=== PATIENT | male | born 1945 | race Caucasian/White ===

== ENCOUNTER → 2023-10-18 15:45 | Outpatient (REF) | payer MEDICARE, BC, SELFPAY | LOC: DHCBS HW 15:45 | PROVIDERS: ATTENDING PHYSICIAN Internal Medicine Cardiovascular Disease; FAMILY PHYSICIAN Family Medicine | DX: I50.22 Chronic systolic (congestive) heart failure (principal); I42.9 Cardiomyopathy, unspecified; I35.0 Nonrheumatic aortic (valve) stenosis | CPT/HCPCS: 93306 ==

== ENCOUNTER → 2024-04-12 13:46 | Outpatient (REF) | payer MEDICARE, BC, SELFPAY | LOC: RCS 13:46 | PROVIDERS: ATTENDING PHYSICIAN Internal Medicine Cardiovascular Disease; FAMILY PHYSICIAN Family Medicine | DX: I35.0 Nonrheumatic aortic (valve) stenosis (principal) | CPT/HCPCS: 93306 ==

== ENCOUNTER → 2024-09-08 13:37 | Outpatient (REF) | payer MEDICARE, BC, SELFPAY | LOC: RAD 13:37 | PROVIDERS: ATTENDING PHYSICIAN Family Medicine | DX: I50.22 Chronic systolic (congestive) heart failure (principal) | CPT/HCPCS: 71046 ==

== ENCOUNTER 2024-09-11 14:16 | Inpatient (IN) | payer MEDICARE, BC, SELFPAY ==
[2024-09-11] VITALS (26 sets, daily range): BP systolic 84–121; BP diastolic 33–76; BMI 31.9; BMI 29.0
--- NOTE | 2024-09-11 10:35 | ED.GENMED ---
ED Provider Triage
<Tori Lopez PA-C - Last Filed: 09/11/24 10:52>
-
Patient seen by provider in Triage?: Seen in Triage
78 y/o M
h/o iron deficiencey anemia
sent by PCP for low hg
uknonwn number, he was called by PCP to come in
intermittently sob but no CP
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
will w/u with labs, t+s;
hypotensive in triage
anticipate admission, transfusione
pt is pale
awake and aelrt
hypotensive
History of Present Illness
<Tori Lopez PA-C - Last Filed: 09/11/24 10:52>
General
Chief Complaint: Abnormal Lab Value
Time Seen by Provider: 09/11/24 12:37
<Shahbaz Lopez PA-C - Last Filed: 09/11/24 13:46>
General
Source: patient
History of Present Illness
History of Present Illness:
78-year-old male with past medical history of previous [place], hypertension hyperlipidemia, status post pacemaker/defibrillator placement, insulin-dependent diabetes presenting to the ED at request of PCP due to gradually worsening SAINI and fatigue since
this past . Started on iron supplement Wednesday with no relief. He does note his stools have been darker since starting the iron. Denies any fevers, chills, or infectious symptoms. Also denying any chest pain, palpitations, abdominal pain,
vomiting. Patient does believe he has received a blood transfusion in the past and notes that he has definitely had iron infusions before. He has no other concerns at this time.
Past History
<RALPH Black Last Filed: 09/11/24 10:52>
Past History
ED Past Medical History: Arrthythmia (atrial fibrillation), CAD, CHF, HTN, Hypercholesterolemia, NIDDM, [place], Renal failure and Other (Carotid stenosis, gout, BPH, recurrent epistaxis)
ED Past Surgical History: Cardiac (CABG, PTCA with stent), Cholecystectomy and Other (Carotid endarterectomy)
Social History
Tobacco: Smoker
Alcohol: None
Drug: None
Personal:
Living: with family
Employment: Retired
Family History
Family History: Other (Noncontributory)
Review of Systems
<Shahbaz Lopez PA-C - Last Filed: 09/11/24 13:46>
Review of Systems
All Other Systems: ROS reviewed and negative except as documented in HPI and ROS
Phy Exam
<Shahbaz Lopez PA-C - Last Filed: 09/11/24 13:46>
Physical Exam
Physical Exam:
GENERAL: Alert , in no apparent distress
EYE: clear conjunctiva b/l
HEAD: NCAT
ENT: o/p clr, mmm.
CARDIAC: Regular rate and rhythm .
LUNGS: Clear breath sounds bilaterally, no acute respiratory distress, no wheezes/rales/rhonchi
ABDOMEN: Soft, without focal tenderness, no r/g, no cvat
RECTAL: chaperroned by ED RN Raul, soft light black stool, heme pos, no external hemorrhoids noted
NEUROLOGICAL: Alert and oriented
SKIN: Warm and dry, skin intact.
MUSCULOSKELETAL: well perfused.
PSYCH: Normal and appropriate interaction.
Scores
<Shahbaz Lopez PA-C - Last Filed: 09/11/24 13:46>
Heart Failure Risk
Heart Failure Risk Score: Not Applicable
Heart Score for Chest Pain Patients
STEMI patient?: Not applicable
Withdrawal Assessment of Alcohol
Withdrawal Assessment Completed?: Not applicable
Course
<Tori Lopez PA-C - Last Filed: 09/11/24 10:52>
Orders/Labs/Results
Orders:
Orders
09/11/24 10:38
Electrocardiogram (*1) Urgent
Reason for Study: Shortness of Breath
EKG- Treatment ONCE
09/11/24 10:55
Type+Screen Urgent
Complete Blood Count/With Diff Urgent
Comprehensive Metabolic Panel Urgent
Ferritin Urgent
Iron Urgent
TIBC [Total Iron Binding] Urgent
09/11/24 12:51
Blood Bank Products [* Blood Bank Products] Urgent
Blood Bank Products: *Packed RBC Leuko(PRBC's)
Quantity: 2
Transfuse Today: Yes
Reason: Anemia
09/11/24 13:16
GASTROINTESTINAL CONSULT Routine
Consulting Provider: Margarita Pinzon
Was physician already notified: Yes
09/11/24 13:30
Admit/Transfer Patient As Directed
Co-Sign Provider:
Level of Care: Inpatient admission
Assign to:: Telemetry
Physician / Group: Jomar/hospitalist
Diagnosis: anemia
Reason for Telemetry: Arrhythmia
Date to Stop Telemetry: 09/14/24
Time to Stop Telemetry: 11:00
Reason for Hospitalization: anemia
Expected length of stay greater than two midnights?: Yes
ELOS- Estimated Length of Stay in days: 3
I certify the patient meets the requirements for IP care: Yes
PRN Pain Medication Management As Directed
May give lesser potent ordered pain med per pt: Yes
preference::
Protocol:: Medication orders for pain may be administered in a
manner that supports deferring to patient preference
when the pt is:
- Requesting an ordered lesser potent pain medication.
Least to most potent pain medications are defined
as: acetaminophen < NSAID < tramadol < opioids
(morphine, oxycodone, hydromorphone).
- Requesting a lesser dose of the same medication IF
ORDERED.
- Requesting a less intrusive route of administration
if both routes are prescribed by the provider (PO <
IV).
09/11/24 13:32
Code Status As Directed
Resuscitation Status: Full Code
09/14/24 11:00
DC Protocol for Telemetry ONCE
Abnormal Lab Results
09/11/24
10:55
RBC 1.96 L 10^6/uL
(4.70-6.10)
Hgb 7.1 L g/dL
(13.0-18.0)
Hct 22.8 L %
(39.0-52.0)
MCV 116.3 H fL
(80.0-94.0)
MCH 36.2 H pg
(27.0-31.0)
MCHC 31.1 L g/dL
(33.0-37.0)
RDW 18.2 H %
(11.5-14.5)
Abs Immat Gran (auto) 0.1 H 10^3/uL
(0-0.05)
Absolute Monos (auto) 0.8 H 10^3/uL
(0.1-0.6)
Immature Gran % 0.8 H %
(0-0.5)
Lymphocytes % 20.0 L %
(20.5-51.1)
Monocytes % 9.9 H %
(1.7-9.3)
Sodium 129 L mmol/L
(135-145)
Chloride 94 L mmol/L
(98-107)
BUN 97 H mg/dl
(9-20)
Creatinine 2.5 H mg/dL
(0.7-1.3)
Glucose 164 H mg/dl
(70-99)
Iron 47 L ug/dl
(49-181)
% Saturation 13 L %
(20-50)
Total Protein 5.7 L g/dl
(6.3-8.2)
Albumin 3.2 L g/dl
(3.5-5.0)
Crossmatch IS Only See Detail
09/11/24 10:55
09/11/24 10:55
Vital Signs
Initial and Last Documented VS:
Initial Vital Signs
Temp Pulse Resp Pulse Ox
97.5 F 64 16 100
09/11/24 10:33 09/11/24 10:33 09/11/24 10:33 09/11/24 10:33
Last Documented Vital Signs
Temp Pulse Resp BP Pulse Ox
98 F 61 24 108/63 98
09/11/24 13:34 09/11/24 13:34 09/11/24 13:34 09/11/24 13:34 09/11/24 13:34
<Shahbaz Lopez PA-C - Last Filed: 09/11/24 13:46>
Orders/Labs/Results
Orders:
Orders
09/11/24 10:38
Electrocardiogram (*1) Urgent
Reason for Study: Shortness of Breath
EKG- Treatment ONCE
09/11/24 10:55
Type+Screen Urgent
Complete Blood Count/With Diff Urgent
Comprehensive Metabolic Panel Urgent
Ferritin Urgent
Iron Urgent
TIBC [Total Iron Binding] Urgent
09/11/24 12:51
Blood Bank Products [* Blood Bank Products] Urgent
Blood Bank Products: *Packed RBC Leuko(PRBC's)
Quantity: 2
Transfuse Today: Yes
Reason: Anemia
09/11/24 13:16
GASTROINTESTINAL CONSULT Routine
Consulting Provider: aMrgarita Pinzon
Was physician already notified: Yes
09/11/24 13:30
Admit/Transfer Patient As Directed
Co-Sign Provider:
Level of Care: Inpatient admission
Assign to:: Telemetry
Physician / Group: Jomar/hospitalist
Diagnosis: anemia
Reason for Telemetry: Arrhythmia
Date to Stop Telemetry: 09/14/24
Time to Stop Telemetry: 11:00
Reason for Hospitalization: anemia
Expected length of stay greater than two midnights?: Yes
ELOS- Estimated Length of Stay in days: 3
I certify the patient meets the requirements for IP care: Yes
PRN Pain Medication Management As Directed
May give lesser potent ordered pain med per pt: Yes
preference::
Protocol:: Medication orders for pain may be administered in a
manner that supports deferring to patient preference
when the pt is:
- Requesting an ordered lesser potent pain medication.
Least to most potent pain medications are defined
as: acetaminophen < NSAID < tramadol < opioids
(morphine, oxycodone, hydromorphone).
- Requesting a lesser dose of the same medication IF
ORDERED.
- Requesting a less intrusive route of administration
if both routes are prescribed by the provider (PO <
IV).
09/11/24 13:32
Code Status As Directed
Resuscitation Status: Full Code
09/14/24 11:00
DC Protocol for Telemetry ONCE
Abnormal Lab Results
09/11/24
10:55
RBC 1.96 L 10^6/uL
(4.70-6.10)
Hgb 7.1 L g/dL
(13.0-18.0)
Hct 22.8 L %
(39.0-52.0)
MCV 116.3 H fL
(80.0-94.0)
MCH 36.2 H pg
(27.0-31.0)
MCHC 31.1 L g/dL
(33.0-37.0)
RDW 18.2 H %
(11.5-14.5)
Abs Immat Gran (auto) 0.1 H 10^3/uL
(0-0.05)
Absolute Monos (auto) 0.8 H 10^3/uL
(0.1-0.6)
Immature Gran % 0.8 H %
(0-0.5)
Lymphocytes % 20.0 L %
(20.5-51.1)
Monocytes % 9.9 H %
(1.7-9.3)
Sodium 129 L mmol/L
(135-145)
Chloride 94 L mmol/L
(98-107)
BUN 97 H mg/dl
(9-20)
Creatinine 2.5 H mg/dL
(0.7-1.3)
Glucose 164 H mg/dl
(70-99)
Iron 47 L ug/dl
(49-181)
% Saturation 13 L %
(20-50)
Total Protein 5.7 L g/dl
(6.3-8.2)
Albumin 3.2 L g/dl
(3.5-5.0)
Crossmatch IS Only See Detail
09/11/24 10:55
09/11/24 10:55
Vital Signs
Initial and Last Documented VS:
Initial Vital Signs
Temp Pulse Resp Pulse Ox
97.5 F 64 16 100
09/11/24 10:33 09/11/24 10:33 09/11/24 10:33 09/11/24 10:33
Last Documented Vital Signs
Temp Pulse Resp BP Pulse Ox
98 F 61 24 108/63 98
09/11/24 13:34 09/11/24 13:34 09/11/24 13:34 09/11/24 13:34 09/11/24 13:34
<Shahbaz Lopez PA-C - Last Filed: 09/11/24 13:46>
MDM/Problems Addressed
Differential Diagnosis Includes:
Upper versus lower GI bleed, thrombocytopenia, malignancy, anemia of chronic disease, CHF, angina
MDM/Problems Addressed:
78-year-old male presenting to the ER for evaluation of gradually worsening exertional dyspnea and fatigue over the last 4 days, started on iron supplementation and has since noted dark stools. Patient with noted hypotension on arrival in triage,
somewhat improved during my exam. No tachycardia. Patient does have bilateral lower extremity edema which she reports is chronic. Rectal exam showed black stool that was heme positive. I suspect GI bleed to be the cause of patient's current
symptoms. Increased risk for malignancy due to 60+ pack years smoking. Last had colonoscopy in 2019 which did show a couple of rectal and sigmoid polyps. Will consent patient for blood products. Will notify GI. Patient did not take his Xarelto
today and advised he not take this. Cardiology will need to be consulted. Patient to be admitted.
Chronic conditions affecting care: CAD and Kidney disease
<Shahbaz Lopez PA-C - Last Filed: 09/11/24 13:46>
*Pulse Oximetry
Patient hypoxic: no
*Payroll Representative Interpretation
Rate: normal
Rhythm: av sequential
*Critical Care Note
Total Time (30-74mins, 75-104mins- exclusive of procedures): 30
comment:
Critical care statement: A total of 30 minutes of critical care time was provided for this patient. This includes management of unstable vital signs, evaluation of the patient at bedside, reviewing the patient's pertinent medical records, discussion
with consultants, review of old EKGs and review of pertinent medical records. This time with separate from time utilized to perform the aforementioned documented procedures
Data Reviewed
Review of Other/Old Records Reveals: Labs and Records
Source: patient and records
<Shahbaz Lopez PA-C - Last Filed: 09/11/24 13:46>
Patient Management
Discussion with other providers: Hospitalist and Secretary Specialist
Escalation/DeEscalation of care consider admission/obs:
Hospitalist team accepts for continued evaluation and treatment. GI team was also notified and will see the patient in consult
ED Attending Note
<Tori Lopez PA-C - Last Filed: 09/11/24 10:52>
-
Portions of this chart may have been created with voice recognition software.� Occasional wrong word or��sound alike� substitutions may have occurred due to the inherent limitations of voice recognition software.
Discharge Plan
Departure
Patient Disposition: Admit
Date of Disposition: 09/11/24
Time of Disposition: 12:58
Presentation/result/management discussed w/ accepting MD/DO: Hospitalist
Discharge Problem:
Anemia, CKD (chronic kidney disease)
Prescriptions:
No Action
nitroglycerin [Nitrostat] 0.4 MG tablet, sublingual
0.4 mg sublingual [id number] PRN (Reason: chest pain)
Patient Comments:
pt has not needed
allopurinol 100 MG tablet
150 mg PO BID
carvedilol 6.25 MG tablet
3.125 mg PO BID
cyanocobalamin (vitamin B-12) 1,000 MCG tablet
1,000 mcg PO DAILY
atorvastatin 80 mg Tablet
80 mg PO DAILY
brinzolamide 1 % drops,suspension
1 drp BOTH EYES BID@1200,2200
acetaminophen 500 mg Tablet
500 mg PO DAILYPRN PRN (Reason: pain)
ferrous sulfate 325 mg (65 mg iron) Tablet
325 mg PO DAILY@1600
betamethasone dipropionate 0.05 % cream
1 applic TOPICAL BID
furosemide 80 mg Tablet
80 mg PO BID@0800,1600
Vegetable Pill Otc
1 tab PO DAILY
metolazone 2.5 mg Tablet
2.5 mg PO DAILY@1530
spironolactone 25 mg tablet
12.5 mg
colchicine 0.6 mg tablet
0.6 mg PO DAILYPRN PRN (Reason: GOUTY ATTACK)
vitamin E 268 mg (400 unit) Capsule
268 mg PO DAILY
insulin lispro [Admelog SoloStar U-100 Insulin] 100 unit/mL insulin pen
16 - 18 unit SC AC
insulin glargine [Lantus Solostar U-100 Insulin] 100 unit/mL (3 mL) Insulin Pen
20 unit SC HS
apixaban 5 mg Tablet
5 mg PO BID
potassium chloride 20 mEq tablet extended release
40 meq PO BID@0800,1200
fexofenadine 180 mg Tablet
180 mg PO DAILYPRN PRN (Reason: ALLERGIES)
mupirocin 2 % ointment
1 applic TOPICAL BID
potassium chloride 20 mEq tablet extended release
20 meq PO DAILY@1800
Interventions
Interventions:
*Risk Screen - Suicide Last Done: 09/11/24 12:53
*General Assessment Last Done: 09/11/24 12:53
*Neglect/Abuse Screening Last Done: 09/11/24 12:53
Discharge Date and Time
Print Language: UPPER SORBIAN
[2024-09-11 11:05] LABS: % Basophils 0.5 % (0-2); % Eosinophils 2.3 % (0-6); % Immature Granulocytes 0.8 % (0-0.5); % Monocytes 9.9 % (1.7-9.3); % Neutrophils 66.5 % (42.2-75.2); Absolute Eosinophils 0.2 10^3/uL (0-0.7); Absolute Immature Granulocytes 0.1 10^3/uL (0-0.05); Absolute Lymphocytes 1.7 10^3/uL (1.2-3.4); Absolute Monocytes 0.8 10^3/uL (0.1-0.6); Absolute Neutrophils 5.5 10^3/uL (1.4-6.5); Hematocrit 22.8 % (39.0-52.0); Hemoglobin 7.1 g/dL (13.0-18.0); Mean Corp Hgb Conc. 31.1 g/dL (33.0-37.0); Mean Corpuscular Hgb 36.2 pg (27.0-31.0); Mean Corpuscular Volume 116.3 fL (80.0-94.0); Mean Platelet Volume 9.3 fL (7.4-10.4); Nucleated Red Blood Cells % 0.4 % (-); Platelet Count 179 10^3/uL (130-400); Red Blood Cell Count 1.96 10^6/uL (4.70-6.10); Red Cell Dist. Width 18.2 % (11.5-14.5); White Blood Cell Count 8.3 10^3/uL (4.8-10.8)
[2024-09-11 11:26] LABS: ALT (SGPT) 19 U/L (0-50); AST (SGOT) 28 U/L (17-59); Albumin 3.2 g/dl (3.5-5.0); Alkaline Phosphatase 79 U/L (38-126); Blood Urea Nitrogen 97 mg/dl (9-20); Carbon Dioxide 24 mmol/L (22-30); Chloride 94 mmol/L (98-107); Glucose 164 mg/dl (70-99); Iron 47 ug/dl (49-181); Potassium 4.4 mmol/L (3.5-5.1); Sodium 129 mmol/L (135-145); Total Bilirubin 0.4 mg/dl (0.2-1.3); Total Protein 5.7 g/dl (6.3-8.2); eGFR 25.65
[2024-09-11 11:35] LABS: Percent Saturation 13 % (20-50); Total Iron Binding Capacity 354 ug/dl (261-462)
--- NOTE | 2024-09-11 13:06 | HPS.HSE ---
Family Physician
-
Family Physician:
Chief Complaint
-
Dyspnea on exertion
Abnormal outpatient blood work
History of Present Illness
HPI: 78 y/o M with PMH iron deficiency anemia, CHF, ICD in place, severe aortic stenosis, cardiac bypass surgery, HLD, A fib on Xarelto; who was sent in by PCP for low Hgb.
He stated that he has been ill for the past month, first with dental infection, then ear infection, then UTI.
He c/o intermittently SOB, and endorsed to bloody bowel movement recently. He had routine CBC checked with his PCP, and was prompted to come to the ED for low hemoglobin.
Medical History
Past Medical History
Past Medical History: Reports Other
Additional Past Medical History:
atrial fib
coronary artery disease
chf
htn
hld
IDDM
[place]
carotid stenosis
GOUT
BPH
Severe aortic stenosis
Past Surgical History: Reports Other
Additional Past Surgical History:
CABG
stent
cholecystectomy
carotid stenosis
endarectomy
Social History
Tobacco: Smoker (1 pack daily)
Alcohol: Occasional
Drug: None
Personal: Single
Living: With Family
Family History
Family History: Not pertinent
Allergies / Home Medications
Allergies reflects when Allergies were last updated in [facility].
Home Medications with original date entered in [facility]
Allergy/Medication List:
Medications on admission are unable to be verified or confirmed at this time.
Review of Systems
-
Abdomen/GI: Reports See HPI and Black Stools; Denies Abdominal Pain
Physical Exam
Vital Signs
Vital Signs
Temp Pulse Resp BP Pulse Ox
36.4 C 60 27 96/50 98
09/11/24 10:33 09/11/24 12:45 09/11/24 12:45 09/11/24 12:43 09/11/24 12:45
Physical Exam
General: Well Developed, Well Nourished, No Apparent Distress, Comfortable and Conversant
HEENT: NormoCephalic, Moist mucous membranes and Atraumatic
Respiratory: Clear and Non Labored Respirations; No Accessory Resp Muscle Use
Cardiac: S1/S2 and Regular Rhythm; No Murmur or Rub
GI: Soft, Non Tender, Non Distended and Normal Bowel Sounds; No Organomegaly
Rectal: Deferred by Provider
Musculoskeletal: No Clubbing, No Cyanosis, Edema, Left Lower Extremity and Edema, Right Lower Extremity
Skin: No Rash
Neuro: Awake and Alert
Psych: Calm and Intact Judgment/Insight
Laboratory Results
-
09/11/24 10:55
09/11/24 10:55
Laboratory Results
Total Bilirubin 0.4 mg/dl (0.2-1.3) 09/11/24 10:55
AST 28 U/L (17-59) 09/11/24 10:55
ALT 19 U/L (0-50) 09/11/24 10:55
Alkaline Phosphatase 79 U/L (38-126) 09/11/24 10:55
Data Reviewed
-
Lab Data: Labs Reviewed by me
Impression/Plan
-
HPI: 78 y/o M with PMH iron deficiency anemia, CHF, ICD in place, severe aortic stenosis, cardiac bypass surgery, HLD, A fib on Xarelto; who was sent in by PCP for low Hgb.
He stated that he has been ill for the past month, first with dental infection, then ear infection, then UTI.
He c/o intermittently SOB, and endorsed to bloody bowel movement recently. He had routine CBC checked with his PCP, and was prompted to come to the ED for low hemoglobin.
Patient was noted to be hypotensive in the ER initially. His blood pressure improved subsequently. 2 units PRBC ordered for hemoglobin at 7.1.
A/P:
# Symptomatic anemia, possible GI bleed exacerbated by MACHINE ICER Xarelto use
# Iron deficiency anemia
Hemoglobin 7.1, from baseline 9.0
2 unit PRBC ordered
IV iron
GI consulted
Clears for now
Hold prior to admission Xarelto
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
Hold prior to admission Aldactone
Monitor serum creatinine with transfusion
# Hypertension
Improved hypotension from admission
Continue prior to admission Coreg with holding parameter
Monitor blood pressure
# Presumed paroxysmal A-fib on Xarelto MACHINE ICER
# Chronic systolic CHF
# ICD in place
# Severe aortic stenosis
Continue prior to admission Lasix 80 mg twice daily, use IV while in the hospital
# HLD
Lipitor
# Insulin-dependent diabetes
Continue prior to admission Lantus at decreased dose 7 units at bedtime
Cover with sliding scale
DVT ppx: SCD
FC
--- NOTE | 2024-09-11 13:39 | CON.GI ---
Addendum entered and electronically signed by Margarita Galloway Do, MD 09/11/24 16:07:
I saw and examined the patient.
The WIRE DRAWING SETTER's note was reviewed and I agree with the note.
Comment: is a 78yo M with h/o afib on xarelto, , CAD and DM who was told to come to ER by PCP for anemia. In Nov he had tooth infection, then ear infection then UTI. He was on abx and not feeling well. He was seen by PCP Dr Eason who
asked him to come in when noted to be anemic He denies seeing any red or black blood in stools. He of note has h/o iron def anemia in the past for which he's had EGD/colon/capsule in 2017 and more recently by myself EGD/colon 2019. Vitals
reviewed was hypotensive in ER but improved with IVF. blue bleb on lip. NTTP large scar seen. Labs reviewed macrocytic anemia noted.
Impression
- Anemia with FOBT+ stool
Given recurrent h/o anemia and suspect AVMs
Other consideration is ulcer, polyp or ectasia
- Chronic anticoagulation (xarelto last 1/5 PM)
- CAD
- DM
- Pacemaker
- CKD
- HL
- Tobacco use
Recommendations
- Hold AC
- Serial H/H consider transfusion
- IV protonix BID
- CLD
- Plan for EGD/colonoscopy after washout on Wednesday
- Given recurrent issues with GI blood loss consider watchman outpatient bais
Will follow with you
Original Note:
Consultation
-
Date/Time Consultation Requested: 09/11/24
Date/Time Consultation Performed: 09/11/24 1330
Requesting Provider: Dr. Hadley / Shahbaz Lopez PA-C
Performing Provider: Dr. Margarita Pinzon / Naima Ramon PA-C
Reason for Consultation: anemia
Medical History
Chief Complaint / HPI
Chief Complaint: fatigue
History of Present Illness:
This is a 78 year old male with a past medical history of atrial fibrillation (on Xarelto), CAD (s/p CABG, stent), pacemaker/defibrillator, , CHF, DM, HTN, CKD, hyperlipidemia, iron deficiency anemia, tobacco use, and colon polyps who presented to
the ER with worsening fatigue and dyspnea on exertion. He denies any melena or BRBPR, and no abdominal pain. He did complain of mild nausea, no vomiting, heartburn/reflux or dysphagia. He felt increasingly fatigued and lightheaded, but denies
syncope or chest pain. He also denies any fever or chills. Patient was noted to be hypotensive in the ER with hemoglobin of 7.1, with macrocytic indices. Patient had an endoscopy in 2022 which showed a hiatal hernia, but was otherwise normal.
Colonoscopy in 2019 showed multiple small polyps (hyperplastic and 1 tubular adenoma). He has a history of MELANIE, with full workup of EGD/colonoscopy/capsule that was negative in 2016. His last dose of Xarelto was yesterday, 09/10/24. He denies any
NSAID or alcohol use. He does smoke 1 PPD.
Past Medical History
Past Medical History: Arrhythmias (atrial fibrillation), CAD, CHF, HTN, Hypercholesterolemia, NIDDM, Valvular Disease (aortic stenosis) and Other (CAD (s/p CABG), pacemaker/defibrillator, carotid stenosis, gout, CKD, BPH, recurrent epistaxis, iron
deficiency anemia, tobacco use, colon polyps)
Past Surgical History: Cardiac (s/p CABG, stent; cardiac pacemaker-defibrillator), Cholecystectomy and Other (carotid endarterectomy)
Social History
Tobacco: Smoker (1 pack per day)
Alcohol: None
Drug: None
Personal:
Living: With Family
Employment: Retired
Family History
Family History: Other (No family history of any GI malignancies)
Allergies / Home Medications
Allergy/AdvReac Type Severity Reaction Status Date / Time
rosiglitazone [From Avandia] Allergy Unknown Unknown Verified 01/18/23 08:24
grass pollen Allergy SNEEZING Verified 01/01/23 10:29
ragweed pollen Allergy NASAL Verified 01/01/23 10:29
CONGESTION
�Medication �Instructions �Recorded
nitroglycerin 0.4 mg sublingual 0.4 mg sublingual [id number] PRN 10/12/12
tablet (Nitrostat) chest pain
allopurinol 100 mg tablet 150 mg PO BID 08/04/16
carvedilol 6.25 mg tablet 6.25 mg PO BID 02/27/17
cyanocobalamin (vitamin B-12) 1,000 mcg PO DAILY 10/04/19
1,000 mcg tablet
acetaminophen 500 mg tablet 500 mg PO DAILYPRN PRN pain 01/01/23
atorvastatin 80 mg tablet 80 mg PO DAILY High cholesterol 01/01/23
betamethasone dipropionate 0.05 % 1 applic topical DAILY BOTH KNEES 01/01/23
topical cream
brinzolamide 1 % eye 1 drp BOTH EYES BID@1200,2200 01/01/23
drops,suspension
ferrous sulfate 325 mg (65 mg 325 mg PO DAILY@1600 01/01/23
iron) tablet
insulin detemir U-100 100 unit/mL 15 unit SC HS 01/01/23
(3 mL) subcutaneous pen (Levemir
FlexPen)
mupirocin 2 % topical ointment 1 applic topical DAILY TO WOUND ON 01/01/23
LEFT LEG
pantoprazole 40 mg tablet,delayed 40 mg PO DAILY #30 tabs 01/06/23
release
Vegetable Pill Otc 1 tab PO DAILY 01/18/23
furosemide 80 mg tablet 80 mg PO BID 01/18/23
apixaban 5 mg tablet 5 mg PO BID 09/11/24
ascorbic acid (vitamin C) 250 mg 250 mg PO DAILY 09/11/24
tablet (Vitamin C)
colchicine 0.6 mg tablet mg 09/11/24
fluticasone propionate 50 intranasal 09/11/24
mcg/actuation nasal
spray,suspension
insulin glargine 100 unit/mL (3 unit SC HS 09/11/24
mL) subcutaneous pen (Lantus
Solostar U-100 Insulin)
insulin lispro 100 unit/mL SC 09/11/24
subcutaneous pen (Admelog SoloStar
U-100 Insulin lispro)
metolazone 2.5 mg tablet 2.5 mg PO DAILY 09/11/24
potassium chloride 20 mEq 100 meq PO 09/11/24
tablet,extended release
spironolactone 25 mg tablet 12.5 mg 09/11/24
vitamin E 268 mg (400 unit) capsule 268 mg PO DAILY 09/11/24
Review of Systems
-
History Source: Patient
All other systems: A 12 pt ROS was Negative except as stated above in HPI
Vital Signs
Temp Pulse Resp BP Pulse Ox
98 F 61 24 108/63 98
09/11/24 13:34 09/11/24 13:34 09/11/24 13:34 09/11/24 13:34 09/11/24 13:34
Physical Exam
Exam
General: Well Developed, Well Nourished and No Apparent Distress
Respiratory: Clear
Cardiac: Regular Rhythm
GI: Soft, Non Tender, Non Distended and Normal Bowel Sounds
Rectal: Other (ER rectal exam showed black, heme positive stool, with no external hemorrhoids noted)
Skin: Warm and Dry
Neuro: AO x 3
Psych: Calm
Results
WBC 8.3 10^3/uL (4.8-10.8) 09/11/24 10:55
Hgb 7.1 g/dL (13.0-18.0) L 09/11/24 10:55
Hct 22.8 % (39.0-52.0) L 09/11/24 10:55
MCV 116.3 fL (80.0-94.0) H 09/11/24 10:55
Plt Count 179 10^3/uL (130-400) 09/11/24 10:55
Absolute Neuts (auto) 5.5 10^3/uL (1.4-6.5) 09/11/24 10:55
Sodium 129 mmol/L (135-145) L 09/11/24 10:55
Potassium 4.4 mmol/L (3.5-5.1) 09/11/24 10:55
Chloride 94 mmol/L (98-107) L 09/11/24 10:55
Carbon Dioxide 24 mmol/L (22-30) 09/11/24 10:55
BUN 97 mg/dl (9-20) H 09/11/24 10:55
Creatinine 2.5 mg/dL (0.7-1.3) H 09/11/24 10:55
Calcium 9.0 mg/dl (8.4-10.2) 09/11/24 10:55
Total Bilirubin 0.4 mg/dl (0.2-1.3) 09/11/24 10:55
AST 28 U/L (17-59) 09/11/24 10:55
ALT 19 U/L (0-50) 09/11/24 10:55
Alkaline Phosphatase 79 U/L (38-126) 09/11/24 10:55
Diagnostic Image Results:
Prior GI Procedures:
EGD:
01/04/2023: Dr Hidalgo
Indication: MELANIE, heme positive stools on Xarelto
A 3 cm hiatal hernia was present.
The exam of the esophagus was otherwise normal.
The esophagus was normal.
The examined duodenum was normal.
06/30/2019: Dr Pinzon
Indication: MELANIE
Normal esophagus.
- 2 cm hiatal hernia.
- Erythematous mucosa in the antrum. Biopsied.
- Normal duodenal bulb, first portion of the duodenum
and second portion of the duodenum. Biopsied.
Biopsies: negative for H pylori, no evidence of celiac disease.
Colonoscopy:
06/20/2019: Dr. Pinzon
Indication: MELANIE
The examined portion of the ileum was normal.
- Four diminutive polyps in the rectum, removed with a
jumbo cold forceps. Resected and retrieved. (BX: hyperplastic)
- One 2 to 4 mm polyp in the sigmoid colon, removed with
a jumbo cold forceps. Resected and retrieved. (BX: tubular adenoma)
- Diverticulosis in the sigmoid colon.
- Non-bleeding internal hemorrhoids.
Assessment / Plan
-
78 year old male with a fib (on Xarelto), CAD (s/p CABG, stent), pacemaker/defibrillator, , CHF, DM, HTN, hyperlipidemia, CKD, iron deficiency anemia, tobacco use, and colon polyps with worsening fatigue and dyspnea on exertion, hypotensive on
arrival to ER with hemoglobin of 7.1. Baseline hemoglobin seems to be in the 8-9. He denies gross bleeding; no melena or BRBPR, but with black, heme positive stool noted on ER rectal exam. 2 units of PRBCs have been ordered and currently
transfusing. His last dose of Xarelto was yesterday, 09/10/24. He smokes 1 PPD, denies NSAID or alcohol use.
IMPRESSION / PLAN:
Anemia, acute on chronic, on anticoagulation with heme positive stool - possible UGI bleeding
- Hgb 7.1 with macrocytosis
- transfuse 2 units PRBCs
- trend hemoglobin, transfuse if falls <8 due to cardiovascular disease
- history of MELANIE, with prior negative EGD/colonoscopy/capsule
- iron studies with slightly low serum iron and %sat, normal TIBC and ferritin
- check B12/folate levels
- continue PPI
- hold Xarelto (last dose 09/10/24)
- OK for clear liquids
- to consider endoscopy allowing Xarelto washout - to discuss with Dr. Pinzon
Other medical problems managed per hospitalist.
-
-
Thank you for consultation and allowing me to participate in the patient's care. Please call the chemical production machine operator GI physician during the after hours with any questions or concerns.
[2024-09-11] MEDS: ZOFRAN 4 MG IV (16:47)
[2024-09-11 16:53] LABS: Folate 10.3 ng/ml (2.76-20)
[2024-09-11 17:21] LABS: Vitamin B12 > 1000 pg/ml (239-931)
[2024-09-11] MEDS: LASIX 80 MG IV (20:42)
[2024-09-11] MEDS: FERRLECIT 110 MG IV (20:43)
[2024-09-11] MEDS: COREG PO (20:44)
[2024-09-11] MEDS: NOVOLOG FLEXPEN-LOW RESISTANCE SC (20:44)
[2024-09-11] MEDS: PROTONIX IV 40 MG IV (20:45)
[2024-09-11] MEDS: ZYLOPRIM 150 MG PO (20:46)
[2024-09-11] MEDS: NSS (PRESERVATIVE FREE) 10 ML IV (20:46)
--- NOTE | 2024-09-11 22:00 | PTCARENOTE ---
Patient received from ED via stretcher. Patient ambulated to bed with assistance, unsteady gait noted. Bed alarm placed on bed. Patient placed on insurance collector #[id number]. Patient denies any pain or SOB. POC reviewed with patient and all questions
answered. Call be with in reach. Care ongoing, will continue to monitor.
[2024-09-11] MEDS: NICODERM TRANSDERMAL 21 MG TRANSDERM (22:19)
[2024-09-11 22:22] LABS: Glucose - Point of Care 254 mg/dl (70-99)
[2024-09-11] MEDS: LANTUS 0.07 UNITS SC (22:22)
[2024-09-11] MEDS: AZOPT 1% OPHTHALMIC SUSPENSION BOTH EYES (22:35)
[2024-09-12 00:21] VITALS: BMI 29.0
[2024-09-12 02:28] VITALS: BP 128/58; BP 81/42; BP 91/52; PULSE 62; PULSE 74; PULSE 80
--- NOTE | 2024-09-12 03:30 | PTCARENOTE ---
Patient with positive orthostatic BP. Patient asymptomatic with orthostasis. ANASTACIO Berumen notified. Will continue to monitor, care ongoing.
[2024-09-12 06:00] VITALS: BMI 29.0
[2024-09-12 07:32] LABS: Mean Corpuscular Volume 104.6 fL (80.0-94.0)
[2024-09-12 07:34] LABS: Hematocrit 27.4 % (39.0-52.0); Mean Corp Hgb Conc. 32.8 g/dL (33.0-37.0); Mean Corpuscular Hgb 34.4 pg (27.0-31.0); Mean Platelet Volume 9.8 fL (7.4-10.4); Platelet Count 166 10^3/uL (130-400); Red Blood Cell Count 2.62 10^6/uL (4.70-6.10); Red Cell Dist. Width 23.9 % (11.5-14.5); White Blood Cell Count 7.6 10^3/uL (4.8-10.8)
[2024-09-12 07:49] LABS: Blood Urea Nitrogen 95 mg/dl (9-20); Calcium 9.1 mg/dl (8.4-10.2); Carbon Dioxide 28 mmol/L (22-30); Chloride 93 mmol/L (98-107); Estimated Creatinine Clearance 23 ml/min; Glucose 125 mg/dl (70-99); Magnesium 1.9 mg/dl (1.6-2.3); Potassium 3.4 mmol/L (3.5-5.1); Sodium 130 mmol/L (135-145); eGFR 28.35
[2024-09-12 07:55] VITALS: BP 111/53; BP 113/46; BP 125/51; PULSE 61; PULSE 72; PULSE 74
[2024-09-12 08:07] LABS: Glucose - Point of Care 163 mg/dl (70-99)
[2024-09-12] MEDS: NICODERM TRANSDERMAL 21 MG TRANSDERM (08:32)
[2024-09-12] MEDS: NSS (PRESERVATIVE FREE) 10 ML IV ×2 (08:33→19:38)
[2024-09-12] MEDS: LASIX 80 MG IV (08:33)
[2024-09-12] MEDS: COREG 6.25 MG PO ×2 (08:33→19:38)
[2024-09-12] MEDS: LIPITOR 80 MG PO (08:33)
[2024-09-12] MEDS: PROTONIX IV 40 MG IV ×2 (08:33→19:38)
[2024-09-12] MEDS: ZYLOPRIM 150 MG PO ×2 (08:34→19:39)
[2024-09-12 08:40] LABS: Glycohemoglobin (HgbA1c) 5.2 % (4.0-5.6)
[2024-09-12] MEDS: NOVOLOG FLEXPEN-LOW RESISTANCE 1 UNITS SC (08:49)
[2024-09-12 10:57] VITALS: BP 110/48; BP 73/45; PULSE 66; PULSE 77
--- NOTE | 2024-09-12 11:51 | W.PN.HOSP.TC ---
Addendum entered and electronically signed by Lisa Hadley MD 09/12/24 13:01:
A/P:
# Anemia secondary to aortic stenosis/GI bleed/Xarelto
Hgb 7.1 on admission, received 2 PRBC, Hgb responded appropriately and improved to 9
Iron panel suggest iron deficiency, B12 and folate WNL
Started IV iron, cont
GI on board, plan for EGD/colonoscopy on Friday, September 13, 2024
continue to hold prior to admission Eliquis
# JAY on CKD stage IV, likely cardiorenal syndrome
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
Continue IV Lasix, decreased from 80 twice daily to 40 twice daily with orthostatic hypotension
Monitor serum creatinine, improved from 2.5 on admission to 2.3 today
# Essential hypertension
Monitor blood pressure and continue medications as able
decreased Lasix dose for orthostasis
Other medical conditions
# Chronic systolic CHF
# History of CABG/coronary artery disease/CHF -ICD in place
# Severe aortic stenosis
# Insulin-dependent diabetes mellitus
insulin sliding scale/Accu-Cheks
Lantus dose decreased to 7 units at bedtime
# HLD-continue statin
DVT ppx: SCD
Hold anticoagulation for now
CODE STATUS-full code
Original Note:
Today's Communication/Plan
-
Decrease Lasix to 40 mg IV twice daily
Colon prep today for EGD/colonoscopy tomorrow
Assessment / Plan
Assessment / Plan
Impression
Patient is a 78-year-old male with past medical history of atrial fibrillation, taking Xarelto, aortic stenosis, coronary artery disease, congestive heart failure with implantable cardiac defibrillator in place, history of CABG and diabetes mellitus
who presented to emergency due to decreased energy levels, tiredness fatigue and low hemoglobin levels, referred by his primary care physician to the ER.
No clear source of bleeding, fecal occult blood positive in stool
History of iron deficiency anemia as in past, EGD colonoscopy done in 2019 showed he had a hiatal hernia/diverticulosis. Repeat endoscopy in 2022 showed hiatal hernia.
On past workup tissue transglutaminase IgA antibody is positive. GI consulted, plan to do EGD/colonoscopy tomorrow after washout today.
Assessment/plan
# Anemia secondary to aortic stenosis/GI bleed/Xarelto
Patient's hemoglobin 7.1 on admission, received 2 packs of blood, hemoglobin 9 now
Vitamin B12 levels normal, folate levels normal
Iron studies show decreased iron, normal total iron binding capacity with decreased percentage oxygen saturation
Ferritin normal
Patient receiving IV iron and reports no bleeding
GI consult appreciated-plan to do EGD/colonoscopy on Wednesday, September 13, 2024
It appears to be anemia of chronic disease based on the iron studies
In setting of aortic stenosis and recurrent episodes of anemia it could be AVMs/ectasias
# JAY on CKD stage IV
Aldactone held prior to admission
Patient had pedal edema, that was 2+, IV Lasix started to treat volume overload
Serum creatinine decreased from 2.5-2.3
Patient has improvement in pedal edema, decreased IV Lasix to 40 mg twice daily
# Essential hypertension
Monitor blood pressure and continue medications as able
Patient has orthostasis, decreased Lasix dose, continue to monitor blood pressure
#Other medical conditions
# Chronic systolic CHF
# History of CABG/coronary artery disease/CHF -ICD in place
# Severe aortic stenosis
# Insulin-dependent diabetes mellitus -insulin sliding scale/Accu-Cheks/Lantus dose decreased to 7 units at bedtime
# HLD-continue statin
DVT ppx: SCD
Hold anticoagulation for now
CODE STATUS-full code
Anticipated Discharge: 24 - 48 hours
Subjective/Interval History
-
Date of Service: September 12, 2024
Patient feeling better today, received 2 packs of blood yesterday, and 80 mg IV Lasix yesterday, edema improved on lower extremities and patient is on clear liquid diet
Objective Data
-
Labs:
Laboratory Results
09/12/24 09/12/24
06:47 06:48
WBC 7.6
Hgb 9.0 L D
Hct 27.4 L
Plt Count 166
Sodium 130 L
Potassium 3.4 L
Chloride 93 L
Carbon Dioxide 28
BUN 95 H
Creatinine 2.3 H
Glucose 125 H
Calcium 9.1
Vital Signs:
Vital Signs
Temp Pulse Resp BP Pulse Ox
97.4 F 66 16 110/48 97
09/12/24 10:57 09/12/24 10:57 09/12/24 10:57 09/12/24 10:57 09/12/24 10:57
I&O
09/11/24 09/12/24 09/13/24
06:59 06:59 06:59
Intake Total 980 / 980
Output Total 1150 / 1150
Balance -170 / -170
Review of Systems
-
All other systems: Reviewed and negative
Physical Exam
-
General: Well Developed, Well Nourished, No Apparent Distress, Comfortable and Conversant
HEENT: Normocephalic, Atraumatic and Moist Mucous Membranes
Respiratory: Clear to Auscultation
Cardiac: Regular Rhythm and S1/S2
GI: Soft, Nontender, Nondistended and Normal Bowel Sounds
Musculoskeletal: Other (Bilateral lower extremity edema)
Neuro: Awake, Oriented and No Motor Deficits
Psych: Calm
[2024-09-12 12:03] LABS: Glucose - Point of Care 330 mg/dl (70-99)
[2024-09-12] MEDS: KCL 20 MEQ PO (13:14)
[2024-09-12] MEDS: AZOPT 1% OPHTHALMIC SUSPENSION 1 DROP BOTH EYES ×2 (13:14→22:23)
[2024-09-12] MEDS: NOVOLOG FLEXPEN-LOW RESISTANCE 4 UNITS SC (13:15)
--- NOTE | 2024-09-12 15:09 | W.PN.GI.CBS2 ---
Addendum entered and electronically signed by Ladan Mallory MD 09/12/24 16:56:
I saw and examined the patient.
The WAX ENGRAVER or PA's note was reviewed and I agree with the note.
Comment: Patient without any complaints at this time, currently on clear liquid diet
Hemoglobin stable at 9.0, did receive 2 units of packed red blood cells /
Xarelto washout done
For EGD/enteroscopy and colonoscopy tomorrow
Agree with consideration of watchman given recurrent GI bleeding since 2017
Addendum entered and electronically signed by ANASTACIO Padilla 09/12/24 15:31:
exam:
a&ox 3
RRR with some irreg beats
lung clear
no edema
abd soft non tender, non distended
Original Note:
Today's Communication / Plan
-
Etiology of anemia Given recurrent h/o anemia and suspect AVMs. Other consideration is ulcer, polyp or ectasia
- Hgb 9 today s/p transfusion
- iron studies with slightly low serum iron and %sat, normal TIBC and ferritin
- B12/folate levels stable
- continue PPI
- hold Xarelto (last dose 09/10/24)
- clear diet
plan for EGD with enteroscopy /colon 09/13 after wash out
Given recurrent issues with GI blood loss consider watchman outpatient basis
Assessment / Plan
-
78 year old male with a fib (on Xarelto), CAD (s/p CABG, stent), pacemaker/defibrillator, , CHF, DM, HTN, hyperlipidemia, CKD, iron deficiency anemia, tobacco use, and colon polyps with worsening fatigue and dyspnea on exertion, hypotensive on
arrival to ER with hemoglobin of 7.1 with macrocytosis . Baseline hemoglobin seems to be in the 8-9. He denies gross bleeding; no melena or BRBPR, but with black, heme positive stool noted on ER rectal exam. s/p 2 units of PRBCs given on admission.
. His last dose of Xarelto was, 09/10/24. with prior negative EGD/colonoscopy/capsule
is a 78yo M with h/o afib on xarelto, , CAD and DM who was told to come to ER by PCP for anemia. In Nov he had tooth infection, then ear infection then UTI. He was on abx and not feeling well. He was seen by PCP Dr Eason who asked him
to come in when noted to be anemic with hbhg 7.1. He denies seeing any red or black blood in stools. He of note has h/o iron def anemia in the past for which he's had EGD/colon/capsule in 2017 and more recently by Dr. Pinzon EGD/colon 2019. Vitals
reviewed was hypotensive in ER but improved with IVF. blue bleb on lip. NTTP large scar seen. Labs reviewed macrocytic anemia noted.
IMPRESSION / PLAN:
Impression
- Anemia with FOBT+ stool
-acute on chronic renal disease
- Chronic anticoagulation (xarelto last 09/10 PM)
-CHF
-
- CAD
- DM
- Pacemaker
- CKD
- HL
- Tobacco use
PLAN:
Etiology of anemia Given recurrent h/o anemia and suspect AVMs. Other consideration is ulcer, polyp or ectasia
- Hgb 9 today s/p transfusion
- iron studies with slightly low serum iron and %sat, normal TIBC and ferritin
- B12/folate levels stable
- continue PPI
- hold Xarelto (last dose 09/10/24)
- clear diet
plan for EGD with enteroscopy /colon 09/13 after wash out
Given recurrent issues with GI blood loss consider watchman outpatient basis
Subjective
Subjective
Date of Service: September 12, 2024
on clear diet, no stool recorded, feeling well agreeable for EGD/colon in AM
Objective
Data Reviewed
Laboratory Data:
Laboratory Results
09/12/24 06:47
09/12/24 06:48
Laboratory Results
Magnesium 1.9 mg/dl (1.6-2.3) 09/12/24 06:48
Total Bilirubin 0.4 mg/dl (0.2-1.3) 09/11/24 10:55
AST 28 U/L (17-59) 09/11/24 10:55
ALT 19 U/L (0-50) 09/11/24 10:55
Alkaline Phosphatase 79 U/L (38-126) 09/11/24 10:55
Vital Signs and I&O:
Vital Signs
Temp Pulse Resp BP Pulse Ox
97.4 F 66 16 110/48 97
09/12/24 10:57 09/12/24 10:57 09/12/24 10:57 09/12/24 10:57 09/12/24 10:57
I&O
09/11/24 09/12/24 09/13/24
06:59 06:59 06:59
Intake Total 980 / 980
Output Total 1150 / 1150
Balance -170 / -170
[2024-09-12] MEDS: FERRLECIT 110 MG IV (15:10)
[2024-09-12] MEDS: LASIX 40 MG IV (15:11)
[2024-09-12 15:22] VITALS: BP 104/64; BP 106/50; BP 94/47; PULSE 62; PULSE 65
[2024-09-12 16:42] LABS: Glucose - Point of Care 190 mg/dl (70-99)
[2024-09-12] MEDS: NULYTELY SOLUTION 4 LITERS PO (17:09)
[2024-09-12 19:19] VITALS: BP 127/59
[2024-09-12] MEDS: NOVOLOG FLEXPEN-LOW RESISTANCE SC (19:38)
[2024-09-12 22:05] LABS: Glucose - Point of Care 180 mg/dl (70-99)
[2024-09-12] MEDS: LANTUS 0.07 UNITS SC (22:24)
[2024-09-12 23:19] VITALS: BP 112/51
[2024-09-13] VITALS (8 sets, daily range): BP systolic 89–135; BP diastolic 43–59; BMI 28.5
[2024-09-13 05:08] LABS: Glucose - Point of Care 166 mg/dl (70-99)
[2024-09-13] MEDS: NOVOLOG FLEXPEN-LOW RESISTANCE 1 UNITS SC ×2 (05:08→13:03)
--- NOTE | 2024-09-13 08:05 | W.PN.HOSP.TC ---
Addendum entered and electronically signed by Lisa Hadley MD 09/13/24 13:48:
I personally performed a history and physical exam of the patient and discussed management with the resident. I reviewed the resident's note and agree with the documented findings and plan of care HPI/CC.
A/P:
# Anemia secondary to GI bleed/Xarelto use
Hgb 7.1 on admission, s/p 2 units PRBC, responded appropriately and improved to 9.4 today
Iron panel suggest iron deficiency, B12 and folate WNL
Started IV iron, cont
GI on board, plan for EGD/colonoscopy today
continue to hold prior to admission Eliquis
# JAY on CKD stage IV, likely cardiorenal syndrome
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
Continue decreased dose IV Lasix at 40 mg twice daily (BATTERY LOADER on PO Lasix 80 mg BID)
Creatinine improved from 2.5 on admission to 2.1 today
# Essential hypertension
Monitor blood pressure and continue medications as able
decreased Lasix dose as above
Other medical conditions
# Chronic systolic CHF
# History of CABG/coronary artery disease/CHF -ICD in place
# Severe aortic stenosis
# Insulin-dependent diabetes mellitus
insulin sliding scale/Accu-Cheks
Lantus dose decreased to 7 units at bedtime
# HLD-continue statin
DVT ppx: SCD
Hold anticoagulation for now
CODE STATUS-full code
Original Note:
Today's Communication/Plan
-
EGD/colonoscopy
Replete potassium
repeat bmp
Assessment / Plan
Assessment / Plan
Impression
Patient is a 78-year-old male with past medical history of atrial fibrillation, taking Xarelto, aortic stenosis, coronary artery disease, congestive heart failure with implantable cardiac defibrillator in place, history of CABG and diabetes mellitus
who presented to emergency due to decreased energy levels, tiredness fatigue and low hemoglobin levels, referred by his primary care physician to the ER.
No clear source of bleeding, fecal occult blood positive in stool
History of iron deficiency anemia as in past, EGD colonoscopy done in 2018 showed he had a hiatal hernia/diverticulosis. Repeat endoscopy in 2022 showed hiatal hernia.
On past workup tissue transglutaminase IgA antibody is positive. GI consulted, plan to do EGD/colonoscopy tomorrow after washout today.
Assessment/plan
# Anemia secondary to aortic stenosis/GI bleed/Xarelto
Patient's hemoglobin 7.1 on admission, received 2 packs of blood, hemoglobin 9 now
Vitamin B12 levels normal, folate levels normal
Iron studies show decreased iron, normal total iron binding capacity with decreased percentage oxygen saturation
Ferritin normal
Patient receiving IV iron and reports no bleeding
GI consult appreciated-plan to do EGD/colonoscopy on Wednesday, September 13, 2024
It appears to be anemia of chronic disease based on the iron studies
In setting of aortic stenosis and recurrent episodes of anemia it could be AVMs/ectasias
# JAY on CKD stage IV
Aldactone held prior to admission
Patient had pedal edema, that was 2+, IV Lasix started to treat volume overload
Serum creatinine decreased from 2.5-2.3-2.1
Patient still has pedal edema, decreased IV Lasix to 40 mg twice daily
# Essential hypertension
Monitor blood pressure and continue medications as able
Patient has orthostasis, decreased Lasix dose, continue to monitor blood pressure
#Hypokalemia-
replete as needed
#Other medical conditions
# Chronic systolic CHF
# History of CABG/coronary artery disease/CHF -ICD in place
# Severe aortic stenosis
# Insulin-dependent diabetes mellitus -insulin sliding scale/Accu-Cheks/Lantus dose decreased to 7 units at bedtime
# HLD-continue statin
DVT ppx: SCD
Hold anticoagulation for now
CODE STATUS-full code
Anticipated Discharge: 24 - 48 hours
Subjective/Interval History
-
Date of Service: September 13, 2024
No Active issues,patient feeling well
Objective Data
-
Labs:
Laboratory Results
09/13/24
07:25
WBC Pending
Hgb Pending
Hct Pending
Plt Count Pending
PT Pending
INR Pending
Sodium Pending
Potassium Pending
Chloride Pending
Carbon Dioxide Pending
BUN Pending
Creatinine Pending
Glucose Pending
Calcium Pending
Vital Signs:
Vital Signs
Temp Pulse Resp BP Pulse Ox
97.4 F 59 16 135/47 98
09/13/24 07:58 09/13/24 07:58 09/13/24 07:58 09/13/24 07:58 09/13/24 07:58
I&O
09/12/24 09/13/24 09/14/24
06:59 06:59 06:59
Intake Total 980 / 980 1920 / 1920
Output Total 1150 / 1150 550 / 550
Balance -170 / -170 1370 / 1370
Review of Systems
-
All other systems: Reviewed and negative
Physical Exam
-
General: Well Developed, Well Nourished and No Apparent Distress
HEENT: Normocephalic, Atraumatic and Moist Mucous Membranes
Respiratory: Clear to Auscultation
Cardiac: Regular Rhythm and S1/S2
GI: Soft, Nontender and Normal Bowel Sounds
Musculoskeletal: Other (Bilateral leg and pedal edema,pitting)
Skin: Other (stasis dermatitis in legs,Bruise luke on arms )
Neuro: Awake, Oriented and No Motor Deficits
Psych: Calm and Intact Judgement/Insight
[2024-09-13 08:06] LABS: % Basophils 0.5 % (0-2); % Eosinophils 2.4 % (0-6); % Immature Granulocytes 0.7 % (0-0.5); % Lymphocytes 21.1 % (20.5-51.1); % Monocytes 10.5 % (1.7-9.3); % Neutrophils 64.8 % (42.2-75.2); Absolute Eosinophils 0.2 10^3/uL (0-0.7); Absolute Immature Granulocytes 0.1 10^3/uL (0-0.05); Absolute Lymphocytes 1.6 10^3/uL (1.2-3.4); Absolute Monocytes 0.8 10^3/uL (0.1-0.6); Absolute Neutrophils 4.8 10^3/uL (1.4-6.5); Hematocrit 27.9 % (39.0-52.0); Hemoglobin 9.4 g/dL (13.0-18.0); Mean Corp Hgb Conc. 33.7 g/dL (33.0-37.0); Mean Corpuscular Hgb 34.7 pg (27.0-31.0); Mean Platelet Volume 9.5 fL (7.4-10.4); Nucleated Red Blood Cells % 0.7 % (-); Platelet Count 157 10^3/uL (130-400); Red Blood Cell Count 2.71 10^6/uL (4.70-6.10); Red Cell Dist. Width 22.5 % (11.5-14.5); White Blood Cell Count 7.4 10^3/uL (4.8-10.8)
[2024-09-13] MEDS: LASIX 40 MG IV ×2 (08:07→16:58)
[2024-09-13] MEDS: NSS (PRESERVATIVE FREE) 10 ML IV ×2 (08:08→20:21)
[2024-09-13] MEDS: ZYLOPRIM 150 MG PO ×2 (08:08→20:21)
[2024-09-13] MEDS: PROTONIX IV 40 MG IV ×2 (08:08→20:21)
[2024-09-13] MEDS: LIPITOR 80 MG PO (08:08)
[2024-09-13] MEDS: NICODERM TRANSDERMAL 21 MG TRANSDERM (08:10)
[2024-09-13] MEDS: COREG 6.25 MG PO (08:12)
[2024-09-13 08:19] LABS: INR 1.11; PT 14.6 Sec (11.4-14.6)
[2024-09-13 08:25] LABS: Blood Urea Nitrogen 76 mg/dl (9-20); Calcium 9.2 mg/dl (8.4-10.2); Carbon Dioxide 31 mmol/L (22-30); Chloride 89 mmol/L (98-107); Estimated Creatinine Clearance 25 ml/min; Glucose 135 mg/dl (70-99); Magnesium 1.7 mg/dl (1.6-2.3); Potassium 2.8 mmol/L (3.5-5.1); Sodium 129 mmol/L (135-145); eGFR 31.63
[2024-09-13] MEDS: KCL 40 MEQ PO (09:53)
[2024-09-13] MEDS: KCL 270 MEQ IV (09:53)
[2024-09-13] MEDS: MAGNESIUM SULFATE 102 GRAMS IV (10:30)
[2024-09-13 12:00] LABS: Glucose - Point of Care 160 mg/dl (70-99)
[2024-09-13] MEDS: AZOPT 1% OPHTHALMIC SUSPENSION 1 DROP BOTH EYES ×2 (13:05→21:59)
[2024-09-13 13:32] LABS: Potassium 3.4 mmol/L (3.5-5.1)
[2024-09-13] MEDS: FERRLECIT 110 MG IV (15:57)
[2024-09-13 16:33] LABS: Glucose - Point of Care 160 mg/dl (70-99)
[2024-09-13] MEDS: COREG PO (20:20)
[2024-09-13 21:01] LABS: Glucose - Point of Care 191 mg/dl (70-99)
[2024-09-13] MEDS: LANTUS 0.07 UNITS SC (21:59)
[2024-09-14] VITALS (8 sets, daily range): BP systolic 99–126; BP diastolic 49–61; PULSE 54; O2SAT 99; BMI 27.9
[2024-09-14 07:14] LABS: Hemoglobin 9.7 g/dL (13.0-18.0); Mean Corp Hgb Conc. 32.3 g/dL (33.0-37.0); Mean Corpuscular Hgb 34.2 pg (27.0-31.0); Mean Corpuscular Volume 105.6 fL (80.0-94.0); Platelet Count 156 10^3/uL (130-400); Red Blood Cell Count 2.84 10^6/uL (4.70-6.10); Red Cell Dist. Width 22.8 % (11.5-14.5); White Blood Cell Count 7.8 10^3/uL (4.8-10.8)
--- NOTE | 2024-09-14 07:40 | PTCARENOTE ---
Pt c/o burning on urination and change in color of urine. Urine red/mehul color. MD and resident made aware, new order provided, see MAR.
[2024-09-14 07:42] LABS: Blood Urea Nitrogen 64 mg/dl (9-20); Calcium 9.4 mg/dl (8.4-10.2); Carbon Dioxide 29 mmol/L (22-30); Chloride 90 mmol/L (98-107); Estimated Creatinine Clearance 26 ml/min; Glucose 135 mg/dl (70-99); Sodium 129 mmol/L (135-145); eGFR 33.53
[2024-09-14 07:48] LABS: Glucose - Point of Care 171 mg/dl (70-99)
--- NOTE | 2024-09-14 08:33 | W.PN.HOSP.TC ---
Addendum entered and electronically signed by Lisa Hadley MD 09/14/24 11:36:
A/P:
# Anemia secondary to GI bleed/Xarelto use
Hgb 7.1 on admission, s/p 2 units PRBC, responded appropriately. Today Hgb at 9.7.
Iron panel suggest iron deficiency, B12 and folate WNL
Started IV iron, cont
s/p EGD 09/13: noted a single non-bleeding angioectasia in the stomach. Treated with argon plasma coagulation (APC). Clips placed.
s/p C scope 09/13: Preparation of the colon was inadequate. Largely unrevealing.
Cont Protonix 40 mg IV twice a day.
Clears advanced to full liquid, ADAT per GI
Continue to hold prior to admission Eliquis until lifted by GI
# JAY on CKD stage IV, likely cardiorenal syndrome
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
Continue decreased dose IV Lasix at 40 mg twice daily (ELECTRICAL POWER ENGINEER on PO Lasix 80 mg BID)
Creatinine improved from 2.5 on admission to 2.0 today
# Essential hypertension
Monitor blood pressure and continue medications as able
decreased Lasix dose as above
Other medical conditions
# Chronic systolic CHF
# History of CABG/coronary artery disease/CHF -ICD in place
# Severe aortic stenosis
# Insulin-dependent diabetes mellitus
insulin sliding scale/Accu-Cheks
Lantus dose decreased to 7 units at bedtime
# HLD-continue statin
DVT ppx: SCD
Hold anticoagulation for now
CODE STATUS-full code
Original Note:
Today's Communication/Plan
-
Advance diet as tolerated
Replete potassium
Urine analysis with reflex to culture
PT/OT
Monitor RFT's
Assessment / Plan
Assessment / Plan
Impression
Patient is a 78-year-old male with past medical history of atrial fibrillation, taking Xarelto, aortic stenosis, coronary artery disease, congestive heart failure with implantable cardiac defibrillator in place, history of CABG and diabetes mellitus
who presented to emergency due to decreased energy levels, tiredness fatigue and low hemoglobin levels, referred by his primary care physician to the ER.
No obvious bleeding, fecal occult blood positive in stool
On past workup tissue transglutaminase IgA antibody is positive.
Assessment/plan
# Anemia secondary to aortic stenosis/GI bleed/Xarelto
Patient received 2 packs of blood in ER, responded appropriately
Vitamin B12 and folate levels normal, iron studies suggestive of anemia of chronic disease
GI consult appreciated- EGD/colonoscopy done-AVM fixed
Patient currently on clear liquid diet
Started on full liquid diet after consultation with GI
# JAY on CKD stage IV
Aldactone held prior to admission
Patient had pedal edema, that was 2+, IV Lasix started to treat volume overload
Serum creatinine decreased from 2.5-2.3-2.1-2.0
Continue 40 mg IV Lasix daily
# Hypokalemia
Replete as needed
Continue home potassium supplements
# Burning micturition
Patient complained of burning micturition, pinkish urine
Send urine analysis with reflex to culture
Encouraged water intake
# Essential hypertension
Monitor blood pressure and continue medications as able
Patient has orthostasis, decreased Lasix dose, continue to monitor blood pressure
#Other medical conditions
# Chronic systolic CHF
# History of CABG/coronary artery disease/CHF -ICD in place
# Severe aortic stenosis
# Insulin-dependent diabetes mellitus -insulin sliding scale/Accu-Cheks/Lantus dose decreased to 7 units at bedtime
# HLD-continue statin
DVT ppx: SCD
Hold anticoagulation for now
CODE STATUS-full code
Anticipated Discharge: 24 - 48 hours
Subjective/Interval History
-
Date of Service: September 14, 2024
Patient complains of burning micturition, pinkish urine in the bottle
Objective Data
-
Labs:
Laboratory Results
09/14/24
06:24
WBC 7.8
Hgb 9.7 L
Hct 30.0 L
Plt Count 156
Sodium 129 L
Potassium 3.0 L
Chloride 90 L
Carbon Dioxide 29
BUN 64 H
Creatinine 2.0 H
Glucose 135 H
Calcium 9.4
Vital Signs:
Vital Signs
Temp Pulse Resp BP Pulse Ox
97.4 F 72 18 119/61 98
09/14/24 07:10 09/14/24 07:10 09/14/24 07:10 09/14/24 07:10 09/14/24 07:10
I&O
09/13/24 09/14/24 09/15/24
06:59 06:59 06:59
Intake Total 1920 / 1920 1380 / 1380
Output Total 550 / 550 2024
Balance 1370 / 1370 -645 / -645
Review of Systems
-
All other systems: Reviewed and negative
Physical Exam
-
General: Well Developed, Well Nourished, No Apparent Distress and Other (appears pale)
HEENT: Normocephalic and Atraumatic
Respiratory: Clear to Auscultation
Cardiac: S1/S2 and Murmur (Systolic murmur on left sternal border)
GI: Soft, Nontender and Normal Bowel Sounds
Musculoskeletal: No Clubbing, No Cyanosis and Other (Bilateral pedal edema with stasis dermatitis)
Neuro: Awake, Oriented and Nonfocal/Grossly Intact
Psych: Calm
[2024-09-14] MEDS: NSS (PRESERVATIVE FREE) 10 ML IV ×2 (09:10→21:00)
[2024-09-14] MEDS: NOVOLOG FLEXPEN-LOW RESISTANCE 1 UNITS SC ×2 (09:10→12:14)
[2024-09-14] MEDS: PROTONIX IV 40 MG IV ×2 (09:10→21:02)
[2024-09-14] MEDS: ZYLOPRIM 150 MG PO ×2 (09:11→21:02)
[2024-09-14] MEDS: LIPITOR 80 MG PO (09:11)
[2024-09-14] MEDS: COREG 6.25 MG PO ×2 (09:11→21:00)
[2024-09-14] MEDS: LASIX 40 MG IV ×2 (09:11→16:07)
[2024-09-14] MEDS: NICODERM TRANSDERMAL 21 MG TRANSDERM (09:12)
[2024-09-14] MEDS: KCL 270 MEQ IV (09:13)
[2024-09-14] MEDS: TYLENOL 650 MG PO (09:25)
[2024-09-14 09:31] LABS: Urine Albumin 3+ (Neg - Trace); Urine Bilirubin Negative (Negative); Urine Character Very Cloudy (Clear); Urine Color Yellow; Urine Glucose Negative (Negative); Urine Ketone Negative (Negative); Urine Leukocyte 2+ (Negative); Urine Nitrite Negative (Negative); Urine Occult Blood 4+ (Negative); Urine Specific Gravity 1.015 (<1.030); Urine Urobilinogen Negative (Neg - 1+)
[2024-09-14 09:54] LABS: Urine Red Blood Cell >100 /HPF (0-2); Urine Squamous Cell 0-2 /LPF (Few); Urine Urothelial Cell 0-2 /LPF (FEW); Urine White Cell >100 /HPF (0-5)
[2024-09-14 09:55] LABS: Urine Hyaline Cast 0-2 /LPF (0-2)
[2024-09-14 09:56] LABS: Urine Bacteria Few (Negative)
--- NOTE | 2024-09-14 10:33 | CM ---
Attempted to meet with patient several times however he has been out of his room for testing. Placed a call to patient's this morning to obtain information for assessment. Patient's stated that patient lives with her and their son, Duke, in
a two story home with two steps to enter. She and patient have a first floor set up.
Patient's reported that patient is independent with his ADLs, personal care, dressing and bathing. He is able to do tableman, cook, clean and does the shopping. Patient's even relayed that he still goes to the gym. Patient does
drive and can get to his appointments and do all of his own shopping.
He has no DME.
He has not been to a SNF in the past.
Patient has a prescription plan and [facility], and uses [facility] [place] for all of his medications that are not covered by [facility].
Patient's stated that patient is starting to feel better and she feels that with her help as well as son's help they can handle his needs.
Plan: Case management will continue to follow and assist with discharge planning. Home when stable. Son will be able to transport home.
[2024-09-14 11:34] LABS: Glucose - Point of Care 182 mg/dl (70-99)
--- NOTE | 2024-09-14 12:11 | PTCARENOTE ---
Bradycardic, HR 40's- 50's. Pt asleep. MD and resident made aware.
[2024-09-14] MEDS: AZOPT 1% OPHTHALMIC SUSPENSION 1 DROP BOTH EYES ×2 (12:14→21:03)
[2024-09-14] MEDS: KCL 20 MEQ PO (12:15)
[2024-09-14] MEDS: FERRLECIT 110 MG IV (13:33)
--- NOTE | 2024-09-14 15:45 | PTOTSP ---
pt currently requires supervision to no assistance to complete simple ADLs, functional transfers, ambulation. no acute OT needs identified at this time, will sign off.
--- NOTE | 2024-09-14 15:57 | W.PN.GI.CBS2 ---
Addendum entered and electronically signed by Ladan Mallory MD 09/14/24 18:48:
Will arrange for GI follow-up as outpatient. Will sign off for now.
Addendum entered and electronically signed by Ladan Mallory MD 09/14/24 18:47:
I saw and examined the patient.
The AUTOMOBILE LEASING SUPERVISOR or PA's note was reviewed and I agree with the note.
Comment: Patient without any complaints. Able to have low residue diet.
No further bleeding and hemoglobin seems to be stable.
Currently on full liquid diet, okay to advance to low residue diet tomorrow if hemoglobin continues to be stable.
Follow-up with Dr. Pinzon as outpatient and also noted cardiology considering Watchman-this will be helpful to prevent further GI bleeds
Original Note:
Today's Communication / Plan
-
as per plan
Assessment / Plan
-
78 year old male with a fib (on Xarelto), CAD (s/p CABG, stent), pacemaker/defibrillator, , CHF, DM, HTN, hyperlipidemia, CKD, iron deficiency anemia, tobacco use, and colon polyps with worsening fatigue and dyspnea on exertion, hypotensive on
arrival to ER with hemoglobin of 7.1 with macrocytosis . Baseline hemoglobin seems to be in the 8-9. He denies gross bleeding; no melena or BRBPR, but with black, heme positive stool noted on ER rectal exam. s/p 2 units of PRBCs given on admission.
. His last dose of Xarelto was, 09/10/24. with prior negative EGD/colonoscopy/capsule
is a 78yo M with h/o afib on xarelto, , CAD and DM who was told to come to ER by PCP for anemia. In Nov he had tooth infection, then ear infection then UTI. He was on abx and not feeling well. He was seen by PCP Dr Eason who asked him
to come in when noted to be anemic with hbhg 7.1. He denies seeing any red or black blood in stools. He of note has h/o iron def anemia in the past for which he's had EGD/colon/capsule in 2017 and more recently by Dr. Pinzon EGD/colon 2019. Vitals
reviewed was hypotensive in ER but improved with IVF. blue bleb on lip. NTTP large scar seen. Labs reviewed macrocytic anemia noted. Hemoglobin has remained stable. Patient is on IV iron. EGD with single nonbleeding angioectasia in the stomach.
Treated with APC and clips. Okay per GI to restart anticoagulation if cardiology feels necessary.
EGD 09/13/24: - No gross lesions in the entire esophagus.
- Z-line variable, 40 cm from the incisors.
- Small hiatal hernia.
- A single non-bleeding angioectasia in the stomach.
Treated with argon plasma coagulation (APC). Clips
were placed.
- Normal examined duodenum.
- No specimens collected.
COLO 09/13/24:Impression: - Preparation of the colon was inadequate.
- The examined portion of the ileum was normal.
- Stool in the entire examined colon.
- Internal hemorrhoids.
- No specimens collected.
Recommendation: - Clear liquid diet.
- Check hemoglobin daily.
- Advance diet as tolerated.
- Consider watchman to prevent further bleeds from
AVM's in the future.
IMPRESSION / PLAN:
Impression
- Anemia with FOBT+ stool
-acute on chronic renal disease
- Chronic anticoagulation (xarelto last 1/5 PM)
-CHF
-
- CAD
- DM
- Pacemaker
- CKD
- HL
- Tobacco use
PLAN:
-Outpatient follow-up discussed with patient. Given patient option to have video capsule study versus repeat hemoglobin. Patient states that he has had 2 video capsule studies with negative findings. Unsure if he wants to have another. He is
going to decide whether or not he is going to have repeat hemoglobin as an outpatient after follow-up versus call for VCS. Either way he will call for follow-up appointment.
-Okay per GI to start anticoagulation if cardiology feels necessary.
-Given recurrent issues with GI blood loss consider watchman outpatient basis
-Nothing further from a GI perspective. Will be available as needed or by request
Subjective
Subjective
Date of Service: September 14, 2024
Patient states he is feeling well. He is up and ambulating. Tolerating a solid diet. He has an appetite. Had a very small 'clear' bowel movement this morning. Hemoglobin stable. Patient is status post EGD and colonoscopy yesterday. EGD showed
no lesions in esophagus. Small hiatal hernia. Nonbleeding angioectasia in the stomach that was treated with APC. Clips placed. Normal duodenum. Colonoscopy was fair prep. Had dose of IV iron today.
Objective
Data Reviewed
Laboratory Data:
Laboratory Results
09/14/24 06:24
09/14/24 06:24
Laboratory Results
PT 14.6 Sec (11.4-14.6) 09/13/24 07:25
INR 1.11 09/13/24 07:25
Magnesium 1.7 mg/dl (1.6-2.3) 09/13/24 07:25
Total Bilirubin 0.4 mg/dl (0.2-1.3) 09/11/24 10:55
AST 28 U/L (17-59) 09/11/24 10:55
ALT 19 U/L (0-50) 09/11/24 10:55
Alkaline Phosphatase 79 U/L (38-126) 09/11/24 10:55
Vital Signs and I&O:
Vital Signs
Temp Pulse Resp BP Pulse Ox
98.0 F 57 17 111/53 99
09/14/24 15:06 09/14/24 15:06 09/14/24 15:06 09/14/24 15:06 09/14/24 15:06
I&O
09/13/24 09/14/24 09/15/24
06:59 06:59 06:59
Intake Total 1919 1380 / 1380
Output Total 550 / 550 2024
Balance 1370 / 1370 -645 / -645
Physical Exam
Physical Exam
HEENT: Anicteric
Cardiology: Normal Sinus Rhythm
Pulmonary: Clear (anterior)
GI: Soft, Non Distended, Non Tender and Normal Bowel Sounds
Extremities: Edema
Neuro: Non Focal
--- NOTE | 2024-09-14 16:09 | PTOTSP ---
Pt is independent with bed mobility, transfers, and ambulation in hallway without need for an assistive device and is able to climb some steps with a railing. Appears to be back to his baseline. PT will sign off.
[2024-09-14 16:40] LABS: Glucose - Point of Care 238 mg/dl (70-99)
[2024-09-14] MEDS: NOVOLOG FLEXPEN-LOW RESISTANCE 2 UNITS SC (17:32)
[2024-09-14 21:26] LABS: Glucose - Point of Care 255 mg/dl (70-99)
[2024-09-14] MEDS: LANTUS 0.07 UNITS SC (21:37)
[2024-09-15 03:57] VITALS: BP 100/50
[2024-09-15 06:00] VITALS: BMI 28.3
[2024-09-15 07:20] LABS: % Basophils 0.2 % (0-2); % Eosinophils 1.3 % (0-6); % Immature Granulocytes 0.6 % (0-0.5); % Lymphocytes 20.8 % (20.5-51.1); % Monocytes 9.4 % (1.7-9.3); % Neutrophils 67.7 % (42.2-75.2); Absolute Eosinophils 0.1 10^3/uL (0-0.7); Absolute Immature Granulocytes 0.1 10^3/uL (0-0.05); Absolute Lymphocytes 1.8 10^3/uL (1.2-3.4); Absolute Monocytes 0.8 10^3/uL (0.1-0.6); Absolute Neutrophils 5.7 10^3/uL (1.4-6.5); Hematocrit 30.2 % (39.0-52.0); Hemoglobin 10.3 g/dL (13.0-18.0); Mean Corp Hgb Conc. 34.1 g/dL (33.0-37.0); Mean Corpuscular Hgb 35.4 pg (27.0-31.0); Mean Corpuscular Volume 103.8 fL (80.0-94.0); Mean Platelet Volume 9.5 fL (7.4-10.4); Nucleated Red Blood Cells % 0.8 % (-); Platelet Count 150 10^3/uL (130-400); Red Blood Cell Count 2.91 10^6/uL (4.70-6.10); White Blood Cell Count 8.4 10^3/uL (4.8-10.8)
[2024-09-15 07:30] VITALS: BP 113/64
[2024-09-15 07:38] LABS: Blood Urea Nitrogen 54 mg/dl (9-20); Calcium 9.3 mg/dl (8.4-10.2); Carbon Dioxide 28 mmol/L (22-30); Chloride 89 mmol/L (98-107); Estimated Creatinine Clearance 26 ml/min; Glucose 160 mg/dl (70-99); Magnesium 1.6 mg/dl (1.6-2.3); Potassium 3.8 mmol/L (3.5-5.1); Sodium 124 mmol/L (135-145); eGFR 33.53
[2024-09-15 07:43] LABS: Glucose - Point of Care 175 mg/dl (70-99)
[2024-09-15] MEDS: ZYLOPRIM 150 MG PO (09:13)
[2024-09-15] MEDS: NOVOLOG FLEXPEN-LOW RESISTANCE 1 UNITS SC ×2 (09:13→11:51)
[2024-09-15] MEDS: COREG 6.25 MG PO (09:13)
[2024-09-15] MEDS: NSS (PRESERVATIVE FREE) 10 ML IV (09:14)
[2024-09-15] MEDS: PROTONIX IV 40 MG IV (09:14)
[2024-09-15] MEDS: KCL 20 MEQ PO ×2 (09:15→11:57)
[2024-09-15] MEDS: LIPITOR 80 MG PO (09:15)
[2024-09-15] MEDS: LASIX 40 MG IV (09:15)
[2024-09-15] MEDS: NICODERM TRANSDERMAL 21 MG TRANSDERM (09:15)
[2024-09-15 11:04] VITALS: BP 107/59
[2024-09-15 11:35] LABS: Glucose - Point of Care 182 mg/dl (70-99)
[2024-09-15] MEDS: NOVOLOG FLEXPEN 5 UNITS SC (11:51)
[2024-09-15] MEDS: AZOPT 1% OPHTHALMIC SUSPENSION 1 DROP BOTH EYES (11:57)
[2024-09-15] MEDS: FERRLECIT 110 MG IV (13:08)
--- NOTE | 2024-09-15 14:19 | W.PN.HOSP.TC ---
Addendum entered and electronically signed by Lisa Hadley MD 09/15/24 22:12:
total DC time 39 min
Addendum entered and electronically signed by Lisa Hadley MD 09/15/24 15:33:
I personally performed a history and physical exam of the patient and discussed management with the resident. I reviewed the resident's note and agree with the documented findings and plan of care HPI/CC.
A/P:
# Anemia secondary to GI bleed/Xarelto use
Hgb 7.1 on admission, s/p 2 units PRBC, responded appropriately. Today Hgb at 10.3
Iron panel suggest iron deficiency, B12 and folate WNL
Started IV iron, cont
s/p EGD 09/13: noted a single non-bleeding angioectasia in the stomach. Treated with argon plasma coagulation (APC). Clips placed.
s/p C scope 09/13: Preparation of the colon was inadequate. Largely unrevealing.
Cont Protonix 40 mg IV twice a day.
Diet advanced to low residue, pt tolerated well prior to discharge
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
# JAY on CKD stage IV, likely cardiorenal syndrome
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
Continue decreased dose IV Lasix at 40 mg twice daily (WIND FIELD SERVICE MANAGER on PO Lasix 80 mg BID)
Creatinine improved from 2.5 on admission to 2.0 today
# Acute on chronic hyponatremia, suspect likely due to IV diuretic
Clinically asymptomatic
Informed to check outpatient BMP in 1 week, result to PCP
Resume prior to admission p.o. Lasix following discharge
# Essential hypertension
Monitor blood pressure and continue medications as able
Other medical conditions
# Chronic systolic CHF
# History of CABG/coronary artery disease/CHF -ICD in place
# Severe aortic stenosis
# Insulin-dependent diabetes mellitus
insulin sliding scale/Accu-Cheks
Lantus dose decreased to 7 units at bedtime
# HLD-continue statin
DVT ppx: SCD
CODE STATUS-full code
Original Note:
Today's Communication/Plan
-
Provide a prescription to repeat BMP in 3 days and follow-up with primary care physician
Assessment / Plan
Assessment / Plan
Impression
Patient is a 78-year-old male with past medical history of atrial fibrillation, taking Xarelto, aortic stenosis, coronary artery disease, congestive heart failure with implantable cardiac defibrillator in place, history of CABG and diabetes mellitus
who presented to emergency due to decreased energy levels, tiredness fatigue and low hemoglobin levels, referred by his primary care physician to the ER.
No obvious bleeding, fecal occult blood positive in stool
On past workup tissue transglutaminase IgA antibody is positive.
Assessment/plan
# Anemia secondary to aortic stenosis/GI bleed/Xarelto
Patient received 2 packs of blood in ER, responded appropriately
Vitamin B12 and folate levels normal, iron studies suggestive of anemia of chronic disease
GI consult appreciated- EGD/colonoscopy done-AVM fixed
Advance patient to low residue diet
# JAY on CKD stage IV
Aldactone held prior to admission
Patient had pedal edema, that was 2+, IV Lasix started to treat volume overload
Serum creatinine decreased from 2.5-2.3-2.1-2.0
Continue home dose of Lasix on discharge
# Hypokalemia
Replete as needed
Continue home potassium supplements
# Burning micturition
Patient complained of burning micturition, pinkish urine
Urine culture positive for Enterococcus
Patient asymptomatic and urine has become clear, recommend 14-day course of Augmentin
# Essential hypertension
Monitor blood pressure and continue medications as able
Patient has orthostasis, decreased Lasix dose, continue to monitor blood pressure
# Acute on chronic hyponatremia
Possibly due to diuresis, patient asymptomatic
Repeat BMP in 3 days
#Other medical conditions
# Chronic systolic CHF
# History of CABG/coronary artery disease/CHF -ICD in place
# Severe aortic stenosis
# Insulin-dependent diabetes mellitus -insulin sliding scale/Accu-Cheks/Lantus dose decreased to 7 units at bedtime
# HLD-continue statin
DVT ppx: SCD
Hold anticoagulation for now
CODE STATUS-full code
Anticipated Discharge: Today
Subjective/Interval History
-
Date of Service: September 15, 2024
Patient feels more energy and feels well, urine appears clear
Objective Data
-
Labs:
Laboratory Results
09/15/24
06:58
WBC 8.4
Hgb 10.3 L
Hct 30.2 L
Plt Count 150
Sodium 124 L
Potassium 3.8 D
Chloride 89 L
Carbon Dioxide 28
BUN 54 H
Creatinine 2.0 H
Glucose 160 H
Calcium 9.3
Vital Signs:
Vital Signs
Temp Pulse Resp BP Pulse Ox
97.3 F 77 16 107/59 98
09/15/24 11:04 09/15/24 11:04 09/15/24 11:04 09/15/24 11:04 09/15/24 11:04
I&O
09/14/24 09/15/24 09/16/24
06:59 06:59 06:59
Intake Total 1380 / 1380 1820 / 1820 480 / 480
Output Total 2024 1000 / 1000 400 / 400
Balance -645 / -645 820 / 820 80 / 80
Review of Systems
-
All other systems: Reviewed and negative
Physical Exam
-
General: Well Developed, Well Nourished and Other (A little bit pale in appearance)
HEENT: Normocephalic, Atraumatic and Moist Mucous Membranes
Respiratory: Clear to Auscultation
Cardiac: S1/S2 and Murmur (Ejection systolic murmur)
GI: Soft, Nontender and Normal Bowel Sounds
Musculoskeletal: No Clubbing, No Cyanosis and Other (Bilateral pedal edema with stasis dermatitis)
Neuro: Awake, Oriented and No Motor Deficits
Psych: Calm and Intact Judgement/Insight
--- NOTE | 2024-09-15 15:34 | W.DCSUMMARY ---
Documented by User: Loren Blackwell MD, Resident 09/15/24 15:54
Discharge Summary
Discharge Data
Date of Admission: 09/11/24
Date of Discharge: 09/15/24
-
Pending Results: No
Hospital Course
Discharging Physician :
Lisa Hadley, Loren Blackwell
Disposition :
Home
Primary care physician :
Christiano Eason
Principal Discharge diagnosis :
Anemia secondary to GI bleed (Hemoglobin stable) from single non-bleeding angioectasia in the stomach (treated with argon plasma coagulation and clips placed);
JAY on CKD stage 4 likely Cardiorenal syndrome (improving)
Acute on chronic hyponatremia, likely due to diuretic
Chronic Discharge diagnosis :
atrial fib,coronary artery disease,chf,htn,hld,IDDM,MA,carotid stenosis,GOUT ,BPH,Severe aortic stenosis
CABG
stent
cholecystectomy
carotid stenosis
endarectomy
Hospital Course :
78-year-old male sent by primary care physician for low hemoglobin, reported intermittent shortness of breath and endorsed bloody bowel movement recently. He had routine CBC checked with his PCP and was prompted to come to ED for low hemoglobin.
Hemoglobin 7.1 on admission, received 2 units of packed RBCs, responded appropriately, hemoglobin stabilized around 9-10. Iron panel suggested iron deficiency anemia, vitamin B12 and folate levels within normal limits. EGD done on 09/13/2024,
noted a single nonbleeding angio ectasia that was treated with argon plasma coagulation and clips were placed. Colonoscopy was also done on 09/13, preparation of colon was inadequate, largely unrevealing. As per GI it is okay to continue
anticoagulation, which the patient takes for atrial fibrillation.
Patient has history of heart failure, on admission he had at least 2+ pedal edema, his serum creatinine was 2.5, his baseline creatinine is around 1.7. The increase in creatinine was secondary to cardiorenal syndrome, started IV Lasix 80 mg twice
daily. As the patient's creatinine came closer to baseline the IV Lasix dose was reduced to 40 mg twice daily. On discharge patient was prescribed home dose of Lasix status 80 mg twice daily. Patient takes potassium supplements to avoid
hypokalemia as he is using the diuretics. Advised to continue as prior to admission.
Patient also has chronic hyponatremia and had acute hyponatremia on admission possibly due to diuresis effect, clinically asymptomatic, informed to check outpatient BMP in 1 week results to PCP.
Patient had pinkish urine following endoscopy, urine analysis done, evidence of UTI, as per culture with Enterococcus. Patient prescribed a 14-day course of Augmentin on discharge
Important imaging findings :
CXR 09/15/2024
IMPRESSION:
Tiny right pleural effusion. Progressed.
Mild flattening of the diaphragms consistent with COPD. Stable
Procedure findings :
Endoscopy 09/13/2024
Impression: - No gross lesions in the entire esophagus.
- Z-line variable, 40 cm from the incisors.
- Small hiatal hernia.
- A single non-bleeding angioectasia in the stomach.
Treated with argon plasma coagulation (APC). Clips
were placed.
- Normal examined duodenum.
- No specimens collected.
Colonoscopy 09/13/2024
Impression: - Preparation of the colon was inadequate.
- The examined portion of the ileum was normal.
- Stool in the entire examined colon.
- Internal hemorrhoids.
- No specimens collected.
Discharge Plan
-
Patient Disposition: Home (Routine Discharge)
Discharge Diagnosis/Procedures: Anemia secondary to GI bleed (Hemoglobin stable) from single non-bleeding angioectasia in the stomach (treated with argon plasma coagulation and clips placed);
JAY on CKD stage 4 likely Cardiorenal syndrome (improving)
Acute on chronic hyponatremia, likely due to diuretic
Condition: Fair
Diet: Low Residue, Diabetic, Carb Controlled and Other diet
Additional Diets: Continue low residue diet for a week, if tolerating okay, switch to regular carb control diet after that
Tissue transglutaminase IgA positive in 2017, recommend gluten-free diet
Activity: As tolerated
Driving Restrictions: As prior to admission
Bathing Restrictions: None
Blood Work: HgA1C in 3 months with PCP (A1C at 5.2% this admission)
BMP (for low sodium level 124 on DC) in 3 days result to PCP
Referrals:
Margarita Pinzon MD [Active] - in one month
Christiano Eason MD [Family Provider] - in less than 1 week
Additional Discharge Medication Instructions: Long acting insulin Lantus has been reduced to 15 units (as HbA1c 5.2% on this admission)
meal time insulin Lispro reduced to 5 units before meals
Continue Protonix 40 mg twice daily until further directed by outpatient GI Dr.
Prescriptions:
New
pantoprazole [Protonix] [address] for susp in packet
40 mg PO BID 30 Days Qty: 60 0RF
amoxicillin-pot clavulanate [Augmentin] 500-125 mg tablet
1 tab PO BID 14 Days Qty: 28 0RF
Continued
nitroglycerin [Nitrostat] 0.4 MG tablet, sublingual
0.4 mg sublingual [id number] PRN (Reason: chest pain)
Patient Comments:
pt has not needed
allopurinol 100 MG tablet
150 mg PO BID
carvedilol 6.25 MG tablet
3.125 mg PO BID
cyanocobalamin (vitamin B-12) 1,000 MCG tablet
1,000 mcg PO DAILY
atorvastatin 80 mg Tablet
80 mg PO DAILY
brinzolamide 1 % drops,suspension
1 drp BOTH EYES BID@1200,2200
acetaminophen 500 mg Tablet
500 mg PO DAILYPRN PRN (Reason: pain)
ferrous sulfate 325 mg (65 mg iron) Tablet
325 mg PO DAILY@1600
betamethasone dipropionate 0.05 % cream
1 applic TOPICAL BID
furosemide 80 mg Tablet
80 mg PO BID@0800,1600
Vegetable Pill Otc
1 tab PO DAILY
metolazone 2.5 mg Tablet
2.5 mg PO DAILY@1530
spironolactone 25 mg tablet
12.5 mg PO DAILY
colchicine 0.6 mg tablet
0.6 mg PO DAILYPRN PRN (Reason: GOUTY ATTACK)
vitamin E 268 mg (400 unit) Capsule
268 mg PO DAILY
apixaban 5 mg Tablet
5 mg PO BID
potassium chloride 20 mEq tablet extended release
40 meq PO BID@0800,1200
fexofenadine 180 mg Tablet
180 mg PO DAILYPRN PRN (Reason: ALLERGIES)
mupirocin 2 % ointment
1 applic TOPICAL BID
potassium chloride 20 mEq tablet extended release
20 meq PO DAILY@1800
Centrum Adult 50 Plus
1 tab PO DAILY
Changed
insulin lispro [Admelog SoloStar U-100 Insulin] 100 unit/mL insulin pen
5 unit SC AC Qty: 0 0RF
insulin glargine [Lantus Solostar U-100 Insulin] 100 unit/mL (3 mL) Insulin Pen
15 unit SC HS Qty: 0 0RF
Discharge Orders:
Discharge Patient (As Directed); Ordered 09/15/24
Ordered By: Loren Blackwell
Discharge Date and Time
Discharge Date/Time: 09/15/24 15:48
Print Language: BAHAMIAN

Documented by User: Lisa Hadley MD 09/15/24 22:12
Discharge Summary
Discharge Data
Date of Admission: 09/11/24
Date of Discharge: 09/15/24
Hospital Course
Discharging Physician :
Lisa Hadley Sandal Shahzadi
Disposition :
Home
Primary care physician :
Christiano Eason
Principal Discharge diagnosis :
Anemia secondary to GI bleed from single non-bleeding angioectasia in the stomach (treated with argon plasma coagulation and clips placed);
JAY on CKD stage 4 likely Cardiorenal syndrome (improving)
Acute on chronic hyponatremia, likely due to diuretic
Chronic Discharge diagnosis :
atrial fib, coronary artery disease, chf, htn, hld, IDDM, carotid stenosis, GOUT, BPH, Severe aortic stenosis
CABG
stent
cholecystectomy
carotid stenosis
endarectomy
Hospital Course :
78-year-old male sent by primary care physician for low hemoglobin, and he reported intermittent shortness of breath and endorsed bloody bowel movement recently. His Hemoglobin was at 7.1 on admission, and he received 2 units of packed RBCs, which
responded appropriately. His hemoglobin stabilized around 9-10. His iron panel suggested iron deficiency anemia and he received IV iron during his hospital stay. EGD was done on 09/13/2024, which noted a single nonbleeding angioectasia that was
treated with argon plasma coagulation and clips were placed. Colonoscopy was also done on 09/13, preparation of colon was inadequate, and it was largely unrevealing. Per GI, it would be okay to continue anticoagulation, which the patient takes for
atrial fibrillation.
Patient has history of heart failure. On admission, he had at least 2+ pedal edema, and his serum creatinine was at 2.5, which was higher than his baseline at 1.7. The increase in creatinine was secondary to cardiorenal syndrome. He received IV
Lasix while in the hospital and his creatinine improved to 2.0. He can continue his home dose lasix following discharge (80 mg BID).
During his hospital, he complained of dysuria and had hematuria. His culture was sent which grew Enterococcus. Sensitivity was not available at the time of discharge. He received empiric ceftriaxone while in the hospital and was discharged with
Augmentin to complete 14 days total.
Patient was also noted to have acute on chronic hyponatremia (but was asymptomatic) which was likely due to diuresis effect. He has been informed to check outpatient BMP in 1 week with results to PCP.
Important imaging findings :
CXR 09/15/2024
IMPRESSION:
Tiny right pleural effusion. Progressed.
Mild flattening of the diaphragms consistent with COPD. Stable
Procedure findings :
Endoscopy 09/13/2024
Impression: - No gross lesions in the entire esophagus.
- Z-line variable, 40 cm from the incisors.
- Small hiatal hernia.
- A single non-bleeding angioectasia in the stomach.
Treated with argon plasma coagulation (APC). Clips
were placed.
- Normal examined duodenum.
- No specimens collected.
Colonoscopy 09/13/2024
Impression: - Preparation of the colon was inadequate.
- The examined portion of the ileum was normal.
- Stool in the entire examined colon.
- Internal hemorrhoids.
- No specimens collected.
Discharge Plan
-
Patient Disposition: Home (Routine Discharge)
Discharge Diagnosis/Procedures: Anemia secondary to GI bleed (Hemoglobin stable) from single non-bleeding angioectasia in the stomach (treated with argon plasma coagulation and clips placed);
JAY on CKD stage 4 likely Cardiorenal syndrome (improving)
Acute on chronic hyponatremia, likely due to diuretic
Condition: Fair
Diet: Low Residue, Diabetic, Carb Controlled and Other diet
Additional Diets: Continue low residue diet for a week, if tolerating okay, switch to regular carb control diet after that
Tissue transglutaminase IgA positive in 2017, recommend gluten-free diet
Activity: As tolerated
Driving Restrictions: As prior to admission
Bathing Restrictions: None
Blood Work: HgA1C in 3 months with PCP (A1C at 5.2% this admission)
BMP (for low sodium level 124 on DC) in 3 days result to PCP
Referrals:
Margarita Pinzon MD [Active] - in one month
Christiano Eason MD [Family Provider] - in less than 1 week
Additional Discharge Medication Instructions: Long acting insulin Lantus has been reduced to 15 units (as HbA1c 5.2% on this admission)
meal time insulin Lispro reduced to 5 units before meals
Continue Protonix 40 mg twice daily until further directed by outpatient GI Dr.
Prescriptions:
New
pantoprazole [Protonix] [address] for susp in packet
40 mg PO BID 30 Days Qty: 60 0RF
amoxicillin-pot clavulanate [Augmentin] 500-125 mg tablet
1 tab PO BID 14 Days Qty: 28 0RF
Continued
nitroglycerin [Nitrostat] 0.4 MG tablet, sublingual
0.4 mg sublingual [id number] PRN (Reason: chest pain)
Patient Comments:
pt has not needed
allopurinol 100 MG tablet
150 mg PO BID
carvedilol 6.25 MG tablet
3.125 mg PO BID
cyanocobalamin (vitamin B-12) 1,000 MCG tablet
1,000 mcg PO DAILY
atorvastatin 80 mg Tablet
80 mg PO DAILY
brinzolamide 1 % drops,suspension
1 drp BOTH EYES BID@1200,2200
acetaminophen 500 mg Tablet
500 mg PO DAILYPRN PRN (Reason: pain)
ferrous sulfate 325 mg (65 mg iron) Tablet
325 mg PO DAILY@1600
betamethasone dipropionate 0.05 % cream
1 applic TOPICAL BID
furosemide 80 mg Tablet
80 mg PO BID@0800,1600
Vegetable Pill Otc
1 tab PO DAILY
metolazone 2.5 mg Tablet
2.5 mg PO DAILY@1530
spironolactone 25 mg tablet
12.5 mg PO DAILY
colchicine 0.6 mg tablet
0.6 mg PO DAILYPRN PRN (Reason: GOUTY ATTACK)
vitamin E 268 mg (400 unit) Capsule
268 mg PO DAILY
apixaban 5 mg Tablet
5 mg PO BID
potassium chloride 20 mEq tablet extended release
40 meq PO BID@0800,1200
fexofenadine 180 mg Tablet
180 mg PO DAILYPRN PRN (Reason: ALLERGIES)
mupirocin 2 % ointment
1 applic TOPICAL BID
potassium chloride 20 mEq tablet extended release
20 meq PO DAILY@1800
Centrum Adult 50 Plus
1 tab PO DAILY
Changed
insulin lispro [Admelog SoloStar U-100 Insulin] 100 unit/mL insulin pen
5 unit SC AC Qty: 0 0RF
insulin glargine [Lantus Solostar U-100 Insulin] 100 unit/mL (3 mL) Insulin Pen
15 unit SC HS Qty: 0 0RF
Discharge Orders:
Discharge Patient (As Directed); Ordered 09/15/24
Ordered By: Loren Blackwell
Discharge Date and Time
Discharge Date/Time: 09/15/24 15:48
Print Language: BAHAMIAN
[2024-09-15 15:36] VITALS: BP 104/49
== END 2024-09-15 15:48 | disposition home or self-care (01) | DRG 813 ==
LOC: 3 WEST ACU 14:16
PROVIDERS: Internal Medicine Gastroenterology; Nurse Practitioner Adult Health; Physician Assistant; ADMITTING PHYSICIAN Internal Medicine; CONSULT PHYSICIAN Internal Medicine Gastroenterology; EMERGENCY PHYSICIAN Emergency Medicine; FAMILY PHYSICIAN Family Medicine
PROC: 30233N1 Transfusion of Nonautologous Red Blood Cells into Peripheral Vein, Percutaneous Approach (ICD-10-PCS; 2024-09-11)
PROC: 0W3P8ZZ Control Bleeding in Gastrointestinal Tract, Via Natural or Artificial Opening Endoscopic (ICD-10-PCS; 2024-09-13)
PROC: 0DJD8ZZ Inspection of Lower Intestinal Tract, Via Natural or Artificial Opening Endoscopic (ICD-10-PCS; 2024-09-13)
DX: D68.32 Hemorrhagic disorder due to extrinsic circulating anticoagulants (principal); K31.811 Angiodysplasia of stomach and duodenum with bleeding; N18.4 Chronic kidney disease, stage 4 (severe); N17.9 Acute kidney failure, unspecified; I50.22 Chronic systolic (congestive) heart failure; I13.0 Hypertensive heart and chronic kidney disease with heart failure and stage 1 through stage 4 chronic kidney disease, or unspecified chronic kidney disease; E87.1 Hypo-osmolality and hyponatremia; F17.210 Nicotine dependence, cigarettes, uncomplicated; D50.0 Iron deficiency anemia secondary to blood loss (chronic); D53.9 Nutritional anemia, unspecified; E11.22 Type 2 diabetes mellitus with diabetic chronic kidney disease; Z79.01 Long term (current) use of anticoagulants; I48.0 Paroxysmal atrial fibrillation; E78.00 Pure hypercholesterolemia, unspecified; K22.89 Other specified disease of esophagus; K44.9 Diaphragmatic hernia without obstruction or gangrene; K64.8 Other hemorrhoids
CPT/HCPCS: 80048; 80053; 81003; 81015; 82607; 82728; 82746; 82962; 83036; 83540; 83550; 83735; 84132; 85025; 85027; 85610; 86850; 86900; 86901; 86920; 87077; 87086; 93005; 97162; 97165; 99291; J2916; P9016

== ENCOUNTER → 2024-10-09 13:57 | Outpatient (REF) | payer MEDICARE, BC, SELFPAY | LOC: RCS 13:57 | PROVIDERS: ATTENDING PHYSICIAN Internal Medicine Cardiovascular Disease; FAMILY PHYSICIAN Family Medicine | DX: I35.0 Nonrheumatic aortic (valve) stenosis (principal) | CPT/HCPCS: 93306 ==

== ENCOUNTER → 2024-10-31 11:11 | Outpatient (REF) | payer MEDICARE, BC, SELFPAY ==
[2024-10-31 11:14] LABS: % Basophils 0.1 % (0-2); % Eosinophils 1.1 % (0-6); % Immature Granulocytes 0.4 % (0-0.5); % Lymphocytes 14.1 % (20.5-51.1); % Monocytes 9.3 % (1.7-9.3); Absolute Eosinophils 0.1 10^3/uL (0-0.7); Absolute Monocytes 0.7 10^3/uL (0.1-0.6); Absolute Neutrophils 5.5 10^3/uL (1.4-6.5); Hematocrit 26.1 % (39.0-52.0); Hemoglobin 8.3 g/dL (13.0-18.0); Mean Corp Hgb Conc. 31.8 g/dL (33.0-37.0); Mean Corpuscular Hgb 34.7 pg (27.0-31.0); Mean Corpuscular Volume 109.2 fL (80.0-94.0); Mean Platelet Volume 9.9 fL (7.4-10.4); Platelet Count 224 10^3/uL (130-400); Red Blood Cell Count 2.39 10^6/uL (4.70-6.10); Red Cell Dist. Width 18.1 % (11.5-14.5); White Blood Cell Count 7.4 10^3/uL (4.8-10.8)
[2024-10-31 11:56] LABS: Nucleated Red Blood Cells % 0 % (-); Reticulocyte Count 4.7 % (0.4-2.8)
[2024-10-31 12:10] LABS: Blood Urea Nitrogen 100 mg/dl (9-20); Calcium 9.3 mg/dl (8.4-10.2); Carbon Dioxide 25 mmol/L (22-30); Chloride 92 mmol/L (98-107); Glucose 203 mg/dl (70-99); Iron 33 ug/dl (49-181); LDH 182 U/L (120-246); Potassium 4.6 mmol/L (3.5-5.1); Sodium 127 mmol/L (135-145); eGFR 26.94
[2024-10-31 12:19] LABS: Percent Saturation 9 % (20-50); Total Iron Binding Capacity 334 ug/dl (261-462)
[2024-10-31 12:27] LABS: Erythrocyte Sed Rate 96 mm/hour (0-20)
[2024-10-31 12:46] LABS: Ferritin 23.8 ng/ml (17.9-464.0)
[2024-10-31 13:17] LABS: Folate > 20.0 ng/ml (2.76-20); Vitamin B12 904 pg/ml (239-931)
[2024-11-01 11:43] LABS: Erythropoietin (EPO) 236 mU/mL (4-27)
[2024-11-01 16:02] LABS: Haptoglobin 161 mg/dL (30-200)
== END ==
LOC: OIDL 11:11
PROVIDERS: ATTENDING PHYSICIAN Nurse Practitioner Adult Health
DX: D50.9 Iron deficiency anemia, unspecified (principal); D51.9 Vitamin B12 deficiency anemia, unspecified
CPT/HCPCS: 80048; 82607; 82668; 82728; 82746; 83010; 83540; 83550; 83615; 85025; 85045; 85652

== ENCOUNTER 2024-11-06 16:16 | Outpatient (RCR) | payer MEDICARE, BC, SELFPAY ==
[2024-11-06 13:59] LABS: % Basophils 0.3 % (0-2); % Eosinophils 1.9 % (0-6); % Immature Granulocytes 0.3 % (0-0.5); % Lymphocytes 18.5 % (20.5-51.1); % Monocytes 9.6 % (1.7-9.3); % Neutrophils 69.4 % (42.2-75.2); Absolute Eosinophils 0.1 10^3/uL (0-0.7); Absolute Lymphocytes 1.2 10^3/uL (1.2-3.4); Absolute Monocytes 0.6 10^3/uL (0.1-0.6); Absolute Neutrophils 4.3 10^3/uL (1.4-6.5); Hematocrit 27.7 % (39.0-52.0); Hemoglobin 8.6 g/dL (13.0-18.0); Mean Corpuscular Hgb 32.3 pg (27.0-31.0); Mean Corpuscular Volume 104.1 fL (80.0-94.0); Mean Platelet Volume 9.3 fL (7.4-10.4); Platelet Count 231 10^3/uL (130-400); Red Blood Cell Count 2.66 10^6/uL (4.70-6.10); Red Cell Dist. Width 18.4 % (11.5-14.5); White Blood Cell Count 6.2 10^3/uL (4.8-10.8)
== END 2024-12-04 23:59 | disposition home or self-care (01) ==
LOC: OID 16:16
PROVIDERS: Nurse Practitioner Adult Health; ATTENDING PHYSICIAN Nurse Practitioner; FAMILY PHYSICIAN Family Medicine
DX: D64.9 Anemia, unspecified (principal); I49.8 Other specified cardiac arrhythmias; I35.0 Nonrheumatic aortic (valve) stenosis; Z79.01 Long term (current) use of anticoagulants
CPT/HCPCS: 85025

== ENCOUNTER 2025-03-11 16:01 | Inpatient (IN) | payer MEDICARE, BC, SELFPAY ==
[2025-03-11] VITALS (48 sets, daily range): BP systolic 82–130; BP diastolic 41–99; BMI 25.7; BMI 24.6
[2025-03-11 13:52] LABS: INR 2.05; PT 23.3 Sec (11.4-14.6)
[2025-03-11 13:53] LABS: APTT 38.3 Sec (23.4-35.0)
[2025-03-11 14:06] LABS: ALT (SGPT) 17 U/L (0-50); AST (SGOT) 22 U/L (17-59); Albumin 3.1 g/dl (3.5-5.0); Alkaline Phosphatase 78 U/L (38-126); Calcium 9.5 mg/dl (8.4-10.2); Carbon Dioxide 25 mmol/L (22-30); Chloride 91 mmol/L (98-107); Glucose 219 mg/dl (70-99); Potassium 4.0 mmol/L (3.5-5.1); Sodium 126 mmol/L (135-145); Total Protein 5.8 g/dl (6.3-8.2); eGFR 24.32
--- NOTE | 2025-03-11 14:15 | ED.GENMED ---
History of Present Illness
<Tori Lopez PA-C - Last Filed: 03/13/25 06:38>
General
Chief Complaint: Blood Pressure Problem
Source: patient
Exam Limitations: none
Time Seen by Provider: 03/11/25 13:53
Nursing documentation reviewed up to this point in time: agreed with
History of Present Illness
History of Present Illness:
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
Patient apparently last week probably about 6 days ago had a syncopal event which caused him to land on his left flank. He had pain and bruising to his ribs and left abdomen. He refused hospitalization at that time. Ever since then he has had low
running blood pressures, somewhere in the 80s with a bruise on his left abdomen and some pain with deep breathing. Patient has a chronic cough which he does not feel is worse since his fall. Today he was out with his and he suddenly nearly
passed out, she caught him on his way down and avoided head trauma. He was helped up by his son.
Patient did take all of his medications this morning including his carvedilol and his Eliquis. He is on multiple diuretics. He has chronic hyponatremia as well which was significant in the 120s during his hospitalization in September. Patient just
had an iron infusion about 2 weeks ago at [facility]. He has not been transfused with blood since September
He has not noticed that his stools are dark.
Past History
<Tori Lopez PA-C - Last Filed: 03/13/25 06:38>
Past History
ED Past Medical History: Arrthythmia (atrial fibrillation), CAD, CHF, HTN, Hypercholesterolemia, NIDDM, DE, Renal failure and Other (Carotid stenosis, gout, BPH, recurrent epistaxis)
ED Past Surgical History: Cardiac (CABG, PTCA with stent), Cholecystectomy and Other (Carotid endarterectomy)
Social History
Tobacco: Smoker
Alcohol: None
Drug: None
Personal:
Living: with family
Employment: Retired
Family History
Family History: Other (Noncontributory)
Review of Systems
<Tori Lopez PA-C - Last Filed: 03/13/25 06:38>
Review of Systems
Allergies reviewed?: Yes
All Other Systems: Not applicable
Phy Exam
<Tori Lopez PA-C - Last Filed: 03/13/25 06:38>
Physical Exam
Physical Exam:
GENERAL: Alert; pale; chronically ill appearing
EYE: pupils equal and reactive
NECK: Supple
ENT: o/p clr, mmm.
CARDIAC: irregularly irregular
LUNGS: Clear breath sounds bilaterally, no acute respiratory distress, no wheezes/rales/rhonchi
chest wall : mild tenderness to lower ribs on L
occ cough
ABDOMEN: Soft, without focal tenderness, no r/g, no cvat, normal bowel sounds
L flank bruising
RECTAL HEME POS stool
NEUROLOGICAL: Alert and oriented, no focal neuro deficits
SKIN: Warm and dry, skin intact.
MUSCULOSKELETAL: mild edema, well perfused. neg pedro's sign
PSYCH: Normal and appropriate interaction.
Course
<Tori Lopez PA-C - Last Filed: 03/13/25 06:38>
Orders/Labs/Results
Orders:
Orders
03/11/25 13:34
Complete Blood Count/With Diff Urgent
Comprehensive Metabolic Panel Urgent
Ferritin Urgent
Comment: ADD ON
Iron Urgent
PTT Urgent
Prothrombin Time Urgent
Total Iron Binding Urgent
03/11/25 14:08
Add On- LAB Urgent
Tests Added?: iron, ferritin, TIBC
03/11/25 14:09
CT Chest/abd/pel Wo Iv Cont Urgent
Comment:
Reason For Exam: L rib/abd trauma last week; thinners;
0.9% Sodium Chloride 250 ml [Nss] 250 ml IV BOLUS
Pantoprazole [Protonix IV] 40 mg IV NOW STA
03/11/25 14:14
Electrocardiogram (*1) Urgent
Reason for Study: Vertigo / Dizzy
EKG- Treatment ONCE
03/11/25 14:35
Type+Screen Urgent
Lactic Acid Urgent
03/11/25 14:44
Blood Bank Products [* Blood Bank Products] Urgent
Blood Bank Products: *Packed RBC Leuko(PRBC's)
Quantity: 2
Transfuse Today: Yes
Reason: Bleeding
03/11/25 14:48
CR Chest Portable - 1 View Urgent
Comment:
Reason For Exam: trauma, falls,
Reason Study Needs to be Portable: Unable to Transport
03/11/25 14:52
EKG [Electrocardiogram (*1)] Stat
Reason for Study: Abdominal Pain
EKG- Treatment ONCE
03/11/25 15:24
Admit/Transfer Patient As Directed
Co-Sign Provider:
Level of Care: Inpatient admission
Assign to:: ICU
Physician / Group: lenard wilhelm
Diagnosis: gi bleed
Reason for Hospitalization: gi bleed
Expected length of stay greater than two midnights?: Yes
ELOS- Estimated Length of Stay in days: 3
I certify the patient meets the requirements for IP care: Yes
03/11/25 15:26
PRN Pain Medication Management As Directed
May give lesser potent ordered pain med per pt: Yes
preference::
Protocol:: Medication orders for pain may be administered in a
manner that supports deferring to patient preference
when the pt is:
- Requesting an ordered lesser potent pain medication.
Least to most potent pain medications are defined
as: acetaminophen < NSAID < tramadol < opioids
(morphine, oxycodone, hydromorphone).
- Requesting a lesser dose of the same medication IF
ORDERED.
- Requesting a less intrusive route of administration
if both routes are prescribed by the provider (PO <
IV).
03/11/25 15:27
Prothrombin Complex(Pcc),Human [Kcentra] 3,603 unit Empty Viaflex Container 100 ml [Viaflex Empty Container] 0 ml IV NOW
Does patient have a dx of serious acute active bleeding?: Yes
Does patient have prior history of HIT?: No
03/11/25 15:32
Code Status As Directed
Resuscitation Status: Full Code
03/11/25 15:41
Activity As Directed
Activity Level: Bedrest
Bladder Scan As Directed
Follow Bladder Retention/Intermittent Cath Algorithm?: Yes
PRN if no void in __ hours: 6
Frequency: Per Retention Algorithm
If Bladder Scan Result >: 400
then:: Straight cath
Pneumatic Compression Sleeves As Directed
Type: Knee high
Pneumatic Compression Sleeves As Directed
Type: Thigh high
Straight Cath As Directed
Frequency: Per Retention Algorithm
Additional Instructions: straight cath as needed per acute urinary retention algorithm for 24 hrs
Additional Instructions: for bladder scan greater than 400 mL
Vital Signs As Directed
Frequency: Per unit guidelines
DX Deep Vein Thrombosis Video Routine
03/11/25 16:00
Dextrose 5%/0.45%Sodchl 1000ML [D5/0.45%NaCl] 1,000 ml IV 60 mls/hr
03/11/25 16:18
Osmolality, Random Urine Urgent
Date Specimen was Collected: 03/11/25
Time Specimen was Collected: 16:13
Urinalysis Reflex To Culture Urgent
Date Specimen was Collected: 03/11/25
Time Specimen was Collected: 16:13
Urine Creatinine Stat
Date Specimen was Collected: 03/11/25
Time Specimen was Collected: 16:13
03/11/25 18:26
Bisacodyl [Dulcolax] 10 mg RECTAL [id number] PRN
Docusate W/Senna [Senokot-S] 1 tablet PO BIDPRN PRN
Polyethylene Glycol Powder [Miralax] 17 grams PO DAILYPRN PRN
03/11/25 18:32
Urine Protein/Creat Ratio (Random) [Protein/Creat Ratio (Random)] Stat
Date Specimen was Collected: 03/11/25
Time Specimen was Collected: 18:30
Urine Sodium Stat
Date Specimen was Collected: 03/11/25
Time Specimen was Collected: 18:30
03/11/25 20:00
Pantoprazole [Protonix IV] 40 mg IV BID
03/12/25 04:01
Basic Metabolic Panel IN AM
Complete Blood Count/No Diff Q8
03/12/25 Breakfast
NPO
Allow oral meds: No
Allow clear liquids: No
NPO with Ice Chips: No
03/12/25 08:17
US Renal With Bladder Routine
Reason For Exam: maxim on ckd
Abnormal Lab Results
03/11/25 03/11/25
13:34 14:35
WBC 11.9 H 10^3/uL
(4.8-10.8)
RBC 1.87 L 10^6/uL
(4.70-6.10)
Hgb 6.7 L* g/dL
(13.0-18.0)
Hct 20.0 L* %
(39.0-52.0)
MCV 107.0 H fL
(80.0-94.0)
MCH 35.8 H pg
(27.0-31.0)
RDW 18.5 H %
(11.5-14.5)
Abs Immat Gran (auto) 0.1 H 10^3/uL
(0-0.05)
Absolute Neuts (auto) 8.7 H 10^3/uL
(1.4-6.5)
Absolute Monos (auto) 1.2 H 10^3/uL
(0.1-0.6)
Immature Gran % 1.1 H %
(0-0.5)
Lymphocytes % 14.4 L %
(20.5-51.1)
Monocytes % 10.3 H %
(1.7-9.3)
PT 23.3 H Sec
(11.4-14.6)
APTT 38.3 H Sec
(23.4-35.0)
Sodium 126 L mmol/L
(135-145)
Chloride 91 L mmol/L
(98-107)
BUN 147 H* mg/dl
(9-20)
Creatinine 2.6 H mg/dL
(0.7-1.3)
Glucose 219 H mg/dl
(70-99)
% Saturation 61 H %
(20-50)
Total Protein 5.8 L g/dl
(6.3-8.2)
Albumin 3.1 L g/dl
(3.5-5.0)
Crossmatch IS Only See Detail
03/11/25 13:34
03/11/25 13:34
Vital Signs
Initial and Last Documented VS:
Initial Vital Signs
Temp Pulse Resp BP Pulse Ox
36.4 C 85 16 88/44 96
03/11/25 13:25 03/11/25 13:25 03/11/25 13:25 03/11/25 13:25 03/11/25 13:25
Last Documented Vital Signs
Temp Pulse Resp BP Pulse Ox
36.4 C 45 19 104/46 97
03/13/25 06:04 03/13/25 06:00 03/13/25 06:00 03/13/25 06:00 03/13/25 06:00
<Fer Chester, DO - Last Filed: 03/11/25 14:56>
Orders/Labs/Results
Orders:
Orders
03/11/25 13:34
Complete Blood Count/With Diff Urgent
Comprehensive Metabolic Panel Urgent
Ferritin Urgent
Comment: ADD ON
Iron Urgent
PTT Urgent
Prothrombin Time Urgent
Total Iron Binding Urgent
03/11/25 14:08
Add On- LAB Urgent
Tests Added?: iron, ferritin, TIBC
03/11/25 14:09
CT Chest/abd/pel Wo Iv Cont Urgent
Comment:
Reason For Exam: L rib/abd trauma last week; thinners;
0.9% Sodium Chloride 250 ml [Nss] 250 ml IV BOLUS
Pantoprazole [Protonix IV] 40 mg IV NOW STA
03/11/25 14:14
Electrocardiogram (*1) Urgent
Reason for Study: Vertigo / Dizzy
EKG- Treatment ONCE
03/11/25 14:35
Type+Screen Urgent
Lactic Acid Urgent
03/11/25 14:44
Blood Bank Products [* Blood Bank Products] Urgent
Blood Bank Products: *Packed RBC Leuko(PRBC's)
Quantity: 2
Transfuse Today: Yes
Reason: Bleeding
03/11/25 14:48
CR Chest Portable - 1 View Urgent
Comment:
Reason For Exam: trauma, falls,
Reason Study Needs to be Portable: Unable to Transport
03/11/25 14:52
EKG [Electrocardiogram (*1)] Stat
Reason for Study: Abdominal Pain
EKG- Treatment ONCE
03/11/25 15:24
Admit/Transfer Patient As Directed
Co-Sign Provider:
Level of Care: Inpatient admission
Assign to:: ICU
Physician / Group: lenard wilhelm
Diagnosis: gi bleed
Reason for Hospitalization: gi bleed
Expected length of stay greater than two midnights?: Yes
ELOS- Estimated Length of Stay in days: 3
I certify the patient meets the requirements for IP care: Yes
03/11/25 15:26
PRN Pain Medication Management As Directed
May give lesser potent ordered pain med per pt: Yes
preference::
Protocol:: Medication orders for pain may be administered in a
manner that supports deferring to patient preference
when the pt is:
- Requesting an ordered lesser potent pain medication.
Least to most potent pain medications are defined
as: acetaminophen < NSAID < tramadol < opioids
(morphine, oxycodone, hydromorphone).
- Requesting a lesser dose of the same medication IF
ORDERED.
- Requesting a less intrusive route of administration
if both routes are prescribed by the provider (PO <
IV).
03/11/25 15:27
Prothrombin Complex(Pcc),Human [Kcentra] 3,603 unit Empty Viaflex Container 100 ml [Viaflex Empty Container] 0 ml IV NOW
Does patient have a dx of serious acute active bleeding?: Yes
Does patient have prior history of HIT?: No
03/11/25 15:32
Code Status As Directed
Resuscitation Status: Full Code
03/11/25 15:41
Activity As Directed
Activity Level: Bedrest
Bladder Scan As Directed
Follow Bladder Retention/Intermittent Cath Algorithm?: Yes
PRN if no void in __ hours: 6
Frequency: Per Retention Algorithm
If Bladder Scan Result >: 400
then:: Straight cath
Pneumatic Compression Sleeves As Directed
Type: Knee high
Pneumatic Compression Sleeves As Directed
Type: Thigh high
Straight Cath As Directed
Frequency: Per Retention Algorithm
Additional Instructions: straight cath as needed per acute urinary retention algorithm for 24 hrs
Additional Instructions: for bladder scan greater than 400 mL
Vital Signs As Directed
Frequency: Per unit guidelines
DX Deep Vein Thrombosis Video Routine
03/11/25 16:00
Dextrose 5%/0.45%Sodchl 1000ML [D5/0.45%NaCl] 1,000 ml IV 60 mls/hr
03/11/25 16:18
Osmolality, Random Urine Urgent
Date Specimen was Collected: 03/11/25
Time Specimen was Collected: 16:13
Urinalysis Reflex To Culture Urgent
Date Specimen was Collected: 03/11/25
Time Specimen was Collected: 16:13
Urine Creatinine Stat
Date Specimen was Collected: 03/11/25
Time Specimen was Collected: 16:13
03/11/25 18:26
Bisacodyl [Dulcolax] 10 mg RECTAL [id number] PRN
Docusate W/Senna [Senokot-S] 1 tablet PO BIDPRN PRN
Polyethylene Glycol Powder [Miralax] 17 grams PO DAILYPRN PRN
03/11/25 18:32
Urine Protein/Creat Ratio (Random) [Protein/Creat Ratio (Random)] Stat
Date Specimen was Collected: 03/11/25
Time Specimen was Collected: 18:30
Urine Sodium Stat
Date Specimen was Collected: 03/11/25
Time Specimen was Collected: 18:30
03/11/25 20:00
Pantoprazole [Protonix IV] 40 mg IV BID
03/12/25 04:01
Basic Metabolic Panel IN AM
Complete Blood Count/No Diff Q8
03/12/25 Breakfast
NPO
Allow oral meds: No
Allow clear liquids: No
NPO with Ice Chips: No
03/12/25 08:17
US Renal With Bladder Routine
Reason For Exam: maxim on ckd
Abnormal Lab Results
03/11/25 03/11/25
13:34 14:35
WBC 11.9 H 10^3/uL
(4.8-10.8)
RBC 1.87 L 10^6/uL
(4.70-6.10)
Hgb 6.7 L* g/dL
(13.0-18.0)
Hct 20.0 L* %
(39.0-52.0)
MCV 107.0 H fL
(80.0-94.0)
MCH 35.8 H pg
(27.0-31.0)
RDW 18.5 H %
(11.5-14.5)
Abs Immat Gran (auto) 0.1 H 10^3/uL
(0-0.05)
Absolute Neuts (auto) 8.7 H 10^3/uL
(1.4-6.5)
Absolute Monos (auto) 1.2 H 10^3/uL
(0.1-0.6)
Immature Gran % 1.1 H %
(0-0.5)
Lymphocytes % 14.4 L %
(20.5-51.1)
Monocytes % 10.3 H %
(1.7-9.3)
PT 23.3 H Sec
(11.4-14.6)
APTT 38.3 H Sec
(23.4-35.0)
Sodium 126 L mmol/L
(135-145)
Chloride 91 L mmol/L
(98-107)
BUN 147 H* mg/dl
(9-20)
Creatinine 2.6 H mg/dL
(0.7-1.3)
Glucose 219 H mg/dl
(70-99)
% Saturation 61 H %
(20-50)
Total Protein 5.8 L g/dl
(6.3-8.2)
Albumin 3.1 L g/dl
(3.5-5.0)
Crossmatch IS Only See Detail
03/11/25 13:34
03/11/25 13:34
Vital Signs
Initial and Last Documented VS:
Initial Vital Signs
Temp Pulse Resp BP Pulse Ox
36.4 C 85 16 88/44 96
03/11/25 13:25 03/11/25 13:25 03/11/25 13:25 03/11/25 13:25 03/11/25 13:25
Last Documented Vital Signs
Temp Pulse Resp BP Pulse Ox
36.4 C 45 19 104/46 97
03/13/25 06:04 03/13/25 06:00 03/13/25 06:00 03/13/25 06:00 03/13/25 06:00
<Tori Lopez PA-C - Last Filed: 03/13/25 06:38>
MDM/Problems Addressed
Differential Diagnosis Includes:
Anemia, GI bleed, sepsis, overdiuresis, critical aortic stenosis
MDM/Problems Addressed:
79-year-old male complex medical history including chronic A-fib on Eliquis, history of previous GI bleed, iron deficiency anemia, severe aortic stenosis declined TAVR previously
Presents for syncope last week and then a near syncopal episode today with hypotension. Patient apparently hit his side and ribs on the ground last week after passing out when he stood up.
Patient has denied headache. He says he refused to come to the hospital and his tried to convince him.
he since has been weak, hypotensive 80s and fell again without injury today and needed help up
on exam is pale, hypotensive, awake, no distress
afebrile
loud murmur c/w
no signs heart failure
some bruising abdomen/loer ribs from last week
heme POS stool
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
has not had valve repolacement
hg 6.7
given instability, will transfuse and reverse eliquis, last dose today
GI/ICU/CARDS aware
<Tori Lopez PA-C - Last Filed: 03/13/25 06:38>
*Pulse Oximetry
SaO2: 96
Oxygen Mode of Delivery: Room air
<Fer Chester DO - Last Filed: 03/11/25 14:56>
*Radiology
Radiology exam reviewed: preliminary read by ED provider
*Pulse Oximetry
Patient hypoxic: no
*Critical Care Note
Total Time (30-74mins, 75-104mins- exclusive of procedures): 32
ED Attending Note
<Tori Lopez PA-C - Last Filed: 03/13/25 06:38>
-
Portions of this chart may have been created with voice recognition software.� Occasional wrong word or��sound alike� substitutions may have occurred due to the inherent limitations of voice recognition software.
<Fer Chester DO - Last Filed: 03/11/25 14:56>
ED Attending Note
Patient seen and examined by attending physician: Yes
I performed the substantive portion of visit, reviewed & personally made and approve the management plan that is documented in note by myself or BARBRA.: Yes
ED Attending Note:
Seen with SHAYY examined independently 79-year-old male medically complex anticoagulated for A-fib after disease chronic renal sufficiency recurrent GI bleed, fall few days ago struck his ribs here he is in shock, suspect hypovolemic renal
insufficiency plan will be volume resuscitation transfusion likely reversal of his anticoagulation multiple consultations, patient is critically ill follow-up closely will also require advanced imaging to rule out intra abdominal intra chest injury,
high risk due to renal sufficiency but necessary
Discharge Plan
Departure
Patient Disposition: Admit
Date of Disposition: 03/11/25
Time of Disposition: 15:17
Admit to: ICU
Presentation/result/management discussed w/ accepting MD/DO: Hospitalist
Condition: Critical
Covid-19: Not Applicable
Discharge Problem:
Acute blood loss anemia
Interventions
Interventions:
*General Assessment Last Done: 03/11/25 13:25
*Neglect/Abuse Screening Last Done: 03/11/25 13:25
*ED- Fall Risk Assessment Last Done: 03/11/25 14:31
*Nursing Disposition Last Done: 03/11/25 17:56
ED- Cardiac Assessment Last Done: 03/11/25 14:31
ED- Neurological Assessment Last Done: 03/11/25 14:31
ED- Pulmonary Assessment Last Done: 03/11/25 14:31
Discharge Date and Time
Discharge Date/Time: 03/11/25 17:45
[2025-03-11 14:22] LABS: Blood Urea Nitrogen 147 mg/dl (9-20)
[2025-03-11 14:37] LABS: Hematocrit 20.0 % (39.0-52.0); Hemoglobin 6.7 g/dL (13.0-18.0); Mean Corp Hgb Conc. 33.5 g/dL (33.0-37.0); Mean Corpuscular Volume 107.0 fL (80.0-94.0); Nucleated Red Blood Cells % 0.4 % (-); Platelet Count 172 10^3/uL (130-400); Red Cell Dist. Width 18.5 % (11.5-14.5)
[2025-03-11] MEDS: PROTONIX IV 40 MG IV ×2 (14:37→19:46)
[2025-03-11] MEDS: NSS 250 IV (14:38)
--- NOTE | 2025-03-11 14:40 | EDRN ---
Received patient on stretcher with c/o generalized weakness. Patient denies dizziness,chest pain and SOB.
[2025-03-11] MEDS: KCENTRA 140 UNIT IV (15:46)
--- NOTE | 2025-03-11 15:48 | EDRN ---
Patient receiving [facility]
--- NOTE | 2025-03-11 16:03 | CON.INTV ---
Consultation
Consultation Request
Date/Time Consultation Requested: 03/11/2025-4:30 PM
Date/Time Consultation Performed: 03/11/2025- 45 PM
Requesting Provider: hospitalist
Performing Provider: Dr. Castrejon
Reason for Consultation: GI bleed/critical care management
Medical History
-
Chief Complaint: GI bleed
History of Present Illness:
79-year-old smoking male with underlying COPD, CAD, , CHF, hypertension, hyperlipidemia, atrial fibrillation on Eliquis, diabetes, chronic renal failure, BPH, with known previous GI bleed from ectasias in the stomach September 2024 presents with
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 . He has chronic shortness of breath and cough. He continues to smoke a
pack of cigarettes daily. He has no intention of quitting. He had some abdominal pain but that is resolved. He may have had some dark stools. He has a known history of GI bleed. He offers no complaints of increased leg swelling or focal
weakness.
Past Medical History
Past Medical History: None ( Hypertension. Hyperlipidemia. CAD/Stent. Aortic stenosis. Chronic CHF. COPD. Cigarette smoker. Atrial fibrillation/Eliquis. Diabetes. Chronic renal failure. BPH. Previous GI bleed/ectasia stomach September 2024.
cholecystectomy. Carotid endarterectomy.)
Social History
Tobacco: Smoker
Alcohol: None
Drug: None
Personal:
Living: With Family
Occupational Exposures: He reports possible asbestos exposure
Environmental Exposures: no known tuberculosis exposure
Family History
Family History: Reviewed & Not Pertinent ( Father-lung cancer and diabetes. Mother heart failure. Paternal grandfather diabetes.)
Allergies / Home Medications
Allergies
Allergy/AdvReac Type Severity Reaction Status Date / Time
rosiglitazone (From Avandia) Allergy Unknown Unknown Verified 01/18/23 08:24
grass pollen Allergy SNEEZING Verified 01/01/23 10:29
ragweed pollen Allergy NASAL Verified 01/01/23 10:29
CONGESTION
Home Medications
�Medication �Instructions �Recorded �Confirmed �Last Taken �Type
nitroglycerin 0.4 mg sublingual 0.4 mg sublingual [id number] PRN 10/12/12 09/11/24 09/10/24 History
tablet (Nitrostat) chest pain
allopurinol 100 mg tablet 150 mg PO BID Gout 08/04/16 09/11/24 09/10/24 History
carvedilol 6.25 mg tablet 3.125 mg PO BID Blood Clot 02/27/17 09/11/24 09/10/24 History
Prevention/Tx
cyanocobalamin (vitamin B-12) 1,000 mcg PO DAILY Supplement 10/04/19 09/11/24 09/10/24 History
1,000 mcg tablet
acetaminophen 500 mg tablet 500 mg PO DAILYPRN PRN pain 01/01/23 09/11/24 09/10/24 History
atorvastatin 80 mg tablet 80 mg PO DAILY High cholesterol 01/01/23 09/11/24 09/10/24 History
betamethasone dipropionate 0.05 % 1 applic topical BID BOTH KNEES 01/01/23 09/11/24 09/10/24 History
topical cream
brinzolamide 1 % eye 1 drp BOTH EYES BID@1200,2200 Eye 01/01/23 09/11/24 09/10/24 History
drops,suspension Condition
ferrous sulfate 325 mg (65 mg 325 mg PO DAILY@1600 Supplement 01/01/23 09/11/24 09/10/24 History
iron) tablet
Vegetable Pill Otc 1 tab PO DAILY Supplement 01/18/23 09/11/24 09/10/24 History
furosemide 80 mg tablet 80 mg PO BID@0800,1600 Fluid 01/18/23 09/11/24 09/10/24 History
Retention/Swelling
apixaban 5 mg tablet 5 mg PO BID Blood Clot 09/11/24 09/11/24 09/10/24 21:00 History
Prevention/Tx
colchicine 0.6 mg tablet 0.6 mg PO DAILYPRN PRN GOUTY ATTACK 09/11/24 09/11/24 2 Weeks Ago History
~08/28/24
fexofenadine 180 mg tablet 180 mg PO DAILYPRN PRN ALLERGIES 09/11/24 09/11/24 09/10/24 History
metolazone 2.5 mg tablet 2.5 mg PO DAILY@1530 Fluid 09/11/24 09/11/24 09/10/24 History
Retention/Swelling
mupirocin 2 % topical ointment 1 applic topical BID BLIATERAL LEG 09/11/24 09/11/24 09/10/24 History
WOUNDS
potassium chloride 20 mEq 20 meq PO DAILY@1800 Supplement 09/11/24 09/11/24 09/10/24 History
tablet,extended release
potassium chloride 20 mEq 40 meq PO BID@0800,1200 Supplement 09/11/24 09/11/24 09/10/24 History
tablet,extended release
spironolactone 25 mg tablet 12.5 mg PO DAILY Fluid 09/11/24 09/11/24 09/10/24 History
Retention/Swelling
vitamin E 268 mg (400 unit) capsule 268 mg PO DAILY Supplement 09/11/24 09/11/24 09/10/24 History
Centrum Adult 50 Plus 1 tab PO DAILY Supplement 09/12/24 09/12/24 Unknown History
amoxicillin 500 mg-potassium 1 tab PO BID 14 days #28 tabs 09/15/24 Unknown Rx
clavulanate 125 mg tablet
(Augmentin)
insulin glargine 100 unit/mL (3 15 unit (0.15 mL) SC HS Diabetes 09/15/24 09/11/24 09/10/24 Rx
mL) subcutaneous pen (Lantus #0 mL
Solostar U-100 Insulin)
insulin lispro 100 unit/mL 5 unit (0.05 mL) SC AC Diabetes #0 09/15/24 09/11/24 09/10/24 Rx
subcutaneous pen (Admelog SoloStar mL
U-100 Insulin lispro)
pantoprazole 40 mg granules 40 mg PO BID 30 days #60 ea 09/15/24 Unknown Rx
delayed-release for susp in packet
(Protonix)
Review of Systems
-
Unable to Obtain full review of systems at this time due to: Other ( per HPI)
Vitals / Labs / Diagnostic Testing
Vital Signs
Temp Pulse Resp BP Pulse Ox
97.6 F 80 19 92/60 98
03/11/25 13:25 03/11/25 15:45 03/11/25 15:45 03/11/25 15:45 03/11/25 15:45
Lab Data
03/11/25 13:34
03/11/25 13:34
Laboratory Results
03/11/25
13:34
PT 23.3 H
INR 2.05
APTT 38.3 H
Diagnostic Testing:
Physical Exam
-
Exam:
Well-nourished and well-developed in no apparent distress
HEENT-atraumatic, normocephalic
Neck-supple, no JVD, no bruit
Heart-regular rate and rhythm-no murmurs, rubs or gallops
Chest-clear to auscultation, no wheezes, crackles
Back-no tenderness
Abdomen-soft, nontender, nondistended, no hepatosplenomegaly
Extremities-no cyanosis, clubbing, edema and good peripheral pulses
Integument-intact, no rashes, lesions or ecchymosis
Neurology-alert and oriented, nonfocal motor and sensory exam
Assessment
-
79-year-old smoking male with underlying COPD, CAD, , CHF, hypertension, hyperlipidemia, atrial fibrillation on Eliquis, diabetes, chronic renal failure, BPH, with known previous GI bleed from ectasias in the stomach September 2024 presents with
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
Gastrointestinal bleed-Suspect upper
Anemia due to acute blood loss-hemoglobin 6.7-macrocytic
Hypotension due to blood loss
Leukocytosis
Subtle left-sided rib fractures-7th, 9th, 10th and 11th ribs, no pneumothorax-status post fall
JAY
Hyperglycemia
Hyponatremia
Conditions present prior to admission:
Hypertension.
Hyperlipidemia.
CAD/ [place] 1997, 2000/Stent.
Aortic fxjpuqye-ibwort-QDW 0.8 cm
Pulmonary hypertension-PA systolic 64
Chronic CHF-EF 35%
COPD-FEV1 1.7 L- -70%, DLCO 38%
Cigarette smoker.
Atrial fibrillation/Eliquis.
Diabetes.
Chronic renal failure.
BPH.
Colon polyp
Hiatal hernia
Glaucoma
Neuropathy
Gout
Previous GI bleed/ectasia stomach September 2024.
Cholecystectomy 2015. Carotid endarterectomy-right 2012. Umbilical hernia repair 2014. Tonsillectomy 1951. Pacemaker/defibrillator 2017.
Plan
Patient will be admitted to medical intensive care with active bleeding, critically ill and in need of resuscitation
Supplemental oxygen as needed
Aspiration precautions
Incentive spirometry
Nebulizers as needed-underlying COPD-moderate to severe-not using any inhalers or nebulizers at home-significant wheezes and rhonchi on exam
Check chest x-ray
Conservative therapy for rib fractures-hug me pillow, no signs of pneumothorax
Monitor hemoglobin
Transfuse packed red blood cells and FFP as needed
Monitor coagulopathy
Check iron studies
Check B12 and folate
GI evaluation-pending
CT chest abdomen and pelvis-pending
Endoscopy per GI
Ocreotide drip
PPI drip
Tenuous cardiac status with EF 35%, severe aortic stenosis and moderate mitral regurgitation
Monitor for signs of CHF
Monitor renal function-suspect portion of BUN elevation due to GI bleed
Replace electrolytes
Consider nephrology evaluation if renal function worsens
Monitor blood sugar
Insulin supplementation as needed
DVT prophylaxis-mechanical
GI prophylaxis-on PPI
Aspiration precautions
Nutrition per GI
Early mobilization once stabilized
Last saw Dr. De Oliveira 03/04/2023 for underlying COPD and shortness of breath-has not followed up since
Critical care statement: A total of 85 minutes of critical care time was provided for this patient today. This includes management of unstable vital signs, management of transfusions, evaluation of the patient at bedside, reviewing the patient's
pertinent medical records including radiographs, microbiology, laboratory evaluations, and discussion with primary team, consultants, pharmacy, nutrition, physical therapy, case management, charge nurse, critical care nursing, and respiratory
therapy.
Diagnostic data:
Chest x-ray/10/24-NAD
Chest x-ray-01/01/23: Images reviewed. No active cardiopulmonary disease. Pacemaker.
Cardiac CT 05/27/17: 13 mm lymph node left lateral to the distal trachea and anterior to the descending thoracic aorta. Slightly enlarged but nonspecific.
Pulmonary function studies-06/10/17: ([facility]): Spirometry was normal. The forced vital capacity was 3.09 L or 86% of predicted. The FEV1 was 2.23 L or 85% of predicted. The FEV1/FVC ratio was 72%. Lung volumes revealed a normal total
lung capacity of 6.5 L or 105% of predicted. Moderate air trapping is present. The RV/TLC ratio was 51% with a predicted value being 42%. The diffusing capacity was moderately reduced at 12.3 or 54% of predicted consistent with a moderate gas
exchange deficit.�������.�������
Pulmonary function studies-03/04/23: Spirometry demonstrated mild obstructive lung disease. The forced vital capacity was 2.70 L or 80% of predicted. The FEV1 was 1.67 L or 70% of predicted. The FEV1/FVC ratio was 62%. There was no improvement in the
FEV1 postbronchodilator. Lung volumes revealed a normal total lung capacity of 90% of predicted. There was no air trapping. The diffusing capacity was severely reduced at 8.4 L or 38% of predicted consistent with a severe gas exchange deficit.����
Echocardiogram 12/03/22: EF 50%. Stage III diastolic dysfunction. Severe aortic stenosis with gradients 54/28, aortic valve area 0.8 cm 2, PA pressures 64 mmHg. Mild dilation of the aorta measuring 4 cm.��
Echocardiogram 10/09/2024-EF 35-40%, moderate mitral regurgitation, severe aortic stenosis-KAELYN 0.8 cm, PA systolic 64�����.�������
Cardiac catheterization-01/18/23: Wedge 30. Elevated left and right ventricular filling pressures. PA pressures 85/31 with a mean of 46. Moderate to severe aortic stenosis. It is Aortic valve area 1.0 cm 2. Aortic valve gradient 27 mmHg. Graft
angiography-see report. EF 45-50% with severe hypokinesis of the posterior lateral wall.
Data Reviewed
-
PFT: Report reviewed by me
EKG: Tracing personally visualized and interpreted and Report reviewed by me
Radiology: Image personally visualized and interpreted and Report reviewed by me
CT Scan: Report reviewed by me
Medical Tests (Nuc Med, Echo etc): Report reviewed by me
Labs: Labs reviewed by me
Old Records: Reviewed
Critical Care Time (in minutes): 85
[2025-03-11 16:06] LABS: Iron 171 ug/dl (49-181)
[2025-03-11 16:08] LABS: Total Iron Binding Capacity 280 ug/dl (261-462)
--- NOTE | 2025-03-11 16:14 | EDRN ---
Patient receiving PRBC. Explained to patient signs and symptoms of a transfusion reaction. Verbalized understanding.
--- NOTE | 2025-03-11 16:31 | EDRN ---
Patient tolerating PRBC. Asymptomatic of a transfusion reaction.
[2025-03-11 16:33] LABS: Urine Character Clear (Clear)
[2025-03-11 16:43] LABS: Ferritin 263.0 ng/ml (17.9-464.0)
[2025-03-11 16:53] LABS: Urine Red Blood Cell 0-2 /HPF (0-2)
--- NOTE | 2025-03-11 17:02 | HPS.HSE ---
Family Physician
-
Family Physician: Christiano Eason
Chief Complaint
-
vane syncope
History of Present Illness
79 male history of COPD CAD aortic stenosis CHF hypertension hyperlipidemia atrial fibrillation Eliquis, diabetes, chronic renal failure, BPH for known history of previous GI bleed from ectasias in the stomach who presents with weakness and near
syncope today and had a syncopal episode 1 week ago which caused him to land and fall on his chest left-sided flank pain at that time. At this time he is presenting tells me that his stool is a tootsie roll chocolate color. He is hypotensive with
a hemoglobin of 6.7. EKG atrial fibrillation. Should be noted his sodium is 127, 2.6 with a BUN of 147.
Medical History
Past Medical History
Past Medical History: Reports CAD, COPD, GERD, HTN, Hypercholesterolemia, IDDM and Renal Failure
Past Surgical History: Reports Cardiac
Social History
Unable to obtain full social history at this time due to: Acuity
Tobacco: Smoker
Alcohol: None
Drug: None
Personal:
Living: With Family
Family History
Family History: Not pertinent
Allergies / Home Medications
Allergies reflects when Allergies were last updated in [facility].
Home Medications with original date entered in [facility]
Allergy/Medication List:
Allergies
Allergy/AdvReac Type Severity Reaction Status Date / Time
rosiglitazone (From Avandia) Allergy Unknown Unknown Verified 01/18/23 08:24
grass pollen Allergy SNEEZING Verified 01/01/23 10:29
ragweed pollen Allergy NASAL Verified 01/01/23 10:29
CONGESTION
Home Medications
allopurinol 100 mg tablet 150 mg PO BID Gout 08/04/16
carvedilol 6.25 mg tablet 3.125 mg PO BID Blood Clot Prevention/Tx 02/27/17
cyanocobalamin (vitamin B-12) 1,000 mcg tablet 1,000 mcg PO DAILY Supplement 10/04/19
acetaminophen 500 mg tablet 1,000 mg PO HS 01/01/23
atorvastatin 80 mg tablet 80 mg PO DAILY High cholesterol 01/01/23
brinzolamide 1 % eye drops,suspension 1 drp BOTH EYES BID@1200,2200 Eye Condition 01/01/23
Vegetable Pill Otc 1 tab PO DAILY Supplement 01/18/23
furosemide 80 mg tablet 120 mg PO BID Fluid Retention/Swelling 01/18/23
apixaban 5 mg tablet 5 mg PO BID Blood Clot Prevention/Tx 09/11/24
metolazone 2.5 mg tablet 2.5 mg PO BID Fluid Retention/Swelling 09/11/24
mupirocin 2 % topical ointment 1 applic topical BIDPRN PRN B/L leg wounds 09/11/24
potassium chloride 20 mEq tablet,extended release 20 meq PO QPM Supplement 09/11/24
potassium chloride 20 mEq tablet,extended release 40 meq PO BID@0800,1200 Supplement 09/11/24
spironolactone 25 mg tablet 12.5 mg PO DAILY Fluid Retention/Swelling 09/11/24
Centrum Adult 50 Plus 1 tab PO DAILY Supplement 09/12/24
Iron Infusion 1 dose IV Q8W PRN iron supplement 03/11/25
insulin aspart U-100 100 unit/mL (3 mL) subcutaneous pen (Novolog FlexPen U-100 Insulin aspart) 6 unit SC AC 03/11/25
insulin glargine 100 unit/mL (3 mL) subcutaneous pen (Lantus Solostar U-100 Insulin) 24 unit SC DAILY@0000 Diabetes 03/11/25
triamcinolone acetonide 0.1 % topical cream 1 applic topical BID apply to B/L legs 03/11/25
vitamin E 100 unit tablet 100 unit PO DAILY 03/11/25
Review of Systems
-
Unable to obtain full review of systems at this time due to: Acuity
A 12 point ROS was completed and negative except as noted: Yes
Physical Exam
Vital Signs
Vital Signs
Temp Pulse Resp BP Pulse Ox
97.5 F 79 20 101/50 98
03/11/25 16:26 03/11/25 16:26 03/11/25 16:26 03/11/25 16:26 03/11/25 15:45
Physical Exam
General: Comfortable and Cachectic
HEENT: NormoCephalic and Anicteric; No Sonterra Conjunctivae (pale)
Respiratory: Clear
Cardiac: S1/S2 and Irregular Rhythm
GI: Soft, Non Tender and Non Distended
Rectal: Deferred by Provider
Genito-urinary: Deferred by me
Musculoskeletal: No Clubbing and No Cyanosis
Skin: Other (chronic venostasis changes b/l)
Neuro: Awake and AO x 3
Laboratory Results
-
03/11/25 13:34
03/11/25 13:34
Laboratory Results
PT 23.3 Sec (11.4-14.6) H 03/11/25 13:34
INR 2.05 03/11/25 13:34
APTT 38.3 Sec (23.4-35.0) H 03/11/25 13:34
Lactic Acid 1.9 mmol/L (0.7-2.0) 03/11/25 14:35
Total Bilirubin 0.7 mg/dl (0.2-1.3) 03/11/25 13:34
AST 22 U/L (17-59) 03/11/25 13:34
ALT 17 U/L (0-50) 03/11/25 13:34
Alkaline Phosphatase 78 U/L (38-126) 03/11/25 13:34
Impression/Plan
-
Hemorrhagic shock
Acute blood loss anemia
Chronic macrocytic anemia
Symptomatic anemia
Hyponatremia
JAY
CKD 3B
History of GI bleed with angioectasias
Atrial fibrillation�chronic
Hypertension
CABG
Severe aortic stenosis
Insulin-dependent diabetes mellitus
Hyperlipidemia
Chronic HFrEF 35 to 40%
Gout
Hyperlipidemia
S/p reversal with Kcentra
Maintain 2 large-bore IVs
Twice daily IV PPI
N.p.o.
Transfuse 1 unit PRBC
Consent obtained by ER
CBC Q8
Hold anticoagulant
SCD
GI consult
Keep MAP greater than 65
Starts pressors
If becomes hemodynamically unstable/profuse bleeding and obtain a CT GI bleeding study or RBC tagged scan based off of renal function
Urine studies
Renal bladder ultrasound
IV fluids dextrose containing
Hold short acting insulin as n.p.o.
Decrease long-acting insulin
Start 5 mg metoprolol tartrate IV every 6 hours prn for afib rvr
Continue breathing treatments that were ordered by pulmonary
Hold diuretics
Hold allopurinol on discharge will need to be renally dosed
Hold statin until able to tolerate p.o. intake
--- NOTE | 2025-03-11 17:52 | EDRN ---
Report given to BA Malloy in ICU. Patient taken to room 3366 on monitor on O2 2LNC with PRBC infusing. Patient tolerating well. Asymptomatic of a transfusion reaction.
--- NOTE | 2025-03-11 19:25 | PTCARENOTE ---
Pt admitted to ICU bed 3366 from ED. Pt AAOx3. Afib with PVCs and occasional V paced beats. +2 LE pitting edema. SpO2 93-94% on room air while awake. Dipped to 89% when asleep with HOB flat. Now 98% on 2L NC. Moist cough reported as chronic.
No BM. Clear yellow urine via condom cath. 1st unit of PRBC completed.
[2025-03-11] MEDS: DUONEB 3 ML INH (19:42)
[2025-03-11] MEDS: PULMICORT 0.5 MG INH (19:42)
[2025-03-11] MEDS: NSS (PRESERVATIVE FREE) 10 ML IV (19:46)
--- NOTE | 2025-03-11 20:00 | PTCARENOTE ---
labor mediator, pt aaox3, AFib, freq pvcs HR 60-70s. B/L IV WNL. Sat 98% on 2LNC. c/o some abd discomfort- discussed w/CHEMICAL PACKAGER- awaiting Ofirmev order. pt for 2nd unit PRBC. POC discussed. bed alarm on, call moreno with pt.
[2025-03-11] MEDS: OFIRMEV 100 IV (20:30)
[2025-03-11] MEDS: LANTUS 0.07 UNITS SC (23:11)
[2025-03-11 23:38] LABS: Glucose - Point of Care 203 mg/dl (70-99)
[2025-03-12] VITALS (25 sets, daily range): BP systolic 92–117; BP diastolic 39–94; BMI 24.4
[2025-03-12 00:40] LABS: Calcium 9.4 mg/dl (8.4-10.2); Carbon Dioxide 24 mmol/L (22-30); Chloride 96 mmol/L (98-107); Estimated Creatinine Clearance 25 ml/min; Glucose 162 mg/dl (70-99); Potassium 3.7 mmol/L (3.5-5.1); Sodium 127 mmol/L (135-145); eGFR 29.72
[2025-03-12 00:46] LABS: Hematocrit 23.8 % (39.0-52.0); Hemoglobin 8.1 g/dL (13.0-18.0)
[2025-03-12 00:50] LABS: Blood Urea Nitrogen 148 mg/dl (9-20)
[2025-03-12] MEDS: NSS 500 IV (01:15)
--- NOTE | 2025-03-12 01:15 | PTCARENOTE ---
KFlahertyNP aware of SBP, 500cc NSS bolus per order. no further changes.
[2025-03-12 04:21] LABS: Hematocrit 23.7 % (39.0-52.0); Hemoglobin 8.1 g/dL (13.0-18.0); Mean Corp Hgb Conc. 34.2 g/dL (33.0-37.0); Mean Corpuscular Volume 99.6 fL (80.0-94.0); Platelet Count 160 10^3/uL (130-400); Red Cell Dist. Width 20.7 % (11.5-14.5)
[2025-03-12 04:54] LABS: Calcium 9.2 mg/dl (8.4-10.2); Carbon Dioxide 23 mmol/L (22-30); Chloride 97 mmol/L (98-107); Estimated Creatinine Clearance 25 ml/min; Glucose 139 mg/dl (70-99); Potassium 4.1 mmol/L (3.5-5.1); Sodium 127 mmol/L (135-145); eGFR 29.72
--- NOTE | 2025-03-12 05:00 | PTCARENOTE ---
no changes in pt assessment.
[2025-03-12 05:13] LABS: Blood Urea Nitrogen 155 mg/dl (9-20)
[2025-03-12] MEDS: DUONEB 3 ML INH ×4 (07:18→19:14)
[2025-03-12] MEDS: PULMICORT 0.5 MG INH ×2 (07:19→19:14)
--- NOTE | 2025-03-12 07:35 | W.PN.INTV ---
Today's Communication / Plan
Recommendations
Status post 2 units transfusion, follow hemoglobin in p.m.
Follow creatinine, increased to 2.2
Remains off anticoagulation
Cardiology correspondence reviewed
Remains n.p.o.
Assessment
-
79-year-old smoking male with underlying COPD, CAD, , CHF, hypertension, hyperlipidemia, atrial fibrillation on Eliquis, diabetes, chronic renal failure, BPH, with known previous GI bleed from ectasias in the stomach September 2024 presents with
hypotension, near syncope and weakness felt to have recurrent GI bleed and transferred to ICU-migrant leader consulted for GI bleed/hypotension/critical care management 03/11/2025.
Gastrointestinal bleed-Suspect upper
Anemia due to acute blood loss-hemoglobin 6.7-macrocytic
Hypotension due to blood loss
Leukocytosis
Subtle left-sided rib fractures-7th, 9th, 10th and 11th ribs, no pneumothorax-status post fall
JAY
Hyperglycemia
Hyponatremia
Conditions present prior to admission:
Hypertension.
Hyperlipidemia.
CAD/ DC 1997, 2000/Stent.
Aortic efbcgogp-osbrlr-PUV 0.8 cm
Pulmonary hypertension-PA systolic 64
Chronic CHF-EF 35%
COPD-FEV1 1.7 L- -70%, DLCO 38%
Cigarette smoker.
Atrial fibrillation/Eliquis.
Diabetes.
Chronic renal failure.
BPH.
Colon polyp
Hiatal hernia
Glaucoma
Neuropathy
Gout
Previous GI bleed/ectasia stomach September 2024.
Cholecystectomy 2015. Carotid endarterectomy-right 2013. Umbilical hernia repair 2014. Tonsillectomy 1951. Pacemaker/defibrillator 2017.
Plan/recommendations
At this time, patient appears to be comfortable without symptoms
Describing mild rib discomfort with pleurisy but denies shortness of breath, currently on room air, 2 L
Chest exam with mild wheezing
Desaturates to 89% while sleeping
Status post 2 units of blood, recent hemoglobin 8.1
Moving forward
Continue with close monitoring
No plans for endoscopy at this time
No further evidence of GI bleed at this time per nursing
Repeat hemoglobin at 3 PM
Patient received Kcentra on admission
Abdominal CT without acute findings
Remains on Protonix
GI correspondence reviewed
Chest x-ray unremarkable
CT chest with mild interstitial changes, no pneumothorax
Rib fractures noted
Cardiology following
Significant valvular disease noted
Echocardiogram pending
Renal ultrasound pending
Tenuous cardiac status with EF 35%, severe aortic stenosis and moderate mitral regurgitation
Monitor for signs of CHF
Monitor renal function-suspect portion of BUN elevation due to GI bleed
Replace electrolytes
Creatinine 2.2, azotemia noted secondary to GI bleed
Continue to follow closely.
Urine output adequate
Monitor blood sugar
Insulin supplementation as needed
DVT prophylaxis-mechanical
GI prophylaxis-on PPI gtt
Aspiration precautions
Last saw Dr. De Oliveira 03/04/2023 for underlying COPD and shortness of breath-has not followed up since
Critical care statement: A total of 31 minutes of critical care time was provided for this patient today. This includes management of unstable vital signs, management of transfusions, evaluation of the patient at bedside, reviewing the patient's
pertinent medical records including radiographs, microbiology, laboratory evaluations, and discussion with primary team, consultants, pharmacy, nutrition, physical therapy, case management, charge nurse, critical care nursing, and respiratory
therapy.
Diagnostic data:
Chest x-ray/10/24-NAD
Chest x-ray-01/01/23: Images reviewed. No active cardiopulmonary disease. Pacemaker.
Cardiac CT 05/27/17: 13 mm lymph node left lateral to the distal trachea and anterior to the descending thoracic aorta. Slightly enlarged but nonspecific.
Pulmonary function studies-06/10/17: ([facility]): Spirometry was normal. The forced vital capacity was 3.09 L or 86% of predicted. The FEV1 was 2.23 L or 85% of predicted. The FEV1/FVC ratio was 72%. Lung volumes revealed a normal total
lung capacity of 6.5 L or 105% of predicted. Moderate air trapping is present. The RV/TLC ratio was 51% with a predicted value being 42%. The diffusing capacity was moderately reduced at 12.3 or 54% of predicted consistent with a moderate gas
exchange deficit.�������.�������
Pulmonary function studies-03/04/23: Spirometry demonstrated mild obstructive lung disease. The forced vital capacity was 2.70 L or 80% of predicted. The FEV1 was 1.67 L or 70% of predicted. The FEV1/FVC ratio was 62%. There was no improvement in the
FEV1 postbronchodilator. Lung volumes revealed a normal total lung capacity of 90% of predicted. There was no air trapping. The diffusing capacity was severely reduced at 8.4 L or 38% of predicted consistent with a severe gas exchange deficit.����
Echocardiogram 12/03/22: EF 50%. Stage III diastolic dysfunction. Severe aortic stenosis with gradients 54/28, aortic valve area 0.8 cm 2, PA pressures 64 mmHg. Mild dilation of the aorta measuring 4 cm.��
Echocardiogram 10/09/2024-EF 35-40%, moderate mitral regurgitation, severe aortic stenosis-KAELYN 0.8 cm, PA systolic 64�����.�������
Cardiac catheterization-01/18/23: Wedge 30. Elevated left and right ventricular filling pressures. PA pressures 85/31 with a mean of 46. Moderate to severe aortic stenosis. It is Aortic valve area 1.0 cm 2. Aortic valve gradient 27 mmHg. Graft
angiography-see report. EF 45-50% with severe hypokinesis of the posterior lateral wall.
Subjective Dataa
Subjective Data
Date of Service:
Date of Service: March 12, 2025
Subjective:
Patient is status post 2 units of blood. Denies abdominal pain, nausea. Has some mild rib discomfort with deep breathing. Currently lying flat. Remains critically ill with ongoing GI bleed
Objective Data
Data Reviewed
Vital Signs / I&O / Oxygen:
Vital Signs
Temp Pulse Resp BP Pulse Ox
97.4 F 50 20 94/66 98
03/12/25 03:56 03/12/25 07:22 03/12/25 07:22 03/12/25 06:16 03/12/25 07:22
Intake and Output
03/11/25 03/12/25 03/13/25
06:59 06:59 06:59
Intake Total 1200 / 1200
Output Total 1400 / 1400
Balance -200 / -200
SaO2 98
Nasal Cannula flow liters per 3
minute
Physical Exam
General: Comfortable
HEENT: Normocephalic and Anicteric
Cardiovascular: S1-S2, Regular Rhythm, Murmur (n), Rub (n) and Peripheral Edema (n)
Respiratory: Wheeze (Few scattered), Crackles (n), Rhonchi (Few) and Non-Labored Respirations
GI: Soft, Non Distended, Tender and Normal Bowel Sounds
Neurology: Awake, Alert, Oriented and No Motor Deficits (Moves all extremities)
Skin: Rash (n), Bruising (n) and Other (Mild pallor)
Labs/Micro/Reports
Lab Data
03/12/25 04:01
03/12/25 04:01
Laboratory Results
03/11/25
13:34
PT 23.3 H
INR 2.05
APTT 38.3 H
--- NOTE | 2025-03-12 07:39 | CON.GI ---
Addendum entered and electronically signed by Tori Bautista DO 03/12/25 09:09:
The patient was seen and examined by me independently in collaboration with the nurse practitioner.
Past medical history/social history/medications/allergies/family history reviewed.
Lab data and imaging data reviewed.
Robert An is a 79 y.o. male with history of afib on Xarelto, CAD s.p CABG, PCI, pacemaker/defibrillator, , CHF, DM, HTN, HLD, CKD, MELANIE tobacco use, colon polyps and history of obscure GI bleeding admitted with near syncope, found to be
hypotensive with a hemoglobin of 6.7, MCV 107, Plt 172. Previous hemoglobin of 8.6 on 11/06/24. He also reports that prior to his presentation suffering a fall and hitting his ribs, refused to come to the ED at that time.�He was given kcentra on
arrival. Hgb improved to 8.1 x2 following transfusion. 2 units order, 1 transfused.
He has a history of obscure GI bleeding, negative EGD/Colonoscopy/Capsule in 2016, negative EGD/Colonoscopy in [address] Pinzon and then most recently during admission in 09/2024, EGD with a single non bleeding AVM in the stomach, treated with APC
and clip placed, colonoscopy with inadequate prep. He was advised to either repeat EGD or proceed with VCE and to call the office once he decided how he wanted to proceed. It was also recommended that he consider watchman procedure to help decrease
his risk of future GI bleeding. He reports having an iron transfusion with [facility] about 2 weeks prior to admission, last blood transfusion was during admission in September.�
Hgb 6.7--> 8.1 s/p 1 unit of PRBC transfused
MCV 107
INR 2.05
Plt 172
Iron 171
%sat 61
Ferritin 263
A/P: 79 y.o. male with multiple medical comorbidities on anticoagulation and history of obscure GI bleeding admitted with near syncope found to be hypotensive and anemic with hemoglobin of 6.7.�He was also noted to have periods of bradycardia and
ectopy. Last stool was 3 days ago. He denies having any melena.
Prior workup in 2017, 2019 without identifiable cause of anemia. Recent EGD/Colonoscopy in September with 1 NONbleeding AVM in the stomach, it is very possible this was not the culprit, but treated anyway.�
-2 large peripheral Gauge IVs
-Transfuse for Hgb <8 in setting of cardiac disease
-Hold eliquis
-PPI gtt
-trend H&H. No signs of active or unstable GI bleeding, suspect slow ooze from small bowel source vs. diuelfaoy. No clear source of bleeding found on prior workup dating back to 2017.
-hold on EGD for now�
-t/c watchman procedure, if patient deemed candidate and agreeable�
Will follow.
Original Note:
Consultation
-
Date/Time Consultation Requested: 03/11/25 1700
Date/Time Consultation Performed: 03/12/25 0730
Requesting Provider: Sean Amaral MD
Performing Provider: ANASTACIO Dorsey, Angeline Bautista DO
Reason for Consultation: symptomatic anemia
Medical History
Chief Complaint / HPI
Chief Complaint: syncope
History of Present Illness:
Pt is a 79yo with hx AFib on Eliquis, CAD with prior CABG, Pacer/defib, prior PTCA, COPD, tobacco abuse, CHF with echo in 2/3 with EF 35-40%, HTN, hypercholesterolemia, NIDDM, CKD, moderate to Severe , anemia, HH, prior GI bleeding with noted
angioectasia in stomach, carotid stenosis, gout, BPH, epistaxis, colon polyps ,prior CEA and marjan with onset weakness and syncope. He initially had fall last week with rib injury and bruising and declined to come to ER. Since that time noted
with hypotension and near syncope prompting ER. On arrival noted with periods of bradycardia, ectopy, with hypotension BP to 80's and hbg 6.7 with BUN 147 and creat 2.6 albumin 3.1.. Pt states last stool 3 days ago. Initially yellow brown then
darker brown after taking some iron. PT did have admission in September with anemia and hbg down to 7.1 and iron deficiency. During that admission he completed EGD with small non bleeding angioectasia in stomach with APC and poor prep colon with IH
and concern for underlying AVM's in setting of severe . He did have GI follow up with recommended IV iron and declined further GI procedures. Prior hx also with multiple neg EGD, colon and capsules dating back to 2017. He did discuss watchman
and TAVR and recommended cards follow up to discuss.
Pt otherwise denies odynophagia, dysphagia, GERD, nausea, vomiting, abdominal pain (except left sided rib pain), diarrhea, constipation, red or black stools. CT chest/abd/pelvis in on admission with rib fx, no pneumo/hemothorax, no
traumatic injury. intestitial fibrosis.
Past Medical History
Past Medical History: Arrhythmias (afib ), CAD, CHF, HTN, Hypercholesterolemia, NIDDM, Renal Failure (CKD), Valvular Disease (moderate to severe ) and Other (anemia, prior GI bleeding with noted angioectasia in stomach, carotid stenosis, gout,
BPH, epistaxis, colon polyps)
Past Surgical History: Cardiac (CABG, prior PTCA with stent, pacer/defib), Cholecystectomy and Other (CEA)
Social History
Tobacco: Smoker
Alcohol: None
Drug: None
Personal:
Living: With Family
Family History
Family History: Other (no family hx GI issues )
Allergies / Home Medications
Allergy/AdvReac Type Severity Reaction Status Date / Time
rosiglitazone (From Avandia) Allergy Unknown Unknown Verified 01/18/23 08:24
grass pollen Allergy SNEEZING Verified 01/01/23 10:29
ragweed pollen Allergy NASAL Verified 01/01/23 10:29
CONGESTION
�Medication �Instructions �Recorded
allopurinol 100 mg tablet 150 mg PO BID Gout 08/04/16
carvedilol 6.25 mg tablet 3.125 mg PO BID Blood Clot 02/27/17
Prevention/Tx
cyanocobalamin (vitamin B-12) 1,000 mcg PO DAILY Supplement 10/04/19
1,000 mcg tablet
acetaminophen 500 mg tablet 1,000 mg PO HS 01/01/23
atorvastatin 80 mg tablet 80 mg PO DAILY High cholesterol 01/01/23
brinzolamide 1 % eye 1 drp BOTH EYES BID@1200,2200 Eye 01/01/23
drops,suspension Condition
Vegetable Pill Otc 1 tab PO DAILY Supplement 01/18/23
furosemide 80 mg tablet 120 mg PO BID Fluid 01/18/23
Retention/Swelling
apixaban 5 mg tablet 5 mg PO BID Blood Clot 09/11/24
Prevention/Tx
metolazone 2.5 mg tablet 2.5 mg PO BID Fluid 09/11/24
Retention/Swelling
mupirocin 2 % topical ointment 1 applic topical BIDPRN PRN B/L 09/11/24
leg wounds
potassium chloride 20 mEq 20 meq PO QPM Supplement 09/11/24
tablet,extended release
potassium chloride 20 mEq 40 meq PO BID@0800,1200 Supplement 09/11/24
tablet,extended release
spironolactone 25 mg tablet 12.5 mg PO DAILY Fluid 09/11/24
Retention/Swelling
Centrum Adult 50 Plus 1 tab PO DAILY Supplement 09/12/24
Iron Infusion 1 dose IV Q8W PRN iron supplement 03/11/25
insulin aspart U-100 100 unit/mL 6 unit SC AC 03/11/25
(3 mL) subcutaneous pen (Novolog
FlexPen U-100 Insulin aspart)
insulin glargine 100 unit/mL (3 24 unit SC DAILY@0000 Diabetes 03/11/25
mL) subcutaneous pen (Lantus
Solostar U-100 Insulin)
triamcinolone acetonide 0.1 % 1 applic topical BID apply to B/L 03/11/25
topical cream legs
vitamin E 100 unit tablet 100 unit PO DAILY 03/11/25
Review of Systems
-
History Source: Patient
Constitutional: Reports Fatigue
EENT: Reports No Symptoms
Respiratory: Reports No Symptoms
Cardiac: Reports Chest Pain (left sided with rib fractures and fall ) and Syncope
Abdomen/GI: Reports No Symptoms
: Reports Difficulty Voiding
Neurological: Reports Weakness
Endocrine: Reports No Symptoms
Hematologic/Lymphatic: Reports No Symptoms
Vital Signs
Temp Pulse Resp BP Pulse Ox
97.4 F 50 20 94/66 98
03/12/25 03:56 03/12/25 07:22 03/12/25 07:22 03/12/25 06:16 03/12/25 07:22
Physical Exam
Exam
General: Well Developed, Well Nourished and No Apparent Distress
HEENT: Normocephalic and Anicteric
Respiratory: Rhonchi
Cardiac: Irregular Rhythm (with ectopy ) and Murmur
GI: Soft, Non Tender and Non Distended
Rectal: Brown (dark brown heme +)
Musculoskeletal: No Clubbing and No Cyanosis
Skin: Warm, Dry and Other (mild bruising left rib area )
Neuro: Awake, Alert and AO x 3
Psych: Calm
Results
WBC 12.4 10^3/uL (4.8-10.8) H 03/12/25 04:01
Hgb 8.1 g/dL (13.0-18.0) L 03/12/25 04:01
Hct 23.7 % (39.0-52.0) L 03/12/25 04:01
MCV 99.6 fL (80.0-94.0) H 03/12/25 04:01
Plt Count 160 10^3/uL (130-400) 03/12/25 04:01
Absolute Neuts (auto) 8.7 10^3/uL (1.4-6.5) H 03/11/25 13:34
PT 23.3 Sec (11.4-14.6) H 03/11/25 13:34
INR 2.05 03/11/25 13:34
APTT 38.3 Sec (23.4-35.0) H 03/11/25 13:34
Sodium 127 mmol/L (135-145) L 03/12/25 04:01
Potassium 4.1 mmol/L (3.5-5.1) 03/12/25 04:01
Chloride 97 mmol/L (98-107) L 03/12/25 04:01
Carbon Dioxide 23 mmol/L (22-30) 03/12/25 04:01
BUN 155 mg/dl (9-20) H* 03/12/25 04:01
Creatinine 2.2 mg/dL (0.7-1.3) H 03/12/25 04:01
Calcium 9.2 mg/dl (8.4-10.2) 03/12/25 04:01
Total Bilirubin 0.7 mg/dl (0.2-1.3) 03/11/25 13:34
AST 22 U/L (17-59) 03/11/25 13:34
ALT 17 U/L (0-50) 03/11/25 13:34
Alkaline Phosphatase 78 U/L (38-126) 03/11/25 13:34
Diagnostic Image Results:
03/12/25CT Chest/abd/pel Wo Iv Cont
IMPRESSION: Subtle fractures involving the left seventh, ninth, 10th, and 11th ribs.
There is no evidence for pneumothorax or hemothorax.
No evidence for traumatic injury within the abdomen or pelvis.
Atelectasis within the posterior lower lungs.
Mild peripheral interstitial fibrosis within the lungs.
No evidence for acute abnormality of the abdomen or pelvis.
Prior GI Procedures:
09/13/24 EGD: - No gross lesions in the entire esophagus.
- Z-line variable, 40 cm from the incisors.
- Small hiatal hernia.
- A single non-bleeding angioectasia in the stomach.
Treated with argon plasma coagulation (APC). Clips
were placed.
- Normal examined duodenum.
- No specimens collected.
09/13/24 COLO :Impression: - Preparation of the colon was inadequate.
- The examined portion of the ileum was normal.
- Stool in the entire examined colon.
- Internal hemorrhoids.
- No specimens collected.
01/04/2023: EGD �(Dr Hidalgo)
Indication: MELANIE, heme positive stools on Xarelto
A 3 cm hiatal hernia was present.
The exam of the esophagus was otherwise normal.
The esophagus was normal.
The examined duodenum was normal.
[address] [facility] - no bleeding site in esophagus, stomach, small bowel or visualized right colon
06/30/2019:� EGD (Dr Pinzon)
Indication: MELANIE
Normal esophagus.
- 2 cm hiatal hernia.
- Erythematous mucosa in the antrum. Biopsied.
- Normal duodenal bulb, first portion of the duodenum
and second portion of the duodenum. Biopsied.
Biopsies: negative for H pylori, no evidence of celiac disease.
06/20/2019:� Colonoscopy (Dr. Pinzon)
Indication: MELANIE
The examined portion of the ileum was normal.
- Four diminutive polyps in the rectum, removed with a
jumbo cold forceps. Resected and retrieved. (BX: hyperplastic)
- One 2 to 4 mm polyp in the sigmoid colon, removed with
a jumbo cold forceps. Resected and retrieved. (BX: tubular adenoma)
- Diverticulosis in the sigmoid colon.
- Non-bleeding internal hemorrhoids.
Assessment / Plan
-
Pt is a 79yo with hx AFib on Eliquis, CAD with prior CABG, Pacer/defib, prior PTCA, COPD, tobacco abuse, CHF with echo in 2/3 with EF 35-40%, HTN, hypercholesterolemia, NIDDM, CKD, moderate to Severe , anemia, HH, prior GI bleeding with noted
angioectasia in stomach, carotid stenosis, gout, BPH, epistaxis, colon polyps ,prior CEA and marjan with onset weakness and syncope. He initially had fall last week with rib injury and bruising and declined to come to ER. Since that time noted
with hypotension and near syncope prompting ER. On arrival noted with periods of bradycardia, ectopy, with hypotension BP to 80's and hbg 6.7 with BUN 147 and creat 2.6 albumin 3.1. Pt states last stool 3 days ago. Initially yellow brown then
darker brown after taking some iron. PT did have admission in September with anemia and hbg down to 7.1 and iron deficiency. During that admission he completed EGD with small non bleeding angioectasia in stomach with APC and poor prep colon with IH
and concern for underlying AVM's in setting of severe . He did have GI follow up with recommended IV iron and declined further GI procedures. Prior hx also with multiple neg EGD, colon and capsules dating back to 2017. He did discuss watchman
and TAVR and recommended cards follow up to discuss.
-anemia with hx iron deficiency and prior iron infusions
-heme + dark brown stools
-syncope with recent fall with rib fracture
-moderate to severe
-hypotension
-bradycardia with ectopy on admission
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
-hx colon polyps
-afib on Eliquis s/p K centra on admission
-CKD with marked elevated BUN/creat on admission
-hyponatemia
-hypoalbuminemia
other med problems
-CAD with prior CABG
- Pacer/defib, prior PTCA
-COPD, tobacco abuse
- CHF with echo in 2 with EF 35-40% in October
-HTN
-hypercholesterolemia
- NIDDM
-moderate to Severe
-carotid stenosis with prior GEOVANI
- gout
- BPH
-hx epistaxis
- prior marjan
PLAN:etiology of syncope/weakness likely multifactorial with cardiac issues with mod-severe , hypotension, and GI issue with likely slow GI bleeding- ? AVM in setting of chronic cardiac disease and some recent bruising/bleeding with rib fx and
fall vs other
s/p extensive GI work up in past as noted
currently no signs of aggressive bleeding- no stools for 3 days, CT stable with recent fall
s/p transfusion trend hbg
clear diet
will review with Dr. Bautista need for any repeat scope hold for today with noted ectopy/bradicardia
current card eval discussed with Dr. Sutton with hx prior TAVR/watchman eval
cont PPI BID
s/p K centra given in ER
updated nursing staff
-
-
Thank you for consultation and allowing me to participate in the patient's care. Please call the car construction superintendent GI physician during the after hours with any questions or concerns.
[2025-03-12 07:53] LABS: Glucose - Point of Care 153 mg/dl (70-99)
--- NOTE | 2025-03-12 07:56 | W.PN.HOSP.TC ---
Today's Communication/Plan
-
Monitor hemoglobin
N.p.o.
GI consult
Add low resistance NovoLog scale
Renal/bladder ultrasound
Assessment / Plan
Assessment / Plan
Gen-AAOx3, NAD
HEENT-NC, AT, anicteric, clear oral mm
Neck-supple
CV-reg, no M, +S1/S2
Lungs-bilateral rhonchi
Abd-soft, NT, ND
Ext-no edema
Musculoskeletal-no cyanosis, clubbing
Skin-warm and dry
Neuro-grossly non-focal
Psych-calm, cooperative
Shock -differential diagnosis of hemorrhagic versus hypovolemic. Relatively stable currently, not requiring vasopressors. Mean arterial pressure 75. Currently being monitored in the ICU.
Acute blood loss anemia -due to GI bleed, source unknown. High BUN to creatinine ratio suggestive of upper GI bleed. Hemoglobin improved after 2 units transfusion on March 11. Last hemoglobin 8.1 this a.m. Baseline hemoglobin appears to be between
8-9.
Suspect acute blood loss anemia due to GI bleed in the setting of anticoagulation with Eliquis.
Administered 3600 units of Kcentra on March 11.
Anemia labs not consistent with iron deficiency. Previous labs in October showed normal B12 and folic acid levels.
CT chest and abdomen on presentation without retroperitoneal bleed or other pathology.
Acute GI bleed -unknown source. Exacerbated by anticoagulation with Eliquis. Currently n.p.o., awaiting GI input.
Previous EGD and colonoscopy noted from September of this year. Colonoscopy was a poor prep. EGD demonstrated angiectasia in the stomach.
JAY on CKD 3b -possible JAY due to volume depletion. Creatinine now trending down. Renal/bladder ultrasound ordered.
Acute traumatic left-sided rib fractures -due to fall. Fractures of 7, 9, 10, 11 ribs on the left.
Paroxysmal atrial fibrillation -on chronic Eliquis. Hold Eliquis for acute GI bleed, acute blood loss anemia. Relatively bradycardic, heart rate in the 40s. Carvedilol on hold. Cardiology consulted.
Chronic hyponatremia -sodium currently 127, at baseline.
COPD without exacerbation
Chronic heart failure reduced EF -stable. On chronic furosemide, metolazone.
CAD/CABG x 4 (2001) - stable.
[employer] single-chamber ICD, 2018 -will need to interrogate.
Carotid disease -s/p left CEA 2012.
Essential hypertension -currently hypotensive.
DM 2 with hyperglycemia -glucose 153 this morning. He uses Lantus 24 units daily at home, NovoLog 6 units AC.
In the hospital he is on Lantus 7 units at bedtime. Add low resistance NovoLog scale. Check hemoglobin A1c.
Severe aortic stenosis -previously declined TAVR workup.
Hyperlipidemia -atorvastatin.
Gout -allopurinol.
Tobacco dependence -cessation advised.
Full code
Anticipated Discharge: > 48 hours
Subjective/Interval History
-
Date of Service: March 12, 2025
Patient seen and examined. No complaints.
Objective Data
-
Labs:
Laboratory Results
03/12/25 03/12/25
00:18 04:01
WBC 12.4 H
Hgb 8.1 L D 8.1 L
Hct 23.8 L 23.7 L
Plt Count 160
Sodium 127 L 127 L
Potassium 3.7 4.1
Chloride 96 L 97 L
Carbon Dioxide 24 23
BUN 148 H* 155 H*
Creatinine 2.2 H 2.2 H
Glucose 162 H 139 H
Calcium 9.4 9.2
Vital Signs:
Vital Signs
Temp Pulse Resp BP Pulse Ox
97.5 F 50 20 94/66 98
03/12/25 07:42 03/12/25 07:22 03/12/25 07:22 03/12/25 06:16 03/12/25 07:22
I&O
03/11/25 03/12/25 03/13/25
06:59 06:59 06:59
Intake Total 1200 / 1200
Output Total 1400 / 1400
Balance -200 / -200
Review of Systems
-
History Source: Patient
All other systems: Reviewed and negative
--- NOTE | 2025-03-12 08:28 | CON.CAR ---
Addendum entered and electronically signed by Nazario Sutton MD 03/12/25 10:29:
I saw and examined the patient.
The BINDER OPERATOR or PA's note was reviewed and I agree with the note.
Comment: General: Well developed, well nourished in NAD.
Neck: Supple, no JVD, HJR, carotids +2 B/L, no bruits bilaterally.
Heart: Non displaced PMI, RRR, 2/6 basal systolic murmur, No S3, S4, no rubs.
Lungs: Scattered rhonchi throughout
Extremities: No clubbing, cyanosis or edema bilaterally.
Neuro: Grossly nonfocal, awake, alert and oriented x3.
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
2001, carotid disease status post left carotid neurectomy in 2012, status post ICD in 2018, permanent A-fib on chronic Eliquis, diabetes, ongoing tobacco abuse. He had 2 episodes in the past 2 weeks of standing up in the bathroom by walking the
hallway feeling weak and then falling with possible syncope. He is found to have left-sided rib fractures as well. He is admitted now with a hemoglobin of 6.7 with recurrent GI bleeding. He denies any chest pain or short of breath at present time.
Discussed with patient, patient's by phone as well as GI and primary service. He is a difficult treatment dilemma as GI bleeds have been felt to be due to AVMs which will only get better with treatment of his aortic stenosis. He was sent for
catheterization 2022 was not a candidate at that time as the gradient was only 27 mmHg. However he would qualify for TAVR currently given mean pressure gradient of 34 and reduced ejection fraction. TAVR would be increased risk due to renal
insufficiency but discussed with interventional cardiology and will plan on catheterization during his hospitalization to reassess coronary anatomy and gradients as well as sizing. Will need to be careful regarding renal sufficiency with cath dye.
Also will need to be sure that GI bleeding is stable as there is concern with a stent and Plavix therapy he could develop recurrent GI bleeding which would require Plavix to be discontinued and would result in possible stent thrombosis. Will await
GI workup before catheterization.
Original Note:
Consultation
Consultation Request
Date/Time Consultation Requested: 03/12/25 at 0702
Date/Time Consultation Performed: 03/12/25 at 0817
Requesting Provider: Dr. Eduardo
Performing Provider: Dr. Sutton
Reason for Consultation: GIB with severe , possible CHF
Medical History
-
History of Present Illness:
Patient came to the ER yesterday with generalized weakness and was admitted with acute on chronic anemia and concern for recent falls, cardiology is now consulted for severe . Patient was admitted to the hospital 09/11/2024 until 09/15/2024 with GIB
related to a single nonbleeding angiectasia in the stomach that was treated with argon plasma coagulation and clips were placed. Prior to that admission patient had had a workup for his known severe back in 2022 and his mean gradient at time of
cath was only 27 and so TAVR was not recommended at that time. Following his admission for GIB there was renewed interest in TAVR evaluation, but patient felt somewhat disheartened from the previous workup and additional workup has not since been
pursued. Patient reports 2 episodes in the last 2 weeks of standing up from the bathroom and while walking in the hallway feeling weak and then falling, possible syncope although he is a poor historian. During one of the falls he landed on his
left side and on CXR and CT chest/ABD imaging on admission he was found to have left sided rib fractures. On imaging there is no evidence of pleural effusion or acute HF, but there is evidence of fibrosis and he is a known smoker. Patient found to
be anemic with Hgb as low as 6.7 on admission. Patient given 2 units PRBCs and Hgb is now stable at 8.1. During his last GIB admission he had upper endoscopy as noted, but colonoscopy preparation was poor and there was not an attempt to retry as
an outpatient. Patient also with known CKD 4 and Cre on admission as high as 2.6 with baseline Cre closer to 2.0. Patient denies any chest pain or SOB. Patient also with history of persistent A-fib with A-fib on ECG as far back as September.
Monitoring through his single-chamber ICD is difficult due to it being a single-chamber device. Patient is chronically on Eliquis 5 mg BID which is now on hold with GIB.
PMH:
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
Severe since 2019
s/p TAVR work-up with MPG 27 at time of cath and not recommended TAVR 01/2023
Chronic HFrEF
ICM EF 35-40% by echo 10/09/24
History of reduced ejection fraction heart failure with recovered EF
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
CAD status post CABGx4 in setting of [place] in 2001
carotid disease s/p left CEA in 2012
s/p Medtronic single chamber ICD 2018
Persistent Afib
Chronic Eliquis OAC
DM 2
Gout
Smoker, ongoing tobacco use
Past Medical History
Past Medical History: Other (in HPI)
Past Surgical History: Cardiac (single chamber Medtronic ICD ) and Cholecystectomy
Social History
Tobacco: Smoker (1 ppd)
Alcohol: None
Personal:
Living: With Family
Employment: Retired
Family History
Family History: Cancer and Diabetes
Allergies / Home Medications
Allergy/AdvReac Type Severity Reaction Status Date / Time
rosiglitazone (From Avandia) Allergy Unknown Unknown Verified 01/18/23 08:24
grass pollen Allergy SNEEZING Verified 01/01/23 10:29
ragweed pollen Allergy NASAL Verified 01/01/23 10:29
CONGESTION
�Medication �Instructions �Recorded �Confirmed �Type
allopurinol 100 mg tablet 150 mg PO BID Gout 08/04/16 03/11/25 History
carvedilol 6.25 mg tablet 3.125 mg PO BID Blood Clot 02/27/17 03/11/25 History
Prevention/Tx
cyanocobalamin (vitamin B-12) 1,000 mcg PO DAILY Supplement 10/04/19 03/11/25 History
1,000 mcg tablet
acetaminophen 500 mg tablet 1,000 mg PO HS 01/01/23 03/11/25 History
atorvastatin 80 mg tablet 80 mg PO DAILY High cholesterol 01/01/23 03/11/25 History
brinzolamide 1 % eye 1 drp BOTH EYES BID@1200,2200 Eye 01/01/23 03/11/25 History
drops,suspension Condition
Vegetable Pill Otc 1 tab PO DAILY Supplement 01/18/23 03/11/25 History
furosemide 80 mg tablet 120 mg PO BID Fluid 01/18/23 03/11/25 History
Retention/Swelling
apixaban 5 mg tablet 5 mg PO BID Blood Clot 09/11/24 03/11/25 History
Prevention/Tx
metolazone 2.5 mg tablet 2.5 mg PO BID Fluid 09/11/24 03/11/25 History
Retention/Swelling
mupirocin 2 % topical ointment 1 applic topical BIDPRN PRN B/L 09/11/24 03/11/25 History
leg wounds
potassium chloride 20 mEq 20 meq PO QPM Supplement 09/11/24 03/11/25 History
tablet,extended release
potassium chloride 20 mEq 40 meq PO BID@0800,1200 Supplement 09/11/24 03/11/25 History
tablet,extended release
spironolactone 25 mg tablet 12.5 mg PO DAILY Fluid 09/11/24 03/11/25 History
Retention/Swelling
Centrum Adult 50 Plus 1 tab PO DAILY Supplement 09/12/24 03/11/25 History
Iron Infusion 1 dose IV Q8W PRN iron supplement 03/11/25 03/11/25 History
insulin aspart U-100 100 unit/mL 6 unit SC AC 03/11/25 03/11/25 History
(3 mL) subcutaneous pen (Novolog
FlexPen U-100 Insulin aspart)
insulin glargine 100 unit/mL (3 24 unit SC DAILY@0000 Diabetes 03/11/25 03/11/25 History
mL) subcutaneous pen (Lantus
Solostar U-100 Insulin)
triamcinolone acetonide 0.1 % 1 applic topical BID apply to B/L 03/11/25 03/11/25 History
topical cream legs
vitamin E 100 unit tablet 100 unit PO DAILY 03/11/25 03/11/25 History
Review of Systems
-
History Source: Patient
All other systems: Negative unless noted
Physical Exam
Vital Signs
Temp Pulse Resp BP Pulse Ox
97.5 F 50 20 94/66 98
03/12/25 07:42 03/12/25 07:22 03/12/25 07:22 03/12/25 06:16 03/12/25 07:22
General: NAD, AAOX3
HEENT: EOMI, MMM
Heart: Afib on tele. Irreg irreg, 10/12 AHSM
Lungs: 3 L NC. Diffuse rales and rhonchi.
Abd: +BS, ND
Ext: trace to +1 B/L LE edema
Neuro: nonfocal
Lab Results
03/12/25 04:01
Impression / Plan
-
Primary Topology Professor: Dr. Sutton
Impression:
Admitted with shock, anemia and possible CHF 03/11/25
Hemorrhagic shock
Heme positive anemia
s/p 2 units PRBCs 03/11/25
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
Severe since 2018
s/p TAVR work-up with MPG 27 at time of cath and not recommended TAVR 01/2023
Possible acute on chronic HFrEF
ICM EF 35-40% by echo 10/09/24
History of reduced ejection fraction heart failure with recovered EF
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
CAD status post CABGx4 in setting of [place] in [place]
carotid disease s/p left CEA in 2012
s/p Medtronic single chamber ICD 2017
Persistent Afib
Chronic Eliquis OAC
DM 2
Gout
Smoker, ongoing tobacco use
Echo 08/23/2019: EF 30-35%, global hypokinesis with inferolateral, inferior and basal septal akinesis, mild MR, sev pressure 47/28 mmHg
ECHO 12/03/22: EF 50%, mild LVH, stage III diastolic dysfunction, mild MR, severe with peak/mean gradients 54/28 mmHg, KAELYN 0.8 cm�, trace AR, mild TR, PAP 64 mmHg, mild dilation of aorta measuring 4.0 cm
Echo 10/09/2024: EF 35 to 40%, moderate eccentric MR, severe peak/mean 60/34 mmHg and KAELYN 0.8 cm sq, mild aortic insufficiency, moderate TR with PAP 64 mmHg
Plan:
- Patient came to the ER yesterday with generalized weakness and was admitted with acute on chronic anemia and concern for recent falls, cardiology is now consulted for severe . Patient was admitted to the hospital 09/11/2024 until 09/15/2024 with
GIB related to a single nonbleeding angiectasia in the stomach that was treated with argon plasma coagulation and clips were placed. Prior to that admission patient had had a workup for his known severe back in 2022 and his mean gradient at time
of cath was only 27 and so TAVR was not recommended at that time. Following his admission for GIB there was renewed interest in TAVR evaluation, but patient felt somewhat disheartened from the previous workup and additional workup has not since
been pursued. Patient reports 2 episodes in the last 2 weeks of standing up from the bathroom and while walking in the hallway feeling weak and then falling, possible syncope although he is a poor historian. During one of the falls he landed on
his left side and on CXR and CT chest/ABD imaging on admission he was found to have left sided rib fractures. On imaging there is no evidence of pleural effusion or acute HF, but there is evidence of fibrosis and he is a known smoker. Patient
found to be anemic with Hgb as low as 6.7 on admission. Patient given 2 units PRBCs and Hgb is now stable at 8.1. During his last GIB admission he had upper endoscopy as noted, but colonoscopy preparation was poor and there was not an attempt to
retry as an outpatient. Patient also with known CKD 4 and Cre on admission as high as 2.6 with baseline Cre closer to 2.0. Patient denies any chest pain or SOB. Patient also with history of persistent A-fib with A-fib on ECG as far back as
September. Monitoring through his single-chamber ICD is difficult due to it being a single-chamber device. Patient is chronically on Eliquis 5 mg BID which is now on hold with GIB.
-ECG reviewed by me is rate controlled A-fib, telemetry reviewed by me in the room during HPI looks like A-fib with aberrancy
-Patient with recurrent GIB likely related to AVMs from his severe . Patient with a single nonbleeding angiectasia in the stomach during his last admission in September that was successfully treated at that time with argon plasma and clip. Would
recommend repeat GI evaluation.
-Patient with 2 falls just prior to admission that were not clearly syncope and may in fact have been related to a combination of events including his severe and his anemia. Would recommend GI evaluation and treatment of any obvious bleeding AVM.
-Would also recommend repeat evaluation for his severe , patient says that he has 'a lot of fight left' and would like to pursue TAVR evaluation. We discussed hurdles to TAVR our evaluation including anemia, JAY on CKD 4 and general frailty.
Patient asked that we call and discussed with his as well, cardiology will call the patient's today.
-Echo 10/09/2024 showed EF down to 35 to 40% with mean gradient 34 mmHg. Recheck echo this admission
-Check proBNP level, ordered by me. Patient with known CM and received 2 units PRBCs this admission. He has increased LE edema. No evidence of pleural effusion or CHF on imaging on admission as reviewed by me.
-Outpatient dose of Lasix 120 mg BID and metolazone 2.5 mg BID are on hold. Pending results of proBNP we will give a dose of Lasix IV +/- metolazone later today
-Patient with likely persistent A-fib although burden on device is less than 1% by last check 12/26/2024 as reviewed by me, but this is a single-chamber device.
-For now has outpatient dose of Eliquis 5 mg BID (Cre 2.2, wt 68 kg, age 79) is on hold pending possible GI workup
[2025-03-12] MEDS: PROTONIX IV 40 MG IV ×2 (08:34→19:34)
[2025-03-12] MEDS: NSS (PRESERVATIVE FREE) 10 ML IV ×2 (08:34→19:34)
--- NOTE | 2025-03-12 09:30 | PTCARENOTE ---
Rec'd care of patient at 0700. Patient alert and oriented. [id number]. MAEx4. Rhythm irregular on tele monitor. Vpaced, BBB, ectopy. +1 edema in b/l LE. Weak, palpable pulses. Pulse ox 96% on 2L nc. Scattered rhonchi throughout. Diminished in b/l bases.
Moist, non-productive cough. +BS. Per patient, last BM 3 days ago. No signs of bleeding. Incontinent of large amount of urine. Complete bed bath performed. Condom catheter in place for I/O. Peripheral sites flushed and capped. GI and Cardiology
consults at bedside to assess patient.
[2025-03-12 11:25] LABS: Glucose - Point of Care 137 mg/dl (70-99)
[2025-03-12] MEDS: NOVOLOG FLEXPEN-LOW RESISTANCE SC (11:28)
--- NOTE | 2025-03-12 13:45 | PTCARENOTE ---
Systems reviewed. Patient intermittently sleeping throughout shift. Per , this is baseline. Lung sounds coarse rhonchi throughout. Tolerated clear liquid diet for lunch. Renal US completed. No other changes.
--- NOTE | 2025-03-12 14:08 | CM ---
Patient having US. Initial assessment completed with . Patient, and son live in a 2 story plus basement home with B/B on 1st, 2 steps to enter. 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 He has not driven
since recent history of GI bleeds. He also has a RW which he does not use. No in-home services. No HD. Patient is an [employer] vet who was in the [place] War. According to , he has 100% [facility] benefits. [facility].
They also use [facility] on [address] in [place]. PCP is Dr. Christiano Carranza. Discharge POC: TBD. Anticipate home with HH RN. Therapy screening ordered, not yet completed
[2025-03-12 14:44] LABS: Hematocrit 24.9 % (39.0-52.0); Hemoglobin 8.3 g/dL (13.0-18.0)
--- NOTE | 2025-03-12 14:45 | PTCARENOTE ---
Repeat H&H sent. Hgb 8.3, Hct 24.9. No s/s bleeding.
--- NOTE | 2025-03-12 16:30 | PTCARENOTE ---
No changes in assessment. Patient resting comfortably. VSS. Assisted in ordering dinner.
[2025-03-12 16:50] LABS: Glucose - Point of Care 212 mg/dl (70-99)
[2025-03-12] MEDS: NOVOLOG FLEXPEN-LOW RESISTANCE 2 UNITS SC (17:00)
[2025-03-12] MEDS: LANTUS 0.07 UNITS SC (21:23)
[2025-03-12 21:34] LABS: Glucose - Point of Care 210 mg/dl (70-99)
[2025-03-12] MEDS: TYLENOL 650 MG PO (21:38)
[2025-03-13] VITALS (44 sets, daily range): BP systolic 84–114; BP diastolic 43–75; BMI 24.5
[2025-03-13] MEDS: MELATONIN 5 MG PO (01:03)
[2025-03-13 03:36] LABS: Hematocrit 22.9 % (39.0-52.0); Hemoglobin 7.9 g/dL (13.0-18.0); Mean Corp Hgb Conc. 34.5 g/dL (33.0-37.0); Mean Corpuscular Volume 101.8 fL (80.0-94.0); Nucleated Red Blood Cells % 0.9 % (-); Platelet Count 147 10^3/uL (130-400); Red Cell Dist. Width 22.5 % (11.5-14.5)
[2025-03-13 03:43] LABS: INR 1.33; PT 16.8 Sec (11.4-14.6)
[2025-03-13 04:04] LABS: ALT (SGPT) 17 U/L (0-50); AST (SGOT) 27 U/L (17-59); Albumin 2.9 g/dl (3.5-5.0); Alkaline Phosphatase 81 U/L (38-126); Calcium 9.1 mg/dl (8.4-10.2); Carbon Dioxide 24 mmol/L (22-30); Chloride 96 mmol/L (98-107); Estimated Creatinine Clearance 23 ml/min; Glucose 144 mg/dl (70-99); Potassium 3.4 mmol/L (3.5-5.1); Sodium 127 mmol/L (135-145); Total Protein 5.6 g/dl (6.3-8.2); eGFR 26.78
[2025-03-13 04:13] LABS: Blood Urea Nitrogen 143 mg/dl (9-20)
[2025-03-13] MEDS: KCL 40 MEQ PO (06:01)
[2025-03-13] MEDS: PULMICORT 0.5 MG INH ×2 (07:19→19:19)
[2025-03-13] MEDS: DUONEB 3 ML INH ×4 (07:19→19:19)
--- NOTE | 2025-03-13 07:50 | W.PN.INTV ---
Today's Communication / Plan
Recommendations
Await endoscopy
Potassium repleted
Nephrology has been consulted
TAVR workup including catheterization being considered
Patient transfer out of ICU.
Pulmonary follow-up information left in chart
We will sign off. Please call with questions
Assessment
-
79-year-old smoking male with underlying COPD, CAD, , CHF, hypertension, hyperlipidemia, atrial fibrillation on Eliquis, diabetes, chronic renal failure, BPH, with known previous GI bleed from ectasias in the stomach September 2024 presents with
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
Gastrointestinal bleed-Suspect upper
Anemia due to acute blood loss-hemoglobin 6.7-macrocytic
Hypotension due to blood loss
Leukocytosis
Subtle left-sided rib fractures-7th, 9th, 10th and 11th ribs, no pneumothorax-status post fall
JAY
Hyperglycemia
Hyponatremia
Conditions present prior to admission:
Hypertension.
Hyperlipidemia.
CAD/ MD 1997, 2000/Stent.
Aortic [id number] 0.8 cm
Pulmonary hypertension-PA systolic 64
Chronic CHF-EF 35%
COPD-FEV1 1.7 L- -70%, DLCO 38%
Cigarette smoker.
Atrial fibrillation/Eliquis.
Diabetes.
Chronic renal failure.
BPH.
Colon polyp
Hiatal hernia
Glaucoma
Neuropathy
Gout
Previous GI bleed/ectasia stomach September 2024.
Cholecystectomy 2014. Carotid endarterectomy-right 2012. Umbilical hernia repair 2014. Tonsillectomy 1951. Pacemaker/defibrillator 2017.
Plan/recommendations
At this time, patient appears to be comfortable without symptoms
Describing mild rib discomfort with pleurisy but denies shortness of breath, currently on room air, 2 L
Chest exam with mild wheezing, tolerating nebulized treatment
Status post 2 units of blood, recent hemoglobin 7.9
Creatinine slowly rising, 2.4
Urine output greater than 1 L
Echocardiogram EF 31%, moderate MR, aortic stenosis valve area 0.7 cm, PA pressure 72, normal RV
Moving forward
Continue with close monitoring
Plan for endoscopy later today per GI, remains n.p.o.
Hemoglobin stable at 7.9, received 2 units
Patient received Kcentra on admission
Abdominal CT without acute findings
Remains on Protonix
GI correspondence reviewed
Chest x-ray unremarkable
CT chest with mild interstitial changes, no pneumothorax
Rib fractures noted
Cardiology following
Significant valvular disease noted
Echocardiogram with worsening EF
Renal ultrasound normal
Being evaluated for possible TAVR, may require catheterization
Monitor for signs of CHF
Monitor renal function-suspect portion of BUN elevation due to GI bleed
Replace electrolytes
Creatinine 2.4, azotemia noted secondary to GI bleed
Continue to follow closely.
Urine output adequate
Nephrology has been consulted given possible need for catheterization
Monitor blood sugar
Insulin supplementation as needed
DVT prophylaxis-mechanical
GI prophylaxis-on PPI gtt
Aspiration precautions
Last saw Dr. De Oliveira 03/04/2023 for underlying COPD and shortness of breath-has not followed up since
Would recommend pulmonary follow-up postdischarge
Patient transferred out of ICU. We will sign off. Please call with questions
Diagnostic data:
Chest x-ray/10/24-NAD
Chest x-ray-01/01/23: Images reviewed. No active cardiopulmonary disease. Pacemaker.
Cardiac CT 05/27/17: 13 mm lymph node left lateral to the distal trachea and anterior to the descending thoracic aorta. Slightly enlarged but nonspecific.
Pulmonary function studies-06/10/17: ([facility]): Spirometry was normal. The forced vital capacity was 3.09 L or 86% of predicted. The FEV1 was 2.23 L or 85% of predicted. The FEV1/FVC ratio was 72%. Lung volumes revealed a normal total
lung capacity of 6.5 L or 105% of predicted. Moderate air trapping is present. The RV/TLC ratio was 51% with a predicted value being 42%. The diffusing capacity was moderately reduced at 12.3 or 54% of predicted consistent with a moderate gas
exchange deficit.�������.�������
Pulmonary function studies-03/04/23: Spirometry demonstrated mild obstructive lung disease. The forced vital capacity was 2.70 L or 80% of predicted. The FEV1 was 1.67 L or 70% of predicted. The FEV1/FVC ratio was 62%. There was no improvement in the
FEV1 postbronchodilator. Lung volumes revealed a normal total lung capacity of 90% of predicted. There was no air trapping. The diffusing capacity was severely reduced at 8.4 L or 38% of predicted consistent with a severe gas exchange deficit.����
Echocardiogram 12/03/22: EF 50%. Stage III diastolic dysfunction. Severe aortic stenosis with gradients 54/28, aortic valve area 0.8 cm 2, PA pressures 64 mmHg. Mild dilation of the aorta measuring 4 cm.��
Echocardiogram 10/09/2024-EF 35-40%, moderate mitral regurgitation, severe aortic stenosis-KAELYN 0.8 cm, PA systolic 64�����.�������
Cardiac catheterization-01/18/23: Wedge 30. Elevated left and right ventricular filling pressures. PA pressures 85/31 with a mean of 46. Moderate to severe aortic stenosis. It is Aortic valve area 1.0 cm 2. Aortic valve gradient 27 mmHg. Graft
angiography-see report. EF 45-50% with severe hypokinesis of the posterior lateral wall.
Subjective Dataa
Subjective Data
Date of Service:
Date of Service: March 13, 2025
Subjective:
Patient without complaints. Denies shortness of breath, chest pain, abdominal pain. No further evidence of bleeding. Bradycardia noted
Objective Data
Data Reviewed
Vital Signs / I&O / Oxygen:
Vital Signs
Temp Pulse Resp BP Pulse Ox
97.6 F 40 15 104/46 95
03/13/25 06:04 03/13/25 07:20 03/13/25 07:20 03/13/25 06:00 03/13/25 07:20
Intake and Output
03/12/25 03/13/25 03/14/25
06:59 06:59 06:59
Intake Total 1200 / 1200 1080 / 1080
Output Total 1400 / 1400 1120 / 1120
Balance -200 / -200 -40 / -40
SaO2 95
Nasal Cannula flow liters per 2
minute
Physical Exam
General: Comfortable
HEENT: Normocephalic and Anicteric
Cardiovascular: S1-S2, Regular Rhythm, Murmur (2/6 systolic murmur), Rub (n) and Peripheral Edema (n)
Respiratory: Wheeze (Few scattered), Crackles (n), Rhonchi (Few) and Non-Labored Respirations
GI: Soft, Non Distended, Tender and Normal Bowel Sounds
Neurology: Awake, Alert, Oriented and No Motor Deficits (Moves all extremities, able to sit up without assistance)
Skin: Rash (n), Bruising (n) and Other (Mild pallor)
Labs/Micro/Reports
Lab Data
03/13/25 03:25
03/13/25 03:25
Laboratory Results
03/13/25
03:25
PT 16.8 H
INR 1.33
--- NOTE | 2025-03-13 07:51 | W.PN.GI.CBS2 ---
Today's Communication / Plan
-
PLAN:etiology of syncope/weakness likely multifactorial with cardiac issues with mod-severe , hypotension, and GI issue with likely slow GI bleeding- ? AVM in setting of chronic cardiac disease and some recent bruising/bleeding with rib fx and
fall vs other
s/p extensive GI work up in past as noted
currently no signs of aggressive bleeding but reviewed with cards plan for cath
hbg 7.9 this with transfusion on admission cont to follow
plan for EGD/enteroscopy today
reviewed with Dr. Eduardo and Dr. Sutton-- HR low but noted with pacer and stable to proceed
NPO
Eliquis hold s/p K centra
I updated on plan-- if EGD neg will need to decide if stable and need to repeat colonoscopy vs hold as recent attempt several months ago
s/p oral K given this am
Assessment / Plan
-
Pt is a 79yo with hx AFib on Eliquis, CAD with prior CABG, Pacer/defib, prior PTCA, COPD, tobacco abuse, CHF with echo in 2/3 with EF 35-40%, HTN, hypercholesterolemia, NIDDM, CKD, moderate to Severe , anemia, HH, prior GI bleeding with noted
angioectasia in stomach, carotid stenosis, gout, BPH, epistaxis, colon polyps ,prior CEA and marjan with onset weakness and syncope. He initially had fall last week with rib injury and bruising and declined to come to ER. Since that time noted
with hypotension and near syncope prompting ER. On arrival noted with periods of bradycardia, ectopy, with hypotension BP to 80's and hbg 6.7 with BUN 147 and creat 2.6 albumin 3.1. Pt states last stool 3 days ago. Initially yellow brown then
darker brown after taking some iron. PT did have admission in September with anemia and hbg down to 7.1 and iron deficiency. During that admission he completed EGD with small non bleeding angioectasia in stomach with APC and poor prep colon with IH
and concern for underlying AVM's in setting of severe . He did have GI follow up with recommended IV iron and declined further GI procedures. Prior hx also with multiple neg EGD, colon and capsules dating back to 2017. He did discuss watchman
and TAVR and recommended cards follow up to discuss.
-anemia with hx iron deficiency and prior iron infusions
-heme + dark brown stools
-syncope with recent fall with rib fracture
-moderate to severe
-hypotension
-bradycardia with ectopy on admission
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
-hx colon polyps
-afib on Eliquis s/p K centra on admission
-CKD with marked elevated BUN/creat on admission
-hyponatemia
-hypoalbuminemia
other med problems
-CAD with prior CABG
- Pacer/defib, prior PTCA
-COPD, tobacco abuse
- CHF with echo in 10/09 with EF 35-40% in October
-HTN
-hypercholesterolemia
- NIDDM
-moderate to Severe
-carotid stenosis with prior GEOVANI
- gout
- BPH
-hx epistaxis
- prior marjan
PLAN:etiology of syncope/weakness likely multifactorial with cardiac issues with mod-severe , hypotension, and GI issue with likely slow GI bleeding- ? AVM in setting of chronic cardiac disease and some recent bruising/bleeding with rib fx and
fall vs other
s/p extensive GI work up in past as noted
currently no signs of aggressive bleeding but reviewed with cards plan for cath
hbg 7.9 this with transfusion on admission cont to follow
plan for EGD/enteroscopy today
reviewed with Dr. Eduardo and Dr. Sutton-- HR low but noted with pacer and stable to proceed
NPO
Eliquis hold s/p K centra
I updated on plan-- if EGD neg will need to decide if stable and need to repeat colonoscopy vs hold as recent attempt several months ago
s/p oral K given this am
Subjective
Subjective
Date of Service: March 13, 2025
NPO no stools, stable overnight HR 40-50
Objective
Data Reviewed
Laboratory Data:
Laboratory Results
03/13/25 03:25
03/13/25 03:25
Laboratory Results
PT 16.8 Sec (11.4-14.6) H 03/13/25 03:25
INR 1.33 03/13/25 03:25
APTT 38.3 Sec (23.4-35.0) H 03/11/25 13:34
Total Bilirubin 1.0 mg/dl (0.2-1.3) 03/13/25 03:25
AST 27 U/L (17-59) 03/13/25 03:25
ALT 17 U/L (0-50) 03/13/25 03:25
Alkaline Phosphatase 81 U/L (38-126) 03/13/25 03:25
Vital Signs and I&O:
Vital Signs
Temp Pulse Resp BP Pulse Ox
97.6 F 40 15 104/46 95
03/13/25 06:04 03/13/25 07:20 03/13/25 07:20 03/13/25 06:00 03/13/25 07:20
I&O
03/12/25 03/13/25 03/14/25
06:59 06:59 06:59
Intake Total 1200 / 1200 1080 / 1080
Output Total 1400 / 1400 1120 / 1120
Balance -200 / -200 -40 / -40
Physical Exam
Physical Exam
HEENT: Anicteric and Moist mucous membranes
Cardiology: Murmur and Other (bradicardia )
Pulmonary: Clear
GI: Soft, Non Distended and Non Tender
Extremities: No Edema
Neuro: Non Focal
--- NOTE | 2025-03-13 08:00 | PTCARENOTE ---
pt received from previous RN, oriented, [place]. Afib w/ BBB w/ some V pacing on the monitor, HR 40-50s. LCW PPM. SBP 100s. +1 LE edema. 2LNC, 94% POX. lungs diminished. rhonchi. +FUNERAL SALES MANAGER moist cough. IS encouraged. pt abdomen s/n, denies n/v. NPO. pt states
has not had BM since the weekend. voiding via condom cath. R elbow scab ERIC. LUE dressing intact. PIV x2. see worklist for VS, I&O, and assessment.
[2025-03-13 08:08] LABS: Glucose - Point of Care 138 mg/dl (70-99)
[2025-03-13] MEDS: NOVOLOG FLEXPEN-LOW RESISTANCE SC (08:09)
--- NOTE | 2025-03-13 08:12 | W.PN.HOSP.TC ---
Today's Communication/Plan
-
Await EGD, enteroscopy
Monitor hemoglobin
Check magnesium, TSH
Assessment / Plan
Assessment / Plan
Gen-AAOx3, NAD
HEENT-NC, AT, anicteric, clear oral mm
Neck-supple
CV-reg, no M, +S1/S2
Lungs-bilateral rhonchi
Abd-soft, NT, ND
Ext-no edema
Musculoskeletal-no cyanosis, clubbing
Skin-warm and dry
Neuro-grossly non-focal
Psych-calm, cooperative
Shock -differential diagnosis of hemorrhagic versus hypovolemic. Relatively stable currently, not requiring vasopressors. Mean arterial pressure 75. Currently being monitored in the ICU.
Acute blood loss anemia -due to GI bleed, source unknown. High BUN to creatinine ratio suggestive of upper GI bleed. Hemoglobin improved after 2 units transfusion on March 11. Hemoglobin 8.1 yesterday morning, 7.9 today. Baseline hemoglobin
appears to be between 8-9.
Suspect acute blood loss anemia due to GI bleed in the setting of anticoagulation with Eliquis.
Administered 3600 units of Kcentra on March 11.
Anemia labs not consistent with iron deficiency. Previous labs in October showed normal B12 and folic acid levels.
CT chest and abdomen on presentation without retroperitoneal bleed or other pathology.
Acute GI bleed -unknown source. Exacerbated by anticoagulation with Eliquis. Currently n.p.o., awaiting EGD, enteroscopy. No bowel movement so far in the hospital.
Previous EGD and colonoscopy noted from September of this year. Colonoscopy was a poor prep. EGD demonstrated angiectasia in the stomach.
JAY on CKD 3b -possible JAY due to volume depletion. Creatinine 2.4 today. Renal/bladder ultrasound without hydronephrosis. Mildly echogenic kidneys noted.
Hypokalemia -getting repleted. Check magnesium.
Acute traumatic left-sided rib fractures -due to fall. Fractures of 7, 9, 10, 11 ribs on the left.
Paroxysmal atrial fibrillation -on chronic Eliquis. Hold Eliquis for acute GI bleed, acute blood loss anemia. Relatively bradycardic, heart rate in the 40s. Carvedilol on hold. Cardiology following. Does have ICD/defibrillator. Check TSH.
Chronic hyponatremia -sodium currently 127, at baseline.
COPD without exacerbation
Chronic heart failure reduced EF -stable. On chronic furosemide, metolazone.
CAD/CABG x 4 (2001) - stable.
Medtronic single-chamber ICD, 2018
Carotid disease -s/p left CEA 2012.
Essential hypertension -currently hypotensive.
DM 2 with hyperglycemia -glucose 144 this morning. He uses Lantus 24 units daily at home, NovoLog 6 units AC.
In the hospital he is on Lantus 7 units at bedtime. Add low resistance NovoLog scale. Check hemoglobin A1c.
Severe aortic stenosis -previously declined TAVR workup.
Hyperlipidemia -atorvastatin.
Gout -allopurinol.
Tobacco dependence -cessation advised.
Full code
Anticipated Discharge: > 48 hours
Subjective/Interval History
-
Date of Service: March 13, 2025
Patient seen and examined. No complaints.
Objective Data
-
Labs:
Laboratory Results
03/13/25
03:25
WBC 10.7
Hgb 7.9 L
Hct 22.9 L
Plt Count 147
PT 16.8 H
INR 1.33
Sodium 127 L
Potassium 3.4 L
Chloride 96 L
Carbon Dioxide 24
BUN 143 H*
Creatinine 2.4 H
Glucose 144 H
Calcium 9.1
Total Bilirubin 1.0
AST 27
ALT 17
Alkaline Phosphatase 81
Vital Signs:
Vital Signs
Temp Pulse Resp BP Pulse Ox
97.6 F 40 15 104/46 95
03/13/25 06:04 03/13/25 07:20 07/08/25 07:20 03/13/25 06:00 03/13/25 07:20
I&O
03/12/25 03/13/25 03/14/25
06:59 06:59 06:59
Intake Total 1200 / 1200 1080 / 1080
Output Total 1400 / 1400 1120 / 1120
Balance -200 / -200 -40 / -40
Review of Systems
-
History Source: Patient
All other systems: Reviewed and negative
[2025-03-13 08:40] LABS: Glycohemoglobin (HgbA1c) 6.5 % (4.0-5.6)
[2025-03-13 08:45] LABS: Magnesium 2.0 mg/dl (1.6-2.3)
[2025-03-13] MEDS: PROTONIX IV 40 MG IV ×2 (09:04→20:16)
[2025-03-13] MEDS: NSS (PRESERVATIVE FREE) 10 ML IV ×2 (09:05→20:16)
--- NOTE | 2025-03-13 09:47 | W.PN.CARDCBS ---
Addendum entered and electronically signed by Nazario Sutton MD 03/13/25 11:00:
I saw and examined the patient.
The FLIGHT STEWARD or PA's note was reviewed and I agree with the note.
Comment: General: Well developed, well nourished in NAD.
Neck: Supple, no JVD, HJR, carotids +2 B/L, no bruits bilaterally.
Heart: Non displaced PMI, RRR, 2/6 basal systolic murmur, No S3, S4, no rubs.
Lungs: Scattered rhonchi
Extremities: No clubbing, cyanosis or edema bilaterally.
Neuro: Grossly nonfocal, awake, alert and oriented x3.
Renal function has worsened slightly. Nephrology evaluation prior to catheterization to evaluate for TAVR. He is ventricular paced in the 40s. Will check device and increase basal rate to 50. Of note patient does have MR and TR which may or may
not improve with TAVR. Stable cardiology status for endoscopy to evaluate anemia prior to catheterization. GI bleeding has been felt to be due to AVM from untreated aortic stenosis
Original Note:
Today's Communication / Plan
-
Consider starting Lasix 80 mg PO BID following nephrology evaluation
Cardiac cath later this week
Iu1bcle rep to come and interrogate ICD and increase base rate to VVI 50
Impression / Plan
-
Primary Distribution Sales Manager: Dr. Sutton
Impression:
Admitted with shock, anemia and possible CHF 03/11/25
Hemorrhagic shock
Heme positive anemia
s/p 2 units PRBCs 03/11/25
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
Severe since 2019
s/p TAVR work-up with MPG 27 at time of cath and not recommended TAVR 01/2023
Possible acute on chronic HFrEF
ICM EF 35-40% by echo 10/09/24
History of reduced ejection fraction heart failure with recovered EF
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
CAD status post CABGx4 in setting of [place] in 2001
carotid disease s/p left CEA in 2012
s/p Medtronic single chamber ICD 2017
Persistent Afib
Chronic Eliquis OAC
DM 2
Gout
Smoker, ongoing tobacco use
Echo 08/23/2019: EF 30-35%, global hypokinesis with inferolateral, inferior and basal septal akinesis, mild MR, sev pressure 47/28 mmHg
ECHO 12/03/22: EF 50%, mild LVH, stage III diastolic dysfunction, mild MR, severe with peak/mean gradients 54/28 mmHg, KAELYN 0.8 cm�, trace AR, mild TR, PAP 64 mmHg, mild dilation of aorta measuring 4.0 cm
Echo 10/09/2024: EF 35 to 40%, moderate eccentric MR, severe peak/mean 60/34 mmHg and KAELYN 0.8 cm sq, mild aortic insufficiency, moderate TR with PAP 64 mmHg
Echo 03/12/2025: EF 31%, global hypokinesis, moderate MR, severe peak/mean 41/22 mmHg and KAELYN 0.7 cm sq, mild aortic regurgitation, moderate to severe TR with PAP 72 mmHg
Plan:
-Tele reviewed by me and patient with HR 40, patient with single chamber ICD set at VVI 40. Device rep to come and interrogate and set to VVI 50, arrangements made by me. Eventually consider upgrade to DC ICD or even CROP DUSTER HELPER-D to help with synchrony.
-Patient with known persistent Afib and now with recurrent GIB so outpatient dose of Eliquis 5 mg BID (Cre 2.4, wt 68 kg, age 79) is on hold. No h/o thromboembolic event
-GIB could be from AVMs from his severe and also had a single nonbleeding angiectasia in the stomach during his last admission in September that was successfully treated at that time with argon plasma and clip. GI planning on EGD/enteroscopy 03/13/25
-Two falls just prior to admission that were not clearly syncope and may in fact have been related to a combination of events including his severe and his anemia. ICD programming changes as noted above.
-Talked with patient and 03/12/25 and they are interested in TAVR evaluation. Patient had previous TAVR evaluation in 2022 and MPG was 27 mmHg at that time. Patient had echo 10/09/2024 with EF 35 to 40% his mean gradient was 34 mmHg and repeat
echo this admission with EF 31% the mean gradient is 22 mmHg.
-We discussed hurdles to TAVR our evaluation including anemia, JAY on CKD 4 and general frailty. We discussed cardiac cath this admission and then outpatient CT that will likely be split into 2 phases due to JAY. Cardiac cath this week, will ask
nephrology to see due to JAY on CKD 4
-proBNP 3620 mL labs reviewed by me 03/13/2025. Overall weight is down almost 20 pounds from admission 09/2024. Weight stable at 151 lbs on 03/13/2025.
-Outpatient dose of Lasix 120 mg BID and metolazone 2.5 mg BID are on hold. Pending results of proBNP we will give a dose of Lasix IV +/- metolazone later today
HPI: Patient came to the ER yesterday with generalized weakness and was admitted with acute on chronic anemia and concern for recent falls, cardiology is now consulted for severe . Patient was admitted to the hospital 09/11/2024 until 09/15/2024
with GIB related to a single nonbleeding angiectasia in the stomach that was treated with argon plasma coagulation and clips were placed. Prior to that admission patient had had a workup for his known severe back in 2022 and his mean gradient at
time of cath was only 27 and so TAVR was not recommended at that time. Following his admission for GIB there was renewed interest in TAVR evaluation, but patient felt somewhat disheartened from the previous workup and additional workup has not
since been pursued. Patient reports 2 episodes in the last 2 weeks of standing up from the bathroom and while walking in the hallway feeling weak and then falling, possible syncope although he is a poor historian. During one of the falls he landed
on his left side and on CXR and CT chest/ABD imaging on admission he was found to have left sided rib fractures. On imaging there is no evidence of pleural effusion or acute HF, but there is evidence of fibrosis and he is a known smoker. Patient
found to be anemic with Hgb as low as 6.7 on admission. Patient given 2 units PRBCs and Hgb is now stable at 8.1. During his last GIB admission he had upper endoscopy as noted, but colonoscopy preparation was poor and there was not an attempt to
retry as an outpatient. Patient also with known CKD 4 and Cre on admission as high as 2.6 with baseline Cre closer to 2.0. Patient denies any chest pain or SOB. Patient also with history of persistent A-fib with A-fib on ECG as far back as
September. Monitoring through his single-chamber ICD is difficult due to it being a single-chamber device. Patient is chronically on Eliquis 5 mg BID which is now on hold with GIB.
Progress Note - Distribution Sales Manager
Subjective
Date of Service: March 13, 2025
He feels well, no palpitations
Objective
Labs:
03/13/25 03:25
03/13/25 03:25
Labs
Hgb 7.9 g/dL (13.0-18.0) L 03/13/25 03:25
Hct 22.9 % (39.0-52.0) L 03/13/25 03:25
Plt Count 147 10^3/uL (130-400) 03/13/25 03:25
PT 16.8 Sec (11.4-14.6) H 03/13/25 03:25
INR 1.33 03/13/25 03:25
APTT 38.3 Sec (23.4-35.0) H 03/11/25 13:34
Sodium 127 mmol/L (135-145) L 03/13/25 03:25
Potassium 3.4 mmol/L (3.5-5.1) L 03/13/25 03:25
BUN 143 mg/dl (9-20) H* 03/13/25 03:25
Creatinine 2.4 mg/dL (0.7-1.3) H 03/13/25 03:25
Glucose 144 mg/dl (70-99) H 03/13/25 03:25
Vital Signs and I&O:
Vital Signs
Temp Pulse Resp BP Pulse Ox
97.6 F 40 20 106/70 94
03/13/25 08:00 03/13/25 08:00 03/13/25 08:00 03/13/25 08:00 03/13/25 08:00
Vital Signs
Temp Pulse Resp BP Pulse Ox
97.6 F 40 20 106/70 94
03/13/25 08:00 03/13/25 08:00 03/13/25 08:00 03/13/25 08:00 03/13/25 08:00
Intake & Output
03/11/25 03/12/25 03/13/25 03/14/25
06:59 06:59 06:59 06:59
Intake Total 1200 / 1200 1080 / 1080
Output Total 1400 / 1400 1120 / 1120 200 / 200
Balance -200 / -200 -40 / -40 -200 / -200
Physical Exam
Physical Exam
General: NAD, AAOX3
HEENT: EOMI
Heart: Afib on tele. Irreg irreg, 2/6 AHSM
Lungs: 2 L NC.
Ext: Trace B/L LE edema
Neuro: nonfocal
--- NOTE | 2025-03-13 10:55 | W.CON.NEPH ---
Consultation
-
Date/Time Consultation Requested: 03/13/25 0945
Date/Time Consultation Performed: 03/13/25 1030
Requesting Provider: Radha Byrne PA-C
Performing Provider: Cherie Rascon
Reason for Consultation: JAY with CKD and azotemia
Medical History
-
Chief Complaint: near syncope
History of Present Illness:
79 male history of HTN on low dose coreg, CHF R EF on high dose lasix, metolazone and spironolactone, known declined intervention, CKD3b baseline cr [address] Yates, IDDM, COPD, CAD s/p CABG, hyperlipidemia, atrial fibrillation Eliquis, BPH for
known history of previous GI bleed from ectasias in the stomach who presents with weakness and near syncope on 03/11 and reportedly had a syncopal episode 1 week ago which caused him to land and fall on his chest left-sided causing rib fractures. He
noted dark stools. He was hypotensive with a hemoglobin of 6.7 on admit. labs noted sodium is 127,cr 2.6 with a BUN of 147. He Received 1 unit of transfusion and K centra on admit with improved hemoglobin of 7.9 today. His plan to have EGD. Labs
noted today sodium 127, BUN 143, creatinine 2.4. Cardiology now trying to evaluate him for TAVR and potential need of left heart Hence nephrology consult to further evaluate and clearance.
He reports no chest pain or shortness of breath. No nausea or vomiting. No dizziness. No abdominal pain or edema. Denies any dysuria. Denies any blood in the stools today.
Past Medical History
Severe since 2019
s/p TAVR work-up with MPG 27 at time of cath and not recommended TAVR hronic HFrEF
ICM EF 35-40% by echo 10/09/24
History of reduced ejection fraction heart failure with recovered EF
CKD 3b
CAD status post CABGx4 in setting of [place] in 2001
carotid disease s/p left CEA in 2012
s/p Medtronic single chamber ICD 2017
Persistent Afib
Chronic Eliquis OAC
DM 2
Gout
Smoker, ongoing tobacco use
COPD
Hypercholesterolemia
h/o GIB from AVMs
Past Surgical History: Cholecystectomy and Other (CABG, ICD)
Social History
Tobacco: Smoker (1PPD)
Alcohol: None
Personal:
Living: With Family
Family History
Family History: Not Pertinent
Allergies / Home Medications
Allergy/AdvReac Type Severity Reaction Status Date / Time
grass pollen Allergy SNEEZING Verified 01/01/23 10:29
ragweed pollen Allergy NASAL Verified 01/01/23 10:29
CONGESTION
rosiglitazone (From Avandia) Allergy pt denies Verified 03/12/25 21:33
allergy
�Medication �Instructions �Recorded �Confirmed �Type
allopurinol 100 mg tablet 150 mg PO BID Gout 08/04/16 03/11/25 History
carvedilol 6.25 mg tablet 3.125 mg PO BID Blood Clot 02/27/17 03/11/25 History
Prevention/Tx
cyanocobalamin (vitamin B-12) 1,000 mcg PO DAILY Supplement 10/04/19 03/11/25 History
1,000 mcg tablet
acetaminophen 500 mg tablet 1,000 mg PO HS Pain 01/01/23 03/11/25 History
atorvastatin 80 mg tablet 80 mg PO DAILY High cholesterol 01/01/23 03/11/25 History
brinzolamide 1 % eye 1 drp BOTH EYES BID@1200,2200 Eye 01/01/23 03/11/25 History
drops,suspension Condition
Vegetable Pill Otc 1 tab PO DAILY Supplement 01/18/23 03/11/25 History
furosemide 80 mg tablet 120 mg PO BID Fluid 01/18/23 03/11/25 History
Retention/Swelling
apixaban 5 mg tablet 5 mg PO BID Blood Clot 09/11/24 03/11/25 History
Prevention/Tx
metolazone 2.5 mg tablet 2.5 mg PO BID Fluid 09/11/24 03/11/25 History
Retention/Swelling
mupirocin 2 % topical ointment 1 applic topical BIDPRN PRN B/L 09/11/24 03/11/25 History
leg wounds
potassium chloride 20 mEq 20 meq PO QPM Electrolyte Repletion 09/11/24 03/11/25 History
tablet,extended release
potassium chloride 20 mEq 40 meq PO BID@0800,1200 09/11/24 03/11/25 History
tablet,extended release Electrolyte Repletion
spironolactone 25 mg tablet 12.5 mg PO DAILY Fluid 09/11/24 03/11/25 History
Retention/Swelling
Centrum Adult 50 Plus 1 tab PO DAILY Supplement 09/12/24 03/11/25 History
Iron Infusion 1 dose IV Q8W PRN iron supplement 03/11/25 03/11/25 History
insulin aspart U-100 100 unit/mL 6 unit SC AC Diabetes 03/11/25 03/11/25 History
(3 mL) subcutaneous pen (Novolog
FlexPen U-100 Insulin aspart)
insulin glargine 100 unit/mL (3 24 unit SC DAILY@0000 Diabetes 03/11/25 03/11/25 History
mL) subcutaneous pen (Lantus
Solostar U-100 Insulin)
triamcinolone acetonide 0.1 % 1 applic topical BID apply to B/L 03/11/25 03/11/25 History
topical cream legs
vitamin E 100 unit tablet 100 unit PO DAILY Supplement 03/11/25 03/11/25 History
Review of Systems
-
All other systems: Negative unless noted
Physical Exam
Vital Signs
Vital Signs
Temp Pulse Resp BP Pulse Ox
97.6 F 59 25 107/60 99
03/13/25 08:00 03/13/25 09:00 03/13/25 09:00 03/13/25 09:00 03/13/25 09:00
Lab Results
WBC 10.7 10^3/uL (4.8-10.8) 03/13/25 03:25
RBC 2.25 10^6/uL (4.70-6.10) L 03/13/25 03:25
Hgb 7.9 g/dL (13.0-18.0) L 03/13/25 03:25
Hct 22.9 % (39.0-52.0) L 03/13/25 03:25
Plt Count 147 10^3/uL (130-400) 03/13/25 03:25
Sodium 127 mmol/L (135-145) L 03/13/25 03:25
Potassium 3.4 mmol/L (3.5-5.1) L 03/13/25 03:25
Chloride 96 mmol/L (98-107) L 03/13/25 03:25
Carbon Dioxide 24 mmol/L (22-30) 03/13/25 03:25
BUN 143 mg/dl (9-20) H* 03/13/25 03:25
Creatinine 2.4 mg/dL (0.7-1.3) H 03/13/25 03:25
eGFR 26.78 03/13/25 03:25
Glucose 144 mg/dl (70-99) H 03/13/25 03:25
Calcium 9.1 mg/dl (8.4-10.2) 03/13/25 03:25
Imq-J-Ywhxnydhskt Pept 3620 pg/ml 03/12/25 04:01
Albumin 2.9 g/dl (3.5-5.0) L 03/13/25 03:25
Physical Exam
General: Awake, Alert, Oriented, AOx3, No Distress and Nontoxic
HEENT: EOMI, Anicteric, Facial Symmetry and Neck Supple
Respiratory: Crackels, Normal Excursion and Nonlabored Respirations
Cardiac: S1/S2 and Regular Rate/Rhythm
Breast: Deferred by me
Abdomen: Soft, Nontender and Nondistended
Musculoskeletal: No Cyanosis and Edema (1+)
Skin: No Rash
Neuro: Nonfocal/Grossly Intact
Psych: Mood/afflect pleasant, Insight/judgement good and Appropriate
Data Reviewed
-
Radiology: Report Reviewed by me and Discussed with Patient
Labs: Labs Reviewed by me and Discussed with Patient
Assessment/Plan
-
IMP:
Shock hemorrhagic versus hypovolemic.
Acute blood loss anemia -due to GI bleed
Acute GI bleed , known h/o AVMS
JAY on CKD 3bbaseline cr at 2-follows Dr Yates
Hypokalemia
Acute traumatic left-sided rib fractures -due to fall
Paroxysmal atrial fibrillation
Chronic hyponatremia
COPD without exacerbation
Chronic heart failure reduced EF -stable
CAD/CABG x 4 (2001)
Medtronic single-chamber ICD, 2017
Carotid disease -s/p left CEA 2012.
Essential hypertension
DM 2
Severe aortic stenosis -previously declined TAVR workup.
Hyperlipidemia
Gout
Plan:
A/w GIB and hypotension-near syncope
GIB-for EGD today off AC
JAY possibly from GIB and hypotension-prerenal
blnad UA and U PCR 400mg/gm of cr, renal US non acute
current cr is not too far from baseline
diuretics on hold, follow bladder scan
azotemia from GIB-stable
chr hyponatremia no change, from CHF
replace k
avoid nephrotoxins
follow daily wts and likely resume diuretics soon
BP stable with out pressors
would wait for renal function to return baseline prior planning cardiac cath
reviewed briefly about high risk of SPRING with pt
d/w nursing
--- NOTE | 2025-03-13 10:59 | PTCARENOTE ---
pt report called to endoscopy lab, pt transported via stretcher.
[2025-03-13 11:45] LABS: TSH 3.90 uIU/ml (0.47-4.68)
--- NOTE | 2025-03-13 13:14 | PTCARENOTE ---
pt received post endoscopy, on 4LNC, Levophed gtt @4mcg/min. Dr. Eduardo aware. pt offers no c/o pain. oral care performed, gown changed.
[2025-03-13 13:34] LABS: Glucose - Point of Care 161 mg/dl (70-99)
[2025-03-13] MEDS: NOVOLOG FLEXPEN-LOW RESISTANCE 1 UNITS SC ×2 (14:10→17:21)
--- NOTE | 2025-03-13 15:00 | PTCARENOTE ---
attempted to titrate Levophed gtt off, SBP 80s, MAP 60. Dr. Eduardo aware. Levophed gtt restarted.
--- NOTE | 2025-03-13 16:43 | CM ---
Endoscopy this am. TAVR workup and catheterization a consideration. Discharge POC: TBD. Awaiting therapy eval and recommendation.
[2025-03-13] MEDS: MYLICON 80 MG PO (16:52)
[2025-03-13 17:24] LABS: Glucose - Point of Care 194 mg/dl (70-99)
[2025-03-13 21:44] LABS: Glucose - Point of Care 237 mg/dl (70-99)
[2025-03-13] MEDS: LANTUS 0.07 UNITS SC (23:02)
[2025-03-13] MEDS: NOVOLOG FLEXPEN 3 UNITS SC (23:50)
[2025-03-14] VITALS (27 sets, daily range): BP systolic 92–127; BP diastolic 44–77; PULSE 77–84; O2SAT 97; BMI 24.4
[2025-03-14] MEDS: MELATONIN 5 MG PO (02:19)
[2025-03-14 05:57] LABS: Hematocrit 24.0 % (39.0-52.0); Hemoglobin 7.9 g/dL (13.0-18.0); Mean Corp Hgb Conc. 32.9 g/dL (33.0-37.0); Mean Corpuscular Volume 102.6 fL (80.0-94.0); Platelet Count 153 10^3/uL (130-400); Red Cell Dist. Width 22.3 % (11.5-14.5)
[2025-03-14 06:15] LABS: Calcium 9.0 mg/dl (8.4-10.2); Carbon Dioxide 23 mmol/L (22-30); Chloride 98 mmol/L (98-107); Estimated Creatinine Clearance 25 ml/min; Glucose 133 mg/dl (70-99); Potassium 3.6 mmol/L (3.5-5.1); Sodium 128 mmol/L (135-145); eGFR 29.72
[2025-03-14 06:24] LABS: Blood Urea Nitrogen 126 mg/dl (9-20)
[2025-03-14 06:58] LABS: Anisocytosis 2+; Macrocytosis 3+; Normal RBC Morphology No; Polychromasia 1+
[2025-03-14 06:59] LABS: Basophilic Stippling 1+
[2025-03-14 07:03] LABS: Nucleated Red Blood Cells % 1.2 % (-)
[2025-03-14] MEDS: DUONEB 3 ML INH ×4 (07:35→19:26)
[2025-03-14] MEDS: PULMICORT 0.5 MG INH ×2 (07:35→19:26)
--- NOTE | 2025-03-14 08:00 | W.PN.HOSP.TC ---
Today's Communication/Plan
-
Transfuse
Compression stockings
Midodrine
PT/OT
Transfer to IVU
Assessment / Plan
Assessment / Plan
Gen-AAOx3, NAD
HEENT-NC, AT, anicteric, clear oral mm
Neck-supple
CV-reg, no M, +S1/S2
Lungs-bilateral rhonchi
Abd-soft, NT, ND
Ext-no edema
Musculoskeletal-no cyanosis, clubbing
Skin-warm and dry
Neuro-grossly non-focal
Psych-calm, cooperative
Shock -differential diagnosis of hemorrhagic versus hypovolemic versus cardiogenic. Briefly required Levophed yesterday after endoscopy, subsequently discontinued. Mean arterial pressure 62 this morning. Etiology of persistent hypotension
unclear, but I suspect cardiogenic shock is the driving factor given valvular heart disease as well as cardiomyopathy with LVEF 31%, global hypokinesis.
Compression stockings ordered, add midodrine 3 times daily. Can check orthostatic vitals after transfusion.
Syncope 1 week prior to admission as well as presentation with near syncope concerning for worsening aortic stenosis, valvular heart disease, cardiomyopathy.
Acute blood loss anemia -due to upper GI bleed. Hemoglobin improved after 2 units transfusion on March 11. Hemoglobin 8.1 yesterday morning, 7.9 today. Baseline hemoglobin appears to be between 8-9. Will transfuse 1 more unit of blood today in
light of need for chronic anticoagulation. Baseline chronic anemia could be related to chronic kidney disease.
Suspect acute blood loss anemia due to GI bleed in the setting of anticoagulation with Eliquis.
Administered 3600 units of Kcentra on March 11.
Anemia labs not consistent with iron deficiency. Previous labs in October showed normal B12 and folic acid levels.
CT chest and abdomen on presentation without retroperitoneal bleed or other pathology.
Acute GI bleed -suspect due to gastric AVMs noted on endoscopy 03/13. AVMs likely related to severe aortic stenosis. GI bleed exacerbated by anticoagulation with Eliquis. Currently on IV Protonix twice daily.
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 Creatinine stable at 2.2 today. Renal/bladder ultrasound without hydronephrosis. Mildly echogenic kidneys noted. Nephrology consulted by cardiology in
anticipation of cardiac catheterization for TAVR evaluation.
Hypokalemia -improved.
Acute traumatic left-sided rib fractures -due to fall. Fractures of 7, 9, 10, 11 ribs on the left.
Paroxysmal atrial fibrillation -on chronic Eliquis. Hold Eliquis for acute GI bleed, acute blood loss anemia. Relatively bradycardic, heart rate in the 40s. Carvedilol on hold. Cardiology following. Does have ICD/defibrillator. Check TSH.
Chronic hyponatremia -sodium currently 128, at baseline.
COPD without exacerbation
Chronic heart failure reduced EF -stable. On chronic furosemide, metolazone, spironolactone, all of which have been on hold in the hospital due to hypotension.
Echocardiogram done 03/12 shows LVEF 31%, global hypokinesis, indeterminate diastolic function, moderate MR, severe , moderate to severe TR.
CAD/CABG x 4 (2001) - stable.
Medtronic single-chamber ICD, 2018
Carotid disease -s/p left CEA 2012.
Essential hypertension -currently hypotensive.
DM 2 with hyperglycemia -glucose 133 this morning, 237 last night. He uses Lantus 24 units daily at home, NovoLog 6 units AC.
In the hospital he is on Lantus 7 units at bedtime. Add low resistance NovoLog scale. Hemoglobin A1c 6.5%, may not be reliable due to chronic anemia.
Severe aortic stenosis -cardiology following and considering evaluation for TAVR.
Hyperlipidemia -atorvastatin.
Gout -allopurinol.
Tobacco dependence -cessation advised.
Full code
PT/OT
Transfer out of ICU
Anticipated Discharge: > 48 hours
Subjective/Interval History
-
Date of Service: March 14, 2025
Patient seen and examined. No complaints.
Objective Data
-
Labs:
Laboratory Results
03/14/25
05:24
WBC 9.9
Hgb 7.9 L
Hct 24.0 L
Plt Count 153
Sodium 128 L
Potassium 3.6
Chloride 98
Carbon Dioxide 23
BUN 126 H*
Creatinine 2.2 H
Glucose 133 H
Calcium 9.0
Vital Signs:
Vital Signs
Temp Pulse Resp BP Pulse Ox
97.8 F 56 20 99/44 95
03/14/25 07:33 03/14/25 07:38 03/14/25 07:38 03/14/25 06:01 03/14/25 07:38
I&O
03/13/25 03/14/25 03/15/25
06:59 06:59 06:59
Intake Total 1080 / 1080 230.0 / 230.0
Output Total 1120 / 1120 1475 / 1475
Balance -40 / -40 -1245.0 / -1245.0
Review of Systems
-
History Source: Patient
All other systems: Reviewed and negative
[2025-03-14] MEDS: NOVOLOG FLEXPEN-LOW RESISTANCE 1 UNITS SC ×2 (08:03→12:05)
[2025-03-14] MEDS: NSS (PRESERVATIVE FREE) 10 ML IV ×2 (08:03→20:19)
[2025-03-14] MEDS: PROTONIX IV 40 MG IV ×2 (08:03→20:17)
[2025-03-14 08:15] LABS: Glucose - Point of Care 152 mg/dl (70-99)
[2025-03-14] MEDS: VITAMIN B-12 1000 MCG PO (08:44)
[2025-03-14] MEDS: KCL 40 MEQ PO (08:44)
--- NOTE | 2025-03-14 09:00 | PTCARENOTE ---
Rec'd care of patient at 0700. Patient alert and oriented. SENECA-CAYUGA. MAEx4. Vpaced/Afib with BBB and pvcs on tele. +Murmur. +1 edema in b/l LE. Pulse ox 96-97% on 2L nc. Lung sounds coarse rhonchi throughout. Fine crackles auscultated in right base.
Moist, non-productive cough present (chronic per patient). +BS. No BM. Appetite good. Incontinent of urine. Condom catheter in place for I/O. Peripheral sites flushed and capped. VSS. Off Levophed since 1600 03/13. Midodrine initiated. Per
Hospitalist, transfuse an additional unit of PRBCs. PT/OT ordered. Downgraded to IVU level.
--- NOTE | 2025-03-14 09:33 | W.PN.GI.CBS2 ---
Today's Communication / Plan
-
giving additional unit of blood, no signs of active bleeding. GI will sign off, please call with questions.
Assessment / Plan
-
Robert An is a 79 y.o. male with history of afib on Xarelto, CAD s.p CABG, PCI, pacemaker/defibrillator, , CHF, DM, HTN, HLD, CKD, MELANIE tobacco use, colon polyps and history of obscure GI bleeding admitted with near syncope, found to be
hypotensive with a hemoglobin of 6.7, MCV 107, Plt 172. Previous hemoglobin of 8.6 on 11/06/24. He also reports that prior to his presentation suffering a fall and hitting his ribs, refused to come to the ED at that time.�He was given kcentra on
arrival. Hgb improved to 8.1 x2 following transfusion. Hemoglobin this morning was 7.9, giving additional unit now
He has a history of obscure GI bleeding, negative EGD/Colonoscopy/Capsule in 2016, negative EGD/Colonoscopy in [address] Pinzon and then most recently during admission in 09/2024, EGD with a single non bleeding AVM in the stomach, treated with APC
and clip placed, colonoscopy with inadequate prep. He was advised to either repeat EGD or proceed with VCE and to call the office once he decided how he wanted to proceed. It was also recommended that he consider watchman procedure to help decrease
his risk of future GI bleeding. He reports having an iron transfusion with [facility] about 2 weeks prior to admission, last blood transfusion was during admission in September.�
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 High risk for rebleeding. Hold blood thinners for 48 hours following procedure, plan for [facility] to reassess coronary anatomy, if stent placed will need
uninterrupted plavix. I did explain to patient we have very little to treat AVMs with if he has bleeding on blood thinners that we cannot hold. Often, these are self-limited, slow, bleeds that can be managed with blood transfusions/supportive care.
Subjective
Subjective
Date of Service: March 14, 2025
Patient seen in follow-up. Multiple AVMs with high risk stigmata found on EGD yesterday, treated with epi and APC. Hemoglobin stable this morning, being given 1 unit of blood since <8. Plan for [facility] tomorrow.
Objective
Data Reviewed
Laboratory Data:
Laboratory Results
03/14/25 05:24
03/14/25 05:24
Laboratory Results
PT 16.8 Sec (11.4-14.6) H 03/13/25 03:25
INR 1.33 03/13/25 03:25
APTT 38.3 Sec (23.4-35.0) H 03/11/25 13:34
Magnesium 2.0 mg/dl (1.6-2.3) 03/13/25 03:25
Total Bilirubin 1.0 mg/dl (0.2-1.3) 03/13/25 03:25
AST 27 U/L (17-59) 03/13/25 03:25
ALT 17 U/L (0-50) 03/13/25 03:25
Alkaline Phosphatase 81 U/L (38-126) 03/13/25 03:25
Vital Signs and I&O:
Vital Signs
Temp Pulse Resp BP Pulse Ox
97.8 F 55 17 105/49 97
03/14/25 07:33 03/14/25 09:00 03/14/25 09:00 03/14/25 09:00 03/14/25 09:25
I&O
03/13/25 03/14/25 03/15/25
06:59 06:59 06:59
Intake Total 1080 / 1080 230.0 / 230.0 240 / 240
Output Total 1120 / 1120 1475 / 1475
Balance -40 / -40 -1245.0 / -1245.0 240 / 240
Physical Exam
Physical Exam
HEENT: Anicteric and Moist mucous membranes
Cardiology: Murmur and Other
Pulmonary: Clear
GI: Soft, Non Distended and Non Tender
Extremities: No Edema
Neuro: Non Focal
--- NOTE | 2025-03-14 09:52 | W.PN.NEPH.PH ---
Today's Communication / Plan
-
transfuse
Assessment/Plan
-
IMP:
Shock hemorrhagic versus hypovolemic.
Acute blood loss anemia -due to GI bleed
Acute GI bleed , known h/o AVMS
JAY on CKD 3bbaseline cr at 2-follow[address] Dr Yates
Hypokalemia
Acute traumatic left-sided rib fractures -due to fall
Paroxysmal atrial fibrillation
Chronic hyponatremia
COPD without exacerbation
Chronic heart failure reduced EF -stable
CAD/CABG x 4 (2001)
Medtronic single-chamber ICD, 2017
Carotid disease -s/p left CEA 2012.
Essential hypertension
DM 2
Severe aortic stenosis -previously declined TAVR workup.
Hyperlipidemia
Gout
Plan:
hold lasix
for PRBX
ok for [facility] tomorrow
would offer bicarb IVF
he understands risk of JAY/ESRD with TAVR and TAVR eval
high risk
-
-
Date of Service: March 14, 2025
CC / HPI / ROS
-
Chief Complaint:
JAY
History of Present Illness:
Hgb stable low 7.9
JAY/Cr stable 2.2
Na low 128 stable
BP stable
Review of Systems:
no CP
mild SOB
Labs
-
Labs:
WBC 9.9 10^3/uL (4.8-10.8) 03/14/25 05:24
RBC 2.34 10^6/uL (4.70-6.10) L 03/14/25 05:24
Hgb 7.9 g/dL (13.0-18.0) L 03/14/25 05:24
Hct 24.0 % (39.0-52.0) L 03/14/25 05:24
Plt Count 153 10^3/uL (130-400) 03/14/25 05:24
Sodium 128 mmol/L (135-145) L 03/14/25 05:24
Potassium 3.6 mmol/L (3.5-5.1) 03/14/25 05:24
Chloride 98 mmol/L (98-107) 03/14/25 05:24
Carbon Dioxide 23 mmol/L (22-30) 03/14/25 05:24
BUN 126 mg/dl (9-20) H* 03/14/25 05:24
Creatinine 2.2 mg/dL (0.7-1.3) H 03/14/25 05:24
eGFR 29.72 03/14/25 05:24
Glucose 133 mg/dl (70-99) H 03/14/25 05:24
Calcium 9.0 mg/dl (8.4-10.2) 03/14/25 05:24
Tfd-F-Rafmkvizlwg Pept 3620 pg/ml 03/12/25 04:01
Albumin 2.9 g/dl (3.5-5.0) L 03/13/25 03:25
Physical Exam
-
Vital Signs:
Vital Signs
Temp Pulse Resp BP Pulse Ox
97.8 F 55 17 105/49 97
03/14/25 07:33 03/14/25 09:00 03/14/25 09:00 03/14/25 09:00 03/14/25 09:25
Cardiovascular:: Irregular rate and rhythm
Respiratory:: Bilateral: Coarse
Lung Excursion:: Normal
Abdomen:: Nontender and Soft
Bowel Sounds:: Normal
Extremity Edema:: None: Bilateral:
--- NOTE | 2025-03-14 10:06 | PTCARENOTE ---
1 unit PRBCs transfusing. VSS.
--- NOTE | 2025-03-14 10:10 | W.PN.CARDCBS ---
Addendum entered and electronically signed by Nazario Sutton MD 03/14/25 11:16:
I saw and examined the patient.
The SLOPE HOIST OPERATOR or PA's note was reviewed and I agree with the note.
Comment: General: Well developed, well nourished in NAD.
Neck: Supple, no JVD, HJR, carotids +2 B/L, no bruits bilaterally.
Heart: Non displaced PMI, RRR, no murmurs, No S3, S4, no rubs.
Lungs: Scattered rhonchi
Extremities: No clubbing, cyanosis or edema bilaterally.
Neuro: Grossly nonfocal, awake, alert and oriented x3.
He appears improved. Lasix on hold with improved creatinine of 2.2. Tentative plan for catheterization on 03/15 if remains stable and no further deterioration in renal function or worsening anemia. This will be in preparation for possible
outpatient TAVR although he does have MR and TR which may not improve. Discussed with primary service, nephrology, GI. For transfusion today.
Original Note:
Today's Communication / Plan
-
Lasix remains on hold, but weight and oxygen demands stable
1 unit PRBCs today
C Wednesday, cont to hold Eliquis
Impression / Plan
-
PCP: Dr. Eason
Primary Gravity Manager: Dr. Sutton
Impression:
Admitted with shock, anemia and possible CHF 03/11/25
Hemorrhagic shock
Heme positive anemia
s/p 2 units PRBCs 03/11/25
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
Severe since 2018
s/p TAVR work-up with MPG 27 at time of cath and not recommended TAVR 01/2023
Possible acute on chronic HFrEF
ICM EF 35-40% by echo 10/09/24
History of reduced ejection fraction heart failure with recovered EF
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
CAD status post CABGx4 in setting of [place] in 2001
carotid disease s/p left CEA in 2012
s/p Medtronic single chamber ICD 2018
Persistent Afib
Chronic Eliquis OAC
DM 2
Gout
Smoker, ongoing tobacco use
Echo 08/23/2019: EF 30-35%, global hypokinesis with inferolateral, inferior and basal septal akinesis, mild MR, sev pressure 47/28 mmHg
ECHO 12/03/22: EF 50%, mild LVH, stage III diastolic dysfunction, mild MR, severe with peak/mean gradients 54/28 mmHg, KAELYN 0.8 cm�, trace AR, mild TR, PAP 64 mmHg, mild dilation of aorta measuring 4.0 cm
Echo 10/09/2024: EF 35 to 40%, moderate eccentric MR, severe peak/mean 60/34 mmHg and KAELYN 0.8 cm sq, mild aortic insufficiency, moderate TR with PAP 64 mmHg
Echo 03/12/2025: EF 31%, global hypokinesis, moderate MR, severe peak/mean 41/22 mmHg and KAELYN 0.7 cm sq, mild aortic regurgitation, moderate to severe TR with PAP 72 mmHg
Plan:
-Medtronic single chamber ICD reprogrammed to VVI 50 on 03/13/25. Eventually consider upgrade to DC ICD or even OUTBOARD TECHNICIAN-D to help with synchrony.
-Patient with known persistent Afib and now with recurrent GIB so outpatient dose of Eliquis 5 mg BID (Cre 2.4, wt 68 kg, age 79) is on hold, last dose 03/11/25 AM. No h/o thromboembolic event.
-GI notes reviewed by me on 03/13/2025, patient with multiple recently bleeding angiectasia's in the stomach that were injected and then treated with monopolar probe, he could have more AVMs in the distal small bowel or colon.
-Hgb 7.9 on 03/14/2025, labs reviewed by me. Patient given 1 unit PRBC 03/14/2025 and was transfused earlier this admission as well.
-Two falls just prior to admission that were not clearly syncope and may in fact have been related to a combination of events including his severe and his anemia. ICD programming changes as noted above.
-Patient interested in TAVR evaluation. Patient had previous TAVR evaluation in 2022 and MPG was 27 mmHg at that time. Patient had echo 10/09/2024 with EF 35 to 40% his mean gradient was 34 mmHg and repeat echo this admission with EF 31% the mean
gradient is 22 mmHg. Left heart cath planned for 03/16/2025.
-We discussed hurdles to TAVR evaluation including anemia, JAY on CKD 4 and general frailty. We discussed cardiac cath this admission and then outpatient CT that will likely be split into 2 phases due to JAY.
-proBNP 3620. Remains on oxygen at 2 L NC which has been stable. Weight stable at 151 lbs on VS reviewed by me 03/14/25. Overall weight is down almost 20 pounds from admission 09/2024.
-Outpatient doses of Lasix 120 mg BID and metolazone 2.5 mg BID are on hold.
HPI: Patient came to the ER yesterday with generalized weakness and was admitted with acute on chronic anemia and concern for recent falls, cardiology is now consulted for severe . Patient was admitted to the hospital 09/11/2024 until 09/15/2024
with GIB related to a single nonbleeding angiectasia in the stomach that was treated with argon plasma coagulation and clips were placed. Prior to that admission patient had had a workup for his known severe back in 2022 and his mean gradient at
time of cath was only 27 and so TAVR was not recommended at that time. Following his admission for GIB there was renewed interest in TAVR evaluation, but patient felt somewhat disheartened from the previous workup and additional workup has not
since been pursued. Patient reports 2 episodes in the last 2 weeks of standing up from the bathroom and while walking in the hallway feeling weak and then falling, possible syncope although he is a poor historian. During one of the falls he landed
on his left side and on CXR and CT chest/ABD imaging on admission he was found to have left sided rib fractures. On imaging there is no evidence of pleural effusion or acute HF, but there is evidence of fibrosis and he is a known smoker. Patient
found to be anemic with Hgb as low as 6.7 on admission. Patient given 2 units PRBCs and Hgb is now stable at 8.1. During his last GIB admission he had upper endoscopy as noted, but colonoscopy preparation was poor and there was not an attempt to
retry as an outpatient. Patient also with known CKD 4 and Cre on admission as high as 2.6 with baseline Cre closer to 2.0. Patient denies any chest pain or SOB. Patient also with history of persistent A-fib with A-fib on ECG as far back as
September. Monitoring through his single-chamber ICD is difficult due to it being a single-chamber device. Patient is chronically on Eliquis 5 mg BID which is now on hold with GIB.
Progress Note - Gravity Manager
Subjective
Date of Service: March 14, 2025
He feels well, no chest pain
Objective
Labs:
03/14/25 05:24
03/14/25 05:24
Labs
Hgb 7.9 g/dL (13.0-18.0) L 03/14/25 05:24
Hct 24.0 % (39.0-52.0) L 03/14/25 05:24
Plt Count 153 10^3/uL (130-400) 03/14/25 05:24
PT 16.8 Sec (11.4-14.6) H 03/13/25 03:25
INR 1.33 03/13/25 03:25
APTT 38.3 Sec (23.4-35.0) H 03/11/25 13:34
Sodium 128 mmol/L (135-145) L 03/14/25 05:24
Potassium 3.6 mmol/L (3.5-5.1) 03/14/25 05:24
BUN 126 mg/dl (9-20) H* 03/14/25 05:24
Creatinine 2.2 mg/dL (0.7-1.3) H 03/14/25 05:24
Glucose 133 mg/dl (70-99) H 03/14/25 05:24
Vital Signs and I&O:
Vital Signs
Temp Pulse Resp BP Pulse Ox
98.0 F 61 19 110/59 97
03/14/25 10:01 03/14/25 10:01 03/14/25 10:01 03/14/25 10:01 03/14/25 10:01
Vital Signs
Temp Pulse Resp BP Pulse Ox
98.0 F 61 19 110/59 97
03/14/25 10:01 03/14/25 10:01 03/14/25 10:01 03/14/25 10:01 03/14/25 10:01
Intake & Output
03/12/25 03/13/25 03/14/25 03/15/25
06:59 06:59 06:59 06:59
Intake Total 1200 / 1200 1080 / 1080 230.0 / 230.0 240 / 240
Output Total 1400 / 1400 1120 / 1120 1475 / 1475
Balance -200 / -200 -40 / -40 -1245.0 / -1245.0 240 / 240
Physical Exam
Physical Exam
General: NAD, AAOX3
HEENT: EOMI
Heart: Afib on tele. Irreg irreg, 2/6 AHSM
Lungs: 2 L NC.
Ext: Trace B/L LE edema
Neuro: nonfocal
[2025-03-14] MEDS: TYLENOL 650 MG PO (10:24)
[2025-03-14] MEDS: AZOPT 1% OPHTHALMIC SUSPENSION 1 DROP BOTH EYES ×2 (12:05→22:23)
[2025-03-14 12:11] LABS: Glucose - Point of Care 173 mg/dl (70-99)
--- NOTE | 2025-03-14 14:39 | PTCARENOTE ---
PT/OT at bedside.
--- NOTE | 2025-03-14 15:52 | CM ---
Received 1 U PRBC for HGB 7.9. Left heart cath on 03/16/25. Discharge POC: Therapy recommends SNF. Medicare [employer] list provided to patient with explanation.
--- NOTE | 2025-03-14 16:05 | TRANSFER ---
Patient transferred in bed with belongings to IVU.
[2025-03-14 16:23] LABS: Glucose - Point of Care 271 mg/dl (70-99)
[2025-03-14] MEDS: NOVOLOG FLEXPEN-LOW RESISTANCE 3 UNITS SC (17:49)
--- NOTE | 2025-03-14 18:11 | PTCARENOTE ---
Received pt from ICU. Oriented pt to IVU. Discussed plan for cardiac cath on 03/15. VSS. Will monitor.
[2025-03-14 22:02] LABS: Glucose - Point of Care 260 mg/dl (70-99)
[2025-03-14] MEDS: LANTUS 0.07 UNITS SC (22:22)
--- NOTE | 2025-03-14 23:20 | PTCARENOTE ---
Rec'd pt at change of shift. Pt AAO*3, VSS, and afib on TELE monitor with PVC's. PT updated on plan of care and agreed to NPO status at midnight for possible heart cath in AM. Pt denies any pain or discomfort. Currently resting with call moreno in
reach. Pt kept on high fall risk precaution. Sequentials on for shift. See MAR and flowchart for full pt care and assessment.
[2025-03-15] VITALS (26 sets, daily range): BP systolic 93–130; BP diastolic 47–72; BMI 24.8
[2025-03-15] MEDS: MELATONIN 5 MG PO ×2 (00:12→21:45)
[2025-03-15 02:41] LABS: Hematocrit 27.9 % (39.0-52.0); Hemoglobin 9.7 g/dL (13.0-18.0); Mean Corp Hgb Conc. 34.8 g/dL (33.0-37.0); Mean Corpuscular Volume 97.9 fL (80.0-94.0); Nucleated Red Blood Cells % 1.1 % (-); Platelet Count 145 10^3/uL (130-400); Red Cell Dist. Width 23.6 % (11.5-14.5)
[2025-03-15 02:46] LABS: Blood Urea Nitrogen 112 mg/dl (9-20); Calcium 9.0 mg/dl (8.4-10.2); Carbon Dioxide 22 mmol/L (22-30); Chloride 99 mmol/L (98-107); Estimated Creatinine Clearance 28 ml/min; Glucose 203 mg/dl (70-99); Magnesium 2.0 mg/dl (1.6-2.3); Potassium 3.9 mmol/L (3.5-5.1); Sodium 129 mmol/L (135-145); eGFR 35.44
[2025-03-15 04:32] LABS: Anisocytosis 2+; Normal RBC Morphology No
[2025-03-15 04:33] LABS: Macrocytosis 3+
--- NOTE | 2025-03-15 07:29 | PTCARENOTE ---
Pt verbalizes feeling of constipation after being walked to BR. PRN constipation medication offered, pt asked for supplies to 'disimpact' himself. RN advised pt not to disimpact self explaining infection prevention and safety concern. Pt later
ambulated to BR with staff assistance and rolling walker. RN found pt sitting on toilet with hand and sacral area covered in stool. Pt cleaned by RN including hands and under fingernails. Additional teaching provided. Pt assisted back into bed.
Pt resting with call moreno in reach and plan of care ongoing.
[2025-03-15] MEDS: VITAMIN B-12 1000 MCG PO (07:35)
[2025-03-15] MEDS: LIPITOR 80 MG PO (07:35)
[2025-03-15] MEDS: NSS (PRESERVATIVE FREE) 10 ML IV ×2 (07:35→19:51)
[2025-03-15] MEDS: PROTONIX IV 40 MG IV ×2 (07:35→19:51)
[2025-03-15] MEDS: FLUSH (NSS) 1 FLUSH IV (07:39)
[2025-03-15 07:43] LABS: Glucose - Point of Care 188 mg/dl (70-99)
[2025-03-15] MEDS: NOVOLOG FLEXPEN-LOW RESISTANCE 1 UNITS SC ×3 (07:52→17:31)
[2025-03-15] MEDS: SENOKOT-S 1 TABLET PO (08:02)
[2025-03-15] MEDS: DUONEB 3 ML INH ×3 (08:22→15:31)
[2025-03-15] MEDS: PULMICORT 0.5 MG INH ×2 (08:22→19:17)
--- NOTE | 2025-03-15 08:44 | W.PN.HOSP.TC ---
Today's Communication/Plan
-
Possible catheterization
Assessment / Plan
Assessment / Plan
Gen-AAOx3, NAD
HEENT-NC, AT, anicteric, clear oral mm
Neck-supple
CV-reg, no M, +S1/S2
Lungs-bilateral rhonchi
Abd-soft, NT, ND
Ext-no edema
Musculoskeletal-no cyanosis, clubbing
Skin-warm and dry
Neuro-grossly non-focal
Psych-calm, cooperative
Shock -shock resolved. Currently on midodrine 5 mg 3 times daily. Etiology of persistent hypotension unclear, but I suspect cardiogenic shock is the driving factor given valvular heart disease as well as cardiomyopathy with LVEF 31%, global
hypokinesis.
Syncope 1 week prior to admission as well as presentation with near syncope concerning for worsening aortic stenosis, valvular heart disease, cardiomyopathy.
Continue compression stockings.
Acute blood loss anemia -due to upper GI bleed. Hemoglobin improved after 3 units transfusion, 9.7 today, admission hemoglobin 6.7.
Suspect acute blood loss anemia due to GI bleed in the setting of anticoagulation with Eliquis.
Administered 3600 units of Kcentra on March 11.
Anemia labs not consistent with iron deficiency. Previous labs in October showed normal B12 and folic acid levels.
CT chest and abdomen on presentation without retroperitoneal bleed or other pathology.
Acute GI bleed -suspect due to gastric AVMs noted on endoscopy 03/13. AVMs likely related to severe aortic stenosis. GI bleed exacerbated by anticoagulation with Eliquis. Currently on IV Protonix twice daily.
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 Creatinine improved to 1.9 today. Renal/bladder ultrasound without hydronephrosis. Mildly echogenic kidneys noted. Nephrology ordered sodium bicarbonate infusion
in preparation for cardiac catheterization.
Hypokalemia -improved.
Acute traumatic left-sided rib fractures -due to fall. Fractures of 7, 9, 10, 11 ribs on the left.
Paroxysmal atrial fibrillation -on chronic Eliquis. Hold Eliquis for acute GI bleed, acute blood loss anemia. Relatively bradycardic, heart rate in the 40s. Carvedilol on hold. Cardiology following. Does have ICD/defibrillator. Check TSH.
Chronic hyponatremia -sodium currently 129, at baseline.
COPD without exacerbation
Chronic heart failure reduced EF -stable. On chronic furosemide, metolazone, spironolactone, all of which have been on hold in the hospital due to hypotension.
Echocardiogram done 03/12 shows LVEF 31%, global hypokinesis, indeterminate diastolic function, moderate MR, severe , moderate to severe TR.
CAD/CABG x 4 (2001) - stable.
Medtronic single-chamber ICD, 2018
Carotid disease -s/p left CEA 2012.
Essential hypertension -currently hypotensive.
DM 2 with hyperglycemia -glucose 133 this morning, 237 last night. He uses Lantus 24 units daily at home, NovoLog 6 units AC.
In the hospital he is on Lantus 7 units at bedtime. Add low resistance NovoLog scale. Hemoglobin A1c 6.5%, may not be reliable due to chronic anemia.
Severe aortic stenosis -cardiology following and considering evaluation for TAVR. Plan is for cardiac catheterization today per cardiology although I do not see a n.p.o. order. [place] text sent to cardiology service.
Hyperlipidemia -atorvastatin.
Gout -allopurinol.
Tobacco dependence -cessation advised.
Full code
Dispo -SNF when medically stable.
Anticipated Discharge: 24 - 48 hours
Subjective/Interval History
-
Date of Service: March 15, 2025
Patient seen and examined. Complaining of insomnia. Denies shortness of breath.
Objective Data
-
Labs:
Laboratory Results
03/15/25
02:20
WBC 10.1
Hgb 9.7 L D
Hct 27.9 L
Plt Count 145
Sodium 129 L
Potassium 3.9
Chloride 99
Carbon Dioxide 22
BUN 112 H*
Creatinine 1.9 H
Glucose 203 H
Calcium 9.0
Vital Signs:
Vital Signs
Temp Pulse Resp BP Pulse Ox
97.4 F 54 16 118/68 99
03/15/25 07:49 03/15/25 08:28 03/15/25 08:28 03/15/25 02:13 03/15/25 08:28
I&O
03/14/25 03/15/25 03/16/25
06:59 06:59 06:59
Intake Total 230.0 / 230.0 1820 / 1820
Output Total 1475 / 1475 1125 / 1125
Balance -1245.0 / -1245.0 695 / 695
Review of Systems
-
History Source: Patient
All other systems: Reviewed and negative
--- NOTE | 2025-03-15 10:42 | W.PN.NEPH.PH ---
Today's Communication / Plan
-
LHC
Assessment/Plan
-
IMP:
Shock hemorrhagic versus hypovolemic.
Acute blood loss anemia -due to GI bleed
Acute GI bleed , known h/o AVMS
JAY on CKD 3bbaseline cr at 2-follow[address] Dr Yates
Hypokalemia
Acute traumatic left-sided rib fractures -due to fall
Paroxysmal atrial fibrillation
Chronic hyponatremia
COPD without exacerbation
Chronic heart failure reduced EF -stable
CAD/CABG x 4 (2001)
Medtronic single-chamber ICD, 2017
Carotid disease -s/p left CEA 2012.
Essential hypertension
DM 2
Severe aortic stenosis -previously declined TAVR workup.
Hyperlipidemia
Gout
Plan:
hold lasix
follow hgb
ok for [facility]
will offer bicarb IVF
he understands risk of JAY/ESRD with TAVR and TAVR eval
-
-
Date of Service: March 15, 2025
CC / HPI / ROS
-
Chief Complaint:
JAY
History of Present Illness:
Hgb u pto 9.7 after transfusion
JAY/Cr stable 1.9
Na low 129 stable
BP stable
Review of Systems:
no CP
mild SOB
Labs
-
Labs:
WBC 10.1 10^3/uL (4.8-10.8) 03/15/25 02:20
RBC 2.85 10^6/uL (4.70-6.10) L 03/15/25 02:20
Hgb 9.7 g/dL (13.0-18.0) L D 03/15/25 02:20
Hct 27.9 % (39.0-52.0) L 03/15/25 02:20
Plt Count 145 10^3/uL (130-400) 03/15/25 02:20
Sodium 129 mmol/L (135-145) L 03/15/25 02:20
Potassium 3.9 mmol/L (3.5-5.1) 03/15/25 02:20
Chloride 99 mmol/L (98-107) 03/15/25 02:20
Carbon Dioxide 22 mmol/L (22-30) 03/15/25 02:20
BUN 112 mg/dl (9-20) H* 03/15/25 02:20
Creatinine 1.9 mg/dL (0.7-1.3) H 03/15/25 02:20
eGFR 35.44 03/15/25 02:20
Glucose 203 mg/dl (70-99) H 03/15/25 02:20
Calcium 9.0 mg/dl (8.4-10.2) 03/15/25 02:20
Rdt-Z-Ugyaljqldro Pept 3620 pg/ml 03/12/25 04:01
Albumin 2.9 g/dl (3.5-5.0) L 03/13/25 03:25
Physical Exam
-
Vital Signs:
Vital Signs
Temp Pulse Resp BP Pulse Ox
97.4 F 54 16 118/68 99
03/15/25 07:49 03/15/25 08:28 03/15/25 08:28 03/15/25 02:13 03/15/25 08:28
Cardiovascular:: Regular rate and rhythm
Respiratory:: Bilateral: Coarse
Lung Excursion:: Normal
Abdomen:: Nontender and Soft
Bowel Sounds:: Normal
Extremity Edema:: None: Bilateral:
[2025-03-15 11:31] LABS: Glucose - Point of Care 170 mg/dl (70-99)
[2025-03-15] MEDS: SODIUM BICARBONATE 1150 MEQ IV (13:42)
[2025-03-15] MEDS: AZOPT 1% OPHTHALMIC SUSPENSION 1 DROP BOTH EYES ×2 (13:43→21:44)
--- NOTE | 2025-03-15 15:12 | ITS.CL.CATH ---
Valet Manager - Catheterization
Cardiac Catheterization
Procedure Report:
RIGHT AND LEFT HEART CATHETERIZATION
Date of Procedure: March 15, 2025
Referring: Dr. Nazario Sutton
PROCEDURES:
1. Right heart catheterization
2. Left heart catheterization with coronary angiography
3. Saphenous vein graft, free radial, VENANCIO angiography
INDICATION: This is a 79-year-old gentleman with known coronary artery disease and history of coronary artery bypass grafting in September 2001 with NAVAS-LAD, free radial-ramus, SVG-PLB, and SVG-OM which is known to be occluded. He was admitted to
[facility] with recurring GI bleeding. He has known LV dysfunction and aortic stenosis with increased shortness of breath and symptoms concerning for low output low gradient aortic stenosis.
-03/12/2025: Echo: LV: Moderately reduced EF with global HK and EF of 31%. RV: Normal, LA: Severely dilated, RA: Normal, MV: Moderate MR, AV: Thickened and trileaflet. Peak and mean gradient 41 and 42 mmHg respectively. Estimated KAELYN based on
continuity equation is 0.7 cm� when using an LVOT of 2.0 cm. There is mild AI. TV: Moderate-severe TR with estimated PAP of 72 mmHg consistent with severe pulmonary hypertension
-10/09/2024: Echo: LV: Mild to moderately reduced EF estimated 35-40% by visual estimation. Mild concentric LVH. RV: Normal, LA: Moderately dilated, RA: Normal, MV: Moderate eccentric MR. AV: Thickened and calcified with peak and mean gradients
of 60 and 34 mmHg and estimated KAELYN of 0.8 cm� when using an LVOT diameter of 2.1. Peak velocity is 3.45 m/s with a dimensionless index of 0.31. There is mild AI. TV: Moderate TR with estimated pulmonary artery systolic pressures of 64 mmHg
-05/27/2017: TAVR CT: Annulus: 531 mm� (31.2 x 23.5 mm), LVOT: 520 mm�, S OV: 32.5 x 32.9 x 31.7 mm, STJ: 30.7 x 29.8
ACCESS: Right common femoral artery, 6 British sheath with ultrasound guidance and right common femoral vein, 6 British sheath with ultrasound guidance and placement of a 6 British sheath
HEMODYNAMICS (mmHg) :
RA (m) : 14
RV (s/d) : 69/2
PA (s/d,m) : 67/28, 44
PCWP (m) : 24
AO (s/d, m) : 108/54, 81
LV (s/d) : 139/16
LVEDP (m) : 18
Estimated [place] Cardiac Output: 5.4 L/min and Cardiac Index: 3.0 L/min/M-2
Systemic vascular resistance: 12.4 Wood units or 992 [id number]-cu(-5)
Pulmonary vascular resistance: 3.7 Wood units or 296 [id number]-hhe-lu(-5)
AORTIC VALVE:
Mean gradient: 28 mmHg
Aortic valve area: 0.95 cm�
Stroke Volume: 63 ml
Stroke Volume Index: 35.5 ml/m2
CORONARY ANGIOGRAPHY
Dominance: Right
LEFT MAIN: Tapers distally
LEFT ANTERIOR DESCENDING: The LAD arises from the left main and is 100% occluded in its midportion. The NAVAS-LAD vs diagonal is patent to either the mid LAD or more likely a diagonal branch. There is antegrade and retrograde filling. Retrograde
the LAD is diffusely diseased. Antegrade the NAVAS fills a small diagonal branch. There are well developed septal collaterals from the RCA noted during angiography of SVG-PDA.
RAMUS : Occluded at its origin. The distal vessel fills via a patent free radial-ramus graft
CIRCUMFLEX: 100% occluded at its origin
RIGHT CORONARY ARTERY: Known to be occluded with patent SVG-PDA
GRAFT ANGIOGRAPHY:
1. NAVAS-LAD: The NAVAS graft is anastomosed to either to the mid LAD or diagonal branch. There are well developed septal collaterals from the RCA to the elem LAD which fills via faint collaterals
2. Free radial-Ramus: Widely patent
3. SVG-OM: 100% occluded
4. SVG-PDA: Degenerative disease is noted with 50-55% stenosis in the mid body of the SVG to the PDA which appears angiographically stable
LEFT VENTRICULOGRAPHY: Not done
SEDATION: 48 minutes of procedural sedation was utilized. An independent medical corps officer was present to assist with and help manage the patient's level of consciousness and physiologic status.
RADIATION SUMMARY: Fluoro Time (min): 10.1, Dose (mGy): 512, DAP (Gy.cm2) : 42.4
Closure Device: None
CONCLUSION
1. Hemodynamically moderate-severe aortic stenosis
2. Stable coronary anatomy
RECOMMENDATIONS
1. Echocardiogram and angiograms will need to be reviewed at [facility]
Copy to: Dr. Nazario Sutton
[2025-03-15] MEDS: LOW STRENGTH ASPIRIN 324 MG PO (16:50)
[2025-03-15 16:56] LABS: Glucose - Point of Care 175 mg/dl (70-99)
[2025-03-15 17:56] LABS: Glucose - Point of Care 170 mg/dl (70-99)
--- NOTE | 2025-03-15 18:00 | PTCARENOTE ---
Pt received this am with no c/o of any chest pain or sob. Assisted oob to the BR and to the chair with the walker and 1 assist. Returned post cath with sheath intact to right femoral artery. laborer wood preserving plant nurse pulled sheath after pt arrived to the room.
[2025-03-15 21:35] LABS: Glucose - Point of Care 206 mg/dl (70-99)
[2025-03-15] MEDS: TYLENOL 650 MG PO (21:45)
[2025-03-15] MEDS: LANTUS 0.07 UNITS SC (21:45)
[2025-03-16] VITALS (12 sets, daily range): BP systolic 92–121; BP diastolic 35–82; PULSE 56–86; O2SAT 95–99; BMI 24.6
--- NOTE | 2025-03-16 01:30 | PTCARENOTE ---
Able to get pt. OOB post-cath this evening without difficulty, ambulates with assist x 1 & RW. VSS. Right groin site dressing intact without bleeding or hematoma, circulation intact. Pt. incontinent of urine at times or spills urine on him self;
#30 CC applied to keep cath incision site clean. Moist cough present with scattered b/l rhonchi - RA pulse ox 88-89%. 2L reapplied with pulse ox increasing to 94%
--- NOTE | 2025-03-16 01:38 | PTCARENOTE ---
Able to get pt. OOB post cath this evening without difficulty, uses RW & assist x 1. VSS, V-paced with PVC's on the monitor. Right groin cath site CDI without bleeding or hematoma, circulation intact. Either incontinent of urine or spills urinal on
self when attempting to urinate. Perineal care provided, # 30 CC placed to keep cath site clean. No complaints pain/discomfort, pt. resting quietly.
[2025-03-16 02:58] LABS: Hematocrit 27.0 % (39.0-52.0); Hemoglobin 9.2 g/dL (13.0-18.0); Mean Corp Hgb Conc. 34.1 g/dL (33.0-37.0); Mean Corpuscular Volume 99.6 fL (80.0-94.0); Platelet Count 139 10^3/uL (130-400); Red Cell Dist. Width 23.9 % (11.5-14.5)
[2025-03-16 03:17] LABS: Blood Urea Nitrogen 98 mg/dl (9-20); Calcium 8.4 mg/dl (8.4-10.2); Carbon Dioxide 25 mmol/L (22-30); Chloride 100 mmol/L (98-107); Estimated Creatinine Clearance 27 ml/min; Glucose 162 mg/dl (70-99); Potassium 3.6 mmol/L (3.5-5.1); Sodium 132 mmol/L (135-145); eGFR 33.32
[2025-03-16] MEDS: PULMICORT 0.5 MG INH ×2 (07:46→17:49)
[2025-03-16] MEDS: VITAMIN B-12 1000 MCG PO (08:34)
[2025-03-16] MEDS: LIPITOR 80 MG PO (08:34)
[2025-03-16] MEDS: NSS (PRESERVATIVE FREE) 10 ML IV (08:35)
[2025-03-16] MEDS: PROTONIX IV 40 MG IV (08:35)
[2025-03-16 08:40] LABS: Glucose - Point of Care 169 mg/dl (70-99)
[2025-03-16] MEDS: NOVOLOG FLEXPEN-LOW RESISTANCE 1 UNITS SC ×2 (08:40→12:29)
--- NOTE | 2025-03-16 08:40 | W.PN.HOSP.TC ---
Addendum entered and electronically signed by Refugio Eduardo DO 03/16/25 12:42:
I spoke with GI attending and he recommends waiting 5 days after APC procedure during EGD before resuming Eliquis. Therefore, Eliquis can be resumed on March 18.
Original Note:
Today's Communication/Plan
-
Discharge planning
Assessment / Plan
Assessment / Plan
Gen-AAOx3, NAD
HEENT-NC, AT, anicteric, clear oral mm
Neck-supple
CV-reg, no M, +S1/S2
Lungs-bilateral rhonchi
Abd-soft, NT, ND
Ext-no edema
Musculoskeletal-no cyanosis, clubbing
Skin-warm and dry, bilateral lower extremity erythema with minimal warmth, no tenderness
Neuro-grossly non-focal
Psych-calm, cooperative
Shock -shock resolved. Currently on midodrine 5 mg 3 times daily. Etiology of persistent hypotension unclear, but I suspect cardiogenic shock is the driving factor given valvular heart disease as well as cardiomyopathy with LVEF 31%, global
hypokinesis.
Syncope 1 week prior to admission as well as presentation with near syncope concerning for worsening aortic stenosis, valvular heart disease, cardiomyopathy.
Acute blood loss anemia -due to upper GI bleed. Hemoglobin improved after 3 units transfusion, 9.2 today, admission hemoglobin 6.7.
Suspect acute blood loss anemia due to GI bleed in the setting of anticoagulation with Eliquis.
Administered 3600 units of Kcentra on March 11.
Anemia labs not consistent with iron deficiency. Previous labs in October showed normal B12 and folic acid levels.
CT chest and abdomen on presentation without retroperitoneal bleed or other pathology.
Acute GI bleed -suspect due to gastric AVMs noted on endoscopy 03/13. AVMs likely related to severe aortic stenosis. GI bleed exacerbated by anticoagulation with Eliquis. Currently on Protonix twice daily.
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 Creatinine stable at 2.0. Renal/bladder ultrasound without hydronephrosis. Mildly echogenic kidneys noted. Nephrology ordered sodium bicarbonate infusion in
preparation for cardiac catheterization.
Bilateral lower extremity venous stasis dermatitis -Bryce compression wraps ordered.
Hypokalemia -improved.
Acute traumatic left-sided rib fractures -due to fall. Fractures of 7, 9, 10, 11 ribs on the left.
Paroxysmal atrial fibrillation -on chronic Eliquis. Hold Eliquis for acute GI bleed, acute blood loss anemia. Relatively bradycardic, heart rate in the 40s. Carvedilol on hold. Cardiology following. Does have ICD/defibrillator. Check TSH.
Chronic hyponatremia -sodium improving, 132 today.
COPD without exacerbation
Chronic heart failure reduced EF -stable. On chronic furosemide, metolazone, spironolactone, all of which have been on hold in the hospital due to hypotension.
Echocardiogram done 03/12 shows LVEF 31%, global hypokinesis, indeterminate diastolic function, moderate MR, severe , moderate to severe TR.
CAD/CABG x 4 (2001) - stable.
Medtronic single-chamber ICD, 2018
Carotid disease -s/p left CEA 2012.
Essential hypertension -currently hypotensive.
DM 2 with hyperglycemia -glucose 133 this morning, 237 last night. He uses Lantus 24 units daily at home, NovoLog 6 units AC.
In the hospital he is on Lantus 7 units at bedtime. Add low resistance NovoLog scale. Hemoglobin A1c 6.5%, may not be reliable due to chronic anemia.
Severe aortic stenosis -cardiology following and considering evaluation for TAVR. Cardiac catheterization performed 03/15, showing moderate to severe .
Hyperlipidemia -atorvastatin.
Gout -allopurinol.
Tobacco dependence -cessation advised.
Full code
Dispo -medically stable for discharge to SNF.
Anticipated Discharge: Within 24 hours
Subjective/Interval History
-
Date of Service: March 16, 2025
Patient seen and examined. Complaining of insomnia.
Objective Data
-
Labs:
Laboratory Results
03/16/25
02:44
WBC 9.2
Hgb 9.2 L
Hct 27.0 L
Plt Count 139
Sodium 132 L
Potassium 3.6
Chloride 100
Carbon Dioxide 25
BUN 98 H
Creatinine 2.0 H
Glucose 162 H
Calcium 8.4
Vital Signs:
Vital Signs
Temp Pulse Resp BP Pulse Ox
97.6 F 70 18 115/48 100
03/16/25 07:10 03/16/25 07:46 03/16/25 07:46 03/16/25 02:38 03/16/25 07:10
I&O
03/15/25 03/16/25 03/17/25
06:59 06:59 06:59
Intake Total 1820 / 1820
Output Total 1125 / 1125 600 / 600
Balance 695 / 695 -600 / -600
Review of Systems
-
History Source: Patient
All other systems: Reviewed and negative
--- NOTE | 2025-03-16 09:20 | W.PN.CARDCBS ---
Addendum entered and electronically signed by Ivan John MD 03/16/25 14:20:
79-year-old admitted March 11 with weakness, anemia hemoglobin 6.7. History of aortic stenosis, previously evaluated for TAVR and felt not to require, status post cath March 15
PMH: GI bleeding related to angioectasia, CKD stage IV, has ICD in place, acute on chronic HFrEF, ischemic cardiomyopathy, EF 31%, CABG times 12/2001, left CEA, Medtronic single-chamber ICD 2017, permanent A-fib, diabetes, gout, ongoing smoker
Current medications: Pulmicort, DuoNebs, insulin, midodrine 5 3 times daily, atorvastatin 80 mg a day, B12, melatonin, pantoprazole, 40 mg twice daily, furosemide 40 mg twice daily, just restarted, had been on apixaban, currently on hold, had been
on carvedilol 3.125 twice daily, furosemide had been 120 twice daily with metolazone 2.5 twice daily, potassium 40 mill equivalents twice daily, with additional 20, spironolactone 12.5 atorvastatin
116/82, pulse 81, resp rate 16 afebrile, Weight is 69.1 kg down 0.7 kg admission weight was 72.1 kg, no distress, some crackles in bases, and murmur, irregular, JVD probably okay, trace to 1+ edema
Hemoglobin is 9.2, platelets 139, BUN and creatinine are 98 and 2.0, potassium is 3.6
Catheterization 03/15/2025: Mean aortic valve gradient 28 mmHg, aortic valve area 0.95 cm 2, cardiac index is 3. Left main okay, 100% mid LAD, NAVAS to LAD or diagonal is patent, collaterals to RCA via septals, ramus is occluded, free radial to ramus
is patent, circumflex is occluded, RCA is occluded, vein to PDA is patent with 58-55% stenosis, wedge pressure 24
Impression: As below per Marleen Davis. Reviewed in detail and agree, unless otherwise specified.
Plan:
Overall, he is relatively stable regarding his aortic stenosis and HFrEF
Creatinine is stable following right and left heart cath yesterday. Furosemide has been restarted at 40 twice a day. As outpatient he is on furosemide 120 mg twice daily with metolazone 2.5 mg twice daily.,
Okay to begin discharge planning
Ultimate management for aortic stenosis per structural heart team
Hemoglobin is improved. High rebleeding risk but we have been given greenlight to restart anticoagulation after 48 hours following APC. Will reconsider over the next day or so.
Carvedilol, metolazone, spironolactone, atorvastatin still on hold
Original Note:
Today's Communication / Plan
-
Consider restarting diuretics
TAVR evaluation in outpatient setting
Remains off Eliquis, hemoglobin stable
Impression / Plan
-
PCP: Dr. Eason
Primary Boom Stick Worker: Dr. Sutton
Impression:
Admitted with shock, anemia and possible CHF 03/11/25
Hemorrhagic shock
Heme positive anemia
s/p 2 units PRBCs 03/11/25
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
Severe since 2018
s/p TAVR work-up with MPG 27 at time of cath and not recommended TAVR 01/2023
RHC/LHC 03/15/2025 MPG 28 mmHg, stable CAD
Possible acute on chronic HFrEF
ICM EF 31%, echo 03/12/2025
History of reduced ejection fraction heart failure with recovered EF
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
CAD status post CABGx4 in setting of [place] in 2001
carotid disease s/p left CEA in 2012
s/p Medtronic single chamber ICD 2017
Persistent Afib
Chronic Eliquis OAC
DM 2
Gout
Smoker, ongoing tobacco use
Echo 08/23/2019: EF 30-35%, global hypokinesis with inferolateral, inferior and basal septal akinesis, mild MR, sev pressure 47/28 mmHg
ECHO 12/03/22: EF 50%, mild LVH, stage III diastolic dysfunction, mild MR, severe with peak/mean gradients 54/28 mmHg, KAELYN 0.8 cm�, trace AR, mild TR, PAP 64 mmHg, mild dilation of aorta measuring 4.0 cm
Echo 10/09/2024: EF 35 to 40%, moderate eccentric MR, severe peak/mean 60/34 mmHg and KAELYN 0.8 cm sq, mild aortic insufficiency, moderate TR with PAP 64 mmHg
Echo 03/12/2025: EF 31%, global hypokinesis, moderate MR, severe peak/mean 41/22 mmHg and KAELYN 0.7 cm sq, mild aortic regurgitation, moderate to severe TR with PAP 72 mmHg
Right heart cath/left heart cath 03/15/2025: RA 14, PA 67/28, PCWP 24, LVEDP 18, CO/CI 5.4/3.0, aortic valve with mean pressure gradient 28 mmHg, KAELYN 0.95 cm�.
LAD 100% occluded midportion, NAVAS to LAD versus diagonal is patent to either mid LAD or diagonal branch with anterograde and retrograde filling well-developed septal collaterals from RCA noted. Ramus occluded at origin distal fills via patent free
radial to ramus graft. Circumflex 100% occluded at origin, RCA occluded with patent SVG to PDA. Graft angiography: NAVAS as above, free radial to ramus widely patent, SVG to OM1 100% occluded, SVG to PDA 50 to 55% stenosis in the mid
Plan:
-79-year-old male with severe , chronic systolic heart failure, multiple GI bleeds felt due to AVMs, chronic kidney disease 3/4, CAD status post CABG x 4 in setting of [place] in 2001, ICD, carotid disease status post carotid enterectomy, permanent
A-fib on chronic Eliquis, diabetes ongoing tobacco abuse. Presented with hemoglobin 6.7 and 2 syncopal episodes.
Previous evaluation for TAVR did not qualify for candidacy as gradient 27 mmHg. Undergoing repeat TAVR evaluation at present with right and left heart cath yesterday, mean pressure gradient now 28 mmHg on cath. Risks include renal insufficiency,
history of GI bleed
-Patient with known persistent Afib and now with recurrent GIB - Eliquis 5 mg BID (Cre 2.4, wt 68 kg, age 79) is on hold, last dose 03/11/25 AM. No h/o thromboembolic event.
-GI notes reviewed , patient with multiple recently bleeding angiectasia's in the stomach that were injected and then treated with monopolar probe, -Had EGD 03/13/2025 with multiple gastric AVMs with high risk stigmata, treated with epi and APC. he
could have more AVMs in the distal small bowel or colon.
-Hgb 7.9 on 03/14/2025 Patient given 1 unit PRBC 03/14/2025 and was transfused earlier this admission as well.
-Eliquis held in anticipation of left heart cath on 03/15/2025 Hemoglobin today 9.2, stable.
-Patient thought to be high risk for rebleeding.
-CHA2DS -Vasc 5 (age,HF, PAD, DM)
-Two falls just prior to admission that were not clearly syncope and may in fact have been related to a combination of events including his severe and his anemia. ICD programming changes -Medtronic single chamber ICD reprogrammed to VVI 50 on
03/13/25. Eventually consider upgrade to DC ICD or even NUTRITIONAL SERVICES DIRECTOR-D to help with synchrony.
-Patient interested in TAVR evaluation. Patient had previous TAVR evaluation in 2022 and MPG was 27 mmHg at that time. Patient had echo 10/09/2024 with EF 35 to 40% his mean gradient was 34 mmHg and repeat echo this admission with EF 31% the mean
gradient is 22 mmHg. Left heart cath 03/16/25 MPG 28 mmHg. To be discussed by TAVR team in outpt setting.
-Hurdles to TAVR evaluation include anemia, GI bleeds, JAY on CKD 4 and general frailty. Given JAY, TAVR eval with cardiac cath and CT that will likely be split into 2 phases due to JAY with CT being done in outpt setting
-proBNP 3620. Remains on oxygen at 2 L NC which has been stable.
-Outpatient doses of Lasix 120 mg BID and metolazone 2.5 mg BID are on hold due to JAY. Spironolactone and Coreg also on hold.
- Wt since admission in stable range, admit wt 152 lbs (per bed scale, wt was 158 earlier in day on stretcher scale), wt today 152lbs. Of note, overall weight is down almost 20 pounds from admission 09/2024.
-Lungs rhonchorous on exam and he remains on oxygen, consider resuming lower dose diuretic
-Remains on midodrine for BP support, BPs 101-115/50s to 60s
HPI: Patient came to the ER yesterday with generalized weakness and was admitted with acute on chronic anemia and concern for recent falls, cardiology is now consulted for severe . Patient was admitted to the hospital 09/11/2024 until 09/15/2024
with GIB related to a single nonbleeding angiectasia in the stomach that was treated with argon plasma coagulation and clips were placed. Prior to that admission patient had had a workup for his known severe back in 2022 and his mean gradient at
time of cath was only 27 and so TAVR was not recommended at that time. Following his admission for GIB there was renewed interest in TAVR evaluation, but patient felt somewhat disheartened from the previous workup and additional workup has not
since been pursued. Patient reports 2 episodes in the last 2 weeks of standing up from the bathroom and while walking in the hallway feeling weak and then falling, possible syncope although he is a poor historian. During one of the falls he landed
on his left side and on CXR and CT chest/ABD imaging on admission he was found to have left sided rib fractures. On imaging there is no evidence of pleural effusion or acute HF, but there is evidence of fibrosis and he is a known smoker. Patient
found to be anemic with Hgb as low as 6.7 on admission. Patient given 2 units PRBCs and Hgb is now stable at 8.1. During his last GIB admission he had upper endoscopy as noted, but colonoscopy preparation was poor and there was not an attempt to
retry as an outpatient. Patient also with known CKD 4 and Cre on admission as high as 2.6 with baseline Cre closer to 2.0. Patient denies any chest pain or SOB. Patient also with history of persistent A-fib with A-fib on ECG as far back as
September. Monitoring through his single-chamber ICD is difficult due to it being a single-chamber device. Patient is chronically on Eliquis 5 mg BID which is now on hold with GIB.
Progress Note - Boom Stick Worker
Subjective
Date of Service: March 16, 2025
Left heart cath yesterday showing stable CAD and moderate to severe with mean pressure gradient 28 mmHg
- Patient remains off diuretics. Initial JAY on CKD thought possible due to volume depletion. He remains on midodrine
-Creatinine improved overall over course of admission, was 2.6 on admit, down to level of 1.9, today 2.0.
Objective
Labs:
03/16/25 02:44
03/16/25 02:44
Labs
Hgb 9.2 g/dL (13.0-18.0) L 03/16/25 02:44
Hct 27.0 % (39.0-52.0) L 03/16/25 02:44
Plt Count 139 10^3/uL (130-400) 03/16/25 02:44
PT 16.8 Sec (11.4-14.6) H 03/13/25 03:25
INR 1.33 03/13/25 03:25
APTT 38.3 Sec (23.4-35.0) H 03/11/25 13:34
Sodium 132 mmol/L (135-145) L 03/16/25 02:44
Potassium 3.6 mmol/L (3.5-5.1) 03/16/25 02:44
BUN 98 mg/dl (9-20) H 03/16/25 02:44
Creatinine 2.0 mg/dL (0.7-1.3) H 03/16/25 02:44
Glucose 162 mg/dl (70-99) H 03/16/25 02:44
Vital Signs and I&O:
Vital Signs
Temp Pulse Resp BP Pulse Ox
97.6 F 56 18 104/81 100
03/16/25 07:10 03/16/25 09:00 03/16/25 07:46 03/16/25 07:07 03/16/25 07:10
Vital Signs
Temp Pulse Resp BP Pulse Ox
97.6 F 56 18 104/81 100
03/16/25 07:10 03/16/25 09:00 03/16/25 07:46 03/16/25 07:07 03/16/25 07:10
Intake & Output
03/14/25 03/15/25 03/16/25 03/17/25
06:59 06:59 06:59 06:59
Intake Total 230.0 / 230.0 1820 / 1820
Output Total 1475 / 1475 1125 / 1125 600 / 600
Balance -1245.0 / -1245.0 695 / 695 -600 / -600
Physical Exam
Physical Exam
GEN: No distress, awake, Ox3
HEENT: supple, anicteric, mmm
LUNGS: Rhonchorous breath sounds
CV: Reg, S1/S2, 2 out of 6 systolic ejection murmur
ABD: soft, BS+, NT/ND
EXT: Trace lower extremity edema
NEURO: Gross non-focal
SKIN: No rash
[2025-03-16 11:57] LABS: Glucose - Point of Care 195 mg/dl (70-99)
[2025-03-16] MEDS: AZOPT 1% OPHTHALMIC SUSPENSION 1 DROP BOTH EYES ×2 (12:29→22:08)
[2025-03-16] MEDS: LASIX 40 MG PO ×2 (12:29→16:49)
[2025-03-16] MEDS: KCL 20 MEQ PO (12:29)
--- NOTE | 2025-03-16 12:29 | CM ---
Reviewed chart. Mr. An was transferred nto IVU. Met with and Mrs. An to review discharge plans. We reviewed the medical team recommendation of SNF/Rehab. Both and Mrs. An declined SNF Rehab. at this time. We also reviewed [facility]
Services with the R.N. and therapists coming to his home. They are agreeable to having [facility] Services at home. Telephone call to [facility] to make the referral. Sent the referral to [facility]. Prior to admission they
resides in a two story home with three steps to enter. He has a first floor set-up with bedroom and full bathroom on the first floor. The son resides on the second floor. Prior to admission he independent with adls' and uses a quad cane to
ambulate. He has a single point cane and a walker at home. He has a 100 percent disability from the V.A. He gets most of his medications from the V.a. and some from the [facility]. Medical work-up in progress. The discharge plan is to return
home with his spouse and [facility] when medically stable.
--- NOTE | 2025-03-16 12:56 | W.PN.NEPH.PH ---
Today's Communication / Plan
-
ok fo rlasi x
follow labs
Assessment/Plan
-
IMP:
Shock hemorrhagic versus hypovolemic.
Acute blood loss anemia -due to GI bleed
Acute GI bleed , known h/o AVMS
JAY on CKD 3bbaseline cr at 2-follow[address] Dr Yates
Hypokalemia
Acute traumatic left-sided rib fractures -due to fall
Paroxysmal atrial fibrillation
Chronic hyponatremia
COPD without exacerbation
Chronic heart failure reduced EF -stable
CAD/CABG x 4 (2001)
Medtronic single-chamber ICD, 2017
Carotid disease -s/p left CEA 2012.
Essential hypertension
DM 2
Severe aortic stenosis -previously declined TAVR workup.
Hyperlipidemia
Gout
Plan:
stable renal function
s/p LHC on 03/15, non obst cad, PCWP of 24, mod to severe
ok to resume diuretics
Bp stable on midodrine
follow hgb-stable
labs in am
d/w pt and family
d/w nursing
-
-
Date of Service: March 16, 2025
CC / HPI / ROS
-
Chief Complaint:
JAY
History of Present Illness:
Hgb stable at 9.2 after transfusion 03/14
JAY/Cr stable 2
Na better at 132 stable
BP stable
Review of Systems:
no CP
mild SOB and edema seem chronic
Labs
-
Labs:
WBC 9.2 10^3/uL (4.8-10.8) 03/16/25 02:44
RBC 2.71 10^6/uL (4.70-6.10) L 03/16/25 02:44
Hgb 9.2 g/dL (13.0-18.0) L 03/16/25 02:44
Hct 27.0 % (39.0-52.0) L 03/16/25 02:44
Plt Count 139 10^3/uL (130-400) 03/16/25 02:44
Sodium 132 mmol/L (135-145) L 03/16/25 02:44
Potassium 3.6 mmol/L (3.5-5.1) 03/16/25 02:44
Chloride 100 mmol/L (98-107) 03/16/25 02:44
Carbon Dioxide 25 mmol/L (22-30) 03/16/25 02:44
BUN 98 mg/dl (9-20) H 03/16/25 02:44
Creatinine 2.0 mg/dL (0.7-1.3) H 03/16/25 02:44
eGFR 33.32 03/16/25 02:44
Glucose 162 mg/dl (70-99) H 03/16/25 02:44
Calcium 8.4 mg/dl (8.4-10.2) 03/16/25 02:44
Albumin 2.9 g/dl (3.5-5.0) L 03/13/25 03:25
Physical Exam
-
Vital Signs:
Vital Signs
Temp Pulse Resp BP Pulse Ox
97.4 F 81 16 116/82 94
03/16/25 11:58 03/16/25 12:29 03/16/25 11:58 03/16/25 12:29 03/16/25 11:58
Cardiovascular:: Regular rate and rhythm
Respiratory:: Bilateral: CTA (decreased)
Lung Excursion:: Normal
Abdomen:: Nontender and Soft
Bowel Sounds:: Normal
Extremity Edema:: +1: Bilateral: (chronic)
Olea Catheter: No
--- NOTE | 2025-03-16 16:09 | W.PN.UPDATE ---
Update Note
Progress Note Update
-spoke with in room with pt earlier today (~12 noon) about plan going forward. She had already reviewed cath results with Dr Iyer over the phone. Aortic stenosis with possibility of TAVR to be discussed with structural heart team in outpt
setting. I sent a TT Angeline Stewart, structural team ANASTACIO as TONY.
Discussed that we would like to start reinitiating home meds prior to discharge, with close monitoring of renal fxn prior to discharging him. Restarting Lasix today at lower dose, will uptitrate if renal function remains stable and BP acceptable.
If able, will also restart Coreg and Spironolactone. May be able to hold off on Metolazone. Pt also remains off Eliquis. Hgb stable since EGD 03/13/2025. Consider restarting Eliquis if Hgb stable tomororw.
[2025-03-16 17:14] LABS: Glucose - Point of Care 209 mg/dl (70-99)
[2025-03-16] MEDS: NOVOLOG FLEXPEN-LOW RESISTANCE 2 UNITS SC (17:14)
[2025-03-16] MEDS: DUONEB 3 ML INH (17:49)
[2025-03-16 18:26] LABS: Glucose - Point of Care 197 mg/dl (70-99)
[2025-03-16] MEDS: PROTONIX 40 MG PO (20:29)
--- NOTE | 2025-03-16 21:47 | PTCARENOTE ---
Received pt at change of shift resting in bed. A-fib rhythm with BBBC and V-pacing. HR in the 70's. pt denies any CP or SOB. Right femoral site C.D.I. Slightly ecchymotic. No bleeding or hematoma noted at this time. pt with frequency and urgency,
urinating small amounts at a time. Bladder scanned with result of 175 cc. pt requested condom catheter. Applied to pt. Fall risk precautions in place. Educated pt to call for assistance ambulating. pt calls appropriately. Call moreno within reach.
[2025-03-16 21:57] LABS: Glucose - Point of Care 215 mg/dl (70-99)
[2025-03-16] MEDS: MELATONIN 5 MG PO (22:07)
[2025-03-16] MEDS: LANTUS 0.07 UNITS SC (22:08)
--- NOTE | 2025-03-16 23:09 | PTCARENOTE ---
VS were not captured during dayshift, since 0900, I captured during my shift.
[2025-03-17 04:26] VITALS: BP 117/63
[2025-03-17 04:31] VITALS: BMI 24.5
[2025-03-17 05:42] LABS: Hematocrit 27.8 % (39.0-52.0); Hemoglobin 9.4 g/dL (13.0-18.0); Mean Corp Hgb Conc. 33.8 g/dL (33.0-37.0); Mean Corpuscular Volume 100.7 fL (80.0-94.0); Nucleated Red Blood Cells % 0.2 % (-); Platelet Count 157 10^3/uL (130-400); Red Cell Dist. Width 22.3 % (11.5-14.5)
[2025-03-17 05:57] LABS: Blood Urea Nitrogen 92 mg/dl (9-20); Calcium 8.6 mg/dl (8.4-10.2); Carbon Dioxide 25 mmol/L (22-30); Chloride 100 mmol/L (98-107); Estimated Creatinine Clearance 27 ml/min; Glucose 149 mg/dl (70-99); Potassium 3.6 mmol/L (3.5-5.1); Sodium 131 mmol/L (135-145); eGFR 33.32
[2025-03-17 07:01] LABS: Glucose - Point of Care 203 mg/dl (70-99)
[2025-03-17] MEDS: NOVOLOG FLEXPEN-LOW RESISTANCE 2 UNITS SC (07:01)
[2025-03-17 07:34] VITALS: BP 99/50
[2025-03-17 07:38] LABS: Glucose - Point of Care 188 mg/dl (70-99)
[2025-03-17] MEDS: LIPITOR 80 MG PO (07:51)
[2025-03-17] MEDS: PROTONIX 40 MG PO (07:52)
[2025-03-17] MEDS: LASIX 40 MG PO (07:52)
[2025-03-17] MEDS: VITAMIN B-12 1000 MCG PO (07:52)
--- NOTE | 2025-03-17 08:11 | W.PN.HOSP.TC ---
Addendum entered and electronically signed by Refugio Eduardo DO 03/17/25 09:31:
Dr. John from cardiology okay with discharge. Outpatient follow-up.
Original Note:
Today's Communication/Plan
-
Discharge if okay with cardiology
Assessment / Plan
Assessment / Plan
Gen-AAOx3, NAD
HEENT-NC, AT, anicteric, clear oral mm
Neck-supple
CV-reg, no M, +S1/S2
Lungs-bilateral rhonchi
Abd-soft, NT, ND
Ext-no edema
Musculoskeletal-no cyanosis, clubbing
Skin-warm and dry, bilateral lower extremity erythema with minimal warmth, no tenderness
Neuro-grossly non-focal
Psych-calm, cooperative
Shock -shock resolved. Currently on midodrine 5 mg 3 times daily. Etiology of persistent hypotension unclear, but I suspect cardiogenic shock is the driving factor given valvular heart disease as well as cardiomyopathy with LVEF 31%, global
hypokinesis.
Syncope 1 week prior to admission as well as presentation with near syncope concerning for worsening aortic stenosis, valvular heart disease, cardiomyopathy.
Acute blood loss anemia -due to upper GI bleed. Hemoglobin improved after 3 units transfusion, 9.4 today, admission hemoglobin 6.7.
Suspect acute blood loss anemia due to GI bleed in the setting of anticoagulation with Eliquis.
Administered 3600 units of Kcentra on March 11.
Anemia labs not consistent with iron deficiency. Previous labs in October showed normal B12 and folic acid levels.
CT chest and abdomen on presentation without retroperitoneal bleed or other pathology.
Acute GI bleed -suspect due to gastric AVMs noted on endoscopy 03/13. AVMs likely related to severe aortic stenosis. GI bleed exacerbated by anticoagulation with Eliquis. Currently on Protonix twice daily.
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 Creatinine stable at 2.0. Renal/bladder ultrasound without hydronephrosis. Mildly echogenic kidneys noted.
Bilateral lower extremity venous stasis dermatitis -Bryce compression wraps ordered.
Hypokalemia -improved. Continue daily potassium chloride.
Acute traumatic left-sided rib fractures -due to fall. Fractures of 7, 9, 10, 11 ribs on the left.
Paroxysmal atrial fibrillation -on chronic Eliquis. Hold Eliquis for acute GI bleed, acute blood loss anemia. Carvedilol on hold for hypotension, bradycardia. Cardiology following. Does have ICD/defibrillator. TSH normal.
I spoke with GI attending (Dr. Baptiste) and he recommends waiting 5 days after EGD before resuming Eliquis, soonest would be March 18. Discussed with patient.
Chronic hyponatremia -sodium improved.
COPD without exacerbation
Chronic heart failure reduced EF -stable. On chronic furosemide, metolazone, spironolactone at home, furosemide now resumed.
Echocardiogram done 03/12 shows LVEF 31%, global hypokinesis, indeterminate diastolic function, moderate MR, severe , moderate to severe TR.
CAD/CABG x 4 (2001) - stable.
Medtronic single-chamber ICD, 2018
Carotid disease -s/p left CEA 2012.
Essential hypertension -currently hypotensive.
DM 2 with hyperglycemia -glucose 133 this morning, 237 last night. He uses Lantus 24 units daily at home, NovoLog 6 units AC.
In the hospital he is on Lantus 7 units at bedtime, low resistance NovoLog scale. Hemoglobin A1c 6.5%, may not be reliable due to chronic anemia.
Severe aortic stenosis -cardiology following and considering evaluation for TAVR. Cardiac catheterization performed 03/15, showing moderate to severe .
Hyperlipidemia -atorvastatin.
Gout -allopurinol.
Tobacco dependence -cessation advised. Patient plans to continue to smoke but claims that he will cut down. He states it is very difficult for him to quit completely. Recommend follow-up with PCP for assistance.
Full code
Dispo -medically stable for discharge if cleared by cardiology. Patient and prefer to go home with VN. Not interested in SNF.
Anticipated Discharge: Today
Subjective/Interval History
-
Date of Service: March 17, 2025
Patient seen and examined. No complaints.
Objective Data
-
Labs:
Laboratory Results
03/17/25
04:45
WBC 9.1
Hgb 9.4 L
Hct 27.8 L
Plt Count 157
Sodium 131 L
Potassium 3.6
Chloride 100
Carbon Dioxide 25
BUN 92 H
Creatinine 2.0 H
Glucose 149 H
Calcium 8.6
Vital Signs:
Vital Signs
Temp Pulse Resp BP Pulse Ox
98.3 F 55 18 99/50 92
03/17/25 07:30 03/17/25 07:34 03/17/25 07:30 03/17/25 07:51 03/17/25 07:34
I&O
03/16/25 03/17/25 03/18/25
06:59 06:59 06:59
Intake Total 480 / 480 240 / 240
Output Total 600 / 600 1360 / 1360 50 / 50
Balance -600 / -600 -880 / -880 190 / 190
Review of Systems
-
History Source: Patient
All other systems: Reviewed and negative
[2025-03-17] MEDS: PULMICORT 0.5 MG INH (08:36)
[2025-03-17] MEDS: KCL 20 MEQ PO (08:47)
--- NOTE | 2025-03-17 09:04 | W.PN.CARDCBS ---
Today's Communication / Plan
-
Okay for discharge from cardiac standpoint
See below for recommendations
Impression / Plan
-
PCP: Dr. Eason
Primary Convertible Top Installer: Dr. Sutton
Impression:
Admitted with shock, anemia and possible CHF 03/11/25
Hemorrhagic shock
Heme positive anemia
s/p 2 units PRBCs 03/11/25
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
Severe since 2018
s/p TAVR work-up with MPG 27 at time of cath and not recommended TAVR 01/2023
RHC/LHC 03/15/2025 MPG 28 mmHg, stable CAD
Possible acute on chronic HFrEF
ICM EF 31%, echo 03/12/2025
History of reduced ejection fraction heart failure with recovered EF
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
CAD status post CABGx4 in setting of [place] in 2001
carotid disease s/p left CEA in 2012
s/p Medtronic single chamber ICD 2017
Persistent Afib
Chronic Eliquis OAC
DM 2
Gout
Smoker, ongoing tobacco use
Echo 08/23/2019: EF 30-35%, global hypokinesis with inferolateral, inferior and basal septal akinesis, mild MR, sev pressure 47/28 mmHg
ECHO 12/03/22: EF 50%, mild LVH, stage III diastolic dysfunction, mild MR, severe with peak/mean gradients 54/28 mmHg, KAELYN 0.8 cm�, trace AR, mild TR, PAP 64 mmHg, mild dilation of aorta measuring 4.0 cm
Echo 10/09/2024: EF 35 to 40%, moderate eccentric MR, severe peak/mean 60/34 mmHg and KAELYN 0.8 cm sq, mild aortic insufficiency, moderate TR with PAP 64 mmHg
Echo 03/12/2025: EF 31%, global hypokinesis, moderate MR, severe peak/mean 41/22 mmHg and KAELYN 0.7 cm sq, mild aortic regurgitation, moderate to severe TR with PAP 72 mmHg
Right heart cath/left heart cath 03/15/2025: RA 14, PA 67/28, PCWP 24, LVEDP 18, CO/CI 5.4/3.0, aortic valve with mean pressure gradient 28 mmHg, KAELYN 0.95 cm�.
LAD 100% occluded midportion, NAVAS to LAD versus diagonal is patent to either mid LAD or diagonal branch with anterograde and retrograde filling well-developed septal collaterals from RCA noted. Ramus occluded at origin distal fills via patent free
radial to ramus graft. Circumflex 100% occluded at origin, RCA occluded with patent SVG to PDA. Graft angiography: NAVAS as above, free radial to ramus widely patent, SVG to OM1 100% occluded, SVG to PDA 50 to 55% stenosis in the mid
Plan:
From the standpoint of heart failure and anemia, he looks improved.
No evidence of volume overload on exam at present. His weight is down 20 pounds compared to September.
Creatinine remains stable at 2. He is mildly hyponatremic. Still with azotemia though this is improving.
Risk of rebleeding is high on anticoagulation, but risk of stroke a major concern. He will turn 80 in 8 months so I have taken the liberty of reducing his apixaban 8 months prematurely in the hopes of reducing bleeding risk.
Blood pressure still low, on midodrine.
Ultimate decision regarding TAVR will be up to the structural heart team.
From my standpoint okay for discharge.
Recommended cardiac medications at discharge:
Furosemide 40 mg twice daily
Apixaban 2.5 mg twice daily (reduced dose) - start Wednesday
Atorvastatin 80 mg daily
Midodrine 5 mg 3 times daily
Discontinue metolazone, spironolactone, carvedilol
Please check CBC and BMP in 1 week
We will arrange for cardiac follow-up
HPI: Patient came to the ER yesterday with generalized weakness and was admitted with acute on chronic anemia and concern for recent falls, cardiology is now consulted for severe . Patient was admitted to the hospital 09/11/2024 until 09/15/2024
with GIB related to a single nonbleeding angiectasia in the stomach that was treated with argon plasma coagulation and clips were placed. Prior to that admission patient had had a workup for his known severe back in 2022 and his mean gradient at
time of cath was only 27 and so TAVR was not recommended at that time. Following his admission for GIB there was renewed interest in TAVR evaluation, but patient felt somewhat disheartened from the previous workup and additional workup has not
since been pursued. Patient reports 2 episodes in the last 2 weeks of standing up from the bathroom and while walking in the hallway feeling weak and then falling, possible syncope although he is a poor historian. During one of the falls he landed
on his left side and on CXR and CT chest/ABD imaging on admission he was found to have left sided rib fractures. On imaging there is no evidence of pleural effusion or acute HF, but there is evidence of fibrosis and he is a known smoker. Patient
found to be anemic with Hgb as low as 6.7 on admission. Patient given 2 units PRBCs and Hgb is now stable at 8.1. During his last GIB admission he had upper endoscopy as noted, but colonoscopy preparation was poor and there was not an attempt to
retry as an outpatient. Patient also with known CKD 4 and Cre on admission as high as 2.6 with baseline Cre closer to 2.0. Patient denies any chest pain or SOB. Patient also with history of persistent A-fib with A-fib on ECG as far back as
September. Monitoring through his single-chamber ICD is difficult due to it being a single-chamber device. Patient is chronically on Eliquis 5 mg BID which is now on hold with GIB.
Progress Note - Convertible Top Installer
Subjective
Date of Service: March 17, 2025:
79-year-old admitted March 11 with weakness, anemia hemoglobin 6.7. History of aortic stenosis, previously evaluated for TAVR and felt not to require, status post cath March 15
PMH: GI bleeding related to angioectasia, CKD stage IV, has ICD in place, acute on chronic HFrEF, ischemic cardiomyopathy, EF 31%, CABG times 12/2001, left CEA, Medtronic single-chamber ICD 2018, permanent A-fib, diabetes, gout, ongoing smoker
Current meds: DuoNebs, Pulmicort, insulin, midodrine 5 mg 3 times daily, atorvastatin 80 mg a day, NHAN, B12, melatonin, pantoprazole 40 twice daily, furosemide 40 twice daily, potassium 20 mEq daily
99/50, pulse 78, weight is 68.7 kg which is down 0.4 kg he looks better, lungs are clear, irregular rate and rhythm, AAS murmur, JVD okay, only mild edema
Hemoglobin is 9.4, had been 9.2, BUN/creatinine are 92 and 2.0, creatinine had been 98, was as high as 147
Objective
Labs:
03/17/25 04:45
03/17/25 04:45
Labs
Hgb 9.4 g/dL (13.0-18.0) L 03/17/25 04:45
Hct 27.8 % (39.0-52.0) L 03/17/25 04:45
Plt Count 157 10^3/uL (130-400) 03/17/25 04:45
PT 16.8 Sec (11.4-14.6) H 03/13/25 03:25
INR 1.33 03/13/25 03:25
APTT 38.3 Sec (23.4-35.0) H 03/11/25 13:34
Sodium 131 mmol/L (135-145) L 03/17/25 04:45
Potassium 3.6 mmol/L (3.5-5.1) 03/17/25 04:45
BUN 92 mg/dl (9-20) H 03/17/25 04:45
Creatinine 2.0 mg/dL (0.7-1.3) H 03/17/25 04:45
Glucose 149 mg/dl (70-99) H 03/17/25 04:45
Vital Signs and I&O:
Vital Signs
Temp Pulse Resp BP Pulse Ox
36.8 C 78 16 99/50 95
03/17/25 07:30 03/17/25 08:37 03/17/25 08:37 03/17/25 07:51 03/17/25 08:37
Vital Signs
Temp Pulse Resp BP Pulse Ox
36.8 C 78 16 99/50 95
03/17/25 07:30 03/17/25 08:37 03/17/25 08:37 03/17/25 07:51 03/17/25 08:37
Intake & Output
03/15/25 03/16/25 03/17/25 03/18/25
07:59 07:59 07:59 07:59
Intake Total 1820 / 1820 720 / 720
Output Total 1125 / 1125 600 / 600 1410 / 1410
Balance 695 / 695 -600 / -600 -690 / -690
Physical Exam
Physical Exam
See above
--- NOTE | 2025-03-17 09:36 | W.DS.TRANS ---
DC Summary - Policy Change Clerk
-
Discharge Instructions:
Discharge Diagnosis/Procedures Acute blood loss anemia, acute GI bleed, acute
kidney injury, left-sided rib fractures, aortic
stenosis, upper endoscopy, cardiac
catheterization
Diet Low Cholesterol,Low Fat,2 Gram Sodium,Diabetic,
Carb Controlled
Activity As tolerated,With assistance
Driving Restrictions No driving
Bathing Restrictions None
Blood Work CBC, BMP next week with your primary care doctor
Instructions:
Stand-Alone Forms: DC Instructions- Cath/EP Lab
Changes to Home Medications: No
Discharge Medications:
DC Medications w/original date entered in [employer]
allopurinol 100 mg tablet 150 mg PO BID Gout 08/04/16
cyanocobalamin (vitamin B-12) 1,000 mcg tablet 1,000 mcg PO DAILY Supplement 10/04/19
acetaminophen 500 mg tablet 1,000 mg PO HS Pain 01/01/23
atorvastatin 80 mg tablet 80 mg PO DAILY High cholesterol 01/01/23
brinzolamide 1 % eye drops,suspension 1 drp BOTH EYES BID@1200,2200 Eye Condition 01/01/23
apixaban 5 mg tablet 5 mg PO BID Blood Clot Prevention/Tx 09/11/24
Held on 03/16/25. Instructions: Resume on 03/18/25.
Centrum Adult 50 Plus 1 tab PO DAILY Supplement 09/12/24
budesonide 0.5 mg/2 mL suspension for nebulization 0.5 mg (2 mL) inhalation R BID #60 mL 03/16/25
furosemide 40 mg tablet 40 mg PO BID AT 0800,1600 #60 tabs 03/16/25
insulin aspart U-100 100 unit/mL (3 mL) subcutaneous pen (Novolog FlexPen U-100 Insulin aspart) 3 unit (0.03 mL) SC AC #15 mL 03/16/25
midodrine 5 mg tablet 5 mg PO TID@0800,1300,1800 #90 tabs 03/16/25
pantoprazole 40 mg tablet,delayed release 40 mg PO BID #60 tabs 03/16/25
polyethylene glycol 3350 17 gram oral powder packet 17 g PO DAILYPRN PRN constipation #0 ea 03/16/25
insulin glargine 100 unit/mL (3 mL) subcutaneous pen (Lantus Solostar U-100 Insulin) 10 unit (0.1 mL) SC QPM #3 mL 03/17/25
potassium chloride 20 mEq tablet,extended release(part/cryst) 20 meq PO DAILY #30 tabs 03/17/25
Home Medication Changes
Pending Results: No
--- NOTE | 2025-03-17 10:03 | PTCARENOTE ---
Pt's R femoral dsg removed, site clean and dry, no drainage, very little ecchymosis.
--- NOTE | 2025-03-17 10:29 | W.PN.NEPH.PH ---
Today's Communication / Plan
-
ok for d/c
Assessment/Plan
-
IMP:
Shock hemorrhagic versus hypovolemic.
Acute blood loss anemia -due to GI bleed
Acute GI bleed , known h/o AVMS
JAY on CKD 3bbaseline cr at 2-follows Dr Yates
Hypokalemia
Acute traumatic left-sided rib fractures -due to fall
Paroxysmal atrial fibrillation
Chronic hyponatremia
COPD without exacerbation
Chronic heart failure reduced EF -stable
CAD/CABG x 4 (2001)
Medtronic single-chamber ICD, 2017
Carotid disease -s/p left CEA 2012.
Essential hypertension
DM 2
Severe aortic stenosis -previously declined TAVR workup.
Hyperlipidemia
Gout
Plan:
stable renal function
s/p LHC on 03/15, non obst cad, PCWP of 24, mod to severe
diuretics per cards
Bp stable on midodrine
follow hgb-stable
labs next week after d/c today
d/w pt and family
d/w nursing
d/w Dr Yates this month as scheduled
-
-
Date of Service: March 17, 2025
CC / HPI / ROS
-
Chief Complaint:
JAY
History of Present Illness:
Hgb stable at 9.4 after transfusion 03/14
JAY/Cr stable 2
Na better at 131 stable
BP stable
Review of Systems:
no CP
no SOB at rest and edema seem chronic
Labs
-
Labs:
WBC 9.1 10^3/uL (4.8-10.8) 03/17/25 04:45
RBC 2.76 10^6/uL (4.70-6.10) L 03/17/25 04:45
Hgb 9.4 g/dL (13.0-18.0) L 03/17/25 04:45
Hct 27.8 % (39.0-52.0) L 03/17/25 04:45
Plt Count 157 10^3/uL (130-400) 03/17/25 04:45
Sodium 131 mmol/L (135-145) L 03/17/25 04:45
Potassium 3.6 mmol/L (3.5-5.1) 03/17/25 04:45
Chloride 100 mmol/L (98-107) 03/17/25 04:45
Carbon Dioxide 25 mmol/L (22-30) 03/17/25 04:45
BUN 92 mg/dl (9-20) H 03/17/25 04:45
Creatinine 2.0 mg/dL (0.7-1.3) H 03/17/25 04:45
eGFR 33.32 03/17/25 04:45
Glucose 149 mg/dl (70-99) H 03/17/25 04:45
Calcium 8.6 mg/dl (8.4-10.2) 03/17/25 04:45
Mso-T-Qsbgoetdvck Pept 8410 pg/ml 03/16/25 02:44
Albumin 2.9 g/dl (3.5-5.0) L 03/13/25 03:25
Physical Exam
-
Vital Signs:
Vital Signs
Temp Pulse Resp BP Pulse Ox
98.2 F 84 18 116/69 95
03/17/25 11:18 03/17/25 11:18 03/17/25 11:18 03/17/25 11:21 03/17/25 11:20
Cardiovascular:: Regular rate and rhythm
Respiratory:: Bilateral: CTA (decreased)
Lung Excursion:: Normal
Abdomen:: Nontender and Soft
Bowel Sounds:: Normal
Extremity Edema:: +1: Bilateral: (chronic)
Olea Catheter: No
--- NOTE | 2025-03-17 11:06 | PTCARENOTE ---
Pt's discharge ordered. Pt's notified and came to pick him up. Discharge instructions reviewed with Pt and his , they expressed understanding.
[2025-03-17 11:21] VITALS: BP 116/69
== END 2025-03-17 11:57 | disposition home health service (06) | DRG 286 ==
LOC: IVU 16:01
PROVIDERS: Emergency Medicine; Internal Medicine Interventional Cardiology; Nurse Practitioner Adult Health; Nurse Practitioner Family; Physician Assistant; Specialist; ADMITTING PHYSICIAN Hospitalist; ATTENDING PHYSICIAN Hospitalist; CONSULT PHYSICIAN Internal Medicine; CONSULT PHYSICIAN Internal Medicine Cardiovascular Disease; EMERGENCY PHYSICIAN Emergency Medicine; FAMILY PHYSICIAN Family Medicine; OTHER PHYSICIAN Internal Medicine Critical Care Medicine
PROC: 30233N1 Transfusion of Nonautologous Red Blood Cells into Peripheral Vein, Percutaneous Approach (ICD-10-PCS; 2025-03-11)
PROC: 30283B1 Transfusion of Nonautologous 4-Factor Prothrombin Complex Concentrate into Vein, Percutaneous Approach (ICD-10-PCS; 2025-03-11)
PROC: 0W3P8ZZ Control Bleeding in Gastrointestinal Tract, Via Natural or Artificial Opening Endoscopic (ICD-10-PCS; 2025-03-13)
PROC: B2181ZZ Fluoroscopy of Left Internal Mammary Bypass Graft using Low Osmolar Contrast (ICD-10-PCS; 2025-03-15)
PROC: B2131ZZ Fluoroscopy of Multiple Coronary Artery Bypass Grafts using Low Osmolar Contrast (ICD-10-PCS; 2025-03-15)
PROC: 4A023N8 Measurement of Cardiac Sampling and Pressure, Bilateral, Percutaneous Approach (ICD-10-PCS; 2025-03-15)
PROC: B2111ZZ Fluoroscopy of Multiple Coronary Arteries using Low Osmolar Contrast (ICD-10-PCS; 2025-03-15)
DX: I08.0 Rheumatic disorders of both mitral and aortic valves (principal); I50.23 Acute on chronic systolic (congestive) heart failure; K31.811 Angiodysplasia of stomach and duodenum with bleeding; R57.0 Cardiogenic shock; S22.42XA Multiple fractures of ribs, left side, initial encounter for closed fracture; D62 Acute posthemorrhagic anemia; N17.9 Acute kidney failure, unspecified; E87.1 Hypo-osmolality and hyponatremia; I13.0 Hypertensive heart and chronic kidney disease with heart failure and stage 1 through stage 4 chronic kidney disease, or unspecified chronic kidney disease; I48.21 Permanent atrial fibrillation; D68.32 Hemorrhagic disorder due to extrinsic circulating anticoagulants; I87.2 Venous insufficiency (chronic) (peripheral); J44.9 Chronic obstructive pulmonary disease, unspecified; I25.10 Atherosclerotic heart disease of native coronary artery without angina pectoris; E78.00 Pure hypercholesterolemia, unspecified; E11.22 Type 2 diabetes mellitus with diabetic chronic kidney disease; N40.0 Benign prostatic hyperplasia without lower urinary tract symptoms; W19.XXXA Unspecified fall, initial encounter; F17.210 Nicotine dependence, cigarettes, uncomplicated; D53.9 Nutritional anemia, unspecified; N18.32 Chronic kidney disease, stage 3b; D72.829 Elevated white blood cell count, unspecified; E11.65 Type 2 diabetes mellitus with hyperglycemia; I27.20 Pulmonary hypertension, unspecified; I25.5 Ischemic cardiomyopathy; E87.6 Hypokalemia; K22.2 Esophageal obstruction; K31.89 Other diseases of stomach and duodenum; M10.9 Gout, unspecified; R00.1 Bradycardia, unspecified; T45.515A Adverse effect of anticoagulants, initial encounter; K44.9 Diaphragmatic hernia without obstruction or gangrene; E88.09 Other disorders of plasma-protein metabolism, not elsewhere classified; Z95.1 Presence of aortocoronary bypass graft; I25.2 Old myocardial infarction; Z95.810 Presence of automatic (implantable) cardiac defibrillator; Z79.01 Long term (current) use of anticoagulants
CPT/HCPCS: 71045; 71250; 74176; 76770; 80048; 80053; 81003; 81015; 82570; 82728; 82962; 83036; 83540; 83550; 83605; 83735; 83880; 83935; 84156; 84300; 84443; 85014; 85018; 85025; 85027; 85610; 85730; 86850; 86900; 86901; 86920; 87077; 87086; 87186; 93005; 93306; 93461; 94640; 96361; 96374; 97116; 97163; 97167; 97530; 97535; 99152; 99153; 99291; C1894; J7168; P9016; Q9967

== ENCOUNTER → 2025-03-27 11:59 | Outpatient (REF) | payer MEDICARE, BC, SELFPAY ==
[2025-03-27 12:41] LABS: Hematocrit 32.2 % (39.0-52.0); Hemoglobin 10.5 g/dL (13.0-18.0); Mean Corp Hgb Conc. 32.6 g/dL (33.0-37.0); Mean Corpuscular Volume 101.6 fL (80.0-94.0); Nucleated Red Blood Cells % 0 % (-); Platelet Count 190 10^3/uL (130-400); Red Cell Dist. Width 18.9 % (11.5-14.5)
[2025-03-27 12:47] LABS: Blood Urea Nitrogen 41 mg/dl (9-20); Calcium 9.1 mg/dl (8.4-10.2); Carbon Dioxide 24 mmol/L (22-30); Chloride 104 mmol/L (98-107); Glucose 116 mg/dl (70-99); Iron 66 ug/dl (49-181); Potassium 4.0 mmol/L (3.5-5.1); Sodium 133 mmol/L (135-145); eGFR 40.50
[2025-03-27 12:55] LABS: Total Iron Binding Capacity 260 ug/dl (261-462)
[2025-03-27 13:22] LABS: Ferritin 186.0 ng/ml (17.9-464.0)
== END ==
LOC: CLAB 11:59
PROVIDERS: ATTENDING PHYSICIAN Family Medicine
DX: D62 Acute posthemorrhagic anemia (principal); I13.0 Hypertensive heart and chronic kidney disease with heart failure and stage 1 through stage 4 chronic kidney disease, or unspecified chronic kidney disease
CPT/HCPCS: 36415; 80048; 82728; 83540; 83550; 85025

== ENCOUNTER 2025-04-16 08:29 | Outpatient (RCR) | payer MEDICARE, BC, SELFPAY ==
[2025-04-16 08:35] VITALS: BP 112/61
[2025-04-16] MEDS: NSS 500 IV (08:56)
== END 2025-05-06 23:59 | disposition home or self-care (01) ==
LOC: OID 08:29
PROVIDERS: ATTENDING PHYSICIAN Nurse Practitioner; FAMILY PHYSICIAN Family Medicine
DX: D64.9 Anemia, unspecified (principal); I49.8 Other specified cardiac arrhythmias; I35.0 Nonrheumatic aortic (valve) stenosis; Z79.01 Long term (current) use of anticoagulants
CPT/HCPCS: 96360; 96361

== ENCOUNTER → 2025-04-16 08:34 | Outpatient (REF) | payer MEDICARE, BC, SELFPAY | LOC: RAD 08:34 | PROVIDERS: ATTENDING PHYSICIAN Nurse Practitioner Acute Care | DX: I35.0 Nonrheumatic aortic (valve) stenosis (principal) | CPT/HCPCS: 75572; Q9967 ==

== ENCOUNTER 2025-04-18 21:01 | Inpatient (IN) | payer MEDICARE, BC, SELFPAY ==
[2025-04-18] VITALS (7 sets, daily range): BP systolic 116–134; BP diastolic 60–74; BMI 30.1; BMI 29.6
--- NOTE | 2025-04-18 18:32 | ED.GENMED ---
History of Present Illness
General
Chief Complaint: Swelling
Source: patient and family
Exam Limitations: none
Time Seen by Provider: 04/18/25 18:09
Nursing documentation reviewed up to this point in time: agreed with
History of Present Illness
History of Present Illness:
79-year-old male sent in by Dr. Sutton cardiology for evaluation of lower extremity edema treated with metolazone and Lasix, history of anemia followed by Dr. Diaz, chronic kidney disease followed by Dr. Yates no chest pain mild shortness of breath
no fevers
Past History
Past History
ED Past Medical History: Arrthythmia (atrial fibrillation), CAD, CHF, HTN, Hypercholesterolemia, NIDDM, NV, Renal failure and Other (Carotid stenosis, gout, BPH, recurrent epistaxis)
ED Past Surgical History: Cardiac (CABG, PTCA with stent), Cholecystectomy and Other (Carotid endarterectomy)
Social History
Tobacco: Smoker
Alcohol: None
Drug: None
Personal:
Living: with family
Employment: Retired
Family History
Family History: Other (Noncontributory)
Review of Systems
Review of Systems
All Other Systems: Not applicable
Constitutional: Reports fatigue
Respiratory: Reports trouble breathing
Cardiac: Reports no symptoms
ABD/GI: Reports no symptoms
: Reports no symptoms
Musculoskeletal: Reports edema
Skin: Reports no symptoms
Neurological: Reports weakness
Hematologic/Lymphatic: Reports no symptoms
Psychiatric: Reports no symptoms
Phy Exam
Physical Exam
Physical Exam:
Physical Exam
General: no apparent distress, chronically ill 88% on room air
Neck: No jaundice
Heart: Regular
Lungs: no acute respiratory distress. Crackles at the base
Abdomen: Nontender
Neuro: alert and oriented. no focal neurological deficits
Skin: no rash
Psychiatric: well kept. interactive and cooperative
Extremities: Edema is present red venous stasis changes some warmth
Scores
Heart Failure Risk
Heart Failure Risk Score: Yes
History of Stroke or TIA: No
History of intubation for respiratory distress: No
Heart rate on ED arrival >/= 110: No
SaO2 <90% on arrival on room air: Yes
HR >/=110 during 3min walk test (or too ill to perform test): Yes
ECG has acute ischemic changes: No
Urea >/=12mmol/L (BUN 33.6mg/dL): No
Serum CO2>/=35mmol/L: No
Troponin I or T elevated to NV Level (0.4mg/dL): No
NT-proBNP >/=5,000ng/L (5,000pg/ml): Yes
HF Risk Score: 4
Admission Status: HIGH RISK 26.1% Consider SNF treatment or admission to hospital
Course
Orders/Labs/Results
Orders:
Orders
04/18/25 18:09
Electrocardiogram (*1) Stat
Reason for Study: Other
Other Reason for Exam: chest pain
EKG- Treatment ONCE
CR Chest - 2 Views Urgent
Comment:
Reason For Exam: sob chf
04/18/25 18:18
O2 Therapy [RESP] Urgent
Titrate/Wean O2 to maintain O2 sat greater than (%): 94
04/18/25 18:44
Complete Blood Count/With Diff Urgent
Comprehensive Metabolic Panel Urgent
Magnesium Urgent
NT-proBNP Urgent
TSH Urgent
Troponin I Urgent
04/18/25 19:30
Furosemide [Lasix] 100 mg IV NOW STA
Abnormal Lab Results
04/18/25
18:44
RBC 3.47 L 10^6/uL
(4.70-6.10)
Hgb 11.6 L g/dL
(13.0-18.0)
Hct 35.4 L %
(39.0-52.0)
MCV 102.0 H fL
(80.0-94.0)
MCH 33.4 H pg
(27.0-31.0)
MCHC 32.8 L g/dL
(33.0-37.0)
RDW 19.8 H %
(11.5-14.5)
Absolute Lymphs (auto) 0.7 L 10^3/uL
(1.2-3.4)
Neutrophils % 75.4 H %
(42.2-75.2)
Lymphocytes % 12.6 L %
(20.5-51.1)
Monocytes % 10.2 H %
(1.7-9.3)
Sodium 131 L mmol/L
(135-145)
BUN 52 H mg/dl
(9-20)
Creatinine 2.4 H mg/dL
(0.7-1.3)
Glucose 164 H mg/dl
(70-99)
Alkaline Phosphatase 138 H U/L
(38-126)
Troponin I 0.081 H* ng/ml
Albumin 3.4 L g/dl
(3.5-5.0)
04/18/25 18:44
04/18/25 18:44
Vital Signs
Initial and Last Documented VS:
Initial Vital Signs
Temp Pulse Resp BP Pulse Ox
98.6 F 85 16 122/71 94
04/18/25 15:54 04/18/25 15:54 04/18/25 15:54 04/18/25 15:54 04/18/25 15:54
Last Documented Vital Signs
Temp Pulse Resp BP Pulse Ox
98.6 F 80 25 132/60 88
04/18/25 15:54 04/18/25 18:48 04/18/25 18:30 04/18/25 18:12 04/18/25 18:36
MDM/Problems Addressed
Differential Diagnosis Includes:
Heart failure venous stasis cellulitis doubt DVT as he is anticoagulated
MDM/Problems Addressed:
Leg edema
Chronic conditions affecting care: HTN and Cardiomyopathy
Acute Exacerbation and/or Progression of Chronic Illness: HTN and Cardiomyopathy
*Radiology
Radiology exam reviewed: preliminary read by ED provider
*Pulse Oximetry
SaO2: 88
Oxygen Mode of Delivery: Room air
Patient hypoxic: yes
*Cosmetics Counter Manager Interpretation
Rate: normal
Interpretation: normal
Heart Rate: 88
Rhythm: a-fib
*Critical Care Note
Total Time (30-74mins, 75-104mins- exclusive of procedures): 15
Update Note
Update Note:
7:30 PM update chest x-ray noted proBNP noted creatinine noted all looks worsening will give large dose of diuretic will require admission is hypoxic, possibly he would benefit from a thoracentesis
ED Attending Note
-
Portions of this chart may have been created with voice recognition software.� Occasional wrong word or��sound alike� substitutions may have occurred due to the inherent limitations of voice recognition software.
Discharge Plan
Departure
Patient Disposition: Admit
Date of Disposition: 04/18/25
Time of Disposition: 19:31
Admit to: Telemetry
Presentation/result/management discussed w/ accepting MD/DO: Hospitalist
Patient with high blood pressure during this ER visit?: No
Condition: Fair
Discharge Problem:
Acute on chronic systolic (congestive) heart failure, JAY (acute kidney injury), Stage 3a chronic kidney disease (CKD), Paroxysmal A-fib
Prescriptions:
No Action
cyanocobalamin (vitamin B-12) 1,000 MCG tablet
1,000 mcg PO DAILY
atorvastatin 80 mg Tablet
80 mg PO DAILY
furosemide 40 mg tablet
160 mg PO BID AT 0800,1600
potassium chloride 20 mEq tablet,ER particles/crystals
20 meq PO TID
insulin glargine [Lantus Solostar U-100 Insulin] 100 unit/mL (3 mL) insulin pen
14 unit SC QPM
midodrine 5 mg Tablet
5 mg PO TID@0800,1300,1800 Qty: 90 0RF
insulin aspart U-100 [Novolog FlexPen U-100 Insulin] 100 unit/mL (3 mL) insulin pen
3 unit SC AC Qty: 15 0RF
Referrals:
UNKNOWN - PT DOES,NOT KNOW [Family Provider]
Interventions
Interventions:
*Risk Screen - Suicide Last Done: 04/18/25 15:54
Discharge Date and Time
Print Language: IRAQI
[2025-04-18 18:53] LABS: Hematocrit 35.4 % (39.0-52.0); Hemoglobin 11.6 g/dL (13.0-18.0); Mean Corp Hgb Conc. 32.8 g/dL (33.0-37.0); Mean Corpuscular Volume 102.0 fL (80.0-94.0); Nucleated Red Blood Cells % 0 % (-); Platelet Count 194 10^3/uL (130-400); Red Cell Dist. Width 19.8 % (11.5-14.5)
[2025-04-18 19:07] LABS: ALT (SGPT) 16 U/L (0-50); AST (SGOT) 31 U/L (17-59); Albumin 3.4 g/dl (3.5-5.0); Alkaline Phosphatase 138 U/L (38-126); Blood Urea Nitrogen 52 mg/dl (9-20); Calcium 9.4 mg/dl (8.4-10.2); Carbon Dioxide 26 mmol/L (22-30); Chloride 98 mmol/L (98-107); Estimated Creatinine Clearance 25 ml/min; Glucose 164 mg/dl (70-99); Magnesium 1.6 mg/dl (1.6-2.3); Potassium 4.0 mmol/L (3.5-5.1); Sodium 131 mmol/L (135-145); Total Protein 6.7 g/dl (6.3-8.2); eGFR 26.78
[2025-04-18 19:21] LABS: Troponin I 0.081 ng/ml
[2025-04-18 19:37] LABS: TSH 4.56 uIU/ml (0.47-4.68)
--- NOTE | 2025-04-18 19:41 | HPS.HSE ---
Addendum entered and electronically signed by Alvaro Colvin DO 04/18/25 22:03:
Patient seen and examined independently. Agree with findings and plan as set forth by Sahara Sharp PA-C.
Patient is a 79y M with PMH significant for ASCVD, severe , A-Fib and CKD who presents to ED complaining of increasing LE edema. Patient was previously admitted for acute blood loss, GI bleed and hypotension / shock. His diuretic regimen was
held / decreased at that time. He has since noted progressive edema and his diuretics has been increased back to his usual baseline doses. Unfortunately, his edema continues to progress. He denies any chest pain or shortness of breath.
Ass;
Acute on Chronic HFrEF
JAY on CKD IV
Abnormal Troponin - Likely secondary to CHF
Persistent Atrial Fibrillation
Severe Aortic Stenosis
ASCVD
Chronic Hypotension
DM-II
BPH
Gastric AVM / Recent GI Bleed
Plan:
Admit for further evaluation and treatment.
Lasix 80mg IV BID for now.
Follow I/Os, daily weights, etc.
Cardiology and Nephrology consulted for further recommendations.
Continue other usual home meds including Eliquis, midodrine, insulin, etc.
Original Note:
Family Physician
-
Family Physician: NOT KNOW UNKNOWN - PT DOES
Chief Complaint
-
Lower Extremity Edema
History of Present Illness
Patient is a 79 y/o male with past medical history of CAD, ICM, CHF, Severe , A-Fib and CKD who presents with increasing lower extremity edema. Patient reports they have slowly been increasing his diuretics but despite the increase his leg
continue to have increased swelling. He reports he was having some trouble with his home scale, but when they changed the battery he discovered his weight was up 8 lbs from his baseline. He denies any chest pain, palpitations or shortness of breath.
Medical History
Past Medical History
Past Medical History: Reports Other
Additional Past Medical History:
Coronary Artery Disease s/p CABG and Stent
Ischemic Cardiomyopathy
Chronic HFrEF
Carotid Artery Stenosis s/p Left Carotid Endarterectomy
Severe Aortic Stenosis
Persistent Atrial Fibrillation
Essential Hypertension
Hyperlipidemia
Diabetes Mellitus, Insulin-Dependent
CKD Stage IV
COPD
BPH
Gout
Past Surgical History: Reports Other
Additional Past Surgical History:
CABG
Cardiac Stent
Left Carotid Endarterectomy
Cholecystectomy
Social History
Tobacco: Smoker (Patient report he has not smoked in about 3 weeks)
Alcohol: None
Family History
Family History: Not pertinent
Allergies / Home Medications
Allergies reflects when Allergies were last updated in [facility].
Home Medications with original date entered in [facility]
Allergy/Medication List:
Allergies
Allergy/AdvReac Type Severity Reaction Status Date / Time
grass pollen Allergy SNEEZING Verified 04/18/25 15:57
ragweed pollen Allergy NASAL Verified 04/18/25 15:57
CONGESTION
rosiglitazone (From Avandia) Allergy pt denies Verified 04/18/25 15:57
allergy
Home Medications
cyanocobalamin (vitamin B-12) 1,000 mcg tablet 1,000 mcg PO DAILY Supplement 10/04/19
atorvastatin 80 mg tablet 80 mg PO DAILY High cholesterol 01/01/23
insulin aspart U-100 100 unit/mL (3 mL) subcutaneous pen (Novolog FlexPen U-100 Insulin aspart) 3 unit (0.03 mL) SC AC #15 mL 03/16/25
midodrine 5 mg tablet 5 mg PO TID@0800,1300,1800 #90 tabs 03/16/25
furosemide 40 mg tablet 160 mg PO BID AT 0800,1600 04/16/25
insulin glargine 100 unit/mL (3 mL) subcutaneous pen (Lantus Solostar U-100 Insulin) 14 unit SC HS 04/16/25
potassium chloride 20 mEq tablet,extended release(part/cryst) 20 meq PO BID 04/16/25
allopurinol 300 mg tablet 150 mg PO BID 04/18/25
apixaban 5 mg tablet (Eliquis) 5 mg PO BID 04/18/25
brimonidine 0.1 % eye drops 1 drp BOTH EYES BID@1200,2200 04/18/25
gjijzupx-pmrbuw-gavmf extract 5 mg-6 mg-150 mg capsule (Fruit and Vegetable Daily) 1 cap PO DAILY 04/18/25
metolazone 2.5 mg tablet 2.5 mg PO DAILY 04/18/25
omeprazole 40 mg capsule,delayed release 40 mg PO BID 04/18/25
therapeutic multivitamin 1 tab PO DAILY 04/18/25
zolpidem 5 mg tablet (Ambien) 5 mg PO HSPRN PRN sleep 04/18/25
Review of Systems
-
A 12 point ROS was completed and negative except as noted: Yes
Constitutional: Denies Fever or Chills
Respiratory: Denies Cough or Trouble Breathing
Cardiac: Denies Chest Pain or Palpitations
Physical Exam
Vital Signs
Vital Signs
Temp Pulse Resp BP Pulse Ox
98.6 F 80 25 132/60 88
04/18/25 15:54 04/18/25 18:48 04/18/25 18:30 04/18/25 18:12 04/18/25 18:36
Physical Exam
General: Well Developed and Well Nourished
HEENT: Anicteric and Moist mucous membranes
Respiratory: Clear and Decreased Breath Sounds (bilateral bases)
Cardiac: S1/S2, Irregular Rhythm and Murmur
GI: Soft and Non Tender
Rectal: Deferred by Provider
Musculoskeletal: No Clubbing, No Cyanosis and Other (+4 pitting edema bilateral lower extremities from knee up to the groin)
Skin: Warm and Dry
Neuro: Awake, Alert, Oriented and Nonfocal/grossly intact
Psych: Calm
Laboratory Results
-
04/18/25 18:44
04/18/25 18:44
Laboratory Results
Total Bilirubin 1.0 mg/dl (0.2-1.3) 04/18/25 18:44
AST 31 U/L (17-59) 04/18/25 18:44
ALT 16 U/L (0-50) 04/18/25 18:44
Alkaline Phosphatase 138 U/L (38-126) H 04/18/25 18:44
Troponin I 0.081 ng/ml H* 04/18/25 18:44
Impression/Plan
-
Acute on Chronic HFrEF
Acute Renal Insufficiency on CKD IV
-Echo March 2025: Moderately reduced EF with global hypokinesis and EF 31%. Severe aortic stenosis. Moderate to severe tricuspid regurgitation
-Consult Cardiology
-Consult Nephrology
-Reviewed with Nephrology who recommends Lasix 80mg IV BID
-Monitor Is&Os and Daily Weights
-Monitor Creatinine
Elevated Troponin, suspect non-ischemic myocardial injury in setting of heart failure
-Continue to trend troponin
Persistent Atrial Fibrillation
-Continue Eliquis
Severe Aortic Stenosis
-It appears patient has been undergoing evaluation for possible TAVR
Coronary Artery Disease s/p CABG and Stent
Carotid Artery Stenosis s/p Left Carotid Endarterectomy
-Patient appears to not be anti-platelets following recent GI bleed
Chronic Hypotension
-Continue midodrine
Hyperlipidemia
-Continue atorvastatin
Diabetes Mellitus, Insulin-Dependent
-Continue Lantus and Novolog
-Monitor sugars and continue coverage insulin
BPH
-Monitor bladder scans
Recent GI Bleed secondary to Gastric AVMs
-Continue Protonix BID
DVT proph: Eliquis
Code Status Full Code
[2025-04-18] MEDS: LASIX 100 MG IV (20:46)
--- NOTE | 2025-04-18 21:15 | EDRN ---
Report received, introduced myself to patient, placed on 3L nc o2 was dropping to mid 80s, with 3l NC o2 sats came up to 90s
[2025-04-18 21:54] LABS: Glucose - Point of Care 145 mg/dl (70-99)
--- NOTE | 2025-04-18 22:15 | PTCARENOTE ---
Patient received as admission to unit. Arrives via internal transport and ladle puller to bed from stretcher. No acute distress is noted. Intake vitals and nursing assessment performed per protocol.
[2025-04-18] MEDS: LANTUS 0.1 UNITS SC (22:31)
[2025-04-18] MEDS: TYLENOL 650 MG PO (22:36)
[2025-04-19] VITALS (7 sets, daily range): BP systolic 89–147; BP diastolic 48–80; BMI 29.7
[2025-04-19 00:04] LABS: Troponin I 0.085 ng/ml
[2025-04-19 05:19] LABS: Hematocrit 32.1 % (39.0-52.0); Hemoglobin 10.6 g/dL (13.0-18.0); Mean Corp Hgb Conc. 33.0 g/dL (33.0-37.0); Mean Corpuscular Volume 101.6 fL (80.0-94.0); Platelet Count 182 10^3/uL (130-400); Red Cell Dist. Width 18.6 % (11.5-14.5)
[2025-04-19 06:00] LABS: Troponin I 0.087 ng/ml
[2025-04-19 06:31] LABS: Blood Urea Nitrogen 49 mg/dl (9-20); Calcium 8.6 mg/dl (8.4-10.2); Carbon Dioxide 25 mmol/L (22-30); Chloride 99 mmol/L (98-107); Estimated Creatinine Clearance 23 ml/min; Glucose 189 mg/dl (70-99); Magnesium 1.5 mg/dl (1.6-2.3); Potassium 3.9 mmol/L (3.5-5.1); Sodium 131 mmol/L (135-145); eGFR 24.32
[2025-04-19 07:56] LABS: Glucose - Point of Care 204 mg/dl (70-99)
[2025-04-19] MEDS: NOVOLOG FLEXPEN-MODERATE RESISTANCE 3 UNITS SC (08:14)
[2025-04-19] MEDS: NOVOLOG FLEXPEN 3 UNITS SC ×3 (08:15→17:44)
--- NOTE | 2025-04-19 08:40 | VNURNOTE ---
Chart reviewed. Patient is current with [facility]. Will continue to follow hospital course and DC plans.
--- NOTE | 2025-04-19 09:03 | CON.CAR ---
Addendum entered and electronically signed by Ivan John MD 04/19/25 12:28:
79-year-old man admitted in early March with weakness falls and possible syncope in the setting of a hemoglobin of 6.7. He has known aortic stenosis, and CKD stage IV with a baseline creatinine of 2, now admitted with recurrent heart failure.
Chronically on Eliquis. Previously hospitalized in September with acute on chronic anemia. During more recent hospital stay he again underwent right and left heart catheterization showing mean aortic valve gradient of 28 mmHg and stable CAD
PMH: Anemia with GI blood loss, aortic stenosis, chronic HFrEF, ischemic cardiomyopathy with a EF of 31%, CKD 4 with recent JAY, CABG in 2001, left CEA, ICD 2017, persistent A-fib, diabetes, gout, smoker
Current meds: Allopurinol 150 mg twice daily, atorvastatin 80 mg a day, apixaban 5 mg twice daily, metolazone 2.5 mg daily, midodrine 5 mg 3 times daily, insulin, pantoprazole, potassium 20 mill equivalents twice daily, furosemide 80 mg IV twice
daily, insulin
Not in acute distress, but insisting that he must leave
138/74, pulse 90, respiratory rate 17, temp is 36.7, weight is 80.3 kg, at discharge was 68.7 kg, head neck exam unremarkable, lungs are relatively clear, JVD not dramatically elevated, aortic stenosis murmur, 1+ to 2+ edema
ECG atrial fibrillation, PVCs versus aberrant conduction, right bundle branch block with left anterior fascicular block, LVH
Right heart cath/left heart cath 03/15/2025: RA 14, PA 67/28, PCWP 24, LVEDP 18, CO/CI 5.4/3.0, aortic valve with mean pressure gradient 28 mmHg, KAELYN 0.95 cm�.
LAD 100% occluded midportion, NAVAS to LAD versus diagonal is patent to either mid LAD or diagonal branch with anterograde and retrograde filling well-developed septal collaterals from RCA noted. Ramus occluded at origin distal fills via patent free
radial to ramus graft. Circumflex 100% occluded at origin, RCA occluded with patent SVG to PDA. Graft angiography: NAVAS as above, free radial to ramus widely patent, SVG to OM1 100% occluded, SVG to PDA 50 to 55% stenosis in the mid portionEcho
03/12/2025: EF 31%, global hypokinesis, moderate MR, severe peak/mean 41/22 mmHg and KAELYN 0.7 cm sq, mild aortic regurgitation, moderate to severe TR with PAP 72 mmHg
Hemoglobin is 10.6, MCV is 101, sodium is 131, potassium is 3.9, BUN and creatinine are 49 and 2.6, as outpatient creatinine was 1.7 and was 2.0 at discharge, troponin is 0.087, proBNP is 18,500, was 8400 on March 16
Impression:
Acute on chronic HFrEF
Severe aortic stenosis
JAY on CKD
CABG 2021
ICD
Left CEA
History of GI bleeding
Diabetes, gout, ongoing tobacco use
Other diagnoses as below. Reviewed in detail and agree unless otherwise specified.
Plan:
He returns now with acute on chronic HFrEF in the setting of aortic stenosis. The structural heart team has elected not to proceed with transcatheter aortic valve implantation at this time.
His weight went up almost 20 pounds since discharge. Unfortunately, he is insisting on leaving. His creatinine is elevated.
Would defer to nephrology as to diuretic regimen if he is insistent upon leaving. Prior to his admission in earlier March he was on metolazone, and at discharge his recommended furosemide dose was 40 mg twice daily. This was increased to 220 mg
twice daily and an office visit on April 03. Currently his furosemide is listed as 160 mg twice daily. Metolazone and spironolactone as well as carvedilol were all stopped at the time of discharge.
If he is willing to stay, continue furosemide 80 mg twice daily. Also on metolazone, which is reasonable. We may need to rethink issue of MILTON.
Original Note:
Consultation
Consultation Request
Date/Time Consultation Requested: 04/18/2025, 2148
Date/Time Consultation Performed: 04/19/2025, 0900
Requesting Provider: Sahara Sharp PA-C
Performing Provider: ANASTACIO Green for Dr John
Reason for Consultation: heart failure
Medical History
-
Chief Complaint: weight gain
History of Present Illness:
Patient came to the ER 04/18/2025 with weight gain and increasing lower extremity edema despite up titration of outpatient diuretics. He is a 79-year-old male with a history of permanent atrial fibrillation, aortic stenosis with previous evaluation
for TAVR with repeat eval currently undergoing( eval in 2016, 2022-mean gradient on [facility] 27 and TAVR not advised), coronary artery disease, status post CABG, recurrent GI bleeds, chronic kidney disease, ICD, anemia, smoker. He had a previous
admission to [facility] 03/11/2025 - 03/17/2025 with near syncope and a fall, shock. Hemoglobin 6.7, creatinin e 2.6 (baseline 2.0) diuretics (Lasix, Metolazone, Spironolactone) and Coreg held most of admission and restarted at lower outpatient dose.
Required midodrine for BP support. Seen by GI and GI bleed thought to be due to AVMs. 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 Eliquis resumed 5 days after endoscopy, at
lower dose 2.5 mg bid. Repeat TAVR evaluation performed with echo and right and left heart cath (mean gradient 28)and patient is being considered for TAVR, structural heart team plans to discuss him at meeting tomorrow.
CT TAVR 04/16/2025 with measurements to be added as separate addendum, had moderate right and small left pleural effusion
Patient was discharged on 03/31/2025 furosemide 40 mg twice daily, midodrine 5 mg 3 times daily, apixaban 2.5 mg twice daily (dose lowered due to CKD) and atorvastatin. Metolazone, spironolactone, and carvedilol were all held.
Weight progressively increasing since last discharge on 03/17/2025, weight at that time 151 pounds, weight on admission 04/18/2025 180 pounds. Outpatient Lasix has been uptitrated over past month to 120 mg twice daily and metolazone restarted at 2.5
mg M-W-, initially with stable creatinine at 1.56 on 04/02/2025, but 2.1 on 04/18/2025 and progressive weight gain.
ED evaluation:
proBNP 18,500 (proBNP 8410 on discharge 03/16/2025)
NA 131, BUN/creatinine 52/2.4, K4.0, mag 1.6
Troponin 0.081�0 0.085�0.087
TSH 4.56
Hemoglobin 11.6.
Chest x-ray:pulmonary edema with moderate right and small left pleural effusions
Patient currently denies shortness of breath, PND, orthopnea. He is demanding to go home as he does not want to be confined to hospital room
Denies CP/palps/lightheadedness
PMH:
Severe since 2019
s/p TAVR work-up with MPG 27 at time of cath and not recommended TAVR 01/2023
TAVR w/u 03/2025 MPG 28, repeat TAVR w/u in progress
Chronic HFrEF
ICM EF 31% by echo 03/12/2025
History of reduced ejection fraction heart failure with recovered EF
JAY on CKD 4, baseline creat ~2.0
admissions for GIB 09/2024, 03/2025, thought to be due to recurrent AVMs, treated with argon plasma coagulation and clips placed
CAD status post CABGx4 in setting of [place] 2001
carotid disease s/p left CEA in 2012
s/p Medtronic single chamber ICD 2017
Persistent Afib
Chronic Eliquis OAC
DM 2
Gout
Smoker, ongoing tobacco use
Past Medical History
Past Medical History: Other (in HPI)
Past Surgical History: Cardiac (single chamber Medtronic ICD ) and Cholecystectomy
Social History
Tobacco: Smoker (1 ppd)
Alcohol: None
Personal:
Living: With Family
Employment: Retired
Family History
Family History: Cancer and Diabetes
Allergies / Home Medications
Allergy/AdvReac Type Severity Reaction Status Date / Time
grass pollen Allergy SNEEZING Verified 04/18/25 15:57
ragweed pollen Allergy NASAL Verified 04/18/25 15:57
CONGESTION
rosiglitazone (From Avandia) Allergy pt denies Verified 04/18/25 15:57
allergy
�Medication �Instructions �Recorded �Confirmed �Type
cyanocobalamin (vitamin B-12) 1,000 mcg PO DAILY Supplement 10/04/19 04/18/25 History
1,000 mcg tablet
atorvastatin 80 mg tablet 80 mg PO DAILY High cholesterol 01/01/23 04/18/25 History
insulin aspart U-100 100 unit/mL 3 unit (0.03 mL) SC AC #15 mL 03/16/25 04/18/25 Rx
(3 mL) subcutaneous pen (Novolog
FlexPen U-100 Insulin aspart)
midodrine 5 mg tablet 5 mg PO TID@0800,1300,1800 #90 tabs 03/16/25 04/18/25 Rx
furosemide 40 mg tablet 160 mg PO BID AT 0800,1600 04/16/25 04/18/25 History
insulin glargine 100 unit/mL (3 14 unit SC HS 04/16/25 04/18/25 History
mL) subcutaneous pen (Lantus
Solostar U-100 Insulin)
potassium chloride 20 mEq 20 meq PO BID 04/16/25 04/18/25 History
tablet,extended release(part/cryst)
allopurinol 300 mg tablet 150 mg PO BID 04/18/25 04/18/25 History
apixaban 5 mg tablet (Eliquis) 5 mg PO BID 04/18/25 04/18/25 History
brimonidine 0.1 % eye drops 1 drp BOTH EYES BID@1200,2200 04/18/25 04/18/25 History
grntqjlo-lptrme-tuawx extract 5 1 cap PO DAILY 04/18/25 04/18/25 History
mg-6 mg-150 mg capsule (Fruit and
Vegetable Daily)
metolazone 2.5 mg tablet 2.5 mg PO DAILY 04/18/25 04/18/25 History
omeprazole 40 mg capsule,delayed 40 mg PO BID 04/18/25 04/18/25 History
release
therapeutic multivitamin 1 tab PO DAILY 04/18/25 04/18/25 History
zolpidem 5 mg tablet (Ambien) 5 mg PO HSPRN PRN sleep 04/18/25 04/18/25 History
Review of Systems
-
History Source: Patient
Constitutional: No Symptoms
Physical Exam
Vital Signs
Temp Pulse Resp BP Pulse Ox
98.0 F 90 17 138/74 92
04/19/25 08:40 04/19/25 08:40 04/19/25 08:40 04/19/25 08:40 04/19/25 08:40
Lab Results
04/19/25 05:11
04/19/25 05:11
Troponin I 0.087 ng/ml H* 04/19/25 05:11
Isk-O-Dmclxnpqnki Pept 28975 pg/ml 04/18/25 18:44
GEN: No distress, awake, Ox3
HEENT: supple, anicteric, mmm
LUNGS:decreased b/L bases, crackles L base
CV: irreg, irreg S1/S2, 3/6 syst LSB, no murmur
ABD: soft, BS+, NT/ND
EXT: 3+ LE edema, firm
NEURO: Gross non-focal
SKIN: No rash
Impression / Plan
-
PCP: Dr. Eason
Primary Reflexologist: Dr. Sutton
Impression:
acute on chronic HFrEF
wt gain
LE edema
Admission 03/2025 for shock, anemia, GI bleed
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
Severe since 2018
s/p TAVR work-up with MPG 27 at time of cath and not recommended TAVR 01/2023
RHC/LHC 03/15/2025 MPG 28 mmHg, stable CAD, current TAVR eval in process
ICM EF 31%, echo 03/12/2025
History of reduced ejection fraction heart failure with recovered EF
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
CAD status post CABGx4 in setting of [place] in 2001
carotid disease s/p left CEA in 2012
s/p Medtronic single chamber ICD 2017
Persistent Afib
Chronic Eliquis OAC
DM 2
Gout
Smoker, ongoing tobacco use
Echo 08/23/2019: EF 30-35%, global hypokinesis with inferolateral, inferior and basal septal akinesis, mild MR, sev pressure 47/28 mmHg
ECHO 12/03/22: EF 50%, mild LVH, stage III diastolic dysfunction, mild MR, severe with peak/mean gradients 54/28 mmHg, KAELYN 0.8 cm�, trace AR, mild TR, PAP 64 mmHg, mild dilation of aorta measuring 4.0 cm
Echo 10/09/2024: EF 35 to 40%, moderate eccentric MR, severe peak/mean 60/34 mmHg and KAELYN 0.8 cm sq, mild aortic insufficiency, moderate TR with PAP 64 mmHg
Echo 03/12/2025: EF 31%, global hypokinesis, moderate MR, severe peak/mean 41/22 mmHg and KAELYN 0.7 cm sq, mild aortic regurgitation, moderate to severe TR with PAP 72 mmHg
Right heart cath/left heart cath 03/15/2025: RA 14, PA 67/28, PCWP 24, LVEDP 18, CO/CI 5.4/3.0, aortic valve with mean pressure gradient 28 mmHg, KAELYN 0.95 cm�.
LAD 100% occluded midportion, NAVAS to LAD versus diagonal is patent to either mid LAD or diagonal branch with anterograde and retrograde filling well-developed septal collaterals from RCA noted. Ramus occluded at origin distal fills via patent free
radial to ramus graft. Circumflex 100% occluded at origin, RCA occluded with patent SVG to PDA. Graft angiography: NAVAS as above, free radial to ramus widely patent, SVG to OM1 100% occluded, SVG to PDA 50 to 55% stenosis in the mid
Plan:
Acute HFrEF
-proBNP 18,500, chest x-ray with bilateral pleural effusions.
-Presents with 29 lbs weight gain in past month with increasing LE edema, JAY on CKD
- Agree with IV Lasix
- Replete Magnesium- I ordered
-creat up from baseline of 2.0 to 2.6
-off GDMT due to previous hypotension 03/2025 admission. Was previously on carvedilol and spironolactone
- Consider resuming carvedilol once more euvolemic
Aortic stenosis-
-TAVR eval in process with plan for structural heart team to discuss his case at meeting tomorrow 04/20
- Aortic valve mean pressure gradient 28 mmHg on last cath 03/15/2025
- High risk candidate due to history of COPD
Acute on chronic kidney disease
- Creatinine up to 2.6 status post reuptitration of his home doses of diuretics in outpt setting to Lasix 160 mg twice daily and metolazone 2.5 mg 3 times a week.
-Renal consult already ordered
AFIb
-permanent afib, HRs controlled
-telem personally reviewed: afib with freq PVCs, couplets, triplets
-Hgb stable on Eliquis
-Risk of rebleeding is high on anticoagulation, but risk of stroke a major concern. During 03/2025 admission it was decided to reduce Eliquis to 2.5 mg bid as he will turn 80 in 7 months
Elevated troponin
- Suspect nonischemic myocardial injury in setting of heart failure
-Patient denies chest pain
- Left heart cath 03/15/2025 with occluded SVG to OM1, otherwise patent grafts. See cath report
Data Reviewed
-
EKG: Tracing Personally Visualized and interpreted
Medical Tests (Nuc Med, Echo etc): Image Personally Visualized and interpreted
Labs: Labs Reviewed by me
[2025-04-19] MEDS: PROTONIX 40 MG PO ×2 (09:30→20:31)
[2025-04-19] MEDS: LIPITOR 80 MG PO (09:30)
[2025-04-19] MEDS: KCL 20 MEQ PO ×2 (09:30→20:31)
[2025-04-19] MEDS: ELIQUIS 5 MG PO ×2 (09:30→20:32)
[2025-04-19] MEDS: ZYLOPRIM 150 MG PO ×2 (09:32→20:31)
[2025-04-19] MEDS: ZAROXOLYN 2.5 MG PO (09:32)
[2025-04-19] MEDS: LASIX 80 MG IV ×3 (09:37→22:10)
[2025-04-19 10:10] LABS: Troponin I 0.087 ng/ml
[2025-04-19] MEDS: MAGNESIUM OXIDE 500 MG PO (11:04)
[2025-04-19 11:34] LABS: Glucose - Point of Care 181 mg/dl (70-99)
--- NOTE | 2025-04-19 12:04 | W.CON.NEPH ---
Consultation
-
Date/Time Consultation Requested: 04/18/252148
Date/Time Consultation Performed: 04/19/25 1145
Requesting Provider: Alvaro Mosley
Performing Provider: Cherie Rascon
Reason for Consultation: JAY with CKD
Medical History
-
Chief Complaint: LE edema
History of Present Illness:
79 male history of HTN on low dose coreg, CHF R EF on high dose lasix, metolazone, known previously declined intervention recently getting w/u for TAVR, CKD3b baseline cr [address] Yates, IDDM, COPD, CAD s/p CABG, hyperlipidemia, atrial
fibrillation Eliquis, BPH for known history of previous GI bleed from ectasias in the stomach who presents with increasing LE edema and wt gain. Patient was previously admitted in march for acute blood loss, GI bleed and hypotension / shock. His
diuretic regimen was held / decreased at that time of d/c. He is closely with cardiology and lasix dose increased to 220mg BID and metolazone resumed 2.5mg MWF on 04/03. He is still edema and total gained 20lbs from his dry wt. HIs cr on admit 2.4
and today at 2.6. CXR shows pulm edema and pleural effusion. He had 100mg lasix IV last night but did not produce much of urine. He offers no cp, unclear of sob. No n/v or abd pain. History is limited since pt kept asking to leave the hospital.
nephrology consulted for JAY.
Past Medical History
Severe since 2018
s/p TAVR work-up with MPG 27 at time of cath and not recommended TAVR hronic HFrEF
ICM EF 30% 03/2025
History of reduced ejection fraction heart failure with recovered EF
CKD 3b
CAD status post CABGx4 in setting of [place] in 2001
carotid disease s/p left CEA in 2012
s/p Medtronic single chamber ICD 2017
Persistent Afib
Chronic Eliquis OAC
DM 2
Gout
Smoker, ongoing tobacco use
COPD
Hypercholesterolemia
h/o GIB from AVMs
Past Surgical History: Cholecystectomy and Other (CABG, ICD)
Social History
Tobacco: Smoker (1PPD)
Alcohol: None
Personal:
Living: With Family
Family History
Family History: Not Pertinent
Allergies / Home Medications
Allergy/AdvReac Type Severity Reaction Status Date / Time
grass pollen Allergy SNEEZING Verified 04/18/25 15:57
ragweed pollen Allergy NASAL Verified 04/18/25 15:57
CONGESTION
rosiglitazone (From Avandia) Allergy pt denies Verified 04/18/25 15:57
allergy
�Medication �Instructions �Recorded �Confirmed �Type
cyanocobalamin (vitamin B-12) 1,000 mcg PO DAILY Supplement 10/04/19 04/18/25 History
1,000 mcg tablet
atorvastatin 80 mg tablet 80 mg PO DAILY High cholesterol 01/01/23 04/18/25 History
insulin aspart U-100 100 unit/mL 3 unit (0.03 mL) SC AC #15 mL 03/16/25 04/18/25 Rx
(3 mL) subcutaneous pen (Novolog
FlexPen U-100 Insulin aspart)
midodrine 5 mg tablet 5 mg PO TID@0800,1300,1800 #90 tabs 03/16/25 04/18/25 Rx
furosemide 40 mg tablet 160 mg PO BID AT 0800,1600 04/16/25 04/18/25 History
insulin glargine 100 unit/mL (3 14 unit SC HS 04/16/25 04/18/25 History
mL) subcutaneous pen (Lantus
Solostar U-100 Insulin)
potassium chloride 20 mEq 20 meq PO BID 04/16/25 04/18/25 History
tablet,extended release(part/cryst)
allopurinol 300 mg tablet 150 mg PO BID 04/18/25 04/18/25 History
apixaban 5 mg tablet (Eliquis) 5 mg PO BID 04/18/25 04/18/25 History
brimonidine 0.1 % eye drops 1 drp BOTH EYES BID@1200,2200 04/18/25 04/18/25 History
vjcafirx-rnvhis-ubklb extract 5 1 cap PO DAILY 04/18/25 04/18/25 History
mg-6 mg-150 mg capsule (Fruit and
Vegetable Daily)
metolazone 2.5 mg tablet 2.5 mg PO DAILY 04/18/25 04/18/25 History
omeprazole 40 mg capsule,delayed 40 mg PO BID 04/18/25 04/18/25 History
release
therapeutic multivitamin 1 tab PO DAILY 04/18/25 04/18/25 History
zolpidem 5 mg tablet (Ambien) 5 mg PO HSPRN PRN sleep 04/18/25 04/18/25 History
Review of Systems
-
All other systems: Negative unless noted
Physical Exam
Vital Signs
Vital Signs
Temp Pulse Resp BP Pulse Ox
97.4 F 76 19 110/62 93
04/19/25 11:21 04/19/25 11:21 04/19/25 11:21 04/19/25 11:21 04/19/25 11:21
Lab Results
WBC 6.5 10^3/uL (4.8-10.8) 04/19/25 05:11
RBC 3.16 10^6/uL (4.70-6.10) L 04/19/25 05:11
Hgb 10.6 g/dL (13.0-18.0) L 04/19/25 05:11
Hct 32.1 % (39.0-52.0) L 04/19/25 05:11
Plt Count 182 10^3/uL (130-400) 04/19/25 05:11
Sodium 131 mmol/L (135-145) L 04/19/25 05:11
Potassium 3.9 mmol/L (3.5-5.1) 04/19/25 05:11
Chloride 99 mmol/L (98-107) 04/19/25 05:11
Carbon Dioxide 25 mmol/L (22-30) 04/19/25 05:11
BUN 49 mg/dl (9-20) H 04/19/25 05:11
Creatinine 2.6 mg/dL (0.7-1.3) H 04/19/25 05:11
eGFR 24.32 04/19/25 05:11
Glucose 189 mg/dl (70-99) H 04/19/25 05:11
Calcium 8.6 mg/dl (8.4-10.2) 04/19/25 05:11
Mrm-W-Agxxvplmdji Pept 49479 pg/ml 04/18/25 18:44
Albumin 3.4 g/dl (3.5-5.0) L 04/18/25 18:44
Physical Exam
General: Awake, Alert, Oriented, AOx3, No Distress and Nontoxic
HEENT: Anicteric, Conjunctivae Clear and Facial Symmetry
Respiratory: Normal Excursion, Nonlabored Respirations and Other (decreased BS anteriorly)
Cardiac: S1/S2 and Regular Rate/Rhythm
Breast: Deferred by me
Abdomen: Soft, Nontender and Nondistended
Musculoskeletal: Edema (3+)
Skin: No Rash
Neuro: Nonfocal/Grossly Intact
Psych: Appropriate
Data Reviewed
-
Labs: Labs Reviewed by me, Discussed with Nurse and Discussed with Patient
Assessment/Plan
-
IMP:
Acute on Chronic HFrEF
Abnormal Troponin - Likely secondary to CHF
JAY on CKD 3bbaseline cr at 2-follows Dr Yates
Paroxysmal atrial fibrillation
Chronic hyponatremia
COPD without exacerbation
Chronic heart failure reduced EF 30%
CAD/CABG x 4 (2001)
Medtronic single-chamber ICD, 2018
Carotid disease -s/p left CEA 2012.
Essential hypertension
DM 2
Severe aortic stenosis -previously declined TAVR workup.
Hyperlipidemia
Gout
h/o GI bleed 03/2025 , known h/o AVMS
traumatic left-sided rib fractures -due to fall last admit in March
Plan:
A/w acute on chr CHF also h/o severe
suspect cardiorenal , bladder scan 60cc
no good response to IV diuresis
will increase lasix to 80 TID and add back metolazone
consider changing to lasix gtt
TAVR eval per cards, noted no intervention currently
he insisting to leave mainly with increased anxiety level
informed primary team -hopefully can use some anxiolytic to keep him in hospital
no emergent need of dialysis, he is not refusing but further discussion is limited due to pt non cooperative
with out intervention he will not be candidate for dialysis with high risk of hemodynamic collapse
reaplce mg
Bp stable on midodrine
follow hgb-stable
d/w pt and primary, cards
d/w nursing
If he insisting of leaving hospital it will be AMA
[2025-04-19] MEDS: NOVOLOG FLEXPEN-MODERATE RESISTANCE 1 UNITS SC (12:48)
--- NOTE | 2025-04-19 13:14 | W.PN.HOSP.TC ---
Today's Communication/Plan
-
Assessment / Plan
Assessment / Plan
General: No Apparent Distress, Comfortable and Conversant
HEENT: NormoCephalic, Moist mucous membranes, Atraumatic, nasal cannula in place
Respiratory: Mild rales bilaterally, decreased breath sounds at the bilateral bases, Non Labored Respirations
Cardiac: Irregular rhythm, controlled rate around 80; 2/6 systolic murmur
GI: Soft, Non Tender, Non Distended and Normal Bowel Sounds
Musculoskeletal: 1+ lower extremity edema, no deformity
Skin: Warm and dry
: NO Olea
Neuro: Awake, Alert, Nonfocal/grossly intact
Psych: Anxious
Mr. An is a 79-year-old male with a medical history of CAD (status post CABG and stents), HFrEF, severe , A-fib (on Eliquis), carotid artery stenosis (status post left CEA), IDDM, and CKD stage IV who presented with increasing lower extremity
edema and abrupt weight gain. His home diuretic regimen has been altered frequently per patient report. At time of presentation he has approximately 20 pounds over his dry weight. Chest imaging shows pulmonary edema and bilateral pleural
effusions. He has been started on IV diuresis and admitted for further evaluation and management of acute on chronic HFrEF.
Acute on chronic HFrEF:
- Continue aggressive IV diuresis currently with Lasix 80 mg IV twice daily with metolazone 2.5 mg daily
- Monitor I's and O's and daily weights
- Monitor electrolytes with diuresis and replete as needed, was hypomagnesemic this morning with a serum value of 1.5
- Appreciate cardiology guidance
- Patient is extremely anxious to leave but inpatient treatment is currently warranted
JAY on CKD stage IV:
- Suspect due to cardiorenal syndrome
- Monitor for improvement in renal function with diuresis
- Nephrology following
- Baseline creatinine appears to be around 2.0
Hyponatremia:
- Appears chronic, stable
- Monitor with diuresis
IDDM:
- Home regimen is Lantus 14 units at night and NovoLog 3 units with meals
- Will use Lantus 10 units at night and NovoLog 3 units with meals while inpatient
- Continue Accu-Cheks, additional sliding scale as needed
- Diabetic diet
A-fib:
- Chronic
- Currently rate controlled
- Continue anticoagulation with Eliquis
DVT prophylaxis: Eliquis
CODE STATUS: Full code
Total time spent on today's encounter was 45 minutes
Anticipated Discharge: 24 - 48 hours
Subjective/Interval History
-
Date of Service: April 19, 2025
Mr. An was seen and examined at bedside this morning. He is incredibly anxious to be discharged from the hospital. However he is still requiring aggressive IV diuresis. He is saturating in the low to mid 90s on 3 L via nasal cannula, is not
on supplemental oxygen at home.
Objective Data
-
Labs:
Laboratory Results
04/19/25
05:11
WBC 6.5
Hgb 10.6 L
Hct 32.1 L
Plt Count 182
Sodium 131 L
Potassium 3.9
Chloride 99
Carbon Dioxide 25
BUN 49 H
Creatinine 2.6 H
Glucose 189 H
Calcium 8.6
Vital Signs:
Vital Signs
Temp Pulse Resp BP Pulse Ox
97.4 F 76 19 110/62 93
04/19/25 11:21 04/19/25 11:21 04/19/25 11:21 04/19/25 11:21 04/19/25 11:21
I&O
04/18/25 04/19/25 04/20/25
06:59 06:59 06:59
Intake Total 960 / 960
Output Total 450 / 450
Balance 510 / 510
Review of Systems
-
History Source: Patient
All other systems: Reviewed and negative
Psych: Reports Anxious
Physical Exam
-
General: No Apparent Distress and Appears Chronically Ill
[2025-04-19] MEDS: MAGNESIUM SULFATE 50 IV (15:08)
[2025-04-19 16:56] LABS: Glucose - Point of Care 252 mg/dl (70-99)
[2025-04-19] MEDS: NOVOLOG FLEXPEN-MODERATE RESISTANCE 5 UNITS SC (17:44)
[2025-04-19] MEDS: NICODERM TRANSDERMAL 14 MG TRANSDERM (17:51)
[2025-04-19] MEDS: XANAX 0.25 MG PO (18:31)
[2025-04-19 21:31] LABS: Glucose - Point of Care 312 mg/dl (70-99)
[2025-04-19] MEDS: LANTUS 0.1 UNITS SC (22:00)
[2025-04-19] MEDS: NOVOLOG FLEXPEN 4 UNITS SC (22:04)
[2025-04-19] MEDS: REMOVE NICOTINE PATCH 1 PATCH REMOVE (22:20)
[2025-04-20] VITALS (8 sets, daily range): BP systolic 115–141; BP diastolic 65–84; BMI 29.8
[2025-04-20 00:19] LABS: Glucose - Point of Care 244 mg/dl (70-99)
[2025-04-20] MEDS: AMBIEN 5 MG PO (00:42)
[2025-04-20] MEDS: NON-FORMULARY ITEM 1 UNIT BOTH EYES ×2 (02:37→22:00)
[2025-04-20 07:02] LABS: Blood Urea Nitrogen 57 mg/dl (9-20); Calcium 8.9 mg/dl (8.4-10.2); Carbon Dioxide 25 mmol/L (22-30); Chloride 98 mmol/L (98-107); Estimated Creatinine Clearance 21 ml/min; Glucose 128 mg/dl (70-99); Potassium 3.7 mmol/L (3.5-5.1); Sodium 131 mmol/L (135-145); eGFR 22.25
[2025-04-20 08:08] LABS: Glucose - Point of Care 140 mg/dl (70-99)
[2025-04-20 09:00] LABS: Magnesium 2.0 mg/dl (1.6-2.3)
[2025-04-20] MEDS: NICODERM TRANSDERMAL 14 MG TRANSDERM (09:33)
[2025-04-20] MEDS: ZAROXOLYN 2.5 MG PO (09:33)
[2025-04-20] MEDS: LIPITOR 80 MG PO (09:34)
[2025-04-20] MEDS: LASIX 80 MG IV (09:34)
[2025-04-20] MEDS: KCL 20 MEQ PO ×2 (09:36→19:29)
[2025-04-20] MEDS: ELIQUIS 5 MG PO ×2 (09:36→19:28)
[2025-04-20] MEDS: PROTONIX 40 MG PO ×2 (09:36→19:28)
[2025-04-20] MEDS: ZYLOPRIM 150 MG PO ×2 (09:36→19:29)
[2025-04-20] MEDS: NOVOLOG FLEXPEN-MODERATE RESISTANCE SC (09:37)
[2025-04-20] MEDS: NOVOLOG FLEXPEN 3 UNITS SC ×3 (09:47→17:56)
--- NOTE | 2025-04-20 10:43 | W.PN.NEPH.PH ---
Today's Communication / Plan
-
Postvoid bladder scans were not significantly elevated
Will transition Lasix to 20 mg IV per hour on drip
Assessment/Plan
-
IMP:
Acute on Chronic HFrEF
Abnormal Troponin - Likely secondary to CHF
JAY on CKD 3bbaseline cr at 2-follow[address] Dr Yates
Paroxysmal atrial fibrillation
Chronic hyponatremia
COPD without exacerbation
Chronic heart failure reduced EF 30%
CAD/CABG x 4 (2001)
Medtronic single-chamber ICD, 2018
Carotid disease -s/p left CEA 2012.
Essential hypertension
DM 2
Severe aortic stenosis -previously declined TAVR workup.
Hyperlipidemia
Gout
h/o GI bleed 03/2025 , known h/o AVMS
traumatic left-sided rib fractures -due to fall last admit in March
Plan:
JAY worsening with creatinine up to 2.8
A/w acute on chr CHF also h/o severe
suspect cardiorenal , bladder scan 60cc, 600 cc urine output noted on high-dose IV diuretic
no good response to IV diuresis, will transition to Lasix drip 20 mg/hr
TAVR eval per cards, noted no intervention currently
no emergent need of dialysis, he is not refusing but further discussion is limited due to pt non cooperative
with out intervention he will not be candidate for dialysis with high risk of hemodynamic collapse
Patient is at high risk with acute kidney injury ongoing congestive heart failure despite high-dose diuretics and to be transition to IV Lasix drip
-
-
Date of Service: April 20, 2025
CC / HPI / ROS
-
Chief Complaint:
Acute kidney injury
History of Present Illness:
Creatinine up to 2.8
Hemodynamically stable on midodrine
Poor response to IV diuretics in setting of congestive heart failure
Review of Systems:
Nonoliguric at 600 cc
No fevers or chills
Shortness of breath noted
Weights up
Labs
-
Labs:
WBC 6.5 10^3/uL (4.8-10.8) 04/19/25 05:11
RBC 3.16 10^6/uL (4.70-6.10) L 04/19/25 05:11
Hgb 10.6 g/dL (13.0-18.0) L 04/19/25 05:11
Hct 32.1 % (39.0-52.0) L 04/19/25 05:11
Plt Count 182 10^3/uL (130-400) 04/19/25 05:11
Sodium 131 mmol/L (135-145) L 04/20/25 05:51
Potassium 3.7 mmol/L (3.5-5.1) 04/20/25 05:51
Chloride 98 mmol/L (98-107) 04/20/25 05:51
Carbon Dioxide 25 mmol/L (22-30) 04/20/25 05:51
BUN 57 mg/dl (9-20) H 04/20/25 05:51
Creatinine 2.8 mg/dL (0.7-1.3) H 04/20/25 05:51
eGFR 22.25 04/20/25 05:51
Glucose 128 mg/dl (70-99) H 04/20/25 05:51
Calcium 8.9 mg/dl (8.4-10.2) 04/20/25 05:51
Phosphorus 4.2 mg/dl (2.5-4.5) 04/20/25 05:51
Jfq-U-Kyfbfleweki Pept 37497 pg/ml 04/18/25 18:44
Albumin 3.4 g/dl (3.5-5.0) L 04/18/25 18:44
Physical Exam
-
Vital Signs:
Vital Signs
Temp Pulse Resp BP Pulse Ox
97.6 F 75 18 122/65 88
04/20/25 08:40 04/20/25 08:40 04/20/25 08:40 04/20/25 08:40 04/20/25 08:40
Cardiovascular:: Regular rate and rhythm
Respiratory:: Bilateral: Coarse (Decreased breath sounds at bases)
Lung Excursion:: Normal
Abdomen:: Nontender and Soft
Bowel Sounds:: Normal
Extremity Edema:: +1: Bilateral: (chronic)
Olea Catheter: No
[2025-04-20] MEDS: STERILE WATER FOR INJECTION 18 ML IV (11:33)
[2025-04-20] MEDS: DIURIL 0.5 GRAM VIAL 0.5 GRAMS IV (11:33)
[2025-04-20 12:03] LABS: Glucose - Point of Care 177 mg/dl (70-99)
[2025-04-20] MEDS: LASIX 50 IV (12:09)
--- NOTE | 2025-04-20 12:39 | W.PN.HOSP.TC ---
Today's Communication/Plan
-
Assessment / Plan
Assessment / Plan
General: No Apparent Distress, Comfortable and Conversant
HEENT: NormoCephalic, Moist mucous membranes, Atraumatic, nasal cannula in place
Respiratory: Mild rales bilaterally, decreased breath sounds at the bilateral bases, Non Labored Respirations
Cardiac: Irregular rhythm, controlled rate around 80; 2/6 systolic murmur
GI: Soft, Non Tender, Non Distended and Normal Bowel Sounds
Musculoskeletal: 1+ lower extremity edema, no deformity
Skin: Warm and dry
: NO Olea
Neuro: Awake, Alert, Nonfocal/grossly intact
Psych: Calm and cooperative
Mr. An is a 79-year-old male with a medical history of CAD (status post CABG and stents), HFrEF, severe , A-fib (on Eliquis), carotid artery stenosis (status post left CEA), IDDM, and CKD stage IV who presented with increasing lower extremity
edema and abrupt weight gain. His home diuretic regimen has been altered frequently per patient report. At time of presentation he has approximately 20 pounds over his dry weight. Chest imaging shows pulmonary edema and bilateral pleural
effusions. He has been started on IV diuresis and admitted for further evaluation and management of acute on chronic HFrEF.
Acute on chronic HFrEF:
- Has not had an adequate response to Lasix 80 mg IV twice daily, will transition to Lasix drip per nephrology recommendations
- Discontinue metolazone 2.5 mg daily
- Monitor I's and O's and daily weights
- Monitor electrolytes with diuresis and replete as needed
- Appreciate cardiology guidance
- Today he is much more willing to stay and cooperate with current treatment
JAY on CKD stage IV:
- Suspect due to cardiorenal syndrome
- Inadequate diuresis so far and creatinine continues to trend up
- Nephrology following, monitor for improvement with more aggressive diuresis
- Baseline creatinine appears to be around 2.0
Hyponatremia:
- Appears chronic, stable
- Monitor with diuresis
IDDM:
- Home regimen is Lantus 14 units at night and NovoLog 3 units with meals
- Will use Lantus 10 units at night and NovoLog 3 units with meals while inpatient
- Continue Accu-Cheks, additional sliding scale as needed
- Adjust regimen as needed
- Diabetic diet
A-fib:
- Chronic
- Currently rate controlled
- Continue anticoagulation with Eliquis
DVT prophylaxis: Eliquis
CODE STATUS: Full code
Total time spent on today's encounter was 53 minutes
Anticipated Discharge: > 48 hours
Subjective/Interval History
-
Date of Service: April 20, 2025
Patient was seen and examined at bedside this morning. Daily weight and renal function slightly uptrending today. He has not had a significant response to current IV Lasix dose. Planning to transition to Lasix drip. Postvoid residuals have been
minimal.
Objective Data
-
Labs:
Laboratory Results
04/20/25
05:51
Sodium 131 L
Potassium 3.7
Chloride 98
Carbon Dioxide 25
BUN 57 H
Creatinine 2.8 H
Glucose 128 H
Calcium 8.9
Vital Signs:
Vital Signs
Temp Pulse Resp BP Pulse Ox
97.3 F 88 19 115/68 93
04/20/25 11:49 04/20/25 11:49 04/20/25 11:49 04/20/25 11:49 04/20/25 11:49
I&O
04/19/25 04/20/25 04/21/25
06:59 06:59 06:59
Intake Total 960 / 960 1350 / 1350
Output Total 450 / 450 600 / 600
Balance 510 / 510 750 / 750
Review of Systems
-
History Source: Patient
All other systems: Reviewed and negative
Physical Exam
-
General: No Apparent Distress
--- NOTE | 2025-04-20 13:31 | W.PN.CARDCBS ---
Addendum entered and electronically signed by Nazario Sutton MD 04/20/25 14:03:
I saw and examined the patient.
The MILL TURNER or PA's note was reviewed and I agree with the note.
Comment: General: Well developed, well nourished in NAD.
Neck: Supple, no JVD, HJR, carotids +2 B/L, no bruits bilaterally.
Heart: Non displaced PMI, RRR, 3/6 basal systolic murmur, No S3, S4, no rubs.
Lungs: scattered rhonchi
Extremities: No clubbing, cyanosis or edema bilaterally.
Neuro: Grossly nonfocal, awake, alert and oriented x3.
He remains volume overloaded. He is now on Lasix drip. Hopefully renal function will improve with diuresis. He is over 20 pounds volume overloaded compared to the last hospitalization. If renal function improves we will do CT to evaluate lower
extremities for access for eventual TAVR. Total visit time 52 minutes including more than half of time spent explaining diagnosis, prognosis, and treatment options
Original Note:
Today's Communication / Plan
-
-Lasix gtt
Impression / Plan
-
PCP: Dr. Eason
Primary Brick Molder Hand: Dr. Sutton
Impression:
acute on chronic HFrEF
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
wt gain
LE edema
Admission 03/2025 for shock, anemia, GI bleed
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
Severe since 2019
s/p TAVR work-up with MPG 27 at time of cath and not recommended TAVR 01/2023
RHC/LHC 03/15/2025 MPG 28 mmHg, stable CAD, current TAVR eval in process
ICM EF 31%, echo 03/12/2025
History of reduced ejection fraction heart failure with recovered EF
CAD status post CABGx4 in setting of [place] in 2001
carotid disease s/p left CEA in 2012
s/p Medtronic single chamber ICD 2017
Persistent Afib
Chronic Eliquis OAC
DM 2
Gout
Smoker, ongoing tobacco use
Echo 08/23/2019: EF 30-35%, global hypokinesis with inferolateral, inferior and basal septal akinesis, mild MR, sev pressure 47/28 mmHg
ECHO 12/03/22: EF 50%, mild LVH, stage III diastolic dysfunction, mild MR, severe with peak/mean gradients 54/28 mmHg, KAELYN 0.8 cm�, trace AR, mild TR, PAP 64 mmHg, mild dilation of aorta measuring 4.0 cm
Echo 10/09/2024: EF 35 to 40%, moderate eccentric MR, severe peak/mean 60/34 mmHg and KAELYN 0.8 cm sq, mild aortic insufficiency, moderate TR with PAP 64 mmHg
Echo 03/12/2025: EF 31%, global hypokinesis, moderate MR, severe peak/mean 41/22 mmHg and KAELYN 0.7 cm sq, mild aortic regurgitation, moderate to severe TR with PAP 72 mmHg
Right heart cath/left heart cath 03/15/2025: RA 14, PA 67/28, PCWP 24, LVEDP 18, CO/CI 5.4/3.0, aortic valve with mean pressure gradient 28 mmHg, KAELYN 0.95 cm�.
LAD 100% occluded midportion, NAVAS to LAD versus diagonal is patent to either mid LAD or diagonal branch with anterograde and retrograde filling well-developed septal collaterals from RCA noted. Ramus occluded at origin distal fills via patent free
radial to ramus graft. Circumflex 100% occluded at origin, RCA occluded with patent SVG to PDA. Graft angiography: NAVAS as above, free radial to ramus widely patent, SVG to OM1 100% occluded, SVG to PDA 50 to 55% stenosis in the mid
Plan:
Acute HFrEF
-proBNP 18,500, chest x-ray with bilateral pleural effusions on admit 04/18/2025 w/29 lbs weight gain in past month with increasing LE edema, JAY on CKD
- -no significant response and worsening of JAY with creatinine up to 2.8 on Lasix 80 mg IV tid
-Started Lasix gtt today 04/20, Lasix 20 mg IV per hour per renal
-holding Metolazone
-baseline creat 2.0
-off GDMT due to previous hypotension 03/2025 admission. Was previously on carvedilol and spironolactone. Remains on Midodrine.
- Consider resuming carvedilol
Aortic stenosis-
-TAVR eval in process with plan for structural heart team to discuss his case today 04/20
- Aortic valve mean pressure gradient 28 mmHg on last cath 03/15/2025
- High risk candidate due to history of COPD
Acute on chronic kidney disease
- Creatinine up to 2.6 status post re-uptitration of his home doses of diuretics in outpt setting to Lasix 160 mg twice daily and metolazone 2.5 mg 3 times a week, and now up to 2.8 04/20 with Lasix 80 mg IV TID, changed to Lasix gtt per nephro 04/20
-appreciate renal input
AFIb
-permanent afib, HRs controlled
-telem personally reviewed: afib with freq PVCs, couplets, triplets
-Hgb stable on Eliquis
-Risk of rebleeding is high on anticoagulation, but risk of stroke a major concern. During 03/2025 admission it was decided to reduce Eliquis to 2.5 mg bid, but now back on 5 mg bid.
Elevated troponin
- Suspect nonischemic myocardial injury in setting of heart failure
-Patient denies chest pain
- Left heart cath 03/15/2025 with occluded SVG to OM1, otherwise patent grafts. See cath report
Agitation
-improved today
-using alprazolam PRN
Progress Note - Brick Molder Hand
Subjective
Date of Service: April 20, 2025
pt feels more calm/less agitated today
changed to Lasix gtt
Objective
Labs:
04/19/25 05:11
04/20/25 05:51
Labs
Hgb 10.6 g/dL (13.0-18.0) L 04/19/25 05:11
Hct 32.1 % (39.0-52.0) L 04/19/25 05:11
Plt Count 182 10^3/uL (130-400) 04/19/25 05:11
Sodium 131 mmol/L (135-145) L 04/20/25 05:51
Potassium 3.7 mmol/L (3.5-5.1) 04/20/25 05:51
BUN 57 mg/dl (9-20) H 04/20/25 05:51
Creatinine 2.8 mg/dL (0.7-1.3) H 04/20/25 05:51
Glucose 128 mg/dl (70-99) H 04/20/25 05:51
Troponins
04/18/25 04/18/25 04/19/25
18:44 23:30 05:11
Troponin I 0.081 H* 0.085 H* 0.087 H*
04/19/25
09:35
Troponin I 0.087 H*
Vital Signs and I&O:
Vital Signs
Temp Pulse Resp BP Pulse Ox
97.3 F 88 19 115/68 93
04/20/25 11:49 04/20/25 11:49 04/20/25 11:49 04/20/25 11:49 04/20/25 11:49
Vital Signs
Temp Pulse Resp BP Pulse Ox
97.3 F 88 19 115/68 93
04/20/25 11:49 04/20/25 11:49 04/20/25 11:49 04/20/25 11:49 04/20/25 11:49
Intake & Output
04/18/25 04/19/25 04/20/25 04/21/25
06:59 06:59 06:59 06:59
Intake Total 960 / 960 1350 / 1350
Output Total 450 / 450 600 / 600
Balance 510 / 510 750 / 750
Physical Exam
Physical Exam
GEN: No distress, awake, Ox3
HEENT: supple, anicteric, mmm
LUNGS: CTA, no wheezes/rales
CV: irreg, irreg, 3/6 ANA base
ABD: soft, BS+, NT/ND
EXT:1+ LE edema, firm
NEURO: Gross non-focal
SKIN: No rash
[2025-04-20] MEDS: NOVOLOG FLEXPEN-MODERATE RESISTANCE 1 UNITS SC (13:51)
[2025-04-20 16:40] LABS: Glucose - Point of Care 279 mg/dl (70-99)
[2025-04-20] MEDS: NOVOLOG FLEXPEN-MODERATE RESISTANCE 5 UNITS SC (17:55)
[2025-04-20 21:45] LABS: Glucose - Point of Care 203 mg/dl (70-99)
[2025-04-20] MEDS: LANTUS 0.1 UNITS SC (22:02)
[2025-04-20] MEDS: REMOVE NICOTINE PATCH 1 PATCH REMOVE (22:05)
--- NOTE | 2025-04-21 01:24 | PTCARENOTE ---
Yesterday pt stated that he did not receive eye drops which were scanned in from the night before. Pt
--- NOTE | 2025-04-21 01:27 | PTCARENOTE ---
Pt asked this RN when he was going to receive his insulin. RN already previously administered insulin. Pt reminded that insulin was already administered. Pt forgetful to details at times. Plan of care ongoing.
[2025-04-21] MEDS: LASIX 50 IV (02:56)
[2025-04-21 03:13] VITALS: BP 124/73
[2025-04-21 03:53] LABS: Blood Urea Nitrogen 56 mg/dl (9-20); Calcium 8.6 mg/dl (8.4-10.2); Carbon Dioxide 28 mmol/L (22-30); Chloride 95 mmol/L (98-107); Estimated Creatinine Clearance 21 ml/min; Glucose 195 mg/dl (70-99); Potassium 3.6 mmol/L (3.5-5.1); Sodium 130 mmol/L (135-145); eGFR 22.25
[2025-04-21 06:56] VITALS: BMI 29.6
[2025-04-21 08:23] LABS: Glucose - Point of Care 175 mg/dl (70-99)
[2025-04-21] MEDS: ZYLOPRIM 150 MG PO ×2 (08:27→19:33)
[2025-04-21] MEDS: LIPITOR 80 MG PO (08:27)
[2025-04-21] MEDS: KCL 20 MEQ PO ×3 (08:27→19:32)
[2025-04-21] MEDS: PROTONIX 40 MG PO ×2 (08:27→19:33)
[2025-04-21] MEDS: NICODERM TRANSDERMAL 14 MG TRANSDERM (08:28)
[2025-04-21] MEDS: ELIQUIS 5 MG PO ×2 (08:28→19:33)
[2025-04-21] MEDS: NOVOLOG FLEXPEN 3 UNITS SC ×3 (08:36→17:45)
[2025-04-21] MEDS: NOVOLOG FLEXPEN-MODERATE RESISTANCE 1 UNITS SC (08:36)
[2025-04-21 09:18] VITALS: BP 115/67
[2025-04-21] MEDS: XANAX 0.25 MG PO (09:51)
--- NOTE | 2025-04-21 10:28 | W.PN.NEPH.PH ---
Today's Communication / Plan
-
Maintain Lasix drip
Follow BMP
Replete potassium
Assessment/Plan
-
IMP:
Acute on Chronic HFrEF
Abnormal Troponin - Likely secondary to CHF
JAY on CKD 3bbaseline cr at 2-follows Dr Yates
Paroxysmal atrial fibrillation
Chronic hyponatremia
COPD without exacerbation
Chronic heart failure reduced EF 30%
CAD/CABG x 4 (2001)
Medtronic single-chamber ICD, 2018
Carotid disease -s/p left CEA 2012.
Essential hypertension
DM 2
Severe aortic stenosis -previously declined TAVR workup.
Hyperlipidemia
Gout
h/o GI bleed 03/2025 , known h/o AVMS
traumatic left-sided rib fractures -due to fall last admit in March
Plan:
JAY unchanged at 2.8
A/w acute on chr CHF also h/o severe
suspect cardiorenal , bladder scan 60cc, 600 cc urine output noted on high-dose IV diuretic
will maintain Lasix drip 20 mg/hr,now nonoliguric
TAVR eval per cards, noted no intervention currently
no emergent need of dialysis, he is not refusing but further discussion is limited due to pt non cooperative
with out intervention he will not be candidate for dialysis with high risk of hemodynamic collapse
Patient is at high risk with acute kidney injury persisting, with ongoing congestive heart failure despite high-dose diuretics and now transitioned to IV Lasix drip
-
-
Date of Service: April 21, 2025
CC / HPI / ROS
-
Chief Complaint:
Acute kidney injury
History of Present Illness:
Creatinine up to 2.8
Hemodynamically stable on midodrine
Remains on Lasix drip for decompensated congestive heart failure
Review of Systems:
Nonoliguric at 1750 cc
No fevers or chills
Shortness of breath noted
Weights down
Labs
-
Labs:
WBC 6.5 10^3/uL (4.8-10.8) 04/19/25 05:11
RBC 3.16 10^6/uL (4.70-6.10) L 04/19/25 05:11
Hgb 10.6 g/dL (13.0-18.0) L 04/19/25 05:11
Hct 32.1 % (39.0-52.0) L 04/19/25 05:11
Plt Count 182 10^3/uL (130-400) 04/19/25 05:11
eGFR 22.25 04/21/25 03:13
Xjv-T-Knfstkdtbzb Pept 91494 pg/ml 04/18/25 18:44
Albumin Cancelled 04/21/25 02:33
Physical Exam
-
Vital Signs:
Vital Signs
Temp Pulse Resp BP Pulse Ox
97.7 F 83 19 115/67 96
04/21/25 09:18 04/21/25 09:18 04/21/25 09:18 04/21/25 09:18 04/21/25 09:18
Cardiovascular:: Regular rate and rhythm
Respiratory:: Bilateral: Coarse (Decreased breath sounds at bases)
Lung Excursion:: Normal
Abdomen:: Nontender and Soft
Bowel Sounds:: Normal
Extremity Edema:: +1: Bilateral: (chronic)
Olea Catheter: No
--- NOTE | 2025-04-21 11:57 | W.PN.CARDCBS ---
Today's Communication / Plan
-
Continue attempts at diuresis with IV Lasix drip
When renal function has improved/stabilized will need lower extremity CT arteriogram to evaluate access for outpatient TAVR
Impression / Plan
-
PCP: Dr. Eason
Primary Wall Covering Installer: Dr. Sutton
Impression:
acute on chronic HFrEF
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
wt gain
LE edema
Admission 03/2025 for shock, anemia, GI bleed
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
Severe since 2018
s/p TAVR work-up with MPG 27 at time of cath and not recommended TAVR 01/2023
RHC/LHC 03/15/2025 MPG 28 mmHg, stable CAD, current TAVR eval in process
ICM EF 31%, echo 03/12/2025
History of reduced ejection fraction heart failure with recovered EF
CAD status post CABGx4 in setting of [place] in 2001
carotid disease s/p left CEA in 2012
s/p Medtronic single chamber ICD 2017
Persistent Afib
Chronic Eliquis OAC
DM 2
Gout
Smoker, ongoing tobacco use
Echo 08/23/2019: EF 30-35%, global hypokinesis with inferolateral, inferior and basal septal akinesis, mild MR, sev pressure 47/28 mmHg
ECHO 12/03/22: EF 50%, mild LVH, stage III diastolic dysfunction, mild MR, severe with peak/mean gradients 54/28 mmHg, KAELYN 0.8 cm�, trace AR, mild TR, PAP 64 mmHg, mild dilation of aorta measuring 4.0 cm
Echo 10/09/2024: EF 35 to 40%, moderate eccentric MR, severe peak/mean 60/34 mmHg and KAELYN 0.8 cm sq, mild aortic insufficiency, moderate TR with PAP 64 mmHg
Echo 03/12/2025: EF 31%, global hypokinesis, moderate MR, severe peak/mean 41/22 mmHg and KAELYN 0.7 cm sq, mild aortic regurgitation, moderate to severe TR with PAP 72 mmHg
Right heart cath/left heart cath 03/15/2025: RA 14, PA 67/28, PCWP 24, LVEDP 18, CO/CI 5.4/3.0, aortic valve with mean pressure gradient 28 mmHg, KAELYN 0.95 cm�.
LAD 100% occluded midportion, NAVAS to LAD versus diagonal is patent to either mid LAD or diagonal branch with anterograde and retrograde filling well-developed septal collaterals from RCA noted. Ramus occluded at origin distal fills via patent free
radial to ramus graft. Circumflex 100% occluded at origin, RCA occluded with patent SVG to PDA. Graft angiography: NAVAS as above, free radial to ramus widely patent, SVG to OM1 100% occluded, SVG to PDA 50 to 55% stenosis in the mid
Plan:
He remains volume overloaded on IV Lasix drip
Creatinine remains stable at 2.8 nephrology is helping to manage his diuretics
When renal function improves he will need CT of lower extremities to evaluate access for outpatient TAVR
Remains in rate controlled atrial fibrillation, continue Eliquis
Progress Note - Wall Covering Installer
Subjective
Date of Service: April 21, 2025
No complaints
Objective
Labs:
04/19/25 05:11
Labs
Hgb 10.6 g/dL (13.0-18.0) L 04/19/25 05:11
Hct 32.1 % (39.0-52.0) L 04/19/25 05:11
Plt Count 182 10^3/uL (130-400) 04/19/25 05:11
Sodium Cancelled 04/21/25 10:06
Potassium Cancelled 04/21/25 10:06
BUN Cancelled 04/21/25 10:06
Creatinine Cancelled 04/21/25 10:06
Glucose Cancelled 04/21/25 10:06
Troponins
04/18/25 04/18/2504/19/25
18:44 23:30 05:11
Troponin I 0.081 H* 0.085 H* 0.087 H*
04/19/25
09:35
Troponin I 0.087 H*
Vital Signs and I&O:
Vital Signs
Temp Pulse Resp BP Pulse Ox
97.7 F 83 19 115/67 96
04/21/25 09:18 04/21/25 09:18 04/21/25 09:18 04/21/25 09:18 04/21/25 09:18
Vital Signs
Temp Pulse Resp BP Pulse Ox
97.7 F 83 19 115/67 96
04/21/25 09:18 04/21/25 09:18 04/21/25 09:18 04/21/25 09:18 04/21/25 09:18
Intake & Output
04/19/25 04/20/25 04/21/25 04/22/25
06:59 06:59 06:59 06:59
Intake Total 960 / 960 1350 / 1350 780 / 780
Output Total 450 / 450 600 / 600 1750 / 1750
Balance 510 / 510 750 / 750 -970 / -970
Physical Exam
Physical Exam
General: Well developed, well nourished in NAD.
Neck: Supple, no JVD, HJR, carotids +2 B/L, no bruits bilaterally.
Heart: Non displaced PMI, irregular, 2/6 basal systolic murmur, No S3, S4, no rubs.
Lungs: Scattered rhonchi
Extremities: No clubbing, cyanosis or edema bilaterally.
Neuro: Grossly nonfocal, awake, alert and oriented x3.
[2025-04-21 12:00] LABS: Blood Urea Nitrogen 62 mg/dl (9-20); Calcium 8.9 mg/dl (8.4-10.2); Carbon Dioxide 30 mmol/L (22-30); Chloride 93 mmol/L (98-107); Estimated Creatinine Clearance 21 ml/min; Glucose 231 mg/dl (70-99); Magnesium 1.9 mg/dl (1.6-2.3); Potassium 3.8 mmol/L (3.5-5.1); Sodium 129 mmol/L (135-145); eGFR 22.25
[2025-04-21 13:00] LABS: Glucose - Point of Care 239 mg/dl (70-99)
[2025-04-21] MEDS: NON-FORMULARY ITEM 1 UNIT BOTH EYES ×2 (13:24→21:25)
[2025-04-21 13:27] VITALS: BP 88/70
--- NOTE | 2025-04-21 13:47 | W.PN.HOSP.TC ---
Today's Communication/Plan
-
Assessment / Plan
Assessment / Plan
General: No Apparent Distress, Comfortable and Conversant
HEENT: NormoCephalic, Moist mucous membranes, Atraumatic, nasal cannula in place
Respiratory: Mild rales bilaterally, decreased breath sounds at the bilateral bases, Non Labored Respirations
Cardiac: Irregular rhythm, controlled rate around 80; 2/6 systolic murmur
GI: Soft, Non Tender, Non Distended and Normal Bowel Sounds
Musculoskeletal: 1+ lower extremity edema, no deformity
Skin: Warm and dry
: NO Olea
Neuro: Awake, Alert, Nonfocal/grossly intact
Psych: Calm and cooperative
Mr. An is a 79-year-old male with a medical history of CAD (status post CABG and stents), HFrEF, severe , A-fib (on Eliquis), carotid artery stenosis (status post left CEA), IDDM, and CKD stage IV who presented with increasing lower extremity
edema and abrupt weight gain. His home diuretic regimen has been altered frequently per patient report. At time of presentation he has approximately 20 pounds over his dry weight. Chest imaging shows pulmonary edema and bilateral pleural
effusions. He has been started on IV diuresis and admitted for further evaluation and management of acute on chronic HFrEF.
Acute on chronic HFrEF:
- Improved urine output with transition to IV Lasix drip, patient reports improvement in respiratory status
- Monitor I's and O's and daily weights
- Monitor electrolytes with diuresis and replete as needed
- Appreciate cardiology guidance, recommending CT arteriogram of lower extremities when renal function is stabilized to further evaluate access for outpatient TAVR
JAY on CKD stage IV:
- Suspect due to cardiorenal syndrome
- Renal function appears to have stabilized now with transitioning to IV Lasix drip, creatinine 2.8 past 3 days now with improved urine output
- Baseline creatinine appears to be around 2.0
Hyponatremia:
- Appears chronic, stable
- Monitor with diuresis
IDDM:
- Home regimen is Lantus 14 units at night and NovoLog 3 units with meals
- Have been giving Lantus 10 units at night and NovoLog 3 units with meals for the past few days, we will increase Lantus back to home dose of 14 units for better control
- Continue Accu-Cheks, additional sliding scale as needed
- Adjust regimen as needed
- Diabetic diet
A-fib:
- Chronic
- Currently rate controlled
- Continue anticoagulation with Eliquis
DVT prophylaxis: Eliquis
CODE STATUS: Full code
Total time spent on today's encounter was 55 minutes
Anticipated Discharge: > 48 hours
Subjective/Interval History
-
Date of Service: April 21, 2025
Patient was seen and examined at bedside this morning. Feeling well with improved urinary output following initiation of Lasix drip.
Objective Data
-
Labs:
Laboratory Results
04/21/25 04/21/25 04/21/25
02:33 03:13 10:06
Sodium Cancelled 130 L Cancelled
Potassium Cancelled 3.6 Cancelled
Chloride Cancelled 95 L Cancelled
Carbon Dioxide Cancelled 28 Cancelled
BUN Cancelled 56 H Cancelled
Creatinine Cancelled 2.8 H Cancelled
Glucose Cancelled 195 H Cancelled
Calcium Cancelled 8.6 Cancelled
Total Bilirubin Cancelled
AST Cancelled
ALT Cancelled
Alkaline Phosphatase Cancelled
04/21/25
11:18
Sodium 129 L
Potassium 3.8
Chloride 93 L
Carbon Dioxide 30
BUN 62 H
Creatinine 2.8 H
Glucose 231 H
Calcium 8.9
Total Bilirubin
AST
ALT
Alkaline Phosphatase
Vital Signs:
Vital Signs
Temp Pulse Resp BP Pulse Ox
97.4 F 80 19 88/70 91
04/21/25 13:27 04/21/25 13:27 04/21/25 13:27 04/21/25 13:27 04/21/25 13:27
I&O
04/20/25 04/21/25 04/22/25
06:59 06:59 06:59
Intake Total 1350 / 1350 780 / 780
Output Total 600 / 600 1750 / 1750
Balance 750 / 750 -970 / -970
Review of Systems
-
History Source: Patient
All other systems: Reviewed and negative
Physical Exam
-
General: No Apparent Distress
[2025-04-21] MEDS: NOVOLOG FLEXPEN-MODERATE RESISTANCE 3 UNITS SC ×2 (14:36→17:45)
[2025-04-21 16:26] VITALS: BP 109/73
[2025-04-21 16:40] LABS: Glucose - Point of Care 249 mg/dl (70-99)
[2025-04-21 19:00] VITALS: BP 110/63
[2025-04-21 21:20] LABS: Glucose - Point of Care 257 mg/dl (70-99)
[2025-04-21] MEDS: LANTUS 0.14 UNITS SC (21:23)
[2025-04-21] MEDS: REMOVE NICOTINE PATCH 1 PATCH REMOVE (21:26)
[2025-04-21 23:00] VITALS: BP 120/65
[2025-04-21] MEDS: AMBIEN 5 MG PO (23:10)
[2025-04-22] MEDS: LASIX 50 IV ×2 (02:10→23:46)
[2025-04-22 03:54] VITALS: BP 132/72
[2025-04-22 06:00] VITALS: BMI 29.4
[2025-04-22 07:26] LABS: Glucose - Point of Care 188 mg/dl (70-99)
[2025-04-22 07:56] LABS: Blood Urea Nitrogen 58 mg/dl (9-20); Calcium 8.4 mg/dl (8.4-10.2); Carbon Dioxide 27 mmol/L (22-30); Chloride 95 mmol/L (98-107); Estimated Creatinine Clearance 21 ml/min; Glucose 173 mg/dl (70-99); Potassium 3.2 mmol/L (3.5-5.1); Sodium 129 mmol/L (135-145); eGFR 22.25
[2025-04-22 08:24] VITALS: BP 108/61
[2025-04-22] MEDS: NICODERM TRANSDERMAL 14 MG TRANSDERM (08:47)
[2025-04-22] MEDS: LIPITOR 80 MG PO (08:47)
[2025-04-22] MEDS: ZYLOPRIM 150 MG PO ×2 (08:47→21:22)
[2025-04-22] MEDS: PROTONIX 40 MG PO ×2 (08:47→21:23)
[2025-04-22] MEDS: KCL 20 MEQ PO ×3 (08:48→21:22)
[2025-04-22] MEDS: ELIQUIS 5 MG PO ×2 (08:49→21:22)
[2025-04-22] MEDS: NOVOLOG FLEXPEN 3 UNITS SC ×3 (08:53→18:51)
[2025-04-22] MEDS: NOVOLOG FLEXPEN-MODERATE RESISTANCE 1 UNITS SC (08:54)
--- NOTE | 2025-04-22 09:58 | W.PN.CARDCBS ---
Today's Communication / Plan
-
Continue IV Lasix for volume overload with the help of nephrology
Now hyponatremic and perhaps may be a candidate for Samsca
When renal function is stabilized he will need lower extremity CT arteriogram to evaluate femoral access for outpatient TAVR
Impression / Plan
-
PCP: Dr. Eason
Primary Inside Sales Representative: Dr. Sutton
Impression:
acute on chronic HFrEF
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
wt gain
LE edema
Admission 03/2025 for shock, anemia, GI bleed
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
Severe since 2018
s/p TAVR work-up with MPG 27 at time of cath and not recommended TAVR 01/2023
RHC/LHC 03/15/2025 MPG 28 mmHg, stable CAD, current TAVR eval in process
ICM EF 31%, echo 03/12/2025
History of reduced ejection fraction heart failure with recovered EF
CAD status post CABGx4 in setting of [place] in 2001
carotid disease s/p left CEA in 2012
s/p Medtronic single chamber ICD 2017
Persistent Afib
Chronic Eliquis OAC
DM 2
Gout
Smoker, ongoing tobacco use
Echo 08/23/2019: EF 30-35%, global hypokinesis with inferolateral, inferior and basal septal akinesis, mild MR, sev pressure 47/28 mmHg
ECHO 12/03/22: EF 50%, mild LVH, stage III diastolic dysfunction, mild MR, severe with peak/mean gradients 54/28 mmHg, KAELYN 0.8 cm�, trace AR, mild TR, PAP 64 mmHg, mild dilation of aorta measuring 4.0 cm
Echo 10/09/2024: EF 35 to 40%, moderate eccentric MR, severe peak/mean 60/34 mmHg and KAELYN 0.8 cm sq, mild aortic insufficiency, moderate TR with PAP 64 mmHg
Echo 03/12/2025: EF 31%, global hypokinesis, moderate MR, severe peak/mean 41/22 mmHg and KAELYN 0.7 cm sq, mild aortic regurgitation, moderate to severe TR with PAP 72 mmHg
Right heart cath/left heart cath 03/15/2025: RA 14, PA 67/28, PCWP 24, LVEDP 18, CO/CI 5.4/3.0, aortic valve with mean pressure gradient 28 mmHg, KAELYN 0.95 cm�.
LAD 100% occluded midportion, NAVAS to LAD versus diagonal is patent to either mid LAD or diagonal branch with anterograde and retrograde filling well-developed septal collaterals from RCA noted. Ramus occluded at origin distal fills via patent free
radial to ramus graft. Circumflex 100% occluded at origin, RCA occluded with patent SVG to PDA. Graft angiography: NAVAS as above, free radial to ramus widely patent, SVG to OM1 100% occluded, SVG to PDA 50 to 55% stenosis in the mid
Plan:
He remains volume overloaded despite IV Lasix drip. Weight has decreased slowly and is down 2 pounds in the past 24 hours. He is now hyponatremic and perhaps could be a candidate for Samsca. Nephrology continues to help manage diuretics.
When renal function improves he will need CT of lower extremities to evaluate access for outpatient TAVR
Remains in rate controlled atrial fibrillation, continue Eliquis
Progress Note - Inside Sales Representative
Subjective
Date of Service: April 22, 2025
No chest pain or shortness of breath
Objective
Labs:
04/19/25 05:11
04/22/25 06:08
Labs
Hgb 10.6 g/dL (13.0-18.0) L 04/19/25 05:11
Hct 32.1 % (39.0-52.0) L 04/19/25 05:11
Plt Count 182 10^3/uL (130-400) 04/19/25 05:11
Sodium 129 mmol/L (135-145) L 04/22/25 06:08
Potassium 3.2 mmol/L (3.5-5.1) L 04/22/25 06:08
BUN 58 mg/dl (9-20) H 04/22/25 06:08
Creatinine 2.8 mg/dL (0.7-1.3) H 04/22/25 06:08
Glucose 173 mg/dl (70-99) H 04/22/25 06:08
Troponins
04/19/25
09:35
Troponin I 0.087 H*
Vital Signs and I&O:
Vital Signs
Temp Pulse Resp BP Pulse Ox
97.5 F 99 19 108/61 95
04/22/25 08:24 04/22/25 08:24 04/22/25 08:24 04/22/25 08:24 04/22/25 08:24
Vital Signs
Temp Pulse Resp BP Pulse Ox
97.5 F 99 19 108/61 95
04/22/25 08:24 04/22/25 08:24 04/22/25 08:24 04/22/25 08:24 04/22/25 08:24
Intake & Output
04/20/25 04/21/25 04/22/25 04/23/25
06:59 06:59 06:59 06:59
Intake Total 1350 / 1350 780 / 780 1144 / 1144 180 / 180
Output Total 600 / 600 1750 / 1750 950 / 950
Balance 750 / 750 -970 / -970 194 / 194 180 / 180
Physical Exam
Physical Exam
General: Well developed, well nourished in NAD.
Neck: Supple, no JVD, HJR, carotids +2 B/L, no bruits bilaterally.
Heart: Non displaced PMI, RRR, no murmurs, No S3, S4, no rubs.
Lungs: Scattered rhonchi throughout
Extremities: Severe edema of lower extremities bilaterally with chronic venous stasis changes
Neuro: Grossly nonfocal, awake, alert and oriented x3.
--- NOTE | 2025-04-22 10:24 | W.PN.NEPH.PH ---
Today's Communication / Plan
-
Replete potassium
Will titrate up Lasix drip to 40 mg/h given poor response to Lasix drip ~ 1liter
Weights with gradual reduction
Assessment/Plan
-
IMP:
Acute on Chronic HFrEF
Abnormal Troponin - Likely secondary to CHF
JAY on CKD 3bbaseline cr at 2-follows Dr Yates
Paroxysmal atrial fibrillation
Chronic hyponatremia
COPD without exacerbation
Chronic heart failure reduced EF 30%
CAD/CABG x 4 (2001)
Medtronic single-chamber ICD, 2017
Carotid disease -s/p left CEA 2012.
Essential hypertension
DM 2
Severe aortic stenosis -previously declined TAVR workup.
Hyperlipidemia
Gout
h/o GI bleed 03/2025 , known h/o AVMS
traumatic left-sided rib fractures -due to fall last admit in March
Plan:
JAY unchanged at 2.8
A/w acute on chr CHF also h/o severe
suspect cardiorenal , bladder scan 60cc,has condom catheter 950 cc urine output noted on lasix gtt 2mg/hr
will escalate Lasix drip 40 mg/hr,now nonoliguric
TAVR eval per cards, noted no intervention currently
no emergent need of dialysis, he is not refusing but further discussion is limited due to pt non cooperative
with out intervention he will not be candidate for dialysis with high risk of hemodynamic collapse
Patient is at high risk with acute kidney injury persisting, with ongoing congestive heart failure despite high-dose diuretics and now transitioned to IV Lasix drip
-
-
Date of Service: April 22, 2025
CC / HPI / ROS
-
Chief Complaint:
Acute kidney injury
History of Present Illness:
Creatinine up to 2.8
Hemodynamically stable on midodrine
Remains on Lasix drip for decompensated congestive heart failure
Review of Systems:
Nonoliguric at 950 cc
No fevers or chills
Shortness of breath noted
Weights down
Labs
-
Labs:
WBC 6.5 10^3/uL (4.8-10.8) 04/19/25 05:11
RBC 3.16 10^6/uL (4.70-6.10) L 04/19/25 05:11
Hgb 10.6 g/dL (13.0-18.0) L 04/19/25 05:11
Hct 32.1 % (39.0-52.0) L 04/19/25 05:11
Plt Count 182 10^3/uL (130-400) 04/19/25 05:11
Sodium 129 mmol/L (135-145) L 04/22/25 06:08
Potassium 3.2 mmol/L (3.5-5.1) L 04/22/25 06:08
Chloride 95 mmol/L (98-107) L 04/22/25 06:08
Carbon Dioxide 27 mmol/L (22-30) 04/22/25 06:08
BUN 58 mg/dl (9-20) H 04/22/25 06:08
Creatinine 2.8 mg/dL (0.7-1.3) H 04/22/25 06:08
eGFR 22.25 04/22/25 06:08
Glucose 173 mg/dl (70-99) H 04/22/25 06:08
Calcium 8.4 mg/dl (8.4-10.2) 04/22/25 06:08
Phosphorus 4.1 mg/dl (2.5-4.5) 04/21/25 11:18
Gwp-X-Cydrmkjwaah Pept [id number] pg/ml 04/18/25 18:44
Albumin Cancelled 04/21/25 02:33
Physical Exam
-
Vital Signs:
Vital Signs
Temp Pulse Resp BP Pulse Ox
97.5 F 99 19 108/61 95
04/22/25 08:24 04/22/25 08:24 04/22/25 08:24 04/22/25 08:24 04/22/25 08:24
Cardiovascular:: Regular rate and rhythm
Respiratory:: Bilateral: Coarse (Decreased breath sounds at bases)
Lung Excursion:: Normal
Abdomen:: Nontender and Soft
Bowel Sounds:: Normal
Extremity Edema:: +1: Bilateral: (chronic)
Olea Catheter: No
[2025-04-22 11:56] LABS: Glucose - Point of Care 211 mg/dl (70-99)
[2025-04-22 12:09] VITALS: BP 132/75
[2025-04-22] MEDS: NOVOLOG FLEXPEN-MODERATE RESISTANCE 3 UNITS SC (12:45)
[2025-04-22] MEDS: NON-FORMULARY ITEM 1 UNIT BOTH EYES ×2 (12:49→21:26)
--- NOTE | 2025-04-22 13:10 | W.PN.HOSP.TC ---
Today's Communication/Plan
-
Assessment / Plan
Assessment / Plan
General: No Apparent Distress, Comfortable and Conversant
HEENT: NormoCephalic, Moist mucous membranes, Atraumatic, nasal cannula in place
Respiratory: Mild rales bilaterally, decreased breath sounds at the bilateral bases, Non Labored Respirations
Cardiac: Irregular rhythm, controlled rate around 85; 2/6 systolic murmur
GI: Soft, Non Tender, Non Distended and Normal Bowel Sounds
Musculoskeletal: 1+ lower extremity edema, no deformity
Skin: Warm and dry
: Condom catheter in place draining clear yellow urine
Neuro: Awake, Alert, Nonfocal/grossly intact
Psych: Calm and cooperative
Mr. An is a 79-year-old male with a medical history of CAD (status post CABG and stents), HFrEF, severe , A-fib (on Eliquis), carotid artery stenosis (status post left CEA), IDDM, and CKD stage IV who presented with increasing lower extremity
edema and abrupt weight gain. His home diuretic regimen has been altered frequently per patient report. At time of presentation he has approximately 20 pounds over his dry weight. Chest imaging shows pulmonary edema and bilateral pleural
effusions. He has been started on IV diuresis and admitted for further evaluation and management of acute on chronic HFrEF.
Acute on chronic HFrEF:
- Minimal improvement with IV Lasix drip past 24 hours, increased rate to 40 mg/h
- Condom catheter now in place for closer management of urine output
- Continue to monitor I's and O's and daily weights
- Aggressively replete electrolytes with diuresis and replete as needed
- Appreciate cardiology guidance, recommending CT arteriogram of lower extremities when renal function is stabilized to further evaluate access for outpatient TAVR
JAY on CKD stage IV:
- Suspect due to cardiorenal syndrome
- Renal function appears to have stabilized now with transitioning to IV Lasix drip, creatinine 2.8 past 4 days now with improved urine output
- Baseline creatinine appears to be around 2.0
Hyponatremia:
- Appears chronic, stable
- Suspect hypervolemic
- Monitor with diuresis
IDDM:
- Home regimen is Lantus 14 units at night and NovoLog 3 units with meals
- Have been giving Lantus 10 units at night and NovoLog 3 units with meals for the past few days, we will increase Lantus back to home dose of 14 units for better control
- Continue Accu-Cheks, additional sliding scale as needed
- Adjust regimen as needed
- Diabetic diet
A-fib:
- Chronic
- Currently rate controlled
- Continue anticoagulation with Eliquis
DVT prophylaxis: Eliquis
CODE STATUS: Full code
Total time spent on today's encounter was 52 minutes
Anticipated Discharge: > 48 hours
Subjective/Interval History
-
Date of Service: April 22, 2025
Patient was seen and examined at bedside this morning. Remains on Lasix drip. Condom catheter now in place for better management of urine output. Renal function stable with creatinine 2.8.
Objective Data
-
Labs:
Laboratory Results
04/22/25
06:08
Sodium 129 L
Potassium 3.2 L
Chloride 95 L
Carbon Dioxide 27
BUN 58 H
Creatinine 2.8 H
Glucose 173 H
Calcium 8.4
Vital Signs:
Vital Signs
Temp Pulse Resp BP Pulse Ox
98.8 F 92 19 132/75 93
04/22/25 12:09 04/22/25 12:09 04/22/25 12:09 04/22/25 12:09 04/22/25 12:09
I&O
04/21/25 04/22/25 04/23/25
06:59 06:59 06:59
Intake Total 780 / 780 1144 / 1144 180 / 180
Output Total 1750 / 1750 950 / 950 200 / 200
Balance -970 / -970 194 / 194 -20 / -20
Review of Systems
-
History Source: Patient
All other systems: Reviewed and negative
Physical Exam
-
General: No Apparent Distress
[2025-04-22 16:09] VITALS: BP 133/70
[2025-04-22 16:31] LABS: Glucose - Point of Care 296 mg/dl (70-99)
[2025-04-22] MEDS: NOVOLOG FLEXPEN-MODERATE RESISTANCE 5 UNITS SC (18:50)
[2025-04-22 19:52] VITALS: BP 126/75
[2025-04-22 21:20] LABS: Glucose - Point of Care 319 mg/dl (70-99)
[2025-04-22] MEDS: LANTUS 0.14 UNITS SC (21:23)
[2025-04-22] MEDS: AMBIEN 5 MG PO (21:23)
[2025-04-22] MEDS: REMOVE NICOTINE PATCH 1 PATCH REMOVE (21:23)
[2025-04-22 23:33] VITALS: BP 108/71
[2025-04-23 03:10] VITALS: BP 110/69
[2025-04-23 07:00] VITALS: BP 108/69
--- NOTE | 2025-04-23 07:39 | W.PN.HOSP.TC ---
Addendum entered and electronically signed by Nazario Castelan DO 04/23/25 15:03:
CDI: Acute hypoxemic respiratory failure
Original Note:
Today's Communication/Plan
-
Replete potassium
Check magnesium in the a.m.
PT OT
Assessment / Plan
Assessment / Plan
79-year-old male with a medical history of CAD (status post CABG and stents), HFrEF, severe , A-fib (on Eliquis), carotid artery stenosis (status post left CEA), IDDM, and CKD stage IV who presented with increasing lower extremity edema and abrupt
weight gain. His home diuretic regimen has been altered frequently per patient report. At time of presentation he has approximately 20 pounds over his dry weight. Chest imaging shows pulmonary edema and bilateral pleural effusions. He has been
started on IV diuresis and admitted for further evaluation and management of acute on chronic HFrEF.
#Acute on chronic HFrEF:
- IV Lasix drip on increased rate to 40 mg/h
- Condom catheter now in place for closer management of urine output
- Continue to monitor I's and O's and daily weights; 1.7kg increase from yesterday
- Aggressively replete electrolytes with diuresis and replete as needed
- Appreciate cardiology guidance, recommending CT arteriogram of lower extremities when renal function is stabilized to further evaluate access for outpatient TAVR
#JAY on CKD stage IV:
- Suspect due to cardiorenal syndrome
- Renal function appears to have stabilized now on to IV Lasix drip, creatinine 2.7
- Baseline creatinine appears to be around 2.0
- ?? acetazolamide vs tolvaptan?
#Hyponatremia:
- Appears chronic, stable
- Suspect hypervolemic
- Monitor with diuresis
# Hypokalemia
- 80 mEq IV KCl today
- Recheck in the a.m.; recheck mag in the a.m.
#IDDM:
- Home regimen is Lantus 14 units at night and NovoLog 3 units with meals
- Have been giving Lantus 10 units at night and NovoLog 3 units with meals for the past few days, we will increase Lantus back to home dose of 14 units for better control
- Continue Accu-Cheks, additional sliding scale as needed
- Adjust regimen as needed
- Diabetic diet
#A-fib:
- Chronic
- Currently rate controlled
- Continue anticoagulation with Eliquis
DVT prophylaxis: Eliquis
CODE STATUS: Full code
Anticipated Discharge: Within 24 hours
Subjective/Interval History
-
Date of Service: April 23, 2025
Seen and examined at bedside. Patient offers no new complaints. On supplemental O2 5 L. AFVSS.
Objective Data
-
Labs:
Laboratory Results
04/23/25
07:15
Sodium Pending
Potassium Pending
Chloride Pending
Carbon Dioxide Pending
BUN Pending
Creatinine Pending
Glucose Pending
Calcium Pending
Vital Signs:
Vital Signs
Temp Pulse Resp BP Pulse Ox
97.6 F 104 20 110/69 92
04/23/25 03:10 04/23/25 03:10 04/23/25 03:10 04/23/25 03:10 04/23/25 03:10
I&O
04/22/25 04/23/25 04/24/25
06:59 06:59 06:59
Intake Total 1144 / 1144 1800 / 1800
Output Total 950 / 950 600 / 600
Balance 194 / 194 1200 / 1200
Review of Systems
-
History Source: Patient
All other systems: Reviewed and negative (Except as documented)
Physical Exam
-
General: No Apparent Distress, Comfortable and Conversant
HEENT: Normocephalic
Respiratory: Rales, Decreased Breath Sounds (Bilateral bases) and Other (Supplemental O2 5 L via nasal cannula)
Cardiac: Irregular Rhythm
GI: Soft and Nontender
Genito-urinary: Other (Current cath in place)
Musculoskeletal: Other (1+ bilateral lower extremity edema)
Neuro: Awake, Alert and Oriented
Psych: Calm
Data Reviewed
-
Labs: Labs Reviewed by me, Discussed with Physician and Discussed with Patient
Old Records: Reviewed
[2025-04-23 07:40] LABS: Glucose - Point of Care 175 mg/dl (70-99)
[2025-04-23] MEDS: NOVOLOG FLEXPEN 3 UNITS SC ×2 (08:28→12:53)
[2025-04-23] MEDS: NOVOLOG FLEXPEN-MODERATE RESISTANCE 1 UNITS SC ×2 (08:29→17:21)
[2025-04-23] MEDS: LIPITOR 80 MG PO (08:29)
[2025-04-23] MEDS: ZYLOPRIM 150 MG PO ×2 (08:29→20:24)
[2025-04-23] MEDS: ELIQUIS 5 MG PO ×2 (08:29→20:24)
[2025-04-23] MEDS: KCL 20 MEQ PO ×2 (08:29→20:24)
[2025-04-23] MEDS: NICODERM TRANSDERMAL 14 MG TRANSDERM (08:30)
[2025-04-23] MEDS: PROTONIX 40 MG PO ×2 (08:30→20:24)
[2025-04-23 09:50] LABS: Blood Urea Nitrogen 59 mg/dl (9-20); Calcium 8.9 mg/dl (8.4-10.2); Carbon Dioxide 31 mmol/L (22-30); Chloride 92 mmol/L (98-107); Estimated Creatinine Clearance 22 ml/min; Glucose 241 mg/dl (70-99); Potassium 3.2 mmol/L (3.5-5.1); Sodium 131 mmol/L (135-145); eGFR 23.25
[2025-04-23 11:00] VITALS: BP 98/62
[2025-04-23 11:48] LABS: Glucose - Point of Care 264 mg/dl (70-99)
[2025-04-23] MEDS: KCL 270 MEQ IV ×2 (12:43→17:23)
[2025-04-23] MEDS: NOVOLOG FLEXPEN-MODERATE RESISTANCE 5 UNITS SC (12:54)
[2025-04-23] MEDS: NON-FORMULARY ITEM 1 UNIT BOTH EYES ×2 (12:57→21:59)
--- NOTE | 2025-04-23 13:01 | W.PN.NEPH.PH ---
Today's Communication / Plan
-
Add metolazone
Assessment/Plan
-
IMP:
Acute on Chronic HFrEF
Abnormal Troponin - Likely secondary to CHF
JAY on CKD 3bbaseline cr at 2-follows Dr Yates
Paroxysmal atrial fibrillation
Chronic hyponatremia
COPD without exacerbation
Chronic heart failure reduced EF 30%
CAD/CABG x 4 (2001)
Medtronic single-chamber ICD, 2018
Carotid disease -s/p left CEA 2012.
Essential hypertension
DM 2
Severe aortic stenosis -previously declined TAVR workup.
Hyperlipidemia
Gout
h/o GI bleed 03/2025 , known h/o AVMS
traumatic left-sided rib fractures -due to fall last admit in March
Plan:
JAY remains 2.7
A/w acute on chr CHF also h/o severe
TAVR eval per cards, now appears pursuing TAVR pending CT to evaluate femoral access
no emergent need of dialysis, he is not refusing but further discussion is limited due to pt non cooperative
with out intervention he will not be candidate for dialysis with high risk of hemodynamic collapse
Patient is at high risk with acute kidney injury persisting, with ongoing congestive heart failure despite high-dose diuretics and now transitioned to IV Lasix drip though very minimal response
No indication for Samsca
Continue diuresing for another 24 hours
Will add metolazone
Patient weight is significantly elevated from last month admission 10-12kg
-
-
Date of Service: April 23, 2025
CC / HPI / ROS
-
Chief Complaint:
Acute kidney injury
History of Present Illness:
Creatinine up to 2.8
Hemodynamically stable on midodrine
Remains on Lasix drip for decompensated congestive heart failure
Review of Systems:
Nonoliguric at 950 cc
No fevers or chills
Shortness of breath noted
Weights are stagnant
Labs
-
Labs:
WBC 6.5 10^3/uL (4.8-10.8) 04/19/25 05:11
RBC 3.16 10^6/uL (4.70-6.10) L 04/19/25 05:11
Hgb 10.6 g/dL (13.0-18.0) L 04/19/25 05:11
Hct 32.1 % (39.0-52.0) L 04/19/25 05:11
Plt Count 182 10^3/uL (130-400) 04/19/25 05:11
Sodium 131 mmol/L (135-145) L 04/23/25 09:14
Potassium 3.2 mmol/L (3.5-5.1) L 04/23/25 09:14
Chloride 92 mmol/L (98-107) L 04/23/25 09:14
Carbon Dioxide 31 mmol/L (22-30) H 04/23/25 09:14
BUN 59 mg/dl (9-20) H 04/23/25 09:14
Creatinine 2.7 mg/dL (0.7-1.3) H 04/23/25 09:14
eGFR 23.25 04/23/25 09:14
Glucose 241 mg/dl (70-99) H 04/23/25 09:14
Calcium 8.9 mg/dl (8.4-10.2) 04/23/25 09:14
Phosphorus 4.1 mg/dl (2.5-4.5) 04/21/25 11:18
Udk-R-Eyszxkhdsvj Pept [id number] pg/ml 04/18/25 18:44
Albumin Cancelled 04/21/25 02:33
Physical Exam
-
Vital Signs:
Vital Signs
Temp Pulse Resp BP Pulse Ox
98.2 F 90 20 98/62 98
04/23/25 11:00 04/23/25 11:00 04/23/25 11:00 04/23/25 11:00 04/23/25 11:05
Cardiovascular:: Regular rate and rhythm
Respiratory:: Bilateral: Coarse (Decreased breath sounds at bases)
Lung Excursion:: Normal
Abdomen:: Nontender and Soft
Bowel Sounds:: Normal
Extremity Edema:: +1: Bilateral: (chronic)
Olea Catheter: No
--- NOTE | 2025-04-23 13:30 | PN.CDI ---
CDI
- -
CDI:
Physician Documentation Request
Admit Date: 04/18/25 21:01
Dear Doctor Denise,
04/23 Hospitalist PN 'Acute on chronic HFrEF: - IV Lasix drip on increased rate to 40 mg/h...On supplemental O2 5 L. '
04/23 Nephrology PN: 'Shortness of breath noted'
Selected Entries
04/21/25
09:18 04/22/25
23:33 04/23/25
11:00
Nasal Cannula flow liters per minute 5 4 5
Clarify which of the following accurately represents the patient's respiratory status:
Acute hypoxic respiratory failure
Hypoxia
Other
Additional information for Respiratory Failure:
Recognized criteria for Respiratory Failure (Source: Selvin Cahvez 2018July 26.
Documentation tips: Acute Respiratory Failure, The Hospitalist.)
ABGs: (1 or more) Symptoms Please indicate type if known
1. p)2 <60 or RA SPO2 <91% on RA 1. Tachypnea, SOB, dyspnea Hypoxic
2. pCO2 >45 and pH <7.35 2. Use of accessory muscles Hypercapnic
3. pO2 decrease of pCO2 increase by 3. Pallor or cyanosis Hypoxic and Hypercapnic
10 mmHg from baseline if known 4. Anxiety or restlessness Unable to determine
4. P/F Ratio (pO2/FiO2)nless than 300 5. Unable to speak in full sentences
Use of terms such as suspected, likely, concern for, or probable (associated with a specific diagnosis that is being evaluated, monitored, or treated as if it exists) are acceptable and can be coded in the inpatient setting, when documented at the
time of discharge.
Thank you,
Mary Pope RN, BSN
CDI Specialist
Available via [place] text
Please use your independent medical judgment in providing your response.
--- NOTE | 2025-04-23 13:37 | W.PN.CARDCBS ---
Addendum entered and electronically signed by Nazario Sutton MD 04/23/25 13:54:
I saw and examined the patient.
The CHEESEMAKER HELPER or PA's note was reviewed and I agree with the note.
Comment: General: Well developed, well nourished in NAD.
Neck: Supple, no JVD, HJR, carotids +2 B/L, no bruits bilaterally.
Heart: Non displaced PMI, RRR, no murmurs, No S3, S4, no rubs.
Lungs: Scattered rhonchi
Extremities: Severe lower extremity edema bilaterally with chronic venous stasis changes
Neuro: Grossly nonfocal, awake, alert and oriented x3.
Remains volume overloaded despite Lasix drip. Metolazone is being added. Creatinine has improved slightly from 2.8 to 2.7. When creatinine has improved/stabilized will need lower extremity arteriogram to assess femoral access for outpatient TAVR
Original Note:
Today's Communication / Plan
-
Metolazone being added to Lasix gtt
Impression / Plan
-
PCP: Dr. Eason
Primary Patient Services Representative: Dr. Sutton
Impression:
Admitted with acute HF and JAY 04/18/25
Acute on chronic HFrEF
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
Recent admission for shock, anemia, GI bleed 03/11/2025 until 03/17/2025
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
Severe since 2019
s/p TAVR work-up with MPG 27 at time of cath and not recommended TAVR 01/2023
RHC/LHC 03/15/2025 MPG 28 mmHg, stable CAD, current TAVR eval in process
ICM EF 31%, echo 03/12/2025
History of reduced ejection fraction heart failure with recovered EF
CAD status post CABGx4 in setting of VT in 2001
carotid disease s/p left CEA in 2012
s/p Medtronic single chamber ICD 2017
Persistent Afib
Chronic Eliquis OAC
DM 2
Gout
Smoker, ongoing tobacco use
Echo 08/23/2019: EF 30-35%, global hypokinesis with inferolateral, inferior and basal septal akinesis, mild MR, sev pressure 47/28 mmHg
ECHO 12/03/22: EF 50%, mild LVH, stage III diastolic dysfunction, mild MR, severe with peak/mean gradients 54/28 mmHg, KAELYN 0.8 cm�, trace AR, mild TR, PAP 64 mmHg, mild dilation of aorta measuring 4.0 cm
Echo 10/09/2024: EF 35 to 40%, moderate eccentric MR, severe peak/mean 60/34 mmHg and KAELYN 0.8 cm sq, mild aortic insufficiency, moderate TR with PAP 64 mmHg
Echo 03/12/2025: EF 31%, global hypokinesis, moderate MR, severe peak/mean 41/22 mmHg and KAELYN 0.7 cm sq, mild aortic regurgitation, moderate to severe TR with PAP 72 mmHg
Right heart cath/left heart cath 03/15/2025: RA 14, PA 67/28, PCWP 24, LVEDP 18, CO/CI 5.4/3.0, aortic valve with mean pressure gradient 28 mmHg, KAELYN 0.95 cm�.
LAD 100% occluded midportion, NAVAS to LAD versus diagonal is patent to either mid LAD or diagonal branch with anterograde and retrograde filling well-developed septal collaterals from RCA noted. Ramus occluded at origin distal fills via patent free
radial to ramus graft. Circumflex 100% occluded at origin, RCA occluded with patent SVG to PDA. Graft angiography: NAVAS as above, free radial to ramus widely patent, SVG to OM1 100% occluded, SVG to PDA 50 to 55% stenosis in the mid
Plan:
-Weight is up 4 lbs on VS reviewed by me 04/23/2025, the patient is being weighed with bed scale. Previous dry weight at last discharge on 03/17/2025 was 151 lbs
-Weight is up despite ongoing Lasix gtt. Nephrology note reviewed by me and they are adding metolazone. There is also discussion of possible initiation of HD treatment, but there is no emergent need
-Patient was taking Lasix 160 mg PO BID plus metolazone 2.5 mg daily prior to admission
-EF 31% by echo 03/12/2025. Echo also showed worsening AAS with peak/mean 41/22 mmHg. Patient is being considered for TAVR, he had a previous evaluation in 2022 but the MPG at that time was only 27. Patient will need CT of the lower extremities to
evaluate for access for TAVR. He had LHC on 03/15/2025
-Cre is stable at 2.7.
-Medtronic single chamber ICD reprogrammed to VVI 50 on 03/13/25. Eventually consider upgrade to DC ICD or even COLOR REPAIRER-D to help with synchrony.
-Patient with known persistent Afib. Outpatient dose of Eliquis 5 mg BID (Cre 2.7, wt 81.7 kg, age 79) has been continued
-Patient was treated for GIB 03/11/2025 until 03/17/2025 and Hgb is stable at 10.6 on labs reviewed by me 04/19/2025
Progress Note - Patient Services Representative
Subjective
Date of Service: April 23, 2025
SOB with activity
Objective
Labs:
04/19/25 05:11
04/23/25 09:14
Labs
Hgb 10.6 g/dL (13.0-18.0) L 04/19/25 05:11
Hct 32.1 % (39.0-52.0) L 04/19/25 05:11
Plt Count 182 10^3/uL (130-400) 04/19/25 05:11
Sodium 131 mmol/L (135-145) L 04/23/25 09:14
Potassium 3.2 mmol/L (3.5-5.1) L 04/23/25 09:14
BUN 59 mg/dl (9-20) H 04/23/25 09:14
Creatinine 2.7 mg/dL (0.7-1.3) H 04/23/25 09:14
Glucose 241 mg/dl (70-99) H 04/23/25 09:14
Vital Signs and I&O:
Vital Signs
Temp Pulse Resp BP Pulse Ox
98.2 F 90 20 98/62 98
04/23/25 11:00 04/23/25 11:00 04/23/25 11:00 04/23/25 11:00 04/23/25 11:05
Vital Signs
Temp Pulse Resp BP Pulse Ox
98.2 F 90 20 98/62 98
04/23/25 11:00 04/23/25 11:00 04/23/25 11:00 04/23/25 11:00 04/23/25 11:05
Intake & Output
04/21/25 04/22/25 04/23/25 04/24/25
06:59 06:59 06:59 06:59
Intake Total 780 / 780 1144 / 1144 1800 / 1800
Output Total 1750 / 1750 950 / 950 600 / 600
Balance -970 / -970 194 / 194 1200 / 1200
Physical Exam
Physical Exam
General: NAD, AAOX3
HEENT: EOMI
Heart: Afib on tele.
Lungs: 5 L NC.
Ext: Trace B/L LE edema
Neuro: nonfocal
[2025-04-23] MEDS: ZAROXOLYN 5 MG PO (14:29)
[2025-04-23] MEDS: XANAX 0.25 MG PO (14:34)
[2025-04-23 15:00] VITALS: BP 92/75
[2025-04-23] MEDS: LASIX 50 IV (15:01)
[2025-04-23 16:36] LABS: Glucose - Point of Care 195 mg/dl (70-99)
[2025-04-23] MEDS: NOVOLOG FLEXPEN 5 UNITS SC (17:21)
--- NOTE | 2025-04-23 18:52 | CM ---
Alert awake oriented patient who lives with his Neli who lives in a 2 story home with 2 step to enter and bed and bathroom on first floor. He is assisted in all activities of daily living.He was offered VN he requested [facility] resumption [facility]
S notified .He uses a cane and has new oxygen in hospital. Pt will TAVR procedure.
Pt [facility] current / No SNF history
Pharmacy [facility] [address] [place]
PCP DR Eason
PLAN Home with [facility] and watch for oxygen needs
[2025-04-23 19:00] VITALS: BP 99/54
[2025-04-23 21:30] LABS: Glucose - Point of Care 252 mg/dl (70-99)
[2025-04-23] MEDS: LANTUS 0.18 UNITS SC (21:58)
[2025-04-23] MEDS: REMOVE NICOTINE PATCH 1 PATCH REMOVE (22:04)
[2025-04-23] MEDS: AMBIEN 5 MG PO (22:21)
[2025-04-23 23:00] VITALS: BP 120/67
[2025-04-24] VITALS (8 sets, daily range): BP systolic 101–130; BP diastolic 58–77; PULSE 81–102; O2SAT 92–96; BMI 29.8
[2025-04-24 06:49] LABS: Hematocrit 32.0 % (39.0-52.0); Hemoglobin 10.6 g/dL (13.0-18.0); Mean Corp Hgb Conc. 33.1 g/dL (33.0-37.0); Mean Corpuscular Volume 101.3 fL (80.0-94.0); Platelet Count 195 10^3/uL (130-400); Red Cell Dist. Width 18.3 % (11.5-14.5)
[2025-04-24 07:14] LABS: Blood Urea Nitrogen 58 mg/dl (9-20); Calcium 9.0 mg/dl (8.4-10.2); Carbon Dioxide 33 mmol/L (22-30); Chloride 94 mmol/L (98-107); Estimated Creatinine Clearance 23 ml/min; Glucose 132 mg/dl (70-99); Magnesium 1.6 mg/dl (1.6-2.3); Potassium 3.7 mmol/L (3.5-5.1); Sodium 134 mmol/L (135-145); eGFR 24.32
--- NOTE | 2025-04-24 07:17 | W.PN.HOSP.TC ---
Today's Communication/Plan
-
Continue aggressive diuresis
When creatinine has improved/stabilized will need lower extremity arteriogram to assess femoral access for outpatient TAVR
Assessment / Plan
Assessment / Plan
79-year-old male with a medical history of CAD (status post CABG and stents), HFrEF, severe , A-fib (on Eliquis), carotid artery stenosis (status post left CEA), IDDM, and CKD stage IV who presented with increasing lower extremity edema and abrupt
weight gain. His home diuretic regimen has been altered frequently per patient report. At time of presentation he has approximately 20 pounds over his dry weight. Chest imaging shows pulmonary edema and bilateral pleural effusions. He has been
started on IV diuresis and admitted for further evaluation and management of acute on chronic HFrEF.
#Acute on chronic HFrEF:
- IV Lasix drip at rate of 40 mg/h; metolazone was also added yesterday
- Condom catheter in place for closer management of urine output
- Continue to monitor I's and O's and daily weights; 0.5 kg decrease from yesterday
- Aggressively replete electrolytes with diuresis and replete as needed
- Appreciate cardiology input, recommending CT arteriogram of lower extremities when renal function is stabilized to further evaluate access for outpatient TAVR
- will reach out to nephro and cardio for consideration of bumex drip?
#JAY on CKD stage IV:
- Suspect due to cardiorenal syndrome
- Renal function appears to have stabilized now on to IV Lasix drip, slight improvement with creatinine 2.6 today
- Baseline creatinine appears to be around 2.0
- ? acetazolamide???
# Acute hypoxic respiratory failure
- Patient is in need of of oxygen at 3L via nasal canula at rest due to pulse ox of 86% on room air at rest. Patient sa02 increased to 93% on 3L. Patient required 6L 02 with ambulation. Oxygen will help to improve hypoxemia. Patient is mobile within
the home. Duoneb therapy has been tried and is ineffective in treating hypoxemia-related symptoms. Oxygen is needed to improve symptoms
#Hyponatremia:
- Appears chronic, stable
- Suspect hypervolemic
- Monitor with diuresis
# Hypokalemia
- 80 mEq IV KCl 04/23/2025
-Repeat potassium of 3.7
#IDDM:
- Home regimen is Lantus 14 units at night and NovoLog 3 units with meals; Increase to Lantus 18 and NovoLog 5
- Continue Accu-Cheks, additional sliding scale as needed
- Adjust regimen as needed
- Diabetic diet
#A-fib:
- Chronic
- Currently rate controlled
- Continue anticoagulation with Eliquis
DVT prophylaxis: Eliquis
CODE STATUS: Full code
Anticipated Discharge: 24 - 48 hours
Subjective/Interval History
-
Date of Service: April 24, 2025
Seen and examined at bedside. On supplemental O2 5 L. AFVSS.
Objective Data
-
Labs:
Laboratory Results
04/24/25
06:09
WBC 5.8
Hgb 10.6 L
Hct 32.0 L
Plt Count 195
Sodium 134 L
Potassium 3.7
Chloride 94 L
Carbon Dioxide 33 H
BUN 58 H
Creatinine 2.6 H
Glucose 132 H
Calcium 9.0
Vital Signs:
Vital Signs
Temp Pulse Resp BP Pulse Ox
97.6 F 107 18 130/77 95
04/24/25 03:00 04/24/25 03:00 04/24/25 03:00 04/24/25 03:00 04/24/25 03:00
I&O
04/23/25 04/24/25 04/25/25
06:59 06:59 06:59
Intake Total 1800 / 1800 2039 / 2039
Output Total 600 / 600 1470 / 1470
Balance 1200 / 1200 570 / 570
Review of Systems
-
History Source: Patient
All other systems: Reviewed and negative (Except as documented)
Physical Exam
-
General: No Apparent Distress, Comfortable and Conversant
HEENT: Normocephalic
Respiratory: Rales, Decreased Breath Sounds (Bilateral bases) and Other (Supplemental O2 5 L via nasal cannula)
Cardiac: Regular Rhythm and S1/S2
GI: Soft and Nontender
Genito-urinary: Other (Condom cath in place)
Musculoskeletal: Other (1+ bilateral lower extremity edema)
Neuro: Awake, Alert and Oriented
Psych: Calm
Data Reviewed
-
Labs: Labs Reviewed by me, Discussed with Physician and Discussed with Patient
[2025-04-24] MEDS: LASIX 50 IV ×2 (07:46→19:18)
[2025-04-24 08:07] LABS: Glucose - Point of Care 98 mg/dl (70-99)
[2025-04-24] MEDS: ZYLOPRIM 150 MG PO ×2 (08:09→19:51)
[2025-04-24] MEDS: LIPITOR 80 MG PO (08:09)
[2025-04-24] MEDS: ELIQUIS 5 MG PO ×2 (08:09→19:51)
[2025-04-24] MEDS: KCL 20 MEQ PO ×2 (08:10→19:51)
[2025-04-24] MEDS: NICODERM TRANSDERMAL 14 MG TRANSDERM (08:10)
[2025-04-24] MEDS: ZAROXOLYN 5 MG PO (08:10)
[2025-04-24] MEDS: PROTONIX 40 MG PO ×2 (08:10→19:51)
[2025-04-24] MEDS: NOVOLOG FLEXPEN-MODERATE RESISTANCE SC ×2 (08:11→11:48)
[2025-04-24] MEDS: NOVOLOG FLEXPEN 5 UNITS SC ×3 (08:23→17:23)
--- NOTE | 2025-04-24 10:32 | W.PN.CARDCBS ---
Today's Communication / Plan
-
Creatinine continues to improve slowly, with the addition of metolazone, to 2.6 April 24, 2025.
Continue IV Lasix drip and metolazone as per nephrology.
Continue to follow daily weights, I's and O's and creatinine.
Weight coming down slowly.
Patient was taking Lasix 160 mg PO BID plus metolazone 2.5 mg daily prior to admission
CM with EF 31% by echo 03/12/2025. Echo also showed severe with peak/mean 41/22 mmHg. Patient is being considered for TAVR
Eventual consideration for lower extremity arteriogram to assess for femoral access for outpatient TAVR.
Impression / Plan
-
PCP: Dr. Eason
Primary Quality Officer: Dr. Sutton
Impression:
Admitted with acute HF and JAY 04/18/25
Acute on chronic HFrEF
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
Recent admission for shock, anemia, GI bleed 03/11/2025 until 03/17/2025
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
Severe since 2019
s/p TAVR work-up with MPG 27 at time of cath and not recommended TAVR 01/2023
RHC/LHC 03/15/2025 MPG 28 mmHg, stable CAD, current TAVR eval in process
ICM EF 31%, echo 03/12/2025
History of reduced ejection fraction heart failure with recovered EF
CAD status post CABGx4 in setting of [place] in 2001
carotid disease s/p left CEA in 2012
s/p Medtronic single chamber ICD 2017
Persistent Afib
Chronic Eliquis OAC
DM 2
Gout
Smoker, ongoing tobacco use
Echo 08/23/2019: EF 30-35%, global hypokinesis with inferolateral, inferior and basal septal akinesis, mild MR, sev pressure 47/28 mmHg
ECHO 12/03/22: EF 50%, mild LVH, stage III diastolic dysfunction, mild MR, severe with peak/mean gradients 54/28 mmHg, KAELYN 0.8 cm�, trace AR, mild TR, PAP 64 mmHg, mild dilation of aorta measuring 4.0 cm
Echo 10/09/2024: EF 35 to 40%, moderate eccentric MR, severe peak/mean 60/34 mmHg and KAELYN 0.8 cm sq, mild aortic insufficiency, moderate TR with PAP 64 mmHg
Echo 03/12/2025: EF 31%, global hypokinesis, moderate MR, severe peak/mean 41/22 mmHg and KAELYN 0.7 cm sq, mild aortic regurgitation, moderate to severe TR with PAP 72 mmHg
Right heart cath/left heart cath 03/15/2025: RA 14, PA 67/28, PCWP 24, LVEDP 18, CO/CI 5.4/3.0, aortic valve with mean pressure gradient 28 mmHg, KAELYN 0.95 cm�.
LAD 100% occluded midportion, NAVAS to LAD versus diagonal is patent to either mid LAD or diagonal branch with anterograde and retrograde filling well-developed septal collaterals from RCA noted. Ramus occluded at origin distal fills via patent free
radial to ramus graft. Circumflex 100% occluded at origin, RCA occluded with patent SVG to PDA. Graft angiography: NAVAS as above, free radial to ramus widely patent, SVG to OM1 100% occluded, SVG to PDA 50 to 55% stenosis in the mid
Plan:
Creatinine continues to improve slowly, with the addition of metolazone, to 2.6 April 24, 2025.
Continue IV Lasix drip and metolazone as per nephrology.
Continue to follow daily weights, I's and O's and creatinine.
Weight coming down slowly.
Patient was taking Lasix 160 mg PO BID plus metolazone 2.5 mg daily prior to admission
CM with EF 31% by echo 03/12/2025. Echo also showed severe with peak/mean 41/22 mmHg. Patient is being considered for TAVR
Eventual consideration for lower extremity arteriogram to assess for femoral access for outpatient TAVR.
Medtronic single chamber ICD reprogrammed to VVI 50 on 03/13/25. Eventually consider upgrade to DC ICD or even SET UP MECHANIC COATING MACHINES-D to help with synchrony.
Patient with known persistent Afib. Outpatient dose of Eliquis 5 mg BID (Cre 2.7, wt 81.7 kg, age 79) has been continued
Patient was treated for GIB 03/11/2025 until 03/17/2025 and Hgb has been stable.
Progress Note - Quality Officer
Subjective
Date of Service: April 24, 2025
Pt seen and examined. No complaints. No chest pain or shortness of breath.
Objective
Labs:
04/24/25 06:09
04/24/25 06:09
Labs
Hgb 10.6 g/dL (13.0-18.0) L 04/24/25 06:09
Hct 32.0 % (39.0-52.0) L 04/24/25 06:09
Plt Count 195 10^3/uL (130-400) 04/24/25 06:09
Sodium 134 mmol/L (135-145) L 04/24/25 06:09
Potassium 3.7 mmol/L (3.5-5.1) 04/24/25 06:09
BUN 58 mg/dl (9-20) H 04/24/25 06:09
Creatinine 2.6 mg/dL (0.7-1.3) H 04/24/25 06:09
Glucose 132 mg/dl (70-99) H 04/24/25 06:09
Vital Signs and I&O:
Vital Signs
Temp Pulse Resp BP Pulse Ox
97.7 F 97 18 119/75 95
04/24/25 07:00 04/24/25 07:00 04/24/25 07:00 04/24/25 07:00 04/24/25 08:00
Vital Signs
Temp Pulse Resp BP Pulse Ox
97.7 F 97 18 119/75 95
04/24/25 07:00 04/24/25 07:00 04/24/25 07:00 04/24/25 07:00 04/24/25 08:00
Intake & Output
04/22/25 04/23/25 04/24/25 04/25/25
06:59 06:59 06:59 06:59
Intake Total 1144 / 1144 1800 / 1800 2040 / 2040
Output Total 950 / 950 600 / 600 1470 / 1470
Balance 194 / 194 1200 / 1200 570 / 570
Physical Exam
Physical Exam
General: No acute distress, AAOX3
Neck: Negative JVD
Heart: Irregularly irregular, Negative S3 positive S1/S2, Negative S4, No murmur
Lungs: CTA b/l, negative wheezes/rales/rhonchi
Abd: Positive BS, NT/ND, neg rebound/rigidity/guarding
Ext: Negative cyanosis/clubbing/edema
Neuro: nonfocal
[2025-04-24 11:46] LABS: Glucose - Point of Care 129 mg/dl (70-99)
[2025-04-24] MEDS: NON-FORMULARY ITEM 1 UNIT BOTH EYES ×2 (12:05→21:51)
--- NOTE | 2025-04-24 13:20 | W.PN.NEPH.PH ---
Today's Communication / Plan
-
Continue Lasix drip and metolazone
Assessment/Plan
-
IMP:
Acute on Chronic HFrEF
Abnormal Troponin - Likely secondary to CHF
JAY on CKD 3bbaseline cr at 2-follows Dr Yates
Paroxysmal atrial fibrillation
Chronic hyponatremia
COPD without exacerbation
Chronic heart failure reduced EF 30%
CAD/CABG x 4 (2001)
Medtronic single-chamber ICD, 2018
Carotid disease -s/p left CEA 2012.
Essential hypertension
DM 2
Severe aortic stenosis -previously declined TAVR workup.
Hyperlipidemia
Gout
h/o GI bleed 03/2025 , known h/o AVMS
traumatic left-sided rib fractures -due to fall last admit in March
Plan:
JAY remains 2.7
A/w acute on chr CHF also h/o severe
TAVR eval per cards, now appears pursuing TAVR pending CT to evaluate femoral access
no emergent need of dialysis> poor candidate without TAVR
Patient is at high risk with acute kidney injury persisting, with ongoing congestive heart failure despite high-dose diuretics and now transitioned to IV Lasix drip with improved response with the addition of metolazone
Patient weight is significantly elevated from last month admission 10-12kg and stagnant though significant improvement in output today we will continue to follow
-
-
Date of Service: April 24, 2025
CC / HPI / ROS
-
Chief Complaint:
Acute kidney injury
History of Present Illness:
Creatinine up to 2.8
Hemodynamically stable on midodrine
Remains on Lasix drip for decompensated congestive heart failure
Review of Systems:
Nonoliguric at 950 cc
No fevers or chills
Shortness of breath noted
Weights are stagnant
Labs
-
Labs:
WBC 5.8 10^3/uL (4.8-10.8) 04/24/25 06:09
RBC 3.16 10^6/uL (4.70-6.10) L 04/24/25 06:09
Hgb 10.6 g/dL (13.0-18.0) L 04/24/25 06:09
Hct 32.0 % (39.0-52.0) L 04/24/25 06:09
Plt Count 195 10^3/uL (130-400) 04/24/25 06:09
Sodium 134 mmol/L (135-145) L 04/24/25 06:09
Potassium 3.7 mmol/L (3.5-5.1) 04/24/25 06:09
Chloride 94 mmol/L (98-107) L 04/24/25 06:09
Carbon Dioxide 33 mmol/L (22-30) H 04/24/25 06:09
BUN 58 mg/dl (9-20) H 04/24/25 06:09
Creatinine 2.6 mg/dL (0.7-1.3) H 04/24/25 06:09
eGFR 24.32 04/24/25 06:09
Glucose 132 mg/dl (70-99) H 04/24/25 06:09
Calcium 9.0 mg/dl (8.4-10.2) 04/24/25 06:09
Phosphorus 4.1 mg/dl (2.5-4.5) 04/21/25 11:18
Vqi-F-Byunjhgipof Pept [id number] pg/ml 04/18/25 18:44
Albumin Cancelled 04/21/25 02:33
Physical Exam
-
Vital Signs:
Vital Signs
Temp Pulse Resp BP Pulse Ox
97.6 F 92 18 116/66 95
04/24/25 11:00 04/24/25 11:00 04/24/25 11:00 04/24/25 11:00 04/24/25 11:00
Cardiovascular:: Regular rate and rhythm
Respiratory:: Bilateral: Coarse (Decreased breath sounds at bases)
Lung Excursion:: Normal
Abdomen:: Nontender and Soft
Bowel Sounds:: Normal
Extremity Edema:: +1: Bilateral: (chronic)
Olea Catheter: No
--- NOTE | 2025-04-24 15:27 | VNURNOTE ---
[facility] liaison attempted to meet with pt at bedside. He was sleeping soundly. Called spouse Neli. She confirms patient is current with [facility] and would like to resume services once DC'ed home. She is aware watching if new home 02 needs.
PM-[facility] resumption referral in [facility].
[2025-04-24 16:46] LABS: Glucose - Point of Care 212 mg/dl (70-99)
[2025-04-24] MEDS: NOVOLOG FLEXPEN-MODERATE RESISTANCE 3 UNITS SC (17:21)
[2025-04-24 21:47] LABS: Glucose - Point of Care 240 mg/dl (70-99)
[2025-04-24] MEDS: LANTUS 0.18 UNITS SC (21:50)
[2025-04-24] MEDS: REMOVE NICOTINE PATCH 1 PATCH REMOVE (21:51)
[2025-04-24] MEDS: AMBIEN 5 MG PO (22:30)
[2025-04-25 03:35] VITALS: BP 112/67
--- NOTE | 2025-04-25 05:08 | DOWNTIME ---
There was a [employer] Senior Manufacturing Technician Downtime on 04/25/2025 from 0100 to 04/25/2025 at 0235. Downtime documentation of patient's care, including medication administrations, has been reconciled in the electronic record per guidelines. Refer to the
patient's paper chart under the miscellaneous tab to see printed paper medication records and downtime forms.
[2025-04-25 06:00] VITALS: BMI 28.7
[2025-04-25 07:00] VITALS: BP 115/65
[2025-04-25] MEDS: LASIX 50 IV ×2 (07:07→18:57)
--- NOTE | 2025-04-25 07:10 | W.PN.HOSP.TC ---
Addendum entered and electronically signed by Nazario Castelan DO 04/26/25 10:56:
CDI: JAY on CKD 3B
Original Note:
Today's Communication/Plan
-
Continue aggressive diuresis
When creatinine has improved/stabilized will need lower extremity arteriogram to assess femoral access for outpatient TAVR
will check with cardio if it is okay to start metoprolol 12.5mg?
Assessment / Plan
Assessment / Plan
79-year-old male with a medical history of CAD (status post CABG and stents), HFrEF, severe , A-fib (on Eliquis), carotid artery stenosis (status post left CEA), IDDM, and CKD stage IV who presented with increasing lower extremity edema and abrupt
weight gain. His home diuretic regimen has been altered frequently per patient report. At time of presentation he has approximately 20 pounds over his dry weight. Chest imaging shows pulmonary edema and bilateral pleural effusions. He has been
started on IV diuresis and admitted for further evaluation and management of acute on chronic HFrEF.
#Acute on chronic HFrEF:
- IV Lasix drip at rate of 40 mg/h; metolazone was also added in by nephrology
- Condom catheter in place for closer management of urine output
- Continue to monitor I's and O's and daily weights; 3 kg decrease from yesterday
- Aggressively replete electrolytes with diuresis and replete as needed
- Appreciate cardiology input, recommending CT arteriogram of lower extremities when renal function is stabilized to further evaluate access for outpatient TAVR
- bumex drip?
#JAY on CKD stage IV:
- Suspect due to cardiorenal syndrome
- Renal function appears to have stabilized now on to IV Lasix drip, creatinine 2.6 today
- Baseline creatinine appears to be around 2.0
# Acute hypoxic respiratory failure
- Patient is in need of of oxygen at 3L via nasal canula at rest due to pulse ox of 86% on room air at rest. Patient sa02 increased to 93% on 3L. Patient required 6L 02 with ambulation. Oxygen will help to improve hypoxemia. Patient is mobile within
the home. Duoneb therapy has been tried and is ineffective in treating hypoxemia-related symptoms. Oxygen is needed to improve symptoms
#Hyponatremia:
- Appears chronic, stable
- Suspect hypervolemic
- Monitor with diuresis
#Hypokalemia
- 80 mEq IV KCl 04/23/2025
- Repeat potassium
#IDDM:
- Home regimen is Lantus 14 units at night and NovoLog 3 units with meals; Increase to Lantus 18 and NovoLog 5
- Continue Accu-Cheks, additional sliding scale as needed
- Adjust regimen as needed
- Diabetic diet
#A-fib:
- Chronic
- Currently rate controlled
- Continue anticoagulation with Eliquis
DVT prophylaxis: Eliquis
CODE STATUS: Full code
Anticipated Discharge: Today
Subjective/Interval History
-
Date of Service: April 25, 2025
Seen and examined at bedside. Patient lying in the bed. Offers no new complaints. States that he is feeling much better today. AFVSS
Objective Data
-
Labs:
Laboratory Results
04/25/25
07:07
WBC Pending
Hgb Pending
Hct Pending
Plt Count Pending
Sodium Pending
Potassium Pending
Chloride Pending
Carbon Dioxide Pending
BUN Pending
Creatinine Pending
Glucose Pending
Calcium Pending
Vital Signs:
Vital Signs
Temp Pulse Resp BP Pulse Ox
98.1 F 98 16 112/67 95
04/25/25 03:35 04/25/25 03:35 04/25/25 03:35 04/25/25 03:35 04/25/25 03:35
I&O
04/24/25 04/25/25 04/26/25
06:59 06:59 06:59
Intake Total 2039 840 / 840
Output Total 1470 1470 2335 / 2335
Balance 570 / 570 -1495 / -1495
Review of Systems
-
History Source: Patient
All other systems: Reviewed and negative (Except as documented)
Physical Exam
-
General: No Apparent Distress, Comfortable and Conversant
HEENT: Normocephalic
Respiratory: Clear to Auscultation, Non Labored Respirations and Other (Supplemental O2 3 L via nasal cannula)
Cardiac: Regular Rhythm and S1/S2
GI: Soft and Nontender
Genito-urinary: Other (Condom cath in place)
Musculoskeletal: Other (1+ bilateral lower extremity edema)
Neuro: Awake, Alert and Oriented
Psych: Calm
Data Reviewed
-
Labs: Labs Reviewed by me, Discussed with Physician and Discussed with Patient
[2025-04-25] MEDS: KCL 20 MEQ PO ×2 (07:50→20:45)
[2025-04-25] MEDS: LIPITOR 80 MG PO (07:50)
[2025-04-25] MEDS: NICODERM TRANSDERMAL 14 MG TRANSDERM (07:50)
[2025-04-25] MEDS: PROTONIX 40 MG PO ×2 (07:50→20:42)
[2025-04-25] MEDS: ELIQUIS 5 MG PO ×2 (07:50→20:42)
[2025-04-25] MEDS: ZYLOPRIM 150 MG PO ×2 (07:50→20:42)
[2025-04-25] MEDS: ZAROXOLYN 5 MG PO (07:51)
[2025-04-25 07:54] LABS: Hematocrit 36.4 % (39.0-52.0); Hemoglobin 11.5 g/dL (13.0-18.0); Mean Corp Hgb Conc. 31.6 g/dL (33.0-37.0); Mean Corpuscular Volume 104.6 fL (80.0-94.0); Platelet Count 224 10^3/uL (130-400); Red Cell Dist. Width 18.9 % (11.5-14.5)
[2025-04-25] MEDS: NOVOLOG FLEXPEN 5 UNITS SC ×4 (07:59→22:09)
[2025-04-25] MEDS: NOVOLOG FLEXPEN-MODERATE RESISTANCE 1 UNITS SC (08:00)
[2025-04-25 08:02] LABS: Glucose - Point of Care 175 mg/dl (70-99)
[2025-04-25 08:22] LABS: Blood Urea Nitrogen 61 mg/dl (9-20); Calcium 9.7 mg/dl (8.4-10.2); Carbon Dioxide 37 mmol/L (22-30); Chloride 91 mmol/L (98-107); Estimated Creatinine Clearance 20 ml/min; Glucose 167 mg/dl (70-99); Potassium 3.4 mmol/L (3.5-5.1); Sodium 134 mmol/L (135-145); eGFR 24.32
[2025-04-25 08:55] LABS: Magnesium 1.6 mg/dl (1.6-2.3)
--- NOTE | 2025-04-25 09:47 | RESPNOTE ---
Patient has saturation on 86 on room air at rest , 87% ambulating on 4 liters , sa02=93% on 6 liters ambulating
[2025-04-25] MEDS: KCL ELIXIR 40 MEQ PO (10:14)
--- NOTE | 2025-04-25 11:01 | VNURNOTE ---
Chart reviewed. Pt qualified for new home 02. Rx, clinicals sent to [facility]. Zaida at [facility] confirmed receipt.
[2025-04-25 11:20] VITALS: BP 129/81
--- NOTE | 2025-04-25 11:31 | CM ---
Chart reviewed. Care ongoing at this time
Pt on 3L O2, qualifies for home O2. [facility] liaison arranging through [facility]
CM will cont to follow for d/c planning
Plan: Home w/ [facility] and new O2
--- NOTE | 2025-04-25 11:36 | W.PN.NEPH.PH ---
Today's Communication / Plan
-
Maintain Lasix infusion
Weights starting to drop
replete K
Assessment/Plan
-
IMP:
Acute on Chronic HFrEF
Abnormal Troponin - Likely secondary to CHF
JAY on CKD 3bbaseline cr at 2-follows Dr Yates
Paroxysmal atrial fibrillation
Chronic hyponatremia
COPD without exacerbation
Chronic heart failure reduced EF 30%
CAD/CABG x 4 (2001)
Medtronic single-chamber ICD, 2018
Carotid disease -s/p left CEA 2012.
Essential hypertension
DM 2
Severe aortic stenosis -previously declined TAVR workup.
Hyperlipidemia
Gout
h/o GI bleed 03/2025 , known h/o AVMS
traumatic left-sided rib fractures -due to fall last admit in March
Plan:
JAY remains 2.6
A/w acute on chronic CHF also h/o severe
TAVR eval per cards, now appears pursuing TAVR pending CT to evaluate femoral access
no emergent need of dialysis> poor candidate without TAVR
Weight is dropping on current IV diuretic (lasix gtt) and metolazone
Patient is at high risk with acute kidney injury persisting, with ongoing congestive heart failure despite high-dose diuretics and now transitioned to IV Lasix drip with improved response with the addition of metolazone
Again, I am fairly certain that patient would not tolerate dialysis hemodynamically given his severe aortic stenosis and compromised LV function
If he wishes to pursue TAVR but contrast will likely throw him into dialysis dependent renal failure
Patient weight is significantly elevated from last month admission 10-12kg and stagnant though significant improvement in output today we will continue to follow
Patient remains at high clinical risk with persistent renal failure requiring Lasix drip
-
-
Date of Service: April 25, 2025
CC / HPI / ROS
-
Chief Complaint:
Acute kidney injury
History of Present Illness:
Creatinine down to 2.6
Hemodynamically stable on midodrine
Remains on Lasix drip for decompensated congestive heart failure
Review of Systems:
Nonoliguric at 950 cc
No fevers or chills
Shortness of breath noted
Weights are finally down
Labs
-
Labs:
WBC 5.6 10^3/uL (4.8-10.8) 04/25/25 07:07
RBC 3.48 10^6/uL (4.70-6.10) L 04/25/25 07:07
Hgb 11.5 g/dL (13.0-18.0) L 04/25/25 07:07
Hct 36.4 % (39.0-52.0) L 04/25/25 07:07
Plt Count 224 10^3/uL (130-400) 04/25/25 07:07
Sodium 134 mmol/L (135-145) L 04/25/25 07:07
Potassium 3.4 mmol/L (3.5-5.1) L 04/25/25 07:07
Chloride 91 mmol/L (98-107) L 04/25/25 07:07
Carbon Dioxide 37 mmol/L (22-30) H 04/25/25 07:07
BUN 61 mg/dl (9-20) H 04/25/25 07:07
Creatinine 2.6 mg/dL (0.7-1.3) H 04/25/25 07:07
eGFR 24.32 04/25/25 07:07
Glucose 167 mg/dl (70-99) H 04/25/25 07:07
Calcium 9.7 mg/dl (8.4-10.2) 04/25/25 07:07
Phosphorus 4.1 mg/dl (2.5-4.5) 04/21/25 11:18
Lxu-L-Puuitblnivw Pept 07491 pg/ml 04/18/25 18:44
Albumin Cancelled 04/21/25 02:33
Physical Exam
-
Vital Signs:
Vital Signs
Temp Pulse Resp BP Pulse Ox
97.4 F 104 18 129/81 96
04/25/25 11:20 04/25/25 11:20 04/25/25 11:20 04/25/25 11:20 04/25/25 11:20
Cardiovascular:: Regular rate and rhythm
Respiratory:: Bilateral: Coarse (Decreased breath sounds at bases)
Lung Excursion:: Normal
Abdomen:: Nontender and Soft
Bowel Sounds:: Normal
Extremity Edema:: +1: Bilateral: (chronic)
Olea Catheter: No
[2025-04-25 11:49] LABS: Glucose - Point of Care 227 mg/dl (70-99)
[2025-04-25] MEDS: NOVOLOG FLEXPEN-MODERATE RESISTANCE 3 UNITS SC (12:14)
[2025-04-25] MEDS: NON-FORMULARY ITEM 1 UNIT BOTH EYES ×2 (12:16→21:50)
[2025-04-25 15:00] VITALS: BP 124/76
--- NOTE | 2025-04-25 15:49 | PN.CDI ---
CDI
- -
CDI:
Physician Documentation Request
Admit Date: 04/18/25 21:01
Dear Doctor Denise,
Patient admitted for heart failure.
04/24 Nephrology PN: 'JAY on CKD 3b baseline cr at 2-follows Dr Yates'
04/25 Hospitalist PN: 'JAY on CKD. Secondary to cardiorenal physiology, poor diuretic response with CKD 4.'
Clarify which of the following accurately represents the patient's renal status:
JAY on CKD 3b
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
Other
Stages of Chronic Kidney Disease*
Level Description GFR
G1 Normal or High >90
G2 Mildly decreased 60-89
G3a Mildly to moderately decreased 45-59
G3b Moderately to severely decreased 30-44
G4 Severely decreased 15-29
G5 Kidney failure <15
Use of terms such as suspected, likely, concern for, or probable (associated with a specific diagnosis that is being evaluated, monitored, or treated as if it exists) are acceptable and can be coded in the inpatient setting, when documented at the
time of discharge.
Thank you,
Mary Pope RN, BSN
CDI Specialist
Available via [place] text
Please use your independent medical judgment in providing your response.
*Source: Kidney Disease: Improving Global Outcomes (KDIGO) 2012
[2025-04-25 16:47] LABS: Glucose - Point of Care 297 mg/dl (70-99)
[2025-04-25] MEDS: NOVOLOG FLEXPEN-MODERATE RESISTANCE 5 UNITS SC (17:09)
[2025-04-25 19:25] VITALS: BP 114/59
--- NOTE | 2025-04-25 20:23 | W.PN.CARDCBS ---
Today's Communication / Plan
-
Cont IV lasix gtt as per nephrology
Impression / Plan
-
.
PCP: Dr. Eason
Primary System Planning Engineer: Dr. Sutton
Impression:
Admitted with acute HF and JAY 04/18/25
Acute on chronic HFrEF
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
Recent admission for shock, anemia, GI bleed 03/11/2025 until 03/17/2025
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
Severe since 2018
s/p TAVR work-up with MPG 27 at time of cath and not recommended TAVR 01/2023
RHC/LHC 03/15/2025 MPG 28 mmHg, stable CAD, current TAVR eval in process
ICM EF 31%, echo 03/12/2025
History of reduced ejection fraction heart failure with recovered EF
CAD status post CABGx4 in setting of [place] in 2001
carotid disease s/p left CEA in 2012
s/p Medtronic single chamber ICD 2017
Persistent Afib
Chronic Eliquis OAC
DM 2
Gout
Smoker, ongoing tobacco use
Echo 08/23/2019: EF 30-35%, global hypokinesis with inferolateral, inferior and basal septal akinesis, mild MR, sev pressure 47/28 mmHg
ECHO 12/03/22: EF 50%, mild LVH, stage III diastolic dysfunction, mild MR, severe with peak/mean gradients 54/28 mmHg, KAELYN 0.8 cm�, trace AR, mild TR, PAP 64 mmHg, mild dilation of aorta measuring 4.0 cm
Echo 10/09/2024: EF 35 to 40%, moderate eccentric MR, severe peak/mean 60/34 mmHg and KAELYN 0.8 cm sq, mild aortic insufficiency, moderate TR with PAP 64 mmHg
Echo 03/12/2025: EF 31%, global hypokinesis, moderate MR, severe peak/mean 41/22 mmHg and KAELYN 0.7 cm sq, mild aortic regurgitation, moderate to severe TR with PAP 72 mmHg
Right heart cath/left heart cath 03/15/2025: RA 14, PA 67/28, PCWP 24, LVEDP 18, CO/CI 5.4/3.0, aortic valve with mean pressure gradient 28 mmHg, KAELYN 0.95 cm�.
LAD 100% occluded midportion, NAVAS to LAD versus diagonal is patent to either mid LAD or diagonal branch with anterograde and retrograde filling well-developed septal collaterals from RCA noted. Ramus occluded at origin distal fills via patent free
radial to ramus graft. Circumflex 100% occluded at origin, RCA occluded with patent SVG to PDA. Graft angiography: NAVAS as above, free radial to ramus widely patent, SVG to OM1 100% occluded, SVG to PDA 50 to 55% stenosis in the mid
Plan:
Creatinine continues to improve slowly, with the addition of metolazone, to 2.6 April 24 and 2024.
Continue IV Lasix drip and metolazone as per nephrology.
Continue to follow daily weights, I's and O's and creatinine.
Weight coming down slowly.
Patient was taking Lasix 160 mg PO BID plus metolazone 2.5 mg daily prior to admission
CM with EF 31% by echo 03/12/2025. Echo also showed severe with peak/mean 41/22 mmHg. Patient is being considered for TAVR
Eventual consideration for lower extremity arteriogram to assess for femoral access for outpatient TAVR. However there are concerns regarding renal failure risks following contrast
Medtronic single chamber ICD reprogrammed to VVI 50 on 03/13/25. Eventually consider upgrade to DC ICD or even EQUIPMENT PROCESSER STORAGE-D to help with synchrony.
Patient with known persistent Afib. Outpatient dose of Eliquis 5 mg BID (Cre 2.7, wt 81.7 kg, age 79) has been continued
Patient was treated for GIB 03/11/2025 until 03/17/2025 and Hgb has been stable.
Progress Note - System Planning Engineer
Subjective
Date of Service: April 25, 2025
Pt seen and examined. No complaints. No chest pain or shortness of breath.
Objective
Labs:
04/25/25 07:07
04/25/25 07:07
Labs
Hgb 11.5 g/dL (13.0-18.0) L 04/25/25 07:07
Hct 36.4 % (39.0-52.0) L 04/25/25 07:07
Plt Count 224 10^3/uL (130-400) 04/25/25 07:07
Sodium 134 mmol/L (135-145) L 04/25/25 07:07
Potassium 3.4 mmol/L (3.5-5.1) L 04/25/25 07:07
BUN 61 mg/dl (9-20) H 04/25/25 07:07
Creatinine 2.6 mg/dL (0.7-1.3) H 04/25/25 07:07
Glucose 167 mg/dl (70-99) H 04/25/25 07:07
Vital Signs and I&O:
Vital Signs
Temp Pulse Resp BP Pulse Ox
97.8 F 85 14 114/59 96
04/25/25 19:25 04/25/25 19:25 04/25/25 19:25 04/25/25 19:25 04/25/25 19:25
Vital Signs
Temp Pulse Resp BP Pulse Ox
97.8 F 85 14 114/59 96
04/25/25 19:25 04/25/25 19:25 04/25/25 19:25 04/25/25 19:25 04/25/25 19:25
Intake & Output
04/23/25 04/24/25 04/25/25 04/26/25
06:59 06:59 06:59 06:59
Intake Total 1800 / 1800 2040 / 2040 840 / 840 700 / 700
Output Total 600 / 600 1470 / 1470 2335 / 2335 875 / 875
Balance 1200 / 1200 570 / 570 -1495 / -1495 -175 / -175
Physical Exam
Physical Exam
General: No acute distress, AAOX3
Neck: Negative JVD
Heart: Regular, Negative S3 positive S1/S2, Negative S4, No murmur
Lungs: CTA b/l, negative wheezes/rales/rhonchi
Abd: Positive BS, NT/ND, neg rebound/rigidity/guarding
Ext: Negative cyanosis/clubbing/edema
Neuro: nonfocal
[2025-04-25 21:32] LABS: Glucose - Point of Care 305 mg/dl (70-99)
[2025-04-25] MEDS: LANTUS 0.18 UNITS SC (21:50)
[2025-04-25] MEDS: REMOVE NICOTINE PATCH 1 PATCH REMOVE (22:13)
[2025-04-25 23:02] VITALS: BP 112/59
[2025-04-26] VITALS (9 sets, daily range): BP systolic 101–129; BP diastolic 58–75; PULSE 80–84; O2SAT 92; BMI 28.8
[2025-04-26] MEDS: AMBIEN 5 MG PO (00:08)
[2025-04-26 00:10] LABS: Glucose - Point of Care 288 mg/dl (70-99)
[2025-04-26 05:37] LABS: Hematocrit 33.8 % (39.0-52.0); Hemoglobin 11.0 g/dL (13.0-18.0); Mean Corp Hgb Conc. 32.5 g/dL (33.0-37.0); Mean Corpuscular Volume 101.5 fL (80.0-94.0); Platelet Count 200 10^3/uL (130-400); Red Cell Dist. Width 18.8 % (11.5-14.5)
[2025-04-26 06:03] LABS: Blood Urea Nitrogen 62 mg/dl (9-20); Calcium 9.3 mg/dl (8.4-10.2); Carbon Dioxide 37 mmol/L (22-30); Chloride 92 mmol/L (98-107); Estimated Creatinine Clearance 25 ml/min; Glucose 89 mg/dl (70-99); Magnesium 1.5 mg/dl (1.6-2.3); Potassium 3.0 mmol/L (3.5-5.1); Sodium 135 mmol/L (135-145); eGFR 31.43
[2025-04-26] MEDS: KCL 40 MEQ PO (06:29)
[2025-04-26] MEDS: MAGNESIUM SULFATE 100 IV ×2 (06:35→09:08)
[2025-04-26] MEDS: LASIX 50 IV ×2 (06:36→18:14)
--- NOTE | 2025-04-26 07:28 | W.PN.HOSP.TC ---
Today's Communication/Plan
-
Continue diuresis
will need lower extremity arteriogram to assess femoral access for outpatient TAVR
Assessment / Plan
Assessment / Plan
79-year-old male with a medical history of CAD (status post CABG and stents), HFrEF, severe , A-fib (on Eliquis), carotid artery stenosis (status post left CEA), IDDM, and CKD stage IV who presented with increasing lower extremity edema and abrupt
weight gain. His home diuretic regimen has been altered frequently per patient report. At time of presentation he has approximately 20 pounds over his dry weight. Chest imaging shows pulmonary edema and bilateral pleural effusions. He has been
started on IV diuresis and admitted for further evaluation and management of acute on chronic HFrEF.
#Acute on chronic HFrEF:
- IV Lasix drip at rate of 40 mg/h; metolazone was also added in by nephrology
- Continue to monitor I's and O's and daily weights; reviewed stable since yesterday.
- Aggressively replete electrolytes with diuresis and replete as needed
- Appreciate cardiology input, recommending CT arteriogram of lower extremities when renal function is stabilized to further evaluate access for outpatient TAVR
#JAY on CKD stage IV:
- Suspect due to cardiorenal syndrome
- Renal function appears to have stabilized now on to IV Lasix drip, creatinine 2.1 today
- Baseline creatinine appears to be around 2.0
# Acute hypoxic respiratory failure
- Patient is in need of of oxygen at 3L via nasal canula at rest due to pulse ox of 86% on room air at rest. Patient sa02 increased to 93% on 3L. Patient required 6L 02 with ambulation. Oxygen will help to improve hypoxemia. Patient is mobile within
the home. Duoneb therapy has been tried and is ineffective in treating hypoxemia-related symptoms. Oxygen is needed to improve symptoms
#Hyponatremia:
- Appears chronic, stable
- Suspect hypervolemic
- Monitor with diuresis
#Hypokalemia
- Repeat potassium with. P.o. KCl
# Hypomagnesia
- Replete with 2g magnesium sulfate
#IDDM:
- Home regimen is Lantus 14 units at night and NovoLog 3 units with meals; Increase to Lantus 18 and NovoLog 5
- Continue Accu-Cheks, additional sliding scale as needed
- Adjust regimen as needed
- Diabetic diet
#A-fib:
- Chronic
- Currently rate controlled
- Continue anticoagulation with Eliquis
DVT prophylaxis: Eliquis
CODE STATUS: Full code
Anticipated Discharge: Within 24 hours
Subjective/Interval History
-
Date of Service: April 26, 2025
Seen and examined at bedside. Patient sitting in the chair. States that he feels great. Offers no new complaints. AFVSS.
Objective Data
-
Labs:
Laboratory Results
04/26/25
05:30
WBC 6.0
Hgb 11.0 L
Hct 33.8 L
Plt Count 200
Sodium 135
Potassium 3.0 L
Chloride 92 L
Carbon Dioxide 37 H
BUN 62 H
Creatinine 2.1 H
Glucose 89
Calcium 9.3
Vital Signs:
Vital Signs
Temp Pulse Resp BP Pulse Ox
98.0 F 86 14 123/73 93
04/26/25 03:10 04/26/25 03:10 04/26/25 03:10 04/26/25 03:10 04/26/25 03:10
I&O
04/25/25 04/26/25 04/27/25
06:59 06:59 06:59
Intake Total 840 / 840 1180 / 1180
Output Total 2335 / 2335 2074 / 2074
Balance -1495 / -1495 -895 / -895
Review of Systems
-
History Source: Patient
All other systems: Reviewed and negative (Except as documented)
Physical Exam
-
General: No Apparent Distress, Comfortable and Conversant
HEENT: Normocephalic
Respiratory: Clear to Auscultation, Non Labored Respirations and Other (Supplemental O2 3 L via nasal cannula)
Cardiac: Regular Rhythm, S1/S2 and Murmur
GI: Soft and Nontender
Musculoskeletal: Other (1+ bilateral lower extremity edema)
Neuro: Awake, Alert and Oriented
Psych: Calm
Data Reviewed
-
Labs: Labs Reviewed by me, Discussed with Physician and Discussed with Patient
[2025-04-26] MEDS: NICODERM TRANSDERMAL 14 MG TRANSDERM (07:52)
[2025-04-26] MEDS: ZYLOPRIM 150 MG PO ×2 (07:52→20:17)
[2025-04-26] MEDS: PROTONIX 40 MG PO ×2 (07:52→20:17)
[2025-04-26] MEDS: ELIQUIS 5 MG PO ×2 (07:52→20:17)
[2025-04-26] MEDS: KCL 20 MEQ PO ×2 (07:52→20:18)
[2025-04-26] MEDS: LIPITOR 80 MG PO (07:52)
[2025-04-26] MEDS: ZAROXOLYN 5 MG PO (07:52)
[2025-04-26] MEDS: NOVOLOG FLEXPEN-MODERATE RESISTANCE SC (07:58)
[2025-04-26 07:59] LABS: Glucose - Point of Care 126 mg/dl (70-99)
[2025-04-26] MEDS: KLOR-CON 40 MEQ PO ×2 (08:47→12:38)
[2025-04-26] MEDS: NOVOLOG FLEXPEN 5 UNITS SC ×3 (08:49→17:43)
[2025-04-26] MEDS: TOPROL XL 12.5 MG PO (08:53)
--- NOTE | 2025-04-26 10:16 | W.PN.NEPH.PH ---
Today's Communication / Plan
-
Maintain Lasix drip and metolazone
Replete potassium
Follow daily BMP
Goal is to maximize diuresis as kidney function tolerates
If contraction alkalosis exacerbates we will add acetazolamide
Assessment/Plan
-
IMP:
Acute on Chronic HFrEF
Abnormal Troponin - Likely secondary to CHF
JAY on CKD 3bbaseline cr at 2-follows Dr Yates
Paroxysmal atrial fibrillation
Chronic hyponatremia
COPD without exacerbation
Chronic heart failure reduced EF 30%
CAD/CABG x 4 (2001)
Medtronic single-chamber ICD, 2017
Carotid disease -s/p left CEA 2012.
Essential hypertension
DM 2
Severe aortic stenosis -previously declined TAVR workup.
Hyperlipidemia
Gout
h/o GI bleed 03/2025 , known h/o AVMS
traumatic left-sided rib fractures -due to fall last admit in March
Plan:
JAY down to 2.1 and remains grossly nonoliguric
A/w acute on chronic CHF also h/o severe
Replete potassium
TAVR eval per cards, now appears pursuing TAVR pending CT to evaluate femoral access
no emergent need of dialysis> poor candidate without TAVR
Weight is dropping on current IV diuretic (lasix gtt) and metolazone
Patient is at high risk with acute kidney injury persisting, with ongoing congestive heart failure despite high-dose diuretics and now transitioned to IV Lasix drip with improved response with the addition of metolazone
Again, I am fairly certain that patient would not tolerate dialysis hemodynamically given his severe aortic stenosis and compromised LV function
If he wishes to pursue TAVR but contrast will likely throw him into dialysis dependent renal failure
Patient weight is significantly elevated from last month admission 10-12kg and stagnant though significant improvement in output today we will continue to follow
Patient remains at high clinical risk with persistent renal failure requiring Lasix drip
-
-
Date of Service: April 26, 2025
CC / HPI / ROS
-
Chief Complaint:
Acute kidney injury
History of Present Illness:
Creatinine down to 2.1
Hemodynamically stable on midodrine
Remains on Lasix drip for decompensated congestive heart failure
Review of Systems:
Nonoliguric at 2liters
No fevers or chills
Shortness of breath noted
Weights are finally down
Labs
-
Labs:
WBC 6.0 10^3/uL (4.8-10.8) 04/26/25 05:30
RBC 3.33 10^6/uL (4.70-6.10) L 04/26/25 05:30
Hgb 11.0 g/dL (13.0-18.0) L 04/26/25 05:30
Hct 33.8 % (39.0-52.0) L 04/26/25 05:30
Plt Count 200 10^3/uL (130-400) 04/26/25 05:30
Sodium 135 mmol/L (135-145) 04/26/25 05:30
Potassium 3.0 mmol/L (3.5-5.1) L 04/26/25 05:30
Chloride 92 mmol/L (98-107) L 04/26/25 05:30
Carbon Dioxide 37 mmol/L (22-30) H 04/26/25 05:30
BUN 62 mg/dl (9-20) H 04/26/25 05:30
Creatinine 2.1 mg/dL (0.7-1.3) H 04/26/25 05:30
eGFR 31.43 04/26/25 05:30
Glucose 89 mg/dl (70-99) 04/26/25 05:30
Calcium 9.3 mg/dl (8.4-10.2) 04/26/25 05:30
Phosphorus 4.1 mg/dl (2.5-4.5) 04/21/25 11:18
Xbt-V-Jqhzmljfhzn Pept 54362 pg/ml 04/18/25 18:44
Albumin Cancelled 04/21/25 02:33
Physical Exam
-
Vital Signs:
Vital Signs
Temp Pulse Resp BP Pulse Ox
98.5 F 95 18 120/65 97
04/26/25 07:00 04/26/25 07:00 04/26/25 07:00 04/26/25 07:00 04/26/25 08:00
Cardiovascular:: Regular rate and rhythm
Respiratory:: Bilateral: Coarse (Decreased breath sounds at bases)
Lung Excursion:: Normal
Abdomen:: Nontender and Soft
Bowel Sounds:: Normal
Extremity Edema:: +1: Bilateral: (chronic)
Olea Catheter: No
[2025-04-26 11:59] LABS: Glucose - Point of Care 233 mg/dl (70-99)
[2025-04-26 11:59] LABS: Glucose - Point of Care 557 mg/dl (70-99)
[2025-04-26] MEDS: NON-FORMULARY ITEM 1 UNIT BOTH EYES ×2 (12:38→22:02)
[2025-04-26] MEDS: NOVOLOG FLEXPEN-MODERATE RESISTANCE 3 UNITS SC (12:39)
--- NOTE | 2025-04-26 15:03 | W.PN.CARDCBS ---
Addendum entered and electronically signed by Cordell Ponce MD 04/26/25 15:39:
I saw and examined the patient.
The Heating Equipment Installer's note was reviewed and I agree with the note.
Comment:
GEN: No distress, awake, Ox3
HEENT: supple, anicteric, mmm
LUNGS: bilat rhonchi
CV: Irreg, S1/S2, 2/6 syst LSB, S3+
ABD: soft, BS+, NT/ND
EXT: No edema
NEURO: Gross non-focal
SKIN: No rash
PLan:
Cont Lasix gtt with metolazone.
Creat down to 2.1. Replete K
Cont Toprol/Midodrine
Last Echo with EF 31%, mod MR. Mean gr 22.
will need eventual CT TAVR (when Creat stabilized)
Original Note:
Today's Communication / Plan
-
continue IV lasix gtt and metolazone
follow Cr
OP TAVR evaluation
GDMT of CM limited. continue toprol, midodrine
replete K/mag.
Impression / Plan
-
.
PCP: Dr. Eason
Primary Editor Dictionary: Dr. Sutton
Impression:
Admitted with acute HF and JAY 04/18/25
Acute on chronic HFrEF
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
Recent admission for shock, anemia, GI bleed 03/11/2025 until 03/17/2025
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
Severe since 2019
s/p TAVR work-up with MPG 27 at time of cath and not recommended TAVR 01/2023
RHC/LHC 03/15/2025 MPG 28 mmHg, stable CAD, current TAVR eval in process
ICM EF 31%, echo 03/12/2025
History of reduced ejection fraction heart failure with recovered EF
CAD status post CABGx4 in setting of [place] in 2001
carotid disease s/p left CEA in 2012
s/p Medtronic single chamber ICD 2017
Persistent Afib
Chronic Eliquis OAC
DM 2
Gout
Smoker, ongoing tobacco use
Echo 08/23/2019: EF 30-35%, global hypokinesis with inferolateral, inferior and basal septal akinesis, mild MR, sev pressure 47/28 mmHg
ECHO 12/03/22: EF 50%, mild LVH, stage III diastolic dysfunction, mild MR, severe with peak/mean gradients 54/28 mmHg, KAELYN 0.8 cm�, trace AR, mild TR, PAP 64 mmHg, mild dilation of aorta measuring 4.0 cm
Echo 10/09/2024: EF 35 to 40%, moderate eccentric MR, severe peak/mean 60/34 mmHg and KAELYN 0.8 cm sq, mild aortic insufficiency, moderate TR with PAP 64 mmHg
Echo 03/12/2025: EF 31%, global hypokinesis, moderate MR, severe peak/mean 41/22 mmHg and KAELYN 0.7 cm sq, mild aortic regurgitation, moderate to severe TR with PAP 72 mmHg
Right heart cath/left heart cath 03/15/2025: RA 14, PA 67/28, PCWP 24, LVEDP 18, CO/CI 5.4/3.0, aortic valve with mean pressure gradient 28 mmHg, KAELYN 0.95 cm�.
LAD 100% occluded midportion, NAVAS to LAD versus diagonal is patent to either mid LAD or diagonal branch with anterograde and retrograde filling well-developed septal collaterals from RCA noted. Ramus occluded at origin distal fills via patent free
radial to ramus graft. Circumflex 100% occluded at origin, RCA occluded with patent SVG to PDA. Graft angiography: NAVAS as above, free radial to ramus widely patent, SVG to OM1 100% occluded, SVG to PDA 50 to 55% stenosis in the mid
Plan:
-continue IV lasix gtt and metolazone 5mg daily as per nephrology. was taking po lasix 160mg BID and metolazone 2.5mg daily prior to admission
-Cr continues to improve, 2.1 on 04/26
-echo with EF 31%, severe and mod MR. undergoing evaluation for OP TAVR
-hypotension and CKD have limited GDMT of CM. currently on toprol 12.5mg daily and midodrine
-underwent cath 03/2025 with stable coronary anatomy. has history of CABG 2001.
-in rate controlled afib with frequent PVCs, couplets, triplets on review of tele overnight. replete K/mag
-continue eliquis. of note, had GIB 03/2025. hgb 11. on 04/26
-Medtronic single chamber ICD reprogrammed to VVI 50 on 03/13/25. Eventually consider upgrade to DC ICD or even JAVA SECURITY ARCHITECT-D to help with synchrony.
-full code
Progress Note - Editor Dictionary
Subjective
Date of Service: April 26, 2025
no complaints
Objective
Labs:
04/26/25 05:30
04/26/25 05:30
Labs
Hgb 11.0 g/dL (13.0-18.0) L 04/26/25 05:30
Hct 33.8 % (39.0-52.0) L 04/26/25 05:30
Plt Count 200 10^3/uL (130-400) 04/26/25 05:30
Sodium 135 mmol/L (135-145) 04/26/25 05:30
Potassium 3.0 mmol/L (3.5-5.1) L 04/26/25 05:30
BUN 62 mg/dl (9-20) H 04/26/25 05:30
Creatinine 2.1 mg/dL (0.7-1.3) H 04/26/25 05:30
Glucose 89 mg/dl (70-99) 04/26/25 05:30
Vital Signs and I&O:
Vital Signs
Temp Pulse Resp BP Pulse Ox
98.0 F 80 18 101/60 92
04/26/25 11:00 04/26/25 11:00 04/26/25 11:00 04/26/25 11:00 04/26/25 11:00
Vital Signs
Temp Pulse Resp BP Pulse Ox
98.0 F 80 18 101/60 92
04/26/25 11:00 04/26/25 11:00 04/26/25 11:00 04/26/25 11:00 04/26/25 11:00
Intake & Output
04/24/25 04/25/25 04/26/25 04/27/25
07:59 07:59 07:59 07:59
Intake Total 2039 / 2039 840 / 840 1180 / 1180
Output Total 1470 / 1470 2335 / 2335 2074 / 2074
Balance 570 / 570 -1495 / -1495 -895 / -895
[2025-04-26 16:45] LABS: Glucose - Point of Care 310 mg/dl (70-99)
[2025-04-26] MEDS: NOVOLOG FLEXPEN-MODERATE RESISTANCE 7 UNITS SC (17:43)
[2025-04-26 21:54] LABS: Glucose - Point of Care 210 mg/dl (70-99)
[2025-04-26] MEDS: LANTUS 0.18 UNITS SC (22:00)
[2025-04-26] MEDS: REMOVE NICOTINE PATCH 1 PATCH REMOVE (22:02)
[2025-04-27] VITALS (8 sets, daily range): BP systolic 93–129; BP diastolic 60–83; PULSE 80; O2SAT 95; BMI 28.9
[2025-04-27] MEDS: AMBIEN 5 MG PO ×2 (01:13→23:00)
--- NOTE | 2025-04-27 04:05 | PTCARENOTE ---
Pt's tele appeared to be changed from earlier. Notified [employer] DELIVERY DRIVER. Beatrice Brown Obtained EKG and placed tele on qtc monitoring. Pt is asymptomatic and vitals are stable. Will continue monitoring.
--- NOTE | 2025-04-27 05:43 | W.PN.UPDATE ---
Update Note
Progress Note Update
Ekg with
[2025-04-27 06:05] LABS: Hematocrit 31.4 % (39.0-52.0); Hemoglobin 10.5 g/dL (13.0-18.0); Mean Corp Hgb Conc. 33.4 g/dL (33.0-37.0); Mean Corpuscular Volume 99.7 fL (80.0-94.0); Platelet Count 191 10^3/uL (130-400); Red Cell Dist. Width 18.5 % (11.5-14.5)
[2025-04-27 06:31] LABS: Blood Urea Nitrogen 64 mg/dl (9-20); Calcium 9.0 mg/dl (8.4-10.2); Carbon Dioxide 35 mmol/L (22-30); Chloride 91 mmol/L (98-107); Estimated Creatinine Clearance 24 ml/min; Glucose 63 mg/dl (70-99); Magnesium 1.8 mg/dl (1.6-2.3); Potassium 3.5 mmol/L (3.5-5.1); Sodium 132 mmol/L (135-145); eGFR 29.72
[2025-04-27] MEDS: LASIX 50 IV (06:43)
[2025-04-27 07:08] LABS: Glucose - Point of Care 115 mg/dl (70-99)
--- NOTE | 2025-04-27 07:29 | W.PN.HOSP.TC ---
Today's Communication/Plan
-
d/c lasix drip; transition to po lasix per nephro
will need lower extremity arteriogram to assess femoral access for outpatient TAVR
Assessment / Plan
Assessment / Plan
79-year-old male with a medical history of CAD (status post CABG and stents), HFrEF, severe , A-fib (on Eliquis), carotid artery stenosis (status post left CEA), IDDM, and CKD stage IV who presented with increasing lower extremity edema and abrupt
weight gain. His home diuretic regimen has been altered frequently per patient report. At time of presentation he has approximately 20 pounds over his dry weight. Chest imaging shows pulmonary edema and bilateral pleural effusions. He has been
started on IV diuresis and admitted for further evaluation and management of acute on chronic HFrEF.
#Acute on chronic HFrEF:
- IV Lasix drip at rate of 40 mg/h; metolazone was also added in by nephrology; transition to po lasix today
- Continue to monitor I's and O's and daily weights; reviewed stable since yesterday.
- Aggressively replete electrolytes with diuresis and replete as needed
- Appreciate cardiology input, recommending CT arteriogram of lower extremities when renal function is stabilized to further evaluate access for outpatient TAVR
#JAY on CKD stage IV:
- Suspect due to cardiorenal syndrome
- Renal function appears to have stabilized now on to IV Lasix drip, creatinine 2.2 today
- Baseline creatinine appears to be around 2.0
# Acute hypoxic respiratory failure
- Patient is in need of of oxygen at 3L via nasal canula at rest due to pulse ox of 86% on room air at rest. Patient sa02 increased to 93% on 3L. Patient required 6L 02 with ambulation. Oxygen will help to improve hypoxemia. Patient is mobile within
the home. Duoneb therapy has been tried and is ineffective in treating hypoxemia-related symptoms. Oxygen is needed to improve symptoms
#Hyponatremia:
- Appears chronic, stable
- Suspect hypervolemic
- Monitor with diuresis
#Hypokalemia
- sable
# Hypomagnesia
- stable
#IDDM:
- Home regimen is Lantus 14 units at night and NovoLog 3 units with meals; Increase to Lantus 18 and NovoLog 5
- Continue Accu-Cheks, additional sliding scale as needed
- Adjust regimen as needed
- Diabetic diet
#A-fib:
- Chronic
- Currently rate controlled
- Continue anticoagulation with Eliquis
DVT prophylaxis: Eliquis
CODE STATUS: Full code
Anticipated Discharge: 24 - 48 hours
Subjective/Interval History
-
Date of Service: April 27, 2025
seen and examined at bedside. AFVSS. no new complaints.
Objective Data
-
Labs:
Laboratory Results
04/27/25
05:47
WBC 5.2
Hgb 10.5 L
Hct 31.4 L
Plt Count 191
Sodium 132 L
Potassium 3.5
Chloride 91 L
Carbon Dioxide 35 H
BUN 64 H
Creatinine 2.2 H
Glucose 63 L
Calcium 9.0
Vital Signs:
Vital Signs
Temp Pulse Resp BP Pulse Ox
97.9 F 79 20 106/61 99
04/27/25 03:00 04/27/25 03:00 04/27/25 03:00 04/27/25 03:00 04/27/25 03:00
I&O
04/26/25 04/27/25 04/28/25
06:59 06:59 06:59
Intake Total 1180 / 1180 1140 / 1140
Output Total 2074 / 2074 600 / 600
Balance -895 / -895 540 / 540
Review of Systems
-
History Source: Patient
All other systems: Reviewed and negative (Except as documented)
Physical Exam
-
General: No Apparent Distress, Comfortable and Conversant
HEENT: Normocephalic
Respiratory: Clear to Auscultation, Non Labored Respirations and Other (Supplemental O2 3 L via nasal cannula)
Cardiac: Regular Rhythm, S1/S2 and Murmur
GI: Soft and Nontender
Musculoskeletal: Other (1+ bilateral lower extremity edema)
Neuro: Awake, Alert and Oriented
Psych: Calm
Data Reviewed
-
Labs: Labs Reviewed by me, Discussed with Physician and Discussed with Patient
[2025-04-27 08:01] LABS: Glucose - Point of Care 108 mg/dl (70-99)
[2025-04-27] MEDS: NOVOLOG FLEXPEN-MODERATE RESISTANCE SC (08:53)
[2025-04-27] MEDS: ELIQUIS 5 MG PO ×2 (08:54→21:35)
[2025-04-27] MEDS: LIPITOR 80 MG PO (08:54)
[2025-04-27] MEDS: KCL 20 MEQ PO ×2 (08:55→21:36)
[2025-04-27] MEDS: ZYLOPRIM 150 MG PO ×2 (08:55→21:36)
[2025-04-27] MEDS: ZAROXOLYN 5 MG PO (08:56)
[2025-04-27] MEDS: NICODERM TRANSDERMAL 14 MG TRANSDERM (08:57)
[2025-04-27] MEDS: TOPROL XL PO (08:57)
[2025-04-27] MEDS: PROTONIX 40 MG PO ×2 (08:57→21:39)
[2025-04-27] MEDS: NOVOLOG FLEXPEN 5 UNITS SC ×3 (08:58→17:36)
--- NOTE | 2025-04-27 10:00 | HFEDUCATE ---
79 yo male admitted with progressive increase in edema. Past medical history includes acute on chronic HFrEF, JAY on CKD, presistant A-fib, severe , hypotension, DM2, BPH and recent GI bleed. His current ejection fraction by echocardiogram is
35-40%%. He lives at home with his and daughters. He reports following a low sodium diet and a 48oz fluid restriction per day. He has a scale at home and weighs himself daily.
I provided HF education and discussed the usual lifestyle recommendations. I advised he continue to follow a low sodium diet of 3806-6724 mg. per day, and limit it to 500-750 mg. per meal. I advised a 48oz fluid restriction per day and discussed
ways to achieve the recommendations. I also advised he continue weighing himself daily and monitoring for any slight weight gain. I explained how to monitor for exacerbations. We discussed other alarming symptoms to watch for and when to notify his
provider. We discussed need for medications.
Recommendations:
Continue all HF recommended medications as ordered on discharge.
Limit sodium intake to <500-750 mg per meal.
Limit fluid intake to <48 oz per day.
Daily weights and contact provider for any weight gain >3lbs in one day or 5lbs in one week.
Follow up with provider as recommended.
--- NOTE | 2025-04-27 10:20 | W.PN.CARDCBS ---
Addendum entered and electronically signed by Cordell Ponce MD 04/27/25 12:09:
I saw and examined the patient.
The Lecturer In Marketing's note was reviewed and I agree with the note.
Comment:
GEN: No distress, awake, Ox3
HEENT: supple, anicteric, mmm
LUNGS: scatt rhonchi
CV: Reg, S1/S2, /6 syst LSB, no gallop
ABD: soft, BS+, NT/ND
EXT: ++ edema
NEURO: Gross non-focal
SKIN: No rash
Plan:
Weight overall about the same. Creatinine at 2.2. Discussed case with nephrology and plan is to switch back to IV Lasix 160 IV 3 times daily with Zaroxolyn
Plan will be for CT TAVR R of lower extremities tomorrow.
Will continue to follow kidney function.
Blood pressure is low but stable. Continue Toprol, Eliquis, and midodrine.
Remains in rate controlled atrial fibrillation with PVCs.
Eventual plan is to proceed with transcatheter aortic valve replacement.
Original Note:
Today's Communication / Plan
-
Continue IV diuresis per nephrology
Replete potassium and magnesium
Wean oxygen as tolerated
will need eventual CT TAVR (when Creat stabilized)
Impression / Plan
-
.
PCP: Dr. Eason
Primary Returns Processor: Dr. Sutton
Impression:
Admitted 04/18/2025 with acute HF and JAY
Acute on chronic HFrEF, proBNP 18,500
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
Recent admission for shock, anemia, GI bleed 03/11/2025 until 03/17/2025
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
Severe since 2019
s/p TAVR work-up with MPG 27 at time of cath and not recommended TAVR 01/2023
RHC/LHC 03/15/2025 MPG 28 mmHg, stable CAD, current TAVR eval in process
ICM EF 31%, echo 03/12/2025
History of reduced ejection fraction heart failure with recovered EF
CAD status post CABGx4 in setting of MD in 2001
carotid disease s/p left CEA in 2012
s/p Medtronic single chamber ICD 2017
Persistent Afib
Chronic Eliquis OAC
DM 2
Gout
Smoker, ongoing tobacco use
Echo 08/23/2019: EF 30-35%, global hypokinesis with inferolateral, inferior and basal septal akinesis, mild MR, sev pressure 47/28 mmHg
ECHO 12/03/22: EF 50%, mild LVH, stage III diastolic dysfunction, mild MR, severe with peak/mean gradients 54/28 mmHg, KAELYN 0.8 cm�, trace AR, mild TR, PAP 64 mmHg, mild dilation of aorta measuring 4.0 cm
Echo 10/09/2024: EF 35 to 40%, moderate eccentric MR, severe peak/mean 60/34 mmHg and KAELYN 0.8 cm sq, mild aortic insufficiency, moderate TR with PAP 64 mmHg
Echo 03/12/2025: EF 31%, global hypokinesis, moderate MR, severe peak/mean 41/22 mmHg and KAELYN 0.7 cm sq, mild aortic regurgitation, moderate to severe TR with PAP 72 mmHg
Right heart cath/left heart cath 03/15/2025: RA 14, PA 67/28, PCWP 24, LVEDP 18, CO/CI 5.4/3.0, aortic valve with mean pressure gradient 28 mmHg, KAELYN 0.95 cm�.
LAD 100% occluded midportion, NAVAS to LAD versus diagonal is patent to either mid LAD or diagonal branch with anterograde and retrograde filling well-developed septal collaterals from RCA noted. Ramus occluded at origin distal fills via patent free
radial to ramus graft. Circumflex 100% occluded at origin, RCA occluded with patent SVG to PDA. Graft angiography: NAVAS as above, free radial to ramus widely patent, SVG to OM1 100% occluded, SVG to PDA 50 to 55% stenosis in the mid
Plan:
-Admitted 04/18/2025 with acute HF and JAY 04/18/25
-Ongoing diuresis. Was on IV Lasix drip. Now on IV lasix 160 mg IV TID and metolazone 5mg daily. Diuretics being managed by nephrology. was taking po lasix 160mg BID and metolazone 2.5mg daily prior to admission
-Cr stable at 2.2 on 04/27, peaked 2.8
-hypotension and CKD have limited GDMT of CM. currently on toprol 12.5mg daily and midodrine
-echo with EF 31%, severe and mod MR. undergoing evaluation for OP TAVR
-underwent cath 03/2025 with stable coronary anatomy. has history of CABG 2001.
-in rate controlled afib with frequent PVCs, couplets, triplets on review of tele overnight. K+ 3.5, mag 1.8 will replete both K/mag
-continue eliquis. of note, had GIB 03/2025. hgb 10.5. on 04/27
-Medtronic single chamber ICD reprogrammed to VVI 50 on 03/13/25. Eventually consider upgrade to DC ICD or even CORE PASTER-D to help with synchrony.
-full code
HPI 04/19/2025:
History of Present Illness:
Patient came to the ER 04/18/2025 with weight gain and increasing lower extremity edema despite up titration of outpatient diuretics. He is a 79-year-old male with a history of permanent atrial fibrillation, aortic stenosis with previous evaluation
for TAVR with repeat eval currently undergoing( eval in 2016, 2022-mean gradient on [facility] 27 and TAVR not advised), coronary artery disease, status post CABG, recurrent GI bleeds, chronic kidney disease, ICD, anemia, smoker. He had a previous
admission to [facility] 03/11/2025 - 03/17/2025 with near syncope and a fall, shock. Hemoglobin 6.7, creatinin e 2.6 (baseline 2.0) diuretics (Lasix, Metolazone, Spironolactone) and Coreg held most of admission and restarted at lower outpatient dose.
Required midodrine for BP support. Seen by GI and GI bleed thought to be due to AVMs. 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 Eliquis resumed 5 days after endoscopy, at
lower dose 2.5 mg bid. Repeat TAVR evaluation performed with echo and right and left heart cath (mean gradient 28)and patient is being considered for TAVR, structural heart team plans to discuss him at meeting tomorrow.
CT TAVR 04/16/2025 with measurements to be added as separate addendum, had moderate right and small left pleural effusion
Patient was discharged on 03/31/2025 furosemide 40 mg twice daily, midodrine 5 mg 3 times daily, apixaban 2.5 mg twice daily (dose lowered due to CKD) and atorvastatin. Metolazone, spironolactone, and carvedilol were all held.
Weight progressively increasing since last discharge on 03/17/2025, weight at that time 151 pounds, weight on admission 04/18/2025 180 pounds. Outpatient Lasix has been uptitrated over past month to 120 mg twice daily and metolazone restarted at 2.5
mg --, initially with stable creatinine at 1.56 on 04/02/2025, but 2.1 on 04/18/2025 and progressive weight gain.
Progress Note - Returns Processor
Subjective
Date of Service: April 27, 2025
Patient seen and examined. Patient resting comfortably in bed still on oxygen. Reports he is feeling better.
Objective
Labs:
04/27/25 05:47
04/27/25 05:47
Labs
Hgb 10.5 g/dL (13.0-18.0) L 04/27/25 05:47
Hct 31.4 % (39.0-52.0) L 04/27/25 05:47
Plt Count 191 10^3/uL (130-400) 04/27/25 05:47
Sodium 132 mmol/L (135-145) L 04/27/25 05:47
Potassium 3.5 mmol/L (3.5-5.1) 04/27/25 05:47
BUN 64 mg/dl (9-20) H 04/27/25 05:47
Creatinine 2.2 mg/dL (0.7-1.3) H 04/27/25 05:47
Glucose 63 mg/dl (70-99) L 04/27/25 05:47
Vital Signs and I&O:
Vital Signs
Temp Pulse Resp BP Pulse Ox
97.8 F 105 17 98/64 93
04/27/25 07:49 04/27/25 07:49 04/27/25 07:49 04/27/25 07:49 04/27/25 07:49
Vital Signs
Temp Pulse Resp BP Pulse Ox
97.8 F 105 17 98/64 93
04/27/25 07:49 04/27/25 07:49 04/27/25 07:49 04/27/25 07:49 04/27/25 07:49
Intake & Output
04/25/25 04/26/25 04/27/25 04/28/25
06:59 06:59 06:59 06:59
Intake Total 840 / 840 1180 / 1180 1140 / 1140
Output Total 2335 / 2335 2075 / 2075 600 / 600
Balance -1495 / -1495 -895 / -895 540 / 540
Physical Exam
Physical Exam
GEN: No distress, sleepy but arouses upon prompting and answers questions appropriately, Ox3
HEENT: supple, anicteric, mmm
LUNGS: Mildly decreased at bases otherwise CTA, no wheezes/rales
CV: Irregularly irregular, 2/6 syst murmur
ABD: soft, BS+, NT/ND
EXT: Trace to +1 lower extremity edema, skin changes consistent with chronic venous stasis
NEURO: Gross non-focal
SKIN: No rash,, warm, dry, pink
[2025-04-27] MEDS: MAGNESIUM OXIDE 400 MG PO (11:28)
[2025-04-27] MEDS: KCL 40 MEQ PO (11:28)
[2025-04-27 11:45] LABS: Glucose - Point of Care 241 mg/dl (70-99)
--- NOTE | 2025-04-27 12:11 | W.PN.NEPH.PH ---
Today's Communication / Plan
-
Changed to bolus Lasix rather than drip
Assessment/Plan
-
IMP:
Acute on Chronic HFrEF
Abnormal Troponin - Likely secondary to CHF
JAY on CKD 3bbaseline cr at 2-follows Dr Yates
Paroxysmal atrial fibrillation
Chronic hyponatremia
COPD without exacerbation
Chronic heart failure reduced EF 30%
CAD/CABG x 4 (2001)
Medtronic single-chamber ICD, 2018
Carotid disease -s/p left CEA 2012.
Essential hypertension
DM 2
Severe aortic stenosis -previously declined TAVR workup.
Hyperlipidemia
Gout
h/o GI bleed 03/2025 , known h/o AVMS
traumatic left-sided rib fractures -due to fall last admit in March
Plan:
JAY down to 2.1 and remains grossly nonoliguric
A/w acute on chronic CHF also h/o severe
Replete potassium
TAVR eval per cards, now pursuing TAVR pending CT to evaluate femoral access
no emergent need of dialysis> poor candidate without TAVR
Patient is at high risk with acute kidney injury persisting, with ongoing congestive heart failure despite high-dose diuretics
Discontinue Lasix drip as I would expect more output than we are seeing
Started bolus Lasix 160 mg 3 times daily for 48-hour potassium potassium
Discussed with cardiology will be proceeding CT tomorrow
-
-
Date of Service: April 27, 2025
CC / HPI / ROS
-
Chief Complaint:
Acute kidney injury
History of Present Illness:
Creatinine down to 2.1
Hemodynamically stable on midodrine
Remains on Lasix drip for decompensated congestive heart failure
Review of Systems:
Nonoliguric at 2liters
No fevers or chills
No obvious shortness of breath
Weights are finally down
Labs
-
Labs:
WBC 5.2 10^3/uL (4.8-10.8) 04/27/25 05:47
RBC 3.15 10^6/uL (4.70-6.10) L 04/27/25 05:47
Hgb 10.5 g/dL (13.0-18.0) L 04/27/25 05:47
Hct 31.4 % (39.0-52.0) L 04/27/25 05:47
Plt Count 191 10^3/uL (130-400) 04/27/25 05:47
Sodium 132 mmol/L (135-145) L 04/27/25 05:47
Potassium 3.5 mmol/L (3.5-5.1) 04/27/25 05:47
Chloride 91 mmol/L (98-107) L 04/27/25 05:47
Carbon Dioxide 35 mmol/L (22-30) H 04/27/25 05:47
BUN 64 mg/dl (9-20) H 04/27/25 05:47
Creatinine 2.2 mg/dL (0.7-1.3) H 04/27/25 05:47
eGFR 29.72 04/27/25 05:47
Glucose 63 mg/dl (70-99) L 04/27/25 05:47
Calcium 9.0 mg/dl (8.4-10.2) 04/27/25 05:47
Phosphorus 4.1 mg/dl (2.5-4.5) 04/21/25 11:18
Kdx-F-Cphyolzjlph Pept 95231 pg/ml 04/18/25 18:44
Albumin Cancelled 04/21/25 02:33
Physical Exam
-
Vital Signs:
Vital Signs
Temp Pulse Resp BP Pulse Ox
97.5 F 94 15 93/65 96
04/27/25 11:16 04/27/25 11:16 04/27/25 11:16 04/27/25 11:16 04/27/25 11:16
Cardiovascular:: Regular rate and rhythm
Respiratory:: Bilateral: Coarse (Decreased breath sounds at bases)
Lung Excursion:: Normal
Abdomen:: Nontender and Soft
Bowel Sounds:: Normal
Extremity Edema:: +1: Bilateral: (chronic)
Olea Catheter: No
[2025-04-27] MEDS: NOVOLOG FLEXPEN-MODERATE RESISTANCE 1 UNITS SC (12:56)
[2025-04-27] MEDS: NON-FORMULARY ITEM 1 UNIT BOTH EYES ×2 (12:57→21:48)
--- NOTE | 2025-04-27 14:34 | CM ---
Patient to return to home with [employer] and home oxygen through [employer].
Plan; Home with [employer] and [employer] for home oxygen.
[2025-04-27] MEDS: LASIX 160 MG IV ×2 (16:01→21:47)
[2025-04-27 16:29] LABS: Glucose - Point of Care 220 mg/dl (70-99)
[2025-04-27] MEDS: NOVOLOG FLEXPEN-MODERATE RESISTANCE 3 UNITS SC (17:36)
[2025-04-27 21:11] LABS: Glucose - Point of Care 212 mg/dl (70-99)
[2025-04-27] MEDS: LANTUS 0.18 UNITS SC (21:48)
[2025-04-27] MEDS: REMOVE NICOTINE PATCH 1 PATCH REMOVE (21:49)
[2025-04-28 03:00] VITALS: BP 128/84
[2025-04-28 04:37] VITALS: BMI 28.4
[2025-04-28] MEDS: TYLENOL 650 MG PO (05:43)
[2025-04-28 06:48] LABS: Hematocrit 31.8 % (39.0-52.0); Hemoglobin 10.6 g/dL (13.0-18.0); Mean Corp Hgb Conc. 33.3 g/dL (33.0-37.0); Mean Corpuscular Volume 100.3 fL (80.0-94.0); Nucleated Red Blood Cells % 0 % (-); Platelet Count 194 10^3/uL (130-400); Red Cell Dist. Width 17.6 % (11.5-14.5)
[2025-04-28 07:15] LABS: Blood Urea Nitrogen 72 mg/dl (9-20); Calcium 9.4 mg/dl (8.4-10.2); Carbon Dioxide 37 mmol/L (22-30); Chloride 87 mmol/L (98-107); Estimated Creatinine Clearance 23 ml/min; Glucose 185 mg/dl (70-99); Magnesium 1.8 mg/dl (1.6-2.3); Potassium 4.0 mmol/L (3.5-5.1); Sodium 129 mmol/L (135-145); eGFR 28.18
--- NOTE | 2025-04-28 07:18 | W.PN.HOSP.TC ---
Today's Communication/Plan
-
CT TAVR today
Continue IV diuresis per nephro
Start acetazolamide 250 IV twice daily
Assessment / Plan
Assessment / Plan
79-year-old male with a medical history of CAD (status post CABG and stents), HFrEF, severe , A-fib (on Eliquis), carotid artery stenosis (status post left CEA), IDDM, and CKD stage IV who presented with increasing lower extremity edema and abrupt
weight gain. His home diuretic regimen has been altered frequently per patient report. At time of presentation he has approximately 20 pounds over his dry weight. Chest imaging shows pulmonary edema and bilateral pleural effusions. He has been
started on IV diuresis and admitted for further evaluation and management of acute on chronic HFrEF.
#Acute on chronic HFrEF:
- IV Lasix drip at rate of 40 mg/h; metolazone was also added in by nephrology; transition to po lasix today
- Continue to monitor I's and O's and daily weights; 1.4kg drop Since yesterday
- Aggressively replete electrolytes with diuresis and replete as needed
- Appreciate cardiology input, recommending CT arteriogram of lower extremities when renal function is stabilized to further evaluate access for outpatient TAVR; Ordered for today
#JAY on CKD stage IV:
- Suspect due to cardiorenal syndrome
- Renal function appears to have stabilized now on to IV Lasix drip, creatinine 2.3 today
- Baseline creatinine appears to be around 2.0
Start acetazolamide 250 mg twice daily will
# Acute hypoxic respiratory failure
- Patient is in need of of oxygen at 3L via nasal canula at rest due to pulse ox of 86% on room air at rest. Patient sa02 increased to 93% on 3L. Patient required 6L 02 with ambulation. Oxygen will help to improve hypoxemia. Patient is mobile within
the home. Duoneb therapy has been tried and is ineffective in treating hypoxemia-related symptoms. Oxygen is needed to improve symptoms
#Hyponatremia:
- Appears chronic, Slight drop
- Suspect hypervolemic
- Monitor with diuresis
#Hypokalemia
- sable
# Hypomagnesia
- stable
#IDDM:
- Home regimen is Lantus 14 units at night and NovoLog 3 units with meals; Increase to Lantus 18 and NovoLog 5
- Continue Accu-Cheks, additional sliding scale as needed
- Adjust regimen as needed
- Diabetic diet
#A-fib:
- Chronic
- Currently rate controlled
- Continue anticoagulation with Eliquis
DVT prophylaxis: Eliquis
CODE STATUS: Full code
Anticipated Discharge: 24 - 48 hours
Subjective/Interval History
-
Date of Service: April 28, 2025
Seen and examined at bedside. Patient states that he is tired because he did not sleep well last night. Afebrile. Blood pressure on the softer side
Objective Data
-
Labs:
Laboratory Results
04/28/25
06:33
WBC 6.1
Hgb 10.6 L
Hct 31.8 L
Plt Count 194
Sodium 129 L
Potassium 4.0
Chloride 87 L
Carbon Dioxide 37 H
BUN 72 H
Creatinine 2.3 H
Glucose 185 H
Calcium 9.4
Vital Signs:
Vital Signs
Temp Pulse Resp BP Pulse Ox
97.8 F 94 18 128/84 97
04/28/25 03:00 04/28/25 03:00 04/28/25 03:00 04/28/25 03:00 04/28/25 03:00
I&O
04/27/25 04/28/25 04/29/25
06:59 06:59 06:59
Intake Total 1140 / 1140 2049
Output Total 600 / 600 2500 / 2500
Balance 540 / 540 -450 / -450
Review of Systems
-
History Source: Patient
All other systems: Reviewed and negative (Except as documented)
Physical Exam
-
General: No Apparent Distress, Comfortable and Other (Sleepy)
HEENT: Normocephalic
Respiratory: Clear to Auscultation, Non Labored Respirations and Other (Supplemental O2 3 L via nasal cannula)
Cardiac: Regular Rhythm, S1/S2 and Murmur
GI: Soft and Nontender
Musculoskeletal: Other (1+ bilateral lower extremity edema)
Neuro: Nonfocal/Grossly Intact
Psych: Calm
Data Reviewed
-
Labs: Labs Reviewed by me, Discussed with Physician and Discussed with Patient
[2025-04-28 07:50] VITALS: BP 103/55
--- NOTE | 2025-04-28 08:20 | W.PN.CARDCBS ---
Today's Communication / Plan
-
Wt coming down, 3 lbs down from last visit. Cr 2.3 Apr 28 and was 2.2 Apr 27.
Cont IV Lasix 160 IV 3 times daily with Zaroxolyn as per nephrology
Midodrine for bp support
Echo with EF 31%, severe and mod MR. undergoing evaluation for OP TAVR
Plan will be for CT TAVR R of lower extremities.
Cont to monitor cr closely
Pt knows he is at high risk of worsening acute on chronic renal faillure with contrast and that he continues with HF despite high-dose diuretics
He underwent cath 03/2025 with stable coronary anatomy. has history of CABG 2001.
Bp remains stable but on the lower side.
Cont Toprol and midodrine
Remains in rate controlled atrial fibrillation with PVCs.
Cont Toprol and Eliquis
H/H stable on Eliquis with hx of GI bleed March 2025.
Eventual plan is to proceed with transcatheter aortic valve replacement.
Medtronic single chamber ICD reprogrammed to VVI 50 on 03/13/25, eventually could consider upgrae to ICD or [employer]-D to help with synchrony
Impression / Plan
-
.
PCP: Dr. Eason
Primary Aerodynamic Consultant: Dr. Sutton
Impression:
Admitted 04/18/2025 with acute HF and JAY
Acute on chronic HFrEF, proBNP 18,500
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
Recent admission for shock, anemia, GI bleed 03/11/2025 until 03/17/2025
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
Severe since 2018
s/p TAVR work-up with MPG 27 at time of cath and not recommended TAVR 01/2023
RHC/LHC 03/15/2025 MPG 28 mmHg, stable CAD, current TAVR eval in process
ICM EF 31%, echo 03/12/2025
History of reduced ejection fraction heart failure with recovered EF
CAD status post CABGx4 in setting of [place] in 2001
carotid disease s/p left CEA in 2012
s/p Medtronic single chamber ICD 2017
Persistent Afib
Chronic Eliquis OAC
DM 2
Gout
Smoker, ongoing tobacco use
Echo 08/23/2019: EF 30-35%, global hypokinesis with inferolateral, inferior and basal septal akinesis, mild MR, sev pressure 47/28 mmHg
ECHO 12/03/22: EF 50%, mild LVH, stage III diastolic dysfunction, mild MR, severe with peak/mean gradients 54/28 mmHg, KAELYN 0.8 cm�, trace AR, mild TR, PAP 64 mmHg, mild dilation of aorta measuring 4.0 cm
Echo 10/09/2024: EF 35 to 40%, moderate eccentric MR, severe peak/mean 60/34 mmHg and KAELYN 0.8 cm sq, mild aortic insufficiency, moderate TR with PAP 64 mmHg
Echo 03/12/2025: EF 31%, global hypokinesis, moderate MR, severe peak/mean 41/22 mmHg and KAELYN 0.7 cm sq, mild aortic regurgitation, moderate to severe TR with PAP 72 mmHg
Right heart cath/left heart cath 03/15/2025: RA 14, PA 67/28, PCWP 24, LVEDP 18, CO/CI 5.4/3.0, aortic valve with mean pressure gradient 28 mmHg, KAELYN 0.95 cm�.
LAD 100% occluded midportion, NAVAS to LAD versus diagonal is patent to either mid LAD or diagonal branch with anterograde and retrograde filling well-developed septal collaterals from RCA noted. Ramus occluded at origin distal fills via patent free
radial to ramus graft. Circumflex 100% occluded at origin, RCA occluded with patent SVG to PDA. Graft angiography: NAVAS as above, free radial to ramus widely patent, SVG to OM1 100% occluded, SVG to PDA 50 to 55% stenosis in the mid
Plan:
-Admitted 04/18/2025 with acute HF and JAY 04/18/25
Wt coming down, 3 lbs down from last visit. Cr 2.3 Apr 28 and was 2.2 Apr 27.
Cont IV Lasix 160 IV 3 times daily with Zaroxolyn as per nephrology
Midodrine for bp support
Echo with EF 31%, severe and mod MR. undergoing evaluation for OP TAVR
Plan will be for CT TAVR R of lower extremities.
Cont to monitor cr closely
Pt knows he is at high risk of worsening acute on chronic renal faillure with contrast and that he continues with HF despite high-dose diuretics
He underwent cath 03/2025 with stable coronary anatomy. has history of CABG 2001.
Bp remains stable but on the lower side.
Cont Toprol and midodrine
Remains in rate controlled atrial fibrillation with PVCs.
Cont Toprol and Eliquis
H/H stable on Eliquis with hx of GI bleed March 2025.
Eventual plan is to proceed with transcatheter aortic valve replacement.
Medtronic single chamber ICD reprogrammed to VVI 50 on 03/13/25, eventually could consider upgrae to ICD or [employer]-D to help with synchrony
HPI 04/19/2025:
History of Present Illness:
Patient came to the ER 04/18/2025 with weight gain and increasing lower extremity edema despite up titration of outpatient diuretics. He is a 79-year-old male with a history of permanent atrial fibrillation, aortic stenosis with previous evaluation
for TAVR with repeat eval currently undergoing( eval in 2016, 2022-mean gradient on [facility] 27 and TAVR not advised), coronary artery disease, status post CABG, recurrent GI bleeds, chronic kidney disease, ICD, anemia, smoker. He had a previous
admission to [facility] 03/11/2025 - 03/17/2025 with near syncope and a fall, shock. Hemoglobin 6.7, creatinin e 2.6 (baseline 2.0) diuretics (Lasix, Metolazone, Spironolactone) and Coreg held most of admission and restarted at lower outpatient dose.
Required midodrine for BP support. Seen by GI and GI bleed thought to be due to AVMs. 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 Eliquis resumed 5 days after endoscopy, at
lower dose 2.5 mg bid. Repeat TAVR evaluation performed with echo and right and left heart cath (mean gradient 28)and patient is being considered for TAVR, structural heart team plans to discuss him at meeting tomorrow.
CT TAVR 04/16/2025 with measurements to be added as separate addendum, had moderate right and small left pleural effusion
Patient was discharged on 03/31/2025 furosemide 40 mg twice daily, midodrine 5 mg 3 times daily, apixaban 2.5 mg twice daily (dose lowered due to CKD) and atorvastatin. Metolazone, spironolactone, and carvedilol were all held.
Weight progressively increasing since last discharge on 03/17/2025, weight at that time 151 pounds, weight on admission 04/18/2025 180 pounds. Outpatient Lasix has been uptitrated over past month to 120 mg twice daily and metolazone restarted at 2.5
mg --, initially with stable creatinine at 1.56 on 04/02/2025, but 2.1 on 04/18/2025 and progressive weight gain.
Progress Note - Aerodynamic Consultant
Subjective
Date of Service: April 28, 2025
Pt seen and examined. No complaints. No chest pain or shortness of breath.
Objective
Labs:
04/28/25 06:33
04/28/25 06:33
Labs
Hgb 10.6 g/dL (13.0-18.0) L 04/28/25 06:33
Hct 31.8 % (39.0-52.0) L 04/28/25 06:33
Plt Count 194 10^3/uL (130-400) 04/28/25 06:33
Sodium 129 mmol/L (135-145) L 04/28/25 06:33
Potassium 4.0 mmol/L (3.5-5.1) 04/28/25 06:33
BUN 72 mg/dl (9-20) H 04/28/25 06:33
Creatinine 2.3 mg/dL (0.7-1.3) H 04/28/25 06:33
Glucose 185 mg/dl (70-99) H 04/28/25 06:33
Vital Signs and I&O:
Vital Signs
Temp Pulse Resp BP Pulse Ox
98.4 F 77 16 103/55 100
04/28/25 07:50 04/28/25 07:50 04/28/25 07:50 04/28/25 07:50 04/28/25 07:50
Vital Signs
Temp Pulse Resp BP Pulse Ox
98.4 F 77 16 103/55 100
04/28/25 07:50 04/28/25 07:50 04/28/25 07:50 04/28/25 07:50 04/28/25 07:50
Intake & Output
04/26/25 04/27/25 04/28/25 04/29/25
06:59 06:59 06:59 06:59
Intake Total 1180 / 1180 1140 / 1140 2049
Output Total 2074 / 2074 600 / 600 2500 / 2500
Balance -895 / -895 540 / 540 -450 / -450
Physical Exam
Physical Exam
General: No acute distress, AAOX3
Neck: Negative JVD
Heart: Irregularly irregular, Negative S3 positive S1/S2, Negative S4, No murmur
Lungs: CTA b/l, negative wheezes/rales/rhonchi
Abd: Positive BS, NT/ND, neg rebound/rigidity/guarding
Ext: Negative cyanosis/clubbing/edema
Neuro: nonfocal
[2025-04-28 09:11] LABS: Glucose - Point of Care 179 mg/dl (70-99)
[2025-04-28] MEDS: ZYLOPRIM 150 MG PO ×2 (10:24→21:59)
[2025-04-28] MEDS: ZAROXOLYN 5 MG PO (10:24)
[2025-04-28] MEDS: KCL 20 MEQ PO ×2 (10:24→21:59)
[2025-04-28] MEDS: TOPROL XL 12.5 MG PO (10:24)
[2025-04-28] MEDS: LASIX 160 MG IV ×3 (10:25→23:27)
[2025-04-28] MEDS: PROTONIX 40 MG PO ×2 (10:25→21:56)
[2025-04-28] MEDS: ELIQUIS 5 MG PO ×2 (10:25→21:58)
[2025-04-28] MEDS: LIPITOR 80 MG PO (10:25)
[2025-04-28] MEDS: NICODERM TRANSDERMAL 14 MG TRANSDERM (10:26)
[2025-04-28] MEDS: NOVOLOG FLEXPEN 5 UNITS SC ×3 (10:29→17:26)
[2025-04-28] MEDS: NOVOLOG FLEXPEN-MODERATE RESISTANCE 1 UNITS SC (10:30)
[2025-04-28 11:10] VITALS: BP 114/63
[2025-04-28 11:30] LABS: Glucose - Point of Care 209 mg/dl (70-99)
[2025-04-28] MEDS: NOVOLOG FLEXPEN-MODERATE RESISTANCE 3 UNITS SC (12:14)
[2025-04-28] MEDS: DIAMOX 2.5 MG IV ×2 (12:15→22:35)
[2025-04-28] MEDS: NON-FORMULARY ITEM 1 UNIT BOTH EYES ×2 (12:15→22:01)
--- NOTE | 2025-04-28 12:47 | W.PN.NEPH.PH ---
Today's Communication / Plan
-
Diamox added
Decrease Lasix to twice daily
Assessment/Plan
-
IMP:
Acute on Chronic HFrEF
Abnormal Troponin - Likely secondary to CHF
JAY on CKD 3bbaseline cr at 2-follows Dr Yates
Paroxysmal atrial fibrillation
Chronic hyponatremia
COPD without exacerbation
Chronic heart failure reduced EF 30%
CAD/CABG x 4 (2001)
Medtronic single-chamber ICD, 2018
Carotid disease -s/p left CEA 2012.
Essential hypertension
DM 2
Severe aortic stenosis -previously declined TAVR workup.
Hyperlipidemia
Gout
h/o GI bleed 03/2025 , known h/o AVMS
traumatic left-sided rib fractures -due to fall last admit in March
Plan:
A/w acute on chronic CHF also h/o severe
Replete potassium
TAVR eval per cards, now pursuing TAVR pending CT to evaluate femoral access
no emergent need of dialysis> poor candidate without TAVR
Patient is at high risk with acute kidney injury persisting, with ongoing congestive heart failure despite high-dose diuretics
Discussed with cardiology will be proceeding CT pending today
's becoming more alkalotic so appropriate to start Diamox
Will continue Lasix for now but may need to discontinue if no improvement in his alkalosis secondary to diuretics
I will decrease Lasix to twice daily 160 mg
Overall prognosis is poor and his heading towards the need for dialysis
Communicated with primary hospitalist today
-
-
Date of Service: April 28, 2025
CC / HPI / ROS
-
Chief Complaint:
Acute kidney injury
History of Present Illness:
Creatinine down to 2.1
Hemodynamically stable on midodrine
Remains on Lasix drip for decompensated congestive heart failure
Review of Systems:
Nonoliguric at 2liters
No fevers or chills
No obvious shortness of breath
Weights are finally down
Labs
-
Labs:
WBC 6.1 10^3/uL (4.8-10.8) 04/28/25 06:33
RBC 3.17 10^6/uL (4.70-6.10) L 04/28/25 06:33
Hgb 10.6 g/dL (13.0-18.0) L 04/28/25 06:33
Hct 31.8 % (39.0-52.0) L 04/28/25 06:33
Plt Count 194 10^3/uL (130-400) 04/28/25 06:33
Sodium 129 mmol/L (135-145) L 04/28/25 06:33
Potassium 4.0 mmol/L (3.5-5.1) 04/28/25 06:33
Chloride 87 mmol/L (98-107) L 04/28/25 06:33
Carbon Dioxide 37 mmol/L (22-30) H 04/28/25 06:33
BUN 72 mg/dl (9-20) H 04/28/25 06:33
Creatinine 2.3 mg/dL (0.7-1.3) H 04/28/25 06:33
eGFR 28.18 04/28/25 06:33
Glucose 185 mg/dl (70-99) H 04/28/25 06:33
Calcium 9.4 mg/dl (8.4-10.2) 04/28/25 06:33
Phosphorus 4.1 mg/dl (2.5-4.5) 04/21/25 11:18
Ifw-F-Pogmilhanaz Pept 73058 pg/ml 04/18/25 18:44
Albumin Cancelled 04/21/25 02:33
Physical Exam
-
Vital Signs:
Vital Signs
Temp Pulse Resp BP Pulse Ox
97.8 F 71 16 114/63 96
04/28/25 11:10 04/28/25 11:10 04/28/25 11:10 04/28/25 11:10 04/28/25 11:10
Cardiovascular:: Regular rate and rhythm
Respiratory:: Bilateral: Coarse (Decreased breath sounds at bases)
Lung Excursion:: Normal
Abdomen:: Nontender and Soft
Bowel Sounds:: Normal
Extremity Edema:: +1: Bilateral: (chronic)
Olea Catheter: Yes
[2025-04-28 15:34] VITALS: BP 96/51
[2025-04-28 16:41] LABS: Glucose - Point of Care 143 mg/dl (70-99)
[2025-04-28] MEDS: NOVOLOG FLEXPEN-MODERATE RESISTANCE SC (17:25)
[2025-04-28 19:30] VITALS: BP 111/70
[2025-04-28] MEDS: LANTUS 0.18 UNITS SC (21:57)
[2025-04-28 22:01] LABS: Glucose - Point of Care 306 mg/dl (70-99)
[2025-04-28] MEDS: REMOVE NICOTINE PATCH 1 PATCH REMOVE (22:04)
[2025-04-28] MEDS: AMBIEN 5 MG PO (23:28)
[2025-04-28 23:30] VITALS: BP 111/70
[2025-04-29 03:24] VITALS: BP 126/75
[2025-04-29 07:00] VITALS: BP 113/71
--- NOTE | 2025-04-29 07:15 | W.PN.HOSP.TC ---
Today's Communication/Plan
-
??lasix dose defer to nephro
prognosis is poor and his heading towards the need for dialysis
Assessment / Plan
Assessment / Plan
79-year-old male with a medical history of CAD (status post CABG and stents), HFrEF, severe , A-fib (on Eliquis), carotid artery stenosis (status post left CEA), IDDM, and CKD stage IV who presented with increasing lower extremity edema and abrupt
weight gain. His home diuretic regimen has been altered frequently per patient report. At time of presentation he has approximately 20 pounds over his dry weight. Chest imaging shows pulmonary edema and bilateral pleural effusions. He has been
started on IV diuresis and admitted for further evaluation and management of acute on chronic HFrEF.
#Acute on chronic HFrEF:
; now off of lasix drip; metolazone continued by nephrology;currently on lasix 160mg tid IV; worsening alkalosis
- Continue to monitor I's and O's and daily weights
- Aggressively replete electrolytes with diuresis and replete as needed
- Appreciate cardiology input, recommended CT arteriogram of lower extremities when renal function is stabilized to further evaluate access for outpatient TAVR; Ordered for today
#JAY on CKD stage IV:
- Suspect due to cardiorenal syndrome
- creatinine 2.6 today
- Baseline creatinine appears to be around 2.0
was Started acetazolamide 250 mg twice daily on 04/28/25
# Acute hypoxic respiratory failure
- Patient is in need of of oxygen at 3L via nasal canula at rest due to pulse ox of 86% on room air at rest. Patient sa02 increased to 93% on 3L. Patient required 6L 02 with ambulation. Oxygen will help to improve hypoxemia. Patient is mobile within
the home. Duoneb therapy has been tried and is ineffective in treating hypoxemia-related symptoms. Oxygen is needed to improve symptoms
#Hyponatremia:
- Appears chronic, Stable
- Suspect hypervolemic
- Monitor with diuresis
#Hypokalemia
- sable
# Hypomagnesia
- stable
#IDDM:
- Home regimen is Lantus 14 units at night and NovoLog 3 units with meals; Increase to Lantus 18 and NovoLog 5
- Continue Accu-Cheks, additional sliding scale as needed
- Adjust regimen as needed
- Diabetic diet
#A-fib:
- Chronic
- Currently rate controlled
- Continue anticoagulation with Eliquis
DVT prophylaxis: Eliquis
CODE STATUS: Full code
Anticipated Discharge: 24 - 48 hours
Subjective/Interval History
-
Date of Service: April 29, 2025
Seen and examined at bedside. Offers no new complaints. AFVSS.
Objective Data
-
Labs:
Laboratory Results
04/29/25
07:06
WBC Pending
Hgb Pending
Hct Pending
Plt Count Pending
Sodium Pending
Potassium Pending
Chloride Pending
Carbon Dioxide Pending
BUN Pending
Creatinine Pending
Glucose Pending
Calcium Pending
Vital Signs:
Vital Signs
Temp Pulse Resp BP Pulse Ox
97.9 F 77 22 126/75 95
04/29/25 03:24 04/29/25 03:24 04/29/25 03:24 04/29/25 03:24 04/29/25 03:24
I&O
04/28/25 04/29/25 04/30/25
06:59 06:59 06:59
Intake Total 2049 990 / 990
Output Total 2500 / 2500 1700 / 1700
Balance -450 / -450 -710 / -710
Review of Systems
-
History Source: Patient
All other systems: Reviewed and negative (Except as documented)
Physical Exam
-
General: No Apparent Distress and Comfortable
HEENT: Normocephalic
Respiratory: Clear to Auscultation, Non Labored Respirations and Other (Supplemental O2 3 L via nasal cannula)
Cardiac: Regular Rhythm, S1/S2 and Murmur
GI: Soft and Nontender
Musculoskeletal: Other (1+ bilateral lower extremity edema)
Neuro: Nonfocal/Grossly Intact
Psych: Calm
Data Reviewed
-
Labs: Labs Reviewed by me, Discussed with Physician and Discussed with Patient
[2025-04-29] MEDS: LIPITOR 80 MG PO (07:43)
[2025-04-29] MEDS: TOPROL XL 12.5 MG PO (07:43)
[2025-04-29] MEDS: PROTONIX 40 MG PO ×2 (07:43→20:34)
[2025-04-29] MEDS: ELIQUIS 5 MG PO ×2 (07:44→20:34)
[2025-04-29] MEDS: KCL 20 MEQ PO ×2 (07:44→20:33)
[2025-04-29] MEDS: NICODERM TRANSDERMAL 14 MG TRANSDERM (07:44)
[2025-04-29] MEDS: LASIX 160 MG IV (07:44)
[2025-04-29] MEDS: DIAMOX 2.5 MG IV ×3 (07:45→23:34)
[2025-04-29] MEDS: ZYLOPRIM 150 MG PO ×2 (07:49→20:33)
[2025-04-29 08:07] LABS: Glucose - Point of Care 82 mg/dl (70-99)
[2025-04-29] MEDS: NOVOLOG FLEXPEN-MODERATE RESISTANCE SC (08:08)
[2025-04-29] MEDS: NOVOLOG FLEXPEN SC (08:40)
[2025-04-29 09:03] LABS: Hematocrit 31.6 % (39.0-52.0); Hemoglobin 10.6 g/dL (13.0-18.0); Mean Corp Hgb Conc. 33.5 g/dL (33.0-37.0); Mean Corpuscular Volume 101.9 fL (80.0-94.0); Platelet Count 208 10^3/uL (130-400); Red Cell Dist. Width 17.9 % (11.5-14.5)
[2025-04-29 09:27] LABS: Blood Urea Nitrogen 73 mg/dl (9-20); Calcium 9.4 mg/dl (8.4-10.2); Carbon Dioxide 38 mmol/L (22-30); Chloride 84 mmol/L (98-107); Estimated Creatinine Clearance 20 ml/min; Glucose 81 mg/dl (70-99); Potassium 3.0 mmol/L (3.5-5.1); Sodium 130 mmol/L (135-145); eGFR 24.32
[2025-04-29] MEDS: KCL 40 MEQ PO ×2 (10:09→20:33)
[2025-04-29 11:00] VITALS: BP 120/63
[2025-04-29 11:55] LABS: Glucose - Point of Care 160 mg/dl (70-99)
[2025-04-29] MEDS: NON-FORMULARY ITEM 1 UNIT BOTH EYES ×2 (13:25→21:48)
[2025-04-29] MEDS: NOVOLOG FLEXPEN-MODERATE RESISTANCE 1 UNITS SC (13:25)
[2025-04-29] MEDS: NOVOLOG FLEXPEN 5 UNITS SC ×2 (13:25→16:45)
[2025-04-29 13:49] LABS: B.E. 12.6 mmol/L; HCO3 37.4 mmol/L (21-28); O2 Saturation % 96.5 % (94-98); PCO2 48 mmHg (35-48); PO2 74 mmHg (83-108); Potassium 3.4 mMOL/L (3.5-5.1); Sodium 127 mMOL/L (136-145)
[2025-04-29 13:50] LABS: O2 Therapy NC
[2025-04-29 15:00] VITALS: BP 111/65
--- NOTE | 2025-04-29 15:44 | W.PN.NEPH.PH ---
Today's Communication / Plan
-
Discontinue Lasix
Continue Diamox
Assessment/Plan
-
IMP:
Acute on Chronic HFrEF
Abnormal Troponin - Likely secondary to CHF
JAY on CKD 3bbaseline cr at 2-follows Dr Yates
Paroxysmal atrial fibrillation
Chronic hyponatremia
COPD without exacerbation
Chronic heart failure reduced EF 30%
CAD/CABG x 4 (2001)
Medtronic single-chamber ICD, 2018
Carotid disease -s/p left CEA 2012.
Essential hypertension
DM 2
Severe aortic stenosis -previously declined TAVR workup.
Hyperlipidemia
Gout
h/o GI bleed 03/2025 , known h/o AVMS
traumatic left-sided rib fractures -due to fall last admit in March
Plan:
A/w acute on chronic CHF also h/o severe
Replete potassium
TAVR eval per cards, now pursuing TAVR pending CT to evaluate femoral access
no emergent need of dialysis> poor candidate without TAVR
Patient is at high risk with acute kidney injury persisting, with ongoing congestive heart failure despite high-dose diuretics
Second CT done yesterday 04/28= significant vascular disease
Becoming more alkalotic
Discontinue Lasix
ABG pH 7.5 ordered today= ordered Diamox as patient is still volume overloaded
Only 700 cc negative since admission despite aggressive diuresis efforts
Overall prognosis is poor and his heading towards the need for dialysis as mentioned to him again today
Need to consider goals of care going forward as he is a poor candidate for dialysis and is not optimized for TAVR
-
-
Date of Service: April 29, 2025
CC / HPI / ROS
-
Chief Complaint:
Acute kidney injury
History of Present Illness:
Creatinine down to 2.1
Hemodynamically stable on midodrine
Remains on Lasix drip for decompensated congestive heart failure
Review of Systems:
Nonoliguric at 2liters
No fevers or chills
No obvious shortness of breath
Only 700 cc negative cumulative since he has been here despite aggressive IV diuretics
Labs
-
Labs:
WBC 6.7 10^3/uL (4.8-10.8) 04/29/25 08:43
RBC 3.10 10^6/uL (4.70-6.10) L 04/29/25 08:43
Hgb 10.6 g/dL (13.0-18.0) L 04/29/25 08:43
Hct 31.6 % (39.0-52.0) L 04/29/25 08:43
Plt Count 208 10^3/uL (130-400) 04/29/25 08:43
Sodium 130 mmol/L (135-145) L 04/29/25 08:43
Potassium 3.0 mmol/L (3.5-5.1) L 04/29/25 08:43
Chloride 84 mmol/L (98-107) L 04/29/25 08:43
Carbon Dioxide 38 mmol/L (22-30) H 04/29/25 08:43
BUN 73 mg/dl (9-20) H 04/29/25 08:43
Creatinine 2.6 mg/dL (0.7-1.3) H 04/29/25 08:43
eGFR 24.32 04/29/25 08:43
Glucose 81 mg/dl (70-99) 04/29/25 08:43
Calcium 9.4 mg/dl (8.4-10.2) 04/29/25 08:43
Phosphorus 4.1 mg/dl (2.5-4.5) 04/21/25 11:18
Zau-M-Skrdrgojiih Pept 29943 pg/ml 04/18/25 18:44
Albumin Cancelled 04/21/25 02:33
Physical Exam
-
Vital Signs:
Vital Signs
Temp Pulse Resp BP Pulse Ox
97.4 F 75 16 120/63 95
04/29/25 11:00 04/29/25 11:00 04/29/25 11:00 04/29/25 11:00 04/29/25 11:00
Cardiovascular:: Regular rate and rhythm
Respiratory:: Bilateral: Coarse (Decreased breath sounds at bases)
Lung Excursion:: Normal
Abdomen:: Nontender and Soft
Bowel Sounds:: Normal
Extremity Edema:: +1: Bilateral: (chronic)
Olea Catheter: Yes
[2025-04-29 16:37] LABS: Glucose - Point of Care 248 mg/dl (70-99)
[2025-04-29] MEDS: NOVOLOG FLEXPEN-MODERATE RESISTANCE 3 UNITS SC (16:46)
[2025-04-29 19:00] VITALS: BP 119/68
[2025-04-29 21:45] LABS: Glucose - Point of Care 217 mg/dl (70-99)
[2025-04-29] MEDS: LANTUS 0.18 UNITS SC (21:48)
[2025-04-29] MEDS: REMOVE NICOTINE PATCH 1 PATCH REMOVE (22:15)
[2025-04-29 23:17] VITALS: BP 92/56
[2025-04-29] MEDS: AMBIEN 5 MG PO (23:34)
[2025-04-30] VITALS (9 sets, daily range): BP systolic 81–118; BP diastolic 50–75; BMI 27.8
[2025-04-30 03:03] LABS: Glucose - Point of Care 209 mg/dl (70-99)
--- NOTE | 2025-04-30 03:06 | PTCARENOTE ---
Pt had a change in mental status. Pt was repeating 'Banana'. AAOx2, disoriented to place at start of shift. Now AAOx2, only able to tell place and name. Ambien was given at 2330. Glucose was 209. VSS. PRINCIPLE SOFTWARE ENGINEER was TT and came to assess pt. See notes.
--- NOTE | 2025-04-30 03:26 | PTCARENOTE ---
Pt has had 3 or more episodes of diarrhea. This RN put a C-DIFF order in and collected a stool sample. Sent to lab.
[2025-04-30 03:33] LABS: Hematocrit 33.4 % (39.0-52.0); Hemoglobin 10.9 g/dL (13.0-18.0); Mean Corp Hgb Conc. 32.6 g/dL (33.0-37.0); Mean Corpuscular Volume 101.5 fL (80.0-94.0); Platelet Count 210 10^3/uL (130-400); Red Cell Dist. Width 18.3 % (11.5-14.5)
--- NOTE | 2025-04-30 03:44 | W.PN.UPDATE ---
Update Note
Progress Note Update
RN reports pt seemed more confused this am. Was aao2 (not to place)and now aao2 (oriented to place only). Also RN reports pt with multiple episodes of large amounts of diarrhea.
On eval pt was aaox2 (knew name and place a little off on time.).
Will get am labs
ONly new med for pt is diamox which confusion and diarrhea care potential side effects. But with pts alkalosis benefits out weight risk for now.
[2025-04-30 04:12] LABS: ALT (SGPT) 19 U/L (0-50); AST (SGOT) 39 U/L (17-59); Albumin 3.2 g/dl (3.5-5.0); Alkaline Phosphatase 133 U/L (38-126); Blood Urea Nitrogen 74 mg/dl (9-20); Calcium 9.1 mg/dl (8.4-10.2); Carbon Dioxide 35 mmol/L (22-30); Chloride 89 mmol/L (98-107); Estimated Creatinine Clearance 19 ml/min; Glucose 197 mg/dl (70-99); Magnesium 1.8 mg/dl (1.6-2.3); Potassium 4.2 mmol/L (3.5-5.1); Sodium 130 mmol/L (135-145); Total Protein 6.4 g/dl (6.3-8.2); eGFR 23.25
[2025-04-30 07:49] LABS: Glucose - Point of Care 190 mg/dl (70-99)
[2025-04-30] MEDS: LIPITOR 80 MG PO (08:59)
[2025-04-30] MEDS: PROTONIX 40 MG PO ×2 (08:59→21:01)
[2025-04-30] MEDS: TOPROL XL 12.5 MG PO (08:59)
[2025-04-30] MEDS: ELIQUIS 5 MG PO ×2 (09:00→21:01)
[2025-04-30] MEDS: KCL 20 MEQ PO ×2 (09:01→21:00)
[2025-04-30] MEDS: ZYLOPRIM 150 MG PO ×2 (09:01→21:00)
[2025-04-30] MEDS: NICODERM TRANSDERMAL 14 MG TRANSDERM (09:01)
[2025-04-30] MEDS: DIAMOX 2.5 MG IV (09:03)
[2025-04-30] MEDS: NOVOLOG FLEXPEN 5 UNITS SC ×3 (09:17→19:00)
[2025-04-30] MEDS: NOVOLOG FLEXPEN-MODERATE RESISTANCE SC ×3 (09:20→19:01)
--- NOTE | 2025-04-30 09:52 | W.PN.CARDCBS ---
Addendum entered and electronically signed by Ivette Granado MD 04/30/25 11:54:
I saw and examined the patient.
The Bus Driver's note was reviewed and I agree with the note.
Comment: Elderly man with oxygen in place
Heart: Irregularly irregular 3/6 crescendo decrescendo murmur
Lungs: Crackles at the bases bilateral right greater than left.
Extremities: No clubbing, cyanosis or edema bilaterally.
Neuro: Grossly nonfocal, awake, alert
He has multiple complex medical issues including heart failure with reduced ejection fraction, severe aortic valve stenosis, now with large pleural effusion. In addition he has atrial fibrillation on anticoagulation with prior GI bleeding. He has
significant renal insufficiency.
He was admitted with acute HF also developed JAY. Chest x-ray today with large right pleural effusion and suggestion of continued increased volume.
Would recommend further diuresis. He is also being followed by nephrology who is adjusting diuretics. He was initially on IV infusion of Lasix and switched to IV push along with Diamox (worsening alkalosis) and metolazone.
-Given large pleural effusion if agreeable would recommend thoracentesis.
He has known severe and LV dysfunction, EF 31% and being evaluated for TAVR
Echo 03/12/2025 with EF 31%, severe and mod MR.
He is s/p CT of the abdomen/pelvis to eval lower extremities 04/28/25. Defer results to TAVR team. Also with probable greater than 70% bilateral renal artery stenosis.
Nephrology following creatinine and renal function. Concern for future need of hemodialysis.
He underwent cath 03/2025 with stable coronary anatomy. has history of CABG 2001.
Blood pressure remains stable on treatment including midodrine.
Rate controlled A-fib noted. Continue current treatment.
H/H stable on Eliquis with history of GI bleed March 2025.
Medtronic single chamber ICD reprogrammed to VVI 50 on 03/13/25, eventually could consider upgrade to resynchronization device
Original Note:
Today's Communication / Plan
-
CXR to eval pleural effusions
diuretics per renal
Impression / Plan
-
.
PCP: Dr. Eason
Primary Solar System Designer: Dr. Sutton
Impression:
Admitted 04/18/2025 with acute HF and JAY
Acute on chronic HFrEF, proBNP 18,500
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
Recent admission for shock, anemia, GI bleed 03/11/2025 until 03/17/2025
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
Severe since 2018
s/p TAVR work-up with MPG 27 at time of cath and not recommended TAVR 01/2023
RHC/LHC 03/15/2025 MPG 28 mmHg, stable CAD, current TAVR eval in process
ICM EF 31%, echo 03/12/2025
History of reduced ejection fraction heart failure with recovered EF
CAD status post CABGx4 in setting of [place] in 2001
carotid disease s/p left CEA in 2012
s/p Medtronic single chamber ICD 2017
Persistent Afib
Chronic Eliquis OAC
DM 2
Gout
Smoker, ongoing tobacco use
Previous CV studies:
Echo 08/23/2019: EF 30-35%, global hypokinesis with inferolateral, inferior and basal septal akinesis, mild MR, sev pressure 47/28 mmHg
ECHO 12/03/22: EF 50%, mild LVH, stage III diastolic dysfunction, mild MR, severe with peak/mean gradients 54/28 mmHg, KAELYN 0.8 cm�, trace AR, mild TR, PAP 64 mmHg, mild dilation of aorta measuring 4.0 cm
Echo 10/09/2024: EF 35 to 40%, moderate eccentric MR, severe peak/mean 60/34 mmHg and KAELYN 0.8 cm sq, mild aortic insufficiency, moderate TR with PAP 64 mmHg
Echo 03/12/2025: EF 31%, global hypokinesis, moderate MR, severe peak/mean 41/22 mmHg and KAELYN 0.7 cm sq, mild aortic regurgitation, moderate to severe TR with PAP 72 mmHg
Right heart cath/left heart cath 03/15/2025: RA 14, PA 67/28, PCWP 24, LVEDP 18, CO/CI 5.4/3.0, aortic valve with mean pressure gradient 28 mmHg, KAELYN 0.95 cm�.
LAD 100% occluded midportion, NAVAS to LAD versus diagonal is patent to either mid LAD or diagonal branch with anterograde and retrograde filling well-developed septal collaterals from RCA noted. Ramus occluded at origin distal fills via patent free
radial to ramus graft. Circumflex 100% occluded at origin, RCA occluded with patent SVG to PDA. Graft angiography: NAVAS as above, free radial to ramus widely patent, SVG to OM1 100% occluded, SVG to PDA 50 to 55% stenosis in the mid
Plan:
-Admitted 04/18/2025 with acute HF and JAY 04/18/25
-followed by renal who is adjusting diuretics
-initially treated with Lasix gtt then switched to Lasix 160 mg IV TID 04/27/25-04/29/2025.
-Diamox added and Lasix decreased 04/28 due to worsening alkalosis
-Lasix stopped 04/29/2025 due to worsening alkalosis
--Renal concerned that he may be heading for dialysis.
-creat up to 2.7 today, CT w/ IV contrast likely contributing to worsened renal fxn. creat has ranged 2.1-2.8 this admission
-wt down 4 lbs overnight, 14 lbs since admission
-known severe and LV dysfunction, EF 31% and being eval for TAVR
Echo 03/12/2025 with EF 31%, severe and mod MR.
TAVR w/u continues and he is s/p CT of the abdomen/pelvis to eval LEs 04/28/25. Study notable for large right pleural effusion, moderate left pleural effusion, severe calcific atherosclerotic plaque in superficial femoral, common femoral, iliac
arteries. Also with probable greater than 70% bilateral renal artery stenosis.
-check CXR today to further eval pleural effusion-ordered
-may need thoracentesis
Pt knows he is at high risk of worsening acute on chronic renal failure with contrast and that he continues with HF despite high-dose diuretics
He underwent cath 03/2025 with stable coronary anatomy. has history of CABG 2001.
Bp remains stable but on the lower side.
Cont Toprol and midodrine
Remains in rate controlled atrial fibrillation with PVCs.
telem personally reviewed: afib, 70-80s, pvcs, occ V pacing
Cont Toprol and Eliquis
H/H stable on Eliquis with hx of GI bleed March 2025. Hgb 10.9 04/30/25
Medtronic single chamber ICD reprogrammed to VVI 50 on 03/13/25, eventually could consider upgrae to ICD or [employer]-D to help with synchrony
HPI 04/19/2025:
History of Present Illness:
Patient came to the ER 04/18/2025 with weight gain and increasing lower extremity edema despite up titration of outpatient diuretics. He is a 79-year-old male with a history of permanent atrial fibrillation, aortic stenosis with previous evaluation
for TAVR with repeat eval currently undergoing( eval in 2016, 2022-mean gradient on LHC 27 and TAVR not advised), coronary artery disease, status post CABG, recurrent GI bleeds, chronic kidney disease, ICD, anemia, smoker. He had a previous
admission to [facility] 03/11/2025 - 03/17/2025 with near syncope and a fall, shock. Hemoglobin 6.7, creatinin e 2.6 (baseline 2.0) diuretics (Lasix, Metolazone, Spironolactone) and Coreg held most of admission and restarted at lower outpatient dose.
Required midodrine for BP support. Seen by GI and GI bleed thought to be due to AVMs. 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 Eliquis resumed 5 days after endoscopy, at
lower dose 2.5 mg bid. Repeat TAVR evaluation performed with echo and right and left heart cath (mean gradient 28)and patient is being considered for TAVR, structural heart team plans to discuss him at meeting tomorrow.
CT TAVR 04/16/2025 with measurements to be added as separate addendum, had moderate right and small left pleural effusion
Patient was discharged on 03/31/2025 furosemide 40 mg twice daily, midodrine 5 mg 3 times daily, apixaban 2.5 mg twice daily (dose lowered due to CKD) and atorvastatin. Metolazone, spironolactone, and carvedilol were all held.
Weight progressively increasing since last discharge on 03/17/2025, weight at that time 151 pounds, weight on admission 04/18/2025 180 pounds. Outpatient Lasix has been uptitrated over past month to 120 mg twice daily and metolazone restarted at 2.5
mg --, initially with stable creatinine at 1.56 on 04/02/2025, but 2.1 on 04/18/2025 and progressive weight gain.
Progress Note - Solar System Designer
Subjective
Date of Service: April 30, 2025
off Lasix due to worsening alkalosis
on Diamox
CT abd/pelvis concerning for PAD, ANDREAS, and B/L pleural effusions
denies SOB, CP
Objective
Labs:
04/30/25 03:25
04/30/25 06:00
Labs
Hgb 10.9 g/dL (13.0-18.0) L 04/30/25 03:25
Hct 33.4 % (39.0-52.0) L 04/30/25 03:25
Plt Count 210 10^3/uL (130-400) 04/30/25 03:25
Sodium Cancelled 04/30/25 06:00
Potassium Cancelled 04/30/25 06:00
BUN Cancelled 04/30/25 06:00
Creatinine Cancelled 04/30/25 06:00
Glucose Cancelled 04/30/25 06:00
Vital Signs and I&O:
Vital Signs
Temp Pulse Resp BP Pulse Ox
97.8 F 88 16 108/55 96
04/30/25 07:00 04/30/25 09:00 04/30/25 07:00 04/30/25 09:00 04/30/25 07:00
Vital Signs
Temp Pulse Resp BP Pulse Ox
97.8 F 88 16 108/55 96
04/30/25 07:00 04/30/25 09:00 04/30/25 07:00 04/30/25 09:00 04/30/25 07:00
Intake & Output
04/28/25 04/29/25 04/30/25 05/01/25
06:59 06:59 06:59 06:59
Intake Total 0 / 2049 990 / 990 1100 / 1100
Output Total 2500 / 2500 1700 / 1700 150 / 150
Balance -450 / -450 -710 / -710 950 / 950
Physical Exam
Physical Exam
GEN: No distress, sleeping but able to awake
HEENT: supple, anicteric, mmm
LUNGS: decreased L base, no rales
CV: irreg, irreg, S1/S2, 3/6 syst ANA base
ABD: soft, BS+, NT/ND
EXT:trace edema
NEURO:grossly nonfocal
SKIN: brusing B/L UEs
--- NOTE | 2025-04-30 09:58 | W.PN.HOSP.TC ---
Addendum entered and electronically signed by Julio Phillips MD 04/30/25 23:18:
Attending Addendum-
I saw and evaluated the patient. I reviewed the resident�s note and agree with findings and plan as documented in the resident�s note. Sub: sitting up in bed. 'I sit up because i feel better this way' denies SOB. nursing reports CIMS this and and
diarrhea. Patient denies diarrhea. Full 12 point ROS reviewed and negative except as documented Exam: Vitals reviewed in chart GEN-mild resp distress heart RRR / SM @ RUSB lungs decreased BS B/L LL no W/R/R LE no edema Neuro AAO x 2 ( thinks
birthdate is 2024)
Plan:
#Acute on chronic HFrEF:
- off of lasix drip; metolazone continued by nephrology, worsening alkalosis DC diamox
- Continue to monitor I's and O's and daily weights
- Aggressively replete electrolytes with diuresis and replete as needed weights decreasing
- approaching dry weight
#JAY on CKD stage 3b:
- Suspect due to cardiorenal syndrome with SPRING
- creatinine up to 2.7 baseline 2.0
- DC acetazolamide
- CTM
# Contraction Alkalosis
- hold diamox due to diarrhea and CIMS
- CTM
# Acute hypoxic respiratory failure
- wean o2 for sat > 88-92%
# B/L Pleural Effusion RT>LT
- thoracentesis ordered 04/30
- CTM
#Hyponatremia:
- Appears chronic, Stable
- Suspect hypervolemic
#Hypokalemia
- resolved, repeat daily
# Hypomagnesia
- stable
# Severe AVR- for TAVR as OP
- 04/28- CT A/P w nonionic contrast
-Severe calcific atherosclerotic plaque in the superficial femoral, common femoral, and iliac arteries.
-Severe calcific atherosclerotic plaque in both proximal renal arteries with probable greater than 70% bilateral renal artery stenoses.
-Mild stercoral colitis in the rectum with possible fecal impaction.
-LARGE RIGHT PLEURAL EFFUSION causing complete compressive atelectasis of the right lower and middle lobes.
-Moderate left pleural effusion.
-Severe calcification in the aortic valve.
-SEVERE CENTRAL CANAL STENOSIS at L4/L5.
#IDDM
- Home regimen is Lantus 14 units at night and NovoLog 3 units with meals; Increase to Lantus 18 and NovoLog 5
- Continue Accu-Cheks, additional sliding scale as needed
- Adjust regimen as needed
- Diabetic diet
#A-fib:
- Chronic
- Currently rate controlled
- Continue anticoagulation with Eliquis
# CAD s/p CABG x 4
# Tobacco abuse- nicotine patch advised to quit probable underlying COPD OP PFT's
DVT prophylaxis: Eliquis
CODE STATUS: Full code
ACP
Patient consented to discuss, was alone, time spent explanation of advance directives, changes in health status, patient�s health care wishes if the patient becomes unable to make health decisions, goals of care, code status, and prognosis 'i know
what full code is and thats what i want'- 16 minutes
Time spent coordinating care, review of plan of care with resident, personally reviewed previous records in EMR, med rec, labs, radiology, d/w nursing, total time documented is exclusive of any additional time listed that was spent in advance care
planning discussion -� 51 minutes
Original Note:
Today's Communication/Plan
-
- Continue acetazolamide bid (started 04/28)
- Continue metoprolol succinate (12.mg daily)
- Continue atorvastatin 80mg daily
- Continue telemetry
- Per cards, plan for thoracentesis to drain R pleural effusion
Assessment / Plan
Assessment / Plan
Robert An is a 79yo M with a pmh notable for CAD (s/p CABG and stents), HFrEF (30 LVEF %), severe , A-fib (on Eliquis, has ICD), carotid artery stenosis (status post left CEA), IDDM, and CKD stage IIIb who presented with increasing lower
extremity edema and abrupt weight gain (20lbs > dry weight). Now being managed with diureses for acute on chronic HFrEF & cardiorenal syndrome.
#Acute on chronic HFrEF (30% EF)
#
#Pleural effusions
CXR demonstrated pulmonary edema and bilateral pleural effusions. Pt 20lbs over dry weight on admission. S/p lasix drip (160mg tid, 04/27-04/29).
- Continue to monitor I&Os and daily weights (weight trending down, 75.7 kg from 82kg on admission; dry weight 69kg)
- Continue acetazolamide bid (started 04/28) (hold lasix given electrolyte imbalances & Cr spike)
- Continue metoprolol succinate (12.mg daily)
- Continue atorvastatin 80mg daily
- Aggressively replete electrolytes with diuresis and replete as needed
- CT TAVR completed 04/29; plan for outpatient TAVR
- Continue telemetry
- Per cards, plan for thoracentesis to drain R pleural effusion
- Plan to eval fluid^
#JAY on CKD stage IIIb
#Cardiorenal syndrome
#Alkalosis
Creatinine (2.7 from baseline ~2.0; has fluctuated from 2.2-2.7 since admission). Likely 2/2 cardiorenal syndrome with HFrEF exacerbation. Also exacerbated by contrast s/p CT TAVR.
- Per renal, pt poor candidate for HD until TAVR completed - not proceeding with HD at this time
#Diarrhea
Diarrhea beginning overnight 04/29. Afebrile, WBC wnl. NB diarrhea. Likely 2/2 acetazolamide.
- Continue to monitor electrolytes & fluid status, repleting lytes as needed
- PRN imodium
#Acute hypoxic respiratory failure
Currently on 3L O2 nasal cannula (96% O2) and up to 6L O2 with ambulation to maintain (as of 04/29).
- Continue NC, evaluate O2 sat with ambulation (goal >90%)
- Duonebs PRN
#Alkalosis
#Hyponatremia
Hyponatremia appears chronic, stable over months. Na 130 today. Likely hypervolemic hyponatremia exacerbated by diuresis (lasix at home). pH 7.5, alkalosis, likely 2/2 diuresis & diminished renal fxn CKD IV.
- Monitor labs with ongoing diuresis
#Hypokalemia
Stable, wnl today 4.2.
- Continue to monitor, replete as needed
# Hypomagnesia
Stable, wnl today 1.8
- Continue to monitor, replete if needed
#Chronic conditions
#IDDM: Home regimen is Lantus 14 units at night and NovoLog 3 units with meals; Increase to Lantus 18 and NovoLog 5. Continue sliding scale & diabetic diet.
#A-fib: Chronic, currently rate controlled. Continue anticoagulation with Eliquis.
#Global
- DVT prophylaxis: Eliquis
- CODE STATUS: Full code
- Dispo: Likely to home within 48hr (lives at home w ), pending cards next steps, PT/OT recommends home health
Anticipated Discharge: 24 - 48 hours
Subjective/Interval History
-
Date of Service: April 30, 2025
Per nursing, patient had episode of confusion early this am, only oriented to place. Was also having frequent diarrhea (non-bloody). This am on exam, patient more oriented - oriented to self, place, and year (stated date: November 2024). Endorses
ongoing diarrhea although no episodes while in the room on exam. Otherwise denies any SOB, pain, fever/chills, n/v.
Objective Data
-
Labs:
Laboratory Results
04/30/25 04/30/25 04/30/25
03:25 03:36 06:00
WBC 7.5
Hgb 10.9 L
Hct 33.4 L
Plt Count 210
Sodium 130 L Cancelled
Potassium 4.2 D Cancelled
Chloride 89 L Cancelled
Carbon Dioxide 35 H Cancelled
BUN 74 H Cancelled
Creatinine 2.7 H Cancelled
Glucose 197 H Cancelled
Calcium 9.1 Cancelled
Total Bilirubin 0.8
AST 39
ALT 19
Alkaline Phosphatase 133 H
Vital Signs:
Vital Signs
Temp Pulse Resp BP Pulse Ox
97.8 F 88 16 108/55 96
04/30/25 07:00 04/30/25 09:00 04/30/25 07:00 04/30/25 09:00 04/30/25 07:00
I&O
04/29/25 04/30/25 05/01/25
06:59 06:59 06:59
Intake Total 990 / 990 1100 / 1100
Output Total 1700 / 1700 150 / 150
Balance -710 / -710 950 / 950
Review of Systems
-
Unable to obtain full review of systems at this time due to: Dementia
History Source: Patient
Constitutional: Reports Fever (denies) and No Appetite (endorses decreased appetite)
Respiratory: Reports Trouble Breathing (denies)
Abdomen/GI: Reports Nausea (denies) and Diarrhea
Physical Exam
-
General: Well Developed, Comfortable (appears slightly uncomfortable, shifting in bed) and Other (nasal cannula)
HEENT: Normocephalic, Atraumatic and Anicteric
Respiratory: Clear to Auscultation
Cardiac: Irregular Rhythm (irregularly irregular)
GI: Soft, Nontender and Nondistended
Musculoskeletal: Other (bilateral LE 1+ pitting edema to upper elder; chronic venostatic skin changes bilateral LEs)
Skin: Warm and Dry
Neuro: Awake and Oriented (AOX2-3 (self, place, year, not month) )
Psych: Calm
Data Reviewed
-
Total Time Spent with Patient (in minutes): 15
Critical Care Time (in minutes): 40
CT Scan: Image personally visualized and interpreted
Labs: Labs Reviewed by me
[2025-04-30] MEDS: IMODIUM 2 MG PO (11:30)
[2025-04-30 11:37] LABS: Glucose - Point of Care 94 mg/dl (70-99)
[2025-04-30] MEDS: NON-FORMULARY ITEM 1 UNIT BOTH EYES ×2 (12:10→22:54)
--- NOTE | 2025-04-30 12:33 | W.PN.UPDATE ---
Update Note
Progress Note Update
Spoke with both patient and about our recommendation for thoracentesis. They agree to proceed.
--- NOTE | 2025-04-30 13:22 | W.PN.NEPH.PH ---
Today's Communication / Plan
-
stop diamox
Assessment/Plan
-
IMP:
Acute on Chronic HFrEF
Abnormal Troponin - Likely secondary to CHF
JAY on CKD 3bbaseline cr at 2-follows Dr Yates
Paroxysmal atrial fibrillation
Chronic hyponatremia
COPD without exacerbation
Chronic heart failure reduced EF 30%
CAD/CABG x 4 (2001)
Medtronic single-chamber ICD, 2018
Carotid disease -s/p left CEA 2012.
Essential hypertension
DM 2
Severe aortic stenosis -previously declined TAVR workup.
Hyperlipidemia
Gout
h/o GI bleed 03/2025 , known h/o AVMS
traumatic left-sided rib fractures -due to fall last admit in March
Plan:
stop diamox
no diuretics for today
rising CR likely due to CT IV contrast 04/28
await TAVR team eval as femoral access may be difficult
no emergent HD needs
follow BMP
for thoracentesis
prognosis is guarded
-
-
Date of Service: April 30, 2025
CC / HPI / ROS
-
Chief Complaint:
Acute kidney injury
History of Present Illness:
JAY/Cr worse to 2.7
metabolic alkalosis slightly better 35
Hemodynamically stable on midodrine
off lasix, weights down
Review of Systems:
Nonoliguric
No fevers or chills
No obvious shortness of breath
confused, lethargic
Labs
-
Labs:
WBC 7.5 10^3/uL (4.8-10.8) 04/30/25 03:25
RBC 3.29 10^6/uL (4.70-6.10) L 04/30/25 03:25
Hgb 10.9 g/dL (13.0-18.0) L 04/30/25 03:25
Hct 33.4 % (39.0-52.0) L 04/30/25 03:25
Plt Count 210 10^3/uL (130-400) 04/30/25 03:25
Sodium Cancelled 04/30/25 06:00
Potassium Cancelled 04/30/25 06:00
Chloride Cancelled 04/30/25 06:00
Carbon Dioxide Cancelled 04/30/25 06:00
BUN Cancelled 04/30/25 06:00
Creatinine Cancelled 04/30/25 06:00
eGFR Cancelled 04/30/25 06:00
Glucose Cancelled 04/30/25 06:00
Calcium Cancelled 04/30/25 06:00
Phosphorus 4.1 mg/dl (2.5-4.5) 04/21/25 11:18
Rsp-H-Mffjmnqaagf Pept 18578 pg/ml 04/18/25 18:44
Albumin 3.2 g/dl (3.5-5.0) L 04/30/25 03:36
Physical Exam
-
Vital Signs:
Vital Signs
Temp Pulse Resp BP Pulse Ox
97.4 F 81 18 101/66 96
04/30/25 11:00 04/30/25 12:10 04/30/25 11:00 04/30/25 12:10 04/30/25 12:24
Cardiovascular:: Regular rate and rhythm
Respiratory:: Bilateral: Coarse and Right: Coarse
Lung Excursion:: Normal
Abdomen:: Nontender and Soft
Bowel Sounds:: Normal
Extremity Edema:: +1: Bilateral:
[2025-04-30 18:58] LABS: Glucose - Point of Care 146 mg/dl (70-99)
[2025-04-30 20:22] LABS: Body Fluid Second Tech DW
[2025-04-30 21:31] LABS: Glucose - Point of Care 137 mg/dl (70-99)
[2025-04-30] MEDS: LANTUS 0.18 UNITS SC (22:51)
[2025-04-30] MEDS: REMOVE NICOTINE PATCH 1 PATCH REMOVE (22:53)
[2025-05-01] MEDS: AMBIEN 5 MG PO (00:19)
[2025-05-01 03:00] VITALS: BP 113/56
[2025-05-01 04:31] VITALS: BMI 27.5
[2025-05-01 05:55] LABS: Hematocrit 34.6 % (39.0-52.0); Hemoglobin 11.2 g/dL (13.0-18.0); Mean Corp Hgb Conc. 32.4 g/dL (33.0-37.0); Mean Corpuscular Volume 103.3 fL (80.0-94.0); Platelet Count 226 10^3/uL (130-400); Red Cell Dist. Width 18.1 % (11.5-14.5)
[2025-05-01 07:03] LABS: Blood Urea Nitrogen 79 mg/dl (9-20); Calcium 9.2 mg/dl (8.4-10.2); Carbon Dioxide 32 mmol/L (22-30); Chloride 91 mmol/L (98-107); Estimated Creatinine Clearance 18 ml/min; Glucose 55 mg/dl (70-99); Potassium 3.6 mmol/L (3.5-5.1); Sodium 131 mmol/L (135-145); eGFR 21.34
[2025-05-01 07:09] LABS: Glucose - Point of Care 62 mg/dl (70-99)
[2025-05-01 07:27] LABS: Glucose - Point of Care 96 mg/dl (70-99)
[2025-05-01] MEDS: NOVOLOG FLEXPEN SC (07:30)
[2025-05-01] MEDS: NOVOLOG FLEXPEN-MODERATE RESISTANCE SC (07:30)
--- NOTE | 2025-05-01 07:57 | W.PN.HOSP.TC ---
Addendum entered and electronically signed by Julio Phillips MD 05/01/25 21:57:
Attending Addendum-
I saw and evaluated the patient. I reviewed the resident�s note and agree with findings and plan as documented in the resident�s note. Sub: feels overall improved but fatigued. denies SOB. Patient denies diarrhea. Full 12 point ROS reviewed and
negative except as documented Exam: Vitals reviewed in chart GEN-NAD heart RRR 3/6 SM @ RUSB lungs decreased BS B/L LL no W/R/R LE trace edema Neuro AAO x 2
Plan:
#Acute on chronic HFrEF:
- diuretic holiday
- Continue to monitor I's and O's and daily weights
- Aggressively replete electrolytes-weights decreasing
- approaching dry weight
#JAY on CKD stage 3b:
- Suspect due to cardiorenal syndrome with SPRING
- creatinine up to 2.9 baseline 2.0
- diuretics on hold
- CTM
# Contraction Alkalosis
- bicarb trending down
- CTM
# Acute hypoxic respiratory failure
- wean o2 for sat 88-92%
- may need home o2
# B/L Pleural Effusion RT>LT
- from CHF
- thoracentesis- 04/30-1850mls- transudate
- CTM
#Hyponatremia:
- Appears chronic, Stable
- Suspect hypervolemic
# Severe AVR- for TAVR as OP
- 04/28- CT A/P w nonionic contrast
-Severe calcific atherosclerotic plaque in the superficial femoral, common femoral, and iliac arteries.
-Severe calcific atherosclerotic plaque in both proximal renal arteries with probable greater than 70% bilateral renal artery stenoses.
-Mild stercoral colitis in the rectum with possible fecal impaction.
-LARGE RIGHT PLEURAL EFFUSION causing complete compressive atelectasis of the right lower and middle lobes.
-Moderate left pleural effusion.
-Severe calcification in the aortic valve.
-SEVERE CENTRAL CANAL STENOSIS at L4/L5.
- appreciate cards input, for further eval as OP
#IDDM
- episode of hypoglycemia this am
- decrease back to home regimen-Lantus 14 units/NovoLog 3 units with meals
- Continue Accu-Cheks, additional sliding scale as needed
- Adjust regimen as needed
- Diabetic diet
#A-fib:
- Chronic
- Currently rate controlled
- Continue anticoagulation with Eliquis
# CAD s/p CABG x 4
# Tobacco abuse- nicotine patch advised to quit probable underlying COPD OP PFT's
DVT prophylaxis: Eliquis
CODE STATUS: Full code
Dispo DC home once cr starts trending down and able to reinitiate diuretic regimen
Time spent coordinating care, review of plan of care with resident, personally reviewed records in EMR, med rec, consults, notes, labs, radiology, d/w nursing nephro cards � 52 mins
Original Note:
Today's Communication/Plan
-
- Continue to monitor I&Os and daily weights (weight trending down, 74.8kg today from 82kg on admission; dry weight: 72-73kg)
- Holding acetazolamide & metolazone per renal (s/p acetazolamide 04/28-; lasix 04/27-; metolazone 04/23-)
- Continue metoprolol succinate (12.mg daily)
- Continue atorvastatin 80mg daily
- CT TAVR completed 04/29; plan for outpatient TAVR
- Wean off O2 nasal cannula
- Encourage OOB with PT/OT
Assessment / Plan
Assessment / Plan
Robert An is a 79yo M with a pmh notable for CAD (s/p CABG and stents), HFrEF (30 LVEF %), severe , A-fib (on Eliquis, has ICD), carotid artery stenosis (status post left CEA), IDDM, and CKD stage IIIb who presented with increasing lower
extremity edema and abrupt weight gain (20lbs > dry weight), found to have acute on chronic HFrEF & cardiorenal syndrome w pleural effusions, now s/p thoracentesis (04/30).
#Acute on chronic HFrEF (30% EF)
#
#Pleural effusions
CXR demonstrated pulmonary edema and bilateral pleural effusions. Pt ~20lbs over dry weight on admission. S/p lasix & acetazolamide diuresis. MELVIN improved on exam today. Approaching dry weight (+/- 2 kg). S/p R pleural effusion thoracentesis (04/30),
which yielded 1850 cc of straw colored pleural fluid. Pleural fluid: WBC 93, negative eosinophils, glucose 120, protein <2.0, LDH 78. Light's Criteria not met, no concern for exudative fluid.
- Continue to monitor I&Os and daily weights (weight trending down, 74.8kg today from 82kg on admission; dry weight: 72-73kg)
- Pending pleural fluid cx
- Holding acetazolamide & metolazone per renal (s/p acetazolamide 04/28-; lasix 04/27-; metolazone 04/23-)
- Continue metoprolol succinate (12.mg daily)
- Continue atorvastatin 80mg daily
- CT TAVR completed 04/29; plan for outpatient TAVR
- Encourage OOB with PT/OT
#Acute hypoxic respiratory failure, resolving
Currently on 3L O2 nasal cannula (100% O2).
- Trial O2 requirements with ambulation, plan to wean down/off of O2 NC
- Duonebs PRN
#JAY on CKD stage IIIb
#Cardiorenal syndrome
#Alkalosis
Creatinine up to 2.9 from 2.7 yesterday (baseline ~2.0; has fluctuated from 2.2-2.7 since admission). Likely 2/2 cardiorenal syndrome with HFrEF exacerbation. Also exacerbated by contrast s/p CT TAVR and aggressive diuresis.
- Per renal, no HD at this time
- Consider fluids, appreciate renal recs
#Hypoglycemia
#IDDM
Glucose 55 this am. Nursing held insulin dose.
- Reduce insulin dosing to match home dose (lantus 14, novolog 3)
- Continue sliding scale & diabetic diet
#Diarrhea, resolving
Diarrhea beginning overnight 04/29. Afebrile, WBC wnl. NB diarrhea. Likely 2/2 acetazolamide. Pt denies new diarrhea, didn't have imodium overnight 04/30.
- Continue to monitor electrolytes & fluid status, repleting lytes as needed
- PRN imodium
#Alkalosis
#Hyponatremia
Hyponatremia appears chronic, stable over months. Na 130 today. Likely hypervolemic hyponatremia exacerbated by diuresis (lasix at home). pH 7.5, alkalosis, likely 2/2 diuresis & diminished renal fxn CKD IV.
- Monitor labs with ongoing diuresis
#Hypokalemia
Stable, wnl today 4.2.
- Continue to monitor, replete as needed
# Hypomagnesia
Stable, wnl today 1.8
- Continue to monitor, replete if needed
#Chronic conditions
#A-fib: Chronic, currently rate controlled. Continue anticoagulation with Eliquis.
#Global
- DVT prophylaxis: Eliquis
- CODE STATUS: Full code
- Dispo: Likely to home (lives at home w ), PT/OT recommends home health
Anticipated Discharge: 24 - 48 hours
Subjective/Interval History
-
Date of Service: May 01, 2025
Pt somnolent this morning, only somewhat conversant. Denies any pain, no n/v or f/c overnight. States that he did not have diarrhea overnight. No pain at thoracentesis site. Denies SOB.
Objective Data
-
Labs:
Laboratory Results
05/01/25
05:20
WBC 9.0
Hgb 11.2 L
Hct 34.6 L
Plt Count 226
Sodium 131 L
Potassium 3.6
Chloride 91 L
Carbon Dioxide 32 H
BUN 79 H
Creatinine 2.9 H
Glucose 55 L*
Calcium 9.2
Vital Signs:
Vital Signs
Temp Pulse Resp BP Pulse Ox
97.8 F 73 20 113/56 100
05/01/25 03:00 05/01/25 03:00 05/01/25 03:00 05/01/25 03:00 05/01/25 03:00
I&O
04/30/25 05/01/25 05/02/25
06:59 06:59 06:59
Intake Total 1100 / 1100 600 / 600
Output Total 150 / 150 275 / 275
Balance 950 / 950 325 / 325
Review of Systems
-
Unable to obtain full review of systems at this time due to: Other
History Source: Patient
Constitutional: Reports No Symptoms (denies any pain)
Respiratory: Reports Trouble Breathing (denies)
Abdomen/GI: Reports Diarrhea (denies recent)
Physical Exam
-
General: Conversant (partially) and Other (somnolent)
HEENT: Normocephalic, Atraumatic and Anicteric
Respiratory: Clear to Auscultation
Cardiac: Regular Rhythm
GI: Soft, Nontender and Nondistended
Musculoskeletal: Other (bilateral MELVIN improved from yesterday, no pitting on exam)
Skin: Other (bandaid on R side of trunk at site of thoracentesis, no erythema or drainage surrounding)
[2025-05-01] MEDS: KCL 20 MEQ PO ×2 (08:33→20:24)
[2025-05-01] MEDS: LIPITOR 80 MG PO (08:34)
[2025-05-01] MEDS: PROTONIX 40 MG PO ×2 (08:34→20:24)
[2025-05-01] MEDS: ELIQUIS 5 MG PO ×2 (08:34→20:23)
[2025-05-01] MEDS: ZYLOPRIM 150 MG PO (08:35)
[2025-05-01] MEDS: NICODERM TRANSDERMAL 14 MG TRANSDERM (08:36)
[2025-05-01] MEDS: TOPROL XL 12.5 MG PO (08:52)
[2025-05-01 11:26] VITALS: BP 94/59
[2025-05-01 11:39] LABS: Glucose - Point of Care 163 mg/dl (70-99)
[2025-05-01] MEDS: IMODIUM 2 MG PO (11:50)
[2025-05-01 11:57] LABS: Albumin 3.3 g/dl (3.5-5.0); LDH 279 U/L (120-246); Total Protein 6.5 g/dl (6.3-8.2)
[2025-05-01] MEDS: NOVOLOG FLEXPEN 5 UNITS SC (12:01)
[2025-05-01] MEDS: NOVOLOG FLEXPEN-MODERATE RESISTANCE 1 UNITS SC ×2 (12:02→18:12)
[2025-05-01] MEDS: NON-FORMULARY ITEM 1 UNIT BOTH EYES ×2 (12:11→22:57)
--- NOTE | 2025-05-01 12:15 | W.PN.NEPH.PH ---
Today's Communication / Plan
-
Follow BMP
Assessment/Plan
-
IMP:
Acute on Chronic HFrEF
Abnormal Troponin - Likely secondary to CHF
JAY on CKD 3bbaseline cr at 2-follows Dr Yates
Paroxysmal atrial fibrillation
Chronic hyponatremia
COPD without exacerbation
Chronic heart failure reduced EF 30%
CAD/CABG x 4 (2001)
Medtronic single-chamber ICD, 2018
Carotid disease -s/p left CEA 2012.
Essential hypertension
DM 2
Severe aortic stenosis -previously declined TAVR workup.
Hyperlipidemia
Gout
h/o GI bleed 03/2025 , known h/o AVMS
traumatic left-sided rib fractures -due to fall last admit in March
Plan:
no diamox
no diuretics for today
rising Cr likely due to CT IV contrast 04/28, hopefully this will plateau soon and diuretics may be restarted
await TAVR team eval as femoral access may be difficult
no emergent HD needs
follow BMP
for thoracentesis
prognosis is guarded
-
-
Date of Service: May 01, 2025
CC / HPI / ROS
-
Chief Complaint:
Acute kidney injury
History of Present Illness:
JAY/Cr worse to 2.9
metabolic alkalosis slightly better 32
Hemodynamically stable on midodrine
off lasix, weights down still
Review of Systems:
Nonoliguric
No fevers or chills
No obvious shortness of breath
Awake and oriented
Labs
-
Labs:
WBC 9.0 10^3/uL (4.8-10.8) 05/01/25 05:20
RBC 3.35 10^6/uL (4.70-6.10) L 05/01/25 05:20
Hgb 11.2 g/dL (13.0-18.0) L 05/01/25 05:20
Hct 34.6 % (39.0-52.0) L 05/01/25 05:20
Plt Count 226 10^3/uL (130-400) 05/01/25 05:20
Sodium 131 mmol/L (135-145) L 05/01/25 05:20
Potassium 3.6 mmol/L (3.5-5.1) 05/01/25 05:20
Chloride 91 mmol/L (98-107) L 05/01/25 05:20
Carbon Dioxide 32 mmol/L (22-30) H 05/01/25 05:20
BUN 79 mg/dl (9-20) H 05/01/25 05:20
Creatinine 2.9 mg/dL (0.7-1.3) H 05/01/25 05:20
eGFR 21.34 05/01/25 05:20
Glucose 55 mg/dl (70-99) L* 05/01/25 05:20
Calcium 9.2 mg/dl (8.4-10.2) 05/01/25 05:20
Phosphorus 4.1 mg/dl (2.5-4.5) 04/21/25 11:18
Zea-C-Covyzjrzvjo Pept 99128 pg/ml 04/18/25 18:44
Albumin 3.3 g/dl (3.5-5.0) L 05/01/25 05:20
Physical Exam
-
Vital Signs:
Vital Signs
Temp Pulse Resp BP Pulse Ox
97.5 F 79 15 94/59 93
05/01/25 11:26 05/01/25 11:26 05/01/25 11:26 05/01/25 11:05/01/25 11:26
Cardiovascular:: Regular rate and rhythm
Respiratory:: Bilateral: Coarse and Bilateral: Rales
Lung Excursion:: Normal
Abdomen:: Nontender and Soft
Bowel Sounds:: Normal
Extremity Edema:: None: Bilateral:
[2025-05-01 15:51] VITALS: BP 125/74
[2025-05-01 16:36] LABS: Glucose - Point of Care 155 mg/dl (70-99)
--- NOTE | 2025-05-01 17:43 | W.PN.CARDCBS ---
Addendum entered and electronically signed by Cordell Ponce MD 05/01/25 19:14:
I saw and examined the patient.
[facility] note was reviewed and I agree with the note.
Comment:
GEN: No distress, awake, Ox3
HEENT: supple, anicteric, mmm
LUNGS: CTA, no wheezes/rales
CV: Reg, S1/S2, 3/6 syst LSB, S3+
ABD: soft, BS+, NT/ND
EXT: No edema
NEURO: Gross non-focal
SKIN: chronic stasis
Plan:
Creatinine up to 2.9. Hold diuretics for 24 hours and then reassess. Weight down to 165. He is clinically improved.
I suspect his abnormal creatinine is from contrast-induced nephropathy after his CT scan. Hopefully it is large to improved.
We will discuss his case and eventually come up with a plan regarding transcatheter aortic valve replacement, likely as an outpatient.
Continue Toprol, midodrine, and Eliquis
Original Note:
Today's Communication / Plan
-
Lasix held due to worsening Cre
Impression / Plan
-
PCP: Dr. Eason
Primary Director Biologics: Dr. Sutton
Impression:
Admitted 04/18/2025 with acute HF and JAY
Acute on chronic HFrEF
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
Recent admission for shock, anemia, GI bleed 03/11/2025 until 03/17/2025
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
Severe since 2019
s/p TAVR work-up with MPG 27 at time of cath and not recommended TAVR 01/2023
RHC/LHC 03/15/2025 MPG 28 mmHg, stable CAD, current TAVR eval in process
ICM EF 31%, echo 03/12/2025
History of reduced ejection fraction heart failure with recovered EF
CAD status post CABGx4 in setting of [place] in 2001
carotid disease s/p left CEA in 2012
s/p Medtronic single chamber ICD 2017
Persistent Afib
Chronic Eliquis OAC
DM 2
Gout
Smoker, ongoing tobacco use
Previous CV studies:
Echo 08/23/2019: EF 30-35%, global hypokinesis with inferolateral, inferior and basal septal akinesis, mild MR, sev pressure 47/28 mmHg
ECHO 12/03/22: EF 50%, mild LVH, stage III diastolic dysfunction, mild MR, severe with peak/mean gradients 54/28 mmHg, KAELYN 0.8 cm�, trace AR, mild TR, PAP 64 mmHg, mild dilation of aorta measuring 4.0 cm
Echo 10/09/2024: EF 35 to 40%, moderate eccentric MR, severe peak/mean 60/34 mmHg and KAELYN 0.8 cm sq, mild aortic insufficiency, moderate TR with PAP 64 mmHg
Echo 03/12/2025: EF 31%, global hypokinesis, moderate MR, severe peak/mean 41/22 mmHg and KAELYN 0.7 cm sq, mild aortic regurgitation, moderate to severe TR with PAP 72 mmHg
Right heart cath/left heart cath 03/15/2025: RA 14, PA 67/28, PCWP 24, LVEDP 18, CO/CI 5.4/3.0, aortic valve with mean pressure gradient 28 mmHg, KAELYN 0.95 cm�.
LAD 100% occluded midportion, NAVAS to LAD versus diagonal is patent to either mid LAD or diagonal branch with anterograde and retrograde filling well-developed septal collaterals from RCA noted. Ramus occluded at origin distal fills via patent free
radial to ramus graft. Circumflex 100% occluded at origin, RCA occluded with patent SVG to PDA. Graft angiography: NAVAS as above, free radial to ramus widely patent, SVG to OM1 100% occluded, SVG to PDA 50 to 55% stenosis in the mid
Plan:
-Admitted with acute HF and JAY 04/18/25
-Weight is down 12 pounds overall with IV diuresis. Previous dry weight at last discharge on 03/17/2025 was 151 pounds and patient weighs 173 pounds on 04/27/2025
-Creatinine is 2.9 on 05/01/2025 and nephrology is managing diuretics, no Lasix given on 05/01/2025. Suspect rise in creatinine is due to IV contrast for CTA LEs last week
-No Diamox given 05/01/2025
-Patient undergoing TAVR evaluation. There are ongoing discussions there is a possibility of inpatient TAVR
-We discussed hurdles to TAVR evaluation including anemia, JAY on CKD 4 and general frailty.
-Medtronic single chamber ICD reprogrammed to VVI 50 on 03/13/25, eventually could consider upgrade to ICD or DIGITAL RETOUCHER-D to help with synchrony
HPI 04/19/2025:
History of Present Illness:
Patient came to the ER 04/18/2025 with weight gain and increasing lower extremity edema despite up titration of outpatient diuretics. He is a 79-year-old male with a history of permanent atrial fibrillation, aortic stenosis with previous evaluation
for TAVR with repeat eval currently undergoing( eval in 2016, 2022-mean gradient on C 27 and TAVR not advised), coronary artery disease, status post CABG, recurrent GI bleeds, chronic kidney disease, ICD, anemia, smoker. He had a previous
admission to [facility] 03/11/2025 - 03/17/2025 with near syncope and a fall, shock. Hemoglobin 6.7, creatinin e 2.6 (baseline 2.0) diuretics (Lasix, Metolazone, Spironolactone) and Coreg held most of admission and restarted at lower outpatient dose.
Required midodrine for BP support. Seen by GI and GI bleed thought to be due to AVMs. 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 Eliquis resumed 5 days after endoscopy, at
lower dose 2.5 mg bid. Repeat TAVR evaluation performed with echo and right and left heart cath (mean gradient 28)and patient is being considered for TAVR, structural heart team plans to discuss him at meeting tomorrow.
CT TAVR 04/16/2025 with measurements to be added as separate addendum, had moderate right and small left pleural effusion
Patient was discharged on 03/31/2025 furosemide 40 mg twice daily, midodrine 5 mg 3 times daily, apixaban 2.5 mg twice daily (dose lowered due to CKD) and atorvastatin. Metolazone, spironolactone, and carvedilol were all held.
Weight progressively increasing since last discharge on 03/17/2025, weight at that time 151 pounds, weight on admission 04/18/2025 180 pounds. Outpatient Lasix has been uptitrated over past month to 120 mg twice daily and metolazone restarted at 2.5
mg -, initially with stable creatinine at 1.56 on 04/02/2025, but 2.1 on 04/18/2025 and progressive weight gain.
Progress Note - Director Biologics
Subjective
Date of Service: May 01, 2025
He is tired
Objective
Labs:
05/01/25 05:20
05/01/25 05:20
Labs
Hgb 11.2 g/dL (13.0-18.0) L 05/01/25 05:20
Hct 34.6 % (39.0-52.0) L 05/01/25 05:20
Plt Count 226 10^3/uL (130-400) 05/01/25 05:20
Sodium 131 mmol/L (135-145) L 05/01/25 05:20
Potassium 3.6 mmol/L (3.5-5.1) 05/01/25 05:20
BUN 79 mg/dl (9-20) H 05/01/25 05:20
Creatinine 2.9 mg/dL (0.7-1.3) H 05/01/25 05:20
Glucose 55 mg/dl (70-99) L* 05/01/25 05:20
Vital Signs and I&O:
Vital Signs
Temp Pulse Resp BP Pulse Ox
97.4 F 82 16 125/74 93
05/01/25 15:51 05/01/25 15:51 05/01/25 15:51 05/01/25 15:51 05/01/25 15:51
Vital Signs
Temp Pulse Resp BP Pulse Ox
97.4 F 82 16 125/74 93
05/01/25 15:51 05/01/25 15:51 05/01/25 15:51 05/01/25 15:51 05/01/25 15:51
Intake & Output
04/29/25 04/30/25 05/01/25 05/02/25
06:59 06:59 06:59 06:59
Intake Total 990 / 990 1100 / 1100 600 / 600
Output Total 1700 / 1700 150 / 150 275 / 275
Balance -710 / -710 950 / 950 325 / 325
Physical Exam
Physical Exam
General: NAD, AAOX3
HEENT: EOMI
Heart: Afib on tele. Irreg irreg, 2/6 AHSM
Lungs: 3 L NC.
Ext: Trace B/L LE edema
Neuro: nonfocal
[2025-05-01 17:44] LABS: Glucose - Point of Care 151 mg/dl (70-99)
[2025-05-01] MEDS: NOVOLOG FLEXPEN 3 UNITS SC (18:23)
[2025-05-01 19:47] VITALS: BP 106/57
[2025-05-01] MEDS: ZYLOPRIM 100 MG PO (20:24)
[2025-05-01 21:09] LABS: Glucose - Point of Care 229 mg/dl (70-99)
[2025-05-01] MEDS: LANTUS 0.14 UNITS SC (22:55)
[2025-05-01] MEDS: REMOVE NICOTINE PATCH 1 PATCH REMOVE (22:56)
[2025-05-01 23:25] VITALS: BP 102/59
[2025-05-02] MEDS: AMBIEN 5 MG PO (02:59)
[2025-05-02 03:28] VITALS: BP 96/56
[2025-05-02 06:00] LABS: Hematocrit 29.8 % (39.0-52.0); Hemoglobin 9.9 g/dL (13.0-18.0); Mean Corp Hgb Conc. 33.2 g/dL (33.0-37.0); Mean Corpuscular Volume 100.7 fL (80.0-94.0); Nucleated Red Blood Cells % 0 % (-); Platelet Count 191 10^3/uL (130-400); Red Cell Dist. Width 17.3 % (11.5-14.5)
[2025-05-02 06:14] LABS: ALT (SGPT) 17 U/L (0-50); AST (SGOT) 32 U/L (17-59); Albumin 2.9 g/dl (3.5-5.0); Alkaline Phosphatase 116 U/L (38-126); Blood Urea Nitrogen 78 mg/dl (9-20); Calcium 8.6 mg/dl (8.4-10.2); Carbon Dioxide 32 mmol/L (22-30); Chloride 92 mmol/L (98-107); Estimated Creatinine Clearance 18 ml/min; Glucose 108 mg/dl (70-99); Potassium 4.0 mmol/L (3.5-5.1); Sodium 128 mmol/L (135-145); Total Protein 5.7 g/dl (6.3-8.2); eGFR 21.34
[2025-05-02 07:00] VITALS: BP 93/61
--- NOTE | 2025-05-02 07:23 | W.PN.HOSP.TC ---
Addendum entered and electronically signed by Julio Phillips MD 05/02/25 21:39:
Attending Addendum-
I saw and evaluated the patient. I reviewed the resident�s note and agree with findings and plan as documented in the resident�s note. Sub: 'I feel good doc!' denies SOB CP palps. Patient denies diarrhea urinating as usual. Full 12 point ROS
reviewed and negative except as documented Exam: Vitals reviewed in chart GEN-NAD heart RRR / SM @ RUSB lungs decreased BS LL, scattered crackles, LE trace edema Neuro AAO x 2
Plan:
#Acute on chronic HFrEF:
- cont diuretic holiday
- echo 03/12-Global hypokinesis. Left ventricular ejection fraction is 31% (decreased EF from 10/09 35-40), AV-calculated valve area is 0.7 cm2
- Continue to monitor I's and O's and daily weights
- Aggressively replete electrolytes-weights decreasing
- approaching dry weight
#JAY on CKD stage 3b:
- Suspect due to cardiorenal syndrome with SPRING
- creatinine up to 2.9 baseline 2.0
- diuretics on hold
- likely plateaued
- CTM
# Contraction Alkalosis
- bicarb stable
- CTM
# Acute hypoxic respiratory failure
- wean o2 for sat 88-92%
- may need home o2
# B/L Pleural Effusion RT>LT
- from CHF
- thoracentesis- 04/30-1850mls- transudate
- CTM
#Hyponatremia
- Appears chronic
- trending down
- Suspect hypervolemic
# Severe AVR- for TAVR as OP
- 04/28- CT A/P w contrast
- appreciate cards input
#IDDM
- controlled
- cont home regimen-Lantus 14 units/NovoLog 3 units with meals
- Continue Accu-Cheks, additional sliding scale as needed
- Adjust regimen as needed
- Diabetic diet
#A-fib:
- Chronic
- Currently rate controlled
- Continue anticoagulation with Eliquis
# CAD s/p CABG x 4
# Tobacco abuse- nicotine patch advised to quit probable underlying COPD OP PFT's
DVT prophylaxis: Eliquis
CODE STATUS: Full code
Dispo DC home once cr starts trending down and able to reinitiate diuretic regimen
Time spent coordinating care, review of plan of care with resident, personally reviewed records in EMR, med rec, consults, notes, labs, radiology, d/w nursing � 51 mins
Original Note:
Today's Communication/Plan
-
- Continue to monitor Cr
- Potential restart diuretics tmrw if Cr trending down
- Trial off O2 NC
- Continue metoprolol succinate (12.mg daily), midodrine (5mg tid)
- Continue atorvastatin 80mg daily
Assessment / Plan
Assessment / Plan
Robert An is a 79yo M with a pmh notable for CAD (s/p CABG and stents), HFrEF (30 LVEF %), severe , A-fib (on Eliquis, has ICD), carotid artery stenosis (status post left CEA), IDDM, and CKD stage IIIb who presented with increasing lower
extremity edema and abrupt weight gain (20lbs > dry weight), found to have acute on chronic HFrEF & cardiorenal syndrome w pleural effusions, now s/p thoracentesis (04/30), holding diuresis pending improvement in JAY.
#Acute on chronic HFrEF (30% EF)
#
#Pleural effusions s/p R-sided thoracentesis
On admission pt ~20lbs > dry weight & w pulm edema/bilateral pleural effusions on CXR. S/p lasix, metolazone, acetazolamide & R-sided thoracentesis (04/30) of 1850 cc - MELVIN improved, approaching dry weight. Per cards (05/01), pt clinically improved.
- Continue to monitor I&Os and daily weights (weight 74.8kg close to dry weight: 72-73kg)
- Per renal, hold diuresis pending downtrend of Cr (s/p acetazolamide 04/28-; lasix ; metolazone )
- Pending pleural fluid cx; preliminary gram stain: no organisms seen; fluid analysis non-exudative
- Continue metoprolol succinate (12.mg daily), midodrine (5mg tid)
- Continue atorvastatin 80mg daily
- CT TAVR completed 04/29; plan for outpatient TAVR per cards (05/01) - inpt workup complete
- Encourage OOB with PT/OT
#JAY on CKD stage IIIb
#Cardiorenal syndrome
#Alkalosis
Creatinine stable from yesterday at 2.9, likely reaching plateau/peak s/p contrast-induced JAY. Baseline ~2.0.
- Per cards, hold diuretics for 24 hours and then reassess Cr
- Per renal, await Cr plateau & decrease, then revisit diuretic regimen
- Continue to monitor Cr
#Acute hypoxic respiratory failure, resolving
Currently on 3L O2 nasal cannula (100% O2).
- Trial O2 requirements with ambulation, plan to wean off O2 NC
- Duonebs PRN
#Diarrhea, resolved
Diarrhea beginning overnight 04/29. Afebrile, WBC wnl. NB diarrhea. Likely 2/2 acetazolamide, resolved w imodium & cessation of diamox.
- Continue to monitor electrolytes & fluid status, repleting lytes as needed
- PRN imodium
#Alkalosis
#Hyponatremia
Hyponatremia appears chronic, stable over months. Na 128 today. Likely hypervolemic hyponatremia exacerbated by diuresis (lasix at home). pH 7.5, alkalosis bicarb 32, likely 2/2 diuresis & diminished renal fxn CKD IV.
- Monitor labs with ongoing diuresis
#Hypokalemia, resolved
Stable, wnl today 4.0.
- Continue to monitor, replete as needed
#Chronic conditions
#A-fib: Chronic, currently rate controlled. Continue anticoagulation with Eliquis.
#IDDM: Insulin dosing to match home dose (lantus 14, novolog 3)
#Global
- DVT prophylaxis: Eliquis
- CODE STATUS: Full code
- Dispo: Likely to home (lives at home w ), PT/OT recommends home health; dispo soon, pending resolution of JAY & planning home diuresis regimen - likely dispo Wednesday
Anticipated Discharge: 24 - 48 hours
Subjective/Interval History
-
Date of Service: May 02, 2025
Somnolent this am, difficult to keep awake or elicit more than 1-word answers. Answered yes to 'are you hot' and 'are you cold.' When asked how he was feeling answer was 'just tired.' Denied any SOB, pain, n/v, diarrhea.
Objective Data
-
Labs:
Laboratory Results
05/02/25
05:22
WBC 5.7
Hgb 9.9 L
Hct 29.8 L
Plt Count 191
Sodium 128 L
Potassium 4.0
Chloride 92 L
Carbon Dioxide 32 H
BUN 78 H
Creatinine 2.9 H
Glucose 108 H
Calcium 8.6
Total Bilirubin 0.8
AST 32
ALT 17
Alkaline Phosphatase 116
Vital Signs:
Vital Signs
Temp Pulse Resp BP Pulse Ox
97.8 F 69 16 96/56 100
05/02/25 03:28 05/02/25 03:28 05/02/25 03:28 05/02/25 03:28 05/02/25 03:28
I&O
05/01/25 05/02/25 05/03/25
06:59 06:59 06:59
Intake Total 600 / 600 180 / 180
Output Total 275 / 275 125 / 125
Balance 325 / 325 55 / 55
Review of Systems
-
Unable to obtain full review of systems at this time due to: Dementia and Other (somnolent)
History Source: Patient
Constitutional: Reports No Symptoms
Respiratory: Reports No Symptoms
Abdomen/GI: Reports No Symptoms
Physical Exam
-
General: No Apparent Distress
HEENT: Normocephalic, Atraumatic and Anicteric
Respiratory: Crackles (some crackles at bilateral bases )
Cardiac: Regular Rhythm and S1/S2
GI: Soft, Nontender and Nondistended
Musculoskeletal: Other (trace suly CHARLES)
Skin: Warm and Dry
Psych: Apparent Dementia
Data Reviewed
-
Total Time Spent with Patient (in minutes): 10
Critical Care Time (in minutes): 35
Labs: Labs Reviewed by me
[2025-05-02 07:40] LABS: Glucose - Point of Care 83 mg/dl (70-99)
[2025-05-02] MEDS: NOVOLOG FLEXPEN SC (08:38)
[2025-05-02] MEDS: NOVOLOG FLEXPEN-MODERATE RESISTANCE SC (08:39)
[2025-05-02] MEDS: IMODIUM 2 MG PO (09:28)
[2025-05-02] MEDS: ELIQUIS 5 MG PO (09:29)
[2025-05-02] MEDS: TOPROL XL 12.5 MG PO (09:29)
[2025-05-02] MEDS: ZYLOPRIM 100 MG PO ×2 (09:29→20:15)
[2025-05-02] MEDS: PROTONIX 40 MG PO ×2 (09:29→20:14)
[2025-05-02] MEDS: NICODERM TRANSDERMAL 14 MG TRANSDERM (09:30)
[2025-05-02] MEDS: LIPITOR 80 MG PO (09:30)
[2025-05-02] MEDS: KCL 20 MEQ PO ×2 (09:31→20:15)
[2025-05-02 11:00] VITALS: BP 92/44
[2025-05-02 12:06] LABS: Glucose - Point of Care 173 mg/dl (70-99)
--- NOTE | 2025-05-02 12:59 | W.PN.NEPH.PH ---
Today's Communication / Plan
-
AM labs holding diuretics
Assessment/Plan
-
IMP:
Acute on Chronic HFrEF
Abnormal Troponin - Likely secondary to CHF
JAY on CKD 4baseline cr at 2-follows Dr Yates
Paroxysmal atrial fibrillation
Chronic hyponatremia
COPD without exacerbation
Chronic heart failure reduced EF 30%
CAD/CABG x 4 (2001)
Medtronic single-chamber ICD, 2018
Carotid disease -s/p left CEA 2012.
Essential hypertension
DM 2
Severe aortic stenosis -previously declined TAVR workup.
Hyperlipidemia
Gout
h/o GI bleed 03/2025 , known h/o AVMS
traumatic left-sided rib fractures -due to fall last admit in March
Plan:
no diamox
no diuretics for today
rising Cr likely due to CT IV contrast 04/28, Plateaued
await TAVR team eval as femoral access may be difficult
no emergent HD needs
follow BMP
Minimal change in GFR with a creatinine of 2 versus 2.9 as patient has poor kidney function at baseline. Will see how much improvement we could get to optimize him for procedure although I do not expect significant improvement
prognosis is guarded
-
-
Date of Service: May 02, 2025
CC / HPI / ROS
-
Chief Complaint:
Acute kidney injury
History of Present Illness:
JAY/Cr worse to 2.9
metabolic alkalosis slightly better 32
Hemodynamically stable on midodrine
off lasix, weights down still
Review of Systems:
Nonoliguric
No fevers or chills
No obvious shortness of breath
Awake and oriented
Labs
-
Labs:
WBC 5.7 10^3/uL (4.8-10.8) 05/02/25 05:22
RBC 2.96 10^6/uL (4.70-6.10) L 05/02/25 05:22
Hgb 9.9 g/dL (13.0-18.0) L 05/02/25 05:22
Hct 29.8 % (39.0-52.0) L 05/02/25 05:22
Plt Count 191 10^3/uL (130-400) 05/02/25 05:22
Sodium 128 mmol/L (135-145) L 05/02/25 05:22
Potassium 4.0 mmol/L (3.5-5.1) 05/02/25 05:22
Chloride 92 mmol/L (98-107) L 05/02/25 05:22
Carbon Dioxide 32 mmol/L (22-30) H 05/02/25 05:22
BUN 78 mg/dl (9-20) H 05/02/25 05:22
Creatinine 2.9 mg/dL (0.7-1.3) H 05/02/25 05:22
eGFR 21.34 05/02/25 05:22
Glucose 108 mg/dl (70-99) H 05/02/25 05:22
Calcium 8.6 mg/dl (8.4-10.2) 05/02/25 05:22
Phosphorus 4.1 mg/dl (2.5-4.5) 04/21/25 11:18
Jui-X-Stsykojypdk Pept 63258 pg/ml 04/18/25 18:44
Albumin 2.9 g/dl (3.5-5.0) L 05/02/25 05:22
Physical Exam
-
Vital Signs:
Vital Signs
Temp Pulse Resp BP Pulse Ox
98.4 F 72 16 92/44 97
05/02/25 11:00 05/02/25 11:00 05/02/25 11:00 05/02/25 11:00 05/02/25 11:00
Cardiovascular:: Regular rate and rhythm
Respiratory:: Bilateral: Coarse and Bilateral: Rales
Lung Excursion:: Normal
Abdomen:: Nontender and Soft
Bowel Sounds:: Normal
Extremity Edema:: None: Bilateral:
[2025-05-02] MEDS: NOVOLOG FLEXPEN-MODERATE RESISTANCE 1 UNITS SC (13:26)
[2025-05-02] MEDS: NON-FORMULARY ITEM 1 UNIT BOTH EYES ×2 (13:27→22:18)
[2025-05-02] MEDS: NOVOLOG FLEXPEN 3 UNITS SC ×2 (13:27→17:37)
[2025-05-02 15:00] VITALS: BP 97/54
--- NOTE | 2025-05-02 16:46 | CM ---
CM following for discharge planning needs. Pt is being trialed off O2 today. Home Care services are being considered.
Plan: CM to follow up in AM
[2025-05-02 17:08] LABS: Glucose - Point of Care 280 mg/dl (70-99)
--- NOTE | 2025-05-02 17:19 | W.PN.CARDCBS ---
Addendum entered and electronically signed by Cordell Ponce MD 05/02/25 17:37:
I saw and examined the patient.
The Sorting Grapple Operator's note was reviewed and I agree with the note.
Comment:
GEN: No distress, awake, Ox3
HEENT: supple, anicteric, mmm
LUNGS: dec Bs at bases
CV: Reg, S1/S2, 3/6 syst LSB, S3+
ABD: soft, BS+, NT/ND
EXT: +1 edema
NEURO: Gross non-focal
SKIN: No rash
Plan:
Discussed case at length with transcatheter aortic valve team. Plan will be for right heart cath in a.m. to better assess his filling pressures.
His creatinine remains high at 2.9. If we are unable to get his creatinine better with diuresis or better assessment of volume we likely will proceed with transcatheter aortic valve replacement as inpatient. If he can be stabilized we will likely
discharge him and schedule him for close follow-up for outpatient transcatheter valve replacement. I discussed this at length with him.
Continue to hold diuretics for now. Keep n.p.o. after midnight. Will hold Eliquis until right heart cath in a.m.
Cont midodrine 5mg 3 times daily to support blood pressure
Original Note:
Today's Communication / Plan
-
RHC in a.m.
Impression / Plan
-
PCP: Dr. Eason
Primary Train Caller: Dr. Sutton
Impression:
Admitted 04/18/2025 with acute HF and JAY
Acute on chronic HFrEF
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
Recent admission for shock, anemia, GI bleed 03/11/2025 until 03/17/2025
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
Severe since 2019
s/p TAVR work-up with MPG 27 at time of cath and not recommended TAVR 01/2023
RHC/LHC 03/15/2025 MPG 28 mmHg, stable CAD, current TAVR eval in process
ICM EF 31%, echo 03/12/2025
History of reduced ejection fraction heart failure with recovered EF
[place] [facility] [place]
carotid disease s/p left CEA in 2012
s/p Medtronic single chamber ICD 2017
Persistent Afib
Chronic Eliquis OAC
DM 2
Gout
Smoker, ongoing tobacco use
Previous CV studies:
Echo 08/23/2019: EF 30-35%, global hypokinesis with inferolateral, inferior and basal septal akinesis, mild MR, sev pressure 47/28 mmHg
ECHO 12/03/22: EF 50%, mild LVH, stage III diastolic dysfunction, mild MR, severe with peak/mean gradients 54/28 mmHg, KAELYN 0.8 cm�, trace AR, mild TR, PAP 64 mmHg, mild dilation of aorta measuring 4.0 cm
Echo 10/09/2024: EF 35 to 40%, moderate eccentric MR, severe peak/mean 60/34 mmHg and KAELYN 0.8 cm sq, mild aortic insufficiency, moderate TR with PAP 64 mmHg
Echo 03/12/2025: EF 31%, global hypokinesis, moderate MR, severe peak/mean 41/22 mmHg and KAELYN 0.7 cm sq, mild aortic regurgitation, moderate to severe TR with PAP 72 mmHg
Right heart cath/left heart cath 03/15/2025: RA 14, PA 67/28, PCWP 24, LVEDP 18, CO/CI 5.4/3.0, aortic valve with mean pressure gradient 28 mmHg, KAELYN 0.95 cm�.
LAD 100% occluded midportion, NAVAS to LAD versus diagonal is patent to either mid LAD or diagonal branch with anterograde and retrograde filling well-developed septal collaterals from RCA noted. Ramus occluded at origin distal fills via patent free
radial to ramus graft. Circumflex 100% occluded at origin, RCA occluded with patent SVG to PDA. Graft angiography: NAVAS as above, free radial to ramus widely patent, SVG to OM1 100% occluded, SVG to PDA 50 to 55% stenosis in the mid
Plan:
-Admitted with acute HF and JAY 04/18/25
-No weight performed on 05/02/2025, but earlier this admission patient appeared to have lost about 12 pounds with IV diuresis.
-Previous dry weight at last discharge on 03/17/2025 was 151 pounds and patient weighs 173 pounds on 04/27/2025
-Creatinine is stable at 2.9 on my review of labs 05/02/2025
-Plan is for C 04/25/2025, case added to [employer] Testing Supervisor scheduled by me 05/02/2025
-Patient undergoing TAVR evaluation. There are ongoing discussions there is a possibility of inpatient TAVR
-Medtronic single chamber ICD reprogrammed to VVI 50 on 03/13/25, eventually could consider upgrade to ICD or [employer]-D to help with synchrony
HPI 04/19/2025:
History of Present Illness:
Patient came to the ER 04/18/2025 with weight gain and increasing lower extremity edema despite up titration of outpatient diuretics. He is a 79-year-old male with a history of permanent atrial fibrillation, aortic stenosis with previous evaluation
for TAVR with repeat eval currently undergoing( eval in 2022-mean gradient on LHC 27 and TAVR not advised), coronary artery disease, status post CABG, recurrent GI bleeds, chronic kidney disease, ICD, anemia, smoker. He had a previous
admission to [facility] 03/11/2025 - 03/17/2025 with near syncope and a fall, shock. Hemoglobin 6.7, creatinin e 2.6 (baseline 2.0) diuretics (Lasix, Metolazone, Spironolactone) and Coreg held most of admission and restarted at lower outpatient dose.
Required midodrine for BP support. Seen by GI and GI bleed thought to be due to AVMs. 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 Eliquis resumed 5 days after endoscopy, at
lower dose 2.5 mg bid. Repeat TAVR evaluation performed with echo and right and left heart cath (mean gradient 28)and patient is being considered for TAVR, structural heart team plans to discuss him at meeting tomorrow.
CT TAVR 04/16/2025 with measurements to be added as separate addendum, had moderate right and small left pleural effusion
Patient was discharged on 03/31/2025 furosemide 40 mg twice daily, midodrine 5 mg 3 times daily, apixaban 2.5 mg twice daily (dose lowered due to CKD) and atorvastatin. Metolazone, spironolactone, and carvedilol were all held.
Weight progressively increasing since last discharge on 03/17/2025, weight at that time 151 pounds, weight on admission 04/18/2025 180 pounds. Outpatient Lasix has been uptitrated over past month to 120 mg twice daily and metolazone restarted at 2.5
mg --, initially with stable creatinine at 1.56 on 04/02/2025, but 2.1 on 04/18/2025 and progressive weight gain.
Progress Note - Train Caller
Subjective
Date of Service: May 02, 2025
He is out of breath
Objective
Labs:
05/02/25 05:22
05/02/25 05:22
Labs
Hgb 9.9 g/dL (13.0-18.0) L 05/02/25 05:22
Hct 29.8 % (39.0-52.0) L 05/02/25 05:22
Plt Count 191 10^3/uL (130-400) 05/02/25 05:22
Sodium 128 mmol/L (135-145) L 05/02/25 05:22
Potassium 4.0 mmol/L (3.5-5.1) 05/02/25 05:22
BUN 78 mg/dl (9-20) H 05/02/25 05:22
Creatinine 2.9 mg/dL (0.7-1.3) H 05/02/25 05:22
Glucose 108 mg/dl (70-99) H 05/02/25 05:22
Vital Signs and I&O:
Vital Signs
Temp Pulse Resp BP Pulse Ox
97.8 F 74 18 97/54 94
05/02/25 15:00 05/02/25 15:00 05/02/25 15:00 05/02/25 15:00 05/02/25 15:00
Vital Signs
Temp Pulse Resp BP Pulse Ox
97.8 F 74 18 97/54 94
05/02/25 15:00 05/02/25 15:00 05/02/25 15:00 05/02/25 15:00 05/02/25 15:00
Intake & Output
04/30/25 05/01/25 05/02/25 05/03/25
06:59 06:59 06:59 06:59
Intake Total 1100 / 1100 600 / 600 180 / 180
Output Total 150 / 150 275 / 275 125 / 125
Balance 950 / 950 325 / 325 55 / 55
Physical Exam
Physical Exam
General: NAD, AAOX3
Heart: Afib on tele.
Lungs: 1 L NC.
Ext: Trace B/L LE edema
[2025-05-02] MEDS: ANTIFUNGAL CLEAR 1 APPLIC TOPICAL ×2 (17:36→22:22)
[2025-05-02] MEDS: NOVOLOG FLEXPEN-MODERATE RESISTANCE 5 UNITS SC (17:38)
[2025-05-02 19:00] VITALS: BP 113/68
[2025-05-02 21:39] LABS: Glucose - Point of Care 301 mg/dl (70-99)
[2025-05-02] MEDS: LANTUS 0.14 UNITS SC (22:16)
[2025-05-02] MEDS: REMOVE NICOTINE PATCH 1 PATCH REMOVE (22:18)
[2025-05-02 23:00] VITALS: BP 113/64
[2025-05-02 23:49] LABS: Glucose - Point of Care 275 mg/dl (70-99)
[2025-05-03] VITALS (13 sets, daily range): BP systolic 66–128; BP diastolic 10–76; PULSE 88–93; O2SAT 93; BMI 27.8
[2025-05-03] MEDS: IMODIUM 2 MG PO (03:36)
[2025-05-03 05:59] LABS: Glucose - Point of Care 114 mg/dl (70-99)
[2025-05-03 06:04] LABS: Hematocrit 32.0 % (39.0-52.0); Hemoglobin 10.7 g/dL (13.0-18.0); Mean Corp Hgb Conc. 33.4 g/dL (33.0-37.0); Mean Corpuscular Volume 100.0 fL (80.0-94.0); Nucleated Red Blood Cells % 0 % (-); Platelet Count 205 10^3/uL (130-400); Red Cell Dist. Width 17.4 % (11.5-14.5)
[2025-05-03 06:37] LABS: ALT (SGPT) 17 U/L (0-50); AST (SGOT) 30 U/L (17-59); Albumin 3.0 g/dl (3.5-5.0); Alkaline Phosphatase 131 U/L (38-126); Blood Urea Nitrogen 81 mg/dl (9-20); Calcium 8.9 mg/dl (8.4-10.2); Carbon Dioxide 31 mmol/L (22-30); Chloride 93 mmol/L (98-107); Estimated Creatinine Clearance 18 ml/min; Glucose 109 mg/dl (70-99); Potassium 3.6 mmol/L (3.5-5.1); Sodium 130 mmol/L (135-145); Total Protein 6.1 g/dl (6.3-8.2); eGFR 21.34
--- NOTE | 2025-05-03 07:05 | W.PN.HOSP.TC ---
Addendum entered and electronically signed by Julio Phillips MD 05/03/25 20:48:
Attending Addendum-
I saw and evaluated the patient. I reviewed the resident�s note and agree with findings and plan as documented in the resident�s note. Sub: 'Im feeling good. Im not sure whats going on today.' Patient denies diarrhea urinating as usual. Denies SOB
CP palps. Full 12 point ROS reviewed and negative except as documented Exam: Vitals reviewed in chart GEN-NAD heart RRR 11/09 SM @ RUSB lungs decreased BS LL, scattered crackles, LE trace edema Neuro AAO x 2
Plan:
#Acute on chronic HFrEF
-RHC and LHC on 03/15
- diuretics on hold
- echo 03/12-Global hypokinesis. Left ventricular ejection fraction is 31% (decreased EF from 10/09 35-40), AV-calculated valve area is 0.7 cm2
- Continue to monitor I's and O's and daily weights
- Aggressively replete electrolytes
- for RHC 05/03 to better assess filling pressures
#JAY on CKD stage 3b:
- Suspect due to cardiorenal syndrome with SPRING
- creatinine up to 2.9 baseline 2.0
- diuretics on hold
- seems to have plateaued
- monitor post RHC
# Contraction Alkalosis
- bicarb stable
- CTM
# Acute hypoxic respiratory failure
- wean o2 for sat 88-92%
- may need home o2
# B/L Pleural Effusion RT>LT
- from CHF
- thoracentesis- 04/30-1850mls- transudate
- CTM
#Hyponatremia
- Appears chronic
- stable
- Suspect hypervolemic
# Severe
- 04/28- CT A/P w contrast
- appreciate cards input
- for RHC today to determine inpatient vs op TAVR
#IDDM
- controlled
- cont home regimen-Lantus 14 units/NovoLog 3 units with meals
- Continue Accu-Cheks, additional sliding scale as needed
- Adjust regimen as needed
- Diabetic diet
#A-fib:
- Chronic
- Currently rate controlled
- Continue anticoagulation with Eliquis
# CAD s/p CABG x 4
# Tobacco abuse- nicotine patch advised to quit probable underlying COPD OP PFT's
DVT prophylaxis: Eliquis
CODE STATUS: Full code
Time spent coordinating care, review of plan of care with resident, personally reviewed records in EMR, med rec, consults, notes, labs, radiology, d/w nursing � 52 mins
Original Note:
Today's Communication/Plan
-
- Cards planning R heart cath today to eval filling pressures - to follow up
- Pending Cr trend & RHC results, potential for TAVR inpatient (vs. close f/u OP procedure)
- Per renal & cards, hold diuresis pending downtrend of Cr (s/p acetazolamide 04/28-; lasix 04/27-; metolazone 04/23-)
- Continue to monitor I&Os and daily weights
- Continue metoprolol succinate (12.mg daily), midodrine (5mg tid)
- Continue atorvastatin 80mg daily
- Encourage OOB with PT/OT
- Per renal, await Cr plateau & decrease, then return to diuretic regimen
- Continue to monitor Cr
Assessment / Plan
Assessment / Plan
Robert An is a 79yo M with a pmh notable for CAD (s/p CABG and stents), HFrEF (30 LVEF %), severe , A-fib (on Eliquis, has ICD), carotid artery stenosis (status post left CEA), IDDM, and CKD stage IIIb who presented with increasing lower
extremity edema and abrupt weight gain (20lbs > dry weight), found to have acute on chronic HFrEF & cardiorenal syndrome w pleural effusions, now s/p thoracentesis (04/30), holding diuresis pending improvement in JAY, pending R heart cath.
#Acute on chronic HFrEF (30% EF)
#
#Pleural effusions s/p R-sided thoracentesis
On admission pt ~20lbs > dry weight & w pulm edema/bilateral pleural effusions on CXR. S/p lasix, metolazone, acetazolamide & R-sided thoracentesis (04/30) of 1850 cc - MELVIN improved. Pleural fluid cx with no growth; non-exudative. Dry weight
(72-73kg) - pt weight trended up today to 75.84kg from 74.8kg yesterday, likely 2/2 holding diuresis while awaiting improved Cr. BUN slight increase (78>81). Cards eval on 05/02: 'If we are unable to get his creatinine better with diuresis or better
assessment of volume we likely will proceed with transcatheter aortic valve replacement as inpatient. If he can be stabilized we will likely discharge him and schedule him for close follow-up for outpatient transcatheter valve replacement.' S/p CT
TAVR on 04/29.
- Cards planning R heart cath today to eval filling pressures - to follow up
- Pending Cr trend & RHC results, potential for TAVR inpatient (vs. close f/u OP procedure)
- Per renal & cards, hold diuresis pending downtrend of Cr (s/p acetazolamide 04/28-; lasix ; metolazone )
- Continue to monitor I&Os and daily weights
- Continue metoprolol succinate (12.mg daily), midodrine (5mg tid)
- Continue atorvastatin 80mg daily
- Encourage OOB with PT/OT
#JAY on CKD stage IIIb
#Cardiorenal syndrome
Creatinine stable from 05/01 at 2.9, likely now at plateau/peak s/p contrast-induced JAY. Baseline ~2.0.
- Per renal, await Cr plateau & decrease, then return to diuretic regimen
- Continue to monitor Cr
#Acute hypoxic respiratory failure, resolving
Decreased from 3L to 1L O2 NC on 05/02 - today 93% O2 sat on 1L.
- Trial O2 requirements on RA
- Duonebs PRN
#Alkalosis
#Hyponatremia
Hyponatremia appears chronic, stable over months. Na 128 today. Likely hypervolemic hyponatremia exacerbated by diuresis (lasix at home). Bicarb trending down (32>31). Alkalosis likely 2/2 diuresis & diminished renal fxn CKD IV.
- Monitor labs
#Chronic conditions
#A-fib: Chronic, currently rate controlled. Continue anticoagulation with Eliquis.
#IDDM: Insulin dosing to match home dose (lantus 14, novolog 3)
#Global
- DVT prophylaxis: Eliquis (holding prior to RHC 05/03)
- CODE STATUS: Full code
- Dispo: Likely to home (lives at home w ), PT/OT recommends home health; dispo soon, pending resolution of JAY & planning home diuresis regimen - likely dispo Wednesday
Anticipated Discharge: 24 - 48 hours
Subjective/Interval History
-
Date of Service: May 03, 2025
Pt doing fine this am. Denies SOB, CP. Says he is ready for RHC later today. Says he had some loose stools this am. No current urge to have diarrhea.
Objective Data
-
Labs:
Laboratory Results
05/03/25
05:31
WBC 7.2
Hgb 10.7 L
Hct 32.0 L
Plt Count 205
Sodium 130 L
Potassium 3.6
Chloride 93 L
Carbon Dioxide 31 H
BUN 81 H
Creatinine 2.9 H
Glucose 109 H
Calcium 8.9
Total Bilirubin 0.8
AST 30
ALT 17
Alkaline Phosphatase 131 H
Vital Signs:
Vital Signs
Temp Pulse Resp BP Pulse Ox
97.7 F 91 22 128/76 93
05/03/25 03:00 05/03/25 03:00 05/03/25 03:00 05/03/25 03:00 05/03/25 03:00
I&O
05/02/25 05/03/25 05/04/25
06:59 06:59 06:59
Intake Total 180 / 180 680 / 680
Output Total 125 / 125 50 / 50
Balance 55 / 55 630 / 630
Review of Systems
-
History Source: Patient
Constitutional: Reports No Symptoms
Respiratory: Reports No Symptoms
Cardiac: Reports No Symptoms
Abdomen/GI: Reports Diarrhea (one loose BM earlier)
Physical Exam
-
General: Other (lying in bed, elderly man)
HEENT: Normocephalic, Atraumatic and Anicteric
Respiratory: Clear to Auscultation
Cardiac: Regular Rhythm and S1/S2
GI: Nontender and Nondistended
Musculoskeletal: Other (non-pitting trace MELVIN; chronic venostatic changes to bilateral LE)
Skin: Warm and Dry
Neuro: Awake
Psych: Calm
Data Reviewed
-
Total Time Spent with Patient (in minutes): 15
Critical Care Time (in minutes): 30
Labs: Labs Reviewed by me
[2025-05-03] MEDS: NOVOLOG FLEXPEN SC ×3 (07:55→20:45)
--- NOTE | 2025-05-03 08:45 | ITS.CL.CATH ---
Architectural Examiner - Catheterization
Cardiac Catheterization
Procedure Report:
RIGHT HEART CATHETERIZATION
Date of Procedure: May 03, 2025
Referring: Steven Quinn MD
INDICATION: Worsening renal function, assess invasive hemodynamics
Hemodynamics (mmHg):
RA (m) : 16
RV (s/d,m) : 68/10, 13
PA (s/d, m) : 67.35, 47
PCWP (m) : 39 with V waves up to 47
PA saturation: 57.9% on 8 L of oxygen via nasal cannula
AO saturation: 88% on 8 L of oxygen via nasal cannula using noninvasive pulse ox
RA saturation: 60% on 8 L of oxygen via nasal cannula
Cardiac Output : 5.03 L/min by Tejas calculation
Cardiac Index : 2.75 L/min/m-2 by Tejas calculation
Systemic vascular resistance: 1208 dsc^(-5)
Pulmonary vascular resistance: 1.59 huang unit
RADIATION SUMMARY: Fluoro Time (min): 2.8, Dose (mGy): 18.2, DAP (Gy.cm2) : 2.6.
CONCLUSION:
1. Significantly elevated right and left-sided filling pressures with normal cardiac output.
Jyoti Butts MD, [facility], [facility]
Copy to: Steven Quinn MD and Nazario Sutton MD
[2025-05-03] MEDS: LIPITOR 80 MG PO (09:08)
[2025-05-03] MEDS: TOPROL XL 12.5 MG PO (09:09)
[2025-05-03] MEDS: PROTONIX 40 MG PO ×2 (09:10→20:09)
[2025-05-03] MEDS: NICODERM TRANSDERMAL 14 MG TRANSDERM (09:10)
[2025-05-03] MEDS: ANTIFUNGAL CLEAR 1 APPLIC TOPICAL ×2 (09:10→22:39)
[2025-05-03] MEDS: KCL 20 MEQ PO ×2 (09:10→20:08)
[2025-05-03] MEDS: ZYLOPRIM 100 MG PO ×2 (09:11→20:08)
[2025-05-03 11:52] LABS: Glucose - Point of Care 142 mg/dl (70-99)
--- NOTE | 2025-05-03 14:44 | W.PN.NEPH.PH ---
Today's Communication / Plan
-
AM labs
Right heart cath pending
Assessment/Plan
-
IMP:
Acute on Chronic HFrEF
Abnormal Troponin - Likely secondary to CHF
JAY on CKD 4baseline cr at 2-follows Dr Yates
Paroxysmal atrial fibrillation
Chronic hyponatremia
COPD without exacerbation
Chronic heart failure reduced EF 30%
CAD/CABG x 4 (2001)
Medtronic single-chamber ICD, 2018
Carotid disease -s/p left CEA 2012.
Essential hypertension
DM 2
Severe aortic stenosis -previously declined TAVR workup.
Hyperlipidemia
Gout
h/o GI bleed 03/2025 , known h/o AVMS
traumatic left-sided rib fractures -due to fall last admit in March
Plan:
no diamox
no diuretics for today
rising Cr likely due to CT IV contrast 04/28, Plateaued
await TAVR planning
no emergent HD needs
follow BMP
Minimal change in GFR with a creatinine of 2 versus 2.9 as patient has poor kidney function at baseline. Will see how much improvement we could get to optimize him for procedure although I do not expect significant improvement
For right heart catheterization today
prognosis is guarded
-
-
Date of Service: May 03, 2025
CC / HPI / ROS
-
Chief Complaint:
Acute kidney injury
History of Present Illness:
JAY/Cr worse to 2.9
metabolic alkalosis slightly better 32
Hemodynamically stable on midodrine
off lasix, weights down still
Review of Systems:
Nonoliguric
No fevers or chills
No obvious shortness of breath
Awake and oriented
Labs
-
Labs:
WBC 7.2 10^3/uL (4.8-10.8) 05/03/25 05:31
RBC 3.20 10^6/uL (4.70-6.10) L 05/03/25 05:31
Hgb 10.7 g/dL (13.0-18.0) L 05/03/25 05:31
Hct 32.0 % (39.0-52.0) L 05/03/25 05:31
Plt Count 205 10^3/uL (130-400) 05/03/25 05:31
Sodium 130 mmol/L (135-145) L 05/03/25 05:31
Potassium 3.6 mmol/L (3.5-5.1) 05/03/25 05:31
Chloride 93 mmol/L (98-107) L 05/03/25 05:31
Carbon Dioxide 31 mmol/L (22-30) H 05/03/25 05:31
BUN 81 mg/dl (9-20) H 05/03/25 05:31
Creatinine 2.9 mg/dL (0.7-1.3) H 05/03/25 05:31
eGFR 21.34 05/03/25 05:31
Glucose 109 mg/dl (70-99) H 05/03/25 05:31
Calcium 8.9 mg/dl (8.4-10.2) 05/03/25 05:31
Phosphorus 4.1 mg/dl (2.5-4.5) 04/21/25 11:18
Jvy-K-Byzmpzrjddl Pept 75387 pg/ml 04/18/25 18:44
Albumin 3.0 g/dl (3.5-5.0) L 05/03/25 05:31
Physical Exam
-
Vital Signs:
Vital Signs
Temp Pulse Resp BP Pulse Ox
97.8 F 96 17 121/70 96
05/03/25 10:53 05/03/25 14:10 05/03/25 10:53 05/03/25 14:10 05/03/25 10:53
Cardiovascular:: Regular rate and rhythm
Respiratory:: Bilateral: Coarse and Bilateral: Rales
Lung Excursion:: Normal
Abdomen:: Nontender and Soft
Bowel Sounds:: Normal
Extremity Edema:: None: Bilateral:
--- NOTE | 2025-05-03 17:49 | PTCARENOTE ---
Received patient from the airport maintenance laborer after RHC. Unsuccessful attempt right brachial vein, dressing is dry and intact. Femoral vein dressing is dry and intact. Right radial pulse palpable, Right DP obtained with doppler. Patient received IV lasix prior
to transfer and is now on 6L NC, with pulse ox of 94%. Monitoring VS, remains in AF, denies any pain or discomfort, call moreno in reach.
--- NOTE | 2025-05-03 18:01 | PTCARENOTE ---
At 1230 today, RN attempted to wean pt off of 1L O2 NC. Pt maintained SPO2 around 94-95% for about 5 minutes after being taken off of oxygen. RN reassessed SPO2 about 15 minutes later and found SPO2 dropped to 82-83%. Pt placed back onto NC at 6LPM
until SPO2 stabilized at 95%, then placed back on 1LPM, where SPO2 remained at 94-95%. Pt unable to tolerate RA. notified of drop of oxygen level. Pt to remain on 1LPM via NC until further notice.
[2025-05-03 18:48] LABS: Glucose - Point of Care 154 mg/dl (70-99)
[2025-05-03] MEDS: NON-FORMULARY ITEM BOTH EYES (18:48)
[2025-05-03] MEDS: ANTIFUNGAL CLEAR TOPICAL (18:49)
--- NOTE | 2025-05-03 20:46 | PTCARENOTE ---
Received pt @ change of shift. A&Ox3. VSS on 4L NC--NSR w/ BBB on monitor, occasional pacing. Right groin clean, dry, and intact. Right brachial clean, dry, and intact. RN made aware that during transfer to IVU, NovoLog pen was misplaced and dinner
time insulin was not given prior to pt eating. Reached out to Beatrice Harris NP, and she advised RN to not give NovoLog @ this time. Discussed plan of care with pt. Pt verbalizes understanding. Call moreno within reach.
[2025-05-03 22:28] LABS: Glucose - Point of Care 202 mg/dl (70-99)
[2025-05-03] MEDS: NON-FORMULARY ITEM 1 UNIT BOTH EYES (22:39)
[2025-05-03] MEDS: LANTUS 0.14 UNITS SC (22:40)
[2025-05-03] MEDS: REMOVE NICOTINE PATCH 1 PATCH REMOVE (22:40)
[2025-05-03] MEDS: AMBIEN 5 MG PO (23:06)
[2025-05-04] VITALS (9 sets, daily range): BP systolic 93–130; BP diastolic 61–80; BMI 27.4
[2025-05-04 03:34] LABS: Hematocrit 32.7 % (39.0-52.0); Hemoglobin 10.8 g/dL (13.0-18.0); Mean Corp Hgb Conc. 33.0 g/dL (33.0-37.0); Mean Corpuscular Volume 100.0 fL (80.0-94.0); Nucleated Red Blood Cells % 0 % (-); Platelet Count 214 10^3/uL (130-400); Red Cell Dist. Width 18.2 % (11.5-14.5)
[2025-05-04 05:24] LABS: Glucose - Point of Care 173 mg/dl (70-99)
[2025-05-04 05:55] LABS: ALT (SGPT) 17 U/L (0-50); AST (SGOT) 30 U/L (17-59); Albumin 3.2 g/dl (3.5-5.0); Alkaline Phosphatase 144 U/L (38-126); Blood Urea Nitrogen 87 mg/dl (9-20); Calcium 9.5 mg/dl (8.4-10.2); Carbon Dioxide 29 mmol/L (22-30); Chloride 94 mmol/L (98-107); Estimated Creatinine Clearance 18 ml/min; Glucose 165 mg/dl (70-99); Potassium 4.5 mmol/L (3.5-5.1); Sodium 131 mmol/L (135-145); Total Protein 6.3 g/dl (6.3-8.2); eGFR 21.34
--- NOTE | 2025-05-04 07:33 | W.PN.HOSP.TC ---
Addendum entered and electronically signed by Julio Phillips MD 05/04/25 19:30:
Attending Addendum-
I saw and evaluated the patient. I reviewed the resident�s note and agree with findings and plan as documented in the resident�s note. Sub:'Im ready to go home. Lets do whatever it takes!' Pleasant but doenst seem to comprehend severity of illness.
Denies SOB CP palps. Full 12 point ROS reviewed and negative except as documented Exam: Vitals reviewed in chart GEN-NAD heart RRR 11/09 SM @ [facility]USB lungs decreased BS LL, scattered crackles, LE trace edema Neuro AAO x 2
Plan:
#Acute on chronic HFrEF
- IV diuretics restarted after RHC on 05/03 showed significantly elevated filing pressures
- echo 03/12-Global hypokinesis. Left ventricular ejection fraction is 31% (decreased EF from 10/09 35-40), AV-calculated valve area is 0.7 cm2
- Continue to monitor I's and O's and daily weights
- Aggressively replete electrolytes
- cont metoprolol
- may need UF/HD for fluid removal - patient is amenable
#JAY on CKD stage 3b:
- secondary to cardiorenal syndrome with SPRING
- creatinine up to 2.9 baseline 2.0
- diuretics restarted
- seems to have plateaued
- possible HD/UF if diuretic resistant - patient amenable
# Acute hypoxic respiratory failure
- wean o2 for sat 88-92%
# B/L Pleural Effusion RT>LT
- from CHF
- thoracentesis- 04/30-1850mls- transudate
- CTM
#Hyponatremia
- chronic, hypervolemic
- stable
- cont diuresis
# Severe
- 04/28- CT A/P w contrast
- appreciate cards input
- likely for TAVR as inpatient after improved volume status
#IDDM
- controlled
- cont home regimen-Lantus 14 units/NovoLog 3 units with meals
- Continue Accu-Cheks
#A-fib:
- Chronic
- Currently rate controlled
- Continue anticoagulation with Eliquis
# CAD s/p CABG x 4
# Tobacco abuse- nicotine patch, advised to quit probable underlying COPD OP PFT's
# Gout- cont allopurinol
# HLD - cont atorvastatin
# GERD- cont protonix
DVT prophylaxis: Eliquis
CODE STATUS: Full code
Time spent coordinating care, review of plan of care with resident, personally reviewed records in EMR, med rec, consults, notes, labs, radiology, d/w nursing and cards � 53 mins
Original Note:
Today's Communication/Plan
-
- Lasix 80mg IV bid, started 05/03 (s/p acetazolamide 04/28-; lasix 04/27-; metolazone 04/23-)
- Pending likely inpatient TAVR, cards following, appreciate recs
- Continue to monitor I&Os and daily weights
- Continue metoprolol succinate (12.mg daily), midodrine (5mg tid)
- Continue atorvastatin 80mg daily
- Encourage OOB with PT/OT
Assessment / Plan
Assessment / Plan
Robert An is a 79yo M with a pmh notable for CAD (s/p CABG and stents), HFrEF (30 LVEF %), severe , A-fib (on Eliquis, has ICD), carotid artery stenosis (status post left CEA), IDDM, and CKD stage IIIb who presented with increasing lower
extremity edema and abrupt weight gain (20lbs > dry weight), found to have acute on chronic HFrEF & cardiorenal syndrome w pleural effusions, now s/p thoracentesis (04/30), s/p RHC (05/03), following renal fxn & volume status in advance of TAVR.
#Acute on chronic HFrEF (30% EF)
#
#Pleural effusions s/p R-sided thoracentesis, resolving
On admission pt ~20lbs > dry weight & w pulm edema/bilateral pleural effusions on CXR. S/p lasix, metolazone, acetazolamide & R-sided thoracentesis (04/30) of transudative fluid, 1850 cc. Dry weight (72-73kg) - pt weight trended down today
(75.84kg>74.7kg) s/p lasix (05/03). BUN increase (78>81>87). RHC (05/03) demonstrated significantly elevated right and left-sided filling pressures with normal cardiac output. Per cards & renal teams (05/03) - volume up, diurese in IVU while monitoring
renal fxn, with plan for eventual TAVR potentially inpatient. S/p CT TAVR on 04/29.
- Lasix 80mg IV bid, started 05/03 (s/p acetazolamide 04/28-; lasix 04/27-; metolazone 04/23-)
- Pending likely inpatient TAVR, cards following, appreciate recs
- Continue to monitor I&Os and daily weights
- Continue metoprolol succinate (12.mg daily), midodrine (5mg tid)
- Continue atorvastatin 80mg daily
- Encourage OOB with PT/OT
#JAY on CKD stage IIIb
#Cardiorenal syndrome
#Alkalosis
#Hyponatremia
Creatinine plateaued at 2.9 while holding diuresis (05/03). Given elevated pressures on RHC 05/03, aggressive diuresis reinitiated. Per renal, pt may require HD prior to TAVR, pending how Cr, alkalosis, lytes respond to aggressive diuresis. Today, Na
131 (slight up trend), Cr 2.9 (stable), bicarb 29 (downtrend from 31).
- Trend CMP, replete lytes as needed
#Hypothermia, mild
Temp 96.3 this am. Likely small fluctuation, temps had been on lower side. Recent change to IVU, s/p procedures yesterday. Continue to monitor. Other vitals stable (BP has been stable 90s/70s over last few days).
- Warming blanket prn
#Acute hypoxic respiratory failure, resolved
Decreased from 3L to 1L O2 NC on 05/02. Now on 2L O2, satting 93%.
- Continue to monitor O2 sat, try weaning down O2 NC to 1L from 2L
#Chronic conditions
#A-fib: Chronic, currently rate controlled. Continue anticoagulation with Eliquis.
#IDDM: Insulin dosing to match home dose (lantus 14, novolog 3)
#Global
- DVT prophylaxis: Eliquis (holding prior to RHC 05/03)
- CODE STATUS: Full code
- Dispo: Likely to home (lives at home w ), PT/OT recommends home health; dispo soon, pending resolution of JAY & planning home diuresis regimen - likely dispo Wednesday
Anticipated Discharge: > 48 hours
Subjective/Interval History
-
Date of Service: May 04, 2025
Pt slightly confused. Says feels fine, no dyspnea. Agreeable.
Objective Data
-
Labs:
Laboratory Results
05/04/25 05/04/25
03:14 04:39
WBC 7.5
Hgb 10.8 L
Hct 32.7 L
Plt Count 214
Sodium Cancelled 131 L
Potassium Cancelled 4.5
Chloride Cancelled 94 L
Carbon Dioxide Cancelled 29
BUN Cancelled 87 H
Creatinine Cancelled 2.9 H
Glucose Cancelled 165 H
Calcium Cancelled 9.5
Total Bilirubin Cancelled 1.1
AST Cancelled 30
ALT Cancelled 17
Alkaline Phosphatase Cancelled 144 H
Vital Signs:
Vital Signs
Temp Pulse Resp BP Pulse Ox
96.3 F L 87 16 93/73 91
05/04/25 02:56 05/04/25 03:30 05/04/25 02:56 05/04/25 03:01 05/04/25 02:56
I&O
05/03/25 05/04/25 05/05/25
06:59 06:59 06:59
Intake Total 680 / 680 420 / 420
Output Total 50 / 50 250 / 250
Balance 630 / 630 170 / 170
Review of Systems
-
Unable to obtain full review of systems at this time due to: Dementia
History Source: Patient
Constitutional: Reports No Symptoms
EENT: Reports Other (small nose bleed)
Physical Exam
-
General: Other (elderly, frail)
HEENT: Normocephalic, Atraumatic and Anicteric
Respiratory: Clear to Auscultation
Cardiac: Regular Rhythm and Murmur
GI: Nontender and Nondistended
Genito-urinary: Other (condom catheter in place (urine yellow/clear))
Musculoskeletal: No Edema (trace edema, chronic venostatic changes )
Neuro: Awake
Psych: Apparent Dementia
Data Reviewed
-
Total Time Spent with Patient (in minutes): 10
Critical Care Time (in minutes): 35
Labs: Labs Reviewed by me
--- NOTE | 2025-05-04 07:43 | W.PN.CARDCBS ---
Addendum entered and electronically signed by Ivan Iyer MD 05/04/25 10:26:
Attending addendum: Patient seen and examined. PA note reviewed and findings confirmed by me. I met with patient and his daughter. He is a little confused this morning. Not sure of his baseline
We reviewed studies and recent right heart catheterization results at [facility] meeting this am
He remains markedly volume overloaded with PCWP close to 40 mmHg
Diuresis is ongoing but will need to decide if HD / ultrafiltration for volume control for a few days may be the best way to remove volume.
IF we can get him close to euvolemia and IF nephrology feels renal function has returned to baseline THEN we would look toward inpatient TAVR next week w attempts to limit IV contrast exposure as best we can
I gave update to patient. His daughter came in and discussed with her as well.
Original Note:
Today's Communication / Plan
-
Ongoing IV diuresis
Ongoing discussion with structural heart team around timing of TAVR
If no additional procedures scheduled will need resumption of OAC or IV Heparin
Impression / Plan
-
PCP: Dr. Eason
Primary Head Of Sales Promotion: Dr. Sutton
Impression:
Admitted 04/18/2025 with acute HF and JAY
Acute on chronic HFrEF, proBNP 18,500
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
Recent admission for shock, anemia, GI bleed 03/11/2025 until 03/17/2025
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
Severe since 2019
s/p TAVR work-up with MPG 27 at time of cath and not recommended TAVR 01/2023
RHC/LHC 03/15/2025 MPG 28 mmHg, stable CAD, current TAVR eval in process
ICM EF 31%, echo 03/12/2025
History of reduced ejection fraction heart failure with recovered EF
CAD status post CABGx4 in setting of AL in 2001
carotid disease s/p left CEA in 2012
s/p Medtronic single chamber ICD 2017
Persistent Afib
Chronic Eliquis OAC
DM 2
Gout
Smoker, ongoing tobacco use
Previous CV studies:
Echo 08/23/2019: EF 30-35%, global hypokinesis with inferolateral, inferior and basal septal akinesis, mild MR, sev pressure 47/28 mmHg
ECHO 12/03/22: EF 50%, mild LVH, stage III diastolic dysfunction, mild MR, severe with peak/mean gradients 54/28 mmHg, KAELYN 0.8 cm�, trace AR, mild TR, PAP 64 mmHg, mild dilation of aorta measuring 4.0 cm
Echo 10/09/2024: EF 35 to 40%, moderate eccentric MR, severe peak/mean 60/34 mmHg and KAELYN 0.8 cm sq, mild aortic insufficiency, moderate TR with PAP 64 mmHg
Echo 03/12/2025: EF 31%, global hypokinesis, moderate MR, severe peak/mean 41/22 mmHg and KAELYN 0.7 cm sq, mild aortic regurgitation, moderate to severe TR with PAP 72 mmHg
Right heart cath/left heart cath 03/15/2025: RA 14, PA 67/28, PCWP 24, LVEDP 18, CO/CI 5.4/3.0, aortic valve with mean pressure gradient 28 mmHg, KAELYN 0.95 cm�.
LAD 100% occluded midportion, NAVAS to LAD versus diagonal is patent to either mid LAD or diagonal branch with anterograde and retrograde filling well-developed septal collaterals from RCA noted. Ramus occluded at origin distal fills via patent free
radial to ramus graft. Circumflex 100% occluded at origin, RCA occluded with patent SVG to PDA. Graft angiography: NAVAS as above, free radial to ramus widely patent, SVG to OM1 100% occluded, SVG to PDA 50 to 55% stenosis in the mid
[facility] 05/03/2025: Hemodynamics (mmHg):RA (m) : 16, RV (s/d,m) : 68/10, 13, PA (s/d, m) : 67.35, 47, PCWP (m) : 39 with V waves up to 47, PA saturation: 57.9% on 8 L of oxygen via nasal cannula, AO saturation: 88% on 8 L of oxygen via nasal cannula
using noninvasive pulse ox, RA saturation: 60% on 8 L of oxygen via nasal cannula. Cardiac Output : 5.03 L/min by Tejas calculation, Cardiac Index : 2.75 L/min/m-2 by Tejas calculation Systemic vascular resistance: 1208 dsc^(-5), Pulmonary vascular
resistance: 1.59 huang unit
Plan:
-Admitted with acute HF and JAY 04/18/25
-Previous dry weight at last discharge on 03/17/2025 was 151 pounds and patient weighs 164 pounds on 05/04/2025
-Ongoing IV diuresis (held 05/03), has lost 16 lbs this admission. Still wet by hemodynamics on [facility] 05/03. Nephrology has been managing.
-Still requiring 2 to 3 L of oxygen via nasal cannula. Wean as able
-Chronic CKD 4. Creatinine is stable at 2.9 on my review of labs 05/04/2025, Nephrology on board. They are thinking creat unlikely to improve. May benefit from temporary dialysis prior to TAVR.
-Patient undergoing TAVR evaluation. There are ongoing discussions there is a possibility of inpatient TAVR. Ongoing discussions with Structural [facility] Clinic/team and nephrology on timing.
-Medtronic single chamber ICD reprogrammed to VVI 50 on 03/13/25, eventually could consider upgrade to ICD or DELPHI PROGRAMMER-D to help with synchrony
-Persistent PAF Eliquis held for [facility]. Hold for now pending consideration for additional procedures. Will need heparin if he remains off OAC.
HPI 04/19/2025:
History of Present Illness:
Patient came to the ER 04/18/2025 with weight gain and increasing lower extremity edema despite up titration of outpatient diuretics. He is a 79-year-old male with a history of permanent atrial fibrillation, aortic stenosis with previous evaluation
for TAVR with repeat eval currently undergoing( eval in 2016, 2022-mean gradient on [facility] 27 and TAVR not advised), coronary artery disease, status post CABG, recurrent GI bleeds, chronic kidney disease, ICD, anemia, smoker. He had a previous
admission to [facility] 03/11/2025 - 03/17/2025 with near syncope and a fall, shock. Hemoglobin 6.7, creatinin e 2.6 (baseline 2.0) diuretics (Lasix, Metolazone, Spironolactone) and Coreg held most of admission and restarted at lower outpatient dose.
Required midodrine for BP support. Seen by GI and GI bleed thought to be due to AVMs. 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 Eliquis resumed 5 days after endoscopy, at
lower dose 2.5 mg bid. Repeat TAVR evaluation performed with echo and right and left heart cath (mean gradient 28)and patient is being considered for TAVR, structural heart team plans to discuss him at meeting tomorrow.
CT TAVR 04/16/2025 with measurements to be added as separate addendum, had moderate right and small left pleural effusion
Patient was discharged on 03/31/2025 furosemide 40 mg twice daily, midodrine 5 mg 3 times daily, apixaban 2.5 mg twice daily (dose lowered due to CKD) and atorvastatin. Metolazone, spironolactone, and carvedilol were all held.
Weight progressively increasing since last discharge on 03/17/2025, weight at that time 151 pounds, weight on admission 04/18/2025 180 pounds. Outpatient Lasix has been uptitrated over past month to 120 mg twice daily and metolazone restarted at 2.5
mg M-W-, initially with stable creatinine at 1.56 on 04/02/2025, but 2.1 on 04/18/2025 and progressive weight gain.
Progress Note - Head Of Sales Promotion
Subjective
Date of Service: May 04, 2025
Patient seen and examined. Patient sitting on edge of bed and reports he is feeling well. Still on oxygen.
Objective
Labs:
05/04/25 03:14
05/04/25 04:39
Labs
Hgb 10.8 g/dL (13.0-18.0) L 05/04/25 03:14
Hct 32.7 % (39.0-52.0) L 05/04/25 03:14
Plt Count 214 10^3/uL (130-400) 05/04/25 03:14
Sodium 131 mmol/L (135-145) L 05/04/25 04:39
Potassium 4.5 mmol/L (3.5-5.1) 05/04/25 04:39
BUN 87 mg/dl (9-20) H 05/04/25 04:39
Creatinine 2.9 mg/dL (0.7-1.3) H 05/04/25 04:39
Glucose 165 mg/dl (70-99) H 05/04/25 04:39
Vital Signs and I&O:
Vital Signs
Temp Pulse Resp BP Pulse Ox
96.3 F L 87 16 93/73 91
05/04/25 02:56 05/04/25 03:30 05/04/25 02:56 05/04/25 03:01 05/04/25 02:56
Vital Signs
Temp Pulse Resp BP Pulse Ox
96.3 F L 87 16 93/73 91
05/04/25 02:56 05/04/25 03:30 05/04/25 02:56 05/04/25 03:01 05/04/25 02:56
Intake & Output
05/02/25 05/03/25 05/04/25 05/05/25
06:59 06:59 06:59 06:59
Intake Total 180 / 180 680 / 680 420 / 420
Output Total 125 / 125 50 / 50 250 / 250
Balance 55 / 55 630 / 630 170 / 170
Physical Exam
Physical Exam
GEN: No distress, awake, Ox3, elderly frail gentleman
HEENT: supple, anicteric, mmm
LUNGS: Mildly decreased at bases CTA, no wheezes/rales; still on supplemental oxygen via nasal cannula
CV: Irregularly irregular, S1/S2, 3/6 syst LSB murmur, no rub or gallop
ABD: soft, BS+, NT/ND
EXT: +1 bilateral edema, skin changes consistent with chronic venous stasis, positive rubor
NEURO: Gross non-focal
SKIN: No rash, warm, dry, pink
[2025-05-04 08:07] LABS: Glucose - Point of Care 204 mg/dl (70-99)
[2025-05-04] MEDS: NOVOLOG FLEXPEN-MODERATE RESISTANCE 3 UNITS SC ×2 (08:07→12:36)
[2025-05-04] MEDS: NOVOLOG FLEXPEN 3 UNITS SC ×3 (08:07→17:41)
[2025-05-04] MEDS: ANTIFUNGAL CLEAR 1 APPLIC TOPICAL ×3 (08:09→22:53)
[2025-05-04] MEDS: PROTONIX 40 MG PO ×2 (08:16→19:52)
[2025-05-04] MEDS: TOPROL XL 12.5 MG PO (08:16)
[2025-05-04] MEDS: NICODERM TRANSDERMAL 14 MG TRANSDERM (08:16)
[2025-05-04] MEDS: LIPITOR 80 MG PO (08:17)
[2025-05-04] MEDS: LASIX 80 MG IV ×2 (08:17→17:46)
[2025-05-04] MEDS: KCL 20 MEQ PO ×2 (08:17→19:52)
[2025-05-04] MEDS: ZYLOPRIM 100 MG PO ×2 (08:17→19:52)
--- NOTE | 2025-05-04 10:04 | W.PN.NEPH.PH ---
Today's Communication / Plan
-
Maintain IV diuretics
Follow labs through the weekend
Plan on initiating dialysis early next week
Assessment/Plan
-
IMP:
Acute on Chronic HFrEF
Abnormal Troponin - Likely secondary to CHF
JAY on CKD 4baseline cr at 2-follows Dr Yates
Paroxysmal atrial fibrillation
Chronic hyponatremia
COPD without exacerbation
Chronic heart failure reduced EF 30%
CAD/CABG x 4 (2001)
Medtronic single-chamber ICD, 2018
Carotid disease -s/p left CEA 2012.
Essential hypertension
DM 2
Severe aortic stenosis -previously declined TAVR workup.
Hyperlipidemia
Gout
h/o GI bleed 03/2025 , known h/o AVMS
traumatic left-sided rib fractures -due to fall last admit in March
Plan:
Right heart catheterization performed on 05/04/2025 reviewed: Pulmonary capillary wedge pressure 39 cardiac output 5 L
Diamox now off
Creatinine unchanged at 2.9 oliguric
await TAVR planning
no emergent HD needs, but patient grossly volume overloaded
Henceforth discussed case with daughter today and I believe we will need to push forward with dialysis early next week
We need to continue diuresis over the week with current IV Lasix administration
follow BMP
Minimal change in GFR with a creatinine of 2 versus 2.9 as patient has poor kidney function at baseline. Will see how much improvement we could get to optimize him for procedure although I do not expect significant improvement
High risk encounter today with full discussion of dialysis risk benefits and logistics
prognosis is guarded
-
-
Date of Service: May 04, 2025
CC / HPI / ROS
-
Chief Complaint:
Acute kidney injury
History of Present Illness:
JAY/Cr worse to 2.9, BUN worsening up to 87
metabolic alkalosis slightly better
Hemodynamically stable on midodrine
Remains on IV Lasix 80 mg twice daily
Review of Systems:
Nonoliguric
No fevers or chills
No obvious shortness of breath
Awake and oriented
Labs
-
Labs:
WBC 7.5 10^3/uL (4.8-10.8) 05/04/25 03:14
RBC 3.27 10^6/uL (4.70-6.10) L 05/04/25 03:14
Hgb 10.8 g/dL (13.0-18.0) L 05/04/25 03:14
Hct 32.7 % (39.0-52.0) L 05/04/25 03:14
Plt Count 214 10^3/uL (130-400) 05/04/25 03:14
Sodium 131 mmol/L (135-145) L 05/04/25 04:39
Potassium 4.5 mmol/L (3.5-5.1) 05/04/25 04:39
Chloride 94 mmol/L (98-107) L 05/04/25 04:39
Carbon Dioxide 29 mmol/L (22-30) 05/04/25 04:39
BUN 87 mg/dl (9-20) H 05/04/25 04:39
Creatinine 2.9 mg/dL (0.7-1.3) H 05/04/25 04:39
eGFR 21.34 05/04/25 04:39
Glucose 165 mg/dl (70-99) H 05/04/25 04:39
Calcium 9.5 mg/dl (8.4-10.2) 05/04/25 04:39
Phosphorus 4.1 mg/dl (2.5-4.5) 04/21/25 11:18
Tpv-J-Zfkhpuzvokc Pept 05416 pg/ml 04/18/25 18:44
Albumin 3.2 g/dl (3.5-5.0) L 05/04/25 04:39
Physical Exam
-
Vital Signs:
Vital Signs
Temp Pulse Resp BP Pulse Ox
98.0 F 77 16 112/70 95
05/04/25 08:03 05/04/25 09:15 05/04/25 08:03 05/04/25 08:03 05/04/25 09:00
Cardiovascular:: Regular rate and rhythm
Respiratory:: Bilateral: Coarse and Bilateral: Rales
Lung Excursion:: Normal
Abdomen:: Nontender and Soft
Bowel Sounds:: Normal
Extremity Edema:: None: Bilateral:
--- NOTE | 2025-05-04 11:54 | PTCARENOTE ---
Assumed care. Patient is AO x 2-3, asking for a sleeping pill at 9 am this morning, forgetful, occasional slow to response probably related to his SOLOMON, his speech is slightly garbled. He has been using the call moreno for assistance, bed and hanh
alarm are audible. Attempted to wean to room air, POX 86% on room air, 2 liters NC 93%, diminished breath sounds, harsh sometimes productive cough for montaño sputum. Incontinent of urine and bowels with urgency, #[address], and
incontinence care provided. MASD around his rectum and groins, antifungal creams applied. Skin tear LLE, RUE dressing changed & scattered bruises. Did walk this morning to the bathroom, needs assistance, has the tendency to lean backwards with
walking. A-fib BBB in the 60-70's, BP 112/70, call moreno in reach
[2025-05-04 12:37] LABS: Glucose - Point of Care 239 mg/dl (70-99)
[2025-05-04] MEDS: NON-FORMULARY ITEM 1 UNIT BOTH EYES ×2 (13:09→22:53)
[2025-05-04] MEDS: IMODIUM 2 MG PO (13:09)
--- NOTE | 2025-05-04 13:30 | PTCARENOTE ---
bladder scan 19 cc
--- NOTE | 2025-05-04 16:25 | CM ---
Reviewed chart. Mr. An was transferred to IVU, Met with Mr and Mrs. An to review discharge plans. Mr An was asleep. Information obtained from his spouse. She states prior to admission he resides with her and his son in a two story home
with two steps to enter. She states they have a first floor set-up. His son resides on the second floor. She states prior to admission he ambulated with a single oint cane. She states he was current with [facility] for RN and P.T. She is
agreeable to resumption of care with [facility] If possible she would like the same team as before. She states [employer] called her to deliver the home 02.-concentrator. They did not deliver the home 02. He will need to re-test for home 02
closer to discharge. She would like the little portable home 02 that he can carry and not the tanks if possible. He is starting dialysis next week. If it is permanent will need to find an outpatient dialysis center. She is okay with [facility] if needed. She states her son,daughter or herself will transport him to outpatient dialysis. She states he is being work-up for a TAVR. They are hoping the TAVR can be done while he is here. Will need to see his current functional
level to see if he will have any skilled care needs. Medical work-up in progress. The discharge plan is to return home with his spouse and son with [facility] verses some level of inpatient rehab, when medically stable.
--- NOTE | 2025-05-04 16:56 | W.PN.UPDATE ---
Update Note
Progress Note Update
Left voicemail with patient's primary contact Neli An with brief update, that pt will be staying inpatient over the weekend.
[2025-05-04] MEDS: NOVOLOG FLEXPEN-MODERATE RESISTANCE 5 UNITS SC (17:42)
[2025-05-04 17:47] LABS: Glucose - Point of Care 280 mg/dl (70-99)
[2025-05-04 22:30] LABS: Glucose - Point of Care 170 mg/dl (70-99)
[2025-05-04] MEDS: LANTUS 0.14 UNITS SC (22:52)
[2025-05-04] MEDS: REMOVE NICOTINE PATCH 1 PATCH REMOVE (22:53)
[2025-05-04] MEDS: AMBIEN 5 MG PO (23:54)
[2025-05-05] VITALS (10 sets, daily range): BP systolic 99–134; BP diastolic 58–92; PULSE 70; BMI 27.4
[2025-05-05 03:54] LABS: Hematocrit 32.9 % (39.0-52.0); Hemoglobin 10.9 g/dL (13.0-18.0); Mean Corp Hgb Conc. 33.1 g/dL (33.0-37.0); Mean Corpuscular Volume 100.3 fL (80.0-94.0); Nucleated Red Blood Cells % 0 % (-); Platelet Count 197 10^3/uL (130-400); Red Cell Dist. Width 17.6 % (11.5-14.5)
[2025-05-05 04:12] LABS: ALT (SGPT) 16 U/L (0-50); AST (SGOT) 28 U/L (17-59); Albumin 3.0 g/dl (3.5-5.0); Alkaline Phosphatase 136 U/L (38-126); Blood Urea Nitrogen 86 mg/dl (9-20); Calcium 9.2 mg/dl (8.4-10.2); Carbon Dioxide 31 mmol/L (22-30); Chloride 96 mmol/L (98-107); Estimated Creatinine Clearance 17 ml/min; Glucose 148 mg/dl (70-99); Potassium 4.0 mmol/L (3.5-5.1); Sodium 131 mmol/L (135-145); Total Protein 6.2 g/dl (6.3-8.2); eGFR 20.49
--- NOTE | 2025-05-05 04:12 | PTCARENOTE ---
Pt AAOx2 disoriented to time. [place] and forgetful at baseline. Tele monitor shows Afib w/ PVCs, BBBC, and occasionally Vpaced. Pt denies any pain or SOB. Sating 92-95% on 2L of O2, pt coughing up small montaño sputum. CC#25 exchanged, partial bath
completed this AM. Bed alarm active, call moreno within reach.
[2025-05-05] MEDS: NOVOLOG FLEXPEN 3 UNITS SC ×3 (08:10→17:26)
[2025-05-05] MEDS: ANTIFUNGAL CLEAR 1 APPLIC TOPICAL ×3 (08:10→20:46)
[2025-05-05] MEDS: NOVOLOG FLEXPEN-MODERATE RESISTANCE SC (08:10)
[2025-05-05 08:11] LABS: Glucose - Point of Care 148 mg/dl (70-99)
[2025-05-05] MEDS: LASIX 80 MG IV ×2 (08:11→17:04)
[2025-05-05] MEDS: TOPROL XL 12.5 MG PO (08:11)
[2025-05-05] MEDS: KCL 20 MEQ PO ×2 (08:11→20:38)
[2025-05-05] MEDS: ZYLOPRIM 100 MG PO ×2 (08:11→20:38)
[2025-05-05] MEDS: LIPITOR 80 MG PO (08:11)
[2025-05-05] MEDS: PROTONIX 40 MG PO ×2 (08:11→20:38)
[2025-05-05] MEDS: IMODIUM 2 MG PO ×2 (08:29→17:03)
[2025-05-05] MEDS: NICODERM TRANSDERMAL 14 MG TRANSDERM (08:30)
--- NOTE | 2025-05-05 09:01 | PTCARENOTE ---
Assumed care. Patient more alert and awake this morning,forgetful, PLATINUM, wearing glasses, fine hand tremors, slightly garbled speech. Weaned oxygen to 1 liter NC POX 95%,course breath sounds, harsh moist productive cough, montaño sputum. A-Fib, V paced
beats,PVC, couplets, BBB, irregular. Left CW AICD, dependent edema improved +1,legs shinny and pink, Doppler pulses. Condom cath intact, incontinent of bowel and bladder. Imodium given, chronic loose stools per patient. Skin tears b/l arms and RLE
dressing intact. MASD around rectum,barrier ointment applied. Call moreno in reach and bed and chair alarms are audible
--- NOTE | 2025-05-05 09:42 | W.PN.NEPH.PH ---
Today's Communication / Plan
-
Maintain IV Lasix
Plan will be for initiation of dialysis early this week
Assessment/Plan
-
IMP:
Acute on Chronic HFrEF
Abnormal Troponin - Likely secondary to CHF
JAY on CKD 4baseline cr at 2-follows Dr Yates
Paroxysmal atrial fibrillation
Chronic hyponatremia
COPD without exacerbation
Chronic heart failure reduced EF 30%
CAD/CABG x 4 (2001)
Medtronic single-chamber ICD, 2018
Carotid disease -s/p left CEA 2012.
Essential hypertension
DM 2
Severe aortic stenosis -previously declined TAVR workup.
Hyperlipidemia
Gout
h/o GI bleed 03/2025 , known h/o AVMS
traumatic left-sided rib fractures -due to fall last admit in March
Plan:
Right heart catheterization performed on 05/04/2025 reviewed: Pulmonary capillary wedge pressure 39 cardiac output 5 L
Diamox now off
Creatinine at 3 non oliguric
await TAVR planning
no emergent HD needs, but patient grossly volume overloaded
Henceforth discussed case with daughter today and I believe we will need to push forward with dialysis early next week
We need to continue diuresis over the weekend with current IV Lasix administration
follow BMP
Minimal change in GFR with a creatinine of 2 versus 2.9 as patient has poor kidney function at baseline. Will see how much improvement we could get to optimize him for procedure although I do not expect significant improvement
Hyponatremia persist
prognosis is guarded
-
-
Date of Service: May 05, 2025
CC / HPI / ROS
-
Chief Complaint:
Acute kidney injury
History of Present Illness:
JAY/Cr worse to 3, BUN worsening up to 86
metabolic alkalosis persists
Hemodynamically stable on midodrine
Remains on IV Lasix 80 mg twice daily
Review of Systems:
Nonoliguric
No fevers or chills
No obvious shortness of breath
Awake and oriented
Labs
-
Labs:
WBC 6.5 10^3/uL (4.8-10.8) 05/05/25 03:41
RBC 3.28 10^6/uL (4.70-6.10) L 05/05/25 03:41
Hgb 10.9 g/dL (13.0-18.0) L 05/05/25 03:41
Hct 32.9 % (39.0-52.0) L 05/05/25 03:41
Plt Count 197 10^3/uL (130-400) 05/05/25 03:41
Sodium 131 mmol/L (135-145) L 05/05/25 03:41
Potassium 4.0 mmol/L (3.5-5.1) 05/05/25 03:41
Chloride 96 mmol/L (98-107) L 05/05/25 03:41
Carbon Dioxide 31 mmol/L (22-30) H 05/05/25 03:41
BUN 86 mg/dl (9-20) H 05/05/25 03:41
Creatinine 3.0 mg/dL (0.7-1.3) H 05/05/25 03:41
eGFR 20.49 05/05/25 03:41
Glucose 148 mg/dl (70-99) H 05/05/25 03:41
Calcium 9.2 mg/dl (8.4-10.2) 05/05/25 03:41
Phosphorus 4.1 mg/dl (2.5-4.5) 04/21/25 11:18
Lcs-K-Zdjlvhdonrq Pept 39711 pg/ml 04/18/25 18:44
Albumin 3.0 g/dl (3.5-5.0) L 05/05/25 03:41
Physical Exam
-
Vital Signs:
Vital Signs
Temp Pulse Resp BP Pulse Ox
98.2 F 72 13 111/71 94
05/05/25 07:22 05/05/25 09:00 05/05/25 07:22 05/05/25 08:11 05/05/25 08:08
Cardiovascular:: Regular rate and rhythm
Respiratory:: Bilateral: Coarse and Bilateral: Rales
Lung Excursion:: Normal
Abdomen:: Nontender and Soft
Bowel Sounds:: Normal
Extremity Edema:: None: Bilateral:
[2025-05-05 11:46] LABS: Glucose - Point of Care 161 mg/dl (70-99)
[2025-05-05] MEDS: NOVOLOG FLEXPEN-MODERATE RESISTANCE 1 UNITS SC ×2 (11:57→17:26)
[2025-05-05] MEDS: NON-FORMULARY ITEM 1 UNIT BOTH EYES ×2 (11:58→20:45)
--- NOTE | 2025-05-05 12:21 | W.PN.HOSP.TC ---
Addendum entered and electronically signed by Sean Amaral MD 05/06/25 14:09:
Acute on chronic HFrEF exacerbation with EF of 30%.
Continue IV diuretics
Wean oxygen as tolerated
Keep K greater than 4 magnesium greater than 2
Monitor urinary output
Cardiology following
JAY on CKD stage IIIb
Monitor urinary output
Avoid nephrotoxic agents and hypotension
May require hemodialysis in the very near future
Acute hypoxemic respiratory failure
Secondary to HFrEF exacerbation
Wean oxygen as tolerated
Incentive spirometer
SpO2 greater than 92%
Severe
Undergoing TAVR evaluation for this week
Original Note:
Today's Communication/Plan
-
Continue aggressive IV diuresis, monitor IandOs, avoid nephrotoxic agents
Assessment / Plan
Assessment / Plan
Robert An is a 79yo M with a pmh notable for CAD (s/p CABG and stents), HFrEF (30 LVEF %), severe , A-fib (on Eliquis, has ICD), carotid artery stenosis (status post left CEA), IDDM, and CKD stage IIIb who presented with increasing lower
extremity edema and abrupt weight gain (20lbs > dry weight), found to have acute on chronic HFrEF & cardiorenal syndrome w pleural effusions, now s/p thoracentesis (04/30), s/p RHC (05/03), following renal fxn & volume status in advance of TAVR.
#Acute on chronic HFrEF (30% EF)
#Bilateral pleural effusions, R>L
- On Lasix 80mg IV BID
- s/p R-sided thoracentesis (04/30) of transudative fluid, 1850 cc. 2/2 CHF
- Pending likely inpatient TAVR, cards following, appreciate recs
- Continue to monitor I&Os and daily weights
- Continue metoprolol succinate (12.mg daily), midodrine (5mg tid)
- Continue atorvastatin 80mg daily
- Encourage OOB with PT/OT
#JAY on CKD stage IIIb
#Cardiorenal syndrome
#Alkalosis
#Hyponatremia
RHC on 05/03 showed elevated filling pressures.
Continue aggressive diuresis with IV lasix 80mg BID. Response has been slow. Cr 3.0
- Nephro plan for hemodialysis early next week to offload fluid
- Trend CMP, replete lytes as needed
Severe aortic stenosis:
- CT TAVR on 04/28, Cr bump afterward
- Inpatient TAVR likely, pending normalized fluid status, likely after HD. bicarb 29 (downtrend from 31).
#Hypothermia, mild
- Resolved
- Warming blanket prn
#Acute hypoxic respiratory failure, resolved
Decreased from 3L to 1L O2 NC
- Wean as able for )2 sat 88-92%
Chronic conditions:
#A-fib: Chronic, currently rate controlled. Continue anticoagulation with Eliquis.
#IDDM: Insulin dosing to match home dose (lantus 14, novolog 3)
#Global
- DVT prophylaxis: Eliquis
- CODE STATUS: Full code
- Dispo: Likely to home (lives at home w ), evaluate when stab;e
Anticipated Discharge: > 48 hours
Subjective/Interval History
-
Date of Service: May 05, 2025
Feels well, denies SOB, chest pain. Pt is reluctant to get OOB.
Chronic diarrhea noted, imodium given.
Objective Data
-
Labs:
Laboratory Results
05/05/25
03:41
WBC 6.5
Hgb 10.9 L
Hct 32.9 L
Plt Count 197
Sodium 131 L
Potassium 4.0
Chloride 96 L
Carbon Dioxide 31 H
BUN 86 H
Creatinine 3.0 H
Glucose 148 H
Calcium 9.2
Total Bilirubin 0.9
AST 28
ALT 16
Alkaline Phosphatase 136 H
Vital Signs:
Vital Signs
Temp Pulse Resp BP Pulse Ox
97.8 F 81 16 124/92 97
05/05/25 11:42 05/05/25 11:42 05/05/25 11:42 05/05/25 11:42 05/05/25 11:42
I&O
05/04/25 05/05/25 05/06/25
06:59 06:59 06:59
Intake Total 420 / 420 720 / 720
Output Total 250 / 250 500 / 500
Balance 170 / 170 220 / 220
Review of Systems
-
History Source: Patient
Constitutional: Reports Weakness
Respiratory: Denies Trouble Breathing or Pleurisy
Cardiac: Denies Chest Pain
Abdomen/GI: Denies Abdominal Pain, Nausea or Vomiting
Physical Exam
-
General: No Apparent Distress and Comfortable
HEENT: Normocephalic, Atraumatic and Moist Mucous Membranes
Respiratory: Non Labored Respirations and Chest Tubes (reduced breath sounds on right); Negative Wheezes, Rales, Rhonchi or Crackles
Cardiac: Regular Rhythm, S1/S2 and Other; Negative Murmur, Rub or Calf Tenderness
GI: Soft, Nontender, Nondistended and Normal Bowel Sounds
Genito-urinary: Other (incontinent of urine)
Musculoskeletal: No Cyanosis and No Edema
Skin: Warm, Dry and Other (tibial skin thickening)
Neuro: Awake, Alert and Oriented
Psych: Calm
--- NOTE | 2025-05-05 14:23 | CHAP ---
Mr. An was resting - said he's doing well. He welcomed prayer. Emotional and spiritual support provided.
[2025-05-05 17:26] LABS: Glucose - Point of Care 188 mg/dl (70-99)
--- NOTE | 2025-05-05 17:34 | PTCARENOTE ---
Patient out of bed in chair. AO x3, forgetful at times. Condom catheter replaced, #25,urine clear light yellow. Eating and drinking well. Once incontinent of episode of loose brown stool, Imodium given. Chair alarm is audible, call moreno in reach
--- NOTE | 2025-05-05 18:52 | W.PN.CARDCBS ---
Today's Communication / Plan
-
Continue diuresis
Tentatively for initiation of hemodialysis in the near term
In-hospital TAVR during his hospital stay
Impression / Plan
-
PCP: Dr. Eason
Primary Departure Clerk: Dr. Sutton
Impression:
Admitted 04/18/2025 with acute HF and JAY
Acute on chronic HFrEF, proBNP 18,500
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
Recent admission for shock, anemia, GI bleed 03/11/2025 until 03/17/2025
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
Severe since 2018
s/p TAVR work-up with MPG 27 at time of cath and not recommended TAVR 01/2023
RHC/LHC 03/15/2025 MPG 28 mmHg, stable CAD, current TAVR eval in process
ICM EF 31%, echo 03/12/2025
History of reduced ejection fraction heart failure with recovered EF
CAD status post CABGx4 in setting of VT in 2001
carotid disease s/p left CEA in 2012
s/p Medtronic single chamber ICD 2017
Persistent Afib
Chronic Eliquis OAC
DM 2
Gout
Smoker, ongoing tobacco use
Previous CV studies:
Echo 08/23/2019: EF 30-35%, global hypokinesis with inferolateral, inferior and basal septal akinesis, mild MR, sev pressure 47/28 mmHg
ECHO 12/03/22: EF 50%, mild LVH, stage III diastolic dysfunction, mild MR, severe with peak/mean gradients 54/28 mmHg, KAELYN 0.8 cm�, trace AR, mild TR, PAP 64 mmHg, mild dilation of aorta measuring 4.0 cm
Echo 10/09/2024: EF 35 to 40%, moderate eccentric MR, severe peak/mean 60/34 mmHg and KAELYN 0.8 cm sq, mild aortic insufficiency, moderate TR with PAP 64 mmHg
Echo 03/12/2025: EF 31%, global hypokinesis, moderate MR, severe peak/mean 41/22 mmHg and KAELYN 0.7 cm sq, mild aortic regurgitation, moderate to severe TR with PAP 72 mmHg
Right heart cath/left heart cath 03/15/2025: RA 14, PA 67/28, PCWP 24, LVEDP 18, CO/CI 5.4/3.0, aortic valve with mean pressure gradient 28 mmHg, KAELYN 0.95 cm�.
LAD 100% occluded midportion, NAVAS to LAD versus diagonal is patent to either mid LAD or diagonal branch with anterograde and retrograde filling well-developed septal collaterals from RCA noted. Ramus occluded at origin distal fills via patent free
radial to ramus graft. Circumflex 100% occluded at origin, RCA occluded with patent SVG to PDA. Graft angiography: NAVAS as above, free radial to ramus widely patent, SVG to OM1 100% occluded, SVG to PDA 50 to 55% stenosis in the mid
[facility] 05/03/2025: Hemodynamics (mmHg):RA (m) : 16, RV (s/d,m) : 68/10, 13, PA (s/d, m) : 67.35, 47, PCWP (m) : 39 with V waves up to 47, PA saturation: 57.9% on 8 L of oxygen via nasal cannula, AO saturation: 88% on 8 L of oxygen via nasal cannula
using noninvasive pulse ox, RA saturation: 60% on 8 L of oxygen via nasal cannula. Cardiac Output : 5.03 L/min by [place] calculation, Cardiac Index : 2.75 L/min/m-2 by [place] calculation Systemic vascular resistance: 1208 dsc^(-5), Pulmonary vascular
resistance: 1.59 huang unit
Plan:
He appears clinically unchanged at this time.
Atrial fibrillation seems controlled.
Still with acute on chronic heart failure with reduced EF in the setting of moderate mitral regurgitation and severe low gradient aortic stenosis
Optimization of volume status not possible without initiation of hemodialysis which is to begin in the near term
Thereafter likely in hospital TAVR.
Appreciate efforts of nephrology and hospitalist.
HPI 04/19/2025:
History of Present Illness:
Patient came to the ER 04/18/2025 with weight gain and increasing lower extremity edema despite up titration of outpatient diuretics. He is a 79-year-old male with a history of permanent atrial fibrillation, aortic stenosis with previous evaluation
for TAVR with repeat eval currently undergoing( eval in 2016, 2022-mean gradient on LHC 27 and TAVR not advised), coronary artery disease, status post CABG, recurrent GI bleeds, chronic kidney disease, ICD, anemia, smoker. He had a previous
admission to [facility] 03/11/2025 - 03/17/2025 with near syncope and a fall, shock. Hemoglobin 6.7, creatinin e 2.6 (baseline 2.0) diuretics (Lasix, Metolazone, Spironolactone) and Coreg held most of admission and restarted at lower outpatient dose.
Required midodrine for BP support. Seen by GI and GI bleed thought to be due to AVMs. 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 Eliquis resumed 5 days after endoscopy, at
lower dose 2.5 mg bid. Repeat TAVR evaluation performed with echo and right and left heart cath (mean gradient 28)and patient is being considered for TAVR, structural heart team plans to discuss him at meeting tomorrow.
CT TAVR 04/16/2025 with measurements to be added as separate addendum, had moderate right and small left pleural effusion
Patient was discharged on 03/31/2025 furosemide 40 mg twice daily, midodrine 5 mg 3 times daily, apixaban 2.5 mg twice daily (dose lowered due to CKD) and atorvastatin. Metolazone, spironolactone, and carvedilol were all held.
Weight progressively increasing since last discharge on 03/17/2025, weight at that time 151 pounds, weight on admission 04/18/2025 180 pounds. Outpatient Lasix has been uptitrated over past month to 120 mg twice daily and metolazone restarted at 2.5
mg --, initially with stable creatinine at 1.56 on 04/02/2025, but 2.1 on 04/18/2025 and progressive weight gain.
Progress Note - Departure Clerk
Subjective
Date of Service: May 05, 2025:
Current medications: Atorvastatin 80 mg a day, apixaban 5 mg twice daily, midodrine 5 mg 3 times daily, pantoprazole, potassium 20 mill equivalents twice daily, patch, brinzolamide eyedrops, metolazone 5 mg a day, metoprolol ER 12.5 mg daily,
allopurinol 100 mg twice daily, Lantus insulin, furosemide 80 mg IV twice daily
Patient resting comfortably, asleep I did not disturb 107/77, pulse 76, respiratory rate 14, afebrile, sats 92%, weight is 74.6 kg which is unchanged
BUN and creatinine are 86 and 3, hemoglobin is 10.9, sodium is 131, bicarb is 31
Wedge pressure was 39 at the time of right heart catheterization on May 03, right atrial pressure was 16, pulmonary artery systolic pressure was 68, cardiac index was 2.75
Objective
Labs:
05/05/25 03:41
05/05/25 03:41
Labs
Hgb 10.9 g/dL (13.0-18.0) L 05/05/25 03:41
Hct 32.9 % (39.0-52.0) L 05/05/25 03:41
Plt Count 197 10^3/uL (130-400) 05/05/25 03:41
Sodium 131 mmol/L (135-145) L 05/05/25 03:41
Potassium 4.0 mmol/L (3.5-5.1) 05/05/25 03:41
BUN 86 mg/dl (9-20) H 05/05/25 03:41
Creatinine 3.0 mg/dL (0.7-1.3) H 05/05/25 03:41
Glucose 148 mg/dl (70-99) H 05/05/25 03:41
Vital Signs and I&O:
Vital Signs
Temp Pulse Resp BP Pulse Ox
36.3 C 76 14 107/77 92
05/05/25 15:16 05/05/25 17:00 05/05/25 15:16 05/05/25 16:46 05/05/25 15:16
Vital Signs
Temp Pulse Resp BP Pulse Ox
36.3 C 76 14 107/77 92
05/05/25 15:16 05/05/25 17:00 05/05/25 15:16 05/05/25 16:46 05/05/25 15:16
Intake & Output
05/03/25 05/04/25 05/05/25 05/06/25
07:59 07:59 07:59 07:59
Intake Total 680 / 680 420 / 420 720 / 720 960 / 960
Output Total 50 / 50 250 / 250 500 / 500 550 / 550
Balance 630 / 630 170 / 170 220 / 220 410 / 410
Physical Exam
Physical Exam
Patient not disturbed, appeared comfortable, was asleep
[2025-05-05] MEDS: XANAX 0.25 MG PO (20:38)
[2025-05-05 20:45] LABS: Glucose - Point of Care 278 mg/dl (70-99)
[2025-05-05] MEDS: LANTUS 0.14 UNITS SC (20:45)
[2025-05-05] MEDS: REMOVE NICOTINE PATCH 1 PATCH REMOVE (23:35)
[2025-05-05] MEDS: AMBIEN 5 MG PO (23:35)
--- NOTE | 2025-05-05 23:53 | PTCARENOTE ---
Assumed care of the pt @ 1900. Pt is AAOx2-3 anxious A Fib on the monitor VSS denies cp. + inc loose bm. external cath draining yellow urine. Call moreno within reach.
[2025-05-06] VITALS (7 sets, daily range): BP systolic 113–130; BP diastolic 68–88; BMI 27.7
[2025-05-06 05:14] LABS: Hematocrit 31.9 % (39.0-52.0); Hemoglobin 10.5 g/dL (13.0-18.0); Mean Corp Hgb Conc. 32.9 g/dL (33.0-37.0); Mean Corpuscular Volume 100.6 fL (80.0-94.0); Platelet Count 192 10^3/uL (130-400); Red Cell Dist. Width 17.0 % (11.5-14.5)
[2025-05-06 05:34] LABS: Blood Urea Nitrogen 82 mg/dl (9-20); Calcium 8.8 mg/dl (8.4-10.2); Carbon Dioxide 28 mmol/L (22-30); Chloride 95 mmol/L (98-107); Estimated Creatinine Clearance 19 ml/min; Glucose 132 mg/dl (70-99); Magnesium 1.8 mg/dl (1.6-2.3); Potassium 3.9 mmol/L (3.5-5.1); Sodium 130 mmol/L (135-145); eGFR 22.25
[2025-05-06 08:23] LABS: Glucose - Point of Care 116 mg/dl (70-99)
[2025-05-06] MEDS: NOVOLOG FLEXPEN 3 UNITS SC ×3 (09:40→17:04)
[2025-05-06] MEDS: KCL 20 MEQ PO ×2 (09:41→19:21)
[2025-05-06] MEDS: LIPITOR 80 MG PO (09:41)
[2025-05-06] MEDS: LASIX 80 MG IV ×2 (09:41→15:47)
[2025-05-06] MEDS: NOVOLOG FLEXPEN-MODERATE RESISTANCE SC (09:41)
[2025-05-06] MEDS: ANTIFUNGAL CLEAR 1 APPLIC TOPICAL ×3 (09:41→21:37)
[2025-05-06] MEDS: TOPROL XL 12.5 MG PO (09:42)
[2025-05-06] MEDS: NICODERM TRANSDERMAL 14 MG TRANSDERM (09:42)
[2025-05-06] MEDS: ZYLOPRIM 100 MG PO ×2 (09:42→19:21)
[2025-05-06] MEDS: PROTONIX 40 MG PO ×2 (09:42→19:21)
--- NOTE | 2025-05-06 10:10 | W.PN.NEPH.PH ---
Today's Communication / Plan
-
Maintain IV diuresis
Follow BMP
Plan to initiate dialysis on wednesday
Assessment/Plan
-
IMP:
Acute on Chronic HFrEF
Abnormal Troponin - Likely secondary to CHF
JAY on CKD 4baseline cr at 2-follows Dr Yates
Paroxysmal atrial fibrillation
Chronic hyponatremia
COPD without exacerbation
Chronic heart failure reduced EF 30%
CAD/CABG x 4 (2001)
Medtronic single-chamber ICD, 2018
Carotid disease -s/p left CEA 2012.
Essential hypertension
DM 2
Severe aortic stenosis -previously declined TAVR workup.
Hyperlipidemia
Gout
h/o GI bleed 03/2025 , known h/o AVMS
traumatic left-sided rib fractures -due to fall last admit in March
Plan:
Right heart catheterization performed on 05/04/2025 reviewed: Pulmonary capillary wedge pressure 39 cardiac output 5 L
Diamox now off
Creatinine at 2.8 non oliguric `1100cc
await TAVR planning
no emergent HD needs, but patient grossly volume overloaded by RHC
Henceforth discussed case with daughter today and I believe we will need to push forward with dialysis and have catheter placed on Wednesday with subsequent dialysis
We need to continue diuresis over the weekend with current IV Lasix administration
follow BMP
Minimal change in GFR with a creatinine of 2 versus 2.9 as patient has poor kidney function at baseline. Will see how much improvement we could get to optimize him for procedure although I do not expect significant improvement
Hyponatremia persist
prognosis is guarded
-
-
Date of Service: May 06, 2025
CC / HPI / ROS
-
Chief Complaint:
Acute kidney injury
History of Present Illness:
JAY/Cr worse to 2.8, BUN 80s
metabolic alkalosis improved
Hemodynamically stable on midodrine
Remains on IV Lasix 80 mg twice daily
Review of Systems:
Nonoliguric
No fevers or chills
No obvious shortness of breath
Awake and oriented
Weight up
Labs
-
Labs:
WBC 6.6 10^3/uL (4.8-10.8) 05/06/25 04:37
RBC 3.17 10^6/uL (4.70-6.10) L 05/06/25 04:37
Hgb 10.5 g/dL (13.0-18.0) L 05/06/25 04:37
Hct 31.9 % (39.0-52.0) L 05/06/25 04:37
Plt Count 192 10^3/uL (130-400) 05/06/25 04:37
Sodium 130 mmol/L (135-145) L 05/06/25 04:37
Potassium 3.9 mmol/L (3.5-5.1) 05/06/25 04:37
Chloride 95 mmol/L (98-107) L 05/06/25 04:37
Carbon Dioxide 28 mmol/L (22-30) 05/06/25 04:37
BUN 82 mg/dl (9-20) H 05/06/25 04:37
Creatinine 2.8 mg/dL (0.7-1.3) H 05/06/25 04:37
eGFR 22.25 05/06/25 04:37
Glucose 132 mg/dl (70-99) H 05/06/25 04:37
Calcium 8.8 mg/dl (8.4-10.2) 05/06/25 04:37
Phosphorus 4.1 mg/dl (2.5-4.5) 04/21/25 11:18
Bcr-S-Kvtplbhbrpe Pept 41027 pg/ml 04/18/25 18:44
Albumin 3.0 g/dl (3.5-5.0) L 05/05/25 03:41
Physical Exam
-
Vital Signs:
Vital Signs
Temp Pulse Resp BP Pulse Ox
97.9 F 73 20 119/76 94
05/06/25 04:29 05/06/25 09:32 05/06/25 08:25 05/06/25 09:32 05/06/25 08:25
Cardiovascular:: Regular rate and rhythm
Respiratory:: Bilateral: Coarse and Bilateral: Rales
Lung Excursion:: Normal
Abdomen:: Nontender and Soft
Bowel Sounds:: Normal
Extremity Edema:: None: Bilateral:
--- NOTE | 2025-05-06 11:10 | W.PN.HOSP.TC ---
Addendum entered and electronically signed by Saen Amaral MD 05/06/25 14:10:
Acute on chronic HFrEF exacerbation with EF of 30%.
Continue IV diuretics
Wean oxygen as tolerated
Keep K greater than 4 magnesium greater than 2
Monitor urinary output
Cardiology following
JAY on CKD stage IIIb
Monitor urinary output
Avoid nephrotoxic agents and hypotension
May require hemodialysis in the very near future
Acute hypoxemic respiratory failure
Secondary to HFrEF exacerbation
Wean oxygen as tolerated
Incentive spirometer
SpO2 greater than 92%
Severe
Undergoing TAVR evaluation for this week
Original Note:
Today's Communication/Plan
-
Continue IV diuresis pending HD during the week
Assessment / Plan
Assessment / Plan
Robert An is a 79yo M with a pmh notable for CAD (s/p CABG and stents), HFrEF (30 LVEF %), severe , A-fib (on Eliquis, has ICD), carotid artery stenosis (status post left CEA), IDDM, and CKD stage IIIb who presented with increasing lower
extremity edema and abrupt weight gain (20lbs > dry weight), found to have acute on chronic HFrEF & cardiorenal syndrome w pleural effusions, now s/p thoracentesis (04/30), s/p RHC (05/03), following renal fxn & volume status in advance of TAVR.
#Acute on chronic HFrEF (30% EF)
#Bilateral pleural effusions, R>L
- On Lasix 80mg IV BID
- s/p R-sided thoracentesis (04/30) of transudative fluid, 1850 cc. 2/2 CHF
- Pending likely inpatient TAVR, cards following, appreciate recs
- Continue to monitor I&Os and daily weights
- Continue metoprolol succinate (12.mg daily), midodrine (5mg tid)
- Monitor respiratory status changes, repeat thoracentesis if necessary
- Encourage OOB with PT/OT
#JAY on CKD stage IIIb
#Cardiorenal syndrome
#Alkalosis
#Hyponatremia
RHC on 05/03 showed elevated filling pressures.
Continue aggressive diuresis with IV lasix 80mg BID for now, although no significant response so far. Cr 2.8
- Nephro plan for hemodialysis early next week to offload fluid
- Trend CMP, replete lytes as needed
Severe aortic stenosis:
- CT TAVR on 04/28, Cr bump afterward
- Inpatient TAVR likely, pending normalized fluid status, likely after HD. .
#Hypothermia, mild
- Resolved
- Warm blanket prn
#Acute hypoxic respiratory failure, resolved
Now on 2L O2 NC
- Wean as able for )2 sat 88-92%
Chronic conditions:
#A-fib: Chronic, currently rate controlled. Continue anticoagulation with Eliquis.
#IDDM: Insulin dosing to match home dose (lantus 14, novolog 3)
#Global
- DVT prophylaxis: Eliquis
- CODE STATUS: Full code
- Dispo: Likely to home (lives at home w ), evaluate when stable
Anticipated Discharge: > 48 hours
Subjective/Interval History
-
Date of Service: May 06, 2025
Objective Data
-
Labs:
Laboratory Results
05/06/25
04:37
WBC 6.6
Hgb 10.5 L
Hct 31.9 L
Plt Count 192
Sodium 130 L
Potassium 3.9
Chloride 95 L
Carbon Dioxide 28
BUN 82 H
Creatinine 2.8 H
Glucose 132 H
Calcium 8.8
Vital Signs:
Vital Signs
Temp Pulse Resp BP Pulse Ox
97.9 F 70 20 119/76 94
05/06/25 04:29 05/06/25 10:00 05/06/25 08:25 05/06/25 09:32 05/06/25 08:25
I&O
05/05/25 05/06/25 05/07/25
06:59 06:59 06:59
Intake Total 720 / 720 1200 / 1200
Output Total 500 / 500 1100 / 1100
Balance 220 / 220 100 / 100
Review of Systems
-
History Source: Patient
Constitutional: Reports No Symptoms
Respiratory: Denies Trouble Breathing or Pleurisy
Cardiac: Denies Chest Pain or Palpitations
Abdomen/GI: Denies Abdominal Pain, Nausea or Vomiting
Physical Exam
-
General: No Apparent Distress and Comfortable (lying in bed)
HEENT: Normocephalic, Atraumatic and Oxygen (2L NC)
Respiratory: Non Labored Respirations and Decreased Breath Sounds (R mid and lower lung miller); Negative Wheezes, Rales, Rhonchi or Crackles
Cardiac: Regular Rhythm and S1/S2; Negative Murmur, Rub or Calf Tenderness
GI: Soft, Nontender, Nondistended and Normal Bowel Sounds
Musculoskeletal: No Clubbing, No Cyanosis and No Edema
Skin: Warm, Dry and Other (violaceous disoloration of bilateral legs)
Neuro: Awake, Alert and Oriented
Psych: Calm
[2025-05-06] MEDS: NON-FORMULARY ITEM 1 UNIT BOTH EYES ×2 (12:05→21:38)
[2025-05-06] MEDS: NOVOLOG FLEXPEN-MODERATE RESISTANCE 1 UNITS SC (12:05)
[2025-05-06 12:06] LABS: Glucose - Point of Care 190 mg/dl (70-99)
[2025-05-06 12:27] LABS: Glucose - Point of Care 233 mg/dl (70-99)
--- NOTE | 2025-05-06 15:06 | W.PN.CARDCBS ---
Today's Communication / Plan
-
Consider thoracentesis on Wednesday
Tentatively dialysis Wednesday
Planning for transcatheter aortic valve
Impression / Plan
-
PCP: Dr. Eason
Primary Heavy Equipment Diesel Mechanic: Dr. Sutton
Impression:
Admitted 04/18/2025 with acute HF and JAY
Acute on chronic HFrEF, proBNP 18,500
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
Recent admission for shock, anemia, GI bleed 03/11/2025 until 03/17/2025
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
Severe since 2018
s/p TAVR work-up with MPG 27 at time of cath and not recommended TAVR 01/2023
RHC/LHC 03/15/2025 MPG 28 mmHg, stable CAD, current TAVR eval in process
ICM EF 31%, echo 03/12/2025
History of reduced ejection fraction heart failure with recovered EF
CAD status post CABGx4 in setting of [place] in 2001
carotid disease s/p left CEA in 2012
s/p Medtronic single chamber ICD 2017
Persistent Afib
Chronic Eliquis OAC
DM 2
Gout
Smoker, ongoing tobacco use
Previous CV studies:
Echo 08/23/2019: EF 30-35%, global hypokinesis with inferolateral, inferior and basal septal akinesis, mild MR, sev pressure 47/28 mmHg
ECHO 12/03/22: EF 50%, mild LVH, stage III diastolic dysfunction, mild MR, severe with peak/mean gradients 54/28 mmHg, KAELYN 0.8 cm�, trace AR, mild TR, PAP 64 mmHg, mild dilation of aorta measuring 4.0 cm
Echo 10/09/2024: EF 35 to 40%, moderate eccentric MR, severe peak/mean 60/34 mmHg and KAELYN 0.8 cm sq, mild aortic insufficiency, moderate TR with PAP 64 mmHg
Echo 03/12/2025: EF 31%, global hypokinesis, moderate MR, severe peak/mean 41/22 mmHg and KAELYN 0.7 cm sq, mild aortic regurgitation, moderate to severe TR with PAP 72 mmHg
Right heart cath/left heart cath 03/15/2025: RA 14, PA 67/28, PCWP 24, LVEDP 18, CO/CI 5.4/3.0, aortic valve with mean pressure gradient 28 mmHg, KAELYN 0.95 cm�.
LAD 100% occluded midportion, NAVAS to LAD versus diagonal is patent to either mid LAD or diagonal branch with anterograde and retrograde filling well-developed septal collaterals from RCA noted. Ramus occluded at origin distal fills via patent free
radial to ramus graft. Circumflex 100% occluded at origin, RCA occluded with patent SVG to PDA. Graft angiography: NAVAS as above, free radial to ramus widely patent, SVG to OM1 100% occluded, SVG to PDA 50 to 55% stenosis in the mid
[facility] 05/03/2025: Hemodynamics (mmHg):RA (m) : 16, RV (s/d,m) : 68/10, 13, PA (s/d, m) : 67.35, 47, PCWP (m) : 39 with V waves up to 47, PA saturation: 57.9% on 8 L of oxygen via nasal cannula, AO saturation: 88% on 8 L of oxygen via nasal cannula
using noninvasive pulse ox, RA saturation: 60% on 8 L of oxygen via nasal cannula. Cardiac Output : 5.03 L/min by Tejas calculation, Cardiac Index : 2.75 L/min/m-2 by Tejas calculation Systemic vascular resistance: 1208 dsc^(-5), Pulmonary vascular
resistance: 1.59 huang unit
Plan:
Clinically he is largely unchanged.
Continue current regimen.
By chest x-ray today, his right pleural effusion has recurred. Probably should undergo repeat thoracentesis, tentatively on Wednesday.
Plan at this time is to initiate hemodialysis on Wednesday.
Thereafter, will evaluate timing of TAVR.
He remains in what is presumably atrial fibrillation, possibly with a competing junctional pacemaker. Left axis, intraventricular conduction delay. Inferior MD not excluded.
No new cardiac recommendations at this time beyond potentially thoracentesis.
HPI 04/19/2025:
History of Present Illness:
Patient came to the ER 04/18/2025 with weight gain and increasing lower extremity edema despite up titration of outpatient diuretics. He is a 79-year-old male with a history of permanent atrial fibrillation, aortic stenosis with previous evaluation
for TAVR with repeat eval currently undergoing( eval in 2016, 2022-mean gradient on C 27 and TAVR not advised), coronary artery disease, status post CABG, recurrent GI bleeds, chronic kidney disease, ICD, anemia, smoker. He had a previous
admission to [facility] 03/11/2025 - 03/17/2025 with near syncope and a fall, shock. Hemoglobin 6.7, creatinin e 2.6 (baseline 2.0) diuretics (Lasix, Metolazone, Spironolactone) and Coreg held most of admission and restarted at lower outpatient dose.
Required midodrine for BP support. Seen by GI and GI bleed thought to be due to AVMs. 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 Eliquis resumed 5 days after endoscopy, at
lower dose 2.5 mg bid. Repeat TAVR evaluation performed with echo and right and left heart cath (mean gradient 28)and patient is being considered for TAVR, structural heart team plans to discuss him at meeting tomorrow.
CT TAVR 04/16/2025 with measurements to be added as separate addendum, had moderate right and small left pleural effusion
Patient was discharged on 03/31/2025 furosemide 40 mg twice daily, midodrine 5 mg 3 times daily, apixaban 2.5 mg twice daily (dose lowered due to CKD) and atorvastatin. Metolazone, spironolactone, and carvedilol were all held.
Weight progressively increasing since last discharge on 03/17/2025, weight at that time 151 pounds, weight on admission 04/18/2025 180 pounds. Outpatient Lasix has been uptitrated over past month to 120 mg twice daily and metolazone restarted at 2.5
mg -, initially with stable creatinine at 1.56 on 04/02/2025, but 2.1 on 04/18/2025 and progressive weight gain.
Progress Note - Heavy Equipment Diesel Mechanic
Subjective
Date of Service: May 06, 2025: Atorvastatin 80 mg a day, apixaban 5 mg twice daily, midodrine 5 mg 3 times daily, pantoprazole 40 mg twice daily, potassium 20 mill equivalents twice daily, nicotine patch, enzalutamide eyedrops, metolazone 5 mg a
day, metoprolol ER 12.5 mg daily, allopurinol 100 mg twice daily, Lantus insulin, furosemide 80 IV twice daily
He states he feels well. 130/78, temp is 35.9, pulse 70, weight is 75.4 kg, up 0.8 kg, patient states he feels well, lungs are relatively clear, JVD around 10, aortic stenosis murmur, trace edema, ecchymosis, chronically ill-appearing
Hemoglobin is 10.5, sodium is 130, potassium is 3.9, BUN is 82, creatinine is 2.8, had been 3.0
Chest x-ray today, moderate to large right pleural effusion, small left pleural effusion, cardiomegaly
Objective
Labs:
05/06/25 04:37
05/06/25 04:37
Labs
Hgb 10.5 g/dL (13.0-18.0) L 05/06/25 04:37
Hct 31.9 % (39.0-52.0) L 05/06/25 04:37
Plt Count 192 10^3/uL (130-400) 05/06/25 04:37
Sodium 130 mmol/L (135-145) L 05/06/25 04:37
Potassium 3.9 mmol/L (3.5-5.1) 05/06/25 04:37
BUN 82 mg/dl (9-20) H 05/06/25 04:37
Creatinine 2.8 mg/dL (0.7-1.3) H 05/06/25 04:37
Glucose 132 mg/dl (70-99) H 05/06/25 04:37
Vital Signs and I&O:
Vital Signs
Temp Pulse Resp BP Pulse Ox
35.9 C L 70 22 130/78 97
05/06/25 11:37 05/06/25 11:38 05/06/25 11:37 05/06/25 11:38 05/06/25 11:38
Vital Signs
Temp Pulse Resp BP Pulse Ox
35.9 C L 70 22 130/78 97
05/06/25 11:37 05/06/25 11:38 05/06/25 11:37 05/06/25 11:38 05/06/25 11:38
Intake & Output
05/04/25 05/05/25 05/06/25 05/07/25
07:59 07:59 07:59 07:59
Intake Total 420 / 420 720 / 720 1200 / 1200
Output Total 250 / 250 500 / 500 1100 / 1100
Balance 170 / 170 220 / 220 100 / 100
[2025-05-06] MEDS: NOVOLOG FLEXPEN-MODERATE RESISTANCE 3 UNITS SC (17:05)
[2025-05-06 17:13] LABS: Glucose - Point of Care 240 mg/dl (70-99)
[2025-05-06] MEDS: XANAX 0.25 MG PO (19:21)
[2025-05-06] MEDS: LANTUS 0.14 UNITS SC (21:37)
[2025-05-06 21:38] LABS: Glucose - Point of Care 240 mg/dl (70-99)
[2025-05-06] MEDS: AMBIEN 5 MG PO (21:38)
[2025-05-06] MEDS: REMOVE NICOTINE PATCH 1 PATCH REMOVE (21:39)
--- NOTE | 2025-05-06 21:55 | PTCARENOTE ---
Assumed care of the pt @ 1900. Pt is AAOx 2 + [place] denies pain but requesting Xanax to help him relax. A fib on the monitor VSS. On 2LNC with humidity sats 93%. Pt appears dyspneic at times denies SOB. Lungs coarse and diminished in rt base NPC. Plan
of care discussed with pt. Call moreno within reach.
[2025-05-07] VITALS (7 sets, daily range): BP systolic 108–134; BP diastolic 59–77; BMI 27.5
--- NOTE | 2025-05-07 01:47 | PTCARENOTE ---
Pt's CM alarmed Asystole found pt resting in bed. A fib on the monitor 70's BP 129/77 94% on 2 LPM NC. Sherrill Phelps notified. No new orders at this time.
[2025-05-07 03:31] LABS: Hematocrit 32.1 % (39.0-52.0); Hemoglobin 10.7 g/dL (13.0-18.0); Mean Corp Hgb Conc. 33.3 g/dL (33.0-37.0); Mean Corpuscular Volume 99.7 fL (80.0-94.0); Platelet Count 193 10^3/uL (130-400); Red Cell Dist. Width 17.8 % (11.5-14.5)
[2025-05-07 03:55] LABS: Blood Urea Nitrogen 85 mg/dl (9-20); Calcium 9.2 mg/dl (8.4-10.2); Carbon Dioxide 28 mmol/L (22-30); Chloride 97 mmol/L (98-107); Estimated Creatinine Clearance 19 ml/min; Glucose 144 mg/dl (70-99); LDH 185 U/L (120-246); Potassium 4.1 mmol/L (3.5-5.1); Sodium 131 mmol/L (135-145); eGFR 22.25
--- NOTE | 2025-05-07 07:30 | W.PN.HOSP.TC ---
Today's Communication/Plan
-
- HD Wednesday
- therapeutic thora Wednesday
- inpatient TAVR later this week
- continue diuresis & trending Cr/fluid status
- ok to restart eliquis today
Assessment / Plan
Assessment / Plan
Robert An is a 79yo M with a pmh notable for CAD (s/p CABG and stents), HFrEF (30 LVEF %), severe , A-fib (on Eliquis, has ICD), carotid artery stenosis (status post left CEA), IDDM, and CKD stage IIIb who presented with increasing lower
extremity edema and abrupt weight gain (20lbs > dry weight), found to have acute on chronic HFrEF & cardiorenal syndrome w pleural effusions, now s/p thoracentesis (04/30), s/p RHC (05/03), following renal fxn & volume status in advance of TAVR.
#Acute on chronic HFrEF (30% EF)
#Severe low gradient aortic stenosis
#Moderate mitral regurg
S/p CT TAVR on 04/28.
- Continue Lasix 80mg IV BID (05/03- ; s/p acetazolamide 04/28-; lasix 04/27-; metolazone )
- Inpatient TAVR, pending HD - renal & cards following, appreciate recs
- Continue metoprolol succinate (12.mg daily), midodrine (5mg tid)
- Continue to monitor I&Os and daily weights
- Encourage OOB with PT/OT
#Acute hypoxic respiratory failure
#Bilateral pleural effusions, R>L
Stable satting 93% on 2L O2 NC today. S/p R-sided thoracentesis (04/30) of transudative fluid, 1850 cc, 2/2 CHF.
- Plan to wean O2 NC as tolerated, maintain O2 sat>92%
- Repeat thora if necessary, continue to monitor respiratory status - per cards, consider thoracentesis on Wednesday (05/08)
- Incentive spirometry
#JAY on CKD stage IIIb
#Cardiorenal syndrome
#Alkalosis
#Hyponatremia
RHC on 05/03 showed elevated filling pressures across all chambers w normal CO. Cr stable at 2.8 today, range 2.9-3.0 since 05/01. Hyponatremia stable (131). Bicarb normalized (28).
- Continue IV lasix 80mg BID
- Per renal, plan for HD this week with catheter placement on Wednesday (05/08)
- Trend CMP, replete lytes as needed
Chronic conditions:
#A-fib: Chronic, currently rate controlled. Continue anticoagulation with Eliquis.
#IDDM: Insulin dosing to match home dose (lantus 14, novolog 3)
#Global
- DVT prophylaxis: Eliquis (restart today, okay before thora per IR)
- CODE STATUS: Full code
- Dispo: Likely to home (lives at home w ), evaluate when stable
Anticipated Discharge: > 48 hours
Subjective/Interval History
-
Date of Service: May 07, 2025
Somnolent. Per RN, was up & out of bed earlier in the am. Condom cath in place for incontinence overnight. Pt denies any SOB, pain.
Objective Data
-
Labs:
Laboratory Results
05/07/25
02:57
WBC 5.9
Hgb 10.7 L
Hct 32.1 L
Plt Count 193
Sodium 131 L
Potassium 4.1
Chloride 97 L
Carbon Dioxide 28
BUN 85 H
Creatinine 2.8 H
Glucose 144 H
Calcium 9.2
Vital Signs:
Vital Signs
Temp Pulse Resp BP Pulse Ox
97.5 F 70 18 108/59 93
05/07/25 06:46 05/07/25 02:51 05/07/25 06:46 05/07/25 02:49 05/07/25 06:46
I&O
05/06/25 05/07/25 05/08/25
06:59 06:59 06:59
Intake Total 1200 / 1200 920 / 920 120 / 120
Output Total 1100 / 1100 700 / 700 300 / 300
Balance 100 / 100 220 / 220 -180 / -180
Physical Exam
-
General: Other (sleeping)
HEENT: Normocephalic, Atraumatic and Anicteric
Respiratory: Clear to Auscultation, Non Labored Respirations and Other (NC in place)
Cardiac: Regular Rhythm and Murmur
GI: Soft and Nondistended
Genito-urinary: Other (condom cath w minimal clear/light yellow urine)
Musculoskeletal: No Edema (trace MELVIN; chronic venostatic skin changes bilateral LE)
Neuro: Awake and Alert (sleepy )
Data Reviewed
-
Total Time Spent with Patient (in minutes): 10
Critical Care Time (in minutes): 35
Labs: Labs Reviewed by me
[2025-05-07 08:39] LABS: Glucose - Point of Care 124 mg/dl (70-99)
[2025-05-07] MEDS: NOVOLOG FLEXPEN-MODERATE RESISTANCE SC (09:13)
[2025-05-07] MEDS: NICODERM TRANSDERMAL 14 MG TRANSDERM (09:14)
[2025-05-07] MEDS: NOVOLOG FLEXPEN 3 UNITS SC ×3 (09:14→17:34)
[2025-05-07] MEDS: KCL 20 MEQ PO ×2 (09:15→21:54)
[2025-05-07] MEDS: TOPROL XL 12.5 MG PO (09:15)
[2025-05-07] MEDS: ZYLOPRIM 100 MG PO ×2 (09:15→21:54)
[2025-05-07] MEDS: ANTIFUNGAL CLEAR 1 APPLIC TOPICAL ×3 (09:15→21:55)
[2025-05-07] MEDS: LIPITOR 80 MG PO (09:15)
[2025-05-07] MEDS: PROTONIX 40 MG PO ×2 (09:15→21:54)
[2025-05-07] MEDS: LASIX 80 MG IV ×2 (09:23→16:33)
--- NOTE | 2025-05-07 10:36 | W.PN.CARDCBS ---
Today's Communication / Plan
-
Consider repeat thoracentesis Wednesday
Tentative dialysis
TAVR workup
Impression / Plan
-
PCP: Dr. Eason
Primary Manager Test: Dr. Sutton
Impression:
Admitted 04/18/2025 with acute HF and JAY
Acute on chronic HFrEF, proBNP 18,500
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
Recent admission for shock, anemia, GI bleed 03/11/2025 until 03/17/2025
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
Severe since 2018
s/p TAVR work-up with MPG 27 at time of cath and not recommended TAVR 01/2023
RHC/LHC 03/15/2025 MPG 28 mmHg, stable CAD, current TAVR eval in process
ICM EF 31%, echo 03/12/2025
History of reduced ejection fraction heart failure with recovered EF
CAD status post CABGx4 in setting of [place] in 2001
carotid disease s/p left CEA in 2012
s/p Medtronic single chamber ICD 2017
Persistent Afib
Chronic Eliquis OAC
DM 2
Gout
Smoker, ongoing tobacco use
Previous CV studies:
Echo 08/23/2019: EF 30-35%, global hypokinesis with inferolateral, inferior and basal septal akinesis, mild MR, sev pressure 47/28 mmHg
ECHO 12/03/22: EF 50%, mild LVH, stage III diastolic dysfunction, mild MR, severe with peak/mean gradients 54/28 mmHg, KAELYN 0.8 cm�, trace AR, mild TR, PAP 64 mmHg, mild dilation of aorta measuring 4.0 cm
Echo 10/09/2024: EF 35 to 40%, moderate eccentric MR, severe peak/mean 60/34 mmHg and KAELYN 0.8 cm sq, mild aortic insufficiency, moderate TR with PAP 64 mmHg
Echo 03/12/2025: EF 31%, global hypokinesis, moderate MR, severe peak/mean 41/22 mmHg and KAELYN 0.7 cm sq, mild aortic regurgitation, moderate to severe TR with PAP 72 mmHg
Right heart cath/left heart cath 03/15/2025: RA 14, PA 67/28, PCWP 24, LVEDP 18, CO/CI 5.4/3.0, aortic valve with mean pressure gradient 28 mmHg, KAELYN 0.95 cm�.
LAD 100% occluded midportion, NAVAS to LAD versus diagonal is patent to either mid LAD or diagonal branch with anterograde and retrograde filling well-developed septal collaterals from RCA noted. Ramus occluded at origin distal fills via patent free
radial to ramus graft. Circumflex 100% occluded at origin, RCA occluded with patent SVG to PDA. Graft angiography: NAVAS as above, free radial to ramus widely patent, SVG to OM1 100% occluded, SVG to PDA 50 to 55% stenosis in the mid
[facility] 05/03/2025: Hemodynamics (mmHg):RA (m) : 16, RV (s/d,m) : 68/10, 13, PA (s/d, m) : 67.35, 47, PCWP (m) : 39 with V waves up to 47, PA saturation: 57.9% on 8 L of oxygen via nasal cannula, AO saturation: 88% on 8 L of oxygen via nasal cannula
using noninvasive pulse ox, RA saturation: 60% on 8 L of oxygen via nasal cannula. Cardiac Output : 5.03 L/min by Tejas calculation, Cardiac Index : 2.75 L/min/m-2 by Tejas calculation Systemic vascular resistance: 1208 dsc^(-5), Pulmonary vascular
resistance: 1.59 huang unit
Plan:
Clinically he is largely unchanged.
Continue current regimen.
By chest x-ray 05/06/2025, his right pleural effusion has recurred. May benefit from repeat thoracentesis 05/08/2025, will defer to primary service
Plan at this time is to initiate hemodialysis on Wednesday.
Thereafter, will evaluate timing of TAVR.
Appears to be AF with occasional V pacing on telemetry
No new cardiac recommendations at this time beyond potentially thoracentesis/fluid reduction through dialysis.
HPI 04/19/2025:
History of Present Illness:
Patient came to the ER 04/18/2025 with weight gain and increasing lower extremity edema despite up titration of outpatient diuretics. He is a 79-year-old male with a history of permanent atrial fibrillation, aortic stenosis with previous evaluation
for TAVR with repeat eval currently undergoing( eval in 2016, 2022-mean gradient on C 27 and TAVR not advised), coronary artery disease, status post CABG, recurrent GI bleeds, chronic kidney disease, ICD, anemia, smoker. He had a previous
admission to [facility] 03/11/2025 - 03/17/2025 with near syncope and a fall, shock. Hemoglobin 6.7, creatinin e 2.6 (baseline 2.0) diuretics (Lasix, Metolazone, Spironolactone) and Coreg held most of admission and restarted at lower outpatient dose.
Required midodrine for BP support. Seen by GI and GI bleed thought to be due to AVMs. 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 Eliquis resumed 5 days after endoscopy, at
lower dose 2.5 mg bid. Repeat TAVR evaluation performed with echo and right and left heart cath (mean gradient 28)and patient is being considered for TAVR, structural heart team plans to discuss him at meeting tomorrow.
CT TAVR 04/16/2025 with measurements to be added as separate addendum, had moderate right and small left pleural effusion
Patient was discharged on 03/31/2025 furosemide 40 mg twice daily, midodrine 5 mg 3 times daily, apixaban 2.5 mg twice daily (dose lowered due to CKD) and atorvastatin. Metolazone, spironolactone, and carvedilol were all held.
Weight progressively increasing since last discharge on 03/17/2025, weight at that time 151 pounds, weight on admission 04/18/2025 180 pounds. Outpatient Lasix has been uptitrated over past month to 120 mg twice daily and metolazone restarted at 2.5
mg M-W-, initially with stable creatinine at 1.56 on 04/02/2025, but 2.1 on 04/18/2025 and progressive weight gain.
Progress Note - Manager Test
Subjective
Date of Service: May 07, 2025
Patient seen and examined. No acute events overnight. Patient resting in bed reporting mild shortness of breath denies chest pain, palpitations, or weakness.
Objective
Labs:
05/07/25 02:57
05/07/25 02:57
Labs
Hgb 10.7 g/dL (13.0-18.0) L 05/07/25 02:57
Hct 32.1 % (39.0-52.0) L 05/07/25 02:57
Plt Count 193 10^3/uL (130-400) 05/07/25 02:57
Sodium 131 mmol/L (135-145) L 05/07/25 02:57
Potassium 4.1 mmol/L (3.5-5.1) 05/07/25 02:57
BUN 85 mg/dl (9-20) H 05/07/25 02:57
Creatinine 2.8 mg/dL (0.7-1.3) H 05/07/25 02:57
Glucose 144 mg/dl (70-99) H 05/07/25 02:57
Vital Signs and I&O:
Vital Signs
Temp Pulse Resp BP Pulse Ox
97.5 F 68 18 120/70 93
05/07/25 06:46 05/07/25 09:00 05/07/25 06:46 05/07/25 06:44 05/07/25 06:46
Vital Signs
Temp Pulse Resp BP Pulse Ox
97.5 F 68 18 120/70 93
05/07/25 06:46 05/07/25 09:00 05/07/25 06:46 05/07/25 06:44 05/07/25 06:46
Intake & Output
05/05/25 05/06/25 05/07/25 05/08/25
06:59 06:59 06:59 06:59
Intake Total 720 / 720 1200 / 1200 920 / 920 120 / 120
Output Total 500 / 500 1100 / 1100 700 / 700 300 / 300
Balance 220 / 220 100 / 100 220 / 220 -180 / -180
Physical Exam
Physical Exam
GENERAL: no acute distress, chronically ill-appearing
EYE: sclera anicteric
NECK: Supple, + JVD, no carotid bruit appreciated
ENT: normal nose, moist mucosal membranes
CARDIAC: Irregularly irregular, +S1/S2 (faint), 2/6 systolic ejection murmur; no rubs, or gallops
CHEST/PULMONARY: Normal effort, diminished bases
ABDOMEN: Soft, without focal tenderness or distention
NEUROLOGICAL: Alert and oriented x3
SKIN: Warm and dry, no rash; trace bilateral lower extremity edema
PSYCH: Normal and appropriate interaction.
--- NOTE | 2025-05-07 11:01 | W.PN.NEPH.PH ---
Today's Communication / Plan
-
Temporary dialysis catheter placement tomorrow
Hemodialysis to be initiated tomorrow
Can maintain IV diuretics until dialysis initiated
Discussed plan with patient
Assessment/Plan
-
IMP:
Acute on Chronic HFrEF
Abnormal Troponin - Likely secondary to CHF
JAY on CKD 4baseline cr at 2-follows Dr Yates
Paroxysmal atrial fibrillation
Chronic hyponatremia
COPD without exacerbation
Chronic heart failure reduced EF 30%
CAD/CABG x 4 (2001)
Medtronic single-chamber ICD, 2017
Carotid disease -s/p left CEA 2012.
Essential hypertension
DM 2
Severe aortic stenosis -previously declined TAVR workup.
Hyperlipidemia
Gout
h/o GI bleed 03/2025 , known h/o AVMS
traumatic left-sided rib fractures -due to fall last admit in March
Plan:
Right heart catheterization performed on 05/04/2025 reviewed: Pulmonary capillary wedge pressure 39 cardiac output 5 L
Diamox now off
Creatinine at 2.8 non oliguric ` 1 L
await TAVR planning
no emergent HD needs, but patient grossly volume overloaded by RHC
push forward with dialysis and have catheter placed on Wednesday with subsequent dialysis
IR consulted for temporary dialysis catheter placement
Dialysis orders provide
We need to continue diuresis over the weekend with current IV Lasix administration
follow BMP
Hyponatremia persist in setting of volume overload
prognosis is guarded
Patient with clinically high complexity now requiring hemodialysis catheter placement tomorrow with the initiation of dialysis for volume removal
-
-
Date of Service: May 07, 2025
CC / HPI / ROS
-
Chief Complaint:
Acute kidney injury
History of Present Illness:
JAY/Cr worse to 2.8, BUN 80s
metabolic alkalosis improved
Hemodynamically stable on midodrine
Remains on IV Lasix 80 mg twice daily
Review of Systems:
Nonoliguric
No fevers or chills
No obvious shortness of breath
Weight stable
Labs
-
Labs:
WBC 5.9 10^3/uL (4.8-10.8) 05/07/25 02:57
RBC 3.22 10^6/uL (4.70-6.10) L 05/07/25 02:57
Hgb 10.7 g/dL (13.0-18.0) L 05/07/25 02:57
Hct 32.1 % (39.0-52.0) L 05/07/25 02:57
Plt Count 193 10^3/uL (130-400) 05/07/25 02:57
Sodium 131 mmol/L (135-145) L 05/07/25 02:57
Potassium 4.1 mmol/L (3.5-5.1) 05/07/25 02:57
Chloride 97 mmol/L (98-107) L 05/07/25 02:57
Carbon Dioxide 28 mmol/L (22-30) 05/07/25 02:57
BUN 85 mg/dl (9-20) H 05/07/25 02:57
Creatinine 2.8 mg/dL (0.7-1.3) H 05/07/25 02:57
eGFR 22.25 05/07/25 02:57
Glucose 144 mg/dl (70-99) H 05/07/25 02:57
Calcium 9.2 mg/dl (8.4-10.2) 05/07/25 02:57
Phosphorus 4.1 mg/dl (2.5-4.5) 04/21/25 11:18
Rea-R-Jmkkhpvyxiw Pept 19371 pg/ml 04/18/25 18:44
Albumin 3.0 g/dl (3.5-5.0) L 05/05/25 03:41
Physical Exam
-
Vital Signs:
Vital Signs
Temp Pulse Resp BP Pulse Ox
97.5 F 68 18 120/70 93
05/07/25 06:46 05/07/25 09:00 05/07/25 06:46 05/07/25 06:44 05/07/25 06:46
Cardiovascular:: Regular rate and rhythm
Respiratory:: Bilateral: Coarse and Bilateral: Rales
Lung Excursion:: Normal
Abdomen:: Nontender and Soft
Bowel Sounds:: Normal
Extremity Edema:: None: Bilateral:
[2025-05-07 12:09] LABS: Glucose - Point of Care 196 mg/dl (70-99)
[2025-05-07] MEDS: NOVOLOG FLEXPEN-MODERATE RESISTANCE 1 UNITS SC (12:48)
[2025-05-07] MEDS: NON-FORMULARY ITEM 1 UNIT BOTH EYES ×2 (12:48→21:55)
[2025-05-07 13:16] LABS: Glucose - Point of Care 204 mg/dl (70-99)
[2025-05-07 16:52] LABS: Glucose - Point of Care 243 mg/dl (70-99)
[2025-05-07] MEDS: NOVOLOG FLEXPEN-MODERATE RESISTANCE 3 UNITS SC (17:34)
[2025-05-07 21:53] LABS: Glucose - Point of Care 298 mg/dl (70-99)
[2025-05-07] MEDS: LANTUS 0.14 UNITS SC (21:54)
[2025-05-07] MEDS: ELIQUIS 5 MG PO (21:55)
[2025-05-07] MEDS: AMBIEN 5 MG PO (21:55)
[2025-05-07] MEDS: REMOVE NICOTINE PATCH 1 PATCH REMOVE (22:05)
[2025-05-07] MEDS: DESENEX/MITRAZOL/ZEASORB 1 APPLIC TOPICAL (22:05)
[2025-05-08] VITALS (20 sets, daily range): BP systolic 80–146; BP diastolic 52–132; BMI 27.7
[2025-05-08 03:40] LABS: Hematocrit 31.7 % (39.0-52.0); Hemoglobin 10.5 g/dL (13.0-18.0); Mean Corp Hgb Conc. 33.1 g/dL (33.0-37.0); Mean Corpuscular Volume 101.0 fL (80.0-94.0); Nucleated Red Blood Cells % 0 % (-); Platelet Count 201 10^3/uL (130-400); Red Cell Dist. Width 17.0 % (11.5-14.5)
[2025-05-08 04:04] LABS: ALT (SGPT) 16 U/L (0-50); AST (SGOT) 29 U/L (17-59); Albumin 2.9 g/dl (3.5-5.0); Alkaline Phosphatase 115 U/L (38-126); Blood Urea Nitrogen 85 mg/dl (9-20); Calcium 9.1 mg/dl (8.4-10.2); Carbon Dioxide 28 mmol/L (22-30); Chloride 97 mmol/L (98-107); Estimated Creatinine Clearance 21 ml/min; Glucose 207 mg/dl (70-99); Potassium 4.4 mmol/L (3.5-5.1); Sodium 130 mmol/L (135-145); Total Protein 6.1 g/dl (6.3-8.2); eGFR 25.50
--- NOTE | 2025-05-08 05:57 | PTCARENOTE ---
Assumed care of the pt @ 1900. Pt is AAOx2 A fib on the monitor VSS denies cp or SOB + SAINI lungs coarse decreased on rt. IS 500 ml poor technique. NC 2L POC discussed with pt. Call moreno within reach.
[2025-05-08 08:01] LABS: Glucose - Point of Care 203 mg/dl (70-99)
[2025-05-08] MEDS: NOVOLOG FLEXPEN SC (09:00)
--- NOTE | 2025-05-08 09:06 | W.PN.HOSP.TC ---
Today's Communication/Plan
-
- Thora today
- HD today, lasix 80mg bid until then
- Planning for inpatient TAVR
- Appreciate cards & renal recs
Assessment / Plan
Assessment / Plan
Robert An is a 79yo M with a pmh notable for CAD (s/p CABG and stents), HFrEF (30 LVEF %), severe , A-fib (on Eliquis, has ICD), carotid artery stenosis (status post left CEA), IDDM, and CKD stage IIIb who presented with increasing lower
extremity edema and abrupt weight gain (20lbs > dry weight), found to have acute on chronic HFrEF & cardiorenal syndrome w pleural effusions, now s/p thoracentesis (04/30), s/p RHC (05/03), following renal fxn & volume status w HD planned in advance
of TAVR.
#Acute on chronic HFrEF (30% EF)
#Severe low gradient aortic stenosis
#Moderate mitral regurg
S/p CT TAVR on 04/28.
- Continue Lasix 80mg IV BID (05/03- ; s/p acetazolamide 04/28-; lasix 04/27-; metolazone 04/23-) until HD today
- Inpatient TAVR, pending HD - renal & cards following, appreciate recs
- Continue metoprolol succinate (12.mg daily), midodrine (5mg tid)
- Continue to monitor I&Os and daily weights
- Encourage OOB with PT/OT
#JAY on CKD stage IIIb
#Cardiorenal syndrome
#Alkalosis
#Hyponatremia
RHC on 05/03 showed elevated filling pressures across all chambers w normal CO. Cr downtrending today to 2.5, from 2.8-3.0 range since 05/01. Hyponatremia stable (130). Bicarb normalized (28).
- Plan for HD today with temporary catheter placement today
- Continue IV lasix 80mg BID until HD
- Trend CMP, replete lytes as needed
#Acute hypoxic respiratory failure
#Bilateral pleural effusions, R>L
Stable satting 94% on 2L O2 NC today. S/p R-sided thoracentesis (04/30) of transudative fluid, 1850 cc, 2/2 CHF. Therapeutic thora today, yielding 1600 cc of straw colored pleural fluid.
- Plan to wean O2 NC as tolerated, maintain O2 sat>92%
- Incentive spirometry
Chronic conditions:
#A-fib: Chronic, currently rate controlled. Continue anticoagulation with Eliquis.
#IDDM: Insulin dosing to match home dose (lantus 14, novolog 3) > increased to 18, 5 given hyperglycemia inpt
#Global
- DVT prophylaxis: Eliquis (restart today, okay before thora per IR)
- CODE STATUS: Full code
- Dispo: Likely to home (lives at home w ), evaluate when stable
Anticipated Discharge: > 48 hours
Subjective/Interval History
-
Date of Service: May 08, 2025
Saw patient in early afternoon after thoracentesis & after HD catheter placement. Pt groggy but able to converse. States that he had procedure in his back. When asked if he's still in favor of a heart procedure once kidney function is improved, he
said 'that's why I'm here.' However, does not seem to express understanding of placement of HD catheter or that he is receiving HD. Dialysis team at bedside about to begin. Denies any dyspnea, says that breathing feels the same post-thora as before.
No pain, no cough, no new complaints.
Objective Data
-
Labs:
Laboratory Results
05/08/25
03:12
WBC 6.7
Hgb 10.5 L
Hct 31.7 L
Plt Count 201
Sodium 130 L
Potassium 4.4
Chloride 97 L
Carbon Dioxide 28
BUN 85 H
Creatinine 2.5 H
Glucose 207 H
Calcium 9.1
Total Bilirubin 0.8
AST 29
ALT 16
Alkaline Phosphatase 115
Vital Signs:
Vital Signs
Temp Pulse Resp BP Pulse Ox
98.1 F 80 19 137/76 94
05/08/25 08:29 05/08/25 08:29 05/08/25 08:29 05/08/25 08:29 05/08/25 08:29
I&O
05/07/25 05/08/25 05/09/25
06:59 06:59 06:59
Intake Total 920 / 920 120 / 120
Output Total 700 / 700 1400 / 1400
Balance 220 / 220 -1280 / -1280
Review of Systems
-
Unable to obtain full review of systems at this time due to: Dementia
History Source: Patient
Constitutional: Reports No Symptoms
Respiratory: Reports No Symptoms
Cardiac: Reports No Symptoms
Physical Exam
-
General: Other (elderly, somnolent, weak speech )
HEENT: Normocephalic, Atraumatic, Anicteric and Other (HD catheter in place R IJ)
Respiratory: Clear to Auscultation, Non Labored Respirations and Other (clean band-aid on L-side back, no surrounding erythema, no drainage (thora site) )
Cardiac: Regular Rhythm and S1/S2
GI: Nondistended
Genito-urinary: Other (condom catheter on; light yellow urine in bag )
Musculoskeletal: Other (trace bilat MELVIN, improved from yesterday )
Skin: Other (bilat LE w chronic venostatic skin changes )
Neuro: Other (speech somewhat unclear, groggy but conversant )
Psych: Calm and Confused
Data Reviewed
-
Total Time Spent with Patient (in minutes): 10
Critical Care Time (in minutes): 35
Diagnostic Radiology: Report Reviewed by me
Labs: Labs Reviewed by me
[2025-05-08 09:51] LABS: Hepatitis B Surface Antigen Negative (Negative)
[2025-05-08 10:10] LABS: Hepatitis C Antibody Negative (Negative)
[2025-05-08] MEDS: ANTIFUNGAL CLEAR 1 APPLIC TOPICAL ×3 (11:14→21:25)
[2025-05-08] MEDS: NOVOLOG FLEXPEN-MODERATE RESISTANCE SC ×2 (11:14→16:56)
[2025-05-08] MEDS: NICODERM TRANSDERMAL 14 MG TRANSDERM (11:14)
[2025-05-08] MEDS: ELIQUIS 5 MG PO ×2 (11:15→20:38)
[2025-05-08] MEDS: DESENEX/MITRAZOL/ZEASORB 1 APPLIC TOPICAL ×2 (11:16→20:38)
[2025-05-08] MEDS: LIPITOR 80 MG PO (11:16)
[2025-05-08] MEDS: ZYLOPRIM 100 MG PO ×2 (11:17→20:38)
[2025-05-08] MEDS: PROTONIX 40 MG PO ×2 (11:17→20:38)
[2025-05-08] MEDS: NON-FORMULARY ITEM 1 UNIT BOTH EYES ×2 (11:18→21:25)
[2025-05-08] MEDS: TOPROL XL PO (11:18)
[2025-05-08] MEDS: LASIX IV (11:20)
[2025-05-08] MEDS: KCL PO (11:20)
[2025-05-08 11:23] LABS: Body Fluid Second Tech EM
--- NOTE | 2025-05-08 11:33 | W.PN.CARDCBS ---
Addendum entered and electronically signed by Nazario Sutton MD 05/08/25 16:53:
Discussed with patient's in detail. Awaiting initiation of dialysis. Discussing outpatient versus inpatient TAVR with interventional team
Addendum entered and electronically signed by Nazario Sutton MD 05/08/25 11:57:
I saw and examined the patient.
The ELECTRICAL INSTRUMENT MAKER or PA's note was reviewed and I agree with the note.
Comment: General: Well developed, well nourished in NAD.
Neck: Supple, no JVD, HJR, carotids +2 B/L, no bruits bilaterally.
Heart: Non displaced PMI, RRR, 2/6 basal systolic murmur, No S3, S4, no rubs.
Lungs: Scattered rhonchi
Extremities: No clubbing, cyanosis or edema bilaterally.
Neuro: Grossly nonfocal, awake, alert and oriented x3.
Status post right thoracentesis with 1.6 L earlier today. For hemodialysis today. Eventual TAVR possibly as an inpatient.
Original Note:
Today's Communication / Plan
-
s/p R thora
for HD initiation today
continue IV lasix
timing of TAVR pending response to above
Impression / Plan
-
PCP: Dr. Eason
Primary Automobile Glass Technician: Dr. Sutton
Impression:
Admitted 04/18/2025 with acute CHF and JAY
Acute on chronic HFrEF, proBNP 18,500
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
Recent admission for shock, anemia, GI bleed 03/11/2025 until 03/17/2025
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
Severe since 2019
s/p TAVR work-up with MPG 27 at time of cath and not recommended TAVR 01/2023
RHC/LHC 03/15/2025 MPG 28 mmHg, stable CAD, current TAVR eval in process
ICM EF 31%, echo 03/12/2025
History of reduced ejection fraction heart failure with recovered EF
CAD status post CABGx4 in setting of [place] in 2001
carotid disease s/p left CEA in 2012
s/p [employer] single chamber ICD 2017
Persistent Afib
Chronic Eliquis OAC
DM 2
Gout
Smoker, ongoing tobacco use
Previous CV studies:
Echo 08/23/2019: EF 30-35%, global hypokinesis with inferolateral, inferior and basal septal akinesis, mild MR, sev pressure 47/28 mmHg
ECHO 12/03/22: EF 50%, mild LVH, stage III diastolic dysfunction, mild MR, severe with peak/mean gradients 54/28 mmHg, KAELYN 0.8 cm�, trace AR, mild TR, PAP 64 mmHg, mild dilation of aorta measuring 4.0 cm
Echo 10/09/2024: EF 35 to 40%, moderate eccentric MR, severe peak/mean 60/34 mmHg and KAELYN 0.8 cm sq, mild aortic insufficiency, moderate TR with PAP 64 mmHg
Echo 03/12/2025: EF 31%, global hypokinesis, moderate MR, severe peak/mean 41/22 mmHg and KAELYN 0.7 cm sq, mild aortic regurgitation, moderate to severe TR with PAP 72 mmHg
Right heart cath/left heart cath 03/15/2025: RA 14, PA 67/28, PCWP 24, LVEDP 18, CO/CI 5.4/3.0, aortic valve with mean pressure gradient 28 mmHg, KAELYN 0.95 cm�.
LAD 100% occluded midportion, NAVAS to LAD versus diagonal is patent to either mid LAD or diagonal branch with anterograde and retrograde filling well-developed septal collaterals from RCA noted. Ramus occluded at origin distal fills via patent free
radial to ramus graft. Circumflex 100% occluded at origin, RCA occluded with patent SVG to PDA. Graft angiography: NAVAS as above, free radial to ramus widely patent, SVG to OM1 100% occluded, SVG to PDA 50 to 55% stenosis in the mid
[facility] 05/03/2025: Hemodynamics (mmHg):RA (m) : 16, RV (s/d,m) : 68/10, 13, PA (s/d, m) : 67.35, 47, PCWP (m) : 39 with V waves up to 47, PA saturation: 57.9% on 8 L of oxygen via nasal cannula, AO saturation: 88% on 8 L of oxygen via nasal cannula
using noninvasive pulse ox, RA saturation: 60% on 8 L of oxygen via nasal cannula. Cardiac Output : 5.03 L/min by Tejas calculation, Cardiac Index : 2.75 L/min/m-2 by Tejas calculation Systemic vascular resistance: 1208 dsc^(-5), Pulmonary vascular
resistance: 1.59 huang unit
Plan:
- He was admitted with acute CHF and JAY. Also with ischemic cardiomyopathy and severe .
- He has been diuresed with assistance of nephrology. remains on IV lasix 80mg BID. Cr 2.5. plan for initiation of HD today
- s/p R thoracentesis 05/08 for 1600cc. also had R thora 04/30/25.
- GDMT of CM limited by hypotension and JAY. continue toprol 12.5mg daily and midodrine 5mg TID.
- in afib with occasional vpacing and PVCs.
- will discuss timing of TAVR pending above
- appears deconditioned. continue PT/OT
HPI 04/19/2025:
History of Present Illness:
Patient came to the ER 04/18/2025 with weight gain and increasing lower extremity edema despite up titration of outpatient diuretics. He is a 79-year-old male with a history of permanent atrial fibrillation, aortic stenosis with previous evaluation
for TAVR with repeat eval currently undergoing( eval in 2016, 2022-mean gradient on [facility] 27 and TAVR not advised), coronary artery disease, status post CABG, recurrent GI bleeds, chronic kidney disease, ICD, anemia, smoker. He had a previous
admission to [facility] 03/11/2025 - 03/17/2025 with near syncope and a fall, shock. Hemoglobin 6.7, creatinin e 2.6 (baseline 2.0) diuretics (Lasix, Metolazone, Spironolactone) and Coreg held most of admission and restarted at lower outpatient dose.
Required midodrine for BP support. Seen by GI and GI bleed thought to be due to AVMs. 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 Eliquis resumed 5 days after endoscopy, at
lower dose 2.5 mg bid. Repeat TAVR evaluation performed with echo and right and left heart cath (mean gradient 28)and patient is being considered for TAVR, structural heart team plans to discuss him at meeting tomorrow.
CT TAVR 04/16/2025 with measurements to be added as separate addendum, had moderate right and small left pleural effusion
Patient was discharged on 03/31/2025 furosemide 40 mg twice daily, midodrine 5 mg 3 times daily, apixaban 2.5 mg twice daily (dose lowered due to CKD) and atorvastatin. Metolazone, spironolactone, and carvedilol were all held.
Weight progressively increasing since last discharge on 03/17/2025, weight at that time 151 pounds, weight on admission 04/18/2025 180 pounds. Outpatient Lasix has been uptitrated over past month to 120 mg twice daily and metolazone restarted at 2.5
mg -W-, initially with stable creatinine at 1.56 on 04/02/2025, but 2.1 on 04/18/2025 and progressive weight gain.
Progress Note - Automobile Glass Technician
Subjective
Date of Service: May 08, 2025
Reports breathing much better status post thoracentesis
Objective
Labs:
05/08/25 03:12
05/08/25 03:12
Labs
Hgb 10.5 g/dL (13.0-18.0) L 05/08/25 03:12
Hct 31.7 % (39.0-52.0) L 05/08/25 03:12
Plt Count 201 10^3/uL (130-400) 05/08/25 03:12
Sodium 130 mmol/L (135-145) L 05/08/25 03:12
Potassium 4.4 mmol/L (3.5-5.1) 05/08/25 03:12
BUN 85 mg/dl (9-20) H 05/08/25 03:12
Creatinine 2.5 mg/dL (0.7-1.3) H 05/08/25 03:12
Glucose 207 mg/dl (70-99) H 05/08/25 03:12
Vital Signs and I&O:
Vital Signs
Temp Pulse Resp BP Pulse Ox
98.1 F 69 20 117/77 92
05/08/25 08:29 05/08/25 09:25 05/08/25 09:25 05/08/25 11:16 05/08/25 09:25
Vital Signs
Temp Pulse Resp BP Pulse Ox
98.1 F 69 20 117/77 92
05/08/25 08:29 05/08/25 09:25 05/08/25 09:25 05/08/25 11:16 05/08/25 09:25
Intake & Output
05/06/25 05/07/25 05/08/25 05/09/25
07:59 07:59 07:59 07:59
Intake Total 1200 / 1200 1040 / 1040 0 / 0
Output Total 1100 / 1100 1000 / 1000 1100 / 1100
Balance 100 / 100 40 / 40 -1100 / -1100
Physical Exam
Physical Exam
GEN: No distress, awake, alert, oriented. On supplemental O2 x3
HEENT: supple, anicteric, mmm, EOMI
LUNGS: Crackles at left lung base
CV: Irreg, S1/S2, 2/6 syst LSB
ABD: soft, BS+, NT/ND
EXT: No cyanosis, clubbing, edema
NEURO: Gross non-focal
SKIN: Warm, pink, dry. No rash
[2025-05-08] MEDS: NOVOLOG FLEXPEN 5 UNITS SC ×2 (11:40→16:55)
[2025-05-08] MEDS: NOVOLOG FLEXPEN-MODERATE RESISTANCE 3 UNITS SC (11:40)
[2025-05-08 11:41] LABS: Glucose - Point of Care 200 mg/dl (70-99)
--- NOTE | 2025-05-08 11:55 | PTCARENOTE ---
Received pt s/p right-sided thoracentesis and right IJ permacath insertion. VSS, monitor showing afib. Bandaid to right mid-back c/d/i, dressing to right neck c/d/i. Call moreno in reach.
[2025-05-08] MEDS: MANNITOL 25% 12.5 GRAMS IV ×2 (13:05→14:14)
--- NOTE | 2025-05-08 15:04 | W.PN.NEPH.HD ---
Assessment
-
pt seen during HD
vitals stable on midodrine
UF as tolerates
s/p Thoracentesis of 1.6lit today
k is rising slowly on kcl-hold for now
change lasix to PO
hD again tomorrow
temp HD catheter functions fine -need to switch tunneled when possible
eventual TAVR
need HD unit placement
Progress Note - Hemodialysis
-
Date of Service: May 08, 2025
Duration: 30 minutes and 2 hours
Potassium Bath: 3
Calcium Bath: 2.5
Opti-Dialyzer: 160
Ultrafiltration: Other (1-1.5kg)
Blood Flow: 250
Dialysate Flow: 600
Heparin: no
EPO: no
[2025-05-08] MEDS: HEPARIN 2500 UNITS INTRACATH (15:14)
--- NOTE | 2025-05-08 16:01 | CM ---
HD started today, cm to set up up health system in [place].
[2025-05-08 16:19] LABS: Glucose - Point of Care 130 mg/dl (70-99)
[2025-05-08] MEDS: LASIX 80 MG PO (16:55)
[2025-05-08] MEDS: XANAX 0.25 MG PO (17:04)
[2025-05-08] MEDS: AMBIEN 5 MG PO (21:24)
[2025-05-08] MEDS: REMOVE NICOTINE PATCH 1 PATCH REMOVE (21:25)
[2025-05-08 22:56] LABS: Glucose - Point of Care 154 mg/dl (70-99)
[2025-05-08] MEDS: LANTUS 0.18 UNITS SC (22:58)
[2025-05-09] VITALS (24 sets, daily range): BP systolic 87–136; BP diastolic 40–99; PULSE 76; O2SAT 95; BMI 26.5
--- NOTE | 2025-05-09 05:07 | PTCARENOTE ---
Pt AAOx2, disoriented to time. Pt MEK[place] and forgetful at times. Tele monitor shows Afib w/ PVCs, and occasionally Vpaced. HR in the 60-70's at rest. Denies any pain. Sating 94-96% on 2L O2. Lungs w/ crackles in right base. CC maintained d/t pt
frequently incontinent. Bed alarm remains active, call moreno within reach.
[2025-05-09] MEDS: NOVOLOG FLEXPEN 5 UNITS SC ×3 (07:20→17:32)
[2025-05-09 07:21] LABS: Glucose - Point of Care 119 mg/dl (70-99)
[2025-05-09] MEDS: NOVOLOG FLEXPEN-MODERATE RESISTANCE SC ×2 (07:21→12:54)
--- NOTE | 2025-05-09 07:49 | W.PN.HOSP.TC ---
Today's Communication/Plan
-
- Continue diuresis per renal/cards recs, s/p day 2 HD today
- Pending TAVR timing
Assessment / Plan
Assessment / Plan
Robert An is a 79yo M with a pmh notable for CAD (s/p CABG and stents), HFrEF (30 LVEF %), severe , A-fib (on Eliquis, has ICD), carotid artery stenosis (status post left CEA), IDDM, and CKD stage IIIb who presented with increasing lower
extremity edema and abrupt weight gain (20lbs > dry weight), found to have acute on chronic HFrEF & cardiorenal syndrome w pleural effusions, now s/p therapeutic thoracentesis x2 (04/30, 05/08), s/p RHC (05/03), s/p HD (05/08), following renal fxn &
volume status in advance of inpt TAVR.
#Acute on chronic HFrEF (30% EF)
#Severe low gradient aortic stenosis
#Moderate mitral regurg
S/p CT TAVR on 04/28. RHC on 05/03 showed elevated filling pressures across all chambers w normal CO. Pt at dry weight today, 72.2kg.
- Continue Lasix 80mg IV BID (05/03- ; s/p acetazolamide 04/28-; lasix 04/27-; metolazone 04/23-) until HD today
- Inpatient TAVR, pending HD - renal & cards following, appreciate recs
- Continue metoprolol succinate (12.mg daily), midodrine (5mg tid)
- Continue to monitor daily weights
- Encourage OOB with PT/OT
#JAY on CKD stage IIIb
#Cardiorenal syndrome
#Alkalosis
#Hyponatremia
Cr downtrending today to 1.9 from 2.5, from 2.8-3.0 range since 05/01. S/p HD (05/08) w temporary IJ catheter placed. Hyponatremia stable (133). Bicarb moderately elevated (31).
- Plan for second round of HD today
- Continue PO lasix 80mg BID (05/08- ; s/p IV lasix 80mg bid 05/04-05/08)
- Trend CMP, replete lytes as needed
- Hold KCl
- Switch to tunneled HD cath when possible
- Case mgmt setting up [facility] in [place] for outpatient
#Acute hypoxic respiratory failure
#Bilateral pleural effusions, R>L
S/p R-sided thoracentesis (04/30): transudative fluid, 1850 cc, / CHF. S/p therapeutic thora (05/08): 1600 cc of straw colored pleural fluid. Remains on 2L NC, O2 sat 97% today (from 94% yesterday).
- Plan to wean O2 NC as tolerated, maintain O2 sat>92%
- Incentive spirometry
#Insomnia
Pt states he hasn't been able to sleep, requesting something to help. Pt has been receiving PRN zolpidem 5mg nightly (home med).
- Add 3mg melatonin HS
- Continue PRN zolpidem 5mg
Chronic conditions:
#A-fib: Chronic, currently rate controlled. Continue anticoagulation with Eliquis.
#IDDM: Insulin dosing to match home dose (lantus 14, novolog 3) > increased to 18, 5 given hyperglycemia inpt (05/08)
#Global
- DVT prophylaxis: Eliquis
- CODE STATUS: Full code
- Dispo: Likely to home (lives at home w ), evaluate when stable, dispo likely to rehab after inpt TAVR; PT/OT following
Anticipated Discharge: > 48 hours
Subjective/Interval History
-
Date of Service: May 09, 2025
Pt awake & alert. Speaking with somewhat slurred speech, which has been his baseline since admission. States that he feels fine, no dyspnea, no pain. Says he is ready to go home. When asked about desire to get procedure to fix heart valve, states
that he wants that. States that he has been getting up out of bed & walking, denies issue. Pt in process of getting HD during conversation. Pt asking for something to help him sleep, says he has not been able to sleep inpt.
Objective Data
-
Labs:
Laboratory Results
05/09/25
06:00
WBC Pending
Hgb Pending
Hct Pending
Plt Count Pending
Sodium Pending
Potassium Pending
Chloride Pending
Carbon Dioxide Pending
BUN Pending
Creatinine Pending
Glucose Pending
Calcium Pending
Total Bilirubin Pending
AST Pending
ALT Pending
Alkaline Phosphatase Pending
Vital Signs:
Vital Signs
Temp Pulse Resp BP Pulse Ox
98.1 F 85 17 117/70 97
05/09/25 07:29 05/09/25 07:28 05/09/25 07:29 05/09/25 07:28 05/09/25 07:29
I&O
05/08/25 05/09/25 05/10/25
06:59 06:59 06:59
Intake Total 480 / 480 720 / 720
Output Total 1750 / 1750 650 / 650
Balance -1270 / -1270 70 / 70
Review of Systems
-
Unable to obtain full review of systems at this time due to: Dementia
History Source: Patient
Constitutional: Reports No Symptoms
Respiratory: Reports No Symptoms
Cardiac: Reports No Symptoms
Physical Exam
-
General: Other (thin, frail appearing)
HEENT: Normocephalic, Atraumatic, Anicteric, Oxygen (nasal cannula) and Other (IJ catheter for HD )
Respiratory: Clear to Auscultation and Non Labored Respirations
Cardiac: Regular Rhythm and Murmur
GI: Nondistended
Genito-urinary: Other (ramírez catheter bag w minimal light colored urine )
Musculoskeletal: Other (MELVIN resolved)
Skin: Other (stasis dermatitis on bilat LE)
Psych: Calm and Apparent Dementia
[2025-05-09] MEDS: XANAX 0.25 MG PO (08:24)
[2025-05-09 08:52] LABS: Hematocrit 30.8 % (39.0-52.0); Hemoglobin 10.1 g/dL (13.0-18.0); Mean Corp Hgb Conc. 32.8 g/dL (33.0-37.0); Mean Corpuscular Volume 103.0 fL (80.0-94.0); Red Cell Dist. Width 17.3 % (11.5-14.5)
[2025-05-09 08:53] LABS: Nucleated Red Blood Cells % 0 % (-)
[2025-05-09] MEDS: FLEXBUMIN 25% FOR HEMODIALYSIS 12.5 GRAMS IV ×2 (08:54→09:55)
--- NOTE | 2025-05-09 08:58 | W.PN.CARDCBS ---
Addendum entered and electronically signed by Ivan Iyer MD 05/09/25 15:50:
Attending addendum: Patient seen and examined. I spoke with he and his . He looks brighter and is somewhat less confused today than late last week. I spoke with Dr. Leon who will plan on repeat HD tomorrow. There is a reasonable
likelihood that HD may become less fraught with hemodynamic issues post TAVR after is treated. However, this is NOT guaranteed and the patient and family understand that hypotension may be an ongoing issue. The reality is that we wont know
until we TAVR is done.
Apixaban 5 mg po bid: last dose was this morning. Ideally we would like a minimum of 48 hours and preferably 72 hours before large bore access.
Apixaban has been discontinued for possible TAVR Wednesday depending on our concerns re: bleeding risk.
Will discuss with TAVR team.
Original Note:
Today's Communication / Plan
-
on HD. UF as able. continue po lasix
continue low dose toprol and midodrine 5mg TID
eliquis 5mg BID
timing of TAVR TBD
Impression / Plan
-
PCP: Dr. Eason
Primary Grocery Clerk Stocking: Dr. Sutton
Impression:
Admitted 04/18/2025 with acute CHF and JAY
Acute on chronic HFrEF, proBNP 18,500
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
Recent admission for shock, anemia, GI bleed 03/11/2025 until 03/17/2025
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
Severe since 2018
s/p TAVR work-up with MPG 27 at time of cath and not recommended TAVR 01/2023
RHC/LHC 03/15/2025 MPG 28 mmHg, stable CAD, current TAVR eval in process
ICM EF 31%, echo 03/12/2025
History of reduced ejection fraction heart failure with recovered EF
CAD status post CABGx4 in setting of [place] in 2001
carotid disease s/p left CEA in 2012
s/p Medtronic single chamber ICD 2017
Persistent Afib
Chronic Eliquis OAC
DM 2
Gout
Smoker, ongoing tobacco use
Previous CV studies:
Echo 08/23/2019: EF 30-35%, global hypokinesis with inferolateral, inferior and basal septal akinesis, mild MR, sev pressure 47/28 mmHg
ECHO 12/03/22: EF 50%, mild LVH, stage III diastolic dysfunction, mild MR, severe with peak/mean gradients 54/28 mmHg, KAELYN 0.8 cm�, trace AR, mild TR, PAP 64 mmHg, mild dilation of aorta measuring 4.0 cm
Echo 10/09/2024: EF 35 to 40%, moderate eccentric MR, severe peak/mean 60/34 mmHg and KAELYN 0.8 cm sq, mild aortic insufficiency, moderate TR with PAP 64 mmHg
Echo 03/12/2025: EF 31%, global hypokinesis, moderate MR, severe peak/mean 41/22 mmHg and KAELYN 0.7 cm sq, mild aortic regurgitation, moderate to severe TR with PAP 72 mmHg
Right heart cath/left heart cath 03/15/2025: RA 14, PA 67/28, PCWP 24, LVEDP 18, CO/CI 5.4/3.0, aortic valve with mean pressure gradient 28 mmHg, KAELYN 0.95 cm�.
LAD 100% occluded midportion, NAVAS to LAD versus diagonal is patent to either mid LAD or diagonal branch with anterograde and retrograde filling well-developed septal collaterals from RCA noted. Ramus occluded at origin distal fills via patent free
radial to ramus graft. Circumflex 100% occluded at origin, RCA occluded with patent SVG to PDA. Graft angiography: NAVAS as above, free radial to ramus widely patent, SVG to OM1 100% occluded, SVG to PDA 50 to 55% stenosis in the mid
[facility] 05/03/2025: Hemodynamics (mmHg):RA (m) : 16, RV (s/d,m) : 68/10, 13, PA (s/d, m) : 67.35, 47, PCWP (m) : 39 with V waves up to 47, PA saturation: 57.9% on 8 L of oxygen via nasal cannula, AO saturation: 88% on 8 L of oxygen via nasal cannula
using noninvasive pulse ox, RA saturation: 60% on 8 L of oxygen via nasal cannula. Cardiac Output : 5.03 L/min by Tejas calculation, Cardiac Index : 2.75 L/min/m-2 by Tejas calculation Systemic vascular resistance: 1208 dsc^(-5), Pulmonary vascular
resistance: 1.59 huang unit
Plan:
- He was admitted with acute CHF and JAY. Also with ischemic cardiomyopathy and severe .
- He has been diuresed with assistance of nephrology. he was transitioned to po lasix 80mg BID by nephrology 05/08. Cr pending this AM. HD initiated 05/08. receiving HD again this AM. if accurate weight down 6 pounds from yesterday
- patient without complaints this morning. reports breathing stable
- s/p R thoracentesis 05/08 for 1600cc. also had R thora 04/30/25.
- GDMT of CM limited by hypotension and JAY. continue toprol 12.5mg daily and midodrine 5mg TID.
- in afib with occasional vpacing and PVCs on review of tele overnight
- for now, still meets criteria for eliquis 5mg BID as age<80 and weight>60kg.
- ongoing discussions regarding timing of TAVR pending above
- continue PT/OT
- d/w nursing
HPI 04/19/2025:
History of Present Illness:
Patient came to the ER 04/18/2025 with weight gain and increasing lower extremity edema despite up titration of outpatient diuretics. He is a 79-year-old male with a history of permanent atrial fibrillation, aortic stenosis with previous evaluation
for TAVR with repeat eval currently undergoing( eval in 2016, 2022-mean gradient on [facility] 27 and TAVR not advised), coronary artery disease, status post CABG, recurrent GI bleeds, chronic kidney disease, ICD, anemia, smoker. He had a previous
admission to [facility] 03/11/2025 - 03/17/2025 with near syncope and a fall, shock. Hemoglobin 6.7, creatinin e 2.6 (baseline 2.0) diuretics (Lasix, Metolazone, Spironolactone) and Coreg held most of admission and restarted at lower outpatient dose.
Required midodrine for BP support. Seen by GI and GI bleed thought to be due to AVMs. 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 Eliquis resumed 5 days after endoscopy, at
lower dose 2.5 mg bid. Repeat TAVR evaluation performed with echo and right and left heart cath (mean gradient 28)and patient is being considered for TAVR, structural heart team plans to discuss him at meeting tomorrow.
CT TAVR 04/16/2025 with measurements to be added as separate addendum, had moderate right and small left pleural effusion
Patient was discharged on 03/31/2025 furosemide 40 mg twice daily, midodrine 5 mg 3 times daily, apixaban 2.5 mg twice daily (dose lowered due to CKD) and atorvastatin. Metolazone, spironolactone, and carvedilol were all held.
Weight progressively increasing since last discharge on 03/17/2025, weight at that time 151 pounds, weight on admission 04/18/2025 180 pounds. Outpatient Lasix has been uptitrated over past month to 120 mg twice daily and metolazone restarted at 2.5
mg M-W-, initially with stable creatinine at 1.56 on 04/02/2025, but 2.1 on 04/18/2025 and progressive weight gain.
Progress Note - Grocery Clerk Stocking
Subjective
Date of Service: May 09, 2025
no issues overnight. tolerated HD yesterday.
Objective
Labs:
05/09/25 08:20
Labs
Hgb 10.1 g/dL (13.0-18.0) L 05/09/25 08:20
Hct 30.8 % (39.0-52.0) L 05/09/25 08:20
Plt Count 201 10^3/uL (130-400) 05/08/25 03:12
Sodium 130 mmol/L (135-145) L 05/08/25 03:12
Potassium 4.4 mmol/L (3.5-5.1) 05/08/25 03:12
BUN 85 mg/dl (9-20) H 05/08/25 03:12
Creatinine 2.5 mg/dL (0.7-1.3) H 05/08/25 03:12
Glucose 207 mg/dl (70-99) H 05/08/25 03:12
Vital Signs and I&O:
Vital Signs
Temp Pulse Resp BP Pulse Ox
98.1 F 85 17 117/70 97
05/09/25 07:29 05/09/25 07:28 05/09/25 07:29 05/09/25 07:28 05/09/25 07:29
Vital Signs
Temp Pulse Resp BP Pulse Ox
98.1 F 85 17 117/70 97
05/09/25 07:29 05/09/25 07:28 05/09/25 07:29 05/09/25 07:28 05/09/25 07:29
Intake & Output
05/07/25 05/08/25 05/09/25 05/10/25
07:59 07:59 07:59 07:59
Intake Total 1040 / 1040 360 / 360 720 / 720
Output Total 1000 / 1000 1450 / 1450 650 / 650
Balance 40 / 40 -1090 / -1090 70 / 70
Physical Exam
Physical Exam
GEN: No distress, awake, alert, orientedx3. on HD
HEENT: supple, anicteric, mmm, EOMI
LUNGS: Few scattered crackles
CV: Irreg, S1/S2, 2/6 syst LSB
ABD: soft, BS+, NT/ND
EXT: No cyanosis, clubbing. 1+ edema of B/L LE
NEURO: Gross non-focal
SKIN: Warm, pink, dry. No rash
[2025-05-09] MEDS: MANNITOL 25% 12.5 GRAMS IV ×2 (08:59→09:58)
[2025-05-09] MEDS: DESENEX/MITRAZOL/ZEASORB 1 APPLIC TOPICAL ×2 (09:15→19:32)
[2025-05-09] MEDS: ANTIFUNGAL CLEAR 1 APPLIC TOPICAL ×3 (09:15→22:22)
[2025-05-09] MEDS: NICODERM TRANSDERMAL 14 MG TRANSDERM (09:16)
[2025-05-09] MEDS: PROTONIX 40 MG PO ×2 (09:20→19:33)
[2025-05-09 09:22] LABS: ALT (SGPT) 15 U/L (0-50); AST (SGOT) 27 U/L (17-59); Albumin 3.0 g/dl (3.5-5.0); Alkaline Phosphatase 120 U/L (38-126); Blood Urea Nitrogen 46 mg/dl (9-20); Calcium 8.8 mg/dl (8.4-10.2); Carbon Dioxide 31 mmol/L (22-30); Chloride 99 mmol/L (98-107); Estimated Creatinine Clearance 27 ml/min; Glucose 149 mg/dl (70-99); Potassium 3.8 mmol/L (3.5-5.1); Sodium 133 mmol/L (135-145); Total Protein 6.2 g/dl (6.3-8.2); eGFR 35.44
[2025-05-09 09:28] LABS: Platelet Count 159 10^3/uL (130-400)
--- NOTE | 2025-05-09 10:11 | W.PN.NEPH.HD ---
Assessment
-
Patient seen on dialysis
Systolic blood pressure 100 after midodrine provided
Albumin provided on dialysis as well as mannitol to mitigate disequilibrium
Next dialysis will be tomorrow
I am not feeling confident that this patient will be able to be dialyzed effectively in the outpatient setting with his underlying cardiorenal syndrome given his hemodynamic lability with even minimal ultrafiltration
Progress Note - Hemodialysis
-
Date of Service: May 09, 2025
Duration: 45 minutes and 2 hours
Potassium Bath: 3
Calcium Bath: 2.5
Opti-Dialyzer: 160
Ultrafiltration: Other (1 kg is hemodynamically tolerated)
Blood Flow: 300
Dialysate Flow: 600
Heparin: None
EPO: None
[2025-05-09] MEDS: ELIQUIS 5 MG PO (11:16)
[2025-05-09] MEDS: TOPROL XL 12.5 MG PO (11:16)
[2025-05-09] MEDS: LIPITOR 80 MG PO (11:17)
[2025-05-09] MEDS: LASIX 80 MG PO ×2 (11:17→17:32)
--- NOTE | 2025-05-09 11:20 | PTCARENOTE ---
Attempted to wean to room air 84% on room air, placed on 2 liters NC 94-99%
[2025-05-09] MEDS: ZYLOPRIM PO (11:48)
--- NOTE | 2025-05-09 11:49 | PTCARENOTE ---
Patient AO x 2-3, forgetful to time. Speech mildly garbled, hand tremors improved. Attempted to wean to room air 84%, replaced on 2 liters NC. Loose non-productive cough, breath sounds diminished. Edema trace bilaterally and improved. Condom
catheter #[address] Right IJ tunneled catheter intact. Finished dialysis this am, removed 1 kilo. Assisted to chair, care provided. Alarms placed for safety, call moreno in reach
[2025-05-09 12:00] LABS: Glucose - Point of Care 95 mg/dl (70-99)
--- NOTE | 2025-05-09 12:30 | W.PN.UPDATE ---
Update Note
Progress Note Update
Per RN, attempted trial off O2 NC. Satted 84% on room air. Put back on 2L, O2 sat returned to 94%.
[2025-05-09] MEDS: NON-FORMULARY ITEM 1 UNIT BOTH EYES ×2 (14:07→22:23)
--- NOTE | 2025-05-09 15:29 | CONSULT.STRU ---
Addendum entered and electronically signed by Jorge L Luther MD 05/10/25 12:40:
I saw and examined the patient.
The ANIMAL HANDLER's note was reviewed and I agree with the note.
Comment:
We reviewed the procedural details and also the risks. I agree that it will be difficulty to dialyse him with his severe and loss in preload. He is pending a TEG to see of his eliquis has worn off. Pending TAVR tomorrow with me and Dr. Iyer.
Consent was obtained. Our team will craig back with the form for him to sign. Surgery would be much higher risk and agree that TAVR would be the most reasonable option.
Thank you for involving me in the care of this patient. Please feel free to contact me with any questions or concerns.
Jorge L Luther MD, MS
Cardiothoracic Surgeon
[facility]
This dictation was created using the Exploretrip dictation system. Please excuse any grammatical, typographical, or 'sound alike' errors.
Original Note:
Consultation
-
Date/Time Consultation Requested: 05/09/2025
Date/Time Consultation Performed: 05/09/2025
Requesting Provider: Dr. Ivan Iyer
Performing Provider: ANASTACIO Guaman
Reason for Consultation: Severe Aortic Stenosis
Patient History
Physicians
Family Physician: Dr. Eason
Outpatient Facilities Clerk: Dr. Sutton
Primary Facilities Clerk: Dr. Sutton
History of Present Illness
Mr An presented to the ER 04/18/2025 with weight gain and increasing lower extremity edema despite up titration of his outpatient diuretics. His outpatient Lasix had been uptitrated over past month to 120 mg twice daily and metolazone restarted
at 2.5 mg M-W-, initially with stable creatinine at 1.56 on 04/02/2025, but 2.1 on 04/18/2025 and progressive weight gain.
He is a pleasant 79-year-old male with a history of permanent atrial fibrillation, aortic stenosis with previous evaluation for TAVR with repeat eval currently undergoing prior to this admission(eval in 2022-mean gradient on [facility] 27 and TAVR
not advised), coronary artery disease, status post CABG, recurrent GI bleeds, chronic kidney disease, ICD, anemia, smoker. He had a previous admission to [facility] 03/11/2025 - 03/17/2025 with near syncope and a fall, shock. Hemoglobin 6.7, creatinine
2.6 (baseline 2.0). Diuretics (Lasix, Metolazone, Spironolactone) and Coreg held most of admission and restarted at lower outpatient dose. Required midodrine for BP support. Seen by GI and GI bleed thought to be due to AVMs. Endoscopy showed
multiple gastric AVMs with high risk stigmata treated with epi and APC (argon plasma coagulation). Eliquis resumed 5 days after endoscopy, at lower dose 2.5 mg bid. Patient had repeat echo and right and left heart cath (mean gradient 28) done at
this admission as part of his ongoing TAVR evaluation. Chest CT for TAVR completed as outpatient on 04/16/2025 with IV hydration.
Since this admission his renal function has not recovered and diuresing has been challenging. He was recently started on hemodialysis on 05/09/2025 and seems to be tolerating it as he was sitting OOB in the chair following his morning treatment. He
denies SOB, CP, Palpitations. When seen this am during treatment her was tolerating lying flat in bed. Per nephrology note they do not feel confident that this patient will be able to be dialyzed effectively in the outpatient setting with his
underlying cardiorenal syndrome given his hemodynamic lability with even minimal ultrafiltration. After discussion with the structural heart team the thought is to move forward with inpatient TAVR this Wednesday. Spoke to patient and his sister and
explained the procedure. Allowed for and answered questions.
Past Medical History
Past Medical History: Atrial Fib, CAD, CHF, COPD and Other (ICM EF 31% by echo 03/12/2025, JAY 0CKD stage 4, GIB, Carotid disease, DM type 2, Gout, tobacco abuse (quit 3 weeks))
Past Surgical History
Past Surgical History: CABG (CABG x4 2001) and Other (Left CEA 2012, Medtronic single chamber ICD 2017)
Dental History
Regular dental care. Last visit 04/18/2025.
Family History
Mother: N/A
Father: N/A
Social History
Alcohol: None
Drug: None
Tobacco: Smoker (60+year history, quit with this admission)
Personal:
Living: With Spouse
Allergies
Allergy/AdvReac Type Severity Reaction Status Date / Time
grass pollen Allergy SNEEZING Verified 04/18/25 15:57
ragweed pollen Allergy NASAL Verified 04/18/25 15:57
CONGESTION
rosiglitazone (From Avandia) Allergy pt denies Verified 04/18/25 15:57
allergy
Home Medications
�Medication �Instructions �Recorded �Confirmed �Type
cyanocobalamin (vitamin B-12) 1,000 mcg PO DAILY Supplement 10/04/19 04/18/25 History
1,000 mcg tablet
atorvastatin 80 mg tablet 80 mg PO DAILY High cholesterol 01/01/23 04/18/25 History
insulin aspart U-100 100 unit/mL 3 unit (0.03 mL) SC AC #15 mL 03/16/25 04/18/25 Rx
(3 mL) subcutaneous pen (Novolog
FlexPen U-100 Insulin aspart)
midodrine 5 mg tablet 5 mg PO TID@0800,1300,1800 #90 tabs 03/16/25 04/18/25 Rx
furosemide 40 mg tablet 160 mg PO BID AT 0800,1600 Heart 04/16/25 04/18/25 History
Failure
insulin glargine 100 unit/mL (3 14 unit SC HS Diabetes 04/16/25 04/18/25 History
mL) subcutaneous pen (Lantus
Solostar U-100 Insulin)
potassium chloride 20 mEq 20 meq PO BID Supplement 04/16/25 04/18/25 History
tablet,extended release(part/cryst)
allopurinol 300 mg tablet 150 mg PO BID Gout 04/18/25 04/18/25 History
apixaban 5 mg tablet (Eliquis) 5 mg PO BID Blood Clot 04/18/25 04/18/25 History
Prevention/Tx
brimonidine 0.1 % eye drops 1 drp BOTH EYES BID@1200,2200 Eye 04/18/25 04/18/25 History
Condition
tvmyvgyj-fomiqb-ykvii extract 5 1 cap PO DAILY Supplement 04/18/25 04/18/25 History
mg-6 mg-150 mg capsule (Fruit and
Vegetable Daily)
metolazone 2.5 mg tablet 2.5 mg PO DAILY Heart Failure 04/18/25 04/18/25 History
omeprazole 40 mg capsule,delayed 40 mg PO BID Gastrointestinal Issue 04/18/25 04/18/25 History
release
therapeutic multivitamin 1 tab PO DAILY Supplement 04/18/25 04/18/25 History
zolpidem 5 mg tablet (Ambien) 5 mg PO HSPRN PRN sleep 04/18/25 04/18/25 History
brinzolamide See Rx Instructions .Route 04/20/25 04/20/25 History
.COMPLEX astigmatism
STS%
STS %: 28.3%
Review of Systems
-
History Source: Patient
General: Reports Weight Gain
HEENT: Reports No Symptoms
Respiratory: Reports No Symptoms
Cardiac: Reports Known Vascular Disease and Edema; Denies Palpitations, Nausea, Vomiting or Diaphoresis
Abdomen/GI: Reports No Symptoms; Denies Reflux, Indigestion, Nausea or Vomiting
: Reports No Symptoms; Denies Dysuria
Musculoskeletal: Reports No Symptoms
Skin: Reports No Symptoms
Neurological: Reports No Symptoms; Denies CVA, TIA, Syncope or Dizzy
Vascular: Reports No Symptoms
Physical Exam
Vital Signs
Temp 97.5 F 05/09/25 11:49
Temp route: Oral 05/09/25 11:49
Pulse 85 05/09/25 12:00
Rhythm: Atrial fibrillation 05/09/25 08:05
With- PVC's Monomorphic, PVC's Couplets 05/09/25 08:05
Resp Rate 16 05/09/25 11:49
Blood pressure 107/53 05/09/25 11:58
Blood pressure extremity used: Left upper arm 05/09/25 11:49
Position: Sitting 05/09/25 11:49
MAP (cuff-Delores Monitor) 68 05/09/25 11:58
SaO2 94 05/09/25 11:49
Nasal Cannula flow liters per minute 2 05/09/25 13:24
Oxygen Mode of Delivery Room air 05/09/25 08:05
Other oxygen comment weaning as tolerated 04/24/25 10:44
Pulse Ox at Rest 95 05/09/25 13:24
Acceptable pain level during hospitalization? 0 04/18/25 15:54
Can the patient verbally communicate their pain? Yes 05/09/25 08:05
Pain scale ratin 05/09/25 08:05
Actual Weight 72.2 kg 05/09/25 04:34
Body Mass Index (BMI) 26.5 05/09/25 04:34
Supine- Blood Pressure 118/65 05/05/25 10:12
Supine- Pulse 76 05/09/25 13:24
Sitting- Blood Pressure 101/73 05/09/25 13:24
Heart rate after activity 87 05/09/25 13:24
Blood pressure after activity 102/62 05/09/25 13:24
Oxygen Saturation with Activity 93 05/09/25 13:24
Labs
05/09/25 08:20
05/09/25 08:20
Troponin I 0.087 ng/ml H* 04/19/25 09:35
Kxo-L-Lyhwivedtun Pept 91101 pg/ml 04/18/25 18:44
Arterial Blood Gases
pH 7.50 (7.35-7.45) H 04/29/25 13:42
pCO2 48 mmHg (35-48) 04/29/25 13:42
pO2 74 mmHg (83-108) L 04/29/25 13:42
HCO3 37.4 mmol/L (21-28) H 04/29/25 13:42
Base Excess 12.6 mmol/L 04/29/25 13:42
ABG O2 Sat (Measured) 96.5 % (94-98) 04/29/25 13:42
Sodium 127 mMOL/L (136-145) L 04/29/25 13:42
Potassium 3.4 mMOL/L (3.5-5.1) L 04/29/25 13:42
O2 Delivery Level Nc 04/29/25 13:42
Diagnostic Studies
03/12/2025 Echocardiogram:
CONCLUSIONS
Normal left ventricular chamber size. Mild concentric left ventricular
hypertrophy. Moderately reduced left ventricular systolic function. Global
hypokinesis. Left ventricular ejection fraction is 31% by Cuellar's biplane
method of discs. Diastolic function indeterminate.
Thickened mitral valve leaflets. Mitral annular calcification. Mitral valve
opens normally. Moderate mitral regurgitation.
Severely dilated left atrium. Indexed LA volume is severely abnormal (> 48
mL/m2).
Trileaflet aortic valve. Thickened aortic valve with restricted leaflet motion.
Severe aortic stenosis. Peak/mean gradients across the valve are 41/22 mmHg.
Using an LVOT of 2.0 cm the calculated valve area is 0.7 cm2. Mild aortic
regurgitation.
Structurally normal tricuspid valve. Tricuspid valve opens normally. Moderate
to severe tricuspid regurgitation. Estimated pulmonary artery pressure of 72
mmHg, assuming a right atrial pressure of 15 mmHg.
Normal right atrium.
Normal right ventricular size and function.
Since echo 10/09/2024 which was reviewed, ejection fraction may have decreased
from 35-40% to 31%.
03/15/2025 Cardiac Cath:
CORONARY ANGIOGRAPHY
Dominance: Right
LEFT MAIN: Tapers distally
LEFT ANTERIOR DESCENDING: The LAD arises from the left main and is 100% occluded in its midportion. The NAVAS-LAD vs diagonal is patent to either the mid LAD or more likely a diagonal branch. There is antegrade and retrograde filling. Retrograde
the LAD is diffusely diseased. Antegrade the NAVAS fills a small diagonal branch. There are well developed septal collaterals from the RCA noted during angiography of SVG-PDA.
RAMUS : Occluded at its origin. The distal vessel fills via a patent free radial-ramus graft
CIRCUMFLEX: 100% occluded at its origin
RIGHT CORONARY ARTERY: Known to be occluded with patent SVG-PDA
GRAFT ANGIOGRAPHY:
1. NAVAS-LAD: The NAVAS graft is anastomosed to either to the mid LAD or diagonal branch. There are well developed septal collaterals from the RCA to the [place] LAD which fills via faint collaterals
2. Free radial-Ramus: Widely patent
3. SVG-OM: 100% occluded
4. SVG-PDA: Degenerative disease is noted with 50-55% stenosis in the mid body of the SVG to the PDA which appears angiographically stable
LEFT VENTRICULOGRAPHY: Not done
SEDATION: 48 minutes of procedural sedation was utilized. An independent medical imaging technologist was present to assist with and help manage the patient's level of consciousness and physiologic status.
RADIATION SUMMARY: Fluoro Time (min): 10.1, Dose (mGy): 512, DAP (Gy.cm2) : 42.4
Closure Device: None
CONCLUSION
1. Hemodynamically moderate-severe aortic stenosis
2. Stable coronary anatomy
Exam
General: Well Developed and Comfortable
HEENT: Normocephalic, Moist Mucous Membranes and PERRLA
Neck: Trachea Midline
Respiratory: Crackles (left base) and Other (decreased breath sounds bilaterally R>L)
Cardiac: Irregular Rhythm and Murmur (Grade III/ ANA)
GI: Soft, Non Tender, Non Distended and Normal Bowel Sounds
Rectal: Deferred by Provider
Skin: Warm, Dry and Other (Significant discoloration bilateral LE below the knees)
Neuro: AO x 3 and No Motor Deficits
Extremities: Negative Lower Level Edema
Psych: Calm
Assessment / Plan
-
Procedure Type:�Isolated AVR
Perioperative Outcome Estimate %
Operative Mortality 28.3%
Morbidity & Mortality 45.6%
Stroke 5.69%
Renal Failure NA
Reoperation 7.87%
Prolonged Ventilation 42.2%
Deep Sternal Wound Infection 0.439%
Long Hospital Stay (>14 days) 27.7%
Short Hospital Stay (<6 days)* 4.12%
Acute on chronic HFrEF:
- Monitor I's and O's and daily weights
- Monitor electrolytes with diuresis and replete as needed
- Diurese per cardiology
JAY on CKD stage IV:
- Suspect due to cardiorenal syndrome
- Renal function appears to have stabilized now with mild improvement
- Baseline creatinine appears to be around 2.0
- receiving daily HD
- Appreciate Nephrology input, not clear he will tolerate OP without TAVR
IDDM:
- Home regimen is Lantus 14 units at night and NovoLog 3 units with meals
- Have been giving Lantus 10 units at night and NovoLog 3 units with meals for the past few days, we will increase Lantus back to home dose of 14 units for better control
- Continue Accu-Cheks, additional sliding scale as needed
- Adjust regimen as needed per Hospitalists
- Diabetic diet
A-fib:
- Chronic
- Currently rate controlled
- anticoagulation with Eliquis, hold until after procedure Wednesday
Severe-critical Aortic stenosis:
- Plan inpatient TAVR Wednesday
- POD #1/#30 echocardiogram
- Consult cardiac rehab
- Eliquis on hold, load with ASA and 81mg Wednesday.
- Resume Eliquis post TAVR at appropriate renal dose.
Data Reviewed
-
EKG: Report Reviewed by me
Ultrasound Coordinator: Report Reviewed by me and Discussed with Physician
Echo: Report Reviewed by me and Discussed with Physician
CT Scan: Report Reviewed by me and Discussed with Physician
Labs: Labs Reviewed by me and Discussed with Physician
Old Records: Reviewed
Total Time Spent with Patient (in minutes): 50
[2025-05-09 15:52] LABS: Urine Character Cloudy (Clear)
[2025-05-09 16:19] LABS: Urine Red Blood Cell 0-2 /HPF (0-2); Urine Squamous Cell 0-2 /LPF (Few); Urine White Cell 50-60 /HPF (0-5)
[2025-05-09 17:10] LABS: Glucose - Point of Care 225 mg/dl (70-99)
[2025-05-09] MEDS: ZYLOPRIM 100 MG PO (17:32)
[2025-05-09] MEDS: NOVOLOG FLEXPEN-MODERATE RESISTANCE 3 UNITS SC (17:33)
[2025-05-09 21:54] LABS: Glucose - Point of Care 169 mg/dl (70-99)
[2025-05-09] MEDS: LANTUS 0.18 UNITS SC (22:22)
[2025-05-09] MEDS: REMOVE NICOTINE PATCH 1 PATCH REMOVE (22:23)
[2025-05-09] MEDS: MELATONIN 3 MG PO (22:23)
--- NOTE | 2025-05-09 22:34 | PTCARENOTE ---
Received patient at change of shift. Afib with a BBB on the monitor, HR in the 60s. VSS on 2L nasal cannula. Disoriented to time, bed alarm in place. No complaints from pt at this time, call moreno within reach.
[2025-05-10] VITALS (25 sets, daily range): BP systolic 88–124; BP diastolic 51–77; BMI 26.4
--- NOTE | 2025-05-10 07:35 | W.PN.CARDCBS ---
Addendum entered and electronically signed by Ivan Iyer MD 05/10/25 17:21:
Attending addendum: I met with the patient and his and had a long discussion re: TAVR. Few other good options. Will likely proceed with TAVR. Risks reviewed.
Original Note:
Today's Communication / Plan
-
TEG this afternoon. tentatively planning for TAVR in AM
eliquis on hold
Cr improving. HD per nephrology
Impression / Plan
-
PCP: Dr. Eason
Primary Casting Repairer: Dr. Sutton
Impression:
Admitted 04/18/2025 with acute CHF and JAY
Acute on chronic HFrEF, proBNP 18,500
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
Recent admission for shock, anemia, GI bleed 03/11/2025 until 03/17/2025
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
Severe since 2019
s/p TAVR work-up with MPG 27 at time of cath and not recommended TAVR 01/2023
RHC/LHC 03/15/2025 MPG 28 mmHg, stable CAD, current TAVR eval in process
ICM EF 31%, echo 03/12/2025
History of reduced ejection fraction heart failure with recovered EF
CAD status [place] [facility]Gx[place] [facility] [place]
carotid disease s/p left CEA in 2012
s/p Medtronic single chamber ICD 2017
Persistent Afib
Chronic Eliquis OAC
DM 2
Gout
Smoker, ongoing tobacco use
Previous CV studies:
Echo 08/23/2019: EF 30-35%, global hypokinesis with inferolateral, inferior and basal septal akinesis, mild MR, sev pressure 47/28 mmHg
ECHO 12/03/22: EF 50%, mild LVH, stage III diastolic dysfunction, mild MR, severe with peak/mean gradients 54/28 mmHg, KAELYN 0.8 cm�, trace AR, mild TR, PAP 64 mmHg, mild dilation of aorta measuring 4.0 cm
Echo 10/09/2024: EF 35 to 40%, moderate eccentric MR, severe peak/mean 60/34 mmHg and KAELYN 0.8 cm sq, mild aortic insufficiency, moderate TR with PAP 64 mmHg
Echo 03/12/2025: EF 31%, global hypokinesis, moderate MR, severe peak/mean 41/22 mmHg and KAELYN 0.7 cm sq, mild aortic regurgitation, moderate to severe TR with PAP 72 mmHg
Right heart cath/left heart cath 03/15/2025: RA 14, PA 67/28, PCWP 24, LVEDP 18, CO/CI 5.4/3.0, aortic valve with mean pressure gradient 28 mmHg, KAELYN 0.95 cm�.
LAD 100% occluded midportion, NAVAS to LAD versus diagonal is patent to either mid LAD or diagonal branch with anterograde and retrograde filling well-developed septal collaterals from RCA noted. Ramus occluded at origin distal fills via patent free
radial to ramus graft. Circumflex 100% occluded at origin, RCA occluded with patent SVG to PDA. Graft angiography: NAVAS as above, free radial to ramus widely patent, SVG to OM1 100% occluded, SVG to PDA 50 to 55% stenosis in the mid
[facility] 05/03/2025: Hemodynamics (mmHg):RA (m) : 16, RV (s/d,m) : 68/10, 13, PA (s/d, m) : 67.35, 47, PCWP (m) : 39 with V waves up to 47, PA saturation: 57.9% on 8 L of oxygen via nasal cannula, AO saturation: 88% on 8 L of oxygen via nasal cannula
using noninvasive pulse ox, RA saturation: 60% on 8 L of oxygen via nasal cannula. Cardiac Output : 5.03 L/min by Tejas calculation, Cardiac Index : 2.75 L/min/m-2 by Tejas calculation Systemic vascular resistance: 1208 dsc^(-5), Pulmonary vascular
resistance: 1.59 huang unit
Plan:
- He was admitted with acute CHF and JAY. Also with ischemic cardiomyopathy and severe .
- He has been diuresed with assistance of nephrology. he was transitioned to po lasix 80mg BID by nephrology 05/08. HD initiated 05/08 and Cr down to 1.9 today. weight downtrending. there are concerns that patient will not tolerate HD if not improved
as suspected to be fueling cardiorenal syndrome
- tentatively planning for TAVR in AM. checking TEG level today
- patient without complaints this morning. reports breathing stable
- s/p R thoracentesis 05/08 for 1600cc. also had R thora 04/30/25.
- GDMT of CM limited by hypotension and JAY. continue toprol 12.5mg daily and midodrine 5mg TID.
- in rate controlled afib with occasional vpacing and PVCs on review of tele overnight
- for now, still meets criteria for eliquis 5mg BID as age<80 and weight>60kg. on hold as of 05/09 PM in prep for possible TAVR in AM
- continue PT/OT
- d/w nursing
HPI 04/19/2025:
History of Present Illness:
Patient came to the ER 04/18/2025 with weight gain and increasing lower extremity edema despite up titration of outpatient diuretics. He is a 79-year-old male with a history of permanent atrial fibrillation, aortic stenosis with previous evaluation
for TAVR with repeat eval currently undergoing( eval in 2016, 2022-mean gradient on [facility] 27 and TAVR not advised), coronary artery disease, status post CABG, recurrent GI bleeds, chronic kidney disease, ICD, anemia, smoker. He had a previous
admission to [facility] 03/11/2025 - 03/17/2025 with near syncope and a fall, shock. Hemoglobin 6.7, creatinin e 2.6 (baseline 2.0) diuretics (Lasix, Metolazone, Spironolactone) and Coreg held most of admission and restarted at lower outpatient dose.
Required midodrine for BP support. Seen by GI and GI bleed thought to be due to AVMs. 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 Eliquis resumed 5 days after endoscopy, at
lower dose 2.5 mg bid. Repeat TAVR evaluation performed with echo and right and left heart cath (mean gradient 28)and patient is being considered for TAVR, structural heart team plans to discuss him at meeting tomorrow.
CT TAVR 04/16/2025 with measurements to be added as separate addendum, had moderate right and small left pleural effusion
Patient was discharged on 03/31/2025 furosemide 40 mg twice daily, midodrine 5 mg 3 times daily, apixaban 2.5 mg twice daily (dose lowered due to CKD) and atorvastatin. Metolazone, spironolactone, and carvedilol were all held.
Weight progressively increasing since last discharge on 03/17/2025, weight at that time 151 pounds, weight on admission 04/18/2025 180 pounds. Outpatient Lasix has been uptitrated over past month to 120 mg twice daily and metolazone restarted at 2.5
mg M-W-, initially with stable creatinine at 1.56 on 04/02/2025, but 2.1 on 04/18/2025 and progressive weight gain.
Progress Note - Casting Repairer
Subjective
Date of Service: May 10, 2025
Reports breathing is okay. States he is not sleeping well
Objective
Labs:
Labs
Hgb 10.1 g/dL (13.0-18.0) L 05/09/25 08:20
Hct 30.8 % (39.0-52.0) L 05/09/25 08:20
Plt Count 159 10^3/uL (130-400) D 05/09/25 08:20
Sodium 133 mmol/L (135-145) L 05/09/25 08:20
Potassium 3.8 mmol/L (3.5-5.1) 05/09/25 08:20
BUN 46 mg/dl (9-20) H 05/09/25 08:20
Creatinine 1.9 mg/dL (0.7-1.3) H 05/09/25 08:20
Glucose 149 mg/dl (70-99) H 05/09/25 08:20
Vital Signs and I&O:
Vital Signs
Temp Pulse Resp BP Pulse Ox
97.6 F 66 20 112/60 94
05/10/25 07:22 05/10/25 04:00 05/10/25 07:22 05/10/25 03:32 05/10/25 07:22
Vital Signs
Temp Pulse Resp BP Pulse Ox
97.6 F 66 20 112/60 94
05/10/25 07:22 05/10/25 04:00 05/10/25 07:22 05/10/25 03:32 05/10/25 07:22
Intake & Output
05/07/25 05/08/25 05/09/25 05/10/25
07:59 07:59 07:59 07:59
Intake Total 1040 / 1040 360 / 360 720 / 720 800 / 800
Output Total 1000 / 1000 1450 / 1450 650 / 650 900 / 900
Balance 40 / 40 -1090 / -1090 70 / 70 -100 / -100
Physical Exam
Physical Exam
GEN: No distress, awake, alert, oriented x3. sitting in chair. appears brighter today
HEENT: supple, anicteric, mmm, EOMI
LUNGS: Few crackles at bases
CV: Irreg, S1/S2, 2/6 syst LSB
ABD: soft, BS+, NT/ND
EXT: No cyanosis, clubbing. 1+ edema of B/L LE
NEURO: Gross non-focal
SKIN: Warm, pink, dry. No rash
--- NOTE | 2025-05-10 07:37 | W.PN.HOSP.TC ---
Today's Communication/Plan
-
-HD today
-TAVR tmrw am
-TEG today
-Holding eliquis
-80mg lasix PO
-Continue metoprolol succinate (12.mg daily), midodrine (5mg tid)
-Follwo cards, renal recs
Assessment / Plan
Assessment / Plan
Robert An is a 79yo M with a pmh notable for CAD (s/p CABG and stents), HFrEF (30 LVEF %), severe , A-fib (on Eliquis, has ICD), carotid artery stenosis (status post left CEA), IDDM, and CKD stage IIIb who presented with increasing lower
extremity edema and abrupt weight gain (20lbs > dry weight), found to have acute on chronic HFrEF & cardiorenal syndrome w pleural effusions, now s/p therapeutic thoracentesis x2 (04/30, 05/08), s/p RHC (05/03), s/p HD x2, following renal fxn & volume
status in advance of inpt TAVR.
#Acute on chronic HFrEF (30% EF)
#Severe low gradient aortic stenosis
#Moderate mitral regurg
S/p CT TAVR on 04/28. RHC on 05/03 showed elevated filling pressures across all chambers w normal CO. Pt at dry weight today, 72kg. Carotid US (05/10): 'Calcified plaque within the right carotid bulb, measurements suggestive of less than 50% stenosis as
per modified Society of Radiologists in Ultrasound consensus criteria (IAC carotid criteria white paper, 2020). No significant progression compared to prior study. Left carotid endarterectomy site is widely patent.'
- Continue PO lasix 80mg bid (05/09-) (s/p IV lasix 05/03-05/08; s/p acetazolamide 04/28-; lasix 04/27-; metolazone 04/23-)
- TEG this afternoon in advance of tentative TAVR tomorrow am
- Per cardiac surg, Eliquis on hold, load with ASA and 81mg Wednesday morning in advance of TAVR
- Continue metoprolol succinate (12.mg daily), midodrine (5mg tid)
- Continue to monitor daily weights
- Encourage OOB with PT/OT
#JAY on CKD stage IIIb
#Cardiorenal syndrome
#Alkalosis
#Hyponatremia
S/p HD (05/08 & 05/09); temporary IJ catheter placed. Cr downtrending 05/09 to 1.9 from 2.5, from 2.8-3.0 range since 05/01. Labs still pending this am at time of note.
- Plan for third round of HD today
- Continue PO lasix 80mg BID (05/08- ; s/p IV lasix 80mg bid 05/04-05/08)
- Trend CMP, replete lytes as needed
- Holding KCl
- Switch to tunneled HD cath when possible
- [facility] mgmt [facility] [place] [facility]
#Acute hypoxic respiratory failure
#Bilateral pleural effusions, R>L
S/p R-sided thoracentesis (04/30): transudative fluid, 1850 cc, / CHF. S/p therapeutic thora (05/08): 1600 cc of straw colored pleural fluid. Remains on 2L NC, O2 sat 94%. Failed NC wean yesterday 05/09.
- Attempt to wean O2 NC as tolerated, maintain O2 sat>92%
- Incentive spirometry
#Insomnia
Pt states he hasn't been able to sleep, requesting something to help. Pt has been receiving PRN zolpidem 5mg nightly (home med).
- 3mg melatonin HS
- Continue PRN zolpidem 5mg
Chronic conditions:
#A-fib: Chronic, currently rate controlled. Eliquis
#IDDM: Insulin dosing to match home dose (lantus 14, novolog 3) > increased to 18, 5 given hyperglycemia inpt (05/08)
#Global
- DVT prophylaxis: Lizbeth, jena 05/10 in advance of TAVR
- CODE STATUS: Full code
- Dispo: Likely to home (lives at home w ), evaluate when stable, dispo likely to rehab after inpt TAVR; PT/OT following
Anticipated Discharge: 24 - 48 hours
Subjective/Interval History
-
Date of Service: May 10, 2025
Patient sitting up in bed eating breakfast, conversant. States that he is doing well, repeats that he is ready to go. Repeats understanding of TAVR planning for tomorrow. Denies any dyspnea, said that he was not feeling dyspneic on NC weaning
trial yesterday. No complaints.
Objective Data
-
Labs:
Laboratory Results
05/10/25
06:00
WBC Pending
Hgb Pending
Hct Pending
Plt Count Pending
PT Pending
INR Pending
APTT Pending
Sodium Pending
Potassium Pending
Chloride Pending
Carbon Dioxide Pending
BUN Pending
Creatinine Pending
Glucose Pending
Calcium Pending
Total Bilirubin Pending
AST Pending
ALT Pending
Alkaline Phosphatase Pending
Vital Signs:
Vital Signs
Temp Pulse Resp BP Pulse Ox
97.6 F 66 20 112/60 94
05/10/25 07:22 05/10/25 04:00 05/10/25 07:22 05/10/25 03:32 05/10/25 07:22
I&O
05/09/25 05/10/25 05/11/25
06:59 06:59 06:59
Intake Total 720 / 720 800 / 800
Output Total 650 / 650 900 / 900
Balance 70 / 70 -100 / -100
Review of Systems
-
Unable to obtain full review of systems at this time due to: Dementia
History Source: Patient
Constitutional: Reports No Symptoms
Respiratory: Reports No Symptoms
Cardiac: Reports No Symptoms
Abdomen/GI: Reports No Symptoms
Physical Exam
-
General: Conversant and Other (Thin, elderly appearing)
HEENT: Normocephalic, Atraumatic, Anicteric and Other (IJ HD catheter in place)
Respiratory: Clear to Auscultation and Non Labored Respirations
Cardiac: Regular Rhythm
GI: Nondistended
Musculoskeletal: No Edema
Skin: Warm and Dry
Neuro: Awake and Alert
Psych: Calm and Apparent Dementia
Data Reviewed
-
Total Time Spent with Patient (in minutes): 10
Critical Care Time (in minutes): 30
Labs: Labs Reviewed by me
[2025-05-10 07:40] LABS: Glucose - Point of Care 126 mg/dl (70-99)
[2025-05-10] MEDS: NOVOLOG FLEXPEN 5 UNITS SC ×3 (07:53→17:19)
[2025-05-10] MEDS: NOVOLOG FLEXPEN-MODERATE RESISTANCE SC (09:08)
[2025-05-10] MEDS: LIPITOR 80 MG PO (09:08)
[2025-05-10] MEDS: NICODERM TRANSDERMAL 14 MG TRANSDERM (09:08)
[2025-05-10] MEDS: PROTONIX 40 MG PO ×2 (09:08→20:50)
[2025-05-10] MEDS: DESENEX/MITRAZOL/ZEASORB 1 APPLIC TOPICAL ×2 (09:09→20:50)
[2025-05-10] MEDS: LASIX 80 MG PO ×2 (09:09→17:18)
[2025-05-10] MEDS: TOPROL XL 12.5 MG PO (09:09)
[2025-05-10] MEDS: ANTIFUNGAL CLEAR 1 APPLIC TOPICAL ×3 (09:09→23:12)
[2025-05-10] MEDS: ASPIRIN 325 MG PO (09:14)
--- NOTE | 2025-05-10 10:45 | PTCARENOTE ---
Assumed care at 7am. Patient in chair. AO x3, WAINWRIGHT, garbled speech, forgetful. Right IJ dialysis catheter intact. Oxygen at 2 liters NC, moist cough, denies shortness of breath, decreased breath sounds otherwise clear. A-fib BBB HR 60-70, AICD left
chest, trace edema to lower legs. Condom catheter, cloudy yellow urine. Walking in room assisted using rolling walker. Fall risk maintained, alarms audible, call moreno in reach
[2025-05-10 11:27] LABS: Glucose - Point of Care 227 mg/dl (70-99)
[2025-05-10] MEDS: NOVOLOG FLEXPEN-MODERATE RESISTANCE 3 UNITS SC (11:28)
[2025-05-10 11:47] LABS: INR 1.42; PT 17.8 Sec (11.4-14.6)
[2025-05-10 11:48] LABS: ALT (SGPT) 15 U/L (0-50); AST (SGOT) 25 U/L (17-59); Albumin 3.1 g/dl (3.5-5.0); Alkaline Phosphatase 116 U/L (38-126); Blood Urea Nitrogen 37 mg/dl (9-20); Calcium 9.3 mg/dl (8.4-10.2); Carbon Dioxide 30 mmol/L (22-30); Chloride 100 mmol/L (98-107); Estimated Creatinine Clearance 29 ml/min; Glucose 168 mg/dl (70-99); Hematocrit 30.6 % (39.0-52.0); Hemoglobin 9.9 g/dL (13.0-18.0); Mean Corp Hgb Conc. 32.4 g/dL (33.0-37.0); Mean Corpuscular Volume 102.7 fL (80.0-94.0); Nucleated Red Blood Cells % 0 % (-); Platelet Count 148 10^3/uL (130-400); Potassium 4.0 mmol/L (3.5-5.1); Red Cell Dist. Width 17.6 % (11.5-14.5); Sodium 133 mmol/L (135-145); Total Protein 6.1 g/dl (6.3-8.2); eGFR 37.82
[2025-05-10 11:48] LABS: APTT 39.0 Sec (23.4-35.0)
[2025-05-10] MEDS: NON-FORMULARY ITEM 1 UNIT BOTH EYES ×2 (13:01→23:12)
[2025-05-10] MEDS: MANNITOL 25% 12.5 GRAMS IV ×2 (13:21→14:25)
[2025-05-10] MEDS: RETACRIT 8000 UNITS IV (13:22)
--- NOTE | 2025-05-10 13:32 | W.PN.NEPH.HD ---
Assessment
-
Patient seen on dialysis
Systolic blood pressure around 100 to current UF
HD via temporary catheter
This will need to be changed to PermCath early next week
Next dialysis will be scheduled for Wednesday
Patient for TAVR tomorrow, discussed with CT surgeon
Progress Note - Hemodialysis
-
Date of Service: May 10, 2025
Duration: 3 hours
Potassium Bath: 3
Calcium Bath: 2.5
Opti-Dialyzer: 160
Ultrafiltration: Other (1 kg as tolerated hemodynamically)
Blood Flow: 300
Dialysate Flow: 600
Heparin: None
EPO: 8000
[2025-05-10] MEDS: HEPARIN 2200 UNITS INTRACATH (15:43)
[2025-05-10] MEDS: NOVOLOG FLEXPEN-MODERATE RESISTANCE 1 UNITS SC (17:19)
[2025-05-10] MEDS: ZYLOPRIM 100 MG PO (17:21)
[2025-05-10 17:23] LABS: Glucose - Point of Care 173 mg/dl (70-99)
--- NOTE | 2025-05-10 22:07 | PTCARENOTE ---
Rec'd pt at change of shift. Pt AAO*3, VSS, and afib on TELE monitor with BBB. Pt denies any pain or discomfort. First round CHG and bed bath complete for upcoming TAVR. PT NPO after midnight for procedure. Pt now resting with call moreno in
reach. See MAR and flowchart for full pt care and assessment.
[2025-05-10 22:42] LABS: Glucose - Point of Care 196 mg/dl (70-99)
[2025-05-10] MEDS: LANTUS SC (23:11)
[2025-05-10] MEDS: MELATONIN 3 MG PO (23:12)
[2025-05-10] MEDS: REMOVE NICOTINE PATCH 1 PATCH REMOVE (23:12)
[2025-05-10] MEDS: LANTUS 0.09 UNITS SC (23:21)
[2025-05-11] VITALS (22 sets, daily range): BP systolic 91–117; BP diastolic 49–75; BMI 26.5
[2025-05-11] MEDS: ASPIR LOW (ENTERIC COATED) 81 MG PO (06:05)
--- NOTE | 2025-05-11 06:07 | W.CVOR.SURPR ---
CVOR Surgeon Immed Pre Op
-
I have examined this patient prior to performance of the scheduled procedure.
The patient's condition is unchanged from the time of the dictated/written History and
Physical and the patient is able to undergo the scheduled procedure.
TF TAVR
Partial Rescue - shocks and CPR only, no sternotomy (redo)
[2025-05-11 06:20] LABS: Hematocrit 33.1 % (39.0-52.0); Hemoglobin 10.6 g/dL (13.0-18.0); Mean Corp Hgb Conc. 32.0 g/dL (33.0-37.0); Mean Corpuscular Volume 103.8 fL (80.0-94.0); Platelet Count 139 10^3/uL (130-400); Red Cell Dist. Width 17.7 % (11.5-14.5)
[2025-05-11 06:49] LABS: Blood Urea Nitrogen 26 mg/dl (9-20); Calcium 8.8 mg/dl (8.4-10.2); Carbon Dioxide 30 mmol/L (22-30); Chloride 101 mmol/L (98-107); Estimated Creatinine Clearance 31 ml/min; Glucose 137 mg/dl (70-99); Potassium 4.1 mmol/L (3.5-5.1); Sodium 136 mmol/L (135-145); eGFR 40.50
[2025-05-11 06:53] LABS: Glucose - Point of Care 122 mg/dl (70-99)
--- NOTE | 2025-05-11 07:21 | W.PN.UPDATE ---
Addendum entered and electronically signed by Cat German MD, Resident 05/11/25 15:15:
Spoke with CT surgery, given patient medically complex and with anticipated stay >48hr, will remain on inpatient med service.
Original Note:
Update Note
Progress Note Update
TAVR this am 8am - transferred to CT surgery service following TAVR
[2025-05-11] MEDS: ANCEF 10 IV (07:45)
[2025-05-11] MEDS: NOVOLOG FLEXPEN SC (07:51)
[2025-05-11] MEDS: NOVOLOG FLEXPEN-MODERATE RESISTANCE SC (07:51)
[2025-05-11 08:58] LABS: ACT-LR - POC 297 Seconds (116-155)
--- NOTE | 2025-05-11 10:19 | W.PN.CT.SURG ---
CT Surgery Operative Note
-
OPERATIVE REPORT
Preoperative Diagnosis: Severe aortic valve stenosis, symptomatic
Postoperative Diagnosis: Same
Procedure(s) Performed: Right trans femoral TAVR with a 29 mm Donovan TAVR valve
Date of Procedure: 05/11/2025
Comorbidities:
1. Severe aortic stenosis, symptomatic
2. Atrial fibrillation on Eliquis
3. Coronary artery disease status s/p CABG
4. Chronic kidney disease IIIb
5. HFrEF with ICD
6. COPD
7. Carotid artery disease
8. DM type II
Cardiac Surgeon: Jorge L Luther MD, MS and Deepa Tejada MD, MPH
Hot Kettle Tender: Ivan Iyer MD
Anesthesia: Conscious Sedation and Local Analgesia
EBL: 100 cc cc
Products: none
Implant: 29 mm Donovan Resilia, SN: [[id number]]
Indication(s) for Procedures: 79-year-old male with symptomatic severe aortic stenosis, low EF with ICD in place and chronic atrial fibrillation on Eliquis. CT-TAVR protocol revealed acceptable anatomy for TAVR access and implantation.
Start time: 0812 hrs
Deployment time: 0854 hrs
End time: 0913 hrs
Radiation Dose (mGy): 293
DAP (cm2.Gy): 30.3
Fluoroscopy time (minutes): 14.1
Contrast volume (ml): 62
TAVR gradient (mmHg): 2 mmHg
Heparin Dose: 7000 units
Protamine Dose: 30 mg
Final Valve Positionin/10
LVEPD: 20 mmHG
Findings: Preoperative LVEF was 30% and was 30% following TAVR without inotropic support. Function was stable from preoperative status without regional wall motion abnormalities or dyskinesia. The aortic valve was well seated without detectable PVL
and mean gradient across the new valve was 2 mmHg. Patient remained stable throughout the case, and chronic A-fib being paced at backup ventricular rate. There was successful placement of 29 mm TAVR valve without acute complications.
Access:
1. Device -R ACTIVATED SLUDGE OPERATOR, perclose x 2 + 8Fr angioseal
2. Pigtail -L ACTIVATED SLUDGE OPERATOR + 6Fr angioseal
3. Transvenous Pacer -L femoral vein
Description of Procedure: The patient was taken to the general labor forklift operator. Their identity and procedure to be performed were verified and they were positioned supine on the general labor forklift operator table. Induction via conscious sedation. The patient was then prepped and
draped from chin to thigh in a sterile fashion. A preoperative time-out was performed with all members of the team present. Arterial and venous access was performed using fluoroscopy and ultrasound guidance with micropuncture and Seldinger
technique. Two perclose devices were used on the device side followed by access to the aorta with a stiff wire to facilitate E-sheath placement. Heparin was given. A stiff straight wire and AL-1 catheter was used to cross the aortic valve. An LVEDP
was measured. The stiff wire was exchanged for an extra stiff coiled tip wire. The valve was prepped and mounted on to the device carrier. An ACT of >250 was achieved. We verified x 3 that the valve was mounted in the correct orientation with the
skirt of the valve directed toward the tip of the device carrier. We advanced the device into the descending thoracic aorta where the valve was them mounted onto the balloon under fluoroscopy. The device was flexed and advanced over the arch into
the root and positioned across the aortic valve. Contrast fluoroscopy was used to visualize the prosthesis across the valve and to guide positioning. A pigtail catheter in the RCC as used as a guide. We aimed to have the bottom of the device marker
at the annular hinge point. The device sheath was pulled back. We performed a quick pre-deployment time out. The pacer was turned on and had capture. Blood pressure fell accordingly, angiography was done to verify the intended final placement and
the valve was deployed with 5 seconds of rapid pacing to nominal volume. The balloon was deflated and the pacer was turned off. We had recovery of vitals. The device carrier was unflexed and positioned back in the descending thoracic aorta. A
transthoracic echocardiogram was performed. The device was removed from the E-Sheath maintaining wire access followed by removal of the E-sheath as we cinched down the perclose devices. There was acceptable hemostasis. The pigtail was withdrawn into
the descending/abdominal and completion aortogram with runoff run-off angiography was performed. There was no stenosis or dissection of bilateral iliofemoral systems. There was acceptable hemostasis of bilateral groins and manual pressure was held
following wire removal. Low dose protamine was administered after checking another ACT.
All instrument, sponge, and needle counts were confirmed to be correct x 2 at the end of the operation. The patient was transferred to the cardiac intensive care unit in stable condition.
I, Dr. Deepa Tejada, was present, scrubbed for, and performed all critical elements of this procedure.
Deepa Tejada MD, MPH
Cardiothoracic Surgeon
[facility]
This operative dictation was created using the [employer] dictation system. Please excuse any grammatical, typographical, or 'sound alike' errors
[2025-05-11 10:26] LABS: Glucose - Point of Care 134 mg/dl (70-99)
--- NOTE | 2025-05-11 11:28 | PTCARENOTE ---
Pt received post TAVR at 1110. Pt awake and alert. Neuro checks WNL. O2 on at 2LNC, sat 98 - 100%. Denies any pain or sob. Bilateral groin sites WNL. Pt resting quietly. BP 105/58.
[2025-05-11 12:00] LABS: Glucose - Point of Care 117 mg/dl (70-99)
[2025-05-11] MEDS: ANTIFUNGAL CLEAR TOPICAL (12:18)
[2025-05-11] MEDS: ANCEF IV (12:19)
[2025-05-11] MEDS: NICODERM TRANSDERMAL 14 MG TRANSDERM (12:25)
[2025-05-11] MEDS: LIPITOR 80 MG PO (12:25)
[2025-05-11] MEDS: PROTONIX 40 MG PO ×2 (12:28→19:43)
[2025-05-11] MEDS: DESENEX/MITRAZOL/ZEASORB 1 APPLIC TOPICAL ×2 (12:29→19:43)
[2025-05-11] MEDS: ALPHAGAN 0.2% EYE DROPS 1 DROP BOTH EYES ×2 (12:31→22:27)
[2025-05-11] MEDS: NON-FORMULARY ITEM 1 UNIT BOTH EYES ×2 (12:34→22:28)
[2025-05-11] MEDS: LASIX PO (12:42)
[2025-05-11] MEDS: TOPROL XL PO (12:43)
--- NOTE | 2025-05-11 13:32 | W.PN.NEPH.PH ---
Today's Communication / Plan
-
HD tomorrow
Assessment/Plan
-
IMP:
Acute on Chronic HFrEF
Abnormal Troponin - Likely secondary to CHF
JAY on CKD 4baseline cr at 2-follows Dr Yates
Paroxysmal atrial fibrillation
Chronic hyponatremia
COPD without exacerbation
Chronic heart failure reduced EF 30%
CAD/CABG x 4 (2001)
Medtronic single-chamber ICD, 2018
Carotid disease -s/p left CEA 2012.
Essential hypertension
DM 2
Severe aortic stenosis -previously declined TAVR workup.
Hyperlipidemia
Gout
h/o GI bleed 03/2025 , known h/o AVMS
traumatic left-sided rib fractures -due to fall last admit in March
Plan:
HD was initiated on 05.08 for persistent hypervolemia
BP has been soft on HD and also with difficulty with UF
now s/p TAVR this am
BP stable
HD tomorrow hoping to see Bp can tolerate for UF
may need to resume lasix at d/c
renal diet and FR
-
-
Date of Service: May 11, 2025
CC / HPI / ROS
-
Chief Complaint:
Acute kidney injury
History of Present Illness:
HD started on 05/08
Hemodynamically stable
Review of Systems:
No fevers or chills
No shortness of breath at rest
Weight stable
Labs
-
Labs:
WBC 8.2 10^3/uL (4.8-10.8) 05/11/25 06:10
RBC 3.19 10^6/uL (4.70-6.10) L 05/11/25 06:10
Hgb 10.6 g/dL (13.0-18.0) L 05/11/25 06:10
Hct 33.1 % (39.0-52.0) L 05/11/25 06:10
Plt Count 139 10^3/uL (130-400) 05/11/25 06:10
Sodium 136 mmol/L (135-145) 05/11/25 06:10
Potassium 4.1 mmol/L (3.5-5.1) 05/11/25 06:10
Chloride 101 mmol/L (98-107) 05/11/25 06:10
Carbon Dioxide 30 mmol/L (22-30) 05/11/25 06:10
BUN 26 mg/dl (9-20) H 05/11/25 06:10
Creatinine 1.7 mg/dL (0.7-1.3) H 05/11/25 06:10
eGFR 40.50 05/11/25 06:10
Glucose 137 mg/dl (70-99) H 05/11/25 06:10
Calcium 8.8 mg/dl (8.4-10.2) 05/11/25 06:10
Phosphorus 3.3 mg/dl (2.5-4.5) 05/08/25 03:12
Npu-N-Jadgnyexxaa Pept 35587 pg/ml 04/18/25 18:44
Albumin 3.1 g/dl (3.5-5.0) L 05/10/25 11:16
Physical Exam
-
Vital Signs:
Vital Signs
Temp Pulse Resp BP Pulse Ox
97.2 F 75 14 105/58 99
05/11/25 11:57 05/11/25 11:57 05/11/25 11:57 05/11/25 11:15 05/11/25 11:57
Cardiovascular:: Regular rate and rhythm
Respiratory:: Bilateral: Coarse
Lung Excursion:: Normal
Abdomen:: Nontender and Soft
Bowel Sounds:: Normal
Extremity Edema:: +1: Bilateral:
Olea Catheter: No
--- NOTE | 2025-05-11 15:15 | W.PN.HOSP.TC ---
Today's Communication/Plan
-
- HD tomorrow
- Holding PO lasix (05/09-05/11) (s/p IV lasix 05/03-05/08; s/p acetazolamide ; lasix ; metolazone )
- Holding metoprolol succinate (12.mg daily), midodrine (5mg tid)
- Encourage OOB with PT/OT
Assessment / Plan
Assessment / Plan
Robert An is a 79yo M with a pmh notable for CAD (s/p CABG and stents), HFrEF (30 LVEF %), severe , A-fib (on Eliquis, has ICD), carotid artery stenosis (status post left CEA), IDDM, and CKD stage IIIb who presented with increasing lower
extremity edema and abrupt weight gain (20lbs > dry weight), found to have acute on chronic HFrEF & cardiorenal syndrome w pleural effusions, now s/p therapeutic thoracentesis x2 (04/30, 05/08), s/p RHC (05/03), s/p HD x2, s/p TAVR (05/11).
#Acute on chronic HFrEF (30% EF)
#Severe low gradient aortic stenosis
#Moderate mitral regurg
S/p CT TAVR on 04/28. RHC on 05/03 showed elevated filling pressures across all chambers w normal CO. Pt at dry weight today, 72kg. Carotid US (05/10): 'Calcified plaque within the right carotid bulb, measurements suggestive of less than 50% stenosis as
per modified Society of Radiologists in Ultrasound consensus criteria (IAC carotid criteria white paper, 2020). No significant progression compared to prior study. Left carotid endarterectomy site is widely patent.' Pt POD#0 s/p TAVR procedure
(05/11).
- Holding PO lasix (05/09-05/11) (s/p IV lasix 05/03-05/08; s/p acetazolamide ; lasix ; metolazone )
- Holding metoprolol succinate (12.mg daily), midodrine (5mg tid)
- Continue to monitor daily weights
- Encourage OOB with PT/OT
#JAY on CKD stage IIIb
#Cardiorenal syndrome
#Alkalosis
#Hyponatremia
S/p HD (05/08, 05/09, 05/10); temporary IJ catheter placed. Cr downtrendin.0>2.9>2.5>1.9>1.7.
- HD tomorrow 05/12
- Trend CMP, replete lytes as needed
- Holding KCl
- Switch to tunneled HD cath when possible
- Case mgmt set up [facility] in [place] for outpatient
#Acute hypoxic respiratory failure, resolving
#Bilateral pleural effusions, R>L
S/p R-sided thoracentesis (04/30): transudative fluid, 1850 cc, / CHF. S/p therapeutic thora (05/08): 1600 cc of straw colored pleural fluid. Failed NC wean yesterday 05/09. Satting 98% on RA today s/p TAVR.
- Incentive spirometry
#Insomnia
Pt states he hasn't been able to sleep, requesting something to help. Pt has been receiving PRN zolpidem 5mg nightly (home med).
- 3mg melatonin HS
- Continue PRN zolpidem 5mg
Chronic conditions:
#A-fib: Chronic, currently rate controlled. Eliquis
#IDDM: Insulin dosing to match home dose (lantus 14, novolog 3) > increased to 18, 5 given hyperglycemia inpt (05/08)
#Global
- DVT prophylaxis: Eliquis, holding for TAVR, restart pending CT surg
- Code status: Full code
- Diet: NPO post-op, advance per CT surg
- Dispo: Likely to home (lives at home w ), evaluate when stable, dispo likely to rehab after inpt TAVR recovery; PT/OT following
Anticipated Discharge: > 48 hours
Subjective/Interval History
-
Date of Service: May 11, 2025
Pt post-TAVR this am. Sleeping in afternoon when seen. On awakening said feeling okay. Denied CP or SOB. Left eye not opening fully, when asked if it felt weird he said yes but that he just woke up. Asked for another blanket. Somnolent.
Objective Data
-
Labs:
Laboratory Results
05/11/25
06:10
WBC 8.2
Hgb 10.6 L
Hct 33.1 L
Plt Count 139
Sodium 136
Potassium 4.1
Chloride 101
Carbon Dioxide 30
BUN 26 H
Creatinine 1.7 H
Glucose 137 H
Calcium 8.8
Vital Signs:
Vital Signs
Temp Pulse Resp BP Pulse Ox
97.2 F 75 14 100/65 98
05/11/25 11:57 05/11/25 13:00 05/11/25 11:57 05/11/25 13:00 05/11/25 13:00
I&O
05/10/25 05/11/25 05/12/25
06:59 06:59 06:59
Intake Total 800 / 800 480 / 480
Output Total 900 / 900 350 / 350
Balance -100 / -100 130 / 130
Review of Systems
-
Unable to obtain full review of systems at this time due to: Dementia
History Source: Patient
Constitutional: Reports No Symptoms
EENT: Reports No Symptoms Reported
Respiratory: Reports No Symptoms
Cardiac: Reports No Symptoms
Physical Exam
-
General: Other (elderly, frail)
HEENT: Normocephalic, Atraumatic, Anicteric and Other (L eye with crusting around eyelashes, not opening fully when waking from sleep )
Respiratory: Non Labored Respirations and Other (O2 NC )
Cardiac: Regular Rhythm
GI: Nondistended
Genito-urinary: Other (condom catheter w minimal dark yellow urine in bag )
Musculoskeletal: No Edema
Neuro: Facial Droop (patient w L eye partway opened, w L side of mouth slightly more downturned than R; pt able to puff out cheeks evenly bilaterally, able to smile wide showing teeth on both sides, able to squeeze both eyes shut, able to raise both
eyebrows w L looking weaker than R) and Other (somnolent, somewhat groggy speech )
Psych: Other (somnolent )
Data Reviewed
-
Total Time Spent with Patient (in minutes): 10
Critical Care Time (in minutes): 30
Medical Tests (Nuc Med, Echo etc): Report Reviewed by me
Labs: Labs Reviewed by me
[2025-05-11] MEDS: ANCEF 5 IV (16:02)
[2025-05-11] MEDS: FLUSH (NSS) 1 FLUSH IV (16:02)
[2025-05-11] MEDS: ANTIFUNGAL CLEAR 1 APPLIC TOPICAL ×2 (16:33→22:28)
--- NOTE | 2025-05-11 16:44 | ITS.CL.TAVR ---
Sr. Media Manager - TAVR Report
TAVR PRocedure
Procedure Report:
TRANSCATHETER AORTIC VALVE REPLACEMENT
Date of Procedure: May 11, 2025
Referring: Dr. Nazario Sutton
Operators: Drs. Ivan Iyer, Jorge L Luther and Deepa Tejada
PROCEDURE PERFORMED:
1. Successful placement of 29 mm Donovan Maria Luisa S3 aortic valve via right common femoral approach.
PREPROCEDURE NYHA CLASS: 4
DESCRIPTION OF PROCEDURE: The patient was referred for assessment of severe symptomatic aortic stenosis and following a comprehensive evaluation it was felt that transcatheter aortic valve replacement (TAVR) would be the most appropriate treatment.
Informed consent was obtained prior to the procedure. A 'time-out' was called and the procedural plan was verbally confirmed by anesthesia, surgery, perfusion, and animal laboratory technician staff.
Arterial was obtained in the left common femoral artery using ultrasound guidance and micropuncture technique. A 6 Fr sheath was inserted. Ultrasound guidance was then utilized to gain access into the left common femoral vein and a 6 Fr sheath was
inserted. Attention was then turned to the right common femoral artery. Ultrasound guidance was utilized and a 5 Slovenian micropuncture sheath was inserted. Angiography through the sheath revealed appropriate positioning of the arteriotomy for
preclosure with 2 Perclose devices. A 0.035 inch J-wire was then reinserted through the micropuncture sheath and a 6 Fr sheath was then inserted.
A transvenous pacemaker wire was then advanced from the left common femoral vein to the right ventricular apex where excellent pacing thresholds were obtained.
An angled pigtail catheter was then advanced through the left common femoral sheath and positioned in the proximal ascending thoracic aorta / right coronary cusp. Angiography was performed to define a coplanar angle facilitating positioning and
delivery of the TAVR device. LIBYAN 10 / CAU 2 appear to be a reasonable coplanar angle.
Pre-closure of the right femoral arteriotomy was then performed using 2 Perclose devices and was followed by placement of an 8 Fr arterial sheath.
An AL-1 catheter was then advanced to the proximal descending thoracic aorta over 0.035' J-tipped guidewire. An Amplatz Extra-Stiff wire was then advanced through the AL-1 catheter to the proximal descending thoracic aorta. The AL-1 catheter was
removed and the supportive wire was utilized to facilitate delivery of the Donovan eSheath and dilator. Heparin, 7000 units, was administered and the ACT was monitored throughout the procedure.
The AL-1 catheter was then readvanced through the Donovan eSheath. The 0.035' Extra-Stiff wire was allowed to drift across the aortic arch and the AL1 was positioned just above the aortic valve. The stenotic leaflets were probed with a Soft-tip
Straight wire. The aortic leaflets were crossed and the AL-1 catheter followed the Soft-tip Straight wire to the mid left ventricle. The wire was removed. Left ventricular end-diastolic pressures was measured at 20 mmHg.
An Amplatz Extra-Stiff wire with a generous curved tip was then advanced to the mid left ventricle. The AL-1 catheter was removed and the Amplatz wire was left in place in order to facilitate delivery of the Donovan delivery system. A 29 mm
Donovan MARIA LUISA S3 valve was brought to the table and the orientation of the valve on the balloon delivery system was confirmed by all operators. The MARIA LUISA S3 valve was advanced through the eSheath and into the proximal descending thoracic aorta.
The MARIA LUISA valve was centered on the delivery balloon and the entire system was retroflexed as across the aortic arch in an LIBYAN projection. The MARIA LUISA S3 delivery system was then advanced across the stenotic aortic leaflets. The pusher was
retracted. Angiography confirmed appropriate positioning of the valve and rapid pacing was undertaken. The 29 mm MARIA LUISA S3 valve was deployed during rapid pacing. Valve deployment was uneventful. Aortography post valve deployment was not
performed given advanced renal disease.
The post valve deployment transthoracic echocardiogram was notable for no aortic insufficiency and a mean aortic valve gradient of 2 mmHg.
The Donovan valve delivery system was removed. The Donovan eSheath was removed and the Perclose knots were advanced to the arteriotomy site with excellent hemostasis. Angiography after the Perclose knots were advanced to the arteriotomy site and
demonstrated good distal runoff. Unfortunately a persistent ooze was noted and an 8 Slovenian Angio-Seal was then deployed with excellent hemostasis
A 6 Slovenian Angio-Seal was then utilized to obtain hemostasis in the left common femoral artery. The temporary pacemaker and 6 Fr sheath were removed and manual pressure was held over the 6 Slovenian femoral venous access.
Protamine was administered to reverse the intravenous anticoagulant.
Fluoro Time: 14.1 min, Dose: 293 mGy, DAP: 30 Gy.cm2
CONCLUSIONS:
1. Severe symptomatic aortic stenosis. Successful deployment of a 29 mm MARIA LUISA S3 valve with no aortic insufficiency
Copy to: Dr. Nazario Sutton
[2025-05-11 18:07] LABS: Glucose - Point of Care 87 mg/dl (70-99)
[2025-05-11 21:38] LABS: Glucose - Point of Care 171 mg/dl (70-99)
[2025-05-11] MEDS: REMOVE NICOTINE PATCH 1 PATCH REMOVE (22:29)
--- NOTE | 2025-05-11 22:45 | PTCARENOTE ---
Received patient at change of shift. V paced on the monitor, HR in the 70s. VSS on 2L of oxygen. Bilateral groins CDI, soft. Doppler pedals. Pt requested PRN medication for sleep, administered as per order, see MAR. No complaints from pt at this
time, call moreno within reach.
[2025-05-12] VITALS (24 sets, daily range): BP systolic 88–142; BP diastolic 48–75; PULSE 75; O2SAT 92; BMI 26.7
--- NOTE | 2025-05-12 01:34 | W.PN.CT ---
Today's Communication / Plan
-
-pod #1
-no issues overnight
-a-fib with v-pacing overnight
-HD today
-last Eliquis on 05/09 - held until possible need for permacath is evaluated by Renal
-? Echo Wednesday
-current meds (Eliquis, Lipitor, Protonix)
-encourage IS, OOB
Assessment / Plan
-
- Severe symptomatic aortic valve stenosis- s/p Right trans femoral TAVR with a 29 mm Donovan TAVR valve on 05/11/25, pod #1
- LVEPD: 20 mmHG
- Intraop TTE: LVEF was 30% pre and following TAVR without regional wall motion abnormalities or dyskinesia. The aortic valve was well seated without detectable PVL and mean gradient across the new valve was 2 mmHg.
- HD was initiated on 05/08 for persistent hypervolemia
- Hypotension on HD with difficulty with UF
- Chronic atrial fibrillation on
- Coronary artery disease status s/p CABGx4 in 2001
- Chronic kidney disease IIIb
- Chronic systolic CHF
- ICM, s/p ICD (MDT)
- COPD
- Carotid artery disease, s/p L CEA 2012
- DM type II
- BPH
- Gastric AVMs/recent GIB
- Gout
Discussed patient care with: Nursing and Care Team
Subjective
-
Date of Service: May 12, 2025
Objective Data
-
PT 17.8 Sec (11.4-14.6) H 05/10/25 11:15
INR 1.42 05/10/25 11:15
APTT 39.0 Sec (23.4-35.0) H 05/10/25 11:15
Vital Signs
Vital Signs
Temp Pulse Resp BP Pulse Ox
98.3 F 75 18 103/50 95
05/11/25 22:34 05/11/25 21:00 05/11/25 22:34 05/11/25 19:01 05/11/25 22:34
CT Intake/Output/Weight
05/11/25 05/11/25 05/12/25
06:59 18:59 06:59
Intake Total 480 / 480
Output Total 350 / 350
Balance 130 / 130
SaO2: 95
Physical Exam
-
General: Awake and AOx3
Cardiovascular: Regular rate & rhythm (v-paced), No Murmurs and No Rub
Respiratory: Clear
Incision: Other (groins are cdi, soft, nontender, no hematoma b/l)
Extremities: Edema +1 (feet b/l)
Data Reviewed
-
Lab Results: Results Reviewed
Medications: Active Meds Reviewed
Chest X-Ray: Report Reviewed and Image Reviewed
ECG: Report Reviewed and Image Reviewed
--- NOTE | 2025-05-12 08:31 | W.PN.CARDCBS ---
Addendum entered and electronically signed by James Harvey MD 05/12/25 10:10:
Patient seen and examined
Agree with RALPH Patterson note
RALPH Patterson plan and assessment
Telemetry paced
TAVR from yesterday noted seen on HD
����Physical Exam
���������������������General:��no apparent distress, not acutely ill
���������������������������Neck:��supple. no meningeal signs. normal psoterior pharynx������������������������
���������������������������Heart:��s1/s2 regular rate and rhythm, no murmur. equal radial pulses.
��������������������������Lungs: ��no acute respiratory distress. clear bilaterally
����������������������Abdomen:�normal bowel sounds. not tender. no CVAT
��������������������������Neuro:��alert and oriented. no focal neurological deficits
������������������������������Skin: ��no rash
�����������������������Psychiatric:�well kept. interactive and cooperative
�����������������������Extremities:��no edema. no calf tenderness. negative homans. good distal pulses
PCP: Dr. Eason
Primary Principal Consulting Engineer: Dr. Sutton
Impression:
Admitted 04/18/2025 with acute CHF and JAY
Acute on chronic HFrEF, proBNP 18,500
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
Recent admission for shock, anemia, GI bleed 03/11/2025 until 03/17/2025
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
Severe since 2018
s/p TAVR work-up with MPG 27 at time of cath and not recommended TAVR 01/2023
RHC/LHC 03/15/2025 MPG 28 mmHg, stable CAD
s/p R TF Donovan TAVR 05/11/25ICM EF 31%, echo 03/12/2025
History of reduced ejection fraction heart failure with recovered EF
CAD status post CABGx4 in setting of [place] in 2001
carotid disease s/p left CEA in 2012
s/p Medtronic single chamber ICD 2017
Persistent Afib
Chronic Eliquis OAC
DM 2
Gout
Smoker, ongoing tobacco use
Previous CV studies:
Echo 08/23/2019: EF 30-35%, global hypokinesis with inferolateral, inferior and basal septal akinesis, mild MR, sev pressure 47/28 mmHg
ECHO 12/03/22: EF 50%, mild LVH, stage III diastolic dysfunction, mild MR, severe with peak/mean gradients 54/28 mmHg, KAELYN 0.8 cm�, trace AR, mild TR, PAP 64 mmHg, mild dilation of aorta measuring 4.0 cm
Echo 10/09/2024: EF 35 to 40%, moderate eccentric MR, severe peak/mean 60/34 mmHg and KAELYN 0.8 cm sq, mild aortic insufficiency, moderate TR with PAP 64 mmHg
Echo 03/12/2025: EF 31%, global hypokinesis, moderate MR, severe peak/mean 41/22 mmHg and KAELYN 0.7 cm sq, mild aortic regurgitation, moderate to severe TR with PAP 72 mmHg
Right heart cath/left heart cath 03/15/2025: RA 14, PA 67/28, PCWP 24, LVEDP 18, CO/CI 5.4/3.0, aortic valve with mean pressure gradient 28 mmHg, KAELYN 0.95 cm�.
LAD 100% occluded midportion, NAVAS to LAD versus diagonal is patent to either mid LAD or diagonal branch with anterograde and retrograde filling well-developed septal collaterals from RCA noted. Ramus occluded at origin distal fills via patent free
radial to ramus graft. Circumflex 100% occluded at origin, RCA occluded with patent SVG to PDA. Graft angiography: NAVAS as above, free radial to ramus widely patent, SVG to OM1 100% occluded, SVG to PDA 50 to 55% stenosis in the mid
[facility] 05/03/2025: Hemodynamics (mmHg):RA (m) : 16, RV (s/d,m) : 68/10, 13, PA (s/d, m) : 67.35, 47, PCWP (m) : 39 with V waves up to 47, PA saturation: 57.9% on 8 L of oxygen via nasal cannula, AO saturation: 88% on 8 L of oxygen via nasal cannula
using noninvasive pulse ox, RA saturation: 60% on 8 L of oxygen via nasal cannula. Cardiac Output : 5.03 L/min by Tejas calculation, Cardiac Index : 2.75 L/min/m-2 by Tejas calculation Systemic vascular resistance: 1208 dsc^(-5), Pulmonary vascular
resistance: 1.59 huang unit
Plan:
- He was admitted with acute CHF and JAY. Also with ischemic cardiomyopathy and severe .
- He has been diuresed with assistance of nephrology. s/p R thoracentesis 05/08 for 1600cc. also had R thora 04/30/25. HD started 05/08/25, getting session today.
- s/p R TF TAVR 05/11/25. tolerated procedure well
- remains in vpaced rhythm with occasional PVCs/couplets on review of tele overnight
- B/L groin sites soft, NTTP. hgb pending this AM
- echo Monday 05/14
- Cr continues to improve, pending 05/12
- GDMT of CM limited by hypotension and JAY. continue toprol 12.5mg daily and midodrine 5mg TID.
- for now, still meets criteria for eliquis 5mg BID as age<80 and weight>60kg. eliquis remains on hold as planning for permacath placement per nephrology
- continue PT/OT
- d/w nursing
Original Note:
Today's Communication / Plan
-
Post TAVR care
HD today
Follow creatinine trend
Holding Eliquis as planned for permacath per nephrology
Echo Wednesday
Impression / Plan
-
PCP: Dr. Eason
Primary Principal Consulting Engineer: Dr. Sutton
Impression:
Admitted 04/18/2025 with acute CHF and JAY
Acute on chronic HFrEF, proBNP 18,500
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
Recent admission for shock, anemia, GI bleed 03/11/2025 until 03/17/2025
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
Severe since 2018
s/p TAVR work-up with MPG 27 at time of cath and not recommended TAVR 01/2023
RHC/LHC 03/15/2025 MPG 28 mmHg, stable CAD
s/p R TF Donovan TAVR 05/11/25
ICM EF 31%, echo 03/12/2025
History of reduced ejection fraction heart failure with recovered EF
CAD status post CABGx4 in setting of [place] in [place]
carotid disease s/p left CEA in 2012
s/p Medtronic single chamber ICD 2017
Persistent Afib
Chronic Eliquis OAC
DM 2
Gout
Smoker, ongoing tobacco use
Previous CV studies:
Echo 08/23/2019: EF 30-35%, global hypokinesis with inferolateral, inferior and basal septal akinesis, mild MR, sev pressure 47/28 mmHg
ECHO 12/03/22: EF 50%, mild LVH, stage III diastolic dysfunction, mild MR, severe with peak/mean gradients 54/28 mmHg, KAELYN 0.8 cm�, trace AR, mild TR, PAP 64 mmHg, mild dilation of aorta measuring 4.0 cm
Echo 10/09/2024: EF 35 to 40%, moderate eccentric MR, severe peak/mean 60/34 mmHg and KAELYN 0.8 cm sq, mild aortic insufficiency, moderate TR with PAP 64 mmHg
Echo 03/12/2025: EF 31%, global hypokinesis, moderate MR, severe peak/mean 41/22 mmHg and KAELYN 0.7 cm sq, mild aortic regurgitation, moderate to severe TR with PAP 72 mmHg
Right heart cath/left heart cath 03/15/2025: RA 14, PA 67/28, PCWP 24, LVEDP 18, CO/CI 5.4/3.0, aortic valve with mean pressure gradient 28 mmHg, KAELYN 0.95 cm�.
LAD 100% occluded midportion, NAVAS to LAD versus diagonal is patent to either mid LAD or diagonal branch with anterograde and retrograde filling well-developed septal collaterals from RCA noted. Ramus occluded at origin distal fills via patent free
radial to ramus graft. Circumflex 100% occluded at origin, RCA occluded with patent SVG to PDA. Graft angiography: NAVAS as above, free radial to ramus widely patent, SVG to OM1 100% occluded, SVG to PDA 50 to 55% stenosis in the mid
[facility] 05/03/2025: Hemodynamics (mmHg):RA (m) : 16, RV (s/d,m) : 68/10, 13, PA (s/d, m) : 67.35, 47, PCWP (m) : 39 with V waves up to 47, PA saturation: 57.9% on 8 L of oxygen via nasal cannula, AO saturation: 88% on 8 L of oxygen via nasal cannula
using noninvasive pulse ox, RA saturation: 60% on 8 L of oxygen via nasal cannula. Cardiac Output : 5.03 L/min by Tejas calculation, Cardiac Index : 2.75 L/min/m-2 by Tejas calculation Systemic vascular resistance: 1208 dsc^(-5), Pulmonary vascular
resistance: 1.59 huang unit
Plan:
- He was admitted with acute CHF and JAY. Also with ischemic cardiomyopathy and severe .
- He has been diuresed with assistance of nephrology. s/p R thoracentesis 05/08 for 1600cc. also had R thora 04/30/25. HD started 05/08/25, getting session today.
- s/p R TF TAVR 05/11/25. tolerated procedure well
- remains in vpaced rhythm with occasional PVCs/couplets on review of tele overnight
- B/L groin sites soft, NTTP. hgb pending this AM
- echo Monday 05/14
- Cr continues to improve, pending 05/12
- GDMT of CM limited by hypotension and JAY. continue toprol 12.5mg daily and midodrine 5mg TID.
- for now, still meets criteria for eliquis 5mg BID as age<80 and weight>60kg. eliquis remains on hold as planning for permacath placement per nephrology
- continue PT/OT
- d/w nursing
HPI 04/19/2025:
History of Present Illness:
Patient came to the ER 04/18/2025 with weight gain and increasing lower extremity edema despite up titration of outpatient diuretics. He is a 79-year-old male with a history of permanent atrial fibrillation, aortic stenosis with previous evaluation
for TAVR with repeat eval currently undergoing( eval in 2016, 2022-mean gradient on C 27 and TAVR not advised), coronary artery disease, status post CABG, recurrent GI bleeds, chronic kidney disease, ICD, anemia, smoker. He had a previous
admission to [facility] 03/11/2025 - 03/17/2025 with near syncope and a fall, shock. Hemoglobin 6.7, creatinin e 2.6 (baseline 2.0) diuretics (Lasix, Metolazone, Spironolactone) and Coreg held most of admission and restarted at lower outpatient dose.
Required midodrine for BP support. Seen by GI and GI bleed thought to be due to AVMs. 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 Eliquis resumed 5 days after endoscopy, at
lower dose 2.5 mg bid. Repeat TAVR evaluation performed with echo and right and left heart cath (mean gradient 28)and patient is being considered for TAVR, structural heart team plans to discuss him at meeting tomorrow.
CT TAVR 04/16/2025 with measurements to be added as separate addendum, had moderate right and small left pleural effusion
Patient was discharged on 03/31/2025 furosemide 40 mg twice daily, midodrine 5 mg 3 times daily, apixaban 2.5 mg twice daily (dose lowered due to CKD) and atorvastatin. Metolazone, spironolactone, and carvedilol were all held.
Weight progressively increasing since last discharge on 03/17/2025, weight at that time 151 pounds, weight on admission 04/18/2025 180 pounds. Outpatient Lasix has been uptitrated over past month to 120 mg twice daily and metolazone restarted at 2.5
mg --, initially with stable creatinine at 1.56 on 04/02/2025, but 2.1 on 04/18/2025 and progressive weight gain.
Progress Note - Principal Consulting Engineer
Subjective
Date of Service: May 12, 2025
Patient reports not sleeping well. Denies pain
Objective
Labs:
Labs
Hgb 10.6 g/dL (13.0-18.0) L 05/11/25 06:10
Hct 33.1 % (39.0-52.0) L 05/11/25 06:10
Plt Count 139 10^3/uL (130-400) 05/11/25 06:10
PT 17.8 Sec (11.4-14.6) H 05/10/25 11:15
INR 1.42 05/10/25 11:15
APTT 39.0 Sec (23.4-35.0) H 05/10/25 11:15
Sodium 136 mmol/L (135-145) 05/11/25 06:10
Potassium 4.1 mmol/L (3.5-5.1) 05/11/25 06:10
BUN 26 mg/dl (9-20) H 05/11/25 06:10
Creatinine 1.7 mg/dL (0.7-1.3) H 05/11/25 06:10
Glucose 137 mg/dl (70-99) H 05/11/25 06:10
Vital Signs and I&O:
Vital Signs
Temp Pulse Resp BP Pulse Ox
98.6 F 75 18 116/61 97
05/12/25 03:10 05/12/25 04:00 05/12/25 03:10 05/12/25 02:58 05/12/25 03:10
Vital Signs
Temp Pulse Resp BP Pulse Ox
98.6 F 75 18 116/61 97
05/12/25 03:10 05/12/25 04:00 05/12/25 03:10 05/12/25 02:58 09/06/25 03:10
Intake & Output
05/10/25 05/11/25 05/12/25 05/13/25
07:59 07:59 07:59 07:59
Intake Total 800 / 800 480 / 480
Output Total 900 / 900 350 / 350 100 / 100
Balance -100 / -100 130 / 130 -100 / -100
Physical Exam
Physical Exam
GEN: No distress, awake, alert, oriented x3. on HD
HEENT: supple, anicteric, mmm, EOMI
LUNGS: Clear to auscultation anterolaterally
CV: Irreg, S1/S2, 2/6 syst LSB
ABD: soft, BS+, NT/ND
EXT: No cyanosis, clubbing. Trace edema of B/L LE
NEURO: Gross non-focal
SKIN: Warm, pink, dry. No rash. Bilateral groin site soft, nontender to palpation
[2025-05-12 08:47] LABS: Hematocrit 30.4 % (39.0-52.0); Hemoglobin 9.9 g/dL (13.0-18.0); Mean Corp Hgb Conc. 32.6 g/dL (33.0-37.0); Mean Corpuscular Volume 103.1 fL (80.0-94.0); Platelet Count 131 10^3/uL (130-400); Red Cell Dist. Width 17.4 % (11.5-14.5)
--- NOTE | 2025-05-12 08:54 | W.PN.HOSP.TC ---
Today's Communication/Plan
-
- Restart metoprolol succinate (12.5mg daily), midodrine (5mg tid)
- Echo on Wednesday
- Continue tele
- Continue to monitor daily weights
- Encourage OOB with PT/OT
- Holding PO lasix (05/09-05/11) (s/p IV lasix 05/03-05/08; s/p acetazolamide 04/28-; lasix 04/27-; metolazone 04/23-)
- Planning for permacath, likely wednesday
- HD today
- Restart eliquis
Assessment / Plan
Assessment / Plan
Robert An is a 79yo M with a pmh notable for CAD (s/p CABG and stents), HFrEF (30 LVEF %), severe , A-fib (on Eliquis, has ICD), carotid artery stenosis (status post left CEA), IDDM, and CKD stage IIIb who presented with increasing lower
extremity edema and abrupt weight gain (20lbs > dry weight), found to have acute on chronic HFrEF & cardiorenal syndrome w pleural effusions, now s/p therapeutic thoracentesis x2 (04/30, 05/08), s/p RHC (05/03), s/p HD x2, s/p TAVR (05/11).
#Acute on chronic HFrEF (30% EF)
#Severe low gradient aortic stenosis
#Moderate mitral regurg
S/p CT TAVR on 04/28. RHC on 05/03 showed elevated filling pressures across all chambers w normal CO. Pt at dry weight today, 72kg. Carotid US (05/10): 'Calcified plaque within the right carotid bulb, measurements suggestive of less than 50% stenosis as
per modified Society of Radiologists in Ultrasound consensus criteria (IAC carotid criteria white paper, 2020). No significant progression compared to prior study. Left carotid endarterectomy site is widely patent.' Pt POD#1 s/p TAVR procedure
(05/11). Vpaced rhythm overnight w occasional PVCs.
- Restart metoprolol succinate (12.5mg daily), midodrine (5mg tid)
- Echo on Wednesday
- Continue tele
- Continue to monitor daily weights
- Encourage OOB with PT/OT
- Holding PO lasix (05/09-05/11) (s/p IV lasix 05/03-05/08; s/p acetazolamide ; lasix 04/27-; metolazone 04/23-)
#JAY on CKD stage IIIb
#Cardiorenal syndrome
#Alkalosis
#Hyponatremia
S/p HD (05/08, 05/09, 05/10); temporary IJ catheter placed. Cr: 3.0>2.9>2.5>1.9>1.7>2.1.
- HD today
- Trend CMP, replete lytes as needed
- Holding KCl
- Plan for permacath placement (per renal, no need to hold eliquis)
- Case mgmt set up [facility] in [place] for outpatient
#Acute hypoxic respiratory failure, resolving
#Bilateral pleural effusions, R>L
S/p R-sided thoracentesis (04/30): transudative fluid, 1850 cc, 2/2 CHF. S/p therapeutic thora (05/08): 1600 cc of straw colored pleural fluid. Failed NC wean yesterday 05/09. Satting 98% on RA today s/p TAVR.
- Incentive spirometry
#Insomnia
Pt states he hasn't been able to sleep, requesting something to help. Pt has been receiving PRN zolpidem 5mg nightly (home med).
- 3mg melatonin HS
- Continue PRN zolpidem 5mg
Chronic conditions:
#A-fib: Chronic, currently rate controlled. Eliquis
#IDDM: Insulin dosing to match home dose (lantus 14, novolog 3) > increased to 18, 5 given hyperglycemia inpt (05/08)
#Global
- DVT prophylaxis: Eliquis
- Code status: Full code
- Diet: NPO post-op, advance per CT surg
- Dispo: Likely to home (lives at home w ), evaluate when stable, dispo likely to rehab after inpt TAVR recovery; PT/OT following
Anticipated Discharge: > 48 hours
Subjective/Interval History
-
Date of Service: May 12, 2025
Pt this am groggy, said feels 'terrible.' Denies any CP, n/v, diarrhea, abd pain, SOB. States that he just feels terrible b/c he's still in the hospital. Getting HD as we spoke. Per HD tech, pt pulled off condom catheter so urine output not accurate.
Objective Data
-
Labs:
Laboratory Results
05/12/25
08:28
WBC 7.7
Hgb 9.9 L
Hct 30.4 L
Plt Count 131
Sodium Pending
Potassium Pending
Chloride Pending
Carbon Dioxide Pending
BUN Pending
Creatinine Pending
Glucose Pending
Calcium Pending
Vital Signs:
Vital Signs
Temp Pulse Resp BP Pulse Ox
98.6 F 75 18 116/61 97
05/12/25 03:10 05/12/25 04:00 05/12/25 03:10 05/12/25 02:58 05/12/25 03:10
I&O
05/11/25 05/12/25 05/13/25
06:59 06:59 06:59
Intake Total 480 / 480
Output Total 350 / 350 100 / 100
Balance 130 / 130 -100 / -100
Review of Systems
-
Unable to obtain full review of systems at this time due to: Dementia
History Source: Patient
Constitutional: Reports No Symptoms
Respiratory: Reports No Symptoms
Cardiac: Reports No Symptoms
Abdomen/GI: Reports No Symptoms
Physical Exam
-
General: Other (elderly, frail)
HEENT: Normocephalic, Atraumatic and Anicteric
Respiratory: Non Labored Respirations and Other (O2 NC )
Cardiac: Regular Rhythm
GI: Nondistended
Genito-urinary: Other (condom catheter w minimal dark yellow urine in bag )
Musculoskeletal: No Edema
Neuro: Other (somnolent, somewhat groggy speech )
Data Reviewed
-
Total Time Spent with Patient (in minutes): 10
Critical Care Time (in minutes): 35
Labs: Labs Reviewed by me
[2025-05-12 09:53] LABS: Blood Urea Nitrogen 38 mg/dl (9-20); Calcium 8.8 mg/dl (8.4-10.2); Carbon Dioxide 27 mmol/L (22-30); Chloride 100 mmol/L (98-107); Estimated Creatinine Clearance 25 ml/min; Glucose 123 mg/dl (70-99); Potassium 4.0 mmol/L (3.5-5.1); Sodium 133 mmol/L (135-145); eGFR 31.43
[2025-05-12] MEDS: NICODERM TRANSDERMAL 14 MG TRANSDERM (10:03)
[2025-05-12] MEDS: DESENEX/MITRAZOL/ZEASORB 1 APPLIC TOPICAL ×2 (10:03→19:24)
[2025-05-12] MEDS: PROTONIX 40 MG PO ×2 (10:03→19:25)
[2025-05-12] MEDS: ANTIFUNGAL CLEAR 1 APPLIC TOPICAL ×3 (10:16→22:13)
--- NOTE | 2025-05-12 11:10 | W.PN.NEPH.HD ---
Assessment
-
pt seen during HD
vitals stable now post TAVR
UF as tolerated
will plan to change catheter to tunneled catheter on Wednesday-IR notified
no need to hold ELiquis
Has HD unit at [facility]
Progress Note - Hemodialysis
-
Date of Service: May 12, 2025
Duration: 30 minutes and 3 hours
Potassium Bath: 2
Calcium Bath: 2.5
Opti-Dialyzer: 160
Ultrafiltration: Other (1.5-2kg)
Blood Flow: 400
Dialysate Flow: 600
Heparin: no
EPO: no
[2025-05-12 11:16] LABS: Glucose - Point of Care 97 mg/dl (70-99)
[2025-05-12] MEDS: TOPROL XL 12.5 MG PO (11:16)
[2025-05-12] MEDS: LIPITOR 80 MG PO (11:17)
[2025-05-12] MEDS: THERAGRAN 1 TABLET PO (11:17)
[2025-05-12] MEDS: NON-FORMULARY ITEM 1 UNIT BOTH EYES ×2 (11:19→22:13)
[2025-05-12] MEDS: ALPHAGAN 0.2% EYE DROPS 1 DROP BOTH EYES ×2 (13:27→22:13)
[2025-05-12 16:41] LABS: Glucose - Point of Care 110 mg/dl (70-99)
[2025-05-12] MEDS: ZYLOPRIM 100 MG PO (17:59)
--- NOTE | 2025-05-12 18:00 | PTCARENOTE ---
Pt received this am getting dialysis. Pt with no c/o of any pain or sob. O2 decreased to 1LNC, sat 93 - 94%. Assisted oob to the chair for lunch and dinner, tolerated well. Bilateral groin sites WNL.
[2025-05-12] MEDS: ELIQUIS 5 MG PO (19:25)
[2025-05-12 21:07] LABS: Glucose - Point of Care 186 mg/dl (70-99)
[2025-05-12] MEDS: REMOVE NICOTINE PATCH 1 PATCH REMOVE (22:13)
[2025-05-12] MEDS: AMBIEN 5 MG PO (22:15)
--- NOTE | 2025-05-12 22:45 | PTCARENOTE ---
Received patient at change of shift. V paced on the monitor, HR in the 70s. VSS on 1L of oxygen. Bilateral groins CDI, soft. Doppler pedals. Pt requested PRN medication for sleep, administered as per order, see MAR. No complaints from pt at this
time, call moreno within reach.
[2025-05-13] VITALS (7 sets, daily range): BP systolic 117–143; BP diastolic 56–81; PULSE 75; O2SAT 95; BMI 26.9
[2025-05-13 03:09] LABS: Hematocrit 28.0 % (39.0-52.0); Hemoglobin 9.3 g/dL (13.0-18.0); Mean Corp Hgb Conc. 33.2 g/dL (33.0-37.0); Mean Corpuscular Volume 102.6 fL (80.0-94.0); Nucleated Red Blood Cells % 0 % (-); Platelet Count 128 10^3/uL (130-400); Red Cell Dist. Width 17.2 % (11.5-14.5)
[2025-05-13 03:31] LABS: ALT (SGPT) < 10 U/L (0-50); AST (SGOT) 31 U/L (17-59); Albumin 2.8 g/dl (3.5-5.0); Alkaline Phosphatase 119 U/L (38-126); Blood Urea Nitrogen 26 mg/dl (9-20); Calcium 8.6 mg/dl (8.4-10.2); Carbon Dioxide 29 mmol/L (22-30); Chloride 97 mmol/L (98-107); Estimated Creatinine Clearance 31 ml/min; Glucose 133 mg/dl (70-99); Magnesium 1.6 mg/dl (1.6-2.3); Potassium 3.7 mmol/L (3.5-5.1); Sodium 130 mmol/L (135-145); Total Protein 5.6 g/dl (6.3-8.2); eGFR 40.50
[2025-05-13 07:41] LABS: Glucose - Point of Care 166 mg/dl (70-99)
--- NOTE | 2025-05-13 08:39 | W.PN.HOSP.TC ---
Today's Communication/Plan
-
- Echo tomorrow
- Tunneled HD catheter placement tmrw
- Continue metoprolol & midodrine
- Dispo maybe Wed/
Assessment / Plan
Assessment / Plan
Robert An is a 79yo M with a pmh notable for CAD (s/p CABG and stents), HFrEF (30 LVEF %), severe , A-fib (on Eliquis, has ICD), carotid artery stenosis (status post left CEA), IDDM, and CKD stage IIIb who presented with increasing lower
extremity edema and abrupt weight gain (20lbs > dry weight), found to have acute on chronic HFrEF & cardiorenal syndrome w pleural effusions, now s/p therapeutic thoracentesis x2 (04/30, 05/08), s/p RHC (05/03), s/p HD x2, s/p TAVR (05/11).
#Acute on chronic HFrEF (30% EF)
#Severe low gradient aortic stenosis
#Moderate mitral regurg
S/p CT TAVR on 04/28. RHC on 05/03 showed elevated filling pressures across all chambers w normal CO. Pt at dry weight today, 72kg. Carotid US (05/10): 'Calcified plaque within the right carotid bulb, measurements suggestive of less than 50% stenosis as
per modified Society of Radiologists in Ultrasound consensus criteria (IAC carotid criteria white paper, 2020). No significant progression compared to prior study. Left carotid endarterectomy site is widely patent.' Pt POD#2 s/p TAVR procedure
(05/11).
- Continue metoprolol succinate (12.5mg daily), midodrine (5mg tid)
- Echo on Wednesday
- Continue tele
- Continue to monitor daily weights
- Encourage OOB with PT/OT
- Holding PO lasix (05/09-05/11) (s/p IV lasix 05/03-05/08; s/p acetazolamide ; lasix 04/27-; metolazone 04/23-)
#JAY on CKD stage IIIb
#Cardiorenal syndrome
#Alkalosis
#Hyponatremia
S/p HD (05/08, 05/09, 05/10, 05/12); temporary IJ catheter placed. Cr: 3.0>2.9>2.5>1.9>1.7>2.1>1.7 today.
- Trend CMP, replete lytes as needed
- Plan to change catheter to tunneled catheter on Wednesday; IR notified
- Case mgmt set up [facility] in [place] for outpatient
#Acute hypoxic respiratory failure, resolving
#Bilateral pleural effusions, R>L
S/p R-sided thoracentesis (04/30): transudative fluid, 1850 cc, 2/2 CHF. S/p therapeutic thora (05/08): 1600 cc of straw colored pleural fluid. Failed NC wean yesterday 05/09. Satting 97% on 1L O2 NC earlier this am > weaned off to RA satting well.
- Incentive spirometry
Chronic conditions:
#A-fib: Chronic, currently rate controlled. Eliquis
#IDDM: Insulin dosing to match home dose (lantus 14, novolog 3) > increased to 18, 5 given hyperglycemia inpt (05/08)
#Insomnia: home zolpidem 5mg; tried melatonin, discontinued by cards
#Global
- DVT prophylaxis: Eliquis
- Code status: Full code
- Diet: NPO post-op, advance per CT surg
- Dispo: Likely to home (lives at home w ) per case mgmt eval; outpatient HD set up; likely dispo on Wed or ; PT/OT following
Anticipated Discharge: > 48 hours
Subjective/Interval History
-
Date of Service: May 13, 2025
Patient up out of bed this morning, sitting in chair, napping covered in blankets. Sleepy, minimally conversant. States that he is ready to go home. No pain, no trouble breathing, no new complaints.
Objective Data
-
Labs:
Laboratory Results
05/13/25
02:38
WBC 7.3
Hgb 9.3 L
Hct 28.0 L
Plt Count 128 L
Sodium 130 L
Potassium 3.7
Chloride 97 L
Carbon Dioxide 29
BUN 26 H
Creatinine 1.7 H
Glucose 133 H
Calcium 8.6
Total Bilirubin 1.0
AST 31
ALT < 10
Alkaline Phosphatase 119
Vital Signs:
Vital Signs
Temp Pulse Resp BP Pulse Ox
98.7 F 75 18 127/78 97
05/13/25 02:43 05/13/25 05:00 05/13/25 02:43 05/13/25 02:30 05/13/25 02:43
I&O
05/12/25 05/13/25 05/14/25
06:59 06:59 06:59
Output Total 100 / 100 50 / 50
Balance -100 / -100 -50 / -50
Review of Systems
-
Unable to obtain full review of systems at this time due to: Dementia
History Source: Patient
Constitutional: Reports No Symptoms
Respiratory: Reports No Symptoms
Cardiac: Reports No Symptoms
Physical Exam
-
General: Other
HEENT: Normocephalic, Atraumatic and Anicteric
Respiratory: Non Labored Respirations and Other (O2 NC )
Cardiac: Regular Rhythm (Murmur diminished status post TAVR)
GI: Nondistended
Musculoskeletal: No Edema
Neuro: Other (somnolent, somewhat groggy speech )
Data Reviewed
-
Total Time Spent with Patient (in minutes): 5
Critical Care Time (in minutes): 35
Labs: Labs Reviewed by me
[2025-05-13] MEDS: ELIQUIS 5 MG PO ×2 (09:05→20:04)
[2025-05-13] MEDS: THERAGRAN 1 TABLET PO (09:05)
[2025-05-13] MEDS: PROTONIX 40 MG PO ×2 (09:05→20:04)
[2025-05-13] MEDS: LIPITOR 80 MG PO (09:05)
[2025-05-13] MEDS: NICODERM TRANSDERMAL 14 MG TRANSDERM (09:06)
[2025-05-13] MEDS: DESENEX/MITRAZOL/ZEASORB 1 APPLIC TOPICAL ×2 (09:06→20:04)
[2025-05-13] MEDS: ANTIFUNGAL CLEAR 1 APPLIC TOPICAL ×3 (09:07→22:42)
[2025-05-13] MEDS: TOPROL XL 12.5 MG PO (09:07)
--- NOTE | 2025-05-13 11:28 | W.PN.CARDCBS ---
Today's Communication / Plan
-
Holding oral anti-coagulation in anticipation of tunneled dialysis catheter
Feeling a little bit better
Impression / Plan
-
PCP: Dr. Eason
Primary Weasand Trimmer: Dr. Sutton
Impression:
Admitted 04/18/2025 with acute CHF and JAY
Acute on chronic HFrEF, proBNP 18,500
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
Recent admission for shock, anemia, GI bleed 03/11/2025 until 03/17/2025
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
Severe since 2018
s/p TAVR work-up with MPG 27 at time of cath and not recommended TAVR 01/2023
RHC/LHC 03/15/2025 MPG 28 mmHg, stable CAD
s/p R TF Donovan TAVR 05/11/25
ICM EF 31%, echo 03/12/2025
History of reduced ejection fraction heart failure with recovered EF
CAD status post CABGx4 in setting of NH in 2001
carotid disease s/p left CEA in 2012
s/p Medtronic single chamber ICD 2017
Persistent Afib
Chronic Eliquis OAC
DM 2
Gout
Smoker, ongoing tobacco use
Previous CV studies:
Echo 08/23/2019: EF 30-35%, global hypokinesis with inferolateral, inferior and basal septal akinesis, mild MR, sev pressure 47/28 mmHg
ECHO 12/03/22: EF 50%, mild LVH, stage III diastolic dysfunction, mild MR, severe with peak/mean gradients 54/28 mmHg, KAELYN 0.8 cm�, trace AR, mild TR, PAP 64 mmHg, mild dilation of aorta measuring 4.0 cm
Echo 10/09/2024: EF 35 to 40%, moderate eccentric MR, severe peak/mean 60/34 mmHg and KAELYN 0.8 cm sq, mild aortic insufficiency, moderate TR with PAP 64 mmHg
Echo 03/12/2025: EF 31%, global hypokinesis, moderate MR, severe peak/mean 41/22 mmHg and KAELYN 0.7 cm sq, mild aortic regurgitation, moderate to severe TR with PAP 72 mmHg
Right heart cath/left heart cath 03/15/2025: RA 14, PA 67/28, PCWP 24, LVEDP 18, CO/CI 5.4/3.0, aortic valve with mean pressure gradient 28 mmHg, KAELYN 0.95 cm�.
LAD 100% occluded midportion, NAVAS to LAD versus diagonal is patent to either mid LAD or diagonal branch with anterograde and retrograde filling well-developed septal collaterals from RCA noted. Ramus occluded at origin distal fills via patent free
radial to ramus graft. Circumflex 100% occluded at origin, RCA occluded with patent SVG to PDA. Graft angiography: NAVAS as above, free radial to ramus widely patent, SVG to OM1 100% occluded, SVG to PDA 50 to 55% stenosis in the mid
[facility] 05/03/2025: Hemodynamics (mmHg):RA (m) : 16, RV (s/d,m) : 68/10, 13, PA (s/d, m) : 67.35, 47, PCWP (m) : 39 with V waves up to 47, PA saturation: 57.9% on 8 L of oxygen via nasal cannula, AO saturation: 88% on 8 L of oxygen via nasal cannula
using noninvasive pulse ox, RA saturation: 60% on 8 L of oxygen via nasal cannula. Cardiac Output : 5.03 L/min by Tejas calculation, Cardiac Index : 2.75 L/min/m-2 by Tejas calculation Systemic vascular resistance: 1208 dsc^(-5), Pulmonary vascular
resistance: 1.59 huang unit
Plan:
- He was admitted with acute CHF and JAY. Also with ischemic cardiomyopathy and severe .
- He has been diuresed with assistance of nephrology. s/p R thoracentesis 05/08 for 1600cc. also had R thora 04/30/25. Hemodialysis was given on May 12 and a tunneled dialysis catheter is tentatively planned for May 14. I will defer to
primary team but would hold the patient's Eliquis tonight and in the morning in anticipation of a tunneled dialysis catheter if that is what is planned and defer to internal medicine and interventional radiology in terms of timing
- s/p R TF TAVR 05/11/25. tolerated procedure well
- remains in vpaced rhythm with occasional PVCs/couplets on review of tele overnight
- B/L groin sites soft, NTTP. hgb pending this AM
- echo Monday 05/14
- Cr continues to improve, pending 05/12
- GDMT of CM limited by hypotension and JAY. continue toprol 12.5mg daily and midodrine 5mg TID.
- d/w nursing
HPI 04/19/2025:
History of Present Illness:
Patient came to the ER 04/18/2025 with weight gain and increasing lower extremity edema despite up titration of outpatient diuretics. He is a 79-year-old male with a history of permanent atrial fibrillation, aortic stenosis with previous evaluation
for TAVR with repeat eval currently undergoing( eval in 2016, 2022-mean gradient on LHC 27 and TAVR not advised), coronary artery disease, status post CABG, recurrent GI bleeds, chronic kidney disease, ICD, anemia, smoker. He had a previous
admission to [facility] 03/11/2025 - 03/17/2025 with near syncope and a fall, shock. Hemoglobin 6.7, creatinin e 2.6 (baseline 2.0) diuretics (Lasix, Metolazone, Spironolactone) and Coreg held most of admission and restarted at lower outpatient dose.
Required midodrine for BP support. Seen by GI and GI bleed thought to be due to AVMs. 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 Eliquis resumed 5 days after endoscopy, at
lower dose 2.5 mg bid. Repeat TAVR evaluation performed with echo and right and left heart cath (mean gradient 28)and patient is being considered for TAVR, structural heart team plans to discuss him at meeting tomorrow.
CT TAVR 04/16/2025 with measurements to be added as separate addendum, had moderate right and small left pleural effusion
Patient was discharged on 03/31/2025 furosemide 40 mg twice daily, midodrine 5 mg 3 times daily, apixaban 2.5 mg twice daily (dose lowered due to CKD) and atorvastatin. Metolazone, spironolactone, and carvedilol were all held.
Weight progressively increasing since last discharge on 03/17/2025, weight at that time 151 pounds, weight on admission 04/18/2025 180 pounds. Outpatient Lasix has been uptitrated over past month to 120 mg twice daily and metolazone restarted at 2.5
mg --, initially with stable creatinine at 1.56 on 04/02/2025, but 2.1 on 04/18/2025 and progressive weight gain.
Progress Note - Weasand Trimmer
Subjective
Date of Service: May 13, 2025
Feeling a little bit better today
Objective
Labs:
05/13/25 02:38
05/13/25 02:38
Labs
Hgb 9.3 g/dL (13.0-18.0) L 05/13/25 02:38
Hct 28.0 % (39.0-52.0) L 05/13/25 02:38
Plt Count 128 10^3/uL (130-400) L 05/13/25 02:38
PT 17.8 Sec (11.4-14.6) H 05/10/25 11:15
INR 1.42 05/10/25 11:15
APTT 39.0 Sec (23.4-35.0) H 05/10/25 11:15
Sodium 130 mmol/L (135-145) L 05/13/25 02:38
Potassium 3.7 mmol/L (3.5-5.1) 05/13/25 02:38
BUN 26 mg/dl (9-20) H 05/13/25 02:38
Creatinine 1.7 mg/dL (0.7-1.3) H 05/13/25 02:38
Glucose 133 mg/dl (70-99) H 05/13/25 02:38
Vital Signs and I&O:
Vital Signs
Temp Pulse Resp BP Pulse Ox
98.7 F 75 18 127/78 94
05/13/25 02:43 05/13/25 05:00 05/13/25 02:43 05/13/25 02:30 05/13/25 08:00
Vital Signs
Temp Pulse Resp BP Pulse Ox
98.7 F 75 18 127/78 94
05/13/25 02:43 05/13/25 05:00 05/13/25 02:43 05/13/25 02:30 05/13/25 08:00
Intake & Output
05/11/25 05/12/25 05/13/25 05/14/25
06:59 06:59 06:59 06:59
Intake Total 480 / 480
Output Total 350 / 350 100 / 100 50 / 50
Balance 130 / 130 -100 / -100 -50 / -50
Physical Exam
Physical Exam
����Physical Exam
���������������������General:��no apparent distress, not acutely ill
���������������������������Neck:��supple. no meningeal signs. normal psoterior pharynx
������������������������
���������������������������Heart:��s1/s2 regular rate and rhythm, no murmur. equal radial pulses.
��������������������������Lungs: ��no acute respiratory distress. clear bilaterally
����������������������Abdomen:�normal bowel sounds. not tender. no CVAT
��������������������������Neuro:��alert and oriented. no focal neurological deficits
������������������������������Skin: ��no rash
�����������������������Psychiatric:�well kept. interactive and cooperative
�����������������������Extremities:��no edema. no calf tenderness. negative homans. good distal pulses
��
�
--- NOTE | 2025-05-13 11:38 | W.PN.NEPH.PH ---
Today's Communication / Plan
-
HD Wednesday
change to tunneled HD tomorrow
Assessment/Plan
-
IMP:
Acute on Chronic HFrEF
Abnormal Troponin - Likely secondary to CHF
JAY on CKD 4baseline cr at 2-follows Dr Yates
Paroxysmal atrial fibrillation
Chronic hyponatremia
COPD without exacerbation
Chronic heart failure reduced EF 30%
CAD/CABG x 4 (2001)
Medtronic single-chamber ICD, 2017
Carotid disease -s/p left CEA 2012.
Essential hypertension
DM 2
Severe aortic stenosis -previously declined TAVR workup.
Hyperlipidemia
Gout
h/o GI bleed 03/2025 , known h/o AVMS
traumatic left-sided rib fractures -due to fall last admit in March
Plan:
HD was initiated on 05/08 for persistent hypervolemia
BP improving s/p TAVR 05/11
HD unit placement
plan to change to tunneled catheter tomorrow
next HD on Wednesday
renal diet and FR
-
-
Date of Service: May 13, 2025
CC / HPI / ROS
-
Chief Complaint:
Acute kidney injury
History of Present Illness:
HD started on 05/08
Hemodynamically stable
wt up despite HD with UF yesterday
sodium low 130
Review of Systems:
No fevers or chills
No shortness of breath at rest
Labs
-
Labs:
WBC 7.3 10^3/uL (4.8-10.8) 05/13/25 02:38
RBC 2.73 10^6/uL (4.70-6.10) L 05/13/25 02:38
Hgb 9.3 g/dL (13.0-18.0) L 05/13/25 02:38
Hct 28.0 % (39.0-52.0) L 05/13/25 02:38
Plt Count 128 10^3/uL (130-400) L 05/13/25 02:38
Sodium 130 mmol/L (135-145) L 05/13/25 02:38
Potassium 3.7 mmol/L (3.5-5.1) 05/13/25 02:38
Chloride 97 mmol/L (98-107) L 05/13/25 02:38
Carbon Dioxide 29 mmol/L (22-30) 05/13/25 02:38
BUN 26 mg/dl (9-20) H 05/13/25 02:38
Creatinine 1.7 mg/dL (0.7-1.3) H 05/13/25 02:38
eGFR 40.50 05/13/25 02:38
Glucose 133 mg/dl (70-99) H 05/13/25 02:38
Calcium 8.6 mg/dl (8.4-10.2) 05/13/25 02:38
Phosphorus 3.3 mg/dl (2.5-4.5) 05/08/25 03:12
Kwo-B-Exgohzxtnuc Pept [id number] pg/ml 04/18/25 18:44
Albumin 2.8 g/dl (3.5-5.0) L 05/13/25 02:38
Physical Exam
-
Vital Signs:
Vital Signs
Temp Pulse Resp BP Pulse Ox
98.7 F 75 18 127/78 94
05/13/25 02:43 05/13/25 05:00 05/13/25 02:43 05/13/25 02:30 05/13/25 08:00
Cardiovascular:: Regular rate and rhythm
Respiratory:: Bilateral: Rales (bases)
Lung Excursion:: Normal
Abdomen:: Nontender and Soft
Bowel Sounds:: Normal
Extremity Edema:: +1: Bilateral:
Olea Catheter: No
[2025-05-13] MEDS: NON-FORMULARY ITEM 1 UNIT BOTH EYES ×2 (12:06→22:42)
[2025-05-13 12:08] LABS: Glucose - Point of Care 215 mg/dl (70-99)
[2025-05-13] MEDS: ALPHAGAN 0.2% EYE DROPS 1 DROP BOTH EYES ×2 (12:27→22:42)
--- NOTE | 2025-05-13 13:57 | PTCARENOTE ---
Pt received this am oob in the chair. Room air sat 94%, O2 removed. Denies any pain or sob. OOB with 1 assist and the walker to the BR. Gait slow but steady.
[2025-05-13 17:02] LABS: Glucose - Point of Care 159 mg/dl (70-99)
[2025-05-13] MEDS: NOVOLOG FLEXPEN-MODERATE RESISTANCE 1 UNITS SC (17:04)
[2025-05-13 22:36] LABS: Glucose - Point of Care 192 mg/dl (70-99)
[2025-05-13] MEDS: AMBIEN 5 MG PO (22:42)
[2025-05-13] MEDS: REMOVE NICOTINE PATCH 1 PATCH REMOVE (22:42)
--- NOTE | 2025-05-13 22:52 | PTCARENOTE ---
Received patient at change of shift. V paced on the monitor, HR in the 70s. VSS on room air. Bilateral groins CDI, soft. Doppler pedals. Pt requested PRN medication for sleep, administered as per order, see MAR. No complaints from pt at this time,
call moreno within reach.
[2025-05-14] VITALS (15 sets, daily range): BP systolic 75–148; BP diastolic 53–81; PULSE 75; BMI 27.0
[2025-05-14 04:24] LABS: Hematocrit 28.1 % (39.0-52.0); Hemoglobin 9.4 g/dL (13.0-18.0); Mean Corp Hgb Conc. 33.5 g/dL (33.0-37.0); Mean Corpuscular Volume 100.7 fL (80.0-94.0); Nucleated Red Blood Cells % 0 % (-); Platelet Count 122 10^3/uL (130-400); Red Cell Dist. Width 16.9 % (11.5-14.5)
[2025-05-14 04:49] LABS: ALT (SGPT) < 10 U/L (0-50); AST (SGOT) 28 U/L (17-59); Albumin 2.8 g/dl (3.5-5.0); Alkaline Phosphatase 117 U/L (38-126); Blood Urea Nitrogen 36 mg/dl (9-20); Calcium 8.8 mg/dl (8.4-10.2); Carbon Dioxide 28 mmol/L (22-30); Chloride 96 mmol/L (98-107); Estimated Creatinine Clearance 24 ml/min; Glucose 130 mg/dl (70-99); Potassium 3.5 mmol/L (3.5-5.1); Sodium 127 mmol/L (135-145); Total Protein 5.7 g/dl (6.3-8.2); eGFR 29.72
[2025-05-14 07:14] LABS: Glucose - Point of Care 128 mg/dl (70-99)
--- NOTE | 2025-05-14 07:17 | W.PN.HOSP.TC ---
Addendum entered and electronically signed by Sean Amaral MD 05/15/25 13:07:
agree with resident
Original Note:
Today's Communication/Plan
-
- Tunneled cath placement today
- Echo today
- Next Wednesday
- Consider dispo today or tmrw
Assessment / Plan
Assessment / Plan
Robert An is a 79yo M with a pmh notable for CAD (s/p CABG and stents), HFrEF (30 LVEF %), severe , A-fib (on Eliquis, has ICD), carotid artery stenosis (status post left CEA), IDDM, and CKD stage IIIb who presented with increasing lower
extremity edema and abrupt weight gain (20lbs > dry weight), found to have acute on chronic HFrEF & cardiorenal syndrome w pleural effusions, now s/p therapeutic thoracentesis x2 (04/30, 05/08), s/p RHC (05/03), s/p HD x2, s/p TAVR (05/11).
#Acute on chronic HFrEF (30% EF)
#Severe low gradient aortic stenosis
#Moderate mitral regurg
S/p CT TAVR on 04/28. RHC on 05/03 showed elevated filling pressures across all chambers w normal CO. Carotid US (05/10): 'Calcified plaque within the right carotid bulb, measurements suggestive of less than 50% stenosis as per modified Society of
Radiologists in Ultrasound consensus criteria (IAC carotid criteria white paper, 2020). No significant progression compared to prior study. Left carotid endarterectomy site is widely patent.' Pt POD#3 s/p TAVR procedure (05/11).
I&O: around dry weight today 73.5kg (72-73kg dry); UOP inaccurate in s/o incontinence.
- Continue metoprolol succinate (12.5mg daily), midodrine (5mg tid)
- Echo planned for today
- Continue tele
- Continue to monitor daily weights
- Encourage OOB with PT/OT
- Holding PO lasix (05/09-05/11) (s/p IV lasix 05/03-05/08; s/p acetazolamide 04/28-; lasix 04/27-; metolazone 04/23-)
#JAY on CKD stage IIIb
#Cardiorenal syndrome
#Alkalosis
#Hyponatremia
S/p HD (05/08, 05/09, 05/10, 05/12); temporary IJ catheter placed. Cr: 3.0>2.9>2.5>1.9>1.7>2.1>1.7>2.2 today. Na downtrended to 127 today.
- Plan to change catheter to tunneled catheter today; IR notified
- Next HD on 05/15
- Trend CMP, replete lytes as needed
- Case mgmt set up [facility] in [place] for outpatient
#Acute hypoxic respiratory failure, resolving
#Bilateral pleural effusions, R>L
S/p R-sided thoracentesis (04/30): transudative fluid, 1850 cc, 2/2 CHF. S/p therapeutic thora (05/08): 1600 cc of straw colored pleural fluid. Failed NC wean yesterday 05/09. Satting 97% on 1L O2 NC > weaned off to RA satting well on 05/13. Put back on 2L
O2 overnight 05/13, satting 98% on 2L on this am.
- Incentive spirometry
- Wean off O2 as tolerated
Chronic conditions:
#A-fib: Chronic, currently rate controlled. Eliquis
#IDDM: Insulin dosing to match home dose (lantus 14, novolog 3) > increased to 18, 5 given hyperglycemia inpt (05/08)
#Insomnia: home zolpidem 5mg; tried melatonin, discontinued by cards
#Global
- DVT prophylaxis: Eliquis
- Code status: Full code
- Diet: regular
- Dispo: Likely to home (lives at home w ) per case mgmt eval; outpatient HD set up; likely dispo today or tomorrow, pending cath timing; PT/OT following; likely VN, home PT
Anticipated Discharge: 24 - 48 hours
Subjective/Interval History
-
Date of Service: May 14, 2025
Patient more energetic/talkative than the past few days. Sitting in chair out of bed, eating breakfast. Says he is feeling fine, 'ready to go.'When explained that he is planned for tunneled catheter placement and cardiac echo today, patient says
'whatever!' And smiles. Denies any pain, shortness of breath, discomfort.
Objective Data
-
Labs:
Laboratory Results
05/14/25
03:26
WBC 6.8
Hgb 9.4 L
Hct 28.1 L
Plt Count 122 L
Sodium 127 L
Potassium 3.5
Chloride 96 L
Carbon Dioxide 28
BUN 36 H
Creatinine 2.2 H
Glucose 130 H
Calcium 8.8
Total Bilirubin 1.0
AST 28
ALT < 10
Alkaline Phosphatase 117
Vital Signs:
Vital Signs
Temp Pulse Resp BP Pulse Ox
98.9 F 75 18 119/66 98
05/14/25 03:48 05/14/25 06:00 05/14/25 03:48 05/14/25 03:19 05/14/25 03:48
I&O
05/13/25 05/14/25 05/15/25
06:59 06:59 06:59
Output Total 50 / 50 100 / 100
Balance -50 / -50 -100 / -100
Review of Systems
-
Unable to obtain full review of systems at this time due to: Dementia
History Source: Patient
Constitutional: Reports No Symptoms
Respiratory: Reports No Symptoms
Cardiac: Reports No Symptoms
Physical Exam
-
General: Other (thin, frail, elderly appearing)
HEENT: Normocephalic, Atraumatic and Anicteric
Respiratory: Non Labored Respirations and Other (O2 NC )
Cardiac: Regular Rhythm (Murmur diminished status post TAVR)
GI: Nondistended
Musculoskeletal: No Edema
Skin: Warm (chronic venostatic changes on bilat LE )
Psych: Calm
Data Reviewed
-
Total Time Spent with Patient (in minutes): 10
Critical Care Time (in minutes): 40
Labs: Labs Reviewed by me
[2025-05-14] MEDS: ELIQUIS PO (08:00)
[2025-05-14] MEDS: NOVOLOG FLEXPEN-MODERATE RESISTANCE SC ×2 (08:48→17:20)
[2025-05-14] MEDS: NICODERM TRANSDERMAL 14 MG TRANSDERM (09:26)
[2025-05-14] MEDS: PROTONIX 40 MG PO ×2 (09:27→19:45)
[2025-05-14] MEDS: THERAGRAN 1 TABLET PO (09:27)
[2025-05-14] MEDS: TOPROL XL 12.5 MG PO (09:27)
[2025-05-14] MEDS: DESENEX/MITRAZOL/ZEASORB 1 APPLIC TOPICAL ×2 (09:28→19:45)
[2025-05-14] MEDS: LIPITOR 80 MG PO (09:28)
[2025-05-14] MEDS: ANTIFUNGAL CLEAR 1 APPLIC TOPICAL ×3 (09:28→22:00)
--- NOTE | 2025-05-14 11:14 | CM ---
spoke with [facility]- pt has a chair for - T--Sat @ 12- still await final confirmation and tunneled cath report needs to be faxed.
[2025-05-14 11:32] LABS: Glucose - Point of Care 227 mg/dl (70-99)
--- NOTE | 2025-05-14 11:56 | PTCARENOTE ---
received patient this am in bed, awake oriented to person and place. soft spoken, can understand patient. ambulated to BR with walker, everardo. well. monitor shows V paced with PVC's, VSS. INT x 2 flushes well. patient doesnot tell us when he is having
a BM, stood up and had BM all the way in bathroom plus 1 time in bed. #25 condom cath on patient, draining dark mehul urine. right IJ intact, patient remains NPO for permacath today.
--- NOTE | 2025-05-14 12:06 | PTCARENOTE ---
TAVR coordinator stated that patient is so tired and hard to understand. 'he wasn't like that' this is the first day I have known patient, I went into patient, woke him up , we had a conversation, knows his name , where he is at, patient finally
looked at me and said, 'I just want to sleep'
[2025-05-14] MEDS: NOVOLOG FLEXPEN-MODERATE RESISTANCE 3 UNITS SC (12:35)
[2025-05-14] MEDS: NON-FORMULARY ITEM 1 UNIT BOTH EYES ×2 (12:38→22:00)
[2025-05-14] MEDS: ALPHAGAN 0.2% EYE DROPS 1 DROP BOTH EYES ×2 (12:38→22:00)
--- NOTE | 2025-05-14 12:54 | W.PN.NEPH.PH ---
Today's Communication / Plan
-
HD tomorrow
Assessment/Plan
-
IMP:
Acute on Chronic HFrEF
Abnormal Troponin - Likely secondary to CHF
JAY on CKD 4baseline cr at 2-follows Dr Yates
Paroxysmal atrial fibrillation
Chronic hyponatremia
COPD without exacerbation
Chronic heart failure reduced EF 30%
CAD/CABG x 4 (2001)
Medtronic single-chamber ICD, 2018
Carotid disease -s/p left CEA 2012.
Essential hypertension
DM 2
Severe aortic stenosis -previously declined TAVR workup.
Hyperlipidemia
Gout
h/o GI bleed 03/2025 , known h/o AVMS
traumatic left-sided rib fractures -due to fall last admit in March
Plan:
change to tunnelled HD CVC
HD tomorrow
for dc tomorrow after HD
-
-
Date of Service: May 14, 2025
CC / HPI / ROS
-
Chief Complaint:
Acute kidney injury
History of Present Illness:
HD started on 05/08
tolerated HD wednesday
Hemodynamically stable
Na low 127
hgb stale 9.4
Review of Systems:
No fevers or chills
No shortness of breath at rest
Labs
-
Labs:
WBC 6.8 10^3/uL (4.8-10.8) 05/14/25 03:26
RBC 2.79 10^6/uL (4.70-6.10) L 05/14/25 03:26
Hgb 9.4 g/dL (13.0-18.0) L 05/14/25 03:26
Hct 28.1 % (39.0-52.0) L 05/14/25 03:26
Plt Count 122 10^3/uL (130-400) L 05/14/25 03:26
Sodium 127 mmol/L (135-145) L 05/14/25 03:26
Potassium 3.5 mmol/L (3.5-5.1) 05/14/25 03:26
Chloride 96 mmol/L (98-107) L 05/14/25 03:26
Carbon Dioxide 28 mmol/L (22-30) 05/14/25 03:26
BUN 36 mg/dl (9-20) H 05/14/25 03:26
Creatinine 2.2 mg/dL (0.7-1.3) H 05/14/25 03:26
eGFR 29.72 05/14/25 03:26
Glucose 130 mg/dl (70-99) H 05/14/25 03:26
Calcium 8.8 mg/dl (8.4-10.2) 05/14/25 03:26
Phosphorus 3.3 mg/dl (2.5-4.5) 05/08/25 03:12
Oap-A-Kwxxyswkbtd Pept 39998 pg/ml 04/18/25 18:44
Albumin 2.8 g/dl (3.5-5.0) L 05/14/25 03:26
Physical Exam
-
Vital Signs:
Vital Signs
Temp Pulse Resp BP Pulse Ox
97.8 F 77 20 148/80 97
05/14/25 11:49 05/14/25 10:00 05/14/25 11:49 05/14/25 09:27 05/14/25 11:49
Cardiovascular:: Regular rate and rhythm
Respiratory:: Bilateral: Coarse
Lung Excursion:: Normal
Abdomen:: Nontender and Soft
Bowel Sounds:: Normal
Extremity Edema:: None: Bilateral:
--- NOTE | 2025-05-14 13:29 | W.PN.CT ---
Today's Communication / Plan
-
Doing well from a surgical perspective
TTE from Saturday 05/12 shows a well seated 29mm Donovan Maria Luisa III, no PVL, acceptable gradients (mean gradient 3 mmhg). LVEF estimated at 24%. There is a repeat TTE planned for today.
Continued medical management of his heart failure per cardiology
Appreciate hospitalists managing the patient primarily given his multiple comorbidities
There are no further CT surgery needs. Will sign off. Please do not hesitate to contact us with further questions or concerns.
Assessment / Plan
-
- Severe symptomatic aortic valve stenosis- s/p Right trans femoral TAVR with a 29 mm Donovan TAVR valve on 05/11/25
- LVEPD: 20 mmHG
- Intraop TTE: LVEF was 30% pre and following TAVR without regional wall motion abnormalities or dyskinesia. The aortic valve was well seated without detectable PVL and mean gradient across the new valve was 2 mmHg.
- HD was initiated on 05/08 for persistent hypervolemia
- Hypotension on HD with difficulty with UF
- Chronic atrial fibrillation on Eliquis
- Coronary artery disease status s/p CABGx4 in 2001
- Chronic kidney disease IIIb
- Chronic systolic CHF
- ICM, s/p ICD (MDT)
- COPD
- Carotid artery disease, s/p L CEA 2012
- DM type II
- BPH
- Gastric AVMs/recent GIB
- Gout
Subjective
-
Date of Service: May 14, 2025
NAEON, feels ok
Objective Data
-
Lab Results
05/14/25 03:26
05/14/25 03:26
PT 17.8 Sec (11.4-14.6) H 05/10/25 11:15
INR 1.42 05/10/25 11:15
APTT 39.0 Sec (23.4-35.0) H 05/10/25 11:15
Vital Signs
Vital Signs
Temp Pulse Resp BP Pulse Ox
97.8 F 79 20 148/53 97
05/14/25 11:49 05/14/25 13:18 05/14/25 11:49 05/14/25 13:18 05/14/25 11:49
CT Intake/Output/Weight
05/13/25 05/14/25 05/14/25
18:59 06:59 18:59
Intake Total 180 / 180
Output Total 100 / 100 100 / 100
Balance -100 / -100 80 / 80
SaO2: 97
Physical Exam
-
General: Awake
Cardiovascular: Regular rate & rhythm
Respiratory: Clear
Incision: Other (groins soft)
Data Reviewed
-
Lab Results: Results Reviewed
Medications: Active Meds Reviewed
ECG: Report Reviewed
Total Time Spent with Patient (in minutes): 20
--- NOTE | 2025-05-14 14:16 | PTCARENOTE ---
patient is inc. of BM's, changed patient. patient remained NPO after breakfast, to IRAD via stretcher. Ancef came up in tube system and was sent with patient.
--- NOTE | 2025-05-14 14:18 | W.PN.CARDCBS ---
Addendum entered and electronically signed by Nazario Sutton MD 05/14/25 15:08:
I saw and examined the patient.
The LUNCHROOM MONITOR or PA's note was reviewed and I agree with the note.
Comment: General: Well developed, well nourished in NAD.
Neck: Supple, no JVD, HJR, carotids +2 B/L, no bruits bilaterally.
Heart: Non displaced PMI, RRR, no murmurs, No S3, S4, no rubs.
Lungs: Scattered rhonchi
Extremities: No clubbing, cyanosis or edema bilaterally.
Neuro: Grossly nonfocal, awake, alert and oriented x3.
Stable cardiology status for discharge when cleared by nephrology. Discussed with primary service.
Original Note:
Today's Communication / Plan
-
Tunneled HD CVC today
Tolerating HD better since TAVR
TAVR stable by echo late in the day 05/11/25
Impression / Plan
-
PCP: Dr. Eason
Primary Heating Worker: Dr. Sutton
Impression:
Admitted 04/18/2025 with acute CHF and JAY
Acute on chronic HFrEF, proBNP 18,500
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
Recent admission for shock, anemia, GI bleed 03/11/2025 until 03/17/2025
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
Severe since 2019
s/p TAVR work-up with MPG 27 at time of cath and not recommended TAVR 01/2023
RHC/LHC 03/15/2025 MPG 28 mmHg, stable CAD
s/p R TF Donovan TAVR 05/11/25
ICM EF 31%, echo 03/12/2025
History of reduced ejection fraction heart failure with recovered EF
CAD status post CABGx4 in setting of [place] in 2001
carotid disease s/p left CEA in 2012
s/p Medtronic single chamber ICD 2017
Persistent Afib
Chronic Eliquis OAC
DM 2
Gout
Smoker, ongoing tobacco use
Previous CV studies:
Echo 08/23/2019: EF 30-35%, global hypokinesis with inferolateral, inferior and basal septal akinesis, mild MR, sev pressure 47/28 mmHg
ECHO 12/03/22: EF 50%, mild LVH, stage III diastolic dysfunction, mild MR, severe with peak/mean gradients 54/28 mmHg, KAELYN 0.8 cm�, trace AR, mild TR, PAP 64 mmHg, mild dilation of aorta measuring 4.0 cm
Echo 10/09/2024: EF 35 to 40%, moderate eccentric MR, severe peak/mean 60/34 mmHg and KAELYN 0.8 cm sq, mild aortic insufficiency, moderate TR with PAP 64 mmHg
Echo 03/12/2025: EF 31%, global hypokinesis, moderate MR, severe peak/mean 41/22 mmHg and KAELYN 0.7 cm sq, mild aortic regurgitation, moderate to severe TR with PAP 72 mmHg
Echo 05/11/2025: s/p TAVR with #29 Donovan BLAISE 3 aortic valve prosthesis with peak/mean 6/3 mmHg, mild MR, moderate to severe TR with PAP 60 mmHg
Right heart cath/left heart cath 03/15/2025: RA 14, PA 67/28, PCWP 24, LVEDP 18, CO/CI 5.4/3.0, aortic valve with mean pressure gradient 28 mmHg, KAELYN 0.95 cm�.
LAD 100% occluded midportion, NAVAS to LAD versus diagonal is patent to either mid LAD or diagonal branch with anterograde and retrograde filling well-developed septal collaterals from RCA noted. Ramus occluded at origin distal fills via patent free
radial to ramus graft. Circumflex 100% occluded at origin, RCA occluded with patent SVG to PDA. Graft angiography: NAVAS as above, free radial to ramus widely patent, SVG to OM1 100% occluded, SVG to PDA 50 to 55% stenosis in the mid
[facility] 05/03/2025: Hemodynamics (mmHg):RA (m) : 16, RV (s/d,m) : 68/10, 13, PA (s/d, m) : 67.35, 47, PCWP (m) : 39 with V waves up to 47, PA saturation: 57.9% on 8 L of oxygen via nasal cannula, AO saturation: 88% on 8 L of oxygen via nasal cannula
using noninvasive pulse ox, RA saturation: 60% on 8 L of oxygen via nasal cannula. Cardiac Output : 5.03 L/min by Tejas calculation, Cardiac Index : 2.75 L/min/m-2 by Tejas calculation Systemic vascular resistance: 1208 dsc^(-5), Pulmonary vascular
resistance: 1.59 huang unit
Plan:
-He was admitted with acute CHF and JAY back on 04/18/2025. Also with ischemic cardiomyopathy and severe .
-Patient was newly started on HD this admission and nephrology continues to follow. Hemodynamics during HD improved following TAVR 05/11/2025
-CM notes reviewed by me and patient has an outpatient HD unit arranged
-Tunneled HD CVC planned for 05/14/2025
-Patient had post-TAVR echo performed late in the day on 05/11/2025, this echo was reviewed and summarized above by me on 05/14/2025.
-GDMT of CM has been limited by hypotension and JAY. Patient is currently tolerating Toprol-XL 12.5 mg daily and is also receiving his outpatient dose of midodrine 5 mg TID
HPI 04/19/2025:
History of Present Illness:
Patient came to the ER 04/18/2025 with weight gain and increasing lower extremity edema despite up titration of outpatient diuretics. He is a 79-year-old male with a history of permanent atrial fibrillation, aortic stenosis with previous evaluation
for TAVR with repeat eval currently undergoing( eval in 2022-mean gradient on LHC 27 and TAVR not advised), coronary artery disease, status post CABG, recurrent GI bleeds, chronic kidney disease, ICD, anemia, smoker. He had a previous
admission to [facility] 03/11/2025 - 03/17/2025 with near syncope and a fall, shock. Hemoglobin 6.7, creatinin e 2.6 (baseline 2.0) diuretics (Lasix, Metolazone, Spironolactone) and Coreg held most of admission and restarted at lower outpatient dose.
Required midodrine for BP support. Seen by GI and GI bleed thought to be due to AVMs. 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 Eliquis resumed 5 days after endoscopy, at
lower dose 2.5 mg bid. Repeat TAVR evaluation performed with echo and right and left heart cath (mean gradient 28)and patient is being considered for TAVR, structural heart team plans to discuss him at meeting tomorrow.
CT TAVR 04/16/2025 with measurements to be added as separate addendum, had moderate right and small left pleural effusion
Patient was discharged on 03/31/2025 furosemide 40 mg twice daily, midodrine 5 mg 3 times daily, apixaban 2.5 mg twice daily (dose lowered due to CKD) and atorvastatin. Metolazone, spironolactone, and carvedilol were all held.
Weight progressively increasing since last discharge on 03/17/2025, weight at that time 151 pounds, weight on admission 04/18/2025 180 pounds. Outpatient Lasix has been uptitrated over past month to 120 mg twice daily and metolazone restarted at 2.5
mg -W-, initially with stable creatinine at 1.56 on 04/02/2025, but 2.1 on 04/18/2025 and progressive weight gain.
Progress Note - Heating Worker
Subjective
Date of Service: May 14, 2025
He is waiting to go to IR
Objective
Labs:
05/14/25 03:26
05/14/25 03:26
Labs
Hgb 9.4 g/dL (13.0-18.0) L 05/14/25 03:26
Hct 28.1 % (39.0-52.0) L 05/14/25 03:26
Plt Count 122 10^3/uL (130-400) L 05/14/25 03:26
PT 17.8 Sec (11.4-14.6) H 05/10/25 11:15
INR 1.42 05/10/25 11:15
APTT 39.0 Sec (23.4-35.0) H 05/10/25 11:15
Sodium 127 mmol/L (135-145) L 05/14/25 03:26
Potassium 3.5 mmol/L (3.5-5.1) 05/14/25 03:26
BUN 36 mg/dl (9-20) H 05/14/25 03:26
Creatinine 2.2 mg/dL (0.7-1.3) H 05/14/25 03:26
Glucose 130 mg/dl (70-99) H 05/14/25 03:26
Vital Signs and I&O:
Vital Signs
Temp Pulse Resp BP Pulse Ox
97.8 F 79 20 148/53 97
05/14/25 11:49 05/14/25 13:18 05/14/25 11:49 05/14/25 13:18 05/14/25 13:29
Vital Signs
Temp Pulse Resp BP Pulse Ox
97.8 F 79 20 148/53 97
05/14/25 11:49 05/14/25 13:18 05/14/25 11:49 05/14/25 13:18 05/14/25 13:29
Intake & Output
05/12/25 05/13/25 05/14/25 05/15/25
06:59 06:59 06:59 06:59
Intake Total 180 / 180
Output Total 100 / 100 50 / 50 100 / 100 100 / 100
Balance -100 / -100 -50 / -50 -100 / -100 80 / 80
Physical Exam
Physical Exam
General: NAD, AAOX3
Heart: Afib on tele.
Lungs: RA. No audible wheeze
Ext: Trace B/L LE edema
[2025-05-14] MEDS: ANCEF 10 IV (14:41)
--- NOTE | 2025-05-14 17:09 | PTCARENOTE ---
returned from getting Perma Cath in right upper chest wall, dsg. D/I. orthostatic VS done and recorded on work list. at bedside ordering patient dinner.
[2025-05-14 17:17] LABS: Glucose - Point of Care 120 mg/dl (70-99)
[2025-05-14] MEDS: ELIQUIS 5 MG PO (19:45)
[2025-05-14] MEDS: AMBIEN 5 MG PO (21:59)
[2025-05-14] MEDS: REMOVE NICOTINE PATCH 1 PATCH REMOVE (22:00)
[2025-05-14 22:09] LABS: Glucose - Point of Care 243 mg/dl (70-99)
[2025-05-14 23:46] LABS: Glucose - Point of Care 237 mg/dl (70-99)
[2025-05-14] MEDS: LANTUS 0.09 UNITS SC (23:46)
[2025-05-15] VITALS (32 sets, daily range): BP systolic 89–132; BP diastolic 46–76; PULSE 75–76; BMI 27.1
--- NOTE | 2025-05-15 00:27 | PTCARENOTE ---
Pt AAOx2, disoriented to time. Bed alarm active d/t pt forgetfulness. Tele monitor shows Vpaced w/ occasional PVCs. Pt denies any pain. Ambulates w/ RW and requires standby assist. Denies any dizziness. Pt can be inc of bowel and urine at times.
Urinal at the bedside. See skin documentation for further assessment. Call moreno within reach.
--- NOTE | 2025-05-15 07:02 | W.PN.HOSP.TC ---
Addendum entered and electronically signed by Sean Amaral MD 05/15/25 13:13:
Acute on chronic HFrEF, volume status has improved, continues to have a pleural effusion which will be tapped. Continue hemodialysis for volume management
JAY progressive CKD cardiorenal syndrome now requiring hemodialysis. Case management has successfully able to get him outpatient hemodialysis chair.
Will need outpatient vascular surgery follow-up for AV fistula mapping and discussion.
Orthostasis
Initiate midodrine 3 times daily on HD days
Compression stocking abdominal binder
Discharge home with visiting nurses after hemodialysis and thoracentesis
Original Note:
Today's Communication/Plan
-
- Dispo likely later today or tmrw
- Midodrine 2.5mg tid on days of HD for orthostatic control
- HD today
- Repeat therapeutic thora today given reaccumulation of R pleural effusion on CXR
- Continue cardiovascular meds inpt
Assessment / Plan
Assessment / Plan
Robert An is a 79yo M with a pmh notable for CAD (s/p CABG and stents), HFrEF (30 LVEF %), severe , A-fib (on Eliquis, has ICD), carotid artery stenosis (status post left CEA), IDDM, and CKD stage IIIb who presented with increasing lower
extremity edema and abrupt weight gain (20lbs > dry weight), found to have acute on chronic HFrEF & cardiorenal syndrome w pleural effusions, now s/p therapeutic thoracentesis x2 (04/30, 05/08), s/p RHC (05/03), s/p HD x2, s/p TAVR (05/11).
#Acute on chronic HFrEF (30% EF)
#Severe low gradient aortic stenosis
#Moderate mitral regurg
S/p CT TAVR on 04/28. RHC on 05/03 showed elevated filling pressures across all chambers w normal CO. Carotid US (05/10): 'Calcified plaque within the right carotid bulb, measurements suggestive of less than 50% stenosis as per modified Society of
Radiologists in Ultrasound consensus criteria (IAC carotid criteria white paper, 2020). No significant progression compared to prior study. Left carotid endarterectomy site is widely patent.' Pt POD#3 s/p TAVR procedure (05/11).
I&O: around dry weight today 73.9kg (72-73kg dry); UOP inaccurate in s/o incontinence.
- Continue metoprolol succinate (12.5mg daily), midodrine (5mg tid)
- Continue tele
- Continue to monitor daily weights
- Encourage OOB with PT/OT
- Confirm w CT surg if pt requires repeat TTE prior to discharge
- Stable for discharge from cards perspective as of 05/14
- Holding PO lasix (05/09-05/11) (s/p IV lasix 05/03-05/08; s/p acetazolamide 04/28-; lasix 04/27-; metolazone 04/23-)
#JAY on CKD stage IIIb
#Cardiorenal syndrome
#Alkalosis
#Hyponatremia
S/p HD (05/08, 05/09, 05/10, 05/12). Cr: 3.0>2.9>2.5>1.9>1.7>2.1>1.7>2.2. Tunneled catheter placed 05/14.
- HD today (05/15)
- Trend CMP, replete lytes as needed
- Case mgmt has set up [facility] in [place] for outpatient
- Stable for discharge from renal perspective as of 05/14
#Orthostatic hypotension
Orthostatic vitals (05/14) showed no change in HR, but BP change systolic 20 and diastolic 10 from sitting to standing c/w orthostatic hypotension. Obtained per concern w pt going to rehab facility likely today or tomorrow.
- Add midodrine 2.5mg TID today & on HD days moving forward
- Add abdominal binder & compression stockings
#Acute hypoxic respiratory failure, resolving
#Bilateral pleural effusions, R>L
S/p R-sided thoracentesis (04/30): transudative fluid, 1850 cc, 2/2 CHF. S/p therapeutic thora (05/08): 1600 cc of straw colored pleural fluid. Failed NC wean 05/09. Successful NC wean on 05/14; satting 91% on RA 05/15. CXR (05/15) demonstrated progression of
moderate R lower lobe pleural effusion.
- Incentive spirometry
- Consider additional therapeutic thoracentesis of R pleural effusion prior to discharge
Chronic conditions:
#A-fib: Chronic, currently rate controlled. Eliquis
#IDDM: Insulin dosing to match home dose (lantus 14, novolog 3)
#Insomnia: home zolpidem 5mg; tried melatonin, discontinued by cards
#Global
- DVT prophylaxis: Eliquis
- Code status: Full code
- Diet: regular
- Dispo: To home w VN/PT (lives at home w ) vs. temporary rehab, per case mgmt; outpatient HD set up; likely dispo today
Anticipated Discharge: Within 24 hours
Subjective/Interval History
-
Date of Service: May 15, 2025
Patient more conversant/alert than typical this morning. States that he understands that he cannot eat until after hemodialysis facility. Endorses some pain in the right clavicular area after getting the tunneled dialysis catheter placed
yesterday. However, nothing intolerable. Denies any chest pain, shortness of breath. Getting hemodialysis while we spoke.
Objective Data
-
Labs:
Laboratory Results
05/15/25
06:00
WBC Pending
Hgb Pending
Hct Pending
Plt Count Pending
Sodium Pending
Potassium Pending
Chloride Pending
Carbon Dioxide Pending
BUN Pending
Creatinine Pending
Glucose Pending
Calcium Pending
Total Bilirubin Pending
AST Pending
ALT Pending
Alkaline Phosphatase Pending
Vital Signs:
Vital Signs
Temp Pulse Resp BP Pulse Ox
97.6 F 75 20 91/46 91
05/15/25 03:55 05/15/25 06:00 05/15/25 03:55 05/15/25 04:01 05/15/25 03:55
I&O
05/14/25 05/15/25 05/16/25
06:59 06:59 06:59
Intake Total 420 / 420
Output Total 100 / 100 150 / 150
Balance -100 / -100 270 / 270
Review of Systems
-
Unable to obtain full review of systems at this time due to: Dementia
History Source: Patient
Constitutional: Reports No Symptoms
Respiratory: Reports No Symptoms
Cardiac: Reports No Symptoms
Physical Exam
-
General: Other (thin, frail, elderly appearing)
HEENT: Normocephalic, Atraumatic and Anicteric
Respiratory: Clear to Auscultation, Non Labored Respirations and Other (without O2 NC today )
Cardiac: Regular Rhythm
GI: Nondistended
Musculoskeletal: No Edema
Skin: Warm (chronic venostatic skin changes on bilat LE )
Neuro: Awake and Alert
Psych: Calm
Data Reviewed
-
Total Time Spent with Patient (in minutes): 10
Critical Care Time (in minutes): 45
Diagnostic Radiology: Report Reviewed by me
Labs: Labs Reviewed by me
[2025-05-15 07:16] LABS: Glucose - Point of Care 135 mg/dl (70-99)
[2025-05-15 08:33] LABS: Hematocrit 28.4 % (39.0-52.0); Hemoglobin 9.7 g/dL (13.0-18.0); Mean Corp Hgb Conc. 34.2 g/dL (33.0-37.0); Mean Corpuscular Volume 101.4 fL (80.0-94.0); Nucleated Red Blood Cells % 0 % (-); Platelet Count 128 10^3/uL (130-400); Red Cell Dist. Width 16.9 % (11.5-14.5)
[2025-05-15] MEDS: RETACRIT 10000 UNITS IV (09:09)
--- NOTE | 2025-05-15 09:15 | CM ---
pt/family do not want SNF, plan is dc to home with dhvn and HD set up at [facility] T-Th-Sat at 12 noon.
--- NOTE | 2025-05-15 09:25 | PTCARENOTE ---
received patient this am in bed, ready for dialysis via new right sided Perma cath. monitor shows Vpaced, VSS. patient oriented to person and place only. bed alarm remains on for safety. dialysis in progress.
[2025-05-15 09:48] LABS: ALT (SGPT) < 10 U/L (0-50); AST (SGOT) 34 U/L (17-59); Albumin 3.1 g/dl (3.5-5.0); Alkaline Phosphatase 120 U/L (38-126); Blood Urea Nitrogen 42 mg/dl (9-20); Calcium 8.6 mg/dl (8.4-10.2); Carbon Dioxide 27 mmol/L (22-30); Chloride 96 mmol/L (98-107); Estimated Creatinine Clearance 26 ml/min; Glucose 130 mg/dl (70-99); Iron 48 ug/dl (49-181); Magnesium 1.7 mg/dl (1.6-2.3); Potassium 3.6 mmol/L (3.5-5.1); Sodium 128 mmol/L (135-145); Total Protein 6.2 g/dl (6.3-8.2); eGFR 33.32
--- NOTE | 2025-05-15 09:48 | W.PN.NEPH.HD ---
Assessment
-
Seen on HD. no complaints. VSS< access ok
OP HD TTS, will drive him
Progress Note - Hemodialysis
-
Date of Service: May 15, 2025
Duration: 30 minutes and 3 hours
Potassium Bath: 3
Calcium Bath: 2.5
Opti-Dialyzer: 160
Ultrafiltration: Other (2kg)
Blood Flow: 400
Dialysate Flow: 600
Heparin: 0
EPO: [id number] units
[2025-05-15] MEDS: FLEXBUMIN 25% FOR HEMODIALYSIS 12.5 GRAMS IV (09:49)
[2025-05-15] MEDS: MANNITOL 25% 12.5 GRAMS IV (09:53)
[2025-05-15 09:59] LABS: Total Iron Binding Capacity 241 ug/dl (261-462)
[2025-05-15] MEDS: NOVOLOG FLEXPEN-MODERATE RESISTANCE SC ×2 (10:02→12:03)
[2025-05-15 10:16] LABS: Ferritin 51.0 ng/ml (17.9-464.0)
--- NOTE | 2025-05-15 10:28 | W.PN.CARDCBS ---
Addendum entered and electronically signed by Nazario Sutton MD 05/15/25 12:07:
I saw and examined the patient.
The ORDNANCE ARTIFICER HELPER or PA's note was reviewed and I agree with the note.
Comment: General: Well developed, well nourished in NAD.
Neck: Supple, no JVD, HJR, carotids +2 B/L, no bruits bilaterally.
Heart: Non displaced PMI, RRR, 1/6 basal systolic murmur, No S3, S4, no rubs.
Lungs: Scattered rhonchi
Extremities: No clubbing, cyanosis or edema bilaterally.
Neuro: Grossly nonfocal, awake, alert and oriented x3.
Stable cardiology status for discharge to home. Follow-up has been arranged. Discussed with patient in detail. Patient is okay for AV fistula surgery as an outpatient without further testing.
Original Note:
Today's Communication / Plan
-
on HD
for AVF creation as OP
continue toprol, eliquis
wean midodrine as able
for home with VN
OP cardiac follow up arranged
Impression / Plan
-
PCP: Dr. Eason
Primary Track Liner Operator: Dr. Sutton
Impression:
Admitted 04/18/2025 with acute CHF and JAY
Acute on chronic HFrEF, proBNP 18,500
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
Recent admission for shock, anemia, GI bleed 03/11/2025 until 03/17/2025
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
Severe since 2019
s/p TAVR work-up with MPG 27 at time of cath and not recommended TAVR 01/2023
RHC/LHC 03/15/2025 MPG 28 mmHg, stable CAD
s/p R TF Donovan TAVR 05/11/25
ICM EF 31%, echo 03/12/2025
History of reduced ejection fraction heart failure with recovered EF
CAD status post CABGx4 in setting of [place] in 2001
carotid disease s/p left CEA in 2012
s/p Medtronic single chamber ICD 2017
Persistent Afib
Chronic Eliquis OAC
DM 2
Gout
Smoker, ongoing tobacco use
Previous CV studies:
Echo 08/23/2019: EF 30-35%, global hypokinesis with inferolateral, inferior and basal septal akinesis, mild MR, sev pressure 47/28 mmHg
ECHO 12/03/22: EF 50%, mild LVH, stage III diastolic dysfunction, mild MR, severe with peak/mean gradients 54/28 mmHg, KAELYN 0.8 cm�, trace AR, mild TR, PAP 64 mmHg, mild dilation of aorta measuring 4.0 cm
Echo 10/09/2024: EF 35 to 40%, moderate eccentric MR, severe peak/mean 60/34 mmHg and KAELYN 0.8 cm sq, mild aortic insufficiency, moderate TR with PAP 64 mmHg
Echo 03/12/2025: EF 31%, global hypokinesis, moderate MR, severe peak/mean 41/22 mmHg and KAELYN 0.7 cm sq, mild aortic regurgitation, moderate to severe TR with PAP 72 mmHg
Echo 05/11/2025: s/p TAVR with #29 Donovan BLAISE 3 aortic valve prosthesis with peak/mean 6/3 mmHg, mild MR, moderate to severe TR with PAP 60 mmHg
Right heart cath/left heart cath 03/15/2025: RA 14, PA 67/28, PCWP 24, LVEDP 18, CO/CI 5.4/3.0, aortic valve with mean pressure gradient 28 mmHg, KAELYN 0.95 cm�.
LAD 100% occluded midportion, NAVAS to LAD versus diagonal is patent to either mid LAD or diagonal branch with anterograde and retrograde filling well-developed septal collaterals from RCA noted. Ramus occluded at origin distal fills via patent free
radial to ramus graft. Circumflex 100% occluded at origin, RCA occluded with patent SVG to PDA. Graft angiography: NAVAS as above, free radial to ramus widely patent, SVG to OM1 100% occluded, SVG to PDA 50 to 55% stenosis in the mid
[facility] 05/03/2025: Hemodynamics (mmHg):RA (m) : 16, RV (s/d,m) : 68/10, 13, PA (s/d, m) : 67.35, 47, PCWP (m) : 39 with V waves up to 47, PA saturation: 57.9% on 8 L of oxygen via nasal cannula, AO saturation: 88% on 8 L of oxygen via nasal cannula
using noninvasive pulse ox, RA saturation: 60% on 8 L of oxygen via nasal cannula. Cardiac Output : 5.03 L/min by Tejas calculation, Cardiac Index : 2.75 L/min/m-2 by Tejas calculation Systemic vascular resistance: 1208 dsc^(-5), Pulmonary vascular
resistance: 1.59 huang unit
Plan:
-He was admitted with acute CHF and JAY back on 04/18/2025. Also with ischemic cardiomyopathy and severe .
-Patient was newly started on HD this admission and nephrology continues to follow. Hemodynamics during HD improved following TAVR 05/11/2025
-s/p tunneled HD CVC 05/14. nephrology planning for OP AVF creation, ok from cardiac standpoint to proceed
-echo post TAVR 05/11 with mean gradient 3mmHg. remains with mod to severe TR, will need to be followed as OP
-GDMT of CM has been limited by hypotension and JAY. Patient is currently tolerating Toprol-XL 12.5 mg daily. midodrine weaned to 2.5mg TID.
-planning for home with VN today and OP HD TuThSa
-OP cardiac follow up and cardiac rehab arranged
HPI 04/19/2025:
History of Present Illness:
Patient came to the ER 04/18/2025 with weight gain and increasing lower extremity edema despite up titration of outpatient diuretics. He is a 79-year-old male with a history of permanent atrial fibrillation, aortic stenosis with previous evaluation
for TAVR with repeat eval currently undergoing( eval in 2016, 2022-mean gradient on C 27 and TAVR not advised), coronary artery disease, status post CABG, recurrent GI bleeds, chronic kidney disease, ICD, anemia, smoker. He had a previous
admission to [facility] 03/11/2025 - 03/17/2025 with near syncope and a fall, shock. Hemoglobin 6.7, creatinin e 2.6 (baseline 2.0) diuretics (Lasix, Metolazone, Spironolactone) and Coreg held most of admission and restarted at lower outpatient dose.
Required midodrine for BP support. Seen by GI and GI bleed thought to be due to AVMs. 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 Eliquis resumed 5 days after endoscopy, at
lower dose 2.5 mg bid. Repeat TAVR evaluation performed with echo and right and left heart cath (mean gradient 28)and patient is being considered for TAVR, structural heart team plans to discuss him at meeting tomorrow.
CT TAVR 04/16/2025 with measurements to be added as separate addendum, had moderate right and small left pleural effusion
Patient was discharged on 03/31/2025 furosemide 40 mg twice daily, midodrine 5 mg 3 times daily, apixaban 2.5 mg twice daily (dose lowered due to CKD) and atorvastatin. Metolazone, spironolactone, and carvedilol were all held.
Weight progressively increasing since last discharge on 03/17/2025, weight at that time 151 pounds, weight on admission 04/18/2025 180 pounds. Outpatient Lasix has been uptitrated over past month to 120 mg twice daily and metolazone restarted at 2.5
mg M-W-, initially with stable creatinine at 1.56 on 04/02/2025, but 2.1 on 04/18/2025 and progressive weight gain.
Progress Note - Track Liner Operator
Subjective
Date of Service: May 15, 2025
Feeling well. Presently on HD
Objective
Labs:
05/15/25 08:02
05/15/25 08:02
Labs
Hgb 9.7 g/dL (13.0-18.0) L 05/15/25 08:02
Hct 28.4 % (39.0-52.0) L 05/15/25 08:02
Plt Count 128 10^3/uL (130-400) L 05/15/25 08:02
PT 17.8 Sec (11.4-14.6) H 05/10/25 11:15
INR 1.42 05/10/25 11:15
APTT 39.0 Sec (23.4-35.0) H 05/10/25 11:15
Sodium 128 mmol/L (135-145) L 05/15/25 08:02
Potassium 3.6 mmol/L (3.5-5.1) 05/15/25 08:02
BUN 42 mg/dl (9-20) H 05/15/25 08:02
Creatinine 2.0 mg/dL (0.7-1.3) H 05/15/25 08:02
Glucose 130 mg/dl (70-99) H 05/15/25 08:02
Vital Signs and I&O:
Vital Signs
Temp Pulse Resp BP Pulse Ox
97.7 F 80 18 96/48 91
05/15/25 07:10 05/15/25 10:15 05/15/25 07:10 05/15/25 10:15 05/15/25 08:30
Vital Signs
Temp Pulse Resp BP Pulse Ox
97.7 F 80 18 96/48 91
05/15/25 07:10 05/15/25 10:15 05/15/25 07:10 05/15/25 10:15 05/15/25 08:30
Intake & Output
05/13/25 05/14/25 05/15/25 05/16/25
07:59 07:59 07:59 07:59
Intake Total 420 / 420
Output Total 50 / 50 100 / 100 150 / 150
Balance -50 / -50 -100 / -100 270 / 270
Physical Exam
Physical Exam
GEN: No distress, awake, alert, oriented x3. on HD
HEENT: supple, anicteric, mmm, eomi
LUNGS: CTA B/L anterolaterally, no wheezes
CV: Irreg, S1/S2, 1/6 syst LSB
ABD: soft, BS+, NT/ND
EXT: No cyanosis, clubbing. 1+ edema of B/L LE
NEURO: Gross non-focal
SKIN: Warm, pink, dry. No rash
[2025-05-15] MEDS: HEPARIN 3900 UNITS INTRACATH (11:28)
[2025-05-15] MEDS: LIPITOR 80 MG PO (11:56)
[2025-05-15] MEDS: DESENEX/MITRAZOL/ZEASORB 1 APPLIC TOPICAL ×2 (11:56→19:49)
[2025-05-15] MEDS: TOPROL XL 12.5 MG PO (11:56)
[2025-05-15] MEDS: ANTIFUNGAL CLEAR 1 APPLIC TOPICAL ×3 (11:56→22:48)
[2025-05-15] MEDS: THERAGRAN 1 TABLET PO (11:57)
[2025-05-15] MEDS: PROTONIX 40 MG PO ×2 (11:57→19:50)
[2025-05-15] MEDS: ELIQUIS 5 MG PO ×2 (11:57→19:50)
[2025-05-15] MEDS: NICODERM TRANSDERMAL 14 MG TRANSDERM (11:58)
[2025-05-15 12:03] LABS: Glucose - Point of Care 113 mg/dl (70-99)
[2025-05-15] MEDS: NON-FORMULARY ITEM 1 UNIT BOTH EYES ×2 (12:05→22:49)
[2025-05-15] MEDS: ALPHAGAN 0.2% EYE DROPS 1 DROP BOTH EYES ×2 (12:05→21:22)
--- NOTE | 2025-05-15 12:43 | PTCARENOTE ---
tubi control officer manager bilat LE on as ordered. abd. binder on as ordered.
--- NOTE | 2025-05-15 16:41 | PTCARENOTE ---
IR just called patient will have thoracentesis in am.
[2025-05-15 17:51] LABS: Glucose - Point of Care 236 mg/dl (70-99); Glucose - Point of Care 495 mg/dl (70-99)
[2025-05-15] MEDS: NOVOLOG FLEXPEN-MODERATE RESISTANCE 3 UNITS SC (17:53)
[2025-05-15] MEDS: ZYLOPRIM 100 MG PO (17:59)
--- NOTE | 2025-05-15 20:52 | PTCARENOTE ---
assumed care of patient at the change of shift. oriented x3. answers questions appropriately. garbled speech-baseline. forgetful at times. Vpaced on tele-70s. bp stable. patient was placed on 2L NC prior to recieving patient- 98%. denies any sob.
denies any lightheadedness/dizziness. b/l groin sites intact. comfort measures provided. bed alarm placed for safety. call moreno within reach. makes needs known.
[2025-05-15] MEDS: AMBIEN 5 MG PO (21:22)
[2025-05-15 22:27] LABS: Glucose - Point of Care 204 mg/dl (70-99)
[2025-05-15] MEDS: LANTUS 0.18 UNITS SC (22:49)
[2025-05-15] MEDS: REMOVE NICOTINE PATCH 1 PATCH REMOVE (22:50)
[2025-05-16] VITALS (11 sets, daily range): BP systolic 75–131; BP diastolic 47–68; PULSE 63–75; BMI 26.9
[2025-05-16 04:04] LABS: Hematocrit 29.5 % (39.0-52.0); Hemoglobin 9.4 g/dL (13.0-18.0); Mean Corp Hgb Conc. 31.9 g/dL (33.0-37.0); Mean Corpuscular Volume 101.4 fL (80.0-94.0); Nucleated Red Blood Cells % 0 % (-); Platelet Count 111 10^3/uL (130-400); Red Cell Dist. Width 17.3 % (11.5-14.5)
[2025-05-16 04:29] LABS: ALT (SGPT) < 10 U/L (0-50); AST (SGOT) 27 U/L (17-59); Albumin 3.0 g/dl (3.5-5.0); Alkaline Phosphatase 122 U/L (38-126); Blood Urea Nitrogen 25 mg/dl (9-20); Calcium 8.8 mg/dl (8.4-10.2); Carbon Dioxide 29 mmol/L (22-30); Chloride 99 mmol/L (98-107); Estimated Creatinine Clearance 31 ml/min; Glucose 176 mg/dl (70-99); Potassium 3.7 mmol/L (3.5-5.1); Sodium 131 mmol/L (135-145); Total Protein 6.0 g/dl (6.3-8.2); eGFR 40.50
[2025-05-16 06:58] LABS: Glucose - Point of Care 140 mg/dl (70-99)
--- NOTE | 2025-05-16 07:16 | W.PN.HOSP.TC ---
Addendum entered and electronically signed by Sean Amaral MD 05/16/25 17:36:
dc home
outpt hd unit set up
Original Note:
Today's Communication/Plan
-
- Therapeutic thoracentesis today
- HD t/th/roberto
- Discharge on metoprolol, midodrine
- O2 home eval today prior to discharge
Assessment / Plan
Assessment / Plan
Robert An is a 79yo M with a pmh notable for CAD (s/p CABG and stents), HFrEF (30 LVEF %), severe , A-fib (on Eliquis, has ICD), carotid artery stenosis (status post left CEA), IDDM, and CKD stage IIIb who presented with increasing lower
extremity edema and abrupt weight gain (20lbs > dry weight), found to have acute on chronic HFrEF & cardiorenal syndrome w pleural effusions, now s/p therapeutic thoracentesis x2 (04/30, 05/08), s/p RHC (05/03), s/p HD x2, s/p TAVR (05/11).
#Acute on chronic HFrEF (30% EF)
#Severe low gradient aortic stenosis
#Moderate mitral regurg
S/p CT TAVR on 04/28. RHC on 05/03 showed elevated filling pressures across all chambers w normal CO. Carotid US (05/10): 'Calcified plaque within the right carotid bulb, measurements suggestive of less than 50% stenosis as per modified Society of
Radiologists in Ultrasound consensus criteria (IAC carotid criteria white paper, 2020). No significant progression compared to prior study. Left carotid endarterectomy site is widely patent.' Pt POD#3 s/p TAVR procedure (05/11).
I&O: around dry weight today 73.9kg (72-73kg dry); UOP inaccurate in s/o incontinence.
- Continue metoprolol succinate (12.5mg daily)
- Continue to monitor daily weights
- Encourage OOB with PT/OT
- Holding PO lasix (05/09-05/11) (s/p IV lasix 05/03-05/08; s/p acetazolamide 04/28-; lasix 04/27-; metolazone 04/23-)
#JAY on CKD stage IIIb
#Cardiorenal syndrome
#Alkalosis
#Hyponatremia
S/p HD (05/08, 05/09, 05/10, 05/12, 05/15 - will continue T/Th/S). Cr: 3.0>2.9>2.5>1.9>1.7>2.1>1.7>2.2>1.7. Tunneled catheter placed 05/14. AV fistula staging US done 05/15.
- Trend CMP, replete lytes as needed
- HD T/Th/S
- Case mgmt has set up [facility] in [place] for outpatient
#Acute hypoxic respiratory failure, resolving
#Bilateral pleural effusions, R>L
S/p R-sided thoracentesis (04/30): transudative fluid, 1850 cc, 2/2 CHF. S/p therapeutic thora (05/08): 1600 cc of straw colored pleural fluid. Failed NC wean 05/09. Successful NC wean on 05/14; satting 91% on RA 05/15. CXR (05/15) demonstrated progression of
moderate R lower lobe pleural effusion. 05/16 morning, O2 sat ranging 85-89% on RA. Pt denying dyspnea.
- Therapeutic thora today prior to d/c
- Home O2 assessment prior to d/c
- Incentive spirometry
#Orthostatic hypotension
Orthostatic vitals (05/14) showed no change in HR, but BP change systolic 20 and diastolic 10 from sitting to standing c/w orthostatic hypotension.
- Midodrine 2.5mg BID
- Abdominal binder & compression stockings
Chronic conditions:
#A-fib: Chronic, currently rate controlled. Eliquis
#IDDM: Insulin (lantus 18, aspart sliding scale moderate)
#Insomnia: home zolpidem 5mg; tried melatonin, discontinued by cards
#Global
- DVT prophylaxis: Eliquis
- Code status: Full code
- Diet: regular
- Dispo: To home w VN/PT (lives at home w ) vs. temporary rehab, per case mgmt; outpatient HD set up; likely dispo today
Anticipated Discharge: Within 24 hours
Subjective/Interval History
-
Date of Service: May 16, 2025
Patient sitting up in chair this morning wearing abdominal binder and compression socks, eating breakfast. Patient states that 'his right hand froze.' When asked if he meant temperature, numbness/tingling, inability to move, he states that he was
not able to move it. However, patient actively able to move hand, clenched/on clenched fist, and feed self with fork using right hand on exam this morning. Otherwise, patient denies any chest pain or SOB. States that he has not been feeling
lightheaded or dizzy when standing up from chair and walking.
Objective Data
-
Labs:
Laboratory Results
05/16/25
03:50
WBC 5.0
Hgb 9.4 L
Hct 29.5 L
Plt Count 111 L
Sodium 131 L
Potassium 3.7
Chloride 99
Carbon Dioxide 29
BUN 25 H
Creatinine 1.7 H
Glucose 176 H
Calcium 8.8
Total Bilirubin 0.8
AST 27
ALT < 10
Alkaline Phosphatase 122
Vital Signs:
Vital Signs
Temp Pulse Resp BP Pulse Ox
98.6 F 76 18 115/62 96
05/16/25 06:47 05/16/25 06:47 05/16/25 06:47 05/16/25 03:39 05/16/25 06:47
I&O
05/15/25 05/16/25 05/17/25
06:59 06:59 06:59
Intake Total 420 / 420 150 / 150
Output Total 150 / 150 150 / 150
Balance 270 / 270 0 / 0
Review of Systems
-
Unable to obtain full review of systems at this time due to: Dementia
History Source: Patient
Constitutional: Reports No Symptoms
Respiratory: Reports No Symptoms
Cardiac: Reports No Symptoms
Musculoskeletal: Reports Other (Transient right hand weakness)
Physical Exam
-
General: Other (thin, frail, elderly appearing)
HEENT: Normocephalic, Atraumatic and Anicteric
Respiratory: Clear to Auscultation, Non Labored Respirations and Other (without O2 NC today )
Cardiac: Regular Rhythm
GI: Nondistended and Other (Patient wearing abdominal binder)
Musculoskeletal: No Edema and Other (Patient wearing compression stockings on bilateral lower extremities)
Skin: Warm (chronic venostatic skin changes on bilat LE )
Neuro: Awake, Alert and Other (Patient with symmetrical clinic scheduler strength in bilateral hands)
Psych: Calm
Data Reviewed
-
Total Time Spent with Patient (in minutes): 15
Critical Care Time (in minutes): 30
Ultrasound: Report Reviewed by me
Labs: Labs Reviewed by me
[2025-05-16] MEDS: ELIQUIS 5 MG PO (07:58)
[2025-05-16] MEDS: LIPITOR 80 MG PO (07:58)
[2025-05-16] MEDS: TOPROL XL 12.5 MG PO (07:58)
[2025-05-16] MEDS: THERAGRAN 1 TABLET PO (07:58)
[2025-05-16] MEDS: PROTONIX 40 MG PO (07:58)
[2025-05-16] MEDS: DESENEX/MITRAZOL/ZEASORB 1 APPLIC TOPICAL (07:59)
[2025-05-16] MEDS: NOVOLOG FLEXPEN-MODERATE RESISTANCE SC (07:59)
[2025-05-16] MEDS: ANTIFUNGAL CLEAR 1 APPLIC TOPICAL (07:59)
[2025-05-16] MEDS: NICODERM TRANSDERMAL 14 MG TRANSDERM (08:13)
[2025-05-16 10:12] LABS: Glycohemoglobin (HgbA1c) 6.9 % (4.0-5.6)
[2025-05-16 11:49] LABS: Body Fluid Second Tech US
--- NOTE | 2025-05-16 11:55 | W.PN.NEPH.PH ---
Today's Communication / Plan
-
ok for d/c per renal
Assessment/Plan
-
IMP:
Acute on Chronic HFrEF
Abnormal Troponin - Likely secondary to CHF
JAY on CKD 4baseline cr at 2-follows Dr Yates
Paroxysmal atrial fibrillation
Chronic hyponatremia
COPD without exacerbation
Chronic heart failure reduced EF 30%
CAD/CABG x 4 (2001)
Medtronic single-chamber ICD, 2018
Carotid disease -s/p left CEA 2012.
Essential hypertension
DM 2
Severe aortic stenosis -previously declined TAVR workup.
Hyperlipidemia
Gout
h/o GI bleed 03/2025 , known h/o AVMS
traumatic left-sided rib fractures -due to fall last admit in March
Plan:
for thoracentesis today
BP stable on midodrine low dose and BB
TTS schedule at [facility]
now with tunneled catheter
will need eventual access-vasc aware
ok for d/c
-
-
Date of Service: May 16, 2025
CC / HPI / ROS
-
Chief Complaint:
Acute kidney injury
History of Present Illness:
HD started on 05/08
tolerated HD yesterday
Hemodynamically stable
Na low 131
hgb stale 9.4
Review of Systems:
No fevers or chills
No shortness of breath at rest
Labs
-
Labs:
WBC 5.0 10^3/uL (4.8-10.8) 05/16/25 03:50
RBC 2.91 10^6/uL (4.70-6.10) L 05/16/25 03:50
Hgb 9.4 g/dL (13.0-18.0) L 05/16/25 03:50
Hct 29.5 % (39.0-52.0) L 05/16/25 03:50
Plt Count 111 10^3/uL (130-400) L 05/16/25 03:50
Sodium 131 mmol/L (135-145) L 05/16/25 03:50
Potassium 3.7 mmol/L (3.5-5.1) 05/16/25 03:50
Chloride 99 mmol/L (98-107) 05/16/25 03:50
Carbon Dioxide 29 mmol/L (22-30) 05/16/25 03:50
BUN 25 mg/dl (9-20) H 05/16/25 03:50
Creatinine 1.7 mg/dL (0.7-1.3) H 05/16/25 03:50
eGFR 40.50 05/16/25 03:50
Glucose 176 mg/dl (70-99) H 05/16/25 03:50
Calcium 8.8 mg/dl (8.4-10.2) 05/16/25 03:50
Phosphorus 3.3 mg/dl (2.5-4.5) 05/08/25 03:12
Edn-S-Arxcdcxueyy Pept 05218 pg/ml 04/18/25 18:44
Albumin 3.0 g/dl (3.5-5.0) L 05/16/25 03:50
Physical Exam
-
Vital Signs:
Vital Signs
Temp Pulse Resp BP Pulse Ox
98.2 F 75 18 105/51 94
05/16/25 11:00 05/16/25 11:35 05/16/25 11:35 05/16/25 11:35 05/16/25 11:35
Cardiovascular:: Regular rate and rhythm
Respiratory:: Bilateral: Coarse
Lung Excursion:: Normal
Abdomen:: Nontender and Soft
Bowel Sounds:: Normal
Extremity Edema:: +1: Bilateral:
Olea Catheter: No
--- NOTE | 2025-05-16 12:14 | PTCARENOTE ---
Pt received this am oob in the chair. Denies any pain or sob. Room air sat 90 - 94%. Sent to IR for thoracentesis and returned at 1210. Bandaid to right back dry and intact.
[2025-05-16 12:16] LABS: Glucose - Point of Care 197 mg/dl (70-99)
[2025-05-16] MEDS: NOVOLOG FLEXPEN-MODERATE RESISTANCE 1 UNITS SC (12:29)
[2025-05-16] MEDS: ALPHAGAN 0.2% EYE DROPS 1 DROP BOTH EYES (12:29)
--- NOTE | 2025-05-16 12:35 | W.PN.CARDCBS ---
Today's Communication / Plan
-
Status post left thoracentesis today
HD Wednesday
Continue Toprol 12.5 mg daily, Eliquis 5 mg twice daily
Plan for home with visiting nurses
Outpatient cardiac follow-up arranged
Impression / Plan
-
PCP: Dr. Eason
Primary School Librarian: Dr. Sutton
Impression:
Admitted 04/18/2025 with acute CHF and JAY
Acute on chronic HFrEF, proBNP 18,500
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
Recent admission for shock, anemia, GI bleed 03/11/2025 until 03/17/2025
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
Severe since 2018
s/p TAVR work-up with MPG 27 at time of cath and not recommended TAVR 01/2023
RHC/LHC 03/15/2025 MPG 28 mmHg, stable CAD
s/p R TF Donovan TAVR 05/11/25
ICM EF 31%, echo 03/12/2025
History of reduced ejection fraction heart failure with recovered EF
CAD status post CABGx4 in setting of IA in 2001
carotid disease s/p left CEA in 2012
s/p Medtronic single chamber ICD 2017
Persistent Afib
Chronic Eliquis OAC
DM 2
Gout
Smoker, ongoing tobacco use
Previous CV studies:
Echo 08/23/2019: EF 30-35%, global hypokinesis with inferolateral, inferior and basal septal akinesis, mild MR, sev pressure 47/28 mmHg
ECHO 12/03/22: EF 50%, mild LVH, stage III diastolic dysfunction, mild MR, severe with peak/mean gradients 54/28 mmHg, KAELYN 0.8 cm�, trace AR, mild TR, PAP 64 mmHg, mild dilation of aorta measuring 4.0 cm
Echo 10/09/2024: EF 35 to 40%, moderate eccentric MR, severe peak/mean 60/34 mmHg and KAELYN 0.8 cm sq, mild aortic insufficiency, moderate TR with PAP 64 mmHg
Echo 03/12/2025: EF 31%, global hypokinesis, moderate MR, severe peak/mean 41/22 mmHg and KAELYN 0.7 cm sq, mild aortic regurgitation, moderate to severe TR with PAP 72 mmHg
Echo 05/11/2025: s/p TAVR with #29 Donovan BLAISE 3 aortic valve prosthesis with peak/mean 6/3 mmHg, mild MR, moderate to severe TR with PAP 60 mmHg
Right heart cath/left heart cath 03/15/2025: RA 14, PA 67/28, PCWP 24, LVEDP 18, CO/CI 5.4/3.0, aortic valve with mean pressure gradient 28 mmHg, KAELYN 0.95 cm�.
LAD 100% occluded midportion, NAVAS to LAD versus diagonal is patent to either mid LAD or diagonal branch with anterograde and retrograde filling well-developed septal collaterals from RCA noted. Ramus occluded at origin distal fills via patent free
radial to ramus graft. Circumflex 100% occluded at origin, RCA occluded with patent SVG to PDA. Graft angiography: NAVAS as above, free radial to ramus widely patent, SVG to OM1 100% occluded, SVG to PDA 50 to 55% stenosis in the mid
[facility] 05/03/2025: Hemodynamics (mmHg):RA (m) : 16, RV (s/d,m) : 68/10, 13, PA (s/d, m) : 67.35, 47, PCWP (m) : 39 with V waves up to 47, PA saturation: 57.9% on 8 L of oxygen via nasal cannula, AO saturation: 88% on 8 L of oxygen via nasal cannula
using noninvasive pulse ox, RA saturation: 60% on 8 L of oxygen via nasal cannula. Cardiac Output : 5.03 L/min by Tejas calculation, Cardiac Index : 2.75 L/min/m-2 by Tejas calculation Systemic vascular resistance: 1208 dsc^(-5), Pulmonary vascular
resistance: 1.59 huang unit
Plan:
-He was admitted with acute CHF and JAY back on 04/18/2025. Also with ischemic cardiomyopathy and severe .
-he continues to do well post TAVR
-s/p L thoracentesis today for 1700 cc.
-Patient was newly started on HD this admission and nephrology continues to follow. Hemodynamics during HD improved following TAVR 05/11/2025. Cr 1.7 on 05/16
-s/p tunneled HD CVC 05/14. nephrology planning for OP AVF creation, ok from cardiac standpoint to proceed
-echo post TAVR 05/11 with mean gradient 3mmHg. remains with mod to severe TR, will need to be followed as OP
-GDMT of CM has been limited by hypotension and JAY. Patient is currently tolerating Toprol-XL 12.5 mg daily and has been weaned off of midodrine. uptitrate as OP as able
-planning for home with VN and OP HD TuThSa
-OP cardiac follow up and cardiac rehab arranged
-d/w nursing, CM
HPI 04/19/2025:
History of Present Illness:
Patient came to the ER 04/18/2025 with weight gain and increasing lower extremity edema despite up titration of outpatient diuretics. He is a 79-year-old male with a history of permanent atrial fibrillation, aortic stenosis with previous evaluation
for TAVR with repeat eval currently undergoing( eval in 2016, 2022-mean gradient on LHC 27 and TAVR not advised), coronary artery disease, status post CABG, recurrent GI bleeds, chronic kidney disease, ICD, anemia, smoker. He had a previous
admission to [facility] 03/11/2025 - 03/17/2025 with near syncope and a fall, shock. Hemoglobin 6.7, creatinin e 2.6 (baseline 2.0) diuretics (Lasix, Metolazone, Spironolactone) and Coreg held most of admission and restarted at lower outpatient dose.
Required midodrine for BP support. Seen by GI and GI bleed thought to be due to AVMs. 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 Eliquis resumed 5 days after endoscopy, at
lower dose 2.5 mg bid. Repeat TAVR evaluation performed with echo and right and left heart cath (mean gradient 28)and patient is being considered for TAVR, structural heart team plans to discuss him at meeting tomorrow.
CT TAVR 04/16/2025 with measurements to be added as separate addendum, had moderate right and small left pleural effusion
Patient was discharged on 03/31/2025 furosemide 40 mg twice daily, midodrine 5 mg 3 times daily, apixaban 2.5 mg twice daily (dose lowered due to CKD) and atorvastatin. Metolazone, spironolactone, and carvedilol were all held.
Weight progressively increasing since last discharge on 03/17/2025, weight at that time 151 pounds, weight on admission 04/18/2025 180 pounds. Outpatient Lasix has been uptitrated over past month to 120 mg twice daily and metolazone restarted at 2.5
mg --, initially with stable creatinine at 1.56 on 04/02/2025, but 2.1 on 04/18/2025 and progressive weight gain.
Progress Note - School Librarian
Subjective
Date of Service: May 16, 2025
Feeling well. Status post thoracentesis. Does report some right arm discomfort after 'sleeping on it wrong'.
Objective
Labs:
05/16/25 03:50
05/16/25 03:50
Labs
Hgb 9.4 g/dL (13.0-18.0) L 05/16/25 03:50
Hct 29.5 % (39.0-52.0) L 05/16/25 03:50
Plt Count 111 10^3/uL (130-400) L 05/16/25 03:50
PT 17.8 Sec (11.4-14.6) H 05/10/25 11:15
INR 1.42 05/10/25 11:15
APTT 39.0 Sec (23.4-35.0) H 05/10/25 11:15
Sodium 131 mmol/L (135-145) L 05/16/25 03:50
Potassium 3.7 mmol/L (3.5-5.1) 05/16/25 03:50
BUN 25 mg/dl (9-20) H 05/16/25 03:50
Creatinine 1.7 mg/dL (0.7-1.3) H 05/16/25 03:50
Glucose 176 mg/dl (70-99) H 05/16/25 03:50
Vital Signs and I&O:
Vital Signs
Temp Pulse Resp BP Pulse Ox
97.5 F 62 15 105/51 93
05/16/25 12:17 05/16/25 12:17 05/16/25 12:17 05/16/25 11:35 05/16/25 12:17
Vital Signs
Temp Pulse Resp BP Pulse Ox
97.5 F 62 15 105/51 93
05/16/25 12:17 05/16/25 12:17 05/16/25 12:17 05/16/25 11:35 05/16/25 12:17
Intake & Output
05/14/25 05/15/25 05/16/25 05/17/25
07:59 07:59 07:59 07:59
Intake Total 420 / 420 150 / 150
Output Total 100 / 100 150 / 150 150 / 150
Balance -100 / -100 270 / 270 0 / 0
Physical Exam
Physical Exam
GEN: No distress, awake, alert, oriented x3. Sitting in chair
HEENT: supple, anicteric, mmm, EOMI
LUNGS: Few crackles and expiratory wheezes at right lung base
CV: Irreg, S1/S2, 1/6 syst LSB
ABD: soft, BS+, NT/ND
EXT: No cyanosis, clubbing. 1+ edema of bilateral lower extremity
NEURO: Gross non-focal
SKIN: Warm, pink, dry. No rash
[2025-05-16] MEDS: NON-FORMULARY ITEM 1 UNIT BOTH EYES (14:14)
--- NOTE | 2025-05-16 15:49 | CM ---
Met with and Mrs. An to review discharge plans. She called early this a.m asking if he could stay until tomorrow until after his dialysis because the family doctor thought that would be the best. The problem was that a new
outpatient dialysis can not start on a Wednesday at [facility]. Reviewed the issues and concerns with them. The outpatient dialysis center has wheelchairs that she can use to get him into the dialysis center. The [facility] gave an option of going Wednesday at 11:45 for outpatient dialysis and then a short treatment on Wednesday. Reviewed all the options with them and she has decided to go home today and stay with the outpatient treatment of Wednesday,
and Wednesday schedule. He was assessed for home and he did not qualify for home . Today he ambulated 60 feet with a rolling walker and supervision. Medical work-up in progress. The discharge plan is to retrun h ome with [facility] and outpatient dilaysis at [facility] when medically stable.
--- NOTE | 2025-05-16 16:11 | W.DCSUMMARY ---
Discharge Summary
Discharge Data
Date of Admission: 04/18/25
Date of Discharge: 05/16/25
Total time spent discharging patient (in min): 35
-
Pending Results: No
Hospital Course
Discharging Physician : Sean Amaral; Cat German
Disposition : to home with VN, home PT
Primary care physician :
PCP: Dr. Eason
Inside Sales Advisor: Dr. Yates
Clinical Genetics Laboratory Chief: Dr. Sutton
Principal Discharge diagnosis : Acute on chronic HFrEF; severe aortic stenosis status post TAVR; CKD stage IIIb; cardiorenal syndrome
Chronic Discharge diagnoses : Atrial fibrillation; coronary artery disease status post CABG and stent; chronic hypotension; HLD; type 2 diabetes; BPH; tobacco abuse
Hospital Course :
Admission 04/18/25: Presented with chief complaint of increasing lower extremity edema. Denied chest pain or shortness of breath on admission. Had been admitted for acute blood loss in s/o GI bleed (discharged 03/19/2025 ), after which his home
diuretics (lasix 50mg bid, metolazone 2.5mg daily) had been temporarily paused. However, MELVIN had progressed with restarting home diuresis. On admission, afebrile, normotensive, not tachycardic, tachypneic with RR 25, O2 saturation 88% on room air.
Labs notable for troponin 0.081, hemoglobin 11.6, sodium 131, creatinine 2.4 (baseline 2.0), BNP 75495. Weight 82 kg (up from dry weight of 72-73 kg). CXR demonstrated pulmonary edema with moderate right and small left pleural effusions;
cardiomegaly.
Course:
Patient was initially started on IV Lasix 80 mg twice daily along with 2.5 mg daily metolazone to address volume overload in the setting of HFrEF. Patient did not have adequate response to diuresis (in terms of MELVIN, weight, uptrending creatinine
from 2.4 up to 2.8 after a few days). Given this, metolazone was held and Lasix was upgraded to a drip on 04/30. Given continued lack of adequate response to diuresis, metolazone was added back on 04/23, and cardiology team began discussions around
TAVR planning to address underlying severe aortic stenosis. Patient's creatinine began responding and downtrending to 2.1 jamel, and IV Lasix drip was stopped and converted to 160 mg IV Lasix 3 times daily on 04/27. Given patient's ongoing
hypokalemia, hyponatremia, and alkalosis, metolazone was transitioned to acetazolamide IV 250 mg twice daily on 04/28. CT with IV contrast of lower extremities was performed on 04/28 for TAVR staging.
Following this, creatinine began to trend back upwards towards 2.7-2.8. Per discussion with nephrology team, all diuretics were held by 05/01 while awaiting plateau of creatinine in the setting of what was presumed to be contrast nephropathy
superimposed on existing cardiorenal syndrome.
Patient's O2 status throughout this time had been stable on 2 to 4 L of O2 nasal cannula. Patient underwent thoracentesis on 04/30 which yielded transudative fluid.
By 05/02 patient was approaching his dry weight (72 to 73 kg), at 74.8 kg. He was also improving clinically with minimal MELVIN and improved respiration.
On 05/03, right heart cath was performed, which demonstrated significantly elevated right and left-sided filling pressures with normal cardiac output. Given this, cardiology and nephrology teams decided to reinitiate aggressive diuresis while
monitoring renal function and planning for eventual inpatient TAVR. Patient was therefore restarted on IV Lasix 80 mg twice daily, which was continued through 05/08. Patient creatinine only down trended minimally to 2.5. Given this, decision was
made to initiate hemodialysis. Temporary catheter was placed and hemodialysis was initiated on 05/08. Therapeutic thoracentesis (right sided) was also repeated on 05/08.
Patient received hemodialysis on 05/09 and 05/10 while monitoring renal status in preparation for TAVR. During this time he only received p.o. Lasix. By 05/10 creatinine had down trended to 1.7.
Patient underwent successful TAVR procedure on 05/11, and hemodialysis was also repeated on 05/11. Creatinine fluctuated during this time from 1.7-2.2, with patient's baseline likely somewhere in this range. During this time patient was intermittently
being successfully weaned from O2 nasal cannula and then requiring 1 to 2 L again.
Discharge planning involved placement of tunneled dialysis catheter on 05/14 and establishment of outpatient hemodialysis with [facility] in [place] for a Wednesday//Wednesday hemodialysis schedule outpatient. Planning ultrasound for AV
fistula formation was performed on 05/15, and patient received 1 more round of inpatient hemodialysis on 05/15.
On 05/16, patient received a final R-sided therapeutic thoracentesis to optimize respiratory status prior to discharge. Home O2 assessment following thoracentesis found no home O2 requirement necessary; 93% on room air at rest and 90% O2 on room air
with ambulation. Patient discharged to home (lives with ) with visiting nurse and home PT.
Next hemodialysis outpatient appointment scheduled for 05/17 on schedule. Patient discharged without home diuretics at this point in time. Encourage near-term outpatient follow-up with tank car loader and health promotion coordinator.
Other:
- Patient's home metoprolol succinate 12.5 mg daily and midodrine 5 mg 3 times daily were continued throughout hospitalization, other than at time of TAVR. On 05/15, midodrine was weaned to 2.5 mg twice daily, and abdominal binder and compression
stockings were added to patient's regimen for improved orthostatic hypotension control/support. Patient discharged on metoprolol succinate 12.5 mg daily and midodrine 2.5 mg twice daily.
- Patient's home Eliquis was also continued throughout hospitalization. Patient's glucose was controlled with insulin glargine and sliding scale insulin; glargine was increased periodically during admission up to 18 units rather than 14 home units
in order to compensate for hyperglycemia inpatient. Home insulin and home Eliquis to be continued at discharge.
Important imaging findings:
- 04/18: CXR demonstrating pulmonary edema with moderate right and small left pleural effusions; cardiomegaly.
04/28: CT lower extremities w IV contrast for TAVR staging
04/30: CXR demonstrating a minimally increased moderate/large right-sided pleural effusion with similar appearance of the small left pleural effusion. Adjacent airspace opacities which likely represent compressive atelectasis.
- 05/08: CXR demonstrating right pleural effusion improved following thoracentesis.
- 05/10: Carotid artery ultrasound (pre-TAVR)
1. Calcified plaque within the right carotid bulb, measurements suggestive of less than 50% stenosis as per modified Society of Radiologists in Ultrasound consensus criteria (IAC carotid criteria white paper, 2020). No significant progression
compared to prior study.
2. Left carotid endarterectomy site is widely patent.
3. Right vertebral artery was not visualized due to bandages from recent dialysis catheter placement.
- 05/11: Echocardiogram (s/p TAVR)
1. Left ventricular ejection fraction is severely reduced with an ejection fraction of 24 % by Cuellar's biplane method of discs.
2. Status post transcatheter aortic valve replacement. 29 mm Donovan Maria Luisa 3 aortic valve prosthesis is noted with peak/mean gradients are of 6 and 3 mmHg respectively is noted
3. Mild mitral valve regurgitation.
4. Moderate to severe tricuspid regurgitation.
5. Tricuspid valve opens normally. moderate to severe tricuspid regurgitation. Estimated pulmonary artery pressure of 60 mmHg assuming a right atrial pressure of 15 mmHg.
6. When compared to the most recent echocardiogram from 03/12/25, the LVEF is now estimated at 24% and was previously estimated at 31%. A 29 mm transcatheter aortic valve is now present with a mean gradient of 3 mmHg.
- 05/15: CXR demonstrating moderate right lower lobe pneumonia versus a layering pleural effusion; progressed. Findings suggesting mild left lower lobe pneumonia versus layering pleural effusion; new.
- 05/15: Ultrasound for AV fistula planning
- 05/16: CXR demonstrating improved right pleural effusion. Haziness of both hemidiaphragms, which may be reflective of small bilateral pleural effusions.
Procedure findings:
Procedures during admission:
1. IR-guided thoracentesis (04/30) - R side; yielded 1850 cc of straw colored pleural fluid
2. R heart catheterization (05/03)
Hemodynamics (mmHg):
RA (m) : 16
RV (s/d,m) : 68/10, 13
PA (s/d, m) : 67.35, 47
PCWP (m) : 39 with V waves up to 47
PA saturation: 57.9% on 8 L of oxygen via nasal cannula
AO saturation: 88% on 8 L of oxygen via nasal cannula using noninvasive pulse ox
RA saturation: 60% on 8 L of oxygen via nasal cannula
Cardiac Output : 5.03 L/min by Tejas calculation
Cardiac Index : 2.75 L/min/m-2 by Tejas calculation
Systemic vascular resistance: 1208 dsc^(-5)
Pulmonary vascular resistance: 1.59 huang unit
3. IR-guided thoracentesis (05/08) - R side; yielded 1600 cc of straw colored pleural fluid
4. Nontunneled right internal jugular hemodialysis catheter placement (05/08)
5. TAVR (05/11) - Placement of 29 mm Donovan Maria Luisa S3 aortic valve via right common femoral approach (placement confirmed w CXR & echo)
6. Conversion of nontunneled dialysis catheter to a tunneled dialysis catheter (05/14)
7. IR-guided thoracentesis (05/16) - R side; yielded 1700 cc of clear mehul pleural fluid
Discharge Plan
-
Patient Disposition: Home with Home Care
Discharge Diagnosis/Procedures: s/p TF-TAVR; HFrEF; CKD IIIb
Condition: Good
Diet: Low Cholesterol and 2 Gram Sodium
Activity: As tolerated
Driving Restrictions: No driving for 1 week
Bathing Restrictions: OK to Shower
Others Tests: 30-day follow-up echocardiogram is scheduled for you at [facility] on 06/08/2025 at 11:20am.
Your next hemodialysis appointment is scheduled for , 05/17, at [facility].
You will be receiving hemodialysis each week on Wednesday, , & Wednesday.
Other Services: VN and Cardiac Rehab
Wound Care: Please do not apply lotions, creams or powders to the groin area. Please monitor for increased redness, pain, swelling or drainage at the site of your groin incision. Call your doctor if any occur.
Specialty Instructions: Weigh Daily- Call MD for wt gain/loss 3 lbs overnight/5 lbs in 1 week
Activity Restrictions/Additional Instructions:
Use compression stockings to help keep your blood pressure from dropping too much when you stand up.
Instructions: *[facility] Heart Failure Instructions
Stand Alone Forms: DC Instructions- Cath/EP Lab
Referrals:
[facility] [Outside]
[facility] [Outside]
Christiano Olea III, MD [Active, Vascular Surgery] - 05/21/25 11:15 am
Nazario Sutton MD [Active, Cardiology] - 05/21/25 8:40 am
Referral Note: You have a cardiology follow-up appointment at the [place] office. Please call with questions
Christiano Eason MD [Family Provider, Family Practice] - in one to two weeks
Cherie Peres MD [Active, Nephrology]
Additional Discharge Medication Instructions: - Take midodrine 2.5mg 2x/day every day
- Continue taking metoprolol succinate 12.5 mg daily
- STOP taking metolazone
- STOP taking furosemide
- Wear compression stockings to help avoid drops in your blood pressure when standing up
- Continue taking the rest of your home meds as before: apixaban 5mg 2x/day, atorvastatin 80mg daily, home insulin dose (3U aspart, 14U glargine)
Prescriptions:
New
midodrine 2.5 mg Tablet
2.5 mg PO BID 90 Days Qty: 180 0RF
metoprolol succinate 25 mg Tablet Extended Release 24 Hr
12.5 mg PO DAILY 90 Days Qty: 45 0RF
(DME) compression socks, medium Misc
See Rx Instructions .Route Qty: 2 0RF
Rx Instructions:
As directed
Continued
cyanocobalamin (vitamin B-12) 1,000 MCG tablet
1,000 mcg PO DAILY
atorvastatin 80 mg Tablet
80 mg PO DAILY
insulin glargine [Lantus Solostar U-100 Insulin] 100 unit/mL (3 mL) insulin pen
14 unit SC HS
insulin aspart U-100 [Novolog FlexPen U-100 Insulin] 100 unit/mL (3 mL) insulin pen
3 unit SC AC Qty: 15 0RF
therapeutic multivitamin Tablet
1 tab PO DAILY
omeprazole 40 mg Capsule,Delayed Release(Dr/Ec)
40 mg PO BID
allopurinol 300 mg Tablet
150 mg PO BID
Fruit and Vegetable Daily 5-6-150 mg Capsule
1 cap PO DAILY
Eliquis 5 mg Tablet
5 mg PO BID
zolpidem [Ambien] 5 mg Tablet
5 mg PO HSPRN PRN (Reason: sleep)
brimonidine 0.1 % Drops
1 drp BOTH EYES BID@1200,2200
brinzolamide drops
See Rx Instructions .ROUTE .COMPLEX
Rx Instructions:
bid AT 12:00 AND 00:00 into both eyes
10MG IN EACH DROP
Held
potassium chloride 20 mEq tablet,ER particles/crystals
20 meq PO BID
Hold Instructions: Resume on 06/05/25. Consider restarting after seeing your outpatient primary care physician and health promotion coordinator. You are not taking diuretics now (we are stopping furosemide for now), so your potassium levels should be more stable
without the supplement.
Discontinued
furosemide 40 mg tablet
160 mg PO BID AT 0800,1600
midodrine 5 mg Tablet
5 mg PO TID@0800,1300,1800 Qty: 90 0RF
metolazone 2.5 mg Tablet
2.5 mg PO DAILY
Discharge Orders:
Discharge Patient (As Directed); Ordered 05/16/25
Ordered By: Cat German
Care Plan Goals
Care Plan Goals:
Problem: Readiness for enhanced knowledge related to diagnosis and treatment plan
Goal: Understand your diagnosis and treatment plan needs, including medications if applicable.
Instructions: Know your diagnosis, underlying causes and treatment plan options, including medications if applicable. Consult with your health care team to learn about your diagnosis and treatment plan, including medications if applicable.
Discharge Date and Time
Print Language: GREENLANDIC
[2025-05-16] MEDS: ANTIFUNGAL CLEAR TOPICAL (17:14)
--- NOTE | 2025-05-16 18:39 | PTCARENOTE ---
Pt discharged to home with his . Discharge instructions given and reviewed with pt and his with good understanding and all questions answered.
== END 2025-05-16 18:07 | disposition home health service (06) | DRG 266 ==
LOC: IVU 21:01
PROVIDERS: Family Medicine; Internal Medicine; Internal Medicine Interventional Cardiology; Internal Medicine Nephrology; Nurse Practitioner Adult Health; Nurse Practitioner Family; Nurse Practitioner Gerontology; Physician Assistant Medical; Physician Assistant Surgical; Radiology Vascular & Interventional Radiology; Specialist; Student in an Organized Health Care Education/Training Program; ADMITTING PHYSICIAN Hospitalist; ATTENDING PHYSICIAN Hospitalist; CONSULT PHYSICIAN Internal Medicine; EMERGENCY PHYSICIAN Emergency Medicine; FAMILY PHYSICIAN Family Medicine; OTHER PHYSICIAN Internal Medicine Cardiovascular Disease
PROC: 0W993ZZ Drainage of Right Pleural Cavity, Percutaneous Approach (ICD-10-PCS; 2025-04-30)
PROC: 4A023N6 Measurement of Cardiac Sampling and Pressure, Right Heart, Percutaneous Approach (ICD-10-PCS; 2025-05-03)
PROC: 5A1D70Z Performance of Urinary Filtration, Intermittent, Less than 6 Hours Per Day (ICD-10-PCS; 2025-05-08)
PROC: 02H633Z Insertion of Infusion Device into Right Atrium, Percutaneous Approach (ICD-10-PCS; 2025-05-08)
PROC: 02RF38Z Replacement of Aortic Valve with Zooplastic Tissue, Percutaneous Approach (ICD-10-PCS; 2025-05-11)
PROC: 02PA33Z Removal of Infusion Device from Heart, Percutaneous Approach (ICD-10-PCS; 2025-05-14)
PROC: 05HM33Z Insertion of Infusion Device into Right Internal Jugular Vein, Percutaneous Approach (ICD-10-PCS; 2025-05-14)
PROC: 0JH63XZ Insertion of Tunneled Vascular Access Device into Chest Subcutaneous Tissue and Fascia, Percutaneous Approach (ICD-10-PCS; 2025-05-14)
PROC: 0W9B3ZZ Drainage of Left Pleural Cavity, Percutaneous Approach (ICD-10-PCS; 2025-05-16)
DX: I13.0 Hypertensive heart and chronic kidney disease with heart failure and stage 1 through stage 4 chronic kidney disease, or unspecified chronic kidney disease (principal); Z00.6 Encounter for examination for normal comparison and control in clinical research program; I50.23 Acute on chronic systolic (congestive) heart failure; J96.01 Acute respiratory failure with hypoxia; N18.4 Chronic kidney disease, stage 4 (severe); N17.9 Acute kidney failure, unspecified; I48.21 Permanent atrial fibrillation; E87.1 Hypo-osmolality and hyponatremia; J91.8 Pleural effusion in other conditions classified elsewhere; E87.3 Alkalosis; I08.3 Combined rheumatic disorders of mitral, aortic and tricuspid valves; E11.22 Type 2 diabetes mellitus with diabetic chronic kidney disease; I95.1 Orthostatic hypotension; I25.5 Ischemic cardiomyopathy; I5A Non-ischemic myocardial injury (non-traumatic); E87.6 Hypokalemia; N14.11 Contrast-induced nephropathy; T50.8X5A Adverse effect of diagnostic agents, initial encounter; G47.00 Insomnia, unspecified; I25.10 Atherosclerotic heart disease of native coronary artery without angina pectoris; E78.00 Pure hypercholesterolemia, unspecified; M10.9 Gout, unspecified; N40.0 Benign prostatic hyperplasia without lower urinary tract symptoms; J44.9 Chronic obstructive pulmonary disease, unspecified; F17.210 Nicotine dependence, cigarettes, uncomplicated; Z95.5 Presence of coronary angioplasty implant and graft; I25.2 Old myocardial infarction; Z95.810 Presence of automatic (implantable) cardiac defibrillator; Z95.1 Presence of aortocoronary bypass graft; Z79.4 Long term (current) use of insulin; Z79.01 Long term (current) use of anticoagulants
CPT/HCPCS: 32555; 33361; 36556; 36558; 36600; 71045; 71046; 74174; 76937; 77001; 80048; 80053; 81003; 81015; 82040; 82728; 82805; 82945; 82962; 83036; 83540; 83550; 83615; 83735; 83880; 84100; 84132; 84155; 84157; 84302; 84443; 84484; 85025; 85027; 85347; 85610; 85730; 86704; 86706; 86803; 86850; 86900; 86901; 86920; 87015; 87070; 87086; 87205; 87324; 87340; 87449; 88112; 88305; 89051; 93005; 93308; 93321; 93325; 93451; 93880; 93985; 96374; 97110; 97116; 97163; 97164; 97167; 97530; 97535; 99152; 99153; 99284; 99406; C1750; C1760; C1769; C1894; G0257; J1205; P9047; Q5106; Q9967

== ENCOUNTER 2025-05-20 13:15 | Inpatient (IN) | payer MEDICARE, BC, SELFPAY ==
[2025-05-20] VITALS (18 sets, daily range): BP systolic 109–146; BP diastolic 51–86; BMI 27.5; BMI 26.8
[2025-05-20 08:16] LABS: Hematocrit 30.1 % (39.0-52.0); Hemoglobin 10.0 g/dL (13.0-18.0); Mean Corp Hgb Conc. 33.2 g/dL (33.0-37.0); Mean Corpuscular Volume 102.4 fL (80.0-94.0); Nucleated Red Blood Cells % 0 % (-); Platelet Count 111 10^3/uL (130-400); Red Cell Dist. Width 16.6 % (11.5-14.5)
[2025-05-20 08:28] LABS: ALT (SGPT) 15 U/L (0-50); AST (SGOT) 40 U/L (17-59); Albumin 3.1 g/dl (3.5-5.0); Alkaline Phosphatase 138 U/L (38-126); Blood Urea Nitrogen 13 mg/dl (9-20); Calcium 8.4 mg/dl (8.4-10.2); Carbon Dioxide 32 mmol/L (22-30); Chloride 95 mmol/L (98-107); Estimated Creatinine Clearance 40 ml/min; Glucose 124 mg/dl (70-99); Magnesium 1.6 mg/dl (1.6-2.3); Potassium 3.7 mmol/L (3.5-5.1); Sodium 129 mmol/L (135-145); Total Protein 6.2 g/dl (6.3-8.2); eGFR 55.88
[2025-05-20 08:45] LABS: Troponin I 0.210 ng/ml
[2025-05-20 10:41] LABS: Urine Character Clear (Clear)
[2025-05-20 10:51] LABS: Urine Squamous Cell 0-2 /LPF (Few)
--- NOTE | 2025-05-20 11:27 | ED.GENMED ---
History of Present Illness
General
Chief Complaint: Weakness
Source: patient and spouse
Time Seen by Provider: 05/20/25 08:09
History of Present Illness
History of Present Illness:
Note:
CHIEF COMPLAINT(S)
Fuzziness in the brain.
HISTORY OF PRESENT ILLNESS
The patient is a 70-year-old male with a recent history of hospitalization lasting one month. He was discharged last Wednesday but has been experiencing persistent �fuzziness in the brain� since. The initial hospital admission was due to fluid
overload, where he reportedly accumulated approximately 10 to 15 pounds of excess water weight. During the hospital stay, the patient was treated with high doses of diuretics, specifically Lasix (Furosemide), but despite 160 mg tablets twice daily,
required hospitalization to manage the fluid. While hospitalized, the patient underwent a heart valve surgery last Wednesday and is now on dialysis thrice weekly on Tuesdays and .
Post-hospital discharge, the patient has demonstrated intermittent episodes of altered mental status. Last Wednesday, after a therapy session involving ambulation, the patient appeared disoriented with symptoms resembling a transient ischemic episode �
there was eye deviation, absent facial expression, and transient right facial droop noted by the spouse. This episode resolved spontaneously shortly after onset.
This morning, the patient experienced fecal incontinence followed by an episode where he became unresponsive while being assisted from the toilet. The spouse described the patient as 'completely out of it' with upswing eye movements, requiring
assistance to prevent a fall. After roughly two minutes, the patient regained awareness.
Currently, the patient exhibits right facial droop and slurred speech. There is reported weakness in one arm, although the patient denies significant weakness in the limbs.
PAST MEDICAL AND SURGICAL HISTORY
- Recent coronary valve surgery performed during the last hospital admission.
SOCIAL DETERMINANTS AFFECTING HEALTH
- The patients home environment is not adequately equipped for ambulatory aids like walkers, leading to significant mobility challenges.
CHRONIC MEDICAL CONDITIONS SIGNIFICANTLY AFFECTING CARE
- Chronic kidney disease requiring dialysis.
- Diabetes mellitus.
REVIEW OF SYSTEMS
- Neurological: Persistent fuzziness in cognition, transient ischemic-like episodes, right facial droop, slurred speech, perceived weakness in one arm.
- Cardiovascular: Previously reported fluid overload, now managed with dialysis.
PHYSICAL EXAM
General: Alert, no acute distress.
Skin: Warm, dry, with scattered upper extremity ecchymosis noted at various stages of healing
Head: Normocephalic, atraumatic.
Neck: Supple, trachea midline.
Oral, ear, nose, throat: Oral mucosa moist.
Cardiovascular: Bilateral lower extremity edema; stasis changes noted bilaterally. Heart regular.
Respiratory: Non-labored respirations. Crackles at bilateral bases
Gastrointestinal: Abdomen nondistended.
Musculoskeletal: Normal range of motion, normal strength noted, except for perceived unilateral weakness.
Neurological: Alert and oriented, with a right facial droop and speech slurring observed. Right pronator drift noted.
Psychiatric: Cooperative, appropriate mood and affect.
PLAN
1. Obtain a head CT scan to assess potential cerebrovascular events contributing to his symptoms.
2. Evaluate orthostatic vital signs to determine postural hypotension as a potential cause for syncope.
3. Review past medical records, including recent laboratory results and discharge summary from hospitalization. Check for the use of anticoagulants.
4. Monitor neurological symptoms closely with a focus on speech changes and limb weakness.
DIFFERENTIAL DIAGNOSIS
The Differential Diagnosis includes, in no particular order and is not limited to:
1. Transient Ischemic Attack (TIA)
2. Stroke
3. Syncope secondary to orthostatic hypotension
4. Dehydration post-dialysis
5. Electrolyte imbalance
6. Diabetic complications (e.g., neuropathy)
7. Medication side effect, particularly from diuretics
8. Heart failure leading to altered mental status
9. Infection, such as sepsis, leading to delirium
10. Brain tumor or mass effects
EKG
My independent EKG interpretation is:
- Rhythm: Regular
- Heart Rate: 75 beats per minute
- Notable changes: None observed compared to previous EKG
Disposition:
SUMMARY OF ENCOUNTER
The patient, a 70-year-old male with a complex medical history, presented to the emergency department with concerns about altered mental status, right facial droop, and syncope-like events. He has a history of chronic kidney disease, severe aortic
stenosis, and acute on chronic heart failure with a low ejection fraction. The patient was previously hospitalized and recently had a transcatheter aortic valve replacement (TAVR). He is on dialysis and is insulin-dependent for diabetes management.
Upon evaluation, the patient was found to be hypoxic with an oxygen saturation of 87% on room air. A chest X-ray showed a possible right lower lobe infiltrate and bilateral effusions. Lab results indicated hyponatremia, elevated troponin levels, and
improved creatinine from prior levels. His presentation and history raised concerns for a cerebrovascular accident (CVA), although no immediate intervention with thrombolytics was indicated. The case was discussed with both critical care surgery (CT
surgery) and hospitalist teams for further management.
DISPOSITION
Admit.
ASSESSMENT
The patient likely experienced a cerebrovascular accident, contributing to his altered mental status and right facial droop. He also has possible pneumonia based on chest X-ray findings and elevated troponin levels suggest possible cardiac ischemia.
EMERGENCY TREATMENTS ADMINISTERED
Antibiotics administered as a precaution for pneumonia.
MANAGEMENT OF THE PATIENTS CARE WAS DISCUSSED WITH
Management was discussed with the critical care surgery and hospitalist teams regarding the patients admission and further care.
PLAN
Admit the patient for further monitoring and management of his respiratory status, suspected CVA, and potential pneumonia. Continue oxygen support and initiate appropriate treatment for his ongoing medical conditions.
INDEPENDENT REVIEW OF LABS AND INTERPRETATION OF TESTS
My independent review of labs:
- CBC
Normal white blood cell count at 6.1.
- BMP
Hyponatremia at 129, creatinine improved to 1.3.
- Troponin: Elevated at 0.210, up from 0.07 at discharge.
My independent interpretation of the chest X-ray shows bilateral effusions and a potential right lower lobe pneumonic process. An echocardiogram shows trace pericardial effusion but no significant pericardial effusion.
MEDICAL DECISION MAKING
-Complexity of Data Reviewed: Chronic conditions affecting care include chronic kidney disease, severe aortic stenosis, diabetes mellitus, acute on chronic heart failure with low ejection fraction.
DDx list: Transient Ischemic Attack (TIA), Stroke, Syncope secondary to orthostatic hypotension, Dehydration post-dialysis, Electrolyte imbalance, Diabetic complications, Medication side effects, Heart failure, Infection such as sepsis leading to
delirium, Brain tumor.
-Data:
Category 1
External record reviewed: Discharge summary from May 16 and operative report from May 11. The patient had a TAVR and was noted to have chronic kidney disease, cardiorenal syndrome, severe aortic stenosis, and acute on heart failure
with low ejection fraction.
Category 2
My independent interpretation of chest X-ray and echocardiogram confirms bilateral effusions, infiltrate in the right lower lobe suggestive of pneumonia, and trace pericardial effusion.
Category 3
Discussion of management with critical care surgery (CT surgery) and hospitalist teams.
-Risk:
Consideration of care escalation due to the complexity of the patients medical conditions, including potential cerebrovascular events, pneumonia, and cardiac complications.
DIAGNOSIS
- Suspected Cerebrovascular Accident (CVA) (I63.9)
- Pneumonia (J18.9)
- Acute on Chronic Heart Failure (I50.9)
- Chronic Kidney Disease (N18.9)
- Severe Aortic Stenosis (I35.0) status post TAVR
- Diabetes Mellitus (E11.9)
Past History
Past History
ED Past Medical History: Arrthythmia (atrial fibrillation), CAD, CHF, HTN, Hypercholesterolemia, NIDDM, [place], Renal failure and Other (Carotid stenosis, gout, BPH, recurrent epistaxis)
ED Past Surgical History: Cardiac (CABG, PTCA with stent), Cholecystectomy and Other (Carotid endarterectomy)
Social History
Tobacco: Smoker
Alcohol: None
Drug: None
Personal:
Living: with family
Employment: Retired
Family History
Family History: Other (Noncontributory)
Phy Exam
Physical Exam
Physical Exam:
.
Course
Orders/Labs/Results
Orders:
Orders
05/20/25 08:04
Electrocardiogram (*1) Urgent
Reason for Study: Fatigue / Weakness
EKG- Treatment ONCE
CXR2 [CR Chest - 2 Views ] Urgent
Comment:
Reason For Exam: shortness of breath
05/20/25 08:07
Complete Blood Count/With Diff Urgent
Comprehensive Metabolic Panel Urgent
Magnesium Urgent
NT-proBNP Urgent
Troponin I Urgent
05/20/25 08:47
CT Head W/o Iv Contrast Urgent
Comment:
Reason For Exam: R facial droop, RUE weakness, aphasia
05/20/25 10:30
Urinalysis Reflex To Culture Urgent
Date Specimen was Collected: 05/20/25
Time Specimen was Collected: 10:23
Urine Microscopic Reflex Cult Urgent
Urine Culture Urgent
KELLY Source: U
Specimen Description:
Date Specimen was Collected: 05/20/25
Time Specimen was Collected: 10:23
05/20/25 11:52
Cefepime HCl [Maxipime] 2,000 mg IV NOW STA
05/20/25 12:35
Lactic Acid Q4H
Comment: CANCEL 2nd LACTIC ACID IF 1st LACTIC ACID IS LESS THAN 2
Blood Culture Q30M
KELLY Source: Blood/Venous
Specimen Description:
05/20/25 12:41
Stool for Occult Blood Routine
05/20/25 12:52
Blood Culture Q30M
KELLY Source: Blood/Venous
Specimen Description:
STOOL [C difficile Antigen & Toxins] Urgent
KELLY Source: Feces/Stool
Specimen Description:
Date Specimen was Collected: 05/20/25
Time Specimen was Collected: 12:41
Stool Culture Urgent
KELLY Source: Feces/Stool
Specimen Description:
Date Specimen was Collected: 05/20/25
Time Specimen was Collected: 12:41
Stool For WBC Urgent
KELLY Source: Feces/Stool
Specimen Description:
Date Specimen was Collected: 05/20/25
Time Specimen was Collected: 12:41
05/20/25 12:53
Admit/Transfer Patient As Directed
Co-Sign Provider:
Level of Care: Inpatient admission
Assign to:: Telemetry
Physician / Group: Yonas
Diagnosis: Pneumonia
Reason for Telemetry: Other
Other Reason for Telemetry: elevated trop
Date to Stop Telemetry: 05/22/25
Time to Stop Telemetry: 11:00
Reason for Hospitalization: hypoxia
Expected length of stay greater than two midnights?: Yes
ELOS- Estimated Length of Stay in days: 3
I certify the patient meets the requirements for IP care: Yes
05/20/25 12:54
PRN Pain Medication Management As Directed
May give lesser potent ordered pain med per pt: Yes
preference::
Protocol:: Medication orders for pain may be administered in a
manner that supports deferring to patient preference
when the pt is:
- Requesting an ordered lesser potent pain medication.
Least to most potent pain medications are defined
as: acetaminophen < NSAID < tramadol < opioids
(morphine, oxycodone, hydromorphone).
- Requesting a lesser dose of the same medication IF
ORDERED.
- Requesting a less intrusive route of administration
if both routes are prescribed by the provider (PO <
IV).
05/20/25 12:57
Vancomycin [Vancocin] 2,000 mg 0.9% Sodium Chloride 500 ml [Nss] 500 ml IV NOW
05/20/25 16:00
Lactic Acid Q4H
Comment: CANCEL 2nd LACTIC ACID IF 1st LACTIC ACID IS LESS THAN 2
05/22/25 11:00
DC Protocol for Telemetry ONCE
Abnormal Lab Results
05/20/25 05/20/25
08:07 10:30
RBC 2.94 L 10^6/uL
(4.70-6.10)
Hgb 10.0 L g/dL
(13.0-18.0)
Hct 30.1 L %
(39.0-52.0)
MCV 102.4 H fL
(80.0-94.0)
MCH 34.0 H pg
(27.0-31.0)
RDW 16.6 H %
(11.5-14.5)
Plt Count 111 L 10^3/uL
(130-400)
Absolute Lymphs (auto) 0.7 L 10^3/uL
(1.2-3.4)
Absolute Monos (auto) 0.7 H 10^3/uL
(0.1-0.6)
Neutrophils % 75.9 H %
(42.2-75.2)
Lymphocytes % 10.8 L %
(20.5-51.1)
Monocytes % 11.4 H %
(1.7-9.3)
Sodium 129 L mmol/L
(135-145)
Chloride 95 L mmol/L
(98-107)
Carbon Dioxide 32 H mmol/L
(22-30)
Glucose 124 H mg/dl
(70-99)
Alkaline Phosphatase 138 H U/L
(38-126)
Troponin I 0.210 H* ng/ml
Total Protein 6.2 L g/dl
(6.3-8.2)
Albumin 3.1 L g/dl
(3.5-5.0)
Urine Ketones 1+ A
(Negative)
Ur Occult Blood Reflex 1+ A
(Negative)
Urine Bilirubin 2+ A
(Negative)
Leukocyte Esterase Rfl 2+ A
(Negative)
Urine RBC 7-10 A /HPF
(0-2)
Urine Bacteria (Reflex) Moderate A
(Negative)
Urine Albumin (Reflex) 2+ A
(Neg - Trace)
05/20/25 08:07
05/20/25 08:07
Vital Signs
Initial and Last Documented VS:
Initial Vital Signs
Temp Pulse Resp BP Pulse Ox
97.8 F 76 25 123/60 96
05/20/25 08:00 05/20/25 08:00 05/20/25 08:00 05/20/25 08:00 05/20/25 08:00
Last Documented Vital Signs
Temp Pulse Resp BP Pulse Ox
97.8 F 75 25 114/86 95
05/20/25 08:00 05/20/25 12:42 05/20/25 12:42 05/20/25 12:42 05/20/25 12:42
*Radiology
Radiology exam reviewed: preliminary read by ED provider (Right lower lobe infiltrate)
*Pulse Oximetry
SaO2: 97
Nasal Cannula flow liters per minute: 2
Patient hypoxic: yes
*Critical Care Note
Total Time (30-74mins, 75-104mins- exclusive of procedures): 35 minutes
ED Attending Note
-
Portions of this chart may have been created with voice recognition software.� Occasional wrong word or��sound alike� substitutions may have occurred due to the inherent limitations of voice recognition software.
Discharge Plan
Departure
Patient Disposition: Admit
Date of Disposition: 05/20/25
Time of Disposition: 11:59
Admit to: Telemetry
Presentation/result/management discussed w/ accepting MD/DO: Hospitalist
Discharge Problem:
Acute CVA (cerebrovascular accident), Pneumonia, Hypoxia, mild hyponatremia
Interventions
Interventions:
*Risk Screen - Suicide Last Done: 05/20/25 08:00
*General Assessment Last Done: 05/20/25 08:00
*Neglect/Abuse Screening Last Done: 05/20/25 08:00
*ED- Fall Risk Assessment Last Done: 05/20/25 08:00
*ED COVID-19 Vaccine History Last Done: 05/20/25 08:00
ED- Cardiac Assessment Last Done: 05/20/25 08:00
ED- Neurological Assessment Last Done: 05/20/25 08:00
ED- Pulmonary Assessment Last Done: 05/20/25 08:00
[2025-05-20] MEDS: MAXIPIME 2000 MG IV (12:48)
--- NOTE | 2025-05-20 12:49 | CONSULT.CT ---
Consultation
-
Date/Time Consultation Requested: 05/20/25 11:53
Date/Time Consultation Performed: 05/20/25 12:50
Requesting Provider: Cali Martinez
Performing Provider: Ivan Hill PA-C
Reason for Consultation: Recent h/o TAVR
Patient History
Physicians
Family Physician: Dr. Eason
Outpatient Supervisor Agency Appointments: Nazario Sutton MD
History of Present Illness
The patient is a 70-year-old male with a recent history of hospitalization lasting one month. He was discharged last Wednesday but has been experiencing persistent �fuzziness in the brain� since. The initial hospital admission was due to fluid
overload, where he reportedly accumulated approximately 10 to 15 pounds of excess water weight. During the hospital stay, the patient was treated with high doses of diuretics, specifically Lasix (Furosemide), but despite 160 mg tablets twice daily,
required hospitalization to manage the fluid. While hospitalized, the patient underwent a TAVR on 05/11/25. He is on dialysis thrice weekly on Tuesdays and and sees Dr. Edwin Yates from Nephrology.
Post-hospital discharge, the patient has demonstrated intermittent episodes of altered mental status. Last Wednesday, after a therapy session involving ambulation, the patient appeared disoriented with symptoms resembling a transient ischemic episode �
there was eye deviation, absent facial expression, and transient right facial droop noted by the spouse. This episode resolved spontaneously shortly after onset.
This morning, the patient experienced fecal incontinence followed by an episode where he became unresponsive while being assisted from the toilet. The spouse described the patient as 'completely out of it' with upswing eye movements, requiring
assistance to prevent a fall. After roughly two minutes, the patient regained awareness.
Currently, the patient exhibits right facial droop and slurred speech. There is reported weakness in one arm, although the patient denies significant weakness in the limbs.
Past Medical History
Past Medical History: Atrial Fib, CAD, CHF (chronic, systolic), COPD, IDDM and Renal Failure
Gastric AVM's with GIB
Gout
Past Surgical History
Past Surgical History: CABG (x4 2001) and Valve (TAVR)
ICD placement
Lt. CEA 2012
Allergies
Allergy/AdvReac Type Severity Reaction Status Date / Time
grass pollen Allergy SNEEZING Verified 04/18/25 15:57
ragweed pollen Allergy NASAL Verified 04/18/25 15:57
CONGESTION
Home Medications
�Medication �Instructions �Recorded �Confirmed �Type
cyanocobalamin (vitamin B-12) 1,000 mcg PO DAILY Supplement 10/04/19 05/20/25 History
1,000 mcg tablet
atorvastatin 80 mg tablet 80 mg PO DAILY High cholesterol 01/01/23 05/20/25 History
insulin aspart U-100 100 unit/mL 3 unit (0.03 mL) SC AC #15 mL 03/16/25 05/20/25 Rx
(3 mL) subcutaneous pen (Novolog
FlexPen U-100 Insulin aspart)
insulin glargine 100 unit/mL (3 14 unit SC HS Diabetes 04/16/25 05/20/25 History
mL) subcutaneous pen (Lantus
Solostar U-100 Insulin)
potassium chloride 20 mEq 20 meq PO BID Supplement 04/16/25 05/20/25 History
tablet,extended release(part/cryst)
Held on 05/15/25.
Instructions: Resume on
06/05/25. Consider restarting
after seeing your outpatient
primary care physician and
assembler handbags. You are not
taking diuretics now (we are
stopping furosemide for now),
so your potassium levels
should be more stable without
the supplement.
allopurinol 300 mg tablet 150 mg PO BID Gout 04/18/25 05/20/25 History
apixaban 5 mg tablet (Eliquis) 5 mg PO BID Blood Clot 04/18/25 05/20/25 History
Prevention/Tx
brimonidine 0.1 % eye drops 1 drp BOTH EYES BID@1200,2200 Eye 04/18/25 05/20/25 History
Condition
jrkyqtxh-jcvcmq-xkdso extract 5 1 cap PO DAILY Supplement 04/18/25 05/20/25 History
mg-6 mg-150 mg capsule (Fruit and
Vegetable Daily)
omeprazole 40 mg capsule,delayed 40 mg PO BID Gastrointestinal Issue 04/18/25 05/20/25 History
release
therapeutic multivitamin 1 tab PO DAILY Supplement 04/18/25 05/20/25 History
zolpidem 5 mg tablet (Ambien) 5 mg PO HSPRN PRN sleep 04/18/25 05/20/25 History
brinzolamide See Rx Instructions .Route 04/20/25 05/20/25 History
.COMPLEX astigmatism
metoprolol succinate 25 mg 12.5 mg (1/2 x 25 mg) PO DAILY 05/15/25 05/20/25 Rx
tablet,extended release 24 hr Heart Failure 3 months #45 tabs
midodrine 2.5 mg tablet 2.5 mg PO BID hypotension 3 months 05/15/25 05/20/25 Rx
#180 tabs
Review of Systems
-
History Source: Patient
General: Reports No Symptoms
HEENT: Denies Visual Changes
Respiratory: Denies SOB
Cardiac: Reports CAD and Known Vascular Disease; Denies Chest Pain or Edema
Abdomen/GI: Reports Reflux
: Reports No Symptoms
Skin: Reports No Symptoms
Neurological: Reports Other (difficulty speaking)
Physical Exam
Vital Signs
Temp 97.8 F 05/20/25 08:00
Temp route: Oral 05/20/25 08:00
Pulse 75 05/20/25 12:42
Resp Rate 05/20/25 12:42
Blood pressure 114/86 05/20/25 12:42
Blood pressure extremity used: Left upper arm 05/20/25 12:42
Position: Lying 05/20/25 12:42
MAP (cuff-Delores Monitor) 90 05/20/25 12:00
MAP 90 05/20/25 12:42
SaO2 95 05/20/25 12:42
Nasal Cannula flow liters per minute 2 05/20/25 12:42
Acceptable pain level during hospitalization? 5 05/20/25 08:00
Can the patient verbally communicate their pain? Yes 05/20/25 08:00
Actual Weight 74.9 kg 05/20/25 08:00
Body Mass Index (BMI) 27.5 05/20/25 08:00
Labs
05/20/25 08:07
05/20/25 08:07
Troponin I 0.210 ng/ml H* 05/20/25 08:07
Ccm-D-Fwodfnxgpqn Pept 6900 pg/ml 05/20/25 08:07
Urinalysis
Urine Color [place] 05/20/25 10:30
Urine Clarity Clear (Clear) 05/20/25 10:30
Urine pH 5.0 (5.0-9.0) 05/20/25 10:30
Ur Specific [place] 1.015 (<1.030) 05/20/25 10:30
Urine Ketones 1+ (Negative) A 05/20/25 10:30
Ur Occult Blood Reflex 1+ (Negative) A 05/20/25 10:30
Urine Bilirubin 2+ (Negative) A 05/20/25 10:30
Leukocyte Esterase Rfl 2+ (Negative) A 05/20/25 10:30
Urine RBC 7-10 /HPF (0-2) A 05/20/25 10:30
Urine WBC (Reflex) 3-5 /HPF (0-5) 05/20/25 10:30
Ur Squamous Epith Cells 0-2 /LPF (Few) 05/20/25 10:30
Urine Bacteria (Reflex) Moderate (Negative) A 05/20/25 10:30
Urine Glucose Negative (Negative) 05/20/25 10:30
Urine Albumin (Reflex) 2+ (Neg - Trace) A 05/20/25 10:30
Exam
General: Comfortable; Negative Respiratory Distress or Pain
HEENT: Normocephalic, Atraumatic and EOMI
Cardiac: Regular Rhythm; Negative Murmur, Rub or Gallop
GI: Soft, Non Tender and Non Distended
Rectal: Deferred by Provider
Neuro: AO x 3, No Motor Deficits and Other (slurred speach noted, slight facial droop noted)
Extremities: Negative Upper Level Edema or Lower Level Edema
Assessment / Plan
-
9 days post TAVR. Presented to ED with aphasia and h/o TIA like symptoms
- s/p TAVR
- Chronic atrial fibrillation on Eliquis
- Coronary artery disease status s/p CABGx4 in 2001
- Chronic kidney disease IIIb, now on HD
- Chronic systolic CHF
- ICM, s/p ICD (MDT)
- COPD
- Carotid artery disease, s/p L CEA 2012
- DM type II
- BPH
- Gastric AVMs/recent GIB
- Gout
Plan:
-admit to medicine
-neuro consult
-?Echo in AM
--- NOTE | 2025-05-20 14:10 | HPS.HSE ---
Addendum entered and electronically signed by Luis Felipe Branham MD 05/20/25 17:04:
Patient's stool came back positive for C. difficile therefore started on oral vancomycin also had a swallow eval and look like failed swallow eval and speech pathologist recommend strict n.p.o. at this stage until they will further evaluate.
Already discussed with the nurse
Addendum entered and electronically signed by Luis Felipe Branham MD 05/20/25 15:09:
Regarding pneumonia: Cover with a broad-spectrum antibiotic Vanco and cefepime as he was in the hospital recently
Original Note:
Family Physician
-
Family Physician: Christiano Eason
Chief Complaint
-
Generalized weakness and dysarthria
History of Present Illness
79-year-old male who recently discharged from the hospital after he was due for fluid overload and eventually require TAVR, assessment discharge look like he was not been feeling well weak and large and lethargic and having intermittent speech
disturbance and facial droop.
This morning woke up have another episode of the speech disturbance and facial droop and had been having a cough and shortness of breath with exertion and subjective fever and generally weak, concerning for stroke and pneumonia.
He is awake, alert and oriented answer question properly but his speech is clearly dysarthric, denies any weakness or numbness in extremities no headache or vision change or any chest pain or palpitation.
Medical History
Past Medical History
Past Medical History: Reports Other
Additional Past Medical History:
Past medical history:
Chronic kidney disease
Paroxysmal A-fib
CHF with EF around 50
Type 2 diabetes mellitus
Aortic valve disease status post recent TAVR
Coronary artery disease status post CABG
Hiatal hernia
Dyslipidemia
Social history: Lives at home with the family denies smoking alcohol use, ambulates without without bioinformatics assistant: Family history: Positive for hypertension, coronary artery disease and diabetes
Past Surgical History: Reports Other
Social History
Unable to obtain full social history at this time due to: Other
Family History
Family History: Other
Allergies / Home Medications
Allergies reflects when Allergies were last updated in [facility].
Home Medications with original date entered in [facility]
Allergy/Medication List:
Allergies
Allergy/AdvReac Type Severity Reaction Status Date / Time
grass pollen Allergy SNEEZING Verified 04/18/25 15:57
ragweed pollen Allergy NASAL Verified 04/18/25 15:57
CONGESTION
Home Medications
cyanocobalamin (vitamin B-12) 1,000 mcg tablet 1,000 mcg PO DAILY Supplement 10/04/19
atorvastatin 80 mg tablet 80 mg PO DAILY High cholesterol 01/01/23
insulin aspart U-100 100 unit/mL (3 mL) subcutaneous pen (Novolog FlexPen U-100 Insulin aspart) 3 unit (0.03 mL) SC AC #15 mL 03/16/25
insulin glargine 100 unit/mL (3 mL) subcutaneous pen (Lantus Solostar U-100 Insulin) 14 unit SC HS Diabetes 04/16/25
potassium chloride 20 mEq tablet,extended release(part/cryst) 20 meq PO BID Supplement 04/16/25
Held on 05/15/25. Instructions: Resume on 06/05/25. Consider restarting after seeing your outpatient primary care physician and learning and development director. You are not taking diuretics now (we are stopping furosemide for now), so your potassium levels should be
more stable without the supplement.
allopurinol 300 mg tablet 150 mg PO BID Gout 04/18/25
apixaban 5 mg tablet (Eliquis) 5 mg PO BID Blood Clot Prevention/Tx 04/18/25
brimonidine 0.1 % eye drops 1 drp BOTH EYES BID@1200,2200 Eye Condition 04/18/25
ydvlfhls-zjtmkx-nsosr extract 5 mg-6 mg-150 mg capsule (Fruit and Vegetable Daily) 1 cap PO DAILY Supplement 04/18/25
omeprazole 40 mg capsule,delayed release 40 mg PO BID Gastrointestinal Issue 04/18/25
therapeutic multivitamin 1 tab PO DAILY Supplement 04/18/25
zolpidem 5 mg tablet (Ambien) 5 mg PO HSPRN PRN sleep 04/18/25
brinzolamide 1 % eye drops,suspension 1 drp BOTH EYES BID astigmatism ##0 04/20/25
metoprolol succinate 25 mg tablet,extended release 24 hr 12.5 mg (1/2 x 25 mg) PO DAILY Heart Failure 3 months #45 tabs 05/15/25
midodrine 2.5 mg tablet 2.5 mg PO BID hypotension 3 months #180 tabs 05/15/25
Review of Systems
-
A 12 point ROS was completed and negative except as noted: Yes
Physical Exam
Vital Signs
Vital Signs
Temp Pulse Resp BP Pulse Ox
97.8 F 75 25 114/86 95
05/20/25 08:00 05/20/25 12:42 05/20/25 12:42 05/20/25 12:42 05/20/25 12:42
physical exam:
General: Awake, alert and oriented x3, not in distress and holds appropriate conversation. Right-sided facial droop and dysarthria appreciated, tired looking
HEENT: No active discharge, ecchymosis or bruising, moist lips, tongue and mucous membrane.
Eyes: No discharge or red conjunctiva, no nystagmus, pupils are reactive and equal
Neck:Supple, no JVD no bruit no goiter.
Respiratory: Normal AP contour and diameter, normal chest wall movement, normal respiratory effort, no respiratory distress,
Lungs: Good air entry bilaterally, no wheezing or rhonchi, no rales or crackles
Heart: S1, S2 regular, normal rate, no added sound.
Gastrointestinal: Positive bowel sounds, soft, nontender, no guarding or rigidity or organomegaly
Musculoskeletal: , no chest wall abnormality or tenderness. All joints and extremities have good range of motion, no muscle tenderness or any joint swelling or tenderness.
Skin: Warm and dry, no ulceration, normal color.
Neurological: Awake, alert and oriented x3, cranial nerve II-XII grossly intact except right facial droop and dysarthria,, speech clear and comprehensive, good muscle tone, normal sensory and motor function
Psychiatric: Normal mood, normal thought and judgment, normal affect,
Physical Exam
General: Other
Laboratory Results
-
05/20/25 08:07
05/20/25 08:07
Laboratory Results
Lactic Acid 1.2 mmol/L (0.7-2.0) 05/20/25 12:35
Total Bilirubin 1.3 mg/dl (0.2-1.3) 05/20/25 08:07
AST 40 U/L (17-59) 05/20/25 08:07
ALT 15 U/L (0-50) 05/20/25 08:07
Alkaline Phosphatase 138 U/L (38-126) H 05/20/25 08:07
Troponin I 0.210 ng/ml H* 05/20/25 08:07
CT brain: No acute intracranial abnormality noted.
Findings suggesting small old infarcts in the posterior left frontal lobe and left occipital lobe.
Mild periventricular small vessel ischemic disease.
Mild atrophy
Chest x-ray: Findings suggesting mild right lower lobe pneumonia. Progressed.
Tiny bilateral pleural effusions. Progressed.
Data Reviewed
-
CT Scan: Image Personally Visualized and interpreted and Discussed with Patient
Medical Tests (Nuc Med, Echo, EKG etc): Image Personally Visualized and interpreted, Report Reviewed by me and Discussed with Patient
Lab Data: Labs Reviewed by me and Discussed with Patient
Old Records: Reviewed
Impression/Plan
-
IMPRESSION:
79-year-old male was recently discharged from the hospital after had a TAVR, Presented with right-sided facial droop and expressive aphasia.
Strokelike symptoms:
Cardiac monitoring
, Continue Eliquis
Neurology consult on the rest of the plan
Statin
PT OT and swallow eval
MRI and MRA head and neck
Elevated troponin, likely demand ischemia
Cardiology consult
Diabetes: Continue with insulin and monitor blood sugar
End-stage renal disease on dialysis, creatinine 1.3
Nephrology consult.
--- NOTE | 2025-05-20 14:11 | CM ---
software qa manager reviewed patient's chart and met with patient and spoke with patient's spouse by phone, patient lives with his spouse and son in a 2 story home with 2 steps to enter, patient has a 1st floor set up. Patient required some assist with
adl's and used a cane with ambulation. Patient is currently requiring oxygen, and patient did not have oxygen prior to admission, patient was recently discharge from [facility] to home with [facility], patient with ESRD and is on HD,
sat at 12:00 [facility] in [place], family transports patient to HD. Patient is current with [facility], per spouse patient may need rehab, their first choice is [facility], at [facility]. software qa manager made patient's spouse aware that [facility] may not
accept to due rehab diagnosis and HD requirements. Needs PT/OT evaluations.
PCP: Dr Eason
Pharmacy: [facility].
--- NOTE | 2025-05-20 14:13 | CON.NEURO ---
Consultation
Order
Date of Consultation: 05/20/25
Requesting Provider: Luis Felipe Branham MD
Reason for Consult: Stroke, recent TAVR
Neurology Consultation Note.
HPI: This is a 79-year-old man who presented to [facility] on 2024 with acute onset of speech difficulties and a spell. The patient reported experiencing some slurring of his words, which began this morning after waking up from
sleep without any prior issues. This morning, the patient experienced fecal incontinence followed by an episode where he became unresponsive while being assisted from the toilet with upswing eye movements lasting for around two minutes.
According to EMR last Wednesday, after a therapy session involving ambulation, the patient appeared disoriented with transient right facial weakness noted by the spouse. This episode resolved spontaneously shortly after onset.
ER VS: 123/60, 78, afebrile
EKG: V paced.
PDMP: No Rx medication
Labs: Sodium�129, glucose�124, creatinine�1.3, normal lactic acid, MCV�102.4, platelets�111: PTT�39.0, Mg 1.6
CT head wo contrast-small old infarcts in the posterior left frontal lobe and left occipital lobe.
PMH: CKD, A-Fib, C3-C5 mod-severe stenosis, CAD, HTN, CM, chronic HFrEF, DM, gout, polyneuropathy, glaucoma, insomnia, history of GI bleed, nicotine dependence
PSH: TAVR(May, ), IR-guided thoracentesis(05/16/2025), BL CEA, CABG, ICD, umbilical hernia repair, cholecystectomy
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
FH: Noncontributory to current presenting
All:NKDA
ROS: General: Positive for some weight loss.
HEENT: Positive for mild speech difficulties
Cards: Positive for leg edema
Neuro: Positive for dysarthria
General: Chronically ill looking.
Cardio: irregular rate and rhythm without murmur. Extremities are 2+ edema.
Neuro:
Mental Status: Alert, oriented to person, place, date was incorrect. Impaired attention and preserved comprehension. Follows simple requests consistently.
Cranial Nerves: Pupils are equally round and reactive to light. EOMs full. Visual miller full to confrontation. No ptosis. No nystagmus. V1-V3 intact to light touch and pinprick bilaterally, symmetric. Right facial weakness , impaired hearing
AU. The palate elevated well. SCMs and traps 5/5. Tongue midline. Mild to moderate dysarthria.
Motor: No pronator drift, drifts lower extremities symmetrically to the bed plane
Reflexes: Negative grasp bilaterally
Coordination: No dysmetria or tremor.
Gait: deferred
Assessment and Plan:
I. Probable left MCA distribution stroke.
II. Permanent atrial fibrillation
III. History of Bl CEA.
IV. Mixed encephalopathy (vascular, metabolic)
V. s/p TAVR
-Continue Telemetry monitoring
-Aspiration precautions
-Aspirin 81 mg once a
-Hold Eliquis until brain MRI is completed
-Confirm if medication administration is reliable
-Lipitor 40 mg QHS.
-Brain MRI without lennox lennox if ICD is MRI compatible or repeat CT head without contrast in 24 hours from the initial one
-Carotid Doppler ultrasound
-PT.
-DVT prophylaxis.
I personally reviewed all radiology and labs along with past medical records pertinent to current medical problems. Total time spent in patient care is 60 minutes.
Thank you for allowing us to participate in the care of this patient. We will continue to follow. Please do not hesitate to contact us with any questions or concerns.
Subjective/Objective
Subjective Data
Date of Service: May 20, 2025
Objective Data
Vital Signs
Temp Pulse Resp BP Pulse Ox
36.6 C 75 25 114/86 95
05/20/25 08:00 05/20/25 12:42 05/20/25 12:42 05/20/25 12:42 05/20/25 12:42
Lab Results
05/20/25 08:07
05/20/25 08:07
Sodium 129 mmol/L (135-145) L 05/20/25 08:07
Potassium 3.7 mmol/L (3.5-5.1) 05/20/25 08:07
BUN 13 mg/dl (9-20) 05/20/25 08:07
Glucose 124 mg/dl (70-99) H 05/20/25 08:07
Calcium 8.4 mg/dl (8.4-10.2) 05/20/25 08:07
Add-Q-Havpgiihyxd Pept 6900 pg/ml 05/20/25 08:07
Patient Allergies
grass pollen Allergy (Verified 04/18/25 15:57)
SNEEZING
ragweed pollen Allergy (Verified 04/18/25 15:57)
NASAL CONGESTION
Medications
-
Active Medications
Generic Name Dose Route Start Last Admin
Trade Name Freq PRN Reason Stop Dose Admin
Acetaminophen 650 mg 05/20/25 13:29
Acetaminophen 650 Mg Rectal Suppository RECTAL 06/17/25 13:28
Q4HPRN PRN
GARCIA, mild pain, or temp >100.4F
Acetaminophen 650 mg 05/20/25 13:29
Acetaminophen 325 Mg Tablet PO 06/17/25 13:28
Q4HPRN PRN
GARCIA, mild pain, or temp >100.4F
Cefepime HCl 1,000 mg 05/20/25 20:00
Cefepime Hcl 1,000 Mg/11.3 Ml Vial IV
Q8H MARGARITA
Dextrose 12.5 grams 05/20/25 13:29
Dextrose 50% (0.5 Grams/Ml) 50 Ml Syringe IV 06/17/25 13:28
[id number] PRN
hypoglycemia
Protocol
Glucagon 1 mg 05/20/25 13:29
Glucagon 1 Mg Vial IM 06/17/25 13:28
PRN PRN
hypoglycemia
Protocol
Guaifenesin 200 mg 05/20/25 14:04
Guaifenesin Oral Solution (200 Mg/10 Ml) Cup PO 06/17/25 14:03
Q4HPRN PRN
cough
Vancomycin HCl 2,000 mg/ 540 mls @ 270 mls/hr 05/20/25 12:57
Sodium Chloride IV 05/20/25 14:56
NOW STA
Vancomycin HCl 1 each/ Device 0 mls @ 0 mls/hr 05/20/25 14:05
IV
PER PROTOCOL MARGARITA
As Directed
Insulin Aspart 0 units 05/20/25 16:30
Insulin Aspart Moderate Resistance 300 Units/3 Ml Pen.Injctr SC 06/17/25 16:29
AC MARGARITA
Protocol
Sodium Chloride 0 flush 05/20/25 14:00
Sodium Chloride 0.9% (Flush) Syringe IV 06/17/25 13:59
PER PROTOCOL MARGARITA
Sterile Water 10 ml 05/20/25 20:00
Sterile Water For Injection 10 Ml Vial IV 06/17/25 19:59
Q8H MARGARITA
Home Medications
�Medication �Instructions �Recorded
cyanocobalamin (vitamin B-12) 1,000 mcg PO DAILY Supplement 10/04/19
1,000 mcg tablet
atorvastatin 80 mg tablet 80 mg PO DAILY High cholesterol 01/01/23
insulin aspart U-100 100 unit/mL 3 unit (0.03 mL) SC AC #15 mL 03/16/25
(3 mL) subcutaneous pen (Novolog
FlexPen U-100 Insulin aspart)
insulin glargine 100 unit/mL (3 14 unit SC HS Diabetes 04/16/25
mL) subcutaneous pen (Lantus
Solostar U-100 Insulin)
potassium chloride 20 mEq 20 meq PO BID Supplement 04/16/25
tablet,extended release(part/cryst)
Held on 05/15/25.
Instructions: Resume on
06/05/25. Consider restarting
after seeing your outpatient
primary care physician and
vice president regulatory. You are not
taking diuretics now (we are
stopping furosemide for now),
so your potassium levels
should be more stable without
the supplement.
allopurinol 300 mg tablet 150 mg PO BID Gout 04/18/25
apixaban 5 mg tablet (Eliquis) 5 mg PO BID Blood Clot 04/18/25
Prevention/Tx
brimonidine 0.1 % eye drops 1 drp BOTH EYES BID@1200,2200 Eye 04/18/25
Condition
ytsxzcxx-ddqdwr-zhpzy extract 5 1 cap PO DAILY Supplement 04/18/25
mg-6 mg-150 mg capsule (Fruit and
Vegetable Daily)
omeprazole 40 mg capsule,delayed 40 mg PO BID Gastrointestinal Issue 04/18/25
release
therapeutic multivitamin 1 tab PO DAILY Supplement 04/18/25
zolpidem 5 mg tablet (Ambien) 5 mg PO HSPRN PRN sleep 04/18/25
brinzolamide 1 % eye 1 drp BOTH EYES BID astigmatism ##0 04/20/25
drops,suspension
metoprolol succinate 25 mg 12.5 mg (1/2 x 25 mg) PO DAILY 05/15/25
tablet,extended release 24 hr Heart Failure 3 months #45 tabs
midodrine 2.5 mg tablet 2.5 mg PO BID hypotension 3 months 05/15/25
#180 tabs
Vital Signs and Labs
-
Vital Signs and Labs:
Vital Signs
Temp Pulse Resp BP Pulse Ox
36.6 C 75 25 114/86 95
05/20/25 08:00 05/20/25 12:42 05/20/25 12:42 05/20/25 12:42 05/20/25 12:42
Lab Results
05/20/25 08:07
05/20/25 08:07
Sodium 129 mmol/L (135-145) L 05/20/25 08:07
Potassium 3.7 mmol/L (3.5-5.1) 05/20/25 08:07
BUN 13 mg/dl (9-20) 05/20/25 08:07
Glucose 124 mg/dl (70-99) H 05/20/25 08:07
Calcium 8.4 mg/dl (8.4-10.2) 05/20/25 08:07
Zhn-H-Wxuwcuffsdv Pept 6900 pg/ml 05/20/25 08:07
Medications
-
Medications:
Generic Name Dose Route Start Last Admin
Trade Name Freq PRN Reason Stop Dose Admin
Acetaminophen 650 mg 05/20/25 13:29
Acetaminophen 650 Mg Rectal Suppository RECTAL 06/17/25 13:28
Q4HPRN PRN
GARCIA, mild pain, or temp >100.4F
Acetaminophen 650 mg 05/20/25 13:29
Acetaminophen 325 Mg Tablet PO 06/17/25 13:28
Q4HPRN PRN
GARCIA, mild pain, or temp >100.4F
Cefepime HCl 1,000 mg 05/20/25 20:00
Cefepime Hcl 1,000 Mg/11.3 Ml Vial IV
Q8H MARGARITA
Dextrose 12.5 grams 05/20/25 13:29
Dextrose 50% (0.5 Grams/Ml) 50 Ml Syringe IV 06/17/25 13:28
[id number] PRN
hypoglycemia
Protocol
Glucagon 1 mg 05/20/25 13:29
Glucagon 1 Mg Vial IM 06/17/25 13:28
PRN PRN
hypoglycemia
Protocol
Guaifenesin 200 mg 05/20/25 14:04
Guaifenesin Oral Solution (200 Mg/10 Ml) Cup PO 06/17/25 14:03
Q4HPRN PRN
cough
Vancomycin HCl 2,000 mg/ 540 mls @ 270 mls/hr 05/20/25 12:57
Sodium Chloride IV 05/20/25 14:56
NOW STA
Vancomycin HCl 1 each/ Device 0 mls @ 0 mls/hr 05/20/25 14:05
IV
PER PROTOCOL MARGARITA
As Directed
Insulin Aspart 0 units 05/20/25 16:30
Insulin Aspart Moderate Resistance 300 Units/3 Ml Pen.Injctr SC 06/17/25 16:29
AC MARGARITA
Protocol
Sodium Chloride 0 flush 05/20/25 14:00
Sodium Chloride 0.9% (Flush) Syringe IV 06/17/25 13:59
PER PROTOCOL MARGARITA
Sterile Water 10 ml 05/20/25 20:00
Sterile Water For Injection 10 Ml Vial IV 06/17/25 19:59
Q8H MARGARITA
Home Medications
-
Home Medications
cyanocobalamin (vitamin B-12) 1,000 mcg tablet 1,000 mcg PO DAILY Supplement 10/04/19
atorvastatin 80 mg tablet 80 mg PO DAILY High cholesterol 01/01/23
insulin aspart U-100 100 unit/mL (3 mL) subcutaneous pen (Novolog FlexPen U-100 Insulin aspart) 3 unit (0.03 mL) SC AC #15 mL 03/16/25
insulin glargine 100 unit/mL (3 mL) subcutaneous pen (Lantus Solostar U-100 Insulin) 14 unit SC HS Diabetes 04/16/25
potassium chloride 20 mEq tablet,extended release(part/cryst) 20 meq PO BID Supplement 04/16/25
Held on 05/15/25. Instructions: Resume on 06/05/25. Consider restarting after seeing your outpatient primary care physician and vice president regulatory. You are not taking diuretics now (we are stopping furosemide for now), so your potassium levels should be
more stable without the supplement.
allopurinol 300 mg tablet 150 mg PO BID Gout 04/18/25
apixaban 5 mg tablet (Eliquis) 5 mg PO BID Blood Clot Prevention/Tx 04/18/25
brimonidine 0.1 % eye drops 1 drp BOTH EYES BID@1200,2200 Eye Condition 04/18/25
cuigfsfo-rqvnrw-cxfwn extract 5 mg-6 mg-150 mg capsule (Fruit and Vegetable Daily) 1 cap PO DAILY Supplement 04/18/25
omeprazole 40 mg capsule,delayed release 40 mg PO BID Gastrointestinal Issue 04/18/25
therapeutic multivitamin 1 tab PO DAILY Supplement 04/18/25
zolpidem 5 mg tablet (Ambien) 5 mg PO HSPRN PRN sleep 04/18/25
brinzolamide 1 % eye drops,suspension 1 drp BOTH EYES BID astigmatism ##0 04/20/25
metoprolol succinate 25 mg tablet,extended release 24 hr 12.5 mg (1/2 x 25 mg) PO DAILY Heart Failure 3 months #45 tabs 05/15/25
midodrine 2.5 mg tablet 2.5 mg PO BID hypotension 3 months #180 tabs 05/15/25
--- NOTE | 2025-05-20 14:22 | PHA.VAN.IN ---
Assessment
- Assessment
Renal Function: Other (patient required HD during last admission for JAY and was discharged on TTS; SCR decreased today)
Concomitant Antimicrobials: cefepime
Plan
- Plan
Initial / Loading Dose: 2000mg - administration pending
Maintenance Regimen: dosing by level
Monitoring: random 05/21 0600
MRSA Screen: Ordered per protocol
Pharmacokinetics Vancomycin I
- -
Patient Age: 79
Patient Sex: Male
Vancomycin Day #: 1
Indication: Pulmonary/Respiratory
Requesting Provider: Dr. Branham
Pertinent Antimicrobial Allergies:
no pertinent antibiotic allergies
Height / Weight:
Height 5 ft 5 in
Actual Weight 74.9 kg
Pertinent Past Medical History: JAY on CKD requiring HD
- Vital Signs / Lab Results
Temp Pulse Resp BP Pulse Ox
97.8 F 75 25 114/86 95
05/20/25 08:00 05/20/25 12:42 05/20/25 12:42 05/20/25 12:42 05/20/25 12:42
Lab Results - Hematology
05/20/25
08:07
WBC 6.1
Lab Results - Chemistry
05/20/25
08:07
BUN 13
Creatinine 1.3
Estimated Creat Clear 40
Albumin 3.1 L
05/20/25
12:35
Lactic Acid 1.2
Lab Results - Urine
05/20/25
10:30
Urine Nitrite (Reflex) Negative
Leukocyte Esterase Rfl 2+ A
Urine WBC (Reflex) 3-5
Ur Squamous Epith Cells 0-2
Urine Bacteria (Reflex) Moderate A
Microbiology Results
05/20/25 12:52 C. difficile GDH Antigen & Toxins - Final
Feces/Stool Toxigenic C.difficile Positive
[2025-05-20] MEDS: VANCOCIN 540 MG IV (14:24)
--- NOTE | 2025-05-20 15:12 | EDRN ---
speech therapy currently at the pts bedside
--- NOTE | 2025-05-20 16:03 | PTOTSP ---
Speech Therapy Evaluation:
Pt presents with signs concerning for oropharyngeal dysphagia, likely acute in the setting of likely CVA. Pt also with chronic risk factor of COPD. At bedside, pt with fairly consistent coughing with thin liquids. Given bedside performance, concern
for neurologic process, and CXR with RLL PNA, recommend NPO at this time.
Recommend:
1. NPO
2. Preferably non-oral; essential medications crushed in puree
3. Oral care 3x/daily
4. MEDICAL LABORATORY TECHNOLOGIST to closely follow to assess candidacy for diet initiation versus need for instrumental assessment
--- NOTE | 2025-05-20 16:23 | W.CON.NEPH ---
Consultation
-
Date/Time Consultation Requested: 05/20/2025 3 PM
Date/Time Consultation Performed: 05/20/2025 3 PM
Requesting Provider: Dr. Branham
Performing Provider: Dr. Yates
Reason for Consultation: ESRD
Medical History
-
Chief Complaint: Confusion
History of Present Illness:
79-year-old gentleman with recent hospitalization at [facility] with severe status post TAVR 05/11/2025. He also has CKD which was progressive and required initiation of dialysis during his last hospitalization. He was discharged with a
dialysis catheter on TTS schedule at [facility]. He has chronic hypotension on mbgkeg-oet-jvqvs midodrine therapy with stable blood pressures. He also has diabetes which is modestly controlled with insulin. He was discharged on
05/16/2025 with plans for visiting nurse follow-up. However, during that timeframe he has had at least 2 episodes of speech difficulties with confusion and unresponsiveness. Because of this he was brought to the emergency room for evaluation. He
does not recall these episodes. There is suspicion that x-ray shows a right sided pneumonia. There is no acute change on his CT of the head. We are asked to assist with management of his ESRD. He was at dialysis on Wednesday without any issues by
his report. He said that there is no difficulty getting to and from dialysis.
Past Medical History
Severe since 2019 s/p TAVR 05/11/2025
ICM EF 30% 03/2025
ESRD
[place]
carotid disease s/p left CEA in 2012
s/p Medtronic single chamber ICD 2017
Persistent Afib
Chronic Eliquis OAC
DM 2
Gout
Smoker, ongoing tobacco use
COPD
Hypercholesterolemia
h/o GIB from AVMs
Past Surgical History: Cholecystectomy and Other (CABG, ICD)
Social History
Tobacco: Smoker (1PPD)
Alcohol: None
Personal:
Living: With Family
Family History
Family History: Not Pertinent
Allergies / Home Medications
Allergy/AdvReac Type Severity Reaction Status Date / Time
grass pollen Allergy SNEEZING Verified 04/18/25 15:57
ragweed pollen Allergy NASAL Verified 04/18/25 15:57
CONGESTION
�Medication �Instructions �Recorded �Confirmed �Type
cyanocobalamin (vitamin B-12) 1,000 mcg PO DAILY Supplement 10/04/19 05/20/25 History
1,000 mcg tablet
atorvastatin 80 mg tablet 80 mg PO DAILY High cholesterol 01/01/23 05/20/25 History
insulin aspart U-100 100 unit/mL 3 unit (0.03 mL) SC AC #15 mL 03/16/25 05/20/25 Rx
(3 mL) subcutaneous pen (Novolog
FlexPen U-100 Insulin aspart)
insulin glargine 100 unit/mL (3 14 unit SC HS Diabetes 04/16/25 05/20/25 History
mL) subcutaneous pen (Lantus
Solostar U-100 Insulin)
potassium chloride 20 mEq 20 meq PO BID Supplement 04/16/25 05/20/25 History
tablet,extended release(part/cryst)
Held on 05/15/25.
Instructions: Resume on
06/05/25. Consider restarting
after seeing your outpatient
primary care physician and
conveyor feeder. You are not
taking diuretics now (we are
stopping furosemide for now),
so your potassium levels
should be more stable without
the supplement.
allopurinol 300 mg tablet 150 mg PO BID Gout 04/18/25 05/20/25 History
apixaban 5 mg tablet (Eliquis) 5 mg PO BID Blood Clot 04/18/25 05/20/25 History
Prevention/Tx
brimonidine 0.1 % eye drops 1 drp BOTH EYES BID@1200,2200 Eye 04/18/25 05/20/25 History
Condition
jjbsassq-aayqnd-gqdhm extract 5 1 cap PO DAILY Supplement 04/18/25 05/20/25 History
mg-6 mg-150 mg capsule (Fruit and
Vegetable Daily)
omeprazole 40 mg capsule,delayed 40 mg PO BID Gastrointestinal Issue 04/18/25 05/20/25 History
release
therapeutic multivitamin 1 tab PO DAILY Supplement 04/18/25 05/20/25 History
zolpidem 5 mg tablet (Ambien) 5 mg PO HSPRN PRN sleep 04/18/25 05/20/25 History
brinzolamide 1 % eye 1 drp BOTH EYES BID astigmatism ##0 04/20/25 05/20/25 History
drops,suspension
metoprolol succinate 25 mg 12.5 mg (1/2 x 25 mg) PO DAILY 05/15/25 05/20/25 Rx
tablet,extended release 24 hr Heart Failure 3 months #45 tabs
midodrine 2.5 mg tablet 2.5 mg PO BID hypotension 3 months 05/15/25 05/20/25 Rx
#180 tabs
Review of Systems
-
Slurred speech
All other systems: Negative unless noted
Physical Exam
Vital Signs
Vital Signs
Temp Pulse Resp BP Pulse Ox
97.8 F 75 25 114/86 95
05/20/25 08:00 05/20/25 12:42 05/20/25 12:42 05/20/25 12:42 05/20/25 12:42
Lab Results
WBC 6.1 10^3/uL (4.8-10.8) 05/20/25 08:07
RBC 2.94 10^6/uL (4.70-6.10) L 05/20/25 08:07
Hgb 10.0 g/dL (13.0-18.0) L 05/20/25 08:07
Hct 30.1 % (39.0-52.0) L 05/20/25 08:07
Plt Count 111 10^3/uL (130-400) L 05/20/25 08:07
Sodium 129 mmol/L (135-145) L 05/20/25 08:07
Potassium 3.7 mmol/L (3.5-5.1) 05/20/25 08:07
Chloride 95 mmol/L (98-107) L 05/20/25 08:07
Carbon Dioxide 32 mmol/L (22-30) H 05/20/25 08:07
BUN 13 mg/dl (9-20) 05/20/25 08:07
Creatinine 1.3 mg/dL (0.7-1.3) 05/20/25 08:07
eGFR 55.88 05/20/25 08:07
Glucose 124 mg/dl (70-99) H 05/20/25 08:07
Calcium 8.4 mg/dl (8.4-10.2) 05/20/25 08:07
Sfh-G-Deuavcollqh Pept 6900 pg/ml 05/20/25 08:07
Albumin 3.1 g/dl (3.5-5.0) L 05/20/25 08:07
CT head 05/20/2025
IMPRESSION:
No acute intracranial abnormality noted.
Findings suggesting small old infarcts in the posterior left frontal lobe and left occipital lobe.
Mild periventricular small vessel ischemic disease.
Mild atrophy
Physical Exam
Patient is awake alert oriented and in no distress. Mood and affect were pleasant, insight and judgment were good. Pupils are equal round and reactive to light, extraocular movements are intact, sclera were anicteric. Hearing was normal, ears and
nose are intact. Oropharynx was clear. Neck was supple with trachea midline and no thyromegaly. Heart was regular rate and rhythm without rubs. Lower extremities without edema. Lungs were with rhonchi and decreased breath sounds to auscultation
bilaterally and with normal excursion. Abdomen was soft, nontender, with normal active bowel sounds, and no hepatosplenomegaly. Skin was without rash and with decreased turgor. Scattered ecchymoses
Data Reviewed
-
Radiology: Image Personally Visualized and interpreted (Chest x-ray 05/20/2025 by my reading cardiomegaly, bilateral opacities less than 05/16/2025)
CT Scan: Report Reviewed by me
Labs: Labs Reviewed by me
Old Records: Reviewed
Assessment/Plan
-
IMP:
TAVR
ESRD
Paroxysmal atrial fibrillation
Chronic hyponatremia
COPD without exacerbation
Chronic heart failure reduced EF 30%
CAD/CABG x 4 (2001)
Medtronic single-chamber ICD, 2017
Carotid disease -s/p left CEA 2012.
Hypotension
DM 2
h/o GI bleed 03/2025 , known h/o AVMS
Confusion
Old CVA
Plan:
Next dialysis Wednesday
Antibiotics for pneumonia
Increase midodrine to 3 times daily
[2025-05-20] MEDS: NOVOLOG FLEXPEN SC (17:03)
--- NOTE | 2025-05-20 17:03 | EDRN ---
nephrology currently at the pts bedside
[2025-05-20 17:09] LABS: Glucose - Point of Care 129 mg/dl (70-99)
[2025-05-20 18:08] LABS: Vitamin B12 909 pg/ml (239-931)
--- NOTE | 2025-05-20 18:20 | EDRN ---
this RN called the receiving IMU nurse Saranya COSME and gave verbal report
[2025-05-20] MEDS: ZYLOPRIM PO (20:56)
--- NOTE | 2025-05-20 21:21 | CON.CAR ---
Consultation
Consultation Request
Date/Time Consultation Requested: 05/20/25
Date/Time Consultation Performed: 05/20/25
Requesting Provider: Dr. Branham
Performing Provider: Dr. Mejia
Reason for Consultation: Stroke, recent TAVR
Medical History
-
Chief Complaint: Change in mental status, stroke symptoms
History of Present Illness:
I had the pleasure to see Gui An in IMU [id number] after he presented back to [facility] with acute change in mental status and focal weakness, facial droop and slurred speech concerning for stroke.
.
Gui is medically complex 79-year-old gentleman with several recent hospitalizations for heart failure with reduced ejection fraction ejection fraction 24-30% with cardiorenal syndrome complicating severe aortic stenosis with initiation of dialysis
May 08 through temporary catheter for optimization prior to TAVR. Pre-TAVR left/right heart catheterization March 15, 2025 with stable coronary artery disease/status post CABG in 2001. He required several thoracentesis both before and after
TAVR, the last May 16, 2025 prior to discharge. He underwent TF TAVR May 11, 2025. Temporary dialysis catheter changed to placement of a tunneled dialysis catheter on May 14 with plan for outpatient dialysis on Wednesday/
and Saturdays and plan for outpatient AV fistula. He has persistent atrial fibrillation on Eliquis anticoagulation which was continued on day of discharge. He also has a Medtronic single-chamber ICD implanted in 2017 and carotid disease status
post left CEA in 2012. He states following discharge he was doing relatively well and woke up this morning initially feeling fine. Details are unclear but from the ER he had fecal incontinence and became unresponsive while being assisted from the
toilet. Episode lasted 2 minutes and he regained awareness but exhibited a right facial droop, slurred speech and weakness. Per record, last Wednesday patient had transient episode of eye deviation/facial droop that resolved. Neurology and
nephrology also consulted.Patient also has tested positive for C. difficile.
CT of the head with no acute intracranial abnormality but small old infarcts in the posterior left frontal lobe and left occipital lobe with mild atrophy and small vessel ischemic disease. No hemorrhage. Twelve-lead EKG underlying atrial
fibrillation with ventricular pacing.
PMH:
Severe since 2018
29 mm Donovan Maria Luisa S3 aortic valve via right common femoral approach 05/11/25
2D echocardiogram 05/11/2025 with peak/mean transaortic gradients 6/3 mmHg and no aortic regurgitation
Ischemic cardiomyopathy with ejection fraction 24-30% with last echocardiogram post TAVR 05/11/2025
Chronic kidney disease with dialysis initiated May 08 receiving outpatient dialysis Wednesday
Chronic macrocytic anemia; admissions for GIB 09/2024, 03/2025, thought to be due to recurrent AVMs, treated with argon plasma coagulation and clips placed
CAD status post CABGx4 in setting of [place]
Left heart catheterization March 15, 2025:
CORONARY ANGIOGRAPHY
Dominance: Right
LEFT MAIN: Tapers distally
LEFT ANTERIOR DESCENDING: The LAD arises from the left main and is 100% occluded in its midportion. The NAVAS-LAD vs diagonal is patent to either the mid LAD or more likely a diagonal branch. There is antegrade and retrograde filling. Retrograde
the LAD is diffusely diseased. Antegrade the NAVAS fills a small diagonal branch. There are well developed septal collaterals from the RCA noted during angiography of SVG-PDA.
RAMUS : Occluded at its origin. The distal vessel fills via a patent free radial-ramus graft
CIRCUMFLEX: 100% occluded at its origin
RIGHT CORONARY ARTERY: Known to be occluded with patent SVG-PDA
GRAFT ANGIOGRAPHY:
1. NAVAS-LAD: The NAVAS graft is anastomosed to either to the mid LAD or diagonal branch. There are well developed septal collaterals from the RCA to the [place] LAD which fills via faint collaterals
2. Free radial-Ramus: Widely patent
3. SVG-OM: 100% occluded
4. SVG-PDA: Degenerative disease is noted with 50-55% stenosis in the mid body of the SVG to the PDA which appears angiographically stable
Carotid disease s/p left CEA in 2012
s/p Medtronic single chamber ICD 2018
Persistent Afib
Chronic Eliquis OAC
Chronic thrombocytopenia
DM 2
Gout
Smoker, ongoing tobacco use
Past Medical History
Past Medical History: Other (See HPI)
Social History
Tobacco: Former Smoker
Alcohol: None
Drug: None
Personal:
Living: With Family
Employment: Retired
Family History
Family History: Reviewed & Not Pertinent
Allergies / Home Medications
Allergy/AdvReac Type Severity Reaction Status Date / Time
grass pollen Allergy SNEEZING Verified 04/18/25 15:57
ragweed pollen Allergy NASAL Verified 04/18/25 15:57
CONGESTION
�Medication �Instructions �Recorded �Confirmed �Type
cyanocobalamin (vitamin B-12) 1,000 mcg PO DAILY Supplement 10/04/19 05/20/25 History
1,000 mcg tablet
atorvastatin 80 mg tablet 80 mg PO DAILY High cholesterol 01/01/23 05/20/25 History
insulin aspart U-100 100 unit/mL 3 unit (0.03 mL) SC AC #15 mL 03/16/25 05/20/25 Rx
(3 mL) subcutaneous pen (Novolog
FlexPen U-100 Insulin aspart)
insulin glargine 100 unit/mL (3 14 unit SC HS Diabetes 04/16/25 05/20/25 History
mL) subcutaneous pen (Lantus
Solostar U-100 Insulin)
potassium chloride 20 mEq 20 meq PO BID Supplement 04/16/25 05/20/25 History
tablet,extended release(part/cryst)
Held on 05/15/25.
Instructions: Resume on
06/05/25. Consider restarting
after seeing your outpatient
primary care physician and
clarifier. You are not
taking diuretics now (we are
stopping furosemide for now),
so your potassium levels
should be more stable without
the supplement.
allopurinol 300 mg tablet 150 mg PO BID Gout 04/18/25 05/20/25 History
apixaban 5 mg tablet (Eliquis) 5 mg PO BID Blood Clot 04/18/25 05/20/25 History
Prevention/Tx
brimonidine 0.1 % eye drops 1 drp BOTH EYES BID@1200,2200 Eye 04/18/25 05/20/25 History
Condition
fsjckwwh-gffaeo-pmmhd extract 5 1 cap PO DAILY Supplement 04/18/25 05/20/25 History
mg-6 mg-150 mg capsule (Fruit and
Vegetable Daily)
omeprazole 40 mg capsule,delayed 40 mg PO BID Gastrointestinal Issue 04/18/25 05/20/25 History
release
therapeutic multivitamin 1 tab PO DAILY Supplement 04/18/25 05/20/25 History
zolpidem 5 mg tablet (Ambien) 5 mg PO HSPRN PRN sleep 04/18/25 05/20/25 History
brinzolamide 1 % eye 1 drp BOTH EYES BID astigmatism ##0 04/20/25 05/20/25 History
drops,suspension
metoprolol succinate 25 mg 12.5 mg (1/2 x 25 mg) PO DAILY 05/15/25 05/20/25 Rx
tablet,extended release 24 hr Heart Failure 3 months #45 tabs
midodrine 2.5 mg tablet 2.5 mg PO BID hypotension 3 months 05/15/25 05/20/25 Rx
#180 tabs
Review of Systems
-
Unable to obtain full review of systems at this time due to: Acuity and Other
History Source: Patient and Physician
All other systems: Negative unless noted
Constitutional: Fatigue
Cardiac: Syncope
Abdomen/GI: Diarrhea
Neurological: Weakness and Other (Facial droop, speech difficult, right sided weakness)
Physical Exam
Vital Signs
Temp Pulse Resp BP Pulse Ox
98.1 F 75 30 146/66 99
05/20/25 19:15 05/20/25 19:15 05/20/25 19:15 05/20/25 19:15 05/20/25 19:15
Lab Results
05/20/25 08:07
05/20/25 08:07
Troponin I 0.210 ng/ml H* 05/20/25 08:07
Nku-E-Gzcdzhyceeu Pept 6900 pg/ml 05/20/25 08:07
Physical Exam
General: Other (Chronically ill 79-year-old gentleman lying supine. Right facial droop present. Speech slowed but mostly coherent.)
HEENT: Normocephalic, Anicteric and Moist Mucous Membranes
Respiratory: Other (Bronchovesicular breath sounds. Decreased at bases but otherwise clear. Tunneled dialysis catheter with slight dried blood)
Cardiac: Other (Irregular irregular. ICD present. No murmur or rub)
GI: Soft, Non Tender, Non Distended and Normal Bowel Sounds
Musculoskeletal: No Edema
Skin: Other (Scattered ecchymoses)
Neuro: Awake and Alert (Right sided weakness but moving all extremities. Right facial droop. Slurred speech)
Psych: Calm
Impression / Plan
-
PCP: Dr. Eason
Primary Equipment Operator/Laborer: Dr. Sutton
Impression:
Admitted 05/20/2025 After unresponsive episode with right facial droop/right-sided weakness and slurred speech concerning for
Stool incontinence, C. difficile positive
Status post transfemoral Donovan 29mm TAVR 05/11 Secondary to severe symptomatic aortic stenosis
Chronic kidney disease on new dialysis through tunneled dialysis catheter Wednesday//Saturdays; dialysis initiated during last admission on May 08
Ischemic cardiomyopathy with chronic heart failure�volume status improved with dialysis
Gastric AVMs/GI bleed status post clips September and March 2025
CAD status post CAB[place]x4 in [place] With stable coronary anatomy on March 15, 2025 cardiac catheterization
carotid disease s/p left CEA in 2012
s/p Medtronic single chamber ICD 2017
Persistent Afib
Chronic Eliquis OAC
DM 2
Gout
Smoker, ongoing tobacco use
Previous CV studies:
Echo 08/23/2019: EF 30-35%, global hypokinesis with inferolateral, inferior and basal septal akinesis, mild MR, sev pressure 47/28 mmHg
ECHO 12/03/22: EF 50%, mild LVH, stage III diastolic dysfunction, mild MR, severe with peak/mean gradients 54/28 mmHg, KAELYN 0.8 cm�, trace AR, mild TR, PAP 64 mmHg, mild dilation of aorta measuring 4.0 cm
Echo 10/09/2024: EF 35 to 40%, moderate eccentric MR, severe peak/mean 60/34 mmHg and KAELYN 0.8 cm sq, mild aortic insufficiency, moderate TR with PAP 64 mmHg
Echo 03/12/2025: EF 31%, global hypokinesis, moderate MR, severe peak/mean 41/22 mmHg and KAELYN 0.7 cm sq, mild aortic regurgitation, moderate to severe TR with PAP 72 mmHg
Echo 05/11/2025: s/p TAVR with #29 Donovan MARIA LUISA 3 aortic valve prosthesis with peak/mean 6/3 mmHg, mild MR, moderate to severe TR with PAP 60 mmHg
Right heart cath/left heart cath 03/15/2025: RA 14, PA 67/28, PCWP 24, LVEDP 18, CO/CI 5.4/3.0, aortic valve with mean pressure gradient 28 mmHg, KAELYN 0.95 cm�.
LAD 100% occluded midportion, NAVAS to LAD versus diagonal is patent to either mid LAD or diagonal branch with anterograde and retrograde filling well-developed septal collaterals from RCA noted. Ramus occluded at origin distal fills via patent free
radial to ramus graft. Circumflex 100% occluded at origin, RCA occluded with patent SVG to PDA. Graft angiography: NAVAS as above, free radial to ramus widely patent, SVG to OM1 100% occluded, SVG to PDA 50 to 55% stenosis in the mid
[facility] 05/03/2025: Hemodynamics (mmHg):RA (m) : 16, RV (s/d,m) : 68/10, 13, PA (s/d, m) : 67.35, 47, PCWP (m) : 39 with V waves up to 47, PA saturation: 57.9% on 8 L of oxygen via nasal cannula, AO saturation: 88% on 8 L of oxygen via nasal cannula
using noninvasive pulse ox, RA saturation: 60% on 8 L of oxygen via nasal cannula. Cardiac Output : 5.03 L/min by Tejas calculation, Cardiac Index : 2.75 L/min/m-2 by Tejas calculation Systemic vascular resistance: 1208 dsc^(-5), Pulmonary vascular
resistance: 1.59 huang unit
Plan:
Acute focal weakness with unresponsive episode, probable left MCA distribution stroke per neurology
-CT head without bleed or acute infarct
-Will check to see if device is compatible for MRI
-Carotid ultrasound planned
-Hold Eliquis per recommendations of neurology Pendingfurther head imaging
-Repeat 2D echocardiogram
-Continue aspirin 81 mg once daily, continue atorvastatin.
Transfemoral 29 mm Donovan TAVR May 11, 2025 for severe aortic stenosis
- Postprocedure echocardiogram stable.
- Will repeat echocardiogram
Permanent atrial fibrillation on Eliquis anticoagulation
-Ventricular paced rhythm with underlying atrial fibrillation
-Eliquis held per neurology
-Will plan for device interrogation tomorrow and also review if device is MRI conditional
Ischemic/valvular cardiomyopathy chronic heart failure with reduced ejection fraction
-Improved since recent admissions
-Volume status now managed by dialysis
-Nephrology consulted; dialysis now Wednesday//Wednesday
-Elevated troponin with no chest pain and stable coronary anatomy, likely demand type
C. difficile colitis
-Oral vancomycin
�management per primary.
Diabetes mellitusType II on insulin
-Hemoglobin A1c last admission 6.9%
-Consider consult with diabetic nurse practitioner to help manage insulin in the setting of n.p.o. status and new dialysis
Will follow with you
Data Reviewed
-
EKG: Tracing Personally Visualized and interpreted
Radiology: Report Reviewed by me
CT Scan: Report Reviewed by me
Labs: Labs Reviewed by me
Old Records: Reviewed
[2025-05-20 23:47] LABS: Glucose - Point of Care 116 mg/dl (70-99)
[2025-05-21] VITALS (11 sets, daily range): BP systolic 114–153; BP diastolic 52–71; BMI 26.8
[2025-05-21] MEDS: AZOPT 1% OPHTHALMIC SUSPENSION 1 DROP BOTH EYES ×3 (02:19→20:01)
[2025-05-21] MEDS: VANCOMYCIN ENEMA 500 MG RECTAL ×5 (02:20→23:35)
[2025-05-21] MEDS: ALPHAGAN 0.2% EYE DROPS 1 DROP BOTH EYES ×3 (02:20→20:27)
--- NOTE | 2025-05-21 03:54 | PTCARENOTE ---
Assumed care of pt from francesca RN. Pt aaox3. NIH 4 due to right sided weakness (facial droop and ataxia) as well as slight aphasia and slurring. Neuro check q4 ongoing (refer to worklist). V-paced on the monitor with occasional polymorphic PVCs.
SpO2 96% on 2L NC. Pt is strict NPO. ANASTACIO Ye made aware and PO medications placed on hold. Order received for rectal vanco enemas q6. Pt resting in bed with call moreno in reach.
[2025-05-21 05:04] LABS: Hematocrit 28.1 % (39.0-52.0); Hemoglobin 9.1 g/dL (13.0-18.0); Mean Corp Hgb Conc. 32.4 g/dL (33.0-37.0); Mean Corpuscular Volume 100.4 fL (80.0-94.0); Platelet Count 119 10^3/uL (130-400); Red Cell Dist. Width 16.7 % (11.5-14.5)
[2025-05-21 05:34] LABS: Blood Urea Nitrogen 17 mg/dl (9-20); Calcium 8.7 mg/dl (8.4-10.2); Carbon Dioxide 29 mmol/L (22-30); Chloride 98 mmol/L (98-107); Estimated Creatinine Clearance 37 ml/min; Glucose 100 mg/dl (70-99); HDL Cholesterol 50 mg/dl; LDL Cholesterol, Calculated 37 mg/dl; Potassium 3.5 mmol/L (3.5-5.1); Sodium 131 mmol/L (135-145); Very Low Density Lipoprotein 12 mg/dl (0-30); eGFR 51.13
[2025-05-21 05:50] LABS: Glucose - Point of Care 101 mg/dl (70-99)
--- NOTE | 2025-05-21 07:54 | W.PN.HOSP.TC ---
Today's Communication/Plan
-
IVF gentle hydration while NPO
wean O2 supplementation as tolerated
Hep gtt w/o bolus
VSE in AM
ST/PT/OT
Assessment / Plan
Assessment / Plan
Physical Exam
General: No pallor, cyanosis, or jaundice. Chronic ill appearance
HEENT: Throat clear. Normocephalic atraumatic. Dry oral mucosa EOMI
NECK: Supple. No JVD Carotid Bruits
RESPIRATORY: Lungs clear to auscultation. No crackles wheezes stridor
CVS: S1, S2 RRR. No murmur, rub or gallop.
ABDOMEN: Soft, non-tender. No distension. BS+/normal.
EXTREMITIES: No peripheral cyanosis or edema.
DIAGNOSTIC IMAGING MANAGER: AOx3. Word finding difficulties noted but largely conversant coherent, some dysarthria
Psych: calm
IMPRESSION:
79M pAfib ESRD HD HFrEF DM CABG was recently discharged from this hospital after TAVR presents with right-sided facial droop and expressive aphasia found to have stroke left frontoparietal as noted on MRI.
Stroke
pAfib
Cardiac monitoring
Brain MRI appreciated large nonhemorrhagic acute/subacute infarct left frontoparietal lobe
MRA Head/neck appreciated No focal hemodynamically significant stenosis, aneurysm or occlusion.
Carotid US pending
ST eval appreciated NPO recommended for now, VSE tomorrow 05/22
Neurology consult appreciated recommended resuming anticoagulation
hep gtt no bolus for now
Gentle IV hydration while NPO
Statin when able to tolerate PO
PT OT pending
Acute Hypoxic Insufficiency
Incentive spirometer
wean O2 supplementation as tolerated
Cdiff pos stool
CXR appreciated mild RLL PNA
-ID eval appreciated PNA unlikely, empiric cefipime and IV vanc discontinued, cont Vanc enema QID for Cdiff while strict NPO
HFrEF
Elevated troponin 0.210, likely demand ischemia
trend to peak
chest pain free
appears euvolemic at this time
cont volume control via HD as per nephro
Daily weight I/O
Cardiology consult appreciated
ECHO appreciated EF 25-35%
Diabetes
cont sliding scale Q6H
Lantus on hold while NPO
End-stage renal disease on dialysis TTS
Nephrology consult appreciated
cont HD as per nephro
Orthostatic Hypotension
-abd binder compression stockings
-resume midodrine when able to tolerate PO intake
dvt ppx hep gtt
Full Code
Discussed with patient, patient's Neli, and daughter Francisca
I spent a total of 55 minutes with the patient or on the floor. More than 50% of this time involved counseling and coordination of care.
Anticipated Discharge: 24 - 48 hours
Subjective/Interval History
-
Date of Service: May 21, 2025
Seen and examined at bedside in no acute distress resting comfortably in bed. Stable respiratory status on 4L nasal cannula supplementation. AOx3 conversant largely coherent, some word finding difficulties dysarthria noted.
Objective Data
-
Labs:
Laboratory Results
05/21/25
04:29
WBC 5.0
Hgb 9.1 L
Hct 28.1 L
Plt Count 119 L
Sodium 131 L
Potassium 3.5
Chloride 98
Carbon Dioxide 29
BUN 17
Creatinine 1.4 H
Glucose 100 H
Calcium 8.7
Vital Signs:
Vital Signs
Temp Pulse Resp BP Pulse Ox
97.0 F 75 22 123/57 95
05/21/25 02:59 05/21/25 06:00 05/21/25 06:00 05/21/25 06:00 05/21/25 06:00
I&O
05/20/25 05/21/25 05/22/25
06:59 06:59 06:59
Intake Total 0 / 0
Output Total 450 / 450
Balance -450 / -450
[2025-05-21] MEDS: NOVOLOG FLEXPEN SC ×3 (08:15→16:10)
--- NOTE | 2025-05-21 08:39 | W.PN.NEURO.1 ---
Addendum entered and electronically signed by Kennedy Adams MD 05/21/25 10:28:
Studies reviewed.
I have personally examined the patient. I reviewed and agree with the RESOURCE ENGINEER's Note.
My addenda:
Awake, alert, interactive. No acute distress.
Speech thick.
Follows 2-step requests w/o difficulty. No tremor.
Extra-ocular movements grossly intact.
Facial movements reduced on the right. Hearing intact to normal conversational volume.
Normal UE movements bilaterally.
Neck: full ROM.
Chest: no dyspnea
Heart: no JVD
Ext: (-) Clubbing, (-) Cyanosis, (-) Edema
IMPRESSIONS/RECOMMENDATIONS:
Abrupt onset of episodic unresponsiveness when going to stand from sitting with current significant dysarthria
If unable to obtain MRI of brain today, would check CT of head to compare with initial study
Follow orthostatic blood pressures
Start abdominal binder due to high likelihood of orthostatic hypotension
Resume apixaban due to higher risk of ischemic injury than hemorrhagic conversion at this time
Goal of normal natremia
Unable to obtain CT angiogram due to renal insufficiency, will follow carotid ultrasound results
Restart atorvastatin 80 mg nightly when possible
Rehabilitation evaluations and treatment
D/W patient / nursing
All questions answered.
Will continue to follow patient.
Original Note:
Today's Communication / Plan
-
-obtain brain MRI as planned, if unable due to ICD then repeat head CT
-obtain carotid ultrasound as planned
-would resume Apixaban for secondary stroke prevention given his history of afib when able to take po
-goal LDL<70 current LDL 37 continue atorvastatin 80 mg nightly when able to take po
-stroke education material to be provided
-continue neurochecks and NIHSS per unit guidelines
-PT/OT/ST evaluations
-orthostatic VS BID, encourage abdominal binder
-fall precautions
Neuro Assessment/Plan
Assessment
79-year-old male with several recent hospitalizations for heart failure, afib on apixaban, s/p ICD, COPD, IDDM, CKD on HD (T,TH,S) b/l CEA, CABG (x4 2001), TAVR presented to [facility] on 05/20/2025 for evaluation of acute onset of speech difficulty after
episode of unresponsiveness.
Labs: Sodium�129, glucose�124, creatinine�1.3, normal lactic acid, MCV�102.4, platelets�111: PTT�39.0, Mg 1.6
CT head wo contrast-small old infarcts in the posterior left frontal lobe and left occipital lobe.
Assessment:
I. Probable left MCA distribution stroke.
II. Permanent atrial fibrillation on apixaban
III. History of Bl CEA.
IV. Probable orthostatic hypotension
Plan
-obtain brain MRI as planned, if unable due to ICD then repeat head CT
-obtain carotid ultrasound as planned
-would resume Apixaban for secondary stroke prevention given his history of afib when able to take po
-goal LDL<70 current LDL 37 continue atorvastatin 80 mg nightly when able to take po
-stroke education material to be provided
-continue neurochecks and NIHSS per unit guidelines
-PT/OT/ST evaluations
-orthostatic VS BID, encourage abdominal binder
-fall precautions
All questions encouraged and answered, plan of care discussed with Dr. Adams, patient and nurse
Subjective/Objective
Subjective Data
Date of Service: May 21, 2025
No acute overnight events. Patient states he feels 'more awake.' Patient states he was trying to get off of toilet at home when he collapsed and that is what brought him into the hospital. He also notes he got up too fast about 5 weeks ago and fell
down on the side of the shower. Denies headache, dizziness or sleepiness.
Objective Data
Vital Signs
Temp Pulse Resp BP Pulse Ox
97.0 F 75 22 123/57 95
05/21/25 02:59 05/21/25 06:00 05/21/25 06:00 05/21/25 06:00 05/21/25 06:00
Lab Results
05/21/25 04:29
05/21/25 04:29
Sodium 131 mmol/L (135-145) L 05/21/25 04:29
Potassium 3.5 mmol/L (3.5-5.1) 05/21/25 04:29
BUN 17 mg/dl (9-20) 05/21/25 04:29
Glucose 100 mg/dl (70-99) H 05/21/25 04:29
Calcium 8.7 mg/dl (8.4-10.2) 05/21/25 04:29
Lju-A-Jijcjwhjqwm Pept 6900 pg/ml 05/20/25 08:07
LDL Cholesterol, Calc 37 mg/dl 05/21/25 04:29
Vitamin B12 909 pg/ml (239-931) 05/20/25 16:44
Patient Allergies
grass pollen Allergy (Verified 04/18/25 15:57)
SNEEZING
ragweed pollen Allergy (Verified 04/18/25 15:57)
NASAL CONGESTION
Physical Exam
-
General: Appears Chronically Ill and Wearing Oxygen
HEENT: Normocephalic, Atraumatic and Anicteric
Neck: Full Range of Motion
Respiratory: No Dyspnea and Other (nasal cannula)
Cardiac: No JVD
GI: Non-distended
Skin: Unremarkable
Extremities: No Clubbing, No Cyanosis and No Edema
Psych: Unremarkable
Extended Neurological Exam
Mood & Affect: Mood Unremarkable
Attention Span & Concentration: Awake, Alert, Interactive and No Difficulty with 2 Step Request
Memory: Unremarkable
Tremor: Hand Tremor Absent and Head Tremor Absent
Speech: Dysarthric and Pressured
Cranial Nerves III, IV, : Extraocular Movement: Extraocular Movement Full in all Directions
Cranial Nerve VII: Facial Symmetry: Normal Facial Symmetry
Cranial Nerve VIII: Hearing: Unremarkable Hearing to Normal Conversational Volume
Muscle Strength, Overall: Spontaneously Moves
Pronator Drift: No Drift in Upper Extremities and No Drift in Lower Extremities
Coordination: Aklznt-isdc-inksav Testing Unremarkable
Data Reviewed
-
CT Head: Report Reviewed and Image Reviewed
MRI Head: Ordered
Labs: Report Reviewed
Lipid Profile: Report Reviewed
Reviewed with: Physician and Patient
Old Records: Summarized
--- NOTE | 2025-05-21 08:47 | VNURNOTE ---
Chart reviewed. Patient is current with [facility]. Will continue to follow hospital course and DC plans.
--- NOTE | 2025-05-21 09:02 | W.PN.CARDCBS ---
Addendum entered and electronically signed by Ivan John MD 05/21/25 10:56:
Complex 79-year-old man with lengthy hospital stay from 04/16/25 04/07/25 4 refractory heart failure and progressive achy I and CKD ultimately resulting in [place] after the initiation of hemodialysis and 05/09/25. He underwent thoracentesis on the left
of 1700 mL of mehul fluid on the day of discharge. Readmitted on 05/20/25 after transient loss of consciousness while toileting with slurring of words and right facial droop, currently still with dysarthria
PMH: CKD which is progress to ESRD, acute on chronic HFrEF , with ischemic cardiomyopathy, EF 31% current G.I. bleed requiring transfusion and APC with clips September & March 2025, CABG following [place] 2001, Medtronic single-chamber ICD 2017, persistent
atrial fibrillation, diabetes, gout, ongoing tobacco use, left carotid endarterectomy, 29 mm Donovan saving 3 transcatheter aortic valve May 2025, COPD, hypercholesterolemia, now with hypotension
Current meds: Vancomycin, Maxipime, allopurinol, apixaban 5 mg twice daily, atorvastatin 80 mg a day, Alphagan, B12, metoprolol ER 12.5 mg a day, potassium 20 mill equivalents twice daily, midodrine 2.5 3 times daily, Lantus 14, pantoprazole
123/57, 75, respiratory 22, afebrile, chronically ill-appearing, cachectic states he feels 'terrible all over', cachectic, rhonchi in bases, mostly regular rate and rhythm with obvious murmur, abdomen benign extremities with edema, JVD okay, neuro
with right facial droop and dysarthria, otherwise grossly nonfocal, frequently coughing
Hemoglobin 9.1, platelets are 119, sodium is 131, potassium is 3.5, CO2 is 29, BUN and creatinine are 17 and 1.4, free T4 is 1.55
ECG: A-fib V pacing
Plan:
Despite pneumonia, C. difficile, and what clinically appears to be a left hemispheric stroke, Mr. An appears relatively stable from a cardiac standpoint.
He remains in A-fib with a controlled ventricular response. He is anticoagulated. There is no overt evidence of heart failure at this time.
Defer management of anticoagulation or antiplatelet agents to hospitalist and neurology. From cardiac standpoint, continued apixaban is appropriate.
Volume status seems appropriate and to be managed by nephrology via hemodialysis.
His medical regimen seems appropriate.
From cardiac standpoint okay to proceed with MRI.
Await echo, otherwise no further cardiac testing required at present.
We will follow for now.
Original Note:
Today's Communication / Plan
-
ICD is MRI safe
Eliquis can be resumed per Neuro once taking POs
Echo pending
Impression / Plan
-
PCP: Dr. Eason
Primary Eyeglass Lens Cutter: Dr. Sutton
Impression:
Admitted with unresponsiveness, dysarthria and right-sided weakness 05/20/2025
Recent admission for acute HFrEF, JAY leading to new HD and TAVR 04/18/2025 until 05/16/2025
Dysarthria and right-sided weakness concerning for possible left MCA territory CVA
C. difficile colitis
Chronic HFrEF, proBNP 18,500
ESRD on HD
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
Elevated Troponin
CAD
s/p CABG with NAVAS to LAD, free radial to ramus, SVG to OM and SVG to PDA 2001
s/p cardiac cath with patent NAVAS to LAD, widely patent free radial to ramus, 100% occluded SVG to OM and 50 to 55% mid stenosis of the SVG to the PDA to be stable 03/15/2025
ICM EF 31%, echo 03/12/2025
History of reduced ejection fraction heart failure with improved EF
carotid disease s/p left CEA in 2012
s/p Medtronic single chamber ICD 2017
Persistent Afib
Chronic Eliquis OAC
DM 2
Gout
Smoker, ongoing tobacco use
Echo 08/23/2019: EF 30-35%, global hypokinesis with inferolateral, inferior and basal septal akinesis, mild MR, sev pressure 47/28 mmHg
ECHO 12/03/22: EF 50%, mild LVH, stage III diastolic dysfunction, mild MR, severe with peak/mean gradients 54/28 mmHg, KAELYN 0.8 cm�, trace AR, mild TR, PAP 64 mmHg, mild dilation of aorta measuring 4.0 cm
Echo 10/09/2024: EF 35 to 40%, moderate eccentric MR, severe peak/mean 60/34 mmHg and KAELYN 0.8 cm sq, mild aortic insufficiency, moderate TR with PAP 64 mmHg
Echo 03/12/2025: EF 31%, global hypokinesis, moderate MR, severe peak/mean 41/22 mmHg and KAELYN 0.7 cm sq, mild aortic regurgitation, moderate to severe TR with PAP 72 mmHg
Echo 05/11/2025: s/p TAVR with #29 Donovan BLAISE 3 aortic valve prosthesis with peak/mean 6/3 mmHg, mild MR, moderate to severe TR with PAP 60 mmHg
Echo 05/21/2025: Study pending
Plan:
-Patient came to the ER from home 05/20/2025 after an episode of weakness with slurred speech and observed right sided weakness and was admitted for possible CVA and cardiology has been consulted. Patient was just admitted from 04/18/2025 until
05/16/2025 with recurrent acute HFrEF in the setting of severe . During that admission patient had progressive CKD and is now on HD. Patient eventually had TAVR on 05/11/2025. There was a recommendation for rehab placement, but patient and
wish to return home and pursue outpatient HD treatments. Patient had episodes at home of diarrhea and profound weakness and during the episode just prior to admission there was an observation of new right sided weakness and dysarthria prompting
admission. Neurology is following and suspects there could be a left MCA territory CVA and MRI of the brain is pending.
-Neurology note reviewed by me on 05/21/2025 and plan is for MRI. Patient's ICD is MRI safe, device and lead data reviewed by me and cross checked against known MRI safe devices on MRI website. Not sure if MRI department is willing to do MRI with
new TAVR, but would recommend MRI as results could foreign exchange trader significantly.
-Patient reports that his handles medications at home. Patient was ordered Eliquis 5 mg BID (age 79, Cre 1.4, wt 73.06 kg) and presumably he has been taking this without interruption at home. If MRI suggest stroke then may need to consider
alternative OAC. Eliquis is currently on hold, but neurology reports patient can restart OAC when able to take POs
-Echo planned for 05/21/2025 to follow-up on TAVR. Patient had normal TAVR function by last echo 05/11/2025
-Patient with persistent to permanent A-fib. HR is controlled with Toprol-XL 12.5 mg daily
-Patient with chronic HFrEF, EF was 31% on echo 03/12/2025, await updated echo report.
-Volume status managed by HD
-GDMT includes Toprol-XL 12.5 mg daily
-Patient cannot take BRITTANY/ARB/ARNI due to ESRD on HD
-Patient is not chronically on aldosterone antagonist due to hypotension. There is no history of hyperkalemia
-Outpatient dose of midodrine 2.5 mg TID has been continued
-Initial troponin was 0.21. No complaints of chest pain. ECG is V paced. Will check an additional troponin, ordered by me. Suspect this is nonischemic myocardial injury troponin elevation. Patient with stable kalispel and graft disease by last
cardiac cath 03/15/2025
Progress Note - Eyeglass Lens Cutter
Subjective
Date of Service: May 21, 2025
Denies pain, upset that he is back in the hospital
Objective
Labs:
05/21/25 04:29
05/21/25 04:29
Labs
Hgb 9.1 g/dL (13.0-18.0) L 05/21/25 04:29
Hct 28.1 % (39.0-52.0) L 05/21/25 04:29
Plt Count 119 10^3/uL (130-400) L 05/21/25 04:29
Sodium 131 mmol/L (135-145) L 05/21/25 04:29
Potassium 3.5 mmol/L (3.5-5.1) 05/21/25 04:29
BUN 17 mg/dl (9-20) 05/21/25 04:29
Creatinine 1.4 mg/dL (0.7-1.3) H 05/21/25 04:29
Glucose 100 mg/dl (70-99) H 05/21/25 04:29
Troponins
05/20/25
08:07
Troponin I 0.210 H*
Vital Signs and I&O:
Vital Signs
Temp Pulse Resp BP Pulse Ox
97.0 F 75 22 123/57 95
05/21/25 02:59 05/21/25 06:00 05/21/25 06:00 05/21/25 06:00 05/21/25 06:00
Vital Signs
Temp Pulse Resp BP Pulse Ox
97.0 F 75 22 123/57 95
05/21/25 02:59 05/21/25 06:00 05/21/25 06:00 05/21/25 06:00 05/21/25 06:00
Intake & Output
05/19/25 05/20/25 05/21/25 05/22/25
06:59 06:59 06:59 06:59
Intake Total 0 / 0
Output Total 450 / 450
Balance -450 / -450
Physical Exam
Physical Exam
General: NAD, AAOX3
HEENT: EOMI
Heart: V paced on tele. Reg, no murmur
Lungs: 2 L NC. Coarse throughout, no wheeze
Ext: Trace B/L LE edema
Neuro: Dysarthric with slow but deliberate and intelligible speech
[2025-05-21] MEDS: LIPITOR PO (09:09)
[2025-05-21] MEDS: VITAMIN B-12 PO (09:10)
[2025-05-21] MEDS: TOPROL XL PO (09:10)
--- NOTE | 2025-05-21 09:28 | PHA.VAN.FU ---
Vancomycin Assessment / Plan
- Assessment
Hemodialysis Schedule: TThSa
WBC's are: WNL
In the past 24 hrs, patient has been: Afebrile
Concomitant Antimicrobials: cefepime, vancomycin PO
- Dosing Plan
Dosing by Level: Hold off on dosing today
- Monitoring Plan
Random Level: 05/22 prior to HD
- Follow Up
Pharmacy will continue to follow.
Vancomycin Follow UP
- -
Patient Age: 79
Patient Sex: Male
Vancomycin Day #: 2
Indication: Pulmonary/Respiratory
Requesting Provider: Dr. Branham
Pertinent Antimicrobial Allergies:
no pertinent antibiotic allergies
Height / Weight:
Height 5 ft 5 in
Actual Weight 73.057 kg
Pertinent Past Medical History: JAY on CKD requiring HD
- Vital Signs / Lab Results
Temp Pulse Resp BP Pulse Ox
97.7 F 75 22 123/57 95
05/21/25 07:07 05/21/25 06:00 05/21/25 06:00 05/21/25 06:00 05/21/25 06:00
Lab Results - Hematology
05/20/25 05/21/25
08:07 04:29
WBC 6.1 5.0
Lab Results - Chemistry
05/20/25 05/21/25
08:07 04:29
BUN 13 17
Creatinine 1.3 1.4 H
Estimated Creat Clear 40 37
Albumin 3.1 L
05/20/25 05/20/25
12:35 16:00
Lactic Acid 1.2 Cancelled
Lab Results - Urine
05/20/25
10:30
Urine Nitrite (Reflex) Negative
Leukocyte Esterase Rfl 2+ A
Ur Squamous Epith Cells 0-2
Microbiology Results
05/20/25 10:30 Urine Culture - Final
Urine NO GROWTH
05/20/25 16:44 Nasal Screen MRSA (PCR) - Final
Nose Staph aureus MRSA
05/20/25 12:52 Shiga Toxin Test - Final
Feces/Stool No E. coli Shiga Toxin 1 or 2 detected.
Stool Leukocytes - Final
05/20/25 12:52 C. difficile GDH Antigen & Toxins - Final
Feces/Stool Toxigenic C.difficile Positive
--- NOTE | 2025-05-21 09:59 | W.PN.NEPH.PH ---
Today's Communication / Plan
-
hd tues
Assessment/Plan
-
IMP:
TAVR
ESRD
Paroxysmal atrial fibrillation
Chronic hyponatremia
COPD without exacerbation
Chronic heart failure reduced EF 30%
CAD/CABG x 4 (2001)
Medtronic single-chamber ICD, 2017
Carotid disease -s/p left CEA 2012.
Hypotension
DM 2
h/o GI bleed 03/2025 , known h/o AVMS
Confusion
Old CVA
Plan:
Antibiotics for pneumonia
midodrine 3 times daily
HD TTS
no acute need for HD today
MRI per yahaira if comp w icd
-
-
Date of Service: May 21, 2025
CC / HPI / ROS
-
Chief Complaint:
slurred sp
History of Present Illness:
esrd presents w slurred sp
Review of Systems:
Labs
-
Labs:
WBC 5.0 10^3/uL (4.8-10.8) 05/21/25 04:29
RBC 2.80 10^6/uL (4.70-6.10) L 05/21/25 04:29
Hgb 9.1 g/dL (13.0-18.0) L 05/21/25 04:29
Hct 28.1 % (39.0-52.0) L 05/21/25 04:29
Plt Count 119 10^3/uL (130-400) L 05/21/25 04:29
Sodium 131 mmol/L (135-145) L 05/21/25 04:29
Potassium 3.5 mmol/L (3.5-5.1) 05/21/25 04:29
Chloride 98 mmol/L (98-107) 05/21/25 04:29
Carbon Dioxide 29 mmol/L (22-30) 05/21/25 04:29
BUN 17 mg/dl (9-20) 05/21/25 04:29
Creatinine 1.4 mg/dL (0.7-1.3) H 05/21/25 04:29
eGFR 51.13 05/21/25 04:29
Glucose 100 mg/dl (70-99) H 05/21/25 04:29
Calcium 8.7 mg/dl (8.4-10.2) 05/21/25 04:29
Jss-U-Atbybnwtmrh Pept 6900 pg/ml 05/20/25 08:07
Albumin 3.1 g/dl (3.5-5.0) L 05/20/25 08:07
Physical Exam
-
Vital Signs:
Vital Signs
Temp Pulse Resp BP Pulse Ox
97.7 F 75 22 123/57 95
05/21/25 07:07 05/21/25 06:00 05/21/25 06:00 05/21/25 06:00 05/21/25 06:00
Cardiovascular:: Regular rate and rhythm
Respiratory:: Bilateral: Coarse
Lung Excursion:: Normal
Abdomen:: Nontender and Soft
Bowel Sounds:: Normal
Extremity Edema:: +1: Bilateral:
Olea Catheter: No
[2025-05-21] MEDS: NSS (PRESERVATIVE FREE) 10 ML IV ×2 (10:03→20:02)
[2025-05-21] MEDS: PROTONIX IV 40 MG IV ×2 (10:04→20:02)
[2025-05-21 12:26] LABS: Glucose - Point of Care 91 mg/dl (70-99)
--- NOTE | 2025-05-21 13:49 | CON.ID ---
Addendum entered and electronically signed by Josy Valenzuela MD 05/21/25 17:15:
I personally performed a history and physical exam of the patient and discussed management with the resident. I reviewed the resident's note and agree with most of the documented findings and plan of care HPI/CC.
# Primary C. diff diarrhea. mild
# Acute/subacute infarcts with dysphagia, dysarthria, facial droop
# Low-no suspicion for pneumonia: no cough, exam without crackles, and I personally reviewed CXR
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
# hx HFrEF, ICD implant, CAD, Afib
# ESRD on HD
- Agree with Vancomycin enema qid.
- When pt able to take po, will consider fidaxomicin.
- Avoid unnecessary antibiotics. DC cefepime and IV Vancomycin.
Original Note:
Consultation
-
Date/Time Consultation Requested: 05/21/2025 12:27
Date/Time Consultation Performed: 05/21/2025 02:45
Requesting Provider: Dr. Littlejohn
Performing Provider: Dr. Walker; Dr. Valenzuela
Reason for Consultation: pneumonia and cdiff unable to tolerate PO
Chief Complaint / Past History
Chief Complaint
Weakness and dysarthria
History of Present Illness
This is a 79-year-old man with lengthy hospital stay from 04/16/25 to 05/16/25 for refractory heart failure and progressive JAY on CKD ultimately resulting in TAVR on 05/11 after the initiation of hemodialysis.
Patient informed me after the discharge she was doing well until yesterday when he woke up feeling fine however he had fecal incontinence and became unresponsive while being assisted from the toilet. Episode lasted 2 minutes and he regained
awareness but exhibited a right facial droop, slurred speech and weakness. Per record, last Wednesday patient had transient episode of eye deviation/facial droop that resolved.
Neurology and nephrology also consulted.Patient also has tested positive for C. difficile. ID service was consulted for additional recommendations.
Past History
Past Medical History: Other (Chronic kidney disease Paroxysmal A-fib CHF with EF around 50 Type 2 diabetes mellitus Aortic valve disease status post recent TAVR Coronary artery disease status post CABG Hiatal hernia Dyslipidemia)
Past Surgical History: Cardiac and Other (CABG Cardiac Stent Left Carotid Endarterectomy Cholecystectomy)
Allergy History:
grass pollen Allergy (Verified 04/18/25 15:57)
SNEEZING
ragweed pollen Allergy (Verified 04/18/25 15:57)
NASAL CONGESTION
Medications Reviewed: Yes
Current Antibiotics:
Cefepime, vancomycin
Social History
Tobacco: Former Smoker
Alcohol: None
Family History
Family History: Not Pertinent
Review of Systems
Review of Systems
General: Other (States that he is just feeling off); Negative Fever
Cardiovascular: Negative Chest Pain
Respiratory: Negative Dyspnea
Neurological: Negative Headache, Dizziness or Seizures
Vital Signs
Temp Pulse Resp BP Pulse Ox
97.8 F 75 22 123/57 96
05/21/25 11:25 05/21/25 06:00 05/21/25 06:00 05/21/25 06:00 05/21/25 08:00
Physical Exam
Physical Exam
Constitutional: Chronically Ill
Cardiovascular: Regular Rate and S1/S2
Pulmonary: Coarse and Non Labored
Gastrointestinal: Soft, Non Tender and Non Distended
Extremities: Edema
Neurological: Awake, Alert, Oriented and Other (Dysarthria with slow but intelligible speech)
Psychological: Calm
Lab / Diagnostic Study Results
05/21/25 04:29
05/21/25 04:29
Abs Immat Gran (auto) 0.0 10^3/uL (0-0.05) 05/20/25 08:07
Absolute Neuts (auto) 4.7 10^3/uL (1.4-6.5) 05/20/25 08:07
Absolute Lymphs (auto) 0.7 10^3/uL (1.2-3.4) L 05/20/25 08:07
Absolute Monos (auto) 0.7 10^3/uL (0.1-0.6) H 05/20/25 08:07
Absolute Basos (auto) 0.0 10^3/uL (0-0.2) 05/20/25 08:07
Immature Gran % 0.5 % (0-0.5) 05/20/25 08:07
Neutrophils % 75.9 % (42.2-75.2) H 05/20/25 08:07
Lymphocytes % 10.8 % (20.5-51.1) L 05/20/25 08:07
Monocytes % 11.4 % (1.7-9.3) H 05/20/25 08:07
Eosinophils % 1.1 % (0-6) 05/20/25 08:07
Basophils % 0.3 % (0-2) 05/20/25 08:07
Lactic Acid Cancelled 05/20/25 16:00
Ur Squamous Epith Cells 0-2 /LPF (Few) 05/20/25 10:30
Microbiology Results
Micro:
05/20/25 12:52 Blood Culture - Preliminary
Blood/Venous No Growth in 24 hours- Final report to follow
05/20/25 12:35 Blood Culture - Preliminary
Blood/Venous No Growth in 24 hours- Final report to follow
05/20/25 16:44 Respiratory Culture - Final
Sputum Gram Stain - Final
05/20/25 12:52 Salmonella/Shigella Culture - Preliminary
Feces/Stool Culture in Progress
Campylobacter Culture - Preliminary
Culture in Progress
Shiga Toxin Test - Final
No E. coli Shiga Toxin 1 or 2 detected.
Stool Leukocytes - Final
05/20/25 10:30 Urine Culture - Final
Urine NO GROWTH
05/20/25 16:44 Nasal Screen MRSA (PCR) - Final
Nose Staph aureus MRSA
05/20/25 12:52 C. difficile GDH Antigen & Toxins - Final
Feces/Stool Toxigenic C.difficile Positive
CXR 05/20/25: Findings suggesting mild right lower lobe pneumonia. Progressed.
Tiny bilateral pleural effusions. Progressed.
Mild cardiomegaly. Stable
CT Head W/o Iv Contrast 05/20/25:
No acute intracranial abnormality noted.
Findings suggesting small old infarcts in the posterior left frontal lobe and left occipital lobe.
Mild periventricular small vessel ischemic disease.
Mild atrophy
MA [place]; MA Neck With Contrast; MR Brain Without Contrast 05/21/25:
Large nonhemorrhagic acute/subacute infarct in the left frontoparietal lobe.
Additional scattered smaller sites of nonhemorrhagic acute/subacute infarcts throughout the bilateral cerebral and cerebellar hemispheres. Findings may reflect embolic etiology.
No focal hemodynamically significant stenosis, aneurysm or occlusion.
Assessment / Plan
# Right LL pneumonia ; has chronic smokers cough
# C. difficile, per he developed diarrhea during last admission two days before discharge
# Undergoing stroke workup; right sided facial droop with dysarthria;
- afebrile, no cough, normal wbc
- Nasal MRSA screen positive
- Stool with C. difficile positive; due to dysarthria and not clear to swallow pills at this time; okay to continue vancomycin rectally for now
- Exam not showing any crackles. will dc cefepime at this time
Conditions affecting care:
TAVR
ESRD on HD
Paroxysmal atrial fibrillation
Chronic hyponatremia
COPD without exacerbation
Chronic heart failure reduced EF 30%
CAD/CABG x 4 (2001)
Medtronic single-chamber ICD, 2018
Carotid disease -s/p left CEA 2012.
Hypotension
DM 2
h/o GI bleed 03/2025 , known h/o AVMS
--- NOTE | 2025-05-21 15:43 | PTCARENOTE ---
All po meds held as pt is strict NPO, seen by speech for Video swallow tomorrow.
[2025-05-21 17:32] LABS: Glucose - Point of Care 75 mg/dl (70-99)
[2025-05-21] MEDS: D5/0.9% SODIUM CHLORIDE 1000 IV (18:20)
[2025-05-21] MEDS: HEPARIN 25000 UNITS/250 ML IV (18:34)
[2025-05-21 18:41] LABS: APTT 36.7 Sec (23.4-35.0)
[2025-05-21] MEDS: ALPHAGAN 0.2% EYE DROPS BOTH EYES (23:31)
[2025-05-21 23:44] LABS: Glucose - Point of Care 87 mg/dl (70-99)
[2025-05-22] VITALS (45 sets, daily range): BP systolic 90–174; BP diastolic 45–116; PULSE 3–87; O2SAT 94; BMI 26.4
[2025-05-22 01:26] LABS: APTT 86.2 Sec (23.4-35.0)
--- NOTE | 2025-05-22 02:31 | PTCARENOTE ---
Pt now on Q shift NIH and neuro checks, see work list. Pt able to make needs known. Pt getting Q6 vanco enemas until speech clears for medications. At this time Pt had no bms over night. Pt has no complaints at this time. Assessment care and vitals
as charted.
[2025-05-22] MEDS: VANCOMYCIN ENEMA 500 MG RECTAL (05:56)
[2025-05-22 06:27] LABS: Glucose - Point of Care 99 mg/dl (70-99)
[2025-05-22 07:26] LABS: Hematocrit 29.0 % (39.0-52.0); Hemoglobin 9.5 g/dL (13.0-18.0); Mean Corp Hgb Conc. 32.8 g/dL (33.0-37.0); Mean Corpuscular Volume 102.1 fL (80.0-94.0); Platelet Count 122 10^3/uL (130-400); Red Cell Dist. Width 16.3 % (11.5-14.5)
[2025-05-22 07:29] LABS: APTT 108.7 Sec (23.4-35.0)
[2025-05-22 07:37] LABS: Troponin I 0.196 ng/ml
[2025-05-22 08:38] LABS: Blood Urea Nitrogen 21 mg/dl (9-20); Calcium 9.0 mg/dl (8.4-10.2); Carbon Dioxide 28 mmol/L (22-30); Chloride 102 mmol/L (98-107); Estimated Creatinine Clearance 37 ml/min; Glucose 104 mg/dl (70-99); Magnesium 1.7 mg/dl (1.6-2.3); Potassium 3.5 mmol/L (3.5-5.1); Sodium 132 mmol/L (135-145); eGFR 51.13
--- NOTE | 2025-05-22 09:01 | W.PN.ID1 ---
Date of Service
Date of Service: May 22, 2025
Today's Communication
Continue rectal Vanco.
Assessment / Plan
# Primary C. diff diarrhea. mild
# Acute/subacute infarcts with dysphagia, dysarthria, facial droop
# No suspicion for pneumonia: no cough, exam without crackles, and I personally reviewed CXR
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
# hx HFrEF, ICD implant, CAD, Afib
# ESRD on HD
- Continue Vancomycin enema qid (d2)
- When pt able to take po, will transition to po Vanco vs fidaxomicin
-For VSE today.
- Avoid unnecessary antibiotics.
#Conditions affecting care:
TAVR
ESRD on HD
Paroxysmal atrial fibrillation
Chronic hyponatremia
COPD without exacerbation
Chronic heart failure reduced EF 30%
CAD/CABG x 4 (2001)
Medtronic single-chamber ICD, 2018
Carotid disease -s/p left CEA 2012.
Hypotension
DM 2
h/o GI bleed 03/2025 , known h/o AVMS
Chief Complaint
-: C-diff
Subjective / Review of Systems
No diarrhea in between rectal enema.
No change in dysphagia.
Vital Signs / Physical Exam
Vital Signs
Vital Signs
Temp Pulse Resp BP Pulse Ox
97.7 F 75 17 125/63 98
05/22/25 07:15 05/22/25 06:00 05/22/25 06:00 05/22/25 06:00 05/22/25 06:00
Physical Exam
Constitutional: Comfortable
Eyes: No Conjunctival Hemorrhage and Sclera Anicteric
Cardiovascular: Regular Rate, S1/S2 and Other (ICD site no erythema)
Pulmonary: Negative Wheezes or Rales
Gastrointestinal: Soft, Non Tender, Non Distended and Normal Bowel Sounds
Extremities: Edema (B/L LE)
Neurological: AO x 3 and Other (Dysarthria); Negative Meningeal Signs
Objective Data
Lab Data
Lab Results
05/22/25 07:01
05/22/25 07:01
APTT 108.7 Sec (23.4-35.0) H 05/22/25 07:01
Estimated Creat Clear 37 ml/min 05/22/25 07:01
Lactic Acid Cancelled 05/20/25 16:00
Total Bilirubin 1.3 mg/dl (0.2-1.3) 05/20/25 08:07
AST 40 U/L (17-59) 05/20/25 08:07
ALT 15 U/L (0-50) 05/20/25 08:07
Alkaline Phosphatase 138 U/L (38-126) H 05/20/25 08:07
Most recent labs reviewed.
Micro Results:
05/20/25 12:52 Salmonella/Shigella Culture - Final
Feces/Stool No Salmonella, Shigella, Aeromonas or Plesiomonas species
isolated.
Campylobacter Culture - Final
No Campylobacter species isolated.
Shiga Toxin Test - Final
No E. coli Shiga Toxin 1 or 2 detected.
Stool Leukocytes - Final
05/20/25 12:52 Blood Culture - Preliminary
Blood/Venous No Growth in 24 hours- Final report to follow
05/20/25 12:35 Blood Culture - Preliminary
Blood/Venous No Growth in 24 hours- Final report to follow
05/20/25 16:44 Respiratory Culture - Final
Sputum Gram Stain - Final
05/20/25 10:30 Urine Culture - Final
Urine NO GROWTH
05/20/25 16:44 Nasal Screen MRSA (PCR) - Final
Nose Staph aureus MRSA
05/20/25 12:52 C. difficile GDH Antigen & Toxins - Final
Feces/Stool Toxigenic C.difficile Positive
CXR 05/20/25: Findings suggesting mild right lower lobe pneumonia. Progressed.
Tiny bilateral pleural effusions. Progressed.
Mild cardiomegaly. Stable
CT Head W/o Iv Contrast 05/20/25:
No acute intracranial abnormality noted.
Findings suggesting small old infarcts in the posterior left frontal lobe and left occipital lobe.
Mild periventricular small vessel ischemic disease.
Mild atrophy
MA [place]; MA Neck With Contrast; MR Brain Without Contrast 05/21/25:
Large nonhemorrhagic acute/subacute infarct in the left frontoparietal lobe.
Additional scattered smaller sites of nonhemorrhagic acute/subacute infarcts throughout the bilateral cerebral and cerebellar hemispheres. Findings may reflect embolic etiology.
No focal hemodynamically significant stenosis, aneurysm or occlusion.
--- NOTE | 2025-05-22 09:14 | W.PN.HOSP.TC ---
Today's Communication/Plan
-
- Restart PO meds pending SLT eval
- F/u results of carotid US
- CXR for increased SOB after swallow study
Assessment / Plan
Assessment / Plan
Robert An is a 79yo M with a pmh of afib, ESRD on HD (/), HFrEF, T2DM, CAD (s/p CABG), and (s/p TAVR) who was recently discharged on 05/16, now readmitted with R-sided facial droop & dysarthria, found to have L frontoparietal CVA.
#L frontoparietal CVA
Patient presented on 05/20 with right-sided facial droop, dysarthria. Had been experiencing episodes of being 'out of it' with eye deviation intermittently over the 4 days post discharge on 05/16. Brain MRI (05/21): large nonhemorrhagic acute/subacute
infarct left frontoparietal lobe. MRA head/neck (05/21): No focal hemodynamically significant stenosis, aneurysm or occlusion. Echo (05/21): EF 25-30%; compared to prior echo 05/11, no significant changes in TR (mod-severe); global hypokinesis.
- Pending carotid US today
- Continue Eliquis 5 mg twice daily
- Continue telemetry
- Continue heparin drip
- Restart 80 mg atorvastatin daily when possible with PO meds
- Neurology following, appreciate recs
- Cardiology following, appreciate recs
#C. difficile diarrhea
Patient with mild diarrhea; C. difficile positive 05/20. Patient received preop cefazolin on 05/11/2025 in advance of TAVR. Was discharged on 05/16 after a month-long stay in hospital.
- Continue vancomycin enema 4 times daily (05/21- )
- When patient able to take p.o. medications, convert to PO vancomycin
- Continue IV fluids while n.p.o.
- ID following, appreciate recs
#Acute hypoxic insufficiency
Patient with 98% O2 sat on 2 L O2 NC. Has been satting above 94% on 2 L O2 NC since admission. On 05/22 after video swallow study, patient with worsening dyspnea & requiring 6L O2 to sat 94%. Likely 2/2 aspiration during swallow study.
- Incentive spirometer
- Nonrebreather mask until stabilizes
- Stat CXR
#Positive MRSA
Patient nasal swab positive for MRSA on 05/20. Patient had just been discharged on 05/16 after a month-long hospital stay. Likely became colonized during this time. Patient has not had leukocytosis or fever this admission.
WBC 5.3. Patient afebrile (97.7). Likely colonization in the setting of his long stay without any active infection.
- Patient in isolation room
- Continue to monitor for any infectious symptoms
#CXR w R-sided effusion
CXR (05/20): 'Findings suggesting mild right lower lobe pneumonia. Progressed. Tiny bilateral pleural effusions. Progressed.' Had been started on cefepime and vancomycin due to c/f HAP. Per ID eval 05/21, very low suspicion for PNA. R-sided fluid
likely 2/2 known right sided effusion that was drained 3 times during prior admission by IR. Sputum culture unable to be evaluated.
- Stop cefepime and vancomycin
- Continue to monitor pulmonary symptoms, O2 requirement
#Demand ischemia, resolving
Patient with known history of HFrEF. Patient without chest pain and appears euvolemic at presentation. Elevated troponin 0.210 on admission likely secondary to demand ischemia in the setting of acute illness.
Troponin: 0.210>0.196
- Stop trending
#Chronic
- T2DM - sliding scale insulin every 6 hours; holding Lantus while NPO, restart when able
- HFrEF (25-30% EF; s/p TAVR) - daily I&Os; daily weights (at dry weight currently 72kg); continue home metoprolol w PO meds; cards following, appreciate recs
- ESRD on HD - continue dialysis T//S; nephrology following, appreciate recs
- Orthostatic hypotension - abdominal binder, compression stockings; holding home midodrine while n.p.o. restart when able
#Global
- DVT PPx: Heparin drip
- Code: Full
- Diet: NPO, restart pending swallow study today
- Dispo: Patient lives at home with his ; had been discharged on 05/16 with VN & home PT; dispo potentially to SNF pending PT/OT & case mgmt
Anticipated Discharge: > 48 hours
Subjective/Interval History
-
Date of Service: May 22, 2025
Seen at bedside this am after US carotid & video swallow study. Patient receiving HD. Struggling to breathe, unable to speak >1 word sentences without SOB. With O2 NC in place. Says he feels SOB. No chest pain.
Objective Data
-
Labs:
Laboratory Results
05/22/25 05/22/25
01:08 07:01
WBC 5.3
Hgb 9.5 L
Hct 29.0 L
Plt Count 122 L
APTT 86.2 H 108.7 H
Sodium 132 L
Potassium 3.5
Chloride 102
Carbon Dioxide 28
BUN 21 H
Creatinine 1.4 H
Glucose 104 H
Calcium 9.0
Vital Signs:
Vital Signs
Temp Pulse Resp BP Pulse Ox
97.7 F 75 17 125/63 98
05/22/25 07:15 05/22/25 06:00 05/22/25 06:00 05/22/25 06:00 05/22/25 06:00
I&O
05/21/25 05/22/25 05/23/25
06:59 06:59 06:59
Intake Total 0 / 0 828 / 828
Output Total 450 / 450 150 / 150
Balance -450 / -450 678 / 678
Review of Systems
-
Unable to obtain full review of systems at this time due to: Acuity
History Source: Patient
Respiratory: Reports Trouble Breathing
Physical Exam
-
General: Well Developed, Well Nourished and Respiratory Distress
HEENT: Normocephalic and Atraumatic
Respiratory: Accessory Resp Muscle Use and Other (O2 NC)
Cardiac: Regular Rhythm
GI: Nondistended
Musculoskeletal: No Edema
Skin: Rash (chronic venostatic skin changes LE)
Neuro: Awake and Alert
Psych: Agitated
Data Reviewed
-
Total Time Spent with Patient (in minutes): 15
Critical Care Time (in minutes): 45
Diagnostic Radiology: Report Reviewed by me
Ultrasound: Report Reviewed by me
Labs: Labs Reviewed by me
--- NOTE | 2025-05-22 10:22 | W.PN.CARDCBS ---
Today's Communication / Plan
-
If okay with neuro, transition back to Eliquis from heparin
Antiplatelet agents if any defer to neuro and hospitalist
Would not pursue LOUIE, other cardiac testing
Overall cardiac status unchanged
Impression / Plan
-
PCP: Dr. Eason
Primary Flat Ironer: Dr. Sutton
Impression:
Acute left frontoparietal stroke
Recent admission for acute HFrEF, JAY leading to new HD and TAVR 04/18/2025 until 05/16/2025
Dysarthria and right-sided weakness concerning for possible left MCA territory CVA
C. difficile colitis
Chronic HFrEF, proBNP 18,500
ESRD on HD
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
Elevated Troponin
CAD
s/p CABG with NAVAS to LAD, free radial to ramus, SVG to OM and SVG to PDA 2001
s/p cardiac cath with patent NAVAS to LAD, widely patent free radial to ramus, 100% occluded SVG to OM and 50 to 55% mid stenosis of the SVG to the PDA to be stable 03/15/2025
ICM EF 31%, echo 03/12/2025
History of reduced ejection fraction heart failure with improved EF
carotid disease s/p left CEA in 2012
s/p Medtronic single chamber ICD 2017
Persistent Afib
Chronic Eliquis OAC
DM 2
Gout
Smoker, ongoing tobacco use
Echo 08/23/2019: EF 30-35%, global hypokinesis with inferolateral, inferior and basal septal akinesis, mild MR, sev pressure 47/28 mmHg
ECHO 12/03/22: EF 50%, mild LVH, stage III diastolic dysfunction, mild MR, severe with peak/mean gradients 54/28 mmHg, KAELYN 0.8 cm�, trace AR, mild TR, PAP 64 mmHg, mild dilation of aorta measuring 4.0 cm
Echo 10/09/2024: EF 35 to 40%, moderate eccentric MR, severe peak/mean 60/34 mmHg and KAELYN 0.8 cm sq, mild aortic insufficiency, moderate TR with PAP 64 mmHg
Echo 03/12/2025: EF 31%, global hypokinesis, moderate MR, severe peak/mean 41/22 mmHg and KAELYN 0.7 cm sq, mild aortic regurgitation, moderate to severe TR with PAP 72 mmHg
Echo 05/11/2025: s/p TAVR with #29 Donovan BLAISE 3 aortic valve prosthesis with peak/mean 6/3 mmHg, mild MR, moderate to severe TR with PAP 60 mmHg
Echo 05/21/2025: EF 25-30%, global hypokinesis basal inferior akinesis, TAVR with mean aortic valve gradient of 6, mildly dilated left atrium, mild mitral regurgitation, mild TR, unchanged from prior
Plan:
He remains stable from a cardiac standpoint despite his recent left hemispheric stroke.
His stroke is presumably cardioembolic. He may have had a left atrial appendage thrombus during interruptions in anticoagulation during recent TAVR. It is also conceivable that he had an atheroembolic source related to the procedure itself with
disruption of an atheroma or migration of plaque that was a consequence of TAVR a week or so prior to his event.
At this point, I do not see much utility to diagnostic studies such as transesophageal echo, etc., particularly given his debility and multiple comorbidities.
Regarding anticoagulant/antiplatelet management, I would be comfortable transitioning heparin back to Eliquis. I would not consider this necessarily an Eliquis failure and would not feel pressed to switch to a different DOAC. Whether or not
patient should receive 3 weeks of antiplatelet therapy, or whether anticoagulant should be interrupted for period of time to reduce risk of hemorrhagic transition of stroke would defer to neurology. If other team members feel strongly about
switching to Xarelto, etc. I would not strongly object to that however.
Would not pursue troponin further at this time. Patient with stable [facility] and graft disease by last cardiac cath 03/15/2025
We will continue to follow.
Progress Note - Flat Ironer
Subjective
Date of Service: May 22, 2025:
Complex 79-year-old man with lengthy hospital stay from 04/16/25 04/07/25 4 refractory heart failure and progressive achy I and CKD ultimately resulting in [place] after the initiation of hemodialysis and 05/09/25. He underwent thoracentesis on the left
of 1700 mL of mehul fluid on the day of discharge. Readmitted on 05/20/25 after transient loss of consciousness while toileting with slurring of words and right facial droop, currently still with dysarthria
PMH: CKD which is progress to ESRD, acute on chronic HFrEF , with ischemic cardiomyopathy, EF 31% current G.I. bleed requiring transfusion and APC with clips September & March 2025, CABG following OR 2001, Medtronic single-chamber ICD 2017, persistent
atrial fibrillation, diabetes, gout, ongoing tobacco use, left carotid endarterectomy, 29 mm Donovan saving 3 transcatheter aortic valve May 2025, COPD, hypercholesterolemia, now with hypotension
Current meds: IV heparin, allopurinol, atorvastatin 80 mg a day, Alphagan, B12, metoprolol ER 12.5 mg daily, Azopt, midodrine 2.5 3 times daily, rectal vancomycin, pantoprazole, Eliquis on hold
125/63, pulse 75, respiratory rate 17, afebrile, sats are 98%, weight is 72 kg, down 1.1 kg, head neck exam unremarkable, some crackles rhonchi throughout, regular rate and rhythm, abdomen benign, extremities 1+ to 2+ edema and some erythema
MRI: Large nonhemorrhagic acute/subacute stroke acute stroke left frontoparietal, no obvious obstructive atherosclerotic disease
Hemoglobin 9.5, BUN and creatinine 21 and 1.4, troponin 0.196, peak 0.210, proBNP was 6900
Objective
Labs:
05/22/25 07:01
05/22/25 07:01
Labs
Hgb 9.5 g/dL (13.0-18.0) L 05/22/25 07:01
Hct 29.0 % (39.0-52.0) L 05/22/25 07:01
Plt Count 122 10^3/uL (130-400) L 05/22/25 07:01
APTT 108.7 Sec (23.4-35.0) H 05/22/25 07:01
Sodium 132 mmol/L (135-145) L 05/22/25 07:01
Potassium 3.5 mmol/L (3.5-5.1) 05/22/25 07:01
BUN 21 mg/dl (9-20) H 05/22/25 07:01
Creatinine 1.4 mg/dL (0.7-1.3) H 05/22/25 07:01
Glucose 104 mg/dl (70-99) H 05/22/25 07:01
Troponins
05/20/25 05/22/25
08:07 07:01
Troponin I 0.210 H* 0.196 H*
Vital Signs and I&O:
Vital Signs
Temp Pulse Resp BP Pulse Ox
36.5 C 75 17 125/63 98
05/22/25 07:15 05/22/25 06:00 05/22/25 06:00 05/22/25 06:00 05/22/25 06:00
Vital Signs
Temp Pulse Resp BP Pulse Ox
36.5 C 75 17 125/63 98
05/22/25 07:15 05/22/25 06:00 05/22/25 06:00 05/22/25 06:00 05/22/25 06:00
Intake & Output
05/20/25 05/21/25 05/22/25 05/23/25
07:59 07:59 07:59 07:59
Intake Total 0 / 0 828 / 828
Output Total 450 / 450 150 / 150
Balance -450 / -450 678 / 678
Physical Exam
Physical Exam
See above
[2025-05-22] MEDS: AZOPT 1% OPHTHALMIC SUSPENSION 1 DROP BOTH EYES ×2 (11:11→20:28)
[2025-05-22] MEDS: D5/0.9% SODIUM CHLORIDE 1000 IV (11:13)
[2025-05-22] MEDS: PROTONIX IV 40 MG IV ×2 (11:13→20:28)
[2025-05-22] MEDS: NSS (PRESERVATIVE FREE) 10 ML IV ×2 (11:13→20:28)
[2025-05-22] MEDS: ALPHAGAN 0.2% EYE DROPS BOTH EYES ×2 (11:14→20:52)
--- NOTE | 2025-05-22 11:27 | CM ---
Following up on Patient. RN stated that patient is at a video swallow. TAISHA Page saw note that the wants [facility], but told that he may not qualify.
TAISHA Page is waiting for PT/OT to evaluate to make appropriate referrals.
PLAN: Home w/ PT/OT vs SNF vs Acute
--- NOTE | 2025-05-22 12:00 | W.PN.NEPH.HD ---
Progress Note - Hemodialysis
-
Date of Service: May 22, 2025
Duration: 30 minutes and 3 hours
Potassium Bath: 3
Calcium Bath: 2.5
Opti-Dialyzer: 160
Ultrafiltration: Other (2kg)
Blood Flow: 400
Dialysate Flow: 600
Heparin: 0
EPO: 11298 units
[2025-05-22 12:02] LABS: Glucose - Point of Care 125 mg/dl (70-99)
--- NOTE | 2025-05-22 12:22 | PTOTSP ---
Speech Therapy VSE:
Patient presents with moderate oral and moderate pharyngeal dysphagia. Patient demonstrated consistent silent aspiration with thin liquids. Trace transient penetration occurred with mildly thick liquids during liquid wash (functional). Mild
pharyngeal residue that was observed to increase as viscosity increased. No significant esophageal retention. Suspect etiology of swallowing due to acute CVA. Please see patient care note for full details of penetration/aspiration and swallowing
physiology.
Recommend:
1. Initiate IDDSI 6 (soft and bite sized solids) and mildly thick liquids via single cup sip
2. Medications crushed in puree
3. Strict Aspiration precautions: upright all meals, small bites/sips, slow rate, thorough oral care, dry swallows, liquid wash, added moisture to PO
4. Modifiable risk factors for aspiration pneumonia including encouraging frequent and thorough oral care, pulmonary hygiene measures, and increasing physical mobility as medically feasible
5. MANAGER EDITORIAL to follow for education regarding VSE findings/recommendations, for diet tolerance s/p initiation, pharyngeal strengthening exercises, and to determine candidacy for [facility] via ice chips.
6. Patient would benefit from repeat imaging prior to liquid advancement given silent aspiration of thin liquids observed on study.
--- NOTE | 2025-05-22 12:49 | STATUS ---
SITUATION:
On HD, HD RN came to tell me he is SOB needed increased o2. Pt is restless, increased work of breathing-abdominal breathing. O2 up to 6L sao2 94%-
BACKGROUND:
Just had VSE (aspiration on thin liquids), and US. On IV heparin and IVF. Recent CVA with facial droop, slurred speech and limb ataxia.
ASSESSMENT:
AAO He could tell me he is short of breath, denies chest pain. Very restless, Abdominal breathing, up to 6L NC. Tele with 100% V pacing but turned into freq ectopy with short runs MF PVCs, couplets. D/w HD RN- she discussed with nephrology and
HD discontinued.
RECOMMENDATION:
Spoke with Dr. German- came immediately to eval- placed on NRB mask- RT aware- PCXR ordered- Dr. Castelan here to eval. Pt to be placed on bipap- RT aware.
HD discontinued
--- NOTE | 2025-05-22 13:49 | RESPNOTE ---
Notified by RN that patient w/ increased WOB on 6L NC after speech study. spo2 94%; patient with accessory muscle use and uncomfortable. MD team called to bedside. Patient placed on bipap 15/5 with 6L bled in. Vital signs WNL on bipap. Tolerating
bipap fairly well at this time.
[2025-05-22] MEDS: VANCOMYCIN ENEMA RECTAL (13:56)
--- NOTE | 2025-05-22 13:58 | PTCARENOTE ---
Breathing is much improved on bipap sao2 98%- abdominal resp. resolved, calm now. He is now asking to order food. D/w provider- will give him another hour to recover- assess and order.
[2025-05-22 16:57] LABS: Glucose - Point of Care 131 mg/dl (70-99)
--- NOTE | 2025-05-22 17:49 | PTCARENOTE ---
Off bipap- tolerating 4L NC without distress at this time. Tolerating dinner. Remains on heparin gtt / IVF at 60ml/hr. Tele showing A- paced with freq PVCs at this time.
[2025-05-22] MEDS: FIRVANQ 125 MG PO (20:01)
--- NOTE | 2025-05-22 21:55 | PTCARENOTE ---
Pt AAOx3 known slurred speech. Pt able to make needs known. Pt NIH/neuro check Qshift. Pt appearing to make positive advancements in right direction. Pt remains on heparin gtt 9ml/hr. Pt has no complaints at this time. SPO2 96-98% on 2L nc RR 19
respirations even unlabored.
[2025-05-22 21:58] LABS: Glucose - Point of Care 225 mg/dl (70-99)
[2025-05-23] VITALS (15 sets, daily range): BP systolic 109–133; BP diastolic 45–81; PULSE 75; O2SAT 93; BMI 27.0
[2025-05-23] MEDS: FIRVANQ 125 MG PO ×5 (00:37→23:14)
--- NOTE | 2025-05-23 02:37 | DOWNTIME ---
There was a [employer] Client [employer] Services Coordinator Downtime on 05/23/2025 from 0100 to 05/23/2025 at 0215. Downtime documentation of patient's care, including medication administrations, has been reconciled in the electronic record per guidelines. Refer to the
patient's paper chart under the miscellaneous tab to see printed paper medication records and downtime forms.
[2025-05-23 04:36] LABS: Hematocrit 28.7 % (39.0-52.0); Hemoglobin 9.2 g/dL (13.0-18.0); Mean Corp Hgb Conc. 32.1 g/dL (33.0-37.0); Mean Corpuscular Volume 101.1 fL (80.0-94.0); Platelet Count 72 10^3/uL (130-400); Red Cell Dist. Width 16.5 % (11.5-14.5)
[2025-05-23 04:46] LABS: APTT > 200 Sec (23.4-35.0)
[2025-05-23 04:47] LABS: Blood Urea Nitrogen 19 mg/dl (9-20); Calcium 8.8 mg/dl (8.4-10.2); Carbon Dioxide 30 mmol/L (22-30); Chloride 103 mmol/L (98-107); Estimated Creatinine Clearance 33 ml/min; Glucose 121 mg/dl (70-99); Magnesium 1.7 mg/dl (1.6-2.3); Potassium 3.3 mmol/L (3.5-5.1); Sodium 134 mmol/L (135-145); eGFR 43.56
--- NOTE | 2025-05-23 05:09 | PTCARENOTE ---
Pt morning PTT result >200. heparin now on hold, per protocol. Night TECHNICAL SOLUTIONS DIRECTOR made aware.
--- NOTE | 2025-05-23 07:24 | W.PN.HOSP.TC ---
Addendum entered and electronically signed by Nazario Castelan DO 05/23/25 12:30:
Update: Will withhold transitioning heparin back to Eliquis until carotid ultrasound results are available. Patient states he was taking Eliquis as prescribed. With his CVA there is concern for Eliquis failure. If carotid ultrasound without signs
of stenosis that correlates with his CVA, may need to have cardiology and hematology involved for consideration of transition to another DOAC versus Lovenox versus warfarin. Continue heparin drip for now
Original Note:
Today's Communication/Plan
-
- Consult PM&R for rehab
- Stop heparin & restart eliquis
- Continue PO vanc
- Await results of carotid US read
- Wean off O2 NC today
- Potential discharge tmrw
Assessment / Plan
Assessment / Plan
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
#L frontoparietal CVA
Patient presented on 05/20 with right-sided facial droop, dysarthria. Had been experiencing episodes of being 'out of it' with eye deviation intermittently over the 4 days post discharge on 05/16. Brain MRI (05/21): large nonhemorrhagic acute/subacute
infarct left frontoparietal lobe. MRA head/neck (05/21): No focal hemodynamically significant stenosis, aneurysm or occlusion. Echo (05/21): EF 25-30; compared to prior echo 05/11, no significant changes in TR (mod-severe); global hypokinesis. Carotid
US (05/22): pending read. Patient denies having missed any doses of Eliquis.
- Continue Eliquis 5 mg twice daily
- Stop heparin today
- Continue telemetry
- 80 mg atorvastatin daily
- Neurology following, appreciate recs
- Cardiology following, appreciate recs
- PT/OT following
- Consult PM&R for rehab eval
#C. difficile diarrhea, resolving
Patient with mild diarrhea; C. difficile positive 05/20. Patient received preop cefazolin on 05/11/2025 in advance of TAVR. Was discharged on 05/16 after a month-long stay in hospital.
Today, without any diarrhea.
- Vancomycin PO 125mg qid (05/22- ; s/p vanc enema 05/21-) for 10 day course
- ID following, appreciate recs
#Acute hypoxic insufficiency
Patient with 98% O2 sat on 2 L O2 NC. Has been satting above 94% on 2 L O2 NC since admission. On 05/22 after video swallow study, patient with worsening dyspnea & requiring 6L O2 to sat 94%. Improved s/p bipap. Likely 2/2 aspiration during swallow
study. CXR 05/22: 'Patchy opacities in the base, progressed compared to prior chest x-ray, suggestive of bibasilar pneumonia, aspiration or subsegmental atelectasis.'
Today, 87-97% O2 sat on 3L NC, appears to be breathing comfortably.
- Wean off O2 as tolerated
- Diet without thin liquids
- Incentive spirometer
#Thrombocytopenia
Platelets chronically low, trended down 05/23 to 72. 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
- Continue to monitor
#Positive MRSA
Patient nasal swab positive for MRSA on 05/20. Patient had just been discharged on 05/16 after a month-long hospital stay. Likely became colonized during this time. Patient has not had leukocytosis or fever this admission.
WBC 5.3. Patient afebrile (97.7). Likely colonization in the setting of his long stay without any active infection.
- Patient in isolation room
- Continue to monitor for any infectious symptoms
#CXR w R-sided effusion
CXR (05/20): 'Findings suggesting mild right lower lobe pneumonia. Progressed. Tiny bilateral pleural effusions. Progressed.' Had been started on cefepime and vancomycin due to c/f HAP. Per ID eval 05/21, very low suspicion for PNA. R-sided fluid
likely 2/2 known right sided effusion that was drained 3 times during prior admission by IR. Sputum culture unable to be evaluated. Patient with chronic smoker's cough.
- Continue to monitor pulmonary symptoms, O2 requirement
- Therapeutic thora if needed
#Hypokalemia
K 3.3 on 05/23 (Wed). HD planned for Th.
- Replete 20meq KCl today
#Chronic
- T2DM - restart home lantus 14U, aspart 3U, sliding scale
- HFrEF (25-30% EF; s/p TAVR) - daily I&Os; daily weights (at dry weight currently 72kg); continue home metoprolol; cards following, appreciate recs; monitor R groin site
- ESRD on HD - continue dialysis T//S; nephrology following, appreciate recs
- Orthostatic hypotension - abdominal binder, compression stockings; home midodrine
- Tobacco use - start nicotine patch
- Gout - restart allopurinol
- Home meds - restart guaifenisin, B12; continue holding ambien
#Global
- DVT PPx: Eliquis
- Code: Full
- Diet: [id number], thick liquids only
- Dispo: Patient lives at home with his ; had been discharged on 05/16 with VN & home PT; dispo potentially to SNF pending PT/OT & case mgmt
Anticipated Discharge: Within 24 hours
Subjective/Interval History
-
Date of Service: May 23, 2025
Patient this morning alert, oriented, conversant. Asking where we are at in terms of working up his stroke. Turning on the lights when requested. Inquiring about right groin catheterization site from TAVR had some; minimal bleeding, some firmness
around incision site -asking if it looks okay. With some blood on his teeth and lips � states that he does not remember coughing up blood or biting his lip. States that he has had a cough for the last 60 years (smokes). Has productive cough this
morning. Denies any shortness of breath. Denies any chest pain. Says that he has not had any diarrhea overnight or today. Does not remember missing any doses of Eliquis after leaving the hospital on 05/16. Understands that he will need to work
with physical therapy to improve his dysarthria post discharge.
Objective Data
-
Labs:
Laboratory Results
05/23/25 05/23/25
04:11 12:40
WBC 5.9
Hgb 9.2 L
Hct 28.7 L
Plt Count 72 L D
APTT > 200 H* Pending
Sodium 134 L
Potassium 3.3 L
Chloride 103
Carbon Dioxide 30
BUN 19
Creatinine 1.6 H
Glucose 121 H
Calcium 8.8
Vital Signs:
Vital Signs
Temp Pulse Resp BP Pulse Ox
98.0 F 75 19 124/56 87
05/23/25 03:00 05/23/25 06:00 05/23/25 06:00 05/23/25 06:00 05/23/25 06:00
I&O
05/22/25 05/23/25 05/24/25
06:59 06:59 06:59
Intake Total 828 / 828 1698 / 1698
Output Total 150 / 150 50 / 50
Balance 678 / 678 1648 / 1648
Review of Systems
-
History Source: Patient
Constitutional: Reports No Symptoms
Physical Exam
-
General: Well Developed, Well Nourished and Comfortable
HEENT: Normocephalic, Atraumatic, Anicteric and Other (Dried blood on lower lips and visible on left sided bottom teeth)
Respiratory: Non Labored Respirations and Other (O2 NC in place)
Cardiac: Regular Rhythm
GI: Nondistended
Musculoskeletal: No Edema
Skin: Warm, Dry, Lesions (Patient with extensive bruising on bilateral upper extremities) and Other (Catheterization site in right groin from TAVR 05/11 with red punctate wound; some dried blood on gown adjacent to area; feels firm/indurated under
skin around catheterization site; no drainage, no purulence, no surrounding erythema, no warmth)
Neuro: Awake, Alert, Oriented and Other (R face weakness/droop, some dysarthria )
Data Reviewed
-
Total Time Spent with Patient (in minutes): 15
Critical Care Time (in minutes): 35
Labs: Labs Reviewed by me
[2025-05-23 07:39] LABS: Glucose - Point of Care 113 mg/dl (70-99)
[2025-05-23] MEDS: NOVOLOG FLEXPEN-MODERATE RESISTANCE SC ×3 (08:00→17:25)
[2025-05-23] MEDS: LANTUS 0.14 UNITS SC (08:53)
[2025-05-23] MEDS: TOPROL XL 12.5 MG PO (08:53)
[2025-05-23] MEDS: PROTONIX IV 40 MG IV ×2 (08:53→21:00)
[2025-05-23] MEDS: LIPITOR 80 MG PO (08:53)
[2025-05-23] MEDS: NSS (PRESERVATIVE FREE) 10 ML IV ×2 (08:53→21:00)
[2025-05-23] MEDS: AZOPT 1% OPHTHALMIC SUSPENSION 1 DROP BOTH EYES ×2 (08:54→21:01)
--- NOTE | 2025-05-23 09:29 | W.PN.NEPH.PH ---
Today's Communication / Plan
-
HD tomorrow
Assessment/Plan
-
IMP:
TAVR
ESRD
Paroxysmal atrial fibrillation
Chronic hyponatremia
COPD without exacerbation
Chronic heart failure reduced EF 30%
CAD/CABG x 4 (2001)
Medtronic single-chamber ICD, 2017
Carotid disease -s/p left CEA 2012.
Hypotension
DM 2
h/o GI bleed 03/2025 , known h/o AVMS
Confusion
Old CVA
Plan:
continue midodrine
on heparin gtt
no HD today, If Cr holds we can try lasix for volume control
Antibiotics for pneumonia
He says he can't tolerate dialysis, but would not say that he wanted to stop it.
-
-
Date of Service: May 23, 2025
CC / HPI / ROS
-
Chief Complaint:
MS change
History of Present Illness:
could not tolerate HD yesterday, taken off after ~30 min
BP stable
on vanco for C diff colitis
on heparin gtt with recent large CVA
Review of Systems:
no CP/SOB
Labs
-
Labs:
WBC 5.9 10^3/uL (4.8-10.8) 05/23/25 04:11
RBC 2.84 10^6/uL (4.70-6.10) L 05/23/25 04:11
Hgb 9.2 g/dL (13.0-18.0) L 05/23/25 04:11
Hct 28.7 % (39.0-52.0) L 05/23/25 04:11
Plt Count 72 10^3/uL (130-400) L D 05/23/25 04:11
Sodium 134 mmol/L (135-145) L 05/23/25 04:11
Potassium 3.3 mmol/L (3.5-5.1) L 05/23/25 04:11
Chloride 103 mmol/L (98-107) 05/23/25 04:11
Carbon Dioxide 30 mmol/L (22-30) 05/23/25 04:11
BUN 19 mg/dl (9-20) 05/23/25 04:11
Creatinine 1.6 mg/dL (0.7-1.3) H 05/23/25 04:11
eGFR 43.56 05/23/25 04:11
Glucose 121 mg/dl (70-99) H 05/23/25 04:11
Calcium 8.8 mg/dl (8.4-10.2) 05/23/25 04:11
Phosphorus 2.9 mg/dl (2.5-4.5) 05/23/25 04:11
Izz-F-Wfkoxzfvejh Pept 6900 pg/ml 05/20/25 08:07
Albumin 3.1 g/dl (3.5-5.0) L 05/20/25 08:07
Physical Exam
-
Vital Signs:
Vital Signs
Temp Pulse Resp BP Pulse Ox
98.3 F 75 19 124/56 87
05/23/25 07:00 05/23/25 06:00 05/23/25 06:00 05/23/25 06:00 05/23/25 06:00
Cardiovascular:: Regular rate and rhythm
Respiratory:: Bilateral: Coarse
Lung Excursion:: Normal
Abdomen:: Nontender and Soft
Bowel Sounds:: Normal
Extremity Edema:: None: Bilateral:
--- NOTE | 2025-05-23 09:57 | W.PN.CARDCBS ---
Today's Communication / Plan
-
Continue supportive therapy
Transition IV heparin to oral anticoagulation
Recent echo with preserved LV function.
Outpatient cardiac follow-up
Impression / Plan
-
.
PCP: Dr. Eason
Primary Vehicle Glass Technician: Dr. Sutton
Impression:
Acute left frontoparietal stroke
Recent admission for acute HFrEF, JAY leading to new HD and TAVR 04/18/2025 until 05/16/2025
Dysarthria and right-sided weakness concerning for possible left MCA territory CVA
C. difficile colitis
Chronic HFrEF, proBNP 18,500
ESRD on HD
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
Elevated Troponin
CAD
s/p CABG with NAVAS to LAD, free radial to ramus, SVG to OM and SVG to PDA 2001
s/p cardiac cath with patent NAVAS to LAD, widely patent free radial to ramus, 100% occluded SVG to OM and 50 to 55% mid stenosis of the SVG to the PDA to be stable 03/15/2025
ICM EF 31%, echo 03/12/2025
History of reduced ejection fraction heart failure with improved EF
carotid disease s/p left CEA in 2012
s/p Medtronic single chamber ICD 2017
Persistent Afib
Chronic Eliquis OAC
DM 2
Gout
Smoker, ongoing tobacco use
Echo 08/23/2019: EF 30-35%, global hypokinesis with inferolateral, inferior and basal septal akinesis, mild MR, sev pressure 47/28 mmHg
ECHO 12/03/22: EF 50%, mild LVH, stage III diastolic dysfunction, mild MR, severe with peak/mean gradients 54/28 mmHg, KAELYN 0.8 cm�, trace AR, mild TR, PAP 64 mmHg, mild dilation of aorta measuring 4.0 cm
Echo 10/09/2024: EF 35 to 40%, moderate eccentric MR, severe peak/mean 60/34 mmHg and KAELYN 0.8 cm sq, mild aortic insufficiency, moderate TR with PAP 64 mmHg
Echo 03/12/2025: EF 31%, global hypokinesis, moderate MR, severe peak/mean 41/22 mmHg and KAELYN 0.7 cm sq, mild aortic regurgitation, moderate to severe TR with PAP 72 mmHg
Echo 05/11/2025: s/p TAVR with #29 Donovan BLAISE 3 aortic valve prosthesis with peak/mean 6/3 mmHg, mild MR, moderate to severe TR with PAP 60 mmHg
Echo 05/21/2025: EF 25-30%, global hypokinesis basal inferior akinesis, TAVR with mean aortic valve gradient of 6, mildly dilated left atrium, mild mitral regurgitation, mild TR, unchanged from prior
Plan:
HR and bp stable from cardiac standpoint in setting of recent left hemispheric stroke.
Cont tele
Cont IV Heparin and transition back to oral anticoagulation once ok with neuro and no further procedures planned.
Carotid u/s pending.
Neuro notes ok to resume Eliquis. Would defer change to alternative anticoagulant or the addition of antiplatelet therapy to neurology.
LOUIE would not exchange engineer in this case with regards to need for anticoagulation in setting of persistent aFib and CVA.
Continue medical therapy of non-UT troponin. Peak 0.2 and trending down.
Patient with stable kaw and graft disease by last cardiac cath 03/15/2025
Continue supportive care.PT/OT
ESRD on HD as per nephrology
Discussed with daughter at bedside. She was appreciative.
Progress Note - Vehicle Glass Technician
Subjective
Date of Service: May 23, 2025
Patient seen and examined. No chest pain or shortness of breath
Objective
Labs:
05/23/25 04:11
05/23/25 04:11
Labs
Hgb 9.2 g/dL (13.0-18.0) L 05/23/25 04:11
Hct 28.7 % (39.0-52.0) L 05/23/25 04:11
Plt Count 72 10^3/uL (130-400) L D 05/23/25 04:11
APTT > 200 Sec (23.4-35.0) H* 05/23/25 04:11
Sodium 134 mmol/L (135-145) L 05/23/25 04:11
Potassium 3.3 mmol/L (3.5-5.1) L 05/23/25 04:11
BUN 19 mg/dl (9-20) 05/23/25 04:11
Creatinine 1.6 mg/dL (0.7-1.3) H 05/23/25 04:11
Glucose 121 mg/dl (70-99) H 05/23/25 04:11
Troponins
05/22/25
07:01
Troponin I 0.196 H*
Vital Signs and I&O:
Vital Signs
Temp Pulse Resp BP Pulse Ox
98.3 F 75 19 124/56 87
05/23/25 07:00 05/23/25 06:00 05/23/25 06:00 05/23/25 06:00 05/23/25 06:00
Vital Signs
Temp Pulse Resp BP Pulse Ox
98.3 F 75 19 124/56 87
05/23/25 07:00 05/23/25 06:00 05/23/25 06:00 05/23/25 06:00 05/23/25 06:00
Intake & Output
05/21/25 05/22/25 05/23/25 05/24/25
06:59 06:59 06:59 06:59
Intake Total 0 / 0 828 / 828 1698 / 1698
Output Total 450 / 450 150 / 150 50 / 50
Balance -450 / -450 678 / 678 1648 / 1648
Physical Exam
Physical Exam
General: No acute distress, AAOX3
HEENT: Dysarthria
neck: Negative JVD
Heart: Regular, Negative S3 positive S1/S2, Negative S4, No murmur
Lungs: CTA b/l, negative wheezes/rales/rhonchi
Abd: Positive BS, NT/ND, neg rebound/rigidity/guarding
Ext: Negative cyanosis/clubbing/edema
Neuro: nonfocal
[2025-05-23 10:57] LABS: Glucose - Point of Care 104 mg/dl (70-99)
[2025-05-23] MEDS: NOVOLOG FLEXPEN 3 UNITS SC ×2 (11:17→17:26)
[2025-05-23] MEDS: KCL 20 MEQ PO (11:19)
--- NOTE | 2025-05-23 11:34 | CON.MR ---
Documented by User: Dav Zamora MD, Resident 05/24/25 12:49
Consultation
Consultation Request
Date/Time Consultation Requested: 05/23/2025
Date/Time Consultation Performed: 05/23/2025
Requesting Provider: Cat Goodman
Performing Provider: Dr. Godoy
Reason for Consultation: rehab evaluation
Medical History
-
Chief Complaint: CVA
History of Present Illness:
Mr. An is a 70-year-old male with a recent history of hospitalization lasting one month. He was discharged 05/16 but has been experiencing persistent �fuzziness in the brain� since. The initial hospital admission was due to fluid overload, where
he accumulated 10 to 15 pounds of excess water weight. During the hospital stay, the patient was treated with high doses of diuretics despite 160 mg tablets twice daily, required hospitalization to manage the fluid. While hospitalized, the patient
underwent a TAVR on 05/11/25. He is on dialysis thrice weekly on Tuesdays and and sees Dr. Edwin Yates from Nephrology. Post-hospital discharge, the patient has demonstrated intermittent episodes of altered mental status. Last Wednesday, after a
therapy session involving ambulation, the patient appeared disoriented with symptoms resembling a transient ischemic episode � there was eye deviation, absent facial expression, and transient right facial droop noted by the spouse. This episode
resolved spontaneously shortly after onset.
On 05/20 morning, the patient experienced fecal incontinence followed by an episode where he became unresponsive while being assisted from the toilet. The spouse described the patient as 'completely out of it' with upswing eye movements. After
roughly two minutes, the patient regained awareness. He has a past medical history of Atrial Fib, CAD, CHF (chronic, systolic), COPD, IDDM and Renal Failure, Gastric AVM's with GIB, Gout, C3-C5 moderate-severe stenosis, polyneuropathy, glaucoma,
insomnia, nicotine dependence. Initial CT head showed no acute changes with small old infarcts in posterior left frontal and left occipital lobes. EKG showed atrial fibrillation with ventricular pacing. Due to stool incontinence patient had stool
testing which was positive for C. difficile. He was started on oral vancomycin which was switched to rectal. Brain MRI appreciated large nonhemorrhagic acute/subacute infarct left frontoparietal lobe, MRA Head/neck appreciated No focal
hemodynamically significant stenosis, aneurysm or occlusion. Neurology recommended continue patient on Eliquis and statin, primary team continuing with heparin gtt until carotid US in case of eliquis failure. Repeat echo 05/21 with no significant
changes to prior echo. 05/22 carotic ultrasound showed diffuse bulky heavily calcified plaque throughout the common carotid artery, carotid bulb and internal carotid artery consistent with greater than 70% internal carotid artery stenosis on the
right side, L CEA is patent.
Past Medical History
Past Medical History: Arrhythmias (Permanent A-fib on Eliquis), CAD, CHF (EF 30% 03/30), COPD, IDDM, CA, Renal Failure (ESRD on HD TTS), Valvular Disease (Aortic stenosis,) and Other (Gastric AVM, gout, chronic macrocytic anemia)
Past Surgical History: Cardiac (TAVR 05/2025, CABG 2001, single-chamber [employer] ICD placement 2017), Cholecystectomy and Other (Left carotid endarterectomy 2012, umbilical hernia repair, chronic hyponatremia)
Procedure History:
Thoracentesis 05/31
Family History
Family History: Reviewed & Not Pertinent
Social History
Functional Level Premorbidity:
Independent for all activities.
Ambulating with cane
Current Funct Level: Ambulation, Transfer, UE/LE Dressing:
Bed mobility: Min a
Transfers: Min a
Ambulation: 3 feet with rolling walker min a
Tobacco: Former Smoker
Alcohol: Occasional
Drug: None
Personal:
Living: With Family
Is 24 hour care available: Yes
Number of Floors: 2
# Steps to Enter: 2
# Steps to Second Floor: 12
Potential First Floor Set Up: Yes
Driving: No
Employment: Retired
Allergies / Home Medications
Allergy/AdvReac Type Severity Reaction Status Date / Time
grass pollen Allergy SNEEZING Verified 04/18/25 15:57
ragweed pollen Allergy NASAL Verified 04/18/25 15:57
CONGESTION
�Medication �Instructions �Recorded �Confirmed �Last Taken �Type
cyanocobalamin (vitamin B-12) 1,000 mcg PO DAILY Supplement 10/04/19 05/20/25 04/18/25 History
1,000 mcg tablet
atorvastatin 80 mg tablet 80 mg PO DAILY High cholesterol 01/01/23 05/20/25 04/18/25 History
insulin aspart U-100 100 unit/mL 3 unit (0.03 mL) SC AC #15 mL 03/16/25 05/20/25 04/18/25 Rx
(3 mL) subcutaneous pen (Novolog
FlexPen U-100 Insulin aspart)
insulin glargine 100 unit/mL (3 14 unit SC HS Diabetes 04/16/25 05/20/25 04/17/25 History
mL) subcutaneous pen (Lantus
Solostar U-100 Insulin)
potassium chloride 20 mEq 20 meq PO BID Supplement 04/16/25 05/20/25 04/18/25 History
tablet,extended release(part/cryst)
Held on 05/15/25.
Instructions: Resume on
06/05/25. Consider restarting
after seeing your outpatient
primary care physician and
financial compliance officer. You are not
taking diuretics now (we are
stopping furosemide for now),
so your potassium levels
should be more stable without
the supplement.
allopurinol 300 mg tablet 150 mg PO BID Gout 04/18/25 05/20/25 04/18/25 History
apixaban 5 mg tablet (Eliquis) 5 mg PO BID Blood Clot 04/18/25 05/20/25 04/18/25 History
Prevention/Tx
brimonidine 0.1 % eye drops 1 drp BOTH EYES BID@1200,2200 Eye 04/18/25 05/20/25 04/18/25 History
Condition
xmspdicq-[id number]-cppgi extract 5 1 cap PO DAILY Supplement 04/18/25 05/20/25 04/18/25 History
mg-6 mg-150 mg capsule (Fruit and
Vegetable Daily)
omeprazole 40 mg capsule,delayed 40 mg PO BID Gastrointestinal Issue 04/18/25 05/20/25 04/18/25 History
release
therapeutic multivitamin 1 tab PO DAILY Supplement 04/18/25 05/20/25 04/18/25 History
zolpidem 5 mg tablet (Ambien) 5 mg PO HSPRN PRN sleep 04/18/25 05/20/25 Unknown History
brinzolamide 1 % eye 1 drp BOTH EYES BID astigmatism ##0 04/20/25 05/20/25 Unknown History
drops,suspension
metoprolol succinate 25 mg 12.5 mg (1/2 x 25 mg) PO DAILY 05/15/25 05/20/25 Unknown Rx
tablet,extended release 24 hr Heart Failure 3 months #45 tabs
midodrine 2.5 mg tablet 2.5 mg PO BID hypotension 3 months 05/15/25 05/20/25 Unknown Rx
#180 tabs
Review Of Systems
-
History Source: Patient
Constitutional: Reports No Symptoms; Denies Fever, Weight Loss or Fatigue
Eye: Reports No Symptoms; Denies Blurry Vision or Visual Field Cut
EENT: Reports No Symptoms; Denies Tearing, Sore Throat or Runny Nose
Respiratory: Reports No Symptoms; Denies Cough or Trouble Breathing
Cardiac: Reports No Symptoms; Denies Chest Pain or Palpitations
Abdomen/GI: Reports No Symptoms; Denies Abdominal Pain, Nausea, Vomiting, Diarrhea or Constipated
: Reports No Symptoms; Denies Dysuria
Musculoskeletal: Reports No Symptoms; Denies Joint Pain, Joint Swelling or Muscle Pain
Neurological: Reports Weakness
Physical Exam
Active Medications
Generic Name Dose Route Start Last Admin
Trade Name Freq PRN Reason Stop Dose Admin
Acetaminophen 650 mg 05/20/25 13:29
Acetaminophen 650 Mg Rectal Suppository RECTAL 06/17/25 13:28
Q4HPRN PRN
GARCIA, mild pain, or temp >100.4F
Acetaminophen 650 mg 05/20/25 13:29
Acetaminophen 325 Mg Tablet PO 06/17/25 13:28
Q4HPRN PRN
GARCIA, mild pain, or temp >100.4F
Allopurinol 150 mg 05/20/25 20:00 05/20/25 20:56
Allopurinol 300 Mg Tablet PO 06/17/25 19:59 Not Given
BID MARGARITA
Apixaban 5 mg 05/23/25 20:00
Apixaban (Eliquis) 5 Mg Tablet PO 06/20/25 19:59
BID MARGARITA
Atorvastatin Calcium 80 mg 05/21/25 08:00 05/23/25 08:53
Atorvastatin (Lipitor) 80 Mg Tablet PO 06/18/25 07:59 80 mg
DAILY MARGARITA Administration
Brimonidine Tartrate 1 drop 05/20/25 22:00 05/22/25 20:52
Brimonidine 0.2% (Ophthalmic Solution) Bottle BOTH EYES 06/17/25 21:59 Not Given
BID@1200,2200 MARGARITA
Brinzolamide 1 drop 05/20/25 20:00 05/23/25 08:54
Brinzolamide 1% (Ophthalmic Suspension) 10 Ml Bottle BOTH EYES 06/17/25 19:59 1 drop
BID MARGARITA Administration
Cyanocobalamin 1,000 mcg 05/21/25 08:00 05/21/25 09:10
Cyanocobalamin (Vitamin B-12) 500 Mcg Tablet PO 06/18/25 07:59 Not Given
DAILY MARGARITA
Dextrose 12.5 grams 05/20/25 13:29
Dextrose 50% (0.5 Grams/Ml) 50 Ml Syringe IV 06/17/25 13:28
[id number] PRN
hypoglycemia
Protocol
Glucagon 1 mg 05/20/25 13:29
Glucagon 1 Mg Vial IM 06/17/25 13:28
PRN PRN
hypoglycemia
Protocol
Guaifenesin 200 mg 05/20/25 14:04
Guaifenesin Oral Solution (200 Mg/10 Ml) Cup PO 06/17/25 14:03
Q4HPRN PRN
cough
Insulin Glargine 14 units/ 0.14 mls @ 0 mls/hr 05/23/25 08:00 05/23/25 08:53
Device SC 06/20/25 07:59 0.14 mls
DAILY MARGARITA Administration
As Directed
Insulin Aspart 3 units 05/20/25 16:30 05/23/25 11:17
Insulin Aspart (Novolog) 100 Units/Ml 3 Ml Flexpen SC 06/17/25 16:29 3 units
AC MARGARITA Administration
Insulin Aspart 0 units 05/23/25 07:30 05/23/25 11:16
Insulin Aspart Moderate Resistance 300 Units/3 Ml Pen.Injctr SC 06/20/25 07:29 Not Given
AC MARGARITA
Protocol
Metoprolol Succinate 12.5 mg 05/21/25 08:00 05/23/25 08:53
Metoprolol 12.5 Mg Extended Release Dose (1/2 Of 25 Mg Xl Tablet) PO 06/18/25 07:59 12.5 mg
DAILY MARGARITA Administration
Midodrine 2.5 mg 05/20/25 22:00 05/23/25 08:53
Midodrine 2.5 Mg Tablet PO 2.5 mg
TID MARGARITA Administration
Nicotine 14 mg 05/23/25 12:00
Nicotine 14 Mg Patch TRANSDERM 06/20/25 11:59
DAILY MARGARITA
Pantoprazole Sodium 40 mg 05/21/25 09:00 05/23/25 08:53
Pantoprazole Sodium 40 Mg/10 Ml Vial IV 06/18/25 08:59 40 mg
BID MARGARITA Administration
Patch Removal 1 patch 05/23/25 22:00
Remove Nicotine Patch REMOVE 06/20/25 21:59
HS MARGARITA
Sodium Chloride 0 flush 05/20/25 14:00
Sodium Chloride 0.9% (Flush) Syringe IV 06/17/25 13:59
PER PROTOCOL MARGARITA
Sodium Chloride 10 ml 05/21/25 09:00 05/23/25 08:53
Sodium Chloride 0.9% (Preservative Free) 10 Ml Vial IV 06/18/25 08:59 10 ml
BID MARGARITA Administration
Sterile Water 10 ml 05/21/25 18:00 05/22/25 20:29
Sterile Water For Injection 10 Ml Vial IV 06/18/25 17:59 Not Given
QPM MARGARITA
Vancomycin HCl 125 mg 05/22/25 18:00 05/23/25 06:21
Vancomycin Oral Solution 50 Mg/Ml In Oral Syringe PO 125 mg
Q6 MARGARITA Administration
Zolpidem Tartrate 5 mg 05/20/25 15:46
Zolpidem Tartrate 5 Mg Tablet PO 06/17/25 15:45
On Hold: 05/20/25 20:50 HSPRN PRN
Comment: Pt strict NPO sleep
Vital Signs
Temp Pulse Resp BP Pulse Ox
98.3 F 75 19 124/56 87
05/23/25 07:00 05/23/25 06:00 05/23/25 06:00 05/23/25 06:00 05/23/25 06:00
Height 5 ft 5 in
Actual Weight 73.6 kg
Body Mass Index (BMI) 27.0
Physical Exam
Physical Exam:
General Appearance/Observation: Well-developed, well-nourished individual in no apparent distress.
Pain/Comfort Assessment: Denies
Mood/Affect: Appropriate
Integumentary/Operative Site:
Pressure Ulcer: absent
Other Type of Wound: absent:
Eyes: Conjunctiva/Lids: normal Pupils: pupils equal round and reactive to light and Accommodation
Ears/Nose/Throat: oral mucosa moist, throat clear. Lips/Teeth/Gums: normal
Neck: No muscle spasm or tenderness
Cardiovascular: Heart: regular rate rhythm, no murmur
Pulses: dorsalis pedis 2+ bilaterally
Respiratory: Respiratory Effort/Chest Expansion: normal Auscultation: Clear to auscultation bilaterally
Gastrointestinal: abdomen not tender, no distension, normal abdominal bowel sounds
Genitourinary: No Olea
Rectal Exam: Deferred
Extremities: Edema: None Cyanosis: None Trophic changes: mild changes in UE
Neurology Exam:
Orientation: Alert, Oriented to self, Time, Place
Memory: Intact immediately
Higher cortical function
Speech: Intact
Repetition: Intact
Comprehension: Intact
Two step command: Intact
Naming: Intact
Cranial Nerves:
CNII: Pupillary light reflex: Intact Visual Field: Intact
CN III, IV, : Extraocular muscles: Intact
CN V: Facial Sensation at Forehead: Intact , Maxilla: Intact, Mandible: Intact
CN VII: Facial movement: Asymmetric, R facial droop
CN VIII: Hearing: Normal
CN IX/X: Speech & swallow: Normal, Position of Uvula: Midline
CN XI: Shoulder shrug: Symmetric
CN XII: Tongue protrusion: R deviation
Sensory:
Light touch: Intact in bilateral upper and lower extremities
Proprioception: intact
Reflexes:
Biceps: 0 bilaterally
Brachioradialis: 0 bilaterally
Triceps:0 bilaterally
Patellar: 0 bilaterally
Achilles: 0 bilaterally
Babinski: Downgoing bilaterally
Clonus: None
Karen: Negative bilaterally
Cerebellar: Dysmetria/Ataxia: left ataxia
Musculoskeletal: Motor: (Manual muscle scale 0-5)
Muscle SA EF WE EE FF FA HF KE DF EHL PF
Right 5 4 4 4 4 4 3 4 5 5 5
Left 5 4 4 4 4 4 3 4 5 5 5
Tone: Normal in all extremities
Range of Motion: Passively within normal limits in all extremities
Lab Results
05/23/25 04:11
05/23/25 04:11
WBC 5.9 10^3/uL (4.8-10.8) 05/23/25 04:11
Hgb 9.2 g/dL (13.0-18.0) L 05/23/25 04:11
Hct 28.7 % (39.0-52.0) L 05/23/25 04:11
MCV 101.1 fL (80.0-94.0) H 05/23/25 04:11
Plt Count 72 10^3/uL (130-400) L D 05/23/25 04:11
Sodium 134 mmol/L (135-145) L 05/23/25 04:11
Potassium 3.3 mmol/L (3.5-5.1) L 05/23/25 04:11
Chloride 103 mmol/L (98-107) 05/23/25 04:11
Carbon Dioxide 30 mmol/L (22-30) 05/23/25 04:11
BUN 19 mg/dl (9-20) 05/23/25 04:11
Creatinine 1.6 mg/dL (0.7-1.3) H 05/23/25 04:11
eGFR 43.56 05/23/25 04:11
Glucose 121 mg/dl (70-99) H 05/23/25 04:11
Calcium 8.8 mg/dl (8.4-10.2) 05/23/25 04:11
Phosphorus 2.9 mg/dl (2.5-4.5) 05/23/25 04:11
Magnesium 1.7 mg/dl (1.6-2.3) 05/23/25 04:11
Total Bilirubin 1.3 mg/dl (0.2-1.3) 05/20/25 08:07
AST 40 U/L (17-59) 05/20/25 08:07
ALT 15 U/L (0-50) 05/20/25 08:07
Alkaline Phosphatase 138 U/L (38-126) H 05/20/25 08:07
Total Protein 6.2 g/dl (6.3-8.2) L 05/20/25 08:07
Albumin 3.1 g/dl (3.5-5.0) L 05/20/25 08:07
Diagnostic Results
As per HPI.
Comorbidities / Impairment Group
Assessment / Plan
Assessment
Robert An is a 79yo M with a pmh of afib, ESRD on HD (), HFrEF, T2DM, CAD (s/p CABG), and (s/p TAVR) who was recently discharged on 05/16 s/p TAVR, now readmitted with R-sided facial droop & dysarthria, found to have L frontoparietal
CVA with L-sided stroke, R-sided ICA stenosis.
Plan
PM&R PT/OT to increase independence with ADLs, improve balance, coordination, endurance, strength, mobility, community reintegration, decreased burden of care on others and family education.
CVA: Secondary prophylaxis with statin, anticoagulation per primary team and blood pressure control (SBP less than 180 and diastolic less than 100 to participate with therapy for ischemic stroke). Continue to monitor neurologic status.
Dysphagia: speech evaluation, oral care protocol, chlorhexidine rinse after meals and HS, aspiration precautions. Advance diet as tolerated.
Dysarthria: speech evaluation
HTN: continue medications, monitor closely
HLD: Statin
Coronary artery disease : statin, GDMT per primary team
S/P TAVR: anticoagulation , BP control
Atrial fibrillation: Continue anticoagulation
CHF: EF 30%, beta paulo, monitor fluid status
DM II: Accu-Cheks, insulin sliding scale, metformin, lispro, lantus.
Bilateral lower extremity edema: Consider TEDS as able. Increased fluid will cause more force requirement to move lower extremities which requires more strength and increases fatigue.
Anemia: Likely multifactorial. Continue to monitor.
Thrombocytopenia: Continue to monitor. With platelets less than 50,000 recommend keeping therapies to bedside. If platelets less than 20,000 will use further caution with activity levels and hold therapy for platelets less than 10,000.
Skin: monitor for pressure sores/rashes/lesions.
Pain: acetaminophen or oxycodone as needed.
Bowel: Colace and Senna, PRN bisacodyl.
Bladder: Time void, PVRs, PRN straight cath.
Tobacco Abuse: Smoking cessation counseling. nicotine patch
GI Prophylaxis: Pantoprazole
DVT Prophylaxis: heparin
Pulmonary: Incentive spirometry
Safety: Continue to reinforce assistance with all transfers.
Code Status: Full code
Dispo: Acute rehab
Functional and Medical Goals: Modified Independent with ADL�s, ambulation, transfers
Summary
-
Things that must be addressed in Hospital prior to discharge:
Patient must be stable on oral pain medications.
Blood pressure must be less than 180 systolic and 100 diastolic for 24 hours before being stable for transfer to SNF/acute rehab.
Please give blood pressure parameters.
Please comment on dvt chemoprophylaxis restrictions.
Discharge Destination: Acute rehab
Summary of recommendations:
- Discharge Destination: Acute rehab patient would benefit from PT/OT to increase independence with ADLs, improve balance, coordination, endurance, strength, mobility, community reintegration, decreased burden of care on others and family education.
Will sign off, please re-consult if needed.
Thank you for allowing me to care for your patient. Please contact me with any questions or concerns.
Comments
-
This note was dictated using a voice recognition system. Please excuse any typographical errors from shell molder. If you believe there are any discrepancies, please notify our office.

Documented by User: Ivan Godoy MD 05/24/25 15:23
Consultation
Consultation Request
Requesting Provider: Dr. Nazario Castelan: Cat Goodman
Medical History
-
History of Present Illness:
Mr. An is a 70-year-old right-handed male with a recent history of hospitalization lasting one month. He was discharged 05/16 but has been experiencing persistent �fuzziness in the brain� since. The initial hospital admission was due to fluid
overload, where he accumulated 10 to 15 pounds of excess water weight. During the hospital stay, the patient was treated with high doses of diuretics despite 160 mg tablets twice daily, required hospitalization to manage the fluid. While
hospitalized, the patient underwent a TAVR on 05/11/25. He is on dialysis thrice weekly on Tuesdays and and sees Dr. Edwin Yates from Nephrology. Post-hospital discharge, the patient has demonstrated intermittent episodes of altered mental
status. Last Wednesday, after a therapy session involving ambulation, the patient appeared disoriented with symptoms resembling a transient ischemic episode � there was eye deviation, absent facial expression, and transient right facial droop noted by
the spouse. This episode resolved spontaneously shortly after onset.
On 05/20 morning, the patient experienced fecal incontinence followed by an episode where he became unresponsive while being assisted from the toilet. The spouse described the patient as 'completely out of it' with upswing eye movements. After
roughly two minutes, the patient regained awareness. He has a past medical history of Atrial Fib, CAD, CHF (chronic, systolic), COPD, IDDM and Renal Failure, Gastric AVM's with GIB, Gout, C3-C5 moderate-severe stenosis, polyneuropathy, glaucoma,
insomnia, nicotine dependence. Initial CT head showed no acute changes with small old infarcts in posterior left frontal and left occipital lobes. EKG showed atrial fibrillation with ventricular pacing. Due to stool incontinence patient had stool
testing which was positive for C. difficile. He was started on oral vancomycin which was switched to rectal. Brain MRI appreciated large nonhemorrhagic acute/subacute infarct left frontoparietal lobe, MRA Head/neck appreciated No focal
hemodynamically significant stenosis, aneurysm or occlusion. Neurology recommended continue patient on Eliquis and statin, primary team continuing with heparin gtt until carotid US in case of Eliquis failure. Repeat echo 05/21 with no significant
changes to prior echo. 05/22 carotic ultrasound showed diffuse bulky heavily calcified plaque throughout the common carotid artery, carotid bulb and internal carotid artery consistent with greater than 70% internal carotid artery stenosis on the
right side, L CEA is patent.
Physical Exam
Physical Exam
Physical Exam:
General Appearance/Observation: Well-developed, well-nourished male in no apparent distress.
Pain/Comfort Assessment: Denies
Mood/Affect: Appropriate
Integumentary/Operative Site:
Pressure Ulcer: absent
Eyes: Conjunctiva/Lids: normal Pupils: pupils equal round and reactive to light and Accommodation
Ears/Nose/Throat: oral mucosa moist, throat clear. Lips/Teeth/Gums: normal
Neck: No muscle spasm or tenderness
Cardiovascular: Heart: regular rate rhythm, no murmur
Pulses: dorsalis pedis 2+ bilaterally
Respiratory: Respiratory Effort/Chest Expansion: normal Auscultation: Clear to auscultation bilaterally
Gastrointestinal: abdomen not tender, no distension, normal abdominal bowel sounds
Genitourinary: No Olea
Rectal Exam: Deferred
Extremities: Edema: None Cyanosis: None Trophic changes: mild changes in UE
Neurology Exam:
Orientation: Alert, Oriented to self, Time, Place
Memory: Intact immediately
Repetition: Intact
Comprehension: Intact
Two step command: Intact
Naming: Intact
Cranial Nerves:
CNII: Pupillary light reflex: Intact Visual Field: Intact
CN III, IV, : Extraocular muscles: Intact
CN V: Facial Sensation at Forehead: Intact , Maxilla: Intact, Mandible: Intact
CN VII: Facial movement: Asymmetric, R facial droop
CN VIII: Hearing: Normal
CN IX/X: Speech & swallow: Normal, Position of Uvula: Midline
CN XI: Shoulder shrug: Decreased on right
CN XII: Tongue protrusion: R deviation
Sensory:
Light touch: Intact in bilateral upper and lower extremities
Proprioception: intact
Reflexes:
Biceps: 0 bilaterally
Brachioradialis: 0 bilaterally
Triceps:0 bilaterally
Patellar: 0 bilaterally
Achilles: 0 bilaterally
Babinski: Downgoing bilaterally
Clonus: None
Karen: Negative bilaterally
Cerebellar: Dysmetria/Ataxia: left ataxia
Musculoskeletal: Motor: (Manual muscle scale 0-5)
Muscle SA EF WE EE FF FA HF KE DF EHL PF
Right 5 4 4 4 4 3 3 4 5 5 5
Left 5 4 4 4 4 4 3 4 5 5 5
Tone: Normal in all extremities
Range of Motion: Passively within normal limits in all extremities
Assessment / Plan
Plan
PM&R PT/OT to increase independence with ADLs, improve balance, coordination, endurance, strength, mobility, community reintegration, decreased burden of care on others and family education.
CVA: Secondary prophylaxis with statin, anticoagulation per primary team and blood pressure control (SBP less than 180 and diastolic less than 100 to participate with therapy for ischemic stroke). Continue to monitor neurologic status.
-Outpatient carotid stenosis monitoring, no intervention at this time.
Dysphagia: speech, oral care protocol, aspiration precautions. Advance pur�ed and nectar thick liquid diet as tolerated.
Dysarthria: speech
C. difficile: Complete course of oral vancomycin, contact precautions
HTN: Has been having orthostasis with midodrine 2.5 mg 3 times daily
HLD: Statin
Coronary artery disease : statin, GDMT per primary team
S/P TAVR: anticoagulation , BP control
Atrial fibrillation: Apixaban anticoagulation, metoprolol rate control
CHF: EF 30%, beta paulo, monitor fluid status
DM II: Accu-Cheks, insulin sliding scale, lispro, lantus.
Anemia: Likely multifactorial. Continue to monitor.
Thrombocytopenia: Stable in the 70�80 range, monitor. If platelets less than 50,000 recommend keeping therapies to bedside. If platelets less than 20,000 will use further caution with activity levels and hold therapy for platelets less than 10,000.
Difficulty sleeping: Would not use Ambien, could consider small dose trazodone at 25 mg as needed.
Gout: Allopurinol
ESRD on HD //: Per nephrology
FEN: Heart healthy diet with dysphagia restrictions as noted above
Skin: monitor for pressure sores/rashes/lesions.
Pain: acetaminophen or oxycodone as needed.
Bowel: Colace and Senna, PRN bisacodyl.
Bladder: Time void, PVRs, PRN straight cath.
Tobacco Abuse: Smoking cessation counseling. nicotine patch
GI Prophylaxis: Pantoprazole
DVT Prophylaxis: heparin
Pulmonary: Incentive spirometry
Safety: Continue to reinforce assistance with all transfers.
Code Status: Full code
Dispo: Acute rehab
Functional and Medical Goals: Modified Independent with ADL�s, ambulation, transfers
Attending Statement: I performed a history and examined the patient today.� I reviewed the care plan with therapy, nursing, and the resident.� I agree with the history and ROS above as modified.� The physical exam and plan documented reflects my
examination and plan.���A total of 60 minutes were spent with the patient preparing for the evaluation, obtaining history, performing examination and evaluation, counseling, data review, case management, care coordination, order processing clerk, and EMR
documentation.
Summary
-
Summary of recommendations:
- Discharge Destination: Acute rehab patient would benefit from PT/OT to increase independence with ADLs, improve balance, coordination, endurance, strength, mobility, community reintegration, decreased burden of care on others and family education.
Thrombocytopenia: Stable in the 70�80 range, monitor. If platelets less than 50,000 recommend keeping therapies to bedside. If platelets less than 20,000 will use further caution with activity levels and hold therapy for platelets less than 10,000.
Dysphagia: speech, oral care protocol, aspiration precautions. Advance pur�ed and nectar thick liquid diet as tolerated.
Difficulty sleeping: Would not use Ambien, could consider small dose trazodone at 25 mg as needed.
Will sign off, please re-consult if needed.
Thank you for allowing me to care for your patient. Please contact me with any questions or concerns.
--- NOTE | 2025-05-23 12:27 | W.PN.ID1 ---
Addendum entered and electronically signed by Josy Valenzuela MD 05/23/25 14:06:
I saw and evaluated the patient. I reviewed the resident�s note and agree with findings and plan as documented in the resident�s note.
# Primary C. diff diarrhea. mild
- Diarrhea resolved.
- Continue Vancomycin 125 mg po qid (d3 of 10)
# Acute/subacute infarcts with dysphagia, dysarthria, facial droop
# s/p Aspiration during VSE on 05/22.
- Suspect aspiration pneumonitis over pneumonia. Pt cough and sob resolved after aspiration event. Afebrile, normal wbc.
- Observe off abx.
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
# hx HFrEF, ICD implant, CAD, Afib
# ESRD on HD
Original Note:
Date of Service
Date of Service: May 23, 2025
AFVSS. Offers no new complaint
Today's Communication
Continue vancomycin
Assessment / Plan
# Primary C. diff diarrhea. mild
# Acute/subacute infarcts with dysphagia, dysarthria, facial droop
# No suspicion for pneumonia: no cough, exam without crackles, and I personally reviewed CXR
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
# hx HFrEF, ICD implant, CAD, Afib
# ESRD on HD
- Continue Vancomycin qid (d410
- Avoid unnecessary antibiotics.
- noted new CxR from yesterday , will continue to monitor for any o2 need changes
#Conditions affecting care:
TAVR
ESRD on HD
Paroxysmal atrial fibrillation
Chronic hyponatremia
COPD without exacerbation
Chronic heart failure reduced EF 30%
CAD/CABG x 4 (2001)
Medtronic single-chamber ICD, 2017
Carotid disease -s/p left CEA 2012.
Hypotension
DM 2
h/o GI bleed 03/2025 , known h/o AVMS
Chief Complaint
-: C-diff
Subjective / Review of Systems
Review of Systems: No Fever, No Chills, No Abdominal Pain, No Diarrhea and No Dysuria
Vital Signs / Physical Exam
Vital Signs
Vital Signs
Temp Pulse Resp BP Pulse Ox
98.2 F 75 19 124/56 87
05/23/25 11:30 05/23/25 06:00 05/23/25 06:00 05/23/25 06:00 05/23/25 06:00
Physical Exam
Constitutional: No Acute Distress and Chronically Ill
Cardiovascular: Regular Rate
Pulmonary: Clear and Non Labored
Neurological: Awake, Alert and Oriented
Psychological: Calm
Objective Data
Lab Data
Lab Results
05/23/25 04:11
05/23/25 04:11
APTT > 200 Sec (23.4-35.0) H* 05/23/25 04:11
Estimated Creat Clear 33 ml/min 05/23/25 04:11
Lactic Acid Cancelled 05/20/25 16:00
Total Bilirubin 1.3 mg/dl (0.2-1.3) 05/20/25 08:07
AST 40 U/L (17-59) 05/20/25 08:07
ALT 15 U/L (0-50) 05/20/25 08:07
Alkaline Phosphatase 138 U/L (38-126) H 05/20/25 08:07
Most recent labs reviewed.
Micro Results:
05/20/25 12:52 Blood Culture - Preliminary
Blood/Venous No Growth in 48 hours- Final report to follow
05/20/25 12:35 Blood Culture - Preliminary
Blood/Venous No Growth in 48 hours- Final report to follow
05/20/25 12:52 Salmonella/Shigella Culture - Final
Feces/Stool No Salmonella, Shigella, Aeromonas or Plesiomonas species
isolated.
Campylobacter Culture - Final
No Campylobacter species isolated.
Shiga Toxin Test - Final
No E. coli Shiga Toxin 1 or 2 detected.
Stool Leukocytes - Final
05/20/25 16:44 Respiratory Culture - Final
Sputum Gram Stain - Final
05/20/25 10:30 Urine Culture - Final
Urine NO GROWTH
05/20/25 16:44 Nasal Screen MRSA (PCR) - Final
Nose Staph aureus MRSA
05/20/25 12:52 C. difficile GDH Antigen & Toxins - Final
Feces/Stool Toxigenic C.difficile Positive
CXR 05/20/25: Findings suggesting mild right lower lobe pneumonia. Progressed.
Tiny bilateral pleural effusions. Progressed.
Mild cardiomegaly. Stable
CT Head W/o Iv Contrast 05/20/25:
No acute intracranial abnormality noted.
Findings suggesting small old infarcts in the posterior left frontal lobe and left occipital lobe.
Mild periventricular small vessel ischemic disease.
Mild atrophy
MA [place]; MA Neck With Contrast; MR Brain Without Contrast 05/21/25:
Large nonhemorrhagic acute/subacute infarct in the left frontoparietal lobe.
Additional scattered smaller sites of nonhemorrhagic acute/subacute infarcts throughout the bilateral cerebral and cerebellar hemispheres. Findings may reflect embolic etiology.
No focal hemodynamically significant stenosis, aneurysm or occlusion.
[2025-05-23 13:17] LABS: APTT 96.8 Sec (23.4-35.0)
[2025-05-23] MEDS: NICODERM TRANSDERMAL 14 MG TRANSDERM (13:25)
--- NOTE | 2025-05-23 13:42 | PTOTSP ---
Speech Therapy Evaluation:
Motor Speech:
Motor speech deficits observed with concern for at least moderate dysarthria with imprecise articulation, reduced speech rate, and reduced vocal loudness. Provided handout for strategies at improving speech intelligibility. Pt would benefit from
ongoing PET CAREGIVER services at acute care level for further assessment (consider NDAT) and for motor speech tx.
Cognition:
Given acute CVA, cognition assessed via the SLUMS. Pt earned an overall score of 15/30, indicative of neurocognitive impairment per parameters of this assessment. Pt demonstrated reductions in orientation, delayed recall, problem solving/math, digit
recall reverse order (working memory), visuospatial for clock, and story recall. Pt would benefit from PET CAREGIVER services at acute care level and at next level of care to target functional cognitive linguistic skills.
--- NOTE | 2025-05-23 16:29 | CM ---
Following up on Patient. TAISHA Page was told by Medical Team that they are ready from their stand point.
TAISHA Page reviewed referrals made to [facility] and confirmed with [facility] that they will not accept this patient on dialysis. TAISHA Page then called the Spouse Neli to discuss more options.
Neli was not happy with [facility] declining her and wanted TAISHA Page to confirm again. It took sometime convincing, but Neli was able to give TAISHA Page 2 other choices and referrals were made.
TAISHA Page answered about 3 questions so far for [facility] an waiting on the response from [facility]. TAISHA Page will discuss SNF level of care with the spouse as well.
PLAN: Acute Rehab vs SNF if not accepted at an Acute Rehab.
[2025-05-23 16:51] LABS: Glucose - Point of Care 124 mg/dl (70-99)
[2025-05-23] MEDS: ROBITUSSIN 200 MG PO (17:25)
--- NOTE | 2025-05-23 19:21 | PTCARENOTE ---
Dressing placed on right groin site as requested by provider- site it seen no drainage was present. Pubis area w scattered faint ecchymosis no swelling. IV Heparin gtt remained at 700units/hr. RCW HD cath bloody dressing this pm- VAT notified and
came to redress. Currently is bleeding again- reinforced awaiting Vat team- - PTT is due now- drawn and sent.
Failed O2 wean on RAIR- 89% replaced on 2L NC.
OOB in chair (with compression tubigrips and abdominal binder) x2.5 hours today. Slept very well when back to bed.
[2025-05-23 19:37] LABS: APTT 81.5 Sec (23.4-35.0)
[2025-05-23] MEDS: ZYLOPRIM 150 MG PO (21:00)
[2025-05-23] MEDS: REMOVE NICOTINE PATCH 1 PATCH REMOVE (21:00)
--- NOTE | 2025-05-23 21:39 | PTCARENOTE ---
At change of shift pt right IJ HD cath was bleeding through the sterile dressing. Attempted to reinforce with sterile gauze and ABD pads but unable to stop the bleeding. TT VAT. VAT at bedside to redress with sterile dressing and apply quick clot
again. Notified CARDIOLOGY TEACHER. Q6 H&H ordered.
--- NOTE | 2025-05-23 21:43 | PTCARENOTE ---
Pt unable to eat dinner d/t severe coughing episode after 2 bites. Diet currently ordered [id number] - soft and bite sized. Unable to tolerate. Pt will be NPO for remainder of shift until able to be evaluated again.
[2025-05-23 22:24] LABS: Glucose - Point of Care 97 mg/dl (70-99)
[2025-05-23 22:32] LABS: Hematocrit 29.4 % (39.0-52.0); Hemoglobin 9.3 g/dL (13.0-18.0); Platelet Count 88 10^3/uL (130-400)
[2025-05-24] VITALS (15 sets, daily range): BP systolic 104–139; BP diastolic 48–89; PULSE 75; O2SAT 94–95; BMI 26.9
[2025-05-24] MEDS: HEPARIN 25000 UNITS/250 ML IV (02:50)
[2025-05-24 04:44] LABS: Hematocrit 28.2 % (39.0-52.0); Hemoglobin 8.9 g/dL (13.0-18.0); Mean Corp Hgb Conc. 31.6 g/dL (33.0-37.0); Mean Corpuscular Volume 102.9 fL (80.0-94.0); Platelet Count 78 10^3/uL (130-400); Red Cell Dist. Width 16.8 % (11.5-14.5)
[2025-05-24 04:52] LABS: APTT 94.6 Sec (23.4-35.0)
[2025-05-24 05:00] LABS: Blood Urea Nitrogen 21 mg/dl (9-20); Calcium 8.8 mg/dl (8.4-10.2); Carbon Dioxide 28 mmol/L (22-30); Chloride 105 mmol/L (98-107); Estimated Creatinine Clearance 33 ml/min; Glucose 78 mg/dl (70-99); Magnesium 1.8 mg/dl (1.6-2.3); Potassium 3.8 mmol/L (3.5-5.1); Sodium 135 mmol/L (135-145); eGFR 43.56
[2025-05-24] MEDS: FIRVANQ 125 MG PO ×4 (06:33→23:42)
--- NOTE | 2025-05-24 08:05 | W.PN.HOSP.TC ---
Addendum entered and electronically signed by Nazario Castelan DO 05/24/25 12:06:
#pancytopenia. Platelet count 78, hemoglobin 8.3, WBC 4.4. Suspect that this is multifactorial and predominantly reactive to the events of this hospitalization. Will continue to monitor CBC closely with differential. If platelet count drops
below 50 will need to hold off on anticoagulation. Will also need to wait for improvement of platelets before considering adding an antiplatelet agent.
Original Note:
Today's Communication/Plan
-
- Vascular surg for outpatient R CEA eval
- To discuss bridging to warfarin from heparin
- PM&R, PT/OT following
- HD today
- Wean off O2 NC
Assessment / Plan
Assessment / Plan
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
#L frontoparietal CVA
Patient presented on 05/20 with right-sided facial droop, dysarthria. Had been experiencing episodes of being 'out of it' with eye deviation intermittently over the 4 days post discharge on 05/16. Brain MRI (05/21): large nonhemorrhagic acute/subacute
infarct left frontoparietal lobe. MRA head/neck (05/21): No focal hemodynamically significant stenosis, aneurysm or occlusion. Echo (05/21): EF 25-30; compared to prior echo 05/11, no significant changes in TR (mod-severe); global hypokinesis. Carotid
US (05/22): 'R side - Diffuse bulky heavily calcified plaque is identified throughout the common carotid artery, carotid bulb and internal carotid artery. Greater than 70% internal carotid artery stenosis. L side - endart patent.' Patient denies
having missed any doses of home Eliquis. Stroke etiology ddx: cardioembolic/eliquis failure vs. atherosclerotic embolus (L-sided stroke, R-sided ICA stenosis) vs. occult malignancy - favor eliquis failure.
- Continue telemetry
- 80 mg atorvastatin daily
- Discuss bridging to warfarin with cards today, given suspected eliquis failure
- Consult vascular surgery - inpt vs. outpatient candidacy for R CEA
- Neurology following, appreciate recs
- Cardiology following, appreciate recs
- PT/OT following
- PM&R following for rehab eval
- Follow up in outpt w PCP for w/u of occult malignancy
#Thrombocytopenia
#Leukopenia
Platelets in the 120s on prior admission earlier this month. On 05/23, trended down to 72; have remained low. WBC trended down to 4.4 on 05/24. RBC stable in pt chronic range. 4T score of 3-4 so low probability of HIT; more likely reactive
thrombocytopenia & leukopenia or mild HIT. Less likely malignancy given pt lack of weight loss, night sweats, other sx. Pt has been on heparin since 05/21.
Plt: 72>88>78 ; WBC 4.4
- Continue to monitor
- Consider BM biopsy in outpatient setting
#C. difficile diarrhea, resolving
Patient with mild diarrhea; C. difficile positive 05/20. Patient received preop cefazolin on 05/11/2025 in advance of TAVR. Was discharged on 05/16 after a month-long stay in hospital. Diarrhea resolved.
- Vancomycin PO 125mg qid (05/22- ; s/p vanc enema 05/21-) for 10 day course
- ID following, appreciate recs
#Acute hypoxic insufficiency, resolved
Patient with 98% O2 sat on 2 L O2 NC. Has been satting above 94% on 2 L O2 NC since admission. On 05/22 after video swallow study, patient with worsening dyspnea & requiring 6L O2 to sat 94%. Improved s/p bipap. Likely 2/2 aspiration during swallow
study. CXR 05/22: 'Patchy opacities in the base, progressed compared to prior chest x-ray, suggestive of bibasilar pneumonia, aspiration or subsegmental atelectasis.'
Today, 98% on 2L NC.
- Diet without thin liquids
- Incentive spirometer
- Remove O2 NC today
#Positive MRSA
Patient nasal swab positive for MRSA on 05/20. Patient had just been discharged on 05/16 after a month-long hospital stay. Likely became colonized during this time. Patient has not had leukocytosis or fever this admission.
WBC 5.3. Patient afebrile (97.7). Likely colonization in the setting of his long stay without any active infection.
- Patient in isolation room
- Continue to monitor for any infectious symptoms
#CXR w R-sided effusion
CXR (05/20): 'Findings suggesting mild right lower lobe pneumonia. Progressed. Tiny bilateral pleural effusions. Progressed.' Had been started on cefepime and vancomycin due to c/f HAP. Per ID eval 05/21, very low suspicion for PNA. R-sided fluid
likely 2/2 known right sided effusion that was drained 3 times during prior admission by IR. Sputum culture unable to be evaluated. Patient with chronic smoker's cough.
- Continue to monitor pulmonary symptoms, O2 requirement
- Therapeutic thora if needed
#Chronic
- T2DM - home lantus 14U, aspart 3U, sliding scale
- HFrEF (25-30% EF; s/p TAVR) - daily I&Os; daily weights (at dry weight currently 72kg); continue home metoprolol; cards following, appreciate recs; monitor R groin site
- ESRD on HD - continue dialysis T//S; nephrology following, appreciate recs
- Orthostatic hypotension - abdominal binder, compression stockings; home midodrine
- Tobacco use - start nicotine patch
- Gout - allopurinol
- Home meds - guaifenisin, B12; holding ambien
#Global
- DVT PPx: heparin today; to discuss warfarin w cards
- Code: Full
- Diet: puree; pending SLT
- Dispo: Patient lives at home with his ; had been discharged on 05/16 with VN & home PT; dispo pending PM&R, PT/OT, case mgmt
Anticipated Discharge: 24 - 48 hours
Subjective/Interval History
-
Date of Service: May 24, 2025
Patient says that he was 'beaten up all night' from coughing. Says that cough is worse than yesterday. Denies any blood in sputum. Denies any SOB or CP.
Objective Data
-
Labs:
Laboratory Results
05/23/25 05/24/25 05/24/25
22:14 03:15 04:21
WBC 4.4 L
Hgb 9.3 L Pending 8.9 L
Hct 29.4 L Pending 28.2 L
Plt Count 88 L D 78 L
APTT 94.6 H
Sodium 135
Potassium 3.8
Chloride 105
Carbon Dioxide 28
BUN 21 H
Creatinine 1.6 H
Glucose 78
Calcium 8.8
05/24/25
09:15
WBC
Hgb Pending
Hct Pending
Plt Count
APTT
Sodium
Potassium
Chloride
Carbon Dioxide
BUN
Creatinine
Glucose
Calcium
Vital Signs:
Vital Signs
Temp Pulse Resp BP Pulse Ox
97.6 F 76 20 123/58 98
05/24/25 03:00 05/24/25 02:00 05/24/25 02:00 05/24/25 02:00 05/24/25 02:00
I&O
05/23/25 05/24/25 05/25/25
06:59 06:59 06:59
Intake Total 1698 / 1698 400 / 400
Output Total 50 / 50 150 / 150 125 / 125
Balance 1648 / 1648 250 / 250 -125 / -125
Review of Systems
-
History Source: Patient
Respiratory: Reports Cough
Physical Exam
-
General: Well Developed, Well Nourished and Comfortable
HEENT: Normocephalic, Atraumatic and Anicteric
Respiratory: Non Labored Respirations and Other (O2 NC in place)
Cardiac: Regular Rhythm
GI: Nondistended
Musculoskeletal: No Edema
Skin: Warm, Dry and Other (Catheterization site in right groin from TAVR 05/11 with red punctate wound; some dried blood on gown adjacent to area; feels firm/indurated under skin around catheterization site; no drainage, no purulence, no surrounding
erythema, no warmth)
Neuro: Awake, Alert, Oriented and Other (R face weakness/droop, some dysarthria ; R arm & leg able to be lifted from bed, strength symmetric w L )
Psych: Calm
Data Reviewed
-
Total Time Spent with Patient (in minutes): 10
Critical Care Time (in minutes): 35
Labs: Labs Reviewed by me
[2025-05-24 08:27] LABS: Glucose - Point of Care 77 mg/dl (70-99)
[2025-05-24] MEDS: AZOPT 1% OPHTHALMIC SUSPENSION 1 DROP BOTH EYES ×2 (08:42→20:54)
[2025-05-24] MEDS: NOVOLOG FLEXPEN-MODERATE RESISTANCE SC ×2 (08:42→11:38)
[2025-05-24] MEDS: NOVOLOG FLEXPEN SC (08:42)
[2025-05-24] MEDS: NICODERM TRANSDERMAL 14 MG TRANSDERM (08:44)
[2025-05-24] MEDS: NSS (PRESERVATIVE FREE) 10 ML IV (08:45)
[2025-05-24] MEDS: PROTONIX IV 40 MG IV (08:45)
[2025-05-24] MEDS: TOPROL XL 12.5 MG PO (08:46)
[2025-05-24] MEDS: ZYLOPRIM 150 MG PO ×2 (08:46→20:55)
[2025-05-24] MEDS: VITAMIN B-12 1000 MCG PO (08:46)
[2025-05-24] MEDS: LIPITOR 80 MG PO (08:46)
[2025-05-24] MEDS: LANTUS SC (08:49)
--- NOTE | 2025-05-24 08:55 | W.PN.ID1 ---
Addendum entered and electronically signed by Josy Valenzuela MD 05/24/25 12:53:
I saw and evaluated the patient. I reviewed the resident�s note and agree with findings and plan as documented in the resident�s note.
# Primary C. diff diarrhea. mild
- Diarrhea resolved.
- Continue Vancomycin 125 mg po qid (d4 of 10)
# s/p Aspiration during VSE on 05/22.
- Aspiration pneumonitis over pneumonia. Pt cough and sob resolved after aspiration event. Afebrile, normal wbc.
- Continue to observe off abx.
# Acute/subacute infarcts
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
# hx HFrEF, ICD implant, CAD, Afib
# ESRD on HD
Original Note:
Date of Service
Date of Service: May 24, 2025
AFVSS.
Today's Communication
Continue vancomycin through 05/30/25
Assessment / Plan
# Primary C. diff diarrhea. mild
# Acute/subacute infarcts with dysphagia, dysarthria, facial droop
# No suspicion for pneumonia: no cough, exam without crackles, and I personally reviewed CXR
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
# hx HFrEF, ICD implant, CAD, Afib
# ESRD on HD
- Diarrhea resolved ; Continue Vancomycin qid for total 10 days
# s/p Aspiration during VSE on 05/22. ; Suspect aspiration pneumonitis over pneumonia
- Avoid unnecessary antibiotics.
- noted new CxR from 05/22/25 , will continue to monitor for any o2 need changes;
#Conditions affecting care:
TAVR
ESRD on HD
Paroxysmal atrial fibrillation
Chronic hyponatremia
COPD without exacerbation
Chronic heart failure reduced EF 30%
CAD/CABG x 4 (2001)
[employer]tronic single-chamber ICD, 2018
Carotid disease -s/p left CEA 2012.
Hypotension
DM 2
h/o GI bleed 03/2025 , known h/o AVMS
Chief Complaint
-: C-diff
Subjective / Review of Systems
Review of Systems: No Fever, Cough (intermittent), No Abdominal Pain, No Vomiting and No Diarrhea
Vital Signs / Physical Exam
Vital Signs
Vital Signs
Temp Pulse Resp BP Pulse Ox
97.6 F 76 20 123/58 98
05/24/25 03:00 05/24/25 02:00 05/24/25 02:00 05/24/25 02:00 05/24/25 02:00
Physical Exam
Constitutional: No Acute Distress and Chronically Ill
Cardiovascular: Regular Rate
Pulmonary: Clear, Symmetric and Non Labored
Extremities: Edema
Neurological: Awake, Alert and Oriented
Psychological: Calm
Objective Data
Lab Data
Lab Results
05/24/25 04:21
APTT 94.6 Sec (23.4-35.0) H 05/24/25 04:21
Estimated Creat Clear 33 ml/min 05/24/25 04:21
Lactic Acid Cancelled 05/20/25 16:00
Total Bilirubin 1.3 mg/dl (0.2-1.3) 05/20/25 08:07
AST 40 U/L (17-59) 05/20/25 08:07
ALT 15 U/L (0-50) 05/20/25 08:07
Alkaline Phosphatase 138 U/L (38-126) H 05/20/25 08:07
Most recent labs reviewed.
Micro Results:
05/20/25 12:52 Blood Culture - Preliminary
Blood/Venous No Growth in 72 hours- Final report to follow
05/20/25 12:35 Blood Culture - Preliminary
Blood/Venous No Growth in 72 hours- Final report to follow
05/20/25 12:52 Salmonella/Shigella Culture - Final
Feces/Stool No Salmonella, Shigella, Aeromonas or Plesiomonas species
isolated.
Campylobacter Culture - Final
No Campylobacter species isolated.
Shiga Toxin Test - Final
No E. coli Shiga Toxin 1 or 2 detected.
Stool Leukocytes - Final
05/20/25 16:44 Respiratory Culture - Final
Sputum Gram Stain - Final
05/20/25 10:30 Urine Culture - Final
Urine NO GROWTH
05/20/25 16:44 Nasal Screen MRSA (PCR) - Final
Nose Staph aureus MRSA
05/20/25 12:52 C. difficile GDH Antigen & Toxins - Final
Feces/Stool Toxigenic C.difficile Positive
CXR 05/20/25: Findings suggesting mild right lower lobe pneumonia. Progressed.
Tiny bilateral pleural effusions. Progressed.
Mild cardiomegaly. Stable
CT Head W/o Iv Contrast 05/20/25:
No acute intracranial abnormality noted.
Findings suggesting small old infarcts in the posterior left frontal lobe and left occipital lobe.
Mild periventricular small vessel ischemic disease.
Mild atrophy
MA [place]; MA Neck With Contrast; MR Brain Without Contrast 05/21/25:
Large nonhemorrhagic acute/subacute infarct in the left frontoparietal lobe.
Additional scattered smaller sites of nonhemorrhagic acute/subacute infarcts throughout the bilateral cerebral and cerebellar hemispheres. Findings may reflect embolic etiology.
No focal hemodynamically significant stenosis, aneurysm or occlusion.
CR Chest Portable 05/22/25:
1. Patchy opacities in the base, progressed compared to prior chest x-ray, suggestive of bibasilar pneumonia, aspiration or subsegmental atelectasis
2. Mild interstitial prominence, suggestive of mild pulmonary vascular congestion.
3. Small bilateral pleural effusions may be present. Consider PA and lateral views when possible.
--- NOTE | 2025-05-24 09:30 | W.PN.CARDCBS ---
Today's Communication / Plan
-
HR and bp stable from cardiac standpoint in setting of recent left hemispheric stroke.
Cont tele
Cont IV Heparin and transition back to oral anticoagulation with Eliquis once ok with neuro and no further procedures planned.
Neuro notes continuing Eliquis and that there are now studies to suggest switching would reduce recurrent stroke risk. Could consider Pradaxa but in discussion with nephrology this is not ideal with pt getting HD
Would defer change to alternative anticoagulant or the addition of antiplatelet therapy to neurology.
Consider vascular input with regards to carotid u/s findings.
LOUIE would not private branch exchange service adviser in this case with regards to need for anticoagulation in setting of persistent aFib and CVA.
Continue medical therapy of non-MD troponin. Peak 0.2 and trended down.
Patient with stable [place] and graft disease by last cardiac cath 03/15/2025
Impression / Plan
-
.
PCP: Dr. Eason
Primary Repairer And Checker: Dr. Sutton
Impression:
Acute left frontoparietal stroke
Recent admission for acute HFrEF, JAY leading to new HD and TAVR 04/18/2025 until 05/16/2025
Dysarthria and right-sided weakness concerning for possible left MCA territory CVA
C. difficile colitis
Chronic HFrEF, proBNP 18,500
ESRD on HD
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
Elevated Troponin
CAD
s/p CABG with NAVAS to LAD, free radial to ramus, SVG to OM and SVG to PDA 2001
s/p cardiac cath with patent NAVAS to LAD, widely patent free radial to ramus, 100% occluded SVG to OM and 50 to 55% mid stenosis of the SVG to the PDA to be stable 03/15/2025
ICM EF 31%, echo 03/12/2025
History of reduced ejection fraction heart failure with improved EF
carotid disease s/p left CEA in 2012
s/p Medtronic single chamber ICD 2017
Persistent Afib
Chronic Eliquis OAC
DM 2
Gout
Smoker, ongoing tobacco use
Echo 08/23/2019: EF 30-35%, global hypokinesis with inferolateral, inferior and basal septal akinesis, mild MR, sev pressure 47/28 mmHg
ECHO 12/03/22: EF 50%, mild LVH, stage III diastolic dysfunction, mild MR, severe with peak/mean gradients 54/28 mmHg, KAELYN 0.8 cm�, trace AR, mild TR, PAP 64 mmHg, mild dilation of aorta measuring 4.0 cm
Echo 10/09/2024: EF 35 to 40%, moderate eccentric MR, severe peak/mean 60/34 mmHg and KAELYN 0.8 cm sq, mild aortic insufficiency, moderate TR with PAP 64 mmHg
Echo 03/12/2025: EF 31%, global hypokinesis, moderate MR, severe peak/mean 41/22 mmHg and KAELYN 0.7 cm sq, mild aortic regurgitation, moderate to severe TR with PAP 72 mmHg
Echo 05/11/2025: s/p TAVR with #29 Donovan BLAISE 3 aortic valve prosthesis with peak/mean 6/3 mmHg, mild MR, moderate to severe TR with PAP 60 mmHg
Echo 05/21/2025: EF 25-30%, global hypokinesis basal inferior akinesis, TAVR with mean aortic valve gradient of 6, mildly dilated left atrium, mild mitral regurgitation, mild TR, unchanged from prior
Carotid u/s 05/23/2025: RIGHT: Diffuse bulky heavily calcified plaque is identified throughout the common carotid artery, carotid bulb and internal carotid artery. Carotid velocity measurements are consistent with greater than 70% internal carotid
artery stenosis. Vertebral artery flow is antegrade.
LEFT: Left carotid endarterectomy is patent. Carotid velocity measurements are consistent with less than 50% internal carotid artery stenosis. Vertebral artery flow is antegrade.
Plan:
HR and bp stable from cardiac standpoint in setting of recent left hemispheric stroke.
Cont tele
Cont IV Heparin and transition back to oral anticoagulation with Eliquis once ok with neuro and no further procedures planned.
Neuro notes continuing Eliquis and that there are now studies to suggest switching would reduce recurrent stroke risk. Could consider Pradaxa but in discussion with nephrology this is not ideal with pt getting HD
Would defer change to alternative anticoagulant or the addition of antiplatelet therapy to neurology.
Consider vascular input with regards to carotid u/s findings.
LOUIE would not private branch exchange service adviser in this case with regards to need for anticoagulation in setting of persistent aFib and CVA.
Continue medical therapy of non-MD troponin. Peak 0.2 and trended down.
Patient with stable [place] and graft disease by last cardiac cath 03/15/2025
Continue supportive care.PT/OT
ESRD on HD as per nephrology
Discussed with daughter last 24 hrs
Discussed with nephrology and primary service.
Progress Note - Repairer And Checker
Subjective
Date of Service: May 24, 2025
Pt seen and examined. No complaints. No chest pain or shortness of breath.
Objective
Labs:
05/24/25 04:21
Labs
Hgb 8.9 g/dL (13.0-18.0) L 05/24/25 04:21
Hct 28.2 % (39.0-52.0) L 05/24/25 04:21
Plt Count 78 10^3/uL (130-400) L 05/24/25 04:21
APTT 94.6 Sec (23.4-35.0) H 05/24/25 04:21
Sodium 135 mmol/L (135-145) 05/24/25 04:21
Potassium 3.8 mmol/L (3.5-5.1) 05/24/25 04:21
BUN 21 mg/dl (9-20) H 05/24/25 04:21
Creatinine 1.6 mg/dL (0.7-1.3) H 05/24/25 04:21
Glucose 78 mg/dl (70-99) 05/24/25 04:21
Troponins
05/22/25
07:01
Troponin I 0.196 H*
Vital Signs and I&O:
Vital Signs
Temp Pulse Resp BP Pulse Ox
97.6 F 75 20 117/66 98
05/24/25 03:00 05/24/25 08:46 05/24/25 02:00 05/24/25 08:46 05/24/25 02:00
Vital Signs
Temp Pulse Resp BP Pulse Ox
97.6 F 75 20 117/66 98
05/24/25 03:00 05/24/25 08:46 05/24/25 02:00 05/24/25 08:46 05/24/25 02:00
Intake & Output
05/22/25 05/23/25 05/24/25 05/25/25
06:59 06:59 06:59 06:59
Intake Total 828 / 828 1698 / 1698 400 / 400
Output Total 150 / 150 50 / 50 150 / 150 125 / 125
Balance 678 / 678 1648 / 1648 250 / 250 -125 / -125
Physical Exam
Physical Exam
General: No acute distress, AAOX3
HEENT: Dysarthria
Neck: Negative JVD
Heart: Regular, Negative S3 positive S1/S2, Negative S4, No murmur
Lungs: CTA b/l, negative wheezes/rales/rhonchi
Abd: Positive BS, NT/ND, neg rebound/rigidity/guarding
Ext: Negative cyanosis/clubbing/edema
Neuro: nonfocal
--- NOTE | 2025-05-24 11:07 | W.PN.NEURO.1 ---
Today's Communication / Plan
-
May continue apixaban for secondary stroke prevention or replace with dabigatran; there are no studies to confirm benefit by changing classes of anticoagulation in the field of stroke, unfortunately
atorvastatin 80 mg nightly
Would curbside vascular surgery regarding right internal carotid artery stenosis
Follow orthostatic vital signs, encourage abdominal binder when ambulating
Neuro Assessment/Plan
Assessment
79-year-old male with several recent hospitalizations for heart failure, afib on apixaban, s/p ICD, COPD, IDDM, CKD on HD (T,TH,S) b/l CEA, CABG (x4 2001), TAVR presented to [facility] on 05/20/2025 for evaluation of acute onset of speech difficulty after
episode of unresponsiveness.
Labs: Sodium�129, glucose�124, creatinine�1.3, normal lactic acid, MCV�102.4, platelets�111: PTT�39.0, Mg 1.6
CT head wo contrast-small old infarcts in the posterior left frontal lobe and left occipital lobe.
MRA head and neck:focal approximate 75% stenosis involving the proximal right internal carotid artery (series 601, image 80)
MRI of brain: 'Large nonhemorrhagic acute/subacute infarct in the left frontoparietal lobe. Additional scattered smaller sites of nonhemorrhagic acute/subacute infarcts throughout the bilateral cerebral and cerebellar hemispheres. Findings may
reflect embolic etiology.'
Assessment:
I. Bihemispheric acute ischemic strokes, most likely embolic
II. Permanent atrial fibrillation on apixaban, most likely medication failure
III. History of bilateral CEA.
IV. Probable orthostatic hypotension
Plan
May continue apixaban for secondary stroke prevention or replace with dabigatran; there are no studies to confirm benefit by changing classes of anticoagulation in the field of stroke, unfortunately
atorvastatin 80 mg nightly
Would curbside vascular surgery regarding right internal carotid artery stenosis
Follow orthostatic vital signs, encourage abdominal binder when ambulating
fall precautions
Will follow as needed
Subjective/Objective
Subjective Data
Date of Service: May 24, 2025
Objective Data
Vital Signs
Temp Pulse Resp BP Pulse Ox
36.4 C 75 20 117/66 98
05/24/25 07:00 05/24/25 08:46 05/24/25 02:00 05/24/25 08:46 05/24/25 02:00
Lab Results
05/24/25 09:15
05/24/25 04:21
APTT 94.6 Sec (23.4-35.0) H 05/24/25 04:21
Sodium 135 mmol/L (135-145) 05/24/25 04:21
Potassium 3.8 mmol/L (3.5-5.1) 05/24/25 04:21
BUN 21 mg/dl (9-20) H 05/24/25 04:21
Glucose 78 mg/dl (70-99) 05/24/25 04:21
Calcium 8.8 mg/dl (8.4-10.2) 05/24/25 04:21
Phosphorus 3.0 mg/dl (2.5-4.5) 05/24/25 04:21
Oub-E-Xvqfbnccjew Pept 6900 pg/ml 05/20/25 08:07
LDL Cholesterol, Calc 37 mg/dl 05/21/25 04:29
Vitamin B12 909 pg/ml (239-931) 05/20/25 16:44
Patient Allergies
grass pollen Allergy (Verified 04/18/25 15:57)
SNEEZING
ragweed pollen Allergy (Verified 04/18/25 15:57)
NASAL CONGESTION
Past History
Past History
ED Past Medical History: Arrthythmia (atrial fibrillation), CAD, CHF, HTN, Hypercholesterolemia, NIDDM, [place], Renal failure and Other (Carotid stenosis, gout, BPH, recurrent epistaxis)
ED Past Surgical History: Cardiac (CABG, PTCA with stent), Cholecystectomy and Other (Carotid endarterectomy)
Social History
Tobacco: Smoker
Alcohol: None
Drug: None
Personal:
Living: with family
Employment: Retired
Family History
Family History: Other (Noncontributory)
Medications
-
Medications:
Generic Name Dose Route Start Last Admin
Trade Name Freq PRN Reason Stop Dose Admin
Acetaminophen 650 mg 05/20/25 13:29
Acetaminophen 650 Mg Rectal Suppository RECTAL 06/17/25 13:28
Q4HPRN PRN
GARCIA, mild pain, or temp >100.4F
Acetaminophen 650 mg 05/20/25 13:29
Acetaminophen 325 Mg Tablet PO 06/17/25 13:28
Q4HPRN PRN
GARCIA, mild pain, or temp >100.4F
Allopurinol 150 mg 05/20/25 20:00 05/24/25 08:46
Allopurinol 300 Mg Tablet PO 06/17/25 19:59 150 mg
BID MARGARITA Administration
Atorvastatin Calcium 80 mg 05/21/25 08:00 05/24/25 08:46
Atorvastatin (Lipitor) 80 Mg Tablet PO 06/18/25 07:59 80 mg
DAILY MARGARITA Administration
Brinzolamide 1 drop 05/20/25 20:00 05/24/25 08:42
Brinzolamide 1% (Ophthalmic Suspension) 10 Ml Bottle BOTH EYES 06/17/25 19:59 1 drop
BID MARGARITA Administration
Cyanocobalamin 1,000 mcg 05/21/25 08:00 05/24/25 08:46
Cyanocobalamin (Vitamin B-12) 500 Mcg Tablet PO 06/18/25 07:59 1,000 mcg
DAILY MARGARITA Administration
Dextrose 12.5 grams 05/20/25 13:29
Dextrose 50% (0.5 Grams/Ml) 50 Ml Syringe IV 06/17/25 13:28
[id number] PRN
hypoglycemia
Protocol
Glucagon 1 mg 05/20/25 13:29
Glucagon 1 Mg Vial IM 06/17/25 13:28
PRN PRN
hypoglycemia
Protocol
Guaifenesin 200 mg 05/20/25 14:04 05/23/25 17:25
Guaifenesin Oral Solution (200 Mg/10 Ml) Cup PO 06/17/25 14:03 200 mg
Q4HPRN PRN Administration
cough
Insulin Glargine 14 units/ 0.14 mls @ 0 mls/hr 05/23/25 08:00 05/24/25 08:49
Device SC 06/20/25 07:59 Not Given
DAILY MARGARITA
As Directed
Heparin Sodium 25,000 units in 250 mls @ 0 mls/hr 05/23/25 12:30 05/24/25 02:50
Heparin 42528 Units/250 Ml IV 250 mls
PER PROTOCOL MARGARITA Administration
Protocol
Per Protocol
Insulin Aspart 3 units 05/20/25 16:30 05/24/25 08:42
Insulin Aspart (Novolog) 100 Units/Ml 3 Ml Flexpen SC 06/17/25 16:29 Not Given
AC MARGARITA
Insulin Aspart 0 units 05/23/25 07:30 05/24/25 08:42
Insulin Aspart Moderate Resistance 300 Units/3 Ml Pen.Injctr SC 06/20/25 07:29 Not Given
AC MARGARITA
Protocol
Metoprolol Succinate 12.5 mg 05/21/25 08:00 05/24/25 08:46
Metoprolol 12.5 Mg Extended Release Dose (1/2 Of 25 Mg Xl Tablet) PO 06/18/25 07:59 12.5 mg
DAILY MARGARITA Administration
Midodrine 2.5 mg 05/20/25 22:00 05/24/25 08:47
Midodrine 2.5 Mg Tablet PO 2.5 mg
TID MARGARITA Administration
Nicotine 14 mg 05/23/25 12:00 05/24/25 08:44
Nicotine 14 Mg Patch TRANSDERM 06/20/25 11:59 14 mg
DAILY MARGARITA Administration
Pantoprazole Sodium 40 mg 05/24/25 20:00
Pantoprazole 40 Mg Delayed Release Tablet PO 06/21/25 19:59
BID MARGARITA
Patch Removal 1 patch 05/23/25 22:00 05/23/25 21:00
Remove Nicotine Patch REMOVE 06/20/25 21:59 1 patch
HS MARGARITA Administration
Sodium Chloride 0 flush 05/20/25 14:00
Sodium Chloride 0.9% (Flush) Syringe IV 06/17/25 13:59
PER PROTOCOL MARGARITA
Vancomycin HCl 125 mg 05/22/25 18:00 05/24/25 06:33
Vancomycin Oral Solution 50 Mg/Ml In Oral Syringe PO 125 mg
Q6 MARGARITA Administration
Zolpidem Tartrate 5 mg 05/20/25 15:46
Zolpidem Tartrate 5 Mg Tablet PO 06/17/25 15:45
On Hold: 05/20/25 20:50 HSPRN PRN
Comment: Pt strict NPO sleep
[2025-05-24 11:36] LABS: Glucose - Point of Care 124 mg/dl (70-99)
--- NOTE | 2025-05-24 11:40 | W.PN.NEPH.PH ---
Today's Communication / Plan
-
lasix
Assessment/Plan
-
IMP:
TAVR
ESRD
Paroxysmal atrial fibrillation
Chronic hyponatremia
COPD without exacerbation
Chronic heart failure reduced EF 30%
CAD/CABG x 4 (2001)
Medtronic single-chamber ICD, 2017
Carotid disease -s/p left CEA 2012.
Hypotension
DM 2
h/o GI bleed 03/2025 , known h/o AVMS
Confusion
Old CVA
Plan:
continue midodrine
on heparin gtt
no HD today
lasix trial
Antibiotics for pneumonia
-
-
Date of Service: May 24, 2025
CC / HPI / ROS
-
Chief Complaint:
MS change
History of Present Illness:
Cr stable 1.6
BP stable
on vanco for C diff colitis
on heparin gtt with recent large CVA
Review of Systems:
no CP/SOB
Labs
-
Labs:
WBC 4.4 10^3/uL (4.8-10.8) L 05/24/25 04:21
RBC 2.74 10^6/uL (4.70-6.10) L 05/24/25 04:21
Hgb Cancelled 05/24/25 09:15
Hct Cancelled 05/24/25 09:15
Plt Count 78 10^3/uL (130-400) L 05/24/25 04:21
Sodium 135 mmol/L (135-145) 05/24/25 04:21
Potassium 3.8 mmol/L (3.5-5.1) 05/24/25 04:21
Chloride 105 mmol/L (98-107) 05/24/25 04:21
Carbon Dioxide 28 mmol/L (22-30) 05/24/25 04:21
BUN 21 mg/dl (9-20) H 05/24/25 04:21
Creatinine 1.6 mg/dL (0.7-1.3) H 05/24/25 04:21
eGFR 43.56 05/24/25 04:21
Glucose 78 mg/dl (70-99) 05/24/25 04:21
Calcium 8.8 mg/dl (8.4-10.2) 05/24/25 04:21
Phosphorus 3.0 mg/dl (2.5-4.5) 05/24/25 04:21
Liv-W-Beolwmqvcdu Pept 6900 pg/ml 05/20/25 08:07
Albumin 3.1 g/dl (3.5-5.0) L 05/20/25 08:07
Physical Exam
-
Vital Signs:
Vital Signs
Temp Pulse Resp BP Pulse Ox
97.5 F 76 23 110/54 95
05/24/25 07:00 05/24/25 10:18 05/24/25 10:18 05/24/25 10:18 05/24/25 11:25
Cardiovascular:: Regular rate and rhythm
Respiratory:: Bilateral: Coarse
Lung Excursion:: Normal
Abdomen:: Nontender and Soft
Bowel Sounds:: Normal
Extremity Edema:: +1: Bilateral:
[2025-05-24] MEDS: NOVOLOG FLEXPEN 3 UNITS SC ×2 (12:01→17:54)
[2025-05-24] MEDS: LASIX 40 MG PO (12:02)
[2025-05-24 14:12] LABS: Hematocrit 28.6 % (39.0-52.0); Hemoglobin 9.0 g/dL (13.0-18.0); Mean Corp Hgb Conc. 31.5 g/dL (33.0-37.0); Mean Corpuscular Volume 102.9 fL (80.0-94.0); Nucleated Red Blood Cells % 0 % (-); Platelet Count 81 10^3/uL (130-400); Red Cell Dist. Width 16.6 % (11.5-14.5)
[2025-05-24 17:12] LABS: Glucose - Point of Care 176 mg/dl (70-99)
--- NOTE | 2025-05-24 17:26 | PTCARENOTE ---
Patient with complaint of productive cough. VSS. Attempted to wean from O2 but sats dropped to 86%, back on 2L NC, sats currently 98%. Vpaced with occasional PVCs on monitor. @1330 patients HD cath began to saturate dressing, IV team redressed and
placed pressure at site, so far no more bleeding, patient has been back in bed since. Patient tolerating pureed diet with NTL. at bedside speaking to MD Yates. Patient making needs known, will continue to closely monitor.
--- NOTE | 2025-05-24 17:41 | CM ---
Following up on Patient. [facility] still has not responded and [facility] called to say he is accepted.
wants [facility] so [facility] will give a little more time. Then later in the say, the told the RN that she would like him off Dialysis to then go to Rehab without it. Medical Team aware of this, will talk to her, but likely he will stay
on dialysis.
[facility] will present only the one option in the AM and see if patient can discharge from Medical standpoint seeing when this could happen because if agrees to [facility], they would have to say if they can accept him late tomorrow or over the
weekend.
PLAN: Acute Rehab
[2025-05-24] MEDS: NOVOLOG FLEXPEN-MODERATE RESISTANCE 1 UNITS SC (17:54)
[2025-05-24] MEDS: PROTONIX 40 MG PO (20:54)
[2025-05-24] MEDS: REMOVE NICOTINE PATCH 1 PATCH REMOVE (20:56)
[2025-05-24 23:30] LABS: Glucose - Point of Care 107 mg/dl (70-99)
--- NOTE | 2025-05-24 23:46 | VATNOTE ---
CALLED TO ASSESS CONTINUING BLEEDING OF RIJ HD CATH. DRSG GROSSLY BLOODY WITH SATURATED BED LINENS AND NOTABLE TRICKLING OF BRB FROM INSERTION SITE. RD PER PROTOCOL WITH SURGIFOAM AND QUICK CLOT WELL MULTIPLE LAYERS OF 4X4'S. OF NOTE.. BULBUS
AREA NOTED AT CATHETER INSERTION SITE. HOB ELEVATED APPROX 30 DEGREES AND PT ENCOURAGED TO LIMIT USE OF RUE. PCN AT BEDSIDE AND AWRE OF INTERVETNION AND PLAN OF CARE. VAT TO FOLLOW.
[2025-05-25] VITALS (17 sets, daily range): BP systolic 75–149; BP diastolic 46–68; PULSE 76; O2SAT 99–100; BMI 27.4
[2025-05-25 04:59] LABS: Hematocrit 28.8 % (39.0-52.0); Hemoglobin 9.2 g/dL (13.0-18.0); Mean Corp Hgb Conc. 31.9 g/dL (33.0-37.0); Mean Corpuscular Volume 102.9 fL (80.0-94.0); Platelet Count 79 10^3/uL (130-400); Red Cell Dist. Width 16.7 % (11.5-14.5)
[2025-05-25 05:03] LABS: APTT 79.8 Sec (23.4-35.0)
--- NOTE | 2025-05-25 05:26 | PTCARENOTE ---
Pt R Chest wall HD cath continues to bleed. VAT redressed x2. Bleeding increases when pt moves right arm. Limiting right arm use until further direction advised. NIH remains a 3; no change in assessment. Resting in bed with call moreno in reach.
--- NOTE | 2025-05-25 05:44 | VATNOTE ---
RIJ TUNN HDC ACTIVELY BLEEDING AGAIN. DRSG AND BED LINENS SATURATED. RD WITH SURGIFOAM AND MULTIPLE LAYERS OF FOLDED 4X4'S. OBVIOUS TRICKLING OF BRB FROM EXIT SITE OF HDC. PCN AWARE OF INTERVENTION
[2025-05-25] MEDS: FIRVANQ 125 MG PO ×4 (05:55→23:06)
[2025-05-25 06:05] LABS: Blood Urea Nitrogen 23 mg/dl (9-20); Calcium 8.8 mg/dl (8.4-10.2); Carbon Dioxide 27 mmol/L (22-30); Chloride 104 mmol/L (98-107); Estimated Creatinine Clearance 33 ml/min; Glucose 102 mg/dl (70-99); Magnesium 1.6 mg/dl (1.6-2.3); Potassium 4.3 mmol/L (3.5-5.1); Sodium 133 mmol/L (135-145); eGFR 43.56
[2025-05-25 07:53] LABS: Glucose - Point of Care 104 mg/dl (70-99)
--- NOTE | 2025-05-25 08:28 | W.PN.HOSP.TC ---
Today's Communication/Plan
-
- HD permacath out today
- Lasix 80mg IV today
- Wean off O2 as tolerated
- Eliquis
- Downgrade to tele
- Diet: puree [email or web address]
- Dispo: PM&R recommends acute rehab; accepted to [facility] for Monday 05/28 off HD; PT/OT to see on 05/27
Assessment / Plan
Assessment / Plan
Robert An is a 79yo M with a pmh of afib, CKD IIIb on HD (/), HFrEF, T2DM, CAD (s/p CABG), and (s/p TAVR) who was recently discharged on 05/16, now readmitted with R-sided facial droop & dysarthria, found to have L frontoparietal CVA.
#L frontoparietal CVA
Patient presented on 05/20 with right-sided facial droop, dysarthria. Had been experiencing episodes of being 'out of it' with eye deviation intermittently over the 4 days post discharge on 05/16. Brain MRI (05/21): large nonhemorrhagic acute/subacute
infarct left frontoparietal lobe. MRA head/neck (05/21): No focal hemodynamically significant stenosis, aneurysm or occlusion. Echo (05/21): EF 25-30; compared to prior echo 05/11, no significant changes in TR (mod-severe); global hypokinesis. Carotid
US (05/22): 'R side - Diffuse bulky heavily calcified plaque is identified throughout the common carotid artery, carotid bulb and internal carotid artery. Greater than 70% internal carotid artery stenosis. L side - endart patent.' Patient denies
having missed any doses of home Eliquis. Stroke etiology ddx: cardioembolic/eliquis failure vs. atherosclerotic embolus (L-sided stroke, R-sided ICA stenosis) vs. occult malignancy -potential eliquis failure, potential atrial thrombus development
while eliquis temporarily held in prep for TAVR earlier this month.
- 80 mg atorvastatin daily
- Discussed w cards/neuro, will continue with eliquis for AC
- Follow up outpt with vascular surgery for R CEA candidacy
- Follow up in outpt w PCP for w/u of occult malignancy
- Neurology following, appreciate recs
- Cardiology following, appreciate recs
- PT/OT, PM&R following, rec'd for acute rehab
#CKD IIIb
Pt with CKD IIIb who was put onto HD last admission earlier this month in s/o persistently elevated Cr s/p aggressive diuresis & prep for TAVR. Has been continued on // HD schedule post-TAVR. Pt 05/24 expressed interest in getting pt off HD
to allow placement at [facility]. Ana oseguera nephrology - pt requires monitoring for few more days to determine ability to dc HD. Per nephrology 05/25, patient okay to dc HD and continue lasix.
- Remove HD permacath today
- 80mg IV lasix today
#Acute hypoxic insufficiency
CXR (05/20): 'Findings suggesting mild right lower lobe pneumonia. Progressed. Tiny bilateral pleural effusions. Progressed.' Had been started on cefepime and vancomycin due to c/f HAP. Per ID eval 05/21, very low suspicion for PNA. R-sided fluid
likely 2/2 known right sided effusion that was drained 3 times during prior admission by IR. Sputum culture unable to be evaluated. Patient with chronic smoker's cough. Pt put on 2L O2 NC from admission. On 05/22 after video swallow study, patient
with worsening dyspnea & requiring 6L O2 to sat 94%. Improved s/p bipap. Likely 2/2 aspiration during swallow study. CXR 05/22: 'Patchy opacities in the base, progressed compared to prior chest x-ray, suggestive of bibasilar pneumonia, aspiration or
subsegmental atelectasis.' Failed O2 wean on 05/23. CXR 05/24: Hazy bibasilar opacity, right greater than left, without significant change. Failed O2 wean on 05/24.
Today, 97% on 2L O2 NC. O2 requirement likely 2/2 deconditioning at this point.
- Attempt O2 NC wean, okay to discharge to rehab with O2 if needed
- Downgrade to tele
- Diet without thin liquids
- Speech following, appreciate recs
- Incentive spirometer
#C. difficile diarrhea, resolving
Patient with mild diarrhea; C. difficile positive 05/20. Patient received preop cefazolin on 05/11/2025 in advance of TAVR. Was discharged on 05/16 after a month-long stay in hospital. Diarrhea resolved.
- Vancomycin PO 125mg qid (05/22- ; s/p vanc enema 05/21-) for 10 day course (last day 05/30)
- ID following, appreciate recs
#Thrombocytopenia
#Leukopenia
Platelets in the 120s on prior admission earlier this month. On 05/23, trended down to 72; have remained low. WBC trended down to 4.4 on 05/24. RBC stable in pt chronic range. 4T score of 3-4 so low probability of HIT; more likely reactive
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 Less likely malignancy given pt lack of weight loss, night sweats, other sx. Pt has been on heparin since 05/21. Bleeding from HD catheter site and site of prior TAVR catheter in right groin, along
with bruising likely secondary to thrombocytopenia and heparin. Expect improvement status post transition to Eliquis and resolution of reactive thrombocytopenia.
Plt: 72>88>78>79; WBC 4.4>4.5
- Continue to monitor
#Positive MRSA
Patient nasal swab positive for MRSA on 05/20. Patient had just been discharged on 05/16 after a month-long hospital stay. Likely became colonized during this time. Patient has not had leukocytosis or fever this admission.
WBC 5.3. Patient afebrile (97.7). Likely colonization in the setting of his long stay without any active infection.
- Patient in isolation room
- Continue to monitor for any infectious symptoms
#Chronic
- T2DM - home lantus 14U, aspart 3U, sliding scale
- HFrEF (25-30% EF; s/p TAVR) - daily I&Os; daily weights (at dry weight currently 72kg); continue home metoprolol; cards following, appreciate recs; monitor R groin site
- Orthostatic hypotension - abdominal binder, compression stockings; home midodrine
- Tobacco use - start nicotine patch
- Gout - allopurinol (reduced to 100mg daily)
- Home meds - guaifenisin, B12; holding ambien
#Global
- DVT PPx: eliquis
- Code: Full
- Diet: puree [email or web address]
- Dispo: PM&R recommends acute rehab; accepted to [facility] for Monday 05/28 off HD; PT/OT to see on 05/27
Anticipated Discharge: 24 - 48 hours
Subjective/Interval History
-
Date of Service: May 25, 2025
Patient a bit more groggy this morning, but still oriented and alert. Able to answer questions. Says he feels like 'he has been hit by a bus.' However, denies any pain in his chest, any shortness of breath, pain in his right shoulder, any pain
elsewhere, any diarrhea. States that he is just fatigued. Per RN, patient has been having bleeding from his hemodialysis catheter site requiring multiple dressing changes overnight.
Objective Data
-
Labs:
Laboratory Results
05/25/25
04:35
WBC 4.5 L
Hgb 9.2 L
Hct 28.8 L
Plt Count 79 L
APTT 79.8 H
Sodium 133 L
Potassium 4.3
Chloride 104
Carbon Dioxide 27
BUN 23 H
Creatinine 1.6 H
Glucose 102 H
Calcium 8.8
Vital Signs:
Vital Signs
Temp Pulse Resp BP Pulse Ox
97.8 F 75 18 120/58 97
05/25/25 07:25 05/25/25 06:00 05/25/25 06:00 05/25/25 06:00 05/24/25 22:20
I&O
05/24/25 05/25/25 05/26/25
06:59 06:59 06:59
Intake Total 400 / 400
Output Total 150 / 150 325 / 325
Balance 250 / 250 -325 / -325
Review of Systems
-
Unable to obtain full review of systems at this time due to: Dementia
History Source: Patient
Constitutional: Reports Fatigue
Physical Exam
-
General: Conversant, Slurred Speech and Other (Appears elderly, frail)
HEENT: Normocephalic, Atraumatic, Anicteric and Oxygen (O2 NC)
Respiratory: Clear to Auscultation (Difficult to auscultate lung bases given patient positioning/weakness)
Cardiac: Regular Rhythm
GI: Nondistended
Musculoskeletal: No Edema
Skin: Warm, Dry, IV Access / Catheter Site (With dressings) and Other (Right groin TAVR catheterization site with dressing with moderate blood; catheter site without active bleeding, without erythema, swelling, purulent drainage; indurated area
immediately surrounding site but no concern for hematoma)
Neuro: Awake, Alert, Oriented, Slurred Speech and Facial Droop (Right-sided facial droop, some dysarthria)
Psych: Calm
Data Reviewed
-
Total Time Spent with Patient (in minutes): 15
Critical Care Time (in minutes): 35
Diagnostic Radiology: Report Reviewed by me
Labs: Labs Reviewed by me
--- NOTE | 2025-05-25 08:45 | W.PN.CARDCBS ---
Today's Communication / Plan
-
No changes in cardiac regimen
We will sign off
Cardiology follow-up arranged
Impression / Plan
-
.
PCP: Dr. Eason
Primary Paper Sales Representative: Dr. Sutton
Impression:
Acute left frontoparietal stroke
Recent admission for acute HFrEF, AJY leading to new HD and TAVR 04/18/2025 until 05/16/2025
Dysarthria and right-sided weakness concerning for possible left MCA territory CVA
C. difficile colitis
Chronic HFrEF, proBNP 18,500
ESRD on HD
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
Elevated Troponin
CAD
s/p CABG with NAVAS to LAD, free radial to ramus, SVG to OM and SVG to PDA 2001
s/p cardiac cath with patent NAVAS to LAD, widely patent free radial to ramus, 100% occluded SVG to OM and 50 to 55% mid stenosis of the SVG to the PDA to be stable 03/15/2025
ICM EF 31%, echo 03/12/2025
History of reduced ejection fraction heart failure with improved EF
carotid disease s/p left CEA in 2012
s/p Medtronic single chamber ICD 2017
Persistent Afib
Chronic Eliquis OAC
DM 2
Gout
Smoker, ongoing tobacco use
Echo 08/23/2019: EF 30-35%, global hypokinesis with inferolateral, inferior and basal septal akinesis, mild MR, sev pressure 47/28 mmHg
ECHO 12/03/22: EF 50%, mild LVH, stage III diastolic dysfunction, mild MR, severe with peak/mean gradients 54/28 mmHg, KAELYN 0.8 cm�, trace AR, mild TR, PAP 64 mmHg, mild dilation of aorta measuring 4.0 cm
Echo 10/09/2024: EF 35 to 40%, moderate eccentric MR, severe peak/mean 60/34 mmHg and KAELYN 0.8 cm sq, mild aortic insufficiency, moderate TR with PAP 64 mmHg
Echo 03/12/2025: EF 31%, global hypokinesis, moderate MR, severe peak/mean 41/22 mmHg and KAELYN 0.7 cm sq, mild aortic regurgitation, moderate to severe TR with PAP 72 mmHg
Echo 05/11/2025: s/p TAVR with #29 Donovan MARIA LUISA 3 aortic valve prosthesis with peak/mean 6/3 mmHg, mild MR, moderate to severe TR with PAP 60 mmHg
Echo 05/21/2025: EF 25-30%, global hypokinesis basal inferior akinesis, TAVR with mean aortic valve gradient of 6, mildly dilated left atrium, mild mitral regurgitation, mild TR, unchanged from prior
Carotid u/s 05/23/2025: RIGHT: Diffuse bulky heavily calcified plaque is identified throughout the common carotid artery, carotid bulb and internal carotid artery. Carotid velocity measurements are consistent with greater than 70% internal carotid
artery stenosis. Vertebral artery flow is antegrade.
LEFT: Left carotid endarterectomy is patent. Carotid velocity measurements are consistent with less than 50% internal carotid artery stenosis. Vertebral artery flow is antegrade.
Plan:
From a cardiac standpoint he remains stable.
Agree with reinitiation of Eliquis.
Would not make any changes in cardiac regimen at present, though in 6 months dose of apixaban should be reduced to 2.5 twice daily.
We will arrange for cardiac follow-up. Will sign off, please call if questions.
Progress Note - Paper Sales Representative
Subjective
Date of Service: May 25, 2025:
Complex 79-year-old man with lengthy hospital stay from 04/16/25 04/07/25 for refractory heart failure and JAY on CKD ultimately resulting in [facility] after the initiation of hemodialysis and 05/09/25. He underwent thoracentesis on the left of 1700 mL of
mehul fluid on the day of discharge. Readmitted on 05/20/25 after transient loss of consciousness while toileting with slurring of words and right facial droop, currently still with dysarthria. Found ultimately to have large left frontal parietal CVA
No new complaints. Heparin has been stopped, now on Eliquis
PMH: CKD which progressed to ESRD, acute on chronic HFrEF , with ischemic cardiomyopathy, EF 31% recurrent G.I. bleed requiring transfusion and APC with clips September & March 2025, CABG following IN 2001, Medtronic single-chamber ICD 2017, persistent
atrial fibrillation, diabetes, gout, ongoing tobacco use, left carotid endarterectomy, 29 mm Donovan Maria Luisa 3 transcatheter aortic valve May 2025, COPD, hypercholesterolemia, now with hypotension
Current meds: Allopurinol, atorvastatin 80 mg a day, B12, insulin, metoprolol ER 12.5 daily, Azopt, midodrine 2.5 3 times daily, Lantus, nicotine patch, pantoprazole 40 twice daily, apixaban 5 mg twice daily
120/58, pulse 75, respiratory rate 18, afebrile, weight is 74.6 kg, up 1.3 kg, exam during bathing, breath sounds very tubular bilaterally, regular rate and rhythm, soft systolic murmur, JVD not dramatically elevated, extremities more edema on left
than right
Chest x-ray today: cardiomegaly, effusions, ICD single-chamber, probable vascular congestion
Hemoglobin 9.2, platelets 79 BUN and creatinine are 23 and 1.6
Objective
Labs:
05/25/25 04:35
05/25/25 04:35
Labs
Hgb 9.2 g/dL (13.0-18.0) L 05/25/25 04:35
Hct 28.8 % (39.0-52.0) L 05/25/25 04:35
Plt Count 79 10^3/uL (130-400) L 05/25/25 04:35
APTT 79.8 Sec (23.4-35.0) H 05/25/25 04:35
Sodium 133 mmol/L (135-145) L 05/25/25 04:35
Potassium 4.3 mmol/L (3.5-5.1) 05/25/25 04:35
BUN 23 mg/dl (9-20) H 05/25/25 04:35
Creatinine 1.6 mg/dL (0.7-1.3) H 05/25/25 04:35
Glucose 102 mg/dl (70-99) H 05/25/25 04:35
Vital Signs and I&O:
Vital Signs
Temp Pulse Resp BP Pulse Ox
36.6 C 75 18 120/58 97
05/25/25 07:25 05/25/25 06:00 05/25/25 06:00 05/25/25 06:00 05/24/25 22:20
Vital Signs
Temp Pulse Resp BP Pulse Ox
36.6 C 75 18 120/58 97
05/25/25 07:25 05/25/25 06:00 05/25/25 06:00 05/25/25 06:00 05/24/25 22:20
Intake & Output
05/23/25 05/24/25 05/25/25 05/26/25
07:59 07:59 07:59 07:59
Intake Total 1698 / 1698 400 / 400
Output Total 50 / 50 275 / 275 200 / 200
Balance 1648 / 1648 125 / 125 -200 / -200
Physical Exam
Physical Exam
See above
--- NOTE | 2025-05-25 08:48 | W.PN.ID1 ---
Addendum entered and electronically signed by Josy Valenzuela MD 05/25/25 14:38:
I saw and evaluated the patient. I reviewed the resident�s note and agree with findings and plan as documented in the resident�s note.
# Primary C. diff diarrhea. mild
- Diarrhea resolved.
- Continue Vancomycin 125 mg po qid x 10 days through 05/30.
ID will sign off.
Original Note:
Date of Service
Date of Service: May 25, 2025
AFVSS
Today's Communication
vanco through 05/30/25
ID s/o
Assessment / Plan
# Primary C. diff diarrhea. mild
# Acute/subacute infarcts with dysphagia, dysarthria, facial droop
# No suspicion for pneumonia: no cough, exam without crackles, and I personally reviewed CXR
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
# hx HFrEF, ICD implant, CAD, Afib
# ESRD on HD
- Diarrhea resolved ; Continue Vancomycin qid for total 10 days(through 05/30/25)
# s/p Aspiration during VSE on 05/22. ; Suspect aspiration pneumonitis over pneumonia
- Avoid unnecessary antibiotics.
- noted new CxR from 05/22/25 ; monitor for any o2 need changes;
#Conditions affecting care:
TAVR
ESRD on HD
Paroxysmal atrial fibrillation
Chronic hyponatremia
COPD without exacerbation
Chronic heart failure reduced EF 30%
CAD/CABG x 4 (2001)
Medtronic single-chamber ICD, 2018
Carotid disease -s/p left CEA 2012.
Hypotension
DM 2
h/o GI bleed 03/2025 , known h/o AVMS
Chief Complaint
-: C-diff
Subjective / Review of Systems
Review of Systems: No Fever, No Cough, No Chest Pain, No Abdominal Pain, No Vomiting and No Diarrhea
Vital Signs / Physical Exam
Vital Signs
Vital Signs
Temp Pulse Resp BP Pulse Ox
97.8 F 75 18 120/58 97
05/25/25 07:25 05/25/25 06:00 05/25/25 06:00 05/25/25 06:00 05/24/25 22:20
Physical Exam
Constitutional: Comfortable and Chronically Ill
Cardiovascular: Regular Rate
Pulmonary: Clear, Non Labored and Other (On supplemental O2)
Neurological: Awake, Alert and Oriented
Psychological: Calm
Objective Data
Lab Data
Lab Results
05/25/25 04:35
05/25/25 04:35
APTT 79.8 Sec (23.4-35.0) H 05/25/25 04:35
Estimated Creat Clear 33 ml/min 05/25/25 04:35
Lactic Acid Cancelled 05/20/25 16:00
Total Bilirubin 1.3 mg/dl (0.2-1.3) 05/20/25 08:07
AST 40 U/L (17-59) 05/20/25 08:07
ALT 15 U/L (0-50) 05/20/25 08:07
Alkaline Phosphatase 138 U/L (38-126) H 05/20/25 08:07
Most recent labs reviewed.
Micro Results:
05/20/25 12:52 Blood Culture - Preliminary
Blood/Venous No Growth in 4 days- Final report to follow
05/20/25 12:35 Blood Culture - Preliminary
Blood/Venous No Growth in 4 days- Final report to follow
05/20/25 12:52 Salmonella/Shigella Culture - Final
Feces/Stool No Salmonella, Shigella, Aeromonas or Plesiomonas species
isolated.
Campylobacter Culture - Final
No Campylobacter species isolated.
Shiga Toxin Test - Final
No E. coli Shiga Toxin 1 or 2 detected.
Stool Leukocytes - Final
05/20/25 16:44 Respiratory Culture - Final
Sputum Gram Stain - Final
05/20/25 10:30 Urine Culture - Final
Urine NO GROWTH
05/20/25 16:44 Nasal Screen MRSA (PCR) - Final
Nose Staph aureus MRSA
05/20/25 12:52 C. difficile GDH Antigen & Toxins - Final
Feces/Stool Toxigenic C.difficile Positive
CXR 05/20/25: Findings suggesting mild right lower lobe pneumonia. Progressed.
Tiny bilateral pleural effusions. Progressed.
Mild cardiomegaly. Stable
CT Head W/o Iv Contrast 05/20/25:
No acute intracranial abnormality noted.
Findings suggesting small old infarcts in the posterior left frontal lobe and left occipital lobe.
Mild periventricular small vessel ischemic disease.
Mild atrophy
MA [place]; MA Neck With Contrast; MR Brain Without Contrast 05/21/25:
Large nonhemorrhagic acute/subacute infarct in the left frontoparietal lobe.
Additional scattered smaller sites of nonhemorrhagic acute/subacute infarcts throughout the bilateral cerebral and cerebellar hemispheres. Findings may reflect embolic etiology.
No focal hemodynamically significant stenosis, aneurysm or occlusion.
CR Chest Portable 05/22/25:
1. Patchy opacities in the base, progressed compared to prior chest x-ray, suggestive of bibasilar pneumonia, aspiration or subsegmental atelectasis
2. Mild interstitial prominence, suggestive of mild pulmonary vascular congestion.
3. Small bilateral pleural effusions may be present. Consider PA and lateral views when possible.
[2025-05-25] MEDS: ELIQUIS 5 MG PO ×2 (09:08→21:39)
[2025-05-25] MEDS: ZYLOPRIM 150 MG PO (09:09)
[2025-05-25] MEDS: TOPROL XL 12.5 MG PO (09:09)
[2025-05-25] MEDS: VITAMIN B-12 1000 MCG PO (09:09)
[2025-05-25] MEDS: PROTONIX 40 MG PO ×2 (09:09→21:39)
[2025-05-25] MEDS: LIPITOR 80 MG PO (09:10)
[2025-05-25] MEDS: LANTUS 0.14 UNITS SC (09:10)
[2025-05-25] MEDS: NICODERM TRANSDERMAL 14 MG TRANSDERM (09:10)
[2025-05-25] MEDS: AZOPT 1% OPHTHALMIC SUSPENSION 1 DROP BOTH EYES ×2 (09:10→21:40)
[2025-05-25] MEDS: NOVOLOG FLEXPEN-MODERATE RESISTANCE SC ×3 (09:11→16:58)
[2025-05-25] MEDS: NOVOLOG FLEXPEN 3 UNITS SC ×3 (09:11→17:07)
--- NOTE | 2025-05-25 10:00 | PTOTSP ---
Speech Therapy Follow-up:
To further assess the 5 subsets of speech including respiration, phonation, resonance, prosody, and articulation, the [place] Dysarthria Assessment Tool (N-ROS) was administered. Findings detailed below:
Observation of intelligibility during conversational speech:
- In conversation, pt intelligible with some difficulty 2/2 reduced vocal loudness, reduced articulatory precision, reduced speech rate.
Respiration:
- Pt observed with shallow breathing. Pt took 21 breaths in 60 second time frame (norm = 12-18)
Phonation:
- Pt presented with reduced vocal loudness, inconsistent ability to sustain volume, and inability to complete pitch glide 2/2 phonation breaks.
- MPT averaged at 4.16 seconds (norm for adult males is 15.0 - 62.3 seconds)
- Pt required max verbal curing to complete s/z ratio task. Pt's average ratio was 1.01 seconds.
Resonance:
- Difficult to assess due to reduced comprehension of task, although no nasal emissions appeared to be present
Prosody:
- Pt was unable to adequately vary stress and intonation
Articulation:
- Pt presented with slow rate of speech and short phrase length. AMR's were poor 3 repetitions of 'buttercup' in 5 seconds. SMR's were slow but regular Pt able to complete 2 repetitions of /puh/, /tuh/, /kuh/ in 5 seconds
Pt presents with moderate dysarthria as characterized by reductions in intelligibility, respiration, phonation, and articulation. Ongoing ST warranted.
Recommend:
1. Continued ST at acute care level and following d/c
--- NOTE | 2025-05-25 10:31 | W.PN.NEPH.PH ---
Today's Communication / Plan
-
IV Lasix 80 mg now
Continue to hold dialysis
Assessment/Plan
-
IMP:
TAVR
ESRD
Paroxysmal atrial fibrillation
Chronic hyponatremia
COPD without exacerbation
Chronic heart failure reduced EF 30%
CAD/CABG x 4 (2001)
Medtronic single-chamber ICD, 2017
Carotid disease -s/p left CEA 2012.
Hypotension
DM 2
h/o GI bleed 03/2025 , known h/o AVMS
Confusion
Old CVA
Plan:
continue midodrine
Now on Eliquis
no HD today
Chest x-ray noted small effusion with mild pulmonary edema= independently read
Antibiotics for pneumonia
Will give 80 mg IV Lasix now
Discussed with medical nurse
-
-
Date of Service: May 25, 2025
CC / HPI / ROS
-
Chief Complaint:
MS change
History of Present Illness:
Cr stable stable
BP stable
on vanco for C diff colitis
recent large CVA
Review of Systems:
no CP/SOB
Weights are slightly up
Labs
-
Labs:
WBC 4.5 10^3/uL (4.8-10.8) L 05/25/25 04:35
RBC 2.80 10^6/uL (4.70-6.10) L 05/25/25 04:35
Hgb 9.2 g/dL (13.0-18.0) L 05/25/25 04:35
Hct 28.8 % (39.0-52.0) L 05/25/25 04:35
Plt Count 79 10^3/uL (130-400) L 05/25/25 04:35
Sodium 133 mmol/L (135-145) L 05/25/25 04:35
Potassium 4.3 mmol/L (3.5-5.1) 05/25/25 04:35
Chloride 104 mmol/L (98-107) 05/25/25 04:35
Carbon Dioxide 27 mmol/L (22-30) 05/25/25 04:35
BUN 23 mg/dl (9-20) H 05/25/25 04:35
Creatinine 1.6 mg/dL (0.7-1.3) H 05/25/25 04:35
eGFR 43.56 05/25/25 04:35
Glucose 102 mg/dl (70-99) H 05/25/25 04:35
Calcium 8.8 mg/dl (8.4-10.2) 05/25/25 04:35
Phosphorus 2.9 mg/dl (2.5-4.5) 05/25/25 04:35
Jjp-I-Kzmdhgninlv Pept 6900 pg/ml 05/20/25 08:07
Albumin 3.1 g/dl (3.5-5.0) L 05/20/25 08:07
Physical Exam
-
Vital Signs:
Vital Signs
Temp Pulse Resp BP Pulse Ox
97.8 F 75 18 120/58 97
05/25/25 07:25 05/25/25 06:00 05/25/25 06:00 05/25/25 06:00 05/24/25 22:20
Cardiovascular:: Regular rate and rhythm
Respiratory:: Bilateral: Coarse
Lung Excursion:: Normal
Abdomen:: Nontender and Soft
Bowel Sounds:: Normal
Extremity Edema:: +1: Bilateral:
[2025-05-25] MEDS: LASIX 80 MG IV (11:42)
[2025-05-25] MEDS: ROBITUSSIN 200 MG PO (11:42)
[2025-05-25 11:59] LABS: Glucose - Point of Care 144 mg/dl (70-99)
--- NOTE | 2025-05-25 12:15 | CM ---
Following up on Patient. Medical Team as able to get back to TAISHA Page to say that he will be off dialysis and the permacathe will be removed today. Neli had wanted Von in the beginning so called the liaison who re-reviewed the clinical.
The Liaison called back to say that they want to have him watched over the weekend of dialysis, on IV Lasix, and with the permacathe removed, and will consider taking the patient as long as PT/OT evaluate the patient Wednesday.
TAISHA informed the other 2 [facility] of the latest as well as the who was really happy to hear that this is a possibility.
PLAN: Send to [facility] as long as he is stable on Wednesday.
--- NOTE | 2025-05-25 14:18 | PN.IRAD.UPD ---
Update Note - IRAD
- -
patient came to department for right sided HD tunneled removal. cleaned and prepped patient, removed catheter with no complaints. dressed site with quikclot and primapore. AP
--- NOTE | 2025-05-25 15:51 | PTCARENOTE ---
AAOx3 this am NIHSS remains a 3 today. GCS 15. 100% V-paced on tele, tubigrib stockings on this am. IV Heparin gtt discontinued and po Eliquis given - [facility] HD cath dressing was shadowed bloody but intact- sent to IRAD today for removal- returned
dressing CDI to [facility]. IV Lasix given as ordered- 100ml urine output so far today. Intake is 200 on IDDS4 w Nector liquids. No stool this shift- Firvanq given as ordered, PRN Robitussin given x1 this shift for occasional coughing. Unable to bring
up fully into mouth- retrieves with buffy- educated on use. Report to Grace - transporting to [id number].
--- NOTE | 2025-05-25 16:30 | PTCARENOTE ---
Addendum entered by Valencia Jj RN 05/25/25 18:31:
Head to toe assessment completed, NIH assessed.
Original Note:
Patient received from IMU. Oriented to unit, had a bowel movement and was cleaned up. Patient is pleasant and resting comfortably.
[2025-05-25 16:32] LABS: Glucose - Point of Care 148 mg/dl (70-99)
[2025-05-25 19:14] LABS: Folate 13.4 ng/ml (2.76-20); Vitamin B12 957 pg/ml (239-931)
[2025-05-25 21:15] LABS: Glucose - Point of Care 158 mg/dl (70-99)
[2025-05-25] MEDS: REMOVE NICOTINE PATCH 1 PATCH REMOVE (21:48)
[2025-05-26] VITALS (7 sets, daily range): BP systolic 96–132; BP diastolic 44–59; PULSE 77; BMI 27.1
[2025-05-26] MEDS: FIRVANQ 125 MG PO ×4 (05:43→23:12)
[2025-05-26 07:29] LABS: Glucose - Point of Care 110 mg/dl (70-99)
--- NOTE | 2025-05-26 07:45 | W.PN.HOSP.TC ---
Today's Communication/Plan
-
- T/b with nephrology re: standing lasix after stopping HD yesterday
- Continue eliquis, statin, midodrine, metoprolol
- Last day PO vanc 05/30
- Attempt to wean O2
- Acapella pulm toilet
- [facility] on Wednesday
Assessment / Plan
Assessment / Plan
Robert An is a 79yo M with a pmh of afib, CKD IIIb on HD (/), HFrEF, T2DM, CAD (s/p CABG), and (s/p TAVR) who was recently discharged on 05/16, now readmitted with R-sided facial droop & dysarthria, found to have L frontoparietal CVA,
now monitoring off HD.
#L frontoparietal CVA
Patient presented on 05/20 with right-sided facial droop, dysarthria. Had been experiencing episodes of being 'out of it' with eye deviation intermittently over the 4 days post discharge on 05/16. Brain MRI (05/21): large nonhemorrhagic acute/subacute
infarct left frontoparietal lobe. MRA head/neck (05/21): No focal hemodynamically significant stenosis, aneurysm or occlusion. Echo (05/21): EF 25-30; compared to prior echo 05/11, no significant changes in TR (mod-severe); global hypokinesis. Carotid
US (05/22): 'R side - Diffuse bulky heavily calcified plaque is identified throughout the common carotid artery, carotid bulb and internal carotid artery. Greater than 70% internal carotid artery stenosis. L side - endart patent.' Patient denies
having missed any doses of home Eliquis. Stroke etiology ddx: cardioembolic/eliquis failure vs. atherosclerotic embolus (L-sided stroke, R-sided ICA stenosis) vs. occult malignancy -potential eliquis failure, potential atrial thrombus development
while eliquis temporarily held in prep for TAVR earlier this month.
- 80 mg atorvastatin daily
- Eliquis 5mg bid, per cards/neuro
- PT/OT, PM&R following, rec'd for acute rehab
- Follow up outpt with vascular surgery for R CEA candidacy
- Follow up in outpt w PCP for w/u of occult malignancy
- Neurology following, appreciate recs
- Cardiology following, appreciate recs
#CKD IIIb
Pt with CKD IIIb who was put onto HD last admission earlier this month in s/o persistently elevated Cr s/p aggressive diuresis & prep for TAVR. Has been continued on // HD schedule post-TAVR. Pt 05/24 expressed interest in getting pt off HD
to allow placement at [facility]. Ana oseguera nephrology - pt requires monitoring for few more days to determine ability to dc HD. Per nephrology 05/25, patient okay to dc HD and continue lasix. Permacath removed on 05/25. S/p 80mg IV lasix.
Voided 325ml 05/25, 400ml 05/26. Cr: 1.6>1.6>2.0
- Restart lasix regimen off of HD, per renal
#Acute hypoxic insufficiency
CXR (05/20): 'Findings suggesting mild right lower lobe pneumonia. Progressed. Tiny bilateral pleural effusions. Progressed.' Had been started on cefepime and vancomycin due to c/f HAP. Per ID eval 05/21, very low suspicion for PNA. R-sided fluid
likely 2/2 known right sided effusion that was drained 3 times during prior admission by IR. Sputum culture unable to be evaluated. Patient with chronic smoker's cough. Pt put on 2L O2 NC from admission. On 05/22 after video swallow study, patient
with worsening dyspnea & requiring 6L O2 to sat 94%. Improved s/p bipap. Likely 2/2 aspiration during swallow study. CXR 05/22: 'Patchy opacities in the base, progressed compared to prior chest x-ray, suggestive of bibasilar pneumonia, aspiration or
subsegmental atelectasis.' Failed O2 wean on 05/23. CXR 05/24: Hazy bibasilar opacity, right greater than left, without significant change. Failed O2 wean on 05/24.
Today, 96% on 2L O2 NC. Likely 2/2 deconditioning and will improve s/p rehab.
- Attempt O2 NC wean, okay to discharge to rehab with O2 if needed
- Acapella for pulm toilet
- Diet without thin liquids to avoid aspiration
- Incentive spirometer
#C. difficile diarrhea, resolved
Patient with mild diarrhea; C. difficile positive 05/20. Patient received preop cefazolin on 05/11/2025 in advance of TAVR. Was discharged on 05/16 after a month-long stay in hospital. Diarrhea resolved.
- Vancomycin PO 125mg qid (05/22- ; s/p vanc enema 05/21-) for 10 day course (last day 05/30)
- ID following, appreciate recs
#Thrombocytopenia
#Leukopenia
Platelets in the 120s on prior admission earlier this month. On 05/23, trended down to 72; have remained low. WBC trended down to 4.4 on 05/24. RBC stable in pt chronic range. 4T score of 3-4 so low probability of HIT; more likely reactive
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 Less likely malignancy given pt lack of weight loss, night sweats, other sx. Pt has been on heparin since 05/21. Bleeding from HD catheter site and site of prior TAVR catheter in right groin, along
with bruising likely secondary to thrombocytopenia and heparin. Now improving s/p transition to Eliquis and resolution of reactive thrombocytopenia.
Plt: 72>88>78>79>100; WBC 4.4>4.5>4.7
- Continue to monitor
#Positive MRSA
Patient nasal swab positive for MRSA on 05/20. Patient had just been discharged on 05/16 after a month-long hospital stay. Likely became colonized during this time. Patient has not had leukocytosis or fever this admission.
WBC 5.3. Patient afebrile (97.7). Likely colonization in the setting of his long stay without any active infection.
- Patient in isolation room
- Continue to monitor for any infectious symptoms
#Chronic
- T2DM - home lantus 14U, aspart 3U, sliding scale
- HFrEF (25-30% EF; s/p TAVR) - daily I&Os; daily weights (at dry weight currently 72kg); continue home metoprolol; cards following, appreciate recs; monitor R groin site
- Orthostatic hypotension - abdominal binder, compression stockings; home midodrine
- Tobacco use - start nicotine patch
- Gout - allopurinol (reduced to 100mg daily)
- Home meds - guaifenisin, B12; holding ambien
#Global
- DVT PPx: eliquis
- Code: Full
- Diet: puree [email or web address]
- Dispo: PM&R recommends acute rehab; accepted to [facility] for Monday 05/28 off HD; PT/OT to see on 05/27
Anticipated Discharge: 24 - 48 hours
Subjective/Interval History
-
Date of Service: May 26, 2025
Pt in good spirits, more lively today. Happy about stopping HD. Understands puree diet to prevent aspiration. Oriented, talkative. Sitting up eating bfast. Understands plan for [facility] on Wednesday. Denies SOB, CP, diarrhea.
Objective Data
-
Labs:
Laboratory Results
05/26/25
07:09
WBC Pending
Hgb Pending
Hct Pending
Plt Count Pending
Sodium Pending
Potassium Pending
Chloride Pending
Carbon Dioxide Pending
BUN Pending
Creatinine Pending
Glucose Pending
Calcium Pending
Vital Signs:
Vital Signs
Temp Pulse Resp BP Pulse Ox
97.5 F 76 20 110/44 95
05/26/25 03:00 05/26/25 03:00 05/26/25 03:00 05/26/25 03:00 05/26/25 03:22
I&O
05/25/25 05/26/25 05/27/25
06:59 06:59 06:59
Intake Total 200 / 200
Output Total 325 / 325 400 / 400
Balance -325 / -325 -200 / -200
Review of Systems
-
History Source: Patient
All other systems: Reviewed and negative
Physical Exam
-
General: Well Nourished, Conversant and Slurred Speech
HEENT: Normocephalic, Atraumatic, Anicteric and Oxygen (O2 NC)
Respiratory: Clear to Auscultation
Cardiac: Regular Rhythm
GI: Nondistended
Musculoskeletal: No Edema
Skin: Warm, Dry and Other (bandage on R side site of HD cath removal )
Neuro: Awake, Alert, Oriented, Slurred Speech and Facial Droop (Right-sided facial droop, some dysarthria)
Psych: Calm
Data Reviewed
-
Total Time Spent with Patient (in minutes): 15
Critical Care Time (in minutes): 30
Labs: Labs Reviewed by me
[2025-05-26 08:21] LABS: Blood Urea Nitrogen 32 mg/dl (9-20); Calcium 8.9 mg/dl (8.4-10.2); Carbon Dioxide 32 mmol/L (22-30); Chloride 103 mmol/L (98-107); Estimated Creatinine Clearance 26 ml/min; Glucose 111 mg/dl (70-99); Magnesium 1.5 mg/dl (1.6-2.3); Potassium 5.0 mmol/L (3.5-5.1); Sodium 136 mmol/L (135-145); eGFR 33.32
[2025-05-26 08:34] LABS: Hematocrit 26.9 % (39.0-52.0); Hemoglobin 8.4 g/dL (13.0-18.0); Mean Corp Hgb Conc. 31.2 g/dL (33.0-37.0); Mean Corpuscular Volume 103.9 fL (80.0-94.0); Platelet Count 100 10^3/uL (130-400); Red Cell Dist. Width 16.3 % (11.5-14.5)
[2025-05-26] MEDS: NOVOLOG FLEXPEN 3 UNITS SC ×3 (08:43→18:02)
[2025-05-26] MEDS: NOVOLOG FLEXPEN-MODERATE RESISTANCE SC ×2 (08:43→18:03)
[2025-05-26] MEDS: AZOPT 1% OPHTHALMIC SUSPENSION 1 DROP BOTH EYES ×2 (08:44→19:38)
[2025-05-26] MEDS: VITAMIN B-12 1000 MCG PO (08:45)
[2025-05-26] MEDS: LANTUS 0.14 UNITS SC (08:45)
[2025-05-26] MEDS: ZYLOPRIM 100 MG PO (08:47)
[2025-05-26] MEDS: NICODERM TRANSDERMAL 14 MG TRANSDERM (08:48)
[2025-05-26] MEDS: PROTONIX 40 MG PO ×2 (08:49→19:38)
[2025-05-26] MEDS: LIPITOR 80 MG PO (08:49)
[2025-05-26] MEDS: ELIQUIS 5 MG PO ×2 (08:50→19:37)
[2025-05-26] MEDS: TOPROL XL PO (08:50)
[2025-05-26] MEDS: LOKELMA 5 GRAM PO (12:15)
[2025-05-26 12:34] LABS: Glucose - Point of Care 202 mg/dl (70-99)
[2025-05-26] MEDS: NOVOLOG FLEXPEN-MODERATE RESISTANCE 3 UNITS SC (13:15)
--- NOTE | 2025-05-26 15:55 | W.PN.NEPH.PH ---
Today's Communication / Plan
-
Hold diuretics
Assessment/Plan
-
IMP:
TAVR
ESRD
Paroxysmal atrial fibrillation
Chronic hyponatremia
COPD without exacerbation
Chronic heart failure reduced EF 30%
CAD/CABG x 4 (2001)
Medtronic single-chamber ICD, 2017
Carotid disease -s/p left CEA 2012.
Hypotension
DM 2
h/o GI bleed 03/2025 , known h/o AVMS
Confusion
Old CVA
Plan:
continue midodrine
Chest x-ray noted small effusion with mild pulmonary edema= independently read
Antibiotics for pneumonia
Creatinine increased to 2 status post 80 of IV Lasix
I will hold diuretics through the weekend as his weights are stable
Daily labs
Status post PermCath removal 05/25
-
-
Date of Service: May 26, 2025
CC / HPI / ROS
-
Chief Complaint:
MS change
History of Present Illness:
Cr stable stable
BP stable
on vanco for C diff colitis
recent large CVA
Review of Systems:
no CP/SOB
Weights stable
Labs
-
Labs:
WBC 4.7 10^3/uL (4.8-10.8) L 05/26/25 07:09
RBC 2.59 10^6/uL (4.70-6.10) L 05/26/25 07:09
Hgb 8.4 g/dL (13.0-18.0) L 05/26/25 07:09
Hct 26.9 % (39.0-52.0) L 05/26/25 07:09
Plt Count 100 10^3/uL (130-400) L D 05/26/25 07:09
Sodium 136 mmol/L (135-145) 05/26/25 07:09
Potassium 5.0 mmol/L (3.5-5.1) 05/26/25 07:09
Chloride 103 mmol/L (98-107) 05/26/25 07:09
Carbon Dioxide 32 mmol/L (22-30) H 05/26/25 07:09
BUN 32 mg/dl (9-20) H 05/26/25 07:09
Creatinine 2.0 mg/dL (0.7-1.3) H 05/26/25 07:09
eGFR 33.32 05/26/25 07:09
Glucose 111 mg/dl (70-99) H 05/26/25 07:09
Calcium 8.9 mg/dl (8.4-10.2) 05/26/25 07:09
Phosphorus 3.1 mg/dl (2.5-4.5) 05/26/25 07:09
Dqa-V-Ccblmlzjrwd Pept 6900 pg/ml 05/20/25 08:07
Albumin 3.1 g/dl (3.5-5.0) L 05/20/25 08:07
Physical Exam
-
Vital Signs:
Vital Signs
Temp Pulse Resp BP Pulse Ox
97.4 F 77 16 118/58 95
05/26/25 11:43 05/26/25 11:43 05/26/25 11:43 05/26/25 11:43 05/26/25 12:04
Cardiovascular:: Regular rate and rhythm
Respiratory:: Bilateral: Coarse
Lung Excursion:: Normal
Abdomen:: Nontender and Soft
Bowel Sounds:: Normal
Extremity Edema:: +1: Bilateral:
[2025-05-26 16:44] LABS: Glucose - Point of Care 146 mg/dl (70-99)
[2025-05-26 22:01] LABS: Glucose - Point of Care 185 mg/dl (70-99)
[2025-05-26] MEDS: REMOVE NICOTINE PATCH 1 PATCH REMOVE (23:12)
[2025-05-27] VITALS (8 sets, daily range): BP systolic 116–141; BP diastolic 52–60; PULSE 71–75; O2SAT 89–90; BMI 27.0
[2025-05-27] MEDS: FIRVANQ 125 MG PO ×4 (05:48→22:52)
[2025-05-27 07:48] LABS: Glucose - Point of Care 110 mg/dl (70-99)
[2025-05-27] MEDS: NICODERM TRANSDERMAL 14 MG TRANSDERM (08:01)
[2025-05-27] MEDS: AZOPT 1% OPHTHALMIC SUSPENSION 1 DROP BOTH EYES ×2 (08:02→19:59)
[2025-05-27] MEDS: LANTUS 0.14 UNITS SC (08:04)
[2025-05-27] MEDS: NOVOLOG FLEXPEN-MODERATE RESISTANCE SC (08:04)
[2025-05-27] MEDS: PROTONIX 40 MG PO ×2 (08:05→19:59)
[2025-05-27] MEDS: ZYLOPRIM 100 MG PO (08:05)
[2025-05-27] MEDS: VITAMIN B-12 1000 MCG PO (08:05)
[2025-05-27] MEDS: ELIQUIS 5 MG PO ×2 (08:05→19:59)
[2025-05-27] MEDS: TOPROL XL 12.5 MG PO (08:05)
[2025-05-27] MEDS: LIPITOR 80 MG PO (08:05)
[2025-05-27] MEDS: NOVOLOG FLEXPEN 3 UNITS SC ×3 (08:06→17:05)
--- NOTE | 2025-05-27 08:08 | W.PN.HOSP.TC ---
Today's Communication/Plan
-
- 80 mg atorvastatin daily
- Eliquis 5mg bid, per cards/neuro
- Follow up outpt with vascular surgery for R CEA candidacy
- PT today
- SLT today
- Replete Mg
- [facility] on Wednesday
Assessment / Plan
Assessment / Plan
Robert An is a 79yo M with a pmh of afib, CKD IIIb on HD (/), HFrEF, T2DM, CAD (s/p CABG), and (s/p TAVR) who was recently discharged on 05/16, now readmitted with R-sided facial droop & dysarthria, found to have L frontoparietal CVA,
now monitoring off HD.
#L frontoparietal CVA
Patient presented on 05/20 with right-sided facial droop, dysarthria. Had been experiencing episodes of being 'out of it' with eye deviation intermittently over the 4 days post discharge on 05/16. Brain MRI (05/21): large nonhemorrhagic acute/subacute
infarct left frontoparietal lobe. MRA head/neck (05/21): No focal hemodynamically significant stenosis, aneurysm or occlusion. Echo (05/21): EF 25-30; compared to prior echo 05/11, no significant changes in TR (mod-severe); global hypokinesis. Carotid
US (05/22): 'R side - Diffuse bulky heavily calcified plaque is identified throughout the common carotid artery, carotid bulb and internal carotid artery. Greater than 70% internal carotid artery stenosis. L side - endart patent.' Patient denies
having missed any doses of home Eliquis. Stroke etiology ddx: cardioembolic/eliquis failure vs. atherosclerotic embolus (L-sided stroke, R-sided ICA stenosis) vs. occult malignancy - potential eliquis failure, potential atrial thrombus development
while eliquis temporarily held in prep for TAVR earlier this month.
- 80 mg atorvastatin daily
- Eliquis 5mg bid, per cards/neuro
- PT/OT, PM&R following, rec'd for acute rehab
- Follow up outpt with vascular surgery for R CEA candidacy
- Neurology following, appreciate recs
- Cardiology following, appreciate recs
#CKD IIIb
Pt with CKD IIIb who was put onto HD last admission earlier this month in s/o persistently elevated Cr s/p aggressive diuresis & prep for TAVR. Has been continued on // HD schedule post-TAVR. Pt 05/24 expressed interest in getting pt off HD
to allow placement at [facility]. Ana oseguera nephrology - pt requires monitoring for few more days to determine ability to dc HD. Per nephrology 05/25, patient okay to dc HD and continue lasix. Permacath removed on 05/25. S/p 80mg IV lasix.
Voided 325ml 05/25, 400ml 05/26, 200ml 05/27. Cr: 1.6>1.6>2.0>1.9
- Holding on restarting lasix regimen off of HD through the weekend
- Nephrology following, appreciate recs for discharge diuresis plan
#Acute hypoxic insufficiency
CXR (05/20): 'Findings suggesting mild right lower lobe pneumonia. Progressed. Tiny bilateral pleural effusions. Progressed.' Had been started on cefepime and vancomycin due to c/f HAP. Per ID eval 05/21, very low suspicion for PNA. R-sided fluid
likely 2/2 known right sided effusion that was drained 3 times during prior admission by IR. Sputum culture unable to be evaluated. Patient with chronic smoker's cough. Pt put on 2L O2 NC from admission. On 05/22 after video swallow study, patient
with worsening dyspnea & requiring 6L O2 to sat 94%. Improved s/p bipap. Likely 2/2 aspiration during swallow study. CXR 05/22: 'Patchy opacities in the base, progressed compared to prior chest x-ray, suggestive of bibasilar pneumonia, aspiration or
subsegmental atelectasis.' Failed O2 wean on 05/23. CXR 05/24: Hazy bibasilar opacity, right greater than left, without significant change. Failed O2 wean on 05/24.
Today, 96% on RA.
- Acapella for pulm toilet
- Diet without thin liquids to avoid aspiration
- Incentive spirometer
#C. difficile diarrhea, resolved
Patient with mild diarrhea; C. difficile positive 05/20. Patient received preop cefazolin on 05/11/2025 in advance of TAVR. Was discharged on 05/16 after a month-long stay in hospital. Diarrhea resolved.
- Vancomycin PO 125mg qid (05/22- ; s/p vanc enema 05/21-) for 10 day course (last day 05/30)
- ID following, appreciate recs
#Thrombocytopenia
#Leukopenia
Platelets in the 120s on prior admission earlier this month. On 05/23, trended down to 72; have remained low. WBC trended down to 4.4 on 05/24. RBC stable in pt chronic range. 4T score of 3-4 so low probability of HIT; more likely reactive
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 Less likely malignancy given pt lack of weight loss, night sweats, other sx. Pt has been on heparin since 05/21. Bleeding from HD catheter site and site of prior TAVR catheter in right groin, along
with bruising likely secondary to thrombocytopenia and heparin. Now improving s/p transition to Eliquis and resolution of reactive thrombocytopenia.
Plt: 72>88>78>79>100>97; WBC 4.4>4.5>4.7>4.2
- Continue to monitor
#Positive MRSA
Patient nasal swab positive for MRSA on 05/20. Patient had just been discharged on 05/16 after a month-long hospital stay. Likely became colonized during this time. Patient has not had leukocytosis or fever this admission.
WBC 5.3. Patient afebrile (97.7). Likely colonization in the setting of his long stay without any active infection.
- Patient in isolation room
- Continue to monitor for any infectious symptoms
#Chronic
- T2DM - home lantus 14U, aspart 3U, sliding scale
- HFrEF (25-30% EF; s/p TAVR) - daily I&Os; daily weights (at dry weight currently 72kg); continue home metoprolol; cards following, appreciate recs; monitor R groin site
- Orthostatic hypotension - abdominal binder, compression stockings; home midodrine
- Tobacco use - start nicotine patch
- Gout - allopurinol (reduced to 100mg daily)
- Home meds - guaifenisin, B12; holding ambien
#Global
- DVT PPx: eliquis
- Code: Full
- Diet: puree [email or web address]; SLT re-eval
- Dispo: PM&R recommends acute rehab; accepted to [facility] for Monday 05/28 off HD; PT/OT to see on 05/27
Anticipated Discharge: Within 24 hours
Subjective/Interval History
-
Date of Service: May 27, 2025
Patient sitting up in bed this morning, getting ready to eat breakfast. Requesting if he can eat more solid foods rather than the pur�ed diet. Denies any shortness of breath. No longer has nasal cannula in place. Denies any other pain,
discomfort, nausea/vomiting. No diarrhea. Understands plan for PT today and [facility] tomorrow.
Objective Data
-
Labs:
Laboratory Results
05/27/25
06:00
WBC Pending
Hgb Pending
Hct Pending
Plt Count Pending
Sodium Pending
Potassium Pending
Chloride Pending
Carbon Dioxide Pending
BUN Pending
Creatinine Pending
Glucose Pending
Calcium Pending
Vital Signs:
Vital Signs
Temp Pulse Resp BP Pulse Ox
98.2 F 77 18 121/53 98
05/27/25 03:00 05/27/25 03:00 05/27/25 03:00 05/27/25 03:00 05/27/25 03:00
I&O
05/26/25 05/27/25 05/28/25
06:59 06:59 06:59
Intake Total 200 / 200 960 / 960
Output Total 400 / 400 200 / 200
Balance -200 / -200 760 / 760
Review of Systems
-
History Source: Patient
All other systems: Reviewed and negative
Physical Exam
-
General: Well Nourished and Conversant
HEENT: Normocephalic, Atraumatic and Anicteric; Negative Oxygen
Respiratory: Clear to Auscultation
Cardiac: Regular Rhythm
GI: Nondistended
Musculoskeletal: No Edema
Skin: Warm, Dry and Other (bandage on R side site of HD cath removal )
Neuro: Awake, Alert, Oriented, Slurred Speech and Facial Droop (Right-sided facial droop, some dysarthria)
Psych: Calm
Data Reviewed
-
Total Time Spent with Patient (in minutes): 10
Critical Care Time (in minutes): 30
Labs: Labs Reviewed by me
[2025-05-27 08:59] LABS: Hematocrit 27.5 % (39.0-52.0); Hemoglobin 8.8 g/dL (13.0-18.0); Mean Corp Hgb Conc. 32.0 g/dL (33.0-37.0); Mean Corpuscular Volume 103.8 fL (80.0-94.0); Platelet Count 97 10^3/uL (130-400); Red Cell Dist. Width 16.2 % (11.5-14.5)
[2025-05-27 09:25] LABS: Blood Urea Nitrogen 37 mg/dl (9-20); Calcium 9.3 mg/dl (8.4-10.2); Carbon Dioxide 32 mmol/L (22-30); Chloride 104 mmol/L (98-107); Estimated Creatinine Clearance 27 ml/min; Glucose 108 mg/dl (70-99); Magnesium 1.5 mg/dl (1.6-2.3); Potassium 4.9 mmol/L (3.5-5.1); Sodium 135 mmol/L (135-145); eGFR 35.44
[2025-05-27] MEDS: MAGNESIUM SULFATE 100 IV (11:28)
[2025-05-27 12:12] LABS: Glucose - Point of Care 215 mg/dl (70-99)
[2025-05-27] MEDS: NOVOLOG FLEXPEN-MODERATE RESISTANCE 3 UNITS SC (13:05)
--- NOTE | 2025-05-27 14:53 | W.PN.NEPH.PH ---
Today's Communication / Plan
-
Discharge on 40 mg torsemide daily
Assessment/Plan
-
IMP:
TAVR
ESRD
Paroxysmal atrial fibrillation
Chronic hyponatremia
COPD without exacerbation
Chronic heart failure reduced EF 30%
CAD/CABG x 4 (2001)
[employer]tronic single-chamber ICD, 2017
Carotid disease -s/p left CEA 2012.
Hypotension
DM 2
h/o GI bleed 03/2025 , known h/o AVMS
Confusion
Old CVA
Plan:
continue midodrine
Chest x-ray noted small effusion with mild pulmonary edema= independently read
Antibiotics for pneumonia
Creatinine increased to 2 status post 80 of IV Lasix
I will hold diuretics through the weekend as his weights are stable
Daily labs
Status post PermCath removal 05/25
Creatinine stable 1.9
Would discharge him on 40 mg torsemide daily
-
-
Date of Service: May 27, 2025
CC / HPI / ROS
-
Chief Complaint:
MS change
History of Present Illness:
Cr stable stable
BP stable
on vanco for C diff colitis
recent large CVA
Review of Systems:
no CP/SOB
Weights stable
Labs
-
Labs:
WBC 4.2 10^3/uL (4.8-10.8) L 05/27/25 08:19
RBC 2.65 10^6/uL (4.70-6.10) L 05/27/25 08:19
Hgb 8.8 g/dL (13.0-18.0) L 05/27/25 08:19
Hct 27.5 % (39.0-52.0) L 05/27/25 08:19
Plt Count 97 10^3/uL (130-400) L 05/27/25 08:19
Sodium 135 mmol/L (135-145) 05/27/25 08:19
Potassium 4.9 mmol/L (3.5-5.1) 05/27/25 08:19
Chloride 104 mmol/L (98-107) 05/27/25 08:19
Carbon Dioxide 32 mmol/L (22-30) H 05/27/25 08:19
BUN 37 mg/dl (9-20) H 05/27/25 08:19
Creatinine 1.9 mg/dL (0.7-1.3) H 05/27/25 08:19
eGFR 35.44 05/27/25 08:19
Glucose 108 mg/dl (70-99) H 05/27/25 08:19
Calcium 9.3 mg/dl (8.4-10.2) 05/27/25 08:19
Phosphorus 3.1 mg/dl (2.5-4.5) 05/27/25 08:19
Jxv-H-Aeelszkvpxq Pept 6900 pg/ml 05/20/25 08:07
Albumin 3.1 g/dl (3.5-5.0) L 05/20/25 08:07
Physical Exam
-
Vital Signs:
Vital Signs
Temp Pulse Resp BP Pulse Ox
98.3 F 76 16 116/52 92
05/27/25 11:57 05/27/25 11:57 05/27/25 11:57 05/27/25 11:57 05/27/25 11:57
Cardiovascular:: Regular rate and rhythm
Respiratory:: Bilateral: Coarse
Lung Excursion:: Normal
Abdomen:: Nontender and Soft
Bowel Sounds:: Normal
Extremity Edema:: +1: Bilateral:
[2025-05-27 16:43] LABS: Glucose - Point of Care 181 mg/dl (70-99)
--- NOTE | 2025-05-27 16:47 | PTCARENOTE ---
Patient was 89% on room air- back to oxygen at 1 LPM -95% . Seen by speech and resident up to talk to . Patient had 2 mod soft bms today. Appetite is good , needs reminders to eat slow . visiting at present
[2025-05-27] MEDS: NOVOLOG FLEXPEN-MODERATE RESISTANCE 1 UNITS SC (17:05)
[2025-05-27] MEDS: ROBITUSSIN 200 MG PO (17:39)
[2025-05-27 21:21] LABS: Glucose - Point of Care 168 mg/dl (70-99)
[2025-05-27] MEDS: TYLENOL 650 MG PO (22:47)
[2025-05-27] MEDS: REMOVE NICOTINE PATCH 1 PATCH REMOVE (22:47)
[2025-05-28] VITALS (7 sets, daily range): BP systolic 113–131; BP diastolic 48–104; PULSE 75–76; O2SAT 95; BMI 27.3
--- NOTE | 2025-05-28 00:08 | PTCARENOTE ---
Pt had episode of maria l red bloody BM. DIE CUTTER notified. Pt Eliquis placed on hold. Continuing to monitor stools.
[2025-05-28] MEDS: FIRVANQ 125 MG PO ×4 (05:27→23:11)
--- NOTE | 2025-05-28 07:00 | W.PN.HOSP.TC ---
Addendum entered and electronically signed by Julio Phillips MD 05/28/25 21:53:
Attending Addendum-
I saw and evaluated the patient. I reviewed the resident�s note and agree with findings and plan as documented in the resident�s note. Sub: Called by nursing re multiple bloody bm's and hypoxia. Patient denies blood in stools. Complains of fatigue
and SOB. Denies cough diarrhea fevers. Full 12 point ROS reviewed and negative except as documented Exam: Vitals reviewed in chart GEN-NAD heart RRR lungs clear abd osft LE no edema Neruo MS 01/08 AAO x 2-3
Plan:
# Acute GI bleed
- check stat CTA
- hold on GI c/s for now
- monitor for SPRING
- h and h q 6 hours
- tx for HB < 7
# Acute L frontoparietal CVA
- cont atorvastatin daily
- Eliquis on hold due to GI bleed
- appreciate cards/neuro input
- PT/OT, PM&R following, rec'd for acute rehab
# Right Carotid stenosis
- Follow up outpt with vascular surgery for R CEA candidacy
#CKD IIIb
-Has been continued on // HD schedule post-TAVR. Pt 05/24 expressed interest in getting pt off HD to allow placement at [facility].
-Per nephrology 05/25, patient okay to dc HD and continue lasix. Permacath removed on 05/25
-start torsemide
-f/u BMP in am
#Acute hypoxic insufficiency
- increased o2 requirement
- restart torsemide
- check cxr
#C. difficile
- C. difficile positive 05/20. Patient received preop cefazolin on 05/11/2025 in advance of TAVR. Was discharged on 05/16 after a month-long stay in hospital. Diarrhea resolved.
- cont Vancomycin PO ->05/30 (10 days)
- s/p vanc enema 05/21
- ID following, appreciate recs
#Thrombocytopenia
#Leukopenia
- Continue to monitor
#Positive MRSA
- Patient in isolation room
- Continue to monitor for any infectious symptoms
# T2DM - home lantus 14U, aspart 3U, sliding scale
# HFrEF (25-30% EF; s/p TAVR) - daily I&Os; daily weights (at dry weight currently 72kg); continue home metoprolol; cards following, appreciate recs; monitor R groin site start torseminde
# Orthostatic hypotension - abdominal binder, compression stockings; home midodrine
# Tobacco use - cont nicotine patch
# Gout - allopurinol (reduced to 100mg daily)
# HLD- cont atorva
# A fib- eliquis on hold restart in am cont metoprolol
# - s/p TAVR
- DVT PPx: eliquis on hold
- Code: Full
- Diet: puree [id number]; SLT re-eval
- Dispo: DC to [facility] in am
ACP
Patient consented to discuss, was alone, time spent explanation of advance directives, changes in health status, patient�s health care wishes if the patient becomes unable to make health decisions, goals of care, code status, and prognosis 'i want
to have it all'- 16 minutes
Time spent coordinating care, review of plan of care with resident, personally reviewed previous records in EMR, med rec, labs, radiology, d/w nursing, rads, total time documented is exclusive of any additional time listed that was spent in advance
care planning discussion -�51 minutes
Original Note:
Today's Communication/Plan
-
Patient hypoxic during ambulation and needed to be put at 4 L oxygen nasal cannula. Chest x-ray shows mild interstitial edema with an increased right pleural effusion and adjacent atelectasis. The patient has had fluid taps in the past and it is
uncertain if the patient may be collecting fluid again and need another tap. Was later able to be weaned down to 2 L.
Patient also had acute hematochezia with 2 bloody episodes of stool. H&H stable. CT angio with IV contrast ordered.
Patient not stable for discharge to [facility] currently. Will optimize patient prior to discharge.
Assessment / Plan
Assessment / Plan
HPI: Robert An is a 79yo M with a pmh of afib, CKD IIIb on HD (/), HFrEF, T2DM, CAD (s/p CABG), and (s/p TAVR) who was recently discharged on 05/16, now readmitted with R-sided facial droop & dysarthria, found to have L frontoparietal
CVA, now monitoring off HD.
Assessment/Plan:
-Acute hypoxemic respiratory failure: Unresolved
Patient had aspiration during BSC on 05/22 -also possible component of deconditioning due to recent hospitalizations
Patient received a short course of BiPAP which benefited the patient -weaned down to 2 L nasal cannula and tolerated - weaned to 1L on 05/28 but the patient stated that he felt like he was choking and was unable to finish sentences without taking a
breath. Conversational dyspnea. Patient had lung sounds with crackles at the bases with a pulse oxygenation of 87%. O2 was increased to 2 L without much improvement. Oxygen was increased to 4 L and oxygen saturation improved to 94%. Patient
able to maintain oxygen saturation while transferring from bed to chair at 4 L
Patient was again able to be weaned back down to 2 L via nasal cannula with an oxygen saturation of 93% on 05/28
Chest x-ray ordered showing mild interstitial edema with an increased right pleural effusion and adjacent atelectasis.
Patient recommended to be on an IDDSI level 5 minced and moist diet with mildly thick liquids and medications crushed to avoid aspiration risk
Patient was unable to maintain oxygen saturation on room air and unfortunately needed to be put back at 4 L nasal cannula on 05/28/2025 -patient also had diminished lung sounds with crackles bilaterally at the lung bases. Patient weaned down to 2 L
nasal cannula with 94% oxygen saturation.
Chest x-ray conducted on 05/28/2025 shows mild interstitial edema with an increased small right pleural effusion and adjacent atelectasis -patient possibly may be developing hospital-acquired pneumonia -will continue to monitor
-Hematochezia: Unresolved
Patient had a bloody stool the morning of 05/28/2025 and a subsequent stool was more bloody.
H&H is stable continue to trend
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
-Diarrhea secondary to C. difficile: Resolved
Patient was C. difficile positive on 05/20. Patient received preop cefazolin on 05/11/2025 in advance for TAVR. Patient was discharged on 05/16 after a month-long stay on the hospital. Diarrhea has resolved.
Continue vancomycin p.o. 125 mg 4 times daily -patient's antibiotic course should end on 05/30 to complete her 10-day course. Patient also received vancomycin enema on
Appreciate infectious diseases recommendations
-CKD stage IIIb: Stable
Holding Lasix
Patient to be discharged on 40 mg of torsemide daily
- Thrombocytopenia: Stable
- Leukopenia: Stable
Platelet count 102 on 05/28/2025 continue to trend
Lymphocyte count 4.2 on 05/08/2025 continue to trend
-Positive MRSA: Stable
Patient was nasal swab positive for MRSA on 05/20
Patient is likely colonized and he does not have any fever or leukocytosis
Patient with appropriate contact precautions
-Type 2 diabetes mellitus: Stable
14 units Home Lantus, aspart 3 units, sliding scale
-HFrEF: Stable
Patient has an EF of 25 to 30% status post TAVR
Daily ISSA's
Continue home metoprolol
Cardiology following - appreciate recommendations
-Orthostatic hypotension: Stable
Abdominal binder, compression stockings
Continue home midodrine
-Nicotine dependence: Stable
Continue nicotine patch
-Gout:
Continue allopurinol
FULL CODE STATUS
Stress Ulcer Prophylaxis: Pantoprazole
DVT Prophylaxis: Eliquis 5 mg
Anticipated Discharge: 24 - 48 hours
Subjective/Interval History
-
Date of Service: May 28, 2025
Met with patient at the bedside. He is tired laying in bed and offers no complaints at the present time. He is not short of breath and does not feel like he is having any chest tightness. He hopes that he is improving and feels slightly better
when compared to yesterday. His most recent bowel movement was bloody and he did not mention that.
Objective Data
-
Labs:
Laboratory Results
05/28/25 05/28/25 05/28/25
07:13 13:00 19:00
WBC 4.2 L
Hgb 8.3 L Pending Pending
Hct 26.1 L Pending Pending
Plt Count 102 L
Sodium 135
Potassium 4.9
Chloride 104
Carbon Dioxide 29
BUN 41 H
Creatinine 1.8 H
Glucose 93
Calcium 9.0
Vital Signs:
Vital Signs
Temp Pulse Resp BP Pulse Ox
98.3 F 77 20 113/48 100
05/28/25 11:00 05/28/25 11:00 05/28/25 11:00 05/28/25 11:00 05/28/25 11:00
I&O
05/27/25 05/28/25 05/29/25
06:59 06:59 06:59
Intake Total 960 / 960 500 / 500
Output Total 200 / 200 100 / 100
Balance 760 / 760 400 / 400
Review of Systems
-
History Source: Patient
Constitutional: Reports Fatigue and Weakness
EENT: Reports No Symptoms Reported
Respiratory: Reports No Symptoms
Cardiac: Reports No Symptoms
Abdomen/GI: Reports No Symptoms
Breast: Reports No Symptoms
Genitourinary: Reports No Symptoms
Musculoskeletal: Reports Muscle Weakness
Skin: Reports No Symptoms
Endocrine: Reports No Symptoms
Hematologic / Lymphatic: Reports No Symptoms
Physical Exam
-
General: Well Developed, Well Nourished, No Apparent Distress and Comfortable
HEENT: Normocephalic, Atraumatic and Moist Mucous Membranes
Respiratory: Crackles (Bilaterally at the lung bases)
Cardiac: Regular Rhythm and S1/S2
Breast: Deferred by me
GI: Soft, Nontender, Nondistended and Normal Bowel Sounds
Musculoskeletal: No Clubbing, No Cyanosis and No Edema
Skin: Warm and Dry; Negative Rash, Ulcers or Lesions
Neuro: Awake, Alert, Oriented and AO x 3
Psych: Calm
[2025-05-28 07:50] LABS: Hematocrit 26.1 % (39.0-52.0); Hemoglobin 8.3 g/dL (13.0-18.0); Mean Corp Hgb Conc. 31.8 g/dL (33.0-37.0); Mean Corpuscular Volume 102.0 fL (80.0-94.0); Platelet Count 102 10^3/uL (130-400); Red Cell Dist. Width 16.4 % (11.5-14.5)
[2025-05-28] MEDS: ZYLOPRIM 100 MG PO (08:05)
[2025-05-28] MEDS: NICODERM TRANSDERMAL 14 MG TRANSDERM (08:05)
[2025-05-28] MEDS: TOPROL XL 12.5 MG PO (08:05)
[2025-05-28] MEDS: PROTONIX 40 MG PO ×2 (08:06→19:53)
[2025-05-28] MEDS: VITAMIN B-12 1000 MCG PO (08:06)
[2025-05-28] MEDS: AZOPT 1% OPHTHALMIC SUSPENSION 1 DROP BOTH EYES ×2 (08:06→19:53)
[2025-05-28] MEDS: LIPITOR 80 MG PO (08:07)
[2025-05-28] MEDS: LANTUS 0.14 UNITS SC (08:10)
[2025-05-28 08:14] LABS: Glucose - Point of Care 98 mg/dl (70-99)
[2025-05-28] MEDS: NOVOLOG FLEXPEN 3 UNITS SC ×3 (08:14→18:08)
[2025-05-28] MEDS: NOVOLOG FLEXPEN-MODERATE RESISTANCE SC ×2 (08:14→12:07)
[2025-05-28 08:36] LABS: Blood Urea Nitrogen 41 mg/dl (9-20); Calcium 9.0 mg/dl (8.4-10.2); Carbon Dioxide 29 mmol/L (22-30); Chloride 104 mmol/L (98-107); Estimated Creatinine Clearance 29 ml/min; Glucose 93 mg/dl (70-99); Magnesium 2.0 mg/dl (1.6-2.3); Potassium 4.9 mmol/L (3.5-5.1); Sodium 135 mmol/L (135-145); eGFR 37.82
--- NOTE | 2025-05-28 08:40 | PTCARENOTE ---
05/28- Patient was reportedly on 1L O2. This AM patient states, 'I'm choking. I don't know, but I'm choking.' Patient able to speak complete sentences without issue. Skin=pale/dry. Cap refill=2sec. +PulsesX4. Airway patent. Lips=pink. Lungs are
diminished with crackles at bases. POX=87% on RA, HR=75. Increased O2 to 2L, then POX only went up to 88-89% with HR=80. On 4L, POX went up to 94%, and R=75. Will keep on 4L at this time. When transferring from bed to chair, patient was able to
maintain POX at 92% on the 4L with HR=92 with ambulation. Continue to monitor.
--- NOTE | 2025-05-28 10:30 | PTCARENOTE ---
05/28- Weaned patient to 2L via NC. Patient remains 93% on 3L with both rest and short ambulation, HR=75. Skin=pale/dry with pink lips. Cap refill<3sec. Patient also had an incontinent BM which is very red with maria l blood visible. BM is loosely
formed, moderate amount with visibly obvious blood. No black tarry melena currently observed. Heme tested a BM earlier this morning which was less obviously red but did heme test positive for blood. ZT=506/78. Hemoglobin and RBCs are low but
stable, around patient's baseline. Notified Physician.
--- NOTE | 2025-05-28 10:51 | W.PN.NEPH.PH ---
Today's Communication / Plan
-
Stable for discharge with creatinine at 1.8 and torsemide 40 mg daily
Assessment/Plan
-
IMP:
TAVR
ESRD
Paroxysmal atrial fibrillation
Chronic hyponatremia
COPD without exacerbation
Chronic heart failure reduced EF 30%
CAD/CABG x 4 (2001)
[employer] single-chamber ICD, 2017
Carotid disease -s/p left CEA 2012.
Hypotension
DM 2
h/o GI bleed 03/2025 , known h/o AVMS
Confusion
Old CVA
Plan:
continue midodrine
Stable for discharge with creatinine at 1.8
Chest x-ray noted small effusion with mild pulmonary edema= independently read
Antibiotics for pneumonia
Creatinine increased to 2 status post 80 of IV Lasix
I will hold diuretics through the weekend as his weights are stable
Daily labs
Status post PermCath removal 05/25
Would discharge him on 40 mg torsemide daily
-
-
Date of Service: May 28, 2025
CC / HPI / ROS
-
Chief Complaint:
MS change
History of Present Illness:
Cr stable stable
BP stable
on vanco for C diff colitis
recent large CVA
Review of Systems:
no CP/SOB
Weights stable
Labs
-
Labs:
WBC 4.2 10^3/uL (4.8-10.8) L 05/28/25 07:13
RBC 2.56 10^6/uL (4.70-6.10) L 05/28/25 07:13
Hgb 8.3 g/dL (13.0-18.0) L 05/28/25 07:13
Hct 26.1 % (39.0-52.0) L 05/28/25 07:13
Plt Count 102 10^3/uL (130-400) L 05/28/25 07:13
Sodium 135 mmol/L (135-145) 05/28/25 07:13
Potassium 4.9 mmol/L (3.5-5.1) 05/28/25 07:13
Chloride 104 mmol/L (98-107) 05/28/25 07:13
Carbon Dioxide 29 mmol/L (22-30) 05/28/25 07:13
BUN 41 mg/dl (9-20) H 05/28/25 07:13
Creatinine 1.8 mg/dL (0.7-1.3) H 05/28/25 07:13
eGFR 37.82 05/28/25 07:13
Glucose 93 mg/dl (70-99) 05/28/25 07:13
Calcium 9.0 mg/dl (8.4-10.2) 05/28/25 07:13
Phosphorus 3.0 mg/dl (2.5-4.5) 05/28/25 07:13
Nyj-D-Ujatzotcbag Pept 6900 pg/ml 05/20/25 08:07
Albumin 3.1 g/dl (3.5-5.0) L 05/20/25 08:07
Physical Exam
-
Vital Signs:
Vital Signs
Temp Pulse Resp BP Pulse Ox
98 F 76 20 127/58 94
05/28/25 07:00 05/28/25 07:00 05/28/25 07:00 05/28/25 07:00 05/28/25 08:35
Cardiovascular:: Regular rate and rhythm
Respiratory:: Bilateral: Coarse
Lung Excursion:: Normal
Abdomen:: Nontender and Soft
Bowel Sounds:: Normal
Extremity Edema:: +1: Bilateral:
[2025-05-28 12:03] LABS: Glucose - Point of Care 142 mg/dl (70-99)
[2025-05-28 13:35] LABS: Hematocrit 27.5 % (39.0-52.0); Hemoglobin 8.6 g/dL (13.0-18.0)
--- NOTE | 2025-05-28 14:28 | CM ---
Chart reviewed and per updated physician notes patient no longer requires HD and patient to switch to po Lasix, plan is for acute rehab and patient has been approved and accepted at [facility], caseworker reached out to physician team and
patient is not cleared for discharge today, update provided to [facility].
Plan; Acute rehab at [facility] report
[phone]
[2025-05-28 16:39] LABS: Glucose - Point of Care 164 mg/dl (70-99)
[2025-05-28] MEDS: NOVOLOG FLEXPEN-MODERATE RESISTANCE 1 UNITS SC (18:09)
[2025-05-28 20:25] LABS: Hematocrit 28.2 % (39.0-52.0); Hemoglobin 9.1 g/dL (13.0-18.0)
[2025-05-28 21:50] LABS: Glucose - Point of Care 139 mg/dl (70-99)
[2025-05-28] MEDS: TYLENOL 650 MG PO (23:11)
[2025-05-28] MEDS: REMOVE NICOTINE PATCH 1 PATCH REMOVE (23:11)
[2025-05-29 01:44] LABS: Hematocrit 25.8 % (39.0-52.0); Hemoglobin 8.2 g/dL (13.0-18.0)
[2025-05-29 04:55] VITALS: BMI 28.0
[2025-05-29] MEDS: FIRVANQ 125 MG PO ×3 (05:56→17:48)
[2025-05-29 07:00] VITALS: BP 108/50
--- NOTE | 2025-05-29 07:19 | W.PN.HOSP.TC ---
Addendum entered and electronically signed by Julio Phillips MD 05/29/25 21:20:
Attending Addendum-
I saw and evaluated the patient. I reviewed the resident�s note and agree with findings and plan as documented in the resident�s note. Sub: No further diarrhea per patient. Complains of fatigue. Denies N/V SOB or blood in stools. Denies cough
fevers. Full 12 point ROS reviewed and negative except as documented Exam: Vitals reviewed in chart GEN-NAD heart RRR lungs clear abd soft LE no edema Neuro MS 01/08 AAO x 2-3
Plan:
# Acute GI bleed
- CT without contrast-Possible small rectal wall mass versus adherent fecal material. Direct visualization recommended.- f/u as OP
-Mild volume overload or third spacing
-Moderate bilateral pleural effusions. New
-Bilateral pulmonary consolidation
-Faint hypodense splenic lesion probably a hemangioma
- resolved
- h and h stable
- tx for HB < 7
- repeat CBC in am
# Acute L frontoparietal CVA
- cont atorvastatin daily
- restart Eliquis in am
- appreciate cards/neuro input
- PT/OT, PM&R following, rec'd for acute rehab
# Right Carotid stenosis
- Follow up outpt with vascular surgery for R CEA candidacy
#JAY on CKD IIIb
-improving
-Has been continued on T// HD schedule post-TAVR. Pt 05/24 expressed interest in getting pt off HD to allow placement at [facility].
-Per nephrology 05/25, patient okay to dc HD, Permacath removed on 05/25
-cont torsemide
-f/u BMP in am
#Acute hypoxic insufficiency
- improving cont to wean
#C. difficile
- C. difficile positive 05/20
- cont Vancomycin PO ->05/30 (10 days)
- s/p vanc enema 05/21
- ID following, appreciate recs
#Thrombocytopenia
#Leukopenia
- Continue to monitor
#Positive MRSA
- Patient in isolation room
- Continue to monitor for any infectious symptoms
# T2DM - cont home lantus 14U, aspart 3U, sliding scale
# HFrEF (25-30% EF; s/p TAVR) - daily I&Os; daily weights (at dry weight currently 72kg); continue home metoprolol; cards following, appreciate recs; monitor R groin site restart torsemide
# Orthostatic hypotension - abdominal binder, compression stockings; home midodrine
# Tobacco use - cont nicotine patch
# Gout - allopurinol (reduced to 100mg daily)
# HLD- cont atorva
# A fib- eliquis on hold restart in am cont metoprolol
# - s/p TAVR
- DVT PPx: eliquis on hold
- Code: Full
- Dispo: DC to [facility] in am
Time spent coordinating care, review of plan of care with resident, personally reviewed records in EMR, med rec, consults, notes, labs, radiology, d/w nursing � 51 mins
Original Note:
Today's Communication/Plan
-
Patient has been weaned down to room air at rest. He required 1 L shortly after ambulation to return back to baseline.
Hematochezia is improving. Nursing staff reports an orangeish colored stool.
Patient will likely complete or be near completion to his antibiotic regimen around the time of discharge.
If patient remains stable we will discharge him tomorrow to [facility].
Assessment / Plan
Assessment / Plan
HPI: Robert An is a 79yo M with a pmh of afib, CKD IIIb on HD (/), HFrEF, T2DM, CAD (s/p CABG), and (s/p TAVR) who was recently discharged on 05/16, now readmitted with R-sided facial droop & dysarthria, found to have L frontoparietal
CVA, now monitoring off HD.
Assessment/Plan:
-Acute hypoxemic respiratory failure: Improving
Patient had aspiration during BSC on 05/22 -also possible component of deconditioning due to recent hospitalizations
Patient received a short course of BiPAP which benefited the patient -weaned down to 2 L nasal cannula and tolerated - weaned to 1L on 05/28 but the patient stated that he felt like he was choking and was unable to finish sentences without taking a
breath. Conversational dyspnea. Patient had lung sounds with crackles at the bases with a pulse oxygenation of 87%. O2 was increased to 2 L without much improvement. Oxygen was increased to 4 L and oxygen saturation improved to 94%. Patient
able to maintain oxygen saturation while transferring from bed to chair at 4 L
Patient was again able to be weaned back down to 2 L via nasal cannula with an oxygen saturation of 93% on 05/28
Chest x-ray ordered showing mild interstitial edema with an increased right pleural effusion and adjacent atelectasis.
Patient recommended to be on an IDDSI level 5 minced and moist diet with mildly thick liquids and medications crushed to avoid aspiration risk
Patient was unable to maintain oxygen saturation on room air and unfortunately needed to be put back at 4 L nasal cannula on 05/28/2025 -patient also had diminished lung sounds with crackles bilaterally at the lung bases. Patient weaned down to 2 L
nasal cannula with 94% oxygen saturation.
Chest x-ray conducted on 05/28/2025 shows mild interstitial edema with an increased small right pleural effusion and adjacent atelectasis -patient possibly may be developing hospital-acquired pneumonia -will continue to monitor
CT abdomen and pelvis conducted on 05/28/2025 showed moderate bilateral pleural effusion. Moderate right lower lobe consolidation and mild left lower lobe consolidation. Concern for pneumonia in the right lower lobe and atelectasis in the left
lower lobe. There is minimal consolidation in the lingula suggesting atelectasis.
Patient has been successfully weaned down to room air and is able to stay on room air at rest. When he ambulates he quickly desaturates and required 1 L nasal cannula to return back to baseline. He may not need that 1 L to maintain oxygen
saturation after he reaches his baseline.
-Hematochezia: Improving
Patient had a bloody stool the morning of 05/28/2025 and a subsequent stool was more bloody.
H&H is stable continue to trend
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
GI bleed could not be performed. There was also a soft tissue density mass along the right anterior wall of the rectum seen which is concerning for a mural mass.
-Diarrhea secondary to C. difficile: Resolved
Patient was C. difficile positive on 05/20. Patient received preop cefazolin on 05/11/2025 in advance for TAVR. Patient was discharged on 05/16 after a month-long stay on the hospital. Diarrhea has resolved.
Continue vancomycin p.o. 125 mg 4 times daily -patient's antibiotic course should end on 05/30 to complete her 10-day course. Patient also received vancomycin enema on
Appreciate infectious diseases recommendations
-CKD stage IIIb: Stable
Holding Lasix
Patient to be discharged on 40 mg of torsemide daily
- Thrombocytopenia: Stable
- Leukopenia: Stable
Platelet count 119 on 05/29/2025 continue to trend
Lymphocyte count 4.3 on 05/29/2025 continue to trend
-Positive MRSA: Stable
Patient was nasal swab positive for MRSA on 05/20
Patient is likely colonized and he does not have any fever or leukocytosis
Patient with appropriate contact precautions
-Type 2 diabetes mellitus: Stable
14 units Home Lantus, aspart 3 units, sliding scale
-HFrEF: Stable
Patient has an EF of 25 to 30% status post TAVR
Daily ISSA's
Continue home metoprolol
Cardiology following - appreciate recommendations
-Orthostatic hypotension: Stable
Abdominal binder, compression stockings
Continue home midodrine
-Nicotine dependence: Stable
Continue nicotine patch
-Gout:
Continue allopurinol
FULL CODE STATUS
Stress Ulcer Prophylaxis: Pantoprazole
DVT Prophylaxis: Eliquis 5 mg
Anticipated Discharge: 24 - 48 hours
Subjective/Interval History
-
Date of Service: May 29, 2025
Met with patient at the bedside. Overall, he offers no complaints and believes that he is feeling better today as compared to yesterday. He has no shortness of breath, chest tightness, or chest pain. He has not had any nausea vomiting or
diarrhea. He asks for the breakfast menu and help ordering breakfast.
Objective Data
-
Labs:
Labs
05/29/25 07:48
05/29/25 07:48
Vital Signs:
Vital Signs
Temp Pulse Resp BP Pulse Ox
97.8 F 77 18 131/55 99
05/28/25 23:00 05/28/25 23:00 05/28/25 23:00 05/28/25 23:00 05/28/25 23:00
I&O
05/28/25 05/29/25 05/30/25
06:59 06:59 06:59
Intake Total 500 / 500 360 / 360
Output Total 100 / 100 500 / 500
Balance 400 / 400 -140 / -140
Review of Systems
-
History Source: Patient
Constitutional: Reports Fatigue and Weakness
EENT: Reports No Symptoms Reported
Respiratory: Reports No Symptoms
Cardiac: Reports No Symptoms
Abdomen/GI: Reports No Symptoms
Breast: Reports No Symptoms
Genitourinary: Reports No Symptoms
Musculoskeletal: Reports Muscle Weakness
Skin: Reports No Symptoms
Endocrine: Reports No Symptoms
Hematologic / Lymphatic: Reports No Symptoms
Physical Exam
-
General: Well Developed, Well Nourished, No Apparent Distress and Comfortable
HEENT: Normocephalic, Atraumatic and Moist Mucous Membranes
Respiratory: Crackles (Bilaterally at the lung bases)
Cardiac: Regular Rhythm and S1/S2
Breast: Deferred by me
GI: Soft, Nontender, Nondistended and Normal Bowel Sounds
Musculoskeletal: No Clubbing, No Cyanosis and No Edema
Skin: Warm and Dry; Negative Rash, Ulcers or Lesions
Neuro: Awake, Alert, Oriented and AO x 3
Psych: Calm
[2025-05-29 07:23] LABS: Glucose - Point of Care 106 mg/dl (70-99)
[2025-05-29 09:30] LABS: Hematocrit 25.7 % (39.0-52.0); Hemoglobin 8.2 g/dL (13.0-18.0); Mean Corp Hgb Conc. 31.9 g/dL (33.0-37.0); Mean Corpuscular Volume 104.0 fL (80.0-94.0); Platelet Count 119 10^3/uL (130-400); Red Cell Dist. Width 16.1 % (11.5-14.5)
[2025-05-29] MEDS: NOVOLOG FLEXPEN-MODERATE RESISTANCE SC ×2 (09:31→16:55)
[2025-05-29] MEDS: NOVOLOG FLEXPEN 3 UNITS SC ×3 (09:31→16:55)
[2025-05-29] MEDS: LANTUS 0.14 UNITS SC (09:32)
[2025-05-29] MEDS: AZOPT 1% OPHTHALMIC SUSPENSION 1 DROP BOTH EYES ×2 (09:32→20:12)
[2025-05-29] MEDS: DEMADEX 40 MG PO (09:32)
[2025-05-29] MEDS: TOPROL XL 12.5 MG PO (09:33)
[2025-05-29] MEDS: LIPITOR 80 MG PO (09:33)
[2025-05-29] MEDS: PROTONIX 40 MG PO ×2 (09:33→20:13)
[2025-05-29] MEDS: NICODERM TRANSDERMAL 14 MG TRANSDERM (09:33)
[2025-05-29] MEDS: ZYLOPRIM 100 MG PO (09:34)
[2025-05-29] MEDS: VITAMIN B-12 1000 MCG PO (09:34)
[2025-05-29 10:00] LABS: ALT (SGPT) 16 U/L (0-50); AST (SGOT) 28 U/L (17-59); Albumin 2.5 g/dl (3.5-5.0); Alkaline Phosphatase 100 U/L (38-126); Blood Urea Nitrogen 44 mg/dl (9-20); Calcium 9.4 mg/dl (8.4-10.2); Carbon Dioxide 32 mmol/L (22-30); Chloride 104 mmol/L (98-107); Estimated Creatinine Clearance 31 ml/min; Glucose 95 mg/dl (70-99); Potassium 4.8 mmol/L (3.5-5.1); Sodium 135 mmol/L (135-145); Total Protein 5.5 g/dl (6.3-8.2); eGFR 40.50
--- NOTE | 2025-05-29 10:28 | W.PN.NEPH.PH ---
Today's Communication / Plan
-
Maintain Demadex
Follow BMP while hospitalized
Suspicion for GI bleed
Assessment/Plan
-
IMP:
TAVR
ESRD
Paroxysmal atrial fibrillation
Chronic hyponatremia
COPD without exacerbation
Chronic heart failure reduced EF 30%
CAD/CABG x 4 (2001)
Medtronic single-chamber ICD, 2018
Carotid disease -s/p left CEA 2012.
Hypotension
DM 2
h/o GI bleed 03/2025 , known h/o AVMS
Confusion
Old CVA
Plan:
Some GI bleeding noted last night CT without IV contrast was unrevealing
H&H stayed
continue midodrine
Stable for discharge with creatinine at 1.7
Chest x-ray noted small effusion with mild pulmonary edema= independently read
Antibiotics for pneumonia
Daily labs
Status post PermCath removal 05/25
maintain 40 mg torsemide daily
-
-
Date of Service: May 29, 2025
CC / HPI / ROS
-
Chief Complaint:
MS change
History of Present Illness:
Cr stable stable
BP stable
on vanco for C diff colitis
recent large CVA
Review of Systems:
no CP/SOB
Weights stable
Labs
-
Labs:
WBC 4.3 10^3/uL (4.8-10.8) L 05/29/25 07:48
RBC 2.47 10^6/uL (4.70-6.10) L 05/29/25 07:48
Hgb 8.2 g/dL (13.0-18.0) L 05/29/25 07:48
Hct 25.7 % (39.0-52.0) L 05/29/25 07:48
Plt Count 119 10^3/uL (130-400) L 05/29/25 07:48
Sodium 135 mmol/L (135-145) 05/29/25 07:48
Potassium 4.8 mmol/L (3.5-5.1) 05/29/25 07:48
Chloride 104 mmol/L (98-107) 05/29/25 07:48
Carbon Dioxide 32 mmol/L (22-30) H 05/29/25 07:48
BUN 44 mg/dl (9-20) H 05/29/25 07:48
Creatinine 1.7 mg/dL (0.7-1.3) H 05/29/25 07:48
eGFR 40.50 05/29/25 07:48
Glucose 95 mg/dl (70-99) 05/29/25 07:48
Calcium 9.4 mg/dl (8.4-10.2) 05/29/25 07:48
Phosphorus 3.0 mg/dl (2.5-4.5) 05/28/25 07:13
Fbu-C-Tsscsdtyvdh Pept 6900 pg/ml 05/20/25 08:07
Albumin 2.5 g/dl (3.5-5.0) L 05/29/25 07:48
Physical Exam
-
Vital Signs:
Vital Signs
Temp Pulse Resp BP Pulse Ox
97.6 F 75 18 108/50 99
05/29/25 07:00 05/29/25 09:32 05/29/25 07:00 05/29/25 09:32 05/29/25 07:00
Cardiovascular:: Regular rate and rhythm
Respiratory:: Bilateral: Coarse
Lung Excursion:: Normal
Abdomen:: Nontender and Soft
Bowel Sounds:: Normal
Extremity Edema:: +1: Bilateral:
[2025-05-29 11:35] LABS: Glucose - Point of Care 187 mg/dl (70-99)
[2025-05-29] MEDS: NOVOLOG FLEXPEN-MODERATE RESISTANCE 1 UNITS SC (12:38)
[2025-05-29 15:00] VITALS: BP 121/50; PULSE 76
[2025-05-29 15:02] VITALS: BP 121/50
[2025-05-29 15:32] VITALS: BP 126/56
--- NOTE | 2025-05-29 16:18 | CM ---
CM reviewed chart, spoke with liaison from [facility] (Josey)
[facility] likely will not have a bed until 05/31, update to Resident.
Will need to review beds tomorrow at [facility] if able to accept.
CM will continue to follow for all discharge planning needs.
Plan; [facility] once stable, pending bed availability
[2025-05-29 16:47] LABS: Glucose - Point of Care 137 mg/dl (70-99)
[2025-05-29] MEDS: REMOVE NICOTINE PATCH 1 PATCH REMOVE (21:15)
[2025-05-29] MEDS: MELATONIN 5 MG PO (21:15)
[2025-05-29 21:17] LABS: Glucose - Point of Care 195 mg/dl (70-99)
[2025-05-29 23:55] VITALS: BP 124/47
[2025-05-30] MEDS: FIRVANQ 125 MG PO ×5 (00:19→23:19)
[2025-05-30] MEDS: TYLENOL 650 MG PO (02:24)
[2025-05-30 06:00] VITALS: BMI 27.0
[2025-05-30 07:00] VITALS: BP 123/58
[2025-05-30 07:39] LABS: Glucose - Point of Care 92 mg/dl (70-99)
[2025-05-30] MEDS: NOVOLOG FLEXPEN-MODERATE RESISTANCE SC ×2 (07:50→12:39)
[2025-05-30 08:46] LABS: Hematocrit 25.4 % (39.0-52.0); Hemoglobin 8.2 g/dL (13.0-18.0); Mean Corp Hgb Conc. 32.3 g/dL (33.0-37.0); Mean Corpuscular Volume 104.5 fL (80.0-94.0); Platelet Count 125 10^3/uL (130-400); Red Cell Dist. Width 16.1 % (11.5-14.5)
[2025-05-30] MEDS: TOPROL XL 12.5 MG PO (09:13)
[2025-05-30] MEDS: DEMADEX 40 MG PO (09:13)
[2025-05-30] MEDS: LANTUS 0.14 UNITS SC (09:13)
[2025-05-30] MEDS: ZYLOPRIM 100 MG PO (09:13)
[2025-05-30] MEDS: NICODERM TRANSDERMAL 14 MG TRANSDERM (09:14)
[2025-05-30] MEDS: PROTONIX 40 MG PO ×2 (09:14→19:52)
[2025-05-30] MEDS: LIPITOR 80 MG PO (09:14)
[2025-05-30] MEDS: AZOPT 1% OPHTHALMIC SUSPENSION 1 DROP BOTH EYES ×2 (09:16→19:53)
[2025-05-30] MEDS: NOVOLOG FLEXPEN 3 UNITS SC ×3 (09:16→17:22)
[2025-05-30] MEDS: ELIQUIS 5 MG PO ×2 (09:18→19:52)
[2025-05-30] MEDS: VITAMIN B-12 1000 MCG PO (09:21)
--- NOTE | 2025-05-30 09:53 | CM ---
PT OT indicate acute rehab .
Josey at [facility] said bed ready tomorrow.
notified of above /.
[facility]
report [phone]
fax [phone]
PLAN To [facility] at or.
[2025-05-30 10:14] LABS: Blood Urea Nitrogen 47 mg/dl (9-20); Calcium 9.4 mg/dl (8.4-10.2); Carbon Dioxide 31 mmol/L (22-30); Chloride 104 mmol/L (98-107); Estimated Creatinine Clearance 29 ml/min; Glucose 84 mg/dl (70-99); Potassium 4.7 mmol/L (3.5-5.1); Sodium 136 mmol/L (135-145); eGFR 37.82
--- NOTE | 2025-05-30 10:46 | W.PN.NEPH.PH ---
Today's Communication / Plan
-
Awaiting discharge
Assessment/Plan
-
IMP:
TAVR
ESRD
Paroxysmal atrial fibrillation
Chronic hyponatremia
COPD without exacerbation
Chronic heart failure reduced EF 30%
CAD/CABG x 4 (2001)
Medtronic single-chamber ICD, 2017
Carotid disease -s/p left CEA 2012.
Hypotension
DM 2
h/o GI bleed 03/2025 , known h/o AVMS
Confusion
Old CVA
Plan:
Some GI bleeding noted last night CT without IV contrast was unrevealing
H&H stayed
continue midodrine
Stable for discharge with creatinine at 1.7
Chest x-ray noted small effusion with mild pulmonary edema= independently read
Antibiotics for pneumonia
Daily labs
Status post PermCath removal 05/25
maintain 40 mg torsemide daily
-
-
Date of Service: May 30, 2025
CC / HPI / ROS
-
Chief Complaint:
MS change
History of Present Illness:
Cr stable stable
BP stable
on vanco for C diff colitis
recent large CVA
Review of Systems:
no CP/SOB
Weights stable
Labs
-
Labs:
WBC 4.5 10^3/uL (4.8-10.8) L 05/30/25 08:28
RBC 2.43 10^6/uL (4.70-6.10) L 05/30/25 08:28
Hgb 8.2 g/dL (13.0-18.0) L 05/30/25 08:28
Hct 25.4 % (39.0-52.0) L 05/30/25 08:28
Plt Count 125 10^3/uL (130-400) L 05/30/25 08:28
Sodium 136 mmol/L (135-145) 05/30/25 08:27
Potassium 4.7 mmol/L (3.5-5.1) 05/30/25 08:27
Chloride 104 mmol/L (98-107) 05/30/25 08:27
Carbon Dioxide 31 mmol/L (22-30) H 05/30/25 08:27
BUN 47 mg/dl (9-20) H 05/30/25 08:27
Creatinine 1.8 mg/dL (0.7-1.3) H 05/30/25 08:27
eGFR 37.82 05/30/25 08:27
Glucose 84 mg/dl (70-99) 05/30/25 08:27
Calcium 9.4 mg/dl (8.4-10.2) 05/30/25 08:27
Phosphorus 3.0 mg/dl (2.5-4.5) 05/28/25 07:13
Pxq-J-Ypmnztznzig Pept 6900 pg/ml 05/20/25 08:07
Albumin 2.5 g/dl (3.5-5.0) L 05/29/25 07:48
Physical Exam
-
Vital Signs:
Vital Signs
Temp Pulse Resp BP Pulse Ox
99.0 F 76 18 123/58 93
05/30/25 07:00 05/30/25 07:00 05/30/25 07:00 05/30/25 07:00 05/30/25 07:00
Cardiovascular:: Regular rate and rhythm
Respiratory:: Bilateral: Coarse
Lung Excursion:: Normal
Abdomen:: Nontender and Soft
Bowel Sounds:: Normal
Extremity Edema:: +1: Bilateral:
[2025-05-30 11:00] VITALS: BP 137/66
--- NOTE | 2025-05-30 12:03 | W.PN.HOSP.TC ---
Addendum entered and electronically signed by Julio Phillips MD 05/30/25 21:33:
Attending Addendum-
I saw and evaluated the patient. I reviewed the resident�s note and agree with findings and plan as documented in the resident�s note. Sub: Denies diarrhea. No complaints but appears vibily SOB. Full 12 point ROS reviewed and negative except as
documented Exam: Vitals reviewed in chart GEN-NAD heart RRR lungs clear abd soft LE no edema Neuro MS 5 AAO x 2-3
Plan:
# Acute GI bleed
- CT without contrast-Possible small rectal wall mass versus adherent fecal material. Direct visualization recommended.- f/u as OP
-Mild volume overload or third spacing
-Moderate bilateral pleural effusions. New
-Bilateral pulmonary consolidation
-Faint hypodense splenic lesion probably a hemangioma
- resolved
- h and h stable
- tx for HB < 7
- repeat CBC in am
# Acute L frontoparietal CVA
- cont atorvastatin daily
- restart Eliquis-CTM closely
- appreciate cards/neuro input
- for acute rehab
# Right Carotid stenosis
- Follow up outpt with vascular surgery for R CEA candidacy
#JAY on CKD IIIb
-stable
- unclear if new baseline
- was on T//S HD schedule post-TAVR. taken off HD to allow placement at [facility].
- DC HD and TC removed on 05/25
- cont torsemide urinating without difficulty
- f/u BMP in am
#Acute hypoxic insufficiency
- desat to 87% on RA
- wean at [facility]
#C. difficile
- cont strict contact isolation
- C. difficile positive 05/20
- cont Vancomycin PO ->05/30 (10 days)
- s/p vanc enema 05/21
- ID following, appreciate recs
#Thrombocytopenia
#Leukopenia
- Continue to monitor
#Positive MRSA
# T2DM - cont home lantus 14U, aspart 3U, sliding scale
# HFrEF (25-30% EF; s/p TAVR) - daily I&Os; daily weights (dry weight currently @ 72kg); continue home metoprolol; cards following, appreciate recs, cont torsemide
# Orthostatic hypotension - abdominal binder, compression stockings; home midodrine
# Tobacco use - cont nicotine patch advised to QUIT
# Gout - allopurinol (reduced to 100mg daily)
# HLD- cont atorva
# A fib- eliquis on hold restart in am cont metoprolol
# - s/p TAVR
- DVT PPx: eliquis on hold
- Code: Full
- Dispo: DC to [facility] in am - bed avail in am
Time spent coordinating care, review of plan of care with resident, personally reviewed records in EMR, med rec, consults, notes, labs, radiology, d/w nursing � 52 mins
Original Note:
Today's Communication/Plan
-
[facility]
Assessment / Plan
Assessment / Plan
HPI: Robert An is a 79yo M with a pmh of afib, CKD IIIb on HD (//), HFrEF, T2DM, CAD (s/p CABG), and (s/p TAVR) who was recently discharged on 05/16, now readmitted with R-sided facial droop & dysarthria, found to have L frontoparietal
CVA, now monitoring off HD for candidacy to acute rehab.
Assessment/Plan:
#Acute left frontoparietal CVA
#Acute hypoxemic respiratory failure, improving
- Currently on 1L NC; Continue to wean as tolerated
-- Follow-up CXR
- Atorvastatin 80mg daily
- Eliquis 5mg bid
- PT/OT/PM&R following; [facility], dc there 05/[facility]
#Hematochezia, improving
#Acute GI Bleed
Patient had a bloody stool the morning of 05/28/2025 and a subsequent stool was more bloody. 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
anterior wall of the rectum seen which is concerning for a mural mass.
- Hbg stable: CTM, tx for hbg <7
- Follow-up outpatient for CT findings
#Diarrhea secondary to C. difficile
Patient was C. difficile positive on 05/20 s/p vanco enema 05/21-. Patient received preop cefazolin on 05/11/2025 in advance for TAVR. Patient was discharged on 05/16 after a month-long stay on the hospital. Diarrhea has resolved.
- Continue vancomycin p.o. 125 mg 4 times daily
--10 day course ends today 05/30
#CKD stage IIIb
- Nephro following
- Holding Lasix
- Patient to be discharged on 40 mg of torsemide daily
#Positive MRSA
Patient was nasal swab positive for MRSA on 05/20. Patient is likely colonized and he does not have any fever or leukocytosis
- Contact precautions
#Type 2 diabetes mellitus
- 14 units Home Lantus, aspart 3 units, sliding scale
#HFrEF
Patient has an EF of 25 to 30% status post TAVR
- Daily ISSA's
- Continue home metoprolol
- Cardiology following - appreciate recommendations
#Orthostatic hypotension
- Abdominal binder, compression stockings
- Continue home midodrine
#Nicotine dependence
- Continue nicotine patch
#Gout:
- Continue allopurinol
#Thrombocytopenia: CTM
#Leukopenia: CTM
FULL CODE STATUS
Stress Ulcer Prophylaxis: Pantoprazole
DVT Prophylaxis: Eliquis 5 mg
Anticipated Discharge: Within 24 hours
Subjective/Interval History
-
Date of Service: May 30, 2025
- Weaned from 2L NC to 1L NC, unable to wean further at this time (86-88% sat without NC)
- States he had difficulty sleeping; otherwise NAEON
Objective Data
-
Labs:
Laboratory Results
05/30/25 05/30/25
08:27 08:28
WBC 4.5 L
Hgb 8.2 L
Hct 25.4 L
Plt Count 125 L
Sodium 136
Potassium 4.7
Chloride 104
Carbon Dioxide 31 H
BUN 47 H
Creatinine 1.8 H
Glucose 84
Calcium 9.4
Vital Signs:
Vital Signs
Temp Pulse Resp BP Pulse Ox
97.8 F 75 18 137/66 97
05/30/25 11:00 05/30/25 11:00 05/30/25 11:00 05/30/25 11:00 05/30/25 11:00
I&O
05/29/25 05/30/25 05/31/25
06:59 06:59 06:59
Intake Total 360 / 360 1560 / 1560
Output Total 500 / 500 475 / 475
Balance -140 / -140 1085 / 1085
Review of Systems
-
History Source: Patient
All other systems: Reviewed and negative
Constitutional: Reports Fatigue and Sleep Disturbance
Respiratory: Reports No Symptoms
Musculoskeletal: Reports Muscle Weakness
Physical Exam
-
General: No Apparent Distress, Comfortable and Other (laying in bed comfortably)
HEENT: Normocephalic, Atraumatic, No Ptosis and PERRLA
Respiratory: Clear to Auscultation and Non Labored Respirations
Cardiac: Regular Rhythm and S1/S2
GI: Soft and Nontender
Musculoskeletal: No Clubbing and No Cyanosis
Skin: Warm and Dry
Neuro: AO x 3 and Slurred Speech
Psych: Calm
[2025-05-30 12:29] LABS: Glucose - Point of Care 124 mg/dl (70-99)
[2025-05-30 13:51] VITALS: BP 138/68; PULSE 77; O2SAT 97
[2025-05-30 15:30] VITALS: BP 128/59
[2025-05-30 17:20] LABS: Glucose - Point of Care 160 mg/dl (70-99)
[2025-05-30] MEDS: NOVOLOG FLEXPEN-MODERATE RESISTANCE 1 UNITS SC (17:21)
[2025-05-30] MEDS: REMOVE NICOTINE PATCH REMOVE (20:44)
[2025-05-30 21:28] LABS: Glucose - Point of Care 176 mg/dl (70-99)
[2025-05-30 23:12] VITALS: BP 135/66
[2025-05-30] MEDS: MELATONIN 5 MG PO (23:19)
[2025-05-31 06:00] VITALS: BMI 27.5
[2025-05-31 06:32] VITALS: BMI 27.5
[2025-05-31 08:06] VITALS: BP 115/48
[2025-05-31 08:14] LABS: Glucose - Point of Care 77 mg/dl (70-99)
[2025-05-31 08:28] LABS: Hematocrit 27.2 % (39.0-52.0); Hemoglobin 8.7 g/dL (13.0-18.0); Mean Corp Hgb Conc. 32.0 g/dL (33.0-37.0); Mean Corpuscular Volume 103.8 fL (80.0-94.0); Nucleated Red Blood Cells % 0 % (-); Platelet Count 132 10^3/uL (130-400); Red Cell Dist. Width 16.2 % (11.5-14.5)
[2025-05-31] MEDS: NOVOLOG FLEXPEN-MODERATE RESISTANCE SC ×2 (08:56→12:02)
[2025-05-31] MEDS: NOVOLOG FLEXPEN 3 UNITS SC ×2 (08:58→12:03)
[2025-05-31] MEDS: AZOPT 1% OPHTHALMIC SUSPENSION 1 DROP BOTH EYES (08:59)
[2025-05-31] MEDS: ZYLOPRIM 100 MG PO (09:00)
[2025-05-31] MEDS: DEMADEX 40 MG PO (09:00)
[2025-05-31] MEDS: TOPROL XL 12.5 MG PO (09:00)
[2025-05-31] MEDS: ELIQUIS 5 MG PO (09:01)
[2025-05-31] MEDS: VITAMIN B-12 1000 MCG PO (09:01)
[2025-05-31] MEDS: PROTONIX 40 MG PO (09:01)
[2025-05-31] MEDS: LIPITOR 80 MG PO (09:01)
[2025-05-31] MEDS: NICODERM TRANSDERMAL 14 MG TRANSDERM (09:02)
[2025-05-31] MEDS: LANTUS 0.14 UNITS SC (09:08)
--- NOTE | 2025-05-31 09:27 | W.PN.HOSP.TC ---
Addendum entered and electronically signed by Julio Phillips MD 05/31/25 22:07:
Attending Addendum-
I saw and evaluated the patient. I reviewed the resident�s note and agree with findings and plan as documented in the resident�s note. Sub: Denies diarrhea. 'i feel like i have something stuck in my throat' wants to go to rehab. Full 12 point ROS
reviewed and negative except as documented Exam: Vitals reviewed in chart GEN-NAD heart RRR lungs clear abd soft LE no edema Neuro MS 5 AAO x 2-3 dysarthric
Plan:
# Acute GI bleed
- CT without contrast-Possible small rectal wall mass versus adherent fecal material. Direct visualization recommended.- f/u as OP
-Mild volume overload or third spacing
-Moderate bilateral pleural effusions. New
-Bilateral pulmonary consolidation
-Faint hypodense splenic lesion probably a hemangioma
- resolved
- h and h stable
- tx for HB < 7
- repeat CBC prn
# Dysphagia
-IDDSI-4 pureed mild thick liquids
# Acute L frontoparietal CVA
- cont atorvastatin daily
- restarted Eliquis-CTM closely
- appreciate cards/neuro input
- for acute rehab
# Right Carotid stenosis
- Follow up outpt with vascular surgery for R CEA candidacy
#JAY on CKD IIIb
- stable
- likely new baseline @ 1.8
- was on T//S HD schedule post-TAVR. taken off HD to allow placement at [facility].
- DC HD and TC removed on 05/25
- cont torsemide urinating without difficulty
- f/u BMP as OP
#Acute hypoxic insufficiency
- desat to 87% on RA
- wean at [facility]
#C. difficile
- resolved
- C. difficile positive 05/20
- completed Vancomycin PO ->05/30 (10 days)
- s/p vanc enema 05/21
- ID following, appreciate recs
#Thrombocytopenia
#Leukopenia
- Continue to monitor
#Positive MRSA
# T2DM - cont home lantus 14U, aspart 3U, sliding scale
# HFrEF (25-30% EF; s/p TAVR) - daily I&Os; daily weights (dry weight currently @ 72kg); continue home metoprolol; cards following, appreciate recs, cont torsemide
# Orthostatic hypotension - abdominal binder, compression stockings; home midodrine
# Tobacco use - cont nicotine patch advised to QUIT
# Gout - allopurinol (reduced to 100mg daily)
# HLD- cont atorva
# A fib- eliquis on hold restart in am cont metoprolol
# - s/p TAVR
- DVT PPx: eliquis on hold
- Code: Full
- Dispo: DC to [facility]
Time spent coordinating care, DC planning, review of DC plan of care with resident, transition of care, review of records, med rec/scripts sent electronically, consults, notes, d/w consultants, nursing, and CM� 32 mins >50% of this time was devoted
to counseling and coordination of care
Original Note:
Today's Communication/Plan
-
Mucinex x 1 and encouraged secretion suctioning to nursing staff
Plan for [facility] re[facility] today
Assessment / Plan
Assessment / Plan
HPI: Robert An is a 79yo M with afib on Eliquis, CKD IIIb on HD (//), HFrEF, T2DM, CAD (s/p CABG), and (s/p TAVR) who was recently discharged on 05/16, now readmitted with R-sided facial droop & dysarthria, found to have L frontoparietal
CVA, now monitoring off HD for candidacy to acute rehab.
Assessment/Plan:
#Acute left frontoparietal CVA
#Acute hypoxemic respiratory failure, improving
- Currently on 1L NC; Continue to wean as tolerated at [facility]
-- CXR:
Right basilar opacification, likely representing a combination of pleural fluid and atelectasis in correlation with previous examinations. Small left pleural fluid may also be present.
Prominence of the pulmonary vascular markings.
No pneumothorax.
Stable cardiomediastinal silhouette. Sternotomy wires and an aortic valve prosthesis. Single lead left cardiac conduction device.
- Atorvastatin 80mg daily
- Eliquis 5mg bid
- Mucinex x 1 and encourage frequent suctioning
- Speech completed swallow study
- PT/OT/PM&R following; approved for [facility] re[facility] today 05/31
#Hematochezia, improving
#Acute GI Bleed
Patient had a bloody stool the morning of 05/28/2025 and a subsequent stool was more bloody. 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
anterior wall of the rectum seen which is concerning for a mural mass.
- Hbg stable: CTM, tx for hbg <7
- Follow-up outpatient for CT findings
#Diarrhea secondary to C. difficile
Patient was C. difficile positive on 05/20 s/p vanco enema 05/21-. Patient received preop cefazolin on 05/11/2025 in advance for TAVR. Patient was discharged on 05/16 after a month-long stay on the hospital. Diarrhea has resolved.
- Continue vancomycin p.o. 125 mg 4 times daily
--10 day course ends today 05/30
#CKD stage IIIb
- Nephro following
- Holding Lasix
- Patient to be discharged on 40 mg of torsemide daily
#Positive MRSA
Patient was nasal swab positive for MRSA on 05/20. Patient is likely colonized and he does not have any fever or leukocytosis
- Contact precautions
#Type 2 diabetes mellitus
- 14 units Home Lantus, aspart 3 units, sliding scale
#HFrEF
Patient has an EF of 25 to 30% status post TAVR
- Daily ISSA's
- Continue home metoprolol
- Cardiology following - appreciate recommendations
#Orthostatic hypotension
- Abdominal binder, compression stockings
- Continue home midodrine
#Nicotine dependence
- Continue nicotine patch
#Gout:
- Continue allopurinol
#Thrombocytopenia: CTM
#Leukopenia: CTM
FULL CODE STATUS
Stress Ulcer Prophylaxis: Pantoprazole
DVT Prophylaxis: Eliquis 5 mg
[facility]
Subjective/Interval History
-
Date of Service: May 31, 2025
-This morning, he is laying flat in bed and complaining of mucus being stuck in his throat, that he is unable to cough up. Ordered one-time dose of Mucinex and asked nursing to assist with suction.
Objective Data
-
Labs:
Laboratory Results
05/31/25 05/31/25
07:46 08:55
WBC 4.8
Hgb 8.7 L
Hct 27.2 L
Plt Count 132
Sodium Cancelled Pending
Potassium Cancelled Pending
Chloride Cancelled Pending
Carbon Dioxide Cancelled Pending
BUN Cancelled Pending
Creatinine Cancelled Pending
Glucose Cancelled Pending
Calcium Cancelled Pending
Vital Signs:
Vital Signs
Temp Pulse Resp BP Pulse Ox
97.5 F 75 16 115/48 96
05/31/25 08:06 05/31/25 08:06 05/31/25 08:06 05/31/25 08:06 05/31/25 08:06
I&O
05/30/25 05/31/25 06/01/25
06:59 06:59 06:59
Intake Total 1560 / 1560 660 / 660
Output Total 475 / 475 1000 / 1000
Balance 1085 / 1085 -340 / -340
Review of Systems
-
History Source: Patient
All other systems: Reviewed and negative
Respiratory: Reports Cough and Wheezing
Physical Exam
-
General: Well Developed and Other (Laying in bed trying to cough up mucus)
HEENT: Normocephalic, Atraumatic and Moist Mucous Membranes
Respiratory: Crackles and Non Labored Respirations
Cardiac: Regular Rhythm and S1/S2
GI: Soft, Nontender and Nondistended
Musculoskeletal: No Clubbing and No Cyanosis
Skin: Warm and Dry
Psych: Calm
[2025-05-31 09:31] LABS: Blood Urea Nitrogen 50 mg/dl (9-20); Calcium 9.3 mg/dl (8.4-10.2); Carbon Dioxide 32 mmol/L (22-30); Chloride 104 mmol/L (98-107); Estimated Creatinine Clearance 29 ml/min; Glucose 81 mg/dl (70-99); Potassium 4.4 mmol/L (3.5-5.1); Sodium 139 mmol/L (135-145); eGFR 37.82
[2025-05-31 10:16] VITALS: BP 134/61; O2SAT 95
[2025-05-31] MEDS: MUCINEX 600 MG PO (10:28)
--- NOTE | 2025-05-31 11:33 | CM ---
indicated pt ready for discharge.
Josey at [facility] said bed ready today.
notified of above Spoke with Aileen she agrees with discharge today to [facility].
IMM reviewed signed on chart.
[facility] aware of above.
[facility]
report [phone]
fax [phone]
PLAN To [facility] at [facility]
[2025-05-31 11:39] LABS: Glucose - Point of Care 127 mg/dl (70-99)
--- NOTE | 2025-05-31 11:53 | W.PN.NEPH.PH ---
Today's Communication / Plan
-
Continue p.o. torsemide
Assessment/Plan
-
IMP:
TAVR
ESRD
Paroxysmal atrial fibrillation
Chronic hyponatremia
COPD without exacerbation
Chronic heart failure reduced EF 30%
CAD/CABG x 4 (2001)
Medtronic single-chamber ICD, 2017
Carotid disease -s/p left CEA 2012.
Hypotension
DM 2
h/o GI bleed 03/2025 , known h/o AVMS
Confusion
Old CVA
Plan:
Some GI bleeding noted last night CT without IV contrast was unrevealing
H&H stayed
continue midodrine
Stable for discharge with creatinine at 1.7
Daily labs
Status post PermCath removal 05/25
Chest x-ray-= increased right density stable interstitial prominence= possible aspiration
maintain 40 mg torsemide daily
-
-
Date of Service: May 31, 2025
CC / HPI / ROS
-
Chief Complaint:
MS change
History of Present Illness:
Cr stable stable
BP stable
on vanco for C diff colitis
recent large CVA
Review of Systems:
no CP/SOB
Weights stable
Labs
-
Labs:
WBC 4.8 10^3/uL (4.8-10.8) 05/31/25 07:46
RBC 2.62 10^6/uL (4.70-6.10) L 05/31/25 07:46
Hgb 8.7 g/dL (13.0-18.0) L 05/31/25 07:46
Hct 27.2 % (39.0-52.0) L 05/31/25 07:46
Plt Count 132 10^3/uL (130-400) 05/31/25 07:46
Sodium 139 mmol/L (135-145) 05/31/25 08:55
Potassium 4.4 mmol/L (3.5-5.1) 05/31/25 08:55
Chloride 104 mmol/L (98-107) 05/31/25 08:55
Carbon Dioxide 32 mmol/L (22-30) H 05/31/25 08:55
BUN 50 mg/dl (9-20) H 05/31/25 08:55
Creatinine 1.8 mg/dL (0.7-1.3) H 05/31/25 08:55
eGFR 37.82 05/31/25 08:55
Glucose 81 mg/dl (70-99) 05/31/25 08:55
Calcium 9.3 mg/dl (8.4-10.2) 05/31/25 08:55
Phosphorus 3.0 mg/dl (2.5-4.5) 05/28/25 07:13
Iwm-P-Xxxlitsiiwl Pept 6900 pg/ml 05/20/25 08:07
Albumin 2.5 g/dl (3.5-5.0) L 05/29/25 07:48
Physical Exam
-
Vital Signs:
Vital Signs
Temp Pulse Resp BP Pulse Ox
97.5 F 75 16 115/48 96
05/31/25 08:06 05/31/25 08:06 05/31/25 08:06 05/31/25 08:06 05/31/25 08:06
Cardiovascular:: Regular rate and rhythm
Respiratory:: Bilateral: Coarse
Lung Excursion:: Normal
Abdomen:: Nontender and Soft
Bowel Sounds:: Normal
Extremity Edema:: None: Bilateral:
--- NOTE | 2025-05-31 12:14 | W.DCSUMMARY ---
Addendum entered and electronically signed by Julio Phillips MD 05/31/25 22:08:
Read, reviewed, and agree. See same day progress note for additional details.
Kodi Phillips MD
Original Note:
Documented by User: Carey Pendleton MD, Resident 05/31/25 12:29
Discharge Summary
Discharge Data
Date of Admission: 05/20/25
Date of Discharge: 05/31/25
-
Pending Results: No
Hospital Course
Discharging Physician : Carey Pendleton
Disposition : [facility]
Principal Discharge diagnosis : Acute left frontoparietal CVA
Hospital Course : Robert An is a 79yo M with afib on Eliquis, CKD IIIb on HD (/), HFrEF, T2DM, CAD (s/p CABG), and (s/p TAVR) who was recently discharged on 05/16/25, then presented and readmitted on 05/20/25 with R-sided facial droop &
dysarthria, found to have L frontoparietal CVA. His hospital course by problem is as below. He is being discharged to [facility]. He is off hemodialysis for candidacy to acute rehab. Nephrology and cardiology were involved throughout his care.
Hospital course by problem is below:
#Acute left frontoparietal CVA
#Acute hypoxemic respiratory failure, improving
- Currently on 1L NC; Continue to wean as tolerated at [facility]
- Atorvastatin 80mg daily
- Eliquis 5mg bid
- Mucinex x 1 and encourage frequent suctioning
- Speech completed swallow study
- PT/OT/PM&R following; approved for [facility] today 05/31
#Hematochezia, improving
#Acute GI Bleed
Patient had a bloody stool the morning of 05/28/2025 and a subsequent stool was more bloody. 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
anterior wall of the rectum seen which is concerning for a mural mass.
- Hbg stable: CTM, tx for hbg <7
- Follow-up outpatient for CT findings
#Diarrhea secondary to C. difficile
Patient was C. difficile positive on 05/20 s/p vanco enema 05/21-. Patient received preop cefazolin on 05/11/2025 in advance for TAVR. Patient was discharged on 05/16 after a month-long stay on the hospital. Diarrhea has resolved.
- Continue vancomycin p.o. 125 mg 4 times daily
--10 day course ends today 05/30
#CKD stage IIIb
- Nephro following
- Holding Lasix
- Patient to be discharged on 40 mg of torsemide daily
#Positive MRSA
Patient was nasal swab positive for MRSA on 05/20. Patient is likely colonized and he does not have any fever or leukocytosis
- Contact precautions
#Type 2 diabetes mellitus
- 14 units Home Lantus, aspart 3 units, sliding scale
#HFrEF
Patient has an EF of 25 to 30% status post TAVR
- Daily ISSA's
- Continue home metoprolol
- Cardiology following - appreciate recommendations
#Orthostatic hypotension
- Abdominal binder, compression stockings
- Continue home midodrine
#Nicotine dependence
- He wishes to quit; advised to quit
- Continue nicotine patch
#Gout:
- Continue allopurinol
#Thrombocytopenia: CTM
#Leukopenia: CTM
Images:
CXR 05/31:
Right basilar opacification, likely representing a combination of pleural fluid and atelectasis in correlation with previous examinations. Small left pleural fluid may also be present.
Prominence of the pulmonary vascular markings.
No pneumothorax.
Stable cardiomediastinal silhouette. Sternotomy wires and an aortic valve prosthesis. Single lead left cardiac conduction device.
CT PE, A/P 05/28:
Lung Bases: There are moderate bilateral pleural effusions. There is moderate right lower lobe consolidation and mild left lower lobe consolidation. This is concerning for pneumonia in the right lower lobe and atelectasis in the left lower lobe.
There is minimal consolidation in the lingula suggesting atelectasis.
Bone: Osseous structures of the abdomen and pelvis show moderate degenerative disease.
Abdomen and pelvis: The unenhanced liver, spleen, and pancreas are unremarkable aside from a hypodense lesion of the spleen measuring 1.6 cm probably a hemangioma. The gallbladder has been removed. The adrenal glands and kidneys are unremarkable.
The abdominal aorta is normal caliber. There is severe atherosclerotic vascular disease. No significant lymphadenopathy is noted. Bowel loops are normal caliber. The terminal ileum and appendix are within normal limits. There is moderate fecal
material in the colon.
No free fluid is noted. The urinary bladder is mildly distended. There is mild diffuse bladder wall thickening..
There is a large amount of residual oral contrast in the colon from a recent video swallow exam with barium. Therefore, evaluation for GI bleed cannot be performed.
There is a soft tissue density mass along the right anterior wall of the rectum seen best on image 127 series 201 concerning for a mural mass appeared adherent fecal material cannot be excluded. It measures 1.6 x 1.0 cm. This is approximately 2.5 cm
from the anus.
There is mild increased density of the subcutaneous tissues diffusely suggesting mild volume overload or third spacing.
IMPRESSION: Evaluation for GI bleed could not be performed because of residual barium contrast from recent video swallowing study
Possible small rectal wall mass versus adherent fecal material. Direct visualization recommended.
Mild volume overload or third spacing. New
Moderate bilateral pleural effusions. New
Bilateral pulmonary consolidation as described above. New
Faint hypodense splenic lesion probably a hemangioma. Nonurgent abdominal ultrasound recommended when the patient is able
In accordance with Act 112, known as the Patient Test Results Information Act, a letter will be sent to the patient which notifies the patient that a significant abnormality may exist. The letter will be sent within approximately 20 days of the
date the results were sent to the ordering health care practitioner.
Neck/Head MRA, Brain MRI 05/21:
Large nonhemorrhagic acute/subacute infarct in the left frontoparietal lobe.
Additional scattered smaller sites of nonhemorrhagic acute/subacute infarcts throughout the bilateral cerebral and cerebellar hemispheres. Findings may reflect embolic etiology.
No focal hemodynamically significant stenosis, aneurysm or occlusion.
Head CT 05/20:
No acute intracranial abnormality noted.
Findings suggesting small old infarcts in the posterior left frontal lobe and left occipital lobe.
Mild periventricular small vessel ischemic disease.
Mild atrophy
Discharge Plan
-
Patient Disposition: Acute Rehab Facility
Discharge Diagnosis/Procedures: L frontoparietal CVA; CKD IIIb; C diff diarrhea
Condition: Good
Diet: Other diet
Additional Diets: Diet: IDDSI Level 5- minced and moist, with mildly thick liquids.
Activity: As tolerated
Driving Restrictions: As prior to admission
Bathing Restrictions: None
Other Services: PT and OT
Specialty Instructions: Weigh Daily- Call MD for wt gain/loss 3 lbs overnight/5 lbs in 1 week
Referrals:
Nazario Sutton MD [Active, Cardiology] - 07/04/25 11:00 am
Referral Note: You have a cardiology follow up appointment at the [place] office. Please call with questions.
Edwin Yates MD [Active, Nephrology] - in one to two weeks
Referral Note: monitoring off HD
Chris You MD [Active, Vascular Surgery] - 06/26/25 8:00 am
Referral Note: discuss R CEA
Christiano Eason MD [Family Provider, Family Practice]
Additional Discharge Medication Instructions: - Continue eliquis 5mg twice daily
- Do NOT take aspirin while taking eliquis
- START taking 40mg torsemide daily
- Your allopurinol dose was changed from 150mg to 100mg; continue taking allopurinol 100mg daily
- Continue taking your metoprolol, midodrine, and atorvastatin
- Continue taking your home insulin and omeprazole
- Stop taking ambien
- Follow up with your in flight technician, industrial custodian, and primary care physician in 1-2 weeks. You may see the vascular surgeon (Dr. You) to talk about right-sided carotid endarterectomy for the plaque you have in that artery.
Prescriptions:
New
nicotine 14 mg/24 hr Patch 24 Hour
14 mg transdermal DAILY PRN (Reason: nicotine cravings) Qty: 28 0RF
Rx Instructions:
use while in acute rehab as need for cravings
guaifenesin 100 mg/5 mL Liquid
200 mg PO Q4HPRN PRN (Reason: cough) 30 Days Qty: 1500 0RF
Rx Instructions:
for 30 days
acetaminophen 325 mg Tablet
650 mg PO Q4HPRN PRN (Reason: GARCIA, mild pain, or temp >100.4F) Qty: 60 0RF
torsemide 40 mg tablet
40 mg PO DAILY 60 Days Qty: 60 0RF
Rx Instructions:
for 60 days
allopurinol 100 mg Tablet
100 mg PO DAILY 90 Days Qty: 90 0RF
Rx Instructions:
for 90 days
Continued
cyanocobalamin (vitamin B-12) 1,000 MCG tablet
1,000 mcg PO DAILY
atorvastatin 80 mg Tablet
80 mg PO DAILY
insulin glargine [Lantus Solostar U-100 Insulin] 100 unit/mL (3 mL) insulin pen
14 unit SC HS
insulin aspart U-100 [Novolog FlexPen U-100 Insulin] 100 unit/mL (3 mL) insulin pen
3 unit SC AC Qty: 15 0RF
therapeutic multivitamin Tablet
1 tab PO DAILY
omeprazole 40 mg Capsule,Delayed Release(Dr/Ec)
40 mg PO BID
Fruit and Vegetable Daily 5-6-150 mg Capsule
1 cap PO DAILY
Eliquis 5 mg Tablet
5 mg PO BID
brinzolamide 1 % Drops,Suspension
1 drp BOTH EYES BID Qty: 0
midodrine 2.5 mg Tablet
2.5 mg PO BID 90 Days Qty: 180 0RF
metoprolol succinate 25 mg Tablet Extended Release 24 Hr
12.5 mg PO DAILY 90 Days Qty: 45 0RF
Rx Instructions:
for 90 days
Held
potassium chloride 20 mEq tablet,ER particles/crystals
20 meq PO BID
Hold Instructions: Resume on 06/05/25. Consider restarting after seeing your outpatient primary care physician and in flight technician. You are not taking diuretics now (we are stopping furosemide for now), so your potassium levels should be more stable
without the supplement.
Discontinued
allopurinol 300 mg Tablet
150 mg PO BID
zolpidem [Ambien] 5 mg Tablet
5 mg PO HSPRN PRN (Reason: sleep)
brimonidine 0.1 % Drops
1 drp BOTH EYES BID@1200,2200
Discharge Orders:
Discharge Patient (As Directed); Ordered 05/31/25
Ordered By: Carey Pendleton
Discharge Date and Time
Discharge Date/Time: 05/31/25 15:43
Print Language: BELARUSIAN

Documented by User: Julio Phillips MD 05/31/25 22:01
Discharge Summary
Discharge Data
Date of Admission: 05/20/25
Date of Discharge: 05/31/25
Discharge Plan
-
Patient Disposition: Acute Rehab Facility
Discharge Diagnosis/Procedures: L frontoparietal CVA; CKD IIIb; C diff diarrhea
Condition: Good
Diet: Other diet
Additional Diets: Diet: IDDSI Level 5- minced and moist, with mildly thick liquids.
Activity: As tolerated
Driving Restrictions: As prior to admission
Bathing Restrictions: None
Other Services: PT and OT
Specialty Instructions: Weigh Daily- Call MD for wt gain/loss 3 lbs overnight/5 lbs in 1 week
Referrals:
Nazario Sutton MD [Active, Cardiology] - 07/04/25 11:00 am
Referral Note: You have a cardiology follow up appointment at the [place] office. Please call with questions.
Edwin Yates MD [Active, Nephrology] - in one to two weeks
Referral Note: monitoring off HD
Chris You MD [Active, Vascular Surgery] - 06/26/25 8:00 am
Referral Note: discuss R CEA
Christiano Eason MD [Family Provider, [facility]]
Additional Discharge Medication Instructions: - Continue eliquis 5mg twice daily
- Do NOT take aspirin while taking eliquis
- START taking 40mg torsemide daily
- Your allopurinol dose was changed from 150mg to 100mg; continue taking allopurinol 100mg daily
- Continue taking your metoprolol, midodrine, and atorvastatin
- Continue taking your home insulin and omeprazole
- Stop taking ambien
- Follow up with your in flight technician, industrial custodian, and primary care physician in 1-2 weeks. You may see the vascular surgeon (Dr. You) to talk about right-sided carotid endarterectomy for the plaque you have in that artery.
Prescriptions:
New
nicotine 14 mg/24 hr Patch 24 Hour
14 mg transdermal DAILY PRN (Reason: nicotine cravings) Qty: 28 0RF
Rx Instructions:
use while in acute rehab as need for cravings
guaifenesin 100 mg/5 mL Liquid
200 mg PO Q4HPRN PRN (Reason: cough) 30 Days Qty: 1500 0RF
Rx Instructions:
for 30 days
acetaminophen 325 mg Tablet
650 mg PO Q4HPRN PRN (Reason: GARCIA, mild pain, or temp >100.4F) Qty: 60 0RF
torsemide 40 mg tablet
40 mg PO DAILY 60 Days Qty: 60 0RF
Rx Instructions:
for 60 days
allopurinol 100 mg Tablet
100 mg PO DAILY 90 Days Qty: 90 0RF
Rx Instructions:
for 90 days
Continued
cyanocobalamin (vitamin B-12) 1,000 MCG tablet
1,000 mcg PO DAILY
atorvastatin 80 mg Tablet
80 mg PO DAILY
insulin glargine [Lantus Solostar U-100 Insulin] 100 unit/mL (3 mL) insulin pen
14 unit SC HS
insulin aspart U-100 [Novolog FlexPen U-100 Insulin] 100 unit/mL (3 mL) insulin pen
3 unit SC AC Qty: 15 0RF
therapeutic multivitamin Tablet
1 tab PO DAILY
omeprazole 40 mg Capsule,Delayed Release(Dr/Ec)
40 mg PO BID
Fruit and Vegetable Daily 5-6-150 mg Capsule
1 cap PO DAILY
Eliquis 5 mg Tablet
5 mg PO BID
brinzolamide 1 % Drops,Suspension
1 drp BOTH EYES BID Qty: 0
midodrine 2.5 mg Tablet
2.5 mg PO BID 90 Days Qty: 180 0RF
metoprolol succinate 25 mg Tablet Extended Release 24 Hr
12.5 mg PO DAILY 90 Days Qty: 45 0RF
Rx Instructions:
for 90 days
Held
potassium chloride 20 mEq tablet,ER particles/crystals
20 meq PO BID
Hold Instructions: Resume on 06/05/25. Consider restarting after seeing your outpatient primary care physician and in flight technician. You are not taking diuretics now (we are stopping furosemide for now), so your potassium levels should be more stable
without the supplement.
Discontinued
allopurinol 300 mg Tablet
150 mg PO BID
zolpidem [Ambien] 5 mg Tablet
5 mg PO HSPRN PRN (Reason: sleep)
brimonidine 0.1 % Drops
1 drp BOTH EYES BID@1200,2200
Discharge Orders:
Discharge Patient (As Directed); Ordered 05/31/25
Ordered By: Carey Pendleton
Discharge Date and Time
Discharge Date/Time: 05/31/25 15:43
Print Language: BELARUSIAN
[2025-05-31 15:38] VITALS: BP 98/54
== END 2025-05-31 15:43 | DRG 64 ==
LOC: 4 WEST ACU 13:15
PROVIDERS: Internal Medicine; Internal Medicine Nephrology; Nurse Practitioner Family; Physician Assistant Medical; Radiology Vascular & Interventional Radiology; Specialist; ADMITTING PHYSICIAN Internal Medicine; ATTENDING PHYSICIAN Family Medicine; CONSULT PHYSICIAN Internal Medicine Cardiovascular Disease; CONSULT PHYSICIAN Physical Medicine & Rehabilitation; CONSULT PHYSICIAN Psychiatry & Neurology Neurology; CONSULT PHYSICIAN Specialist; EMERGENCY PHYSICIAN Emergency Medicine; FAMILY PHYSICIAN Family Medicine; OTHER PHYSICIAN Internal Medicine Infectious Disease; OTHER PHYSICIAN Thoracic Surgery (Cardiothoracic Vascular Surgery)
PROC: 5A09357 Assistance with Respiratory Ventilation, Less than 24 Consecutive Hours, Continuous Positive Airway Pressure (ICD-10-PCS; 2025-05-22)
PROC: 5A1D70Z Performance of Urinary Filtration, Intermittent, Less than 6 Hours Per Day (ICD-10-PCS; 2025-05-22)
PROC: 05PYX3Z Removal of Infusion Device from Upper Vein, External Approach (ICD-10-PCS; 2025-05-25)
DX: I63.512 Cerebral infarction due to unspecified occlusion or stenosis of left middle cerebral artery (principal); J18.9 Pneumonia, unspecified organism; N18.6 End stage renal disease; J96.01 Acute respiratory failure with hypoxia; I50.22 Chronic systolic (congestive) heart failure; K92.1 Melena; A04.72 Enterocolitis due to Clostridium difficile, not specified as recurrent; N17.9 Acute kidney failure, unspecified; E87.1 Hypo-osmolality and hyponatremia; I13.2 Hypertensive heart and chronic kidney disease with heart failure and with stage 5 chronic kidney disease, or end stage renal disease; I42.8 Other cardiomyopathies; J44.0 Chronic obstructive pulmonary disease with (acute) lower respiratory infection; R29.810 Facial weakness; R47.1 Dysarthria and anarthria; I48.0 Paroxysmal atrial fibrillation; E11.22 Type 2 diabetes mellitus with diabetic chronic kidney disease; I25.10 Atherosclerotic heart disease of native coronary artery without angina pectoris; Z95.1 Presence of aortocoronary bypass graft; E78.00 Pure hypercholesterolemia, unspecified; Z82.49 Family history of ischemic heart disease and other diseases of the circulatory system; Z79.4 Long term (current) use of insulin; Z79.01 Long term (current) use of anticoagulants; Z79.82 Long term (current) use of aspirin; Z79.899 Other long term (current) drug therapy; Z95.2 Presence of prosthetic heart valve; I95.1 Orthostatic hypotension; D69.6 Thrombocytopenia, unspecified; D72.819 Decreased white blood cell count, unspecified; D18.00 Hemangioma unspecified site; R13.10 Dysphagia, unspecified; D53.9 Nutritional anemia, unspecified; E11.40 Type 2 diabetes mellitus with diabetic neuropathy, unspecified; G47.00 Insomnia, unspecified; I25.2 Old myocardial infarction; I25.5 Ischemic cardiomyopathy; I65.21 Occlusion and stenosis of right carotid artery; N40.0 Benign prostatic hyperplasia without lower urinary tract symptoms; R47.01 Aphasia; Z86.73 Personal history of transient ischemic attack (TIA), and cerebral infarction without residual deficits; Z95.5 Presence of coronary angioplasty implant and graft; Z95.810 Presence of automatic (implantable) cardiac defibrillator; Z99.2 Dependence on renal dialysis
CPT/HCPCS: 36589; 70450; 70544; 70548; 70551; 71045; 71046; 74176; 74230; 80048; 80053; 80061; 81003; 81015; 82607; 82746; 82962; 83605; 83735; 83880; 84100; 84439; 84443; 84484; 85014; 85018; 85025; 85027; 85049; 85730; 87040; 87045; 87046; 87070; 87086; 87205; 87324; 87427; 87449; 87641; 89055; 92507; 92523; 92526; 92610; 92611; 93005; 93308; 93321; 93325; 93880; 94660; 97110; 97116; 97129; 97163; 97167; 97530; 97535; A9585; G0257; Q5106

== ENCOUNTER 2025-06-01 13:37 | Emergency (ER) | payer MEDICARE, BC, SELFPAY ==
[2025-06-01 13:41] VITALS: BP 141/62
[2025-06-01 14:00] VITALS: BP 122/72
--- NOTE | 2025-06-01 14:11 | ED.GENMED ---
History of Present Illness
<Wesley Parham PA-C - Last Filed: 06/01/25 17:51>
General
Chief Complaint: Urinary Symptoms
Source: patient
Exam Limitations: none
Time Seen by Provider: 06/01/25 13:54
History of Present Illness
History of Present Illness:
79-year-old male just discharged from this hospital yesterday [facility] with new onset hematuria. 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 He is on Eliquis. He also developed C. difficile
while in the hospital was treated. He was having more loose stools at [facility] rehab and they were about to restart him on vancomycin however they noticed that there is significant mount of blood in his depends. They saw today that he had new onset
hematuria. Patient denies any pain. He denies shortness of breath. No other complaints at this time
Past History
<Wesley Parham PA-C - Last Filed: 06/01/25 17:51>
Past History
ED Past Medical History: Arrthythmia (atrial fibrillation), CAD, CHF, HTN, Hypercholesterolemia, NIDDM, [place], Renal failure and Other (Carotid stenosis, gout, BPH, recurrent epistaxis)
ED Past Surgical History: Cardiac (CABG, PTCA with stent), Cholecystectomy and Other (Carotid endarterectomy)
Social History
Tobacco: Smoker
Alcohol: None
Drug: None
Personal:
Living: with family
Employment: Retired
Family History
Family History: Other (Noncontributory)
Phy Exam
<Wesley Parham PA-C - Last Filed: 06/01/25 17:51>
Physical Exam
Physical Exam:
General: Well-developed male no acute respiratory distress
HEENT: NC/AT
Heart: RRR, No murmurs
Lungs: Slightly coarse bilaterally
Ext: no cyanosis
Skin: warm, no rash
: swollen penis with blood at the meatus No obvious signs of trauma externally
Neuro: alert and oriented.
Course
<Wesley Parham PA-C - Last Filed: 06/01/25 17:51>
Orders/Labs/Results
Orders:
Orders
06/01/25 14:04
CR Chest Portable - 1 View Urgent
Comment:
Reason For Exam: cough, hypoxic
Reason Study Needs to be Portable: Patient Unstable
06/01/25 14:33
COVID-19 Antigen Urgent
Source: Nasal Swab
Complete Blood Count/With Diff Urgent
Comprehensive Metabolic Panel Urgent
PTT Urgent
Prothrombin Time Urgent
06/01/25 14:36
Lidocaine 2% [Lidocaine Uro-Jet 2%] 1 syringe .ROUTE .[facility]
06/01/25 14:47
NT-proBNP Urgent
Urinalysis Reflex To Culture Urgent
Date Specimen was Collected: 06/01/25
Time Specimen was Collected: 14:45
Urine Microscopic Reflex Cult Urgent
Influenza A+B Rapid Molecular Urgent
KELLY Source: Nasal Swab
Specimen Description:
06/01/25 17:47
Oseltamivir Phosphate [Tamiflu] 75 mg PO NOW STA
Abnormal Lab Results
06/01/25 06/01/25
14:33 14:47
RBC 2.61 L 10^6/uL
(4.70-6.10)
Hgb 8.6 L g/dL
(13.0-18.0)
Hct 27.3 L %
(39.0-52.0)
MCV 104.6 H fL
(80.0-94.0)
MCH 33.0 H pg
(27.0-31.0)
MCHC 31.5 L g/dL
(33.0-37.0)
RDW 16.7 H %
(11.5-14.5)
Absolute Lymphs (auto) 0.8 L 10^3/uL
(1.2-3.4)
Immature Gran % 0.6 H %
(0-0.5)
Lymphocytes % 14.3 L %
(20.5-51.1)
PT 18.5 H Sec
(11.4-14.6)
APTT 35.4 H Sec
(23.4-35.0)
Carbon Dioxide 32 H mmol/L
(22-30)
BUN 56 H mg/dl
(9-20)
Creatinine 1.9 H mg/dL
(0.7-1.3)
Glucose 171 H mg/dl
(70-99)
Total Protein 5.9 L g/dl
(6.3-8.2)
Albumin 2.8 L g/dl
(3.5-5.0)
Ur Occult Blood Reflex 4+ A
(Negative)
Urine RBC 26-30 A /HPF
(0-2)
Urine Bacteria (Reflex) Few A
(Negative)
Urine Albumin (Reflex) 1+ A
(Neg - Trace)
06/01/25 14:33
06/01/25 14:33
Vital Signs
Initial and Last Documented VS:
Initial Vital Signs
Temp Pulse Resp BP Pulse Ox
98.4 F 69 16 141/62 98
06/01/25 13:41 06/01/25 13:41 06/01/25 13:41 06/01/25 13:41 06/01/25 13:41
Last Documented Vital Signs
Temp Pulse Resp BP Pulse Ox
98.4 F 75 21 134/61 98
06/01/25 13:41 06/01/25 17:15 06/01/25 17:15 06/01/25 17:00 06/01/25 17:15
<Robert Joseph MD - Last Filed: 06/01/25 17:12>
Orders/Labs/Results
Orders:
Orders
06/01/25 14:04
CR Chest Portable - 1 View Urgent
Comment:
Reason For Exam: cough, hypoxic
Reason Study Needs to be Portable: Patient Unstable
06/01/25 14:33
COVID-19 Antigen Urgent
Source: Nasal Swab
Complete Blood Count/With Diff Urgent
Comprehensive Metabolic Panel Urgent
PTT Urgent
Prothrombin Time Urgent
06/01/25 14:36
Lidocaine 2% [Lidocaine Uro-Jet 2%] 1 syringe .ROUTE .[facility]
06/01/25 14:47
NT-proBNP Urgent
Urinalysis Reflex To Culture Urgent
Date Specimen was Collected: 06/01/25
Time Specimen was Collected: 14:45
Urine Microscopic Reflex Cult Urgent
Influenza A+B Rapid Molecular Urgent
KELLY Source: Nasal Swab
Specimen Description:
06/01/25 17:47
Oseltamivir Phosphate [Tamiflu] 75 mg PO NOW STA
Abnormal Lab Results
06/01/25 06/01/25
14:33 14:47
RBC 2.61 L 10^6/uL
(4.70-6.10)
Hgb 8.6 L g/dL
(13.0-18.0)
Hct 27.3 L %
(39.0-52.0)
MCV 104.6 H fL
(80.0-94.0)
MCH 33.0 H pg
(27.0-31.0)
MCHC 31.5 L g/dL
(33.0-37.0)
RDW 16.7 H %
(11.5-14.5)
Absolute Lymphs (auto) 0.8 L 10^3/uL
(1.2-3.4)
Immature Gran % 0.6 H %
(0-0.5)
Lymphocytes % 14.3 L %
(20.5-51.1)
PT 18.5 H Sec
(11.4-14.6)
APTT 35.4 H Sec
(23.4-35.0)
Carbon Dioxide 32 H mmol/L
(22-30)
BUN 56 H mg/dl
(9-20)
Creatinine 1.9 H mg/dL
(0.7-1.3)
Glucose 171 H mg/dl
(70-99)
Total Protein 5.9 L g/dl
(6.3-8.2)
Albumin 2.8 L g/dl
(3.5-5.0)
Ur Occult Blood Reflex 4+ A
(Negative)
Urine RBC 26-30 A /HPF
(0-2)
Urine Bacteria (Reflex) Few A
(Negative)
Urine Albumin (Reflex) 1+ A
(Neg - Trace)
06/01/25 14:33
06/01/25 14:33
Vital Signs
Initial and Last Documented VS:
Initial Vital Signs
Temp Pulse Resp BP Pulse Ox
98.4 F 69 16 141/62 98
06/01/25 13:41 06/01/25 13:41 06/01/25 13:41 06/01/25 13:41 06/01/25 13:41
Last Documented Vital Signs
Temp Pulse Resp BP Pulse Ox
98.4 F 75 21 134/61 98
06/01/25 13:41 06/01/25 17:15 06/01/25 17:15 06/01/25 17:00 06/01/25 17:15
<Wesley Parham PA-C - Last Filed: 06/01/25 17:51>
MDM/Problems Addressed
Differential Diagnosis Includes:
Patient presents from [place] [facility] for chief complaint of new hematuria onset today. He is on Eliquis. Uncertain whether there was any trauma. Will check urinalysis check labs.
<Wesley Parham PA-C - Last Filed: 06/01/25 17:51>
*Pulse Oximetry
SaO2: 98
Nasal Cannula flow liters per minute: 3
Patient hypoxic: no
*Critical Care Note
Total Time (30-74mins, 75-104mins- exclusive of procedures): Not Applicable
<Wesley Parham PA-C - Last Filed: 06/01/25 17:51>
Update Note
Update Note:
Patient tested positive for influenza B. Upon straight cathing the patient, the urine from the bladder was clear. I believe there was potentially some trauma to the urethra where the blood was coming from as the penis was swollen and somewhat
sensitive. Chest x-ray shows a moderate pleural effusion although when compared to yesterday's chest x-ray there is no significant obvious difference. Patient has been requiring oxygen intermittently since his hospital stay and was requiring
oxygen at [facility]. Lengthy discussion was had with patient and and offered admission however they would prefer to go back to [place] as he has been in the hospital for quite some time. Patient was started on Tamiflu and will be advised to
return for any worsening symptoms but was discharged back to [facility]
ED Attending Note
<Wesley Parham PA-C - Last Filed: 06/01/25 17:51>
-
Portions of this chart may have been created with voice recognition software.� Occasional wrong word or��sound alike� substitutions may have occurred due to the inherent limitations of voice recognition software.
<Robert Joseph MD - Last Filed: 06/01/25 17:12>
ED Attending Note
Patient seen and examined by attending physician: Yes
I performed the substantive portion of visit, reviewed & personally made and approve the management plan that is documented in note by myself or BARBRA.: Yes
ED Attending Note:
Patient was sent for possible hematuria. Denies acute symptoms that have progressed in the last 24 hours. Recent complicated hospital course with grade 3 kidney disease, A-fib, CVA. He has had thoracentesis to the right side previously. He said
renal issues related to diuresis. Patient states he feels at baseline. On exam patient is nontoxic in no distress. He is on 3 L with a pulse ox 90%. He is in no respite
Distress. A few rhonchi. Abdomen is nontender. Remedies with mild edema that has a chronic appearance. Mild lower extremity hyperpigmentation changes. Small amount of blood on his diaper. No blood from the urethra.
Impression is bleeding that appears more external. That is the main reason he came to the ER. No sign of UTI. Trace blood in the urine. Hemoglobin is stable. Creatinine is stable. He is in no respiratory distress. He has his ongoing right
pleural effusion that has been there and essentially unchanged from the day before. His weight has remained stable. I do not believe the 67 kg weight this morning when his weight yesterday was 75.01. Is 75.2 male. We did offer admission given
the episodes of hypoxia possible slow progressing pleural effusion and possible mild CHF. Not unreasonable to continue managing this at [facility] given that he has had the same oxygen needs that he had in the hospital and the x-ray does not. Any
difference significantly to me. In addition he feels no different. They would prefer to continue outpatient management. This is not unreasonable. Will start Tamiflu for the flu, monitor his pulse ox weeks and oxygen needs for further chest x-ray
or eventual thoracentesis
Discharge Plan
Departure
Patient Disposition: Acute Rehab Facility
Date of Disposition: 06/01/25
Time of Disposition: 17:49
Patient with high blood pressure during this ER visit?: No
Discharge Problem:
Influenza B
Prescriptions:
New
oseltamivir [Tamiflu] 75 mg capsule
75 mg PO BID Qty: 10 0RF
No Action
cyanocobalamin (vitamin B-12) 1,000 MCG tablet
1,000 mcg PO DAILY
atorvastatin 80 mg Tablet
80 mg PO DAILY
potassium chloride 20 mEq tablet,ER particles/crystals
20 meq PO BID
insulin glargine [Lantus Solostar U-100 Insulin] 100 unit/mL (3 mL) insulin pen
14 unit SC HS
insulin aspart U-100 [Novolog FlexPen U-100 Insulin] 100 unit/mL (3 mL) insulin pen
3 unit SC AC Qty: 15 0RF
therapeutic multivitamin Tablet
1 tab PO DAILY
omeprazole 40 mg Capsule,Delayed Release(Dr/Ec)
40 mg PO BID
Fruit and Vegetable Daily 5-6-150 mg Capsule
1 cap PO DAILY
Eliquis 5 mg Tablet
5 mg PO BID
brinzolamide 1 % Drops,Suspension
1 drp BOTH EYES BID Qty: 0
midodrine 2.5 mg Tablet
2.5 mg PO BID 90 Days Qty: 180 0RF
metoprolol succinate 25 mg Tablet Extended Release 24 Hr
12.5 mg PO DAILY 90 Days Qty: 45 0RF
Rx Instructions:
for 90 days
nicotine 14 mg/24 hr Patch 24 Hour
14 mg transdermal DAILY PRN (Reason: nicotine cravings) Qty: 28 0RF
Rx Instructions:
use while in acute rehab as need for cravings
guaifenesin 100 mg/5 mL Liquid
200 mg PO Q4HPRN PRN (Reason: cough) 30 Days Qty: 1500 0RF
Rx Instructions:
for 30 days
acetaminophen 325 mg Tablet
650 mg PO Q4HPRN PRN (Reason: GARCIA, mild pain, or temp >100.4F) Qty: 60 0RF
torsemide 40 mg tablet
40 mg PO DAILY 60 Days Qty: 60 0RF
Rx Instructions:
for 60 days
allopurinol 100 mg Tablet
100 mg PO DAILY 90 Days Qty: 90 0RF
Rx Instructions:
for 90 days
Referrals:
UNKNOWN - PT DOES,NOT KNOW [Family Provider]
Activity Restrictions/Additional Instructions:
It is likely the blood came from the urethra from minor trauma. The urine in the bladder was clear. Patient tested positive for influenza B. Administer oxygen as needed return if needed
Interventions
Interventions:
*Risk Screen - Suicide Last Done: 06/01/25 13:41
*General Assessment Last Done: 06/01/25 14:30
*Neglect/Abuse Screening Last Done: 06/01/25 13:41
*ED- Fall Risk Assessment Last Done: 06/01/25 14:30
*ED COVID-19 Vaccine History Last Done: 06/01/25 14:30
ED-Male Genitourinary Assessment Last Done: 06/01/25 14:04
Discharge Date and Time
Print Language: MOZAMBICAN
[2025-06-01 14:43] LABS: Hematocrit 27.3 % (39.0-52.0); Hemoglobin 8.6 g/dL (13.0-18.0); Mean Corp Hgb Conc. 31.5 g/dL (33.0-37.0); Mean Corpuscular Volume 104.6 fL (80.0-94.0); Nucleated Red Blood Cells % 0 % (-); Platelet Count 135 10^3/uL (130-400); Red Cell Dist. Width 16.7 % (11.5-14.5)
[2025-06-01 14:53] LABS: INR 1.51; PT 18.5 Sec (11.4-14.6)
[2025-06-01 14:54] LABS: ALT (SGPT) 17 U/L (0-50); APTT 35.4 Sec (23.4-35.0); AST (SGOT) 30 U/L (17-59); Albumin 2.8 g/dl (3.5-5.0); Alkaline Phosphatase 104 U/L (38-126); Blood Urea Nitrogen 56 mg/dl (9-20); Calcium 8.8 mg/dl (8.4-10.2); Carbon Dioxide 32 mmol/L (22-30); Chloride 104 mmol/L (98-107); Glucose 171 mg/dl (70-99); Potassium 4.4 mmol/L (3.5-5.1); Sodium 139 mmol/L (135-145); Total Protein 5.9 g/dl (6.3-8.2); eGFR 35.44
[2025-06-01 14:55] LABS: COVID-19 Antigen Negative (Negative)
[2025-06-01 15:00] VITALS: BP 125/67
[2025-06-01 15:15] LABS: Urine Character Slightly Cloudy (Clear)
[2025-06-01 15:34] LABS: Urine Squamous Cell 0-2 /LPF (Few)
[2025-06-01 15:36] LABS: Urine Red Blood Cell 26-30 /HPF (0-2); Urine White Cell 0-2 /HPF (0-5)
[2025-06-01 16:00] VITALS: BP 112/69
[2025-06-01 17:00] VITALS: BP 134/61
[2025-06-01] MEDS: TAMIFLU 75 MG PO (17:54)
== END 2025-06-01 18:09 ==
LOC: EMR 13:37
PROVIDERS: Physician Assistant; EMERGENCY PHYSICIAN Emergency Medicine
DX: J10.1 Influenza due to other identified influenza virus with other respiratory manifestations (principal); I48.91 Unspecified atrial fibrillation; I25.10 Atherosclerotic heart disease of native coronary artery without angina pectoris; I11.0 Hypertensive heart disease with heart failure; I50.9 Heart failure, unspecified; E78.00 Pure hypercholesterolemia, unspecified; E11.9 Type 2 diabetes mellitus without complications; I25.2 Old myocardial infarction; I65.29 Occlusion and stenosis of unspecified carotid artery; N40.0 Benign prostatic hyperplasia without lower urinary tract symptoms; F17.200 Nicotine dependence, unspecified, uncomplicated; Z79.01 Long term (current) use of anticoagulants; Z90.49 Acquired absence of other specified parts of digestive tract; Z95.1 Presence of aortocoronary bypass graft; Z95.5 Presence of coronary angioplasty implant and graft
CPT/HCPCS: 99283; 71045; 80053; 81003; 81015; 83880; 85025; 85610; 85730; 87502; 87811

== ENCOUNTER 2025-06-02 22:27 | Emergency (ER) | payer MEDICARE, BC, SELFPAY ==
[2025-06-02 22:28] VITALS: BMI 27.7
[2025-06-02 22:41] VITALS: BP 118/59
[2025-06-02 23:00] VITALS: BP 117/67
[2025-06-02 23:04] LABS: Hematocrit 26.2 % (39.0-52.0); Hemoglobin 8.4 g/dL (13.0-18.0); Mean Corp Hgb Conc. 32.1 g/dL (33.0-37.0); Mean Corpuscular Volume 105.6 fL (80.0-94.0); Nucleated Red Blood Cells % 0 % (-); Platelet Count 127 10^3/uL (130-400); Red Cell Dist. Width 16.5 % (11.5-14.5); Urine Character Clear (Clear)
[2025-06-02 23:16] LABS: ALT (SGPT) 19 U/L (0-50); AST (SGOT) 32 U/L (17-59); Albumin 2.8 g/dl (3.5-5.0); Alkaline Phosphatase 98 U/L (38-126); Blood Urea Nitrogen 66 mg/dl (9-20); Calcium 8.8 mg/dl (8.4-10.2); Carbon Dioxide 33 mmol/L (22-30); Chloride 105 mmol/L (98-107); Estimated Creatinine Clearance 33 ml/min; Glucose 118 mg/dl (70-99); Potassium 4.3 mmol/L (3.5-5.1); Sodium 139 mmol/L (135-145); Total Protein 5.8 g/dl (6.3-8.2); eGFR 43.56
[2025-06-03] VITALS: BP 135/57
--- NOTE | 2025-06-03 00:44 | ED.GENMED ---
History of Present Illness
General
Chief Complaint: Change in Mental Status
Source: patient
Exam Limitations: none
Time Seen by Provider: 06/03/25 00:36
Nursing documentation reviewed up to this point in time: agreed with
History of Present Illness
History of Present Illness:
Patient is a 79-year-[facility]. 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 difficile currently flu positive, sent from [facility]
for change of mental status.
Both and son at bedside reports patient is at his baseline. He is not confused. Patient is awake and alert he is oriented x 3 follows all commands and is not confused and has no complaints. Pt has chronic redness /discoloration to his legs
and reports this is not new.
Pt apparently had chest xray this am. report reviewed by me shows mod pleural effusion improved and findings suggesting moderate right lower lobe and left lower lobe pneumonia. Pt however denies cough, no complaints of shortness of breath. Pt is
on Chronic O2 at [facility] this is not new.
Past History
Past History
ED Past Medical History: Arrthythmia (atrial fibrillation), CAD, CHF, HTN, Hypercholesterolemia, NIDDM, [place], Renal failure and Other (Carotid stenosis, gout, BPH, recurrent epistaxis)
ED Past Surgical History: Cardiac (CABG, PTCA with stent), Cholecystectomy and Other (Carotid endarterectomy)
Social History
Tobacco: Smoker
Alcohol: None
Drug: None
Personal:
Living: with family
Employment: Retired
Family History
Family History: Other (Noncontributory)
Phy Exam
General Physical Exam
General Presentation: no apparent distress
General age: appears stated age
General Skin: warm and dry
General Habitus: elderly
General Mental: alert
General Hydration: appears well hydrated
Cardiovascular Exam
Cardiovascular Exam: regular rate/rhythm, no murmur and normal peripheral pulses
Pulmonary Exam
Pulmonary Exam: lungs clear and no respiratory distress
Course
Orders/Labs/Results
Orders:
Orders
06/02/25 22:53
CBC/With Diff [Complete Blood Count/With Diff] Urgent
Comprehensive Metabolic Panel Urgent
Urinalysis Reflex To Culture Urgent
Date Specimen was Collected: 06/02/25
Time Specimen was Collected: 22:52
Urine Microscopic Reflex Cult Urgent
Urine Culture Urgent
KELLY Source: U
Specimen Description:
Date Specimen was Collected: 06/02/25
Time Specimen was Collected: 22:52
Abnormal Lab Results
06/02/25
22:53
RBC 2.48 L 10^6/uL
(4.70-6.10)
Hgb 8.4 L g/dL
(13.0-18.0)
Hct 26.2 L %
(39.0-52.0)
MCV 105.6 H fL
(80.0-94.0)
MCH 33.9 H pg
(27.0-31.0)
MCHC 32.1 L g/dL
(33.0-37.0)
RDW 16.5 H %
(11.5-14.5)
Plt Count 127 L 10^3/uL
(130-400)
Absolute Lymphs (auto) 1.1 L 10^3/uL
(1.2-3.4)
Monocytes % 12.0 H %
(1.7-9.3)
Carbon Dioxide 33 H mmol/L
(22-30)
BUN 66 H mg/dl
(9-20)
Creatinine 1.6 H mg/dL
(0.7-1.3)
Glucose 118 H mg/dl
(70-99)
Total Protein 5.8 L g/dl
(6.3-8.2)
Albumin 2.8 L g/dl
(3.5-5.0)
Ur Occult Blood Reflex 3+ A
(Negative)
Leukocyte Esterase Rfl 2+ A
(Negative)
Urine RBC 11-15 A /HPF
(0-2)
Urine Bacteria (Reflex) Few A
(Negative)
06/02/25 22:53
06/02/25 22:53
Vital Signs
Initial and Last Documented VS:
Initial Vital Signs
Pulse
131
06/02/25 22:33
Last Documented Vital Signs
Temp Pulse Resp BP Pulse Ox
97.9 F 82 7 135/57 100
06/02/25 22:41 06/03/25 00:30 06/03/25 00:30 06/03/25 00:00 06/03/25 01:00
Scada Engineer consulted with Physician
Scada Engineer consulted with physician?: Yes
Name of Physician Consulted: darrell
MDM/Problems Addressed
MDM/Problems Addressed:
Patient is a 79-year-old male with significant past medical history sent from office for evaluation. There was a questionable change in mental status and nurse apparently noticed increasing redness of legs bilaterally. Patient presents awake alert
in no acute distress he is on chronic oxygen however denies any shortness of breath or new cough. He currently is flu positive.
patient's family including and son at bedside reports they just visited patient this morning and he is at baseline in no acute distress. Patient is awake alert he is oriented he is not confused he follows commands. He has no complaints. I
did speak with the nurse at loss who mentions that patient also had a chest x-ray which was concerning for questionable pneumonia. Patient however with no clinical symptoms presently and these findings on x-ray are not new. Patient is currently
getting vancomycin for C. difficile and given the risks versus benefits but hold off on additional antibiotics as patient has no complaints. Case reviewed with ED physician .
Patient is afebrile with a normal white count stable hemoglobin of 8.4 stable renal function, no evidence of UTI (patient denies any symptoms ) who patient with stable vital signs. Initial heart rate was documented at 131 during triage vital signs
however in review of monitor this was artifact and patient's heart rate was not actually 131. His heart rate has been in the 70s here
patient stable for discharge charged back to [facility]
Chronic conditions affecting care:
Patient loss for recent diagnosis of stroke
*Pulse Oximetry
SaO2: 99
Nasal Cannula flow liters per minute: 3
Patient hypoxic: no
*Critical Care Note
Total Time (30-74mins, 75-104mins- exclusive of procedures): Not Applicable
ED Attending Note
-
Portions of this chart may have been created with voice recognition software.� Occasional wrong word or��sound alike� substitutions may have occurred due to the inherent limitations of voice recognition software.
Discharge Plan
Departure
Patient Disposition: Other
Date of Disposition: 06/03/25
Time of Disposition: 01:33
Presentation/result/management discussed w/ accepting MD/DO: Hospitalist
Patient with high blood pressure during this ER visit?: No
Condition: Fair
Covid-19: Not Applicable
Discharge Problem:
Encounter for medical assessment
Prescriptions:
No Action
cyanocobalamin (vitamin B-12) 1,000 MCG tablet
1,000 mcg PO DAILY
atorvastatin 80 mg Tablet
80 mg PO DAILY
potassium chloride 20 mEq tablet,ER particles/crystals
20 meq PO BID
insulin glargine [Lantus Solostar U-100 Insulin] 100 unit/mL (3 mL) insulin pen
14 unit SC HS
insulin aspart U-100 [Novolog FlexPen U-100 Insulin] 100 unit/mL (3 mL) insulin pen
3 unit SC AC Qty: 15 0RF
therapeutic multivitamin Tablet
1 tab PO DAILY
omeprazole 40 mg Capsule,Delayed Release(Dr/Ec)
40 mg PO BID
Fruit and Vegetable Daily 5-6-150 mg Capsule
1 cap PO DAILY
Eliquis 5 mg Tablet
5 mg PO BID
brinzolamide 1 % Drops,Suspension
1 drp BOTH EYES BID Qty: 0
midodrine 2.5 mg Tablet
2.5 mg PO BID 90 Days Qty: 180 0RF
metoprolol succinate 25 mg Tablet Extended Release 24 Hr
12.5 mg PO DAILY 90 Days Qty: 45 0RF
Rx Instructions:
for 90 days
nicotine 14 mg/24 hr Patch 24 Hour
14 mg transdermal DAILY PRN (Reason: nicotine cravings) Qty: 28 0RF
Rx Instructions:
use while in acute rehab as need for cravings
guaifenesin 100 mg/5 mL Liquid
200 mg PO Q4HPRN PRN (Reason: cough) 30 Days Qty: 1500 0RF
Rx Instructions:
for 30 days
acetaminophen 325 mg Tablet
650 mg PO Q4HPRN PRN (Reason: GARCIA, mild pain, or temp >100.4F) Qty: 60 0RF
torsemide 40 mg tablet
40 mg PO DAILY 60 Days Qty: 60 0RF
Rx Instructions:
for 60 days
allopurinol 100 mg Tablet
100 mg PO DAILY 90 Days Qty: 90 0RF
Rx Instructions:
for 90 days
oseltamivir [Tamiflu] 75 mg capsule
75 mg PO BID Qty: 10 0RF
Rx Instructions:
x 4 doses
zolpidem 5 mg Tablet
5 mg PO HS PRN (Reason: insomnia)
Referrals:
UNKNOWN - PT DOES,NOT KNOW [Family Provider]
Activity Restrictions/Additional Instructions:
Patient has no complaints here in the ER and is awake and alert and oriented with no neurological deficits.
He is afebrile with a normal white count we will hold off on any additional antibiotics.
Interventions
Interventions:
*Risk Screen - Suicide Last Done: 06/02/25 23:09
*General Assessment Last Done: 06/02/25 23:09
*Neglect/Abuse Screening Last Done: 06/02/25 23:09
*ED- Fall Risk Assessment Last Done: 06/02/25 23:09
*ED COVID-19 Vaccine History Last Done: 06/02/25 23:09
ED- Neurological Assessment Last Done: 06/02/25 23:09
Discharge Date and Time
Print Language: VENEZUELAN
[2025-06-03 01:00] VITALS: BP 118/77
[2025-06-03 02:00] VITALS: BP 140/66
[2025-06-03 06:07] LABS: Glucose - Point of Care 95 mg/dl (70-99)
[2025-06-03 07:45] LABS: Glucose - Point of Care 84 mg/dl (70-99)
== END 2025-06-03 02:40 | disposition other institution (70) ==
LOC: EMR 22:27
PROVIDERS: EMERGENCY PHYSICIAN Emergency Medicine
DX: R41.82 Altered mental status, unspecified (principal); E11.22 Type 2 diabetes mellitus with diabetic chronic kidney disease; I13.2 Hypertensive heart and chronic kidney disease with heart failure and with stage 5 chronic kidney disease, or end stage renal disease; I50.9 Heart failure, unspecified; N18.6 End stage renal disease; Z99.2 Dependence on renal dialysis; E78.00 Pure hypercholesterolemia, unspecified; F17.200 Nicotine dependence, unspecified, uncomplicated; H40.9 Unspecified glaucoma; I25.10 Atherosclerotic heart disease of native coronary artery without angina pectoris; I48.91 Unspecified atrial fibrillation; J44.9 Chronic obstructive pulmonary disease, unspecified; Z79.01 Long term (current) use of anticoagulants; Z86.73 Personal history of transient ischemic attack (TIA), and cerebral infarction without residual deficits; Z95.2 Presence of prosthetic heart valve; Z90.49 Acquired absence of other specified parts of digestive tract; Z99.81 Dependence on supplemental oxygen; Z95.5 Presence of coronary angioplasty implant and graft; Z95.1 Presence of aortocoronary bypass graft
CPT/HCPCS: 99283; 80053; 81003; 81015; 82962; 85025; 87086

== ENCOUNTER → 2025-06-28 13:50 | Outpatient (REF) | payer MEDICARE, BC, SELFPAY ==
[2025-06-28 17:43] LABS: Hematocrit 30.7 % (39.0-52.0); Hemoglobin 9.6 g/dL (13.0-18.0); Mean Corp Hgb Conc. 31.3 g/dL (33.0-37.0); Mean Corpuscular Volume 104.4 fL (80.0-94.0); Nucleated Red Blood Cells % 0 % (-); Platelet Count 127 10^3/uL (130-400); Red Cell Dist. Width 15.9 % (11.5-14.5)
[2025-06-28 18:04] LABS: Blood Urea Nitrogen 35 mg/dl (9-20); Calcium 8.5 mg/dl (8.4-10.2); Carbon Dioxide 27 mmol/L (22-30); Chloride 105 mmol/L (98-107); Glucose 146 mg/dl (70-99); Iron 68 ug/dl (49-181); Potassium 4.2 mmol/L (3.5-5.1); Sodium 137 mmol/L (135-145); eGFR 37.82
[2025-06-28 18:15] LABS: Total Iron Binding Capacity 247 ug/dl (261-462)
== END ==
LOC: CLAB 13:50
PROVIDERS: ATTENDING PHYSICIAN Family Medicine
DX: I30.0 Acute nonspecific idiopathic pericarditis (principal); D62 Acute posthemorrhagic anemia
CPT/HCPCS: 80048; 83540; 83550; 85025

== ENCOUNTER 2025-07-10 12:20 | Inpatient (IN) | payer MEDICARE, BC, SELFPAY ==
[2025-07-10] VITALS (12 sets, daily range): BP systolic 116–144; BP diastolic 56–86; PULSE 70; O2SAT 97; BMI 27.8; BMI 27.9
[2025-07-10 08:39] LABS: Hematocrit 32.9 % (39.0-52.0); Hemoglobin 10.2 g/dL (13.0-18.0); Mean Corp Hgb Conc. 31.0 g/dL (33.0-37.0); Mean Corpuscular Volume 102.5 fL (80.0-94.0); Nucleated Red Blood Cells % 0 % (-); Platelet Count 191 10^3/uL (130-400); Red Cell Dist. Width 15.0 % (11.5-14.5)
[2025-07-10 09:01] LABS: ALT (SGPT) 18 U/L (0-50); AST (SGOT) 24 U/L (17-59); Albumin 3.3 g/dl (3.5-5.0); Alkaline Phosphatase 181 U/L (38-126); Blood Urea Nitrogen 56 mg/dl (9-20); Calcium 9.0 mg/dl (8.4-10.2); Carbon Dioxide 32 mmol/L (22-30); Chloride 98 mmol/L (98-107); Estimated Creatinine Clearance 24 ml/min; Glucose 122 mg/dl (70-99); Magnesium 1.3 mg/dl (1.6-2.3); Potassium 3.6 mmol/L (3.5-5.1); Sodium 136 mmol/L (135-145); Total Protein 7.1 g/dl (6.3-8.2); eGFR 28.18
--- NOTE | 2025-07-10 09:02 | ED.GENMED ---
History of Present Illness
<Robert Rodriguez MD, Resident - Last Filed: 07/10/25 13:22>
General
Chief Complaint: Breathing Problem
Source: patient and significant other
Time Seen by Provider: 07/10/25 08:35
History of Present Illness
History of Present Illness:
Patient is a 70 PMH CAD s/p bypass and stenting, COPD, HTN, HLD, IDDM, HFrEF, A-fib, renal failure, gastric AVMs, and recent ischemic stroke who presents to the [facility] ED for hypoxia and shortness of breath. Patient is typically on 2 L of
oxygen at home with saturations around 90. Patient has been experiencing gradual worsening of his breathing, with desaturations to the low 80s with movement since Wednesday. A visiting nurse 'did not like what she was hearing' and recommended he see
a doctor. Patient and his called his PCP (Dr. Eason) yesterday evening, who recommended the patient present to the ED for additional evaluation. Patient is mildly short of breath and has a chronic cough. Patient also has bilateral lower
extremity swelling that is actually slightly better than his baseline. Denies chest pain, diaphoresis, palpitations, N/V/D, abdominal pain, F/F/C, or recent illness. Patient has been frequently hospitalized recently, including for fluid overload
in April and TAVR and stroke in May. Patient was subsequently at [facility] for approximately 3 weeks after his stroke, where he was found to have a pleural effusion and underwent thoracentesis (06/20/2025). Patient last took his Eliquis
yesterday morning. Patient's most recent echo showed an LVEF of 25-30% in early May. Patient's balance wheel facer is Dr. Sutton.
Past History
<Robert Rodriguez MD, Resident - Last Filed: 07/10/25 13:22>
Past History
ED Past Medical History: Arrthythmia (atrial fibrillation), CAD, CHF, HTN, Hypercholesterolemia, NIDDM, UT, Renal failure and Other (Carotid stenosis, gout, BPH, recurrent epistaxis)
ED Past Surgical History: Cardiac (CABG, PTCA with stent, TAVR), Cholecystectomy and Other (Carotid endarterectomy)
Social History
Tobacco: Smoker (Quit in March)
Alcohol: None
Drug: None
Personal:
Living: with family
Employment: Retired
Family History
Family History: Other (Noncontributory)
Review of Systems
<Robert Rodriguez MD, Resident - Last Filed: 07/10/25 13:22>
Review of Systems
Constitutional: Denies fever, fatigue or chills
Respiratory: Reports cough and trouble breathing (Mild)
Cardiac: Denies chest pain, diaphoresis or palpitations
ABD/GI: Denies abdominal pain, nausea, vomiting or diarrhea
: Reports frequency
Phy Exam
<Robert Rodriguez MD, Resident - Last Filed: 07/10/25 13:22>
Physical Exam
Physical Exam:
General: Appears tired. NAD. Communicative with some effort.
CV: RRR. S1, S2 noted. No M/R/G. 3+ LE pitting edema to above the knee. No JVD appreciated.
Pulm: Mild diffuse wheezing. Lung sounds decreased at the bases. No cyanosis. No crackles.
GI: Soft, nontender. Nondistended.
Neuro: Mild R facial droop and dysarthria, present since stroke in May. A&O x 3.
General Physical Exam
General Presentation: no apparent distress
Scores
<Robert Rodriguez MD, Resident - Last Filed: 07/10/25 13:22>
Heart Failure Risk
Heart Failure Risk Score: Yes
History of Stroke or TIA: No
History of intubation for respiratory distress: No
Heart rate on ED arrival >/= 110: No
SaO2 <90% on arrival on room air: No
HR >/=110 during 3min walk test (or too ill to perform test): No
ECG has acute ischemic changes: No
Urea >/=12mmol/L (BUN 33.6mg/dL): Yes
Serum CO2>/=35mmol/L: No
Troponin I or T elevated to UT Level (0.4mg/dL): No
NT-proBNP >/=5,000ng/L (5,000pg/ml): Yes
HF Risk Score: 2
Admission Status: MEDIUM RISK 9.2% Consider observation or discharge to home with homecare & f/u visit to PCP/Bilingual Patient Support Caseworker, or SNF for treatment
Course
<Robert Rodriguez MD, Resident - Last Filed: 07/10/25 13:22>
Orders/Labs/Results
Orders:
Orders
07/10/25 08:19
Electrocardiogram (*1) Urgent
Reason for Study: Shortness of Breath
CXR2 [CR Chest - 2 Views ] Urgent
Comment:
Reason For Exam: shortness of breath
07/10/25 08:20
EKG- Treatment ONCE
07/10/25 08:27
Complete Blood Count/With Diff Urgent
Comprehensive Metabolic Panel Urgent
Magnesium Urgent
NT-proBNP Urgent
Troponin I Urgent
07/10/25 09:44
Furosemide [Lasix] 80 mg IV NOW STA
07/10/25 09:45
Potassium Chloride [KCl] 20 meq PO NOW STA
07/10/25 Lunch
IDDSI 6 - Soft & Bite Sized
07/10/25 11:10
Admit/Transfer Patient As Directed
Co-Sign Provider:
Level of Care: Inpatient admission
Assign to:: Telemetry
Physician / Group: Hospitalist
Diagnosis: Acute exacerbation of HFpEF
Reason for Telemetry: Arrhythmia
Date to Stop Telemetry: 07/13/25
Time to Stop Telemetry: 11:00
Reason for Hospitalization: Acute exacerbation of HFpEF
Expected length of stay greater than two midnights?: Yes
ELOS- Estimated Length of Stay in days: 2
I certify the patient meets the requirements for IP care: Yes
07/10/25 11:12
PRN Pain Medication Management As Directed
May give lesser potent ordered pain med per pt: Yes
preference::
Protocol:: Medication orders for pain may be administered in a
manner that supports deferring to patient preference
when the pt is:
- Requesting an ordered lesser potent pain medication.
Least to most potent pain medications are defined
as: acetaminophen < NSAID < tramadol < opioids
(morphine, oxycodone, hydromorphone).
- Requesting a lesser dose of the same medication IF
ORDERED.
- Requesting a less intrusive route of administration
if both routes are prescribed by the provider (PO <
IV).
07/10/25 11:18
Code Status As Directed
Resuscitation Status: Full Code
07/10/25 11:32
HF DIETARY CONSULT Routine
07/13/25 11:00
DC Protocol for Telemetry ONCE
Abnormal Lab Results
07/10/25
08:27
RBC 3.21 L 10^6/uL
(4.70-6.10)
Hgb 10.2 L g/dL
(13.0-18.0)
Hct 32.9 L %
(39.0-52.0)
MCV 102.5 H fL
(80.0-94.0)
MCH 31.8 H pg
(27.0-31.0)
MCHC 31.0 L g/dL
(33.0-37.0)
RDW 15.0 H %
(11.5-14.5)
Absolute Lymphs (auto) 0.8 L 10^3/uL
(1.2-3.4)
Absolute Monos (auto) 0.8 H 10^3/uL
(0.1-0.6)
Lymphocytes % 12.9 L %
(20.5-51.1)
Monocytes % 11.9 H %
(1.7-9.3)
Carbon Dioxide 32 H mmol/L
(22-30)
BUN 56 H mg/dl
(9-20)
Creatinine 2.3 H mg/dL
(0.7-1.3)
Glucose 122 H mg/dl
(70-99)
Magnesium 1.3 L mg/dl
(1.6-2.3)
Alkaline Phosphatase 181 H U/L
(38-126)
Troponin I 0.073 H* ng/ml
Albumin 3.3 L g/dl
(3.5-5.0)
07/10/25 08:27
07/10/25 08:27
Vital Signs
Initial and Last Documented VS:
Initial Vital Signs
Temp Pulse Resp BP Pulse Ox
97.6 F 75 20 144/56 90
07/10/25 07:34 07/10/25 07:34 07/10/25 07:34 07/10/25 07:34 07/10/25 07:34
Last Documented Vital Signs
Temp Pulse Resp BP Pulse Ox
98.6 F 76 27 116/58 80
07/10/25 08:38 07/10/25 10:41 07/10/25 09:30 07/10/25 10:41 07/10/25 09:30
Devanlt;Fer Chester, DO - Last Filed: 07/10/25 10:37>
Orders/Labs/Results
Orders:
Orders
07/10/25 08:19
Electrocardiogram (*1) Urgent
Reason for Study: Shortness of Breath
CXR2 [CR Chest - 2 Views ] Urgent
Comment:
Reason For Exam: shortness of breath
07/10/25 08:20
EKG- Treatment ONCE
07/10/25 08:27
Complete Blood Count/With Diff Urgent
Comprehensive Metabolic Panel Urgent
Magnesium Urgent
NT-proBNP Urgent
Troponin I Urgent
07/10/25 09:44
Furosemide [Lasix] 80 mg IV NOW STA
07/10/25 09:45
Potassium Chloride [KCl] 20 meq PO NOW STA
07/10/25 Lunch
IDDSI 6 - Soft & Bite Sized
07/10/25 11:10
Admit/Transfer Patient As Directed
Co-Sign Provider:
Level of Care: Inpatient admission
Assign to:: Telemetry
Physician / Group: Hospitalist
Diagnosis: Acute exacerbation of HFpEF
Reason for Telemetry: Arrhythmia
Date to Stop Telemetry: 07/13/25
Time to Stop Telemetry: 11:00
Reason for Hospitalization: Acute exacerbation of HFpEF
Expected length of stay greater than two midnights?: Yes
ELOS- Estimated Length of Stay in days: 2
I certify the patient meets the requirements for IP care: Yes
07/10/25 11:12
PRN Pain Medication Management As Directed
May give lesser potent ordered pain med per pt: Yes
preference::
Protocol:: Medication orders for pain may be administered in a
manner that supports deferring to patient preference
when the pt is:
- Requesting an ordered lesser potent pain medication.
Least to most potent pain medications are defined
as: acetaminophen < NSAID < tramadol < opioids
(morphine, oxycodone, hydromorphone).
- Requesting a lesser dose of the same medication IF
ORDERED.
- Requesting a less intrusive route of administration
if both routes are prescribed by the provider (PO <
IV).
07/10/25 11:18
Code Status As Directed
Resuscitation Status: Full Code
07/10/25 11:32
HF DIETARY CONSULT Routine
07/13/25 11:00
DC Protocol for Telemetry ONCE
Abnormal Lab Results
07/10/25
08:27
RBC 3.21 L 10^6/uL
(4.70-6.10)
Hgb 10.2 L g/dL
(13.0-18.0)
Hct 32.9 L %
(39.0-52.0)
MCV 102.5 H fL
(80.0-94.0)
MCH 31.8 H pg
(27.0-31.0)
MCHC 31.0 L g/dL
(33.0-37.0)
RDW 15.0 H %
(11.5-14.5)
Absolute Lymphs (auto) 0.8 L 10^3/uL
(1.2-3.4)
Absolute Monos (auto) 0.8 H 10^3/uL
(0.1-0.6)
Lymphocytes % 12.9 L %
(20.5-51.1)
Monocytes % 11.9 H %
(1.7-9.3)
Carbon Dioxide 32 H mmol/L
(22-30)
BUN 56 H mg/dl
(9-20)
Creatinine 2.3 H mg/dL
(0.7-1.3)
Glucose 122 H mg/dl
(70-99)
Magnesium 1.3 L mg/dl
(1.6-2.3)
Alkaline Phosphatase 181 H U/L
(38-126)
Troponin I 0.073 H* ng/ml
Albumin 3.3 L g/dl
(3.5-5.0)
07/10/25 08:27
07/10/25 08:27
Vital Signs
Initial and Last Documented VS:
Initial Vital Signs
Temp Pulse Resp BP Pulse Ox
97.6 F 75 20 144/56 90
07/10/25 07:34 07/10/25 07:34 07/10/25 07:34 07/10/25 07:34 07/10/25 07:34
Last Documented Vital Signs
Temp Pulse Resp BP Pulse Ox
98.6 F 76 27 116/58 80
07/10/25 08:38 07/10/25 10:41 07/10/25 09:30 07/10/25 10:41 07/10/25 09:30
<Robert Rodriguez MD, Resident - Last Filed: 07/10/25 13:22>
MDM/Problems Addressed
Differential Diagnosis Includes:
Acute on chronic heart failure
Acute hypoxic respiratory failure
Pleural effusions
COPD exacerbation
Pulmonary embolism
Acute coronary syndrome
Pneumonia
Pneumothorax
MDM/Problems Addressed:
Assessment: Patient is a 79-year-old male with extensive PMH including HFrEF, CAD s/p bypass and stenting, TAVR, stroke, COPD, and renal failure who presents to the [facility] ED with shortness of breath and hypoxia while on 2 L of oxygen at home
that is exacerbated by movement. In the ED, patient is mildly tachypneic and hypoxic (90%) with wheezing, decreased breath sounds at the bases, and 3+ LE pitting edema bilaterally. Chest x-ray shows pulmonary edema with bilateral pleural
effusions. Abnormal labs include proBNP 15,300, Cr 2.3, Mg 1.3, Hgb 10.3. Suspect acute on chronic heart failure exacerbation.
Plan:
#Shortness of breath
EKG
Labs: CBC, CMP, proBNP, troponin, Mg
Imaging: CXR
Plan for admission
<Robert Rodriguez MD, Resident - Last Filed: 07/10/25 13:22>
*Pulse Oximetry
SaO2: 90
Nasal Cannula flow liters per minute: 4
Patient hypoxic: yes
*Critical Care Note
Total Time (30-74mins, 75-104mins- exclusive of procedures): Not Applicable
ED Attending Note
<Robert Rodriguez MD, Resident - Last Filed: 07/10/25 13:22>
-
Portions of this chart may have been created with voice recognition software.� Occasional wrong word or��sound alike� substitutions may have occurred due to the inherent limitations of voice recognition software.
<Fer Chester, DO - Last Filed: 07/10/25 10:37>
ED Attending Note
Patient seen and examined by attending physician: Yes
I performed a history and physical exam of patient and discussed management with resident, I reviewed resident's note and agree with documented findings and plan of care.: Yes
ED Attending Note:
Seen with resident examined independently acute on chronic shortness of breath increased oxygen requirement looks like a moderate effusion JAY heart failure will require admission
Discharge Plan
Departure
Patient Disposition: Admit
Date of Disposition: 07/10/25
Time of Disposition: 10:41
Admit to: Telemetry
Presentation/result/management discussed w/ accepting MD/DO: Hospitalist
Patient with high blood pressure during this ER visit?: Yes
Condition: Fair
Discharge Problem:
Acute on chronic systolic (congestive) heart failure, JAY (acute kidney injury), Stage 3a chronic kidney disease (CKD), Paroxysmal A-fib, Hypoxia, Volume overload
Interventions
Interventions:
*Risk Screen - Suicide Last Done: 07/10/25 07:34
*General Assessment Last Done: 07/10/25 08:38
*Neglect/Abuse Screening Last Done: 07/10/25 07:34
*ED- Fall Risk Assessment Last Done: 07/10/25 08:38
*ED COVID-19 Vaccine History Last Done: 07/10/25 08:38
*ED Influenza Vaccine History Last Done: 07/10/25 08:38
ED- Cardiac Assessment Last Done: 07/10/25 08:38
ED- Pulmonary Assessment Last Done: 07/10/25 08:38
[2025-07-10 09:11] LABS: Troponin I 0.073 ng/ml
--- NOTE | 2025-07-10 10:12 | HPS.HSE ---
Addendum entered and electronically signed by Yani Howell MD 07/10/25 14:09:
see update note for addendum
Original Note:
Family Physician
-
Family Physician: Christiano Eason
Chief Complaint
-
Shortness of breath
History of Present Illness
70-year-old male with past medical history of COPD, hypertension, hyperlipidemia, IDDM, HFrEF, A-fib on Eliquis, CVA, CKD stage IIIb, gastric AVMs, CAD s/p CABG/stents, presents to the ER for evaluation of shortness of breath. Patient has been
experiencing dyspnea that has worsened, requiring increased oxygen. He was on 2 L home oxygen, and was saturating in low 80s, and the visiting nurse felt that his lungs sounded wet. Patient's lower extremity swelling has also worsened, which
prompted him to take 2.5 mg metolazone (as advised by his nephrology as needed) 4 days ago, and reports he lost 4 LB's. However his breathing situation has not improved, his called primary care who advised him to be seen by the ER. Patient
was recently admitted for CVA in May, s/p [facility] for 3 weeks where he was diagnosed as having pleural effusion and underwent thoracocentesis 06/20/2025. Patient took his Eliquis yesterday morning. Patient denies chest pain, abdominal
pain, lightheadedness/dizziness, bladder/bowel disturbances, fever/chills.
Patient went to his cardiology and nephrology outpatient follow-up on 07/04/2025 without any change in his medications.
ED course�increased oxygen requirements of up to 4 L, afebrile, BP stable. Labs�hemoglobin 10.2, BUNs/creatinine 56/2.3, glucose 122, troponin�0.073, BNP�15,300, magnesium 1.3.
Chest x-ray with evidence of bilateral pleural effusions, right greater than sign left, pulmonary edema.
Medical History
Past Medical History
Past Medical History: Reports Other (COPD, hypertension, hyperlipidemia, IDDM, HFrEF, A-fib on Eliquis, CVA, CKD stage IIIb, gastric AVMs, CAD s/p CABG/stents)
Past Surgical History: Reports Other (CABG, PTCA with stent, TAVR, Cholecystectomy and Carotid endarterectomy)
Social History
Tobacco: Former Smoker
Alcohol: None
Drug: None
Personal:
Living: With Family
Family History
Family History: Not pertinent
Allergies / Home Medications
Allergies reflects when Allergies were last updated in [employer].
Home Medications with original date entered in [employer]
Allergy/Medication List:
Allergies
Allergy/AdvReac Type Severity Reaction Status Date / Time
grass pollen Allergy SNEEZING Verified 07/10/25 07:34
ragweed pollen Allergy NASAL Verified 07/10/25 07:34
CONGESTION
Home Medications
cyanocobalamin (vitamin B-12) 1,000 mcg tablet 1,000 mcg PO DAILY@1200 Supplement 10/04/19
omeprazole 40 mg capsule,delayed release 40 mg PO BID Gastrointestinal Issue 04/18/25
brinzolamide 1 % eye drops,suspension 1 drp BOTH EYES BID astigmatism ##0 04/20/25
metoprolol succinate 25 mg tablet,extended release 24 hr 12.5 mg (1/2 x 25 mg) PO DAILY Heart Failure 3 months #45 tabs 05/15/25
guaifenesin 100 mg/5 mL oral liquid 200 mg (10 mL) PO Q4HPRN PRN cough 1 month #1,500 mL 05/27/25
allopurinol 100 mg tablet 100 mg PO DAILY Gout 90 days #90 tabs 06/20/25
apixaban 5 mg tablet (Eliquis) 5 mg PO BID Arrhythmia 30 days #60 tabs 06/20/25
insulin glargine 100 unit/mL (3 mL) subcutaneous pen (Lantus Solostar U-100 Insulin) 9 unit (0.09 mL) SC HS Diabetes #0 mL 06/20/25
midodrine 2.5 mg tablet 2.5 mg PO BID@0700,1200 Orthostatic hypotension 30 days #60 tabs 06/20/25
trazodone 50 mg tablet 25 mg (1/2 x 50 mg) PO HS sleep 30 days #15 tabs 06/20/25
ascorbic acid (vitamin C) 500 mg tablet (Vitamin C) 500 mg PO DAILY Supplement 07/10/25
atorvastatin 80 mg tablet 80 mg PO HS High cholesterol 07/10/25
ferrous sulfate 325 mg (65 mg iron) tablet (FeroSul) 325 mg PO DAILY@1200 Anemia 07/10/25
insulin aspart U-100 100 unit/mL (3 mL) subcutaneous pen (Novolog FlexPen U-100 Insulin aspart) 3 sliding scale dose SC AC Diabetes 07/10/25
ipratropium bromide 17 mcg/actuation HFA aerosol inhaler 2 puff inhalation TIDPRN PRN shortness of breath or wheezing 07/10/25
potassium chloride 10 mEq capsule,extended release 10 meq PO DAILY Electrolyte Repletion 07/10/25
sodium chloride 0.65 % nasal spray aerosol (Deep Sea Nasal) 2 sprays intranasal QIDPRN PRN congestion 07/10/25
torsemide 40 mg tablet 40 mg PO DAILY Fluid Retention/Swelling 07/10/25
Review of Systems
-
A 12 point ROS was completed and negative except as noted: Yes
Physical Exam
Vital Signs
Vital Signs
Temp Pulse Resp BP Pulse Ox
98.6 F 82 27 134/80 80
07/10/25 08:38 07/10/25 09:30 07/10/25 09:30 07/10/25 08:38 07/10/25 09:30
Physical Exam
General: Conversant
HEENT: NormoCephalic and Atraumatic
Respiratory: Crackles
Cardiac: S1/S2, Regular Rhythm and Murmur
GI: Soft, Non Tender, Non Distended and Normal Bowel Sounds
Musculoskeletal: Edema, Left Lower Extremity and Edema, Right Lower Extremity
Skin: Warm and Dry
Neuro: Awake, Alert, Oriented, AO x 3, Slurred Speech (Chronic since CVA in May) and Facial Droop (Since CVA in May)
Psych: Calm
Laboratory Results
-
07/10/25 08:
07/10/25:
Laboratory Results
Total Bilirubin 0.9 mg/dl (0.2-1.3) 07/10/25:
AST 24 U/L (17-59) 07/10/25:
ALT 18 U/L (0-50) 07/10/25:
Alkaline Phosphatase 181 U/L (38-126) H 07/10/25:
Troponin I 0.073 ng/ml H* 07/10/25 08:
Impression/Plan
-
IMPRESSION:
70-year-old male with past medical history of COPD, hypertension, hyperlipidemia, IDDM, HFrEF, A-fib on Eliquis, CVA, CKD stage IIIb, gastric AVMs, CAD s/p CABG/stents, presents to the ER for evaluation of shortness of breath.
PLAN:
# Acute exacerbation of HFrEF
Echo�05/21/2025, patient has an EF of 25 to 30% status post TAVR
BNP�15,300
Chest x-ray with interstitial pulmonary edema, bilateral pleural effusions.
S/p 80 mg IV Lasix in ER
Will start Lasix 40 mg IV twice daily
Daily ISSA's
Daily weights
Continue home metoprolol
Consult cardiology
Monitor BMP
Fluid restriction�1500 cc
Replete electrolytes as needed
Monitor oxygen requirement, currently at 4 L, wean as tolerated maintaining oxygen saturation >90%
#Pulmonary edema, bilateral pleural effusions
Consulted IRad
Thoracocentesis
Check pleural fluid analysis
# JAY on CKD stage IIIb
Baseline creatinine�1.6
Creatinine today�2.3
Patient is on diuresis
Monitor BMP, and adjust Lasix as needed
Hold nephrotoxic meds
Consult nephrology
#Hypomagnesemia
Magnesium today�1.3
Replete
#Paroxysmal A-fib
Continue Eliquis
Continue metoprolol
#Elevated troponins
Likely nonischemic elevation
Trend troponins
#Type 2 diabetes mellitus
Continue home dose Lantus
Add low-dose SSI
Monitor sugars
#Orthostatic hypotension
Continue home midodrine
#Hyperlipidemia
Continue atorvastatin
#Anemia
Chronic, macrocytic
Monitor CBC
Patient has history of gastric AVMs
#Gout
Continue allopurinol
Diet�IDD SI 6�soft and bite sized, pending speech consult
DVT prophylaxis�Eliquis
Full code
[2025-07-10] MEDS: KCL 20 MEQ PO (10:41)
[2025-07-10] MEDS: LASIX 80 MG IV ×2 (10:41→16:07)
--- NOTE | 2025-07-10 10:51 | EDRN ---
the pt is on a special diet, the hospitalist is speaking to the pts regarding diet and thickened liquids currently, this RN adminstered PO KCL in apple sauce with the approval of the pts and the approval of the hospitalist
--- NOTE | 2025-07-10 11:04 | EDRN ---
hospitalist speaking to the pt and the pts and the pts is upset that the pt is being admitted, hospitalist attempting to explain the reason for admission, the pts asked this RN directly, 'Is he going to be okay and is he going to get
better, i am frustrated that he is back in here and that we don't have a handle on things yet', this RN apologized for the pts and the pts 's frustrations and explained that this RN is here to help the pt and the pts
--- NOTE | 2025-07-10 13:59 | W.PN.UPDATE ---
Update Note
Progress Note Update
I have personally supervised the history, physical exam, medical decision-making, and care plan for this patient in conjunction with the resident. I have reviewed and discussed the resident�s documentation and findings. I confirm that this note
accurately reflects my supervision and input in the care of this patient
79 y/o M past medical history of COPD, hypertension, hyperlipidemia, IDDM, HFrEF, A-fib on Eliquis, CVA, CKD stage IIIb, gastric AVMs, CAD s/p CABG/stents, presents to the ER for evaluation of shortness of breath, increased O2 requirements, elevated
BNP. He was found to be in acute CHF and also had moderate sized R pleural effusion for which IR is consulted. Cardiology is consulted. IV Lasix was given in ER.
Exam:
General: Conversant
HEENT: Normocephalic and Atraumatic
Respiratory: Crackles
Cardiac: S1/S2, Regular Rhythm and Murmur
GI: Soft, Non Tender, Non Distended and Normal Bowel Sounds
Musculoskeletal: Edema, Left Lower Extremity and Edema, Right Lower Extremity
Skin: Warm and Dry
Neuro: Awake, Alert, Oriented, AO x 3, Slurred Speech (Chronic since CVA in May) and Facial Droop (Since CVA in May)
Psych: Calm
Assessment:
Acute on Chronic HFrEF
- Echo 05/21/25: EF of 25 to 30% status post TAVR
- elevated BNP
- continue IV Lasix BID; requires intensive monitoring of I/Os, weights, lytes
- GDMT: BB. CKD precludes BRITTANY/ARB/ARNI
- salt/fluid restrictions
- DCA cards consulted
nonischemic myocardial injury in setting of acute CHF and CKD
- trend to peak
Acute on chronic hypoxic respiratory failure
- baseline 2L, currently 4L - wean O2 as able
JAY, cardiorenal in setting of CKD stage 3b
- nephrology consulted
- monitor BMP
Bilateral pleural effusions
- R>L on CXR
- IRAD consult with labs
Hypomagnesemia
- replete today
- repeat level in AM
Paroxysmal A-fib
- continue Eliquis/BB
Type 2 diabetes mellitus
- continue home dose Lantus
- continue low-dose SSI
Orthostatic hypotension
- continue home midodrine
Hyperlipidemia
- continue atorvastatin
Anemia, Chronic, macrocytic
- monitor CBCs
- baseline between 8-9s
Gout
- continue allopurinol
DVT ppx: Eliquis
Code: Full
--- NOTE | 2025-07-10 14:21 | CON.CAR ---
Addendum entered and electronically signed by Cordell Ponce MD 07/10/25 18:15:
I saw and examined the patient.
The Field Return Repairer's note was reviewed and I agree with the note.
Comment:
GEN: No distress, awake, Ox3
HEENT: supple, anicteric, mmm
LUNGS: bilat rhonchi
CV: Reg, S1/S2, 1/6 syst LSB, S3+
ABD: soft, BS+, NT/ND
EXT: +1 edema
NEURO: Gross non-focal
SKIN: No rash
Plan:
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
stroke, COPD on home oxygen, history of GI bleeds, coronary artery status post CABG with ischemic cardiomyopathy and ICD, with orthostasis and permanent atrial fibrillation presents to [facility] with progressive shortness of breath, edema,
weight gain, and fatigue. The patient had a thoracentesis June 20, 2025 where 1.5 L was removed. Last week after being evaluated by cardiology and nephrology metolazone was added 2.5 mg weekly. He presents with edema shortness of breath,
orthopnea, and worsening acute on chronic heart failure with reduced ejection fraction.
His creatinine is currently at 2.3. Baseline is ideally in the 1.6-2.0 range. I suspect he has cardiorenal syndrome with low flow and acute on chronic renal failure
Start Lasix 80 mg IV twice daily. Continue midodrine 2.5 mg p.o. twice daily and follow blood pressure. Continue low-dose Toprol.
I would have a low threshold to try adding dobutamine on him to help his forward flow and cardiac output. Will reassess in 24 hours and consider dobutamine drip.
Continue Toprol and Eliquis for permanent atrial fibrillation.
We will repeat his echocardiogram reevaluate his LVEF and recently placed transcatheter aortic valve.
Continue oxygen and supportive care.
Hemoglobin overall stable at 10.2.
Agree with plan to proceed with thoracentesis.
Abnormal troponin is likely nonischemic myocardial injury. EKG is overall paced
Original Note:
Consultation
Consultation Request
Date/Time Consultation Performed: 07/10/25
Requesting Provider: Dr. Howell
Performing Provider: Niurka Patterson PA-C for Dr. Ponce
Reason for Consultation: CHF
Medical History
-
Chief Complaint: SOB, LE edema
History of Present Illness:
Patient is a 79-year-old male well-known to our service with prolonged admission 04/18 - 05/16/2025 for acute heart failure, JAY resulting in initiation of temporary hemodialysis and eventual TAVR placement. EF post TAVR 25 to 30% discharged only to
return 4 days later with acute left frontoparietal stroke, felt to be cardioembolic secondary to intermittent interruptions in anticoagulation during TAVR evaluation versus atheroembolic related to TAVR procedure itself. He then was discharged to
rehab. Underwent R thora 06/20/25 for 1650cc. He was seen in office by cardiology as well as nephrology on 07/04/2025. His device interrogation at office visit 07/04 did note increased volume status, however torsemide 40mg daily dose was not
increased due to concern for worsening renal insufficiency. At nephrology appt metolazone 2.5mg weekly was added to regimen. Dry weight felt to be 155 pounds. Now presents with worsening LE edema and acute CHF as well as JAY. proBNP [id number].
Cardiology consulted for evaluation.
PMH:
Chronic HFrEF
s/p R thora 06/20/25
Chronic respiratory insufficiency, on 2 L nasal cannula continuous
Left frontoparietal stroke 05/2025
Admission for acute HFrEF, JAY leading to new HD and TAVR 04/18/2025 until 05/16/2025
CKD, required temporary HD 04/2025 admission, with subsequent improvement in creatinine and therefore HD stopped
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
CAD
s/p CABG with NAVAS to LAD, free radial to ramus, SVG to OM and SVG to PDA 2001
s/p cardiac cath with patent NAVAS to LAD, widely patent free radial to ramus, 100% occluded SVG to OM and 50 to 55% mid stenosis of the SVG to the PDA to be stable 03/15/2025
ICM EF 25-30%, post TAVR
carotid disease s/p left CEA in 2012
s/p Medtronic single chamber ICD 2017
Permanent Afib
Chronic Eliquis OAC
Orthostatic hypotension on chronic midodrine
DM 2
Gout
Former smoker, quit 03/2025
Past Medical History
Past Medical History: Other (See HPI)
Social History
Tobacco: Former Smoker
Alcohol: None
Drug: None
Personal:
Living: With Family
Employment: Retired
Family History
Family History: Reviewed & Not Pertinent
Allergies / Home Medications
Allergy/AdvReac Type Severity Reaction Status Date / Time
grass pollen Allergy SNEEZING Verified 07/10/25 07:34
ragweed pollen Allergy NASAL Verified 07/10/25 07:34
CONGESTION
�Medication �Instructions �Recorded �Confirmed �Type
cyanocobalamin (vitamin B-12) 1,000 mcg PO DAILY@1200 Supplement 10/04/19 07/10/25 History
1,000 mcg tablet
omeprazole 40 mg capsule,delayed 40 mg PO BID Gastrointestinal Issue 04/18/25 07/10/25 History
release
brinzolamide 1 % eye 1 drp BOTH EYES BID astigmatism ##0 04/20/25 07/10/25 History
drops,suspension
metoprolol succinate 25 mg 12.5 mg (1/2 x 25 mg) PO DAILY 05/15/25 07/10/25 Rx
tablet,extended release 24 hr Heart Failure 3 months #45 tabs
guaifenesin 100 mg/5 mL oral liquid 200 mg (10 mL) PO Q4HPRN PRN cough 05/27/25 07/10/25 Rx
1 month #1,500 mL
allopurinol 100 mg tablet 100 mg PO DAILY Gout 90 days #90 06/20/25 07/10/25 Rx
tabs
apixaban 5 mg tablet (Eliquis) 5 mg PO BID Arrhythmia 30 days #60 06/20/25 07/10/25 Rx
tabs
insulin glargine 100 unit/mL (3 9 unit (0.09 mL) SC HS Diabetes #0 06/20/25 07/10/25 Rx
mL) subcutaneous pen (Lantus mL
Solostar U-100 Insulin)
midodrine 2.5 mg tablet 2.5 mg PO BID@0700,1200 06/20/25 07/10/25 Rx
Orthostatic hypotension 30 days
#60 tabs
trazodone 50 mg tablet 25 mg (1/2 x 50 mg) PO HS sleep 30 06/20/25 07/10/25 Rx
days #15 tabs
ascorbic acid (vitamin C) 500 mg 500 mg PO DAILY Supplement 07/10/25 07/10/25 History
tablet (Vitamin C)
atorvastatin 80 mg tablet 80 mg PO HS High cholesterol 07/10/25 07/10/25 History
ferrous sulfate 325 mg (65 mg 325 mg PO DAILY@1200 Anemia 07/10/25 07/10/25 History
iron) tablet (FeroSul)
insulin aspart U-100 100 unit/mL 3 sliding scale dose SC AC Diabetes 07/10/25 07/10/25 History
(3 mL) subcutaneous pen (Novolog
FlexPen U-100 Insulin aspart)
ipratropium bromide 17 2 puff inhalation TIDPRN PRN 07/10/25 07/10/25 History
mcg/actuation HFA aerosol inhaler shortness of breath or wheezing
potassium chloride 10 mEq 10 meq PO DAILY Electrolyte 07/10/25 07/10/25 History
capsule,extended release Repletion
sodium chloride 0.65 % nasal spray 2 sprays intranasal QIDPRN PRN 07/10/25 07/10/25 History
aerosol (Deep Sea Nasal) congestion
torsemide 40 mg tablet 40 mg PO DAILY Fluid 07/10/25 07/10/25 History
Retention/Swelling
Review of Systems
-
History Source: Patient
All other systems: Negative unless noted
Physical Exam
Vital Signs
Temp Pulse Resp BP Pulse Ox
98.6 F 77 21 116/58 94
07/10/25 10:30 07/10/25 13:30 07/10/25 13:15 07/10/25 10:48 07/10/25 10:48
Lab Results
07/10/25 08:27
07/10/25 08:27
Troponin I 0.073 ng/ml H* 07/10/25 08:27
Sed-T-Yonpxocrxsy Pept 63421 pg/ml 07/10/25 08:27
Physical Exam
General: No Apparent Distress, Comfortable and Other (frail appearing, cachectic. on supp O2)
HEENT: Anicteric and Moist Mucous Membranes
Respiratory: Other (decreased BS B/L bases)
Cardiac: S1/S2, Irregular Rhythm and Murmur
GI: Soft, Non Tender, Non Distended and Normal Bowel Sounds
Musculoskeletal: No Clubbing, No Cyanosis and Edema (3+ of B/L LE with erythema noted)
Skin: Warm and Dry
Neuro: AO x 3
Impression / Plan
-
Primary Discharge Planner: Dr. Sutton
Primary Paper Sorter: Dr. Yates
Assessment:
Presentation with LE edema, SOB
Acute on chronic HFrEF
B/L pleural effusions
JAY on CKD, suspected cardiorenal syndrome
Elevated trop, suspected nonischemic myocardial injury
Hypomagnesemia
s/p R thora 06/20/25
Chronic respiratory insufficiency, on 2 L nasal cannula continuous
Left frontoparietal stroke 05/2025
Admission for acute HFrEF, JAY leading to new HD and TAVR 04/18/2025 until 05/16/2025
CKD, required temporary HD 04/2025 admission, with subsequent improvement in creatinine and therefore HD stopped
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
CAD
s/p CABG with NAVAS to LAD, free radial to ramus, SVG to OM and SVG to PDA 2001
s/p cardiac cath with patent NAVAS to LAD, widely patent free radial to ramus, 100% occluded SVG to OM and 50 to 55% mid stenosis of the SVG to the PDA to be stable 03/15/2025
ICM EF 25-30%, post TAVR
carotid disease s/p left CEA in 2012
s/p Medtronic single chamber ICD 2017
Permanent Afib
Chronic Eliquis OAC
Orthostatic hypotension on chronic midodrine
DM 2
Gout
Former smoker, quit 03/2025
ECHO 12/03/22: EF 50%, mild LVH, stage III diastolic dysfunction, mild MR, severe with peak/mean gradients 54/28 mmHg, KAELYN 0.8 cm�, trace AR, mild TR, PAP 64 mmHg, mild dilation of aorta measuring 4.0 cm
Echo 10/09/2024: EF 35 to 40%, moderate eccentric MR, severe peak/mean 60/34 mmHg and KAELYN 0.8 cm sq, mild aortic insufficiency, moderate TR with PAP 64 mmHg
Echo 03/12/2025: EF 31%, global hypokinesis, moderate MR, severe peak/mean 41/22 mmHg and KAELYN 0.7 cm sq, mild aortic regurgitation, moderate to severe TR with PAP 72 mmHg
Echo 05/11/2025: s/p TAVR with #29 Donovan BLAISE 3 aortic valve prosthesis with peak/mean 6/3 mmHg, mild MR, moderate to severe TR with PAP 60 mmHg
Echo 05/21/2025: EF 25-30%, global hypokinesis basal inferior akinesis, TAVR with mean aortic valve gradient of 6, mildly dilated left atrium, mild mitral regurgitation, mild TR, unchanged from prior
Plan:
- Patient well-known to our service presents with worsening lower extremity edema and shortness of breath. Found to have proBNP 38507 and bilateral pleural effusions with pulmonary edema on x-ray consistent with acute heart failure exacerbation.
Also with JAY on CKD, suspected cardiorenal syndrome
- Diuresis with IV Lasix, currently ordered 40 mg IV twice daily per hospitalist. Would consider increasing to 80 IV twice daily. follow creatinine trend with diuresis. Consider nephrology input. Was on torsemide 40 mg daily prior to admission
with 2.5 mg of metolazone weekly just added 07/04
- If fails to diurese, would consider addition of dobutamine
- [facility] consulted for thoracentesis of bilateral pleural effusions noted on chest x-ray. He underwent right thoracentesis 06/20 for 1650 cc
- Wean supplemental O2 as able. Has been chronically requiring 2 L nasal cannula since TAVR admission
- Replete potassium and magnesium
- Last echo from 05/21/2025 with EF 25 to 30%. Will repeat
- Hypotension has limited GDMT of cardiomyopathy. On midodrine 2.5 mg twice daily as outpatient. Continue low-dose Toprol. Renal insufficiency also limits addition of BRITTANY/ARB/ARNI/Aldactone/SGLT2
- In rate controlled A-fib, which is permanent. Continue Eliquis. Hemoglobin stable at 10.2
- Troponin 0.073, trend to peak. No complaints of chest pain. EKG V paced rhythm with PVCs. Suspected nonischemic myocardial injury
- Full CODE STATUS noted
- High risk situation
Data Reviewed
-
EKG: Tracing Personally Visualized and interpreted
Radiology: Report Reviewed by me
Medical Tests (Nuc Med, Echo etc): Report Reviewed by me
Labs: Labs Reviewed by me
Old Records: Reviewed
--- NOTE | 2025-07-10 14:21 | EDCM ---
CM reviewed chart and met with pt bedside in ED. Pt lives with his and son in 2 story home, 2 KO, has first floor bedroom and full bath.
Needs assistance with ADLs and personal care, ambulating with walker, also has cane. Uses O2 2L NC at home.
Currently on 4L NC in ED.
Pt had recent admit 05/20 to 05/31, was discharged to [facility] then discharged home 06/21.
Pt had been receiving HD at [facility] but told me he does not need to go anymore.
Confirms prescription coverage.
Current with [facility].
PCP: Christiano Eason
Pharmacy: [facility].
Discharge plan pending ongoing medical evaluation. CM will continue to follow for all discharge planning needs.
--- NOTE | 2025-07-10 14:51 | EDRN ---
this RN called the receiving unit nurse and gave verbal report regarding the pts special diet and liquid consistency as well as aspiration precautions, this RN also tubed paper report
[2025-07-10 15:49] LABS: Glucose - Point of Care 92 mg/dl (70-99)
--- NOTE | 2025-07-10 16:00 | PTCARENOTE ---
Received pt from ED, assist of 1 with RW, 6Lo2, VSS, speech consulted and pt seen at bedside, diet order modified per speech therapist. Admission complete, pt oriented to call moreno and room, pt resting comfortably in bed at this time.
[2025-07-10] MEDS: VITAMIN B-12 1000 MCG PO (16:06)
[2025-07-10] MEDS: MAGNESIUM OXIDE 400 MG PO (16:06)
[2025-07-10] MEDS: TOPROL XL 12.5 MG PO (16:06)
[2025-07-10] MEDS: FEOSOL 325 MG PO (16:07)
[2025-07-10] MEDS: NOVOLOG FLEXPEN-LOW RESISTANCE SC (16:07)
[2025-07-10] MEDS: KCL 10 MEQ PO (16:07)
--- NOTE | 2025-07-10 16:25 | W.CON.NEPH ---
Consultation
-
Date/Time Consultation Requested: 07/10/25 1523
Date/Time Consultation Performed: 07/10/25 1630
Requesting Provider: Yani Wheeler
Performing Provider: Cherie Rascon
Reason for Consultation: JAY with CKD 3
Medical History
-
Chief Complaint: HYpoxia
History of Present Illness:
70-year-old male with past medical history of COPD, hypertension but orthostatic hypotension on low dose midodrine, hyperlipidemia, IDDM, HFrEF on Torsemide and prn metolazone, A-fib on Eliquis and BB, CVA, CKD stage IIIb baseline cr 1.5-[address] Yates, gastric AVMs, CAD s/p CABG/stents, severe status post TAVR 05/11/2025 presents to the ER for evaluation of shortness of breath. Patient has been experiencing dyspnea that has worsened, requiring increased oxygen. He was on 2 L home
oxygen, and was saturating in low 80s, and the visiting nurse felt that his lungs sounded wet. Patient's lower extremity swelling has also worsened, which prompted him to take 2.5 mg metolazone (as advised by his nephrology as needed take twice
weekly), and reports he lost 4 LB's. However his breathing situation has not improved, his called primary care who advised him to be seen by the ER specially with low O2 sat levels.
Patient was recently admitted for TAVR in may which caused JAY and was on HD short time , course was complicated by CVA for which he went to [facility] for 3 weeks where he was diagnosed as having pleural effusion and underwent thoracocentesis
06/20/2025.
Patient denies chest pain, abdominal pain, no constipation or diarrhea, fever/chills. Still with chr cough. SOB no change from baseline.
ED course�increased oxygen requirements of up to 4 L, BUNs/creatinine 56/2.3,BNP�15,300, magnesium 1.3. s/p lasix 80mg.
Chest x-ray with evidence of bilateral pleural effusions, right greater than sign left, pulmonary edema.
Past Medical History
Severe since 2019 s/p TAVR 05/11/2025
ICM EF 30% 03/2025
CKD3b
CAD status post CABGx4 in setting of [place] in 2001
carotid disease s/p left CEA in 2012
s/p Medtronic single chamber ICD 2017
Persistent Afib
Chronic Eliquis OAC
DM 2
Gout
Smoker, ongoing tobacco use
COPD
Hypercholesterolemia
h/o GIB from AVMs
Past Surgical History: Cholecystectomy and Other (CABG, ICD, TAVR, Cholecystectomy and Carotid endarterectomy)
Social History
Tobacco: Former Smoker
Alcohol: None
Personal:
Living: With Family
Family History
Family History: Not Pertinent
Allergies / Home Medications
Allergy/AdvReac Type Severity Reaction Status Date / Time
grass pollen Allergy SNEEZING Verified 07/10/25 07:34
ragweed pollen Allergy NASAL Verified 07/10/25 07:34
CONGESTION
�Medication �Instructions �Recorded �Confirmed �Type
cyanocobalamin (vitamin B-12) 1,000 mcg PO DAILY@1200 Supplement 10/04/19 07/10/25 History
1,000 mcg tablet
omeprazole 40 mg capsule,delayed 40 mg PO BID Gastrointestinal Issue 04/18/25 07/10/25 History
release
brinzolamide 1 % eye 1 drp BOTH EYES BID astigmatism ##0 04/20/25 07/10/25 History
drops,suspension
metoprolol succinate 25 mg 12.5 mg (1/2 x 25 mg) PO DAILY 05/15/25 07/10/25 Rx
tablet,extended release 24 hr Heart Failure 3 months #45 tabs
guaifenesin 100 mg/5 mL oral liquid 200 mg (10 mL) PO Q4HPRN PRN cough 05/27/25 07/10/25 Rx
1 month #1,500 mL
allopurinol 100 mg tablet 100 mg PO DAILY Gout 90 days #90 06/20/25 07/10/25 Rx
tabs
apixaban 5 mg tablet (Eliquis) 5 mg PO BID Arrhythmia 30 days #60 06/20/25 07/10/25 Rx
tabs
insulin glargine 100 unit/mL (3 9 unit (0.09 mL) SC HS Diabetes #0 06/20/25 07/10/25 Rx
mL) subcutaneous pen (Lantus mL
Solostar U-100 Insulin)
midodrine 2.5 mg tablet 2.5 mg PO BID@0700,1200 06/20/25 07/10/25 Rx
Orthostatic hypotension 30 days
#60 tabs
trazodone 50 mg tablet 25 mg (1/2 x 50 mg) PO HS sleep 30 06/20/25 07/10/25 Rx
days #15 tabs
ascorbic acid (vitamin C) 500 mg 500 mg PO DAILY Supplement 07/10/25 07/10/25 History
tablet (Vitamin C)
atorvastatin 80 mg tablet 80 mg PO HS High cholesterol 07/10/25 07/10/25 History
ferrous sulfate 325 mg (65 mg 325 mg PO DAILY@1200 Anemia 07/10/25 07/10/25 History
iron) tablet (FeroSul)
insulin aspart U-100 100 unit/mL 3 sliding scale dose SC AC Diabetes 07/10/25 07/10/25 History
(3 mL) subcutaneous pen (Novolog
FlexPen U-100 Insulin aspart)
ipratropium bromide 17 2 puff inhalation TIDPRN PRN 07/10/25 07/10/25 History
mcg/actuation HFA aerosol inhaler shortness of breath or wheezing
potassium chloride 10 mEq 10 meq PO DAILY Electrolyte 07/10/25 07/10/25 History
capsule,extended release Repletion
sodium chloride 0.65 % nasal spray 2 sprays intranasal QIDPRN PRN 07/10/25 07/10/25 History
aerosol (Deep Sea Nasal) congestion
torsemide 40 mg tablet 40 mg PO DAILY Fluid 07/10/25 07/10/25 History
Retention/Swelling
Review of Systems
-
All other systems: Negative unless noted
Physical Exam
Vital Signs
Vital Signs
Temp Pulse Resp BP Pulse Ox
97.4 F 76 16 137/69 97
07/10/25 15:35 07/10/25 16:06 07/10/25 15:35 07/10/25 16:06 07/10/25 16:13
Lab Results
WBC 6.4 10^3/uL (4.8-10.8) 07/10/25 08:27
RBC 3.21 10^6/uL (4.70-6.10) L 07/10/25 08:27
Hgb 10.2 g/dL (13.0-18.0) L 07/10/25 08:27
Hct 32.9 % (39.0-52.0) L 07/10/25 08:27
Plt Count 191 10^3/uL (130-400) 07/10/25 08:27
Sodium 136 mmol/L (135-145) 07/10/25 08:27
Potassium 3.6 mmol/L (3.5-5.1) 07/10/25 08:27
Chloride 98 mmol/L (98-107) 07/10/25 08:27
Carbon Dioxide 32 mmol/L (22-30) H 07/10/25 08:27
BUN 56 mg/dl (9-20) H 07/10/25 08:27
Creatinine 2.3 mg/dL (0.7-1.3) H 07/10/25 08:27
eGFR 28.18 07/10/25 08:27
Glucose 122 mg/dl (70-99) H 07/10/25 08:27
Calcium 9.0 mg/dl (8.4-10.2) 07/10/25 08:27
Czc-R-Jedycevsdfu Pept 19515 pg/ml 07/10/25 08:27
Albumin 3.3 g/dl (3.5-5.0) L 07/10/25 08:27
Physical Exam
General: Awake, Alert, Oriented, AOx3, No Distress and Nontoxic
HEENT: Anicteric, Conjunctivae Clear and Facial Symmetry
Respiratory: Crackels, Normal Excursion and Nonlabored Respirations
Cardiac: S1/S2 and Regular Rate/Rhythm
Breast: Deferred by me
Musculoskeletal: Edema (3+)
Skin: No Rash
Neuro: Nonfocal/Grossly Intact
Psych: Mood/afflect pleasant, Insight/judgement good and Appropriate
Data Reviewed
-
Labs: Labs Reviewed by me and Discussed with Patient
Assessment/Plan
-
IMP:
Acute exacerbation of HFrEF
Echo�05/21/2025, patient has an EF of 25 to 30% status post TAVR
bilateral pleural effusions
JAY on CKD stage IIIb- cr 1.5-2, Dr Yates
Hypomagnesemia
Paroxysmal A-fib
Elevated troponins
Type 2 diabetes mellitus
Orthostatic hypotension
Hyperlipidemia
Anemia
Gout
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
CAD/CABG x 4 (2001)
Medtronic single-chamber ICD, 2018
Carotid disease -s/p left CEA 2012.
h/o GI bleed 03/2025 , known h/o AVMS
h/o CVA
Plan:
A/w sob and noted CHF flare
mild JAY with [id number] cardiorenal
cont IV diuresis lasix 80mg BID, prn metolazone
follow bladder scan and measure UOP
NOte he was on brief HD in Sep post TAVR
replace mg,
BP stable on low dose midodrine and BB, cards follows
labs and wts daily
d/w pt
--- NOTE | 2025-07-10 16:43 | PTOTSP ---
Dysphagia Evaluation
Patient with history of mild oral and mild-moderate pharyngeal dysphagia per video swallow study 06/15/2025 that identified silent aspiration with thin liquids. Patient has acute on chronic dysphagia risk factors (i.e., acute exacerbation of HFpEF;
CVA, COPD). CXR currently w/o PNA, patient afebrile, WBC WNL. Resume baseline diet prior to admission.
Recommend:
1. IDDSI 6 soft/bite sized, IDDSI 2 mildly thick liquids via single cup sips
2. Meds in puree
3. Strategies: single cup sips, multiple swallows
4. Oral care 3x daily to reduce risk for aspiration complications
5. SALES CLERK SUPERVISOR to f/u and determine if/when instrumental swallow testing warranted pending respiratory status
[2025-07-10 17:08] LABS: Troponin I 0.072 ng/ml
[2025-07-10] MEDS: PROTONIX 40 MG PO (19:34)
[2025-07-10] MEDS: ELIQUIS 5 MG PO (19:34)
[2025-07-10] MEDS: TRUSOPT 2% OPHTHALMIC SOLUTION 1 DROP BOTH EYES (19:35)
[2025-07-10] MEDS: DESYREL 25 MG PO (21:33)
[2025-07-10] MEDS: LIPITOR 80 MG PO (21:34)
[2025-07-10] MEDS: LANTUS 0.09 UNITS SC (21:38)
[2025-07-10 21:39] LABS: Glucose - Point of Care 213 mg/dl (70-99)
[2025-07-11] VITALS (8 sets, daily range): BP systolic 76–135; BP diastolic 49–66; BMI 27.5
[2025-07-11 00:07] LABS: Troponin I 0.063 ng/ml
[2025-07-11 05:49] LABS: Hematocrit 28.3 % (39.0-52.0); Hemoglobin 9.2 g/dL (13.0-18.0); Mean Corp Hgb Conc. 32.5 g/dL (33.0-37.0); Mean Corpuscular Volume 98.6 fL (80.0-94.0); Platelet Count 182 10^3/uL (130-400); Red Cell Dist. Width 14.6 % (11.5-14.5)
[2025-07-11 06:09] LABS: ALT (SGPT) 17 U/L (0-50); AST (SGOT) 22 U/L (17-59); Albumin 2.7 g/dl (3.5-5.0); Alkaline Phosphatase 159 U/L (38-126); Blood Urea Nitrogen 53 mg/dl (9-20); Calcium 8.7 mg/dl (8.4-10.2); Carbon Dioxide 33 mmol/L (22-30); Chloride 98 mmol/L (98-107); Estimated Creatinine Clearance 25 ml/min; Glucose 142 mg/dl (70-99); Magnesium 1.3 mg/dl (1.6-2.3); Potassium 3.2 mmol/L (3.5-5.1); Sodium 136 mmol/L (135-145); Total Protein 6.2 g/dl (6.3-8.2); eGFR 31.43
[2025-07-11 06:23] LABS: Troponin I 0.075 ng/ml
[2025-07-11 07:38] LABS: Glucose - Point of Care 134 mg/dl (70-99)
[2025-07-11] MEDS: NOVOLOG FLEXPEN-LOW RESISTANCE SC (07:46)
[2025-07-11] MEDS: ZYLOPRIM 100 MG PO (07:49)
[2025-07-11] MEDS: LASIX 80 MG IV ×2 (07:49→16:04)
[2025-07-11] MEDS: PROTONIX 40 MG PO ×2 (07:49→20:35)
[2025-07-11] MEDS: VITAMIN C 500 MG PO (07:49)
[2025-07-11] MEDS: ELIQUIS 5 MG PO ×2 (07:49→20:35)
[2025-07-11] MEDS: KCL 10 MEQ PO (07:49)
[2025-07-11] MEDS: TOPROL XL 12.5 MG PO (07:49)
[2025-07-11] MEDS: TRUSOPT 2% OPHTHALMIC SOLUTION 1 DROP BOTH EYES ×2 (07:53→20:36)
--- NOTE | 2025-07-11 08:32 | VNURNOTE ---
Chart reviewed. Patient is current with [facility]. Will continue to follow hospital course and DC plans.
--- NOTE | 2025-07-11 08:39 | W.PN.HOSP.TC ---
Today's Communication/Plan
-
continue diuresis; consider metolazone. Consider dobutamine (would need IVU transfer)
aggressive Mag and K repletion
Assessment / Plan
Assessment / Plan
Assessment:
Acute on Chronic HFrEF
- Echo 05/21/25: EF of 25 to 30% status post TAVR
- elevated BNP
- continue IV Lasix BID; requires intensive monitoring of I/Os, weights, lytes
- consider Metolazone
- consider Dobutamine; if added will need IVU floor
- GDMT: BB. CKD precludes BRITTANY/ARB/ARNI
- salt/fluid restrictions
- DCA cards following
nonischemic myocardial injury in setting of acute CHF and CKD
- trops relatively flat around .07; stop trending
Acute on chronic hypoxic respiratory failure
- baseline 2L, currently 4-6L - wean O2 as able
JAY, cardiorenal in setting of CKD stage 3b
- nephrology following
- monitor BMP
Hypokalemia
- aggressive oral repletion
Bilateral pleural effusions
- R>L on CXR
- IRAD consult for R thoracentesis, labs ordered
Hypomagnesemia
- IV repletion today and start oral daily tomorrow
- repeat level in AM
Paroxysmal A-fib
- continue Eliquis/BB
Type 2 diabetes mellitus
- continue home dose Lantus
- continue low-dose SSI
Orthostatic hypotension
- continue home midodrine
Hyperlipidemia
- continue atorvastatin
Anemia, Chronic, macrocytic
- monitor CBCs
- baseline between 8-9s
Gout
- continue allopurinol
DVT ppx: Eliquis
Code: Full
Received TT from Sherri vallejo/ for this patient; stating she had started goals of care discussions. Reviewed with patient and Neli; plans at this time are full measures.
Anticipated Discharge: > 48 hours
Subjective/Interval History
-
Date of Service: July 11, 2025
remains on 4-6L
reports mild SOB, no cp
for thoracentesis today
Objective Data
-
Labs:
Laboratory Results
07/11/25
05:34
WBC 5.9
Hgb 9.2 L
Hct 28.3 L
Plt Count 182
Sodium 136
Potassium 3.2 L
Chloride 98
Carbon Dioxide 33 H
BUN 53 H
Creatinine 2.1 H
Glucose 142 H
Calcium 8.7
Total Bilirubin 0.9
AST 22
ALT 17
Alkaline Phosphatase 159 H
Vital Signs:
Vital Signs
Temp Pulse Resp BP Pulse Ox
97.5 F 75 16 114/51 96
07/11/25 03:12 07/11/25 07:48 07/11/25 03:12 07/11/25 07:48 07/11/25 07:26
I&O
07/10/25 07/11/25 07/12/25
06:59 06:59 06:59
Intake Total 720 / 720
Output Total 1050 / 1050
Balance -330 / -330
Physical Exam
-
General: No Apparent Distress
HEENT: Normocephalic and Atraumatic
Respiratory: Crackles and Decreased Breath Sounds
Cardiac: Irregular Rhythm
GI: Soft and Nontender
Genito-urinary: No Costovertebral Tender
Neuro: AO x 3
Psych: Calm
Data Reviewed
-
Total Time Spent with Patient (in minutes): 52
Labs: Labs Reviewed by me
[2025-07-11 10:13] LABS: Glycohemoglobin (HgbA1c) 6.6 % (4.0-5.9)
[2025-07-11 11:04] LABS: Body Fluid Second Tech EM
--- NOTE | 2025-07-11 11:11 | W.PN.NEPH.PH ---
Today's Communication / Plan
-
diurese
Assessment/Plan
-
IMP:
Acute exacerbation of HFrEF
Echo�05/21/2025, patient has an EF of 25 to 30% status post TAVR
bilateral pleural effusions
JAY on CKD stage IIIb- cr 1.5-2, Dr Yates
Hypomagnesemia
Paroxysmal A-fib
Elevated troponins
Type 2 diabetes mellitus
Orthostatic hypotension
Hyperlipidemia
Anemia
Gout
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
CAD/CABG x 4 (2001)
Medtronic single-chamber ICD, 2017
Carotid disease -s/p left CEA 2012.
h/o GI bleed 03/2025 , known h/o AVMS
h/o CVA
briefly on HD 05/2025 after TAVR
Plan:
continue IV diuresis lasix 80mg BID, prn metolazone
ramírez in place
replete Mag/K
d/w patient. He would still accept HD if needed again in the future
-
-
Date of Service: July 11, 2025
CC / HPI / ROS
-
Chief Complaint:
CKD
History of Present Illness:
CKD/Cr stable 2.1
s/p right thoracentesis 07/11 for 1.4L
BP stable on midodrine
on IV lasix for decompensated HF
Review of Systems:
no CP/SOB
supplemental O2
Labs
-
Labs:
WBC 5.9 10^3/uL (4.8-10.8) 07/11/25 05:34
RBC 2.87 10^6/uL (4.70-6.10) L 07/11/25 05:34
Hgb 9.2 g/dL (13.0-18.0) L 07/11/25 05:34
Hct 28.3 % (39.0-52.0) L 07/11/25 05:34
Plt Count 182 10^3/uL (130-400) 07/11/25 05:34
Sodium 136 mmol/L (135-145) 07/11/25 05:34
Potassium 3.2 mmol/L (3.5-5.1) L 07/11/25 05:34
Chloride 98 mmol/L (98-107) 07/11/25 05:34
Carbon Dioxide 33 mmol/L (22-30) H 07/11/25 05:34
BUN 53 mg/dl (9-20) H 07/11/25 05:34
Creatinine 2.1 mg/dL (0.7-1.3) H 07/11/25 05:34
eGFR 31.43 07/11/25 05:34
Glucose 142 mg/dl (70-99) H 07/11/25 05:34
Calcium 8.7 mg/dl (8.4-10.2) 07/11/25 05:34
Skw-L-Egwrpifrfcu Pept 77079 pg/ml 07/10/25 08:27
Albumin 2.7 g/dl (3.5-5.0) L 07/11/25 05:34
Physical Exam
-
Vital Signs:
Vital Signs
Temp Pulse Resp BP Pulse Ox
97.6 F 76 20 135/66 95
07/11/25 08:55 07/11/25 10:10 07/11/25 10:10 07/11/25 10:10 07/11/25 10:10
Cardiovascular:: Regular rate and rhythm
Respiratory:: Bilateral: Coarse and Bilateral: Rhonchi
Lung Excursion:: Normal
Abdomen:: Nontender and Soft
Bowel Sounds:: Normal
Extremity Edema:: +3: Bilateral:
[2025-07-11] MEDS: KCL ELIXIR 40 MEQ PO (12:14)
[2025-07-11] MEDS: MAGNESIUM SULFATE 100 IV (12:15)
[2025-07-11 12:41] LABS: Glucose - Point of Care 203 mg/dl (70-99)
[2025-07-11] MEDS: FEOSOL 325 MG PO (12:52)
[2025-07-11] MEDS: VITAMIN B-12 1000 MCG PO (12:53)
[2025-07-11] MEDS: NOVOLOG FLEXPEN-LOW RESISTANCE 2 UNITS SC ×2 (13:35→17:51)
[2025-07-11] MEDS: KCL 270 MEQ IV (16:05)
--- NOTE | 2025-07-11 16:37 | W.PN.CARDCBS ---
Addendum entered and electronically signed by Fletcher Flannery DO 07/11/25 17:55:
I saw and examined the patient.
The [employer]'s note was reviewed and I agree with the note.
Comment:
Plan:
Cont IV lasix diuresis, cr improved to 2.1 today
Wt coming down.
He underwent right thoracentesis 07/11/2025 resulting in 1400 cc being drained. Last thoracentesis was 06/20 for 650 cc
Echo stable but EF remains low 25-30%
Hypotension limits GDMT
Appreciate pulm input
Reviewed with nursing.
Original Note:
Today's Communication / Plan
-
Continue diuresis with IV Lasix
Replete potassium and magnesium
Status post right thoracentesis
Echo with stable but low EF, 25 to 30%
Impression / Plan
-
Primary Certified Dietary Manager: Dr. Sutton
Primary Catalyst Supervisor: Dr. Yates
Assessment:
Presentation with LE edema, SOB
Acute on chronic HFrEF
B/L pleural effusions
JAY on CKD, suspected cardiorenal syndrome
Elevated trop, suspected nonischemic myocardial injury
Hypomagnesemia
s/p R thora 06/20/25
Chronic respiratory insufficiency, on 2 L nasal cannula continuous
Left frontoparietal stroke 05/2025
Admission for acute HFrEF, JAY leading to new HD and TAVR 04/18/2025 until 05/16/2025
CKD, required temporary HD 04/2025 admission, with subsequent improvement in creatinine and therefore HD stopped
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
CAD
s/p CABG with NAVAS to LAD, free radial to ramus, SVG to OM and SVG to PDA 2001
s/p cardiac cath with patent NAVAS to LAD, widely patent free radial to ramus, 100% occluded SVG to OM and 50 to 55% mid stenosis of the SVG to the PDA to be stable 03/15/2025
ICM EF 25-30%, post TAVR
carotid disease s/p left CEA in 2012
s/p Medtronic single chamber ICD 2017
Permanent Afib
Chronic Eliquis OAC
Orthostatic hypotension on chronic midodrine
DM 2
Gout
Former smoker, quit 03/2025
ECHO 12/03/22: EF 50%, mild LVH, stage III diastolic dysfunction, mild MR, severe with peak/mean gradients 54/28 mmHg, KAELYN 0.8 cm�, trace AR, mild TR, PAP 64 mmHg, mild dilation of aorta measuring 4.0 cm
Echo 10/09/2024: EF 35 to 40%, moderate eccentric MR, severe peak/mean 60/34 mmHg and KAELYN 0.8 cm sq, mild aortic insufficiency, moderate TR with PAP 64 mmHg
Echo 03/12/2025: EF 31%, global hypokinesis, moderate MR, severe peak/mean 41/22 mmHg and KAELYN 0.7 cm sq, mild aortic regurgitation, moderate to severe TR with PAP 72 mmHg
Echo 05/11/2025: s/p TAVR with #29 Donovan BLAISE 3 aortic valve prosthesis with peak/mean 6/3 mmHg, mild MR, moderate to severe TR with PAP 60 mmHg
Echo 05/21/2025: EF 25-30%, global hypokinesis basal inferior akinesis, TAVR with mean aortic valve gradient of 6, mildly dilated left atrium, mild mitral regurgitation, mild TR, unchanged from prior
Plan:
- Patient well-known to our service presents with worsening lower extremity edema and shortness of breath. Found to have proBNP 14117 and bilateral pleural effusions with pulmonary edema on x-ray consistent with acute heart failure exacerbation.
Also with JAY on CKD, suspected cardiorenal syndrome
- Continue diuresis with IV Lasix 80 mg twice daily. Creatinine improving, 2.1 today. Weight also trending down if accurate. Was on regimen of torsemide 40 mg daily with 2.5 mg of metolazone weekly just added to regimen 07/04
- As responding to diuresis, will hold off on addition of dobutamine for now
- Underwent right thoracentesis 07/11/2025 resulting in 1400 cc being drained. Last thoracentesis was 06/20 for 650 cc
- Wean supplemental O2 as able. Has been chronically requiring 2 L nasal cannula since TAVR admission
- Replete potassium and magnesium -goal of potassium greater than 4 and magnesium greater than 2
- Last echo from 05/21/2025 with EF 25 to 30%, stable by repeat 07/11 with well-seated TAVR and mild to moderate TR
- Hypotension has limited GDMT of cardiomyopathy. On midodrine 2.5 mg twice daily as outpatient. Continue low-dose Toprol. Renal insufficiency also limits addition of BRITTANY/ARB/ARNI/Aldactone/SGLT2
- In rate controlled A-fib, which is permanent as well as frequent PVCs and occasional couplets. Continue Eliquis.
- Troponin flat in 0.07 range. No complaints of chest pain. Suspected nonischemic myocardial injury in setting of acute CHF, known cardiomyopathy, acute renal insufficiency
Progress Note - Certified Dietary Manager
Subjective
Date of Service: July 11, 2025
Patient reports breathing improving
Objective
Labs:
07/11/25 05:34
07/11/25 05:34
Labs
Hgb 9.2 g/dL (13.0-18.0) L 07/11/25 05:34
Hct 28.3 % (39.0-52.0) L 07/11/25 05:34
Plt Count 182 10^3/uL (130-400) 07/11/25 05:34
Sodium 136 mmol/L (135-145) 07/11/25 05:34
Potassium 3.2 mmol/L (3.5-5.1) L 07/11/25 05:34
BUN 53 mg/dl (9-20) H 07/11/25 05:34
Creatinine 2.1 mg/dL (0.7-1.3) H 07/11/25 05:34
Glucose 142 mg/dl (70-99) H 07/11/25 05:34
Troponins
07/10/25 07/10/25 07/10/25
08:27 16:32 23:19
Troponin I 0.073 H* 0.072 H* 0.063 H*
07/11/25 07/11/25
03:23 05:34
Troponin I Cancelled 0.075 H*
Vital Signs and I&O:
Vital Signs
Temp Pulse Resp BP Pulse Ox
97.8 F 77 16 119/54 91
07/11/25 15:05 07/11/25 16:04 07/11/25 15:05 07/11/25 16:04 07/11/25 15:05
Vital Signs
Temp Pulse Resp BP Pulse Ox
97.8 F 77 16 119/54 91
07/11/25 15:05 07/11/25 16:04 07/11/25 15:05 07/11/25 16:04 07/11/25 15:05
Intake & Output
07/09/25 07/10/25 07/11/25 07/12/25
07:59 07:59 07:59 07:59
Intake Total 720 / 720 100 / 100
Output Total 1050 / 1050
Balance -330 / -330 100 / 100
[2025-07-11 17:30] LABS: Glucose - Point of Care 229 mg/dl (70-99)
[2025-07-11] MEDS: LIPITOR 80 MG PO (20:35)
[2025-07-11] MEDS: DESYREL 25 MG PO (20:35)
[2025-07-11 21:23] LABS: Glucose - Point of Care 234 mg/dl (70-99)
[2025-07-11] MEDS: LANTUS 0.09 UNITS SC (21:43)
[2025-07-12 03:24] VITALS: BP 111/50
[2025-07-12 05:44] VITALS: BMI 27.3
[2025-07-12 07:34] VITALS: BP 126/56
[2025-07-12 07:42] LABS: Glucose - Point of Care 140 mg/dl (70-99)
[2025-07-12] MEDS: ELIQUIS 5 MG PO ×2 (08:07→20:33)
[2025-07-12] MEDS: TOPROL XL 12.5 MG PO (08:07)
[2025-07-12] MEDS: MAGNESIUM OXIDE 400 MG PO (08:07)
[2025-07-12] MEDS: NOVOLOG FLEXPEN-LOW RESISTANCE SC (08:07)
[2025-07-12] MEDS: KCL ELIXIR 40 MEQ PO (08:07)
[2025-07-12] MEDS: PROTONIX 40 MG PO ×2 (08:07→20:33)
[2025-07-12] MEDS: LASIX 80 MG IV ×2 (08:07→15:19)
[2025-07-12] MEDS: ZYLOPRIM 100 MG PO (08:07)
[2025-07-12] MEDS: VITAMIN C 500 MG PO (08:07)
[2025-07-12] MEDS: TRUSOPT 2% OPHTHALMIC SOLUTION 1 DROP BOTH EYES ×2 (08:08→20:34)
[2025-07-12 08:38] LABS: Hematocrit 29.8 % (39.0-52.0); Hemoglobin 9.3 g/dL (13.0-18.0); Mean Corp Hgb Conc. 31.2 g/dL (33.0-37.0); Mean Corpuscular Volume 99.0 fL (80.0-94.0); Platelet Count 203 10^3/uL (130-400); Red Cell Dist. Width 14.9 % (11.5-14.5)
[2025-07-12 09:38] LABS: Blood Urea Nitrogen 56 mg/dl (9-20); Calcium 8.5 mg/dl (8.4-10.2); Carbon Dioxide 35 mmol/L (22-30); Chloride 98 mmol/L (98-107); Estimated Creatinine Clearance 23 ml/min; Glucose 139 mg/dl (70-99); Magnesium 2.1 mg/dl (1.6-2.3); Potassium 3.7 mmol/L (3.5-5.1); Sodium 135 mmol/L (135-145); eGFR 28.18
--- NOTE | 2025-07-12 10:16 | W.PN.NEPH.PH ---
Today's Communication / Plan
-
follow BMP
Assessment/Plan
-
IMP:
Acute exacerbation of HFrEF
Echo�05/21/2025, patient has an EF of 25 to 30% status post TAVR
bilateral pleural effusions
JAY on CKD stage IIIb- cr 1.5-2, Dr Yates
Hypomagnesemia
Paroxysmal A-fib
Elevated troponins
Type 2 diabetes mellitus
Orthostatic hypotension
Hyperlipidemia
Anemia
Gout
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
CAD/CABG x 4 (2001)
Medtronic single-chamber ICD, 2017
Carotid disease -s/p left CEA 2012.
h/o GI bleed 03/2025 , known h/o AVMS
h/o CVA
briefly on HD 05/2025 after TAVR
Plan:
continue IV diuresis lasix 80mg BID today
ramírez in place
replete Mag/K prn
d/w patient. He would still accept HD if needed again in the future
-
-
Date of Service: July 12, 2025
CC / HPI / ROS
-
Chief Complaint:
CKD
History of Present Illness:
CKD/Cr stable 2.3
s/p right thoracentesis 07/11 for 1.4L
BP stable on midodrine
on IV lasix for decompensated HF
K/Mg beetter
Review of Systems:
no CP/SOB
supplemental O2
Labs
-
Labs:
WBC 5.6 10^3/uL (4.8-10.8) 07/12/25 07:23
RBC 3.01 10^6/uL (4.70-6.10) L 07/12/25 07:23
Hgb 9.3 g/dL (13.0-18.0) L 07/12/25 07:23
Hct 29.8 % (39.0-52.0) L 07/12/25 07:23
Plt Count 203 10^3/uL (130-400) 07/12/25 07:23
Sodium 135 mmol/L (135-145) 07/12/25 07:23
Potassium 3.7 mmol/L (3.5-5.1) 07/12/25 07:23
Chloride 98 mmol/L (98-107) 07/12/25 07:23
Carbon Dioxide 35 mmol/L (22-30) H 07/12/25 07:23
BUN 56 mg/dl (9-20) H 07/12/25 07:23
Creatinine 2.3 mg/dL (0.7-1.3) H 07/12/25 07:23
eGFR 28.18 07/12/25 07:23
Glucose 139 mg/dl (70-99) H 07/12/25 07:23
Calcium 8.5 mg/dl (8.4-10.2) 07/12/25 07:23
Ikr-O-Cgcgiulepga Pept 07754 pg/ml 07/10/25 08:27
Albumin 2.7 g/dl (3.5-5.0) L 07/11/25 05:34
Physical Exam
-
Vital Signs:
Vital Signs
Temp Pulse Resp BP Pulse Ox
97.7 F 65 14 126/56 97
07/12/25 07:34 07/12/25 07:34 07/12/25 07:34 07/12/25 08:07 07/12/25 07:34
Cardiovascular:: Regular rate and rhythm
Respiratory:: Bilateral: Coarse
Lung Excursion:: Normal
Abdomen:: Nontender and Soft
Bowel Sounds:: Normal
Extremity Edema:: +3: Bilateral:
[2025-07-12 11:00] VITALS: BP 121/48
[2025-07-12 11:34] LABS: Glucose - Point of Care 203 mg/dl (70-99)
--- NOTE | 2025-07-12 11:35 | W.PN.HOSP.TC ---
Today's Communication/Plan
-
continue IV diuresis
monitor BMP
Assessment / Plan
Assessment / Plan
Assessment:
Acute on Chronic HFrEF
- Echo 05/21/25: EF of 25 to 30% status post TAVR
- elevated BNP
- continue IV Lasix BID; requires intensive monitoring of I/Os, weights, lytes
- consider Metolazone
- consider Dobutamine; if added will need IVU floor
- GDMT: BB. CKD precludes BRITTANY/ARB/ARNI
- salt/fluid restrictions
- DCA cards following
- repeat limited Echo 07/12: stable from prior but EF remains low 25-30%
nonischemic myocardial injury in setting of acute CHF and CKD
- trops relatively flat around .07; stop trending
Acute on chronic hypoxic respiratory failure
- baseline 2L, currently 2L - wean O2 as able
JAY, cardiorenal in setting of CKD stage 3b
- nephrology following
- monitor BMP
- patient/family do confirm that they would accept HD again if indicated
Hypokalemia
- continue daily repletion
Bilateral pleural effusions
- R>L on CXR
- [facility] consult for R thoracentesis, labs ordered
Hypomagnesemia
- s/p aggressive IV and oral repletion
- daily level
Paroxysmal A-fib
- continue Eliquis/BB
Type 2 diabetes mellitus
- continue home dose Lantus
- continue low-dose SSI
Orthostatic hypotension
- continue home midodrine
Hyperlipidemia
- continue atorvastatin
Anemia, Chronic, macrocytic
- monitor CBCs
- baseline between 8-9s
Gout
- continue allopurinol
DVT ppx: Eliquis
Code: Full
Received TT from Sherri vallejo/ for this patient; stating she had started goals of care discussions. Reviewed with patient and Neli; plans at this time are full measures. All consultants notified.
Anticipated Discharge: > 48 hours
Subjective/Interval History
-
Date of Service: July 12, 2025
s/p 1.4L removed from thoracentesis yesterday
denies CP or SOB
down to 2L from 4-6L NC
Objective Data
-
Labs:
Laboratory Results
07/12/25
07:23
WBC 5.6
Hgb 9.3 L
Hct 29.8 L
Plt Count 203
Sodium 135
Potassium 3.7
Chloride 98
Carbon Dioxide 35 H
BUN 56 H
Creatinine 2.3 H
Glucose 139 H
Calcium 8.5
Vital Signs:
Vital Signs
Temp Pulse Resp BP Pulse Ox
98.2 F 73 20 121/48 94
07/12/25 11:00 07/12/25 11:00 07/12/25 11:00 07/12/25 11:00 07/12/25 11:00
I&O
07/11/25 07/12/25 07/13/25
06:59 06:59 06:59
Intake Total 720 / 720 1060 / 1060
Output Total 1050 / 1050 1075 / 1075
Balance -330 / -330 -15 / -15
Physical Exam
-
General: No Apparent Distress
HEENT: Normocephalic and Atraumatic
Respiratory: Crackles and Decreased Breath Sounds
Cardiac: Regular Rhythm and S1/S2
Musculoskeletal: Edema, Right Lower Extrem and Edema, Left Lower Extrem
Neuro: AO x 3
Psych: Calm
Data Reviewed
-
Total Time Spent with Patient (in minutes): 51
Labs: Labs Reviewed by me
[2025-07-12] MEDS: VITAMIN B-12 1000 MCG PO (12:23)
[2025-07-12] MEDS: FEOSOL 325 MG PO (12:23)
--- NOTE | 2025-07-12 12:24 | W.PN.CARDCBS ---
Today's Communication / Plan
-
Remains volume overloaded with worsening renal insufficiency
May end up needing hemodialysis
Could consider adding dobutamine but would avoid right heart cath as did not want to interrupt anticoagulation with recent CVA
Impression / Plan
-
Primary Lamp Developer: Dr. Sutton
Primary Clockmaker Apprentice: Dr. Yates
Assessment:
Presentation with LE edema, SOB
Acute on chronic HFrEF
B/L pleural effusions/status post right thoracentesis
JAY on CKD, suspected cardiorenal syndrome
Elevated trop, suspected nonischemic myocardial injury
Hypomagnesemia
s/p R thora 06/20/25
Chronic respiratory insufficiency, on 2 L nasal cannula continuous
Left frontoparietal stroke 05/2025
Admission for acute HFrEF, JAY leading to new HD and TAVR 04/18/2025 until 05/16/2025
CKD, required temporary HD 04/2025 admission, with subsequent improvement in creatinine and therefore HD stopped
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
CAD
s/p CABG with NAVAS to LAD, free radial to ramus, SVG to OM and SVG to PDA 2001
s/p cardiac cath with patent NAVAS to LAD, widely patent free radial to ramus, 100% occluded SVG to OM and 50 to 55% mid stenosis of the SVG to the PDA to be stable 03/15/2025
ICM EF 25-30%, post TAVR
carotid disease s/p left CEA in 2012
s/p Medtronic single chamber ICD 2017
Permanent Afib
Chronic Eliquis OAC
Orthostatic hypotension on chronic midodrine
DM 2
Gout
Former smoker, quit 03/2025
ECHO 12/03/22: EF 50%, mild LVH, stage III diastolic dysfunction, mild MR, severe with peak/mean gradients 54/28 mmHg, KAELYN 0.8 cm�, trace AR, mild TR, PAP 64 mmHg, mild dilation of aorta measuring 4.0 cm
Echo 10/09/2024: EF 35 to 40%, moderate eccentric MR, severe peak/mean 60/34 mmHg and KAELYN 0.8 cm sq, mild aortic insufficiency, moderate TR with PAP 64 mmHg
Echo 03/12/2025: EF 31%, global hypokinesis, moderate MR, severe peak/mean 41/22 mmHg and KAELYN 0.7 cm sq, mild aortic regurgitation, moderate to severe TR with PAP 72 mmHg
Echo 05/11/2025: s/p TAVR with #29 Donovan BLAISE 3 aortic valve prosthesis with peak/mean 6/3 mmHg, mild MR, moderate to severe TR with PAP 60 mmHg
Echo 05/21/2025: EF 25-30%, global hypokinesis basal inferior akinesis, TAVR with mean aortic valve gradient of 6, mildly dilated left atrium, mild mitral regurgitation, mild TR, unchanged from prior
Plan:
He appears to remain volume overloaded
Of note creatinine has worsened slightly to 2.3
Await nephrology input but may end up going back on hemodialysis
We could consider adding dobutamine.
Would not do right heart cath as would not want to interrupt anticoagulation given recent CVA
Hypotension has limited GDMT of cardiomyopathy. On midodrine 2.5 mg twice daily as outpatient. Continue low-dose Toprol. Renal insufficiency also limits addition of BRITTANY/ARB/ARNI/Aldactone/SGLT2
In rate controlled A-fib, which is permanent as well as frequent PVCs and occasional couplets. Continue Eliquis.
Troponin flat in 0.07 range. No complaints of chest pain. Suspected nonischemic myocardial injury in setting of acute CHF, known cardiomyopathy, acute renal insufficiency
Progress Note - Lamp Developer
Subjective
Date of Service: July 12, 2025
No chest pain or shortness of breath.
Objective
Labs:
07/12/25 07:23
07/12/25 07:23
Labs
Hgb 9.3 g/dL (13.0-18.0) L 07/12/25 07:23
Hct 29.8 % (39.0-52.0) L 07/12/25 07:23
Plt Count 203 10^3/uL (130-400) 07/12/25 07:23
Sodium 135 mmol/L (135-145) 07/12/25 07:23
Potassium 3.7 mmol/L (3.5-5.1) 07/12/25 07:23
BUN 56 mg/dl (9-20) H 07/12/25 07:23
Creatinine 2.3 mg/dL (0.7-1.3) H 07/12/25 07:23
Glucose 139 mg/dl (70-99) H 07/12/25 07:23
Troponins
07/10/25 07/10/25 07/10/25
08:27 16:32 23:19
Troponin I 0.073 H* 0.072 H* 0.063 H*
07/11/25 07/11/25
03:23 05:34
Troponin I Cancelled 0.075 H*
Vital Signs and I&O:
Vital Signs
Temp Pulse Resp BP Pulse Ox
98.2 F 73 20 121/48 94
07/12/25 11:00 07/12/25 11:00 07/12/25 11:00 07/12/25 11:00 07/12/25 11:00
Vital Signs
Temp Pulse Resp BP Pulse Ox
98.2 F 73 20 121/48 94
07/12/25 11:00 07/12/25 11:00 07/12/25 11:00 07/12/25 11:00 07/12/25 11:00
Intake & Output
07/10/25 07/11/25 07/12/25 07/13/25
06:59 06:59 06:59 06:59
Intake Total 720 / 720 1060 / 1060
Output Total 1050 / 1050 1075 / 1075
Balance -330 / -330 -15 / -15
Physical Exam
Physical Exam
General: Well developed, well nourished in NAD.
Neck: Supple, no JVD, HJR, carotids +2 B/L, no bruits bilaterally.
Heart: Non displaced PMI, RRR, no murmurs, No S3, S4, no rubs.
Lungs: Crackles at the bases bilaterally
Extremities: No clubbing, cyanosis or edema bilaterally.
Neuro: Grossly nonfocal, awake, alert and oriented x3.
[2025-07-12] MEDS: NOVOLOG FLEXPEN-LOW RESISTANCE 2 UNITS SC (12:25)
[2025-07-12] MEDS: DUONEB 3 ML INH (12:40)
[2025-07-12 15:00] VITALS: BP 128/63
--- NOTE | 2025-07-12 16:05 | CM ---
Per patient physician patient with questions regarding discharge options. Message left for patient on home phone and reached her via cell phone. Patient with questions about speech therapy. Patient complained that she primarily
wants longer Speech therapy and is requesting referral to [facility] for speech therapy. Patient may need to return to HD and CM will need to clarify if patient HD was paused or the file closed with [facility]. CM called to [phone] and per ondina
patient case closed 05/21/25 patient would need to have new case started with HD. Patient states that she does not want to have patient go to [facility] as it is to far away. Patient requested call tomorrow to follow up on physician
recommendations as patient not medically close to discharge per . CM will update physician and continue to follow for discharge planning needs.
Plan; pending medical treatment plan
[2025-07-12 17:06] LABS: Glucose - Point of Care 256 mg/dl (70-99)
[2025-07-12] MEDS: NOVOLOG FLEXPEN-LOW RESISTANCE 3 UNITS SC (17:09)
[2025-07-12 19:37] VITALS: BP 118/53
[2025-07-12] MEDS: DESYREL 25 MG PO (21:27)
[2025-07-12] MEDS: LANTUS 0.09 UNITS SC (21:29)
[2025-07-12] MEDS: LIPITOR 80 MG PO (21:29)
[2025-07-12 21:31] LABS: Glucose - Point of Care 265 mg/dl (70-99)
[2025-07-12 23:23] VITALS: BP 139/65
[2025-07-13] VITALS (7 sets, daily range): BP systolic 103–142; BP diastolic 41–69; O2SAT 97; BMI 27.3
[2025-07-13 07:13] LABS: Hematocrit 28.5 % (39.0-52.0); Hemoglobin 9.0 g/dL (13.0-18.0); Mean Corp Hgb Conc. 31.6 g/dL (33.0-37.0); Mean Corpuscular Volume 98.3 fL (80.0-94.0); Platelet Count 200 10^3/uL (130-400); Red Cell Dist. Width 14.8 % (11.5-14.5)
[2025-07-13 07:45] LABS: Blood Urea Nitrogen 55 mg/dl (9-20); Calcium 8.5 mg/dl (8.4-10.2); Carbon Dioxide 34 mmol/L (22-30); Chloride 98 mmol/L (98-107); Estimated Creatinine Clearance 24 ml/min; Glucose 79 mg/dl (70-99); Magnesium 2.0 mg/dl (1.6-2.3); Potassium 3.9 mmol/L (3.5-5.1); Sodium 134 mmol/L (135-145); eGFR 29.72
[2025-07-13 07:51] LABS: Glucose - Point of Care 89 mg/dl (70-99)
[2025-07-13] MEDS: NOVOLOG FLEXPEN-LOW RESISTANCE SC (08:44)
[2025-07-13] MEDS: VITAMIN C 500 MG PO (08:50)
[2025-07-13] MEDS: MAGNESIUM OXIDE 400 MG PO (08:51)
[2025-07-13] MEDS: PROTONIX 40 MG PO ×2 (08:51→20:09)
[2025-07-13] MEDS: ZYLOPRIM 100 MG PO (08:51)
[2025-07-13] MEDS: ELIQUIS 5 MG PO ×2 (08:51→20:08)
[2025-07-13] MEDS: KCL ELIXIR 40 MEQ PO (08:52)
[2025-07-13] MEDS: TRUSOPT 2% OPHTHALMIC SOLUTION 1 DROP BOTH EYES ×2 (09:03→20:08)
[2025-07-13] MEDS: TOPROL XL 12.5 MG PO (09:23)
[2025-07-13] MEDS: LASIX 80 MG IV ×2 (09:24→15:15)
--- NOTE | 2025-07-13 11:56 | PTOTSP ---
Video Swallow Examination
Mild oral dysphagia with incomplete oral clearance following initial swallow. Mild to moderate pharyngeal dysphagia characterized by delayed laryngeal vestibular closure and swallow onset along with inconsistent epiglottic inversion that resulted in
trace upper laryngeal penetration of thin and mildly thick liquid and vallecular stasis. Use of chin tuck improved pharyngeal clearance but was inconsistent in eliminating trace upper laryngeal penetration. Of note frequent congested coughing and
occasional expectoration during study without observed aspiration.
Recommend
1. Continue current diet of Level 6/Moderately thick Liquids
2. Meds whole in applesauce
3. Aspiration precautions/upright with all meals.
4. Chin tuck and dry swallow with all intake (liquid and solid)
5. Intermittent cough and throat clear followed by dry swallow.
6. Diligent oral care - Allow ice chips per [facility]
7. WHEEL ALIGNMENT TECHNICIAN follow up to improve patient use of strategies, increase airway protection/cough strength. WHEEL ALIGNMENT TECHNICIAN also recommended in next level of care to assist with advancing to thinner liquids.
[2025-07-13 12:35] LABS: Glucose - Point of Care 212 mg/dl (70-99)
[2025-07-13] MEDS: VITAMIN B-12 1000 MCG PO (13:04)
[2025-07-13] MEDS: FEOSOL 325 MG PO (13:04)
[2025-07-13] MEDS: NOVOLOG FLEXPEN-LOW RESISTANCE 2 UNITS SC ×2 (13:06→16:59)
--- NOTE | 2025-07-13 14:02 | W.PN.NEPH.PH ---
Today's Communication / Plan
-
Continue diuretic
Assessment/Plan
-
IMP:
Acute exacerbation of HFrEF
Echo�05/21/2025, patient has an EF of 25 to 30% status post TAVR
bilateral pleural effusions
JAY on CKD stage IIIb- cr 1.5-2, Dr Yates
Hypomagnesemia
Paroxysmal A-fib
Elevated troponins
Type 2 diabetes mellitus
Orthostatic hypotension
Hyperlipidemia
Anemia
Gout
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
CAD/CABG x 4 (2001)
Medtronic single-chamber ICD, 2017
Carotid disease -s/p left CEA 2012.
h/o GI bleed 03/2025 , known h/o AVMS
h/o CVA
briefly on HD 05/2025 after TAVR
Plan:
continue IV diuresis lasix 80mg BID today
ramírez in place
replete Mag/K prn
d/w patient. He would still accept HD if needed again in the future but no indication at this time
A.m. labs
-
-
Date of Service: July 13, 2025
CC / HPI / ROS
-
Chief Complaint:
CKD
History of Present Illness:
CKD/Cr stable 2.3
s/p right thoracentesis 07/11 for 1.4L
BP stable on midodrine
on IV lasix for decompensated HF
K/Mg beetter
Review of Systems:
no CP/SOB
supplemental O2
Labs
-
Labs:
WBC 5.8 10^3/uL (4.8-10.8) 07/13/25 06:14
RBC 2.90 10^6/uL (4.70-6.10) L 07/13/25 06:14
Hgb 9.0 g/dL (13.0-18.0) L 07/13/25 06:14
Hct 28.5 % (39.0-52.0) L 07/13/25 06:14
Plt Count 200 10^3/uL (130-400) 07/13/25 06:14
Sodium 134 mmol/L (135-145) L 07/13/25 06:14
Potassium 3.9 mmol/L (3.5-5.1) 07/13/25 06:14
Chloride 98 mmol/L (98-107) 07/13/25 06:14
Carbon Dioxide 34 mmol/L (22-30) H 07/13/25 06:14
BUN 55 mg/dl (9-20) H 07/13/25 06:14
Creatinine 2.2 mg/dL (0.7-1.3) H 07/13/25 06:14
eGFR 29.72 07/13/25 06:14
Glucose 79 mg/dl (70-99) 07/13/25 06:14
Calcium 8.5 mg/dl (8.4-10.2) 07/13/25 06:14
Zwt-R-Golwvktyrhs Pept 49301 pg/ml 07/10/25 08:27
Albumin 2.7 g/dl (3.5-5.0) L 07/11/25 05:34
Physical Exam
-
Vital Signs:
Vital Signs
Temp Pulse Resp BP Pulse Ox
98.1 F 77 16 114/48 95
07/13/25 11:00 07/13/25 11:00 07/13/25 11:00 07/13/25 11:00 07/13/25 11:00
Cardiovascular:: Regular rate and rhythm
Respiratory:: Bilateral: Coarse
Lung Excursion:: Normal
Abdomen:: Nontender and Soft
Bowel Sounds:: Normal
Extremity Edema:: +3: Bilateral:
--- NOTE | 2025-07-13 14:47 | W.PN.HOSP.TC ---
Today's Communication/Plan
-
continue IV Lasix; Metolazone per cards/renal
Assessment / Plan
Assessment / Plan
Assessment:
Acute on Chronic HFrEF
- Echo 05/21/25: EF of 25 to 30% status post TAVR
- elevated BNP
- continue IV Lasix BID; requires intensive monitoring of I/Os, weights, lytes
- Metolazone as per Cards/Renal
- consider Dobutamine; may need RHC first
- GDMT: BB. CKD precludes BRITTANY/ARB/ARNI
- salt/fluid restrictions
- DCA cards following
- repeat limited Echo 07/12: stable from prior but EF remains low 25-30%
nonischemic myocardial injury in setting of acute CHF and CKD
- trops relatively flat around .07; stop trending
Acute on chronic hypoxic respiratory failure
- baseline 2L, currently 2L - wean O2 as able
JAY, cardiorenal in setting of CKD stage 3b
- nephrology following
- monitor BMP
- patient/family do confirm that they would accept HD again if indicated
Hypokalemia
- continue daily repletion
Bilateral pleural effusions
- R>L on CXR
- s/p R thoracentesis 07/11 with 1.4 L removed
Hypomagnesemia
- s/p aggressive IV and oral repletion
- daily level
Paroxysmal A-fib
- continue Eliquis/BB
Type 2 diabetes mellitus
- continue home dose Lantus
- continue low-dose SSI
Orthostatic hypotension
- continue home midodrine
Hyperlipidemia
- continue atorvastatin
Anemia, Chronic, macrocytic
- monitor CBCs
- baseline between 8-9s
Gout
- continue allopurinol
DVT ppx: Eliquis
Code: Full
Received TT from [facility] for this patient; stating she had started goals of care discussions. Reviewed with patient and Neli; plans at this time are full measures. All consultants notified.
Anticipated Discharge: > 48 hours
Subjective/Interval History
-
Date of Service: July 13, 2025
no cp or sob
remains on 2L NC
Objective Data
-
Labs:
Laboratory Results
07/13/25
06:14
WBC 5.8
Hgb 9.0 L
Hct 28.5 L
Plt Count 200
Sodium 134 L
Potassium 3.9
Chloride 98
Carbon Dioxide 34 H
BUN 55 H
Creatinine 2.2 H
Glucose 79
Calcium 8.5
Vital Signs:
Vital Signs
Temp Pulse Resp BP Pulse Ox
98.1 F 77 16 114/48 95
07/13/25 11:00 07/13/25 11:00 07/13/25 11:00 07/13/25 11:00 07/13/25 11:00
I&O
07/12/25 07/13/25 07/14/25
06:59 06:59 06:59
Intake Total 1060 / 1060 1160 / 1160
Output Total 1075 / 1075 805 / 805
Balance -15 / -15 355 / 355
Physical Exam
-
General: No Apparent Distress
HEENT: Normocephalic and Atraumatic
Respiratory: Negative Wheezes
Cardiac: Regular Rhythm and S1/S2
Rectal: Brown
Musculoskeletal: Edema, Right Lower Extrem and Edema, Left Lower Extrem
Neuro: AO x 3
Psych: Calm
Data Reviewed
-
Total Time Spent with Patient (in minutes): 51
Labs: Labs Reviewed by me
[2025-07-13] MEDS: ZAROXOLYN 2.5 MG PO (15:18)
--- NOTE | 2025-07-13 16:28 | W.PN.CARDCBS ---
Addendum entered and electronically signed by Tj Michel MD 07/13/25 16:57:
I saw and examined the patient.
The Hot Metal Charger's note was reviewed and I agree with the note.
Comment: Briefly, 79-year-old man past medical history of heart failure with reduced ejection fraction and CKD who presents in acute decompensated heart failure
Volume status has slowly improved with IV Lasix 80 mg twice daily but still requiring supplemental oxygen
Objectively his weight has come down 9 pounds if accurate-continue daily standing weights
Received metolazone 2.5 mg earlier today. Patient's reports that he responded well to this as an outpatient in the past. Will reassess on a daily basis regarding additional doses of metolazone.
As creatinine is relatively stable and he is responding to diuretics I do not see a clear indication for right heart catheterization or dobutamine at this time
A-fib is permanent
Metoprolol for rate control
Eliquis for risk reduction of cardioembolic stroke
Rest per Niurka Patterson
Original Note:
Today's Communication / Plan
-
Continue IV Lasix. Add metolazone
If does not respond to addition/up titration of metolazone, would consider dobutamine
Follow creatinine
Wean supplemental oxygen
Compression stockings/leg elevation
Impression / Plan
-
Primary Business And Marketing Teacher: Dr. Sutton
Primary Shoe Cobbler: Dr. Yates
Assessment:
Presentation with LE edema, SOB
Acute on chronic HFrEF
B/L pleural effusions/status post right thoracentesis
JAY on CKD, suspected cardiorenal syndrome
Elevated trop, suspected nonischemic myocardial injury
Hypomagnesemia
s/p R thora 06/20/25
Chronic respiratory insufficiency, on 2 L nasal cannula continuous
Left frontoparietal stroke 05/2025
Admission for acute HFrEF, JAY leading to new HD and TAVR 04/18/2025 until 05/16/2025
CKD, required temporary HD 04/2025 admission, with subsequent improvement in creatinine and therefore HD stopped
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
CAD
s/p CABG with NAVAS to LAD, free radial to ramus, SVG to OM and SVG to PDA 2001
s/p cardiac cath with patent NAVAS to LAD, widely patent free radial to ramus, 100% occluded SVG to OM and 50 to 55% mid stenosis of the SVG to the PDA to be stable 03/15/2025
ICM EF 25-30%, post TAVR
carotid disease s/p left CEA in 2012
s/p Medtronic single chamber ICD 2017
Permanent Afib
Chronic Eliquis OAC
Orthostatic hypotension on chronic midodrine
DM 2
Gout
Former smoker, quit 03/2025
ECHO 12/03/22: EF 50%, mild LVH, stage III diastolic dysfunction, mild MR, severe with peak/mean gradients 54/28 mmHg, KAELYN 0.8 cm�, trace AR, mild TR, PAP 64 mmHg, mild dilation of aorta measuring 4.0 cm
Echo 10/09/2024: EF 35 to 40%, moderate eccentric MR, severe peak/mean 60/34 mmHg and KAELYN 0.8 cm sq, mild aortic insufficiency, moderate TR with PAP 64 mmHg
Echo 03/12/2025: EF 31%, global hypokinesis, moderate MR, severe peak/mean 41/22 mmHg and KAELYN 0.7 cm sq, mild aortic regurgitation, moderate to severe TR with PAP 72 mmHg
Echo 05/11/2025: s/p TAVR with #29 Donovan BLAISE 3 aortic valve prosthesis with peak/mean 6/3 mmHg, mild MR, moderate to severe TR with PAP 60 mmHg
Echo 05/21/2025: EF 25-30%, global hypokinesis basal inferior akinesis, TAVR with mean aortic valve gradient of 6, mildly dilated left atrium, mild mitral regurgitation, mild TR, unchanged from prior
Plan:
- Continues to show evidence of gross volume overload
- Continue 80 mg IV Lasix twice daily. Will add metolazone 2.5 mg today and assess response patient was using metolazone in outpatient setting in addition
- Creatinine above baseline, however relatively stable at 2.2. Nephrology following. he previously required transient HD in past
- If does not diurese with metolazone, would consider addition of dobutamine
- Wean supplemental O2 as able
- Compression stockings and leg elevation recommended
- Hypotension has limited GDMT of cardiomyopathy. On midodrine 2.5 mg twice daily as outpatient. Continue low-dose Toprol as BP allows Renal insufficiency also limits addition of BRITTANY/ARB/ARNI/Aldactone/SGLT2
- In rate controlled A-fib on review of tele, which is permanent as well as frequent PVCs and occasional couplets. Continue Eliquis.
- Troponin flat in 0.07 range. No complaints of chest pain. Suspected nonischemic myocardial injury in setting of acute CHF, known cardiomyopathy, acute renal insufficiency
- high risk situation
- d/w nursing. d/w patient and at bedside
Progress Note - Business And Marketing Teacher
Subjective
Date of Service: July 13, 2025
Remains with significant lower extremity edema. No chest pain
Objective
Labs:
07/13/25 06:14
07/13/25 06:14
Labs
Hgb 9.0 g/dL (13.0-18.0) L 07/13/25 06:14
Hct 28.5 % (39.0-52.0) L 07/13/25 06:14
Plt Count 200 10^3/uL (130-400) 07/13/25 06:14
Sodium 134 mmol/L (135-145) L 07/13/25 06:14
Potassium 3.9 mmol/L (3.5-5.1) 07/13/25 06:14
BUN 55 mg/dl (9-20) H 07/13/25 06:14
Creatinine 2.2 mg/dL (0.7-1.3) H 07/13/25 06:14
Glucose 79 mg/dl (70-99) 07/13/25 06:14
Troponins
07/10/25 07/10/25 07/11/25
16:32 23:19 03:23
Troponin I 0.072 H* 0.063 H* Cancelled
07/11/25
05:34
Troponin I 0.075 H*
Vital Signs and I&O:
Vital Signs
Temp Pulse Resp BP Pulse Ox
98.3 F 76 16 119/54 97
07/13/25 15:04 07/13/25 15:04 07/13/25 15:04 07/13/25 15:04 07/13/25 15:04
Vital Signs
Temp Pulse Resp BP Pulse Ox
98.3 F 76 16 119/54 97
07/13/25 15:04 07/13/25 15:04 07/13/25 15:04 07/13/25 15:04 07/13/25 15:04
Intake & Output
07/11/25 07/12/25 07/13/25 07/14/25
07:59 07:59 07:59 07:59
Intake Total 720 / 720 1060 / 1060 1160 / 1160
Output Total 1050 / 1050 1075 / 1075 805 / 805
Balance -330 / -330 -15 / -15 355 / 355
Physical Exam
Physical Exam
GEN: No distress, awake, alert, oriented x3. Sitting in chair. On supplemental O2
HEENT: supple, anicteric, mmm, eomi
LUNGS: CTA, no wheezes/rales
CV: Irreg, S1/S2, 1/6 syst LSB
ABD: soft, BS+, NT/ND
EXT: No cyanosis, clubbing. 4+ edema of B/L LE
NEURO: Gross non-focal
SKIN: Warm, pink, dry. No rash
[2025-07-13 16:43] LABS: Glucose - Point of Care 205 mg/dl (70-99)
[2025-07-13] MEDS: LANTUS 0.09 UNITS SC (21:17)
[2025-07-13] MEDS: DESYREL 25 MG PO (21:17)
[2025-07-13] MEDS: LIPITOR 80 MG PO (21:17)
[2025-07-13 21:18] LABS: Glucose - Point of Care 235 mg/dl (70-99)
[2025-07-14 03:28] VITALS: BP 127/55
[2025-07-14 05:36] VITALS: BMI 27.4
[2025-07-14 06:00] VITALS: BMI 27.4
[2025-07-14 07:00] VITALS: BP 123/53
[2025-07-14 08:05] LABS: Glucose - Point of Care 158 mg/dl (70-99)
[2025-07-14 08:15] LABS: Hematocrit 29.1 % (39.0-52.0); Hemoglobin 9.3 g/dL (13.0-18.0); Mean Corp Hgb Conc. 32.0 g/dL (33.0-37.0); Mean Corpuscular Volume 101.4 fL (80.0-94.0); Platelet Count 191 10^3/uL (130-400); Red Cell Dist. Width 14.5 % (11.5-14.5)
[2025-07-14] MEDS: ZYLOPRIM 100 MG PO (08:23)
[2025-07-14] MEDS: ELIQUIS 5 MG PO (08:23)
[2025-07-14] MEDS: TOPROL XL 12.5 MG PO (08:23)
[2025-07-14] MEDS: PROTONIX 40 MG PO ×2 (08:23→20:26)
[2025-07-14] MEDS: VITAMIN C 500 MG PO (08:23)
[2025-07-14] MEDS: NOVOLOG FLEXPEN-LOW RESISTANCE 1 UNITS SC (08:24)
[2025-07-14] MEDS: KCL ELIXIR 40 MEQ PO (08:24)
[2025-07-14] MEDS: MAGNESIUM OXIDE 400 MG PO (08:24)
[2025-07-14] MEDS: LASIX 80 MG IV (08:24)
[2025-07-14] MEDS: TRUSOPT 2% OPHTHALMIC SOLUTION 1 DROP BOTH EYES ×2 (08:25→20:26)
[2025-07-14] MEDS: FLUSH (NSS) 2 FLUSH IV ×2 (08:26→17:53)
[2025-07-14 08:42] LABS: Blood Urea Nitrogen 61 mg/dl (9-20); Calcium 8.6 mg/dl (8.4-10.2); Carbon Dioxide 36 mmol/L (22-30); Chloride 97 mmol/L (98-107); Estimated Creatinine Clearance 24 ml/min; Glucose 135 mg/dl (70-99); Magnesium 1.9 mg/dl (1.6-2.3); Potassium 4.2 mmol/L (3.5-5.1); Sodium 136 mmol/L (135-145); eGFR 29.72
[2025-07-14 11:00] VITALS: BP 115/56
--- NOTE | 2025-07-14 11:42 | W.PN.HOSP.TC ---
Today's Communication/Plan
-
continue IV Lasix; Metolazone per cards/renal
repeat CXR Wednesday
Assessment / Plan
Assessment / Plan
Assessment:
Acute on Chronic HFrEF
- Echo 05/21/25: EF of 25 to 30% status post TAVR
- elevated BNP
- continue IV Lasix BID; requires intensive monitoring of I/Os, weights, lytes
- Metolazone as per Cards/Renal
- consider Dobutamine; may need RHC first; no plan for this now after review with Cards
- GDMT: BB. CKD precludes BRITTANY/ARB/ARNI
- salt/fluid restrictions
- DCA cards following
- repeat limited Echo 07/12: stable from prior but EF remains low 25-30%
nonischemic myocardial injury in setting of acute CHF and CKD
- trops relatively flat around .07; stop trending
Acute on chronic hypoxic respiratory failure
- baseline 2L, currently 2L - wean O2 as able
JAY, cardiorenal in setting of CKD stage 3b
- nephrology following
- monitor BMP
- patient/family do confirm that they would accept HD again if indicated
Hypokalemia
- continue daily repletion
Bilateral pleural effusions
- R>L on CXR
- s/p R thoracentesis 07/11 with 1.4 L removed
- repeat CXR Wednesday
Hypomagnesemia
- s/p aggressive IV and oral repletion
- daily level
Paroxysmal A-fib
- continue Eliquis/BB
Type 2 diabetes mellitus
- continue home dose Lantus
- continue low-dose SSI
Orthostatic hypotension
- continue home midodrine
Hyperlipidemia
- continue atorvastatin
Anemia, Chronic, macrocytic
- monitor CBCs
- baseline between 8-9s
Gout
- continue allopurinol
DVT ppx: Eliquis
Code: Full
Received TT from [facility]/ for this patient; stating she had started goals of care discussions. Reviewed with patient and Neli; plans at this time are full measures. All consultants notified.
Anticipated Discharge: > 48 hours
Subjective/Interval History
-
Date of Service: July 14, 2025
some increased output on afternoon metolazone
denies cp or SOB
Objective Data
-
Labs:
Laboratory Results
07/14/25
07:55
WBC 6.0
Hgb 9.3 L
Hct 29.1 L
Plt Count 191
Sodium 136
Potassium 4.2
Chloride 97 L
Carbon Dioxide 36 H
BUN 61 H
Creatinine 2.2 H
Glucose 135 H
Calcium 8.6
Vital Signs:
Vital Signs
Temp Pulse Resp BP Pulse Ox
97.9 F 76 16 123/53 94
07/14/25 07:00 07/14/25 07:00 07/14/25 07:00 07/14/25 07:00 07/14/25 07:00
I&O
07/13/25 07/14/25 07/15/25
06:59 06:59 06:59
Intake Total 1160 / 1160 1360 / 1360
Output Total 805 / 805 950 / 950
Balance 355 / 355 410 / 410
Physical Exam
-
General: No Apparent Distress
HEENT: Normocephalic and Atraumatic
Respiratory: Negative Wheezes
Cardiac: Regular Rhythm
GI: Soft
Musculoskeletal: Edema, Right Lower Extrem and Edema, Left Lower Extrem
Neuro: AO x 3
Psych: Calm
Data Reviewed
-
Total Time Spent with Patient (in minutes): 51
Labs: Labs Reviewed by me
[2025-07-14 12:00] LABS: Glucose - Point of Care 243 mg/dl (70-99)
[2025-07-14] MEDS: NOVOLOG FLEXPEN-LOW RESISTANCE 2 UNITS SC ×2 (12:25→17:53)
[2025-07-14] MEDS: FEOSOL 325 MG PO (12:26)
[2025-07-14] MEDS: VITAMIN B-12 1000 MCG PO (12:30)
--- NOTE | 2025-07-14 12:34 | W.PN.NEPH.PH ---
Today's Communication / Plan
-
Discontinue Lasix and no further metolazone with increasing alkalosis. Positive fluid balance remains
Start Diamox for 3 days
Suggest right heart cath
Assessment/Plan
-
IMP:
Acute exacerbation of HFrEF
Echo�05/21/2025, patient has an EF of 25 to 30% status post TAVR
bilateral pleural effusions
JAY on CKD stage IIIb- cr 1.5-2, Dr Yates
Hypomagnesemia
Paroxysmal A-fib
Elevated troponins
Type 2 diabetes mellitus
Orthostatic hypotension
Hyperlipidemia
Anemia
Gout
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
CAD/CABG x 4 (2001)
Medtronic single-chamber ICD, 2017
Carotid disease -s/p left CEA 2012.
h/o GI bleed 03/2025 , known h/o AVMS
h/o CVA
briefly on HD 05/2025 after TAVR
Plan:
Status post thoracentesis 07/11 [address]
replete Mag/K prn
d/w patient. He would still accept HD if needed again in the future but no indication at this time
Bicarbonate up to 36 with creatinine stable at 2.2 with minimal urine output on 80 mg IV Lasix twice a day.
Ejection fraction on this admission confirms EF 25 to 30%
Not making any progress with the diuresis in the increasing alkalosis. Either way we will need to discontinue the loop diuretic at this time.
I will start him on Diamox for a few days.
Remains on 4 L of oxygen with his baseline around 2 L
At this time I do believe now right heart cath would be helpful
-
-
Date of Service: July 14, 2025
CC / HPI / ROS
-
Chief Complaint:
CKD
History of Present Illness:
CKD/Cr stable 2.3
s/p right thoracentesis 07/11 for 1.4L
BP stable on midodrine
on IV lasix for decompensated HF
K/Mg beetter
Review of Systems:
No chest pain
supplemental O2 4 L continue
Labs
-
Labs:
WBC 6.0 10^3/uL (4.8-10.8) 07/14/25 07:55
RBC 2.87 10^6/uL (4.70-6.10) L 07/14/25 07:55
Hgb 9.3 g/dL (13.0-18.0) L 07/14/25 07:55
Hct 29.1 % (39.0-52.0) L 07/14/25 07:55
Plt Count 191 10^3/uL (130-400) 07/14/25 07:55
Sodium 136 mmol/L (135-145) 07/14/25 07:55
Potassium 4.2 mmol/L (3.5-5.1) 07/14/25 07:55
Chloride 97 mmol/L (98-107) L 07/14/25 07:55
Carbon Dioxide 36 mmol/L (22-30) H 07/14/25 07:55
BUN 61 mg/dl (9-20) H 07/14/25 07:55
Creatinine 2.2 mg/dL (0.7-1.3) H 07/14/25 07:55
eGFR 29.72 07/14/25 07:55
Glucose 135 mg/dl (70-99) H 07/14/25 07:55
Calcium 8.6 mg/dl (8.4-10.2) 07/14/25 07:55
Nop-S-Hduzdoleyjc Pept 68692 pg/ml 07/10/25 08:27
Albumin 2.7 g/dl (3.5-5.0) L 07/11/25 05:34
Physical Exam
-
Vital Signs:
Vital Signs
Temp Pulse Resp BP Pulse Ox
97.9 F 76 16 123/53 94
07/14/25 07:00 07/14/25 07:00 07/14/25 07:00 07/14/25 07:00 07/14/25 07:00
Cardiovascular:: Regular rate and rhythm
Respiratory:: Bilateral: Coarse
Lung Excursion:: Normal
Abdomen:: Nontender and Soft
Bowel Sounds:: Normal
Extremity Edema:: +3: Bilateral:
--- NOTE | 2025-07-14 12:57 | W.PN.CARDCBS ---
Today's Communication / Plan
-
Weight is flat despite Lasix 80 mg IV twice daily diuresis and addition of metolazone 2.5 mg X Jul 13
Lasix stopped and no further metolazone as per nephrology with increasing alkalosis. Nephrology starting Diamox.
He has required transient hemodialysis in the past.
If unable to diurese, May need to consider inotropic therapy
Agree with right heart catheterization Jul 16 to evaluate volume status with worsening creatinine despite diuretic therapy.
Compression stockings recommended
Continue midodrine to help with hypotension. Hypotension has limited GDMT. Continue Toprol as BP allows
Renal insufficiency precludes addition of BRITTANY/ARB/ARNI/Aldactone.
Permanent atrial fibrillation rate controlled with frequent PVCs, continue Eliquis for stroke prophylaxis
Continue medical therapy of non-ND troponin
Impression / Plan
-
.
Primary Developer Advocate: Dr. Sutton
Primary Assembler Product: Dr. Yates
Impression:
Presentation with LE edema, SOB
Acute on chronic HFrEF
B/L pleural effusions/status post right thoracentesis
JAY on CKD, suspected cardiorenal syndrome
Elevated trop, suspected nonischemic myocardial injury
Hypomagnesemia
s/p R thora 06/20/25
Chronic respiratory insufficiency, on 2 L nasal cannula continuous
Left frontoparietal stroke 05/2025
Admission for acute HFrEF, JAY leading to new HD and TAVR 04/18/2025 until 05/16/2025
CKD, required temporary HD 04/2025 admission, with subsequent improvement in creatinine and therefore HD stopped
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
CAD
s/p CABG with NAVAS to LAD, free radial to ramus, SVG to OM and SVG to PDA 2001
s/p cardiac cath with patent NAVAS to LAD, widely patent free radial to ramus, 100% occluded SVG to OM and 50 to 55% mid stenosis of the SVG to the PDA to be stable 03/15/2025
ICM EF 25-30%, post TAVR
carotid disease s/p left CEA in 2012
s/p Medtronic single chamber ICD 2017
Permanent Afib
Chronic Eliquis OAC
Orthostatic hypotension on chronic midodrine
DM 2
Gout
Former smoker, quit 03/2025
ECHO 12/03/22: EF 50%, mild LVH, stage III diastolic dysfunction, mild MR, severe with peak/mean gradients 54/28 mmHg, KAELYN 0.8 cm�, trace AR, mild TR, PAP 64 mmHg, mild dilation of aorta measuring 4.0 cm
Echo 10/09/2024: EF 35 to 40%, moderate eccentric MR, severe peak/mean 60/34 mmHg and KAELYN 0.8 cm sq, mild aortic insufficiency, moderate TR with PAP 64 mmHg
Echo 03/12/2025: EF 31%, global hypokinesis, moderate MR, severe peak/mean 41/22 mmHg and KAELYN 0.7 cm sq, mild aortic regurgitation, moderate to severe TR with PAP 72 mmHg
Echo 05/11/2025: s/p TAVR with #29 Donovan BLAISE 3 aortic valve prosthesis with peak/mean 6/3 mmHg, mild MR, moderate to severe TR with PAP 60 mmHg
Echo 05/21/2025: EF 25-30%, global hypokinesis basal inferior akinesis, TAVR with mean aortic valve gradient of 6, mildly dilated left atrium, mild mitral regurgitation, mild TR, unchanged from prior
Echo July 11, 2025: Limited study. Normal ventricular chamber size with severely reduced left ventricular systolic function ejection fraction 25 to 30% with global hypokinesis and basilar inferior akinesis. ICD wire seen in the right heart.
Well-seated TAVR # 29 mm with mean gradient 6 mmHg. No aortic regurgitation.. Mild to moderate tricuspid regurgitation pulmonary artery pressure 61 mmHg. Compared to a previous full study echo from May 2025, tricuspid regurgitation is slightly
less, findings are otherwise similar.
Plan:
Weight is flat despite Lasix 80 mg IV twice daily diuresis and addition of metolazone 2.5 mg X 1 Jul 13
Lasix stopped and no further metolazone as per nephrology with increasing alkalosis. Nephrology starting Diamox.
He has required transient hemodialysis in the past.
If unable to diurese, May need to consider inotropic therapy
Agree with right heart catheterization Jul 16 to evaluate volume status with worsening creatinine despite diuretic therapy.
Compression stockings recommended
Continue midodrine to help with hypotension. Hypotension has limited GDMT. Continue Toprol as BP allows
Renal insufficiency precludes addition of BRITTANY/ARB/ARNI/Aldactone.
Permanent atrial fibrillation rate controlled with frequent PVCs, continue Eliquis for stroke prophylaxis
Continue medical therapy of non-ND troponin
Discussed with primary service.
Progress Note - Developer Advocate
Subjective
Date of Service: July 14, 2025
Patient seen and examined. No chest pain.
Objective
Labs:
07/14/25 07:55
07/14/25 07:55
Labs
Hgb 9.3 g/dL (13.0-18.0) L 07/14/25 07:55
Hct 29.1 % (39.0-52.0) L 07/14/25 07:55
Plt Count 191 10^3/uL (130-400) 07/14/25 07:55
Sodium 136 mmol/L (135-145) 07/14/25 07:55
Potassium 4.2 mmol/L (3.5-5.1) 07/14/25 07:55
BUN 61 mg/dl (9-20) H 07/14/25 07:55
Creatinine 2.2 mg/dL (0.7-1.3) H 07/14/25 07:55
Glucose 135 mg/dl (70-99) H 07/14/25 07:55
Vital Signs and I&O:
Vital Signs
Temp Pulse Resp BP Pulse Ox
97.5 F 77 16 115/56 95
07/14/25 11:00 07/14/25 11:00 07/14/25 11:00 07/14/25 11:00 07/14/25 11:00
Vital Signs
Temp Pulse Resp BP Pulse Ox
97.5 F 77 16 115/56 95
07/14/25 11:00 07/14/25 11:00 07/14/25 11:00 07/14/25 11:00 07/14/25 11:00
Intake & Output
07/12/25 07/13/25 07/14/25 07/15/25
06:59 06:59 06:59 06:59
Intake Total 1060 / 1060 1160 / 1160 1360 / 1360
Output Total 1075 / 1075 805 / 805 950 / 950
Balance -15 / -15 355 / 355 410 / 410
Physical Exam
Physical Exam
General: No acute distress, AAOX3, chronically ill.
Neck: Negative JVD
Heart: Irregular irregular, Negative S3 positive S1/S2, Negative S4, No murmur
Lungs: CTA b/l, negative wheezes/rales/rhonchi
Abd: Positive BS, NT/ND, neg rebound/rigidity/guarding
Ext: Negative cyanosis/clubbing/edema
Neuro: nonfocal
[2025-07-14 14:01] LABS: APTT 46.5 Sec (23.4-35.0)
[2025-07-14 15:08] VITALS: BP 130/63
[2025-07-14 16:55] LABS: Glucose - Point of Care 222 mg/dl (70-99)
[2025-07-14] MEDS: DIAMOX 2.5 MG IV (17:53)
[2025-07-14] MEDS: HEPARIN 25000 UNITS/250 ML IV (18:25)
[2025-07-14 19:00] VITALS: BP 127/52
[2025-07-14] MEDS: DESYREL 25 MG PO (21:07)
[2025-07-14] MEDS: LIPITOR 80 MG PO (21:07)
[2025-07-14] MEDS: LANTUS 0.09 UNITS SC (21:09)
[2025-07-14 21:17] LABS: Glucose - Point of Care 249 mg/dl (70-99)
[2025-07-14 23:16] VITALS: BP 110/47
[2025-07-15] MEDS: DIAMOX 2.5 MG IV ×3 (00:45→17:53)
[2025-07-15 01:29] LABS: APTT 105.8 Sec (23.4-35.0)
[2025-07-15 06:00] VITALS: BMI 27.5
[2025-07-15 07:48] LABS: APTT 158.5 Sec (23.4-35.0)
[2025-07-15 07:59] VITALS: BP 127/59
[2025-07-15 07:59] LABS: Hematocrit 33.4 % (39.0-52.0); Hemoglobin 9.9 g/dL (13.0-18.0); Mean Corp Hgb Conc. 29.6 g/dL (33.0-37.0); Mean Corpuscular Volume 104.0 fL (80.0-94.0); Platelet Count 208 10^3/uL (130-400); Red Cell Dist. Width 14.6 % (11.5-14.5)
[2025-07-15] MEDS: NOVOLOG FLEXPEN-LOW RESISTANCE SC (07:59)
[2025-07-15 08:00] LABS: Glucose - Point of Care 148 mg/dl (70-99)
[2025-07-15] MEDS: TRUSOPT 2% OPHTHALMIC SOLUTION 1 DROP BOTH EYES ×2 (08:16→20:46)
[2025-07-15] MEDS: TOPROL XL 12.5 MG PO (08:16)
[2025-07-15] MEDS: KCL ELIXIR 40 MEQ PO (08:16)
[2025-07-15] MEDS: PROTONIX 40 MG PO ×2 (08:16→20:46)
[2025-07-15] MEDS: ZYLOPRIM 100 MG PO (08:16)
[2025-07-15] MEDS: VITAMIN C 500 MG PO (08:16)
[2025-07-15] MEDS: MAGNESIUM OXIDE 400 MG PO (08:17)
[2025-07-15] MEDS: FLUSH (NSS) 2 FLUSH IV ×2 (08:18→17:55)
[2025-07-15 09:52] LABS: Blood Urea Nitrogen 57 mg/dl (9-20); Calcium 8.8 mg/dl (8.4-10.2); Carbon Dioxide 35 mmol/L (22-30); Chloride 98 mmol/L (98-107); Estimated Creatinine Clearance 24 ml/min; Glucose 78 mg/dl (70-99); Magnesium 1.9 mg/dl (1.6-2.3); Potassium 3.9 mmol/L (3.5-5.1); Sodium 139 mmol/L (135-145); eGFR 29.72
--- NOTE | 2025-07-15 10:05 | W.PN.HOSP.TC ---
Today's Communication/Plan
-
diuretics on hold; Diamox for alkalosis
NPO p MN for RHC Wednesday; IV heparin in interim while Eliquis held
d/w Cards/Renal
Assessment / Plan
Assessment / Plan
Assessment:
Acute on Chronic HFrEF
- Echo 05/21/25: EF of 25 to 30% status post TAVR
- elevated BNP
- s/p IV Lasix + Metolazone course
- d/w Cardiology/Nephrology on 07/14 and diuretics were held due to alkalosis; Diamox added
- RHC being arranged for 07/16 to determine if Dobutamine needed
- GDMT: BB. CKD precludes BRITTANY/ARB/ARNI
- salt/fluid restrictions
- repeat limited Echo 07/12: stable from prior but EF remains low 25-30%
nonischemic myocardial injury in setting of acute CHF and CKD
- trops relatively flat around .07; stop trending
Acute on chronic hypoxic respiratory failure
- baseline 2L, currently 2L - wean O2 as able
JAY, cardiorenal in setting of CKD stage 3b
- nephrology following
- monitor BMP
- patient/family do confirm that they would accept HD again if indicated
diuretic induced metabolic alkalosis
- continue 3 days Diamox
Hypokalemia
- continue daily repletion
Bilateral pleural effusions
- R>L on CXR
- s/p R thoracentesis 07/11 with 1.4 L removed
- repeat CXR Wednesday
Hypomagnesemia
- s/p aggressive IV and oral repletion
- daily level
Paroxysmal A-fib
- continue BB
- holding Eliquis in favor of IV Heparin (requires intensive monitoring of PTTs) for planned RHC on Wednesday
Type 2 diabetes mellitus
- continue home dose Lantus
- continue low-dose SSI
Orthostatic hypotension
- continue home midodrine
Hyperlipidemia
- continue atorvastatin
Anemia, Chronic, macrocytic
- monitor CBCs
- baseline between 8-9s
Gout
- continue allopurinol
DVT ppx: Eliquis
Code: Full
Received TT from [facility]/ for this patient; stating she had started goals of care discussions. Reviewed with patient and Neli; plans at this time are full measures. All consultants notified.
Anticipated Discharge: > 48 hours
Subjective/Interval History
-
Date of Service: July 15, 2025
weights unchanged despite aggressive diuretic regimen therefore yesterday were stopped and Diamox added for alkalosis; RHC being arranged for Wednesday
patient at present feels ok, just tired. denies CP or SOB
Objective Data
-
Labs:
Laboratory Results
07/15/25 07/15/25 07/15/25
01:11 07:05 15:00
WBC 6.2
Hgb 9.9 L
Hct 33.4 L
Plt Count 208
APTT 105.8 H 158.5 H* Pending
Sodium 139
Potassium 3.9
Chloride 98
Carbon Dioxide 35 H
BUN 57 H
Creatinine 2.2 H
Glucose 78
Calcium 8.8
Vital Signs:
Vital Signs
Temp Pulse Resp BP Pulse Ox
97.9 F 77 18 127/59 96
07/15/25 07:59 07/15/25 07:59 07/15/25 07:59 07/15/25 07:59 07/15/25 07:59
I&O
07/14/25 07/15/25 07/16/25
06:59 06:59 06:59
Intake Total 1360 / 1360 1200 / 1200
Output Total 950 / 950 1200 / 1200
Balance 410 / 410 0 / 0
Physical Exam
-
General: No Apparent Distress
HEENT: Normocephalic and Atraumatic
Respiratory: Negative Wheezes
Cardiac: Irregular Rhythm
GI: Soft
Neuro: AO x 3
Psych: Calm
Data Reviewed
-
Total Time Spent with Patient (in minutes): 51
Labs: Labs Reviewed by me
--- NOTE | 2025-07-15 11:29 | W.PN.CARDCBS ---
Today's Communication / Plan
-
Lasix remains held and no further metolazone as per nephrology with increasing alkalosis. Nephrology starting Diamox.
Weight was flat despite Lasix 80 mg IV twice daily diuresis and addition of metolazone 2.5 mg X 1 Jul 13
He has required transient hemodialysis in the past.
Agree with right heart catheterization Jul 16 to evaluate volume status with worsening creatinine despite diuretic therapy.
Pending results of right heart cath, if he is volume overloaded with significant elevation of wedge pressure, would need to consider inotropic therapy for help with diuresis
Continue midodrine to help with hypotension. Hypotension has limited GDMT. Continue Toprol as BP allows
Renal insufficiency precludes addition of BRITTANY/ARB/ARNI/Aldactone.
Impression / Plan
-
.
Primary Automatic Hemmer: Dr. Sutton
Primary Perfume Maker: Dr. Yates
Impression:
Presentation with LE edema, SOB
Acute on chronic HFrEF
B/L pleural effusions/status post right thoracentesis
JAY on CKD, suspected cardiorenal syndrome
Elevated trop, suspected nonischemic myocardial injury
Hypomagnesemia
s/p R thora 06/20/25
Chronic respiratory insufficiency, on 2 L nasal cannula continuous
Left frontoparietal stroke 05/2025
Admission for acute HFrEF, JAY leading to new HD and TAVR 04/18/2025 until 05/16/2025
CKD, required temporary HD 04/2025 admission, with subsequent improvement in creatinine and therefore HD stopped
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
CAD
s/p CABG with NAVAS to LAD, free radial to ramus, SVG to OM and SVG to PDA 2001
s/p cardiac cath with patent NAVAS to LAD, widely patent free radial to ramus, 100% occluded SVG to OM and 50 to 55% mid stenosis of the SVG to the PDA to be stable 03/15/2025
ICM EF 25-30%, post TAVR
carotid disease s/p left CEA in 2012
s/p Medtronic single chamber ICD 2017
Permanent Afib
Chronic Eliquis OAC
Orthostatic hypotension on chronic midodrine
DM 2
Gout
Former smoker, quit 03/2025
ECHO 12/03/22: EF 50%, mild LVH, stage III diastolic dysfunction, mild MR, severe with peak/mean gradients 54/28 mmHg, KAELYN 0.8 cm�, trace AR, mild TR, PAP 64 mmHg, mild dilation of aorta measuring 4.0 cm
Echo 10/09/2024: EF 35 to 40%, moderate eccentric MR, severe peak/mean 60/34 mmHg and KAELYN 0.8 cm sq, mild aortic insufficiency, moderate TR with PAP 64 mmHg
Echo 03/12/2025: EF 31%, global hypokinesis, moderate MR, severe peak/mean 41/22 mmHg and KAELYN 0.7 cm sq, mild aortic regurgitation, moderate to severe TR with PAP 72 mmHg
Echo 05/11/2025: s/p TAVR with #29 Donovan BLAISE 3 aortic valve prosthesis with peak/mean 6/3 mmHg, mild MR, moderate to severe TR with PAP 60 mmHg
Echo 05/21/2025: EF 25-30%, global hypokinesis basal inferior akinesis, TAVR with mean aortic valve gradient of 6, mildly dilated left atrium, mild mitral regurgitation, mild TR, unchanged from prior
Echo July 11, 2025: Limited study. Normal ventricular chamber size with severely reduced left ventricular systolic function ejection fraction 25 to 30% with global hypokinesis and basilar inferior akinesis. ICD wire seen in the right heart.
Well-seated TAVR # 29 mm with mean gradient 6 mmHg. No aortic regurgitation.. Mild to moderate tricuspid regurgitation pulmonary artery pressure 61 mmHg. Compared to a previous full study echo from May 2025, tricuspid regurgitation is slightly
less, findings are otherwise similar.
Plan:
Lasix remains held and no further metolazone as per nephrology with increasing alkalosis. Nephrology starting Diamox.
Weight was flat despite Lasix 80 mg IV twice daily diuresis and addition of metolazone 2.5 mg X 1 Jul 13
He has required transient hemodialysis in the past.
Agree with right heart catheterization Jul 16 to evaluate volume status with worsening creatinine despite diuretic therapy.
Pending results of right heart cath, if he is volume overloaded with significant elevation of wedge pressure, would need to consider inotropic therapy for help with diuresis
Compression stockings recommended
Continue midodrine to help with hypotension. Hypotension has limited GDMT. Continue Toprol as BP allows
Renal insufficiency precludes addition of BRITTANY/ARB/ARNI/Aldactone.
Permanent atrial fibrillation rate controlled with frequent PVCs, continue Eliquis for stroke prophylaxis
Continue medical therapy of non-[place] troponin
Discussed with primary service and daughter and family at bedside
Progress Note - Automatic Hemmer
Subjective
Date of Service: July 15, 2025
Pt seen and examined. No complaints. No chest pain or shortness of breath.
Objective
Labs:
07/15/25 07:05
07/15/25 07:05
Labs
Hgb 9.9 g/dL (13.0-18.0) L 07/15/25 07:05
Hct 33.4 % (39.0-52.0) L 07/15/25 07:05
Plt Count 208 10^3/uL (130-400) 07/15/25 07:05
APTT 158.5 Sec (23.4-35.0) H* 07/15/25 07:05
Sodium 139 mmol/L (135-145) 07/15/25 07:05
Potassium 3.9 mmol/L (3.5-5.1) 07/15/25 07:05
BUN 57 mg/dl (9-20) H 07/15/25 07:05
Creatinine 2.2 mg/dL (0.7-1.3) H 07/15/25 07:05
Glucose 78 mg/dl (70-99) 11/09/25 07:05
Vital Signs and I&O:
Vital Signs
Temp Pulse Resp BP Pulse Ox
97.9 F 77 18 127/59 96
07/15/25 07:59 07/15/25 07:59 07/15/25 07:59 07/15/25 07:59 07/15/25 07:59
Vital Signs
Temp Pulse Resp BP Pulse Ox
97.9 F 77 18 127/59 96
07/15/25 07:59 07/15/25 07:59 07/15/25 07:59 07/15/25 07:59 07/15/25 07:59
Intake & Output
07/13/25 07/14/25 07/15/25 07/16/25
06:59 06:59 06:59 06:59
Intake Total 1160 / 1160 1360 / 1360 1200 / 1200
Output Total 805 / 805 950 / 950 1200 / 1200
Balance 355 / 355 410 / 410 0 / 0
Physical Exam
Physical Exam
General: No acute distress, AAOX3, chronically ill.
Neck: Negative JVD
Heart: Irregular irregular, Negative S3 positive S1/S2, Negative S4, No murmur
Lungs: CTA b/l, negative wheezes/rales/rhonchi
Abd: Positive BS, NT/ND, neg rebound/rigidity/guarding
Ext: Negative cyanosis/clubbing/edema
Neuro: nonfocal
[2025-07-15 12:13] LABS: Glucose - Point of Care 191 mg/dl (70-99)
[2025-07-15 12:28] VITALS: BP 133/68
[2025-07-15] MEDS: NOVOLOG FLEXPEN-LOW RESISTANCE 1 UNITS SC (12:57)
[2025-07-15] MEDS: FEOSOL 325 MG PO (12:59)
[2025-07-15] MEDS: VITAMIN B-12 1000 MCG PO (13:02)
--- NOTE | 2025-07-15 13:40 | W.PN.NEPH.PH ---
Today's Communication / Plan
-
diamox/rhc mond
Assessment/Plan
-
IMP:
Acute exacerbation of HFrEF
Echo�05/21/2025, patient has an EF of 25 to 30% status post TAVR
bilateral pleural effusions
JAY on CKD stage IIIb- cr 1.5-2, Dr Yates
Hypomagnesemia
Paroxysmal A-fib
Elevated troponins
Type 2 diabetes mellitus
Orthostatic hypotension
Hyperlipidemia
Anemia
Gout
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
CAD/CABG x 4 (2001)
Medtronic single-chamber ICD, 2017
Carotid disease -s/p left CEA 2012.
h/o GI bleed 03/2025 , known h/o AVMS
h/o CVA
briefly on HD 05/2025 after TAVR
Plan:
Status post thoracentesis 07/11 [address]
replete Mag/K prn
d/w patient. He would still accept HD if needed again in the future but no indication at this time
Bicarbonate up to 36 with creatinine stable at 2.2 with minimal urine output on 80 mg IV Lasix twice a day.
Ejection fraction on this admission confirms EF 25 to 30%
Not making any progress with the diuresis in the increasing alkalosis. Either way we will need to discontinue the loop diuretic at this time.
cont Diamox for a few days.
Remains on 4 L of oxygen with his baseline around 2 L
At this time I do believe now right heart cath would be helpful = cards agrees
-
-
Date of Service: July 15, 2025
CC / HPI / ROS
-
Chief Complaint:
CKD
History of Present Illness:
CKD/Cr stable 2.3
s/p right thoracentesis 07/11 for 1.4L
BP stable on midodrine
on IV lasix for decompensated HF
K/Mg beetter
Review of Systems:
No chest pain
supplemental O2 4 L continue
Labs
-
Labs:
WBC 6.2 10^3/uL (4.8-10.8) 07/15/25 07:05
RBC 3.21 10^6/uL (4.70-6.10) L 07/15/25 07:05
Hgb 9.9 g/dL (13.0-18.0) L 07/15/25 07:05
Hct 33.4 % (39.0-52.0) L 07/15/25 07:05
Plt Count 208 10^3/uL (130-400) 07/15/25 07:05
Sodium 139 mmol/L (135-145) 07/15/25 07:05
Potassium 3.9 mmol/L (3.5-5.1) 07/15/25 07:05
Chloride 98 mmol/L (98-107) 07/15/25 07:05
Carbon Dioxide 35 mmol/L (22-30) H 07/15/25 07:05
BUN 57 mg/dl (9-20) H 07/15/25 07:05
Creatinine 2.2 mg/dL (0.7-1.3) H 07/15/25 07:05
eGFR 29.72 07/15/25 07:05
Glucose 78 mg/dl (70-99) 07/15/25 07:05
Calcium 8.8 mg/dl (8.4-10.2) 07/15/25 07:05
Sdk-G-Rfxhogpqvdx Pept 23907 pg/ml 07/10/25 08:27
Albumin 2.7 g/dl (3.5-5.0) L 07/11/25 05:34
Physical Exam
-
Vital Signs:
Vital Signs
Temp Pulse Resp BP Pulse Ox
98.1 F 77 18 133/68 97
07/15/25 12:28 07/15/25 12:28 07/15/25 12:28 07/15/25 12:28 07/15/25 12:28
Cardiovascular:: Regular rate and rhythm
Respiratory:: Bilateral: Coarse and Bilateral: Rales
Lung Excursion:: Normal
Abdomen:: Nontender and Soft
Bowel Sounds:: Normal
Extremity Edema:: +3: Bilateral:
[2025-07-15 15:50] VITALS: BP 147/81
[2025-07-15 16:52] LABS: APTT 59.5 Sec (23.4-35.0)
[2025-07-15 17:10] LABS: Glucose - Point of Care 217 mg/dl (70-99)
[2025-07-15] MEDS: NOVOLOG FLEXPEN-LOW RESISTANCE 2 UNITS SC (17:54)
[2025-07-15 19:33] VITALS: BP 127/52
[2025-07-15] MEDS: LIPITOR 80 MG PO (20:46)
[2025-07-15] MEDS: DESYREL 25 MG PO (20:46)
[2025-07-15 22:07] LABS: Glucose - Point of Care 210 mg/dl (70-99)
[2025-07-15] MEDS: LANTUS 0.09 UNITS SC (23:00)
[2025-07-15 23:16] VITALS: BP 130/60
[2025-07-16] VITALS (10 sets, daily range): BP systolic 112–139; BP diastolic 48–75; BMI 27.2
[2025-07-16] MEDS: DIAMOX 2.5 MG IV ×2 (00:40→08:42)
[2025-07-16] MEDS: HEPARIN 25000 UNITS/250 ML IV (01:09)
[2025-07-16 01:23] LABS: APTT 94.5 Sec (23.4-35.0)
[2025-07-16 07:35] LABS: APTT 123.0 Sec (23.4-35.0)
[2025-07-16 07:39] LABS: Hematocrit 33.5 % (39.0-52.0); Hemoglobin 10.0 g/dL (13.0-18.0); Mean Corp Hgb Conc. 29.9 g/dL (33.0-37.0); Mean Corpuscular Volume 106.0 fL (80.0-94.0); Platelet Count 195 10^3/uL (130-400); Red Cell Dist. Width 14.5 % (11.5-14.5)
[2025-07-16 07:53] LABS: Glucose - Point of Care 155 mg/dl (70-99)
[2025-07-16 08:08] LABS: Blood Urea Nitrogen 54 mg/dl (9-20); Calcium 8.9 mg/dl (8.4-10.2); Carbon Dioxide 31 mmol/L (22-30); Chloride 100 mmol/L (98-107); Estimated Creatinine Clearance 25 ml/min; Glucose 137 mg/dl (70-99); Magnesium 2.0 mg/dl (1.6-2.3); Potassium 3.9 mmol/L (3.5-5.1); Sodium 138 mmol/L (135-145); eGFR 31.43
[2025-07-16] MEDS: KCL ELIXIR 40 MEQ PO (08:40)
[2025-07-16] MEDS: TRUSOPT 2% OPHTHALMIC SOLUTION 1 DROP BOTH EYES ×2 (08:42→20:45)
[2025-07-16] MEDS: VITAMIN C 500 MG PO (08:42)
[2025-07-16] MEDS: ZYLOPRIM 100 MG PO (08:42)
[2025-07-16] MEDS: PROTONIX 40 MG PO ×2 (08:42→20:43)
[2025-07-16] MEDS: MAGNESIUM OXIDE 400 MG PO (08:42)
[2025-07-16] MEDS: TOPROL XL 12.5 MG PO (08:42)
[2025-07-16] MEDS: NOVOLOG FLEXPEN-LOW RESISTANCE 1 UNITS SC (08:43)
--- NOTE | 2025-07-16 09:58 | W.PN.HOSP.TC ---
Today's Communication/Plan
-
f/w cardiology and nephrology recommendations
Assessment / Plan
Assessment / Plan
Physical Exam
-
General: No Apparent Distress, chronically ill looking
HEENT: Normocephalic and Atraumatic
Respiratory: Negative Wheezes
Cardiac: Irregular Rhythm
GI: Soft
MSK: No cyanosis or peripheral edema
Neuro: AO to self and surroundings, followed simple commands
Psych: Calm
Assessment:
Acute on Chronic HFrEF
- Echo 05/21/25: EF of 25 to 30% status post TAVR
- elevated BNP
- s/p IV Lasix + Metolazone course
- d/w Cardiology/Nephrology on 07/14 and diuretics were held due to alkalosis; Diamox added
- RHC being arranged for 07/16 to determine if Dobutamine needed
- GDMT: BB. CKD precludes BRITTANY/ARB/ARNI
- salt/fluid restrictions
- repeat limited Echo 07/12: stable from prior but EF remains low 25-30%
nonischemic myocardial injury in setting of acute CHF and CKD
- trops relatively flat around .07; stop trending
Acute on chronic hypoxic respiratory failure
- baseline 2L, currently 2L - wean O2 as able
R pleural effusion s/p thoracentesis 07/11/25
JAY, cardiorenal in setting of CKD stage 3b
- nephrology following
- monitor BMP
- patient/family do confirm that they would accept HD again if indicated
diuretic induced metabolic alkalosis
- continue 3 days Diamox
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
Hx of acute Left frontoparietal 05/2025.
Hypokalemia
- continue daily repletion
Bilateral pleural effusions
- R>L on CXR
- s/p R thoracentesis 07/11 with 1.4 L removed
- repeat CXR Wednesday
Hypomagnesemia
Hyponatremia, resolved
Paroxysmal A-fib
- continue BB
- holding Eliquis in favor of IV Heparin (requires intensive monitoring of PTTs) for planned RHC on Wednesday
Type 2 diabetes mellitus
- continue home dose Lantus
- continue low-dose SSI
Orthostatic hypotension
- continue home midodrine
Hyperlipidemia
- continue atorvastatin
Anemia, Chronic, macrocytic
- monitor CBCs
- baseline between 8-9s
Gout
- continue allopurinol
DVT ppx: Eliquis
Code: Full
Total time spent to see the patient, examine the patient, review data and lab results, discuss treatment plan with patient, nursing staff around 55 minutes
Anticipated Discharge: > 48 hours
Subjective/Interval History
-
Date of Service: July 16, 2025
No chest pain
No sob
No fevers
Sitting in chair with no distress or pain
Objective Data
-
Labs:
Laboratory Results
07/16/25 07/16/25 07/16/25
00:54 07:15 13:00
WBC 5.3
Hgb 10.0 L
Hct 33.5 L
Plt Count 195
APTT 94.5 H 123.0 H Pending
Sodium 138
Potassium 3.9
Chloride 100
Carbon Dioxide 31 H
BUN 54 H
Creatinine 2.1 H
Glucose 137 H
Calcium 8.9
Vital Signs:
Vital Signs
Temp Pulse Resp BP Pulse Ox
97.9 F 78 16 121/61 96
07/16/25 07:00 07/16/25 07:00 07/16/25 07:00 07/16/25 07:00 07/16/25 07:00
I&O
11/05/3107/16/25 07/17/25
06:59 06:59 06:59
Intake Total 1200 / 1200 960 / 960
Output Total 1200 / 1200 1500 / 1500
Balance 0 / 0 -540 / -540
--- NOTE | 2025-07-16 10:42 | ITS.CL.CATH ---
Addendum entered and electronically signed by Jyoti Butts MD 07/16/25 12:44:
PA saturation: 55.9% on 5L O2 via NC
AO saturation: 94.0% on 5L O2 via NC
RA saturation: 51.5% on 5L O2 via NC
Jyoti Butts MD, [facility], [facility]
Original Note:
Airline Attendant - Catheterization
Cardiac Catheterization
Procedure Report:
RIGHT HEART CATHETERIZATION
Date of Procedure: July 16, 2025
Referring: Fletcher Flannery
INDICATION: Assess invasive hemodynamics
Hemodynamics (mmHg):
RA (m) : 28
RV (s/d,m) : 82/13, 23
PA (s/d, m) : 76/37, 52
PCWP (m) : 38
PA saturation: 55.9% on room air
AO saturation: 94.0% on room air
RA saturation: 51.5% on room air
Cardiac Output : 5.4 L/min
Cardiac Index : 2.98 L/min/m-2
Systemic vascular resistance: 1437 dsc^(-5)
Pulmonary vascular resistance: 4.26 huang unit
RADIATION SUMMARY: Fluoro Time (min): 4.5, Dose (mGy): 71.76, DAP (Gy.cm2) : 11.69
CONCLUSION:
1. Severely elevated right and left-sided filling pressures with normal cardiac output and mildly elevated systemic vascular resistance with severe pulmonary hypertension
Copy to: Nazario Sutton, and Fletcher Flannery
Jyoti Butts MD, [facility], [facility]
--- NOTE | 2025-07-16 12:35 | CM ---
chart reviewed: Anticipated Discharge: > 48 hours; patient transferred to IVU
--- NOTE | 2025-07-16 12:44 | W.PN.NEPH.PH ---
Today's Communication / Plan
-
bumex gtt
follow labs , hold diamox
Assessment/Plan
-
IMP:
Acute exacerbation of HFrEF
Echo�05/21/2025, patient has an EF of 25 to 30% status post TAVR
bilateral pleural effusions
JAY on CKD stage IIIb- cr 1.5-2, Dr Yates
Hypomagnesemia
Paroxysmal A-fib
Elevated troponins
Type 2 diabetes mellitus
Orthostatic hypotension
Hyperlipidemia
Anemia
Gout
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
CAD/CABG x 4 (2001)
Medtronic single-chamber ICD, 2017
Carotid disease -s/p left CEA 2012.
h/o GI bleed 03/2025 , known h/o AVMS
h/o CVA
briefly on HD 05/2025 after TAVR
Plan:
Status post thoracentesis 07/11 1400
stable renal function cr 2.1
noted RHC findings PCWP of 38
will start bumex gtt and monitor response
suspect that he may need dialysis
pt is drowsy post procedure hence could not have conversation
hold diamox now that bicarb is better at 31
replete Mag/K prn
earlier d/w pt during this admit that he would still accept HD if needed again
d/w cards
-
-
Date of Service: July 16, 2025
CC / HPI / ROS
-
Chief Complaint:
CKD
History of Present Illness:
CKD/Cr stable 2.1
s/p right thoracentesis 07/11 for 1.4L
BP stable on midodrine
Review of Systems:
sleepy post procedure
no sob at rest , no fever
supplemental O2 4 L continue
no change in wts
Labs
-
Labs:
WBC 5.3 10^3/uL (4.8-10.8) 07/16/25 07:15
RBC 3.16 10^6/uL (4.70-6.10) L 07/16/25 07:15
Hgb 10.0 g/dL (13.0-18.0) L 07/16/25 07:15
Hct 33.5 % (39.0-52.0) L 07/16/25 07:15
Plt Count 195 10^3/uL (130-400) 07/16/25 07:15
Sodium 138 mmol/L (135-145) 07/16/25 07:15
Potassium 3.9 mmol/L (3.5-5.1) 07/16/25 07:15
Chloride 100 mmol/L (98-107) 07/16/25 07:15
Carbon Dioxide 31 mmol/L (22-30) H 07/16/25 07:15
BUN 54 mg/dl (9-20) H 07/16/25 07:15
Creatinine 2.1 mg/dL (0.7-1.3) H 07/16/25 07:15
eGFR 31.43 07/16/25 07:15
Glucose 137 mg/dl (70-99) H 07/16/25 07:15
Calcium 8.9 mg/dl (8.4-10.2) 07/16/25 07:15
Rco-J-Gmngoiwfxdw Pept 17325 pg/ml 07/10/25 08:27
Albumin 2.7 g/dl (3.5-5.0) L 07/11/25 05:34
Physical Exam
-
Vital Signs:
Vital Signs
Temp Pulse Resp BP Pulse Ox
97.4 F 78 24 121/61 94
07/16/25 12:01 07/16/25 07:00 07/16/25 12:01 07/16/25 07:00 07/16/25 12:01
Cardiovascular:: Regular rate and rhythm
Respiratory:: Bilateral: CTA (decreased anteriorly)
Lung Excursion:: Normal
Abdomen:: Nontender and Soft
Bowel Sounds:: Normal
Extremity Edema:: +3: Bilateral:
Olea Catheter: No
[2025-07-16] MEDS: FEOSOL PO (15:11)
[2025-07-16] MEDS: VITAMIN B-12 PO (15:12)
--- NOTE | 2025-07-16 16:18 | PTOTSP ---
ST RE-ASSESSMENT/FOLLOW-UP
Pt continues to present with clinical signs of mild oral dysphagia and moderate pharyngeal dysphagia, consistent with the results of pt's VFSS on 07/13/2025.
Recommendations:
- Restart pt's previous diet of SOFT BITE SIZED SOLIDS with MODERATELY THICK LIQUIDS - SMALL SINGLE SIPS ONLY; no straws.
- Meds crushed in puree.
- Aspiration and reflux precautions: HOB fully upright for all PO intake and for 60 minutes after PO intake; full supervision/assistance with PO intake to ensure pt is taking SMALL SINGLE SIPS ONLY; alternate solids/liquids; encourage slow intake
rate; and d/c PO intake if pt's CLAYTON declines.
- FIRMWARE TEST ENGINEER to f/u re: diet tolerance assessment, re-assess candidacy for ARHP, reinforce compensatory strategies, trial swallowing strengthening exercises, and reinforce dysphagia education.
[2025-07-16] MEDS: NOVOLOG FLEXPEN-LOW RESISTANCE SC ×2 (16:31→17:38)
[2025-07-16] MEDS: BUMEX 100 IV (16:34)
[2025-07-16] MEDS: FLUSH (NSS) 1 FLUSH IV (16:36)
[2025-07-16 16:59] LABS: Glucose - Point of Care 141 mg/dl (70-99)
[2025-07-16 20:13] LABS: Blood Urea Nitrogen 54 mg/dl (9-20); Calcium 8.8 mg/dl (8.4-10.2); Chloride 99 mmol/L (98-107); Estimated Creatinine Clearance 24 ml/min; Glucose 214 mg/dl (70-99); Potassium 4.1 mmol/L (3.5-5.1); Sodium 137 mmol/L (135-145); eGFR 29.72
[2025-07-16 20:21] LABS: Carbon Dioxide 32 mmol/L (22-30)
[2025-07-16] MEDS: LIPITOR 80 MG PO (20:44)
[2025-07-16] MEDS: DESYREL 25 MG PO (20:44)
[2025-07-16 22:49] LABS: Glucose - Point of Care 200 mg/dl (70-99)
[2025-07-16] MEDS: LANTUS 0.09 UNITS SC (23:12)
--- NOTE | 2025-07-16 23:26 | PTCARENOTE ---
Pt getting up freq to sit on side of bed. Harsh productive cough with thick yellow/montaño secretions noted. Few fine rales and exp wheeze noted throughout. o2 at 5 lit n/c continued. 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 Incont of stool and sometimes urine. male incont
pouch replaced along with protective foam on right buttocks. bed alarm remains activated.
[2025-07-17] VITALS (8 sets, daily range): BP systolic 111–132; BP diastolic 44–109; PULSE 74; O2SAT 94; BMI 26.6
--- NOTE | 2025-07-17 01:19 | PTCARENOTE ---
Despite male pure wick in place pt incont of urine and stool needing complete bed change approx Q2Hrs.
--- NOTE | 2025-07-17 03:01 | PTCARENOTE ---
Assisted pt to bsc, passed small soft stool however every time pt wiped nursing came away more and more stool. Pt also incont of urine. male purewick not adhering well to pt. 25 short condom cath placed.
[2025-07-17 03:07] LABS: Hematocrit 32.0 % (39.0-52.0); Hemoglobin 10.0 g/dL (13.0-18.0); Mean Corp Hgb Conc. 31.3 g/dL (33.0-37.0); Mean Corpuscular Volume 100.9 fL (80.0-94.0); Platelet Count 228 10^3/uL (130-400); Red Cell Dist. Width 14.4 % (11.5-14.5)
[2025-07-17 03:21] LABS: Blood Urea Nitrogen 56 mg/dl (9-20); Calcium 9.2 mg/dl (8.4-10.2); Carbon Dioxide 34 mmol/L (22-30); Chloride 100 mmol/L (98-107); Estimated Creatinine Clearance 25 ml/min; Glucose 170 mg/dl (70-99); Magnesium 1.9 mg/dl (1.6-2.3); Potassium 3.9 mmol/L (3.5-5.1); Sodium 137 mmol/L (135-145); eGFR 31.43
[2025-07-17 07:55] LABS: Glucose - Point of Care 147 mg/dl (70-99)
--- NOTE | 2025-07-17 08:00 | PTCARENOTE ---
Assumed care of pt from prev nsg shift; Pt AAOx1-2, pt confused to time & place, which is pt's baseline. Pt w/no c/o CP or SOB, but appears visibly SOB w/resps of 24 per minute. Pt's VSS w/HR in the 80's & BP 132/56 this AM. 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 Pt assisted OOB to for breakfast w/2P assist w/RW. Pt w/R groin site w/dressing C/D/I w/no signs or symptoms of bleeding or hematoma from yesterday's procedure. Pt w/call moreno within reach & Bed & chair alarms in place for safety.
Plan of care ongoing.
[2025-07-17] MEDS: NOVOLOG FLEXPEN-LOW RESISTANCE SC (08:15)
--- NOTE | 2025-07-17 08:35 | W.PN.CARDCBS ---
Addendum entered and electronically signed by Nazario Sutton MD 07/17/25 08:47:
I saw and examined the patient.
The PROCESS ENVIRONMENTAL TECHNICIAN or PA's note was reviewed and I agree with the note.
Comment: Appears chronically ill
Neck: Supple, no JVD, HJR, carotids +2 B/L, no bruits bilaterally.
Heart: Non displaced PMI, RRR, no murmurs, No S3, S4, no rubs.
Lungs: Scattered rhonchi
Extremities: No clubbing, cyanosis or edema bilaterally.
Neuro: Grossly nonfocal, awake, alert and oriented x3.
Weight is decreased on Bumex drip. Diuretics being managed by nephrology. No indication for inotropes as cardiac index was good on right heart catheterization 07/16. May eventually need restart of hemodialysis.
Original Note:
Today's Communication / Plan
-
continue IV bumex gtt. may require restart HD, defer to nephrology
Cr stable
wean supp O2 as able
GDMT limited by CKD and hypotension requiring midodrine
Impression / Plan
-
.
Primary Electrical Parts Reconditioner: Dr. Sutton
Primary Director [employer]: Dr. Yates
Impression:
Presentation with LE edema, SOB
Acute on chronic HFrEF
B/L pleural effusions/status post right thoracentesis
JAY on CKD, suspected cardiorenal syndrome
Elevated trop, suspected nonischemic myocardial injury
Hypomagnesemia
s/p R thora 06/20/25
Chronic respiratory insufficiency, on 2 L nasal cannula continuous
Left frontoparietal stroke 05/2025
Admission for acute HFrEF, JAY leading to new HD and TAVR 04/18/2025 until 05/16/2025
CKD, required temporary HD 04/2025 admission, with subsequent improvement in creatinine and therefore HD stopped
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
CAD
s/p CABG with NAVAS to LAD, free radial to ramus, SVG to OM and SVG to PDA 2001
s/p cardiac cath with patent NAVAS to LAD, widely patent free radial to ramus, 100% occluded SVG to OM and 50 to 55% mid stenosis of the SVG to the PDA to be stable 03/15/2025
ICM EF 25-30%, post TAVR
carotid disease s/p left CEA in 2012
s/p Medtronic single chamber ICD 2017
Permanent Afib
Chronic Eliquis OAC
Orthostatic hypotension on chronic midodrine
DM 2
Gout
Former smoker, quit 03/2025
ECHO 12/03/22: EF 50%, mild LVH, stage III diastolic dysfunction, mild MR, severe with peak/mean gradients 54/28 mmHg, KAELYN 0.8 cm�, trace AR, mild TR, PAP 64 mmHg, mild dilation of aorta measuring 4.0 cm
Echo 10/09/2024: EF 35 to 40%, moderate eccentric MR, severe peak/mean 60/34 mmHg and KAELYN 0.8 cm sq, mild aortic insufficiency, moderate TR with PAP 64 mmHg
Echo 03/12/2025: EF 31%, global hypokinesis, moderate MR, severe peak/mean 41/22 mmHg and KAELYN 0.7 cm sq, mild aortic regurgitation, moderate to severe TR with PAP 72 mmHg
Echo 05/11/2025: s/p TAVR with #29 Donovan BLAISE 3 aortic valve prosthesis with peak/mean 6/3 mmHg, mild MR, moderate to severe TR with PAP 60 mmHg
Echo 05/21/2025: EF 25-30%, global hypokinesis basal inferior akinesis, TAVR with mean aortic valve gradient of 6, mildly dilated left atrium, mild mitral regurgitation, mild TR, unchanged from prior
Echo July 11, 2025: Limited study. Normal ventricular chamber size with severely reduced left ventricular systolic function ejection fraction 25 to 30% with global hypokinesis and basilar inferior akinesis. ICD wire seen in the right heart.
Well-seated TAVR # 29 mm with mean gradient 6 mmHg. No aortic regurgitation.. Mild to moderate tricuspid regurgitation pulmonary artery pressure 61 mmHg. Compared to a previous full study echo from May 2025, tricuspid regurgitation is slightly
less, findings are otherwise similar.
Plan:
- Patient presented with worsening lower extremity edema and shortness of breath consistent with acute CHF exacerbation
- Underwent right heart cath 07/16/2025 with evidence of continued significant volume overload
- Started on Bumex gtt at 1 per nephrology
- Weight trending down overnight if accurate
- Creatinine stable at 2.1
- Remains on 5 L nasal cannula, wean as able
- Defer to nephrology as to if patient needs to be restarted on dialysis. Previously required transient HD in setting of admission for stroke 05/2025
- Continue compression stockings
- GDMT has been limited due to to hypotension and chronic renal insufficiency. Remains on midodrine.
- He has known permanent atrial fibrillation, which is rate controlled on review of telemetry with frequent ectopy including PVCs, couplets.
- Continue eliquis
- Continue medical therapy of non-[place] troponin
- d/w nursing
Progress Note - Electrical Parts Reconditioner
Subjective
Date of Service: July 17, 2025
Main complaint is dry mouth. Denies shortness of breath
Objective
Labs:
07/17/25 02:53
07/17/25 02:53
Labs
Hgb 10.0 g/dL (13.0-18.0) L 07/17/25 02:53
Hct 32.0 % (39.0-52.0) L 07/17/25 02:53
Plt Count 228 10^3/uL (130-400) 07/17/25 02:53
APTT Cancelled 07/16/25 13:00
Sodium 137 mmol/L (135-145) 07/17/25 02:53
Potassium 3.9 mmol/L (3.5-5.1) 07/17/25 02:53
BUN 56 mg/dl (9-20) H 07/17/25 02:53
Creatinine 2.1 mg/dL (0.7-1.3) H 07/17/25 02:53
Glucose 170 mg/dl (70-99) H 07/17/25 02:53
Vital Signs and I&O:
Vital Signs
Temp Pulse Resp BP Pulse Ox
97.5 F 82 24 132/56 95
07/17/25 07:50 07/17/25 08:00 07/17/25 07:50 07/17/25 07:56 07/17/25 07:50
Vital Signs
Temp Pulse Resp BP Pulse Ox
97.5 F 82 24 132/56 95
07/17/25 07:50 07/17/25 08:00 07/17/25 07:50 07/17/25 07:56 07/17/25 07:50
Intake & Output
07/15/25 07/16/25 07/17/25 07/18/25
07:59 07:59 07:59 07:59
Intake Total 1200 / 1200 960 / 960 168 / 168
Output Total 1200 / 1200 1500 / 1500 1050 / 1050
Balance 0 / 0 -540 / -540 -882 / -882
Physical Exam
Physical Exam
GEN: No distress, awake, alert, oriented x3. Chronically ill-appearing. On supplemental O2. Appears dyspneic with use of abdominal muscles
HEENT: supple, anicteric, mmm, eomi
LUNGS: Decreased BS B/L, no wheezes
CV: Irreg, S1/S2, 1/6 syst LSB
ABD: soft, BS+, NT/ND
EXT: No cyanosis, clubbing. 2+ edema of B/L LE with chronic discoloration noted
NEURO: Gross non-focal
SKIN: Warm, pink, dry. No rash
--- NOTE | 2025-07-17 10:00 | W.PN.HOSP.TC ---
Today's Communication/Plan
-
Frail and poor Physical status
Might need to address goal of care with pt and / will reach out to cardiology
Assessment / Plan
Assessment / Plan
Physical Exam
-
General: No Apparent Distress, chronically ill looking
HEENT: Normocephalic and Atraumatic
Respiratory: Negative Wheezes
Cardiac: Irregular Rhythm
GI: Soft
MSK: No cyanosis or peripheral edema
Neuro: AO to self and surroundings, followed simple commands
Psych: Calm
Assessment:
Acute on Chronic HFrEF
- Echo 05/21/25: EF of 25 to 30% status post TAVR
- elevated BNP
- s/p IV Lasix + Metolazone course
- Started on Bumex gtt
- d/w Cardiology/Nephrology on 07/14 and diuretics were held due to alkalosis; Diamox is held.
- s/p RHC with elevated pressures
- GDMT: BB. CKD precludes BRITTANY/ARB/ARNI
- salt/fluid restrictions
- repeat limited Echo 07/12: stable from prior but EF remains low 25-30%
nonischemic myocardial injury in setting of acute CHF and CKD
- trops relatively flat around .07; stop trending
Acute on chronic hypoxic respiratory failure
- baseline 2L, currently 2L - wean O2 as able
R pleural effusion s/p thoracentesis 07/11/25
JAY, cardiorenal in setting of CKD stage 3b
- nephrology following
- monitor BMP
- patient/family do confirm that they would accept HD again if indicated
diuretic induced metabolic alkalosis
- continue 3 days Diamox
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
Hx of acute Left frontoparietal 05/2025.
Hypokalemia
- continue daily repletion
Bilateral pleural effusions
- R>L on CXR
- s/p R thoracentesis 07/11 with 1.4 L removed
- repeat CXR Wednesday
Hypomagnesemia
Hyponatremia, resolved
Paroxysmal A-fib
- continue BB
- holding Eliquis in favor of IV Heparin (requires intensive monitoring of PTTs) for planned RHC on Wednesday
Type 2 diabetes mellitus
- continue home dose Lantus
- continue low-dose SSI
Orthostatic hypotension
- continue home midodrine
Hyperlipidemia
- continue atorvastatin
Anemia, Chronic, macrocytic
- monitor CBCs
- baseline between 8-9s
Gout
- continue allopurinol
DVT ppx: Eliquis
Code: Full
Total time spent to see the patient, examine the patient, review data and lab results, discuss treatment plan with patient, nursing staff around 55 minutes
Anticipated Discharge: > 48 hours
Subjective/Interval History
-
Date of Service: July 17, 2025
No compalints
Asked for breakfast
Objective Data
-
Labs:
Laboratory Results
07/17/25
02:53
WBC 6.7
Hgb 10.0 L
Hct 32.0 L
Plt Count 228
Sodium 137
Potassium 3.9
Chloride 100
Carbon Dioxide 34 H
BUN 56 H
Creatinine 2.1 H
Glucose 170 H
Calcium 9.2
Vital Signs:
Vital Signs
Temp Pulse Resp BP Pulse Ox
97.5 F 82 24 132/56 95
07/17/25 07:50 07/17/25 08:00 07/17/25 07:50 07/17/25 07:56 07/17/25 07:50
I&O
07/16/25 07/17/25 07/18/25
06:59 06:59 06:59
Intake Total 960 / 960 168 / 168
Output Total 1500 / 1500 1050 / 1050
Balance -540 / -540 -882 / -882
--- NOTE | 2025-07-17 10:48 | CM ---
spoke with pt in room, he is prev indep, lives with hi in a 2 story home with a first floor set up and 2 steps to enter. he uses a rolling walker and has home O2 at 2 Liters (he does not remember the name of the company) we discussed the
possibility of him needing HD, but that has not been determined at this time, cm following.
[2025-07-17] MEDS: PROTONIX 40 MG PO ×2 (10:52→21:20)
[2025-07-17] MEDS: TOPROL XL 12.5 MG PO (10:52)
[2025-07-17] MEDS: ELIQUIS 5 MG PO ×2 (10:52→21:20)
[2025-07-17] MEDS: ZYLOPRIM 100 MG PO (10:52)
[2025-07-17] MEDS: KCL ELIXIR 40 MEQ PO (10:52)
[2025-07-17] MEDS: MAGNESIUM OXIDE 400 MG PO (10:52)
[2025-07-17] MEDS: TRUSOPT 2% OPHTHALMIC SOLUTION 1 DROP BOTH EYES ×2 (10:53→21:21)
[2025-07-17] MEDS: VITAMIN C 500 MG PO (10:53)
[2025-07-17] MEDS: FEOSOL 325 MG PO (11:29)
[2025-07-17] MEDS: VITAMIN B-12 1000 MCG PO (11:29)
--- NOTE | 2025-07-17 12:24 | W.PN.NEPH.PH ---
Today's Communication / Plan
-
cont bumex gtt
Assessment/Plan
-
IMP:
Acute exacerbation of HFrEF
Echo�05/21/2025, patient has an EF of 25 to 30% status post TAVR
bilateral pleural effusions
Status post thoracentesis 07/11 1400
JAY on CKD stage IIIb- cr 1.5-2, Dr Yates
Hypomagnesemia
Paroxysmal A-fib
Elevated troponins
Type 2 diabetes mellitus
Orthostatic hypotension
Hyperlipidemia
Anemia
Gout
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
CAD/CABG x 4 (2001)
Medtronic single-chamber ICD, 2017
Carotid disease -s/p left CEA 2012.
h/o GI bleed 03/2025 , known h/o AVMS
h/o CVA
briefly on HD 05/2025 after TAVR
Plan:
stable renal function cr 2.1
noted RHC findings PCWP of 38 on 07/16
cont bumex gtt and monitor response , wt decreasing
If no appropriate response suspect that he may need dialysis
reviewed with pt and agreed with HD when needed
monitor mild met alkalosis
replete Mag/K prn
bP stable
d/w pt
high risk encounter
-
-
Date of Service: July 17, 2025
CC / HPI / ROS
-
Chief Complaint:
CKD
History of Present Illness:
CKD/Cr stable 2.1
s/p right thoracentesis 07/11 for 1.4L
BP stable on midodrine
on 5lit of O2
Review of Systems:
improving sob per pt
wt is down
no pain
Labs
-
Labs:
WBC 6.7 10^3/uL (4.8-10.8) 07/17/25 02:53
RBC 3.17 10^6/uL (4.70-6.10) L 07/17/25 02:53
Hgb 10.0 g/dL (13.0-18.0) L 07/17/25 02:53
Hct 32.0 % (39.0-52.0) L 07/17/25 02:53
Plt Count 228 10^3/uL (130-400) 07/17/25 02:53
Sodium 137 mmol/L (135-145) 07/17/25 02:53
Potassium 3.9 mmol/L (3.5-5.1) 07/17/25 02:53
Chloride 100 mmol/L (98-107) 07/17/25 02:53
Carbon Dioxide 34 mmol/L (22-30) H 07/17/25 02:53
BUN 56 mg/dl (9-20) H 07/17/25 02:53
Creatinine 2.1 mg/dL (0.7-1.3) H 07/17/25 02:53
eGFR 31.43 07/17/25 02:53
Glucose 170 mg/dl (70-99) H 07/17/25 02:53
Calcium 9.2 mg/dl (8.4-10.2) 07/17/25 02:53
Sei-X-Uclueqeqkfd Pept 60728 pg/ml 07/10/25 08:27
Albumin 2.7 g/dl (3.5-5.0) L 07/11/25 05:34
Physical Exam
-
Vital Signs:
Vital Signs
Temp Pulse Resp BP Pulse Ox
97.9 F 75 16 111/55 94
07/17/25 11:57 07/17/25 11:57 07/17/25 11:57 07/17/25 11:40 07/17/25 11:57
Cardiovascular:: Regular rate and rhythm
Respiratory:: Bilateral: CTA (decreased anteriorly)
Lung Excursion:: Normal
Abdomen:: Nontender and Soft
Bowel Sounds:: Normal
Extremity Edema:: +2: Bilateral:
Olea Catheter: No
[2025-07-17 15:21] LABS: Glucose - Point of Care 253 mg/dl (70-99)
[2025-07-17] MEDS: NOVOLOG FLEXPEN-LOW RESISTANCE 3 UNITS SC (15:25)
[2025-07-17] MEDS: BUMEX 100 IV (17:14)
[2025-07-17 17:39] LABS: Glucose - Point of Care 229 mg/dl (70-99)
[2025-07-17] MEDS: NOVOLOG FLEXPEN-LOW RESISTANCE 2 UNITS SC (17:41)
[2025-07-17] MEDS: DESYREL 25 MG PO (21:19)
[2025-07-17] MEDS: LIPITOR 80 MG PO (21:20)
[2025-07-17 23:00] LABS: Glucose - Point of Care 156 mg/dl (70-99)
[2025-07-17] MEDS: LANTUS 0.09 UNITS SC (23:01)
[2025-07-18] VITALS (23 sets, daily range): BP systolic 76–130; BP diastolic 47–97; PULSE 79; O2SAT 90; BMI 25.5
--- NOTE | 2025-07-18 00:04 | PTCARENOTE ---
Pt rec'd at change of shift resting in bed with bed alarm activated. harsh mostly non productive cough noted . O2 at 6lit n/c. Lungs diminished but no wheezing noted.#[address] and working well. 800 ml of yellow urine noted thus far
this shift. bumex at 1mg infusing via GIO. MANAGER PORT on telemetry.
[2025-07-18 05:10] LABS: Hematocrit 32.6 % (39.0-52.0); Hemoglobin 10.1 g/dL (13.0-18.0); Mean Corp Hgb Conc. 31.0 g/dL (33.0-37.0); Mean Corpuscular Volume 98.2 fL (80.0-94.0); Platelet Count 220 10^3/uL (130-400); Red Cell Dist. Width 14.5 % (11.5-14.5)
[2025-07-18 05:33] LABS: Blood Urea Nitrogen 55 mg/dl (9-20); Calcium 9.4 mg/dl (8.4-10.2); Carbon Dioxide 37 mmol/L (22-30); Chloride 99 mmol/L (98-107); Estimated Creatinine Clearance 24 ml/min; Glucose 122 mg/dl (70-99); Magnesium 1.9 mg/dl (1.6-2.3); Potassium 3.5 mmol/L (3.5-5.1); Sodium 139 mmol/L (135-145); eGFR 29.72
[2025-07-18 08:26] LABS: Glucose - Point of Care 144 mg/dl (70-99)
[2025-07-18] MEDS: PROTONIX 40 MG PO ×2 (08:56→19:50)
[2025-07-18] MEDS: ZYLOPRIM 100 MG PO (08:56)
[2025-07-18] MEDS: TOPROL XL 12.5 MG PO (08:57)
[2025-07-18] MEDS: ELIQUIS 5 MG PO ×2 (08:57→19:50)
[2025-07-18] MEDS: VITAMIN C 500 MG PO (08:57)
[2025-07-18] MEDS: KCL ELIXIR 40 MEQ PO (08:57)
[2025-07-18] MEDS: TRUSOPT 2% OPHTHALMIC SOLUTION 1 DROP BOTH EYES ×2 (08:57→19:50)
[2025-07-18] MEDS: NOVOLOG FLEXPEN-LOW RESISTANCE SC ×3 (08:57→19:17)
[2025-07-18] MEDS: MAGNESIUM OXIDE 400 MG PO (08:57)
--- NOTE | 2025-07-18 09:56 | W.PN.CARDCBS ---
Addendum entered and electronically signed by Tj Michel MD 07/18/25 14:02:
I saw and examined the patient.
The Channel Process Plant Operator's note was reviewed and I agree with the note.
Comment: Briefly, 79-year-old man past medical history of heart failure with reduced ejection fraction and chronic kidney disease who presents in acute decompensated heart failure.
Patient remained volume overloaded despite intermittent IV diuretic dosing
Underwent right heart catheterization 07/17/2025 which showed severely elevated pulmonary capillary wedge pressure
At that time he was transitioned to Bumex drip
Renal function stable and weight is trending down; however patient does not feel clinically that he is improving
Would continue Bumex drip for now and wean oxygen as able. Appreciate nephrology input.
Unfortunately, GDMT is limited by marginal blood pressure requiring midodrine. Continue metoprolol as able.
Rest per Niurka Patterson
Original Note:
Today's Communication / Plan
-
continue bumex gtt.
follow Cr, daily weight
wean supp O2 as able
Impression / Plan
-
.
Primary Pallet Sorter: Dr. Sutton
Primary Lithographic Photographer Apprentice: Dr. Yates
Impression:
Presentation with LE edema, SOB
Acute on chronic HFrEF
B/L pleural effusions/status post right thoracentesis
JAY on CKD, suspected cardiorenal syndrome
Elevated trop, suspected nonischemic myocardial injury
Hypomagnesemia
s/p R thora 06/20/25
Chronic respiratory insufficiency, on 2 L nasal cannula continuous
Left frontoparietal stroke 05/2025
Admission for acute HFrEF, JAY leading to new HD and TAVR 04/18/2025 until 05/16/2025
CKD, required temporary HD 04/2025 admission, with subsequent improvement in creatinine and therefore HD stopped
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
CAD
s/p CABG with NAVAS to LAD, free radial to ramus, SVG to OM and SVG to PDA 2001
s/p cardiac cath with patent NAVAS to LAD, widely patent free radial to ramus, 100% occluded SVG to OM and 50 to 55% mid stenosis of the SVG to the PDA to be stable 03/15/2025
ICM EF 25-30%, post TAVR
carotid disease s/p left CEA in 2012
s/p Medtronic single chamber ICD 2017
Permanent Afib
Chronic Eliquis OAC
Orthostatic hypotension on chronic midodrine
DM 2
Gout
Former smoker, quit 03/2025
ECHO 12/03/22: EF 50%, mild LVH, stage III diastolic dysfunction, mild MR, severe with peak/mean gradients 54/28 mmHg, KAELYN 0.8 cm�, trace AR, mild TR, PAP 64 mmHg, mild dilation of aorta measuring 4.0 cm
Echo 10/09/2024: EF 35 to 40%, moderate eccentric MR, severe peak/mean 60/34 mmHg and KAELYN 0.8 cm sq, mild aortic insufficiency, moderate TR with PAP 64 mmHg
Echo 03/12/2025: EF 31%, global hypokinesis, moderate MR, severe peak/mean 41/22 mmHg and KAELYN 0.7 cm sq, mild aortic regurgitation, moderate to severe TR with PAP 72 mmHg
Echo 05/11/2025: s/p TAVR with #29 Donovan BLAISE 3 aortic valve prosthesis with peak/mean 6/3 mmHg, mild MR, moderate to severe TR with PAP 60 mmHg
Echo 05/21/2025: EF 25-30%, global hypokinesis basal inferior akinesis, TAVR with mean aortic valve gradient of 6, mildly dilated left atrium, mild mitral regurgitation, mild TR, unchanged from prior
Echo July 11, 2025: Limited study. Normal ventricular chamber size with severely reduced left ventricular systolic function ejection fraction 25 to 30% with global hypokinesis and basilar inferior akinesis. ICD wire seen in the right heart.
Well-seated TAVR # 29 mm with mean gradient 6 mmHg. No aortic regurgitation.. Mild to moderate tricuspid regurgitation pulmonary artery pressure 61 mmHg. Compared to a previous full study echo from May 2025, tricuspid regurgitation is slightly
less, findings are otherwise similar.
Plan:
- Patient presented with worsening lower extremity edema and shortness of breath consistent with acute CHF exacerbation
- Underwent right heart cath 07/16/2025 with evidence of continued significant volume overload
- Started on Bumex gtt at 1 per nephrology 07/16 based on results of RHC.
- weight trending down if accurate.
- Cr 2.2 on 07/18. nephrology following. if not felt to be adequately responding to diuretics, ongoing discussions regarding restarting HD. Previously required transient HD in setting of admission for stroke 05/2025
- Remains on 5 L nasal cannula, wean as able
- Continue compression stockings
- GDMT has been limited due to to hypotension and chronic renal insufficiency. Remains on midodrine.
- He has known permanent atrial fibrillation, which is rate controlled on review of telemetry with frequent ectopy including PVCs, couplets.
- Continue eliquis
- Continue medical therapy of non-FL troponin. no CP
- d/w nursing. d/w daughter Cassi at bedside
Progress Note - Pallet Sorter
Subjective
Date of Service: July 18, 2025
Reports breathing may be somewhat improved today. no CP
Objective
Labs:
07/18/25 03:57
07/18/25 03:57
Labs
Hgb 10.1 g/dL (13.0-18.0) L 07/18/25 03:57
Hct 32.6 % (39.0-52.0) L 07/18/25 03:57
Plt Count 220 10^3/uL (130-400) 07/18/25 03:57
APTT Cancelled 07/16/25 13:00
Sodium 139 mmol/L (135-145) 07/18/25 03:57
Potassium 3.5 mmol/L (3.5-5.1) 07/18/25 03:57
BUN 55 mg/dl (9-20) H 07/18/25 03:57
Creatinine 2.2 mg/dL (0.7-1.3) H 07/18/25 03:57
Glucose 122 mg/dl (70-99) H 07/18/25 03:57
Vital Signs and I&O:
Vital Signs
Temp Pulse Resp BP Pulse Ox
97.4 F 85 20 116/92 92
07/18/25 07:59 07/18/25 08:15 07/18/25 07:59 07/18/25 08:00 07/18/25 08:00
Vital Signs
Temp Pulse Resp BP Pulse Ox
97.4 F 85 20 116/92 92
07/18/25 07:59 07/18/25 08:15 07/18/25 07:59 07/18/25 08:00 07/18/25 08:00
Intake & Output
07/16/25 07/17/25 07/18/25 07/19/25
07:59 07:59 07:59 07:59
Intake Total 960 / 960 168 / 168 648 / 648
Output Total 1500 / 1500 1050 / 1050 1825 / 1825
Balance -540 / -540 -882 / -882 -1177 / -1177
Physical Exam
Physical Exam
GEN: No distress, awake, alert, oriented x3. Chronically ill-appearing. On supplemental O2. sitting in chair
HEENT: supple, anicteric, mmm, eomi
LUNGS: CTA B/L, no wheezes
CV: Irreg, S1/S2, 1/6 syst LSB
ABD: soft, BS+, NT/ND
EXT: No cyanosis, clubbing. 3+ edema of B/L LE with chronic discoloration noted
NEURO: Gross non-focal
SKIN: Warm, pink, dry. No rash
--- NOTE | 2025-07-18 10:04 | W.PN.HOSP.TC ---
Today's Communication/Plan
-
.
Assessment / Plan
Assessment / Plan
Physical Exam
-
General: No Apparent Distress, chronically ill looking
HEENT: Normocephalic and Atraumatic
Respiratory: Negative Wheezes
Cardiac: Irregular Rhythm
GI: Soft
MSK: No cyanosis or peripheral edema
Neuro: AO to self and surroundings, followed simple commands
Psych: Calm
Assessment:
Acute on Chronic HFrEF
- Echo 05/21/25: EF of 25 to 30% status post TAVR
- elevated BNP
- s/p IV Lasix + Metolazone course
- Started on Bumex gtt
- d/w Cardiology/Nephrology on 07/14 and diuretics were held due to alkalosis; Diamox is held.
- s/p RHC with elevated pressures
- GDMT: BB. CKD precludes BRITTANY/ARB/ARNI
- salt/fluid restrictions
- repeat limited Echo 07/12: stable from prior but EF remains low 25-30%
nonischemic myocardial injury in setting of acute CHF and CKD
- trops relatively flat around .07; stop trending
Acute on chronic hypoxic respiratory failure
- baseline 2L, currently 2L - wean O2 as able
R pleural effusion s/p thoracentesis 07/11/25
JAY, cardiorenal in setting of CKD stage 3b
- nephrology following
- monitor BMP
- patient/family do confirm that they would accept HD again if indicated
diuretic induced metabolic alkalosis
- continue 3 days Diamox
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
Hx of acute Left frontoparietal 05/2025.
Hypokalemia
- continue daily repletion
Bilateral pleural effusions
- R>L on CXR
- s/p R thoracentesis 07/11 with 1.4 L removed
- repeat CXR Red[facility] AM
Hypomagnesemia
Hyponatremia, resolved
Paroxysmal A-fib
- continue BB
- holding Eliquis in favor of IV Heparin (requires intensive monitoring of PTTs) for planned RHC on Wednesday
Type 2 diabetes mellitus
- continue home dose Lantus
- continue low-dose SSI
Orthostatic hypotension
- continue home midodrine
Hyperlipidemia
- continue atorvastatin
Anemia, Chronic, macrocytic
- monitor CBCs
- baseline between 8-9s
Gout
- continue allopurinol
DVT ppx: Eliquis
Code: Full
Total time spent to see the patient, examine the patient, review data and lab results, discuss treatment plan with patient, nursing staff around 55 minutes
Anticipated Discharge: > 48 hours
Subjective/Interval History
-
Date of Service: July 18, 2025
He denies chest pain
No fever over night
Objective Data
-
Labs:
Laboratory Results
07/18/25
03:57
WBC 6.0
Hgb 10.1 L
Hct 32.6 L
Plt Count 220
Sodium 139
Potassium 3.5
Chloride 99
Carbon Dioxide 37 H
BUN 55 H
Creatinine 2.2 H
Glucose 122 H
Calcium 9.4
Vital Signs:
Vital Signs
Temp Pulse Resp BP Pulse Ox
97.4 F 85 20 116/92 92
07/18/25 07:59 07/18/25 08:15 07/18/25 07:59 07/18/25 08:00 07/18/25 08:00
I&O
07/17/25 07/18/25 07/19/25
06:59 06:59 06:59
Intake Total 168 / 168 648 / 648
Output Total 1050 / 1050 1825 / 1825
Balance -882 / -882 -1177 / -1177
--- NOTE | 2025-07-18 13:02 | W.PN.NEPH.PH ---
Today's Communication / Plan
-
Acute hemodialysis
Assessment/Plan
-
IMP:
Acute exacerbation of HFrEF
Echo�05/21/2025, patient has an EF of 25 to 30% status post TAVR
bilateral pleural effusions
Status post thoracentesis 07/11 1400
JAY on CKD stage IIIb- cr 1.5-2, Dr Yates
Hypomagnesemia
Paroxysmal A-fib
Elevated troponins
Type 2 diabetes mellitus
Orthostatic hypotension
Hyperlipidemia
Anemia
Gout
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
CAD/CABG x 4 (2001)
Medtronic single-chamber ICD, 2017
Carotid disease -s/p left CEA 2012.
h/o GI bleed 03/2025 , known h/o AVMS
h/o CVA
briefly on HD 05/2025 after TAVR
Plan:
stable renal function cr 2.1
noted RHC findings PCWP of 38 on 07/16
Patient with some improvement in weights with Bumex drip but is becoming alkalotic once again.
He is becoming more confused as well multifactorial/alkalosis/uremia
Understandably has cardiomyopathy reduced ejection fraction soft blood pressure may be difficult to dialyze and ultrafiltrate as I made this aware to his Neli who I spoke to via telephone. She understands the risk and is okay with proceed as
is the patient though he admits to being confused and states he is not sure what is going on.
Discussed this with all medical team involved including his medical nurse.
Consult placed to interventional radiology and Luis text sent for an NHAN to urgent consult

high risk encounter
35 minutes critical care
-
-
Date of Service: July 18, 2025
CC / HPI / ROS
-
Chief Complaint:
CKD
History of Present Illness:
CKD/Cr stable 2.1
s/p right thoracentesis 07/11 for 1.4L
BP stable on midodrine
on 5lit of O2
Review of Systems:
Continues to have shortness of breath and confusion
wt is down
no pain
Labs
-
Labs:
WBC 6.0 10^3/uL (4.8-10.8) 07/18/25 03:57
RBC 3.32 10^6/uL (4.70-6.10) L 07/18/25 03:57
Hgb 10.1 g/dL (13.0-18.0) L 07/18/25 03:57
Hct 32.6 % (39.0-52.0) L 07/18/25 03:57
Plt Count 220 10^3/uL (130-400) 07/18/25 03:57
Sodium 139 mmol/L (135-145) 07/18/25 03:57
Potassium 3.5 mmol/L (3.5-5.1) 07/18/25 03:57
Chloride 99 mmol/L (98-107) 07/18/25 03:57
Carbon Dioxide 37 mmol/L (22-30) H 07/18/25 03:57
BUN 55 mg/dl (9-20) H 07/18/25 03:57
Creatinine 2.2 mg/dL (0.7-1.3) H 07/18/25 03:57
eGFR 29.72 07/18/25 03:57
Glucose 122 mg/dl (70-99) H 07/18/25 03:57
Calcium 9.4 mg/dl (8.4-10.2) 07/18/25 03:57
Efs-R-Degftpaasfo Pept 96304 pg/ml 07/10/25 08:27
Albumin 2.7 g/dl (3.5-5.0) L 07/11/25 05:34
Physical Exam
-
Vital Signs:
Vital Signs
Temp Pulse Resp BP Pulse Ox
97.8 F 70 18 116/92 92
07/18/25 10:53 07/18/25 10:53 07/18/25 10:53 07/18/25 08:00 07/18/25 10:53
Respiratory:: Bilateral: Coarse, Bilateral: Rales and Bilateral: Rhonchi
--- NOTE | 2025-07-18 16:05 | PTCARENOTE ---
Received pt S/P right IJ nontunneled cath insertion. VSS, right IJ dressing c/d/i. Denies pain at present.
[2025-07-18] MEDS: FLEXBUMIN 25% FOR HEMODIALYSIS 12.5 GRAMS IV ×2 (16:30→17:51)
[2025-07-18] MEDS: MANNITOL 25% 12.5 GRAMS IV ×2 (16:35→17:45)
--- NOTE | 2025-07-18 16:48 | W.PN.NEPH.HD ---
Assessment
-
Status post right IJ nontunneled dialysis catheter dialysis tolerating so far from a blood pressure standpoint. Plan for dialysis tomorrow
Progress Note - Hemodialysis
-
Date of Service: July 18, 2025
Duration: 15 minutes and 2 hours
Potassium Bath: 3
Calcium Bath: 2.5
Opti-Dialyzer: 160
Ultrafiltration: Other
Blood Flow: 300
Dialysate Flow: 600
EPO: Yes
[2025-07-18] MEDS: VITAMIN B-12 PO (18:13)
[2025-07-18] MEDS: FEOSOL PO (18:13)
[2025-07-18 18:56] LABS: Hepatitis B Surface Antigen Negative (Negative)
[2025-07-18 19:07] LABS: Glucose - Point of Care 143 mg/dl (70-99)
[2025-07-18] MEDS: LANTUS 0.09 UNITS SC (22:15)
[2025-07-18] MEDS: LIPITOR 80 MG PO (22:15)
[2025-07-18] MEDS: DESYREL 25 MG PO (22:15)
[2025-07-18 22:16] LABS: Glucose - Point of Care 202 mg/dl (70-99)
[2025-07-19] VITALS (25 sets, daily range): BP systolic 99–130; BP diastolic 36–80; PULSE 76; BMI 25.0
[2025-07-19 08:26] LABS: Glucose - Point of Care 123 mg/dl (70-99)
[2025-07-19] MEDS: NOVOLOG FLEXPEN-LOW RESISTANCE SC ×2 (08:32→17:25)
--- NOTE | 2025-07-19 08:34 | PTCARENOTE ---
Assumed care of pt from prev nsg shift. Pt drowsy but easily arousable; AAOx2, pt confused to time, which has been pt's baseline. Pt w/no c/o CP or SOB. Pt's VSS w/HR in the 70's & BP 108/55. Pt is V-paced on telemetry monitoring. Plan for the day
discussed w/pt; Pt for HD this AM at 1100. Breakfast order called in for pt. Pt w/callbell within reach & bed alarm in place for safety. No addtl needs at this time.
[2025-07-19] MEDS: TOPROL XL 12.5 MG PO (09:49)
[2025-07-19] MEDS: ELIQUIS 5 MG PO ×2 (09:49→19:48)
[2025-07-19] MEDS: TRUSOPT 2% OPHTHALMIC SOLUTION 1 DROP BOTH EYES ×2 (09:50→19:48)
[2025-07-19] MEDS: PROTONIX 40 MG PO (09:50)
[2025-07-19] MEDS: ZYLOPRIM 100 MG PO (09:50)
--- NOTE | 2025-07-19 10:20 | W.PN.HOSP.TC ---
Addendum entered and electronically signed by Tonia Loza MD 07/19/25 14:24:
Addendum
Patient is having worsening hypoxia during hemodialysis with respiratory distress. He is high risk because of severely depressed LVEF. He was given a total of 20 mg of midodrine prior to dialysis, mild hypotension noted, currently oxygen
requirement around 12 L
-Discussed with nursing staff, patient is having shortness of breath with mucus/yellow phlegms. Will give nebulizer treatment.
Will do portable chest x-ray.
-Will give low-dose IV Dilaudid as needed bronchospasm/shortness of Breath
-This plan discussed with patient & at bedside, both agreed. Discussed CODE STATUS with . She reported that patient would not want to be on life support, no intubation or chest compressions. Agreed to DNR status.
is aware from discussion with rn teacher that patient might not tolerate dialysis. asked about next, we discussed inpatient comfort care if patient fails treatment.
-Updated rn teacher and ramp attendant.
End
Original Note:
Today's Communication/Plan
-
.
Assessment / Plan
Assessment / Plan
Physical Exam
-
General: No Apparent Distress, chronically ill looking
HEENT: Normocephalic and Atraumatic
Respiratory: Negative Wheezes
Cardiac: Irregular Rhythm
GI: Soft
MSK: No cyanosis or peripheral edema
Neuro: AO to self and surroundings, followed simple commands
Psych: Calm
Assessment:
Acute on Chronic HFrEF with progressive JAY
- Echo 05/21/25: EF of 25 to 30% status post TAVR
- s/p RHC with elevated pressures
- s/p IV Lasix + Metolazone course
- Started on Bumex gtt but no improvement with rising metabolic alkalosis
- Started on HD 07/18
- GDMT: BB. CKD precludes BRITTANY/ARB/ARNI
- salt/fluid restrictions
- repeat limited Echo 07/12: stable from prior but EF remains low 25-30%
nonischemic myocardial injury in setting of acute CHF and CKD
- trops relatively flat around .07; stop trending
Acute on chronic hypoxic respiratory failure
- baseline 2L, currently 2L - wean O2 as able
R pleural effusion s/p thoracentesis 07/11/25
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
- patient/family accepted HD risk.
Started on HD 07/18, given Midodrine for pressure support
# TME , some confusion noted, likely due to rising BUN
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
Hx of acute Left frontoparietal 05/2025.
Bilateral pleural effusions
- R>L on CXR
- s/p R thoracentesis 07/11 with 1.4 L removed
Paroxysmal A-fib
- continue BB
Resumed Eliquis.
#Type 2 diabetes mellitus
- continue home dose Lantus, lowered the dose after staring HD to avoid hypoglycemia
- continue low-dose SSI
#Orthostatic hypotension
- continue home midodrine
Hyperlipidemia
- continue atorvastatin
#Anemia, Chronic, macrocytic
- baseline between 8-9s
Gout
- continue allopurinol
DVT ppx: Eliquis
Code: Full
Total time spent to see the patient, examine the patient, review data and lab results, discuss treatment plan with patient, nursing staff around 55 minutes
Anticipated Discharge: > 48 hours
Subjective/Interval History
-
Date of Service: July 19, 2025
No Fever
No worsening hypoxia
Tired
Objective Data
-
Labs:
Laboratory Results
07/19/25
12:00
Hgb Pending
Hct Pending
Sodium Pending
Potassium Pending
Chloride Pending
Carbon Dioxide Pending
BUN Pending
Creatinine Pending
Glucose Pending
Calcium Pending
Vital Signs:
Vital Signs
Temp Pulse Resp BP Pulse Ox
97.8 F 80 20 104/43 92
07/19/25 06:29 07/19/25 08:00 07/19/25 06:29 07/19/25 09:49 07/19/25 10:13
I&O
07/18/25 07/19/25 07/20/25
06:59 06:59 06:59
Intake Total 648 / 648 480 / 480
Output Total 1825 / 1825 500 / 500 400 / 400
Balance -1177 / -1177 -500 / -500 80 / 80
--- NOTE | 2025-07-19 10:29 | W.PN.CARDCBS ---
Addendum entered and electronically signed by Cordell Ponce MD 07/19/25 10:46:
I saw and examined the patient.
The Cold Molding Press Operator's note was reviewed and I agree with the note.
Comment:
GEN: No distress, awake, Ox3
HEENT: supple, anicteric, mmm
LUNGS: bilat rhonchi
CV: Reg, S1/S2, 1/6 syst LSB, no gallop
ABD: soft, BS+, NT/ND
EXT: No edema
NEURO: Gross non-focal
SKIN: No rash
Plan:
Looks better today. Continue with hemodialysis for volume removal. Weight is significantly improved.
Continue midodrine for blood pressure support.
Continue Toprol and Eliquis.
Creatinine back to baseline at approximately 2.2. I am not sure he is going to be able to get off hemodialysis at this time.
Right heart catheterization numbers were reviewed where he was markedly volume overloaded with an adequate cardiac index.
Original Note:
Today's Communication / Plan
-
Dialysis again today for volume removal
Follow creatinine
Wean supplemental oxygen as able
GDMT limited by hypotension and kidney disease
Impression / Plan
-
.
Primary House Carpenter: Dr. Sutton
Primary Bailiff: Dr. Yates
Impression:
Presentation with LE edema, SOB
Acute on chronic HFrEF
B/L pleural effusions/status post right thoracentesis
JAY on CKD, suspected cardiorenal syndrome
Elevated trop, suspected nonischemic myocardial injury
Hypomagnesemia
s/p R thora 06/20/25
Chronic respiratory insufficiency, on 2 L nasal cannula continuous
Left frontoparietal stroke 05/2025
Admission for acute HFrEF, JAY leading to new HD and TAVR 04/18/2025 until 05/16/2025
CKD, required temporary HD 04/2025 admission, with subsequent improvement in creatinine and therefore HD stopped
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
CAD
s/p CABG with NAVAS to LAD, free radial to ramus, SVG to OM and SVG to PDA 2001
s/p cardiac cath with patent NAVAS to LAD, widely patent free radial to ramus, 100% occluded SVG to OM and 50 to 55% mid stenosis of the SVG to the PDA to be stable 03/15/2025
ICM EF 25-30%, post TAVR
carotid disease s/p left CEA in 2012
s/p Medtronic single chamber ICD 2017
Permanent Afib
Chronic Eliquis OAC
Orthostatic hypotension on chronic midodrine
DM 2
Gout
Former smoker, quit 03/2025
ECHO 12/03/22: EF 50%, mild LVH, stage III diastolic dysfunction, mild MR, severe with peak/mean gradients 54/28 mmHg, KAELYN 0.8 cm�, trace AR, mild TR, PAP 64 mmHg, mild dilation of aorta measuring 4.0 cm
Echo 10/09/2024: EF 35 to 40%, moderate eccentric MR, severe peak/mean 60/34 mmHg and KAELYN 0.8 cm sq, mild aortic insufficiency, moderate TR with PAP 64 mmHg
Echo 03/12/2025: EF 31%, global hypokinesis, moderate MR, severe peak/mean 41/22 mmHg and KAELYN 0.7 cm sq, mild aortic regurgitation, moderate to severe TR with PAP 72 mmHg
Echo 05/11/2025: s/p TAVR with #29 Donovan BLAISE 3 aortic valve prosthesis with peak/mean 6/3 mmHg, mild MR, moderate to severe TR with PAP 60 mmHg
Echo 05/21/2025: EF 25-30%, global hypokinesis basal inferior akinesis, TAVR with mean aortic valve gradient of 6, mildly dilated left atrium, mild mitral regurgitation, mild TR, unchanged from prior
Echo July 11, 2025: Limited study. Normal ventricular chamber size with severely reduced left ventricular systolic function ejection fraction 25 to 30% with global hypokinesis and basilar inferior akinesis. ICD wire seen in the right heart.
Well-seated TAVR # 29 mm with mean gradient 6 mmHg. No aortic regurgitation.. Mild to moderate tricuspid regurgitation pulmonary artery pressure 61 mmHg. Compared to a previous full study echo from May 2025, tricuspid regurgitation is slightly
less, findings are otherwise similar.
Plan:
- Patient presented with worsening lower extremity edema and shortness of breath consistent with acute CHF exacerbation
- Underwent right heart cath 07/16/2025 with evidence of continued significant volume overload
- Started on Bumex gtt at 1 per nephrology 07/16 based on results of RHC however 07/18 was noted to have worsening alkalosis so restarted on HD 07/18 (patient previously required transient HD in setting of admission for stroke 05/2025)
- weight down 3 pounds overnight if accurate
- Creatinine pending 07/19
- Wean supplemental oxygen as able
- Continue compression stockings
- GDMT has been limited due to to hypotension and chronic renal insufficiency. Remains on midodrine.
- He has known permanent atrial fibrillation, which is rate controlled on review of telemetry with frequent ectopy including PVCs, couplets.
- Continue eliquis
- Continue medical therapy of non-LA troponin. no CP
- PT/OT
Progress Note - House Carpenter
Subjective
Date of Service: July 19, 2025
Reports feels tired and voice is weak. Reports breathing is about the same
Objective
Labs:
Labs
Hgb 10.1 g/dL (13.0-18.0) L 07/18/25 03:57
Hct 32.6 % (39.0-52.0) L 07/18/25 03:57
Plt Count 220 10^3/uL (130-400) 07/18/25 03:57
APTT Cancelled 07/16/25 13:00
Sodium 139 mmol/L (135-145) 07/18/25 03:57
Potassium 3.5 mmol/L (3.5-5.1) 07/18/25 03:57
BUN 55 mg/dl (9-20) H 07/18/25 03:57
Creatinine 2.2 mg/dL (0.7-1.3) H 07/18/25 03:57
Glucose 122 mg/dl (70-99) H 07/18/25 03:57
Vital Signs and I&O:
Vital Signs
Temp Pulse Resp BP Pulse Ox
97.8 F 80 20 104/43 92
07/19/25 06:29 07/19/25 08:00 07/19/25 06:29 07/19/25 09:49 07/19/25 10:13
Vital Signs
Temp Pulse Resp BP Pulse Ox
97.8 F 80 20 104/43 92
07/19/25 06:29 07/19/25 08:00 07/19/25 06:29 07/19/25 09:49 07/19/25 10:13
Intake & Output
07/17/25 07/18/25 07/19/25 07/20/25
07:59 07:59 07:59 07:59
Intake Total 168 / 168 648 / 648 480 / 480
Output Total 1050 / 1050 1825 / 1825 500 / 500 400 / 400
Balance -882 / -882 -1177 / -1177 -500 / -500 80 / 80
Physical Exam
Physical Exam
GEN: No distress, awake, alert, oriented x3. Chronically ill-appearing. On supplemental O2. sitting in chair
HEENT: supple, anicteric, mmm, eomi
LUNGS: CTA B/L, no wheezes
CV: Irreg, S1/S2, 1/6 syst LSB
ABD: soft, BS+, NT/ND
EXT: No cyanosis, clubbing. 2-3+ edema of B/L LE with chronic discoloration noted
NEURO: Gross non-focal
SKIN: Warm, pink, dry. No rash
--- NOTE | 2025-07-19 11:11 | W.PN.NEPH.PH ---
Today's Communication / Plan
-
Dialysis
Assessment/Plan
-
IMP:
Acute exacerbation of HFrEF
Echo�05/21/2025, patient has an EF of 25 to 30% status post TAVR
bilateral pleural effusions
Status post thoracentesis 07/11 1400
JAY on CKD stage IIIb- cr 1.5-2, Dr Yates
Hypomagnesemia
Paroxysmal A-fib
Elevated troponins
Type 2 diabetes mellitus
Orthostatic hypotension
Hyperlipidemia
Anemia
Gout
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
CAD/CABG x 4 (2001)
Medtronic single-chamber ICD, 2017
Carotid disease -s/p left CEA 2012.
h/o GI bleed 03/2025 , known h/o AVMS
h/o CVA
briefly on HD 05/2025 after TAVR
Plan:
stable renal function cr 2.1
noted RHC findings PCWP of 38 on 07/16
Understandably has cardiomyopathy reduced ejection fraction soft blood pressure may be difficult to dialyze and ultrafiltrate as I made this aware to his Neli who I spoke to via telephone. She understands the risk and is okay with proceed as
is the patient though he admits to being confused and states he is not sure what is going on.
Acute dialysis initiated 07/18 via nontunneled dialysis cath with blood pressure tolerated ultrafiltration 3 L
Dialysis today again and likely tomorrow as well
Patient appearing better with the treatment but still requiring high amounts of oxygen

high risk encounter
35 minutes critical care
-
-
Date of Service: July 19, 2025
CC / HPI / ROS
-
Chief Complaint:
CKD
History of Present Illness:
CKD/Cr stable 2.1
s/p right thoracentesis 07/11 for 1.4L
BP stable on midodrine
on 5lit of O2
Review of Systems:
Continues to have shortness of breath
wt is down
no pain
Labs
-
Labs:
WBC 6.0 10^3/uL (4.8-10.8) 07/18/25 03:57
RBC 3.32 10^6/uL (4.70-6.10) L 07/18/25 03:57
Plt Count 220 10^3/uL (130-400) 07/18/25 03:57
eGFR 29.72 07/18/25 03:57
Ssr-A-Hlmjrlzelvz Pept 06996 pg/ml 07/10/25 08:27
Albumin 2.7 g/dl (3.5-5.0) L 07/11/25 05:34
Physical Exam
-
Vital Signs:
Vital Signs
Temp Pulse Resp BP Pulse Ox
97.4 F 80 24 104/43 95
07/19/25 10:50 07/19/25 08:00 07/19/25 10:50 07/19/25 09:49 07/19/25 10:50
Respiratory:: Bilateral: Coarse, Bilateral: Rales and Bilateral: Rhonchi
Extremity Edema:: None: Bilateral:
[2025-07-19 11:45] LABS: Glucose - Point of Care 280 mg/dl (70-99)
[2025-07-19] MEDS: NOVOLOG FLEXPEN-LOW RESISTANCE 3 UNITS SC (11:52)
[2025-07-19] MEDS: MANNITOL 25% 12.5 GRAMS IV ×2 (12:56→14:04)
[2025-07-19 13:02] LABS: Hematocrit 29.6 % (39.0-52.0); Hemoglobin 9.2 g/dL (13.0-18.0)
[2025-07-19 13:05] LABS: Blood Urea Nitrogen 39 mg/dl (9-20); Calcium 8.8 mg/dl (8.4-10.2); Chloride 99 mmol/L (98-107); Estimated Creatinine Clearance 26 ml/min; Glucose 215 mg/dl (70-99); Potassium 3.5 mmol/L (3.5-5.1); Sodium 140 mmol/L (135-145); eGFR 33.32
--- NOTE | 2025-07-19 13:29 | PTCARENOTE ---
The pt started HD around 1230. Around 1300 pt started c/o SOB, became tachypneic & O2 Sats went from 94% on 6L via NC to mid 80's on the 6L. Pt was repositioned & respiratory came to see him. Pt is now on 12L O2 via midflow w/O2 sats now in the low
90's. Upon auscultation, pt's lungs are clear but decreased in the bases posteriorly, but he sounds very coarse upper anteriorly, R>L. Hospitalist notified, awaiting additional orders.
[2025-07-19 13:49] LABS: Carbon Dioxide 33 mmol/L (22-30)
--- NOTE | 2025-07-19 14:44 | W.PN.NEPH.HD ---
Assessment
-
Seen on dialysis tolerating so far ultrafiltration of 2 L of blood pressures between 110 systolic to 120 systolic with a few dips near 100.
He is on higher amounts of oxygen but relatively comfortable. His is at the bedside we had a discussion about how aggressive we are going to be and she is aware if his blood pressure begins to drop further or we are unable to do
ultrafiltration then we would have to stop dialysis. Putting him on pressors or more aggressive care just to get through her dialysis session would be futile and if she agrees.
Discussed this with Dr. Loza as well. See how he does through the rest of his treatment and we will attempt another dialysis treatment tomorrow with hopes of improved oxygen requirements with ultrafiltration.
Progress Note - Hemodialysis
-
Date of Service: July 19, 2025
Duration: 15 minutes and 2 hours
Potassium Bath: 3
Calcium Bath: 2.5
Opti-Dialyzer: 160
Ultrafiltration: Other
Blood Flow: 300
Dialysate Flow: 600
EPO: Yes
[2025-07-19] MEDS: DUONEB 3 ML INH (15:08)
[2025-07-19 17:22] LABS: Glucose - Point of Care 132 mg/dl (70-99)
[2025-07-19 22:05] LABS: Glucose - Point of Care 199 mg/dl (70-99)
[2025-07-19] MEDS: LANTUS 0.07 UNITS SC (22:07)
[2025-07-19] MEDS: LIPITOR 80 MG PO (22:08)
[2025-07-19] MEDS: DESYREL 25 MG PO (22:09)
[2025-07-20] VITALS (26 sets, daily range): BP systolic 95–122; BP diastolic 40–80; BMI 24.2
--- NOTE | 2025-07-20 00:37 | PTCARENOTE ---
Received pt at change of shift resting in bed. V-paced w/ PVC's on tele, HR 70's. pt denies any CP or SOB at this time. pt on 6LO2 via midflow NC, sating 95-100% at this time. R groin site intact and ERIC, no bleeding or hematoma noted at this time.
High fall risk precautions maintained, bed and chair alarm on and audible. Encouraged pt to call RN for assistance and w/ any questions/concerns. Updated pt on plan of care. Call moreno within reach.
[2025-07-20 02:53] LABS: Hematocrit 29.7 % (39.0-52.0); Hemoglobin 9.1 g/dL (13.0-18.0); Mean Corp Hgb Conc. 30.6 g/dL (33.0-37.0); Mean Corpuscular Volume 101.4 fL (80.0-94.0); Platelet Count 136 10^3/uL (130-400); Red Cell Dist. Width 14.5 % (11.5-14.5)
[2025-07-20 03:10] LABS: Blood Urea Nitrogen 28 mg/dl (9-20); Calcium 8.5 mg/dl (8.4-10.2); Carbon Dioxide 32 mmol/L (22-30); Chloride 101 mmol/L (98-107); Estimated Creatinine Clearance 29 ml/min; Glucose 114 mg/dl (70-99); Potassium 3.8 mmol/L (3.5-5.1); Sodium 137 mmol/L (135-145); eGFR 37.82
[2025-07-20 07:47] LABS: Glucose - Point of Care 107 mg/dl (70-99)
[2025-07-20] MEDS: NOVOLOG FLEXPEN-LOW RESISTANCE SC ×2 (07:49→13:00)
[2025-07-20] MEDS: ZYLOPRIM 100 MG PO (09:03)
[2025-07-20] MEDS: ELIQUIS 5 MG PO ×2 (09:03→21:18)
[2025-07-20] MEDS: TOPROL XL 12.5 MG PO (09:03)
[2025-07-20] MEDS: PROTONIX 40 MG PO (09:03)
[2025-07-20] MEDS: TRUSOPT 2% OPHTHALMIC SOLUTION 1 DROP BOTH EYES ×2 (09:04→21:18)
[2025-07-20] MEDS: SOLU-MEDROL PF 40 MG IV (09:30)
--- NOTE | 2025-07-20 10:25 | W.PN.HOSP.TC ---
Today's Communication/Plan
-
.
Assessment / Plan
Assessment / Plan
Physical Exam
-
General: No Apparent Distress, chronically ill looking
HEENT: Normocephalic and Atraumatic
Respiratory: Negative Wheezes
Cardiac: Irregular Rhythm
GI: Soft
MSK: No cyanosis or peripheral edema
Neuro: AO to self and surroundings, followed simple commands
Psych: Calm
Assessment/ Plan:
# Acute on chronic hypoxic respiratory failure due to acute cardiogenic pulmonary edema/ pleural effusion, acute COPD exacerbation ( COPD-FEV1 1.7 L- -70%, DLCO 38% )
- baseline 2L, currently 6-7L -
R pleural effusion s/p thoracentesis 07/11/25
Patient had worsening hypoxia/ hypotension yesterday during hemodialysis with respiratory distress. He was given a total of 20 mg of midodrine prior to dialysis.
d/w pt, agreed to DNR/DNI
c/w Nebs
Added IV steroid
c/w HD as tolerated.
-This plan discussed with patient & at bedside, both agreed. Discussed CODE STATUS with . She reported that patient would not want to be on life support, no intubation or chest compressions. Agreed to DNR status.
is aware from discussion with dental lab technician that patient might not tolerate dialysis. asked about next, we discussed inpatient comfort care if patient fails treatment.
-Updated dental lab technician and benefits sales consultant.
End
Acute on Chronic HFrEF with progressive JAY
- Echo 05/21/25: EF of 25 to 30% status post TAVR
- s/p RHC with elevated pressures
- s/p IV Lasix + Metolazone course
- Started on Bumex gtt but no improvement with rising metabolic alkalosis
- Started on HD 07/18
- GDMT: BB. CKD precludes BRITTANY/ARB/ARNI
- salt/fluid restrictions
- repeat limited Echo 07/12: stable from prior but EF remains low 25-30%
nonischemic myocardial injury in setting of acute CHF and CKD
- trops relatively flat around .07; stop trending
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
- patient/family accepted HD risk.
Started on HD 07/18, given Midodrine for pressure support
# TME , some confusion noted, likely due to rising BUN
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
Hx of acute Left frontoparietal 05/2025.
Bilateral pleural effusions
- R>L on CXR
- s/p R thoracentesis 07/11 with 1.4 L removed
Paroxysmal A-fib
- continue BB
Resumed Eliquis.
#Type 2 diabetes mellitus
- continue home dose Lantus, lowered the dose after staring HD to avoid hypoglycemia
- continue low-dose SSI
#Orthostatic hypotension
- continue home midodrine
Hyperlipidemia
- continue atorvastatin
#Anemia, Chronic, macrocytic
- baseline between 8-9s
Gout
- continue allopurinol
DVT ppx: Eliquis
Code: Full
Total time spent to see the patient, examine the patient, review data and lab results, discuss treatment plan with patient, nursing staff around 55 minutes
Anticipated Discharge: > 48 hours
Subjective/Interval History
-
Date of Service: July 20, 2025
Patient feels sob but not worse
Objective Data
-
Labs:
Laboratory Results
07/20/25
02:23
WBC 6.0
Hgb 9.1 L
Hct 29.7 L
Plt Count 136 D
Sodium 137
Potassium 3.8
Chloride 101
Carbon Dioxide 32 H
BUN 28 H
Creatinine 1.8 H
Glucose 114 H
Calcium 8.5
Vital Signs:
Vital Signs
Temp Pulse Resp BP Pulse Ox
98.2 F 75 20 112/49 99
07/20/25 06:19 07/20/25 06:25 07/20/25 06:19 07/20/25 09:03 07/20/25 06:19
I&O
07/19/25 07/20/25 07/21/25
06:59 06:59 06:59
Intake Total 960 / 960
Output Total 500 / 500 600 / 600
Balance -500 / -500 360 / 360
[2025-07-20] MEDS: DUONEB INH (11:09)
[2025-07-20] MEDS: DUONEB 3 ML INH ×3 (11:17→20:12)
--- NOTE | 2025-07-20 11:45 | PTCARENOTE ---
Assumed care. Patient received lying in bed, awake, alert and oriented but forgetful. He is minimally interactive. He currently denies pain or SOB. See assessment analyst charted on worklist flowsheet. Med given whole in applesauce, aspiration
precautions. HD nurse at bedside. BBS clear except diminished RML and right base. S1S2 regular with positive click. Right IJ HD catheter in place. Left hand and right upper arm IV sites flush easily, WDL. Patient is cachectic and sallow in
appearance. Pedal pulses diminished, bilateral LE edema 1+. 100% Vpaced on CM with occasional PVCs. Sacral foam in place. Protective foam right elbow. Right groin site WDL. Condom catheter in place. Bed in low and locked position, bed alarm on, call
moreno within reach. Oxygen decreased to 4L/nc per RT.
--- NOTE | 2025-07-20 11:47 | W.PN.CARDCBS ---
Addendum entered and electronically signed by Madison Mejia DO 07/20/25 14:08:
I saw and examined the patient.
The Ssis Etl Developer's note was reviewed and I agree with the note.
Comment: Patient seen and examined prior to planned dialysis today. Lying supine and states breathing is better. Denies chest pain.
GEN: No distress, awake, alert, oriented x3. Chronically ill-appearing, frail. On supplemental O2.
HEENT: supple, anicteric, mmm, eomi
LUNGS: CTA B/L, no wheezes
CV: Irreg, S1/S2, 1/6 syst LSB
ABD: soft, BS+, NT/ND
EXT: No cyanosis, clubbing. 2+ edema of B/L LE with chronic discoloration noted
NEURO: Gross non-focal
Plan:
Recurrent acute on chronic HFrEF/cardiorenal syndrome on new dialysis this admission
-Tolerating dialysis with nontunneled dialysis catheter, initiated 07/18
-Further volume optimization with plans for another session of dialysis today
-Monitor renal function and electrolytes with dialysis. Creatinine improved to 1.8 on 07/20
- Continue compression stockings
- GDMT has been limited due to to hypotension and chronic renal insufficiency. Remains on midodrine.
-Stable coronary anatomy by catheterization 03/15/2025
-Appreciate nephrology input
History of transfemoral 29 mm Donovan Maria Luisa S3 TAVR 05/11/2025
- 2D echocardiogram 07/11/2025 found TAVR well-seated with mean transaortic gradient 6 mmHg and no aortic root insufficient
- He has known permanent atrial fibrillation, which is rate controlled on review of telemetry with frequent ectopy including PVCs, couplets.
- Continue eliquis
- Continue medical therapy of non-IA troponin. no CP
- Prognosis poor.
- He is a DNR CODE STATUS
Original Note:
Today's Communication / Plan
-
HD again today
wean supp O2 as able
Impression / Plan
-
.
Primary Technical Applications Specialist: Dr. Sutton
Primary Digital Media Planner: Dr. Yates
Impression:
Presentation with LE edema, SOB
Acute on chronic HFrEF
B/L pleural effusions/status post right thoracentesis
JAY on CKD, suspected cardiorenal syndrome
Elevated trop, suspected nonischemic myocardial injury
Hypomagnesemia
s/p R thora 06/20/25
Chronic respiratory insufficiency, on 2 L nasal cannula continuous
Left frontoparietal stroke 05/2025
Admission for acute HFrEF, JAY leading to new HD and TAVR 04/18/2025 until 05/16/2025
CKD, required temporary HD 04/2025 admission, with subsequent improvement in creatinine and therefore HD stopped
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
CAD
s/p CABG with NAVAS to LAD, free radial to ramus, SVG to OM and SVG to PDA 2001
s/p cardiac cath with patent NAVAS to LAD, widely patent free radial to ramus, 100% occluded SVG to OM and 50 to 55% mid stenosis of the SVG to the PDA to be stable 03/15/2025
ICM EF 25-30%, post TAVR
carotid disease s/p left CEA in 2012
s/p Medtronic single chamber ICD 2017
Permanent Afib
Chronic Eliquis OAC
Orthostatic hypotension on chronic midodrine
DM 2
Gout
Former smoker, quit 03/2025
ECHO 12/03/22: EF 50%, mild LVH, stage III diastolic dysfunction, mild MR, severe with peak/mean gradients 54/28 mmHg, KAELYN 0.8 cm�, trace AR, mild TR, PAP 64 mmHg, mild dilation of aorta measuring 4.0 cm
Echo 10/09/2024: EF 35 to 40%, moderate eccentric MR, severe peak/mean 60/34 mmHg and KAELYN 0.8 cm sq, mild aortic insufficiency, moderate TR with PAP 64 mmHg
Echo 03/12/2025: EF 31%, global hypokinesis, moderate MR, severe peak/mean 41/22 mmHg and KAELYN 0.7 cm sq, mild aortic regurgitation, moderate to severe TR with PAP 72 mmHg
Echo 05/11/2025: s/p TAVR with #29 Donovan MARIA LUISA 3 aortic valve prosthesis with peak/mean 6/3 mmHg, mild MR, moderate to severe TR with PAP 60 mmHg
Echo 05/21/2025: EF 25-30%, global hypokinesis basal inferior akinesis, TAVR with mean aortic valve gradient of 6, mildly dilated left atrium, mild mitral regurgitation, mild TR, unchanged from prior
Echo July 11, 2025: Limited study. Normal ventricular chamber size with severely reduced left ventricular systolic function ejection fraction 25 to 30% with global hypokinesis and basilar inferior akinesis. ICD wire seen in the right heart.
Well-seated TAVR # 29 mm with mean gradient 6 mmHg. No aortic regurgitation.. Mild to moderate tricuspid regurgitation pulmonary artery pressure 61 mmHg. Compared to a previous full study echo from May 2025, tricuspid regurgitation is slightly
less, findings are otherwise similar.
Plan:
- Patient presented with worsening lower extremity edema and shortness of breath consistent with acute CHF exacerbation
- Underwent right heart cath 07/16/2025 with evidence of continued significant volume overload
- Started on Bumex gtt at 1 per nephrology 07/16 based on results of RHC however 07/18 was noted to have worsening alkalosis so restarted on HD 07/18 (patient previously required transient HD in setting of admission for stroke 05/2025)
- Experienced some decompensation with hemodialysis yesterday requiring up to 12 L nasal cannula at 1 point. Presently oxygenation improved, only requiring 6 L nasal cannula, continue to wean as able
- Volume status appears to be improving, weight down 5 pounds if accurate. For HD again today
- Creatinine improved to 1.8 on 07/20
- Continue compression stockings
- GDMT has been limited due to to hypotension and chronic renal insufficiency. Remains on midodrine.
- He has known permanent atrial fibrillation, which is rate controlled on review of telemetry with frequent ectopy including PVCs, couplets.
- Continue eliquis
- Continue medical therapy of non-IA troponin. no CP
- Prognosis poor. He is a DNR CODE STATUS
- PT/OT as able
Progress Note - Technical Applications Specialist
Subjective
Date of Service: July 20, 2025
Denies current breathing issues or pain
Objective
Labs:
07/20/25 02:23
07/20/25 02:23
Labs
Hgb 9.1 g/dL (13.0-18.0) L 07/20/25 02:23
Hct 29.7 % (39.0-52.0) L 07/20/25 02:23
Plt Count 136 10^3/uL (130-400) D 07/20/25 02:23
APTT Cancelled 07/16/25 13:00
Sodium 137 mmol/L (135-145) 07/20/25 02:23
Potassium 3.8 mmol/L (3.5-5.1) 07/20/25 02:23
BUN 28 mg/dl (9-20) H 07/20/25 02:23
Creatinine 1.8 mg/dL (0.7-1.3) H 07/20/25 02:23
Glucose 114 mg/dl (70-99) H 07/20/25 02:23
Vital Signs and I&O:
Vital Signs
Temp Pulse Resp BP Pulse Ox
97.5 F 75 16 112/49 98
07/20/25 10:53 07/20/25 11:22 07/20/25 11:22 07/20/25 09:03 07/20/25 11:22
Vital Signs
Temp Pulse Resp BP Pulse Ox
97.5 F 75 16 112/49 98
07/20/25 10:53 07/20/25 11:22 07/20/25 11:22 07/20/25 09:03 07/20/25 11:22
Intake & Output
07/18/25 07/19/25 07/20/25 07/21/25
07:59 07:59 07:59 07:59
Intake Total 648 / 648 960 / 960
Output Total 1825 / 1825 500 / 500 600 / 600
Balance -1177 / -1177 -500 / -500 360 / 360
Physical Exam
Physical Exam
GEN: No distress, awake, alert, oriented x3. Chronically ill-appearing, frail. On supplemental O2.
HEENT: supple, anicteric, mmm, eomi
LUNGS: CTA B/L, no wheezes
CV: Irreg, S1/S2, 1/6 syst LSB
ABD: soft, BS+, NT/ND
EXT: No cyanosis, clubbing. 2+ edema of B/L LE with chronic discoloration noted
NEURO: Gross non-focal
SKIN: Warm, pink, dry. No rash
[2025-07-20] MEDS: MANNITOL 25% 12.5 GRAMS IV ×2 (12:41→14:25)
[2025-07-20] MEDS: FLEXBUMIN 25% FOR HEMODIALYSIS 12.5 GRAMS IV ×2 (12:41→15:00)
[2025-07-20 12:54] LABS: Glucose - Point of Care 167 mg/dl (70-99)
--- NOTE | 2025-07-20 15:16 | W.PN.NEPH.HD ---
Assessment
-
pt seen during HD
vitals stable, SBP in 90s with high dose midodrine
CVC functions fine
UF as tolerates and wean O2 as able
reviewed with pt about possibility of long term HD
he wants to discuss with family
if plan to cont HD likely change to tunneled catheter next week and HD unit placement
Will review with him tomorrow
Progress Note - Hemodialysis
-
Date of Service: July 20, 2025
Duration: 30 minutes and 3 hours
Potassium Bath: 3
Calcium Bath: 2.5
Opti-Dialyzer: 160
Ultrafiltration: Other (1.5-2kg)
Blood Flow: 400
Dialysate Flow: 600
Heparin: no
EPO: no
[2025-07-20 15:45] LABS: Glucose - Point of Care 163 mg/dl (70-99)
[2025-07-20] MEDS: NOVOLOG FLEXPEN-LOW RESISTANCE 1 UNITS SC (15:59)
--- NOTE | 2025-07-20 16:00 | PTCARENOTE ---
Hemodialysis complete. VSS. Tolerated HD well. 2L/2kg removed per HD RN. Patient set up with dominique HOB up 90 degrees.
--- NOTE | 2025-07-20 17:28 | PTCARENOTE ---
Report given verbally to RN assuming careCandis. Bedside rounds complete. Questions answered.
--- NOTE | 2025-07-20 18:20 | W.PN.UPDATE ---
Update Note
Progress Note Update
met family at bedside during 2nd visit
daughter and son present, left just before
per family would want to cont HD moving forward but they are aware of soft Bps and requiring midodrine
reviewed that he is very deconditioned and looks frail -has long way to recover
family understands hoping that he will tolerated HD moving forward
he will likely need rehab at d/c with HD unit placement
next HD wednesday
[2025-07-20 21:14] LABS: Glucose - Point of Care 310 mg/dl (70-99)
[2025-07-20] MEDS: DESYREL 25 MG PO (21:18)
[2025-07-20] MEDS: LANTUS 0.07 UNITS SC (21:18)
[2025-07-20] MEDS: LIPITOR 80 MG PO (21:19)
[2025-07-21] VITALS (8 sets, daily range): BP systolic 97–127; BP diastolic 47–81; O2SAT 97; BMI 23.6
[2025-07-21 00:47] LABS: Glucose - Point of Care 218 mg/dl (70-99)
--- NOTE | 2025-07-21 01:29 | PTCARENOTE ---
Pt. V-paced with PVC's on the monitor, VSS. Maintained on 4L O2 with pulse ox mid to high 90's, SAINI assessed, lungs diminished. Pt. forgetful and disoriented to time, reorients without difficulty. Can be impulsive - attempts to jump OOB without
assist, bed alarm on. HS blood sugar 310 @ 2113 (pt. just ate applesauce) - Lantus given and pt. rechecked at 0046 with results of 218. Currently resting quietly.
[2025-07-21 04:13] LABS: Hematocrit 27.6 % (39.0-52.0); Hemoglobin 8.7 g/dL (13.0-18.0); Mean Corp Hgb Conc. 31.5 g/dL (33.0-37.0); Mean Corpuscular Volume 97.2 fL (80.0-94.0); Nucleated Red Blood Cells % 0 % (-); Platelet Count 120 10^3/uL (130-400); Red Cell Dist. Width 14.0 % (11.5-14.5)
[2025-07-21 04:25] LABS: Blood Urea Nitrogen 26 mg/dl (9-20); Carbon Dioxide 30 mmol/L (22-30); Estimated Creatinine Clearance 31 ml/min; Glucose 143 mg/dl (70-99); Sodium 131 mmol/L (135-145); eGFR 40.50
[2025-07-21 04:34] LABS: Calcium 8.8 mg/dl (8.4-10.2); Chloride 94 mmol/L (98-107); Potassium 3.4 mmol/L (3.5-5.1)
[2025-07-21 07:39] LABS: Glucose - Point of Care 126 mg/dl (70-99)
[2025-07-21] MEDS: DUONEB 3 ML INH ×4 (07:41→19:56)
[2025-07-21] MEDS: NOVOLOG FLEXPEN-LOW RESISTANCE SC (07:44)
[2025-07-21] MEDS: ELIQUIS 5 MG PO ×2 (09:18→19:59)
[2025-07-21] MEDS: TOPROL XL 12.5 MG PO (09:19)
[2025-07-21] MEDS: PROTONIX 40 MG PO (09:19)
[2025-07-21] MEDS: ZYLOPRIM 100 MG PO (09:19)
[2025-07-21] MEDS: TRUSOPT 2% OPHTHALMIC SOLUTION 1 DROP BOTH EYES ×2 (09:20→19:59)
--- NOTE | 2025-07-21 09:39 | W.PN.HOSP.TC ---
Today's Communication/Plan
-
- wants to be contacted first regarding medical decisions as patient is getting overwhelmed.
Assessment / Plan
Assessment / Plan
Physical Exam
-
General: No Apparent Distress, chronically ill looking
HEENT: Normocephalic and Atraumatic
Respiratory: Negative Wheezes
Cardiac: Irregular Rhythm
GI: Soft
MSK: No cyanosis or peripheral edema
Neuro: AO to self and surroundings, followed simple commands
Psych: Calm
Assessment/ Plan:
# Acute on chronic hypoxic respiratory failure due to acute cardiogenic pulmonary edema/ pleural effusion, acute COPD exacerbation ( COPD-FEV1 1.7 L- -70%, DLCO 38% )
- baseline 2L, currently 6-7L -
R pleural effusion s/p thoracentesis 07/11/25
Patient had worsening hypoxia with hypotension 07/19 during hemodialysis with respiratory distress. He has been getting a total of 20 mg of midodrine prior to dialysis.
Patient denies sob, seems less O2 requirement now
Started on IV steroid
Nebulizer ATC
c/w HD as tolerated.
# Code status
-This plan discussed with patient & at bedside, both agreed. Discussed CODE STATUS , now DNR/ DNI. She reported that patient would not want to be on life support, no intubation or chest compressions. also wanted to be contacted first
regarding medical decisions as patient was getting overwhelmed.
Acute on Chronic HFrEF with progressive JAY
- Echo 05/21/25: EF of 25 to 30% status post TAVR
- s/p RHC with elevated pressures
- s/p IV Lasix + Metolazone course
- Started on Bumex gtt but no improvement with rising metabolic alkalosis
- Started on HD 07/18
- GDMT: BB. CKD precludes BRITTANY/ARB/ARNI
- salt/fluid restrictions
- repeat limited Echo 07/12: stable from prior but EF remains low 25-30%
nonischemic myocardial injury in setting of acute CHF and CKD
- trops relatively flat around .07; stop trending
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
- patient/family accepted HD risk.
Started on HD 07/18, given Midodrine for pressure support
# TME , some confusion noted, likely due to rising BUN
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
Hx of acute Left frontoparietal 05/2025.
Bilateral pleural effusions
- R>L on CXR
- s/p R thoracentesis 07/11 with 1.4 L removed
Paroxysmal A-fib
- continue BB
Resumed Eliquis.
#Type 2 diabetes mellitus
- continue home dose Lantus, lowered the dose after staring HD to avoid hypoglycemia
- continue low-dose SSI
#Orthostatic hypotension
- continue home midodrine
Hyperlipidemia
- continue atorvastatin
#Anemia, Chronic, macrocytic
- baseline between 8-9s
Gout
- continue allopurinol
DVT ppx: Eliquis
Code: Full
Total time spent to see the patient, examine the patient, review data and lab results, discuss treatment plan with patient, nursing staff around 55 minutes
Anticipated Discharge: > 48 hours
Subjective/Interval History
-
Date of Service: July 21, 2025
No complaints
Denies chest pain or sob
Objective Data
-
Labs:
Laboratory Results
07/21/25
03:35
WBC 7.7
Hgb 8.7 L
Hct 27.6 L
Plt Count 120 L
Sodium 131 L
Potassium 3.4 L
Chloride 94 L
Carbon Dioxide 30
BUN 26 H
Creatinine 1.7 H
Glucose 143 H
Calcium 8.8
Vital Signs:
Vital Signs
Temp Pulse Resp BP Pulse Ox
97.4 F 75 18 99/47 99
07/21/25 06:52 07/21/25 07:43 07/21/25 07:43 07/21/25 06:51 07/21/25 07:43
I&O
07/20/25 07/21/25 07/22/25
06:59 06:59 06:59
Intake Total 960 / 960 120 / 120
Output Total 600 / 600 150 / 150
Balance 360 / 360 -30 / -30
[2025-07-21] MEDS: SOLU-MEDROL PF 40 MG IV (11:05)
--- NOTE | 2025-07-21 11:54 | W.PN.CARDCBS ---
Today's Communication / Plan
-
PT/OT efforts over the weekend
Wean O2 as able
Impression / Plan
-
.
Primary Shipping Clerk/Admin: Dr. Sutton
Primary Die Casting Machine Maintainer: Dr. Yates
Impression:
Presentation with LE edema, SOB
Acute on chronic HFrEF
B/L pleural effusions/status post right thoracentesis
JAY on CKD, suspected cardiorenal syndrome
Elevated trop, suspected nonischemic myocardial injury
Hypomagnesemia
s/p R thora 06/20/25
Chronic respiratory insufficiency, on 2 L nasal cannula continuous
Left frontoparietal stroke 05/2025
Admission for acute HFrEF, JAY leading to new HD and TAVR 04/18/2025 until 05/16/2025
CKD, required temporary HD 04/2025 admission, with subsequent improvement in creatinine and therefore HD stopped
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
CAD
s/p CABG with NAVAS to LAD, free radial to ramus, SVG to OM and SVG to PDA 2001
s/p cardiac cath with patent NAVAS to LAD, widely patent free radial to ramus, 100% occluded SVG to OM and 50 to 55% mid stenosis of the SVG to the PDA to be stable 03/15/2025
ICM EF 25-30%, post TAVR
carotid disease s/p left CEA in 2012
s/p Medtronic single chamber ICD 2017
Permanent Afib
Chronic Eliquis OAC
Orthostatic hypotension on chronic midodrine
DM 2
Gout
Former smoker, quit 03/2025
ECHO 12/03/22: EF 50%, mild LVH, stage III diastolic dysfunction, mild MR, severe with peak/mean gradients 54/28 mmHg, KAELYN 0.8 cm�, trace AR, mild TR, PAP 64 mmHg, mild dilation of aorta measuring 4.0 cm
Echo 10/09/2024: EF 35 to 40%, moderate eccentric MR, severe peak/mean 60/34 mmHg and KAELYN 0.8 cm sq, mild aortic insufficiency, moderate TR with PAP 64 mmHg
Echo 03/12/2025: EF 31%, global hypokinesis, moderate MR, severe peak/mean 41/22 mmHg and KAELYN 0.7 cm sq, mild aortic regurgitation, moderate to severe TR with PAP 72 mmHg
Echo 05/11/2025: s/p TAVR with #29 Donovan MARIA LUISA 3 aortic valve prosthesis with peak/mean 6/3 mmHg, mild MR, moderate to severe TR with PAP 60 mmHg
Echo 05/21/2025: EF 25-30%, global hypokinesis basal inferior akinesis, TAVR with mean aortic valve gradient of 6, mildly dilated left atrium, mild mitral regurgitation, mild TR, unchanged from prior
Echo July 11, 2025: Limited study. Normal ventricular chamber size with severely reduced left ventricular systolic function ejection fraction 25 to 30% with global hypokinesis and basilar inferior akinesis. ICD wire seen in the right heart.
Well-seated TAVR # 29 mm with mean gradient 6 mmHg. No aortic regurgitation.. Mild to moderate tricuspid regurgitation pulmonary artery pressure 61 mmHg. Compared to a previous full study echo from May 2025, tricuspid regurgitation is slightly
less, findings are otherwise similar.
Plan:
Recurrent acute on chronic HFrEF/cardiorenal syndrome on new dialysis this admission
-Tolerating dialysis with nontunneled dialysis catheter, initiated 07/18
- Tolerating dialysis with plan for more dialysis on Wednesday.
-Monitor renal function and electrolytes with dialysis. Creatinine improving, currently 1.7.
- Continue compression stockings
- GDMT has been limited due to to hypotension and chronic renal insufficiency. Remains on midodrine.
-Stable coronary anatomy by catheterization 03/15/2025
-Wean O2 as able
-Appreciate nephrology input
History of transfemoral 29 mm Donovan Maria Luisa S3 TAVR 05/11/2025
- 2D echocardiogram 07/11/2025 found TAVR well-seated with mean transaortic gradient 6 mmHg and no aortic root insufficient
- He has known permanent atrial fibrillation, which is rate controlled on review of telemetry with frequent ectopy including PVCs, couplets.
- Continue eliquis
- Continue medical therapy of non-NH troponin. no CP
- Marked deconditioning -continue PT/OT efforts and nutritional optimization
CODE STATUS: DNR
Progress Note - Shipping Clerk/Admin
Subjective
Date of Service: July 21, 2025
Seen and examined after working with PT this morning. Complain of fatigue but no other complaints. Lying supine.
Objective
Labs:
07/21/25 03:35
07/21/25 03:35
Labs
Hgb 8.7 g/dL (13.0-18.0) L 07/21/25 03:35
Hct 27.6 % (39.0-52.0) L 07/21/25 03:35
Plt Count 120 10^3/uL (130-400) L 07/21/25 03:35
APTT Cancelled 07/16/25 13:00
Sodium 131 mmol/L (135-145) L 07/21/25 03:35
Potassium 3.4 mmol/L (3.5-5.1) L 07/21/25 03:35
BUN 26 mg/dl (9-20) H 07/21/25 03:35
Creatinine 1.7 mg/dL (0.7-1.3) H 07/21/25 03:35
Glucose 143 mg/dl (70-99) H 07/21/25 03:35
Vital Signs and I&O:
Vital Signs
Temp Pulse Resp BP Pulse Ox
97.6 F 75 18 99/47 100
07/21/25 11:03 07/21/25 11:28 07/21/25 11:28 07/21/25 06:51 07/21/25 11:28
Vital Signs
Temp Pulse Resp BP Pulse Ox
97.6 F 75 18 99/47 100
07/21/25 11:03 07/21/25 11:28 07/21/25 11:28 07/21/25 06:51 07/21/25 11:28
Intake & Output
07/19/25 07/20/25 07/21/25 07/22/25
06:59 06:59 06:59 06:59
Intake Total 960 / 960 120 / 120
Output Total 1100 / 1100 600 / 600 150 / 150
Balance -1100 / -1100 360 / 360 -30 / -30
Physical Exam
Physical Exam
GEN: No distress, awake, alert, oriented x3. Chronically ill-appearing, frail. On supplemental O2, 4 L.
HEENT: mm dry
LUNGS: CTA B/L, no wheezes, poor effort
CV: Irreg, S1/S2, 1/6 syst LSB
ABD: soft, BS+, NT/ND
EXT:No edema of B/L LE; chronic discoloration
[2025-07-21 12:13] LABS: Glucose - Point of Care 200 mg/dl (70-99)
[2025-07-21] MEDS: NOVOLOG FLEXPEN-LOW RESISTANCE 2 UNITS SC (13:44)
--- NOTE | 2025-07-21 15:27 | W.PN.NEPH.PH ---
Today's Communication / Plan
-
no HD
hospice eval per family
Assessment/Plan
-
IMP:
Acute exacerbation of HFrEF
Echo�05/21/2025, patient has an EF of 25 to 30% status post TAVR
bilateral pleural effusions
Status post thoracentesis 07/11 1400
JAY on CKD stage IIIb- cr 1.5-2, Dr Yates
Hypomagnesemia
Paroxysmal A-fib
Elevated troponins
Type 2 diabetes mellitus
Orthostatic hypotension
Hyperlipidemia
Anemia
Gout
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
CAD/CABG x 4 (2001)
Medtronic single-chamber ICD, 2017
Carotid disease -s/p left CEA 2012.
h/o GI bleed 03/2025 , known h/o AVMS
h/o CVA
briefly on HD 05/2025 after TAVR
Plan:
HD initiated for hypervolemia
vol off did not improve resp status or clinical status
BP soft on high dose midodrine
long d/w today in person and she expresses that every time he came to the hospital he is worse clinically
he had multiple admits this year and he made no improvement at all, in last few months he stayed in hospital more than home
previously he struggled on HD
knowing all thinks his QOL is very poor and no expected improvement
more over he would not want to go to [place] which would needed if he stayed on HD
She thinks he is at the end of his life and wanting to keep him comfortable
she will discuss with other family members and cardiology
I do agree with her decision
no dialysis planned for Wednesday
case d/w primary team
high risk encounter
-
-
Date of Service: July 21, 2025
CC / HPI / ROS
-
Chief Complaint:
CKD
History of Present Illness:
CKD/Cr Hd started on 07/18
s/p right thoracentesis 07/11 for 1.4L
BP soft on midodrine
on 4lit of O2
Review of Systems:
wt is down
no pain
lethagic, no n/v
Labs
-
Labs:
WBC 7.7 10^3/uL (4.8-10.8) 07/21/25 03:35
RBC 2.84 10^6/uL (4.70-6.10) L 07/21/25 03:35
Hgb 8.7 g/dL (13.0-18.0) L 07/21/25 03:35
Hct 27.6 % (39.0-52.0) L 07/21/25 03:35
Plt Count 120 10^3/uL (130-400) L 07/21/25 03:35
Sodium 131 mmol/L (135-145) L 07/21/25 03:35
Potassium 3.4 mmol/L (3.5-5.1) L 07/21/25 03:35
Chloride 94 mmol/L (98-107) L 07/21/25 03:35
Carbon Dioxide 30 mmol/L (22-30) 07/21/25 03:35
BUN 26 mg/dl (9-20) H 07/21/25 03:35
Creatinine 1.7 mg/dL (0.7-1.3) H 07/21/25 03:35
eGFR 40.50 07/21/25 03:35
Glucose 143 mg/dl (70-99) H 07/21/25 03:35
Calcium 8.8 mg/dl (8.4-10.2) 07/21/25 03:35
Utb-N-Iqojlpmnboy Pept 31671 pg/ml 07/10/25 08:27
Albumin 2.7 g/dl (3.5-5.0) L 07/11/25 05:34
Physical Exam
-
Vital Signs:
Vital Signs
Temp Pulse Resp BP Pulse Ox
97.9 F 76 18 99/47 100
07/21/25 15:04 07/21/25 15:21 07/21/25 15:21 07/21/25 06:51 07/21/25 15:21
Cardiovascular:: Regular rate and rhythm
Respiratory:: Bilateral: Coarse
Lung Excursion:: Normal
Abdomen:: Nontender and Soft
Extremity Edema:: +2: Bilateral:
Olea Catheter: No
--- NOTE | 2025-07-21 16:40 | PTCARENOTE ---
Assumed care of the pt @ 0700. Pt is AAOx3 confused at times + [place] flat affect. V Paced with PVC's on monitor VSS. Pt is OOB to chair for lunch. everardo well. 1-2 person assist with walker. Oliguric + condom cath. Call moreno within reach bed/ and chair
alarm in use.
--- NOTE | 2025-07-21 16:44 | PTCARENOTE ---
Earlier this shift pt's Neli expressed that she doesn't want him to go through with anymore HD treatments. Dr Loza notified. Nephrology at bedside to matthew. HD is on hold for Wednesday.
[2025-07-21 17:00] LABS: Glucose - Point of Care 290 mg/dl (70-99)
[2025-07-21] MEDS: NOVOLOG FLEXPEN-LOW RESISTANCE 3 UNITS SC (17:48)
[2025-07-21 21:41] LABS: Glucose - Point of Care 357 mg/dl (70-99)
[2025-07-21] MEDS: LIPITOR 80 MG PO (22:32)
[2025-07-21] MEDS: NOVOLOG FLEXPEN 6 UNITS SC (22:33)
[2025-07-21] MEDS: LANTUS 0.07 UNITS SC (22:33)
[2025-07-21] MEDS: DESYREL 25 MG PO (22:36)
--- NOTE | 2025-07-21 23:04 | PTCARENOTE ---
Pt with elevated bs at HS 357. House AQUACULTURE FARMER made aware additional 6 units of NovoLog given in addition to HS Lantus. TRANSONIC ENGINEER on telemetry.
sats high 90's on 2 lit n/c.
[2025-07-22 01:45] VITALS: BMI 23.9
[2025-07-22 02:30] VITALS: BP 119/73
[2025-07-22 02:54] LABS: Hematocrit 27.1 % (39.0-52.0); Hemoglobin 8.6 g/dL (13.0-18.0); Mean Corp Hgb Conc. 31.7 g/dL (33.0-37.0); Mean Corpuscular Volume 95.4 fL (80.0-94.0); Nucleated Red Blood Cells % 0 % (-); Platelet Count 133 10^3/uL (130-400); Red Cell Dist. Width 14.3 % (11.5-14.5)
[2025-07-22 03:11] LABS: Blood Urea Nitrogen 43 mg/dl (9-20); Calcium 8.8 mg/dl (8.4-10.2); Carbon Dioxide 30 mmol/L (22-30); Chloride 92 mmol/L (98-107); Estimated Creatinine Clearance 25 ml/min; Glucose 220 mg/dl (70-99); Potassium 3.8 mmol/L (3.5-5.1); Sodium 127 mmol/L (135-145); eGFR 31.43
--- NOTE | 2025-07-22 03:25 | PTCARENOTE ---
Pt incont of mod size soft stool. barrier cream applied to perineum and new 7x7 foam placed on sacrum. blood sugar in am labs was 220 at 0236 down from 357 with 6 units of NovoLog given at HS.
[2025-07-22 07:19] VITALS: BP 107/77
[2025-07-22] MEDS: DUONEB 3 ML INH ×3 (07:24→15:36)
[2025-07-22 07:50] LABS: Glucose - Point of Care 162 mg/dl (70-99)
[2025-07-22] MEDS: TOPROL XL 12.5 MG PO (08:40)
[2025-07-22] MEDS: PROTONIX 40 MG PO (08:40)
[2025-07-22] MEDS: ELIQUIS 5 MG PO ×2 (08:40→20:56)
[2025-07-22] MEDS: ZYLOPRIM 100 MG PO (08:40)
[2025-07-22] MEDS: SOLU-MEDROL PF 40 MG IV (08:40)
[2025-07-22] MEDS: NOVOLOG FLEXPEN-LOW RESISTANCE 1 UNITS SC (08:41)
[2025-07-22] MEDS: TRUSOPT 2% OPHTHALMIC SOLUTION 1 DROP BOTH EYES ×2 (08:42→20:56)
--- NOTE | 2025-07-22 09:39 | W.PN.HOSP.TC ---
Today's Communication/Plan
-
Increase Lantus
Assessment / Plan
Assessment / Plan
Physical Exam
-
General: No Apparent Distress, chronically ill looking
HEENT: Normocephalic and Atraumatic
Respiratory: Negative Wheezes, mild rhonchi at bases
Cardiac: Irregular Rhythm
GI: Soft
MSK: No cyanosis or peripheral edema
Neuro: AO to self and surroundings, followed simple commands
Psych: Calm
Assessment/ Plan:
# Acute on chronic hypoxic respiratory failure due to acute cardiogenic pulmonary edema/ pleural effusion, acute COPD exacerbation ( COPD-FEV1 1.7 L- -70%, DLCO 38% )
- baseline 2L, currently 2-3 liters
R pleural effusion s/p thoracentesis 07/11/25
Patient had worsening hypoxia with hypotension 07/19 during hemodialysis with respiratory distress. He has been getting a total of 20 mg of midodrine prior to dialysis. Patient does not want hemodialysis
Patient denies sob, seems less O2 requirement now
Started on IV steroid,
Nebulizer ATC
c/w HD as tolerated.
# Code status
-This plan discussed with patient & at bedside, both agreed. Discussed CODE STATUS , now DNR/ DNI. She reported that patient would not want to be on life support, no intubation or chest compressions. also wanted to be contacted first
regarding medical decisions as patient was getting overwhelmed. Pt said he did not want hemodialysis. requested hospice evaluation Wednesday or Wednesday
Acute on Chronic HFrEF with progressive JAY
- Echo 05/21/25: EF of 25 to 30% status post TAVR
- s/p RHC with elevated pressures
- s/p IV Lasix + Metolazone course
- Started on Bumex gtt but no improvement with rising metabolic alkalosis
- Started on HD 07/18
- GDMT: BB. CKD precludes BRITTANY/ARB/ARNI
- salt/fluid restrictions
- repeat limited Echo 07/12: stable from prior but EF remains low 25-30%
nonischemic myocardial injury in setting of acute CHF and CKD
- trops relatively flat around .07; stop trending
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
- patient/family accepted HD risk. But later did not want to continue.
Started on HD 07/18, given Midodrine for pressure support
# TME , some confusion noted, likely due to rising BUN
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
Hx of acute Left frontoparietal 05/2025.
Bilateral pleural effusions
- R>L on CXR
- s/p R thoracentesis 07/11 with 1.4 L removed
Paroxysmal A-fib
- continue BB
Resumed Eliquis.
#Type 2 diabetes mellitus
- continue home dose Lantus, lowered the dose after staring HD to avoid hypoglycemia, now BS up from steroid, will increase Lantus.
- continue low-dose SSI
#Orthostatic hypotension
- continue home midodrine
Hyperlipidemia
- continue atorvastatin
#Anemia, Chronic, macrocytic
- baseline between 8-9s
Gout
- continue allopurinol
DVT ppx: Eliquis
Code: DNR
Total time spent to see the patient, examine the patient, review data and lab results, discuss treatment plan with patient, , nephrology, nursing staff around 55 minutes
Anticipated Discharge: > 48 hours
Subjective/Interval History
-
Date of Service: July 22, 2025
No chest pain
feels sob/ cough is better
No abdominal pain
He does not wants HD
Objective Data
-
Labs:
Laboratory Results
07/22/25
02:36
WBC 7.3
Hgb 8.6 L
Hct 27.1 L
Plt Count 133
Sodium 127 L
Potassium 3.8
Chloride 92 L
Carbon Dioxide 30
BUN 43 H
Creatinine 2.1 H
Glucose 220 H
Calcium 8.8
Vital Signs:
Vital Signs
Temp Pulse Resp BP Pulse Ox
97.6 F 76 18 119/73 94
07/22/25 07:18 07/22/25 07:26 07/22/25 07:26 07/22/25 02:30 07/22/25 07:26
I&O
07/21/25 07/22/25 07/23/25
06:59 06:59 06:59
Intake Total 120 / 120
Output Total 150 / 150 275 / 275
Balance -30 / -30 -275 / -275
[2025-07-22 11:31] VITALS: BP 117/81
[2025-07-22 11:31] LABS: Glucose - Point of Care 227 mg/dl (70-99)
[2025-07-22] MEDS: NOVOLOG FLEXPEN-LOW RESISTANCE 2 UNITS SC (13:04)
--- NOTE | 2025-07-22 13:41 | W.PN.NEPH.PH ---
Today's Communication / Plan
-
pending hospice eval
Assessment/Plan
-
IMP:
Acute exacerbation of HFrEF
Echo�05/21/2025, patient has an EF of 25 to 30% status post TAVR
bilateral pleural effusions
Status post thoracentesis 07/11 1400
JAY on CKD stage IIIb- cr 1.5-2, Dr Yates
Hypomagnesemia
Paroxysmal A-fib
Elevated troponins
Type 2 diabetes mellitus
Orthostatic hypotension
Hyperlipidemia
Anemia
Gout
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
CAD/CABG x 4 (2001)
Medtronic single-chamber ICD, 2017
Carotid disease -s/p left CEA 2012.
h/o GI bleed 03/2025 , known h/o AVMS
h/o CVA
briefly on HD 05/2025 after TAVR
Plan:
HD initiated for hypervolemia
O2 requirement down with vol off but did not improve clinical status
BP soft on high dose midodrine
long d/w on 07/21 in person and she expresses that every time he came to the hospital he is worse clinically
he had multiple admits this year and he made no improvement at all, in last few months he stayed in hospital more than home
previously he struggled on HD
knowing all thinks his QOL is very poor and no expected improvement
more over he would not want to go to [place] which would needed if he stayed on HD
She thinks he is at the end of his life and wanting to keep him comfortable
she will discuss with other family members and cardiology
I do agree with her decision
no dialysis planned for Wednesday
case d/w primary team and cards
-
-
Date of Service: July 22, 2025
CC / HPI / ROS
-
Chief Complaint:
CKD
History of Present Illness:
CKD/Cr Hd started on 07/18, last one on 07/20
BP soft on midodrine
on 2lit of O2
Review of Systems:
wt is down
no pain
no n/v , poor appetite
Labs
-
Labs:
WBC 7.3 10^3/uL (4.8-10.8) 07/22/25 02:36
RBC 2.84 10^6/uL (4.70-6.10) L 07/22/25 02:36
Hgb 8.6 g/dL (13.0-18.0) L 07/22/25 02:36
Hct 27.1 % (39.0-52.0) L 07/22/25 02:36
Plt Count 133 10^3/uL (130-400) 07/22/25 02:36
Sodium 127 mmol/L (135-145) L 07/22/25 02:36
Potassium 3.8 mmol/L (3.5-5.1) 07/22/25 02:36
Chloride 92 mmol/L (98-107) L 07/22/25 02:36
Carbon Dioxide 30 mmol/L (22-30) 07/22/25 02:36
BUN 43 mg/dl (9-20) H 07/22/25 02:36
Creatinine 2.1 mg/dL (0.7-1.3) H 07/22/25 02:36
eGFR 31.43 07/22/25 02:36
Glucose 220 mg/dl (70-99) H 07/22/25 02:36
Calcium 8.8 mg/dl (8.4-10.2) 07/22/25 02:36
Nhk-Z-Nhcatffvxnj Pept 94524 pg/ml 07/10/25 08:27
Albumin 2.7 g/dl (3.5-5.0) L 07/11/25 05:34
Physical Exam
-
Vital Signs:
Vital Signs
Temp Pulse Resp BP Pulse Ox
97.8 F 75 18 107/77 95
07/22/25 11:30 07/22/25 11:40 07/22/25 11:40 07/22/25 07:19 07/22/25 11:40
Cardiovascular:: Regular rate and rhythm
Respiratory:: Bilateral: CTA (decreased) and Bilateral: R[place]
Lung Excursion:: Normal
Abdomen:: Nontender and Soft
Extremity Edema:: +2: Bilateral:
Olea Catheter: No
[2025-07-22 15:47] VITALS: BP 128/58
--- NOTE | 2025-07-22 16:23 | PTCARENOTE ---
Assumed care of the pt @ 0700. Pt is AAOx3 sleeping on and off throughout the day V paced on the monitor VSS. NC 2 liters sats 96% lungs diminished. Pt is 1 person assist with walker out of bed to chair for meals. everardo well. Call moreno within reach
chair and bed alarm in use.
[2025-07-22 16:50] LABS: Glucose - Point of Care 354 mg/dl (70-99)
[2025-07-22] MEDS: NOVOLOG FLEXPEN-LOW RESISTANCE 5 UNITS SC (16:55)
[2025-07-22] MEDS: DUONEB INH (17:57)
[2025-07-22 19:42] VITALS: BP 138/60
--- NOTE | 2025-07-22 21:00 | PTCARENOTE ---
Assumed care at 1900. Patient out of bed in chair. Patient alert and oriented x3. Hard of hearing. Patient denies any pain or shortness of breath. On 2L nasal cannula. CHG bath completed. Linen changed. Patient returned to bed. Bed alarm on and
audible for safety. Call moreno within reach.
[2025-07-22 22:18] VITALS: BP 130/68
[2025-07-22 22:23] LABS: Glucose - Point of Care 356 mg/dl (70-99)
[2025-07-22] MEDS: LIPITOR 80 MG PO (22:52)
[2025-07-22] MEDS: DESYREL 25 MG PO (22:52)
[2025-07-22] MEDS: LANTUS 0.15 UNITS SC (22:53)
[2025-07-22] MEDS: NOVOLOG FLEXPEN 10 UNITS SC (23:02)
[2025-07-23 04:28] VITALS: BP 131/73
--- NOTE | 2025-07-23 05:26 | PTCARENOTE ---
Patient resting comfortably between care. Care clustered. Patient denies any pain. Remains on 2L nasal cannula. External catheter in place for incontinence. Patient able to turn and reposition self in bed. HS blood sugar noted to be elevated at 356.
Lisha Mercado [employer]LE IAM CONSULTANT made aware. Additional dose of Novolog ordered and given. BP at 22:18 130/68. PM Midodrine dose held per Lisha Mercado [employer]AM CONSULTANT. Call moreno and personal belongings within reach.
[2025-07-23 07:26] VITALS: BP 120/55
[2025-07-23] MEDS: ZYLOPRIM 100 MG PO (07:26)
[2025-07-23] MEDS: ELIQUIS 5 MG PO (07:26)
[2025-07-23] MEDS: TOPROL XL 12.5 MG PO (07:26)
[2025-07-23] MEDS: PROTONIX 40 MG PO (07:26)
[2025-07-23] MEDS: SOLU-MEDROL PF 40 MG IV (07:27)
[2025-07-23] MEDS: TRUSOPT 2% OPHTHALMIC SOLUTION 1 DROP BOTH EYES (07:27)
[2025-07-23 07:39] VITALS: BP 127/63
[2025-07-23] MEDS: DUONEB 3 ML INH (07:41)
--- NOTE | 2025-07-23 08:06 | PTCARENOTE ---
pt aaox3. states no pain or sob. on 2lnc. breath sounds diminished.
[2025-07-23 08:07] LABS: Glucose - Point of Care 153 mg/dl (70-99)
[2025-07-23 08:52] VITALS: BMI 24.1
--- NOTE | 2025-07-23 09:50 | HOSPNOTE ---
Spoke with spouse and explained hospice and the philosophy. The plan is to admit inpatient hospice. Spouse will be coming in at 11 to sign consents. Admissions was called. Attending and Cardiology and CM aware of plan.
[2025-07-23] MEDS: NOVOLOG FLEXPEN-LOW RESISTANCE 1 UNITS SC (09:53)
--- NOTE | 2025-07-23 10:08 | CM ---
inpt hospice referral faxed as requested by pt/family.
--- NOTE | 2025-07-23 10:18 | W.PN.NEPH.PH ---
Today's Communication / Plan
-
Sign off, no more dialysis
Patient for hospice
Assessment/Plan
-
IMP:
Acute exacerbation of HFrEF
Echo�05/21/2025, patient has an EF of 25 to 30% status post TAVR
bilateral pleural effusions
Status post thoracentesis 07/11 1400
JAY on CKD stage IIIb- cr 1.5-2, Dr Yates
Hypomagnesemia
Paroxysmal A-fib
Elevated troponins
Type 2 diabetes mellitus
Orthostatic hypotension
Hyperlipidemia
Anemia
Gout
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
CAD/CABG x 4 (2001)
Medtronic single-chamber ICD, 2018
Carotid disease -s/p left CEA 2012.
h/o GI bleed 03/2025 , known h/o AVMS
h/o CVA
briefly on HD 05/2025 after TAVR
Plan:
HD initiated for hypervolemia
O2 requirement down with vol off but did not improve clinical status
BP soft on high dose midodrine
long d/w on 07/21 in person and she expresses that every time he came to the hospital he is worse clinically
he had multiple admits this year and he made no improvement at all, in last few months he stayed in hospital more than home
previously he struggled on HD
knowing all thinks his QOL is very poor and no expected improvement
more over he would not want to go to [place] which would needed if he stayed on HD
She thinks he is at the end of his life and wanting to keep him comfortable
she will discuss with other family members and cardiology
I do agree with her decision
no dialysis planned for Wednesday
case d/w primary team
Patient for hospice we will sign off
-
-
Date of Service: July 23, 2025
CC / HPI / ROS
-
Chief Complaint:
CKD
History of Present Illness:
CKD/Cr Hd started on 07/18, last one on 07/20
BP soft on midodrine
on 2lit of O2
Review of Systems:
wt is down
no pain
no n/v , poor appetite
Labs
-
Labs:
WBC 7.3 10^3/uL (4.8-10.8) 07/22/25 02:36
RBC 2.84 10^6/uL (4.70-6.10) L 07/22/25 02:36
Hgb 8.6 g/dL (13.0-18.0) L 07/22/25 02:36
Hct 27.1 % (39.0-52.0) L 07/22/25 02:36
Plt Count 133 10^3/uL (130-400) 07/22/25 02:36
Sodium 127 mmol/L (135-145) L 07/22/25 02:36
Potassium 3.8 mmol/L (3.5-5.1) 07/22/25 02:36
Chloride 92 mmol/L (98-107) L 07/22/25 02:36
Carbon Dioxide 30 mmol/L (22-30) 07/22/25 02:36
BUN 43 mg/dl (9-20) H 07/22/25 02:36
Creatinine 2.1 mg/dL (0.7-1.3) H 07/22/25 02:36
eGFR 31.43 07/22/25 02:36
Glucose 220 mg/dl (70-99) H 07/22/25 02:36
Calcium 8.8 mg/dl (8.4-10.2) 07/22/25 02:36
Oha-F-Jysbjkituzt Pept 80575 pg/ml 07/10/25 08:27
Albumin 2.7 g/dl (3.5-5.0) L 07/11/25 05:34
Physical Exam
-
Vital Signs:
Vital Signs
Temp Pulse Resp BP Pulse Ox
97.4 F 76 16 120/55 97
07/23/25 07:40 07/23/25 07:44 07/23/25 07:44 07/23/25 07:26 07/23/25 07:44
--- NOTE | 2025-07-23 10:45 | W.PN.HOSP.TC ---
Today's Communication/Plan
-
IP hospice transition today
Assessment / Plan
Assessment / Plan
Assessment/ Plan:
Acute on chronic hypoxic respiratory failure due to acute cardiogenic pulmonary edema/ pleural effusion, acute COPD exacerbation ( COPD-FEV1 1.7 L- -70%, DLCO 38% )
- baseline 2L, currently 2-3 liters
R pleural effusion s/p thoracentesis 07/11/25
Patient had worsening hypoxia with hypotension 07/19 during hemodialysis with respiratory distress. He has been getting a total of 20 mg of midodrine prior to dialysis. Patient does not want hemodialysis
Patient denies sob, seems less O2 requirement now
Started on IV steroid,
Nebulizer ATC
DC HD as family/pt opting for inpatient hospice today
Acute on Chronic HFrEF with progressive JAY
- Echo 05/21/25: EF of 25 to 30% status post TAVR
- s/p RHC with elevated pressures
- s/p IV Lasix + Metolazone course
- Started on Bumex gtt but no improvement with rising metabolic alkalosis
- Started on HD 07/18
- GDMT: BB. CKD precludes BRITTANY/ARB/ARNI
- salt/fluid restrictions
- repeat limited Echo 07/12: stable from prior but EF remains low 25-30%
nonischemic myocardial injury in setting of acute CHF and CKD
- trops relatively flat around .07; stop trending
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
- patient/family accepted HD risk. But later did not want to continue.
Started on HD 07/18, given Midodrine for pressure support
# TME , some confusion noted, likely due to rising BUN
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
Hx of acute Left frontoparietal 05/2025.
Bilateral pleural effusions
- R>L on CXR
- s/p R thoracentesis 07/11 with 1.4 L removed
Paroxysmal A-fib
- continue BB
Resumed Eliquis.
#Type 2 diabetes mellitus
- continue home dose Lantus, lowered the dose after staring HD to avoid hypoglycemia, now BS up from steroid, will increase Lantus.
- continue low-dose SSI
#Orthostatic hypotension
- continue home midodrine
Hyperlipidemia
- continue atorvastatin
#Anemia, Chronic, macrocytic
- baseline between 8-9s
Gout
- continue allopurinol
DVT ppx: Eliquis
Code: DNR/DNI
Dispo: IP hospice transition today
Anticipated Discharge: Today
Subjective/Interval History
-
Date of Service: July 23, 2025
family and patient agree to inpatient hospice transition
IV HD catheter to be removed
Objective Data
-
Vital Signs:
Vital Signs
Temp Pulse Resp BP Pulse Ox
97.4 F 76 16 120/55 97
07/23/25 07:40 07/23/25 07:44 07/23/25 07:44 07/23/25 07:26 07/23/25 07:44
I&O
07/22/25 07/23/25 07/24/25
06:59 06:59 06:59
Output Total 275 / 275 480 / 480
Balance -275 / -275 -480 / -480
Physical Exam
-
General: Respiratory Distress (mild)
HEENT: Normocephalic and Atraumatic
Respiratory: Crackles
Cardiac: Regular Rhythm and S1/S2
Musculoskeletal: Edema, Right Lower Extrem and Edema, Left Lower Extrem
Neuro: AO x 3
Data Reviewed
-
Total Time Spent with Patient (in minutes): 44
Labs: Labs Reviewed by me
--- NOTE | 2025-07-23 10:47 | W.DCSUMMARY ---
Discharge Summary
Discharge Data
Date of Admission: 07/10/25
Date of Discharge: 07/23/25
-
Pending Results: No
Hospital Course
79 y/o M past medical history of COPD, hypertension, hyperlipidemia, IDDM, HFrEF, A-fib on Eliquis, CVA, CKD stage IIIb, gastric AVMs, CAD s/p CABG/stents, presented to the ER 07/10 for evaluation of shortness of breath. Patient was found to have
acute on chronic hypoxic respiratory failure and progressive JAY in setting of cardiorenal syndrome. He was started on IV diuretics and periodic metolazone. He underwent RHC on 07/16 showing elevated filling pressures. Patient had azotemia from
diuretics requiring transition to HD. Of note, patient was on HD previously. Patient was unable to tolerate dialysis (hypotension, confusion) and opted for comfort measures. He was transitioned to inpatient hospice on 07/23.
Discharge Plan
-
Patient Disposition: Hospice - Inpatient DH
Discharge Orders:
Discharge Patient (As Directed); Ordered 07/23/25
Ordered By: Yani Howell
Discharge Date and Time
Print Language: EMIRATI
--- NOTE | 2025-07-23 11:01 | W.PN.CARDCBS ---
Today's Communication / Plan
-
For inpatient hospice
Sign off
Impression / Plan
-
.
Primary Manager Metal: Dr. Sutton
Primary Invertebrate Paleontologist: Dr. Yates
Impression:
Presentation with LE edema, SOB
Acute on chronic HFrEF
B/L pleural effusions/status post right thoracentesis
JAY on CKD, suspected cardiorenal syndrome
Elevated trop, suspected nonischemic myocardial injury
Hypomagnesemia
s/p R thora 06/20/25
Chronic respiratory insufficiency, on 2 L nasal cannula continuous
Left frontoparietal stroke 05/2025
Admission for acute HFrEF, JAY leading to new HD and TAVR 04/18/2025 until 05/16/2025
CKD, required temporary HD 04/2025 admission, with subsequent improvement in creatinine and therefore HD stopped
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
CAD
s/p CABG with NAVAS to LAD, free radial to ramus, SVG to OM and SVG to PDA 2001
s/p cardiac cath with patent NAVAS to LAD, widely patent free radial to ramus, 100% occluded SVG to OM and 50 to 55% mid stenosis of the SVG to the PDA to be stable 03/15/2025
ICM EF 25-30%, post TAVR
carotid disease s/p left CEA in 2012
s/p Medtronic single chamber ICD 2017
Permanent Afib
Chronic Eliquis OAC
Orthostatic hypotension on chronic midodrine
DM 2
Gout
Former smoker, quit 03/2025
DNR
ECHO 12/03/22: EF 50%, mild LVH, stage III diastolic dysfunction, mild MR, severe with peak/mean gradients 54/28 mmHg, KAELYN 0.8 cm�, trace AR, mild TR, PAP 64 mmHg, mild dilation of aorta measuring 4.0 cm
Echo 10/09/2024: EF 35 to 40%, moderate eccentric MR, severe peak/mean 60/34 mmHg and KAELYN 0.8 cm sq, mild aortic insufficiency, moderate TR with PAP 64 mmHg
Echo 03/12/2025: EF 31%, global hypokinesis, moderate MR, severe peak/mean 41/22 mmHg and KAELYN 0.7 cm sq, mild aortic regurgitation, moderate to severe TR with PAP 72 mmHg
Echo 05/11/2025: s/p TAVR with #29 Donovan BLAISE 3 aortic valve prosthesis with peak/mean 6/3 mmHg, mild MR, moderate to severe TR with PAP 60 mmHg
Echo 05/21/2025: EF 25-30%, global hypokinesis basal inferior akinesis, TAVR with mean aortic valve gradient of 6, mildly dilated left atrium, mild mitral regurgitation, mild TR, unchanged from prior
Echo July 11, 2025: Limited study. Normal ventricular chamber size with severely reduced left ventricular systolic function ejection fraction 25 to 30% with global hypokinesis and basilar inferior akinesis. ICD wire seen in the right heart.
Well-seated TAVR # 29 mm with mean gradient 6 mmHg. No aortic regurgitation.. Mild to moderate tricuspid regurgitation pulmonary artery pressure 61 mmHg. Compared to a previous full study echo from May 2025, tricuspid regurgitation is slightly
less, findings are otherwise similar.
Plan:
I had a long discussion with Gui and called his Neli.
Gui does not feel he can do dialysis anymore.
He and his wish to consider inpatient hospice and I agree
Discussed with primary service and hospice coordinators
Will sign off, call with questions
Progress Note - Manager Metal
Subjective
Date of Service: July 23, 2025
No complaints
Objective
Labs:
07/22/25 02:36
07/22/25 02:36
Labs
Hgb 8.6 g/dL (13.0-18.0) L 07/22/25 02:36
Hct 27.1 % (39.0-52.0) L 07/22/25 02:36
Plt Count 133 10^3/uL (130-400) 07/22/25 02:36
APTT Cancelled 07/16/25 13:00
Sodium 127 mmol/L (135-145) L 07/22/25 02:36
Potassium 3.8 mmol/L (3.5-5.1) 07/22/25 02:36
BUN 43 mg/dl (9-20) H 07/22/25 02:36
Creatinine 2.1 mg/dL (0.7-1.3) H 07/22/25 02:36
Glucose 220 mg/dl (70-99) H 07/22/25 02:36
Vital Signs and I&O:
Vital Signs
Temp Pulse Resp BP Pulse Ox
97.4 F 76 16 120/55 97
07/23/25 07:40 07/23/25 07:44 07/23/25 07:44 07/23/25 07:26 07/23/25 07:44
Vital Signs
Temp Pulse Resp BP Pulse Ox
97.4 F 76 16 120/55 97
07/23/25 07:40 07/23/25 07:44 07/23/25 07:44 07/23/25 07:26 07/23/25 07:44
Intake & Output
07/21/25 07/22/25 07/23/25 07/24/25
06:59 06:59 06:59 06:59
Intake Total 120 / 120
Output Total 150 / 150 275 / 275 480 / 480
Balance -30 / -30 -275 / -275 -480 / -480
Physical Exam
Physical Exam
General: Well developed, well nourished in NAD.
Neck: Supple, no JVD, HJR, carotids +2 B/L, no bruits bilaterally.
Heart: Non displaced PMI, RRR, no murmurs, No S3, S4, no rubs.
Lungs: Scattered rhonchi
Extremities: No clubbing, cyanosis or edema bilaterally.
Neuro: Grossly nonfocal, awake, alert and oriented x3.
--- NOTE | 2025-07-24 12:17 | W.HF.CON ---
Heart Failure
- LV Function
Left ventricular function study result: LV Ejection fraction </= 35%
Ejection Fraction Percentage: 25-30
- ARNI
Patient already on ARNI: No
Heart Failure ARNI Contraindication: Comfort Measures Only
- ACEI/ARB
Patient already on ACEI/ARB: No
Heart Failure ACEI/ARB Contraindication: Comfort Measures Only
- Beta Nicko
Patient already on Evidence Based Beta Nicko: No
Heart Failure Evidence Based Beta Nicko: Comfort Measures Only
- Mineralocorticord Receptor Antagonist
Patient already on MRA: No
Heart Failure MRA Contraindication: Comfort Measures Only
- SGLT-2 Inhibitor
Patient already on SGLT-2 Inhibitor: No
Heart Failure SGLT-2 Inhibitor Contraindication: Comfort Measures
- Afib Anticoagulation
Patient already on Anticoagulation for Afib: No
Heart Failure Afib Anticoagulation Contraindication: Comfort Measures Only
- NYHA CHF Classification
NYHA CHF Classification Level: Class IV - Inability to carry out any physical activity
- ACC/AHA Stage
ACC/AHA Stage: Stage D: Advanced Heart Failure
== END 2025-07-23 11:13 | disposition hospice, inpatient (51) | DRG 286 ==
LOC: IVU 12:20
PROVIDERS: Internal Medicine Interventional Cardiology; Internal Medicine Nephrology; Nurse Practitioner Family; Radiology Diagnostic Radiology; Radiology Vascular & Interventional Radiology; Registered Nurse; Student in an Organized Health Care Education/Training Program; ADMITTING PHYSICIAN Internal Medicine; EMERGENCY PHYSICIAN Emergency Medicine; FAMILY PHYSICIAN Family Medicine; OTHER PHYSICIAN Internal Medicine; OTHER PHYSICIAN Internal Medicine Cardiovascular Disease
PROC: 0W993ZZ Drainage of Right Pleural Cavity, Percutaneous Approach (ICD-10-PCS; 2025-07-11)
PROC: 4A023N6 Measurement of Cardiac Sampling and Pressure, Right Heart, Percutaneous Approach (ICD-10-PCS; 2025-07-16)
PROC: 5A1D70Z Performance of Urinary Filtration, Intermittent, Less than 6 Hours Per Day (ICD-10-PCS; 2025-07-18)
PROC: B5181ZA Fluoroscopy of Superior Vena Cava using Low Osmolar Contrast, Guidance (ICD-10-PCS; 2025-07-18)
PROC: 02HV33Z Insertion of Infusion Device into Superior Vena Cava, Percutaneous Approach (ICD-10-PCS; 2025-07-18)
DX: I13.2 Hypertensive heart and chronic kidney disease with heart failure and with stage 5 chronic kidney disease, or end stage renal disease (principal); G92.8 Other toxic encephalopathy; I50.43 Acute on chronic combined systolic (congestive) and diastolic (congestive) heart failure; J96.21 Acute and chronic respiratory failure with hypoxia; N18.6 End stage renal disease; I25.810 Atherosclerosis of coronary artery bypass graft(s) without angina pectoris; I48.21 Permanent atrial fibrillation; N17.9 Acute kidney failure, unspecified; E87.3 Alkalosis; E87.1 Hypo-osmolality and hyponatremia; I5A Non-ischemic myocardial injury (non-traumatic); I25.10 Atherosclerotic heart disease of native coronary artery without angina pectoris; Z51.5 Encounter for palliative care; J44.9 Chronic obstructive pulmonary disease, unspecified; E78.00 Pure hypercholesterolemia, unspecified; E11.22 Type 2 diabetes mellitus with diabetic chronic kidney disease; F17.200 Nicotine dependence, unspecified, uncomplicated; M10.9 Gout, unspecified; E83.42 Hypomagnesemia; I95.1 Orthostatic hypotension; I27.20 Pulmonary hypertension, unspecified; E87.6 Hypokalemia; D53.9 Nutritional anemia, unspecified; N40.0 Benign prostatic hyperplasia without lower urinary tract symptoms; I49.3 Ventricular premature depolarization; I25.5 Ischemic cardiomyopathy; I25.2 Old myocardial infarction; Z95.2 Presence of prosthetic heart valve; Z90.49 Acquired absence of other specified parts of digestive tract; Z95.5 Presence of coronary angioplasty implant and graft; Z86.73 Personal history of transient ischemic attack (TIA), and cerebral infarction without residual deficits; Z99.81 Dependence on supplemental oxygen; Z79.4 Long term (current) use of insulin; Z79.01 Long term (current) use of anticoagulants; Z79.899 Other long term (current) drug therapy; Z87.19 Personal history of other diseases of the digestive system
CPT/HCPCS: 32555; 36556; 71045; 71046; 74230; 76937; 77001; 80048; 80053; 82042; 82150; 82945; 82962; 83036; 83615; 83735; 83880; 83986; 84157; 84484; 85014; 85018; 85025; 85027; 85730; 86706; 87015; 87070; 87205; 87340; 88112; 88305; 89051; 92526; 92610; 92611; 93005; 93308; 93321; 93325; 93451; 94640; 96374; 97110; 97116; 97162; 97164; 97167; 97530; 97535; 99285; C1769; C1894; G0257; J1939; P9047

== ENCOUNTER 2025-07-23 11:18 | Inpatient (IN) | payer OTHER, SELFPAY ==
--- NOTE | 2025-07-23 10:50 | ADM.HSP ---
Admission - Hospice
History of Present Illness
79 y/o M past medical history of COPD, hypertension, hyperlipidemia, IDDM, HFrEF, A-fib on Eliquis, CVA, CKD stage IIIb, gastric AVMs, CAD s/p CABG/stents, presented to the ER 07/10 for evaluation of shortness of breath. Patient was found to have
acute on chronic hypoxic respiratory failure and progressive JAY in setting of cardiorenal syndrome. He was started on IV diuretics and periodic metolazone. He underwent RHC on 07/16 showing elevated filling pressures. Patient had azotemia from
diuretics requiring transition to HD. Of note, patient was on HD previously. Patient was unable to tolerate dialysis (hypotension, confusion) and opted for comfort measures. He was transitioned to inpatient hospice on 07/23.
Reason for Hospice Admission
progressive acute CHF and JAY
Review of Systems
Unable to obtain full review of systems at this time due to: Acuity
Physical Exam
General: Respiratory Distress
Respiratory: Crackles
Cardiology: Regular Rhythm and S1/S2
GI: Soft
Musculoskeletal: Edema, Left Upper Extremmity and Edema, Right Lower Extremity
Neuro: Awake and Alert
Psych: Calm
Assessment/Medication Plan
Assessment:
Acute on chronic hypoxic respiratory failure due to acute cardiogenic pulmonary edema/ pleural effusion
R pleural effusion s/p thoracentesis 07/11/25
Acute on Chronic HFrEF with progressive cardiorenal JAY
Nonischemic myocardial injury in setting of acute CHF and CKD
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
TME , some confusion noted, likely due to rising BUN
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
Hx of acute Left frontoparietal 05/2025.
Bilateral pleural effusions
Paroxysmal A-fib
Type 2 diabetes mellitus
Orthostatic hypotension
Hyperlipidemia
Anemia, Chronic, macrocytic
Gout
Plan:
Start IP hospice - meds for comfort only
transfer to or private room
d/w hospice service/family
--- NOTE | 2025-07-23 11:41 | PTCARENOTE ---
pt transitioned to inpt hospice. pt on 2l nc. breath sounds diminished. right upper arm iv in place. currently has r ij HD cath. condom cath in place.
--- NOTE | 2025-07-23 14:16 | CM ---
pt transitioned to hospice today. await transfer to . pt's in room.
prev to admisson- pt lived with his and son in a 2 story home with a first floor set up and with 2 steps to enter, he uses a RW and has home O2 at 2L.
--- NOTE | 2025-07-23 20:30 | PTCARENOTE ---
Pt aaox3, resting in bed with no complaints. transition into hospice care today. Transferred to .
--- NOTE | 2025-07-23 21:00 | PTCARENOTE ---
Pt transferred to 2125 from IVU for inpatient hospice. Pt oriented to surroundings. AAOx3, denies c/o pain. on 2L NC. Call moreno within reach.
--- NOTE | 2025-07-23 21:53 | HOSPNOTE ---
Patient admitted to inpatient hospice today. Patient will be seen daily.
[2025-07-23] MEDS: NSS (PRESERVATIVE FREE) 0.5 ML IV (22:18)
[2025-07-23] MEDS: ATIVAN 1 MG IV (22:19)
[2025-07-24 08:32] VITALS: BP 108/61
--- NOTE | 2025-07-24 09:24 | W.PN.HOSP.TC ---
Today's Communication/Plan
-
continue inpatient hospice level of care, maximizing comfort
Assessment / Plan
Assessment / Plan
Assessment:
Acute on chronic hypoxic respiratory failure due to acute cardiogenic pulmonary edema/ pleural effusion
R pleural effusion s/p thoracentesis 07/11/25
Acute on Chronic HFrEF with progressive cardiorenal JAY
Nonischemic myocardial injury in setting of acute CHF and CKD
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
TME , some confusion noted, likely due to rising BUN
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
Hx of acute Left frontoparietal 05/2025.
Bilateral pleural effusions
Paroxysmal A-fib
Type 2 diabetes mellitus
Orthostatic hypotension
Hyperlipidemia
Anemia, Chronic, macrocytic
Gout
Plan:
continue IP hospice - meds for comfort only
anticipate escalation of symptoms over 24-48 hours
d/w hospice service/family
Anticipated Discharge: 24 - 48 hours
Subjective/Interval History
-
Date of Service: July 24, 2025
received 1 dose of Morphine
at present eating breakfast, states he is 'holding steady'
Objective Data
-
Vital Signs:
Vital Signs
Temp Pulse Resp BP Pulse Ox
97.7 F 76 16 108/61 95
07/24/25 08:32 07/24/25 08:32 07/24/25 08:32 07/24/25 08:32 07/24/25 08:32
I&O
07/23/25 07/24/25 07/25/25
06:59 06:59 06:59
Intake Total 320 / 320
Output Total 600 / 600
Balance -280 / -280
Physical Exam
-
General: No Apparent Distress
HEENT: Normocephalic and Atraumatic
Respiratory: Crackles
Cardiac: Regular Rhythm and S1/S2
Musculoskeletal: Edema, Right Lower Extrem and Edema, Left Lower Extrem
Neuro: AO x 3
Psych: Calm
Data Reviewed
-
Total Time Spent with Patient (in minutes): 41
Labs: Labs Reviewed by me
[2025-07-24] MEDS: NSS (PRESERVATIVE FREE) 0.5 ML IV (10:43)
--- NOTE | 2025-07-24 11:26 | HOSPNOTE ---
Patient was short of breath and anxious and was medicated appropriately. Patient had a large bowel movement and a new condom cath was placed. Patient continues to be inpatient hospice for shortness of breath and anxiety requiring IV medications.
Patient does not wish to wear the oxygen. Patient will be seen daily.
--- NOTE | 2025-07-24 11:41 | VATNOTE ---
Called to by primary RN to check IV access. IV site redressed. IV flushed with 20ml NSS with no difficulty.
[2025-07-24] MEDS: MORPHINE SULFATE 2 MG IV (11:47)
[2025-07-24] MEDS: ATIVAN 1 MG IV (11:48)
--- NOTE | 2025-07-24 14:45 | CM ---
CM following re: discharge planning.
Reviewed pt's chart.
Pt is admitted to inpatient hospice with hospice GIP, continue supportive care.
CM is available for emotional support.
[2025-07-24 23:51] VITALS: BP 125/72
--- NOTE | 2025-07-25 02:57 | DOWNTIME ---
There was a [employer] [place] [employer] Downtime on 07/25/2025 from 0100 to 07/25/2025 at 0255. Downtime documentation of patient's care, including medication administrations, has been reconciled in the electronic record per guidelines. Refer to the
patient's paper chart under the miscellaneous tab to see printed paper medication records and downtime forms.
[2025-07-25] MEDS: MORPHINE SULFATE 2 MG IV ×3 (06:23→16:37)
[2025-07-25 08:20] VITALS: BP 104/55
--- NOTE | 2025-07-25 12:23 | W.PN.HOSP.TC ---
Today's Communication/Plan
-
continue inpatient hospice level of care, maximizing comfort
Assessment / Plan
Assessment / Plan
Assessment:
Acute on chronic hypoxic respiratory failure due to acute cardiogenic pulmonary edema/ pleural effusion
R pleural effusion s/p thoracentesis 07/11/25
Acute on Chronic HFrEF with progressive cardiorenal JAY
Nonischemic myocardial injury in setting of acute CHF and CKD
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
TME , some confusion noted, likely due to rising BUN
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
Hx of acute Left frontoparietal 05/2025.
Bilateral pleural effusions
Paroxysmal A-fib
Type 2 diabetes mellitus
Orthostatic hypotension
Hyperlipidemia
Anemia, Chronic, macrocytic
Gout
Plan:
continue IP hospice - meds for comfort only
anticipate escalation of symptoms over 24-48 hours
d/w hospice service/RN - maintain bedrest for safety concerns
Anticipated Discharge: 24 - 48 hours
Subjective/Interval History
-
Date of Service: July 25, 2025
more SOB with tachypnea while sitting in bed
d/w hospice care sales consultant and patient - patient agreeable to stay in bed for safety concerns
Objective Data
-
Vital Signs:
Vital Signs
Temp Pulse Resp BP Pulse Ox
98.4 F 76 14 104/55 80
07/25/25 08:20 07/25/25 08:20 07/25/25 08:20 07/25/25 08:20 07/25/25 08:20
I&O
07/24/25 07/25/25 07/26/25
06:59 06:59 06:59
Intake Total 320 / 320
Output Total 600 / 600 250 / 250
Balance -280 / -280 -250 / -250
Physical Exam
-
General: Respiratory Distress
HEENT: Normocephalic and Atraumatic
Respiratory: Crackles, Decreased Breath Sounds and Other (tachypnea)
Cardiac: Regular Rhythm, S1/S2 and Tachycardic
GI: Soft
Musculoskeletal: No Edema, Edema, Right Lower Extrem and Edema, Left Lower Extrem
Neuro: AO x 3
Psych: Calm
Data Reviewed
-
Total Time Spent with Patient (in minutes): 42
Labs: Labs Reviewed by me
--- NOTE | 2025-07-25 12:44 | HOSPNOTE ---
Patient is extremely short of breath and lungs are course throughout. Patient will need to remain in bed since the patient is becoming weaker and is a high falls risk. Please continue to medicate for anxiety, pain and shortness of breath and
increased secrections. Patient will be seen daily by hospice. Patient continues to be inpatient hospice appropriate for management of above symptoms requiring IV medications. No family was present during my visit.
[2025-07-25] MEDS: ROBINUL 0.2 MG IV (12:48)
[2025-07-25] MEDS: LEVSIN ORAL DROPS 0.125 MG SL (12:48)
[2025-07-25 19:41] VITALS: BP 112/56
[2025-07-26] MEDS: ROBINUL 0.2 MG IV (09:00)
[2025-07-26 09:44] VITALS: BP 126/56
--- NOTE | 2025-07-26 11:13 | HOSPNOTE ---
Metal Precision Machine Assembler visited 79 year old patient to conduct Initial DIRECTOR AIRPORT OPERATIONS Assessment. Patient recently admitted onto Hospice Services and GIP Level of Care with the Primary Diagnosis of Hypertensive Heart Disease with Heart Failure and CKD Stage 1-4.
Nurse reported medications administered and patient is resting comfortably, no concerns. DIRECTOR AIRPORT OPERATIONS greeted patient as DIRECTOR AIRPORT OPERATIONS entered hi room. Patient lying in bed eyes closed, television on, and appeared to be resting. Patient opened his eyes and greeted
DIRECTOR AIRPORT OPERATIONS. Patient reported he feels good, everything is all well & good, sleeps off ad on (problems staying asleep), and denied pain. No family members present during this visit. Patient reported he met spouse Neli at [facility] ad they've been
for 33 years. Patient reported he has 3 children Cassi, Francisca, James and 3 grandchildren. He reported Cassi and James reside near him and Francisca resides in [place]. He reported he can't have a favorite child. He reported
he was employed as a [employer] for 29 years and 6 months, and then got his fdc. He made sure he paid attention to what was happening when he worked as it was important. He loved swimming and is an Eagles fan. He is [employer] and isn't
affiliated with a presybeterian. Patient report he doesn't need anything he's good as gold. Patient alert, pleasant, engaging, and in good spirits. Prayer and Emotional Support Provided
DIRECTOR AIRPORT OPERATIONS contacted patient's spouse eNli to check on her/family, and to provide updates from today's visit. Spouse reported she was terrible with patient's declining for several months and now she and the family are better since he's on Hospice as
don't want patient suffering and in pain. Spouse reported family is very strong, they stick together, and work things out. Family is coping appropriately. Spouse reported she and patient meet through patient's sister as they attended school at
[employer] and he came to pick his sister up from school and she needed a ride home, they've been for 56 years. Spouse reported patient doesn't have a POA and Living Will as they know what patient's wishes are and they're honoring patient's
wishes. 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 He loved working on his tractor, yard maintenance, assembling wooden trains, and reading. Patient has 4 grandchildren. He was raised Restoration however is non-practicing. He believes in
Nature/God, wishes are to be cremated, ashes placed as [facility] to be determined. Bereavement services to be determined. Spouse reported patient has a lot of medications home and wanted to know how to
dispose of it. DIRECTOR AIRPORT OPERATIONS encouraged spouse to ask the Staff Nurse and/or the DHO Nurse to ensure she receives accurate information. DIRECTOR AIRPORT OPERATIONS will inform Staff Nurse and DHO Nurse of spouse medication request for them to provide guidance. Emotional Support
Provided.
Patient meets GIP criteria for SN assessments, management of pain, anxiety, shortness of breath, and increased secretions that could not be managed at home and/or in an Outpatient setting. Discharge planning continues.
DIRECTOR AIRPORT OPERATIONS will provide supportive services once a week while on GIP Level of Care.
--- NOTE | 2025-07-26 11:34 | W.PN.HOSP.TC ---
Today's Communication/Plan
-
continue inpatient hospice level of care, maximizing comfort
Assessment / Plan
Assessment / Plan
Assessment:
Acute on chronic hypoxic respiratory failure due to acute cardiogenic pulmonary edema/ pleural effusion
R pleural effusion s/p thoracentesis 07/11/25
Acute on Chronic HFrEF with progressive cardiorenal JAY
Nonischemic myocardial injury in setting of acute CHF and CKD
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
TME , some confusion noted, likely due to rising BUN
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
Hx of acute Left frontoparietal 05/2025.
Bilateral pleural effusions
Paroxysmal A-fib
Type 2 diabetes mellitus
Orthostatic hypotension
Hyperlipidemia
Anemia, Chronic, macrocytic
Gout
Plan:
continue IP hospice - meds for comfort only
anticipate escalation of symptoms over 24-48 hours
d/w hospice service/RN - maintain bedrest for safety concerns
Anticipated Discharge: 24 - 48 hours
Subjective/Interval History
-
Date of Service: July 26, 2025
received a few more doses of Morphine yesterday
some orthopnea in bed
Objective Data
-
Vital Signs:
Vital Signs
Temp Pulse Resp BP Pulse Ox
97.9 F 77 28 126/56 83
07/26/25 09:44 07/26/25 09:44 07/26/25 09:44 07/26/25 09:44 07/26/25 09:44
I&O
07/25/25 07/26/25 07/27/25
06:59 06:59 06:59
Intake Total 480 / 480 460 / 460
Output Total 250 / 250 450 / 450
Balance -250 / -250 480 / 480 10
Physical Exam
-
General: Respiratory Distress
HEENT: Normocephalic and Atraumatic
Respiratory: Crackles
Cardiac: Regular Rhythm and S1/S2
Musculoskeletal: Edema, Right Lower Extrem and Edema, Left Lower Extrem
Neuro: AO x 3
Psych: Calm
Data Reviewed
-
Total Time Spent with Patient (in minutes): 42
Labs: Labs Reviewed by me
--- NOTE | 2025-07-26 12:30 | HOSPNOTE ---
Communication Studies Professor visited patient in room 2126. Patient greeted experiential therapist with a smile and reported no pain. Patient is a 79 year old male with a history of COPD and is now on Hospice. Communication Studies Professor tried to show active listening in asking patient for a brief life
review and patient said he was not willing to share. Patient said he was of a cheondoism estephania and a prayer would be sufficient. Patient family was not present at this visit. Communication Studies Professor provided spiritual support through presence and prayer. No
further visits will be needed at this time unless requested.
--- NOTE | 2025-07-26 13:12 | HOSPNOTE ---
Patient is in bed appears weaker today then yesterday, lungs are course and patient was medicated. Encouraged that patient be medicated prior to care or repositioning. Patient continues to be inpatient hospice for management of increased secretions,
shortness of breath and anxiety. Patient will be seen daily.
[2025-07-26 20:22] VITALS: BP 110/68
[2025-07-27] MEDS: NSS (PRESERVATIVE FREE) 0.5 ML IV ×4 (04:16→22:03)
[2025-07-27] MEDS: ATIVAN 1 MG IV ×4 (04:16→22:03)
[2025-07-27 07:10] VITALS: BP 137/60
--- NOTE | 2025-07-27 10:14 | HOSPNOTE ---
Patient was sleeping during my visit, patient does have some increased work of breathing and I spoke to nurse to please medicate. I spoke with spouse who had questions about disposing of medications at home. She does realize that the patient is
declining and is requiring IV medications for anxiety and shortness of breath. The patient continues to be inpatient appropriate for management of shortness of breath and anxiety requiring IV medications. The patient will be seen daily.
[2025-07-27] MEDS: ROBINUL 0.2 MG IV ×2 (11:25→19:32)
--- NOTE | 2025-07-27 12:07 | W.PN.HOSP.TC ---
Today's Communication/Plan
-
continue inpatient hospice level of care, maximizing comfort
Assessment / Plan
Assessment / Plan
Assessment:
Acute on chronic hypoxic respiratory failure due to acute cardiogenic pulmonary edema/ pleural effusion
R pleural effusion s/p thoracentesis 07/11/25
Acute on Chronic HFrEF with progressive cardiorenal JAY
Nonischemic myocardial injury in setting of acute CHF and CKD
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
TME , some confusion noted, likely due to rising BUN
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
Hx of acute Left frontoparietal 05/2025.
Bilateral pleural effusions
Paroxysmal A-fib
Type 2 diabetes mellitus
Orthostatic hypotension
Hyperlipidemia
Anemia, Chronic, macrocytic
Gout
Plan:
continue IP hospice - meds for comfort only
anticipate escalation of symptoms over 24-48 hours
d/w hospice service/RN - maintain bedrest for safety concerns
Anticipated Discharge: 24 - 48 hours
Subjective/Interval History
-
Date of Service: July 27, 2025
received 2 doses of IV ativan for agitation (climbing out of bed despite bedrest orders)
Objective Data
-
Vital Signs:
Vital Signs
Temp Pulse Resp BP Pulse Ox
98.1 F 76 16 137/60 94
07/27/25 07:10 07/27/25 07:10 07/27/25 07:10 07/27/25 07:10 07/27/25 07:10
I&O
07/26/25 07/27/25 07/28/25
06:59 06:59 06:59
Intake Total 480 / 480 1420 / 1420
Output Total 1850 / 1850
Balance 480 / 480 -430 / -430
Physical Exam
-
General: Respiratory Distress
HEENT: Normocephalic and Atraumatic
Respiratory: Crackles and Decreased Breath Sounds; Negative Wheezes
Cardiac: Regular Rhythm and S1/S2
Genito-urinary: No Costovertebral Tender
Neuro: Awake
Psych: Calm
Data Reviewed
-
Total Time Spent with Patient (in minutes): 42
Labs: Labs Reviewed by me
--- NOTE | 2025-07-27 15:21 | CM ---
Pt continues to be inpatient appropriate for hospice per hospice nurse.
No change in plan.
[2025-07-27] MEDS: MORPHINE SULFATE 2 MG IV ×3 (17:41→21:58)
[2025-07-27 22:47] VITALS: BP 142/64
[2025-07-28] MEDS: MORPHINE SULFATE 2 MG IV ×4 (00:10→09:43)
[2025-07-28] MEDS: ROBINUL 0.2 MG IV ×2 (01:28→09:43)
[2025-07-28] MEDS: MORPHINE 100 IV (03:07)
[2025-07-28 07:10] VITALS: BP 69/37
--- NOTE | 2025-07-28 12:23 | W.PN.HOSP.TC ---
Today's Communication/Plan
-
continue inpatient hospice level of care, maximizing comfort
Assessment / Plan
Assessment / Plan
Assessment:
Acute on chronic hypoxic respiratory failure due to acute cardiogenic pulmonary edema/ pleural effusion
R pleural effusion s/p thoracentesis 07/11/25
Acute on Chronic HFrEF with progressive cardiorenal JAY
Nonischemic myocardial injury in setting of acute CHF and CKD
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
TME , some confusion noted, likely due to rising BUN
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
Hx of acute Left frontoparietal 05/2025.
Bilateral pleural effusions
Paroxysmal A-fib
Type 2 diabetes mellitus
Orthostatic hypotension
Hyperlipidemia
Anemia, Chronic, macrocytic
Gout
Plan:
continue IP hospice - meds for comfort only
d/w hospice service/RN - maintain bedrest for safety concerns
d/w family that patient is progressive more quickly in last 24 hours
Anticipated Discharge: Within 24 hours
Subjective/Interval History
-
Date of Service: July 28, 2025
transitioned to morphine drip last evening along with IV Ativan given
more somnolent
Objective Data
-
Vital Signs:
Vital Signs
Temp Pulse Resp BP Pulse Ox
97.8 F 77 18 69/37 82
07/28/25 07:10 07/28/25 07:10 07/28/25 07:10 07/28/25 07:10 07/28/25 08:00
I&O
07/27/25 07/28/25 07/29/25
06:59 06:59 06:59
Intake Total 1420 / 1420 240 / 240
Output Total 1850 / 1850 725 / 725
Balance -430 / -430 -485 / -485
Physical Exam
-
General: Respiratory Distress and Appears in Distress
HEENT: Normocephalic and Atraumatic
Respiratory: Crackles; Negative Wheezes
Cardiac: Regular Rhythm and S1/S2
Neuro: Sedated
Psych: Calm
Data Reviewed
-
Total Time Spent with Patient (in minutes): 41
Labs: Labs Reviewed by me
--- NOTE | 2025-07-28 12:46 | W.PN.DEATH ---
Pronouncement of
-
Called to see patient to pronounce.
No spontaneous heart tones or respirations noted.
Patient not responsive to verbal stimuli.
Patient is pronounced .
Time of : 12:30
Date of : 07/28/25
Cause of : Acute on chronic hypoxic respiratory failure due to acute cardiogenic pulmonary edema, JAY, cardiorenal in setting of CKD stage 3b
Family Notified: Yes
--- NOTE | 2025-07-28 12:47 | W.DCSUMMARY ---
Discharge Summary
Discharge Data
Date of Admission: 07/23/25
Date of Discharge: 07/28/25
-
Pending Results: No
Hospital Course
79 y/o M past medical history of COPD, hypertension, hyperlipidemia, IDDM, HFrEF, A-fib on Eliquis, CVA, CKD stage IIIb, gastric AVMs, CAD s/p CABG/stents, transitioned to inpatient hospice on 07/23 for acute on chronic hypoxic respiratory failure
and progressive JAY in setting of cardiorenal syndrome. Patient did not improve with diuretics and could not tolerate dialysis. He was made comfortable with morphine and Ativan eventually requiring a morphine drip. He was pronounced at
1230pm on 07/28/25. Family was notified.
Discharge Plan
-
Patient Disposition:
Referrals:
UNKNOWN,NO INTERVIEW [Family Provider]
Discharge Date and Time
Print Language: ESTONIAN
== END 2025-07-28 12:30 | disposition expired | DRG 951 ==
LOC: 2 NORTH 11:18
PROVIDERS: ADMITTING PHYSICIAN Internal Medicine
DX: Z51.5 Encounter for palliative care (principal); N18.6 End stage renal disease; J96.21 Acute and chronic respiratory failure with hypoxia; G92.8 Other toxic encephalopathy; I50.22 Chronic systolic (congestive) heart failure; N17.9 Acute kidney failure, unspecified; I13.2 Hypertensive heart and chronic kidney disease with heart failure and with stage 5 chronic kidney disease, or end stage renal disease; I5A Non-ischemic myocardial injury (non-traumatic); E78.5 Hyperlipidemia, unspecified; D53.9 Nutritional anemia, unspecified; E11.22 Type 2 diabetes mellitus with diabetic chronic kidney disease; I25.10 Atherosclerotic heart disease of native coronary artery without angina pectoris; I48.0 Paroxysmal atrial fibrillation; I95.1 Orthostatic hypotension; J44.9 Chronic obstructive pulmonary disease, unspecified; M10.9 Gout, unspecified; Z79.01 Long term (current) use of anticoagulants; Z79.4 Long term (current) use of insulin; Z95.1 Presence of aortocoronary bypass graft; Z99.2 Dependence on renal dialysis